=== PATIENT | female | born 1955 | race Caucasian/White ===

== ENCOUNTER 2024-10-18 18:56 | Emergency (ER) | payer MEDICARE, MEDICAID, SELFPAY ==
[2024-10-18 19:00] VITALS: BP 132/72; PULSE 70; RESP 16; TEMP 36.8; O2SAT 99
[2024-10-18 19:12] VITALS: BP 132/72; PULSE 72; RESP 16; TEMP 36.8; O2SAT 100
[2024-10-18 19:52] VITALS: BP 110/67; PULSE 62; RESP 16; TEMP 36.9; O2SAT 99
--- NOTE | 2024-10-18 20:58 | ED.GENADULT ---
HPI - General Adult General Chief complaint: Unspecified Stated complaint: CLOGGED URINARY CATHETER Time Seen by Provider: 10/18/24 19:35 History of Present Illness HPI narrative: patient is a 69-year-old female who presents emergency department with chief complaint of clogged pulling. Patient reports that she has a suprapubic catheter reports that it occasionally gets clogged patient reports she flushes of daily and reports that today she had a lot of sediment and would not drain. The patient reports he has discomfort feeling as though her bladder is full of urine. Related Data Allergies Allergy/AdvReac Type Severity Reaction Status Date / Time codeine Allergy Unknown rash Verified 02/07/19 13:01 Review of Systems Review of Systems: A 10 system review of systems was completed on the patient and is negative except for what is stated in the HPI. Nursing and ancillary documentation was reviewed. [facility] Past Medical History Medical History Reis catheter in place Pneumonia HTN (hypertension) Diabetes mellitus Surgical History Surgical History Hx of appendectomy Social History Social History Smoking status: Former smoker Exam Narrative: GENERAL: Well-appearing, well-nourished, and in no acute distress. HEAD: Normocephalic, atraumatic. EYES: PERRLA and EOMI. ENT: Nares clear, no rhinorrhea or epistaxis. Mucous membranes moist. NECK: Supple. CHEST: Clear to auscultation. No respiratory distress. HEART: Regular rate and rhythm. No murmur heard. Normal peripheral pulses. ABDOMEN: Soft, nontender, nondistended, normal active bowel sounds. Suprapubic catheter in place not draining a urine EXTREMITIES: Normal range of motion. No edema. SKIN: Warm, dry, no rash. NEURO: No focal deficits. Alert and oriented x3. PSYCH: Normal mood and affect. Course Vital Signs Vital signs: Vital Signs Temperature 36.8 C 10/18/24 19:00 Pulse Rate 70 10/18/24 19:00 Respiratory Rate 16 10/18/24 19:00 Blood Pressure 132/72 10/18/24 19:00 Pulse Oximetry 99 10/18/24 19:00 Oxygen Delivery Room Air 10/18/24 19:00 Temperature 36.9 C 10/18/24 19:52 Pulse Rate 62 10/18/24 19:52 Respiratory Rate 16 10/18/24 19:52 Blood Pressure 110/67 10/18/24 19:52 Pulse Oximetry 99 10/18/24 19:52 Oxygen Delivery Room Air 10/18/24 19:00 Procedures Catheter Insertion (Urinary) Urinary Catheter 1: Date of insertion: 10/18/24 Time of insertion: 21:00 Reason for placing: Yes Reason for placing indwelling catheter: Acute urinary retention Patient has the following: other ( suprapubic catheter) Antiseptic solution prep: Povidone-Iodine Topical anesthesia used: No Catheter type/location: Suprapubic Size (Upper Sorbian): 12 Catheter balloon size (mL): 10 Catheter balloon amount: 10 Results: successfully catheterized-immediate flow Procedure performed: without complications Medical Decision Making MDM Narrative Medical decision making narrative: differential diagnosis includes urinary catheter obstruction. The Reis catheter was attempted to be flushed without success. Reis catheter was exchanged by myself Vital Signs Vital Signs: Vital Signs Temperature 36.8 C 10/18/24 19:00 Pulse Rate 70 10/18/24 19:00 Respiratory Rate 16 10/18/24 19:00 Blood Pressure 132/72 10/18/24 19:00 Pulse Oximetry 99 10/18/24 19:00 Oxygen Delivery Room Air 10/18/24 19:00 Temperature 36.9 C 10/18/24 19:52 Pulse Rate 62 10/18/24 19:52 Respiratory Rate 16 10/18/24 19:52 Blood Pressure 110/67 10/18/24 19:52 Pulse Oximetry 99 10/18/24 19:52 Oxygen Delivery Room Air 10/18/24 19:00 Discharge Plan Discharge Clinical Impression: Obstructed suprapubic catheter Qualifiers: Encounter type: initial encounter Qualified Code(s): T83.090A - Other mechanical complication of cystostomy catheter, initial encounter Patient Disposition: Home, Self-Care Condition: Stable Instructions: Antibiotic Form, How to Care for Your Suprapubic Catheter (DC) Patient Language: Belizean Follow-up/Referrals: Elise,Elva Cha DO [Primary Care Provider] - Time of Disposition: 21:02
[2024-10-19 01:49] VITALS: BP 113/75; PULSE 65; RESP 17; O2SAT 98
[2024-10-19 06:36] VITALS: BP 125/83; PULSE 70; RESP 19; O2SAT 98
--- NOTE | 2024-10-19 06:45 | PC.NURSE ---
This RN has been checking on pt hourly. pt resting at this time
== END 2024-10-19 09:50 | disposition home or self-care (01) ==
PROVIDERS: Emergency Provider Emergency Medicine; PCP Student in an Organized Health Care Education/Training Program
DX: T83.090A Other mechanical complication of cystostomy catheter, initial encounter (principal); I10 Essential (primary) hypertension; E11.9 Type 2 diabetes mellitus without complications; Z87.01 Personal history of pneumonia (recurrent); Z87.891 Personal history of nicotine dependence; Y84.6 Urinary catheterization as the cause of abnormal reaction of the patient, or of later complication, without mention of misadventure at the time of the procedure
CPT/HCPCS: 51702; 51705; 99283

== ENCOUNTER 2024-10-24 16:54 | Emergency (ER) | payer MEDICARE, MEDICAID, SELFPAY ==
[2024-10-24 17:09] VITALS: BP 154/72; PULSE 77; RESP 16; TEMP 36.6; O2SAT 100
--- NOTE | 2024-10-24 19:17 | ED.FEMALEGU ---
HPI - Female Genitourinary General Chief complaint: Urogenital-Female Stated complaint: Clogged suprapubic catheter-pain at insertion site Time Seen by Provider: 10/24/24 18:28 History of Present Illness HPI Narrative: 69-year-old pleasant female with a past medical history including chronic suprapubic catheter. She presents to the emergency department today with a chief complaint of clot catheter. She states that the catheter has been placed for some time and is not new but she did have exchange several days ago in this emergency department. She reports that she previously had higher size including 18 [place]er catheters but was downsized to a 12 [place] catheter several months ago. Patient denies any fever, chills, abdominal pain, back pain. States she does not feel like she is having urinary infection but states that her bladder feels full with a clogged catheter today. Related Data Allergies Allergy/AdvReac Type Severity Reaction Status Date / Time codeine Allergy Unknown rash Verified 02/07/19 13:01 Review of Systems Review of Systems: As reviewed [facility] HPI [facility] Past Medical History Medical History Reis catheter in place Pneumonia HTN (hypertension) Diabetes mellitus Surgical History Surgical History Hx of appendectomy Social History Social History Smoking status: Former smoker Exam Narrative: GENERAL: [Well-appearing, well-nourished, and in no acute distress.] HEAD: [Normocephalic, atraumatic.] EYES: [PERRLA and EOMI.] ENT: Nares clear, no rhinorrhea or epistaxis. Mucous membranes moist. NECK: Supple. CHEST: [Clear to auscultation. No respiratory distress.] HEART: [Regular rate and rhythm]. No murmur heard. [Normal peripheral pulses.] ABDOMEN: [Soft, nondistended], [nontender], [No rigidity or guarding] suprapubic catheter in place, not draining any urine at this time. No overlying skin changes erythema, no tenderness, induration or skin breakdown. EXTREMITIES: Normal range of motion. [No edema.] SKIN: Warm, dry, no rash. NEURO: [No focal deficits]. Alert and oriented [x3.] PSYCH: [Normal mood and affect.] Course Vital Signs Vital signs: Vital Signs Temperature 36.6 C 10/24/24 17:09 Pulse Rate 77 10/24/24 17:09 Respiratory Rate 16 10/24/24 17:09 Blood Pressure 154/72 H 10/24/24 17:09 Pulse Oximetry 100 10/24/24 17:09 Oxygen Delivery Room Air 10/24/24 17:09 Temperature 36.6 C 10/24/24 17:09 Pulse Rate 77 10/24/24 17:09 Respiratory Rate 16 10/24/24 17:09 Blood Pressure 154/72 H 10/24/24 17:09 Pulse Oximetry 100 10/24/24 17:09 Oxygen Delivery Room Air 10/24/24 17:09 Procedures Catheter Insertion (Urinary) Urinary Catheter 1: Date of insertion: 10/24/24 Time of insertion: 20:00 Reason for placing: Yes (Clogged previous SP cath) Reason for placing indwelling catheter: Acute urinary retention Patient has the following: other (Suprapubic catheter) Bladder scan/ultrasound used before catheterization: No Topical anesthesia used: No Catheter type/location: Suprapubic Size ([place] Islander): 14 Catheter balloon size (mL): 10 Catheter balloon amount: 10 Results: successfully catheterized-immediate flow Procedure performed: without complications MDM - Female Genitourinary MDM Narrative Medical decision making narrative: 69-year-old female with history of chronic indwelling suprapubic catheter. Patient presents today with a clogged catheter. She has a 12 [place]er catheter placed but had larger sizes including 18 [place] previously without any issues. She states her catheters are being clogged despite flushes at home. She lives at home and her daughter takes good care of her. She denies any UTI symptoms such as fever, chills, back pain or any other concerns. Her examination is reassuring. She has normal vital signs. Reis catheter was attempted to be flushed without success so we replaced at bedside. I replaced the catheter myself under sterile technique and used a 14 [place]er catheter with good insertion and return of clear fluid. Urinalysis was sent and consistent with a urinary tract infection. Culture was sent and she was given a dose of Bactrim prior to discharge with a short course of Bactrim p.o.. Patient stable and safe for discharge at this time with outpatient follow-up. Medical Records Attestation: I reviewed the patient's medical records. Lab Data Attestation: I reviewed the patient's lab results. Discharge Plan Discharge Clinical Impression: Obstructed suprapubic catheter, Urinary tract infection Patient Disposition: Home, Self-Care Condition: Stable Instructions: Antibiotic Form, Urinary Tract Infection in Women (ED) Additional Instructions: Weeks change of catheter with a slightly larger one including a 14 [place]er catheter that was placed easily. You do have a urinary infection which will treat with oral antibiotics. Follow-up with your regular outpatient primary care provider. Return with any new or worsening concerns. Patient Language: Chilean Prescriptions: New sulfamethoxazole-trimethoprim [Bactrim DS] 800-160 mg tablet 1 tablet PO Q12H Qty: 14 0RF Follow-up/Referrals: Elise,Elva Cha DO [Primary Care Provider] - Time of Disposition: 20:27
[2024-10-24 20:18] LABS: Add Urine Microscopic? YES; Appearance Urine Cloudy (Clear); Bacteria Urine 4+ /hpf; Bilirubin Urine Negative (Negative); Blood Urine 2+ (Negative); Color Urine Yellow (Yellow); Glucose Urine UA Negative (Negative); Ketones Urine Negative (Negative); Leukocyte Esterase Ur 2+ LEU/UL (Negative); Nitrate Urine Negative (Negative); Non Pathogenic Casts 0-2; Protein Urine Trace mg/dL (Negative); Specific Grav Ur 1.006 (1.001-1.035); Squamous Epithelial Cell Urine None Seen /hpf (Few); WBC Urine 21-50 /hpf (0-3)
[2024-10-24] MEDS: SULFAMETHOXAZOLE/TRIMETHOPRIM 800/160 MG DS TABLET 1 TAB PO (20:53)
[2024-10-24 20:57] VITALS: BP 146/70; PULSE 74; RESP 16; TEMP 36.7; O2SAT 99
[2024-10-25 00:57] VITALS: BP 142/68; PULSE 80; RESP 18; TEMP 37; O2SAT 100
[2024-10-25 09:24] VITALS: BP 123/62; PULSE 64; RESP 16; TEMP 37.1; O2SAT 95
== END 2024-10-25 10:49 | disposition home or self-care (01) ==
PROVIDERS: Emergency Provider Student in an Organized Health Care Education/Training Program; PCP Student in an Organized Health Care Education/Training Program
DX: T83.090A Other mechanical complication of cystostomy catheter, initial encounter (principal); N39.0 Urinary tract infection, site not specified; I10 Essential (primary) hypertension; E11.9 Type 2 diabetes mellitus without complications; Z87.01 Personal history of pneumonia (recurrent); Z87.891 Personal history of nicotine dependence; Y84.6 Urinary catheterization as the cause of abnormal reaction of the patient, or of later complication, without mention of misadventure at the time of the procedure
CPT/HCPCS: 51700; 51705; 81001; 87086; 99283; A9270

== ENCOUNTER 2024-12-04 17:47 | Emergency (ER) | payer MEDICARE, MEDICAID, SELFPAY ==
[2024-12-04 17:49] VITALS: BP 146/82; PULSE 85; RESP 17; TEMP 36.4; O2SAT 98
--- NOTE | 2024-12-04 17:54 | ED_ITS ---
HPI - Female Genitourinary General Chief complaint: Urogenital-Female Stated complaint: catheter problems Time Seen by Provider: 12/04/24 17:48 Source: patient Mode of arrival: EMS Limitations: no limitations History of Present Illness HPI Narrative: Patient scheduled to change her Reis catheter tomorrow. Patient normally change her Reis catheter every 2 weeks. Patient telling me that the catheter is not draining since mottler machine feeder. Was lower abdominal distension. She denies any fever or chills or nausea or vomiting Related Data Allergies Allergy/AdvReac Type Severity Reaction Status Date / Time codeine Allergy Unknown rash Verified 12/04/24 17:55 Review of Systems Review of Systems: All systems reviewed & are unremarkable except as noted in HPI and below PMFSH Past Medical History Medical History Reis catheter in place Pneumonia HTN (hypertension) Diabetes mellitus Surgical History Surgical History Hx of appendectomy Social History Social History Smoking status: Former smoker Exam Narrative: General appearance: Well-developed, well-nourished, does not look toxic Skin: Normal color Chest and respiratory: Airway patent, no respiratory distress, no accessory m uscle use Heart: Regular rate/rhythm Abdomen: Soft, nontender, no organomegaly, quiet bowel sounds suprapubic catheter in place, no drainage, no erythema, no rash. V Neurologic: Alert and oriented ?3, SET UP OPERATOR TOOL is normal as tested, no gross motor deficit Course Vital Signs Vital signs: Vital Signs Temperature 36.4 C 12/04/24 17:49 Pulse Rate 85 12/04/24 17:49 Respiratory Rate 17 12/04/24 17:49 Blood Pressure 146/82 H 12/04/24 17:49 Pulse Oximetry 98 12/04/24 17:49 Oxygen Delivery Room Air 12/04/24 17:49 Temperature 36.4 C 12/04/24 17:49 Pulse Rate 85 12/04/24 17:49 Respiratory Rate 17 12/04/24 17:49 Blood Pressure 146/82 H 12/04/24 17:49 Pulse Oximetry 98 12/04/24 17:49 Oxygen Delivery Room Air 12/04/24 17:49 Procedures Catheter Insertion (Urinary) Urinary Catheter 1: Date of insertion: 12/04/24 Time of insertion: 18:05 Reason for placing indwelling catheter: Acute urinary retention Bladder scan/ultrasound used before catheterization: No Topical anesthesia used: No Catheter type/location: Suprapubic Size (Romanian): 16 Catheter balloon amount: 10 Results: successfully catheterized-immediate flow Procedure performed: without complications Complications: None MDM - Female Genitourinary MDM Narrative Medical decision making narrative: Patient is scheduled for Reis catheter replacement tomorrow, patient is telling me that she have too much segment which causing intermittent obstruction. 16 gauge Reis catheter placed without any complication. 600 cc urine output patient feels much better compared to on arrival Differential Diagnosis Differential diagnosis: Likely other (Reis catheter obstruction) Critical Care Time Critical Care Time Critical Care Time: No Discharge Plan Discharge Clinical Impression: Acute urinary retention, Urinary catheter (Reis) change required Patient Disposition: [facility] Living Condition: Improved Instructions: Reis Catheter Placement and Care (ED), Acute Urinary Retention in Women (ED) Additional Instructions: Return if symptoms are worsening , call your family physician for appointment, take Tylenol as as needed for aches and pain, continue home medications. Patient Language: Lithuanian Prescriptions: No Action sulfamethoxazole-trimethoprim [Bactrim DS] 800-160 mg tablet 1 tablet PO Q12H Qty: 14 0RF Follow-up/Referrals: Elise,Elva Cha DO [Primary Care Provider] -
--- OUTSIDE RECORDS SUMMARY | 2024-12-04 18:04 | XMS_ITS | Encounter Summary ---
Author Organization [facility] Address [address] [place] [address] Phone Care Team Providers Care Education Adviser Name Role Phone Victoriano Reid MD Primary Care Provider [phone] Malissa Joe RN Unavailable Unavailable Malissa Joe RN Unavailable Unavailable Elva Olivares DO Primary Care Provider [phone] [place] CHIEF QUALITY OFFICER Unavailable Cabrera Smallwood MD Unavailable [phone] Reason for Visit * Reason Comments Medication Refill Encounter Details Date Type Department Care Team (Late st Contact Info) Description 11/04/2022 Refill [facility] - [facility] [address] [place] [address] Victoriano Reid MD [address] [place] [address] Medication Refill Social History Tobacco Use Types Packs/Day Years Used Date Smoking Tobacco: Every Day Cigarettes Smokeless Tobacco: Never Alcohol Use Standard Drinks/Week Comments Not Currently 0 (1 standard drink = 0.6 oz pur e alcohol) PHQ-2 Answer Date Recorded Total Score - Questions 1-9 0 12/14 Education Answer Date Recorded What is the highest level of school you have completed or the highest degree you have received? GED or equivalent 12/2020 Sexually Active Control Partners Comments Not Currently Comments No Sex and Gender Information Value Date Recorded Sex Assigned at Not on file Legal Sex Female 5:08 PM CDT Gender Identity Not on file Sexual Orientation Not on file documented as of this encounter Miscellaneous Notes * Telephone Encounter - Camilla Hauser RN - 11/06/2022 8:27 AM CST Medication failed the protocol, provider to review and approve the medication order if appropriate. Requested Prescriptions Pending Prescriptions Disp Refills gabapentin (NEURONTIN) 300 MG Capsule [Pharmacy Med Name: GABAPENTIN 300MG CAPSULES] 180 Capsule Sig: TAKE 2 CAPSULES BY MOUTH EVERY 8 HOURS Not Delegated - Anticonvulsants Excluding Benzodiazepines Protocol Failed - 11/04/2022 3:44 PM Failed - This refill cannot be delegated Passed - Visit with relevant provider in past 12 months or upcoming 90 days Recent Visits Date Type Provider Dept 09/19/22 Office Visit Victoriano Reid MD [facility] 01/05/22 Office Visit Nia Abbott, SUZY [facility] Showing recent visits within past 365 days and meeting all other requirements Future Appointments No visits were found meeting these conditions. Showing future appointments within next 90 days and meeting all other requirements PARAMEDIC documented in this encounter Plan of Treatment Upcoming Encounters Date Type Department Care Team (Late st Contact Info) Description 01/02/2025 10:30 AM CDT Procedure Visit [facility] [address] [place] [address] Cabrera Yadav MD [address] [facility] [address] [place] [address] 01/09/2025 1:00 PM CDT Office Visit [facility] - [facility] - [place] [address] [facility] [place] [address] Elva Olivares, DO 2 [facility] 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) documented in this encounter Additional Health Concerns Assessment Noted Time PHQ-9 Depression Total Score: 0 08/15/20 21 10:00 AM CDT documented as of this encounter Care Teams Education Adviser Relationship Specialty Start Date End Date Victoriano Reid MD PCP - General Family Medicine 06/19/19 06/29/24 Elva Olivares DO 2 [facility] [address] [place] [address] PCP - General Family Medicine 07/01/24 Malissa Joe RN [place] Nurse Emergency Nurse 12/03/23 12/03/23 Malissa Joe RN [place] Nurse Emergency Nurse 12/05/23 12/05/23 [place], CHIEF QUALITY OFFICER [place] Emergency Nurse 11/03/24 Cabrera Yadav MD [address] [facility] [address] [place] [address] Consulting Physician Urology 11/07/24 documented as of this encounter
--- OUTSIDE RECORDS SUMMARY | 2024-12-04 18:04 | XMS_ITS | Encounter Summary ---
Author Organization [facility] Address [address] [place] [address] Phone Care Team Providers Care Line And Frame Poler Name Role Phone Victoriano Reid MD Primary Care Provider [phone] Malissa Joe RN Unavailable Unavailable Malissa Joe RN Unavailable Unavailable Elva Olivares DO Primary Care Provider [phone] [place] BATHROOM TILING PROFESSIONAL Unavailable Cabrera Smallwood MD Unavailable [phone] Reason for Visit * Reason Comments Medication Refill Encounter Details Date Type Department Care Team (Late st Contact Info) Description 08/28/2022 Refill [facility] - Family Medicine [facility] [address] [place] [address] Victoriano Reid MD [address] [place] [address] Medication Refill Social History Tobacco Use Types [...] on file Sexual Orientation Not on file COVID-19 Exposure Response Date Recorded In the last 10 days, have yo u been in contact with someone who was confirmed or suspected to have Coronavirus/COVID-19? No / Unsure 08/13/2022 12:47 PM CDT documented as of this encounter Miscellaneous Notes * Telephone Encounter - Yara Peacock RN - 08/28/2022 11:03 AM MANAGER FILE Medication failed the protocol, provider to review and approve the medication order if appropriate. Requested Prescriptions Pending Prescriptions Disp Refills Benzonatate 200 MG Capsule [Pharmacy Med Name: BENZONATATE 200MG CAPSULES] 60 Capsule Sig: Take 1 Capsule by mouth every 4 hours as needed for Cough. Not Delegated - Anti-Tussives Protocol Failed - 08/28/2022 10:27 AM Failed - This refill cannot be delegated Passed - Visit with relevant provider in past 12 months or upcoming 90 days Recent Visits Date Type Provider Dept 01/05/22 Office Visit Nia Abbott PAC [facility] [place] Showing recent visits within past 365 days and meeting all other requirements Future Appointments Date Type Provider Dept 08/29/22 Appointment Victoriano Reid MD [facility] [place] Showing future appointments within next 90 days and meeting all other requirements GER FILE documented in this encounter Plan of Treatment Upcoming Encounters Date Type Department Care Team (Late st Contact Info) Description 01/02/2025 10:30 AM CDT Procedure Visit [facility] [address] [place] [address] Cabrera Yadav MD [address], [address] [address] 01/09/2025 1:00 PM CDT Office Visit [facility] - [facility] - [place] [address] [place] [address] Elva Olviares DO [address] [facility] [address] [place] [address] documented as of this encounter Visit Diagnoses Not on filedocumented in this encounter Additional Health Concerns Assessment Noted Time PHQ-9 Depression Total Score: 0 08/15/20 21 10:00 AM CDT documented as of this encounter Care Teams Line And Frame Poler Relationship Specialty Start Date End Date Victoriano Reid MD PCP - General Family Medicine 06/19/19 06/29/24 Elva Olivares DO [address] [facility] [address] [place] [address] PCP - General Family Medicine 07/01/24 Malissa Joe, RN [place] Nurse Local Hazmat Driver 12/03/23 12/03/23 Malissa Joe, RN [place] Nurse Local Hazmat Driver 12/05/23 12/05/23 [place], BATHROOM TILING PROFESSIONAL [place] Home Service Director Local Hazmat Driver 11/03/24 Cabrera Yadav MD [address] [address] Consulting Physician Urology 11/07/24 documented as of this encounter
--- OUTSIDE RECORDS SUMMARY | 2024-12-04 18:04 | XMS_ITS | Encounter Summary ---
Author Organization [facility] Address [address] [place] [address] Phone Care Team Providers Care Order Desk Caller Name Role Phone Victoriano Reid MD Primary Care Provider [phone] Elva Olivares DO Primary Care Provider [phone] [facility] Unavailable Cabrera Smallwood MD Unavailable [phone] Reason for Visit * Reason Comments Medication Refill Encounter Details Date Type Department Care Team (Late Contact Info) Description 04/18/2024 Refill [facility] - Family Medicine [facility] [address] [place] [address] Victoriano Reid MD [address] [place] [address] Medication Refill Social History Tobacco Use Types Packs/Day Years Used Date Smoking Tobacco: Every Day Cigarettes 2 15 Smokeless Tobacco: Never Alcohol Use Standard Drinks/Week Comments Not Currently 0 (1 standard drink = 0.6 oz pur e alcohol) [facility] Utilities Answer Date Recorded In the past 12 months has [employer] electric, gas, oil, or water company threatened to shut off services in your home? Yes 04/15/2024 Social Connection and Isolat ion Panel [NHANES] Answer Date Recorded In a typical week, how many times do you talk on the phone with family, friends, or neighbors? More than three times a week 04/15/2024 How often do you get togethe r with friends or relatives? Twice a week 04/15/2024 How often do you attend chur ch or anabaptist services? Never 04/15/2024 Do you belong to any clubs o r organizations such as yarsanism groups, unions, fraternal or athletic groups, or school groups? No 04/15/2024 How often do you attend meet ings of the clubs or organizations you belong to? Never 04/15/2024 Are you , , di vorced, , never , or living with a partner? 04/15/2024 AUDIT-C Answer Date Recorded Q1: How often do you have a drink containing alcohol? Never 04/15/2024 Q2: How many drinks containi ng alcohol do you have on a typical day when you are drinking? Patient does not drink Q3: How often do you have si x or more drinks on one occasion? Never 04/15/2024 Overall Financial Resource Strain (CARDIA) Answe r Date Recorded How hard is it for you to pa y for the very basics like food, housing, medical care, and heating? Patient declined 04/15/2024 PHQ-2 Answer Date Recorded Total Score - Questions 1-9 0 12/14 [facility] - Occupational Stress Questionnaire Answer Date Recorded Do you feel stress - tense, restless, nervous, or anxious, or unable to sleep at night because your mind is troubled all the time - these days? Only a little 04/15/2024 Exercise Vital Sign Answer Date Recorde d On average, how many days pe r week do you engage in moderate to strenuous exercise (like a brisk walk)? 0 days 04/15/2024 On average, how many minutes do you engage in exercise at this level? 0 min 04/15/2024 Hunger Vital Sign Answer Date Recorded Within the past 12 months, y ou worried that your food would run out before you got the money to buy more. Never true Within the past 12 months, t he food you bought just didn't last and you didn't have money to get more. Sometimes true 11/2023 PRAPARE - Transportation Answer Date Re corded In the past 12 months, has l ack of transportation kept you from medical appointments or from getting medications? Yes 11/2023 In the past 12 months, has l ack of transportation kept you from meetings, work, or from getting things needed for daily living? Yes 04/15/2024 Housing Stability Vital Sign Answer Saleem e Recorded In the last 12 months, was t here a time when you were not able to pay the mortgage or rent on time? No 12/20/2023 In the last 12 months, how many places have you lived? 1 12/20/2023 In the last 12 months, was t here a time when you did not have a steady place to sleep or slept in a long term (including now)? No 12/20/2023 Housing Stability Vital Sign Answer Saleem e Recorded In the last 12 months, was t here a time when you were not able to pay the mortgage or rent on time? No 04/15/2024 Number of Times Moved in the Last Year Not on fi le 04/15/2024 At any time in the past 12 m [facility], were you homeless or living in a long term (including now)? No 04/15/2024 Education Answer Date Recorded What is the highest level of school you have completed or the highest degree you have received? GED or equivalent 12/2020 Sexually Active Control Partners Comments Not Currently None Female Comments No Sex and Gender Information Value Date Recorded Sex Assigned at Not on file Legal Sex Female 5:08 PM CDT Gender Identity Not on file Sexual Orientation Not on file documented as of this encounter Miscellaneous Notes * Telephone Encounter - Adelaida Medina RN - 04/18/2024 11:23 AM CDT duplicate documented in this encounter Plan of Treatment Upcoming Encounters Date Type Department Care Team (Late st Contact Info) Description 01/02/2025 10:30 AM CDT Procedure Visit [facility] [address] [place] [phone] Cabrera Yadav MD #[address], [facility] [address] [place] [address] 01/09/2025 1:00 PM CDT Office Visit [facility] - [facility] - [address] [place] [address] Elva Olivares DO [address] [facility] [facility] [address] [address] [place] [address] documented as of this encounter Visit Diagnoses Not on filedocumented in this encounter Additional Health Concerns Assessment Noted Time PHQ-9 Depression Total Score: 0 08/15/20 21 10:00 AM CDT documented as of this encounter Care Teams Order Desk Caller Relationship Specialty Start Date End Date Victoriano Reid MD PCP - General Family Medicine 06/19/19 06/29/24 Elva Olivares DO [address] [facility] [address] [place] [address] PCP - General Family Medicine 07/01/24 [place], [facility] Bad Cloth Checker Pr Intern 11/03/24 Cabrera Yadav MD #[address], [facility] [address] [place] [address] Consulting Physician Urology 11/07/24 documented as of this encounter
--- OUTSIDE RECORDS SUMMARY | 2024-12-04 18:04 | XMS_ITS | Encounter Summary ---
Author Organization [facility] Address [address] [place] [address] Phone Care Team Providers Care Document Control Manager Name Role Phone Victoriano Reid MD Primary Care Provider [phone] Malissa Joe RN Unavailable Unavailable Malissa Joe RN Unavailable Unavailable Elva Olivares DO Primary Care Provider [phone] [place] [employer] Unavailable Unaabdirizaki Cabrera Dodge MD Unavailable [phone] Encounter Details Date Type Department Care Team (Late st Contact Info) Description 04/20/2020 [facility] [address] [place] [id number] Victoriano Reid MD [address] [place] [address] Urinary tract infection, site not specified Social History Tobacco Use Types Packs/Day Years Used Date Smoking Tobacco: Every Day Cigarettes Smokeless Tobacco: Never Alcohol Use Standard Drinks/Week Comments Not Currently 0 (1 standard drink = 0.6 oz pur e alcohol) PHQ-2 Answer Date Recorded PHQ-2 Score 0 06/19/2019 Sexually Active Control Partners Comments Not Currently Comments No Sex and Gender Information Value Date Recorded Sex Assigned at Not on file Legal Sex Female 5:08 PM CDT Gender Identity Not on file Sexual Orientation Not on file documented as of this encounter Plan of Treatment Upcoming Encounters Date Type Department Care Team (Late st Contact Info) Description 01/02/2025 10:30 AM CDT Procedure Visit [facility] [address] [facility] [place] [id number] Cabrera Yadav MD [address] [facility] [place] [address] [place] [address] 01/09/2025 1:00 PM CDT Office Visit [facility] Group - Family Medicine - [place] [address] [facility] [place] [address] Elva Olivares, DO 2 [facility] [address] [place] [address] documented as of this encounter Procedures Procedure Name Priority Date/Time Associated Diagnosis Comments URINALYSIS REFLEX IF INDICATED BY ABNORMAL RESULTS Routine 04/20/2020 3:50 PM CDT Urinary tract infection, site not specified CULTURE, URINE Routine 04/20/2020 3:50 PM CDT Urinary tract infection, site not specified documented in this encounter Results * CULTURE, URINE (04/20/2020 3:50 PM CDT) CULTURE RESULTS ESCHERICHIA COLI 04/24/2020 9:18 AM CDT [facility] CULTURE RESULTS ESCHERICHIA COLI 04/24/2020 9:18 AM CDT [facility] Urine Non-Phlebotomy Collection / Unknown 04/20/2020 3:50 PM CDT 04/20/2020 4:57 PM CDT Narrative Organism Antibiotic Method Susceptibility Escherichia coli Ampicillin [facility] IIB <=2 mcg/ml: Susceptible Escherichia coli Ampicillin/sulbactam [facility] IIB <=2 mcg/ml: Susceptible Escherichia coli Cefazolin [facility] II[facility] <=4 mcg/ml: Susceptible Escherichia coli Cefepime [facility] II[facility] <=1 mcg/ml: Susceptible Escherichia coli Ceftriaxone [facility] II[facility] <=1 mcg/ml: Susceptible Escherichia coli Gentamicin [facility] II[facility] <=1 mcg/ml: Susceptible Escherichia coli Levofloxacin [facility] <=0.12 mcg/ml: Susceptible Escherichia coli Meropenem [facility] II[facility] <=0.25 mcg/ml: Susceptible Escherichia coli Nitrofurantoin [facility] IIB 64 mcg/ml: Intermediate Escherichia coli Piperacillin/Tazobactam [facility] II B <=4 mcg/ml: Susceptible Escherichia coli Tobramycin [facility] IIB <=1 mcg/ml: Susceptible Escherichia coli Trimeth/Sulfamethoxazole [facility] I IB <=20 mcg/ml: Susceptible Escherichia coli Ampicillin [facility] IIB >=32 mcg/ml: Resistant Escherichia coli Ampicillin/sulbactam [facility] IIB 8 mcg/ml: Susceptible Escherichia coli Cefazolin [facility] IIB >=64 mcg/ml: Resistant Escherichia coli Cefepime [facility] IIB <=1 mcg/ml: Susceptible Escherichia coli Ceftriaxone [facility] IIB <=1 mcg/ml: Susceptible Escherichia coli Gentamicin [facility] IIB <=1 mcg/ml: Susceptible Escherichia coli Levofloxacin [facility] IIB <=0.12 mcg/ml: Susceptible Escherichia coli Meropenem [facility] IIB <=0.25 mcg/ml: Susceptible Escherichia coli Nitrofurantoin [facility] IIB 32 mcg/ml: Susceptible Escherichia coli Piperacillin/Tazobactam [facility] II B <=4 mcg/ml: Susceptible Escherichia coli Tobramycin [facility] IIB <=1 mcg/ml: Susceptible Escherichia coli Trimeth/Sulfamethoxazole [facility] I IB <=20 mcg/ml: Susceptible us Victoriano Reid MD MICROBIOLOGY - GENERAL ORDERABLE S Final Result [facility] [address] [facility] [place] [address], * (ABNORMAL) URINALYSIS REFLEX IF INDICATED BY ABNORMAL RESULTS (04/20/2020 3:50 PM CDT) [facility] Signature SPECIFIC GRAVITY 1.010 1.003 - 1.030 04/20/2020 5:20 PM CDT [facility] URINE PH 8.0 5.0 - 9.0 04/20/2020 5:20 PM CDT [facility] WBC ESTERASE 500 /uL(A) Negative 04/20/2020 5:20 PM CDT [facility] NITRITE Positive(A) Negative 04/20/2020 5:20 PM CDT [facility] PROTEIN, RANDOM URINE Negative Negative 04/20/2020 5:20 PM CDT [facility] URINE GLUCOSE, QUAL Negative Negative 04/20/2020 5:20 PM CDT [facility] URINE KETONES Negative Negative 04/20/2020 5:20 PM CDT [facility] UROBILINOGEN Normal Normal mg/dL 04/20/2020 5:20 PM CDT [facility] URINE BILIRUBIN Negative Negative 0 5:20 PM [facility] BLOOD 10 /uL(A) Negative josefa/ul 04/20/2020 5:20 PM CDT [facility] URINALYSIS COLOR Straw 04/20/20 5:20 PM CDT [facility] URINALYSIS CLARITY Very Cloudy 04/20/2020 5:20 PM CDT [facility] WBC (Urine) 21-50(A) Negative, 0-5 /hpf 04/20/2020 5:20 PM CDT [facility] UR[facility] RBC'S 0-2 Negative, 0-2 /hpf 04/20/2020 5:20 PM CDT [facility] EPITHELIAL CELLS Small amount /lpf 2019 5:20 PM CDT [facility] BACTERIA, URINE Packed(A) Negative /hpf 04/20/2020 5:20 PM CDT [facility] Urine Non-Phlebotomy Collection / Unknown 04/20/2020 3:50 PM CDT 04/20/2020 4:57 PM CDT us Victoriano Reid MD URINE ORDERABLES Final Result [facility] [address] [place] [address] documented in this encounter Visit Diagnoses Diagnosis Urinary tract infection, site not specified documented in this encounter Additional Health Concerns Infection Onset Date Last Indicated Resolved Time 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 [address] [place] [address] PCP - General Family Medicine 07/01/24 Malsisa Joe, RN [place] Nurse Brand Marketing Intern 12/03/23 12/03/23 Malissa Joe, RN [place] Nurse Brand Marketing Intern 12/05/23 12/05/23 [place], [employer] [place] Sales And Marketing Intern Brand Marketing Intern 11/03/24 Cabrera Yadav MD #2 [facility] [address] [place] [address] Consulting Physician Urology 11/07/24 documented as of this encounter
--- OUTSIDE RECORDS SUMMARY | 2024-12-04 18:04 | XMS_ITS | Referral Summary ---
Author Organization [facility] Address [address] [place] [address] Care Team Providers Care Director Of Investigations Name Role Phone Victoriano Reid MD Primary Care Provider [phone] Rashaun Peoples MD Unavailable [phone] Edelmira Pimentel MD Unavailable [phone] Allergies Active Allergy Reactions Criticality Noted Date Comments Calista Manley Medium 02/22/2019 Medications metFORMIN (GLUCOPHAGE) 500 mg tablet Take 1 tablet (500 mg total) by mouth 2 (two) times a day with meals 60 tablet 11 9 Active Additional Information Patient taking differently:500 mg oral,(No frequency reported), Indications: cutting 500mg 1/2. 250mg BID, Reported on 07/09/2019 loratadine (CLARITIN) 10 mg tablet Take 10 mg by mouth daily 9 Active montelukast (SINGULAIR) 10 mg tablet Take 10 mg by mouth nightly 9 Active potassium chloride ER (KLOR-CON) 10 mEq CR tablet Take 1 tablet/capsule (10 mEq total) by mouth 2 (two) times a day 60 tablet/capsu le 11 9 Active gabapentin (NEURONTIN) 300 mg capsule Take 1 capsule (300 mg total) by mouth nightly 30 capsule 3 9 Active TRUE METRIX GLUCOSE TEST STRIP strip TEST QID. 1 9 Active ciprofloxacin (CILOXAN) 0.3 % ophthalmic solution Administer 2 drops into affected eye(s) every 4 (four) hours Active famotidine (PEPCID) 40 mg tablet 11 9 Active fluticasone propionate (FLONASE) 50 mcg/actuation nasal spray 2 sprays daily 3 9 Active loperamide (IMODIUM) 2 mg capsule Take by mouth 9 Active witch malka (KAMI, WITLESA GREENEL,) 50 % pads, medicated Apply topically 2 (two) times a day as needed Active MICRO THIN LANCETS 33 gauge misc TEST QID. 3 9 Active phenyleph-min oil-petrolatum 0.25-14-74.9 % ointment Insert 1 Dose into the rectum 3 (three) times a day as needed 9 Active apixaban (ELIQUIS) 5 mg tabletIndicati ons:Venous Thrombosis,as long as platelets are above 100 Take 1 tablet (5 mg total) by mouth 2 (two) times a day 60 tablet 3 9 Active ergocalciferol (VITAMIN D) 50,000 unit capsule Take 1 capsule (50,000 Units total) by mouth every 7 days 4 capsule 3 9 Active acyclovir (ZOVIRAX) 400 mg tablet 0 Active Premarin vaginal cream APPLY 1 GRAM INTRAVAGINALLY FOR 2 WEEKS THEN DECREASE TO 0.5 GRAMS TWICE A WEEK 1 Active ibuprofen (ADVIL,MOTRIN) 600 mg tablet TAKE 1 TABLET BY MOUTH EVERY 8 HOURS NEEDED FOR MODERATE TO SEVERE PAIN 1 Active oxybutynin XL (DITROPAN-XL) 10 mg 24 hr tablet Take 10 mg by mouth daily 1 Active trimethoprim (TRIMPEX) 100 mg tablet TAKE 1 TABLET BY MOUTH EVERY EVENING. DO NOT. 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 S/p glucarpidase - will d/c when MTX clears; CTM daily level. 0.2 on 08/02. R-CHOP completed - OI ppx: ACV on hold with BIJAN Assessment & Plan (06/17/2019 10:31 AM CDT): -diagnosed February 2019 -Treatment with R-CHOP + HD MTX -titrate bicarb to keep urine pH greater than 7 -Currently admitted for C4D15 HD MTX, will d/c when MTX clears; R-CHOP will start outpatient Sunday, patient will receive Neulasta post R-CHOP -OI ppx: ACV Assessment & Plan (04/16/2019 12:43 PM CDT): Initial diagnosis 02/25/2019. 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 This was complicated by bilateral LE paralysis and urinary and bowel incontinence post op. She follows with Dr. Peoples. - She is currently receiving R-CHOP completed cycle 2 of On 04/02/19. -med onc c/s; appreciate recs Assessment & Plan (03/14/2019 10:35 AM CDT): -CT chest abdomen pelvis without clear evidence of local or distant disease -PET 03/07 shows hypermetabolic bone marrow of 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 -TTE shows grade 1 diastolic dysfunction and normal LVEF - day 3 of RCHOP, getting rituxan today and will discharge Assessment & Plan (03/13/2019 11:03 AM CDT): -CT chest abdomen pelvis without clear evidence of local or distant disease -PET 03/07 shows hypermetabolic bone marrow of 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 -TTE shows grade 1 diastolic dysfunction and normal LVEF - day 2 of [facility] Assessment & Plan (03/12/2019 10:31 AM CDT): -CT chest abdomen pelvis without clear evidence of local or distant disease -PET 03/07 shows hypermetabolic bone marrow of 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 -TTE shows grade 1 diastolic dysfunction and normal LVEF - starting [facility] inpatient today Assessment & Plan (03/11/2019 4:28 PM CDT): -CT chest abdomen pelvis without clear evidence of local or distant disease -PET 03/07 shows hypermetabolic bone marrow of 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 -TTE shows grade 1 diastolic dysfunction and normal LVEF - starting [facility] inpatient tomorrow Vitamin D deficiency 03/03/2019 Overview (03/03/2019): 25-D level 7 Assessment & Plan (07/23/2019 2:37 PM CDT): Vitamin D 50,000 units weekly Assessment & Plan (06/13/2019 1:23 PM CDT): -Vitamin D 50,000 units weekly Assessment & Plan (03/13/2019 9:32 AM CDT): Continue ergocalciferol 50,000 units weekly and advise to continue indefinitely, depending on f/u level in 3 months. Also important in the setting of glucocorticoid therapy. Assessment & Plan (03/11/2019 12:46 PM CDT): Continue ergocalciferol 50,000 units weekly and advise to continue indefinitely, depending on f/u level in 3 months. Also important in the setting of glucocorticoid therapy. Assessment & Plan (03/07/2019 8:44 AM CDT): Continue ergocalciferol 50,000 units weekly and advise to continue indefinitely, depending on f/u level in 3 months. Also important in the setting of glucocorticoid therapy. Assessment & Plan (03/05/2019 9:39 AM CDT): Continue ergocalciferol 50,000 units weekly and advise to continue indefinitely, depending on f/u level in 3 months. Assessment & Plan (03/04/2019 8:33 AM CDT): To start ergocalciferol 50,000 units weekly and advise to continue indefinitely, depending on f/u level in 3 months. Assessment & Plan (03/03/2019 8:46 AM CDT): To start ergocalciferol 50,000 units weekly and advise to continue indefinitely, depending on f/u level in 3 months. Hypercarbia 02/25/2019 Paralysis of both lower limbs (CMS/HCC) 02/26/20 19 Assessment & Plan (08/05/2019 8:28 AM CDT): 2/2 to spinal cord compression from disease -Works with PT BID at home and family daily - ordered for admission. -Reports that she is starting to regain feeling in BLE -Failed void trial (07/26) so armijo replaced -DVT ppx with apixaban --> change to Lovenox w/ AMS Assessment & Plan (06/17/2019 10:32 AM CDT): -2/2 to spinal cord compression -Works with PT BID at home and family daily -Reports that she is starting to regain feeling in BLE -Permanent armijo 2/2 to lack of urge to urinate Assessment & Plan (04/16/2019 12:42 PM CDT): Complication of thoracic tumor DLBCL. Unable to ambulate since February 2019. S/p spinal surgery 02/25. -replace armijo on admission -pt has fecal containment device, C Diff negative on 04/15 -continue home meds baclofen/gabapentin Assessment & Plan (03/14/2019 4:00 PM CDT): Plan is to start chemotherapy which will involve high-dose prednisone. NPH coverage has been added for steroid coverage. Assessment & Plan (03/14/2019 10:30 AM CDT): Seconday to T8 mass causing spianl canal stenosis s/p decompression by ortho on 02/25 as above -Persistent LE paralysis with some return of sensation, also c/b urinary retention and constipation -PT/OT, will likely need acute rehab upon discharge - Per Ortho: No weight bearing restrictions, but full assistance needed for transfers. - Continue heel protection boot when in bed. - Aggressive bowel regimen -armijo present for neurogenic bladder--> failed armijo void trial Assessment & Plan (03/13/2019 11:01 AM CDT): Seconday to T8 mass causing spianl canal stenosis s/p decompression by ortho on 02/25 as above -Persistent LE paralysis with some return of sensation, also c/b urinary retention and constipation -PT/OT, will likely need acute rehab upon discharge - Per Ortho: No weight bearing restrictions, but full assistance needed for transfers. - Continue heel protection boot when in bed. - Aggressive bowel regimen -armijo present for neurogenic bladder--> will attempt void trial today Assessment & Plan (03/13/2019 9:32 AM CDT): Plan is to start chemotherapy which will involve high-dose prednisone. NPH coverage has been added for steroid coverage. Assessment & Plan (03/12/2019 1:40 PM CDT): Plan is to start chemotherapy which will involve high-dose prednisone. NPH coverage has been added for steroid coverage. Assessment & Plan (03/12/2019 10:31 AM CDT): Seconday to T8 mass causing spianl canal stenosis s/p decompression by ortho on 02/25 as above -Persistent LE paralysis with some return of sensation, also c/b urinary retention and constipation -PT/OT, will likely need acute rehab upon discharge - Per Ortho: No weight bearing restrictions, but full assistance needed for transfers. - Continue heel protection boot when in bed. - Aggressive bowel regimen -armijo present for neurogenic bladder Assessment & Plan (03/11/2019 4:27 PM CDT): Seconday to T8 mass causing spianl canal stenosis s/p decompression by ortho on 02/25 as above -Persistent LE paralysis with some return of sensation, also c/b urinary retention and constipation -PT/OT, will likely need acute rehab upon discharge - Per Ortho: No weight bearing restrictions, but full assistance needed for transfers. - Continue heel protection boot when in bed. - Aggressive bowel regimen -armijo present for neurogenic bladder Assessment & Plan (03/11/2019 12:46 PM CDT): Plan is to start chemotherapy which likely will involve high-dose prednisone. Assessment & Plan (03/10/2019 5:41 PM CDT): Seconday to T8 mass causing spianl canal stenosis s/p decompression by ortho on 02/25 as above -Persistent LE paralysis with some return of sensation, also c/b urinary retention and constipation -Continue PT/OT, will likely need acute rehab upon discharge - Per Ortho: No weight bearing restrictions, but full assistance needed for transfers. - Continue heel protection boot when in bed. - Aggressive bowel regimen--> had BM on 03/10 -armijo present for neurogenic bladder Assessment & Plan (03/09/2019 12:16 PM CDT): Seconday to T8 mass causing spianl canal stenosis s/p decompression by ortho on 02/25 as above -Persistent LE paralysis with some return of sensation, also c/b urinary retention and constipation -Continue PT/OT, will likely need acute rehab upon discharge - Per Ortho: No weight bearing restrictions, but full assistance needed for transfers. - Continue heel protection boot when in bed. - Aggressive bowel regimen -armijo present for neurogenic bladder Assessment & Plan (03/08/2019 11:47 AM CDT): Seconday to T8 mass causing spianl canal stenosis s/p decompression by ortho on 02/25 as above -Persistent LE paralysis with some return of sensation, also c/b urinary retention and constipation -Continue PT/OT, will likely need acute rehab upon discharge - Per Ortho: No weight bearing restrictions, but full assistance needed for transfers. - Continue heel protection boot when in bed. - Aggressive bowel regimen -armijo present for neurogenic bladder Assessment & Plan (03/07/2019 8:43 AM CDT): Plan is to start chemotherapy which likely will involve high-dose prednisone. Assessment & Plan (03/06/2019 7:16 PM CDT): - s/p decompression at the level of T7-T8 and biopsy. Fixation by Orthopedics who is following peripherally. - Serial exams by orthopedics. Severe weakness and sensory deficits with urine retention, armijo remains in place. She has minimal movement of the toes and reduced but stable sensation in both legs. Possible improvement in T8-T11 area today. Improved bowel and bladder sensation. - completed steroid taper on 03/03 - PT/OT. She will certainly need placement for aggressive PT/OT. Discharge plans for acute inpatient rehab at [facility]. - No weight bearing restrictions, but full assistance needed for transfers. - Post op care, pain control. - Heel protection boot when in bed. Air mattress ordered but not here yet. - Aggressive bowel regimen as above Assessment & Plan (03/06/2019 1:45 PM CDT): Dexamethasone discontinued. Plan is to start chemotherapy. Assessment & Plan (03/05/2019 6:23 PM CDT): - s/p decompression at the level of T7-T8 and biopsy. Fixation by Orthopedics who is following peripherally. - Serial exams by orthopedics. Severe weakness and sensory deficits with urine retention, armijo remains in place. She has minimal movement of the toes and reduced but stable sensation in both legs. Possible improvement in T8-T11 area today. Improved bowel and bladder sensation. - completed steroid taper on 03/03 - PT/OT. She will certainly need placement for aggressive PT/OT. Discharge plans for acute inpatient rehab at [facility]. - No weight bearing restrictions, but full assistance needed for transfers. - Post op care, pain control. - Heel protection boot when in bed. Air mattress ordered but not here yet. -Aggressive bowel regimen as above Assessment & Plan (03/04/2019 6:13 PM CDT): - s/p decompression at the level of T7-T8 and biopsy. Fixation by Orthopedics who is following peripherally. - Serial exams by orthopedics. Severe weakness and sensory deficits with urine retention, armijo remains in place. She has minimal movement of the toes and reduced but stable sensation in both legs. Possible improvement in T8-T11 area today. Improved bowel and bladder sensation. - Steroid taper with IV decadron today to 2mg today then off. - PT/OT as recommended by Orthopedics. She will certainly need placement for aggressive PT/OT. Insurance ([place]) pending. - No weight bearing restrictions, but full assistance needed for transfers. - Post op care, pain control. - Heel protection boot when in bed. Air mattress ordered. Assessment & Plan (03/03/2019 4:46 PM CDT): - s/p decompression at the level of T7-T8 and biopsy. Fixation by Orthopedics who is following peripherally. - Serial exams by orthopedics. Severe weakness and sensory deficits with urine retention, armijo remains in place. She has minimal movement of the toes and reduced but stable sensation in both legs. Possible improvement in T8-T11 area today. Improved bowel and bladder sensation. - Steroid taper with IV decadron today to 2mg today then off. - PT/OT as recommended by Orthopedics. She will certainly need placement for aggressive PT/OT. [place] ([place] pending. - No weight bearing restrictions, but full assistance needed for transfers. - Post op care, pain control. - Heel protection boot when in bed. Air mattress ordered. Assessment & Plan (03/02/2019 2:49 PM CDT): Remains on dexamethasone. Plan is to continue to taper dex, which will complicate glycemic control Assessment & Plan (03/02/2019 12:09 PM CDT): - s/p decompression at the level of T7-T8 and biopsy. Fixation by Orthopedics who is following peripherally. - Serial exams by orthopedics. Severe weakness and sensory deficits with urine retention, armijo remains in place. She has minimal movement of the toes and reduced but stable sensation in both legs. Possible improvement in T8-T11 area today. Improved bowel and bladder sensation. - Steroid taper with IV decadron today to 2mg Q12, then stop late tomorrow. - PT/OT as recommended by Orthopedics. She will certainly need placement for aggressive PT/OT. [place] ([place]. - No weight bearing restrictions, but full assistance needed for transfers. - Post op care, pain control. - Heel protection boot when in bed. Air mattress ordered. Assessment & Plan (03/01/2019 12:15 PM CDT): - s/p decompression at the level of T7-T8 and biopsy. Fixation by Orthopedics who is following. - Serial exams by orthopedics. Severe weakness and sensory deficits with urine retention, armijo remains in place. She has minimla movement of the toes and reduced but stable sensation in both legs with improved rectal sensation today. - Steroid taper with IV decadron today to 3mg Q6, then further reductions tomorrow. - PT/OT as recommended by Orthopedics. She will certainly need placement for aggressive PT/OT. [place] ([place]. - No weight bearing restrictions, but full assistance needed for transfers. - Post op care, pain control. Assessment & Plan (02/28/2019 6:24 PM CDT): Currently receiving Dexamethasone Q 6 hours. Plan is to continue to taper dex, which will complicate glycemic control Assessment & Plan (02/28/2019 12:23 PM CDT): - s/p decompression at the level of T7-T8 and biopsy. Fixation by Orthopedics. - Serial exams by orthopedics. Severe weakness and sensory deficits with urine retention. - Steroid taper with IV decadron today to 4mg Q6 then further reductions tomorrow. - PT/OT as recommended by Orthopedics. She may need placement for aggressive PT/OT. - Weight bearing restrictions. - Post op care, pain control. Assessment & Plan (02/27/2019 6:13 PM CDT): Currently receiving Dexamethasone 16 mg Q 6 hours. Plan is to continue to taper dex, which will complicate glycemic control Assessment & Plan (02/26/2019 4:29 PM CDT): Currently receiving Dexamethasone 10 mg Q 6 hours. Plan is to transition to po steroids on 02/27/19 with tapering dose. Spinal stenosis of thoracic region 02/25/2019 Tobacco abuse 02/23/2019 Assessment & Plan (07/23/2019 2:40 PM CDT): not interested in smoking cessation counseling -refused patch Assessment & Plan (06/13/2019 1:23 PM CDT): -not interested in smoking cessation counseling -refused patch Assessment & Plan (04/16/2019 12:38 PM CDT): Current smoker, Smoking 1/2 pack per day currently. -consider nicotine patch Assessment & Plan (03/13/2019 9:30 AM CDT): We have advised and counseled regarding the importance of stopping smoking Assessment & Plan (03/07/2019 8:44 AM CDT): We have advised and counseled regarding the importance of stopping smoking Assessment & Plan (03/06/2019 7:18 PM CDT): -Nicotine patch -Counseled on cessation Assessment & Plan (03/06/2019 1:46 PM CDT): Again advised and counseled regarding the importance of stopping smoking Assessment & Plan (03/05/2019 6:24 PM CDT): -Nicotine patch -Counseled on cessation Assessment & Plan (03/05/2019 9:37 AM CDT): Again dvised and counseled regarding the importance of stopping smoking Assessment & Plan (03/04/2019 6:14 PM CDT): -Nicotine patch -Counseled on cessation Assessment & Plan (03/04/2019 8:33 AM CDT): Advised and counseled regarding the importance of stopping smoking Assessment & Plan (03/03/2019 4:45 PM CDT): -Nicotine patch -Counseled on cessation Assessment & Plan (03/03/2019 8:43 AM CDT): Advised and counseled regarding the importance of stopping smoking Assessment & Plan (02/23/2019 9:18 AM CDT): -Nicotine patch -Counseled on cessation Hypertension, essential 02/23/2019 Assessment & Plan (03/06/2019 7:16 PM CDT): - In setting of pain. BP improved as pain improves. - No need for treatment now. Assessment & Plan (03/05/2019 6:21 PM CDT): - In setting of pain. BP improved as pain improves. - No need for treatment now. Assessment & Plan (03/04/2019 6:13 PM CDT): - In setting of pain. BP improved as pain improves. - No need for treatment now. Assessment & Plan (03/03/2019 4:46 PM CDT): - In setting of pain. BP improved as pain improves. - No need for treatment now. Assessment & Plan (03/02/2019 12:11 PM CDT): - In setting of pain. BP improved as pain improves. - No need for treatment now. Assessment & Plan (03/01/2019 12:16 PM CDT): - In setting of pain. Unclear baseline. BP improved today. - For now, will control pain and follow trend. Assessment & Plan (02/28/2019 12:24 PM CDT): - In setting of pain. Unclear baseline. BP variable today. - For now, will control pain and follow trend. Assessment & Plan (02/23/2019 9:07 AM CDT): -likely in setting of pain. Unclear baseline. No S4 on exam -For now, will control pain and follow trend. Diabetes mellitus type II, uncontrolled 02/24/20 19 Overview (03/06/2019): 63 y/o woman without sig PMH, presents with acute LE weakness, back pain and urinary retention, s/p spinal decompression. Newly diagnosed type 2 diabetes. A1C 8.9%. Assessment & Plan (07/23/2019 2:38 PM CDT): Takes Metformin at home -SSI ordered while inpatient Assessment & Plan (06/17/2019 10:28 AM CDT): -Takes Metformin at home -HDSSI ordered while inpatient-->resume Metformin at discharge -Has order to take NPH 20 units daily while on Prednisone for steroid-induced hyperglycemia Assessment & Plan (04/17/2019 10:51 AM CDT): On 02/23 HgbA1C 8.9%. Difficult blood glucose control previously with new diagnosis as well as steroids with chemo administration protocols. At home reportedly checking blood glucose 3x per day and taking 10U with meals only and metformin. -SSI with Q4 hour blood glucose -BG 110s-140s Assessment & Plan (03/14/2019 4:07 PM CDT): Over the previous 24 hours, blood glucose not at goal with range of 159-330 mg/dl with 64 units TDD insulin and sitagliptin 100 mg. Prednisone 100 mg QD continues. Severe hyperglycemia likely due to insufficient insulin dosing for steroid dose. Target inpatient blood glucose is 100-180 mg/dl. Fasting blood glucose this morning was 149 mg/dl. Pre-lunch blood glucose was 236 mg/dl. Glycemic management complicated by high dose steroids, variable oral intake and insulin naivete. As glycemia not at goal, likely due to insufficient insulin dosing for high dose steroids, we recommend increasing both NPH insulin and bolus insulin to optimize glycemic control. We will continue to intensely monitor blood glucose and titrate insulin as needed to optimize glycemic control to avoid hypoglycemic/hyperglycemic events. Recommendations: - Increase Humalog from 5 units to 10 units TID with meals - Continue HDSSI - Continue Januvia - Prednisone 100 mg daily x 5 days along with NPH 28 -> 34 units with steroid dose x 5 days started 03/12/19 DISCHARGE RECOMMENDATIONS: - Continue current diabetes/insulin regimen (Humalog 10 units TID with meals, HDSSI QID, and NPH 34 units daily) while prednisone 100 mg is ordered. - Once steroids are finished, continue Januvia 100 mg QD, Humalog 3 units TID with meals, HDSSI QID - We anticipate she can be discharged home on Januvia only from rehab facility. Recommendations for diabetes management were discussed with the primary team. For questions regarding this patient today, please call Janice Adams NP at [phone]. If after hours, please contact the Diabetes Fellow at [phone]. Assessment & Plan (03/14/2019 10:32 AM CDT): This is a new diagnosis this admission with A1c 8.9.Initially required NPH while on dexamethasone, but now weaned to januvia + SSI per endocrine rec's -Uptitrate insulin as needed -Patient currently on Januvia + SSI; incr lispro to 7 TID with meals; incr NPH from 28 to 34; Will need to continue increased dose of insulin while at [facility] through Sunday which is last day of pred. After that will go back to previous dosing. Will discuss with endocrine before discharge today. Assessment & Plan (03/13/2019 11:03 AM CDT): This is a new diagnosis this admission with A1c 8.9.Initially required NPH while on dexamethasone, but now weaned to januvia + SSI per endocrine recc's -Uptitrate insulin as needed -Will continue on Januvia + SSI + lispro 5 TID with meals. Starting NPH 28 daily with steroids Assessment & Plan (03/13/2019 9:31 AM CDT): Glucose levels into the 300s yesterday after Prednisone 100 mg and NPH 20 units. Therefore needs more NPH with prednisone pulse. Will closely monitor blood glucose pattern and adjust insulin accordingly. Recommendations: -continue Humalog 5 units TID with meals -Continue HDSSI -Continue Januvia -Prednisone 100 mg daily x 5 days along with NPH 20 -> 28 units with steroid dose x 5 days started 03/12/19 Assessment & Plan (03/12/2019 1:39 PM CDT): Over the previous 24 hours, blood glucose in good margin of safety, but not at goal with range of 181-208 mg/dl with 25 units TDD insulin and sitagliptin 100 mg. Target inpatient blood glucose is 100-180 mg/dl. Fasting blood glucose this morning was 141 mg/dl. She will be starting Prednisone 100 mg daily x 5 days along with NPH 20 units daily for steroid coverage today (03/12/19). As her blood glucose readings were not quite within target range yesterday, will increase scheduled meal time Humalog dose. Will closely monitor blood glucose pattern and adjust insulin accordingly. Recommendations: -Increase Humalog 3 -->5 units TID with meals -Continue HDSSI -Continue Januvia -Prednisone 100 mg daily x 5 days along with NPH 20 units with steroid dose x 5 days started 03/12/19 Recommendations for diabetes management were discussed with the primary team. For questions regarding this patient today, please call Crista Montgomery NP at [phone]. If after hours, please contact the Diabetes Fellow at [phone]. Assessment & Plan (03/12/2019 10:31 AM CDT): This is a new diagnosis this admission with A1c 8.9.Initially required NPH while on dexamethasone, but now weaned to januvia + SSI per endocrine rec's -Uptitrate insulin as needed -Will continue on Januvia + SSI + lispro 3 TID with meals. Starting NPH 20 daily with steroids Assessment & Plan (03/11/2019 4:27 PM CDT): This is a new diagnosis this admission with A1c 8.9.Initially required NPH while on dexamethasone, but now weaned to januvia + SSI per endocrine recc's -Uptitrate insulin as needed -Will continue on Januvia + SSI + lispro 3 TID with meals. Will need NPH with steroids when RCHOP starts tomorrow Assessment & Plan (03/11/2019 12:46 PM CDT): Glycemic control reasonable, but likely to have significant changes based on final path evaluation. IF she does not start R-CHOP therapy or steroids, then recommend continuing current therapy. IF she DOES start R-CHOP with prednisone 100 mg daily, then recommend NPH 20 units daily along with the prednisone, plus Humalog MDSS. Will likely need a higher dose, but need to start within a good margin of safety. Assessment & Plan (03/10/2019 5:41 PM CDT): This is a new diagnosis this admission with A1c 8.9.Initially required NPH while on dexamethasone, but now weaned to januvia + SSI per endocrine rec's -Uptitrate insulin as needed -Will continue on Januvia + SSI. Adding on lispro 3 TID with meals Assessment & Plan (03/09/2019 12:17 PM CDT): This is a new diagnosis this admission with A1c 8.9.Initially required NPH while on dexamethasone, but now weaned to januvia + SSI per endocrine rec's -Uptitrate insulin as needed -Will continue on Januvia + SSI for now -Diabetes education Assessment & Plan (03/08/2019 11:48 AM CDT): This is a new diagnosis this admission with A1c 8.9.Initially required NPH while on dexamethasone, but now weaned to januvia + SSI per endocrine rec's -Uptitrate insulin as needed -Will continue on Januvia + SSI for now -Diabetes education Assessment & Plan (03/07/2019 8:42 AM CDT): Glycemic control reasonable, but likely to have significant changes based on final path evaluation. IF she does not start R-CHOP therapy or steroids, then recommend continuing current therapy. IF she DOES start R-CHOP with prednisone 100 mg daily, then recommend NPH 20 units daily along with the prednisone, plus Humalog MDSS. Will likely need a higher dose, but need to start within a good margin of safety. Assessment & Plan (03/06/2019 7:16 PM CDT): - New diagnosis this admission. A1c 8.9. - Status post NPH and mealtime scheduled insulin in setting of steroid induced hyperglycemia. (NPH and Dexamethasone now off). - currently on Januvia and sliding scale insulin with somewhat adequate control. - Diabetes education following. - Endocrine following and making necessary adjustments. Recs appreciated. - Close monitoring with adjustments to steroid doses. - may be able to discharge without insulin Assessment & Plan (03/06/2019 1:50 PM CDT): Over the previous 24 hours, blood glucose in good margin of safety, but not at goal with range of 130-191 mg/dl with 8 units TDD insulin and sitagliptin 100 mg. Target inpatient blood glucose is 100-180 mg/dl. Fasting blood glucose this morning was 137 mg/dl; pre-lunch blood glucose was 124 mg/dl. Glycemic management complicated by intermittent NPO status for testing, variable oral intake and insulin naivete. Glucoses have been within a reasonable margin of safety with current management, therefore we recommend continuing the current regimen. We will continue to intensely monitor blood glucose and titrate insulin as needed to optimize glycemic control to avoid hypoglycemic/hyperglycemic events. RECOMMENDATIONS: -Continue Januvia 100 mg daily -HDSSI QID and 0200 -monitor BS QID and 0200 Patient has been seen by CDE. Tentative D/C recommendations D/C regimen to be determined closer to discharge - likely oral agents only She will follow up with her PCP post-discharge Recommendations for diabetes management were discussed with the primary team. For questions regarding this patient today, please call Janice Adams NP at [phone]. If after hours, please contact the Diabetes Fellow at [phone]. Assessment & Plan (03/05/2019 6:21 PM CDT): - New diagnosis this admission. A1c 8.9. - Status post NPH and mealtime scheduled insulin in setting of steroid induced hyperglycemia. - currently on Januvia and sliding scale insulin with somewhat adequate control. - Diabetes education following. - Endocrine following and making necessary adjustments. Recs appreciated. - Close monitoring with adjustments to steroid doses. -may be able to discharge without incident Assessment & Plan (03/05/2019 9:36 AM CDT): Management complicated by steroid wean but now scheduled to go off dexamethasone altogether. Glucoses have been within a reasonable margin of safety with current management. RECOMMENDATIONS: -consider adding Januvia 100 mg daily starting today. -monitor [facility] Patient has been seen by CDE. Tentative D/C recommendations D/C regimen to be determined closer to discharge She will follow up with her PCP post-discharge Assessment & Plan (03/04/2019 6:13 PM CDT): - New diagnosis this admission. A1c 8.9. - now of steroids and NPH. - Last dose of steroids and NPH 03/03 - Lispro 8 units with meals plus slide. - Likely to require insulin after discharge, given her elevated A1c on admission. - Diabetes education following. - Endocrine following and making necessary adjustments. Recs appreciated. - Close monitoring with adjustments to steroid doses. Assessment & Plan (03/04/2019 8:32 AM CDT): Management complicated by steroid wean but now scheduled to go off dexamethasone altogether. Glucoses have been within a reasonable margin of safety with current management. RECOMMENDATIONS: -discontinue NPH as Dexamethasone being discontinue -continue Humalog 8 units with meals plus sliding scale, adding Januvia 100 mg daily. Consider discontinuing Humalog altogether, depending on glucose control after the previous Dexamethasone wears off -monitor [facility] Patient has been seen by CDE. Tentative D/C recommendations D/C regimen to be determined closer to discharge She will follow up with her PCP post-discharge Assessment & Plan (03/03/2019 4:44 PM CDT): - New diagnosis this admission. A1c 8.9. - Good control with steroids on her current regimen with dose reductions in insulin as the steroid taper is ongoing. - Last dose of steroids and NPH today - Lispro 8 units with meals plus slide. - Likely to require insulin after discharge, given her elevated A1c on admission. - Diabetes education following. - Endocrine following and making necessary adjustments. Recs appreciated. - Close monitoring with adjustments to steroid doses. Assessment & Plan (03/03/2019 11:40 AM CDT): Management complicated by steroid wean but now scheduled to go off dexamethasone altogether. Glucoses have been within a reasonable margin of safety with current management. RECOMMENDATIONS: -discontinue NPH as Dexamethasone being discontinue -change from Humalog to sliding scale only, adding Januvia 100 mg daily -monitor BS QID -Please notify the diabetes team with any changes in steroid dosing. Patient has been seen by CDE. Tentative D/C recommendations D/C regimen to be determined closer to discharge She will follow up with her PCP post-discharge Assessment & Plan (03/02/2019 2:49 PM CDT): Patient with newly diagnosed diabetes, A1C of 8.9% with stress and glucocorticoid exacerbated hyperglycemia. Management complicated by steroid wean BS currently well controlled Dex weaned down to 2mg q12 today RECOMMENDATIONS: -Agree with reduction of NPH to 8 units q 12 with dexamethasone 2mg -agree with decrease in Humalog to 8 units tid -consider changing slide to mid dose QID -monitor BS QID -Please notify the diabetes team with any changes in steroid dosing. Patient has been seen by CD. Tentative D/C recommendations D/C regimen to be determined closer to discharge She will follow up with her PCP post-discharge Assessment & Plan (03/02/2019 12:07 PM CDT): - New diagnosis this admission. A1c 8.9. - Good control with steroids on her current regimen with dose reductions in insulin as the steroid taper is ongoing. - Continue NPH today 8 units Q12 hours as steroids are decreased today to 2 mg Q12. Will decrease further with steroid taper tomorrow. Stop NPH when steroid taper is completed tomorrow. - Lispro 8 units with meals plus slide. - Likely to require insulin after discharge, given her elevated A1c on admission. - Diabetes education following. - Endocrine following and making necessary adjustments. Recs appreciated. - Close monitoring with adjustments to steroid doses. Assessment & Plan (03/01/2019 12:13 PM CDT): - New diagnosis this admission. A1c 8.9. - Very good control with steroids on her current regimen with dose reductions in insulin as the steroid taper is ongoing. - Reducing NPH today to 8 units Q6 hours as steroids are decreased today to 3 mg Q6. Will decrease further with steroid taper. - Lispro 8 units with meals plus slide. - Likely to require insulin after discharge, however given her elevated A1c on admission. - Diabetes education following. - Endocrine following and making necessary adjustments. Recs appreciated. - Close monitoring with adjustments to steroid doses. Assessment & Plan (02/28/2019 6:24 PM CDT): Patient with newly diagnosed diabetes, A1C of 8.9% with stress and glucocorticoid exacerbated hyperglycemia. Oral intake remains variable, given recent surgery and poor dentition. BG at goal for inpatient status, which is 100-180 mg/dL. RECOMMENDATIONS: -Agree with reduction of NPH to 12 u q6 hrs and Humalog to 12 u TID AC - As dex is being reduced to 4 mg q6 hrs, would likely wean NPH to 8 u q6 hrs, and Humalog to 8 u TID, decrease sliding scale to MSSI -Accuchecks AC, HS and at 2 am -Please notify the diabetes team with any changes in steroid dosing. Pt needs CDE consult, since this is newly diagnosed DM. She will follow up with her PCP post-discharge Recommendations for diabetes management were discussed with the primary team. Call [phone] with questions on day of service only. If after hours or weekends, please contact the Diabetes Fellow at [phone], option #1 Assessment & Plan (02/28/2019 12:17 PM CDT): - New diagnosis. A1c 8.9. - Poor control with increased steroids for spinal lesion. - Reducing NPH today to 12 units Q6 hours as steroids are decreased today. Likely to decrease further with steroid taper. - Lispro 12 units with meals plus slide. - Likely to require insulin after discharge. - Diabetes education. - Endocrine following and making necessary adjustments. Recs appreciated. - Close monitoring with adjustments to steroid doses. Assessment & Plan (02/27/2019 6:12 PM CDT): Patient with newly diagnosed diabetes, A1C of 8.9% with stress and glucocorticoid exacerbated hyperglycemia. Oral intake remains variable, given recent surgery and poor dentition. BG above goal for inpatient status, which is 100-180 mg/dL. RECOMMENDATIONS: -Increase NPH from 15 to 17 units Q 6 hours with Dexamethasone 6 mg dose. The increase in NPH is modest, since dexamethasone is being down-titrated. Expect a 24 hour lab in glycemic response to decrease in dexamethasone dose -Increased Humalog from 10 to 12 units with meals, but prandial hyperglycemia persisted, will increase to 15 u with meals -HDSSI AC and HS -Accuchecks AC, HS and at 2 am -Please notify the diabetes team with any changes in steroid dosing. Recommendations for diabetes management were discussed with the primary team. Call [phone] with questions on day of service only. If after hours or weekends, please contact the Diabetes Fellow at [phone], option #1 Assessment & Plan (02/26/2019 4:31 PM CDT): Patient with newly diagnosed diabetes, A1C of 8.9% Over the past 24 hours, her glucose readings have not been in target range with readings of 124-323 mg/dl while on insulin drip. Target inpatient glucose range is 100-180 mg/dl. FBG this morning was 154 mg/dl. Glycemic control is complicated by steroids, variable po intake. Will transition from insulin drip to subcutaneous insulin dosing. Will closely monitor and make further recommendations according to her response. RECOMMENDATIONS: -Start NPH 15 units Q 6 hours with Dexamethasone dose. -Insulin drip can be discontinued 2 hours after first dose of NPH is given -Start Humalog 10 units with meals -Start HDSSI AC and HS -Accuchecks AC, HS and at 2 am -Please notify the diabetes team with any changes in steroid dosing. Recommendations for diabetes management were discussed with the primary team. For questions regarding this patient today, please call Crista Montgomery NP at [phone]. If after hours, please contact the Diabetes Fellow at [phone]. Assessment & Plan (02/24/2019 10:05 AM CDT): -New diagnosis. A1c 8.9 -LDSSI. 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 - Gabapentin and baclofen being held. Cipro DCd 08/01. - Head CT neg 07/28, repeat 08/01: neg - Ammonia level ok UTI (urinary tract infection ) due to urinary indwelling Armijo catheter ([facility]) 07/25/201907/16 Assessment & Plan (08/01/2019 10:43 AM CDT): Klebsiella oxytoca UTI; Bcx NGTD -Change cefepime to cipro (suceptible to) (07/27) Cipro DCd 08/01 with AMS and appropriate level of treatment. -Exchanged armijo catheter (07/26) -Recheck Urine C 07/29: NG BIJAN (acute kidney injury) 07/25/2019 Assessment & Plan (08/03/2019 4:40 PM CDT): Secondary to methotrexate. IV leucovorin. S/p glucarpidase (07/26); restarted IV leucovorin Continue sodium bicarb hydration Cr continues to downtrend. 0.72 on 08/02 Renally dose meds. Hold eloy, acyclovir, baclofen Open toe wound 07/23/2019 05/27/2021 Assessment & Plan (07/23/2019 4:05 PM CDT): Continue home care with wound cleanser and abx ointment. Conjunctivitis 07/23/2019 08/01/2019 Assessment & Plan (07/23/2019 4:05 PM CDT): Bilateral. Cipro drops. Bladder spasms 07/23/2019 07/25/2019 Assessment & Plan (07/23/2019 4:06 PM CDT): Regaining sensation to pelvis and noted bladder spasms with cloudy urine from armijo. - Ucx: Pending, continue oxybutinin Severe malnutrition ([facility]/HCC) 06/13/2019 05/27/2021 Severe malnutrition (CMS/HCC) 04/18/2019 05/20/2019 Acute hypoxemic respiratory failure 04/15/2019 05/20/2019 Assessment & Plan (04/17/2019 10:53 AM CDT): 11/16 pneumonia, PE and pulmonary edema, CT scan 04/15 showing aspiration PNA and RLL subsegmental PE -will change heparin gtt to lovenox -RVP + Rhinovirus -on Azithro, cefe and Vanc. Vanc level 04/16 at 0700 am = 11.9, dose increased to 1750 mg (q 12). Vanc trough tonight 04/17 at 2100 -on NC 2L, wean as tolerated -albuterol prn -LED on 04/16 with + DVT R popliteal and peroneal vein -TTE (04/16) with EF 74%, mild TR, SD; G1DD, normal RV size and function. -if respiratory status worsens add Earl for possible steno Leukocytosis 04/15/2019 05/20/2019 Assessment & Plan (04/17/2019 6:50 AM CDT): DDx includes PNA, neupogen (daughter states patient continues to administer) -C diff negative on 04/15 -Abx as described -Bld Cx 04/14 NGTD -UA 04/15 with insignificant growth -RVP + Rhinovirus -if respiratory condition worsens, add Earl for possible steno -improved today Rhinovirus 04/15/2019 05/20/2019 Assessment & Plan (04/16/2019 12:50 PM CDT): Rhinovirus + on nasal PCR 04/15/19 - supportive care Anxiety 04/10/2019 05/27/2021 Constipation 03/04/2019 05/20/2019 Assessment & Plan (03/14/2019 10:36 AM CDT): Stable. Patient having daily BMs. -Tolerating regular diet well -Continue bowel regimen senna, docusate, bisacodyl, miralax Assessment & Plan (03/13/2019 11:04 AM CDT): Stable. Patient having daily BMs. -Tolerating regular diet well -Continue bowel regimen senna, docusate, bisacodyl, miralax Assessment & Plan (03/12/2019 10:33 AM CDT): Stable. Patient having daily BMs. -Tolerating regular diet well -Continue bowel regimen senna, docusate, bisacodyl, miralax Assessment & Plan (03/11/2019 4:28 PM CDT): Stable. Patient having daily BMs. -Tolerating regular diet well -Continue bowel regimen senna, docusate, bisacodyl, miralax Assessment & Plan (03/10/2019 5:42 PM CDT): Stable. Patient having daily BMs. -Tolerating regular diet well -Continue bowel regimen senna, docusate, bisacodyl, miralax Assessment & Plan (03/09/2019 12:17 PM CDT): Stable. Patient having daily BMs. -Tolerating regular diet well -Continue bowel regimen senna, docusate, bisacodyl, miralax Assessment & Plan (03/08/2019 11:48 AM CDT): Stable. Patient having daily BMs. -Tolerating regular diet well -Continue bowel regimen senna, docusate, bisacodyl, miralax Assessment & Plan (03/06/2019 7:15 PM CDT): Significant constipation despite aggressive bowel regimen. Two additional bowel movements overnight. Repeat x-ray yesterday stable but still with significant stool burden. Suspect this is related to her recent spinal cord injury. KUB concerning for ileus although clinically exam is more consistent for constipation. -tolerating regular diet today -continue aggressive bowel regimen and electrolyte repletion Assessment & Plan (03/05/2019 6:20 PM CDT): Significant constipation despite aggressive bowel regimen. S/p enema yesterday with 2 BMs overnight. Repeat x-ray stable this morning but still with significant stool burden. Suspect this is related to her recent spinal cord injury. KUB concerning for ileus although clinically exam is more consistent for constipation. -tolerating regular diet today -continue aggressive bowel regimen and electrolyte repletion Assessment & Plan (03/04/2019 6:15 PM CDT): Significant constipation despite aggressive bowel regimen. Plan for enema today and repeat x-ray in the morning. May need CT abdomen pelvis if symptoms worsen to determine if she needs physical is impaction. Suspect this is related to her recent spinal cord injury. KUB concerning for ileus although clinically exam is more consistent for constipation. -start IV fluids, change diet to liquids, monitor and replete electrolytes aggressively. H/O recurrent pneumonia 03/03/2019 08/03/2019 Assessment & Plan (03/03/2019 11:42 AM CDT): Again, advised and counseled strongly to quit smoking. This could also complicate outpatient diabetes management High risk medication use 02/26/2019 Assessment & Plan (03/14/2019 4:00 PM CDT): Intensive insulin therapy in the setting of steroids and variable po intake increase the risk of glucose variability. High-dose steroids continue, affecting glycemic control. Will closely monitor glycemic pattern and adjust insulin accordingly to prevent hypo or hyperglycemia. Assessment & Plan (03/13/2019 9:32 AM CDT): Intensive insulin therapy in the setting of steroids and variable po intake increase the risk of glucose variability. Starting high-dose steroids, affecting glycemic control. Will closely monitor glycemic pattern and adjust insulin accordingly to prevent hypo or hyperglycemia. Assessment & Plan (03/12/2019 1:40 PM CDT): Intensive insulin therapy in the setting of steroids and variable po intake increase the risk of glucose variability. Starting high-dose steroids, affecting glycemic control. Will closely monitor glycemic pattern and adjust insulin accordingly to prevent hypo or hyperglycemia. Assessment & Plan (03/11/2019 12:46 PM CDT): Intensive insulin therapy in the setting of steroids and variable po intake increase the risk of glucose variability. Likely to start high-dose steroids, affecting glycemic control. Will closely monitor glycemic pattern and adjust insulin accordingly to prevent hypo or hyperglycemia. Assessment & Plan (03/07/2019 8:43 AM CDT): Intensive insulin therapy in the setting of steroids and variable po intake increase the risk of glucose variability. Likely to start high-dose steroids, affecting glycemic control. Will closely monitor glycemic pattern and adjust insulin accordingly to prevent hypo or hyperglycemia. Assessment & Plan (03/06/2019 1:44 PM CDT): Intensive insulin therapy in the setting of steroids and variable po intake increase the risk of glucose variability. Will closely monitor glycemic pattern and adjust insulin accordingly to prevent hypo or hyperglycemia. Assessment & Plan (03/05/2019 9:36 AM CDT): Intensive insulin therapy in the setting of steroids and variable po intake increase the risk of glucose variability. Will closely monitor glycemic pattern and adjust insulin accordingly to prevent hypo or hyperglycemia. Assessment & Plan (03/04/2019 8:33 AM CDT): Intensive insulin therapy in the setting of steroids and variable po intake increase the risk of glucose variability. Will closely monitor glycemic pattern and adjust insulin accordingly to prevent hypo or hyperglycemia. Assessment & Plan (03/03/2019 8:43 AM CDT): Intensive insulin therapy in the setting of steroids and variable po intake increase the risk of glucose variability. Will closely monitor glycemic pattern and adjust insulin accordingly to prevent hypo or hyperglycemia. Assessment & Plan (03/02/2019 2:49 PM CDT): Intensive insulin therapy in the setting of steroids and variable po intake increase the risk of glucose variability. Will closely monitor glycemic pattern and adjust insulin accordingly to prevent hypo or hyperglycemia. Assessment & Plan (02/28/2019 6:24 PM CDT): Intensive insulin therapy in the setting of steroids and variable po intake increase the risk of glucose variability. Will closely monitor glycemic pattern and adjust insulin accordingly to prevent hypo or hyperglycemia. Assessment & Plan (02/27/2019 6:13 PM CDT): Intensive insulin therapy in the setting of steroids and variable po intake increase the risk of glucose variability. Will closely monitor glycemic pattern and adjust insulin accordingly to prevent hypo or hyperglycemia. Assessment & Plan (02/26/2019 4:30 PM CDT): Intensive insulin therapy in the setting of steroids and variable po intake increase the risk of glucose variability. Will closely monitor glycemic pattern and adjust insulin accordingly to prevent hypo or hyperglycemia. 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 Ss/p decompression and fixation by Ortho on 02/25. 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 - starting [facility] on 03/12 Assessment & Plan (03/13/2019 11:04 AM CDT): MRI and CT spine 02/24 show T8 spinal mass with posterior extension causing severe spinal canal stenosis. Ss/p decompression and fixation by Ortho on 02/25. 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 - starting [facility] on 03/12 Assessment & Plan (03/12/2019 10:33 AM CDT): MRI and CT spine 02/24 show T8 spinal mass with posterior extension causing severe spinal canal stenosis. Ss/p decompression and fixation by Ortho on 02/25. 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 - starting [facility] on 03/12 Assessment & Plan (03/11/2019 4:28 PM CDT): MRI and CT spine 02/24 show T8 spinal mass with posterior extension causing severe spinal canal stenosis. Ss/p decompression and fixation by Ortho on 02/25. 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 Assessment & Plan (03/10/2019 5:41 PM CDT): MRI and CT spine 02/24 show T8 spinal mass with posterior extension causing severe spinal canal stenosis. Ss/p decompression and fixation by Ortho on 02/25. 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 -CT chest abdomen pelvis without clear evidence of local or distant disease -PET 03/07 shows hypermetabolic bone marrow of 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 -TTE shows grade 1 diastolic dysfunction and normal LVEF -Ortho okay with treatment 3 weeks post-op (03/18/19). Assessment & Plan (03/09/2019 12:16 PM CDT): MRI and CT spine 02/24 show T8 spinal mass with posterior extension causing severe spinal canal stenosis. Ss/p decompression and fixation by Ortho on 02/25. 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 -CT chest abdomen pelvis without clear evidence of local or distant disease -PET 03/07 shows hypermetabolic bone marrow of 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 -TTE shows grade 1 diastolic dysfunction and normal LVEF -Ortho okay with treatment 3 weeks post-op (03/18/19). Assessment & Plan (03/08/2019 11:46 AM CDT): MRI and CT spine 02/24 show T8 spinal mass with posterior extension causing severe spinal canal stenosis. Ss/p decompression and fixation by Ortho on 02/25. 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 -CT chest abdomen pelvis without clear evidence of local or distant disease -PET 03/07 shows hypermetabolic bone marrow of 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 -TTE shows grade 1 diastolic dysfunction and normal LVEF -In discussion with ortho, patient may need 3-6 weeks of time to heal before starting treatment. Will discuss chemotherapy planning. Assessment & Plan (03/06/2019 7:18 PM CDT): -s/p decompression and fixation by Orthopedics. As above. 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 -echo completed on 03/06, with grade 1 diastolic dysfunction otherwise normal -PET ordered and pending -HIV and hepatitis serologies negative Assessment & Plan (03/05/2019 6:24 PM CDT): -s/p decompression and fixation by Orthopedics. As above. -Pathology preliminary with concerns for high-grade B-cell malignancy -Oncology and Rad Onc following -per Oncology, plans are for transfer to [facility] for further care. -echo and PET ordered -HIV and hepatitis serologies pending Assessment & Plan (03/04/2019 6:14 PM CDT): - s/p decompression and fixation by Orthopedics. As above. - Pathology is still pending. Concern for a metastatic malignant process but imaging has not identified a primary lesion and SPEP/immunofixation shows no monoclonal abnormalities. - Oncology and Rad Onc were previously consulted, they are awaiting biopsy results. Will follow up tomorrow as results are still not available. Assessment & Plan (03/03/2019 4:45 PM CDT): - s/p decompression and fixation by Orthopedics. As above. - Pathology is still pending. Concern for a metastatic malignant process but imaging has not identified a primary lesion and SPEP/immunofixation shows no monoclonal abnormalities. - Oncology and Rad Onc were previously consulted, they are awaiting biopsy results. Will follow up tomorrow as results are still not available. Assessment & Plan (03/02/2019 12:10 PM CDT): - s/p decompression and fixation by Orthopedics. As above. - Pathology is still pending. Concern for a metastatic malignant process but imaging has not identified a primary lesion and SPEP/immunofixation shows no monoclonal abnormalities. - Oncology and Rad Onc were previously consulted, they are awaiting biopsy results. Will follow up Sunday. Assessment & Plan (03/01/2019 12:15 PM CDT): - s/p decompression and fixation by Orthopedics. As above. - Pathology is still pending. Concern for a metastatic malignant process but imaging has not identified a primary lesion and SPEP/immunofixation shows no monoclonal abnormalities. - Oncology and Rad Onc were previously consulted, they are awaiting biopsy results. Assessment & Plan (02/28/2019 12:20 PM CDT): - s/p decompression and fixation by Orthopedics. - Pathology is still pending. Concern for a metastatic malignant process but imaging has not identified a primary lesion and SPEP/immunofixation shows no monoclonal abnormalities. - Oncology and Rad Onc were previously consulted, they are awaiting biopsy results. Back pain of thoracolumbar region 02/23/2019 05/27/2021 Assessment & Plan (07/23/2019 2:37 PM CDT): Tylenol prn -Does not like the way Oxy makes her feel Assessment & Plan (06/13/2019 1:01 PM CDT): -Tylenol prn -Does not like the way Oxy makes her feel Assessment & Plan (03/14/2019 10:36 AM CDT): Well controlled. -Continue Oxycodone PRN and Gabapentin 300mg TID for neuropathic component - Continue turns q2h. PT/OT Assessment & Plan (03/13/2019 11:03 AM CDT): Well controlled. -Continue Oxycodone PRN and Gabapentin 300mg TID for neuropathic component - Continue turns q2h. PT/OT Assessment & Plan (03/12/2019 10:31 AM CDT): Well controlled. -Continue Oxycodone PRN and Gabapentin 300mg TID for neuropathic component - Continue turns q2h. PT/OT Assessment & Plan (03/11/2019 4:27 PM CDT): Well controlled. -Continue Oxycodone PRN and Gabapentin 300mg TID for neuropathic component - Continue turns q2h. PT/OT Assessment & Plan (03/10/2019 5:41 PM CDT): Well controlled. -Continue Oxycodone PRN and Gabapentin 300mg TID for neuropathic component - Continue turns q2h. PT/OT Assessment & Plan (03/09/2019 12:17 PM CDT): Well controlled. -Continue Oxycodone PRN and Gabapentin 300mg TID - Continue turns q2h. PT/OT Assessment & Plan (03/08/2019 11:48 AM CDT): Well controlled. -Continue Oxycodone PRN and Gabapentin 300mg TID - Continue turns q2h. PT/OT Assessment & Plan (03/06/2019 7:14 PM CDT): - Oxycodone PRN. PT/OT. - Gabapentin 300mg TID. - Turns q2h. Air mattress ordered but not delivered yet. Assessment & Plan (03/05/2019 6:18 PM CDT): - Oxycodone PRN. PT/OT. - Gabapentin 300mg TID. - Turns q2h. Air mattress. Assessment & Plan (03/04/2019 6:13 PM CDT): - Oxycodone PRN. PT/OT. - Gabapentin 300mg TID. - Turns as needed. Air mattress. Assessment & Plan (03/03/2019 4:44 PM CDT): - Oxycodone PRN. PT/OT. - Gabapentin 300mg TID. - Turns as needed. Air mattress. Assessment & Plan (03/02/2019 12:10 PM CDT): - Oxycodone PRN. PT/OT. - Gabapentin 300mg TID. - Turns as needed. Air mattress. Assessment & Plan (03/01/2019 12:15 PM CDT): - Oxycodone PRN. PT/OT. - Gabapentin 300mg TID. - Turns as needed. Assessment & Plan (02/28/2019 12:24 PM CDT): - Oxycodone PRN. PT/OT. - Gabapentin 300mg TID. Assessment & Plan (02/24/2019 10:04 AM CDT): Patient presented with atraumatic mid to low back pain x 2 weeks. No history of malignancy or weight loss. Neuro exams appears progressively worse based on prior documentation. Patient is not moving LE, cannot detect effort against gravity. Urinary retention overnight also concerning. -NPO now -Continue pain control -Decadron 10mg IV now -Call spine, called MRI reading room Assessment & Plan (02/23/2019 9:30 AM CDT): Patient presented with acute but gradually developing atraumatic mid to low back pain x 2 weeks. No clear red flags with no history of trauma, malignancy/Bsymptoms, or bacteremia. Additionally, no history of incontinence, saddle anesthesia, total spine imaging without fracture, mass and CXR w/ resolution of previous pneumonia. Exam limited somewhat by pain and obesity, however, pertinent findings include lack of clear dermatomal sensory deficit. Weakness found on my exam is quite different from ED physician exam and in setting of pain likely represents functional overlay For now, will attempt to manage pain with pharmacotherapy and re-evaluate exam. If weakness persistent or continued limitation in ambulation, will consider re- imaging -monitor pain, weakness. At this point, will hold off on further imaging -Start Naproxen 500 BID, Lidocaine patch, heat pack. PRN tylenol, PRN flexeril. Hold off on further narcotics. If absolutely necessary, will re-try tramadol -PT/OT evaluation. Bilateral lower extremity edema 02/23/2019 03/02/2019 Assessment & Plan (02/23/2019 9:18 AM CDT): -Likely venous stasis in setting of obesity and recumbency. No JVD. Bilateral LE swelling is a very unlikely presentation for DVT. -considering admission, will go ahead and check CMP, BNP to evaluate. Will hold off on LE duplex -Elevate legs. 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 Social History Tobacco Use Types Packs/Day Years Used Date Smoking Tobacco: Every Day Cigarettes 1 40 Smokeless Tobacco: Never Tobacco Cessation:Ready to Q uit: No; Counseling Given: Yes Alcohol Use Standard Drinks/Week Comments Not Currently 0 (1 standard drink = 0.6 oz pur e alcohol) AUDIT-C Answer Date Recorded Frequency of Alcohol Consumption Never 02/22/2019 Average Number of Drinks Not on file 019 Frequency of Binge Drinking Not on file 02/12 Comments No Sex and Gender Information Value Date Recorded Sex Assigned at Not on file Legal Sex Female 9:46 PM CDT Gender Identity Not on file Sexual Orientation Not on file Last Filed Vital Signs Vital Sign Reading Time Taken Comments Blood Pressure 111/76 09/03/2019 12:16 PM MARKETING DATABASE CONSULTANT Pulse 81 09/03/2019 12:16 PM MARKETING DATABASE CONSULTANT Temperature 36.4 C (97.5 F) 09/03/2019 12:16 PM MARKETING DATABASE CONSULTANT Respiratory Rate 16 09/03/2019 12:1 6 PM MARKETING DATABASE CONSULTANT Oxygen Saturation 100% 09/03/2019 12: 16 PM MARKETING DATABASE CONSULTANT Inhaled Oxygen Concentration - - Weight 79.8 kg (176 lb) 09/03/2019 12:1 6 PM MARKETING DATABASE CONSULTANT weight -verbal per patient Height 165.1 cm (5' 5 ) 09/03/2019 12:1 6 PM MARKETING DATABASE CONSULTANT Body Mass Index 29.29 09/03/2019 12:16 PM MARKETING DATABASE CONSULTANT Plan of Treatment Not on file Medical Devices Implanted Type Area Beauty Operator Device Identifier Shelf Expiration Date Model / Serial / Lot Depuy Spine [id number] 5.5mm 1 Inner Spine Screw Set Titanium Nonsterile Viper - [id number] Implanted:Qty: 8 on 02/24/2019 by Edelmira Pimentel MD at [facility] Screw N/A: Spine Lumbar Depuy Spine [id number] / / Depuy Synthes Spine [id number] Viper Prime Od5 Mm L45 Mm Fix Polyaxial Fenestrate Extend Tab Spine Cortical Screw Bone Nonsterile 5.5 Mm Dav - [id number] Implanted:Qty: 2 on 02/24/2019 by Edelmira Pimentel MD at [facility] Screw N/A: Spine Lumbar Depuy Synthes Spine [id number] / / Depuy Synthes Spine [id number] Viper Prime Od6 Mm L40 Mm Fix Polyaxial Fenestrate Extend Tab Spine Cortical Screw Bone Nonsterile 5.5 Mm Dav - [id number] Implanted:Qty: 2 on 02/24/2019 by Edelmira Pimentel MD at [facility] Screw N/A: Spine Lumbar Depuy Synthes Spine [id number] / / Depuy Synthes Spine [id number] Viper Prime Od6 Mm L45 Mm Fix Polyaxial Fenestrate Extend Tab Spine Cortical Screw Bone Nonsterile 5.5 Mm Dav - [id number] Implanted:Qty: 4 on 02/24/2019 by Edelmira Pimentel MD at [facility] N/A: Spine Lumbar Depuy Synthes Spine [id number] / / Ti Mis Depuy Viper Kypho Dav Implanted:Qty: 2 on 02/24/2019 by Edelmira Pimentel MD at [facility] N/A: Spine Lumbar Depuy Spine [id number] / / Ang[employer] [id number] Xcela 8fr 1.6mm 1 Lumen Power Injectable Attach Catheter Fill - [id number] Implanted:Qty: 1 on 04/29/2019 at [facility] Angio Dynamics 02/17/2024 [id number] / / [id number] Procedures Procedure Name Priority Date/Time Associated Diagnosis Comments HEMOGLOBIN A1C STAT 06/13/2019 12:08 PM CDT LIPID PANEL Routine 04/15/2019 2:17 AM CDT HEPATITIS PANEL, ACUTE Routine 03/05/2019 8:26 PM CDT from Last 3 Months or Most Recently Relevant to Health Maintenance Results * (ABNORMAL) Hemoglobin A1c (06/13/2019 12:08 PM CDT) Hgb A1C 6.5(H) 4.0 - 5.6 % [facility] Estimated Average Glucose 140 mg/dL [facility] Comment: The ADA recommends reporting an estimated Average Glucose (eAG) with all Hemoglobin A1c results using the equation derived from a study of 507 normal and diabetic adults. Minority populations were underrepresented and children were not included. (Diabetes Care 31:2866-6429, 2008). The eAG is not equivalent to a fasting glucose. Blood specimen (specimen) 06/13/2019 12:08 PM CDT 06/13/2019 12:23 PM CDT Rashaun Peoples MD LAB BLOOD ORDERABLES Final R esult [facility] [address] [place] [address] * (ABNORMAL) Lipid panel (04/15/2019 2:17 AM CDT) Pathologist [facility] Cholesterol 95 30 - 199 mg/dL [facility] Comment: Interpretive Data Ages < or = 19 years Acceptable: <170 mg/dL Borderline high: 170-199 mg/dL High: >or= 200 mg/dL Ages > or = 20 years Desirable: <200 mg/dL Borderline high: 200-239 mg/dL High: >or= 240 mg/dL Literature References: 1. Expert Panel on Integrated Guidelines for Cardiovascular Health and Risk Reduction in Children and Adolescents. Pediatrics 2011;128:S213 2. NCEP Expert Panel. Circulation 2004;110:227 Current Interpretive Data was last revised on 2018. Triglycerides 59 <=149 mg/dL [facility] Comment: Interpretive Data Ages < or = 9 years Acceptable: <75 mg/dL Borderline high: 75-99 mg/dL High: >or= 100 mg/dL Ages 10 to 20 years Acceptable: <90 mg/dL Borderline high: 90-129 mg/dL High: >or= 130 mg/dL Ages > or = 20 years Desirable: <150 mg/dL Borderline high: 150-199 mg/dL High: 200-499 mg/dL Very high: >or= 499 mg/dL Literature References: 1. Expert Panel on Integrated Guidelines for Cardiovascular Health and Risk Reduction in Children and Adolescents. Pediatrics 2011;128:S213 2. NCEP Expert Panel. Circulation 2004;110:227 Current Interpretive Data was last revised on 2018. HDL 30(L) >=40 mg/dL [facility] Comment: Interpretive Data Ages < or = 19 years Acceptable: >45 mg/dL Borderline low: 40-45 mg/dL Low: <40 mg/dL Ages > or = 20 years Desirable: >or= 60 mg/dL Low: <40 mg/dL Literature References: 1. Expert Panel on Integrated Guidelines for Cardiovascular Health and Risk Reduction in Children and Adolescents. Pediatrics 2011;128:S213 2. NCEP Expert Panel. Circulation 2004;110:227 Current Interpretive Data was last revised on 2018. LDL, calculated 53 <=129 mg/dL [facility] Comment: Interpretive Data Ages < or = 19 years Acceptable: <110 mg/dL Borderline high: 110-129 mg/dL High: >or= 130 mg/dL Ages > or = 20 years Optimal: <100 mg/dL Near optimal: 100-129 mg/dL Borderline high: 130-159 mg/dL High: >160 mg/dL Literature References: 1. Expert Panel on Integrated Guidelines for Cardiovascular Health and Risk Reduction in Children and Adolescents. Pediatrics 2011;128:S213 2. NCEP Expert Panel. Circulation 2004;110:227 Current Interpretive Data was last revised on 2018. Non-HDL Cholesterol 65 mg/dL [facility] Comment: Interpretive Data Ages < or = 19 years Acceptable: <120 mg/dL Borderline high: 120-144 mg/dL High: >145 mg/dL Ages > or = 20 years When triglycerides are >200 mg/dL, Non-HDL cholesterol is a secondary target of therapy with treatment goals that are 30 mg/dL greater than the LDL cholesterol target. Literature References: 1. Expert Panel on Integrated Guidelines for Cardiovascular Health and Risk Reduction in Children and Adolescents. Pediatrics 2011;128:S213 2. NCEP Expert Panel. Circulation 2004;110:227 Current Interpretive Data was last revised on 2018. Chol/HDL ratio 3 [facility] Blood specimen (specimen) 04/15/2019 2:17 AM CDT 04/15/2019 3:00 AM CDT Rashaun Peoples MD LAB BLOOD ORDERABLES Final R esult Performing Organization Address City/[facility]/ZIP Co de Phone Number [facility] Department [place] [address] * Hepatitis panel, acute (03/05/2019 8:26 PM CDT) Hep A IgM Nonreactive Nonreactive [facility] Comment: Interpretive Data If test is reported as GRAYZONE, new sample should be drawn in two weeks for testing. Current interpretive data was last revised on 2016. Hep B core IgM Nonreactive Nonreactive [facility] Comment: Interpretive Data If test is reported as GRAYZONE, new sample should be drawn for testing. Current interpretive data was last revised on 2016. Hep C Ab Nonreactive Nonreactive [facility] Comment: Interpretive Data Positive results should be confirmed by a molecular method. If positive, a second separately collected sample should be submitted for Hepatitis C Virus (HCV) RNA Detection and Quantitation by Real-Time Reverse Senior Systems Developer-PCR (RT-PCR). Current interpretive data was last revised on 2016. HepBsAg Nonreactive Nonreactive [facility] Blood specimen (specimen) 03/05/2019 8:26 PM CDT 03/05/2019 8:41 PM CDT Narrative [facility] - 03/06/2019 12:32 PM CDT us Meng Ulrich MD LAB MICROBIOLOGY - GENERAL OR DERABLES Edited Result - Final [facility] Department [place] [address] from Last 3 Months or Most Recently Relevant to Health Maintenance Insurance [employer] [place] Advance Directives For more information, please contact: [phone] Documents on File Type Date Recorded Patient Immunohematologist Expl anation ADVANCE DIRECTIVE 05/03/2019 1:58 PM POWER OF TUMBLING INSTRUCTOR-MEDICAL ADVANCE DIRECTIVE 05/02/2019 5:43 AM POWER OF TUMBLING INSTRUCTOR-MEDICAL ADVANCE DIRECTIVE 04/30/2019 3:45 PM ADVANCE DIRECTIVE 04/27/2019 1:33 PM POWER OF TUMBLING INSTRUCTOR-MEDICAL * Full Code (Latest Code Status on File) Date Activated Date Inactivated Comments 07/23/2019 2:23 PM 08/06/2019 4:52 PM * Full Code Date Activated Date Inactivated Comments 06/13/2019 9:56 AM 06/17/2019 9:58 PM * Full Code Date Activated Date Inactivated Comments 04/17/2019 1:16 PM 05/01/2019 8:10 PM * Full Code Date Activated Date Inactivated Comments 04/15/2019 1:30 AM 04/17/2019 1:16 PM * Full Code Date Activated Date Inactivated Comments 03/06/2019 9:21 PM 03/14/2019 6:56 PM Care Teams Director Of Investigations Relationship Specialty Start Date End Date Victoriano Reid MD PCP - General Family Medicine 06/20/19 Rashaun Peoples MD [address] [facility] [address] [place] [address] Medical Oncologist/Sole Rounder Medical Oncology 08/07/19 Edelmira Pimentel MD [address] [facility] [address] [place] [address] Surgeon Orthopedic Surgery 09/01/19
--- OUTSIDE RECORDS SUMMARY | 2024-12-04 18:04 | XMS_ITS ---
Author Organization [facility] Address [address] [place] [address] Care Team Providers Care Silk Trimmer Name Role Phone Victoriano Reid MD Primary Care Provider [phone] Rashaun Peoples MD Unavailable [phone] Edelmira Pimentel MD Unavailable [phone] Active Problems Problem Noted Date Diagnosed Date [...] when MTX clears; R-CHOP will start outpatient Wednesday, patient will receive Neulasta post R-CHOP -OI [...] and [facility] getting [facility]uxan today and will discharge Assessment [...] and normal LVEF - day 2 of [facility] Assessment & Plan (03/12/2019 10:31 AM CDT): -CT chest abdomen pelvis without clear evidence of local or distant disease -PET 03/07 shows hypermetabolic bone marrow of 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 -TTE shows grade 1 diastolic dysfunction and normal LVEF - starting [facility] inpatient today Assessment & Plan (03/11/2019 4:28 [...] diastolic dysfunction and normal LVEF - starting [facility] inpatient tomorrow Vitamin D deficiency 03/03/2019 Overview [...] Discharge plans for acute inpatient rehab at [facility]. - No weight bearing restrictions, but full [...] Discharge plans for acute inpatient rehab at [facility]. - No weight bearing restrictions, but full [...] certainly need placement for aggressive PT/OT. [place] pending. - No weight bearing restrictions, [...] certainly need placement for aggressive PT/[place]. [place]. - No weight bearing restrictions, [...] certainly need placement for aggressive PT/[place]. [place]. - No weight bearing restrictions, [...] certainly need placement for aggressive PT/OT. [place]. - No weight bearing restrictions, [...] today, please call Janice Adams NP at [phone]. If after hours, please contact the Diabetes Fellow at [phone]. Assessment & Plan (03/14/2019 10:32 AM CDT): This is a new diagnosis this admission with A1c 8.9.Initially required NPH while on dexamethasone, but now weaned to januvia + SSI per endocrine recc's -Uptitrate insulin as needed -Patient currently on [...] today, please call Crista Montgomery NP at [phone]. If after hours, please contact the Diabetes Fellow at [phone]. Assessment & Plan (03/12/2019 10:31 AM CDT): [...] today, please call Janice Adams NP at [phone]. If after hours, please contact the Diabetes Fellow at [phone]. Assessment & Plan (03/05/2019 6:21 PM CDT): [...] Januvia 100 mg daily starting today. -monitor BS QID Patient has been seen by CDE. Tentative D/C recommendations D/C regimen to be determined closer to discharge She will follow up with her PCP post-discharge Assessment & Plan (03/04/2019 6:13 PM CDT): - New diagnosis this admission. A1c 8.9. - now of steroids and NPH. - Last dose of steroids and NPH 5/20 - Lispro 8 units with meals plus [...] after the previous Dexamethasone wears off -monitor BS QID Patient has been seen by CDE. Tentative [...] were discussed with the primary team. Call [phone] with questions on day of service only. If after hours or weekends, please contact the Diabetes Fellow at [phone], option #1 Assessment & Plan (02/28/2019 12:17 [...] were discussed with the primary team. Call [phone] with questions on day of service only. If after hours or weekends, please contact the Diabetes Fellow at [phone], option #1 Assessment & Plan (02/26/2019 4:31 [...] today, please call Crista Montgomery NP at [phone]. If after hours, please contact the Diabetes Fellow at [phone]. Assessment & Plan (02/24/2019 10:05 AM CDT): -New diagnosis. A1c 8.9 -LDSSI. DM educator c/s, charge manager -Monitor BG with decadron Current Treatment and Therapy Plans No current plan information found. Past Treatment and Therapy Plans BMT/ONC IP BLOOD PRODUCTS Plan Name Start Date Discontinue Date Treatment Medications Discontinue Reason Plan Provider BMT (CMV Negative/Untested) Adult Blood and Platelet Administration for Inpatient (Version 10/01) 9 01/14/2020 No medications scheduled. Patient Discharged Rashaun Peoples MD Oncology Chemotherapy Treatment Plan Name Start Date Discontinue Date Treatment Medications Discontinue Reason Plan Provider Cycles R-CHOP: (RiTUXimab / Cyclophosphamide / DOXOrubicin / VinCRIStine / PredniSONE) 21 Day Cycles - DLBCL 019 05/28/2019 cycloPHOSphamide (CYTOXAN)cycloPHOSpham heath (CYTOXAN) IVPB (vial 20 mg/mL) (J9075)DOXOrubicin (ADRIAMYCIN)DOXOrubici n (ADRIAMYCIN) 2 mg/mLriTUXimab (RITUXAN)riTUXimab (RITUXAN) IVPB in 500 mLvinCRIStinevinCRISti ne (ONCOVIN) IVPB in 50 mL Therapy Complete Rashaun Peoples MD 4 of 6 cycles started Oncology Supportive Care Plan Name Start Date Discontinue Date Treatment Medications Discontinue Reason Plan Provider PEGFILGRASTIM (NEULASTA) INJECTION 05/30/2019 07/16/2019 No medications scheduled. Therapy Complete Rashaun Peoples MD Oncology Treatment (2) Plan Name Start Date Discontinue Date Treatment Medications Discontinue Reason Plan Provider Cycles MR-CHOP (R-CHOP + HD MTX for Prophylaxis in cycles 2, 4, 6) 21 Day Cycles - Lymphoma 03/11/20 19 08/29/2019 cycloPHOSphamide (CYTOXAN)cycloPHOSphami de (CYTOXAN) IVPB (vial 20 mg/mL) (J9075)DOXOrubicin (ADRIAMYCIN)DOXOrubicin (ADRIAMYCIN) 2 mg/mLleucovorinmethotre xatemethotrexate IVPB in 1,000 mLriTUXimab (RITUXAN)riTUXimab (RITUXAN) IVPB in 500 mLvinCRIStinevinCRIStin e (ONCOVIN) IVPB in 50 mL Therapy Complete Rashaun Peoples MD 6 of 6 cycles started Lifetime Dose Tracking * Chemical Lifetime Dose Automatic Entry Manual Entr y doxorubicin 332.247 mg/m2 (631.6 mg) 332.247 mg/m2 (631.6 mg) 0 mg/m2 (0 mg) Fluoro Time 3.2 minutes 3.2 minutes 0 minutes cyclophosphamide 4,979.616 mg/m2 (9,466 mg) 4,979.616 mg/m2 (9,466 mg) 0 mg/m2 (0 mg) doxorubicin isotoxic equivalent (Please manually verify calculation) 332.247 mg/m2 (631.6 mg) 332.247 mg/m2 (631.6 mg) 0 mg/m2 (0 mg) Air kerma at the reference point (Ka,r) 1 mGy 1 mGy 0 mGy DLP 3,807 mGycm 3,807 mGycm 0 mGycm Resolved Problems Problem Noted Date Diagnosed Date Resolved Date AMS (altered mental status) 08/01/2019 05/27/2021 Assessment & Plan (08/02/2019 8:23 AM CDT): Most likely thought to be related to medications. - Gabapentin and baclofen being held. Cipro DCd 08/01. - Head CT neg 07/28, repeat 08/01: neg - Ammonia level ok UTI (urinary tract infection ) due to urinary indwelling Armijo catheter ([facility]) 07/25/201907/16 Assessment & Plan (08/01/2019 10:43 AM [...] - Ucx: Pending, continue oxybutinin Severe malnutrition ([facility]) 06/13/2019 05/27/2021 Severe malnutrition ([facility]) 04/18/2019 05/20/2019 Acute hypoxemic respiratory failure 04/15/2019 [...] -TTE (04/16) with EF 74%, mild TR, TX; G1DD, normal RV size and function. -if [...] replete electrolytes aggressively. H/O recurrent pneumonia 03/03/2019 08/0 03/2019 Assessment & Plan (03/03/2019 11:42 AM CDT): [...]
--- OUTSIDE RECORDS SUMMARY | 2024-12-04 18:04 | XMS_ITS | Encounter Summary ---
Author Organization [facility] Address [address] [place] [address] Phone Care Team Providers Care Smooth Plater Name Role Phone Victoriano Reid MD Primary Care Provider [phone] Malissa Joe RN Unavailable Unavailable Malissa Joe RN Unavailable Unavailable Elva Olivares DO Primary Care Provider [phone] [place] INSTRUMENT TESTER Unavailable Cabrera Smallwood MD Unavailable [phone] Reason for Visit * Reason Comments Medication Refill Encounter Details Date Type Department Care Team (Late st Contact Info) Description 09/06/2022 Refill [facility] - Family Medicine [facility] [address] [place] [address] Victoriano Reid MD [address] [place] [address] Medication Refill Social History Tobacco Use Types [...] Telephone Encounter - Camilla Hauser RN - 09/06/2022 9:46 AM CST Medication failed the protocol, provider to review and approve the medication order if appropriate. Requested Prescriptions Pending Prescriptions Disp Refills baclofen (LIORESAL) 10 MG Tablet [Pharmacy Med Name: BACLOFEN 10MG TABLETS] 90 Tablet 0 Sig: TAKE 1 TABLET BY MOUTH THREE TIMES DAILY NEEDED FOR MUSCLE SPASM Not Delegated - Muscle Relaxants Protocol Failed - 09/06/2022 5:51 AM Failed - This refill cannot be delegated Passed - Visit with relevant provider in past 12 months or upcoming 90 days Recent Visits Date Type Provider Dept 01/05/22 Office Visit Nia Abbott PAC [facility] Showing recent visits within past 365 days and meeting all other requirements Future Appointments Date Type Provider Dept 09/19/22 Appointment Victoriano Reid MD [facility] Showing future appointments within next 90 days and meeting all other requirements loratadine (CLARITIN) 10 MG Tablet [Pharmacy Med Name: LORATADINE 10MG TABLETS] 30 Tablet 0 Sig: TAKE 1 TABLET BY MOUTH DAILY Non-sedating Antihistamines Protocol Passed - 09/06/2022 5:51 AM Passed - Visit with relevant provider in past 12 months or upcoming 90 days Recent Visits Date Type Provider Dept 01/05/22 Office Visit Nia Abbott PAC [facility] Showing recent visits within past 365 days and meeting all other requirements Future Appointments Date Type Provider Dept 09/19/22 Appointment Victoriano Reid MD [facility] Showing future appointments within next 90 days and meeting all other requirements RIAL CONTROL ANALYST documented in this encounter Plan of Treatment Upcoming Encounters Date Type Department Care Team (Late st Contact Info) Description 01/02/2025 10:30 AM CDT Procedure Visit [facility] UROLOGY [address] [place] [id number] Cabrera Yadav MD [address], [facility] [address] [place] [address] 01/09/2025 1:00 PM CDT Office Visit [facility] [place] [address] [place] [id number] Elva Olivares DO [address] [place] [address] documented as of this encounter Visit Diagnoses Diagnosis Muscle spasm Spasm of muscle Allergic rhinitis, unspecified seasonality, unspecified trigger documented in this encounter Additional Health Concerns Assessment Noted Time PHQ-9 Depression Total Score: 0 08/15/20 10:00 AM CDT documented as of this encounter Care Teams Smooth Plater Relationship Specialty Start Date End Date Victoriano Reid MD PCP - General Family Medicine 06/19/19 06/29/24 Elva Olivares DO [address] [place] [address] PCP - General Family Medicine 07/01/24 Malissa Joe RN [place] Nurse [employer] Shingle Roofer 12/03/23 12/03/23 Malissa Joe RN [place] Nurse [employer] 12/05/23 12/05/23 [place], [facility] [place] Operator Maintainer [employer] Ro[employer]er 11/03/24 Cabrera Yadav MD [address], [facility] [address] [place] [address] Consulting Physician Urology 11/07/24 documented as of this encounter
--- OUTSIDE RECORDS SUMMARY | 2024-12-04 18:04 | XMS_ITS | Encounter Summary ---
Author Organization [facility] Address [address] [place] [address] Phone Care Team Providers Care It Security Project Manager Name Role Phone Victoriano Reid MD Primary Care Provider [phone] Elva Olivares DO Primary Care Provider [phone] [place] [facility] Unavailable Cabrera Smallwood MD Unavailable [phone] Reason for Visit * Reason Comments Medication Refill Encounter Details Date Type Department Care Team (Late Contact Info) Description 01/19/2024 Refill [facility] - Family Medicine [facility] [address] [place] [address] Victoriano Reid MD [address] [place] [address] Medication Refill Social History Tobacco Use Types Packs/Day Years Used Date Smoking Tobacco: Every Day Cigarettes Smokeless Tobacco: Never Alcohol Use Standard Drinks/Week Comments Not Currently 0 (1 standard drink = 0.6 oz pur e alcohol) [facility] Utilities Answer Date Recorded In the past 12 months has e electric, gas, oil, or water company threatened to shut off services in your home? No 12/20/2023 Social Connection and Isolat ion Panel [NHANES] Answer Date Recorded In a typical week, how many times do you talk on the phone with family, friends, or neighbors? More than three times a week 12/20/2023 How often do you get togethe r with friends or relatives? More than three times a week 12/20/2023 How often do you attend chur ch or confucianism services? Never 12/20/2023 Do you belong to any clubs o r organizations such as congregation groups, unions, fraternal or athletic groups, or school groups? No 12/20/2023 How often do you attend meet ings of the clubs or organizations you belong to? Never 12/20/2023 Are you , , di vorced, , never , or living with a partner? 12/20/2023 AUDIT-C Answer Date Recorded Q1: How often do you have a drink containing alcohol? Never 12/20/2023 Q2: How many drinks containi ng alcohol do you have on a typical day when you are drinking? Patient does not drink Q3: How often do you have si x or more drinks on one occasion? Never 12/20/2023 Overall Financial Resource Strain (CARDIA) Answe r Date Recorded How hard is it for you to pa y for the very basics like food, housing, medical care, and heating? Patient declined 12/20/2023 PHQ-2 Answer Date Recorded Total Score - Questions 1-9 0 12/14 [facility] - Occupational Stress Questionnaire Answer Date Recorded Do you feel stress - tense, restless, nervous, or anxious, or unable to sleep at night because your mind is troubled all the time - these days? Not at all 12/20/2023 Exercise Vital Sign Answer Date Recorde d On average, how many days pe r week do you engage in moderate to strenuous exercise (like a brisk walk)? 0 days 12/20/2023 On average, how many minutes do you engage in exercise at this level? 0 min 12/20/2023 Hunger Vital Sign Answer Date Recorded Within the past 12 months, y ou worried that your food would run out before you got the money to buy more. Patient declined Within the past 12 months, t he food you bought just didn't last and you didn't have money to get more. Patient declined 04/2024 PRAPARE - Transportation Answer Date Re corded In the past 12 months, has l ack of transportation kept you from medical appointments or from getting medications? Yes 04/2024 In the past 12 months, has l ack of transportation kept you from meetings, work, or from getting things needed for daily living? No 12/20/2023 Housing Stability Vital Sign Answer [...] place to sleep or slept in a senior care (including now)? No 12/20/2023 Education Answer Date Recorded What is the [...] Telephone Encounter - Adelaida Medina RN - 01/20/2024 5:25 PM CDT Medication failed the protocol, provider to review and approve the medication order if appropriate. Requested Prescriptions Pending Prescriptions Disp Refills acyclovir (ZOVIRAX) 400 MG Tablet [Pharmacy Med Name: ACYCLOVIR 400MG TABLETS] 90 Tablet 1 Sig: TAKE 1 TABLET BY MOUTH THREE TIMES DAILY Not Delegated - Herpes Agents Protocol Failed - 01/19/2024 5:48 AM Failed - This refill cannot be delegated Passed - Visit with relevant provider in past 12 months or upcoming 90 days Recent Visits Date Type Provider Dept 12/06/23 Telemedicine Victoriano Reid MD [facility] 10/23/23 Telemedicine Miriam Prasad UNARMED SECURITY OFFICER, AUTOMOTIVE PARTS COORDINATOR [facility] 03/29/23 Office Visit Victoriano Reid MD [facility] Showing recent visits within past 365 days and meeting all other requirements Future Appointments No visits were found meeting these conditions. Showing future appointments within next 90 days and meeting all other requirements documented in this encounter Plan of Treatment Upcoming Encounters Date Type Department Care Team (Late st Contact Info) Description 01/02/2025 10:30 AM CDT Procedure Visit [facility] [address] [facility] [place] [address] Cabrera Yadav MD [address] [facility] [address] [place] [address] 01/09/2025 1:00 PM CDT Office Visit [facility] [address] [place] [address] Elva Olivares DO 2 [facility] [address] [place] [address] documented as of this encounter Visit Diagnoses Not on filedocumented in this encounter Additional Health Concerns Assessment Noted Time PHQ-9 Depression Total Score: 0 08/15/20 10:00 AM CDT documented as of this encounter Care Teams It Security Project Manager Relationship Specialty Start Date End Date Victoriano Reid MD PCP - General Family Medicine 06/19/19 06/29/24 Elva Olivares DO [address] [facility] [address] [place] [address] PCP - General Family Medicine 07/01/24 [place], [facility] Chemistry Teacher Drill Operator Pneumatic 11/03/24 Cabrera Yadav MD [address] [facility] [address] [place] [address] Consulting Physician Urology 11/07/24 documented as of this encounter
--- OUTSIDE RECORDS SUMMARY | 2024-12-04 18:04 | XMS_ITS | Encounter Summary ---
Author Organization [facility] Address [address] [place] [address] Phone Care Team Providers Care Vision Impaired Teacher Name Role Phone Victoriano Reid MD Primary Care Provider [phone] Malissa Joe RN Unavailable Unavailable Malissa Joe RN Unavailable Unavailable Elva Olivares DO Primary Care Provider [phone] [place] T[employer] WORKER Unavailable UnaCabrera Nevarez MD Unavailable [phone] Encounter Details Date Type Department Care Team (Late st Contact Info) Description 08/03/2020 Lab Requisition [facility] [address] [place] [id number] Victoriano Reid MD [address] [place] [address] Type 2 diabetes mellitus with hyperglycemia (HCC) Social History Tobacco Use Types Packs/Day Years [...] Exposure Response Date Recorded In the last month, have you been in contact with someone who was confirmed or suspected to have Coronavirus / COVID-19? No / Unsure 08/06/2020 2:16 PM CDT documented as of this encounter Plan of Treatment Upcoming Encounters Date Type Department Care Team (Late st Contact Info) Description 01/02/2025 10:30 AM CDT Procedure Visit [facility] [address] [place] [address] Cabrera Yadav MD [address]2 [facility] [address] [place] [address] 01/09/2025 1:00 PM CDT Office Visit [facility] - Family Medicine [facility] [address] [place] [address] Elva Olivares, DO 2 [facility]. [address] [place] [address] documented as of this encounter Procedures Procedure Name Priority Date/Time Associated Diagnosis Comments THYROID SCREEN WITH REFLEX Routine 08/03/2020 2:00 PM CDT Type 2 diabetes mellitus with hyperglycemia (HCC) THYROID SCREEN WITH REFLEX Routine 08/03/2020 2:00 PM CDT Type 2 diabetes mellitus with hyperglycemia (HCC) HEMOGLOBIN A1C W/ ESTIMATED GLUCOSE Routine 08/03/2020 2:00 PM CDT Type 2 diabetes mellitus with hyperglycemia (HCC) URINALYSIS REFLEX IF INDICATED BY ABNORMAL RESULTS Routine 08/03/2020 2:00 PM CDT Type 2 diabetes mellitus with hyperglycemia (HCC) CBC WITH AUTO DIFFERENTIAL Routine 08/03/2020 2:00 PM CDT Type 2 diabetes mellitus with hyperglycemia (HCC) UR MICROALBUMIN/CREATIN INE RATIO RANDOM Routine 08/03/2020 2:00 PM CDT Type 2 diabetes mellitus with hyperglycemia (HCC) THYROXINE (T4) FREE Routine 08/03/2020 2 :00 PM CDT Type 2 diabetes mellitus with hyperglycemia (HCC) LIPID PANEL Routine 08/03/2020 2:00 PM CDT Type 2 diabetes mellitus with hyperglycemia (HCC) CULTURE, URINE Routine 08/03/2020 2:00 PM CDT Type 2 diabetes mellitus with hyperglycemia (HCC) CMP (COMPREHENSIVE METABOLIC PANEL) Routine 08/03/2020 2:00 PM CDT Type 2 diabetes mellitus with hyperglycemia (HCC) COMPLETE BLOOD COUNT (CBC) WITH DIFF Routine 08/03/2020 2:00 PM CDT Type 2 diabetes mellitus with hyperglycemia (HCC) documented in this encounter Results * CULTURE, URINE (08/03/2020 2:00 PM CDT) CULTURE RESULTS STAPHYLOCOCCUS AUREUS 08/06/2020 9:58 AM CDT [facility] CULTURE RESULTS ALSO MIXED GROWTH OF DISTAL URETHRA CONTAMINANTS. 08/06/2020 9:58 AM CDT [facility] Urine Non-Phlebotomy Collection / Unknown 08/03/2020 2:00 PM CDT 08/03/2020 5:01 PM CDT Narrative Organism Antibiotic Method Susceptibility Staphylococcus aureus Gentamicin [facility] VITEK II >=16 mcg/ml: Resistant Staphylococcus aureus Oxacillin [facility] V[facility] II <=0.25 mcg/ml: Susceptible Staphylococcus aureus Tetracycline [facility] VITEK II <=1 mcg/ml: Susceptible Staphylococcus aureus Trimeth/Sulfamethoxazole [facility] RANDY II <=10 mcg/ml: Susceptible Staphylococcus aureus Vancomycin [facility] V[facility] II <=0.5 mcg/ml: Susceptible us Victoriano Reid MD MICROBIOLOGY - GENERAL ORDERABLE S Final Result [facility] [address] [place] [address], [place] * THYROID SCREEN WITH REFLEX (08/03/2020 2:00 PM CDT) TSH 2.480 0.270 - 4.200 mIU/L 08/03/2020 5:35 PM CDT [facility] Blood Venipuncture / Unknown 08/03/2020 2:00 PM CDT 08/03/2020 4:54 PM CDT us Victoriano Reid MD CHEMISTRY ORDERABLES Final Resul t [facility] [address] [place] [address] * (ABNORMAL) CBC WITH AUTO DIFFERENTIAL (08/03/2020 2:00 PM CDT) Pathologist [facility] [place] WBC 8.32 4.00 - 12.00 10(3)/mcL 08/03/2020 5:02 PM CDT [facility] RBC 4.20 3.80 - 5.30 10(6)/mcL 08/03/2020 5:02 PM CDT [facility] HEMOGLOBIN (HGB) 13.5 12.0 - 15.8 g/dL 08/03/2020 5:02 PM CDT [facility] HEMATOCRIT (HCT) 41.8 36.0 - 47.0 % 08/03/2020 5:02 PM CDT [facility] MCV 99.5(H) 82.0 - 96.0 fL 08/03/2020 5:02 PM CDT [facility] MCH 32.1 26.0 - 34.0 pg 08/03/2020 5:02 PM CDT [facility] MCHC 32.3 31.0 - 36.0 g/dL 08/03/2020 5:02 PM CDT [facility] PLATELET COUNT 191 140 - 440 10(3)/mcL 08/03/2020 5:02 PM CDT [facility] RDW 14.8 11.8 - 15.5 % 08/03/2020 5:02 PM CDT [facility] MPV 11.2 9.7 - 12.4 fL 08/03/2020 5:02 PM CDT [facility] NEUTROPHILS 59.8 47.0 - 73.0 % 08/03/2020 5:02 PM CDT [facility] LYMPHOCYTES 29.7 18.0 - 42.0 % 08/03/2020 5:02 PM CDT [facility] MONOCYTES 6.3 4.0 - 12.0 % 08/03/2020 5:02 PM CDT [facility] EOSINOPHILS 3.5 0.0 - 5.0 % 08/03/2020 5:02 PM CDT [facility] BASOPHILS 0.7 0.0 - 1.0 % 08/03/2020 5:02 PM CDT [facility] ABSOLUTE NEUTROPHILS 4.98 1.60 - 7.70 10(3)/mcL 08/03/2020 5:02 PM CDT [facility] ABSOLUTE LYMPHOCYTES 2.47 1.30 - 3.20 10(3)/mcL 08/03/2020 5:02 PM CDT [facility] ABSOLUTE MONOCYTES 0.52 0.20 - 1.00 10(3)/mcL 08/03/2020 5:02 PM CDT [facility] ABSOLUTE EOSINOPHIL 0.29 0.00 - 0.40 10(3)/mcL 08/03/2020 5:02 PM CDT [facility] ABSOLUTE BASOPHILS 0.06 0.00 - 0.10 10(3)/mcL 08/03/2020 5:02 PM CDT [facility] NRBC PER 100 WBC 0 08/03/20 5:02 PM CDT [facility] Blood Venipuncture / Unknown 08/03/2020 2:00 PM CDT 08/03/2020 4:53 PM CDT us Victoriano Reid MD HEMATOLOGY ORDERABLES Final Resu lt [facility] [address] [place] [address] * (ABNORMAL) UR MICROALBUMIN/CREATININE RATIO RANDOM (08/03/2020 2:00 PM CDT) [facility] RAN UR MICROALBUMIN <=1.20 <=2.00 mg/dL 08/03/2020 6:27 PM CDT [facility] CREATININE URINE 9.5(L) 28.0 - 217.0 mg/dL 08/03/2020 6:27 PM CDT [facility] ALB/CREAT RATIO <=126(H) 1 - 30 mg/g CRE 08/03/2020 6:27 PM CDT [facility] Urine Non-Phlebotomy Collection / Unknown 08/03/2020 2:00 PM CDT 08/03/2020 6:14 PM CDT Victoriano Reid MD URINE ORDERABLES Final Result Performing Organization Address City/State/[facility] Co de Phone Number [facility] [address] [place] [address] * (ABNORMAL) URINALYSIS REFLEX IF INDICATED BY ABNORMAL RESULTS (08/03/2020 2:00 PM CDT) [facility] SPECIFIC GRAVITY 1.005 1.003 - 1.030 08/03/2020 5:24 PM CDT [facility] URINE PH 7.0 5.0 - 9.0 08/03/2020 5:24 PM CDT [facility] WBC ESTERASE 500 /uL(A) Negative 08/03/2020 5:24 PM CDT [facility] NITRITE Positive(A) Negative 08/03/2020 5:24 PM CDT [facility] PROTEIN, RANDOM URINE Negative Negative 08/03/2020 5:24 PM CDT [facility] URINE GLUCOSE, QUAL Negative Negative 08/03/2020 5:24 PM CDT [facility] URINE KETONES Negative Negative 08/03/2020 5:24 PM CDT [facility] UROBILINOGEN Normal Normal mg/dL 08/03/2020 5:24 PM CDT [facility] URINE BILIRUBIN Negative Negative 0 5:24 PM CDT [facility] URINE BLOOD Negative Negative josefa/ul 08/03/2020 5:24 PM CDT [facility] URINALYSIS COLOR Yellow 08/03/2020 5:24 PM CDT [facility] URINALYSIS CLARITY Slightly Cloudy 08/03/2020 5:24 PM CDT [facility] WBC (Urine) 21-50(A) Negative, 0-5 /hpf 08/03/2020 5:24 PM CDT [facility] URINE RBC'S 0-2 Negative, 0-2 /hpf 08/03/2020 5:24 PM CDT [facility] EPITHELIAL CELLS Occasional /lpf 08/03/2020 5:24 PM CDT [facility] BACTERIA, URINE Few(A) Negative /hpf 08/03/2020 5:24 PM CDT [facility] Urine Non-Phlebotomy Collection / Unknown 08/03/2020 2:00 PM CDT 08/03/2020 5:01 PM CDT us Victoriano Reid MD URINE ORDERABLES Final Result Performing Organization Address City/[facility]/ZIP Co de Phone Number [facility] [address] [place] [address] * THYROXINE (T4) FREE (08/03/2020 2:00 PM CDT) T4 FREE 1.0 0.9 - 1.7 ng/dL 08/03/2020 5:35 PM CDT [facility] Blood Venipuncture / Unknown 08/03/2020 2:00 PM CDT 08/03/2020 4:55 PM CDT us Victoriano Reid MD CHEMISTRY ORDERABLES Final Resul t [facility] [address] [place] [address] * (ABNORMAL) HEMOGLOBIN A1C W/ ESTIMATED GLUCOSE (08/03/2020 2:00 PM CDT) [facility] HGB-A1C 6.1(H) 4.0 - 6.0 % 08/03/2020 5:29 PM CDT [facility] Est Average Glucose 128.4 mg/dL 08/03/2020 5:29 PM CDT [facility] Blood Venipuncture / Unknown 08/03/2020 2:00 PM CDT 08/03/2020 5:14 PM CDT Narrative [facility] - 08/03/2020 5:29 PM CDT HEMOGLOBIN A1C: DIABETIC PATIENTS: WELL-CONTROLLED: 6.2 - 7.0 INTERMEDIATE WELL-CONTROLLED: 7.0 - 9.0 POORLY-CONTROLLED: >9.0 us Victoriano Reid MD CHEMISTRY ORDERABLES Final Resul t [facility] [address] [place] [address] * (ABNORMAL) LIPID PANEL (08/03/2020 2:00 PM CDT) [facility] CHOLESTEROL 149 <=200 mg/dL 08/03/2020 5:35 PM CDT [facility] TRIGLYCERIDES 138 <150 mg/dL 08/03/2020 5:35 PM CDT [facility] HDL CHOLESTEROL 33.9(L) >40 mg/dL 0 5:35 PM CDT [facility] LDL 88 5 - 130 mg/dL 08/03/2020 5:35 PM CDT [facility] VLDL 28 5 - 55 mg/dL 08/03/2020 5:35 PM CDT [facility] CHOL/HDL RATIO 4.4 0.0 - 4.4 08/03/2020 5:35 PM CDT [facility] NON-HDL CHOLESTEROL 115.1 <130 mg/dL 08/03/2020 5:35 PM CDT [facility] LIPID FASTING 08/03/2020 5:35 PM CDT [facility] Blood Venipuncture / Unknown 08/03/2020 2:00 PM CDT 08/03/2020 4:55 PM CDT us Victoriano Reid MD CHEMISTRY ORDERABLES Final Resul t [facility] [address] [place] [address] * (ABNORMAL) CMP (COMPREHENSIVE METABOLIC PANEL) (08/03/2020 2:00 PM CDT) SODIUM 138 136 - 144 mmol/L 08/03/2020 5:35 PM CDT [facility] POTASSIUM 4.2 3.5 - 5.1 mmol/L 08/03/2020 5:35 PM CDT [facility] CHLORIDE 101 100 - 110 mmol/L 08/03/2020 5:35 PM CDT [facility] CO2, VENOUS 29 22 - 32 mmol/L 08/03/2020 5:35 PM CDT [facility] ANION GAP 12.2 8.0 - 20.0 mmol/L 08/03/2020 5:35 PM CDT [facility] GLUCOSE 126(H) 70 - 99 mg/dL 08/03/2020 5:35 PM CDT [facility] BUN 13 8 - 23 mg/dL 08/03/2020 5:35 PM CDT [facility] CREATININE, BLOOD 0.50(L) 0.60 - 1.10 mg/dL 08/03/2020 5:35 PM CDT [facility] BUN/CREATININE RATIO 26(H) 12 - 20 ratio 08/03/2020 5:35 PM CDT [facility] TOTAL PROTEIN 6.2 6.0 - 8.3 g/dL 08/03/2020 5:35 PM CDT [facility] ALBUMIN 3.9 3.5 - 5.2 g/dL 08/03/2020 5:35 PM CDT [facility] Comment: The colormetric methods used for the determination of Albumin may lead to falsely elevated test results in patients suffering from renal failure or insufficiency due to interference with other proteins. A/G RATIO 1.7 1.0 - 2.0 08/03/2020 5:35 PM CDT [facility] CALCIUM 9.4 8.9 - 10.3 mg/dL 08/03/2020 5:35 PM CDT [facility] T BILI <=0.2 <=1.2 mg/dL 08/03/2020 5:35 PM CDT [facility] SGOT (AST) 12 <=32 U/L 08/03/2020 5:35 PM CDT [facility] SGPT (ALT) 9 <=33 U/L 08/03/2020 5:35 PM CDT [facility] ALKALINE PHOSPHATASE 60 35 - 105 U/L 08/03/2020 5:35 PM CDT [facility] GFR, EST. NONAFRICAN >60 >=60 08/03/2020 5:35 PM CDT [facility] GFR, EST. >60 >=60 020 5:35 PM CDT [facility] Comment: Creatinine Clearance is the preferred criteria for selecting drug dose adjustments in renally impaired patients. The GFR is provided as additional pertinent clinical information. GFR is reported in mL/min/1.73 sq m. 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 [address] [place] [address] PCP - General Family Medicine 07/01/24 Malissa Joe, RN [place] Nurse Rn Transitional 12/03/23 12/03/23 Malissa Joe RN [place] Nurse Rn Transitional 12/05/23 12/05/23 [place], TARGET WORKER [place] Act English Tutor Rn Transitional 11/03/24 Cabrera Yadav MD #2 [facility] [address] [place] [address] Consulting Physician Urology 11/07/24 documented as of this encounter
--- OUTSIDE RECORDS SUMMARY | 2024-12-04 18:04 | XMS_ITS | Encounter Summary ---
Author Organization [facility] Address [address] [place] [address] Phone Care Team Providers Care Laborer Concrete Plant Name Role Phone Victoriano Reid MD Primary Care Provider [phone] Malissa Joe RN Unavailable Unavailable Malissa Joe RN Unavailable Unavailable Elva Olivares DO Primary Care Provider [phone] [place] TEST ARCHITECT Unavailable Unaabdirizaki Cabrera Dodge MD Unavailable [phone] Encounter Details Date Type Department Care Team (Late st Contact Info) Description 10/17/[address] [facility] [address] [place] [id number] Victoriano Reid MD [address] [place] [address] Social History Tobacco Use Types Packs/Day Years [...] suspected to have Coronavirus/COVID-19? No / Unsure 09/19/2022 9:13 AM ONLINE AFFILIATE MARKETING MANAGER documented as of this encounter Plan of Treatment Upcoming Encounters Date Type Department Care Team (Late st Contact Info) Description 01/02/2025 10:30 AM CDT Procedure Visit [facility] [address] [place] [address] Cabrera Yadav MD #[address] [facility] [address] [place] [address] 01/09/2025 1:00 PM CDT Office Visit [facility] - Family [facility] #2 [facility] [place] [address] Elva Olivares, DO 2 [facility]. [address] [place] [address] documented as of this encounter Procedures Procedure Name Priority Date/Time Associated Diagnosis Comments VITAMIN D, 25 HYDROXY TOTAL Routine 10/17/2022 11:44 AM ONLINE AFFILIATE MARKETING MANAGER HEMOGLOBIN A1C W/ ESTIMATED GLUCOSE Routine 10/17/2022 11:44 AM ONLINE AFFILIATE MARKETING MANAGER CBC WITH AUTO DIFFERENTIAL Routine 10/17/2022 11:44 AM ONLINE AFFILIATE MARKETING MANAGER VITAMIN B12 Routine 10/17/2022 11:44 AM ONLINE AFFILIATE MARKETING MANAGER UR MICROALBUMIN/CREATINI NE RATIO RANDOM Routine 10/17/2022 11:44 AM ONLINE AFFILIATE MARKETING MANAGER THYROXINE (T4) TOTAL Routine 10/17/2022 11:44 AM ONLINE AFFILIATE MARKETING MANAGER THYROID STIMULATING HORMONE (TSH) Routine 10/17/2022 11:44 AM ONLINE AFFILIATE MARKETING MANAGER LIPID PANEL Routine 10/17/2022 11:44 AM ONLINE AFFILIATE MARKETING MANAGER CMP (COMPREHENSIVE METABOLIC PANEL) Routine 10/17/2022 11:44 AM ONLINE AFFILIATE MARKETING MANAGER COMPLETE BLOOD COUNT (CBC) WITH DIFF Routine 10/17/2022 11:44 AM ONLINE AFFILIATE MARKETING MANAGER documented in this encounter Results * (ABNORMAL) CBC WITH AUTO DIFFERENTIAL (10/17/2022 11:44 AM ONLINE AFFILIATE MARKETING MANAGER) [facility] WBC 9.55 4.00 - 12.00 10(3)/mcL 10/17/2022 1:35 PM ONLINE AFFILIATE MARKETING MANAGER [facility] RBC 4.47 3.80 - 5.30 10(6)/mcL 10/17/2022 1:35 PM ONLINE AFFILIATE MARKETING MANAGER [facility] HEMOGLOBIN (HGB) 15.0 12.0 - 15.8 g/dL 10/17/2022 1:35 PM ONLINE AFFILIATE MARKETING MANAGER [facility] HEMATOCRIT (HCT) 45.0 36.0 - 47.0 % 10/17/2022 1:35 PM ONLINE AFFILIATE MARKETING MANAGER [facility] MCV 100.7(H) 82.0 - 96.0 fL 10/17/2022 1:35 PM ONLINE AFFILIATE MARKETING MANAGER [facility] MCH 33.6 26.0 - 34.0 pg 10/17/2022 1:35 PM ONLINE AFFILIATE MARKETING MANAGER [facility] MCHC 33.3 31.0 - 36.0 g/dL 10/17/2022 1:35 PM ONLINE AFFILIATE MARKETING MANAGER [facility] PLATELET COUNT 164 140 - 440 10(3)/mcL 10/17/2022 1:35 PM [facility] RDW 14.3 11.8 - 15.5 % 10/17/2022 1:35 PM [facility] MPV 11.9 9.7 - 12.4 fL 10/17/2022 1:35 PM ONLINE AFFILIATE MARKETING MANAGER [facility] NEUTROPHILS 51.6 47.0 - 73.0 % 10/17/2022 1:35 PM ONLINE AFFILIATE MARKETING MANAGER [facility] LYMPHOCYTES 37.1 18.0 - 42.0 % 10/17/2022 1:35 PM ONLINE AFFILIATE MARKETING MANAGER [facility] MONOCYTES 6.8 4.0 - 12.0 % 10/17/2022 1:35 PM ONLINE AFFILIATE MARKETING MANAGER [facility] EOSINOPHILS 3.5 0.0 - 5.0 % 10/17/2022 1:35 PM ONLINE AFFILIATE MARKETING MANAGER [facility] BASOPHILS 1.0 0.0 - 1.0 % 10/17/2022 1:35 PM ONLINE AFFILIATE MARKETING MANAGER [facility] ABSOLUTE NEUTROPHILS 4.93 1.60 - 7.70 10(3)/[facility] 10/17/2022 1:35 PM [facility] ABSOLUTE LYMPHOCYTES 3.54(H) 1.30 - 3.20 10(3)/[facility] 10/17/2022 1:35 PM [facility] ABSOLUTE MONOCYTES 0.65 0.20 - 1.00 10(3)/[facility] 10/17/2022 1:35 PM ONLINE AFFILIATE MARKETING MANAGER [facility] ABSOLUTE EOSINOPHIL 0.33 0.00 - 0.40 10(3)/[facility] 10/17/2022 1:35 PM [facility] ABSOLUTE BASOPHILS 0.10 0.00 - 0.10 10(3)/[facility] 10/17/2022 1:35 PM [facility] NRBC PER 100 WBC 0 10/17/19 1:35 PM [facility] Blood No Phlebotomy Charged / Unknown 10/17/2022 11:44 AM ONLINE AFFILIATE MARKETING MANAGER 10/17/2022 1:31 PM ONLINE AFFILIATE MARKETING MANAGER us Victoriano Reid MD HEMATOLOGY ORDERABLES Final Resu lt [facility] [address] [place] [address] * UR MICROALBUMIN/CREATININE RATIO RANDOM (10/17/2022 11:44 AM ONLINE AFFILIATE MARKETING MANAGER) RAN UR MICROALBUMIN <=1.20 <=2.00 mg/dL 10/17/2022 2:35 PM ONLINE AFFILIATE MARKETING MANAGER [facility] CREATININE URINE 63.5 28.0 - 217.0 mg/dL 10/17/2022 2:35 PM ONLINE AFFILIATE MARKETING MANAGER [facility] ALB/CREAT RATIO 2:35 PM ONLINE AFFILIATE MARKETING MANAGER [facility] Comment:Unable to calculate Urine Non-Phlebotomy Collection / Unknown 10/17/2022 11:44 AM ONLINE AFFILIATE MARKETING MANAGER 10/17/2022 1:31 PM ONLINE AFFILIATE MARKETING MANAGER Victoriano Reid MD URINE ORDERABLES Final Result Performing Organization Address City/[facility]/ZIP Co de Phone Number [facility] [address] [place] [address] * THYROID STIMULATING HORMONE (TSH) (10/17/2022 11:44 AM ONLINE AFFILIATE MARKETING MANAGER) [facility] TSH 2.760 0.270 - 4.200 mIU/L 10/17/2022 2:33 PM ONLINE AFFILIATE MARKETING MANAGER [facility] Blood No Phlebotomy Charged / Unknown 10/17/2022 11:44 AM ONLINE AFFILIATE MARKETING MANAGER 10/17/2022 1:31 PM ONLINE AFFILIATE MARKETING MANAGER us Victoriano Reid MD CHEMISTRY ORDERABLES Final Resul t [facility] [address] [place] [address] * (ABNORMAL) HEMOGLOBIN A1C W/ ESTIMATED GLUCOSE (10/17/2022 11:44 AM ONLINE AFFILIATE MARKETING MANAGER) [facility] HGB-A1C 6.3(H) 4.0 - 6.0 % 10/17/2022 2:17 PM ONLINE AFFILIATE MARKETING MANAGER [facility] Est Average Glucose 134.1 mg/dL 10/17/2022 2:17 PM ONLINE AFFILIATE MARKETING MANAGER [facility] Blood No Phlebotomy Charged / Unknown 10/17/2022 11:44 AM ONLINE AFFILIATE MARKETING MANAGER 10/17/2022 1:31 PM ONLINE AFFILIATE MARKETING MANAGER Narrative [facility] - 10/17/2022 2:17 PM ONLINE AFFILIATE MARKETING MANAGER HEMOGLOBIN A1C: DIABETIC PATIENTS: WELL-CONTROLLED: 6.2 - 7.0 INTERMEDIATE WELL-CONTROLLED: 7.0 - 9.0 POORLY-CONTROLLED: >9.0 Victoriano Reid MD CHEMISTRY ORDERABLES Final Resul t Performing Organization Address City/[facility] Co de Phone Number [facility] [address] [place] [address] * THYROXINE (T4) TOTAL (10/17/2022 11:44 AM ONLINE AFFILIATE MARKETING MANAGER) T4 9.2 4.5 - 12.0 mcg/dL 10/17/2022 2:33 PM ONLINE AFFILIATE MARKETING MANAGER [facility] Blood No Phlebotomy Charged / Unknown 10/17/2022 11:44 AM ONLINE AFFILIATE MARKETING MANAGER 10/17/2022 1:31 PM ONLINE AFFILIATE MARKETING MANAGER Victoriano Reid MD CHEMISTRY ORDERABLES Final Resul t Performing Organization Address [facility] de Phone Number [facility] [address] [place] [address] * VITAMIN D, 25 HYDROXY TOTAL (10/17/2022 11:44 AM ONLINE AFFILIATE MARKETING MANAGER) VITAMIN D, 25 HYDROX 67 >=30 ng/mL 10/17/2022 2:35 PM ONLINE AFFILIATE MARKETING MANAGER [facility] Blood No Phlebotomy Charged / Unknown 10/17/2022 11:44 AM ONLINE AFFILIATE MARKETING MANAGER 10/17/2022 1:31 PM ONLINE AFFILIATE MARKETING MANAGER Narrative [facility] - 10/17/2022 2:35 PM ONLINE AFFILIATE MARKETING MANAGER Published reference ranges for Vitamin D vary depending on time and place and method of testing, and on patient's age, sex, ethnicity and levels of other measured analytes such as parathormone, calcium and phosphorus. The result should be evaluated in conjunction with clinical findings and suspicions. [place] [employer] and Endocrine Clinical Practice Guidelines: Status Vitamin D levels (ng/mL) Deficient <=20 At risk of inadequacy 21-29 Sufficient 30-100 Centers of Disease Control and Prevention Guidelines: Status Vitamin D levels (ng/mL) Deficient <13 At risk of inadequacy 13-19 Sufficient 20-50 Possibly harmful >50 References: [place] [employer] [facility], 2010 Dietary reference intakes for calcium and vitamin D. [place]: The National Academies Press. Nkechi M, Jasmin N, Nicholas TOLEDO, et al., Evaluation, treatment, and prevention of Vitamin D deficiency: an Endocrinology Clinical Practice Guideline. JCEM 2011 96: 7 0531-8203. Lawson A, Josue C, Glo D, et al., Vitamin D Status: [place], , [facility] data brief, no. 59, MD [place]: National Center for Health Statistics. 2011. Victoriano Reid MD CHEMISTRY ORDERABLES Final Resul t Performing Organization Address City/[facility] Co de Phone Number [facility] [address] [place] [address] * VITAMIN B12 (10/17/2022 11:44 AM ONLINE AFFILIATE MARKETING MANAGER) VITAMIN B12 383 243 - 894 pg/mL 10/17/2022 2:34 PM ONLINE AFFILIATE MARKETING MANAGER [facility] Blood No Phlebotomy Charged / Unknown 10/17/2022 11:44 AM ONLINE AFFILIATE MARKETING MANAGER 10/17/2022 1:31 PM ONLINE AFFILIATE MARKETING MANAGER Victoriano Reid MD CHEMISTRY ORDERABLES Final Resul t Performing Organization Address [facility] de Phone Number [facility] [address] [place] [address] * LIPID PANEL (10/17/2022 11:44 AM ONLINE AFFILIATE MARKETING MANAGER) CHOLESTEROL 150 <=200 mg/dL 10/17/2022 2:33 PM ONLINE AFFILIATE MARKETING MANAGER [facility] TRIGLYCERIDES 114 <150 mg/dL 10/17/2022 2:33 PM ONLINE AFFILIATE MARKETING MANAGER [facility] HDL CHOLESTEROL 40.5 >40 mg/dL 2:33 PM ONLINE AFFILIATE MARKETING MANAGER [facility] LDL 87 5 - 130 mg/dL 10/17/2022 2:33 PM ONLINE AFFILIATE MARKETING MANAGER [facility] VLDL 23 5 - 55 mg/dL 10/17/2022 2:33 PM [facility] CHOL/HDL RATIO 3.7 0.0 - 4.4 10/17/2022 2:33 PM [facility] NON-HDL CHOLESTEROL 109.5 <130 mg/dL 10/17/2022 2:33 PM [facility] Blood No Phlebotomy Charged / Unknown 10/17/2022 11:44 AM ONLINE AFFILIATE MARKETING MANAGER 10/17/2022 1:31 PM ONLINE AFFILIATE MARKETING MANAGER us Victoriano Reid MD CHEMISTRY ORDERABLES Final Resul t [facility] [address] [place] [address] * (ABNORMAL) CMP (COMPREHENSIVE METABOLIC PANEL) (10/17/2022 11:44 AM ONLINE AFFILIATE MARKETING MANAGER) SODIUM 140 136 - 144 mmol/L 10/17/2022 2:33 PM [facility] POTASSIUM 4.3 3.5 - 5.1 mmol/L 10/17/2022 2:33 PM [facility] CHLORIDE 104 100 - 110 mmol/L 10/17/2022 2:33 PM [facility] CO2, VENOUS 25 22 - 32 mmol/L 10/17/2022 2:33 PM [facility] ANION GAP 15.3 8.0 - 20.0 mmol/L 10/17/2022 2:33 PM [facility] GLUCOSE 137(H) 70 - 99 mg/dL 10/17/2022 2:33 PM [facility] BUN 17 8 - 23 mg/dL 10/17/2022 2:33 PM [facility] CREATININE, BLOOD 0.77 0.60 - 1.10 mg/dL 10/17/2022 2:33 PM [facility] BUN/CREATININE RATIO 22(H) 12 - 20 ratio 10/17/2022 2:33 PM [facility] TOTAL PROTEIN 6.9 6.0 - 8.3 g/dL 10/17/2022 2:33 PM [facility] ALBUMIN 4.0 3.5 - 5.2 g/dL 10/17/2022 2:33 PM [facility] Comment: The colormetric methods used for the determination of Albumin may lead to falsely elevated test results in patients suffering from renal failure or insufficiency due to interference with other proteins. A/G RATIO 1.4 1.0 - 2.0 10/17/2022 2:33 PM [facility] CALCIUM 9.8 8.9 - 10.3 mg/dL 10/17/2022 2:33 PM [facility] T BILI <0.3 <=1.2 mg/dL 10/17/2022 2:33 PM [facility] SGOT (AST) 13 <=32 U/L 10/17/2022 2:33 PM [facility] SGPT (ALT) 9 <=41 U/L 10/17/2022 2:33 PM [facility] ALKALINE PHOSPHATASE 82 35 - 105 U/L 10/17/2022 2:33 PM [facility] GFR, ESTIMATED >60 >=60 10/17/2022 2:33 PM [facility] Comment: Creatinine Clearance is the preferred criteria for selecting drug dose adjustments in renally impaired patients. The GFR is provided as additional pertinent clinical information. GFR is reported in mL/min/1.73 sq m. Calculation based on the Chronic Kidney Disease Epidemiology Collaboration (CKD- EPI) equation refit without adjustment for race. GFR, EST. >60 >=60 023 2:33 PM [facility] GFR, EST. NONAFRICAN >60 >=60 10/17/2022 2:33 PM ONLINE AFFILIATE MARKETING MANAGER [facility] Blood No Phlebotomy Charged / Unknown 10/17/2022 11:44 AM ONLINE AFFILIATE MARKETING MANAGER 10/17/2022 1:31 PM ONLINE AFFILIATE MARKETING MANAGER us Victoriano Reid MD CHEMISTRY ORDERABLES Final Resul t [facility] [address] [place] [address] documented in this encounter Visit Diagnoses Not on filedocumented in this encounter Additional Health Concerns Assessment Noted Time PHQ-9 Depression Total Score: 0 08/15/20 21 10:00 AM CDT documented as of this encounter Care Teams Laborer Concrete Plant Relationship Specialty Start Date End Date Victoriano Reid MD PCP - General Family Medicine 06/19/19 06/29/24 Elva Olivares DO 2 [facility]. [address] [place] [address] PCP - General Family Medicine 07/01/24 Malissa Joe, RN [place] Nurse Registered Nurse Maternity 12/03/23 12/03/23 Malissa Joe, RN [place] Nurse Registered Nurse Maternity 12/05/23 12/05/23 [place], TEST ARCHITECT [place] Folding Rules Printing Machine Operator Registered Nurse Maternity 11/03/24 Cabrera Yadav MD [address] [facility] [address] [place] [address] Consulting Physician Urology 11/07/24 documented as of this encounter
--- OUTSIDE RECORDS SUMMARY | 2024-12-04 18:04 | XMS_ITS | Encounter Summary ---
Author Organization [facility] Address [address] [place] [address] Phone Care Team Providers Care Casino Change Attendant Name Role Phone Victoriano Reid MD Primary Care Provider [phone] Elva Olivares DO Primary Care Provider [phone] [place] COMMERCIAL LOAN OFFICER Unavailable Unavai Cabrera Dodge MD Unavailable [phone] Encounter Details Date Type Department Care Team (Late st Contact Info) Description 12/20/2023 Lab Requisition [facility] Laboratory Services [address] [place] [id number] Victoriano Reid MD [address] [place] [address] Type 2 diabetes mellitus with other specified complication (HCC) Social History Tobacco Use Types Packs/Day Years Used Date Smoking Tobacco: Every Day Cigarettes Smokeless Tobacco: Never Alcohol Use Standard Drinks/Week Comments Not Currently 0 (1 standard drink = 0.6 oz pur e alcohol) [facility] Utilities Answer Date Recorded In the [...] often do you attend chur ch or restorationism services? Never 12/20/2023 Do you belong to any clubs o r organizations such as rastafari groups, unions, fraternal or athletic groups, or [...] Total Score - Questions 1-9 0 12/14 [facility] - Occupational [...] place to sleep or slept in a jail (including now)? No 12/20/2023 Education Answer Date [...] on file documented as of this encounter Functional Status * Audit-C Score Answer Date of Assessment Author 0 12/20/2023 11:52 AM WELT WHEELER [employer], [employer] Background * Within the last year, have you been humiliated or emotionally abused in other ways by your partner or ex-partner? Answer Date of Assessment Author No 12/20/2023 11:52 AM WELT WHEELER [employer], [employer] Background * Within the last year, have you been afraid of your partner or ex-partner? Answer Date of Assessment Author No 12/20/2023 11:52 AM WELT WHEELER [employer] Background * Within the last year, have you been raped or forced to have any kind of sexual activity by your partner or ex-partner? Answer Date of Assessment Author No 12/20/2023 11:52 AM WELT WHEELER [employer], System Background * Within the last year, have you been kicked, hit, slapped, or otherwise physically hurt by your partner or ex-partner? Answer Date of Assessment Author No 12/20/2023 11:52 AM WELT WHEELER [employer], System Background * Q1: How often do you have a drink containing alcohol? Answer Date of Assessment Author Never 12/20/2023 11:52 AM WELT WHEELER [employer] Background * Q2: How many drinks containing alcohol do you have on a typical day when you are drinking? Answer Date of Assessment Author Patient does not drink 12/20/2023 11:52 AM WELT WHEELER [employer], System Background * Q3: How often do you have six or more drinks on one occasion? Answer Date of Assessment Author Never 12/20/2023 11:52 AM WELT WHEELER [employer], System Background documented as of this encounter Plan of Treatment Upcoming Encounters Date Type Department Care Team (Late st Contact Info) Description 01/02/2025 10:30 AM CDT Procedure Visit [facility] UROLOGY [address] [place] [address] Cabrera Yadav MD [address]2 [facility] [address] [place] [address] 01/09/2025 1:00 PM CDT Office Visit [facility] - Family Medicine - [place] [address] [place] [address] Elva Olivares, DO 2 [facility] [address] [place] [address] documented as of this encounter Procedures Procedure Name Priority Date/Time Associated Diagnosis Comments HEMOGLOBIN A1C W/ ESTIMATED GLUCOSE Routine 12/20/2023 12:30 PM WELT WHEELER Type 2 diabetes mellitus with other specified complication (HCC) CBC WITH AUTO DIFFERENTIAL Routine 12/20/2023 12:30 PM WELT WHEELER Type 2 diabetes mellitus with other specified complication (HCC) CMP (COMPREHENSIVE METABOLIC PANEL) Routine 12/20/2023 12:30 PM WELT WHEELER Type 2 diabetes mellitus with other specified complication (HCC) COMPLETE BLOOD COUNT (CBC) WITH DIFF Routine 12/20/2023 12:30 PM WELT WHEELER Type 2 diabetes mellitus with other specified complication (HCC) documented in this encounter Results * (ABNORMAL) CBC WITH AUTO DIFFERENTIAL (12/20/2023 12:30 PM [facility]) WBC 9.25 4.00 - 12.00 10(3)/mcL 12/20/2023 2:29 PM [facility] RBC 4.47 3.80 - 5.30 10(6)/mcL 12/20/2023 2:29 PM [facility] HEMOGLOBIN (HGB) 14.7 12.0 - 15.8 g/dL 12/20/2023 2:29 PM [facility] HEMATOCRIT (HCT) 44.7 36.0 - 47.0 % 12/20/2023 2:29 PM [facility] MCV 100.0(H) 82.0 - 96.0 fL 12/20/2023 2:29 PM [facility] MCH 32.9 26.0 - 34.0 pg 12/20/2023 2:29 PM [facility] MCHC 32.9 31.0 - 36.0 g/dL 12/20/2023 2:29 PM [facility] PLATELET COUNT 161 140 - 440 10(3)/mcL 12/20/2023 2:29 PM [facility] RDW 14.3 11.8 - 15.5 % 12/20/2023 2:29 PM [facility] MPV 11.8 9.7 - 12.4 fL 12/20/2023 2:29 PM [facility] NEUTROPHILS 51.9 47.0 - 73.0 % 12/20/2023 2:29 PM [facility] LYMPHOCYTES 37.2 18.0 - 42.0 % 12/20/2023 2:29 PM [facility] MONOCYTES 6.5 4.0 - 12.0 % 12/20/2023 2:29 PM [facility] EOSINOPHILS 3.5 0.0 - 5.0 % 12/20/2023 2:29 PM WELT WHEELER [facility] BASOPHILS 0.9 0.0 - 1.0 % 12/20/2023 2:29 PM WELT WHEELER [facility] ABSOLUTE NEUTROPHILS 4.81 1.60 - 7.70 10(3)/[facility] 12/20/2023 2:29 PM WELT WHEELER [facility] ABSOLUTE LYMPHOCYTES 3.44(H) 1.30 - 3.20 10(3)/[facility] 12/20/2023 2:29 PM WELT WHEELER [facility] ABSOLUTE MONOCYTES 0.60 0.20 - 1.00 10(3)/[facility] 12/20/2023 2:29 PM WELT WHEELER [facility] ABSOLUTE EOSINOPHIL 0.32 0.00 - 0.40 10(3)/[facility] 12/20/2023 2:29 PM [facility] ABSOLUTE BASOPHILS 0.08 0.00 - 0.10 10(3)/[facility] 12/20/2023 2:29 PM [facility] NRBC PER 100 WBC 0 12/20/19 2:29 PM [facility] Blood No Phlebotomy Charged / Unknown 12/20/2023 12:30 PM WELT WHEELER 12/20/2023 2:26 PM WELT WHEELER us Victoriano Reid MD HEMATOLOGY ORDERABLES Final Resu lt [facility] [address] [place] [address] * HEMOGLOBIN A1C W/ ESTIMATED GLUCOSE (12/20/2023 12:30 PM WELT WHEELER) HGB-A1C 5.8 4.0 - 6.0 % 12/20/2023 2:51 PM WELT WHEELER [facility] Est Average Glucose 119.8 mg/dL 12/20/2023 2:51 PM [facility] Blood No Phlebotomy Charged / Unknown 12/20/2023 12:30 PM WELT WHEELER 12/20/2023 2:26 PM WELT WHEELER Narrative [facility] - 12/20/2023 2:51 PM WELT WHEELER HEMOGLOBIN A1C: DIABETIC PATIENTS: WELL-CONTROLLED: 6.2 - 7.0 INTERMEDIATE WELL-CONTROLLED: 7.0 - 9.0 POORLY-CONTROLLED: >9.0 us Victoriano Reid MD CHEMISTRY ORDERABLES Final Resul t [facility] [address] [place] [address] * (ABNORMAL) CMP (COMPREHENSIVE METABOLIC PANEL) (12/20/2023 12:30 PM WELT WHEELER) SODIUM 144 136 - 145 mmol/L 12/20/2023 2:47 PM WELT WHEELER [facility] POTASSIUM 4.2 3.5 - 5.1 mmol/L 12/20/2023 2:47 PM [facility] CHLORIDE 109(H) 98 - 107 mmol/L 12/20/2023 2:47 PM [facility] CO2, VENOUS 27 22 - 30 mmol/L 12/20/2023 2:47 PM [facility] ANION GAP 12.2 <18.0 mmol/L 12/20/2023 2:47 PM WELT WHEELER [facility] GLUCOSE 136(H) 70 - 99 mg/dL 12/20/2023 2:47 PM WELT WHEELER [facility] BUN 14 10 - 20 mg/dL 12/20/2023 2:47 PM [facility] CREATININE, BLOOD 0.84 0.60 - 1.00 mg/dL 12/20/2023 2:47 PM [facility] BUN/CREATININE RATIO 17 12 - 20 ratio 12/20/2023 2:47 PM [facility] TOTAL PROTEIN 6.9 6.3 - 8.2 g/dL 12/20/2023 2:47 PM [facility] ALBUMIN 3.8 3.5 - 5.0 g/dL 12/20/2023 2:47 PM [facility] A/G RATIO 1.2 1.0 - 2.2 12/20/2023 2:47 PM WELT WHEELER [facility] CALCIUM 9.8 8.7 - 10.5 mg/dL 12/20/2023 2:47 PM WELT WHEELER [facility] T BILI 0.3 0.2 - 1.2 mg/dL 12/20/2023 2:47 PM WELT WHEELER [facility] SGOT (AST) 12 5 - 34 U/L 12/20/2023 2:47 PM WELT WHEELER [facility] SGPT (ALT) 10 0 - 55 U/L 12/20/2023 2:47 PM WELT WHEELER [facility] ALKALINE PHOSPHATASE 69 40 - 150 U/L 12/20/2023 2:47 PM WELT WHEELER [facility] GFR, ESTIMATED >60 >=60 12/20/2023 2:47 PM WELT WHEELER [facility] Comment: Creatinine Clearance is the preferred criteria for selecting drug dose adjustments in renally impaired patients. The GFR is provided as additional pertinent clinical information. GFR is reported in mL/min/1.73 sq m. Calculation based on the Chronic Kidney Disease Epidemiology Collaboration (CKD- EPI) equation refit without adjustment for race. GFR, EST. >60 >=60 024 2:47 PM WELT WHEELER [facility] GFR, EST. NONAFRICAN >60 >=60 12/20/2023 2:47 PM WELT WHEELER [facility] Blood No Phlebotomy Charged / Unknown 12/20/2023 12:30 PM WELT WHEELER 12/20/2023 2:26 PM WELT WHEELER us Victoriano Reid MD CHEMISTRY ORDERABLES Final Resul t [facility] [address] [place] [address] documented in this encounter Visit Diagnoses Diagnosis Type 2 diabetes mellitus with other specified complication (HCC) documented in this encounter Additional Health Concerns Assessment Noted Time PHQ-9 Depression Total Score: 0 08/15/20 21 10:00 AM CDT documented as of this encounter Care Teams Casino Change Attendant Relationship Specialty Start Date End Date Victoriano Reid MD PCP - General Family Medicine 06/19/19 06/29/24 Elva Olivares DO 2 [facility] [address] [place] [address] PCP - General Family Medicine 07/01/24 [place], [facility] Lens Matcher Shot Hole Driller 11/03/24 Cabrera Yadav MD #2 [facility] [address] [place] [address] Consulting Physician Urology 11/07/24 documented as of this encounter
--- OUTSIDE RECORDS SUMMARY | 2024-12-04 18:04 | XMS_ITS | Encounter Summary ---
Author Organization [facility] Address [address] [place] [address] Phone Care Team Providers Care Engineer Fishing Vessel Name Role Phone Victoriano Reid MD Primary Care Provider [phone] Elva Olivares DO Primary Care Provider [phone] [place] [facility] Unavailable Cabrera Smallwood MD Unavailable [phone] Reason for Visit * Reason Comments Medication Refill Encounter Details Date Type Department Care Team (Late Contact Info) Description 02/23/2024 Refill [facility] - Family Medicine [facility] [address] [place] [address] Victoriano Reid MD [address] [place] [address] Medication Refill Social History Tobacco Use Types Packs/Day Years Used Date Smoking Tobacco: Every Day Cigarettes Smokeless Tobacco: Never Alcohol Use Standard Drinks/Week Comments Not Currently 0 (1 standard drink = 0.6 oz pur e alcohol) [facility] Utilities Answer Date Recorded In the [...] often do you attend chur ch or protestant services? Never 12/20/2023 Do you belong to any clubs o r organizations such as sabianism groups, unions, fraternal or athletic groups, or [...] Total Score - Questions 1-9 0 12/14 [facility] Occupat ional Health - Occupational Stress [...] place to sleep or slept in a half-way (including now)? No 12/20/2023 Education Answer Date [...] Telephone Encounter - Camilla Hauser RN - 02/25/2024 9:50 AM CDT Medication(s) refilled and signed per [facility] Chronic Medication Refill Standing Order for Pediatricand Adult Patients. Requested Prescriptions Pending Prescriptions Disp Refills nystatin 210993 UNIT/GM Powder [Pharmacy Med Name: NYSTOP TOP PWDR 100,000 60GM] 60 g 3 Sig: APPLY TO THE AFFECTED AREA THREE TIMES DAILY DIRECTED Topical Antifungal Agents Protocol Passed - 02/23/2024 1:23 PM Passed - Visit with relevant provider in past 12 months or upcoming 90 days Recent Visits Date Type Provider Dept 12/06/23 Telemedicine Victoriano Reid MD [facility] 10/23/23 Telemedicine Miriam Prasad APRN, GROUND CREW CHIEF [facility] [place] 03[facility]23 Office Visit Victor[facility] Showing recent visits within past 365 days and meeting all other requirements Future Appointments No visits were found meeting these conditions. Showing future appointments within next 90 days and meeting all other requirements documented in this encounter Plan of Treatment Upcoming Encounters Date Type Department Care Team (Late st Contact Info) Description 01/02/2025 10:30 AM CDT Procedure Visit [facility] [address] [facility] [place] [address] Cabrera Yadav MD #2 [facility] [address] [place] [address] 01/09/2025 1:00 PM CDT Office [facility] [address] [facility] [place] [address] Elva Olivares DO 2 [facility] [address] [place] [address] documented as of this encounter Visit Diagnoses Diagnosis Skin yeast infection Candidiasis of skin and nails documented in this encounter Additional Health Concerns Assessment Noted Time PHQ-9 Depression Total Score: 0 08/15/20 10:00 AM CDT documented as of this encounter Care Teams Engineer Fishing Vessel Relationship Specialty Start Date End Date Victoriano Reid MD PCP - General Family Medicine 06/19/19 06/29/24 Elva Olivares DO 2 [facility] [address] [place] [address] PCP - General Family Medicine 07/01/24 [place], [facility] Valve Tester Associate [employer] 11/03/24 Cabrera Yadav MD #2 [facility] [address] [place] [address] Consulting Physician Urology 11/07/24 documented as of this encounter
--- OUTSIDE RECORDS SUMMARY | 2024-12-04 18:04 | XMS_ITS | Clinical Summary ---
Author Organization [facility] Address [address] [place] [address] Care Team Providers Care Accounting Instructor Name Role Phone Victoriano Reid MD Primary Care Provider [phone] Rashaun Peoples MD Unavailable [phone] Edelmira Pimentel MD Unavailable [phone] Allergies Active Allergy Reactions Criticality Noted [...] and normal LVEF - day 2 of [facility] Assessment & Plan (03/12/2019 10:31 AM CDT): -CT chest abdomen pelvis without clear evidence of local or distant disease -PET 03/07 shows hypermetabolic bone marrow of 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 -TTE shows grade 1 diastolic dysfunction and normal LVEF - starting [facility] inpatient today Assessment & Plan (03/11/2019 [...] diastolic dysfunction and normal LVEF - starting [facility] inpatient tomorrow Vitamin D deficiency 03/03/2019 [...] Discharge plans for acute inpatient rehab at [facility]. - No weight bearing restrictions, but full [...] Discharge plans for acute inpatient rehab at [facility]. - No weight bearing restrictions, but full [...] certainly need placement for aggressive PT/OT. Insurance ([place]) pending. - No weight bearing restrictions, [...] certainly need placement for aggressive PT/OT. [place] pending. - No weight bearing restrictions, [...] certainly need placement for aggressive PT/OT. [place] pending. - No weight bearing restrictions, [...] certainly need placement for aggressive PT/OT. [place] ([place] pending. - No weight bearing restrictions, [...] today, please call Janice Adams NP at [phone]. If after hours, please contact the Diabetes Fellow at [phone]. Assessment & Plan (03/14/2019 10:32 AM CDT): [...] today, please call Crista Montgomery NP at [phone]. If after hours, please contact the Diabetes Fellow at [phone]. Assessment & Plan (03/12/2019 10:31 AM CDT): [...] today, please call Janice Adams NP at [phone]. If after hours, please contact the Diabetes Fellow at [phone]. Assessment & Plan (03/05/2019 6:21 PM CDT): [...] Januvia 100 mg daily starting today. -monitor [facility] Patient has been seen by CDE. [...] after the previous Dexamethasone wears off -monitor [facility] Patient has been seen by CDE. [...] were discussed with the primary team. Call [phone] with questions on day of service only. If after hours or weekends, please contact the Diabetes Fellow at [phone], option #1 Assessment & Plan (02/28/2019 12:17 [...] were discussed with the primary team. Call [phone] with questions on day of service only. If after hours or weekends, please contact the Diabetes Fellow at [phone], option #1 Assessment & Plan (02/26/2019 4:31 [...] today, please call Crista Montgomery NP at [phone]. If after hours, please contact the Diabetes Fellow at [phone]. Assessment & Plan (02/24/2019 10:05 AM CDT): -New diagnosis. A1c 8.9 -LDSSI. DM educator c/s, director of event management -Monitor BG with decadron Resolved Problems Problem [...] ) due to urinary indwelling Armijo catheter ([facility]) 07/25/201907/16 Assessment & Plan (08/01/2019 10:43 AM [...] - Ucx: Pending, continue oxybutinin Severe malnutrition ([facility]/HCC) 06/13/2019 05/27/2021 Severe malnutrition (CMS/HCC) 04/18/2019 05/20/2019 [...] -TTE (04/16) with EF 74%, mild TR, IN; G1DD, normal RV size and function. -if [...] on LE duplex -Elevate legs. 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 Surgical History Surgery Date Site/Laterality Comments APPENDECTOMY PORT PLACEMENT CHEST >5 YEARS 04/29/2019 N/A Medical History Medical History Date Comments Non Hodgkin's lymphoma (HCC) DM (diabetes mellitus) (HCC) Hypertension Motion sickness Type 2 diabetes mellitus (HCC) Bladder spasms 07/23/2019 Family History Medical History Relation Name Comments Diabetes type II Mother Relation Name Status Comments Mother Social History Tobacco Use Types Packs/Day Years [...] on file Sexual Orientation Not on file Obstetrics History Last Filed Vital Signs Vital Sign Reading Time Taken Comments Blood Pressure 111/76 09/03/2019 12:16 PM [facility] Pulse 81 09/03/2019 12:16 PM [facility] Temperature 36.4 C (97.5 F) 09/03/2019 12:16 PM [facility] Respiratory Rate 16 09/03/2019 12:1 6 PM [facility] Oxygen Saturation 100% 09/03/2019 12: 16 PM [facility] Inhaled Oxygen Concentration - - Weight 79.8 kg (176 lb) 09/03/2019 12:1 6 PM [facility] weight -verbal per patient Height 165.1 cm (5' 5 ) 09/03/2019 12:1 6 PM [facility] Body Mass Index 29.29 09/03/2019 12:16 PM [facility] Plan of Treatment Health Maintenance Due Date Last Done Comments Albumin Creatinine Ratio, Urine 1957 Breast Cancer Screening-Mammogram 1957 Colon Cancer Screening-Colonoscopy 1957 Depression Screening 1957 Fall Risk Assessment 1957 Osteoporosis Screening-Bone Density Scan 1957 eGFR 1957 Dilated Eye Exam 1957 Foot Exam 1957 DTaP/Tdap/Td Vaccine (1 - Tdap) 1968 Hepatitis B Screening 1975 Pneumococcal vaccine 65+ (1 of 2 - PCV) 1976 Zoster Vaccine (1 of 2) 1976 Hemoglobin A1C 12/13/2019 06/13/2019, 02/23/2019 Well Visit 65+ 2022 Influenza Vaccine (#1) 2024 Lipid Panel 05/27/2025 05/27/2024, 04/15/2019 Hepatitis C Screening Completed 03/05/2019 Medical Devices Implanted Type Area Processing Rep Device Identifier Shelf Expiration Date Model / Serial / Lot Depuy Spine [id number] 5.5mm 1 Inner Spine Screw Set Titanium Nonsterile Viper - [id number] Implanted:Qty: 8 on 02/24/2019 by Edelmira Pimentel MD at [facility] Screw N/A: Spine Lumbar Depuy Spine [id number] / / Depuy Synthes Spine [id number] Viper Prime Od5 Mm L45 Mm Fix Polyaxial Fenestrate Extend Tab Spine Cortical Screw Bone Nonsterile 5.5 Mm Dav - [id number] Implanted:Qty: 2 on 02/24/2019 by Edelmira Pimentel MD at [facility] Screw N/A: Spine Lumbar Depuy Synthes Spine [id number] / / Depuy Synthes Spine [id number] Viper Prime Od6 Mm L40 Mm Fix Polyaxial Fenestrate Extend Tab Spine Cortical Screw Bone Nonsterile 5.5 Mm Dav - [id number] Implanted:Qty: 2 on 02/24/2019 by Edelmira Pimentel MD at [facility] Screw N/A: Spine Lumbar Depuy Synthes Spine [id number] / / Depuy Synthes Spine [id number] Viper Prime Od6 Mm L45 Mm Fix Polyaxial Fenestrate Extend Tab Spine Cortical Screw Bone Nonsterile 5.5 Mm Dav - [id number] Implanted:Qty: 4 on 02/24/2019 by Edelmira Pimentel MD at [facility] N/A: Spine Lumbar Depuy Synthes Spine [id number] / / Ti Mis Depuy Viper Kypho Dav Implanted:Qty: 2 on 02/24/2019 by Edelmira Pimentel MD at [facility] N/A: Spine Lumbar Depuy Spine [id number] / / Angio Dynamics [id number] Xcela 8fr 1.6mm 1 Lumen Power Injectable Attach Catheter Fill - [id number] Implanted:Qty: 1 on 04/29/2019 at [facility] Angio Dynamics 02/17/2024 [id number] / / [id number] Procedures Procedure Name Priority Date/Time Associated Diagnosis Comments HEMOGLOBIN A1C STAT 06/13/2019 12:08 PM CDT LIPID PANEL Routine 04/15/2019 2:17 AM CDT HEPATITIS PANEL, ACUTE Routine 03/05/2019 8:26 PM CDT from Last 3 Months or Most Recently Relevant to Health Maintenance Results * (ABNORMAL) Hemoglobin A1c (06/13/2019 12:08 PM CDT) Hgb A1C 6.5(H) 4.0 - 5.6 % [facility] Estimated Average Glucose 140 mg/dL [facility] Comment: The ADA recommends reporting an estimated Average Glucose (eAG) with all Hemoglobin A1c results using the equation derived from a study of 507 normal and diabetic adults. Minority populations were underrepresented and children were not included. (Diabetes Care 31:8694-2423, 2008). The eAG is not equivalent to a fasting glucose. Blood specimen (specimen) 06/13/2019 12:08 PM CDT 06/13/2019 12:23 PM CDT us Rashaun Peoples MD LAB BLOOD ORDERABLES Final R esult [facility] [address] [place] [address] * (ABNORMAL) Lipid panel (04/15/2019 2:17 AM CDT) Cholesterol 95 30 - 199 mg/dL [facility] Comment: Interpretive Data Ages < or = [...] revised on 2018. Triglycerides 59 <=149 mg/dL [facility] Comment: Interpretive Data Ages < or = [...] revised on 2018. HDL 30(L) >=40 mg/dL [facility] Comment: Interpretive Data Ages < or = [...] on 2018. LDL, calculated 53 <=129 mg/dL [facility] Comment: Interpretive Data Ages < or = [...] revised on 2018. Non-HDL Cholesterol 65 mg/dL [facility] Comment: Interpretive Data Ages < or = [...] revised on 2018. Chol/HDL ratio 3 [facility] Blood specimen (specimen) 04/15/2019 2:17 AM CDT 04/15/2019 3:00 AM CDT us Rashaun Peoples MD LAB BLOOD ORDERABLES Final R esult [facility] [place] [address] * Hepatitis panel, acute (03/05/2019 8:26 PM CDT) Hep A IgM Nonreactive Nonreactive [facility] Comment: Interpretive Data If test is reported as GRAYZONE, new sample should be drawn in two weeks for testing. Current interpretive data was last revised on 2016. Hep B core IgM Nonreactive Nonreactive [facility] Comment: Interpretive Data If test is reported as GRAYZONE, new sample should be drawn for testing. Current interpretive data was last revised on 2016. Hep C Ab Nonreactive Nonreactive [facility] Comment: Interpretive Data Positive results should be confirmed by a molecular method. If positive, a second separately collected sample should be submitted for Hepatitis C Virus (HCV) RNA Detection and Quantitation by Real-Time Reverse Pulp Piler-PCR (RT-PCR). Current interpretive data was last revised on 2016. HepBsAg Nonreactive Nonreactive [facility] Blood specimen (specimen) 03/05/2019 8:26 PM CDT 03/05/2019 8:41 PM CDT Narrative [facility] - 03/06/2019 12:32 PM CDT Meng Ulrich MD LAB MICROBIOLOGY - GENERAL OR DERABLES Edited Result - Final [facility] [place] [address] from Last 3 Months or Most Recently Relevant to Health Maintenance Insurance Advance Directives For more information, please contact: [phone] Documents on File Type Date Recorded Patient Flight Communications Operator Expl anation ADVANCE DIRECTIVE 05/03/2019 1:58 PM POWER OF RELOCATION COMMISSIONER-MEDICAL ADVANCE DIRECTIVE 05/02/2019 5:43 AM POWER OF RELOCATION COMMISSIONER-MEDICAL ADVANCE DIRECTIVE 04/30/2019 3:45 PM ADVANCE DIRECTIVE 04/27/2019 1:33 PM POWER OF RELOCATION COMMISSIONER-MEDICAL * Full Code (Latest Code Status on [...] 9:21 PM 03/14/2019 6:56 PM Care Teams Accounting Instructor Relationship Specialty Start Date End Date Victoriano Reid MD PCP - General Family Medicine 06/20/19 Rashaun Peoples MD [address] [facility] [address] [place] [address] Medical Oncologist/Factory Machine Computer Operator Medical Oncology 08/07/19 Edelmira Pimentel MD [address] [facility] [address] [place] [address] Surgeon Orthopedic Surgery 09/01/19
--- OUTSIDE RECORDS SUMMARY | 2024-12-04 18:04 | XMS_ITS | Encounter Summary ---
Author Organization [facility] Address [address] [place] [address] Phone Care Team Providers Care Product Designer Name Role Phone Victoriano Reid MD Primary Care Provider [phone] Malissa Joe RN Unavailable Unavailable Malissa Joe RN Unavailable Unavailable Elva Olivares DO Primary Care Provider [phone] [place] [facility] Unavailable Cabrera Smallwood MD Unavailable [phone] Reason for Visit * Reason Comments Medication Refill Encounter Details Date Type Department Care Team (Late st Contact Info) Description 11/20/2023 Refill [facility] - Family Medicine [facility] [address] [place] [id number] Victoriano Reid MD [address] [place] [address] Medication Refill Social History Tobacco Use Types Packs/Day Years Used Date Smoking Tobacco: Every Day Cigarettes Smokeless Tobacco: Never Alcohol Use Standard Drinks/Week Comments Not Currently 0 (1 standard drink = 0.6 oz pur e alcohol) [facility] Utilities Answer Date Recorded In the past 12 months has e electric, gas, oil, or water company threatened to shut off services in your home? Yes 10/22/2023 Social Connection and Isolat ion Panel [NHANES] Answer Date Recorded In a typical week, how many times do you talk on the phone with family, friends, or neighbors? More than three times a week 10/22/2023 How often do you get togethe r with friends or relatives? More than three times a week 10/22/2023 How often do you attend chur ch or moravian services? Never 10/22/2023 Do you belong to any clubs o r organizations such as mu-ism groups, unions, fraternal or athletic groups, or school groups? No 10/22/2023 How often do you attend meet ings of the clubs or organizations you belong to? Never 10/22/2023 Are you , , di vorced, , never , or living with a partner? 10/22/2023 AUDIT-C Answer Date Recorded Q1: How often do you have a drink containing alcohol? Never 10/22/2023 Q2: How many drinks containi ng alcohol do you have on a typical day when you are drinking? Patient does not drink Q3: How often do you have si x or more drinks on one occasion? Never 10/22/2023 Overall Financial Resource Strain (CARDIA) Answe r Date Recorded How hard is it for you to pa y for the very basics like food, housing, medical care, and heating? Not very hard 10/22/2023 PHQ-2 Answer Date Recorded Total Score - Questions 1-9 0 12/14 [facility] - Occupational Stress Questionnaire Answer Date Recorded Do you feel stress - tense, restless, nervous, or anxious, or unable to sleep at night because your mind is troubled all the time - these days? Not at all 10/22/2023 Exercise Vital Sign Answer Date Recorde d On average, how many days pe r week do you engage in moderate to strenuous exercise (like a brisk walk)? Patient declined On average, how many minutes do you engage in exercise at this level? Patient declined 10/22/2023 Hunger Vital Sign Answer Date Recorded Within the past 12 months, y ou worried that your food would run out before you got the money to buy more. Never true 10/22/19 24 Within the past 12 months, t he food you bought just didn't last and you didn't have money to get more. Never true 10/22/2023 PRAPARE - Transportation Answer Date Re corded In the past 12 months, has l ack of transportation kept you from medical appointments or from getting medications? Yes 05/2024 In the past 12 months, has l ack of transportation kept you from meetings, work, or from getting things needed for daily living? No 10/22/2023 Housing Stability Vital Sign Answer Saleem e Recorded In the last 12 months, was t here a time when you were not able to pay the mortgage or rent on time? No 10/22/2023 In the last 12 months, how many places have you lived? 1 10/22/2023 In the last 12 months, was t here a time when you did not have a steady place to sleep or slept in a assisted (including now)? No 10/22/2023 Education Answer Date Recorded What is the [...] Telephone Encounter - Camilla Hauser RN - 11/20/2023 1:53 PM CST Medication failed the protocol, provider to review and approve the medication order if appropriate. Requested Prescriptions Pending Prescriptions Disp Refills acyclovir (ZOVIRAX) 400 MG Tablet [Pharmacy Med Name: ACYCLOVIR 400MG TABLETS] 90 Tablet 1 Sig: TAKE 1 TABLET BY MOUTH THREE TIMES DAILY Not Delegated - Herpes Agents Protocol Failed - 11/20/2023 5:52 AM Failed - This refill cannot be delegated Passed - Visit with relevant provider in past 12 months or upcoming 90 days Recent Visits Date Type Provider Dept 10/23/23 Telemedicine Miriam Prasad, DISPATCHER TOW TRUCK, PHOTO JOURNALIST Osloraine Rogers 03/29/23 Office Visit Victoriano Reid MD [facility] [place] Show[place] recent visits within past 365 days and meeting all other requirements Future Appointments Date Type Provider Dept 12/21/23 Appointment Victoriano Reid MD [facility] [place] Show[place] future appointments within next 90 days and meeting all other requirements baclofen (LIORESAL) 10 MG Tablet [Pharmacy Med Name: BACLOFEN 10MG TABLETS] 90 Tablet 3 Sig: TAKE 1 TABLET BY MOUTH THREE TIMES DAILY NEEDED FOR MUSCLE SPASMS Not Delegated - Muscle Relaxants Protocol Failed - 11/20/2023 5:52 AM Failed - This refill cannot be delegated Failed - Not delegated, patient not between 1 and 65 years of age Passed - Visit with relevant provider in past 12 months or upcoming 90 days Recent Visits Date Type Provider Dept 10/23/23 Telemedicine Miriam Prasad, DISPATCHER TOW TRUCK, PHOTO JOURNALIST [facility] [place] 03/29/23 Office Visit Victoriano Reid MD [facility] [place] Show[place] recent visits within past 365 days and meeting all other requirements Future Appointments Date Type Provider Dept 12/21/23 Appointment Victoriano Reid MD [facility] [place] future appointments within next 90 days and meeting all other requirements ACE REPAIR MECHANIC documented in this encounter Plan of Treatment Upcoming Encounters Date Type Department Care Team (Late st Contact Info) Description 01/02/2025 10:30 AM CDT Procedure Visit [facility] [address] [place] [address] Cabrera Yadav MD [address] [facility] [address] [place] [address] 01/09/2025 1:00 PM CDT Office Visit [facility] - [place] [address] [place] [address] Elva Olivares, DO 2 [facility] [place] [facility] [address] [place] [address] documented as of this encounter Visit Diagnoses Diagnosis Muscle spasm Spasm of muscle documented in this encounter Additional Health Concerns Assessment Noted Time PHQ-9 Depression Total Score: 0 08/15/20 10:00 AM CDT documented as of this encounter Care Teams Product Designer Relationship Specialty Start Date End Date Victoriano Reid MD PCP - General Family Medicine 06/19/19 06/29/24 Elva Olivares DO [address] [facility] [place] [facility] [address] [place] [address] PCP - General Family Medicine 07/01/24 Malissa Joe, RN [place] Nurse Telecommunications Technician 12/03/23 12/03/23 Malissa Joe, RN [place] Nurse Telecommunications Technician 12/05/23 12/05/23 [place], [facility] [place] Radio Sales Account Executive Telecommunications Technician 11/03/24 Cabrera Yadav MD [address] [facility] [address] [place] [address] Consulting Physician Urology 11/07/24 documented as of this encounter
--- OUTSIDE RECORDS SUMMARY | 2024-12-04 18:04 | XMS_ITS | Encounter Summary ---
Author Organization [facility] Address [address] [place] [address] Phone Care Team Providers Care Magician Helper Name Role Phone Victoriano Reid MD Primary Care Provider Elva Olivares DO Primary Care Provider [phone] [place] [facility] Unavailable Cabrera Smallwood MD Unavailable [phone] Reason for Visit * Reason Comments Medication Refill Encounter Details Date Type Department Care Team (Late Contact Info) Description 03/19/2024 Refill [facility] - Family Medicine [facility] [address] [place] [address] Victoriano Reid MD [address] [place] [address] Medication Refill Social History Tobacco Use Types Packs/Day Years Used Date Smoking Tobacco: Every Day Cigarettes Smokeless Tobacco: Never Alcohol Use Standard Drinks/Week Comments Not Currently 0 (1 standard drink = 0.6 oz pur e alcohol) [facility] Utilities Answer Date Recorded In the [...] often do you attend chur ch or gnosticism services? Never 12/20/2023 Do you belong to any clubs o r organizations such as hoahaoism groups, unions, fraternal or athletic groups, or [...] Total Score - Questions 1-9 0 12/14 [facility] - [...] place to sleep or slept in a alf (including now)? No 12/20/2023 Education Answer Date [...] Telephone Encounter - Camilla Hauser RN - 03/19/2024 9:48 AM CDT Needs MARIBEL * Telephone Encounter - Camilla Hauser RN - 03/19/2024 9:48 AM CDT Medication failed the protocol, provider to review and approve the medication order if appropriate. Requested Prescriptions Pending Prescriptions Disp Refills montelukast (SINGULAIR) 10 MG Tablet [Pharmacy Med Name: MONTELUKAST 10MG TABLETS] 90 Tablet 1 Sig: TAKE 1 TABLET BY MOUTH EVERY EVENING Leukotriene Inhibitors Protocol Passed - 03/19/2024 5:51 AM Passed - Visit with relevant provider in past 12 months or upcoming 90 days Recent Visits Date Type Provider Dept 12/06/23 Telemedicine Victoriano Reid MD [facility] 10/23/23 Telemedicine Miriam Prasad APRN, [facility] [place] 03/29/23 Office Visit Victoriano Reid MD [facility] Showing recent visits within past 365 days and meeting all other requirements Future Appointments No visits were found meeting these conditions. Showing future appointments within next 90 days and meeting all other requirements oxybutynin (DITROPAN-XL) 10 MG TABLET SR 24 HR [Pharmacy Med Name: OXYBUTYNIN ER 10MG TABLETS] 90 Tablet 1 Sig: TAKE 1 TABLET BY MOUTH DAILY Urinary Anticholinergics Protocol Passed - 03/19/2024 5:51 AM Passed - Visit with relevant provider in past 12 months or upcoming 90 days Recent Visits Date Type Provider Dept 12/06/23 Telemedicine Victoriano Reid MD [facility] 10/23/23 Telemedicine Miriam Prasad APRN, [facility] [place] 03/29/23 Office Visit Victoriano Reid MD [facility] Showing recent visits within past 365 days and meeting all other requirements Future Appointments No visits were found meeting these conditions. Showing future appointments within next 90 days and meeting all other requirements Passed - GFR greater than or equal to 30 in past 12 months GFR, EST. NONAFRICAN Date Value Ref Range Status 12/20/2023 >60 >=60 Final baclofen (LIORESAL) 10 MG Tablet [Pharmacy Med Name: BACLOFEN 10MG TABLETS] 90 Tablet 1 Sig: TAKE 1 TABLET BY MOUTH THREE TIMES DAILY NEEDED FOR MUSCLE SPASMS Not Delegated - Muscle Relaxants Protocol Failed - 03/19/2024 5:51 AM Failed - This refill cannot be delegated Failed - Not delegated, patient not between 1 and 65 years of age Passed - Visit with relevant provider in past 12 months or upcoming 90 days Recent Visits Date Type Provider Dept 12/06/23 Telemedicine Victoriano Reid MD [facility] 10/23/23 Telemedicine Miriam Prasad APRN, [facility] [place] 03/29/23 Office Visit Victoriano Reid MD [facility] Showing recent visits within past 365 days and meeting all other requirements Future Appointments No visits were found meeting these conditions. Showing future appointments within next 90 days and meeting all other requirements acyclovir (ZOVIRAX) 400 MG Tablet [Pharmacy Med Name: ACYCLOVIR 400MG TABLETS] 90 Tablet 1 Sig: TAKE 1 TABLET BY MOUTH THREE TIMES DAILY Not Delegated - Herpes Agents Protocol Failed - 03/19/2024 5:51 AM Failed - This refill cannot be delegated Passed - Visit with relevant provider in past 12 months or upcoming 90 days Recent Visits Date Type Provider Dept 12/06/23 Telemedicine Victoriano Reid MD [facility] 10/23/23 Telemedicine Miriam Prasad APRN, LORI [facility] 03/29/23 Office Visit Victoriano Reid MD [facility] Showing recent visits within past 365 days and meeting all other requirements Future Appointments No visits were found meeting these conditions. Showing future appointments within next 90 days and meeting all other requirements documented in this encounter Plan of Treatment Upcoming Encounters Date Type Department Care Team (Late st Contact Info) Description 01/02/2025 10:30 AM CDT Procedure Visit [facility] [address] [place] [address] Cabrera Yadav MD [address]2 [facility] [address] [place] [address] 01/09/2025 1:00 PM CDT Office Visit [facility] - Family Medicine - [place] [address] [place] [address] Elva Olivares, DO 2 [facility]. [address] [place] [address] documented as of this encounter Visit Diagnoses Diagnosis Allergic rhinitis, unspecified seasonality, unspecified trigger Neurogenic bladder Neurogenic bladder, NOS Painful bladder spasm Other symptoms involving urinary system Muscle spasm Spasm of muscle documented in this encounter Additional Health Concerns Assessment Noted Time PHQ-9 Depression Total Score: 0 08/15/20 21 10:00 AM CDT documented as of this encounter Care Teams Magician Helper Relationship Specialty Start Date End Date Victoriano Reid MD PCP - General Family Medicine 06/19/19 06/29/24 Elva Olivares DO 2 [facility]. [address] [place] [address] PCP - General Family Medicine 07/01/24 [place], [facility] Merchandising Intern Transmission Repairer 11/03/24 Cabrera Yadav MD [address]2 [facility] [address] [place] [address] Consulting Physician Urology 11/07/24 documented as of this encounter
--- OUTSIDE RECORDS SUMMARY | 2024-12-04 18:04 | XMS_ITS | Encounter Summary ---
Author Organization [facility] Address [address] [place] [address] Phone Care Team Providers Care Senior Customer Service Representative Name Role Phone Victoriano Reid MD Primary Care Provider [phone] Elva Olivares DO Primary Care Provider [phone] [place] [facility] Unavailable Cabrera Smallwood MD Unavailable [phone] Reason for Visit * Reason Comments Medication Refill Encounter Details Date Type Department Care Team (Late Contact Info) Description 12/20/2023 Refill [facility] - Family Medicine [facility] [address] [place] [address] Victoriano Reid MD [address] [place] [address] Medication Refill Social History Tobacco Use Types Packs/Day Years Used Date Smoking Tobacco: Every Day Cigarettes Smokeless Tobacco: Never Alcohol Use Standard Drinks/Week Comments Not Currently 0 (1 standard drink = 0.6 oz pur e alcohol) [facility] Utilities Answer Date Recorded In [...] often do you attend chur ch or jainism services? Never 12/20/2023 Do you belong to any clubs o r organizations such as jewish groups, unions, fraternal or athletic groups, or [...] Total Score - Questions 1-9 0 12/14 [facility] ional Health - Occupational Stress [...] place to sleep or slept in a prison (including now)? No 12/20/2023 Education Answer Date [...] of Assessment Author 0 12/20/2023 11:52 AM AUTO SLIP COVER INSTALLER [employer] Background * Within the last year, have you been humiliated or emotionally abused in other ways by your partner or ex-partner? Answer Date of Assessment Author No 12/20/2023 11:52 AM AUTO SLIP COVER INSTALLER [employer] Background * Within the last year, have you been afraid of your partner or ex-partner? Answer Date of Assessment Author No 12/20/2023 11:52 AM AUTO SLIP COVER INSTALLER [employer] Background * Within the last year, have you been raped or forced to have any kind of sexual activity by your partner or ex-partner? Answer Date of Assessment Author No 12/20/2023 11:52 AM AUTO SLIP COVER INSTALLER [employer] Background * Within the last year, have you been kicked, hit, slapped, or otherwise physically hurt by your partner or ex-partner? Answer Date of Assessment Author No 12/20/2023 11:52 AM AUTO SLIP COVER INSTALLER [employer] Background * Q1: How often do you have a drink containing alcohol? Answer Date of Assessment Author Never 12/20/2023 11:52 AM AUTO SLIP COVER INSTALLER [employer] Background * Q2: How many drinks containing alcohol do you have on a typical day when you are drinking? Answer Date of Assessment Author Patient does not drink 12/20/2023 11:52 AM AUTO SLIP COVER INSTALLER [employer] System Background * Q3: How often do you have six or more drinks on one occasion? Answer Date of Assessment Author Never 12/20/2023 11:52 AM AUTO SLIP COVER INSTALLER [employer] Background documented as of this encounter Miscellaneous Notes * Telephone Encounter - Adelaida Medina RN - 12/20/2023 8:43 AM AUTO SLIP COVER INSTALLER Medication failed the protocol, provider to review and approve the medication order if appropriate. Requested Prescriptions Pending Prescriptions Disp Refills gabapentin (NEURONTIN) 300 MG Capsule [Pharmacy Med Name: GABAPENTIN 300MG CAPSULES] 180 Capsule 1 Sig: TAKE 2 CAPSULES BY MOUTH EVERY 8 HOURS Not Delegated - Anticonvulsants Excluding Benzodiazepines Protocol Failed - 12/20/2023 5:53 AM Failed - This refill cannot be delegated Passed - Visit with relevant provider in past 12 months or upcoming 90 days Recent Visits Date Type Provider Dept 12/06/23 Telemedicine Victoriano Reid MD [facility] 10/23/23 Telemedicine Miriam Prasad APRN, [facility]23 [facility] Showing recent visits within past 365 days and meeting all other requirements Future Appointments Date Type Provider Dept 12/21/23 Appointment Victoriano Reid MD [facility] Showing future appointments within next 90 days and meeting all other requirements SLIP COVER INSTALLER documented in this encounter Plan of Treatment Upcoming Encounters Date Type Department Care Team (Late st Contact Info) Description 01/02/2025 10:30 AM CDT Procedure Visit [facility] [address] [place] [address] Cabrera Yadav MD [address] [place] [address] 01/09/2025 1:00 PM CDT [facility] Family [facility] [address] [place] [address] Elva Olivares DO 2 [address] [facility]. 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) documented in this encounter Additional Health Concerns Assessment Noted Time PHQ-9 Depression Total Score: 0 08/15/20 21 10:00 AM CDT documented as of this encounter Care Teams Senior Customer Service Representative Relationship Specialty Start Date End Date Victoriano Reid MD PCP - General Family Medicine 06/19/19 06/29/24 Elva Olivares DO 2 [address] [facility] [facility] [address] [place] [address] PCP - General Family Medicine 07/01/24 [place], [facility] Polymerization Oven Operator Combined Rail Operator 11/03/24 Cabrera Yadav MD [address] [facility] [address] [place] [address] Consulting Physician Urology 11/07/24 documented as of this encounter
--- OUTSIDE RECORDS SUMMARY | 2024-12-04 18:04 | XMS_ITS | Encounter Summary ---
Author Organization [facility] Address [address] [place] [address] Phone Care Team Providers Care Bag Machine Helper Name Role Phone Victoriano Reid MD Primary Care Provider [phone] Malissa Joe RN Unavailable Unavailable Malissa Joe RN Unavailable Unavailable Elva Olivares DO Primary Care Provider [phone] [place] [employer] Unavailable Unaabdirizaki Cabrera Dodge MD Unavailable [phone] Encounter Details Date Type Department Care Team (Late st Contact Info) Description 03/29/2021 Lab Requisition [facility] [address] [place] [id number] Victoriano Reid MD [address] [place] [address] Acute cystitis without hematuria; Neuromuscular dysfunction of bladder, unspecified Social History Tobacco Use Types Packs/Day Years Used Date Smoking Tobacco: Every Day Cigarettes Smokeless Tobacco: Never Alcohol Use Standard Drinks/Week Comments Not Currently 0 (1 standard drink = 0.6 oz pur e alcohol) PHQ-2 Answer Date Recorded PHQ-2 Score 0 06/19/2019 Education Answer Date Recorded What is the [...] Description 01/02/2025 10:30 AM CDT Procedure Visit [facility] #[address] [place] [address] Cabrera Yadav MD #2 [facility] [address] [place] [address] 01/09/2025 1:00 PM CDT Office Visit [facility] - Family Medicine [facility] [address]2 [place] [address] Elva Olivares, DO 2 [facility]. [address] [place] [address] documented as of this encounter Procedures Procedure Name Priority Date/Time Associated Diagnosis Comments URINALYSIS REFLEX IF INDICATED BY ABNORMAL RESULTS Routine 03/29/2021 11:30 AM CDT Acute cystitis without hematuria Neuromuscular dysfunction of bladder, unspecified CULTURE, URINE Routine 03/29/2021 11:30 AM CDT Acute cystitis without hematuria Neuromuscular dysfunction of bladder, unspecified documented in this encounter Results * CULTURE, URINE (03/29/2021 11:30 AM CDT) CULTURE RESULTS STAPHYLOCOCCU S, COAGULASE NEGATIVE 03/30/2021 8:24 PM CDT [facility] Comment:NO FURTHER WORKUP PE RFORMED Culture No Phlebotomy Charged / Unknown 03/29/2021 11:30 AM CDT 03/29/2021 1:04 PM CDT Victoriano Reid MD MICROBIOLOGY - GENERAL ORDERABLE S Final Result [facility] [address] [place] [address], * (ABNORMAL) URINALYSIS REFLEX IF INDICATED BY ABNORMAL RESULTS (03/29/2021 11:30 AM CDT) SPECIFIC GRAVITY 1.010 1.003 - 1.030 03/29/2021 1:31 PM CDT [facility] URINE PH 8.0 5.0 - 9.0 03/29/2021 1:31 PM CDT [facility] WBC ESTERASE 500 /uL(A) Negative 03/29/2021 1:31 PM CDT [facility] NITRITE Positive(A) Negative 03/29/2021 1:31 PM CDT [facility] PROTEIN, RANDOM URINE 100 mg/dL(A) Negative 03/29/2021 1:31 PM CDT [facility] URINE GLUCOSE, QUAL Negative Negative 03/29/2021 1:31 PM CDT [facility] URINE KETONES Negative Negative 03/29/2021 1:31 PM CDT [facility] UROBILINOGEN Normal Normal mg/dL 03/29/2021 1:31 PM CDT [facility] URINE BILIRUBIN Negative Negative 1:31 PM CDT [facility] URINE BLOOD 250 /uL(A) Negative josefa/ul 03/29/2021 1:31 PM CDT [facility] URINALYSIS COLOR Yellow 03/29/2021 1:31 PM CDT [facility] URINALYSIS CLARITY Slightly Cloudy 03/29/2021 1:31 PM CDT [facility] WBC (Urine) 6-10(A) Negative, 0-5 /hpf 03/29/2021 1:31 PM CDT [facility] URINE RBC'S 21-50(A) Negative, 0-2 /hpf 03/29/2021 1:31 PM CDT [facility] EPITHELIAL CELL[facility] Occasional /lpf 03/29/2021 1:31 PM [address] [facility] BACTERIA, URINE Few(A) Negative /hpf 03/29/2021 1:[address] PM [address] [facility] CRYSTALS Triple phosphate 03/29/2021 1:31 PM [address] 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 06/05/2019 04/15/2021 7:28 AM CDT Assessment Noted Time PHQ-9 Depression Total Score: 0 10/24/19 20 11:16 AM MOBILE PATROL OFFICER documented as of this encounter Care Teams Bag Machine Helper Relationship Specialty Start Date End Date Victoriano Reid MD PCP - General Family Medicine 06/19/19 06/29/24 Elva Olivares DO [address] [address] PCP - General Family Medicine 07/01/24 Malissa Joe, RN [place] Nurse Supervisor Rework 12/03/23 12/03/23 Malissa Joe, RN [place] Nurse Supervisor Rework 12/05/23 12/05/23 [place] LSW [place] Marine Water Tender Supervisor Rework 11/03/24 Cabrera Yadav MD #[address] [address] Consulting Physician Urology 11/07/24 documented as of this encounter
--- OUTSIDE RECORDS SUMMARY | 2024-12-04 18:04 | XMS_ITS | Encounter Summary ---
Author Organization [facility] Address [address] [place] [address] Phone Care Team Providers Care News Videotape Editor Name Role Phone Victoriano Reid MD Primary Care Provider [phone] Elva Olivares DO Primary Care Provider [phone] Hitnon [facility] Unavailable Cabrera Smallwood MD Unavailable [phone] Reason for Visit * Reason Comments Medication Refill Encounter Details Date Type Department Care Team (Late Contact Info) Description 02/18/2024 Refill [facility] Medical Group - Family Medicine [facility] [address] [place] [address] Victoriano Reid MD [address] [place] [address] Medication Refill Social History Tobacco [...] often do you attend chur ch or jain services? Never 12/20/2023 Do you belong to any clubs o r organizations such as cheondoism groups, unions, fraternal or athletic groups, or [...] Total Score - Questions 1-9 0 12/14 [facility] - Occupational Stress [...] place to sleep or slept in a care home (including now)? No 12/20/2023 Education Answer Date [...] Telephone Encounter - Camilla Hauser RN - 02/18/2024 10:18 AM CDT Medication failed the protocol, provider to review and approve the medication order if appropriate. Requested Prescriptions Pending Prescriptions Disp Refills apixaban (Eliquis) 5 MG Tablet [Pharmacy Med Name: ELIQUIS 5MG TABLETS] 180 Tablet 1 Sig: TAKE 1 TABLET BY MOUTH TWICE DAILY Not Delegated - DOACs Protocol Failed - 02/18/2024 5:48 AM Failed - This refill cannot be delegated Passed - CBC on record in the past year WBC Date Value Ref Range Status 12/20/2023 9.25 4.00 - 12.00 10(3)/mcL Final WBC ESTERASE Date Value Ref Range Status 01/23/2024 500 /uL (A) Negative Final RBC Date Value Ref Range Status 12/20/2023 4.47 3.80 - 5.30 10(6)/mcL Final HEMATOCRIT (HCT) Date Value Ref Range Status 12/20/2023 44.7 36.0 - 47.0 % Final HEMOGLOBIN (HGB) Date Value Ref Range Status 12/20/2023 14.7 12.0 - 15.8 g/dL Final MCV Date Value Ref Range Status 12/20/2023 100.0 (H) 82.0 - 96.0 fL Final MCH Date Value Ref Range Status 12/20/2023 32.9 26.0 - 34.0 pg Final MCHC Date Value Ref Range Status 12/20/2023 32.9 31.0 - 36.0 g/dL Final Passed - Visit with relevant provider in past 12 months or upcoming 90 days Recent Visits Date Type Provider Dept 12/06/23 Telemedicine Victoriano Reid MD [facility] 10/23/23 Telemedicine Miriam Pr[facility]ad APRN, [facility] Office Visit Victoriano Reid MD [facility] Showing recent visits within past 365 days and meeting all other requirements Future Appointments No visits were found meeting these conditions. Showing future appointments within next 90 days and meeting all other requirements Passed - CMP on record in the past year SODIUM Date Value Ref Range Status 12/20/2023 144 136 - 145 mmol/L Final POTASSIUM Date Value Ref Range Status 12/20/2023 4.2 3.5 - 5.1 mmol/L Final CHLORIDE Date Value Ref Range Status 12/20/2023 109 (H) 98 - 107 mmol/L Final CO2, VENOUS Date Value Ref Range Status 12/20/2023 27 22 - 30 mmol/L Final ANION GAP Date Value Ref Range Status 12/20/2023 12.2 <18.0 mmol/L Final GLUCOSE Date Value Ref Range Status 12/20/2023 136 (H) 70 - 99 mg/dL Final BUN Date Value Ref Range Status 12/20/2023 14 10 - 20 mg/dL Final CREATININE, BLOOD Date Value Ref Range Status 12/20/2023 0.84 0.60 - 1.00 mg/dL Final BUN/CREATININE RATIO Date Value Ref Range Status 12/20/2023 17 12 - 20 ratio Final TOTAL PROTEIN Date Value Ref Range Status 12/20/2023 6.9 6.3 - 8.2 g/dL Final ALBUMIN Date Value Ref Range Status 12/20/2023 3.8 3.5 - 5.0 g/dL Final A/G RATIO Date Value Ref Range Status 12/20/2023 1.2 1.0 - 2.2 Final CALCIUM Date Value Ref Range Status 12/20/2023 9.8 8.7 - 10.5 mg/dL Final T BILI Date Value Ref Range Status 12/20/2023 0.3 0.2 - 1.2 mg/dL Final SGOT (AST) Date Value Ref Range Status 12/20/2023 12 5 - 34 U/L Final SGPT (ALT) Date Value Ref Range Status 12/20/2023 10 0 - 55 U/L Final ALKALINE PHOSPHATASE Date Value Ref Range Status 12/20/2023 69 40 - 150 U/L Final GFR, EST. NONAFRICAN Date Value Ref Range Status 12/20/2023 >60 >=60 Final GFR, EST. Date Value Ref Range Status 12/20/2023 >60 >=60 Final GFR, ESTIMATED Date Value Ref Range Status 12/20/2023 >60 >=60 Final Comment: Creatinine Clearance is the preferred criteria for selecting drug dose adjustments in renally impaired patients. The GFR is provided as additional pertinent clinical information. GFR is reported in mL/min/1.73 sq m. Calculation based on the Chronic Kidney Disease Epidemiology Collaboration (CKD- EPI) equation refitwithout adjustment for race. Passed - Creatinine and GFR on record in the past year CREATININE, BLOOD Date Value Ref Range Status 12/20/2023 0.84 0.60 - 1.00 mg/dL Final GFR, ESTIMATED Date Value Ref Range Status 12/20/2023 >60 >=60 Final Comment: Creatinine Clearance is the preferred criteria for selecting drug dose adjustments in renally impaired patients. The GFR is provided as additional pertinent clinical information. GFR is reported in mL/min/1.73 sq m. Calculation based on the Chronic Kidney Disease Epidemiology Collaboration (CKD- EPI) equation refitwithout adjustment for race. GFR, EST. NONAFRICAN Date Value Ref Range Status 12/20/2023 >60 >=60 Final loratadine (CLARITIN) 10 MG Tablet [Pharmacy Med Name: LORATADINE 10MG TABLETS] 90 Tablet 1 Sig: TAKE 1 TABLET BY MOUTH DAILY Non-sedating Antihistamines Protocol Passed - 02/18/2024 5:48 AM Passed - Visit with relevant provider in past 12 months or upcoming 90 days Recent Visits Date Type Provider Dept 12/06/23 Telemedicine [facility] 10/23/23 Telemedicine Miriam Prasad APRN, LORI [facility] 03/29/23 Office Visit Victoriano Reid MD [facility] Showing recent visits within past 365 days and meeting all other requirements Future Appointments No visits were found meeting these conditions. Showing future appointments within next 90 days and meeting all other requirements gabapentin (NEURONTIN) 300 MG Capsule [Pharmacy Med Name: GABAPENTIN 300MG CAPSULES] 180 Capsule 1 Sig: TAKE 2 CAPSULES BY MOUTH EVERY 8 HOURS Not Delegated - Anticonvulsants Excluding Benzodiazepines Protocol Failed - 02/18/2024 5:48 AM Failed - This refill cannot be delegated Passed - Visit with relevant provider in past 12 months or upcoming 90 days Recent Visits Date Type Provider Dept 12/06/23 Telemedicine Victoriano Reid MD [facility] 10/23/23 Telemedicine Miriam Prasad APRN, LORI [facility] 03/29/23 Office Visit Victoriano Reid MD [facility] Showing recent visits within past 365 days and meeting all other requirements Future Appointments No visits were found meeting these conditions. Showing future appointments within next 90 days and meeting all other requirements documented in this encounter Plan of Treatment Upcoming Encounters Date Type Department Care Team (Late st Contact Info) Description 01/02/2025 10:30 AM CDT Procedure Visit [facility] [address] [place] [address] Cabrera Yadav MD [address] [facility] [address] [place] [address] 01/09/2025 1:00 PM CDT Office Visit [facility] Medical Group - Family Medicine - [place] [address] [facility] [place] [address] Elva Olivares, DO 2 [facility] 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) Allergic rhinitis, unspecified seasonality, unspecified trigger Neurogenic bladder Neurogenic bladder, NOS documented in this encounter Additional Health Concerns Assessment Noted Time PHQ-9 Depression Total Score: 0 08/15/20 21 10:00 AM CDT documented as of this encounter Care Teams News Videotape Editor Relationship Specialty Start Date End Date Victoriano Reid MD PCP - General Family Medicine 06/19/19 06/29/24 Elva Olivares DO 2 [facility] [address] [place] [address] PCP - General Family Medicine 07/01/24 [place], [facility] Director Of User Experience Nail Specialist 11/03/24 Cabrera Yadav MD [address] [facility] [address] [place] [address] Consulting Physician Urology 11/07/24 documented as of this encounter
--- OUTSIDE RECORDS SUMMARY | 2024-12-04 18:04 | XMS_ITS | Encounter Summary ---
Author Organization [facility] Address [address] [facility] [place] [address] Phone Care Team Providers Care Student Support Advisor Name Role Phone Victoriano Reid MD Primary Care Provider Elva Olivares DO Primary Care Provider [phone] [place] HOTEL MAINTENANCE TECHNICIAN Unavailable Unavai Cabrera Dodge MD Unavailable [phone] Encounter Details Date Type Department Care Team (Late st Contact Info) Description 03/19/2024 Lab Requisition [facility] [address] [place] [id number] Victoriano Reid MD [address] [place] [address] Personal history of urinary (tract) infections; Encounter for fitting and adjustment of urinary device Social History Tobacco Use Types Packs/Day Years Used Date Smoking Tobacco: Every Day Cigarettes Smokeless Tobacco: Never Alcohol Use Standard Drinks/Week Comments Not Currently 0 (1 standard drink = 0.6 oz pur e alcohol) [facility] Utilities Answer Date Recorded In the past 12 months has [employer] electric, gas, oil, or water company threatened [...] often do you attend chur ch or zoroastrian services? Never 12/20/2023 Do you belong to any clubs o r organizations such as religion groups, unions, fraternal or athletic groups, or [...] Score - Questions 1-9 0 12/14 [facility] of Occupat ional Health - Occupational [...] place to sleep or slept in a long-term (including now)? No 12/20/2023 Education Answer Date [...] Description 01/02/2025 10:30 AM CDT Procedure Visit [facility] [address] [place] [id number] Cabrera Yadav MD [address] [facility] [address] [place] [address] 01/09/2025 1:00 PM CDT Office Visit [facility] - [facility] Medicine - [place] [address] [place] [address] Elva Olivares, DO 2 [facility] [address] [facility]. [address] [place] [address] documented as of this encounter Procedures Procedure Name Priority Date/Time Associated Diagnosis Comments URINALYSIS REFLEX IF INDICATED BY ABNORMAL RESULTS Routine 03/19/2024 2:45 PM CDT Personal history of urinary (tract) infections Encounter for fitting and adjustment of urinary device CULTURE, URINE Routine 03/19/2024 2:45 PM CDT Personal history of urinary (tract) infections Encounter for fitting and adjustment of urinary device documented in this encounter Results * CULTURE, URINE (03/19/2024 2:45 PM CDT) CULTURE RESULTS KLEBSIELLA OXYTOCA 03/21/2024 3:42 PM CDT [facility] C[facility] RESULTS ESCHERICHIA COLI 03/21/2024 3:42 PM CDT [facility] Culture Non-Phlebotomy Collection / Unknown 03/19/2024 2:45 PM CDT 03/19/2024 3:38 PM CDT Narrative Organism Antibiotic Method Susceptibility Klebsiella oxytoca Ampicillin/sulbactam [facility] VITEK II 4 mcg/ml: Susceptible Klebsiella oxytoca Cefepime [facility] V[facility] II <=1 mcg/ml: Susceptible Klebsiella oxytoca Ceftriaxone [facility] II <=1 mcg/ml: Susceptible Klebsiella oxytoca Gentamicin [facility] II <=1 mcg/ml: Susceptible Klebsiella oxytoca Levofloxacin [facility] II <=0.12 mcg/ml: Susceptible Klebsiella oxytoca Meropenem [facility] II <=0.25 mcg/ml: Susceptible Klebsiella oxytoca Piperacillin/Tazobactam [facility] II <=4 mcg/ml: Susceptible Klebsiella oxytoca Tobramycin [facility] II <=1 mcg/ml: Susceptible Klebsiella oxytoca Trimeth/Sulfamethoxazole [facility] II <=20 mcg/ml: Susceptible Escherichia coli Ampicillin [facility] II 4 mcg/ml: Susceptible Escherichia coli Ampicillin/sulbactam [facility] II <=2 mcg/ml: Susceptible Escherichia coli Cefazolin [facility] II <=4 mcg/ml: Susceptible Escherichia coli Cefepime [facility] II <=1 mcg/ml: Susceptible Escherichia coli Ceftriaxone [facility] II <=1 mcg/ml: Susceptible Escherichia coli Gentamicin [facility] II <=1 mcg/ml: Susceptible Escherichia coli Levofloxacin [place] VITEK II <=0.12 mcg/ml: Susceptible Escherichia coli Meropenem SF VITEK II <=0.25 mcg/ml: Susceptible Escherichia coli Piperacillin/Tazobactam [place] VITEK II <=4 mcg/ml: Susceptible Escherichia coli Tobramycin SF VITEK II <=1 mcg/ml: Susceptible Escherichia coli Trimeth/Sulfamethoxazole [place] VITEK I I <=20 mcg/ml: Susceptible us Victoriano Reid MD MICROBIOLOGY - GENERAL ORDERABLE S Final Result [facility] [address] [place] [address], * (ABNORMAL) URINALYSIS REFLEX IF INDICATED BY ABNORMAL RESULTS (03/19/2024 2:45 PM CDT) SPECIFIC GRAVITY 1.010 1.003 - 1.030 03/19/2024 4:01 PM CDT [facility] URINE PH 7.0 5.0 - 9.0 03/19/2024 4:01 PM CDT [facility] WBC ESTERASE 500 /uL(A) Negative 03/19/2024 4:01 PM CDT [facility] NITRITE Positive(A) Negative 03/19/2024 4:01 PM CDT [facility] PROTEIN, RANDOM URINE 15 mg/dL(A) Negative 03/19/2024 4:01 PM CDT [facility] URINE GLUCOSE, QUAL Negative Negative 03/19/2024 4:01 PM CDT [facility] URINE KETONES Negative Negative 03/19/2024 4:01 PM CDT [facility] UROBILINOGEN Normal Normal mg/dL 03/19/2024 4:01 PM CDT [facility] URINE BLOOD 150 /uL(A) Negative josefa/ul 03/19/2024 4:01 PM CDT [facility] URINALYSIS COLOR Yellow 03/19/2024 4:01 PM CDT [facility] URINALYSIS CLARITY Slightly Cloudy 03/19/2024 4:01 PM CDT [facility] WBC (Urine) 21-50(A) Negative, 0-5 /hpf 03/19/2024 4:01 PM CDT [facility] URINE RBC'S 21-50(A) Negative, 0-2 /hpf 03/19/2024 4:01 PM CDT [facility] EPITHELIAL CELLS Occasional /lpf 03/19/2024 4:01 PM CDT [facility] BACTERIA, URINE Many(A) Negative /hpf 03/19/2024 4:01 PM CDT [facility] Urine Non-Phlebotomy Collection / Unknown 03/19/2024 2:45 PM CDT 03/19/2024 3:38 PM CDT Victoriano Reid MD URINE ORDERABLES Final Result [facility] [address] [place] [address] documented in this encounter Visit Diagnoses Diagnosis Personal history of urinary (tract) infections Encounter for fitting and adjustment of urinary device documented in this encounter Additional Health Concerns Assessment Noted Time PHQ-9 Depression Total Score: 0 08/15/20 21 10:00 AM CDT documented as of this encounter Care Teams Student Support Advisor Relationship Specialty Start Date End Date Victoriano Reid MD PCP - General Family Medicine 06/19/19 06/29/24 Elva Olivares DO 2 [facility]. [address] [place] [address] PCP - General Family Medicine 07/01/24 [place] LSW [place] Hide Inspector Forestry Workers 11/03/24 Cabrera Yadav MD #2 [facility] [address] [place] [address] Consulting Physician Urology 11/07/24 documented as of this encounter
--- OUTSIDE RECORDS SUMMARY | 2024-12-04 18:04 | XMS_ITS | Encounter Summary ---
Author Organization [facility] Address [address] [place] [address] Phone Care Team Providers Care Management Trainee Program Stores Name Role Phone Victoriano Reid MD Primary Care Provider [phone] Malissa Joe RN Unavailable Unavailable Malissa Joe RN Unavailable Unavailable Elva Olivares DO Primary Care Provider [phone] [place] COMMODITY BUYER Unavailable Cabrera Smallwood MD Unavailable [phone] Reason for Visit * Reason Comments Medication Refill Encounter Details Date Type Department Care Team (Late st Contact Info) Description 10/24/2022 Refill [facility] [address] [place] [address] Victoriano Reid MD [address] [place] [address] Medication Refill Social History Tobacco Use Types [...] Telephone Encounter - Yara Peacock RN - 10/24/2022 9:51 AM BUSINESS OPERATIONS DIRECTOR Per nursing clinical judgement, provider to review and approve the medication(s) order(s) if appropriate. Requested Prescriptions Pending Prescriptions Disp Refills ergocalciferol (VITAMIN D) 63150 UNIT Capsule [Pharmacy Med Name: VITAMIN D2 50,000IU (ERGO) CAP RX] 12 Capsule 3 Sig: TAKE ONE CAPSULE BY MOUTH ONCE A WEEK ON SUNDAY Vitamin Supplements (Adult) Protocol Passed - 10/24/2022 9:40 AM Passed - Visit with relevant provider in past 12 months or upcoming 90 days Recent Visits Date Type Provider Dept 09/19/22 Office Visit Victoriano Reid MD [facility] 01/05/22 Office Visit Nia Abbott PAC [facility] Showing recent visits within past 365 days and meeting all other requirements Future Appointments No visits were found meeting these conditions. Showing future appointments within next 90 days and meeting all other requirements Passed - Vitamin D less than 1.25mg NESS OPERATIONS DIRECTOR documented in this encounter Plan of Treatment Upcoming Encounters Date Type Department Care Team (Late st Contact Info) Description 01/02/2025 10:30 AM CDT Procedure Visit [facility] [address] [place] [address] Cabrera Yadav MD [address], [address] [address] 01/09/2025 1:00 PM CDT Office Visit [facility] - Family Medicine - [place] [address] [place] [address] EliseElva jensen DO 2 [facility] [address] [place] [address] documented as of this encounter Visit Diagnoses Diagnosis Vitamin D deficiency Unspecified vitamin D deficiency documented in this encounter Additional Health Concerns Assessment Noted Time PHQ-9 Depression Total Score: 0 08/15/20 21 10:00 AM CDT documented as of this encounter Care Teams Management Trainee Program Stores Relationship Specialty Start Date End Date Victoriano Reid MD PCP - General Family Medicine 06/19/19 06/29/24 Elva Olivares DO 2 [facility] [address] [place] [address] PCP - General Family Medicine 07/01/24 Malissa Joe, RN [place] Nurse Wine Maker 12/03/23 12/03/23 Malissa Joe, RN [place] Nurse Wine Maker 12/05/23 12/05/23 [place], COMMODITY BUYER [place] Financial Project Manager Wine Maker 11/03/24 Cabrera Yadav MD #2 [facility] [address] [place] [address] Consulting Physician Urology 11/07/24 documented as of this encounter
--- OUTSIDE RECORDS SUMMARY | 2024-12-04 18:04 | XMS_ITS | Continuity of Care Document ---
Author Organization [facility] Address [address] [place] [address] [place] [address] Phone Care Team Providers Care Substation Engineer Name Role Phone Jason Tejada MD Unavailable Unavailable Procedures Procedure Date Eye Exam & Treatment Advance Directives Directive Yes / No Effective Date File Name No Information Encounters Encounter Description Practice Location Reason(s) For Visit Diagnoses Date Provider Providers Copied on Encounter [facility], [id number] [place] [address] [address], [place], [place], [id number], [place] tel:[phone] [facility] No Information [address]. [address] [facility] [address], [place], [place], [id number], [place]. tel:[phone] Family History Family Member Type Diagnosis Age At Onset No Information Payers Payer name Insurance type Covered green party ID Authoriza tion(s) Medicaid [facility] [id number] Social History Type Description Quantity Date Captured Comments Sex Female Smoking Status No Information Chief Complaint And Reason For Visit No Information Reason For Referral Reason For Referral No Information History Of Present Illness Encounter Date Complaint History Of Prese nt Illness No Information Functional Status Date Functional Assessmen t No Information Instructions Date Instruction Additional Infor mation No Information Assessments Type Assessment Date No Information Patient Care Teams Name Effective Dates (start - stop) Status Members No Information
--- OUTSIDE RECORDS SUMMARY | 2024-12-04 18:04 | XMS_ITS | Encounter Summary ---
Author Organization [facility] Address [address] [place] [address] Phone Care Team Providers Care Radio Television Technical Director Name Role Phone Victoriano Reid MD Primary Care Provider [phone] Malissa Joe RN Unavailable Unavailable Malissa Joe RN Unavailable Unavailable Elva Olivares DO Primary Care Provider [phone] [place] CORPORATE PLANNING MANAGER Unavailable Unaabdirizaki Cabrera Dodge MD Unavailable [phone] Encounter Details Date Type Department Care Team (Late st Contact Info) Description 09/07/2020 Lab Requisition [facility] Laboratory Services [address] [place] [id number] Victoriano Reid MD #1 [place] [address] Neuromuscular dysfunction of bladder, unspecified; Urinary tract infection, site not specified; Personal history of urinary (tract) infections Social History Tobacco Use Types Packs/Day Years [...] Description 01/02/2025 10:30 AM CDT Procedure Visit [facility] UROLOGY #2 [place] [address] Cabrera Yadav MD #2 [facility], [facility] [address] [place] [address] 01/09/2025 1:00 PM CDT Office Visit [facility] - [place] #2 [place] [address] Elva Olivares, DO 2 [facility]. [address] [place] [address] documented as of this encounter Procedures Procedure Name Priority Date/Time Associated Diagnosis Comments CULTURE, URINE Routine 09/07/2020 5:00 PM REFRIGERATION ENGINEER Neuromuscular dysfunction of bladder, unspecified Urinary tract infection, site not specified Personal history of urinary (tract) infections documented in this encounter Results * CULTURE, URINE (09/07/2020 5:00 PM REFRIGERATION ENGINEER) CULTURE RESULTS STAPHYLOCOCCUS AUREUS 09/11/2020 6:33 AM REFRIGERATION ENGINEER [facility] CULTURE RESULTS ALSO MIXED GROWTH OF DISTAL URETHRA CONTAMINANTS. 09/11/2020 6:33 AM REFRIGERATION ENGINEER [facility] Culture URINE SPECIMEN / Unknown No Phlebotomy Charged / Unknown 09/07/2020 5:00 PM REFRIGERATION ENGINEER 09/07/2020 5:39 PM REFRIGERATION ENGINEER Narrative Organism Antibiotic Method Susceptibility Staphylococcus aureus Gentamicin [facility] VITEK II >=16 mcg/ml: Resistant Staphylococcus aureus Nitrofurantoin [facility] V[facility] II <=16 mcg/ml: Susceptible Staphylococcus aureus Oxacillin [facility] V[facility]K II <=0.25 mcg/ml: Susceptible Staphylococcus aureus Tetracycline [facility] VITEK II <=1 mcg/ml: Susceptible Staphylococcus aureus Trimeth/Sulfamethoxazole [facility] RANDY II <=10 mcg/ml: Susceptible Staphylococcus aureus Vancomycin [facility] VITEK II <=0.5 mcg/ml: Susceptible us Victoriano Reid MD MICROBIOLOGY - GENERAL ORDERABLE S Final Result [facility] [address] [place] [address], documented in this encounter Visit Diagnoses Diagnosis Neuromuscular dysfunction of bladder, unspecified Urinary tract infection, site not specified Personal history of urinary (tract) infections documented in this encounter Additional Health Concerns Infection Onset Date Last Indicated Resolved Time 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 [address] [place] [address] PCP - General Family Medicine 07/01/24 Malissa Joe, RN [place] Nurse Network Architect 12/03/23 12/03/23 Malissa Joe RN [place] Nurse Network Architect 12/05/23 12/05/23 [place], [facility] Mast Maker Network Architect 11/03/24 Cabrera Yadav MD #2 [facility] [address] [place] [address] Consulting Physician Urology 11/07/24 documented as of this encounter
--- OUTSIDE RECORDS SUMMARY | 2024-12-04 18:04 | XMS_ITS | Encounter Summary ---
Author Organization [facility] Address [address] [place] [address] Phone Care Team Providers Care Assistant Brand Manager Name Role Phone Victoriano Reid MD Primary Care Provider [phone] Malissa Joe RN Unavailable Unavailable Malissa Joe RN Unavailable Unavailable Elva Olivares DO Primary Care Provider [phone] H[place] HAIR SPECIALIST Unavailable Unaabdirizaki Cabrera Dodge MD Unavailable [phone] Encounter Details Date Type Department Care Team (Late st Contact Info) Description 04/25/2021 Lab Requisition [facility] Laboratory Services [address] [place] [phone] Victoriano Reid MD #1 [place] [address] Neuromuscular dysfunction of bladder, unspecified Social History [...] Description 01/02/2025 10:30 AM CDT Procedure Visit [facility] PHYSICIAN [facility] UR[facility] #2 [place] [address] Cabrera Yadav MD #2 [facility] [address] [place] [address] 01/09/2025 1:00 PM CDT Office Visit [facility] Medical Group - Family Medicine [facility] #2 [facility] [place] [phone] Elva Olivares, DO 2 [facility]. [address] [place] [address] documented as of this encounter Procedures Procedure Name Priority Date/Time Associated Diagnosis Comments URINALYSIS REFLEX IF INDICATED BY ABNORMAL RESULTS Routine 04/25/2021 4:00 PM CDT Neuromuscular dysfunction of bladder, unspecified CULTURE, URINE Routine 04/25/2021 4:00 PM CDT Neuromuscular dysfunction of bladder, unspecified documented in this encounter Results * CULTURE, URINE (04/25/2021 4:00 PM CDT) CULTURE RESULTS STAPHYLOCOCCU S, COAGULASE NEGATIVE 05/01/2021 7:37 AM CDT [facility] Urine Non-Phlebotomy Collection / Unknown 04/25/2021 4:00 PM CDT 04/25/2021 5:20 PM CDT Narrative Organism Antibiotic Method Susceptibility Staphylococcus Coagulase Negative Gentamicin [facility] SINGH 22 mm: Susceptible Staphylococcus Coagulase Negative Nitrofurantoin [facility] 23 mm: Susceptible Staphylococcus Coagulase Negative Oxacillin [facility] Resistant Comment:VERIFIED BY KAMI SINGH Staphylococcus Coagulase Negative Tetracycline [facility] SINGH 29 mm: Susceptible Staphylococcus Coagulase Negative Trimeth/Sulfamethoxazole [facility] SINGH 22 mm: Susceptible Staphylococcus Coagulase Negative Vancomycin ETEST 0.25 mcg/ml: Susceptible us Victoriano Reid MD MICROBIOLOGY - GENERAL ORDERABLE S Final Result [facility] [address] [place] [address], * (ABNORMAL) URINALYSIS REFLEX IF INDICATED BY ABNORMAL RESULTS (04/25/2021 4:00 PM CDT) Pathologist [facility] SPECIFIC GRAVITY 1.010 1.003 - 1.030 04/25/2021 5:43 PM CDT [facility] URINE PH 8.0 5.0 - 9.0 04/25/2021 5:43 PM CDT [facility] WBC ESTERASE 500 /uL(A) Negative 04/25/2021 5:43 PM CDT [facility] NITRITE Positive(A) Negative 04/25/2021 5:43 PM CDT [facility] PROTEIN, RANDOM URINE 100 mg/dL(A) Negative 04/25/2021 5:43 PM CDT [facility] URINE GLUCOSE, QUAL Negative Negative 04/25/2021 5:43 PM CDT [facility] URINE KETONES Negative Negative 04/25/2021 5:43 PM CDT [facility] UROBILINOGEN Normal Normal mg/dL 04/25/2021 5:43 PM CDT [facility] URINE BILIRUBIN Negative Negative 5:43 PM CDT [facility] URINE BLOOD 250 /uL(A) Negative josefa/ul 04/25/2021 5:43 PM CDT [facility] URINALYSIS COLOR Dark Yellow 04/25/2021 5:43 PM CDT [facility] URINALYSIS CLARITY Very Cloudy 04/25/2021 5:43 PM CDT [facility] WBC (Urine) 6-10(A) Negative, 0-5 /hpf 04/25/2021 5:43 PM CDT [facility] URINE RBC'S 21-50(A) Negative, 0-2 /hpf 04/25/2021 5:43 PM CDT [facility] EPITHELIAL CELLS Occasional /lpf 04/25/2021 5:43 PM CDT [facility] BACTERIA, URINE Many(A) Negative /hpf 04/25/2021 5:43 PM CDT [facility] Urine Non-Phlebotomy Collection / Unknown 04/25/2021 4:00 PM CDT 04/25/2021 5:20 PM CDT us Victoriano Reid MD URINE ORDERABLES Final Result [facility] #[address] [place] [address] documented in this encounter Visit Diagnoses Diagnosis Neuromuscular dysfunction of bladder, unspecified documented in this encounter Additional Health Concerns Assessment Noted Time PHQ-9 Depression Total Score: 0 10/24/19 20 11:16 AM CHROME TANNER documented as of this encounter Care Teams Assistant Brand Manager Relationship Specialty Start Date End Date Victoriano Reid MD PCP - General Family Medicine 06/19/19 06/29/24 Elva Olivares DO [address] [address] PCP - General Family Medicine 07/01/24 Malissa Joe, RN [place] Nurse Party Plan Salesperson 12/03/23 12/03/23 Malissa Joe, RN [place] Nurse Party Plan Salesperson 12/05/23 12/05/23 [place], HAIR SPECIALIST [place] Police Artist Party Plan Salesperson 11/03/24 Cabrera Yadav MD #[address] [place] [address] Consulting Physician Urology 11/07/24 documented as of this encounter
--- OUTSIDE RECORDS SUMMARY | 2024-12-04 18:04 | XMS_ITS | Encounter Summary ---
Author Organization [facility] Address [address] [place] [address] Phone Care Team Providers Care Leguillon Debeader Name Role Phone Victoriano Reid MD Primary Care Provider [phone] Malissa Joe RN Unavailable Unavailable Malissa Jeo RN Unavailable Unavailable Elva Olivares DO Primary Care Provider [phone] [place] SENIOR CLINICAL DATA COORDINATOR Unavailable Unaabdirizaki Cabrera Dodge MD Unavailable [phone] Encounter Details Date Type Department Care Team (Late st Contact Info) Description 10/04/2021 Lab Requisition [facility] Laboratory Services [address] [place] [phone] Victoriano Reid MD #1 [place] [address] Urinary tract infection, site not specified Social History Tobacco Use Types Packs/Day Years Used Date Smoking Tobacco: Every Day Cigarettes Smokeless Tobacco: Never Alcohol Use Standard Drinks/Week Comments Not Currently 0 (1 standard drink = 0.6 oz pur e alcohol) PHQ-2 Answer Date Recorded Total Score - Questions 1-9 0 11/0 10/2020 Education Answer Date Recorded What is the [...] Description 01/02/2025 10:30 AM CDT Procedure Visit [facility] PHYSICIAN [facility] UROLOGY #2 [place] [address] Cabrera Yadav MD #[address] [facility] [address] [place] [address] 01/09/2025 1:00 PM CDT Office Visit [facility] Medical Group - Family Medicine - [place] #2 [place] [address] Elva Olivares, DO 2 [facility]. [address] [place] [address] documented as of this encounter Procedures Procedure Name Priority Date/Time Associated Diagnosis Comments URINALYSIS REFLEX IF INDICATED BY ABNORMAL RESULTS Routine 10/04/2021 2:30 AM SCREEN DOOR MAKER Urinary tract infection, site not specified CULTURE, URINE Routine 10/04/2021 2:30 AM SCREEN DOOR MAKER Urinary tract infection, site not specified documented in this encounter Results * CULTURE, URINE (10/04/2021 2:30 AM SCREEN DOOR MAKER) CULTURE RESULTS MIXED GROWTH OF 3 OR MORE ORGANISMS, PROBABLE COLLECTION CONTAMINATION, SUGGEST REPEAT URINE CULTURE. 10/05/2021 6:24 PM SCREEN DOOR MAKER [facility] Urine Non-Phlebotomy Collection / Unknown 10/04/2021 2:30 AM SCREEN DOOR MAKER 10/04/2021 4:51 PM SCREEN DOOR MAKER us Victoriano Reid MD MICROBIOLOGY - GENERAL ORDERABLE S Final Result [facility] [address] [place] [address], * (ABNORMAL) URINALYSIS REFLEX IF INDICATED BY ABNORMAL RESULTS (10/04/2021 2:30 AM SCREEN DOOR MAKER) SPECIFIC GRAVITY 1.015 1.003 - 1.030 10/04/2021 5:12 PM [facility] URINE PH 8.0 5.0 - 9.0 10/04/2021 5:12 PM [facility] WBC ESTERASE 500 /uL(A) Negative 10/04/2021 5:12 PM [facility] NITRITE Positive(A) Negative 10/04/2021 5:12 PM [facility] PROTEIN, RANDOM URINE 100 mg/dL(A) Negative 10/04/2021 5:12 PM [facility] URINE GLUCOSE, QUAL Negative Negative 10/04/2021 5:12 PM [facility] URINE KETONES Negative Negative 10/04/2021 5:12 PM [facility] UROBILINOGEN Normal Normal mg/dL 10/04/2021 5:12 PM [facility] URINE BLOOD 250 /uL(A) Negative josefa/ul 10/04/2021 5:12 PM [facility] URINALYSIS COLOR Yasmine 10/04/20 5:12 PM [facility] URINALYSIS CLARITY Very Cloudy 10/04/2021 5:12 PM [facility] WBC (Urine) Packed(A) Negative, 0-5 /hpf 10/04/2021 5:12 PM [facility] URINE RBC'S Packed(A) Negative, 0-2 /hpf 10/04/2021 5:12 PM [facility] EPITHELIAL CELLS Small amount /lpf 2020 5:12 PM [facility] BACTERIA, URINE Packed(A) Negative /hpf 10/04/2021 5:12 PM [facility] Urine Non-Phlebotomy Collection / Unknown 10/04/2021 2:30 AM SCREEN DOOR MAKER 10/04/2021 4:51 PM SCREEN DOOR MAKER Victoriano Reid MD URINE ORDERABLES Final Result [facility] #1 [facility] [place] [address] documented in this encounter Visit Diagnoses Diagnosis Urinary tract infection, site not specified documented in this encounter Additional Health Concerns Assessment Noted Time PHQ-9 Depression Total Score: 0 08/15/20 10:00 AM CDT documented as of this encounter Care Teams Leguillon Debeader Relationship Specialty Start Date End Date Victoriano Reid MD PCP - General Family Medicine 06/19/19 06/29/24 Elva Olivares DO 2 [facility] [address] [place] [address] PCP - General Family Medicine 07/01/24 Malissa Joe, RN [place] Nurse Brake Rider 12/03/23 12/03/23 Malissa Joe, RN [place] Nurse Brake Rider 12/05/23 12/05/23 [place]inton, SENIOR CLINICAL DATA COORDINATOR [place] Spinning Doffer Brake Rider 11/03/24 Cabrera Yadav MD #2 [facility] [address] [place] [address] Consulting Physician Urology 11/07/24 documented as of this encounter
--- OUTSIDE RECORDS SUMMARY | 2024-12-04 18:04 | XMS_ITS | Encounter Summary ---
Author Organization [facility] Address [address] [place] [address] Phone Care Team Providers Care Antique Furniture Restorer Name Role Phone Victoriano Reid MD Primary Care Provider [phone] Malissa Joe RN Unavailable Unavailable Malissa Joe RN Unavailable Unavailable Elva Olivares DO Primary Care Provider [phone] [place] MASK INSPECTOR Unavailable UnaCabrera Nevarez MD Unavailable [phone] Reason for Visit * Reason Comments Medication Refill Encounter Details Date Type Department Care Team (Late st Contact Info) Description 03/24/2021 Refill [facility] #2 [place] [phone] Sathish Loomis MD #[address] [address] Medication Refill Social History Tobacco Use Types [...] Telephone Encounter - Camilla Hauser RN - 03/24/2021 3:39 PM CDT Medication failed the protocol, provider to review and approve the medication order if appropriate. Requested Prescriptions Pending Prescriptions Disp Refills baclofen (LIORESAL) 10 MG Tablet [Pharmacy Med Name: BACLOFEN 10MG TABLETS] 90 Tablet 4 Sig: TAKE 1 TABLET BY MOUTH THREE TIMES DAILY [facility] Not Delegated - Analgesics: Muscle Relaxants Failed - 03/24/2021 9:29 AM Failed - This refill cannot be delegated Passed - Valid encounter within last 6 months Past Office Visits Recent Outpatient Visits 1 month ago Paraplegia (HCC) [facility] - Victoriano Beck MD 7 months ago Acute cystitis with hematuria [facility] - Victoriano Beck MD 1 year ago Paralysis of both lower limbs (HCC) [facility] Victoriano Toledo MD 1 year ago Uncontrolled type 2 diabetes mellitus with hyperglycemia ([facility]) [facility] Victoriano Toledo MD 1 year ago Spinal cord compression due to malignant neoplasm metastatic to spine ([facility]) [facility] Victoriano Toledo MD Upcoming Appointments Future Appointments In 4 days Lissy Silva MSW [facility] In 5 days Nenita Fernandes LPN [facility] In 1 week Sharonda Carrion PTA [facility] In 1 week Nenita Fernandes, EXTERNAL RELATIONS DIRECTOR [facility] In 2 weeks Nenita eFrnandes LPN [facility] In 3 weeks Nenita Fernandes LPN [facility] In 1 month Naa Rios RN [facility] NURSE TECH - Recent and Past Visits Recent Visits Date Type Provider Dept 02/14/21 [facility] Telemedicine Victoriano Reid MD [facility] 01/22/20 Telemedicine Victoriano Reid MD [facility] Showing recent visits within past 460 days with a meds authorizing provider and meeting all other requirements Future Appointments No visits were found meeting these conditions. Showing future appointments within next 90 days with a meds authorizing provider and meeting all other requirements documented in this encounter Plan of Treatment Upcoming Encounters Date Type Department Care Team (Late st Contact Info) Description 01/02/2025 10:30 AM CDT Procedure Visit [facility]IAN GROUP UROLOGY #2 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 [address] [place] [address] PCP - General Family Medicine 07/01/24 Malissa Joe, RN [place] Nurse Detailer 12/03/23 12/03/23 Malissa Joe RN [place] Nurse Detailer 12/05/23 12/05/23 H[place], [facility] Head Worker Detailer 11/03/24 Cabrera Yadav MD #[address], [facility] [address] [place] [address] Consulting Physician Urology 11/07/24 documented as of this encounter
--- OUTSIDE RECORDS SUMMARY | 2024-12-04 18:04 | XMS_ITS | Encounter Summary ---
Author Organization [facility] Address [address] [place] [address] [place] [address] Phone Care Team Providers Care Desktop Technician Name Role Phone Elva Olivares Primary Care Provider [phone] [place] CHANGE ADVISOR Unavailable Cabrera Smallwood MD Unavailable [phone] Reason for Visit * Reason Onset Date Comments Need Order 07/08/2024 Encounter Details Date Type Department Care Team (Late st Contact Info) Description 07/08/2024 Telephone [facility] [address] [place] [address] Adwoa Hannah, PT [place] Need Order Social History Tobacco Use Types Packs/Day Years Used Date Smoking Tobacco: Every Day Cigarettes 2 15 Smokeless Tobacco: Never Alcohol Use Standard Drinks/Week Comments Not Currently 0 (1 standard drink = 0.6 oz pur e alcohol) [facility] Utilities Answer Date Recorded In the past 12 months has ideas[employer] electric, gas, oil, or water company threatened [...] week 04/15/2024 How often do you attend [facility] or cheondo[facility] services? Never 04/15/2024 Do you belong to any clubs o r organizations such as pentecostalism groups, unions, fraternal or athletic groups, or [...] Total Score - Questions 1-9 0 12/14 [facility] - Occupational Stress Questionnaire Answer Date Recorded [...] place to sleep or slept in a detention (including now)? No 12/20/2023 Housing Stability Vital Sign Answer Saleem e Recorded In the last 12 months, was t here a time when you were not able to pay the mortgage or rent on time? No 04/15/2024 Number of Times Moved in the Last Year Not on fi le 04/15/2024 At any time in the past 12 m onths, were you homeless or living in a detention (including now)? No 04/15/2024 Education Answer Date [...] encounter Miscellaneous Notes * Telephone Encounter - Adwoa Hannah, PT - 07/08/2024 2:03 PM CDT Need a verbal to add OT assessment. Patient would like to be able to put her pants on and wash her dishes. Is it ok to add OT? Please advise, thank you. documented in this encounter Plan of Treatment Upcoming Encounters Date Type Department Care Team (Late st Contact Info) Description 01/02/2025 10:30 AM CDT Procedure Visit [facility] UR[facility]Y #[address] [place] [address] Cabrera Yadav MD #[address], [address] [address] 01/09/2025 1:00 PM CDT [facility] - [place] #[address] [place] [address] Elva Olivares DO 2 [address] [facility] [address] [place] [address] documented as of this encounter Visit Diagnoses Not on filedocumented in this encounter Additional Health Concerns Assessment Noted Time PHQ-9 Depression Total Score: 0 08/15/20 21 10:00 AM CDT documented as of this encounter Care Teams Desktop Technician Relationship Specialty Start Date End Date Elva Olivares DO [address] [facility] [facility] [address] [place] [address] PCP - General Family Medicine 07/01/24 H[place], [facility] Customer Solutions Representative Senior Counsel 11/03/24 Cabrera Yadav MD [address] [address] Consulting Physician Urology 11/07/24 documented as of this encounter
--- OUTSIDE RECORDS SUMMARY | 2024-12-04 18:04 | XMS_ITS | Encounter Summary ---
Author Organization [facility] Address [address] [facility] [place] [address] Phone Care Team Providers Care Directory Compiler Name Role Phone Victoriano Reid MD Primary Care Provider [phone] Elva Olivares DO Primary Care Provider [phone] [place] PHARMACIST MANAGER Unavailable Unavai Cbarera Dodge MD Unavailable [phone] Encounter Details Date Type Department Care Team (Late st Contact Info) Description 05/27/[address] [facility] Services 1 [place] [address] Singh Myrick, KARISSA, AIR CONDITIONING UNIT TESTER [address] [place] [address] Type 2 diabetes mellitus without complications (HCC); Other jail (current) drug therapy Social History Tobacco Use Types Packs/Day Years Used Date Smoking Tobacco: Every Day Cigarettes 2 15 Smokeless Tobacco: Never Alcohol Use Standard Drinks/Week Comments Not Currently 0 (1 standard drink = 0.6 oz pur e alcohol) [facility] Utilities Answer Date Recorded In the past [...] often do you attend chur ch or congregation services? Never 04/15/2024 Do you belong to any clubs o r organizations such as pentecostal groups, unions, fraternal or athletic groups, or [...] Total Score - Questions 1-9 0 12/14 [facility] - Occupational Stress Questionnaire Answer Date Recorded [...] place to sleep or slept in a group home (including now)? No 12/20/2023 Housing Stability Vital Sign Answer Saleem e Recorded In the last 12 months, was t here a time when you were not able to pay the mortgage or rent on time? No 04/15/2024 Number of Times Moved in the Last Year Not on fi le 04/15/2024 At any time in the past 12 m [facility], were you homeless or living in a group home (including now)? No 04/15/2024 Education Answer Date [...] 01/02/2025 10:30 AM CDT [facility] [address] [place] [address] Cabrera Yadav MD #[address], [address] [address] 01/09/2025 1:00 PM CDT Office [facility] [place] [address] [place] [address] Elva Olivares, DO [address], MARY. [address] [place] [address] documented as of this encounter Procedures Procedure Name Priority Date/Time Associated Diagnosis Comments CBC WITH AUTO DIFFERENTIAL Routine 05/27/2024 1:00 PM CDT Type 2 diabetes mellitus without complications (HCC) Other jail (current) drug therapy UR MICROALBUMIN/CREATIN INE RATIO RANDOM Routine 05/27/2024 1:00 PM CDT Type 2 diabetes mellitus without complications (HCC) Other jail (current) drug therapy LIPID PANEL Routine 05/27/2024 1:00 PM CDT Type 2 diabetes mellitus without complications (HCC) Other jail (current) drug therapy CMP (COMPREHENSIVE METABOLIC PANEL) Routine 05/27/2024 1:00 PM CDT Type 2 diabetes mellitus without complications (HCC) Other long term care phlebotomist (current) drug therapy COMPLETE BLOOD COUNT (CBC) WITH DIFF Routine 05/27/2024 1:00 PM CDT Type 2 diabetes mellitus without complications (HCC) Other jail (current) drug therapy documented in this encounter Results * (ABNORMAL) CBC WITH AUTO DIFFERENTIAL (05/27/2024 1:00 PM CDT) WBC 9.90 4.00 - 12.00 10(3)/mcL 05/27/2024 2:52 PM CDT [facility] RBC 4.48 3.80 - 5.30 10(6)/mcL 05/27/2024 2:52 PM CDT [facility] HEMOGLOBIN (HGB) 14.8 12.0 - 15.8 g/dL 05/27/2024 2:52 PM CDT [facility] HEMATOCRIT (HCT) 45.0 36.0 - 47.0 % 05/27/2024 2:52 PM CDT [facility] MCV 100.4(H) 82.0 - 96.0 fL 05/27/2024 2:52 PM CDT [facility] MCH 33.0 26.0 - 34.0 pg 05/27/2024 2:52 PM CDT [facility] MCHC 32.9 31.0 - 36.0 g/dL 05/27/2024 2:52 PM CDT [facility] PLATELET COUNT 160 140 - 440 10(3)/mcL 05/27/2024 2:52 PM CDT [facility] RDW 14.9 11.8 - 15.5 % 05/27/2024 2:52 PM CDT [facility] MPV 12.0 9.7 - 12.4 fL 05/27/2024 2:52 PM CDT [facility] NEUTROPHILS 54.2 47.0 - 73.0 % 05/27/2024 2:52 PM CDT [facility] LYMPHOCYTES 35.4 18.0 - 42.0 % 05/27/2024 2:52 PM CDT [facility] MONOCYTES 7.1 4.0 - 12.0 % 05/27/2024 2:52 PM CDT [facility] EOSINOPHILS 2.5 0.0 - 5.0 % 05/27/2024 2:52 PM CDT [facility] BASOPHILS 0.8 0.0 - 1.0 % 05/27/2024 2:52 PM CDT [facility] ABSOLUTE NEUTROPHILS 5.37 1.60 - 7.70 10(3)/mcL 05/27/2024 2:52 PM CDT [facility] ABSOLUTE LYMPHOCYTES 3.50(H) 1.30 - 3.20 10(3)/mcL 05/27/2024 2:52 PM CDT [facility] ABSOLUTE MONOCYTES 0.70 0.20 - 1.00 10(3)/mcL 05/27/2024 2:52 PM CDT [facility] ABSOLUTE EOSINOPHIL 0.25 0.00 - 0.40 10(3)/mcL 05/27/2024 2:52 PM CDT [facility] ABSOLUTE BASOPHILS 0.08 0.00 - 0.10 10(3)/mcL 05/27/2024 2:52 PM CDT [facility] NRBC PER 100 WBC 0 05/27/20 2:52 PM CDT [facility] Blood No Phlebotomy Charged / Unknown 05/27/2024 1:00 PM CDT 05/27/2024 2:30 PM CDT us Singh Myrick APRN, CNP HEMATOLOGY ORDER SERVANDO Final Result Performing Organization Address City/[facility]/ZIP Co de Phone Number [facility] [address] [place] [address] * (ABNORMAL) UR MICROALBUMIN/CREATININE RATIO RANDOM (05/27/2024 1:00 PM CDT) RAN UR MICROALBUMIN 0.89 mg/dL 05/27/2024 3:00 PM CDT [facility] Comment:No reference range h as been established. Consider Clinical Correlation. CREATININE URINE 7.4 mg/dL 05/27/20 3:00 PM CDT [facility] Comment:No reference range h as been established. Consider Clinical Correlation. ALB/CREAT RATIO 120(H) 0 - 30 mg/g CRE 05/27/2024 3:00 PM CDT [facility] Urine Non-Phlebotomy Collection / Unknown 05/27/2024 1:00 PM CDT 05/27/2024 2:30 PM CDT us Singh Myrick APRN, CNP URINE ORDERABLES Final Result Performing Organization Address [facility]/ZIP Co de Phone Number [facility] [address] [place] [address] * LIPID PANEL (05/27/2024 1:00 PM CDT) CHOLESTEROL 158 <200 mg/dL 05/27/2024 3:21 PM CDT [facility] TRIGLYCERIDES 95 <150 mg/dL 05/27/2024 3:21 PM CDT [facility] HDL CHOLESTEROL 42 >40 mg/dL 3:21 PM CDT [facility] LDL 97 <130 mg/dL 05/27/2024 3:21 PM CDT [facility] VLDL 19 10 - 50 mg/dL 05/27/2024 3:21 PM CDT [facility] CHOL/HDL RATIO 3.8 0.0 - 4.4 05/27/2024 3:21 PM CDT [facility] NON-HDL CHOLESTEROL 116 <130 mg/dL 05/27/2024 3:21 PM CDT [facility] Blood No Phlebotomy Charged / Unknown 05/27/2024 1:00 PM CDT 05/27/2024 2:30 PM CDT us Singh Myrick APRN, AIR CONDITIONING UNIT TESTER CHEMISTRY ORDERA BLES Final Result [facility] [address] [place] [address] * (ABNORMAL) CMP (COMPREHENSIVE METABOLIC PANEL) (05/27/2024 1:00 PM CDT) Pathologist [facility] SODIUM 141 136 - 145 mmol/L 05/27/2024 3:21 PM CDT [facility] POTASSIUM 4.1 3.5 - 5.1 mmol/L 05/27/2024 3:21 PM CDT [facility] CHLORIDE 107 98 - 107 mmol/L 05/27/2024 3:21 PM CDT [facility] CO2, VENOUS 26 22 - 30 mmol/L 05/27/2024 3:21 PM CDT [facility] ANION GAP 12.1 <18.0 mmol/L 05/27/2024 3:21 PM CDT [facility] GLUCOSE 128(H) 70 - 99 mg/dL 05/27/2024 3:21 PM CDT [facility] BUN 16 10 - 20 mg/dL 05/27/2024 3:21 PM [facility] CREATININE, BLOOD 0.72 0.60 - 1.00 mg/dL 05/27/2024 3:21 PM T [facility] BUN/CREATININE RATIO 22(H) 12 - 20 ratio 05/27/2024 3:21 PM T [facility] TOTAL PROTEIN 7.0 6.3 - 8.2 g/dL 05/27/2024 3:21 PM [facility] ALBUMIN 4.0 3.5 - 5.0 g/dL 05/27/2024 3:21 PM [facility] A/G RATIO 1.3 1.0 - 2.2 05/27/2024 3:21 PM [facility] CALCIUM 9.7 8.7 - 10.5 mg/dL 05/27/2024 3:21 PM [facility] T BILI 0.3 0.2 - 1.2 mg/dL 05/27/2024 3:21 PM [facility] SGOT (AST) 15 5 - 34 U/L 05/27/2024 3:21 PM [facility] SGPT (ALT) 9 0 - 55 U/L 05/27/2024 3:21 PM [facility] ALKALINE PHOSPHATASE 66 40 - 150 U/L 05/27/2024 3:21 PM [facility] GFR, ESTIMATED >60 >=60 05/27/2024 3:21 PM [facility] Comment: Creatinine Clearance is the preferred criteria for selecting drug dose adjustments in renally impaired patients. The GFR is provided as additional pertinent clinical information. GFR is reported in mL/min/1.73 sq m. Calculation based on the Chronic Kidney Disease Epidemiology Collaboration (CKD- EPI) equation refit without adjustment for race. GFR, EST. >60 >=60 024 3:21 PM CDT [facility] GFR, EST. NONAFRICAN >60 >=60 05/27/2024 3:21 PM CDT [facility] Blood No Phlebotomy Charged / Unknown 05/27/2024 1:00 PM CDT 05/27/2024 2:30 PM CDT us Singh Sathish Ramez SUPERVISOR CD AREA, AIR CONDITIONING UNIT TESTER CHEMISTRY ORDERA BLES Final Result [facility] [address] [place] [address] documented in this encounter Visit Diagnoses Diagnosis Type 2 diabetes mellitus without complications (HCC) Type II or unspecified type diabetes mellitus without mention of complication, not stated as uncontrolled Other long term care phlebotomist (current) drug therapy documented in this encounter Additional Health Concerns Assessment Noted Time PHQ-9 Depression Total Score: 0 08/15/20 21 10:00 AM CDT documented as of this encounter Care Teams Directory Compiler Relationship Specialty Start Date End Date Victoriano Reid MD PCP - General Family Medicine 06/19/19 06/29/24 Elva Olivares DO 2 [facility]. [address] [place] [address] PCP - General Family Medicine 07/01/24 [place] LSW [place] Quarrying Specialist Machine Shop Helper 11/03/24 Cabrera Yadav MD #[address] [facility] [address] [place] [address] Consulting Physician Urology 11/07/24 documented as of this encounter
--- OUTSIDE RECORDS SUMMARY | 2024-12-04 18:04 | XMS_ITS | Encounter Summary ---
Author Organization [facility] Address [address] [place] [address] Phone Care Team Providers Care Behavioral Sciences Department Chair Name Role Phone Victoriano Reid MD Primary Care Provider [phone] Malissa Joe RN Unavailable Unavailable Malissa Joe RN Unavailable Unavailable Elva Olivares DO Primary Care Provider [phone] [place] SAMPLE PATTERNMAKER Unavailable Unaabdirizaki Cabrera Dodge MD Unavailable [phone] Encounter Details Date Type Department Care Team (Late st Contact Info) Description 05/19/2020 [facility] 1 [place] [id number] Victoriano Reid MD #[address] [place] [address] Urinary tract infection, site not specified Social [...] Description 01/02/2025 10:30 AM CDT Procedure Visit [facility] [address] [place] [phone] Cabrera Ydaav MD #2 [facility] [address] [place] [address] 01/09/2025 1:00 PM CDT Office Visit [facility] - Family Medicine - [place] [address] [facility] [place] [address] Elva Olivares, DO 2 [facility] [address], [address]ARY. [address] [place] [address] documented as of this encounter Procedures Procedure Name Priority Date/Time Associated Diagnosis Comments URINALYSIS REFLEX IF INDICATED BY ABNORMAL RESULTS Routine 05/19/2020 2:15 PM CDT Urinary tract infection, site not specified CULTURE, URINE Routine 05/19/2020 2:15 PM CDT Urinary tract infection, site not specified documented in this encounter Results * CULTURE, URINE (05/19/2020 2:15 PM CDT) CULTURE RESULTS CITROBACTER AMALONATICUS 05/23/2020 9:23 AM CDT [facility] CULTURE RESULTS ESCHERICHIA COLI 05/23/2020 9:23 AM CDT [facility] Urine Non-Phlebotomy Collection / Unknown 05/19/2020 2:15 PM CDT 05/19/2020 4:30 PM CDT Narrative Organism Antibiotic Method Susceptibility Citrobacter amalonaticus Cefazolin [facility] VITEK IIB >=64 mcg/ml: Resistant Citrobacter amalonaticus Ceftriaxone [facility] VITEK IIB <=1 mcg/ml: Susceptible Citrobacter amalonaticus Gentamicin [facility] VITEK IIB <=1 mcg/ml: Susceptible Citrobacter amalonaticus Levofloxacin [facility] VITEK IIB <=0.12 mcg/ml: Susceptible Citrobacter amalonaticus Meropenem [facility] VITEK IIB <=0.25 mcg/ml: Susceptible Citrobacter amalonaticus Nitrofurantoin [facility] VITEK IIB 64 mcg/ml: Intermediate Citrobacter amalonaticus Piperacillin/Tazobactam [facility] VITEK IIB <=4 mcg/ml: Susceptible Citrobacter amalonaticus Tobramycin [facility] VITEK IIB <=1 mcg/ml: Susceptible Citrobacter amalonaticus Trimeth/Sulfamethoxazole [facility] VITEK IIB <=20 mcg/ml: Susceptible Escherichia coli Ampicillin [facility] VITEK IIB <=2 [...] Susceptible Escherichia coli Nitrofurantoin [facility] VITEK IIB <=16 mcg/ml: Susceptible Escherichia coli Piperacillin/Tazobactam [facility] VITEK II B <=4 mcg/ml: Susceptible Escherichia coli Tobramycin [facility] VITEK IIB <=1 mcg/ml: Susceptible Escherichia coli Trimeth/Sulfamethoxazole [facility] VITEK I IB <=20 mcg/ml: Susceptible us Victoriano Reid MD MICROBIOLOGY - GENERAL ORDERABLE S Final Result [facility] [address] [place] [address], * (ABNORMAL) URINALYSIS REFLEX IF INDICATED BY ABNORMAL RESULTS (05/19/2020 2:15 PM CDT) SPECIFIC GRAVITY 1.010 1.003 - 1.030 05/19/2020 4:46 PM CDT [facility] URINE PH 8.0 5.0 - 9.0 05/19/2020 4:46 PM CDT [facility] WBC ESTERASE 500 /uL(A) Negative 05/19/2020 4:46 PM CDT [facility] NITRITE Positive(A) Negative 05/19/2020 4:46 PM CDT [facility] PROTEIN, RANDOM URINE 15 mg/dL(A) Negative 05/19/2020 4:46 PM CDT [facility] URINE GLUCOSE, QUAL Negative Negative 05/19/2020 4:46 PM CDT [facility] URINE KETONES Negative Negative 05/19/2020 4:46 PM CDT [facility] UROBILINOGEN Normal Normal mg/dL 05/19/2020 4:46 PM CDT [facility] URINE BILIRUBIN Negative Negative 0 4:46 PM CDT [facility] URINE BLOOD 150 /uL(A) Negative josefa/ul 05/19/2020 4:46 PM CDT [facility] URINALYSIS COLOR Dark Yellow 020 4:46 PM CDT [facility] URINALYSIS CLARITY Very Cloudy 05/19/2020 4:46 PM CDT [facility] WBC (Urine) 51-150(A) Negative, 0-5 /hpf 05/19/2020 4:46 PM CDT [facility] URINE RBC'S 6-10(A) Negative, 0-2 /hpf 05/19/2020 4:46 PM CDT [facility] EPITHELIAL CELLS Small amount /lpf 2019 4:46 PM CDT [facility] BACTERIA, URINE Packed(A) Negative /hpf 05/19/2020 4:46 PM CDT [facility] Urine Non-Phlebotomy Collection / Unknown 05/19/2020 2:15 PM CDT 05/19/2020 4:30 PM CDT us Victoriano Reid MD URINE ORDERABLES Final Result [facility] [address] [place] [address] documented in this encounter Visit Diagnoses Diagnosis Urinary tract infection, site not specified documented in this encounter Additional Health Concerns Infection Onset Date Last Indicated Resolved Time 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 06/05/2019 04/15/2021 7:28 AM CDT Assessment Noted Time PHQ-9 Depression Total Score: 0 10/24/19 20 11:16 AM SALVAGE REPAIRER documented as of this encounter Care Teams Behavioral Sciences Department Chair Relationship Specialty Start Date End Date Victoriano Reid MD PCP - General Family Medicine 06/19/19 06/29/24 Elva Olivares DO 2 [facility] [address] [place] [address] PCP - General Family Medicine 07/01/24 Malissa Joe, RN [place] Nurse Biomedical Service Engineer 12/03/23 12/03/23 Malissa Joe, RN [place] Nurse Biomedical Service Engineer 12/05/23 12/05/23 [place], SAMPLE PATTERNMAKER [place] Chemical Treatment Plant Technician Biomedical Service Engineer 11/03/24 Cabrera Yadav MD #[address] [facility] [address] [place] [address] Consulting Physician Urology 11/07/24 documented as of this encounter
--- OUTSIDE RECORDS SUMMARY | 2024-12-04 18:04 | XMS_ITS | Encounter Summary ---
Author Organization [facility] Address [address] [facility] [place] [address] Phone Care Team Providers Care Candy Mixer Name Role Phone Victoriano Reid MD Primary Care Provider [phone] Elva Olivares DO Primary Care Provider [phone] [place] WINE CELLAR STOCK CLERK Unavailable Unavai Cabrera Dodge MD Unavailable [phone] Encounter Details Date Type Department Care Team (Late st Contact Info) Description 01/23/2024 Lab Requisition [facility] 1 [place] [phone] Victoriano Reid MD #[address] [place] [address] Urinary tract infection, site not specified Social History Tobacco Use Types Packs/Day Years Used Date Smoking Tobacco: Every Day Cigarettes Smokeless Tobacco: Never Alcohol Use Standard Drinks/Week Comments Not Currently 0 (1 standard drink = 0.6 oz pur e alcohol) [facility] Utilities Answer Date Recorded In the [...] often do you attend chur ch or yazdanism services? Never 12/20/2023 Do you belong to any clubs o r organizations such as denominational groups, unions, fraternal or athletic groups, or [...] Score - Questions 1-9 0 12/14 [facility] - Occupational [...] place to sleep or slept in a [place] health care facility (including now)? No 12/20/2023 Education Answer Date [...] 01/02/2025 10:30 AM CDT Procedure Visit [facility] [address] [place] [phone] Cabrera Yadav MD #2 [address] [facility] [address] [place] [address] 01/09/2025 1:00 PM CDT [facility] - [place] #[address] [phone] Elva Olivares, DO 2 [address] [facility]. [address] [place] [address] documented as of this encounter Procedures Procedure Name Priority Date/Time Associated Diagnosis Comments URINALYSIS REFLEX IF INDICATED BY ABNORMAL RESULTS Routine 01/23/2024 2:45 PM CDT Urinary tract infection, site not specified CULTURE, URINE Routine 01/23/2024 2:45 PM CDT Urinary tract infection, site not specified documented in this encounter Results * CULTURE, URINE (01/23/2024 2:45 PM CDT) CULTURE RESULTS ENTEROCOCCUS FAECALIS 01/25/2024 9:08 PM CDT [facility] Urine Non-Phlebotomy Collection / Unknown 01/23/2024 2:45 PM CDT 01/23/2024 3:40 PM CDT Narrative [facility] - 01/25/2024 9:08 PM CDT Susceptibility not performed on enterococcus species. Due to high achievable concentrations in urine, Ampicillin is the drug of choice for treating infections limited to the lower urinary tract (regardless of Vancomycin susceptibility). For allergic patients, Nitrofurantoin or a quinolone may be substituted. us Victoriano Reid MD MICROBIOLOGY - GENERAL ORDERABLE S Final Result [facility] [address] [place] [address], * (ABNORMAL) URINALYSIS REFLEX IF INDICATED BY ABNORMAL RESULTS (01/23/2024 2:45 PM CDT) SPECIFIC GRAVITY 1.010 1.003 - 1.030 01/23/2024 3:56 PM CDT [facility] URINE PH 7.0 5.0 - 9.0 01/23/2024 3:56 PM CDT [facility] WBC ESTERASE 500 /uL(A) Negative 01/23/2024 3:56 PM CDT [facility] NITRITE Positive(A) Negative 01/23/2024 3:56 PM CDT [facility] PROTEIN, RANDOM URINE 30 mg/dL(A) Negative 01/23/2024 3:56 PM CDT [facility] URINE GLUCOSE, QUAL Negative Negative 01/23/2024 3:56 PM CDT [facility] URINE KETONES Negative Negative 01/23/2024 3:56 PM CDT [facility] UROBILINOGEN Normal Normal mg/dL 01/23/2024 3:56 PM CDT [facility] URINE BLOOD 250 /uL(A) Negative josefa/ul 01/23/2024 3:56 PM CDT [facility] URINALYSIS COLOR Yellow 01/23/20 3:56 PM CDT [facility] URINALYSIS CLARITY Slightly Cloudy 01/23/2024 3:56 PM CDT [facility] WBC (Urine) 11-20(A) Negative, 0-5 /hpf 01/23/2024 3:56 PM CDT [facility] URINE RBC'S 51-150(A) Negative, 0-2 /hpf 01/23/2024 3:56 PM CDT [facility] EPITHELIAL CELLS Small amount /lpf 2023 3:56 PM CDT [facility] BACTERIA, URINE Few(A) Negative /hpf 01/23/2024 3:56 PM CDT [facility] Urine Non-Phlebotomy Collection / Unknown 01/23/2024 2:45 PM CDT 01/23/2024 3:40 PM CDT Victoriano Reid MD URINE ORDERABLES Final Result [facility] #[address] [place] [address] documented in this encounter Visit Diagnoses Diagnosis Urinary tract infection, site not specified documented in this encounter Additional Health Concerns Assessment Noted Time PHQ-9 Depression Total Score: 0 08/15/20 21 10:00 AM CDT documented as of this encounter Care Teams Candy Mixer Relationship Specialty Start Date End Date Victoriano Reid MD PCP - General Family Medicine 06/19/19 06/29/24 Elva Olivares DO 2 [facility]. [address] [place] [address] PCP - General Family Medicine 07/01/24 H[place], WINE CELLAR STOCK [facility] Supervisor Motorcycle Repair Shop Desk Editor 11/03/24 Cabrera Yadav MD #2 [address] [facility] [address] [place] [address] Consulting Physician Urology 11/07/24 documented as of this encounter
--- OUTSIDE RECORDS SUMMARY | 2024-12-04 18:04 | XMS_ITS | Encounter Summary ---
Author Organization [facility] Address [address] [place] [address] Phone Care Team Providers Care Sales Office Coordinator Name Role Phone Victoriano Reid MD Primary Care Provider [phone] Elva Olivares DO Primary Care Provider [phone] [place] [facility] Unavailable Cabrera Smallwood MD Unavailable [phone] Reason for Visit * Reason Comments Medication Refill Encounter Details Date Type Department Care Team (Late Contact Info) Description 12/20/2023 Refill [facility] Medical Group - Family Medicine [facility] [address] [place] [address] Victoriano Reid MD [address] [place] [address] Medication Refill Social History Tobacco Use Types Packs/Day Years Used Date Smoking Tobacco: Every Day Cigarettes Smokeless Tobacco: Never Alcohol Use Standard Drinks/Week Comments Not Currently 0 (1 standard drink = 0.6 oz pur e alcohol) [facility] Utilities Answer Date Recorded In the [...] often do you attend chur ch or roman catholic services? Never 12/20/2023 Do you belong to any clubs o r organizations such as religious groups, unions, fraternal or athletic groups, or [...] Total Score - Questions 1-9 0 12/14 [facility] of Occupat ional Health - Occupational Stress [...] slept in a assisted (including now)? No 12/20/2023 Education Answer Date [...] of Assessment Author 0 12/20/2023 11:52 AM QUALITY ASSURANCE MONITOR [employer], System Background * Within the last year, have you been humiliated or emotionally abused in other ways by your partner or ex-partner? Answer Date of Assessment Author No 12/20/2023 11:52 AM QUALITY ASSURANCE MONITOR [employer], System Background * Within the last year, have you been afraid of your partner or ex-partner? Answer Date of Assessment Author No 12/20/2023 11:52 AM QUALITY ASSURANCE MONITOR [employer], System Background * Within the last year, have you been raped or forced to have any kind of sexual activity by your partner or ex-partner? Answer Date of Assessment Author No 12/20/2023 11:52 AM QUALITY ASSURANCE MONITOR [employer], System Background * Within the last year, have you been kicked, hit, slapped, or otherwise physically hurt by your partner or ex-partner? Answer Date of Assessment Author No 12/20/2023 11:52 AM QUALITY ASSURANCE MONITOR My[employer], System Background * Q1: How often do you have a drink containing alcohol? Answer Date of Assessment Author Never 12/20/2023 11:52 AM QUALITY ASSURANCE MONITOR [employer] System Background * Q2: How many drinks containing alcohol do you have on a typical day when you are drinking? Answer Date of Assessment Author Patient does not drink 12/20/2023 11:52 AM QUALITY ASSURANCE MONITOR [employer] System Background * Q3: How often do you have six or more drinks on one occasion? Answer Date of Assessment Author Never 12/20/2023 11:52 AM QUALITY ASSURANCE MONITOR [employer] Background documented as of this encounter Miscellaneous Notes * Telephone Encounter - Adelaida Medina RN - 12/20/2023 10:19 AM QUALITY ASSURANCE MONITOR Medication failed the protocol, provider to review and approve the medication order if appropriate. Requested Prescriptions Pending Prescriptions Disp Refills potassium chloride (MICRO-K) 10 MEQ Capsule CR [Pharmacy Med Name: POTASSIUM CL 10MEQ ER CAPSULES] 180 Capsule 2 Sig: TAKE 1 CAPSULE BY MOUTH TWICE DAILY Potassium Supplement Protocol Failed - 12/20/2023 9:00 AM Failed - Normal serum potassium in past 12 months POTASSIUM Date Value Ref Range Status 10/17/2022 4.3 3.5 - 5.1 mmol/L Final Passed - Visit with relevant provider in past 12 months or upcoming 90 days Recent Visits Date Type Provider Dept 12/06/23 Telemedicine Victoriano Reid MD [facility] 10/23/23 Telemedicine Miriam Prasad, LEASING REPRESENTATIVE, REMOTE CODERS [facility] 03/29/23 Office [facility] Showing recent visits within past 365 days and meeting all other requirements Future Appointments Date Type Provider Dept 12/21/23 Appointment Victoriano Reid MD [facility] Showing future appointments within next 90 days and meeting all other requirements ITY ASSURANCE MONITOR documented in this encounter Plan of Treatment Upcoming Encounters Date Type Department Care Team (Late st Contact Info) Description 01/02/2025 10:30 AM CDT Procedure Visit [facility] [address] [place] [id number] Cabrera Yadav MD [address], [facility] [address] [place] [address] 01/09/2025 1:00 PM CDT Office Visit [facility] Medical Group - Family [facility] [address] [place] [address] Elva Olivares DO [address] [facility] [address] [place] [address] documented as of this encounter Visit Diagnoses Diagnosis Hypokalemia Hypopotassemia documented in this encounter Additional Health Concerns Assessment Noted Time PHQ-9 Depression Total Score: 0 08/15/20 21 10:00 AM CDT documented as of this encounter Care Teams Sales Office Coordinator Relationship Specialty Start Date End Date Victoriano Reid MD PCP - General Family Medicine 06/19/19 06/29/24 Elva Olivares DO [address] [facility] [address] [place] [address] PCP - General Family Medicine 07/01/24 [place], [facility] [employer] Workforce Development Vice President 11/03/24 Cabrera Yadav MD #[address] [facility] [address] [place] [address] Consulting Physician Urology 11/07/24 documented as of this encounter
--- OUTSIDE RECORDS SUMMARY | 2024-12-04 18:04 | XMS_ITS | Encounter Summary ---
Author Organization [facility] Address [address] [place] [address] Phone Care Team Providers Care Brass Cutter Name Role Phone Victoriano Reid MD Primary Care Provider [phone] Elva Olivares DO Primary Care Provider [phone] [place] [facility] Unavailable Cabrera Smallwood MD Unavailable [phone] Reason for Visit * Reason Comments Medication Refill Encounter Details Date Type Department Care Team (Late Contact Info) Description 02/22/2024 Refill [facility] Medical Group - Family Medicine [facility] [address] [place] [address] Victoriano Reid MD [address] [place] [address] Medication Refill Social History Tobacco Use Types Packs/Day Years Used Date Smoking Tobacco: Every Day Cigarettes Smokeless Tobacco: Never Alcohol Use Standard Drinks/Week Comments Not Currently 0 (1 standard drink = 0.6 oz pur e alcohol) [facility] Utilities Answer Date Recorded In the [...] often do you attend chur ch or hindu services? Never 12/20/2023 Do you belong to any clubs o r organizations such as yarsani groups, unions, fraternal or athletic groups, or [...] Score - Questions 1-9 0 12/14 [facility] of Occupat ional Health - Occupational [...] place to sleep or slept in a longterm (including now)? No 12/20/2023 Education Answer Date [...] Telephone Encounter - Camilla Hauser RN - 02/22/2024 2:13 PM CDT Per nursing clinical judgement, provider to review and approve the medication(s) order(s) if appropriate. Requested Prescriptions Pending Prescriptions Disp Refills ergocalciferol (VITAMIN D) 06560 UNIT Capsule [Pharmacy Med Name: VITAMIN D2 50,000IU (ERGO) CAP RX] 12 Capsule 3 Sig: TAKE 1 CAPSULE BY MOUTH 1 TIME A WEEK Vitamin Supplements (Adult) Protocol Passed - 02/22/2024 10:14 AM Passed - Visit with relevant provider in past 12 months or upcoming 90 days Recent Visits Date Type Provider Dept 12/06/23 Telemedicine Victoriano Reid MD [facility] 10/23/23 Telemedicine Miriam Prasad, CLOTH PRINTER, [facility] 03/29/23 Office Visit [facility] Showing recent visits within past 365 days and meeting all other requirements Future Appointments No visits were found meeting these conditions. Showing future appointments within next 90 days and meeting all other requirements Passed - Vitamin D dose not greater than 1.25mg documented in this encounter Plan of Treatment Upcoming Encounters Date Type Department Care Team (Late st Contact Info) Description 01/02/2025 10:30 AM CDT Procedure Visit [facility] PHYSICIAN [facility] UR[facility] [address] [place] [address] Cabrera Yadav MD [address], [facility] [address] [place] [address] 01/09/2025 1:00 PM CDT Office Visit [facility] - Family Medicine [facility] [address] [place] [address] Elva Olivares DO [address] [facility] [address] [place] [address] documented as of this encounter Visit Diagnoses Diagnosis Vitamin D deficiency Unspecified vitamin D deficiency documented in this encounter Additional Health Concerns Assessment Noted Time PHQ-9 Depression Total Score: 0 08/15/20 10:00 AM CDT documented as of this encounter Care Teams Brass Cutter Relationship Specialty Start Date End Date Victoriano Ried MD PCP - General Family Medicine 06/19/19 06/29/24 Elva Olivares DO [address] [facility] [address] [place] [address] PCP - General Family Medicine 07/01/24 [place], CUT ROLL MACHINE OFFBEARER [place] Split Leather Department Supervisor Chlorine Plant Operator 11/03/24 Cabrera Yadav MD [address] [address] Consulting Physician Urology 11/07/24 documented as of this encounter
--- OUTSIDE RECORDS SUMMARY | 2024-12-04 18:04 | XMS_ITS | Encounter Summary ---
Author Organization [facility] Address [address] [place] [address] Phone Care Team Providers Care Hand Flatwork Finisher Name Role Phone Victoriano Reid MD Primary Care Provider [phone] Malissa Joe RN Unavailable Unavailable Malissa Joe RN Unavailable Unavailable Elva Olivares DO Primary Care Provider [phone] [place] [facility] Unavailable Cabrera Smallwood MD Unavailable [phone] Reason for Visit * Reason Comments Medication Refill Encounter Details Date Type Department Care Team (Late st Contact Info) Description 10/21/2023 Refill [facility] Medical Group - Family Medicine [facility] [address] [place] [address] Victoriano Reid MD [address] [place] [address] Medication Refill Social History Tobacco Use Types Packs/Day Years Used Date Smoking Tobacco: Every Day Cigarettes Smokeless Tobacco: Never Alcohol Use Standard Drinks/Week Comments Not Currently 0 (1 standard drink = 0.6 oz pur e alcohol) [facility] Utilities Answer Date Recorded In [...] often do you attend chur ch or tenriism services? Never 10/22/2023 Do you belong to any clubs o r organizations such as sikh groups, unions, fraternal or athletic groups, or [...] Total Score - Questions 1-9 0 12/14 [facility] of Occupat ional Health - Occupational Stress [...] [place] [facility] (including now)? No 10/22/2023 Education Answer Date [...] Score Answer Date of Assessment Author 0 10/22/2023 10:19 PM PARTS DRIVER [employer], System Background * Within the last year, have you been humiliated or emotionally abused in other ways by your partner or ex-partner? Answer Date of Assessment Author No 10/22/2023 10:19 PM PARTS DRIVER [employer], System Background * Within the last year, have you been afraid of your partner or ex-partner? Answer Date of Assessment Author No 10/22/2023 10:19 PM PARTS DRIVER [employer], System Background * Within the last year, have you been raped or forced to have any kind of sexual activity by your partner or ex-partner? Answer Date of Assessment Author No 10/22/2023 10:19 PM PARTS DRIVER [employer], System Background * Within the last year, have you been kicked, hit, slapped, or otherwise physically hurt by your partner or ex-partner? Answer Date of Assessment Author No 10/22/2023 10:19 PM PARTS DRIVER [employer] System Background * Q1: How often do you have a drink containing alcohol? Answer Date of Assessment Author Never 10/22/2023 10:19 PM PARTS DRIVER [employer], System Background * Q2: How many drinks containing alcohol do you have on a typical day when you are drinking? Answer Date of Assessment Author Patient does not drink 10/22/2023 10:19 PM PARTS DRIVER [employer], System Background * Q3: How often do you have six or more drinks on one occasion? Answer Date of Assessment Author Never 10/22/2023 10:19 PM PARTS DRIVER [employer], System Background documented as of this encounter Miscellaneous Notes * Telephone Encounter - Adelaida Medina RN - 10/21/2023 5:45 PM PARTS DRIVER Medication failed the protocol, provider to review and approve the medication order if appropriate. Requested Prescriptions Pending Prescriptions Disp Refills gabapentin (NEURONTIN) 300 MG Capsule [Pharmacy Med Name: GABAPENTIN 300MG CAPSULES] 180 Capsule 1 Sig: TAKE 2 CAPSULES BY MOUTH EVERY 8 HOURS Not Delegated - Anticonvulsants Excluding Benzodiazepines Protocol Failed - 10/21/2023 5:54 AM Failed - This refill cannot be delegated Passed - Visit with relevant provider in past 12 months or upcoming 90 days Recent Visits Date Type Provider Dept 03/29/23 Office Visit Victoriano Reid MD [facility] Showing recent visits within past 365 days and meeting all other requirements Future Appointments Date Type Provider Dept 10/23/23 Appointment Miriam Prasad, TRAFFIC OR SYSTEM DISPATCHER, RENEWABLE ENERGY DIVISION MANAGER [facility] 12/21/23 Appointment Victoriano Reid MD [facility] Showing future appointments within next 90 days and meeting all other requirements S DRIVER documented in this encounter Plan of Treatment Upcoming Encounters Date Type Department Care Team (Late st Contact Info) Description 01/02/2025 10:30 AM CDT Procedure Visit [facility] [address] [place] [address] Cabrera Yadav MD #[address] [place] [address] 01/09/2025 1:00 PM CDT Office [facility] #[address] [place] [address] Elva Olivares DO 2 [facility] [address] [place] [address] documented as of this encounter Visit Diagnoses Diagnosis Neurogenic bladder Neurogenic bladder, NOS 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) documented in this encounter Additional Health Concerns Assessment Noted Time PHQ-9 Depression Total Score: 0 08/15/20 21 10:00 AM CDT documented as of this encounter Care Teams Hand Flatwork Finisher Relationship Specialty Start Date End Date Victoriano Reid MD PCP - General Family Medicine 06/19/19 06/29/24 Elva Olivares DO [address] [facility] [address] [place] [address] PCP - General Family Medicine 07/01/24 Malissa Joe, DONYA [place] Nurse Rock Worker 12/03/23 12/03/23 Malissa Joe RN [place] Nurse Rock Worker 12/05/23 12/05/23 [place], [facility] [place] Splitter Head Rock Worker 11/03/24 Cabrera Yadav MD [address] [address] Consulting Physician Urology 11/07/24 documented as of this encounter
--- OUTSIDE RECORDS SUMMARY | 2024-12-04 18:05 | XMS_ITS | Encounter Summary ---
Author Organization [facility] Address [address] [place] [address] Phone Care Team Providers Care Supervisor Salvage Name Role Phone Victoriano Reid MD Primary Care Provider [phone] Malissa Joe RN Unavailable Unavailable Malissa Joe RN Unavailable Unavailable Elva Olivares DO Primary Care Provider [phone] [place] FLAME CUTTING MACHINE OPERATOR Unavailable Cabrera Smallwood MD Unavailable [phone] Reason for Visit * Reason Comments Medication Refill Encounter Details Date Type Department Care Team (Late st Contact Info) Description 07/01/2023 Refill [facility] #[address] [place] [address] Victoriano Reid MD [address] [place] [address] Medication Refill Social History Tobacco Use Types [...] Telephone Encounter - Adelaida Medina RN - 07/02/2023 10:41 AM CDT Medication failed the protocol, provider to review and approve the medication order if appropriate. Requested Prescriptions Pending Prescriptions Disp Refills gabapentin (NEURONTIN) 300 MG Capsule [Pharmacy Med Name: GABAPENTIN 300MG CAPSULES] 180 Capsule 1 Sig: TAKE 2 CAPSULES BY MOUTH EVERY 8 HOURS Not Delegated - Anticonvulsants Excluding Benzodiazepines Protocol Failed - 07/01/2023 5:47 AM Failed - This refill cannot be delegated Passed - Visit with relevant provider in past 12 months or upcoming 90 days Recent Visits Date Type Provider Dept 03/29/23 [facility]22 Office Visit Victoriano Reid MD [facility] Showing recent visits within past 365 days and meeting all other requirements Future Appointments No visits were found meeting these conditions. Showing future appointments within next 90 days and meeting all other requirements documented in this encounter Plan of Treatment Upcoming Encounters Date Type Department Care Team (Late st Contact Info) Description 01/02/2025 10:30 AM CDT Procedure [facility] [address] [facility] [place] [address] Cabrera Yadav MD [address] [facility] [address] [place] [address] 01/09/2025 1:00 PM CDT Office Visit [facility] Medical Group - Family Medicine - [place] #[address] [facility] [place] [address] Elva Olivares L, DO 2 [facility] [address] [facility] 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 [address] [place] [address] PCP - General Family Medicine 07/01/24 Malissa Joe RN [place] Nurse Teacher Home Therapy 12/03/23 12/03/23 Malissa Joe RN [place] Nurse Teacher Home Therapy 12/05/23 12/05/23 [place], FLAME CUTTING MACHINE OPERATOR [place] Tinsmith Helper Teacher Home Therapy 11/03/24 Cabrera Yadav MD #2 [facility] [address] [place] [address] Consulting Physician Urology 11/07/24 documented as of this encounter
--- OUTSIDE RECORDS SUMMARY | 2024-12-04 18:05 | XMS_ITS | Encounter Summary ---
Author Organization [facility] Address [address] [place] [address] Phone Care Team Providers Care Health Claims Examiner Name Role Phone Victoriano Reid MD Primary Care Provider [phone] Malissa Joe RN Unavailable Unavailable Malissa Joe RN Unavailable Unavailable Elva Olivares DO Primary Care Provider [phone] [place] COLOR SHOP HELPER Unavailable Cabrera Smallwood MD Unavailable [phone] Reason for Visit * Reason Comments Medication Refill Encounter Details Date Type Department Care Team (Late st Contact Info) Description 11/05/2021 Refill [facility] #2 [place] [address] Victoriano Ried MD #[address] [place] [address] Medication Refill Social History Tobacco Use Types [...] Telephone Encounter - Camilla Hauser RN - 11/07/2021 8:53 AM CST ergocalciferol (VITAMIN D) 42535 UNIT Capsule 12 Capsule 3 08/15/2021 Sig - Route: Take 1 Capsule by mouth once a week. On Sunday - Oral Sent to pharmacy as: Ergocalciferol 1.25 MG (57678 UT) Oral Capsule (VITAMIN D) Class: E Prescribe E-Prescribing Status: Receipt confirmed by pharmacy (08/15/2021 ??1:57 PM CDT) Order Questions ?? ergocalciferol (VITAMIN D) 45154 UNIT Capsule [[id number]] 56 Status: Active Ordering user: Victoriano Reid MD 08/15/211356 Authorized by: Victoriano Reid MD Frequency: Weekly 08/15/21 - Until Discontinued Diagnoses Vitamin D deficiency [E55.9] Associated Diagnoses Vitamin D deficiency Pharmacy [id number] [place] [address] Refills on file E BENDER FURNACE TENDER documented in this encounter Plan of Treatment Upcoming Encounters Date Type Department Care Team (Late st Contact Info) Description 01/02/2025 10:30 AM CDT Procedure Visit [facility] [address] [place] [address] Cabrera Yadav MD [address] [address] 01/09/2025 1:00 PM CDT Office Visit [facility] - Family Medicine [facility] #[address] [place] [address] Elva Olviares DO 2 [facility] [address] [place] [address] documented as of this encounter Visit Diagnoses Diagnosis Vitamin D deficiency Unspecified vitamin D deficiency documented in this encounter Additional Health Concerns Assessment Noted Time PHQ-9 Depression Total Score: 0 08/15/20 21 10:00 AM CDT documented as of this encounter Care Teams Health Claims Examiner Relationship Specialty Start Date End Date Victoriano Reid MD PCP - General Family Medicine 06/19/19 06/29/24 Elva Olivares DO [address] [address] PCP - General Family Medicine 07/01/24 Malissa Joe, RN [place] Nurse Technology Support Analyst 12/03/23 12/03/23 Malissa Joe, RN [place] Nurse Technology Support Analyst 12/05/23 12/05/23 [place], [facility] [place] Electrical Engineering Professor Technology Support Analyst 11/03/24 Cabrera Yadav MD [address] [address] Consulting Physician Urology 11/07/24 documented as of this encounter
--- OUTSIDE RECORDS SUMMARY | 2024-12-04 18:05 | XMS_ITS | Encounter Summary ---
Author Organization [facility] Address [address] [place] [address] Phone Care Team Providers Care Kiln Loader Name Role Phone Victoriano Reid MD Primary Care Provider [phone] Malissa Joe RN Unavailable Unavailable Malissa Joe RN Unavailable Unavailable Elva Olivares DO Primary Care Provider [phone] [place] DEPUTY SHERIFF BUILDING GUARD Unavailable Cabrera Smallwood MD Unavailable [phone] Reason for Visit * Reason Comments Medication Refill Encounter Details Date Type Department Care Team (Late st Contact Info) Description 02/26/2022 Refill [facility] - Family Medicine [facility] [address] [place] [address] Victoriano Reid MD [address] [place] [address] Medication Refill Social History Tobacco Use Types [...] Telephone Encounter - Camilla Hauser RN - 02/27/2022 1:38 PM CDT Medication failed the protocol, provider to review and approve the medication order if appropriate. Requested Prescriptions Pending Prescriptions Disp Refills baclofen (LIORESAL) 10 MG Tablet [Pharmacy Med Name: BACLOFEN 10MG TABLETS] 90 Tablet 4 Sig: TAKE 1 TABLET BY MOUTH THREE TIMES DAILY NEEDED FOR MUSCLE SPASM Not Delegated - Muscle Relaxants Protocol Failed - 02/26/2022 2:47 PM Failed - This refill cannot be delegated Passed - Visit with relevant provider in past 12 months or upcoming 90 days Recent Visits Date Type Provider Dept 01/05/22 Office Visit Nia Abbott PAC [facility] [place] 08/15/21 Office Visit Victoriano Reid MD [facility] Showing recent visits within past 365 days and meeting all other requirements Future Appointments No visits were found meeting these conditions. Showing future appointments within next 90 days and meeting all other requirements documented in this encounter Plan of Treatment Upcoming Encounters Date Type Department Care Team (Late st Contact Info) Description 01/02/2025 10:30 AM CDT Procedure [facility] [address] [place] [address] Cabrera Yadav MD #[address] [facility] [facility] [address] [place] [address] 01/09/2025 1:00 PM CDT Office Visit [facility] - Family Medicine - [place] [address] [place] [address] Elva Olivares, DO 2 [facility] [place] [facility]. [address] [place] [address] documented as of this encounter Visit Diagnoses Diagnosis Muscle spasm Spasm of muscle documented in this encounter Additional Health Concerns Assessment Noted Time PHQ-9 Depression Total Score: 0 08/15/20 21 10:00 AM CDT documented as of this encounter Care Teams Kiln Loader Relationship Specialty Start Date End Date Victoriano Reid MD PCP - General Family Medicine 06/19/19 06/29/24 Elva Olivarse DO 2 [facility] [place] [facility] [facility] [address] [place] [address] PCP - General Family Medicine 07/01/24 Malissa Joe RN [place] Nurse Tool And Die Supervisor 12/03/23 12/03/23 Malissa Joe RN [place] Nurse Tool And Die Supervisor 12/05/23 12/05/23 [place], DEPUTY SHERIFF BUILDING GUARD [place] Pest Control Pilot Tool And Die Supervisor 11/03/24 Cabrera Yadav MD #2 [facility] [address] [place] [address] Consulting Physician Urology 11/07/24 documented as of this encounter
--- OUTSIDE RECORDS SUMMARY | 2024-12-04 18:05 | XMS_ITS | Encounter Summary ---
Author Organization [facility] Address [address] [place] [address] Phone Care Team Providers Care Graphic Production Artist Name Role Phone Victoriano Reid MD Primary Care Provider [phone] Malissa Joe RN Unavailable Unavailable Malissa Joe RN Unavailable Unavailable Elva Olivares DO Primary Care Provider [phone] [place] PASTER SUPERVISOR Unavailable UnaCabrera Nevarez MD Unavailable [phone] Reason for Visit * Reason Comments Medication Refill Encounter Details Date Type Department Care Team (Late st Contact Info) Description 08/31/2021 Refill [facility] #2 [place] [address] Sathish Loomis MD #[address] [address] Medication Refill Social History Tobacco Use Types [...] have Coronavirus / COVID-19? No / Unsure 08/15/2021 10:00 AM CDT documented as of this encounter Miscellaneous Notes * Telephone Encounter - Camilla Hauser RN - 08/31/2021 9:19 AM CST apixaban (ELIQUIS) 5 MG Tablet 180 Tablet 2 08/15/2021 Sig - Route: Take 1 Tablet by mouth 2 times daily. Indications: Prevention of Unwanted Clot in Veins - Oral Sent to pharmacy as: Apixaban 5 MG Oral Tablet (ELIQUIS) Class: E Prescribe E-Prescribing Status: Receipt confirmed by pharmacy (08/15/2021 11:21 AM CDT) Order Questions ?? 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) [id number] - [place], [place] - [address] documented in this encounter Plan of Treatment Upcoming Encounters Date Type Department Care Team (Late st Contact Info) Description 01/02/2025 10:30 AM CDT Procedure Visit [facility] #[address] [place] [address] Cabrera Yadav MD #2 [facility] [address] [place] [address] 01/09/2025 1:00 PM CDT Office Visit [facility] Family [facility] #2 [place] [address] Elva Olivares DO 2 Mag[address] [facility] [facility]. 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 [address] [place] [address] PCP - General Family Medicine 07/01/24 Malissa Joe, RN [place] Nurse Wheelchair Driver 12/03/23 12/03/23 Malissa Joe, RN [place] Nurse Wheelchair Driver 12/05/23 12/05/23 [place], [facility] [place] Cartoonist Special Effects Wheelchair Driver 11/03/24 Cabrera Yadav MD [address], [facility] [address] [place] [address] Consulting Physician Urology 11/07/24 documented as of this encounter
--- OUTSIDE RECORDS SUMMARY | 2024-12-04 18:05 | XMS_ITS | Encounter Summary ---
Author Organization [facility] Address [address] [place] [address] Phone Care Team Providers Care Clothes Presser Name Role Phone Victoriano Reid MD Primary Care Provider [phone] Malissa Joe RN Unavailable Unavailable Malissa Joe RN Unavailable Unavailable Elva Olivares DO Primary Care Provider [phone] [place] DRAPERY HANGER Unavailable Cabrera Smallwood MD Unavailable [phone] Reason for Visit * Reason Comments Medication Refill Encounter Details Date Type Department Care Team (Late st Contact Info) Description 09/21/2023 Refill [facility] #2 [place] [address] Victoriano Reid MD [address] [place] [address] Medication Refill Social History Tobacco Use Types [...] Telephone Encounter - Camilla Hauser RN - 09/21/2023 1:44 PM CST Medication failed the protocol, provider to review and approve the medication order if appropriate. Requested Prescriptions Pending Prescriptions Disp Refills montelukast (SINGULAIR) 10 MG Tablet [Pharmacy Med Name: MONTELUKAST 10MG TABLETS] 90 Tablet 1 Sig: TAKE 1 TABLET BY MOUTH EVERY EVENING Leukotriene Inhibitors Protocol Passed - 09/21/2023 5:55 AM Passed - Visit with relevant provider in past 12 months or upcoming 90 days Recent Visits Date Type Provider Dept 03/29/23 Office Visit Victoriano Reid MD [facility] Showing recent visits within past 365 days and meeting all other requirements Future Appointments Date Type Provider Dept 10/01/23 Appointment Victoriano Reid MD [facility] Showing future appointments within next 90 days and meeting all other requirements oxybutynin (DITROPAN-XL) 10 MG TABLET SR 24 HR [Pharmacy Med Name: OXYBUTYNIN ER 10MG TABLETS] 90 Tablet 1 Sig: TAKE 1 TABLET BY MOUTH DAILY Urinary Anticholinergics Protocol Passed - 09/21/2023 5:55 AM Passed - Visit with relevant provider in past 12 months or upcoming 90 days Recent Visits Date Type Provider Dept 03/29/23 Office Visit Victoriano Reid MD [facility] Showing recent visits within past 365 days and meeting all other requirements Future Appointments Date Type Provider Dept 10/01/23 Appointment Victoriano Reid MD [facility] Showing future appointments within next 90 days and meeting all other requirements Passed - GFR greater than or equal to 30 in past 12 months GFR, EST. NONAFRICAN Date Value Ref Range Status 10/17/2022 >60 >=60 Final acyclovir (ZOVIRAX) 400 MG Tablet [Pharmacy Med Name: ACYCLOVIR 400MG TABLETS] 90 Tablet 1 Sig: TAKE 1 TABLET BY MOUTH THREE TIMES DAILY Not Delegated - Herpes Agents Protocol Failed - 09/21/2023 5:55 AM Failed - This refill cannot be delegated Passed - Visit with relevant provider in past 12 months or upcoming 90 days Recent Visits Date Type Provider Dept 03/29/23 Office Visit [facility] Showing recent visits within past 365 days and meeting all other requirements Future Appointments Date Type Provider Dept 10/01/23 Appointment Victoriano Reid MD [facility] Showing future appointments within next 90 days and meeting all other requirements CLOCK INSPECTOR documented in this encounter Plan of Treatment Upcoming Encounters Date Type Department Care Team (Late st Contact Info) Description 01/02/2025 10:30 AM CDT Procedure Visit [facility] #[address] [place] [address] Cabrera Yadav MD #2 [facility] [address] [place] [address] 01/09/2025 1:00 PM CDT [facility] [place] #2 [place] [address] Elva Olivares DO 2 [facility] [address] [place] [address] documented as of this encounter Visit Diagnoses Diagnosis Allergic rhinitis, unspecified seasonality, unspecified trigger Neurogenic bladder Neurogenic bladder, NOS Painful bladder spasm Other symptoms involving urinary system documented in this encounter Additional Health Concerns Assessment Noted Time PHQ-9 Depression Total Score: 0 08/15/20 21 10:00 AM CDT documented as of this encounter Care Teams Clothes Presser Relationship Specialty Start Date End Date Victoriano Reid MD PCP - General Family Medicine 06/19/19 06/29/24 Elva Olivares DO 2 [facility] [address] [place] [address] PCP - General Family Medicine 07/01/24 Malissa Joe, RN [place] Nurse Research Project Manager 12/03/23 12/03/23 Malissa Joe, RN [place] Nurse Research Project Manager 12/05/23 12/05/23 [place], [facility]ERY [facility] Power Brake Rebuilder Research Project Manager 11/03/24 Cabrera Yadav MD #2 [facility] [address] [place] [address] Consulting Physician Urology 11/07/24 documented as of this encounter
--- OUTSIDE RECORDS SUMMARY | 2024-12-04 18:05 | XMS_ITS | Encounter Summary ---
Author Organization [facility] Address [address] [place] [address] Phone Care Team Providers Care Rail Setter Name Role Phone Victoriano Reid MD Primary Care Provider [phone] Malissa Joe RN Unavailable Unavailable Malissa Joe RN Unavailable Unavailable Elva Olivares DO Primary Care Provider [phone] [place] SALES RELATIONSHIP MANAGER Unavailable Unaabdirizaki Cabrera Dodge MD Unavailable [phone] Encounter Details Date Type Department Care Team (Late st Contact Info) Description 01/24/2023 Lab Requisition [facility] Laboratory Services [address] [place] [id number] Victoriano Reid MD #[address] [place] [address] Urinary tract infection, site not specified Social [...] suspected to have Coronavirus/COVID-19? No / Unsure 01/03/2023 11:21 AM CDT documented as of this encounter Plan of Treatment Upcoming Encounters Date Type Department Care Team (Late st Contact Info) Description 01/02/2025 10:30 AM CDT Procedure Visit [facility]IAN [facility] #2 [place] [address] Cabrera Yadav MD #2 [facility] [address] [place] [address] 01/09/2025 1:00 PM CDT Office Visit [facility] - Family Medicine [facility] #2 [place] [address] Elva Olivares, DO 2 [facility]. [address] [place] [address] documented as of this encounter Procedures Procedure Name Priority Date/Time Associated Diagnosis Comments URINALYSIS REFLEX IF INDICATED BY ABNORMAL RESULTS Routine 01/24/2023 1:55 PM CDT Urinary tract infection, site not specified CULTURE, URINE Routine 01/24/2023 1:55 PM CDT Urinary tract infection, site not specified documented in this encounter Results * CULTURE, URINE (01/24/2023 1:55 PM CDT) CULTURE RESULTS CITROBACTER AMALONATICUS 01/27/2023 10:26 AM CDT [facility] CULTURE RESULTS GRAM-NEGATIVE BACILLUS 01/27/2023 10:26 AM CDT [facility] Comment:NO FURTHER WORKUP PE RFORMED Urine Non-Phlebotomy Collection / Unknown 01/24/2023 1:55 PM CDT 01/24/2023 2:43 PM CDT Narrative Organism Antibiotic Method Susceptibility Citrobacter amalonaticus Cefazolin [facility] VITEK II >=64 mcg/ml: Resistant Citrobacter amalonaticus Cefepime [facility] V[facility]K II <=1 mcg/ml: Susceptible Citrobacter amalonaticus Ceftriaxone [facility] V[facility] II <=1 mcg/ml: Susceptible Citrobacter amalonaticus Gentamicin [facility] V[facility] II <=1 mcg/ml: Susceptible Citrobacter amalonaticus Levofloxacin [facility] V[facility]K II <=0.12 mcg/ml: Susceptible Citrobacter amalonaticus Meropenem [facility] V[facility]K II <=0.25 mcg/ml: Susceptible Citrobacter amalonaticus Nitrofurantoin [facility] VITEK II 64 mcg/ml: Intermediate Citrobacter amalonaticus Piperacillin/Tazobactam [facility] V[facility]K II <=4 mcg/ml: Susceptible Citrobacter amalonaticus Tobramycin [facility] V[facility]K II <=1 mcg/ml: Susceptible Citrobacter amalonaticus Trimeth/Sulfamethoxazole [facility] VITEK II <=20 mcg/ml: Susceptible us Victoriano Reid MD MICROBIOLOGY - GENERAL ORDERABLE S Final Result [facility] [address] [place] [address], * (ABNORMAL) URINALYSIS REFLEX IF INDICATED BY ABNORMAL RESULTS (01/24/2023 1:55 PM CDT) SPECIFIC GRAVITY 1.010 1.003 - 1.030 01/24/2023 3:08 PM CDT [facility] URINE PH 7.0 5.0 - 9.0 01/24/2023 3:08 PM CDT [facility] WBC ESTERASE 500 /uL(A) Negative 01/24/2023 3:08 PM CDT [facility] NITRITE Negative Negative 01/24/2023 3:08 PM CDT [facility] PROTEIN, RANDOM URINE 30 mg/dL(A) Negative 01/24/2023 3:08 PM CDT [facility] URINE GLUCOSE, QUAL Negative Negative 01/24/2023 3:08 PM CDT [facility] URINE KETONES Negative Negative 01/24/2023 3:08 PM CDT [facility] UROBILINOGEN Normal Normal mg/dL 01/24/2023 3:08 PM CDT [facility] URINE BLOOD 250 /uL(A) Negative josefa/ul 01/24/2023 3:08 PM CDT [facility] URINALYSIS COLOR [place] 01/25/20 23 3:08 PM CDT [facility] URINALYSIS CLARITY Slightly Cloudy 01/24/2023 3:08 PM CDT [facility] WBC (Urine) Packed(A) Negative, 0-5 /hpf 01/24/2023 3:08 PM CDT [facility] URINE RBC'S 11-20(A) Negative, 0-2 /hpf 01/24/2023 3:08 PM CDT [facility] EPITHELIAL CELLS Small amount /lpf 2022 3:08 PM CDT [facility] BACTERIA, URINE Moderate(A) Negative /hpf 01/24/2023 3:08 PM CDT [facility] Urine Non-Phlebotomy Collection / Unknown 01/24/2023 1:55 PM CDT 01/24/2023 2:43 PM CDT us Victoriano Reid MD URINE ORDERABLES Final Result [facility] #[address] [place] [address] documented in this encounter Visit Diagnoses Diagnosis Urinary tract infection, site not specified documented in this encounter Additional Health Concerns Assessment Noted Time PHQ-9 Depression Total Score: 0 08/15/20 21 10:00 AM CDT documented as of this encounter Care Teams Rail Setter Relationship Specialty Start Date End Date Victoriano Reid MD PCP - General Family Medicine 06/19/19 06/29/24 Elva Olivares DO 2 [facility]. [address] [place] [address] PCP - General Family Medicine 07/01/24 Malissa Joe, RN [place] Nurse Weaving Instructor 12/03/23 12/03/23 Malissa Joe, RN [place] Nurse Weaving Instructor 12/05/23 12/05/23 [place], SALES RELATIONSHIP MANAGER [place] Ecological Economist Weaving Instructor 11/03/24 Cabrera Yadav MD #2 [facility] [address] [place] [address] Consulting Physician Urology 11/07/24 documented as of this encounter
--- OUTSIDE RECORDS SUMMARY | 2024-12-04 18:05 | XMS_ITS | Encounter Summary ---
Author Organization [facility] Address [address] [place] [address] Phone Care Team Providers Care Compressor Repairer Name Role Phone Victoriano Reid MD Primary Care Provider [phone] Malissa Joe RN Unavailable Unavailable Malissa Joe RN Unavailable Unavailable Elva Olivares DO Primary Care Provider [phone] [place] DIRECTOR OF FLIGHT OPERATIONS Unavailable Unaabdirizaki Cabrera Dodge MD Unavailable [phone] Encounter Details Date Type Department Care Team (Late st Contact Info) Description 11/23/2021 Lab Requisition [facility] Laboratory Services 1 [place] [id number] Victoriano Reid MD #[address] [place] [address] Extravasation of urine Social History Tobacco Use Types Packs/Day Years Used Date Smoking Tobacco: Every Day Cigarettes Smokeless Tobacco: Never Alcohol Use Standard Drinks/Week Comments Not Currently 0 (1 standard drink = 0.6 oz pur e alcohol) PHQ-2 Answer Date Recorded Total Score - Questions 1-9 0 11/10/2020 Education Answer Date Recorded What is the [...] AM CDT Procedure Visit [facility] #2 [place] [address] Cabrera Yadav MD #2 [facility] [address] [place] [address] 01/09/2025 1:00 PM CDT Office Visit [facility] #2 [facility] [place] [address] Elva Olivares, DO 2 [facility]. [address] [place] [address] documented as of this encounter Procedures Procedure Name Priority Date/Time Associated Diagnosis Comments URINALYSIS REFLEX IF INDICATED BY ABNORMAL RESULTS Routine 11/23/2021 12:00 PM ENVIRONMENTAL HEALTH AND SAFETY MANAGER Extravasation of urine CULTURE, URINE Routine 11/23/2021 12:00 PM ENVIRONMENTAL HEALTH AND SAFETY MANAGER Extravasation of urine documented in this encounter Results * CULTURE, URINE (11/23/2021 12:00 PM ENVIRONMENTAL HEALTH AND SAFETY MANAGER) CULTURE RESULTS STAPHYLOCOCCUS AUREUS 11/29/2021 1:01 PM ENVIRONMENTAL HEALTH AND SAFETY MANAGER [facility] Urine Non-Phlebotomy Collection / Unknown 11/23/2021 12:00 PM ENVIRONMENTAL HEALTH AND SAFETY MANAGER 11/23/2021 3:44 PM ENVIRONMENTAL HEALTH AND SAFETY MANAGER Narrative Organism Antibiotic Method Susceptibility Staphylococcus aureus Cefazolin MCCLURE SINGH Susceptible Staphylococcus aureus Gentamicin MCCLURE SINGH 25 mm: Susceptible Staphylococcus aureus Nitrofurantoin MCCLURE SINGH 27 mm: Susceptible Staphylococcus aureus Oxacillin MCCLURE SINGH Susceptible Staphylococcus aureus Tetracycline MCCLURE SINGH 24 mm: Susceptible Staphylococcus aureus Trimeth/Sulfamethoxazole KAMI OVALLE 15 mm: Intermediate Staphylococcus aureus Vancomycin ETEST 0.5 mcg/ml: Susceptible us Victoriano Reid MD MICROBIOLOGY - GENERAL ORDERABLE S Final Result [facility] [address] [place] [address], [place] * (ABNORMAL) URINALYSIS REFLEX IF INDICATED BY ABNORMAL RESULTS (11/23/2021 12:00 PM ENVIRONMENTAL HEALTH AND SAFETY MANAGER) SPECIFIC GRAVITY 1.005 1.003 - 1.030 11/23/2021 4:41 PM ENVIRONMENTAL HEALTH AND SAFETY MANAGER [facility] URINE PH 7.0 5.0 - 9.0 11/23/2021 4:41 PM [facility] WBC ESTERASE 500 /uL(A) Negative 11/23/2021 4:41 PM [facility] NITRITE Positive(A) Negative 11/23/2021 4:41 PM [facility] PROTEIN, RANDOM URINE 30 mg/dL(A) Negative 11/23/2021 4:41 PM ENVIRONMENTAL HEALTH AND SAFETY MANAGER [facility] URINE GLUCOSE, QUAL Negative Negative 11/23/2021 4:41 PM ENVIRONMENTAL HEALTH AND SAFETY MANAGER [facility] URINE KETONES Negative Negative 11/23/2021 4:41 PM [facility] UROBILINOGEN Normal Normal mg/dL 11/23/2021 4:41 PM [facility] URINE BLOOD 250 /uL(A) Negative josefa/ul 11/23/2021 4:41 PM [facility] URINALYSIS COLOR Light yellow 2021 4:41 PM [facility] URINALYSIS CLARITY Slightly Cloudy 11/23/2021 4:41 PM [facility] WBC (Urine) Packed(A) Negative, 0-5 /hpf 11/23/2021 4:41 PM [facility] URINE RBC'S 51-150(A) Negative, 0-2 /hpf 11/23/2021 4:41 PM [facility] EPITHELIAL CELLS Small amount /lpf 2021 4:41 PM ENVIRONMENTAL HEALTH AND SAFETY MANAGER [facility] BACTERIA, URINE Many(A) Negative /hpf 11/23/2021 4:41 PM ENVIRONMENTAL HEALTH AND SAFETY MANAGER [facility] Urine Non-Phlebotomy Collection / Unknown 11/23/2021 12:00 PM ENVIRONMENTAL HEALTH AND SAFETY MANAGER 11/23/2021 3:44 PM ENVIRONMENTAL HEALTH AND SAFETY MANAGER Victoriano Reid MD URINE ORDERABLES Final Result [facility]1 [place] [address] documented in this encounter Visit Diagnoses Diagnosis Extravasation of urine documented in this encounter Additional Health Concerns Assessment Noted Time PHQ-9 Depression Total Score: 0 08/15/20 21 10:00 AM CDT documented as of this encounter Care Teams Compressor Repairer Relationship Specialty Start Date End Date Victoriano Reid MD PCP - General Family Medicine 06/19/19 06/29/24 Elva Olivares DO 2 [facility] [address] [place] [address] PCP - General Family Medicine 07/01/24 Malissa Joe, RN [place] Nurse Assembler Final 12/03/23 12/03/23 Malissa Joe RN [place] Nurse Assembler Final 12/05/23 12/05/23 [place], DIRECTOR OF FLIGHT OPERATIONS [place] Shovel Engineer Assembler Final 11/03/24 Cabrera Yadav MD #[address] [facility] [address] [place] [address] Consulting Physician Urology 11/07/24 documented as of this encounter
--- OUTSIDE RECORDS SUMMARY | 2024-12-04 18:05 | XMS_ITS | Encounter Summary ---
Author Organization [facility] Address [address] [place] [address] Phone Care Team Providers Care Auto Clocks Repairer Name Role Phone Victoriano Reid MD Primary Care Provider [phone] Malissa Joe RN Unavailable Unavailable Malissa Joe RN Unavailable Unavailable Elva Olivares DO Primary Care Provider [phone] [place] GALLEY HAND Unavailable Unaabdirizaki Cabrera Dodge MD Unavailable [phone] Encounter Details Date Type Department Care Team (Late st Contact Info) Description 10/22/2020 Lab Requisition [facility] Laboratory Services [address] [place] [id number] Victoriano Reid MD #1 [place] [address] Neuromuscular dysfunction of bladder, unspecified; Personal history of urinary (tract) infections Social [...] Description 01/02/2025 10:30 AM CDT Procedure Visit [facility] UROLOGY #2 [facility] [place] [phone] Cabrera Yadav MD #2 [facility], [facility] [address] [place] [address] 01/09/2025 1:00 PM CDT Office Visit [facility] - Family Medicine - [place] #2 [facility] [place] [address] Elva Olivares, DO 2 [facility], [facility]. [address] [place] [address] documented as of this encounter Procedures Procedure Name Priority Date/Time Associated Diagnosis Comments URINALYSIS REFLEX IF INDICATED BY ABNORMAL RESULTS Routine 10/22/2020 10:45 AM PANTOGRAPH ENGRAVER Neuromuscular dysfunction of bladder, unspecified CULTURE, URINE Routine 10/22/2020 10:45 AM PANTOGRAPH ENGRAVER Neuromuscular dysfunction of bladder, unspecified documented in this encounter Results * CULTURE, URINE (10/22/2020 10:45 AM PANTOGRAPH ENGRAVER) CULTURE RESULTS ACINETOBACTER CALCOACETICUS-ACI NETOBACTER BAUMANNII COMPLEX 10/24/2020 7:06 PM PANTOGRAPH ENGRAVER [facility] CULTURE RESULTS ALSO MIXED GROWTH OF DISTAL URETHRA CONTAMINANTS. 10/24/2020 7:06 PM PANTOGRAPH ENGRAVER [facility] Urine Non-Phlebotomy Collection / Unknown 10/22/2020 10:45 AM PANTOGRAPH ENGRAVER 10/22/2020 11:46 AM PANTOGRAPH ENGRAVER Narrative Organism Antibiotic Method Susceptibility Acinetobacter baumannii complex Ampicillin/sulbactam [facility] VITEK IIB <=2 mcg/ml: Susceptible Acinetobacter baumannii complex Cefepime [facility] VITEK IIB 2 mcg/ml: Susceptible Acinetobacter baumannii complex Gentamicin [facility] VITEK IIB <=1 mcg/ml: Susceptible Acinetobacter baumannii complex Levofloxacin [facility] VITEK IIB <=0.12 mcg/ml: Susceptible Acinetobacter baumannii complex Meropenem [facility] VITEK IIB <=0.25 mcg/ml: Susceptible Acinetobacter baumannii complex Piperacillin/Tazobacta m [facility] VITEK IIB 8 mcg/ml: Susceptible Acinetobacter baumannii complex Tigecycline [facility] VITEK IIB <=0.5 mcg/ml: Susceptible Acinetobacter baumannii complex Tobramycin [facility] VITEK IIB <=1 mcg/ml: Susceptible Acinetobacter baumannii complex Trimeth/Sulfamethoxazo le [facility] VITEK IIB <=20 mcg/ml: Susceptible us Victoriano Reid MD MICROBIOLOGY - GENERAL ORDERABLE S Final Result [facility] [address] [place] [address], [place] * (ABNORMAL) URINALYSIS REFLEX IF INDICATED BY ABNORMAL RESULTS (10/22/2020 10:45 AM PANTOGRAPH ENGRAVER) SPECIFIC GRAVITY 1.010 1.003 - 1.030 10/22/2020 1:18 PM PANTOGRAPH ENGRAVER [facility] URINE PH 7.0 5.0 - 9.0 10/22/2020 1:18 PM PANTOGRAPH ENGRAVER [facility] WBC ESTERASE 500 /uL(A) Negative 10/22/2020 1:18 PM PANTOGRAPH ENGRAVER [facility] NITRITE Negative Negative 10/22/2020 1:18 PM PANTOGRAPH ENGRAVER [facility] PROTEIN, RANDOM URINE 30 mg/dL(A) Negative 10/22/2020 1:18 PM PANTOGRAPH ENGRAVER [facility] URINE GLUCOSE, QUAL Negative Negative 10/22/2020 1:18 PM PANTOGRAPH ENGRAVER [facility] URINE KETONES Negative Negative 10/22/2020 1:18 PM PANTOGRAPH ENGRAVER [facility] UROBILINOGEN Normal Normal mg/dL 10/22/2020 1:18 PM PANTOGRAPH ENGRAVER [facility] URINE BILIRUBIN Negative Negative 1:18 PM PANTOGRAPH ENGRAVER [facility] URINE BLOOD 150 /uL(A) Negative josefa/ul 10/22/2020 1:18 PM PANTOGRAPH ENGRAVER [facility] URINALYSIS COLOR Yellow 10/22/2020 1:18 PM PANTOGRAPH ENGRAVER [facility] URINALYSIS CLARITY Slightly Cloudy 10/22/2020 1:18 PM PANTOGRAPH ENGRAVER [facility] WBC (Urine) 6-10(A) Negative, 0-5 /hpf 10/22/2020 1:18 PM PANTOGRAPH ENGRAVER [facility] URINE RBC'S 3-5(A) Negative, 0-2 /hpf 10/22/2020 1:18 PM PANTOGRAPH ENGRAVER [facility] EPITHELIAL CELLS Occasional /lpf 10/22/2020 1:18 PM PANTOGRAPH ENGRAVER [facility] BACTERIA, URINE Many(A) Negative /hpf 10/22/2020 1:18 PM PANTOGRAPH ENGRAVER [facility] CRYSTALS Triple phosphate 10/22/2020 1:18 PM PANTOGRAPH ENGRAVER [facility] Urine Non-Phlebotomy Collection / Unknown 10/22/2020 10:45 AM PANTOGRAPH ENGRAVER 10/22/2020 11:46 AM PANTOGRAPH ENGRAVER us Victoriano Reid MD URINE ORDERABLES Final Result [facility] #[address] [place] [address] documented in this encounter Visit Diagnoses Diagnosis Neuromuscular dysfunction of bladder, unspecified Personal history of urinary (tract) infections documented in this encounter Additional Health Concerns Infection Onset Date Last Indicated Resolved Time 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 06/05/2019 04/15/2021 7:28 AM CDT Assessment Noted Time PHQ-9 Depression Total Score: 0 10/24/19 20 11:16 AM PANTOGRAPH ENGRAVER documented as of this encounter Care Teams Auto Clocks Repairer Relationship Specialty Start Date End Date Victoriano Reid MD PCP - General Family Medicine 06/19/19 06/29/24 Elva Olivares DO 2 [facility] [address] [place] [address] PCP - General Family Medicine 07/01/24 Malissa Joe, RN [place] Nurse Voice Teacher 12/03/23 12/03/23 Malissa Joe, RN [place] Nurse Voice Teacher 12/05/23 12/05/23 [place], [facility] Museum Guide Voice Teacher 11/03/24 Cabrera Yadav MD #2 [facility], [address] [address] Consulting Physician Urology 11/07/24 documented as of this encounter
--- OUTSIDE RECORDS SUMMARY | 2024-12-04 18:05 | XMS_ITS | Encounter Summary ---
Author Organization [facility] Address [address] [place] [address] Phone Care Team Providers Care Ota Name Role Phone Victoriano Reid MD Primary Care Provider [phone] Malissa Joe RN Unavailable Unavailable Malissa Joe RN Unavailable Unavailable Elva Olivares DO Primary Care Provider [phone] [place] ROBOTICS SPECIALIST Unavailable Cabrera Smallwood MD Unavailable [phone] Reason for Visit * Reason Onset Date Comments Medication Refill 12/27/2021 Encounter Details Date Type Department Care Team (Late st Contact Info) Description 12/27/2021 Refill [facility] Group - Family [facility] #2 [place] [address] Victoriano Reid MD #[address] [place] [address] Medication Refill Social History Tobacco Use Types [...] Telephone Encounter - Camilla Hauser RN - 12/27/2021 3:07 PM CDT Medication failed the protocol, provider to review and approve the medication order if appropriate. Requested Prescriptions Pending Prescriptions Disp Refills acyclovir (ZOVIRAX) 400 MG Tablet 90 Tablet 11 Sig: TAKE 1 TABLET BY MOUTH THREE TIMES DAILY Not Delegated - Herpes Agents Protocol Failed - 12/27/2021 9:11 AM Failed - This refill cannot be delegated Passed - Visit with relevant provider in past 12 months or upcoming 90 days Recent Visits Date Type Provider Dept 08/15/21 Office Visit Victoriano Reid MD [facility] 02/14/21 Telemedicine Victoriano Reid MD [facility] Showing recent visits within past 365 days and meeting all other requirements Future Appointments Date Type Provider Dept 01/02/22 Appointment Saranya Brooke APRN, MANAGER ENVIRONMENTAL AFFAIRS [facility] Showing future appointments within next 90 days and meeting all other requirements * Telephone Encounter - Estephanie Parham - 12/27/2021 9:11 AM CDT Received a faxed Rx request from pharmacy. Reordered refill medication(s) requested and pended for nurse and physician/NICKOLAS review. Refill encounter routed to nurse [employer]'s [employer]yne for processing. documented in this encounter Plan of Treatment Upcoming Encounters Date Type Department Care Team (Late st Contact Info) Description 01/02/2025 10:30 AM CDT Procedure Visit [facility] #2 [place] [address] Cabrera Yadav MD #[address] [facility], [facility] [address] [place] [address] 01/09/2025 1:00 PM CDT Office Visit [facility] Medical Group - Family [facility] [address] [place] [address] Elva Olivares DO 2 [facility] [facility] [place]. [address] [place] [address] documented as of this encounter Visit Diagnoses Not on filedocumented in this encounter Additional Health Concerns Assessment Noted Time PHQ-9 Depression Total Score: 0 08/15/20 21 10:00 AM CDT documented as of this encounter Care Teams Ota Relationship Specialty Start Date End Date Victoriano Reid MD PCP - General Family Medicine 06/19/19 06/29/24 Elva Olivares DO 2 [facility] [facility] [address] [place] [address] PCP - General Family Medicine 07/01/24 Malissa Joe, RN [place] Nurse Chucking And Sawing Machine Operator 12/03/23 12/03/23 Malissa Joe, RN [place] Nurse Chucking And Sawing Machine Operator 12/05/23 12/05/23 [place], [facility] [place] Machine Assembler Supervisor Chucking And Sawing Machine Operator 11/03/24 Cabrera Yadav MD #[address] [facility] [address] [place] [address] Consulting Physician Urology 11/07/24 documented as of this encounter
--- OUTSIDE RECORDS SUMMARY | 2024-12-04 18:05 | XMS_ITS | Encounter Summary ---
Author Organization [facility] Address [address] [place] [address] Phone Care Team Providers Care Fabrication Technician Name Role Phone Victoriano Reid MD Primary Care Provider [phone] Malissa Joe RN Unavailable Unavailable Malissa Joe RN Unavailable Unavailable Elva Olivares DO Primary Care Provider [phone] [place] ART DEPARTMENT HEAD Unavailable Unaabdirizaki Cabrera Dodge MD Unavailable [phone] Encounter Details Date Type Department Care Team (Late st Contact Info) Description 11/23/2021 Lab Requisition [facility] Laboratory Services [address] [place] [id number] Victoriano Reid MD #[address] [place] [address] Social History Tobacco Use Types Packs/Day Years [...] Description 01/02/2025 10:30 AM CDT Procedure Visit [facility] PHYSICIAN [facility] UROLOGY #2 [place] [address] Cabrera Yadav MD #2 [facility] [address] [place] [address] 01/09/2025 1:00 PM CDT Office Visit [facility] #2 [facility] [place] [address] Elva Olivares DO [address] [facility] [address] [place] [address] documented as of this encounter Visit Diagnoses Not on filedocumented in this encounter Additional Health Concerns Assessment Noted Time PHQ-9 Depression Total Score: 0 08/15/20 10:00 AM CDT documented as of this encounter Care Teams Fabrication Technician Relationship Specialty Start Date End Date Victoriano Reid MD PCP - General Family Medicine 06/19/19 06/29/24 Elva Olivares DO [address] [facility] [address] [place] [address] PCP - General Family Medicine 07/01/24 Malissa Joe, DONYA [place] Nurse Agency Director 12/03/23 12/03/23 Malissa Joe RN [place] Nurse Agency Director 12/05/23 12/05/23 [place], ART DEPARTMENT HEAD [place] Hydrator Operator Agency Director 11/03/24 Cabrera Yadav MD #2 [facility] [address] [address] Consulting Physician Urology 11/07/24 documented as of this encounter
--- OUTSIDE RECORDS SUMMARY | 2024-12-04 18:05 | XMS_ITS | Encounter Summary ---
Author Organization [facility] Address [address] [place] [address] Phone Care Team Providers Care Clinic Assistant Name Role Phone Victoriano Reid MD Primary Care Provider [phone] Malissa Joe RN Unavailable Unavailable Malissa Joe RN Unavailable Unavailable Elva Olivares DO Primary Care Provider [phone] [place] HOSTESS CASHIER Unavailable Cabrera Smallwood MD Unavailable [phone] Reason for Visit * Reason Comments Medication Refill Encounter Details Date Type Department Care Team (Late st Contact Info) Description 10/05/2020 Refill [facility] Medical Group - Family Medicine [facility] #2 [place] [phone] Victoriano Reid MD #1 [place] [address] Medication Refill Social History Tobacco Use Types [...] Telephone Encounter - Camilla Hauser RN - 10/06/2020 9:33 AM CST Medication failed the protocol, provider to review and approve the medication order if appropriate. Requested Prescriptions Pending Prescriptions Disp Refills Benzonatate 200 MG Capsule [Pharmacy Med Name: BENZONATATE 200MG CAPSULES] 60 Cap 0 Sig: TAKE 1 CAPSULE BY MOUTH EVERY 4 HOURS NEEDED FOR COUGH Not Delegated - Ear, Nose, and Throat: Antitussives/Expectorants Failed - 10/05/2020 2:53 PM Failed - This refill cannot be delegated Passed - Valid encounter within last 12 months Past Office Visits Recent Outpatient Visits 2 months ago [facility] Victoriano Toledo MD 8 months ago Paralysis of both lower limbs (HCC) [facility] - Victoriano Beck MD 11 months ago Uncontrolled type 2 diabetes mellitus with hyperglycemia (HCC) [facility] Victoriano Toledo MD 1 year ago 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) [facility] - Victoriano Beck MD 1 year ago Annual visit for general adult medical examination with abnormal findings [facility] Victoriano Toledo MD Upcoming Appointments Future Appointments In 6 days Naa Rios RN [facility] In 6 days Sharonda Carrion PTA [facility] In 1 week Sharonda Carrion, FRANCIS [facility] In 2 weeks Sharonda Carrion, FRANCIS [facility] In 2 weeks Naa Rios RN [facility] In 2 weeks Lorraine Russell PT [facility] In 3 weeks Sharonda Carrion, FRANCIS [facility] In 3 weeks Sharonda Carrion, FRANCIS [facility] In 4 weeks Sharonda Carrion PTA [facility] In 1 month Naa Rios RN [facility] In 1 month Sharonda Carrion, BACKEND JAVA DEVELOPER [facility] In 1 month Sharonda Carroin, BACKEND JAVA DEVELOPER [facility] In 1 month [facility] Russell, [facility] 1 month Lorraine Russell, PT [facility] In 1 month Naa Rios RN [facility] CLINICAL PATHOLOGIST - Recent and Past Visits Recent Visits Date Type Provider Dept 08/06/20 Telemedicine Victoriano Reid MD [facility] 01/22/20 Telemedicine Victoriano Reid MD [facility] 10/24/19 Office Visit Victoriano Reid MD [facility] 07/17/19 Office Visit Victoriano Reid MD [facility] Showing recent visits within past 460 days with a meds authorizing provider and meeting all other requirements Future Appointments No visits were found meeting these conditions. Showing future appointments within next 90 days with a meds authorizing provider and meeting all other requirements NERY OPERATOR GAS PLANT documented in this encounter Plan of Treatment Upcoming Encounters Date Type Department Care Team (Late st Contact Info) Description 01/02/2025 10:30 AM CDT Procedure Visit [facility] UR[facility]Y #2 [place] [address] Cabrera Yadav MD #2 [facility] [address] [place] [address] 01/09/2025 1:00 PM CDT Office Visit [facility] Medical Group - Family Medicine - [place] #2 [place] [address] Elva Olivares, DO 2 [facility] [address] [place] [address] documented as of this encounter Visit Diagnoses Diagnosis Allergic rhinitis, unspecified seasonality, unspecified trigger documented in this encounter Additional Health Concerns Infection Onset Date Last Indicated Resolved Time 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 [address] [place] [address] PCP - General Family Medicine 07/01/24 Malissa Joe, RN [place] Nurse Machine Operations Supervisor 12/03/23 12/03/23 Malissa Joe, RN [place] Nurse Machine Operations Supervisor 12/05/23 12/05/23 [place], [facility] [place] Report Writer Machine Operations Supervisor 11/03/24 Cabrera Yadav MD #2 [facility] [address] [place] [address] Consulting Physician Urology 11/07/24 documented as of this encounter
--- OUTSIDE RECORDS SUMMARY | 2024-12-04 18:05 | XMS_ITS | Encounter Summary ---
Author Organization [facility] Address [address] [place] [address] Phone Care Team Providers Care Real Estate Leasing Agent Name Role Phone Victoriano Reid MD Primary Care Provider [phone] Malissa Joe RN Unavailable Unavailable Malissa Joe RN Unavailable Unavailable Elva Olivares DO Primary Care Provider [phone] [place] JEWEL BEARING DRILLER Unavailable Cabrera Smallwood MD Unavailable [phone] Reason for Visit * Reason Comments Medication Refill Encounter Details Date Type Department Care Team (Late st Contact Info) Description 10/02/2020 Refill [facility] Medical Group - Family Medicine [facility] #2 [place] [phone] Victoriano Reid MD #1 [place] [address] Medication Refill Social History Tobacco Use Types [...] encounter Miscellaneous Notes * Telephone Encounter - Moni Wilkinson RN - 10/02/2020 9:29 PM CST Medication failed the protocol, provider to review and approve the medication order if appropriate. Requested Prescriptions Pending Prescriptions Disp Refills potassium chloride (MICRO-K) 10 MEQ Capsule CR [Pharmacy Med Name: POTASSIUM CL 10MEQ ER CAPSULES] 60 Cap 0 Sig: TAKE 1 CAPSULE BY MOUTH TWICE DAILY Endocrinology: Minerals - Potassium Supplementation Passed - 10/02/2020 9:29 PM Passed - Valid encounter within last 12 months Past Office Visits Recent Outpatient Visits 1 month ago [facility] Victoriano Toledo MD 8 months ago Paralysis of both lower limbs (HCC) [facility] Victoriano Toledo MD 11 months ago Uncontrolled type 2 diabetes mellitus with hyperglycemia (HCC) [facility] Victoriano Toledo MD 1 year ago 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) [facility] Victoriano Toledo MD 1 year ago Annual visit for general adult medical examination with abnormal findings [facility] Victoriano Toledo MD Upcoming Appointments Future Appointments In 3 days Sharonda Carrion, FRANCIS [facility] In 1 week Naa Rios RN [facility] In 1 week Sharonda Carrion PTA [facility] In 2 weeks Sharnoda Carrion, APPLIQUER [facility] In 2 weeks Sharonda Carrion, APPLIQUER [facility] In 3 weeks Naa Rios RN [facility] In 3 weeks Lorraine Russell, JIM [facility] In 3 weeks Sharonda Carrion, APPLIQUER [facility] In 1 month Sharonda Carrion, APPLIQUER [facility] In 1 month Sharonda Carrion, APPLIQUER [facility] In 1 month Naa Rios RN [facility] In 1 month Sharonda Carrion, APPLIQUER [facility] In 1 month Sharonda Carrion, APPLIQUER [facility] In 1 month [facility] Russell[facility]raine Russell, PT [facility] 1 month Naa Rios RN [facility] Health MANAGER CLUB - Recent and Past Visits Recent Visits Date Type Provider Dept 08/06/20 Telemedicine Victoriano Reid MD [facility] 01/22/20 Telemedicine Victoriano Reid MD [facility] 10/24/19 Office Visit Victoriano Reid MD [facility] 07/17/19 Office Visit Victoriano Reid MD [facility] Showing recent visits within past 460 days with a meds authorizing provider and meeting all other requirements Future Appointments No visits were found meeting these conditions. Showing future appointments within next 90 days with a meds authorizing provider and meeting all other requirements DCARE WORKER documented in this encounter Plan of Treatment Upcoming Encounters Date Type Department Care Team (Late st Contact Info) Description 01/02/2025 10:30 AM CDT Procedure Visit [facility] UR[facility]Y #2 [place] [address] Cabrera Yadav MD #2 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 06/05/2019 04/15/2021 7:28 AM CDT Assessment Noted Time PHQ-9 Depression Total Score: 0 10/24/19 20 11:16 AM CHILDCARE WORKER documented as of this encounter Care Teams Real Estate Leasing Agent Relationship Specialty Start Date End Date Victoriano Reid MD PCP - General Family Medicine 06/19/19 06/29/24 Elva Olivares DO 2 [facility] [address] [place] [address] PCP - General Family Medicine 07/01/24 Malissa Joe, RN [place] Nurse Suede Cleaner 12/03/23 12/03/23 Malissa Joe, RN [place] Nurse Suede Cleaner 12/05/23 12/05/23 [place], [facility] [place] Oracle Ebs Developer Suede Cleaner 11/03/24 Cabrera Yadav MD #2 [facility] [address] [place] [address] Consulting Physician Urology 11/07/24 documented as of this encounter
--- OUTSIDE RECORDS SUMMARY | 2024-12-04 18:05 | XMS_ITS | Encounter Summary ---
Author Organization [facility] Address [address] [place] [address] Phone Care Team Providers Care Aquatics Manager Name Role Phone Victoriano Reid MD Primary Care Provider [phone] Malissa Joe RN Unavailable Unavailable Malissa Joe RN Unavailable Unavailable Elva Olivares DO Primary Care Provider [phone] [place] SUPERVISOR TOWER Unavailable Unaabdirizaki Cabrera Dodge MD Unavailable [phone] Encounter Details Date Type Department Care Team (Late st Contact Info) Description 11/23/2021 Lab Requisition [facility] Laboratory Services [address] [place] [id number] Victoriano Reid MD #1 [place] [address] Urinary tract infection, site not specified Social [...] 10:30 AM CDT Procedure Visit [facility] #2 [place] [address] Cabrera Yadav MD #2 [facility] [address] [place] [address] 01/09/2025 1:00 PM CDT Office Visit [facility] [place] #2 [place] [address] Elva Olivares DO 2 [facility] [address] [place] [address] Scheduled Orders Name Type Priority Associated Diagnoses Orde r Schedule URINALYSIS REFLEX IF INDICAT ED BY ABNORMAL RESULTS Lab Routine Ordered: 06/2022 documented as of this encounter Visit Diagnoses Diagnosis Urinary tract infection, site not specified documented in this encounter Additional Health Concerns Assessment Noted Time PHQ-9 Depression Total Score: 0 08/15/20 10:00 AM CDT documented as of this encounter Care Teams Aquatics Manager Relationship Specialty Start Date End Date Victoriano Reid MD PCP - General Family Medicine 06/19/19 06/29/24 Elva Olivares DO 2 [facility] [address] [place] [address] PCP - General Family Medicine 07/01/24 Malissa Joe RN [place] Nurse Proof Sorter 12/03/23 12/03/23 Joe, Malissa M, RN [place] Nurse Proof Sorter 12/05/23 12/05/23 Hinton, SUPERVISOR TOWER [place] Logistics System Engineer Proof Sorter 11/03/24 Cabrera Yadav MD #[address] [address] Consulting Physician Urology 11/07/24 documented as of this encounter
--- OUTSIDE RECORDS SUMMARY | 2024-12-04 18:05 | XMS_ITS | Encounter Summary ---
Author Organization [facility] Address [address] [place] [address] Phone Care Team Providers Care Sql Etl Developer Name Role Phone Victoriano Reid MD Primary Care Provider Malissa Joe RN Unavailable Unavailable Malissa Joe RN Unavailable Unavailable Elva Olivares DO Primary Care Provider [phone] Hinton INCOME TAX RETURN PREPARER Unavailable Cabrera Smallwood MD Unavailable [phone] Reason for Visit * Reason Comments Medication Refill Encounter Details Date Type Department Care Team (Late st Contact Info) Description 09/30/2020 Refill [facility] - Family Medicine [facility] #2 [place] [id number] Victoriano Reid MD #1 [place] [address] Medication Refill Social History Tobacco Use Types [...] Telephone Encounter - Camilla Hauser RN - 09/30/2020 2:07 PM CST The original prescription was discontinued on 08/06/2020 by Victoriano Reid MD GER POOL documented in this encounter Plan of Treatment Upcoming Encounters Date Type Department Care Team (Late st Contact Info) Description 01/02/2025 10:30 AM CDT Procedure Visit [facility] UROLOGY #2 [place] [address] Cabrera Yadav MD #[address] [address] 01/09/2025 1:00 PM CDT Office Visit [facility] - [place] #2 [facility] [place] [address] Elva Olivares DO 2 [facility] [address] [place] [address] documented as of this encounter Visit Diagnoses Diagnosis Vitamin D deficiency Unspecified vitamin D deficiency documented in this encounter Additional Health Concerns Infection Onset Date Last Indicated Resolved Time 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 06/05/2019 04/15/2021 7:28 AM CDT Assessment Noted Time PHQ-9 Depression Total Score: 0 10/24/19 20 11:16 AM MANAGER POOL documented as of this encounter Care Teams Sql Etl Developer Relationship Specialty Start Date End Date Victoriano Reid MD PCP - General Family Medicine 06/19/19 06/29/24 Elva Olivares DO 2 [facility] [address] [place] [address] PCP - General Family Medicine 07/01/24 Malissa Joe, RN [place] Nurse Linux Kernel Engineer 12/03/23 12/03/23 Malissa Joe, RN [place] Nurse Linux Kernel Engineer 12/05/23 12/05/23 Hinton, INCOME TAX RETURN PREPAR[facility] Master Hearth Technician Linux Kernel Engineer 11/03/24 Cabrera Yadav MD #[address] [address] Consulting Physician Urology 11/07/24 documented as of this encounter
--- OUTSIDE RECORDS SUMMARY | 2024-12-04 18:05 | XMS_ITS | Encounter Summary ---
Author Organization [facility] Address [address] [place] [address] Phone Care Team Providers Care Commissioner Public Works Name Role Phone Victoriano Reid MD Primary Care Provider [phone] Malissa Joe RN Unavailable Unavailable Malissa Joe RN Unavailable Unavailable Elva Olivares DO Primary Care Provider [phone] Hinton REVENUE STAMPER Unavailable Cabrera Smallwood MD Unavailable [phone] Reason for Visit * Reason Comments Medication Refill Encounter Details Date Type Department Care Team (Late st Contact Info) Description 09/05/2021 Refill [facility] - [place] #2 [place] [address] Singh Myrick APRN, PLAN CHECKER #[address] [address] Medication Refill Social History Tobacco Use Types [...] Telephone Encounter - Camilla Hauser RN - 09/06/2021 2:28 PM CST Medication failed the protocol, provider to review and approve the medication order if appropriate. Requested Prescriptions Pending Prescriptions Disp Refills potassium chloride (MICRO-K) 10 MEQ Capsule CR [Pharmacy Med Name: POTASSIUM CL 10MEQ ER CAPSULES] 60 Capsule Sig: TAKE 1 CAPSULE BY MOUTH TWICE DAILY Potassium Supplement Protocol Failed - 09/05/2021 9:50 PM Failed - Normal serum potassium in past 12 months POTASSIUM Date Value Ref Range Status 08/03/2020 4.2 3.5 - 5.1 mmol/L Final Passed - Visit with relevant provider in past 12 months or upcoming 90 days Recent Visits Date Type Provider Dept 08/15/21 Office Visit Victoriano Reid MD [facility] 02/14/21 Telemedicine Victoriano Reid MD [facility] Ken Showing recent visits within past 365 days and meeting all other requirements Future Appointments No visits were found meeting these conditions. Showing future appointments within next 90 days and meeting all other requirements ER MACHINE OPERATOR documented in this encounter Plan of Treatment Upcoming Encounters Date Type Department Care Team (Late st Contact Info) Description 01/02/2025 10:30 AM CDT [facility] [address] [place] [address] Cabrera Yadav MD #[address], [address] [address] 01/09/2025 1:00 PM CDT Office Visit [facility] - Family [facility] [place] #[address] [place] [address] lEva Olivares DO 2 [facility] [address] [place] [address] documented as of this encounter Visit Diagnoses Not on filedocumented in this encounter Additional Health Concerns Assessment Noted Time PHQ-9 Depression Total Score: 0 08/15/20 21 10:00 AM CDT documented as of this encounter Care Teams Commissioner Public Works Relationship Specialty Start Date End Date Victoriano Reid MD PCP - General Family Medicine 06/19/19 06/29/24 Elva Olivares DO 2 [facility] [address] [place] [address] PCP - General Family Medicine 07/01/24 Malissa Joe, RN [place] Nurse Fresh Foods Clerk 12/03/23 12/03/23 Malissa Joe, RN [place] Nurse Fresh Foods Clerk 12/05/23 12/05/23 H[place], REVENUE STAMPER [place] Extermination Supervisor Fresh Foods Clerk 11/03/24 Cabrera Yadav MD [address] [address] Consulting Physician Urology 11/07/24 documented as of this encounter
--- OUTSIDE RECORDS SUMMARY | 2024-12-04 18:05 | XMS_ITS | Encounter Summary ---
Author Organization [facility] Address [address] [place] [address] Phone Care Team Providers Care Veterinary Microbiologist Name Role Phone Victoriano Reid MD Primary Care Provider [phone] Viktoriya Arias WAREHOUSE SHIPPING RECEIVING CLERK Unavailable Unavailab Malissa Polo RN Unavailable Unavailable Malissa Joe RN Unavailable Unavailable Elva Olivares DO Primary Care Provider [phone] Hinton WAREHOUSE SHIPPING RECEIVING CLERK Unavailable Papoi Cabrera Dodge MD Unavailable [phone] Encounter Details Date Type Department Care Team (Late st Contact Info) Description 12/10/2019 Lab Requisition [facility] Laboratory Services 1 [place] [id number] Victoriano Reid MD #1 [place] [address] Neuromuscular dysfunction of bladder, unspecified; Diffuse large b-cell lymphoma, lymph nodes of multiple sites (HCC); Encounter for fitting and adjustment of urinary [...] Description 01/02/2025 10:30 AM CDT Procedure Visit [facility] #2 [place] [address] Cabrera Yadav MD #2 [facility] [address] [place] [address] 01/09/2025 1:00 PM CDT Office Visit [facility] - Family [facility] #2 [place] [address] Elva Olivares DO 2 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 [address] [place] [address] PCP - General Family Medicine 07/01/24 Viktoriya Arias LSW [place] Newspaper Managing Editor 10/24/19 01/20/20 Malissa Joe, RN [place] Nurse Newspaper Managing Editor 12/03/23 12/03/23 Malissa Joe, RN [place] Nurse Newspaper Managing Editor 12/05/23 12/05/23 Hinton, [facility] Qa Specialist Newspaper Managing Editor 11/03/24 Cabrera Yadav MD #[address] [address] Consulting Physician Urology 11/07/24 documented as of this encounter
--- OUTSIDE RECORDS SUMMARY | 2024-12-04 18:05 | XMS_ITS | Encounter Summary ---
Author Organization [facility] Address [address] [place] [address] Phone Care Team Providers Care Property Analyst Name Role Phone Victoriano Reid MD Primary Care Provider [phone] Malissa Joe RN Unavailable Unavailable Malissa Joe RN Unavailable Unavailable Elva Olivares DO Primary Care Provider [phone] [place] FRONT END TECHNICIAN Unavailable Cabrera Smallwood MD Unavailable [phone] Reason for Visit * Reason Comments Medication Refill Encounter Details Date Type Department Care Team (Late st Contact Info) Description 09/05/2021 Refill [facility] Group - Family Medicine [facility] #2 [place] [address] Victoriano Reid MD #1 [place] [address] Medication Refill Social History Tobacco Use Types [...] 10:30 AM CDT Procedure Visit [facility] UROLOGY #2 [place] [address] Cabrera Yadav MD #[address] [address] 01/09/2025 1:00 PM CDT Office Visit [facility] - Family Medicine [facility] #2 [place] [address] Elva Olivares DO 2 [facility] [address] [place] [address] documented as of this encounter Visit Diagnoses Diagnosis Muscle spasm Spasm of muscle documented in this encounter Additional Health Concerns Assessment Noted Time PHQ-9 Depression Total Score: 0 08/15/20 10:00 AM CDT documented as of this encounter Care Teams Property Analyst Relationship Specialty Start Date End Date Victoriano Reid MD PCP - General Family Medicine 06/19/19 06/29/24 Elva Olivares DO 2 [facility] [address] [place] [address] PCP - General Family Medicine 07/01/24 Joe, Malissa M, RN [place] Nurse Wave Solder Offbearer 12/03/23 12/03/23 Malissa Joe, RN [place] Nurse Wave Solder Offbearer 12/05/23 12/05/23 H[place], FRONT END TECHNICIAN [place] Physician Pediatrician Wave Solder Offbearer 11/03/24 Cabrera Yadav MD #[address] [address] Consulting Physician Urology 11/07/24 documented as of this encounter
--- OUTSIDE RECORDS SUMMARY | 2024-12-04 18:05 | XMS_ITS | Encounter Summary ---
Author Organization [facility] Address [address] [place] [address] Phone Care Team Providers Care Director It Name Role Phone Victoriano Reid MD Primary Care Provider [phone] Malissa Joe RN Unavailable Unavailable Malissa Joe RN Unavailable Unavailable Elva Olivares DO Primary Care Provider [phone] H[place] DINING ROOM MAID Unavailable Unaabdirizaki Cabrera Dodge MD Unavailable [phone] Encounter Details Date Type Department Care Team (Late st Contact Info) Description 07/05/2023 Lab Requisition [facility] Laboratory Services 1 [place] [address] Victoriano Reid MD #1 [place] [address] Encounter for fitting and adjustment of urinary device; Personal history of urinary (tract) infections Social [...] 10:30 AM CDT Procedure Visit [facility] PHYSICIAN [facility] UROLOGY #2 [place] [address] Cabrera Yadav MD #2 [facility] [address] [place] [address] 01/09/2025 1:00 PM CDT Office Visit [facility] Group - Family Medicine [facility] #2 [place] [address] Elva Olivares, DO 2 [facility] [address] [place] [address] documented as of this encounter Procedures Procedure Name Priority Date/Time Associated Diagnosis Comments CULTURE, URINE Routine 07/05/2023 2:20 PM CDT Encounter for fitting and adjustment of urinary device Personal history of urinary (tract) infections documented in this encounter Results * CULTURE, URINE (07/05/2023 2:20 PM CDT) CULTURE RESULTS MIXED GROWTH OF 3 OR MORE ORGANISMS, PROBABLE COLLECTION CONTAMINATION, SUGGEST REPEAT URINE CULTURE. 07/06/2023 10:57 PM CDT [facility] Culture Non-Phlebotomy Collection / Unknown 07/05/2023 2:20 PM CDT 07/05/2023 1:07 PM CDT Narrative [facility] - 07/06/2023 10:57 PM CDT Susceptibility not performed on enterococcus species. Due to high achievable concentrations in urine, Ampicillin is the drug of choice for treating infections limited to the lower urinary tract (regardless of Vancomycin susceptibility). For allergic patients, Nitrofurantoin or a quinolone may be substituted. us Victoriano Reid MD MICROBIOLOGY - GENERAL ORDERABLE S Final Result [facility] [address] [place] [address], documented in this encounter Visit Diagnoses Diagnosis Encounter for fitting and adjustment of urinary device Personal history of urinary (tract) infections documented in this encounter Additional Health Concerns Assessment Noted Time PHQ-9 Depression Total Score: 0 08/15/20 21 10:00 AM CDT documented as of this encounter Care Teams Director It Relationship Specialty Start Date End Date Victoriano Reid MD PCP - General Family Medicine 06/19/19 06/29/24 Elva Olivares DO 2 [facility] [address] [place] [address] PCP - General Family Medicine 07/01/24 Malissa Joe, RN [place] Nurse Clock Maker 12/03/23 12/03/23 Malissa Joe, RN [place] Nurse Clock Maker 12/05/23 12/05/23 Hinton, DINING ROOM MAID [place] Steam Shovel Engineer Clock Maker 11/03/24 Cabrera Yadav MD #2 [facility] [address] [place] [address] Consulting Physician Urology 11/07/24 documented as of this encounter
--- OUTSIDE RECORDS SUMMARY | 2024-12-04 18:05 | XMS_ITS | Encounter Summary ---
Author Organization [facility] Address [address] [place] [address] Phone Care Team Providers Care Long Term Care Pharmacist Name Role Phone Victoriano Reid MD Primary Care Provider [phone] Malissa Joe RN Unavailable Unavailable Malissa Joe RN Unavailable Unavailable Elva Olivares DO Primary Care Provider [phone] H[place] MOTHER HELPER Unavailable Cabrera Smallwood MD Unavailable [phone] Reason for Visit * Reason Comments Medication Refill Encounter Details Date Type Department Care Team (Late st Contact Info) Description 07/24/2023 Refill [facility] #2 [place] [address] Victoriano Reid MD #1 [place] [address] Medication Refill Social History Tobacco Use Types [...] Telephone Encounter - Adelaida Medina RN - 07/24/2023 9:07 AM CDT Medication failed the protocol, provider to review and approve the medication order if appropriate. Requested Prescriptions Pending Prescriptions Disp Refills baclofen (LIORESAL) 10 MG Tablet [Pharmacy Med Name: BACLOFEN 10MG TABLETS] 90 Tablet 3 Sig: TAKE 1 TABLET BY MOUTH THREE TIMES DAILY NEEDED FOR MUSCLE SPASMS Not Delegated - Muscle Relaxants Protocol Failed - 07/24/2023 5:48 AM Failed - This refill cannot be delegated Passed - Visit with relevant provider in past 12 months or upcoming 90 days Recent Visits Date Type Provider Dept 03/29/23 Office Visit Victoriano Reid MD [facility] Ken 09/19/22 Office Visit Victoriano Reid MD [facility] Ken Showing recent visits within past 365 days and meeting all other requirements Future Appointments Date Type Provider Dept 10/01/23 Appointment Victoriano Reid MD [facility] Ken Showing future appointments within next 90 days and meeting all other requirements documented in this encounter Plan of Treatment Upcoming Encounters Date Type Department Care Team (Late st Contact Info) Description 01/02/2025 10:30 AM CDT Procedure Visit [facility] #[address] [place] [address] Cabrrea Yadav MD #[address] [address] 01/09/2025 1:00 PM CDT Office Visit [facility] - Family Medicine - [place] #[address] [place] [address] Elva Olivares DO 2 [facility] [address] [place] [address] documented as of this encounter Visit Diagnoses Diagnosis Muscle spasm Spasm of muscle documented in this encounter Additional Health Concerns Assessment Noted Time PHQ-9 Depression Total Score: 0 08/15/20 21 10:00 AM CDT documented as of this encounter Care Teams Long Term Care Pharmacist Relationship Specialty Start Date End Date Victoriano Reid MD PCP - General Family Medicine 06/19/19 06/29/24 Elva Olivares DO 2 [facility] [address] [place] [address] PCP - General Family Medicine 07/01/24 Malissa Joe, RN [place] Nurse Electrical Machine Builder 12/03/23 12/03/23 Malissa Joe, RN [place] Nurse Electrical Machine Builder 12/05/23 12/05/23 Hinton, MOTHER HELPER [place] Poultry Farmer Meat Electrical Machine Builder 11/03/24 Cabrera Yadav MD #2 [facility] [address] [place] [address] Consulting Physician Urology 11/07/24 documented as of this encounter
--- OUTSIDE RECORDS SUMMARY | 2024-12-04 18:05 | XMS_ITS | Encounter Summary ---
Author Organization [facility] Address [address] [place] [address] Phone Care Team Providers Care Industrial Organization Manager Name Role Phone Victoriano Reid MD Primary Care Provider [phone] Malissa Joe RN Unavailable Unavailable Malissa Joe RN Unavailable Unavailable Elva Olivares DO Primary Care Provider [phone] [place] NEWSROOM INTERN Unavailable Unaabdirizaki Cabrera Dodge MD Unavailable [phone] Encounter Details Date Type Department Care Team (Late st Contact Info) Description 10/31/2021 Lab Requisition [facility] [address] [place] [phone] Victoriano Reid MD #1 [place] [address] Personal history of urinary (tract) infections Social History Tobacco Use Types Packs/Day Years Used Date Smoking Tobacco: Every Day Cigarettes Smokeless Tobacco: Never Alcohol Use Standard Drinks/Week Comments Not Currently 0 (1 standard drink = 0.6 oz pur e alcohol) PHQ-2 Answer Date Recorded Total Score - Questions 1-9 0 11/0 10/2020 Sexually Active Control Partners Comments Not Currently [...] 10:30 AM CDT Procedure Visit [facility] #[address] [facility] [phone] Cabrera Yadav MD #2 [facility] [address] [place] [address] 01/09/2025 1:00 PM CDT Office Visit [facility] Group - Family Medicine - [place] #[address] [place] [phone] Elva Olivares, DO 2 [facility]. [address] [place] [address] documented as of this encounter Procedures Procedure Name Priority Date/Time Associated Diagnosis Comments URINALYSIS REFLEX IF INDICATED BY ABNORMAL RESULTS Routine 10/31/2020 12:15 PM DISTILLING DEPARTMENT SUPERVISOR Personal history of urinary (tract) infections CULTURE, URINE Routine 10/31/2020 12:15 PM DISTILLING DEPARTMENT SUPERVISOR Personal history of urinary (tract) infections documented in this encounter Results * CULTURE, URINE (10/31/2020 12:15 PM DISTILLING DEPARTMENT SUPERVISOR) CULTURE RESULTS MIXED GROWTH OF 3 OR MORE ORGANISMS, PROBABLE COLLECTION CONTAMINATION, SUGGEST REPEAT URINE CULTURE. 11/01/2021 4:23 PM DISTILLING DEPARTMENT SUPERVISOR [facility] Urine Non-Phlebotomy Collection / Unknown 10/31/2020 12:15 PM DISTILLING DEPARTMENT SUPERVISOR 10/31/2021 1:47 PM DISTILLING DEPARTMENT SUPERVISOR us Victoriano Reid MD MICROBIOLOGY - GENERAL ORDERABLE S Final Result [facility] [address] [place] [address], [place] * (ABNORMAL) URINALYSIS REFLEX IF INDICATED BY ABNORMAL RESULTS (10/31/2020 12:15 PM [facility]) SPECIFIC GRAVITY 1.010 1.003 - 1.030 10/31/2021 2:26 PM [facility] URINE PH 8.0 5.0 - 9.0 10/31/2021 2:26 PM [facility] WBC ESTERASE 500 /uL(A) Negative 10/31/2021 2:26 PM [facility] NITRITE Negative Negative 10/31/2021 2:26 PM [facility] PROTEIN, RANDOM URINE 100 mg/dL(A) Negative 10/31/2021 2:26 PM [facility] URINE GLUCOSE, QUAL Negative Negative 10/31/2021 2:26 PM [facility] URINE KETONES Negative Negative 10/31/2021 2:26 PM [facility] UROBILINOGEN Normal Normal mg/dL 10/31/2021 2:26 PM [facility] URINE BLOOD 250 /uL(A) Negative josefa/ul 10/31/2021 2:26 PM [facility] URINALYSIS COLOR Dark Yellow 10/31/2021 2:26 PM [facility] URINALYSIS CLARITY Very Cloudy 10/31/2021 2:26 PM [facility] WBC (Urine) 21-50(A) Negative, 0-5 /hpf 10/31/2021 2:26 PM [facility] URINE RBC'S 21-50(A) Negative, 0-2 /hpf 10/31/2021 2:26 PM [facility] EPITHELIAL CELLS Occasional /lpf 10/31/2021 2:26 PM [facility] BACTERIA, URINE Packed(A) Negative /hpf 10/31/2021 2:26 PM [facility] Urine Non-Phlebotomy Collection / Unknown 10/31/2020 12:15 PM DISTILLING DEPARTMENT SUPERVISOR 10/31/2021 1:47 PM DISTILLING DEPARTMENT SUPERVISOR Victoriano Reid MD URINE ORDERABLES Final Result [facility] #[address] [place] [address] documented in this encounter Visit Diagnoses Diagnosis Personal history of urinary (tract) infections documented in this encounter Additional Health Concerns Assessment Noted Time PHQ-9 Depression Total Score: 0 10/24/19 11:16 AM DISTILLING DEPARTMENT SUPERVISOR documented as of this encounter Care Teams Industrial Organization Manager Relationship Specialty Start Date End Date Victoriano Reid MD PCP - General Family Medicine 06/19/19 06/29/24 Elva Olivares DO 2 [facility]. [address] [place] [address] PCP - General Family Medicine 07/01/24 Malissa Joe, RN [place] Nurse Sourcing Consultant 12/03/23 12/03/23 Malissa Joe, RN [place] Nurse Sourcing Consultant 12/05/23 12/05/23 [place], NEWSROOM INTERN [place] [employer] Pe Teacher Sourcing Consultant 11/03/24 Cabrera Yadav MD #2 [facility] [address] [place] [address] Consulting Physician Urology 11/07/24 documented as of this encounter
--- OUTSIDE RECORDS SUMMARY | 2024-12-04 18:05 | XMS_ITS | Encounter Summary ---
Author Organization [facility] Address [address] [place] [address] Phone Care Team Providers Care Effervescent Salts Compounder Name Role Phone Victoriano Reid MD Primary Care Provider [phone] Malissa Joe RN Unavailable Unavailable Malissa Joe RN Unavailable Unavailable Elva Olivares DO Primary Care Provider [phone] [place] HAIR CLIPPER POWER Unavailable Unaabdirizaki Cabrera Dodge MD Unavailable [phone] Encounter Details Date Type Department Care Team (Late st Contact Info) Description 07/11/2023 Lab Requisition [facility] Services 1 [place] [phone] Victoriano Reid MD #1 [place] [address] Personal history of urinary (tract) infections; Neuromuscular dysfunction of bladder, unspecified Social History [...] Description 01/02/2025 10:30 AM CDT Procedure Visit [facility] #2 [place] [address] Cabrera Yadav MD #2 [facility] [address] [place] [address] 01/09/2025 1:00 PM CDT Office Visit [facility] - [facility] #2 [place] [address] Elva Olivares, DO 2 [facility]. [address] [place] [address] documented as of this encounter Procedures Procedure Name Priority Date/Time Associated Diagnosis Comments CULTURE, URINE Routine 07/11/2023 11:30 AM CDT Personal history of urinary (tract) infections Neuromuscular dysfunction of bladder, unspecified documented in this encounter Results * CULTURE, URINE (07/11/2023 11:30 AM CDT) CULTURE RESULTS [facility]RO[facility]CT[facility] AMALONATICUS 07/14/2023 4:17 PM CDT [facility] CULTURE RESULTS ENTEROCOCCUS FAECALIS 07/14/2023 4:17 PM CDT [facility] Culture No Phlebotomy Charged / Unknown 07/11/2023 11:30 AM CDT 07/11/2023 1:28 PM CDT Narrative [facility] - 07/14/2023 4:17 PM CDT Susceptibility not performed on enterococcus species. Due to high achievable concentrations in urine, Ampicillin is the drug of choice for treating infections limited to the lower urinary tract (regardless of Vancomycin susceptibility). For allergic patients, Nitrofurantoin or a quinolone may be substituted. Organism Antibiotic Method Susceptibility Citrobacter amalonaticus Cefepime [facility] VITEK IIB <=1 mcg/ml: Susceptible Citrobacter amalonaticus Ceftriaxone [facility] VITEK IIB <=1 [...] Trimeth/Sulfamethoxazole [facility] VITEK IIB <=20 mcg/ml: Susceptible us Victoriano Reid MD MICROBIOLOGY - GENERAL ORDERABLE S Final Result [facility] [address] [place] [address], documented in this encounter Visit Diagnoses Diagnosis Personal history of urinary (tract) infections Neuromuscular dysfunction of bladder, unspecified documented in this encounter Additional Health Concerns Assessment Noted Time PHQ-9 Depression Total Score: 0 08/15/20 21 10:00 AM CDT documented as of this encounter Care Teams Effervescent Salts Compounder Relationship Specialty Start Date End Date Victoriano Reid MD PCP - General Family Medicine 06/19/19 06/29/24 Elva Olivares DO [address] [address] PCP - General Family Medicine 07/01/24 Malissa Joe RN [place] Nurse Compounding Technician 12/03/23 12/03/23 Joe, Malissa M, RN [place] Nurse Compounding Technician 12/05/23 12/05/23 [place], HAIR CLIPPER POWER [place] Ball Machine Operator Compounding Technician 11/03/24 Cabrera Yadav MD #[address] [address] Consulting Physician Urology 11/07/24 documented as of this encounter
--- OUTSIDE RECORDS SUMMARY | 2024-12-04 18:05 | XMS_ITS | Encounter Summary ---
Author Organization [facility] Address [address] [facility] [place] [address] Phone Care Team Providers Care Strategic Intelligence Officer Name Role Phone Victoriano Reid MD Primary Care Provider [phone] Malissa Joe RN Unavailable Unavailable Malissa Joe RN Unavailable Unavailable Elva Olivares DO Primary Care Provider [phone] [place] LIBRARY TECHNICAL ASSISTANT Unavailable UnaCabrera Nevarez MD Unavailable [phone] Reason for Visit * Reason Onset Date Comments Results 10/25/2020 Encounter Details Date Type Department Care Team (Late st Contact Info) Description 10/25/2020 Telephone [facility] [address] [place] [address] Victoriano Reid MD #1 [place] [address] Results Social History Tobacco Use Types Packs/Day Years [...] encounter Miscellaneous Notes * Telephone Encounter - Glenny Julian RN - 10/25/2020 5:46 PM CST lmom GRINDER HELPER * Telephone Encounter - Victoriano Reid MD - 10/25/2020 4:56 PM CST The urine is not showing quite enough to be infection but I will treat her as I know that her urinewas very foul smelling and has a lot of sediment and this is from the bacteria. I will send in an antibiotic. GRINDER HELPER * Telephone Encounter - Jelena Cotto RN - 10/25/2020 4:04 PM CST Patient's daughter calling for results from UA and Urine culture from 10/22/20. GRINDER HELPER documented in this encounter Plan of Treatment Upcoming Encounters Date Type Department Care Team (Late st Contact Info) Description 01/02/2025 10:30 AM CDT Procedure Visit [facility] #2 [place] [phone] Cabrera Yadav MD #2 [facility] [address] [place] [address] 01/09/2025 1:00 PM CDT Office Visit [facility] - [place] #2 [facility] [place] [phone] Elva Olivares, DO 2 [facility]. 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 [address] [place] [address] PCP - General Family Medicine 07/01/24 Malissa Joe, RN [place] Nurse Fixed Wing Aircraft Flight Engineer 12/03/23 12/03/23 Malissa Joe RN [place] Nurse Fixed Wing Aircraft Flight Engineer 12/05/23 12/05/23 [place], LIBRARY TECHNICAL ASSISTANT [place] Head Sawyer Automatic Fixed Wing Aircraft Flight Engineer 11/03/24 Cabrera Yadav MD #2 [facility] [facility] [address] [place] [address] Consulting Physician Urology 11/07/24 documented as of this encounter
--- OUTSIDE RECORDS SUMMARY | 2024-12-04 18:05 | XMS_ITS | Encounter Summary ---
Author Organization [facility] Address [address] [place] [address] Phone Care Team Providers Care Pie Cutter Name Role Phone Victoriano Reid MD Primary Care Provider [phone] Malissa Joe RN Unavailable Unavailable Malissa Joe RN Unavailable Unavailable Elva Olivares DO Primary Care Provider [phone] [place] CLIENT SERVICES VICE PRESIDENT Unavailable Unaabdirizaki Cabrera Dodge MD Unavailable [phone] Encounter Details Date Type Department Care Team (Late st Contact Info) Description 04/24/2023 Lab Requisition [facility] Services 1 [place] [phone] Victoriano Reid MD #1 [place] [address] Personal history of urinary (tract) infections Social [...] suspected to have Coronavirus/COVID-19? No / Unsure 03/29/2023 12:28 PM CDT documented as of this encounter Plan of Treatment Upcoming Encounters Date Type Department Care Team (Late st Contact Info) Description 01/02/2025 10:30 AM CDT Procedure Visit [facility] UROLOGY #2 [place] [address] Cabrera Yadav MD #2 [facility] [address] [place] [address] 01/09/2025 1:00 PM CDT Office Visit [facility] Group - Family Medicine [facility] #2 [place] [address] Elva Olivares, DO 2 [facility]. [address] [place] [address] documented as of this encounter Procedures Procedure Name Priority Date/Time Associated Diagnosis Comments URINALYSIS REFLEX IF INDICATED BY ABNORMAL RESULTS Routine 04/24/2023 12:54 PM CDT Personal history of urinary (tract) infections CULTURE, URINE Routine 04/24/2023 12:54 PM CDT Personal history of urinary (tract) infections documented in this encounter Results * CULTURE, URINE (04/24/2023 12:54 PM CDT) CULTURE RESULTS CITROBACTER AMALONATICUS 04/26/2023 8:20 PM CDT [facility] CULTURE RESULTS ENTEROCOCCUS FAECALIS 04/26/2023 8:20 PM CDT [facility] Urine Non-Phlebotomy Collection / Unknown 04/24/2023 12:54 PM CDT 04/24/2023 2:33 PM CDT Narrative [facility] - 04/26/2023 8:20 PM CDT Susceptibility not performed on enterococcus species. Due to high achievable concentrations in urine, Ampicillin is the drug of choice for treating infections limited to the lower urinary tract (regardless of Vancomycin susceptibility). For allergic patients, Nitrofurantoin or a quinolone may be substituted. For epidemiological purposes only, a Vancomycin screen will be performed and reported if positive. Organism Antibiotic Method Susceptibility Citrobacter amalonaticus Cefepime [facility] VITEK II <=1 [...] MICROBIOLOGY - GENERAL ORDERABLE S Final Result [facility] [address] [facility] [place] [address], * (ABNORMAL) URINALYSIS REFLEX IF INDICATED BY ABNORMAL RESULTS (04/24/2023 12:54 PM CDT) Pathologist [facility] SPECIFIC GRAVITY 1.005 1.003 - 1.030 04/24/2023 3:[address] [facility] URINE PH 7.0 5.0 - 9.0 04/24/2023 3:[address] [facility] WBC ESTERASE 500 /uL(A) Negative 04/24/2023 3:02 PM CDT [facility] NITRITE Positive(A) Negative 04/24/2023 3:02 PM CDT [facility] PROTEIN, RANDOM URINE 30 mg/dL(A) Negative 04/24/2023 3:02 PM CDT [facility] URINE GLUCOSE, QUAL Negative Negative 04/24/2023 3:02 PM CDT [facility] URINE KETONES Negative Negative 04/24/2023 3:02 PM CDT [facility] UROBILINOGEN Normal Normal mg/dL 04/24/2023 3:02 PM CDT [facility] URINE BLOOD 250 /uL(A) Negative josefa/ul 04/24/2023 3:02 PM CDT [facility] URINALYSIS COLOR Yellow 04/24/20 3:02 PM CDT [facility] URINALYSIS CLARITY Very Cloudy 04/24/2023 3:02 PM CDT [facility] WBC (Urine) 51-150(A) Negative, 0-5 /hpf 04/24/2023 3:02 PM CDT [facility] URINE RBC'S 51-150(A) Negative, 0-2 /hpf 04/24/2023 3:02 PM CDT [facility] EPITHELIAL CELLS Moderate amount /lpf 04/24/2023 3:02 PM CDT [facility] BACTERIA, URINE Many(A) Negative /hpf 04/24/2023 3:02 PM CDT [facility] CRYSTALS Amorphous urates 04/24/2023 3:02 PM CDT [facility] Urine Non-Phlebotomy Collection / Unknown 04/24/2023 12:54 PM CDT 04/24/2023 2:33 PM CDT us Victoriano Reid MD URINE ORDERABLES Final Result [facility] #1 [place] [address] documented in this encounter Visit Diagnoses Diagnosis Personal history of urinary (tract) infections documented in this encounter Additional Health Concerns Assessment Noted Time PHQ-9 Depression Total Score: 0 08/15/20 21 10:00 AM CDT documented as of this encounter Care Teams Pie Cutter Relationship Specialty Start Date End Date Victoriano Reid MD PCP - General Family Medicine 06/19/19 06/29/24 Elva Olivares DO 2 [facility]. [address] [place] [address] PCP - General Family Medicine 07/01/24 Malissa Joe, RN [place] Nurse Explosives Detonator 12/03/23 12/03/23 Malissa Joe RN [place] Nurse Explosives Detonator 12/05/23 12/05/23 [place], CLIENT SERVICES VICE PRESIDENT [place] Arc Welder Apprentice Explosives Detonator 11/03/24 Cabrera Yadav MD #2 [facility] [address] [place] [address] Consulting Physician Urology 11/07/24 documented as of this encounter
--- OUTSIDE RECORDS SUMMARY | 2024-12-04 18:05 | XMS_ITS | Encounter Summary ---
Author Organization [facility] Address [address] [place] [address] Phone Care Team Providers Care Insurance Risk Surveyor Name Role Phone Victoriano Reid MD Primary Care Provider [phone] Malissa Joe RN Unavailable Unavailable Malissa Joe RN Unavailable Unavailable Elva Olivares DO Primary Care Provider [phone] [place] WIRE STRAIGHTENER Unavailable Unaabdirizaki Cabrera Dodge MD Unavailable [phone] Encounter Details Date Type Department Care Team (Late st Contact Info) Description 05/22/2023 Lab Requisition [facility] Laboratory Services 1 [place] [phone] Victoriano Reid MD #1 [place] [address] Urinary tract infection, site not specified Social [...] 10:30 AM CDT Procedure Visit [facility] UROLOGY #2 [place] [address] Cabrera Yadav MD #2 [facility] [address] [place] [address] 01/09/2025 1:00 PM CDT Office Visit [facility] Group - Family Medicine - [place] #2 [place] [address] Elva Olivares, DO 2 [facility]. [address] [place] [address] documented as of this encounter Procedures Procedure Name Priority Date/Time Associated Diagnosis Comments URINALYSIS REFLEX IF INDICATED BY ABNORMAL RESULTS Routine 05/22/2023 1:00 PM CDT Urinary tract infection, site not specified CULTURE, URINE Routine 05/22/2023 1:00 PM CDT Urinary tract infection, site not specified documented in this encounter Results * CULTURE, URINE (05/22/2023 1:00 PM CDT) CULTURE RESULTS CITROBACTER AMALONATICUS 05/27/2023 3:22 PM CDT [facility] CULTURE RESULTS ALSO MIXED GROWTH OF DISTAL URETHRA CONTAMINANTS. 05/27/2023 3:22 PM CDT [facility] Urine Non-Phlebotomy Collection / Unknown 05/22/2023 1:00 PM CDT 05/22/2023 2:04 PM CDT Narrative Organism Antibiotic Method Susceptibility Citrobacter amalonaticus Cefepime [facility] VITEK II <=1 mcg/ml: Susceptible Citrobacter amalonaticus Ceftriaxone [facility] VITEK II <=1 mcg/ml: Susceptible Citrobacter amalonaticus Gentamicin [facility] VITEK II <=1 mcg/ml: Susceptible Citrobacter amalonaticus Levofloxacin [facility] VITEK II <=0.12 mcg/ml: Susceptible Comment:This is an a ppended report. These results have been appended to a previously final verified report. Citrobacter amalonaticus Meropenem [facility] VITEK II <=0.25 mcg/ml: Susceptible Comment:This is an a ppended report. These results have been appended to a previously final verified report. Citrobacter amalonaticus Nitrofurantoin [facility] VITEK II 64 mcg/ml: Intermediate Comment:This is an a ppended report. These results have been appended to a previously final verified report. Citrobacter amalonaticus Piperacillin/Tazobactam [facility] VITEK II <=4 mcg/ml: Susceptible Comment:This is an a ppended report. These results have been appended to a previously final verified report. Citrobacter amalonaticus Tobramycin [facility] VITEK II <=1 mcg/ml: Susceptible Citrobacter amalonaticus Trimeth/Sulfamethoxazole [facility] VITEK II <=20 mcg/ml: Susceptible Comment:This is an a ppended report. These results have been appended to a previously final verified report. us Victoriano Reid MD MICROBIOLOGY - GENERAL ORDERABLE S Edited Result - Final [facility] [address] [place] [address], * (ABNORMAL) URINALYSIS REFLEX IF INDICATED BY ABNORMAL RESULTS (05/22/2023 1:00 PM CDT) SPECIFIC GRAVITY 1.010 1.003 - 1.030 05/22/2023 2:36 PM CDT [facility] URINE PH 7.0 5.0 - 9.0 05/22/2023 2:36 PM CDT [facility] WBC ESTERASE 500 /uL(A) Negative 05/22/2023 2:36 PM CDT [facility] NITRITE Positive(A) Negative 05/22/2023 2:36 PM CDT [facility] PROTEIN, RANDOM URINE 30 mg/dL(A) Negative 05/22/2023 2:36 PM CDT [facility] URINE GLUCOSE, QUAL Negative Negative 05/22/2023 2:36 PM CDT [facility] URINE KETONES Negative Negative 05/22/2023 2:36 PM CDT [facility] UROBILINOGEN Normal Normal mg/dL 05/22/2023 2:36 PM CDT [facility] URINE BLOOD 250 /uL(A) Negative josefa/ul 05/22/2023 2:36 PM CDT [facility] URINALYSIS COLOR Yellow 05/22/2023 2:36 PM CDT [facility] URINALYSIS CLARITY Slightly Cloudy 05/22/2023 2:36 PM CDT [facility] WBC (Urine) 11-20(A) Negative, 0-5 /hpf 05/22/2023 2:36 PM CDT [facility] URINE RBC'S 51-150(A) Negative, 0-2 /hpf 05/22/2023 2:36 PM CDT [facility] EPITHELIAL CELLS Occasional /lpf 05/22/2023 2:36 PM CDT [facility] BACTERIA, URINE Packed(A) Negative /hpf 05/22/2023 2:36 PM CDT [facility] Urine Non-Phlebotomy Collection / Unknown 05/22/2023 1:00 PM CDT 05/22/2023 2:04 PM CDT us Victoriano Reid MD URINE ORDERABLES Final Result [facility] #[address] [place] [address] documented in this encounter Visit Diagnoses Diagnosis Urinary tract infection, site not specified documented in this encounter Additional Health Concerns Assessment Noted Time PHQ-9 Depression Total Score: 0 08/15/20 10:00 AM CDT documented as of this encounter Care Teams Insurance Risk Surveyor Relationship Specialty Start Date End Date Victoriano Reid MD PCP - General Family Medicine 06/19/19 06/29/24 Elva Olivares DO 2 [facility] [address] [place] [address] PCP - General Family Medicine 07/01/24 Malissa Joe, RN [place] Nurse Cyber Security Consultant 12/03/23 12/03/23 Malissa Joe, RN [place] Nurse Cyber Security Consultant 12/05/23 12/05/23 [place], WIRE STRAIGHTENER [place] Circulation Crew Leader Cyber Security Consultant 11/03/24 Cabrera Yadav MD #2 [facility] [address] [place] [address] Consulting Physician Urology 11/07/24 documented as of this encounter
--- OUTSIDE RECORDS SUMMARY | 2024-12-04 18:05 | XMS_ITS | Encounter Summary ---
Author Organization [facility] Address [address] [place] [address] Phone Care Team Providers Care Motor Vehicle Field Representative Name Role Phone Victoriano Reid MD Primary Care Provider [phone] Malissa Joe RN Unavailable Unavailable Malissa Joe RN Unavailable Unavailable Elva Olivares DO Primary Care Provider [phone] [place] EDI COORDINATOR Unavailable Unaabdirizaki Cabrera Dodge MD Unavailable [phone] Encounter Details Date Type Department Care Team (Late st Contact Info) Description 01/02/2022 Home Health Resumpti on of Care Planning [facility] [address] [place] [address] Social History Tobacco Use Types Packs/Day Years [...] suspected to have Coronavirus/COVID-19? No / Unsure 01/05/2022 2:22 PM CDT documented as of this encounter Plan of Treatment Upcoming Encounters Date Type Department Care Team (Late st Contact Info) Description 01/02/2025 10:30 AM CDT Procedure Visit [facility] UROLOGY #[address] [place] [address] Cabrera Yadav MD #2 [facility] [address] [place] [address] 01/09/2025 1:00 PM CDT Office Visit [facility] [address]2 [place] [address] Elva Olivares DO 2 [facility]. [address] [place] [address] documented as of this encounter Visit Diagnoses Not on filedocumented in this encounter Additional Health Concerns Assessment Noted Time PHQ-9 Depression Total Score: 0 08/15/20 10:00 AM CDT documented as of this encounter Care Teams Motor Vehicle Field Representative Relationship Specialty Start Date End Date Victoriano Reid MD PCP - General Family Medicine 06/19/19 06/29/24 Elva Olivares DO 2 [facility] [address] [place] [address] PCP - General Family Medicine 07/01/24 Malissa Joe, RN [place] Nurse Laundry Assistant 12/03/23 12/03/23 Malissa Joe RN [place] Nurse Laundry Assistant 12/05/23 12/05/23 [place], EDI COORDINATOR [place] Molder Apprentice Laundry Assistant 11/03/24 Cabrera Yadav MD #[address] [address] Consulting Physician Urology 11/07/24 documented as of this encounter
--- OUTSIDE RECORDS SUMMARY | 2024-12-04 18:05 | XMS_ITS | Encounter Summary ---
Author Organization [facility] Address [address] [place] [address] Phone Care Team Providers Care Private Pilot Name Role Phone Victoriano Reid MD Primary Care Provider [phone] Malissa Joe RN Unavailable Unavailable Malissa Joe RN Unavailable Unavailable Elva Olivares DO Primary Care Provider [phone] [place] SOFTWARE DATABASE ARCHITECT Unavailable Cabrera Smallwood MD Unavailable [phone] Reason for Visit * Reason Comments Medication Refill Encounter Details Date Type Department Care Team (Late st Contact Info) Description 08/07/2021 Refill [facility] #[address] [place] [address] Victoriano Reid MD #1 [place] [address] Medication Refill Social History Tobacco Use Types [...] encounter Miscellaneous Notes * Telephone Encounter - Ele Deluca RN - 08/09/2021 9:36 AM CDT Medication failed the protocol, provider to review and approve the medication order if appropriate. Requested Prescriptions Pending Prescriptions Disp Refills potassium chloride (MICRO-K) 10 MEQ Capsule CR [Pharmacy Med Name: POTASSIUM CL 10MEQ ER CAPSULES] 60 Capsule 4 Sig: TAKE 1 CAPSULE BY MOUTH TWICE DAILY Potassium Supplement Protocol Failed - 08/07/2021 11:19 AM Failed - Normal serum potassium in past 12 months POTASSIUM Date Value Ref Range Status 08/03/2020 4.2 3.5 - 5.1 mmol/L Final Passed - Visit with relevant provider in past 12 months or upcoming 90 days Recent Visits Date Type Provider Dept 02/14/21 Telemedicine Victoriano Reid MD [facility] Ken Showing recent visits within past 365 days and meeting all other requirements Future Appointments Date Type Provider Dept 08/15/21 Appointment Victoriano Reid MD [facility] [place] Showing future appointments within next 90 days and meeting all other requirements documented in this encounter Plan of Treatment Upcoming Encounters Date Type Department Care Team (Late st Contact Info) Description 01/02/2025 10:30 AM CDT Procedure Visit [facility] UROLOGY [address] [place] [address] Cabrera Yadav MD [address] [address] 01/09/2025 1:00 PM CDT Office Visit [facility] - [place] [address] [place] [address] Elva Olivares, DO [address] [place] [address] [place] [address] documented as of this encounter Visit Diagnoses Not on filedocumented in this encounter Additional Health Concerns Assessment Noted Time PHQ-9 Depression Total Score: 0 10/24/19 20 11:16 AM CAR AND YARD SUPERVISOR documented as of this encounter Care Teams Private Pilot Relationship Specialty Start Date End Date Victoriano Reid MD PCP - General Family Medicine 06/19/19 06/29/24 Elva Olivares DO [address] [facility] [address] [place] [address] PCP - General Family Medicine 07/01/24 Malissa Joe RN [place] Nurse Outpatient Services Director 12/03/23 12/03/23 Malissa Joe RN [place] Nurse Outpatient Services Director 12/05/23 12/05/23 H[place], SOFTWARE DATABASE ARCHITECT [place] Front Edger Outpatient Services Director 11/03/24 Cabrera Yadav MD [facility] [facility] [address] [place] [address] Consulting Physician Urology 11/07/24 documented as of this encounter
--- OUTSIDE RECORDS SUMMARY | 2024-12-04 18:05 | XMS_ITS | Encounter Summary ---
Author Organization [facility] Address [address] [place] [address] Phone Care Team Providers Care Supervisor Meter Shop Name Role Phone Victoriano Reid MD Primary Care Provider [phone] Malissa Joe RN Unavailable Unavailable Malissa Joe RN Unavailable Unavailable Elva Olivares DO Primary Care Provider [phone] [place] ROTARY ENGRAVER Unavailable Unaabdirizaki Cabrera Dodge MD Unavailable [phone] Encounter Details Date Type Department Care Team (Late st Contact Info) Description 08/31/2023 Lab Requisition [facility] Laboratory Services [address] [place] [id number] Victoriano Reid MD #1 [place] [address] Urinary tract infection, site not specified Social [...] Description 01/02/2025 10:30 AM CDT Procedure Visit [facility] PHYSICIAN [facility] UROLOGY #[address] [place] [address] Cabrera Yadav MD #2 [facility] [address] [place] [address] 01/09/2025 1:00 PM CDT Office Visit [facility] - Family Medicine - [place] #2 [place] [address] Elva Olivares, DO 2 [facility]. [address] [place] [address] documented as of this encounter Procedures Procedure Name Priority Date/Time Associated Diagnosis Comments URINALYSIS REFLEX IF INDICATED BY ABNORMAL RESULTS Routine 08/31/2023 12:00 PM HEAT TREAT WORKER Urinary tract infection, site not specified CULTURE, URINE Routine 08/31/2023 12:00 PM HEAT TREAT WORKER Urinary tract infection, site not specified documented in this encounter Results * CULTURE, URINE (08/31/2023 12:00 PM HEAT TREAT WORKER) CULTURE RESULTS ENTEROCOCCUS FAECALIS 09/02/2023 6:17 PM HEAT TREAT WORKER [facility] Urine Non-Phlebotomy Collection / Unknown 08/31/2023 12:00 PM HEAT TREAT WORKER 08/31/2023 1:39 PM HEAT TREAT WORKER [facility]ative [facility] - 09/02/2023 6:17 PM HEAT TREAT WORKER Susceptibility not performed on enterococcus species. Due to high achievable concentrations in urine, Ampicillin is the drug of choice for treating infections limited to the lower urinary tract (regardless of Vancomycin susceptibility). For allergic patients, Nitrofurantoin or a quinolone may be substituted. us Victoriano Reid MD MICROBIOLOGY - GENERAL ORDERABLE S Final Result [facility] [address] [place] [address], [place] * (ABNORMAL) URINALYSIS REFLEX IF INDICATED BY ABNORMAL RESULTS (08/31/2023 12:00 PM HEAT TREAT WORKER) SPECIFIC GRAVITY 1.005 1.003 - 1.030 08/31/2023 2:27 PM HEAT TREAT WORKER [facility] URINE PH 7.0 5.0 - 9.0 08/31/2023 2:27 PM [facility] WBC ESTERASE 500 /uL(A) Negative 08/31/2023 2:27 PM [facility] NITRITE Negative Negative 08/31/2023 2:27 PM [facility] PROTEIN, RANDOM URINE 30 mg/dL(A) Negative 08/31/2023 2:27 PM HEAT TREAT WORKER [facility] URINE GLUCOSE, QUAL Negative Negative 08/31/2023 2:27 PM HEAT TREAT WORKER [facility] URINE KETONES Negative Negative 08/31/2023 2:27 PM [facility] UROBILINOGEN Normal Normal mg/dL 08/31/2023 2:27 PM [facility] URINE BLOOD 250 /uL(A) Negative josefa/ul 08/31/2023 2:27 PM HEAT TREAT WORKER [facility] URINALYSIS COLOR Yellow 08/31/2023 2:27 PM [facility] URINALYSIS CLARITY Slightly Cloudy 08/31/2023 2:27 PM [facility] WBC (Urine) 6-10(A) Negative, 0-5 /hpf 08/31/2023 2:27 PM [facility] URINE RBC'S 3-5(A) Negative, 0-2 /hpf 08/31/2023 2:27 PM [facility] EPITHELIAL CELLS Occasional /lpf 08/31/2023 2:27 PM HEAT TREAT WORKER [facility] BACTERIA, URINE Few(A) Negative /hpf 08/31/2023 2:27 PM HEAT TREAT WORKER [facility] Urine Non-Phlebotomy Collection / Unknown 08/31/2023 12:00 PM HEAT TREAT WORKER 08/31/2023 1:39 PM HEAT TREAT WORKER Victoriano Reid MD URINE ORDERABLES Final Result [facility] #[address] [place] [address] documented in this encounter Visit Diagnoses Diagnosis Urinary tract infection, site not specified documented in this encounter Additional Health Concerns Assessment Noted Time PHQ-9 Depression Total Score: 0 08/15/20 10:00 AM CDT documented as of this encounter Care Teams Supervisor Meter Shop Relationship Specialty Start Date End Date Victoriano Reid MD PCP - General Family Medicine 06/19/19 06/29/24 Elva Olivares DO [address] [address] PCP - General Family Medicine 07/01/24 Malissa Joe, RN [place] Nurse Import/Export Analyst 12/03/23 12/03/23 Malissa Joe RN [place] Nurse Import/Export Analyst 12/05/23 12/05/23 H[place] LSW [place] Pole Setter Import/Export Analyst 11/03/24 Cabrera Yadav MD #[address] [address] Consulting Physician Urology 11/07/24 documented as of this encounter
--- OUTSIDE RECORDS SUMMARY | 2024-12-04 18:06 | XMS_ITS | Encounter Summary ---
Author Organization [facility] Address [address] [place] [address] Phone Care Team Providers Care District Court Judge Name Role Phone Victoriano Reid MD Primary Care Provider Malissa Joe RN Unavailable Unavailable Malissa Joe RN Unavailable Unavailable Elva Olivares DO Primary Care Provider [phone] [place] RADIATION THERAPY TECHNICIAN Unavailable Unaabdirizaki Cabrera Dodge MD Unavailable [phone] Encounter Details Date Type Department Care Team (Late st Contact Info) Description 03/18/2021 Lab Requisition [facility] Laboratory Services [address] [place] [id number] Victoriano Reid MD #1 [place] [address] Neuromuscular dysfunction of bladder, unspecified; Acute cystitis without hematuria; Sepsis, unspecified organism (HCC) Social History Tobacco Use Types Packs/Day [...] 01/02/2025 10:30 AM CDT Procedure Visit [facility] UROLOGY #2 [place] [address] Cabrera Yadav MD #2 [facility] [address] [place] [address] 01/09/2025 1:00 PM CDT Office Visit [facility] - Family Medicine [facility] #[address] [place] [address] Elva Olivares, DO 2 [facility] [address] [place] [address] documented as of this encounter Procedures Procedure Name Priority Date/Time Associated Diagnosis Comments CULTURE, URINE Routine 03/19/2021 8:12 PM CDT Neuromuscular dysfunction of bladder, unspecified Acute cystitis without hematuria Sepsis, unspecified organism (HCC) URINALYSIS REFLEX IF INDICATED BY ABNORMAL RESULTS Routine 03/18/2021 2:20 PM CDT Neuromuscular dysfunction of bladder, unspecified Acute cystitis without hematuria Sepsis, unspecified organism (HCC) documented in this encounter Results * CULTURE, URINE (03/19/2021 8:12 PM CDT) CULTURE RESULTS MIXED GROWTH OF ONE OR MORE DISTAL URETHRAL CONTAMINANTS 03/19/2021 8:12 PM CDT [facility] Urine Non-Phlebotomy Collection / Unknown 03/18/2021 1:41 PM CDT us Victoriano Reid MD MICROBIOLOGY - GENERAL ORDERABLE S Final Result [facility] [address] [place] [address], * (ABNORMAL) URINALYSIS REFLEX IF INDICATED BY ABNORMAL RESULTS (03/18/2021 2:20 PM CDT) SPECIFIC GRAVITY 1.010 1.003 - 1.030 03/18/2021 2:20 PM CDT [facility] URINE PH 8.0 5.0 - 9.0 03/18/2021 2:20 PM CDT [facility] WBC ESTERASE 500 /uL(A) Negative 03/18/2021 2:20 PM CDT [facility] NITRITE Positive(A) Negative 03/18/2021 2:20 PM CDT [facility] PROTEIN, RANDOM URINE Negative Negative 03/18/2021 2:20 PM CDT [facility] URINE GLUCOSE, QUAL Negative Negative 03/18/2021 2:20 PM CDT [facility] URINE KETONES Negative Negative 03/18/2021 2:20 PM CDT [facility] UROBILINOGEN Normal Normal mg/dL 03/18/2021 2:20 PM CDT [facility] URINE BILIRUBIN Negative Negative 2:20 PM CDT [facility] URINE BLOOD 150 /uL(A) Negative josefa/ul 03/18/2021 2:20 PM CDT [facility] URINALYSIS COLOR Straw 03/18/2021 2:20 PM CDT [facility] URINALYSIS CLARITY Very Cloudy 03/18/2021 2:20 PM CDT [facility] WBC (Urine) 11-20(A) Negative, 0-5 /hpf 03/18/2021 2:20 PM CDT [facility] URINE RBC'S 6-10(A) Negative, 0-2 /hpf 03/18/2021 2:20 PM CDT [facility] EPITHELIAL CELLS Small amount /lpf 03/18/2021 2:20 PM CDT [facility] BACTERIA, URINE Moderate(A) Negative /hpf 03/18/2021 2:20 PM CDT [facility] URINE MUCOUS Many 03/18/2021 2:20 PM CDT [facility] CRYSTALS Amorphous phosphates 03/18/2021 2:20 PM CDT [facility] Urine Non-Phlebotomy Collection / Unknown 03/18/2021 1:41 PM CDT us Victoriano Reid MD URINE ORDERABLES Final Result [facility] #[address] [place] [address] documented in this encounter Visit Diagnoses Diagnosis Neuromuscular dysfunction of bladder, unspecified Acute cystitis without hematuria Acute cystitis Sepsis, unspecified organism (HCC) documented in this encounter Additional Health Concerns Infection Onset Date Last Indicated Resolved Time 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 06/05/2019 04/15/2021 7:28 AM CDT Assessment Noted Time PHQ-9 Depression Total Score: 0 10/24/19 20 11:16 AM GIRLS SWIMMING COACH documented as of this encounter Care Teams District Court Judge Relationship Specialty Start Date End Date Victoriano Reid MD PCP - General Family Medicine 06/19/19 06/29/24 Elva Olivares DO 2 [facility] [address] [address] PCP - General Family Medicine 07/01/24 Malissa Joe, RN [place] Nurse Reservations Specialist 12/03/23 12/03/23 Malissa Joe, RN [place] Nurse Reservations Specialist 12/05/23 12/05/23 [place], RADIATION THERAPY TECHNICIAN [place] Scale Manager Reservations Specialist 11/03/24 Cabrera Yadav MD #[address] [address] Consulting Physician Urology 11/07/24 documented as of this encounter
--- OUTSIDE RECORDS SUMMARY | 2024-12-04 18:06 | XMS_ITS | Encounter Summary ---
Author Organization [facility] Address [address] [place] [address] Phone Care Team Providers Care Assembler Metal Building Name Role Phone Victoriano Reid MD Primary Care Provider [phone] Malissa Joe RN Unavailable Unavailable Malissa Joe RN Unavailable Unavailable Elva Olivares DO Primary Care Provider [phone] [place] COREMAKER EXPERIMENTAL Unavailable Cabrera Smallwood MD Unavailable [phone] Reason for Visit * Reason Comments Medication Refill Encounter Details Date Type Department Care Team (Late st Contact Info) Description 06/08/2022 Refill [facility] - Family Medicine [facility] #[address] [place] [address] Victoriano Reid MD #1 [place] [address] Medication Refill Social History Tobacco Use Types [...] Telephone Encounter - Camilla Hauser RN - 06/08/2022 11:04 AM CDT Medication failed the protocol, provider to review and approve the medication order if appropriate. Requested Prescriptions Pending Prescriptions Disp Refills Eliquis 5 MG Tablet [Pharmacy Med Name: ELIQUIS 5MG TABLETS] 180 Tablet 2 Sig: TAKE 1 TABLET BY MOUTH TWICE DAILY FOR PREVENTION OF UNWANTED CLOT IN VEINS Not Delegated - DOACs Protocol Failed - 06/08/2022 5:55 AM Failed - This refill cannot be delegated Passed - CBC on record in the past year WBC Date Value Ref Range Status 01/05/2022 9.00 4.00 - 12.00 10(3)/mcL Final WBC ESTERASE Date Value Ref Range Status 11/23/2021 500 /uL (A) Negative Final RBC Date Value Ref Range Status 01/05/2022 4.43 3.80 - 5.30 10(6)/mcL Final HEMATOCRIT (HCT) Date Value Ref Range Status 01/05/2022 44.0 36.0 - 47.0 % Final HEMOGLOBIN (HGB) Date Value Ref Range Status 01/05/2022 14.4 12.0 - 15.8 g/dL Final MCV Date Value Ref Range Status 01/05/2022 99.3 (H) 82.0 - 96.0 fL Final MCH Date Value Ref Range Status 01/05/2022 32.5 26.0 - 34.0 pg Final MCHC Date Value Ref Range Status 01/05/2022 32.7 31.0 - 36.0 g/dL Final Passed - Visit with relevant provider in past 12 months or upcoming 90 days Recent Visits Date Type Provider Dept 01/05/22 Office Visit Nia Abbott PAC [facility] 08/15/21 Office Visit Victoriano Reid MD [facility] [place] Showing recent visits within past 365 days and meeting all other requirements Future Appointments No visits were found meeting these conditions. Showing future appointments within next 90 days and meeting all other requirements Passed - CMP on record in the past year SODIUM Date Value Ref Range Status 01/05/2022 139 136 - 144 mmol/L Final POTASSIUM Date Value Ref Range Status 01/05/2022 4.4 3.5 - 5.1 mmol/L Final CHLORIDE Date Value Ref Range Status 01/05/2022 101 100 - 110 mmol/L Final CO2, VENOUS Date Value Ref Range Status 01/05/2022 27 22 - 32 mmol/L Final ANION GAP Date Value Ref Range Status 01/05/2022 15.4 8.0 - 20.0 mmol/L Final GLUCOSE Date Value Ref Range Status 01/05/2022 114 (H) 70 - 99 mg/dL Final BUN Date Value Ref Range Status 01/05/2022 18 8 - 23 mg/dL Final CREATININE, BLOOD Date Value Ref Range Status 01/05/2022 0.53 (L) 0.60 - 1.10 mg/dL Final BUN/CREATININE RATIO Date Value Ref Range Status 01/05/2022 34 (H) 12 - 20 ratio Final TOTAL PROTEIN Date Value Ref Range Status 01/05/2022 7.0 6.0 - 8.3 g/dL Final ALBUMIN Date Value Ref Range Status 01/05/2022 4.0 3.5 - 5.2 g/dL Final Comment: The colormetric methods used for the determination of Albumin may lead to falsely elevated test results in patients suffering from renal failure or insufficiency due to interference with other proteins. A/G RATIO Date Value Ref Range Status 01/05/2022 1.3 1.0 - 2.0 Final CALCIUM Date Value Ref Range Status 01/05/2022 9.7 8.9 - 10.3 mg/dL Final T BILI Date Value Ref Range Status 01/05/2022 <0.3 <=1.2 mg/dL Final SGOT (AST) Date Value Ref Range Status 01/05/2022 11 <=32 U/L Final SGPT (ALT) Date Value Ref Range Status 01/05/2022 9 <=41 U/L Final ALKALINE PHOSPHATASE Date Value Ref Range Status 01/05/2022 73 35 - 105 U/L Final GFR, EST. NONAFRICAN Date Value Ref Range Status 01/05/2022 >60 >=60 Final GFR, EST. Date Value Ref Range Status 01/05/2022 >60 >=60 Final Comment: Creatinine Clearance is the preferred criteria for selecting drug dose adjustments in renally impaired patients. The GFR is provided as additional pertinent clinical information. GFR is reported in mL/min/1.73 sq m. IS THE PATIENT REQUIRED TO BE FASTING? Date Value Ref Range Status 01/05/2022 No Final Passed - Creatinine and GFR on record in the past year CREATININE, BLOOD Date Value Ref Range Status 01/05/2022 0.53 (L) 0.60 - 1.10 mg/dL Final GFR, EST. NONAFRICAN Date Value Ref Range Status 01/05/2022 >60 >=60 Final potassium chloride (MICRO-K) 10 MEQ Capsule CR [Pharmacy Med Name: POTASSIUM CL 10MEQ ER CAPSULES] 180 Capsule 2 Sig: TAKE 1 CAPSULE BY MOUTH TWICE DAILY Potassium Supplement Protocol Passed - 06/08/2022 5:55 AM Passed - Normal serum potassium in past 12 months POTASSIUM Date Value Ref Range Status 01/05/2022 4.4 3.5 - 5.1 mmol/L Final Passed - Visit with relevant provider in past 12 months or upcoming 90 days Recent Visits Date Type Provider Dept 01/05/22 Office Visit Nia Abbott PAC [facility] [place] 08/15/21 Office Visit Victoriano Reid MD [facility] Showing recent visits within past 365 days [...] [facility] [address] [place] [address] Cabrera Yadav MD #[address], [address] [address] 01/09/2025 1:00 PM CDT Office Visit [facility] - Family Medicine - [place] [address] [place] [address] Elva Olivares DO 2 [facility] [address] [place] [address] documented as of this encounter Visit Diagnoses Diagnosis 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) documented in this encounter Additional Health Concerns Assessment Noted Time PHQ-9 Depression Total Score: 0 08/15/20 21 10:00 AM CDT documented as of this encounter Care Teams Assembler Metal Building Relationship Specialty Start Date End Date Victoriano Reid MD PCP - General Family Medicine 06/19/19 06/29/24 Elva Olivares DO 2 [facility] [address] [place] [address] PCP - General Family Medicine 07/01/24 Malissa Joe, RN [place] Nurse Block Breaker 12/03/23 12/03/23 Malissa Joe, RN [place] Nurse Block Breaker 12/05/23 12/05/23 [place], [facility] [place] Department Store Salesperson Block Breaker 11/03/24 Cabrera Yadav MD [address] [address] Consulting Physician Urology 11/07/24 documented as of this encounter
--- OUTSIDE RECORDS SUMMARY | 2024-12-04 18:06 | XMS_ITS | Clinical Summary ---
Author Organization [facility] Address [address] [place] [address] Phone Care Team Providers Care Eyeglass Frames Polisher Name Role Phone EliseElva Becky GARCIA Primary Care Provider [phone] Cabrera Yadav MD Unavailable [phone] Allergies Active Allergy Reactions Criticality Noted Date Comments Marcchirag Manely High 04/05/2019 Medications acetaminophen (TYLENOL) 500 MG TabletIndications :Fever,Pain Take 1,000 mg by mouth every 6 hours as needed for Fever or Mild pain or more severe pain if patient requests. Indications: Fever, Pain Active Diapers & Supplies MiscIndications:N eurogenic bladder Use as directed 120 Each 06/19/20 Active Disposable Gloves MiscIndications:N eurogenic bladder Use when changing diapers and armijo Neurogenic bladder 100 Each 3 06/19/20 19 Active Misc. Devices (MATTRESS PAD) MiscIndications:N eurogenic bladder Use under patient for urine absorption Neurogenic bladder. 100 Each 3 06/19/20 19 Active Misc. Devices Misc Supply and instructions:villagomez ier cream Apply to pressure areas on body four times a day. 1 Each 5 07/17/20 19 Active Lancet Devices (Lancing Device) Misc Use as directed to test blood glucose. Testing frequency: 3 to 4 times a day. Dx: E11.65 Diabetes type 2 1 Each 08/26/20 Active Misc. Devices MiscIndications:P aralysis of both lower limbs (HCC) Supply and instructions: 1 Each 09/03/20 Active Incontinence Supplies MiscIndications:N eurogenic bladder X large diapers, incontinence pads for bed and medium gloves 100 Each 3 07/09/20 Active Blood Glucose Monitoring Suppl DeviceIndications :Type 2 diabetes mellitus with other specified complication, without long-term current use of insulin ([facility]) Use to test once daily E11.69 1 Each 01/06/20 22 Active Glucose Blood (Glucose Meter Test) StripIndications: Type 2 diabetes mellitus with other specified complication, without long-term current use of insulin ([facility]) Test once daily 90 Strip 3 01/06/20 22 Active Lancets MiscIndications:T ype 2 diabetes mellitus with other specified complication, without long-term current use of insulin ([facility]) Test once daily 90 Lancet 3 01/06/20 22 Active Alcohol Swabs (Alcohol Prep) 70 % PadsIndications:U ncontrolled type 2 diabetes mellitus with hyperglycemia ([facility]) USE PRIOR TO TESTING BLOOD SUGAR AND FOR INSULIN INJECTIONS, TEST 4 TIMES PER DAY 100 Each 6 05/06/20 Active Misc. Devices MiscIndications:S myrna cord compression due to malignant neoplasm metastatic to spine (HCC) Supply and instructions: please assess and repair pump on the air mattress. 1 Each 12/04/19 24 Active Misc. Devices MiscIndications:S myrna cord compression due to malignant neoplasm metastatic to spine (HCC) Supply and instructions: 1 Each 12/20/19 24 Active ergocalciferol (VITAMIN D) 80257 UNIT CapsuleIndication s:Vitamin D Deficiency TAKE 1 CAPSULE BY MOUTH 1 TIME A WEEK 12 Capsule 3 02/22/20 24 Active baclofen (LIORESAL) 10 MG TabletIndications :Muscle Spasm,Muscle Spasticity TAKE 1 TABLET BY MOUTH THREE TIMES DAILY NEEDED FOR MUSCLE SPASMS 270 Tablet 1 04/15/20 24 Active gabapentin (NEURONTIN) 300 MG CapsuleIndication s:Neuropathic Pain Take 2 Capsules by mouth every 8 hours. 270 Capsule 1 04/15/20 24 Active loperamide (IMODIUM) 2 MG CapsuleIndication s:Diarrhea Take 1 Capsule by mouth 4 times daily as needed for Diarrhea. Take 2 caps = 4mg after first loose stool then take 1 cap = 2mg after each subsequent loose stool. Do not exceed 16 mg = 8 caps in 24 hours. As needed for diarrhea 100 Capsule 04/15/20 24 Active montelukast (SINGULAIR) 10 MG Tablet Take 1 Tablet by mouth every evening. 90 Tablet 04/15/20 24 Active Additional Information Patient not taking.Reported on 08/18/2024 nystatin [id number] UNIT/GM Powder Apply 3 times daily. Apply to affected area as directed. 60 g 3 04/15/20 24 Active oxybutynin (DITROPAN-XL) 10 MG TABLET SR 24 HRIndications:Uri nary Incontinence,neur omuscular bladder dysfunction Take 1 Tablet by mouth daily. 90 Tablet 04/15/20 24 Active Simethicone 80 MG TabletIndications :Flatulence Take 1 Tablet by mouth 4 times daily as needed for Other (for gas). 360 Each 04/15/20 24 Active Diclofenac Sodium (VOLTAREN) 1 % GelIndications:pa in L shoulder Apply 4 g 4 times daily. Left shoulder 100 g 5 04/15/20 24 Active Citric Ro-Uujqgvrjgzl-Bv Carb (Renacidin) SolutionIndicatio ns:Urinary Catheter Irrigation 30 mL by Intracatheter route daily. instill 30ml into catheter daily. Clamp catheter for 30-60minutes after irrigation. Use saline solution to flush until can be obtained 2700 mL 3 04/15/20 24 Active nitrofurantoin, monohydrate-macro crystal, (Macrobid) 100 MG Capsule Take 100 mg by mouth 2 times daily. Take one dose every 12 hours until completed. 08/11/20 24 Active aspirin EC 81 MG Tablet Delayed Response Take 81 mg by mouth daily. Active potassium chloride (MICRO-K) 10 MEQ Capsule CR TAKE 1 CAPSULE BY MOUTH TWICE DAILY 180 Capsule 1 10/16/19 25 Active Active Problems Problem Noted Date Diagnosed Date Herpes 09/19/2022 Chronic cough 09/19/2022 Gassiness 09/19/2022 Bowel and bladder incontinence 02/05/2020 Painful bladder spasm 01/22/2020 Spinal cord compression due to malignant neoplasm metastatic to spine 07/06/2019 Neurogenic bladder 07/06/2019 Dry mouth 07/06/2019 Allergic rhinitis 07/06/2019 Muscle spasm 07/06/2019 Diffuse large b-cell lymphom a, lymph nodes of multiple sites 03/11/2019 Overview (06/19/2019): Last Assessment & Plan: -diagnosed February 2019 -Treatment with R-CHOP + HD MTX -titrate bicarb to keep urine pH greater than 7 -Currently admitted for C4D15 HD MTX, will d/c when MTX clears; R-CHOP will start outpatient Sunday, patient will receive Neulasta post R-CHOP -OI ppx: ACV Vitamin D deficiency 03/03/2019 Overview (06/19/2019): 25-D level 7 Last Assessment & Plan: -Vitamin D 50,000 units weekly High risk medication use 02/26/2019 Overview (06/19/2019): Last Assessment & Plan: Intensive insulin therapy in the setting of steroids and variable po intake increase the risk of glucose variability. High-dose steroids continue, affecting glycemic control. Will closely monitor glycemic pattern and adjust insulin accordingly to prevent hypo or hyperglycemia. Paralysis of both lower limbs 02/25/2019 Overview (06/19/2019): Last Assessment & Plan: -2/2 to spinal cord compression -Works with PT BID at home and family daily -Reports that she is starting to regain feeling in BLE -Permanent armijo 2/2 to lack of urge to urinate Spinal stenosis of thoracic region 02/25/2019 Type 2 diabetes mellitus wit hout complication, without long-term current use of insulin 02/23/2019 Overview (06/19/2019): 63 y/o woman without sig PMH, presents with acute LE weakness, back pain and urinary retention, s/p spinal decompression. Newly diagnosed type 2 diabetes. A1C 8.9%. Last Assessment & Plan: -Takes Metformin at home -HDSSI ordered while inpatient-->resume Metformin at discharge -Has order to take NPH 20 units daily while on Prednisone for steroid-induced hyperglycemia Tobacco abuse 02/23/2019 Overview (06/19/2019): Last Assessment & Plan: -not interested in smoking cessation counseling -refused patch Back pain of thoracolumbar region 02/23/2019 Overview (06/19/2019): Last Assessment & Plan: -Tylenol prn -Does not like the way Oxy makes her feel Resolved Problems Problem Noted Date Diagnosed Date Resolved Date Skin yeast infection 09/19/2022 023 Hypokalemia 09/19/2022 03/29/2023 Severe malnutrition 06/13/2019 09/19/20 22 Anxiety 04/10/2019 09/19/2022 Hypertension, essential 02/23/2019 12/0 03/2022 Overview (06/19/2019): Last Assessment & Plan: - In setting of pain. BP improved as pain improves. - No need for treatment now. Encounters Date Type Department Care Team Description 11/21/2024 1:15 PM FRUIT LOADER Clinical Support [facility] [address] [place] [address] NurseKen Urology Suprapubic catheter (HCC) (Primary Dx) Discharge Disposition: Discharged to home or Selfcare 11/21/2024 Travel 11/10/2024 [facility] [address] [place] [address] Elva Olivares, COVID-19 11/10/2024 [facility] [address] [place] [address] Elva Olivares DO Sinus Pain 11/07/2024 12:45 PM FRUIT LOADER Office Visit [facility] [address] [place] [address] Singh Myrick APRN, FORGE SHOP SUPERVISOR Leif, Cabrera Gan MD Neurogenic bladder; Suprapubic catheter (HCC) Discharge Disposition: Discharged to home or Selfcare 11/06/2024 Travel 11/03/2024 [facility] Coordinator Management [address] [place] [address] [place], [facility] Care Management (SW outreach ) 10/30/2024 Telephone [facility] [address] [place] [address] Elva Olivares, DO Orders 10/24/2024 Home Care Visit [address] [address] Cher Estrada, OT OT - DISCHARGE SUMMARY 10/17/2024 Home Care Visit [address] [address] Cher Hightower, RN TELEPHONE ENCOUNTER 10/16/2024 12:30 PM FRUIT LOADER Home Care Visit [address] [address] Cher Hightower, RN SN - OASIS DISCHARGE 10/16/2024 Home Care Visit [address] [address] Cher Hightower, RN TELEPHONE ENCOUNTER 10/15/2024 Refill [facility] - Family [facility] [address] [place] [address] Victoriano Reid MD Medication Refill 10/09/2024 Home Care Visit [address] [address] Cher Hightower, RN CARE CONFERENCE 10/06/2024 1:00 PM FRUIT LOADER Home Care Visit [address] [address] Marcela Correia LPN SN - PRIORITY VISIT 10/06/2024 Nurse Triage [address] [address] Cher Griffin, RN Symptom Management 10/03/2024 12:00 PM FRUIT LOADER Home Care Visit [address] [address] Marcela Correia LPN SN - PRN VISIT 10/03/[address] [address] Shayne Miller, RN Appointment 10/03/[address] [address] Katy Gaitan RN Urinary Catheter Problem 09/22/2024 12:00 PM FRUIT LOADER Home Care Visit [address] [address] Kirti Holt RN SN - PRIORITY VISIT 09/22/2024 Nurse Triage [address] [address] Annelise Chapman RN Urinary Catheter Problem 09/08/2024 10:30 AM FRUIT LOADER Home Care Visit [address] [address] Cher Hightower RN SN - PRIORITY VISIT from Last 3 Months Family History Medical History Relation Name Comments Asthma Father Ray Cancer Father Ray Chronic Obstructive Pulmonary Disease Father Ray Arthritis Mother Debra Cancer Mother Debra Diabetes Mother Debra Heart Disease Mother Debra Relation Name Status Comments Father Ray Mother Debra Social History Tobacco Use Types Packs/Day Years Used Date Smoking Tobacco: Every Day Cigarettes 2 15 Smokeless Tobacco: Never Tobacco Cessation:Ready to Q uit: Not Asked; Counseling Given: Not Answered Alcohol Use Standard Drinks/Week Comments Not Currently 0 (1 standard drink = 0.6 oz pur e alcohol) [facility] Utilities Answer Date Recorded In the past 12 months has [email or web address], gas, oil, or water Ium threatened to shut off services in your [...] often do you attend chur ch or mosque services? Never 04/15/2024 Do you belong to any clubs o r organizations such as confucianist groups, unions, fraternal or athletic groups, or [...] Total Score - Questions 1-9 0 12/14 [facility] - Occupational [...] place to sleep or slept in a mcfp (including now)? No 12/20/2023 Housing Stability Vital Sign Answer Saleem e Recorded In the last 12 months, was t here a time when you were not able to pay the mortgage or rent on time? No 04/15/2024 Number of Times Moved in the Last Year Not on fi le 04/15/2024 At any time in the past 12 m [facility], were you homeless or living in a mcfp (including now)? No 04/15/2024 Education Answer Date [...] Sign Reading Time Taken Comments Blood Pressure 124/80 11/07/2024 12:31 PM FRUIT LOADER Pulse 71 11/07/2024 12:31 PM FRUIT LOADER Temperature 36.2 C (97.2 F) 10/16/2024 12:38 PM FRUIT LOADER Respiratory Rate 18 11/07/2024 12:3 1 PM FRUIT LOADER Oxygen Saturation 99% 10/16/2024 12: 38 PM FRUIT LOADER Inhaled Oxygen Concentration - - Weight 172.4 kg (380 lb 1.6 oz) 025 12:31 PM FRUIT LOADER Height 167.6 cm (5' 6 ) 11/07/2024 12:3 1 PM FRUIT LOADER Body Mass Index 61.35 11/07/2024 12:31 PM FRUIT LOADER Plan of Treatment Upcoming Encounters Date Type Department Care Team (Late st Contact Info) Description 01/02/2025 10:30 AM CDT Procedure Visit [facility] [address] [place] [address] Cabrera Yadav MD [address], [address] [address] 01/09/2025 1:00 PM CDT Office Visit [facility] [place] [address] [place] [id number] Elva Olivares, DO [address], [address] [place] [address] Health Maintenance Due Date Last Done Comments DEXA Bone Density 1957 Diabetes: Eye Exam 1957 Hepatitis C Virus (HCV) Screening 1957 Mammogram 1957 TdaP Immunization 1957 SARS-COV-2 Immunization (#1) 1962 Pneumococcal Immunization (50+ years) (1 of 2 - PCV) 1976 Zoster Immunization (1 of 2) 1976 Colonoscopy 2002 Colorectal Cancer Screening 2002 Cologuard 2007 Immunochemical Fecal Occult Blood 2007 Respiratory Syncytial Virus (RSV) Immunization (Adult) (1 - Risk 60-74 years 1-dose series) 2017 Lung Cancer Screening 04/15/2020 04/15/2019 Diabetes: Foot Exam 10/24/2020 10/24/2019, 10/24/2019, 10/24/2019 Influenza Immunization (#1) 2024 Diabetes: Hemoglobin A1c 10/16/2024 024, 12/20/2023, 03/29/2023, Additional history exists Diabetes: Nephropathy Screening 05/27/2025 05/27/2024, 05/27/2024, 12/20/2023, Additional history exists Hepatitis B Immunization Aged Out No longer eligible based on patient's age to complete this topic Meningococcal Immunization (ACWY) Aged Out No longer eligible based on patient's age to complete this topic Rotavirus Immunization Aged Out No lo nger eligible based on patient's age to complete this topic Procedures Procedure Name Priority Date/Time Associated Diagnosis Comments UR MICROALBUMIN/CREATIN INE RATIO RANDOM Routine 05/27/2024 1:00 PM CDT Type 2 diabetes mellitus without complications (HCC) Other regional intermodal truck driver (current) drug therapy POCT GLYCOSYLATED HEMOGLOBIN Routine 04/15/2024 11:24 AM CDT Type 2 diabetes mellitus without complication, without long-term current use of insulin (HCC) from Last 3 Months or Most Recently Relevant to Health Maintenance Results * (ABNORMAL) UR MICROALBUMIN/CREATININE RATIO RANDOM (05/27/2024 1:00 PM CDT) RAN UR MICROALBUMIN 0.89 mg/dL 05/27/2024 3:00 PM CDT [facility] Comment:No reference range h as been established. Consider Clinical Correlation. CREATININE URINE 7.4 mg/dL 05/27/20 3:00 PM CDT [facility] Comment:No reference range h as been established. Consider Clinical Correlation. ALB/CREAT RATIO 120(H) 0 - 30 mg/g CRE 05/27/2024 3:00 PM CDT [facility] Urine Non-Phlebotomy Collection / Unknown 05/27/2024 1:00 PM CDT 05/27/2024 2:30 PM CDT Singh Myrick APRN, CNP URINE ORDERABLES Final Result [facility] [address] [place] [address] * POCT GLYCOSYLATED HEMOGLOBIN (04/15/2024 11:24 AM CDT) HGB-A1C 6.0 4 - 6 % Blood 04/15/2024 11:2 4 AM CDT Singh Myrick APRN, CNP POINT OF CARE TE STING (MANUAL) Final Result from Last 3 Months or Most Recently Relevant to Health Maintenance Insurance MEDICAID [place] MEDICARE C [employer] Advance Directives * Full Code (Latest Code Status on File) Date Activated Date Inactivated Comments 04/10/2019 2:14 PM Care Teams Eyeglass Frames Polisher Relationship Specialty Start Date End Date Elva Olivares DO [address] [facility] [address] [place] [address] PCP - General Family Medicine 07/01/24 Cabrera Yadav MD [address] [facility] [address] [place] [address] Consulting Physician Urology 11/07/24
--- OUTSIDE RECORDS SUMMARY | 2024-12-04 18:06 | XMS_ITS | Encounter Summary ---
Author Organization [facility] Address [address] [place] [address] Phone Care Team Providers Care Spool Winder Name Role Phone Victoriano Reid MD Primary Care Provider [phone] Malissa Joe RN Unavailable Unavailable Malissa Joe RN Unavailable Unavailable Elva Olivares DO Primary Care Provider [phone] [place] STUDENT SERVICES DEAN Unavailable Cabrera Smallwood MD Unavailable [phone] Reason for Visit * Reason Comments Medication Refill Encounter Details Date Type Department Care Team (Late st Contact Info) Description 08/07/2022 Refill [facility] - Family Medicine [facility] [address] [place] [address] Victoriano Reid MD [address] [place] [address] Medication Refill Social History Tobacco Use Types [...] suspected to have Coronavirus/COVID-19? No / Unsure 08/10/2022 1:20 PM CDT documented as of this encounter Miscellaneous Notes * Telephone Encounter - Dariana Knapp RMA - 08/07/2022 4:28 PM CDT Scheduled * Telephone Encounter - Camilla Hauser RN - 08/07/2022 10:44 AM CDT Patient needs an OV with PCP * Telephone Encounter - Camilla Hauser RN - 08/07/2022 10:44 AM CDT Medication failed the protocol, provider to review and approve the medication order if appropriate. Requested Prescriptions Pending Prescriptions Disp Refills gabapentin (NEURONTIN) 300 MG Capsule [Pharmacy Med Name: GABAPENTIN 300MG CAPSULES] 180 Capsule 0 Sig: TAKE 2 CAPSULES BY MOUTH EVERY 8 HOURS Not Delegated - Anticonvulsants Excluding Benzodiazepines Protocol Failed - 08/07/2022 8:07 AM Failed - This refill cannot be delegated Passed - Visit with relevant provider in past 12 months or upcoming 90 days Recent Visits Date Type Provider Dept 01/05/22 Office Visit Nia Abbott PAC [facility] 08/15/21 Office Visit Victoriano Reid MD [facility] Ken Showing recent visits within past 365 days and meeting all other requirements Future Appointments No visits were found meeting these conditions. Showing future appointments within next 90 days and meeting all other requirements loratadine (CLARITIN) 10 MG Tablet [Pharmacy Med Name: LORATADINE 10MG TABLETS] 30 Tablet 0 Sig: TAKE 1 TABLET BY MOUTH DAILY Non-sedating Antihistamines Protocol Passed - 08/07/2022 8:07 AM Passed - Visit with relevant provider in past 12 months or upcoming 90 days Recent Visits Date Type Provider Dept 01/05/22 Office Visit Nia Abbott PAC [facility] 08/15/21 Office Visit Victoriano Reid MD [facility] [...] Delegated - Muscle Relaxants Protocol Failed - 08/07/2022 8:07 AM Failed - This refill cannot be delegated Passed - Visit with relevant provider in past 12 months or upcoming 90 days Recent Visits Date Type Provider Dept 01/05/22 Office Visit Nia Abbott PAC [facility] 08/15/21 Office Visit Victoriano Reid MD [facility] Showing recent visits within past 365 days and meeting all other requirements Future Appointments No visits were found meeting these conditions. Showing future appointments within next 90 days and meeting all other requirements nystatin [id number] UNIT/GM Powder [Pharmacy Med Name: NYSTOP TOP PWDR 100,000 30GM] 60 g 0 Sig: APPLY TOPICALLY TO THE AFFECTED AREA THREE TIMES DAILY X 14 DAYS Topical Antifungal Agents Protocol Passed - 08/07/2022 8:07 AM Passed - Visit with relevant provider in past 12 months or upcoming 90 days Recent Visits Date Type Provider Dept 01/05/22 Office Visit Nia Abbott PAC [facility] 08/15/21 Office Visit [facility] Showing recent visits within past 365 days and meeting all other requirements Future Appointments No visits were found meeting these conditions. Showing future appointments within next 90 days and meeting all other requirements documented in this encounter Plan of Treatment Upcoming Encounters Date Type Department Care Team (Late st Contact Info) Description 01/02/2025 10:30 AM CDT Procedure Visit [facility] [address] [address] Cabrera Yadav MD [address] [facility] [address] [place] [address] 01/09/2025 1:00 PM CDT Office Visit [facility] [address] [address] Elva Olivares DO [address] [facility] [address] [place] [address] documented as of this encounter Visit Diagnoses Diagnosis Neurogenic bladder Neurogenic bladder, NOS Allergic rhinitis, unspecified seasonality, unspecified trigger Muscle spasm Spasm of muscle documented in this encounter Additional Health Concerns Assessment Noted Time PHQ-9 Depression Total Score: 0 08/15/20 21 10:00 AM CDT documented as of this encounter Care Teams Spool Winder Relationship Specialty Start Date End Date Victoriano Reid MD PCP - General Family Medicine 06/19/19 06/29/24 Elva [facility]ares DO [address] [facility] [address] [place] [address] PCP - General Family Medicine 07/01/24 Malissa Joe, RN [place] Nurse Crude Oil Treater 12/03/23 12/03/23 Malissa Joe RN [place] Nurse Crude Oil Treater 12/05/23 12/05/23 [place], STUDENT SERVICES [place]AN [place] Director Educational Radio Crude Oil Treater 11/03/24 Cabrera Yadav MD [address] [facility] [address] [place] [address] Consulting Physician Urology 11/07/24 documented as of this encounter
--- OUTSIDE RECORDS SUMMARY | 2024-12-04 18:06 | XMS_ITS | Encounter Summary ---
Author Organization [facility] Address [address] [place] [address] Phone Care Team Providers Care School Laboratory Technician Name Role Phone Victoriano Reid MD Primary Care Provider [phone] Malissa Joe RN Unavailable Unavailable Malissa Joe RN Unavailable Unavailable Elva Olivares DO Primary Care Provider [phone] [place] ESTATE ADMINISTRATOR Unavailable Unaabdirizaki Cabrera Dodge MD Unavailable [phone] Encounter Details Date Type Department Care Team (Late st Contact Info) Description 11/29/2020 Lab Requisition [facility] Laboratory Services [address] [place] [phone] Victoriano Reid MD #1 [place] [address] Personal history of urinary (tract) infections Social [...] Description 01/02/2025 10:30 AM CDT Procedure Visit [facility] [address] [place] [address] Cabrera Yadav MD #2 [facility] [place] [address] 01/09/2025 1:00 PM CDT Office Visit [facility] - [place] #2 [place] [address] Elva Olivares, DO 2 [facility], [facility]. [address] [place] [address] documented as of this encounter Procedures Procedure Name Priority Date/Time Associated Diagnosis Comments URINALYSIS REFLEX IF INDICATED BY ABNORMAL RESULTS Routine 11/29/2020 12:45 PM LOGISTICS SOLUTION MANAGER Personal history of urinary (tract) infections CULTURE, URINE Routine 11/29/2020 12:45 PM LOGISTICS SOLUTION MANAGER Personal history of urinary (tract) infections documented in this encounter Results * CULTURE, URINE (11/29/2020 12:45 PM LOGISTICS SOLUTION MANAGER) CULTURE RESULTS STAPHYLOCOCCUS AUREUS 12/01/2020 4:47 PM LOGISTICS SOLUTION MANAGER [facility] Urine Non-Phlebotomy Collection / Unknown 11/29/2020 12:45 PM LOGISTICS SOLUTION MANAGER 11/29/2020 1:55 PM LOGISTICS SOLUTION MANAGER Narrative Organism Antibiotic Method Susceptibility Staphylococcus aureus Gentamicin [facility] VITEK IIB <=0.5 mcg/ml: Susceptible Staphylococcus aureus Nitrofurantoin [facility] IIB 32 mcg/ml: Susceptible Staphylococcus aureus Oxacillin [facility] V[facility] IIB <=0.25 mcg/ml: Susceptible Staphylococcus aureus Tetracycline [facility] V[facility] IIB <=1 mcg/ml: Susceptible Staphylococcus aureus Trimeth/Sulfamethoxazole [facility] RANDY IIB <=10 mcg/ml: Susceptible Staphylococcus aureus Vancomycin [facility] VITEK IIB <=0.5 mcg/ml: Susceptible us Victoriano Reid MD MICROBIOLOGY - GENERAL ORDERABLE S Final Result [facility] [address] [place] [address], [place] * (ABNORMAL) URINALYSIS REFLEX IF INDICATED BY ABNORMAL RESULTS (11/29/2020 12:45 PM LOGISTICS SOLUTION MANAGER) SPECIFIC GRAVITY 1.010 1.003 - 1.030 11/29/2020 2:17 PM LOGISTICS SOLUTION MANAGER [facility] URINE PH 7.0 5.0 - 9.0 11/29/2020 2:17 PM LOGISTICS SOLUTION MANAGER [facility] WBC ESTERASE 500 /uL(A) Negative 11/29/2020 2:17 PM LOGISTICS SOLUTION MANAGER [facility] NITRITE Negative Negative 11/29/2020 2:17 PM LOGISTICS SOLUTION MANAGER [facility] PROTEIN, RANDOM URINE 30 mg/dL(A) Negative 11/29/2020 2:17 PM LOGISTICS SOLUTION MANAGER [facility] URINE GLUCOSE, QUAL Negative Negative 11/29/2020 2:17 PM LOGISTICS SOLUTION MANAGER [facility] URINE KETONES Negative Negative 11/29/2020 2:17 PM LOGISTICS SOLUTION MANAGER [facility] UROBILINOGEN Normal Normal mg/dL 11/29/2020 2:17 PM LOGISTICS SOLUTION MANAGER [facility] URINE BILIRUBIN Negative Negative 2:17 PM LOGISTICS SOLUTION MANAGER [facility] URINE BLOOD 250 /uL(A) Negative josefa/ul 11/29/2020 2:17 PM [facility] URINALYSIS COLOR Yellow 11/29/19 2:17 PM LOGISTICS SOLUTION MANAGER [facility] URINALYSIS CLARITY Very Cloudy 11/29/2020 2:17 PM [facility] WBC (Urine) 51-150(A) Negative, 0-5 /hpf 11/29/2020 2:17 PM LOGISTICS SOLUTION MANAGER [facility] URINE RBC'S 51-150(A) Negative, 0-2 /hpf 11/29/2020 2:17 PM LOGISTICS SOLUTION MANAGER [facility] EPITHELIAL CELLS Occasional /lpf 11/29/19 2:17 PM LOGISTICS SOLUTION MANAGER [facility] BACTERIA, URINE Many(A) Negative /hpf 11/29/2020 2:17 PM LOGISTICS SOLUTION MANAGER [facility] URINE MUCOUS Few 11/29/2020 2:17 PM LOGISTICS SOLUTION MANAGER [facility] Urine Non-Phlebotomy Collection / Unknown 11/29/2020 12:45 PM LOGISTICS SOLUTION MANAGER 11/29/2020 1:55 PM LOGISTICS SOLUTION MANAGER us Victoriano Reid MD URINE ORDERABLES Final Result [facility] [place] [address] documented in this encounter Visit Diagnoses Diagnosis Personal history of urinary (tract) infections documented in this encounter Additional Health Concerns Infection Onset Date Last Indicated Resolved Time 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 06/05/2019 04/15/2021 7:2 8 AM CDT Assessment Noted Time PHQ-9 Depression Total Score: 0 10/24/19 20 11:16 AM LOGISTICS SOLUTION MANAGER documented as of this encounter Care Teams School Laboratory Technician Relationship Specialty Start Date End Date Victoriano Reid MD PCP - General Family Medicine 06/19/19 06/29/24 Elva Olivares DO [address] [address] PCP - General Family Medicine 07/01/24 Malissa Joe, RN [place] Nurse Director Hr Communications 12/03/23 12/03/23 Malissa Joe, RN [place] Nurse Director Hr Communications 12/05/23 12/05/23 [place], ESTATE ADMINISTRATOR [place] Sharepoint Developer Director Hr Communications 11/03/24 Cabrera Yadav MD #[address] [facility] [address] Consulting Physician Urology 11/07/24 documented as of this encounter
--- OUTSIDE RECORDS SUMMARY | 2024-12-04 18:06 | XMS_ITS | Encounter Summary ---
Author Organization [facility] Address [address] [place] [address] Phone Care Team Providers Care Bicycle Assembler Name Role Phone Victoriano Reid MD Primary Care Provider [phone] Viktoriya Arias JAVA SOFTWARE ENGINEER Unavailable Unavailab Malissa Polo RN Unavailable Unavailable Malissa Joe RN Unavailable Unavailable Elva Olivares DO Primary Care Provider [phone] [place] JAVA SOFTWARE ENGINEER Unavailable Papoi Cabrera Dodge MD Unavailable [phone] Encounter Details Date Type Department Care Team (Late st Contact Info) Description 01/13/2020 [facility] [address] [place] [phone] Victoriano Reid MD #[address] [place] [address] Urinary tract infection, site not specified Social [...] Description 01/02/2025 10:30 AM CDT Procedure Visit [facility] UROLOGY #2 [place] [phone] Cabrera Yadav MD #2 [facility] [address] [place] [address] 01/09/2025 1:00 PM CDT Office Visit [facility] - Family Medicine - [place] #2 [facility] [place] [address] Elva Olivares, DO 2 [facility]. [address] [place] [address] documented as of this encounter Procedures Procedure Name Priority Date/Time Associated Diagnosis Comments URINALYSIS REFLEX IF INDICATED BY ABNORMAL RESULTS Routine 01/13/2020 5:15 PM CDT Urinary tract infection, site not specified CULTURE, URINE Routine 01/13/2020 5:15 PM CDT Urinary tract infection, site not specified documented in this encounter Results * CULTURE, URINE (01/13/2020 5:15 PM CDT) CULTURE RESULTS KLEBSIELLA PNEUMONIAE 01/15/2020 9:27 PM CDT [facility] CULTURE RESULTS GRAM-NEGATIVE BACILLUS 01/15/2020 9:27 PM CDT [facility] Comment: STRAIN 2 NO FURTHER WORKUP PERFORMED Urine specimen (specimen) Non-Phlebotomy Collection / Unknown 01/13/2020 5:15 PM CDT 01/13/2020 7:55 PM CDT Narrative Organism Antibiotic Method Susceptibility Klebsiella pneumoniae Ampicillin [facility] VITEK IIB >=32 mcg/ml: Resistant Klebsiella pneumoniae Ampicillin/sulbactam [facility] VITEK IIB >=32 mcg/ml: Resistant Klebsiella pneumoniae Cefazolin [facility] IIB <=4 mcg/ml: Susceptible Klebsiella pneumoniae Cefepime [facility] V[facility] IIB <=1 mcg/ml: Susceptible Klebsiella pneumoniae Ceftriaxone [facility] V[facility] IIB <=1 mcg/ml: Susceptible Klebsiella pneumoniae Gentamicin [facility] IIB <=1 mcg/ml: Susceptible Klebsiella pneumoniae Levofloxacin [facility] V[facility] IIB <=0.12 mcg/ml: Susceptible Klebsiella pneumoniae Meropenem [facility] V[facility] IIB <=0.25 mcg/ml: Susceptible Klebsiella pneumoniae Nitrofurantoin [facility] V[facility] IIB <=16 mcg/ml: Susceptible Klebsiella pneumoniae Piperacillin/Tazobactam [facility] VIT EK IIB 16 mcg/ml: Susceptible Klebsiella pneumoniae Tobramycin [facility] VITEK IIB <=1 mcg/ml: Susceptible Klebsiella pneumoniae Trimeth/Sulfamethoxazole [facility] RANDY IIB >=320 mcg/ml: Resistant us Victoriano Reid MD MICROBIOLOGY - GENERAL ORDERABLE S Final Result [facility] [address] [place] [address], * (ABNORMAL) URINALYSIS REFLEX IF INDICATED BY ABNORMAL RESULTS (01/13/2020 5:15 PM CDT) Pathologist [facility] SPECIFIC GRAVITY 1.005 1.003 - 1.030 01/13/2020 8:06 PM CDT [facility] URINE PH 7.0 5.0 - 9.0 01/13/2020 8:06 PM CDT [facility] WBC ESTERASE 500 /uL(A) Negative 01/13/2020 8:06 PM CDT [facility] NITRITE Positive(A) Negative 01/13/2020 8:06 PM CDT [facility] PROTEIN, RANDOM URINE Negative Negative 01/13/2020 8:06 PM CDT [facility] URINE GLUCOSE, QUAL Negative Negative 01/13/2020 8:06 PM CDT [facility] URINE KETONES Negative Negative 01/13/2020 8:06 PM CDT [facility] UROBILINOGEN Normal Normal mg/dL 01/13/2020 8:06 PM CDT [facility] URINE BILIRUBIN Negative Negative 0 8:06 PM CDT [facility] URINE BLOOD 10 /uL(A) Negative josefa/ul 01/13/2020 8:06 PM CDT [facility] URINALYSIS COLOR Straw 01/13/20 20 8:06 PM CDT [facility] URINALYSIS CLARITY Very Cloudy 01/13/2020 8:06 PM CDT [facility] WBC (Urine) 21-50(A) Negative, 0-5 /hpf 01/13/2020 8:06 PM CDT [facility] URINE RBC'S 0-2 Negative, 0-2 /hpf 01/13/2020 8:06 PM CDT [facility] EPITHELIAL CELLS Occasional /lpf 01/13/20 20 8:06 PM CDT [facility] BACTERIA, URINE Packed(A) Negative /hpf 01/13/2020 8:06 PM CDT [facility] Urine specimen (specimen) Non-Phlebotomy Collection / Unknown 01/13/2020 5:15 PM CDT 01/13/2020 7:55 PM CDT us Victoriano Reid MD URINE ORDERABLES Final Result [facility] #[address] [place] [address] documented in this encounter Visit Diagnoses Diagnosis Urinary tract infection, site not specified documented in this encounter Additional Health Concerns Infection Onset Date Last Indicated Resolved Time 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 06/05/2019 04/15/2021 7:28 AM CDT Assessment Noted Time PHQ-9 Depression Total Score: 0 10/24/19 20 11:16 AM RECORD KEEPER documented as of this encounter Care Teams Bicycle Assembler Relationship Specialty Start Date End Date Victoriano Reid MD PCP - General Family Medicine 06/19/19 06/29/24 Elva Olivares DO 2 [facility]. [address] [place] [address] PCP - General Family Medicine 07/01/24 Viktoriya Arias, JAVA SOFTWARE ENGINEER [place] Physician Aide 10/24/19 01/20/20 Malissa Joe, RN [place] Nurse Physician Aide 12/03/23 12/03/23 Malissa Joe, RN [place] Nurse Physician Aide 12/05/23 12/05/23 [place], JAVA SOFTWARE ENGINEER [place] Lawn Care Specialist Physician Aide 11/03/24 Cabrera Yadav MD #2 [facility] [address] [place] [address] Consulting Physician Urology 11/07/24 documented as of this encounter
--- OUTSIDE RECORDS SUMMARY | 2024-12-04 18:06 | XMS_ITS | Encounter Summary ---
Author Organization [facility] Address [address] [place] [address] Phone Care Team Providers Care Metal Pattern Maker Name Role Phone Victoriano Reid MD Primary Care Provider [phone] Malissa Joe RN Unavailable Unavailable Malissa Joe RN Unavailable Unavailable Elva Olivares DO Primary Care Provider [phone] [place] DIRECTOR OF MARKETING AND PROMOTIONS Unavailable Unaabdirizaki Cabrera Dodge MD Unavailable [phone] Encounter Details Date Type Department Care Team (Late st Contact Info) Description 06/28/2022 Lab Requisition [facility] Laboratory Services [address] [place] [phone] Rafi Yun MD #1 [place] [address] Painful micturition, unspecified Social History Tobacco Use Types Packs/Day [...] 10:30 AM CDT Procedure Visit [facility] UROLOGY #2 [place] [address] Cabrera Yadav MD #2 [facility] [address] [place] [address] 01/09/2025 1:00 PM CDT Office Visit [facility] Medical Group - Family Medicine - [place] #2 [place] [address] Elva Olivares, DO 2 [facility]. [address] [place] [address] documented as of this encounter Procedures Procedure Name Priority Date/Time Associated Diagnosis Comments URINALYSIS REFLEX IF INDICATED BY ABNORMAL RESULTS Routine 06/28/2022 10:45 AM CDT Painful micturition, unspecified CULTURE, URINE Routine 06/28/2022 10:45 AM CDT Painful micturition, unspecified documented in this encounter Results * CULTURE, URINE (06/28/2022 10:45 AM CDT) CULTURE RESULTS MIXED GROWTH OF 3 OR MORE ORGANISMS, PROBABLE COLLECTION CONTAMINATION, SUGGEST REPEAT URINE CULTURE. 06/29/2022 8:16 PM CDT [facility]rine Non-Phlebotomy Collection / Unknown 06/28/2022 10:45 AM CDT 06/28/2022 12:42 PM CDT us Rafi Yun MD MICROBIOLOGY - GENERAL ORDERABL ES Final Result [facility] [address] [place] [address], [place] * (ABNORMAL) URINALYSIS REFLEX IF INDICATED BY ABNORMAL RESULTS (06/28/2022 10:45 AM CDT) SPECIFIC GRAVITY 1.020 1.003 - 1.030 06/28/2022 1:04 PM CDT [facility] URINE PH 6.0 5.0 - 9.0 06/28/2022 1:04 PM CDT [facility] WBC ESTERASE 500 /uL(A) Negative 06/28/2022 1:04 PM CDT [facility] NITRITE Positive(A) Negative 06/28/2022 1:04 PM CDT [facility] PROTEIN, RANDOM URINE 100 mg/dL(A) Negative 06/28/2022 1:04 PM CDT [facility] URINE GLUCOSE, QUAL Negative Negative 06/28/2022 1:04 PM CDT [facility] URINE KETONES Negative Negative 06/28/2022 1:04 PM CDT [facility] UROBILINOGEN Normal Normal mg/dL 06/28/2022 1:04 PM CDT [facility] URINE BLOOD 250 /uL(A) Negative josefa/ul 06/28/2022 1:04 PM CDT [facility] URINALYSIS COLOR Yellow 06/28/20 1:04 PM CDT [facility] URINALYSIS CLARITY Very Cloudy 06/28/2022 1:04 PM CDT [facility] WBC (Urine) Packed(A) Negative, 0-5 /hpf 06/28/2022 1:04 PM CDT [facility] URINE RBC'S Packed(A) Negative, 0-2 /hpf 06/28/2022 1:04 PM CDT [facility] EPITHELIAL CELLS Negative /lpf 06/28/20 22 1:04 PM CDT [facility] BACTERIA, URINE Few(A) Negative /hpf 06/28/2022 1:04 PM CDT [facility] Urine Non-Phlebotomy Collection / Unknown 06/28/2022 10:45 AM CDT 06/28/2022 12:42 PM CDT us Rafi Yun MD URINE ORDERABLES Final Result [facility] #1 [facility] [place] [address] documented in this encounter Visit Diagnoses Diagnosis Painful micturition, unspecified documented in this encounter Additional Health Concerns Assessment Noted Time PHQ-9 Depression Total Score: 0 08/15/20 10:00 AM CDT documented as of this encounter Care Teams Metal Pattern Maker Relationship Specialty Start Date End Date Victoriano Reid MD PCP - General Family Medicine 06/19/19 06/29/24 Elva Olivares DO 2 [facility] [address] [place] [address] PCP - General Family Medicine 07/01/24 Malissa Joe, RN [place] Nurse Magneto Electrician 12/03/23 12/03/23 Malissa Joe RN [place] Nurse Magneto Electrician 12/05/23 12/05/23 [place], DIRECTOR OF MARKETING AND PROMOTIONS [place] Radio Operator Ground Magneto Electrician 11/03/24 Cabrera Yadav MD #2 [facility] [address] [place] [address] Consulting Physician Urology 11/07/24 documented as of this encounter
--- OUTSIDE RECORDS SUMMARY | 2024-12-04 18:06 | XMS_ITS | Encounter Summary ---
Author Organization [facility] Address [address] [place] [address] Phone Care Team Providers Care Substation Superintendent Name Role Phone Victoriano Reid MD Primary Care Provider [phone] Malissa Joe RN Unavailable Unavailable Malissa Joe RN Unavailable Unavailable Elva Olivares DO Primary Care Provider [phone] H[place] [facility] Unavailable Cabrera Smallwood MD Unavailable [phone] Reason for Visit * Reason Comments Medication Refill Encounter Details Date Type Department Care Team (Late st Contact Info) Description 12/22/2020 Refill [facility] - Family Medicine [facility] #2 [place] [phone] Victoriano Reid MD #1 [place] [address] Medication Refill Social History Tobacco Use Types [...] Telephone Encounter - Camilla Hauser RN - 12/22/2020 4:17 PM CST Per nursing clinical judgement, provider to review and approve the medication(s) order(s) if appropriate. Requested Prescriptions Pending Prescriptions Disp Refills potassium chloride (MICRO-K) 10 MEQ Capsule CR [Pharmacy Med Name: POTASSIUM CL 10MEQ ER CAPSULES] 60 Capsule Sig: TAKE 1 CAPSULE BY MOUTH TWICE DAILY Endocrinology: Minerals - Potassium Supplementation Passed - 12/22/2020 10:06 AM Passed - Valid encounter within last 12 months Past Office Visits Recent Outpatient Visits 4 months ago Acute cystitis with hematuria [facility] - Victoriano Beck MD 11 months ago Paralysis of both lower limbs (HCC) [facility] - Victoriano Beck MD 1 year ago Uncontrolled type 2 diabetes mellitus with hyperglycemia (HCC) [facility] Victoriano Toledo MD 1 year ago Spinal cord compression due to malignant neoplasm metastatic to spine ([facility]) [facility] - Victoriano Beck MD 1 year ago Annual visit for general adult medical examination with abnormal findings [facility] Victoriano Toledo MD Upcoming Appointments Future Appointments Tomorrow Lorraine Russell, PT [facility] Tomorrow Naa Rios RN [facility] In 6 days Sharonda Carrion PTA [facility] 1 week Naa Rios RN [facility] Sharonda Carrion PTA [facility] 2 weeks Sharonda Carrion PTA [facility] 3 weeks Naa Rios [facility] 3 weeks Sharonda Carrion PTA [facility] LICENSE EXAMINER - Recent and Past Visits Recent Visits Date Type Provider Dept 08/06/20 Telemedicine Victoriano Reid MD [facility] 01/22/20 Telemedicine Victoriano Reid MD [facility] 10/24/19 Office Visit Victoriano Reid MD [facility] Showing recent visits within past 460 days with a meds authorizing provider and meeting all other requirements Future Appointments No visits were found meeting these conditions. Showing future appointments within next 90 days with a meds authorizing provider and meeting all other requirements DESK SPECIALIST documented in this encounter Plan of Treatment Upcoming Encounters Date Type Department Care Team (Late st Contact Info) Description 01/02/2025 10:30 AM CDT Procedure Visit [facility] UROLOGY #2 [facility] [address] Cabrera Yadav MD [address] [place] [address] 01/09/2025 1:00 PM CDT Office Visit [facility] - Family Medicine - [place] #2 [facility] [place] [address] Elva Olivares DO 2 [facility] [address] [place] [address] documented as of this encounter Visit Diagnoses Not on filedocumented in this encounter Additional Health Concerns Infection Onset Date Last Indicated Resolved Time 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 06/05/2019 04/15/2021 7:28 AM CDT Assessment Noted Time PHQ-9 Depression Total Score: 0 10/24/19 20 11:16 AM HELPDESK SPECIALIST documented as of this encounter Care Teams Substation Superintendent Relationship Specialty Start Date End Date Victoriano Reid MD PCP - General Family Medicine 06/19/19 06/29/24 Elva Olivares DO 2 [facility] [address] [place] [address] PCP - General Family Medicine 07/01/24 Malissa Joe, RN [place] Nurse End Touching Machine Operator 12/03/23 12/03/23 Malissa Joe, RN [place] Nurse End Touching Machine Operator 12/05/23 12/05/23 [place], [facility] Sludge Filtration Operator End Touching Machine Operator 11/03/24 Cabrera Yadav MD #[address] [address] Consulting Physician Urology 11/07/24 documented as of this encounter
--- OUTSIDE RECORDS SUMMARY | 2024-12-04 18:06 | XMS_ITS | Encounter Summary ---
Author Organization [facility] Address [address] [place] [address] Phone Care Team Providers Care Sales Force Developer Name Role Phone Victoriano Reid MD Primary Care Provider [phone] Malissa Joe RN Unavailable Unavailable Malissa Joe RN Unavailable Unavailable Elva Olivares DO Primary Care Provider [phone] [place] ROTATING EQUIPMENT ENGINEER Unavailable Unaabdirizaki Cabrera Dodge MD Unavailable [phone] Encounter Details Date Type Department Care Team (Late st Contact Info) Description 02/12/[address] [facility] Laboratory Services [address] [place] [address] Vishal Vee MD [address] [place] [address] Urinary tract infection, site not specified; Thrombocytopenia, unspecified (HCC) Social History Tobacco Use Types Packs/Day [...] or suspected to have Coronavirus / COVID-19? Yes 02/14/2021 4:07 PM CDT documented as of this encounter Plan of Treatment Upcoming Encounters Date Type Department Care Team (Late st Contact Info) Description 01/02/2025 10:30 AM CDT Procedure Visit [facility] UROLOGY #2 [place] [address] Cabrera Yadav MD #2 [facility] [address] [place] [address] 01/09/2025 1:00 PM CDT Office Visit [facility] - [place] #[address] [place] [address] Elva Olivares, DO 2 [facility]. [address] [place] [address] documented as of this encounter Procedures Procedure Name Priority Date/Time Associated Diagnosis Comments CBC WITH AUTO DIFFERENTIAL Routine 02/12/2021 10:40 AM CDT Urinary tract infection, site not specified Thrombocytopenia, unspecified (HCC) COMPLETE BLOOD COUNT (CBC) WITH DIFF Routine 02/12/2021 10:40 AM CDT Urinary tract infection, site not specified Thrombocytopenia, unspecified (HCC) documented in this encounter Results * (ABNORMAL) CBC WITH AUTO DIFFERENTIAL (02/12/2021 10:40 AM CDT) WBC 7.85 4.00 - 12.00 10(3)/mcL 02/12/2021 12:08 PM CDT [facility] RBC 3.62(L) 3.80 - 5.30 10(6)/mcL 02/12/2021 12:08 PM CDT [facility] HEMOGLOBIN (HGB) 11.4(L) 12.0 - 15.8 g/dL 02/12/2021 12:08 PM CDT [facility] HEMATOCRIT (HCT) 34.6(L) 36.0 - 47.0 % 02/12/2021 12:08 PM CDT [facility] MCV 95.6 82.0 - 96.0 fL 02/12/2021 12:08 PM CDT [facility] MCH 31.5 26.0 - 34.0 pg 02/12/2021 12:08 PM CDT [facility] MCHC 32.9 31.0 - 36.0 g/dL 02/12/2021 12:08 PM CDT [facility] PLATELET COUNT 151 140 - 440 10(3)/mcL 02/12/2021 12:08 PM CDT [facility] Comment:No clot in tube, no clumps on smear RDW 14.7 11.8 - 15.5 % 02/12/2021 12:08 PM CDT [facility] MPV 12.2 9.7 - 12.4 fL 02/12/2021 12:08 PM CDT [facility] NEUTROPHILS 63.7 47.0 - 73.0 % 02/12/2021 12:08 PM CDT [facility] LYMPHOCYTES 24.1 18.0 - 42.0 % 02/12/2021 12:08 PM CDT [facility] MONOCYTES 9.2 4.0 - 12.0 % 02/12/2021 12:08 PM CDT [facility] EOSINOPHILS 2.5 0.0 - 5.0 % 02/12/2021 12:08 PM CDT [facility] BASOPHILS 0.5 0.0 - 1.0 % 02/12/2021 12:08 PM CDT [facility] ABSOLUTE NEUTROPHILS 5.00 1.60 - 7.70 10(3)/mcL 02/12/2021 12:08 PM CDT [facility] ABSOLUTE LYMPHOCYTES 1.89 1.30 - 3.20 10(3)/mcL 02/12/2021 12:08 PM CDT [facility] ABSOLUTE MONOCYTES 0.72 0.20 - 1.00 10(3)/mcL 02/12/2021 12:08 PM CDT [facility] ABSOLUTE EOSINOPHIL 0.20 0.00 - 0.40 10(3)/mcL 02/12/2021 12:08 PM CDT [facility] ABSOLUTE BASOPHILS 0.04 0.00 - 0.10 10(3)/[facility] 02/12/2021 12:08 PM CDT [facility] NRBC PER 100 WBC 0 02/13/20 12:08 PM CDT [facility] RESULTS ARE CONSISTENT WITH PERIPHERAL SMEAR REVIEW Yes 02/12/2021 12:08 PM CDT [facility] Blood Venipuncture / Unknown 02/12/2021 10:40 AM CDT 02/12/2021 11:30 AM CDT Vishal Vee MD HEMATOLOGY ORDERABLES Luz mercedes Result [facility] [address] [place] [address] documented in this encounter Visit Diagnoses Diagnosis Urinary tract infection, site not specified Thrombocytopenia, unspecified (HCC) Thrombocytopenia, unspecified documented in this encounter Additional Health Concerns Infection Onset Date Last Indicated Resolved Time 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 06/05/2019 04/15/2021 7:28 AM CDT Assessment Noted Time PHQ-9 Depression Total Score: 0 10/24/19 20 11:16 AM BRANCH ACCOUNT EXECUTIVE documented as of this encounter Care Teams Sales Force Developer Relationship Specialty Start Date End Date Victoriano Reid MD PCP - General Family Medicine 06/19/19 06/29/24 Elva Olivares DO 2 [facility] [address] [address] PCP - General Family Medicine 07/01/24 Malissa Joe, RN [place] Nurse Burlap Bag Sewer 12/03/23 12/03/23 Malissa Joe, RN [place] Nurse Burlap Bag Sewer 12/05/23 12/05/23 [place], [facility] Phonograph Cartridge Assembler Burlap Bag Sewer 11/03/24 Cabrera Yadav MD #[address] [address] Consulting Physician Urology 11/07/24 documented as of this encounter
--- OUTSIDE RECORDS SUMMARY | 2024-12-04 18:06 | XMS_ITS | Encounter Summary ---
Author Organization [facility] Address [address] [place] [address] Phone Care Team Providers Care Specimen Collector Name Role Phone Victoriano Reid MD Primary Care Provider [phone] Malissa Joe RN Unavailable Unavailable Malissa Joe RN Unavailable Unavailable Elva Olivares DO Primary Care Provider [phone] [place] NOTEREADER Unavailable Unaabdirizaki Cabrera Dodge MD Unavailable [phone] Encounter Details Date Type Department Care Team (Late st Contact Info) Description 02/07/2021 Lab Requisition [facility] Laboratory Services 1 [place] [id number] Victoriano Reid MD #1 [place] [address] Neuromuscular dysfunction of bladder, unspecified Social History [...] have Coronavirus / COVID-19? No / Unsure 02/10/2021 12:39 PM CDT documented as of this encounter Plan of Treatment Upcoming Encounters Date Type Department Care Team (Late st Contact Info) Description 01/02/2025 10:30 AM CDT Procedure Visit [facility] UROLOGY #[address] [place] [phone] Cabrera Yadav MD #2 [facility] [address] [place] [address] 01/09/2025 1:00 PM CDT Office Visit [facility] - Family Medicine [facility] #2 [place] [address] Elva Olivares, DO 2 [facility]. [address] [place] [address] documented as of this encounter Procedures Procedure Name Priority Date/Time Associated Diagnosis Comments URINALYSIS REFLEX IF INDICATED BY ABNORMAL RESULTS Routine 02/07/2021 3:15 PM CDT Neuromuscular dysfunction of bladder, unspecified CULTURE, URINE Routine 02/07/2021 3:15 PM CDT Neuromuscular dysfunction of bladder, unspecified documented in this encounter Results * CULTURE, URINE (02/07/2021 3:15 PM CDT) CULTURE RESULTS ESCHERICHIA COLI 02/10/2021 9:24 AM CDT [facility] Comment:PRESUMPTIVE IDENTIFI CATION CULTURE RESULTS ALSO MIXED GROWTH OF DISTAL URETHRA CONTAMINANTS. 02/10/2021 9:24 AM CDT [facility] Urine Non-Phlebotomy Collection / Unknown 02/07/2021 3:15 PM CDT 02/07/2021 5:09 PM CDT Narrative Organism Antibiotic Method Susceptibility Escherichia coli Ampicillin [facility] V[facility] IIB >=32 mcg/ml: Resistant Escherichia coli Ampicillin/sulbactam [facility] IIB 16 mcg/ml: Intermediate Escherichia coli Cefazolin [facility] IIB <=4 [...] MICROBIOLOGY - GENERAL ORDERABLE S Final Result [facility] [address] [place] [address], * (ABNORMAL) URINALYSIS REFLEX IF INDICATED BY ABNORMAL RESULTS (02/07/2021 3:15 PM CDT) SPECIFIC GRAVITY 1.010 1.003 - 1.030 02/07/2021 5:23 PM CDT [facility] URINE PH 7.0 5.0 - 9.0 02/07/2021 5:23 PM CDT [facility] WBC ESTERASE 500 /uL(A) Negative 02/07/2021 5:23 PM CDT [facility] NITRITE Positive(A) Negative 02/07/2021 5:23 PM CDT [facility] PROTEIN, RANDOM URINE 100 mg/dL(A) Negative 02/07/2021 5:23 PM CDT [facility] URINE GLUCOSE, QUAL Negative Negative 02/07/2021 5:23 PM CDT [facility] URINE KETONES Negative Negative 02/07/2021 5:23 PM CDT [facility] UROBILINOGEN Normal Normal mg/dL 02/07/2021 5:23 PM CDT [facility] URINE BILIRUBIN Negative Negative 5:23 PM CDT [facility] URINE BLOOD 250 /uL(A) Negative josefa/ul 02/07/2021 5:23 PM CDT [facility] URINALYSIS COLOR Yellow 02/08/20 5:23 PM CDT [facility] URINALYSIS CLARITY Very Cloudy 02/07/2021 5:23 PM CDT [facility] WBC (Urine) 51-150(A) Negative, 0-5 /hpf 02/07/2021 5:23 PM CDT [facility] URINE RBC'S 21-50(A) Negative, 0-2 /hpf 02/07/2021 5:23 PM CDT [facility] EPITHELIAL CELLS Moderate amount /lpf 02/07/2021 5:23 PM CDT [facility] BACTERIA, URINE Packed(A) Negative /hpf 02/07/2021 5:23 PM CDT [facility] Urine Non-Phlebotomy Collection / Unknown 02/07/2021 3:15 PM CDT 02/07/2021 5:09 PM CDT us Victoriano Reid MD URINE ORDERABLES Final Result [facility] #[address] [place] [address] documented in this encounter Visit Diagnoses Diagnosis Neuromuscular dysfunction of bladder, unspecified documented in this encounter Additional Health Concerns Infection Onset Date Last Indicated Resolved Time 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 [address] [place] [address] PCP - General Family Medicine 07/01/24 Malissa Joe, RN [place] Nurse Interlocking Installer 12/03/23 12/03/23 Malissa Joe, RN [place] Nurse Interlocking Installer 12/05/23 12/05/23 [place], NOTEREADER [place] Office Helper Clerical Interlocking Installer 11/03/24 Cabrera Yadav MD #2 [facility] [address] [place] [address] Consulting Physician Urology 11/07/24 documented as of this encounter
--- OUTSIDE RECORDS SUMMARY | 2024-12-04 18:06 | XMS_ITS | Encounter Summary ---
Author Organization [facility] Address [address] [place] [address] Phone Care Team Providers Care Car Loader Name Role Phone Victoriano Reid MD Primary Care Provider [phone] Viktoriya Arias BAG END SEWER Unavailable Unavailab Malissa Polo RN Unavailable Unavailable Malissa Joe RN Unavailable Unavailable Elva Olivares DO Primary Care Provider [phone] [place] BAG END SEWER Unavailable Papoi Cabrera Dodge MD Unavailable [phone] Encounter Details Date Type Department Care Team (Late st Contact Info) Description 12/12/2019 [facility] [address] [place] [phone] Victoriano Reid MD #1 [place] [address] Urinary tract infection, site not specified Social [...] 10:30 AM CDT Procedure Visit [facility] #2 [facility] [address] Cabrera Yadav MD #2 [facility] [address] [place] [address] 01/09/2025 1:00 PM CDT Office Visit [facility] - Family Medicine - [place] [address] [place] [address] Elva Olivares, DO 2 [facility]. [address] [place] [address] documented as of this encounter Procedures Procedure Name Priority Date/Time Associated Diagnosis Comments URINALYSIS REFLEX IF INDICATED BY ABNORMAL RESULTS Routine 12/12/2019 3:02 PM PLUMBING ENGINEERING DRAFTSPERSON Urinary tract infection, site not specified CULTURE, URINE Routine 12/12/2019 3:02 PM PLUMBING ENGINEERING DRAFTSPERSON Urinary tract infection, site not specified documented in this encounter Results * CULTURE, URINE (12/12/2019 3:02 PM PLUMBING ENGINEERING DRAFTSPERSON) CULTURE RESULTS KLEBSIELLA PNEUMONIAE 12/16/2019 9:13 AM PLUMBING ENGINEERING DRAFTSPERSON [facility] Comment:STRAIN 1 CULTURE RESULTS KLEBSIELLA PNEUMONIAE 12/16/2019 9:13 AM PLUMBING ENGINEERING DRAFTSPERSON [facility] Comment:STRAIN 2 Urine specimen (specimen) Non-Phlebotomy Collection / Unknown 12/12/2019 3:02 PM PLUMBING ENGINEERING DRAFTSPERSON 12/12/2019 4:37 PM PLUMBING ENGINEERING DRAFTSPERSON Narrative Organism Antibiotic Method Susceptibility Klebsiella pneumoniae Ampicillin [facility] IIB >=32 mcg/ml: Resistant Klebsiella pneumoniae Ampicillin/sulbactam [facility] IIB 8 mcg/ml: Susceptible Klebsiella pneumoniae Cefazolin [facility] IIB <=4 [...] Klebsiella pneumoniae Piperacillin/Tazobactam [facility] VIT EK IIB 8 mcg/ml: Susceptible Klebsiella pneumoniae Tobramycin [facility] IIB <=1 mcg/ml: Susceptible Klebsiella pneumoniae Trimeth/Sulfamethoxazole [facility] RANDY IIB <=20 mcg/ml: Susceptible Klebsiella pneumoniae Ampicillin [facility] IIB >=32 mcg/ml: Resistant Klebsiella pneumoniae Ampicillin/sulbactam [facility] IIB 8 mcg/ml: Susceptible Klebsiella pneumoniae Cefazolin [facility] IIB <=4 [...] Klebsiella pneumoniae Piperacillin/Tazobactam [facility] VIT EK IIB <=4 mcg/ml: Susceptible Klebsiella pneumoniae Tobramycin [facility] IIB <=1 mcg/ml: Susceptible Klebsiella pneumoniae Trimeth/Sulfamethoxazole [facility] RANDY IIB <=20 mcg/ml: Susceptible us Victoriano Reid MD MICROBIOLOGY - GENERAL ORDERABLE S Final Result [facility] [address] [place] [address], * (ABNORMAL) URINALYSIS REFLEX IF INDICATED BY ABNORMAL RESULTS (12/12/2019 3:02 PM PLUMBING ENGINEERING DRAFTSPERSON) SPECIFIC GRAVITY 1.005 1.003 - 1.030 12/12/2019 5:12 PM PLUMBING ENGINEERING DRAFTSPERSON [facility] URINE PH 7.0 5.0 - 9.0 12/12/2019 5:12 PM PLUMBING ENGINEERING DRAFTSPERSON [facility] WBC ESTERASE 500 /uL(A) Negative 12/12/2019 5:12 PM [facility] NITRITE Positive(A) Negative 12/12/2019 5:12 PM [facility] PROTEIN, RANDOM URINE Negative Negative 12/12/2019 5:12 PM PLUMBING ENGINEERING DRAFTSPERSON [facility] URINE GLUCOSE, QUAL Negative Negative 12/12/2019 5:12 PM PLUMBING ENGINEERING DRAFTSPERSON [facility] URINE KETONES Negative Negative 12/12/2019 5:12 PM [facility] UROBILINOGEN Normal Normal mg/dL 12/12/2019 5:12 PM [facility] URINE BILIRUBIN Negative Negative 0 5:12 PM [facility] URINE BLOOD 10 /uL(A) Negative josefa/ul 12/12/2019 5:12 PM [facility] URINALYSIS COLOR Yellow 12/12/19 20 5:12 PM [facility] URINALYSIS CLARITY Very Cloudy 12/12/2019 5:12 PM [facility] WBC (Urine) Packed(A) Negative, 0-5 /hpf 12/12/2019 5:12 PM [facility] URINE RBC'S 3-5(A) Negative, 0-2 /hpf 12/12/2019 5:12 PM [facility] EPITHELIAL CELLS Large amount squamous /lpf 12/12/2019 5:12 PM [facility] BACTERIA, URINE Packed(A) Negative /hpf 12/12/2019 5:12 PM [facility] URINE MUCOUS Packed 12/12/2019 5:12 PM [facility] Urine specimen (specimen) Non-Phlebotomy Collection / Unknown 12/12/2019 3:02 PM PLUMBING ENGINEERING DRAFTSPERSON 12/12/2019 4:37 PM [facility] us Victoriano Reid MD URINE ORDERABLES Final Result [facility] #[address] [place] [address] documented in this encounter Visit Diagnoses Diagnosis Urinary tract infection, site not specified documented in this encounter Additional Health Concerns Infection Onset Date Last Indicated Resolved Time 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 06/05/2019 04/15/2021 7:28 AM CDT Assessment Noted Time PHQ-9 Depression Total Score: 0 10/24/19 11:16 AM PLUMBING ENGINEERING DRAFTSPERSON documented as of this encounter Care Teams Car Loader Relationship Specialty Start Date End Date Victoriano Reid MD PCP - General Family Medicine 06/19/19 06/29/24 Elva Olivares DO [address] [facility] [address] [place] [address] PCP - General Family Medicine 07/01/24 Viktoriya Arias LSW [place] Nut Feeder 10/24/19 01/20/20 Malissa Joe, RN [place] Nurse Nut Feeder 12/03/23 12/03/23 Malissa Joe, RN [place] Nurse Nut Feeder 12/05/23 12/05/23 [place] BAG END SEWER [place] Glove Finisher Nut Feeder 11/03/24 Cabrera Yadav MD [facility] [address] [place] [address] Consulting Physician Urology 11/07/24 documented as of this encounter
[2024-12-04 19:30] VITALS: BP 128/64; PULSE 84; RESP 16; O2SAT 98
== END 2024-12-04 19:52 ==
PROVIDERS: Emergency Provider Emergency Medicine; PCP Student in an Organized Health Care Education/Training Program
DX: R33.9 Retention of urine, unspecified (principal); T83.098A Other mechanical complication of other urinary catheter, initial encounter; I10 Essential (primary) hypertension; E11.9 Type 2 diabetes mellitus without complications; Z87.891 Personal history of nicotine dependence
CPT/HCPCS: 51702; 99283

== ENCOUNTER 2024-12-15 11:41 | Emergency (ER) | payer MEDICARE, MEDICAID, SELFPAY ==
[2024-12-15] VITALS (9 sets, daily range): BP systolic 126–161; BP diastolic 79–85; PULSE 71–84; RESP 10–20; TEMP 36.5; O2SAT 98–100
--- NOTE | 2024-12-15 12:49 | ED.GENADULT ---
HPI - General Adult General Chief complaint: Urogenital-Female Stated complaint: blocked catheter Time Seen by Provider: 12/15/24 11:53 History of Present Illness HPI narrative: Patient is a 69-year-old female with history of suprapubic catheter due to paraplegia who presents ER with poor drainage. Has lower abdominal discomfort due to this. Tried flushing the catheter home which did not work. No fevers or chills or sweats. No additional complaints. Related Data Allergies Allergy/AdvReac Type Severity Reaction Status Date / Time codeine Allergy Unknown rash Verified 12/04/24 17:55 Review of Systems Constitutional: Constitutional: Reports no additional constitutional complaints Gastrointestinal: Gastrointestinal: Reports no additional gastrointestinal complaints Genitourinary: Genitourinary: Reports no additional female genitourinary complaints PMFSH Past Medical History Medical History (Updated 12/15/24 @ 12:54 by Jonh Jackson MD) Suprapubic catheter Reis catheter in place Pneumonia HTN (hypertension) Diabetes mellitus Surgical History Surgical History Hx of appendectomy Social History Social History Smoking status: Former smoker Exam Narrative: GENERAL: Well-appearing, well-nourished, and in no acute distress. HEAD: Normocephalic, atraumatic. ENT: Mucous membranes moist. CHEST: Clear to auscultation. No respiratory distress. HEART: Regular rate and rhythm. Normal peripheral pulses. ABDOMEN: Soft, mild suprapubic tenderness, nondistended, suprapubic catheter not draining noted. SKIN: Warm, dry, no rash. NEURO: Alert and oriented x3. PSYCH: Normal mood and affect. Course Course Emergency Course: I have exchanged the suprapubic catheter and there was appropriate drainage. Urinalysis appears similar to earlier this month when there is no growth. Will not discharge on oral antibiotics. Vital Signs Vital signs: Vital Signs Temperature 97.7 F 12/15/24 11:39 Pulse Rate 77 12/15/24 11:39 Respiratory Rate 16 12/15/24 11:39 Blood Pressure 161/85 H 12/15/24 11:39 Pulse Oximetry 100 12/15/24 11:39 Oxygen Delivery Room Air 12/15/24 11:39 Temperature 97.7 F 12/15/24 11:39 Pulse Rate 84 12/15/24 11:51 Respiratory Rate 10 L 12/15/24 11:51 Blood Pressure 161/85 H 12/15/24 11:51 Pulse Oximetry 100 12/15/24 11:39 Oxygen Delivery Room Air 12/15/24 11:39 Medical Decision Making Vital Signs Vital Signs: Vital Signs Temperature 97.7 F 12/15/24 11:39 Pulse Rate 77 12/15/24 11:39 Respiratory Rate 16 12/15/24 11:39 Blood Pressure 161/85 H 12/15/24 11:39 Pulse Oximetry 100 12/15/24 11:39 Oxygen Delivery Room Air 12/15/24 11:39 Temperature 97.7 F 12/15/24 11:39 Pulse Rate 84 12/15/24 11:51 Respiratory Rate 10 L 12/15/24 11:51 Blood Pressure 161/85 H 12/15/24 11:51 Pulse Oximetry 100 12/15/24 11:39 Oxygen Delivery Room Air 12/15/24 11:39 Lab Data Labs: Lab Results 12/15/24 Range/Units 12:40 Urine Color Yellow (Yellow) Urine Appearance Cloudy H (Clear) Urine pH 7.5 (5.0-9.0) Ur Specific [place] 1.005 (1.001-1.035) Urine Protein Negative (Negative) mg/dL Urine Glucose (UA) Negative (Negative) mg/dL Urine Ketones Negative (Negative) mg/dL Ur Blood (Man) 2+ H (Negative) Urine Nitrate Positive H (Negative) Urine Bilirubin Negative (Negative) Urine Urobilinogen 0.2 (<2.0) mg/dL Leukocyte Esterase Rfl 3+ H (Negative) EVETTE/UL Urine RBC 11-20 H (0-2) /hpf Urine WBC 21-50 H (0-3) /hpf Ur Squamous Epith Cells None seen (Few) /hpf Urine Bacteria 4+ H /hpf Urine Casts 0-2 Discharge Plan Discharge Clinical Impression: Suprapubic catheter dysfunction Patient Disposition: Home, Self-Care Condition: Stable Instructions: Reis Catheter Placement and Care (ED) Additional Instructions: Your Reis was replaced. Your last urine culture did not show any growth so will not start an antibiotic at this time. Follow-up with your primary care doctor. Patient Language: Lao Prescriptions: No Action sulfamethoxazole-trimethoprim [Bactrim DS] 800-160 mg tablet 1 tablet PO Q12H Qty: 14 0RF Follow-up/Referrals: Elise,Elva Cha DO [Primary Care Provider] - 1 Week
[2024-12-15 12:53] LABS: Add Urine Microscopic? YES; Appearance Urine Cloudy (Clear); Bacteria Urine 4+ /hpf; Bilirubin Urine Negative (Negative); Blood Urine 2+ (Negative); Color Urine Yellow (Yellow); Glucose Urine UA Negative (Negative); Ketones Urine Negative (Negative); Leukocyte Esterase Ur 3+ LEU/UL (Negative); Nitrate Urine Positive (Negative); Non Pathogenic Casts 0-2; Protein Urine Negative (Negative); Specific Grav Ur 1.005 (1.001-1.035); Squamous Epithelial Cell Urine None Seen /hpf (Few); Urobilinogen Urine 0.2 mg/dL (<2.0); WBC Urine 21-50 /hpf (0-3); pH Urine 7.5 (5.0-9.0)
== END 2024-12-15 14:52 | disposition home or self-care (01) ==
PROVIDERS: Emergency Provider Emergency Medicine; PCP Student in an Organized Health Care Education/Training Program
DX: T83.098A Other mechanical complication of other urinary catheter, initial encounter (principal); G82.20 Paraplegia, unspecified; I10 Essential (primary) hypertension; E11.9 Type 2 diabetes mellitus without complications
CPT/HCPCS: 81001; 87086; 99283

== ENCOUNTER 2025-01-16 18:23 | Emergency (ER) | payer MEDICARE, MEDICAID, SELFPAY ==
[2025-01-16 18:38] VITALS: BP 155/63; PULSE 68; RESP 18; TEMP 36.6; O2SAT 97
--- NOTE | 2025-01-16 18:50 | ED.GENADULT ---
HPI - General Adult General Chief complaint: Urogenital-Female Stated complaint: clogged cath Time Seen by Provider: 01/16/25 18:43 History of Present Illness HPI narrative: Patient is a 69-year-old female who presents ER with a clogged suprapubic catheter. Scheduled to have removed yesterday but her transportation cannot get her to her urologist's office. It began to not drain this morning and she could not flush it. No pain. No additional complaints. Related Data Allergies Allergy/AdvReac Type Severity Reaction Status Date / Time codeine Allergy Unknown rash Verified 12/04/24 17:55 Review of Systems Constitutional: Constitutional: Reports no additional constitutional complaints Respiratory: Respiratory: Reports no additional respiratory complaints Gastrointestinal: Gastrointestinal: Reports no additional gastrointestinal complaints PMFSH Past Medical History Medical History (Updated 01/16/25 @ 19:03 by Jonh Jackson MD) Suprapubic catheter Reis catheter in place Pneumonia HTN (hypertension) Diabetes mellitus Surgical History Surgical History (Updated 01/16/25 @ 19:03 by Jonh Jackson MD) History of back surgery Hx of appendectomy Social History Social History Smoking status: Former smoker Exam Narrative: GENERAL: Well-appearing, well-nourished, and in no acute distress. HEAD: Normocephalic, atraumatic. ABDOMEN: Soft, nontender, nondistended, normal appearing suprapubic site. EXTREMITIES: No deformity. Moves upper extremities without issue. No edema. SKIN: Warm, dry, no rash. NEURO: Alert and oriented x3. PSYCH: Normal mood and affect. Course Course Emergency Course: Suprapubic catheter changed. Appropriate for discharge. Vital Signs Vital signs: Vital Signs Temperature 97.9 F 01/16/25 18:38 Pulse Rate 68 01/16/25 18:38 Respiratory Rate 18 01/16/25 18:38 Blood Pressure 155/63 H 01/16/25 18:38 Pulse Oximetry 97 01/16/25 18:38 Oxygen Delivery Room Air 01/16/25 18:38 Temperature 97.9 F 01/16/25 18:38 Pulse Rate 68 01/16/25 18:38 Respiratory Rate 18 01/16/25 18:38 Blood Pressure 155/63 H 01/16/25 18:38 Pulse Oximetry 97 01/16/25 18:38 Oxygen Delivery Room Air 01/16/25 18:38 Procedures Other Procedure Procedure 1: Other Procedure: A suprapubic catheter change. Original catheter removed. A 16 Welsh catheter was then placed in the suprapubic position after cleansing the area with iodine. Successful placement. Balloon inflated with 10 cc saline. Medical Decision Making Vital Signs Vital Signs: Vital Signs Temperature 97.9 F 01/16/25 18:38 Pulse Rate 68 01/16/25 18:38 Respiratory Rate 18 01/16/25 18:38 Blood Pressure 155/63 H 01/16/25 18:38 Pulse Oximetry 97 01/16/25 18:38 Oxygen Delivery Room Air 01/16/25 18:38 Temperature 97.9 F 01/16/25 18:38 Pulse Rate 68 01/16/25 18:38 Respiratory Rate 18 01/16/25 18:38 Blood Pressure 155/63 H 01/16/25 18:38 Pulse Oximetry 97 01/16/25 18:38 Oxygen Delivery Room Air 01/16/25 18:38 Discharge Plan Discharge Clinical Impression: Complication of Reis catheter Patient Disposition: Home, Self-Care Condition: Stable Instructions: Reis Catheter Placement and Care (ED) Additional Instructions: Return the ER if you cannot get urine to drain from your catheter or you develop fever over 100.4? F. Patient Language: Pitcair[place] Islander Prescriptions: No Action sulfamethoxazole-trimethoprim [Bactrim DS] 800-160 mg tablet 1 tablet PO Q12H Qty: 14 0RF Follow-up/Referrals: Elise,Elva Cha DO [Primary Care Provider] - 1 Week
--- OUTSIDE RECORDS SUMMARY | 2025-01-16 18:57 | XMS_ITS | Encounter Summary ---
Author Organization [facility] Address [address] [place] [address] Phone Care Team Providers Care Washer Off Name Role Phone Victoriano Reid MD Primary Care Provider [phone] Elva Olivares DO Primary Care Provider [phone] [place] [facility] Unavailable Cabrera Smallwood MD Unavailable [phone] Reason for Visit * Reason Comments Medication Refill Encounter Details Date Type Department Care Team (Late Contact Info) Description 02/18/2024 Refill [facility] Medical Group - Family Medicine [facility] #2 [place] [address] Victoriano Reid MD #1 [place] [address] Medication Refill Social History Tobacco Use Types Packs/Day Years Used Date Smoking Tobacco: Every Day Cigarettes Smokeless Tobacco: Never Alcohol Use Standard Drinks/Week Comments Not Currently 0 (1 standard drink = 0.6 oz pur e alcohol) [facility] Utilities Answer Date Recorded In the past [...] often do you attend chur ch or sikhism services? Never 12/20/2023 Do you belong to any clubs o r organizations such as episcopal groups, unions, fraternal or athletic groups, or [...] place to sleep or slept in a usp (including now)? No 12/20/2023 Education Answer Date [...] Rogers 10/23/23 Telemedicine Miriam Prasad APRN, LORI [facility] 03/29/23 Office Visit Victoriano [facility] MD [facility] Showing recent visits within past 365 [...] Rogers 10/23/23 Telemedicine Miriam Prasad APRN, LORI [facility] 03/29/23 Office Visit Victoriano Reid MD [...] Rogers 10/23/23 Telemedicine Miriam Prasad APRN, LORI [facility] 03/29/23 Office Visit Victoriano Reid MD [facility] Showing recent visits within past 365 days and meeting all other requirements Future Appointments No visits were found meeting these conditions. Showing future appointments within next 90 days and meeting all other requirements documented in this encounter Plan of Treatment Upcoming Encounters Date Type Department Care Team (Latest Contact Info) Description 01/21/2025 10:30 AM CDT Clinical Support [facility] UROLOGY #2 [place] [address] Nurse, [place] Urology 02/02/2025 11:00 AM CDT Appointment [facility] [address] [facility] [place] [address] Cabrera Yadav MD #[address] [address] Discharge Disposition: Discharged to home or Selfcare 02/10/2025 3:00 PM CDT Appointment [facility] Mammography 1 [facility] [place] [address] Elva Olivares, DO 2 [facility] [address] [place] [address] Discharge Disposition: Discharged to home or Selfcare 02/10/2025 4:00 PM CDT [facility] 1 [facility] [place] [address] Elva Olivares, DO 2 [facility] [address] [place] [address] Discharge Disposition: Discharged to home or Selfcare 02/17/2025 1:40 PM CDT [facility] 1 [facility] [place] [address] Cabrera Yadav MD [address] [address] 02/17/2025 1:40 PM CDT - 02/17/2025 3:40 PM CDT Surgery [facility] Periop 1 [facility] [place] [address] Cabrera Yadav MD #[address] [address] CYSTOSCOPY AND LITHOLAPAXY, PATIENT WILL NEED A PAUL LIFT 03/02/2025 8:40 AM CDT Office Visit [facility] Medical Group - Family Medicine [facility] #2 [address] [address] Elva Olivares, DO 2 Magda [facility] [address] [place] [address] Scheduled Procedures Name Priority Associated Diagnoses Date/Ti me CYSTOSCOPY BLADDER STONE BLADDER STONES 02/17/2025 1:40 PM CDT documented as of this encounter Visit Diagnoses Diagnosis 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) Allergic rhinitis, unspecified seasonality, unspecified trigger Neurogenic bladder Neurogenic bladder, NOS documented in this encounter Additional Health Concerns Assessment Noted Time PHQ-9 Depression Total Score: 0 08/15/20 21 10:00 AM CDT documented as of this encounter Care Teams Washer Off Relationship Specialty Start Date End Date Victoriano Reid MD PCP - General Family Medicine 06/19/19 06/29/24 Elva Olivares DO 2 [facility] [address] [place] [address] PCP - General Family Medicine 07/01/24 [place], [facility] Scouring Machine Tender Thread Reeler 11/03/24 Cabrera Yadav MD #2 [facility] [address] [place] [address] Consulting Physician Urology 11/07/24 documented as of this encounter
--- OUTSIDE RECORDS SUMMARY | 2025-01-16 18:57 | XMS_ITS | Encounter Summary ---
Author Organization [facility] Address [address] [place] [address] Phone Care Team Providers Care Coal Shoveler Name Role Phone Victoriano Reid MD Primary Care Provider [phone] Malissa Joe RN Unavailable Unavailable Malissa Joe RN Unavailable Unavailable Elva Olivares DO Primary Care Provider [phone] H[place] [employer] Unavailable Cabrera Smallwood MD Unavailable [phone] Reason for Visit * Reason Comments Medication Refill Encounter Details Date Type Department Care Team (Late st Contact Info) Description 11/04/2022 Refill [facility] - Family Medicine [facility] #2 [place] [address] Victoriano Reid MD #1 [place] [address] Medication Refill Social History Tobacco Use Types [...] Dept 09/19/22 Office Visit Victoriano Reid MD [facility] 01/05/22 Office Visit Nia Abbott, SUZY [facility] Showing recent visits within past 365 days and meeting all other requirements Future Appointments No visits were found meeting these conditions. Showing future appointments within next 90 days and meeting all other requirements ACT OFFICER documented in this encounter Plan of Treatment Upcoming Encounters Date Type Department Care Team (Latest Contact Info) Description 01/21/2025 10:30 AM CDT Clinical Support [facility] UROLOGY #[address] [place] [address] Nurse [place] [facility] 02/02/2025 11:00 AM CDT [facility] [address] [place] [address] Cabrera Yadav MD #2 [facility] [address] [address] Discharge Disposition: Discharged to home or Selfcare 02/10/2025 3:00 PM CDT [facility] [address] [place] [address] Elva Olivares, DO 2 [facility] [address] [place] [address] Discharge Disposition: Discharged to home or Selfcare 02/10/2025 4:00 PM CDT [facility] 1 [facility] [place] [address] Elva Olivares, DO 2 [facility] [address] [place] [address] Discharge Disposition: Discharged to home or Selfcare 02/17/2025 1:40 PM CDT Hospital Encounter [facility] Periop 1 [facility] [place] [address] Cabrera Yadav MD #[address] [address] 02/17/2025 1:40 PM CDT - 02/17/2025 3:[address] [facility] Periop 1 [facility] [place] [address] Cabrera Yadav MD #[address] [place] [address] CYSTOSCOPY AND LITHOLAPAXY, PATIENT WILL NEED A PAUL LIFT 03/02/2025 8:40 AM CDT Office Visit [facility] Medical Group - Family Medicine [facility] #2 [facility] [facility] [place] [place] [address] Elva Olivares, DO 2 [facility] [address] [place] [address] Scheduled Procedures Name Priority Associated Diagnoses Date/Ti md CYSTOSCOPY BLADDER STONE BLADDER STONES 02/17/2025 1:40 PM CDT documented as of this encounter Visit Diagnoses Diagnosis Neurogenic bladder Neurogenic bladder, NOS 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 [address] [place] [address] PCP - General Family Medicine 07/01/24 Malissa Joe, RN [place] Nurse Night Stocker 12/03/23 12/03/23 Malissa Joe, RN [place] Nurse Night Stocker 12/05/23 12/05/23 [place], INSPECTOR MULTIFOCAL LENS [place] Laundry Tech Night Stocker 11/03/24 Cabrera Yadav MD #2 [facility] [address] [place] [address] Consulting Physician Urology 11/07/24 documented as of this encounter
--- OUTSIDE RECORDS SUMMARY | 2025-01-16 18:57 | XMS_ITS | Encounter Summary ---
Author Organization [facility] Address [address] [place] [address] Phone Care Team Providers Care Recovery Assistant Name Role Phone Victoriano Reid MD Primary Care Provider [phone] Elva Olivares DO Primary Care Provider [phone] [place] [facility] Unavailable Cabrera Smallwood MD Unavailable [phone] Reason for Visit * Reason Comments Medication Refill Encounter Details Date Type Department Care Team (Late Contact Info) Description 02/22/2024 Refill [facility] Medical Group - Family Medicine [facility] #2 [place] [address] Victoriano Reid MD #1 [place] [address] Medication Refill Social History Tobacco Use Types Packs/Day Years Used Date Smoking Tobacco: Every Day Cigarettes Smokeless Tobacco: Never Alcohol Use Standard Drinks/Week Comments Not Currently 0 (1 standard drink = 0.6 oz pur e alcohol) [facility] Utilities Answer Date Recorded In the [...] often do you attend chur ch or islam services? Never 12/20/2023 Do you belong to any clubs o r organizations such as lutheran groups, unions, fraternal or athletic groups, or [...] Score - Questions 1-9 0 12/14 [facility] - [...] place to sleep or slept in a snf (including now)? No 12/20/2023 Education Answer Date [...] Pending Prescriptions Disp Refills ergocalciferol (VITAMIN D) 03249 UNIT Capsule [Pharmacy Med Name: VITAMIN D2 [...] MD [facility] 10/23/23 Telemedicine Miriam Prasad, CHEMICAL TESTER, LORI [facility] 03/29/23 Office Visit Victoriano Reid MD [facility] Showing recent visits within [...] Description 01/21/2025 10:30 AM CDT Clinical Support [facility] UROLOGY #2 [place] [address] Nurse, [place] [facility] 02/02/2025 11:00 AM CDT [facility] [address] [place] [address] Cabrera Yadav MD #2 [facility] [address] [place] [address] Discharge Disposition: Discharged to home or Selfcare 02/10/2025 3:00 PM CDT [facility] 1 [place] [address] Elva Olivares, DO 2 [facility] [address] [place] [address] Discharge Disposition: Discharged to home or Selfcare 02/10/2025 4:00 PM CDT [facility] Ul[facility] 1 [place] [address] Elva Olivares, DO 2 [facility] [address] [place] [address] Discharge Disposition: Discharged to home or Selfcare 02/17/2025 1:40 PM CDT Hospital Encounter [facility] Periop 1 [place] [address] Cabrera Yadav MD #2 [facility] [address] [place] [address] 02/17/2025 1:40 PM CDT - 02/17/2025 3:40 PM CDT [facility] 1 [facility] [place] [address] Cabrera Yadav MD #[address] [address] CYSTOSCOPY AND LITHOLAPAXY, PATIENT WILL NEED A PAUL LIFT 03/02/2025 8:40 AM CDT Office Visit [facility] Medical Group - Family [facility] #2 [place] [address] Elva Olivares DO 2 [facility] [address] [address] Scheduled Procedures Name Priority Associated Diagnoses Date/Ti me CYSTOSCOPY BLADDER STONE BLADDER STONES 02/17/2025 1:40 PM CDT documented as of this encounter Visit Diagnoses Diagnosis Vitamin D deficiency Unspecified vitamin D deficiency documented in this encounter Additional Health Concerns Assessment Noted Time PHQ-9 Depression Total Score: 0 08/15/20 21 10:00 AM CDT documented as of this encounter Care Teams Recovery Assistant Relationship Specialty Start Date End Date Victoriano Reid MD PCP - General Family Medicine 06/19/19 06/29/24 Elva Olivares DO 2 [facility] [address] [place] [address] PCP - General Family Medicine 07/01/24 [place], [facility] Member Of The Legislative Council Reporter Anchor 11/03/24 Cabrera Yadav MD #2 NETTIE MEADOWS, [address] [address] Consulting Physician Urology 11/07/24 documented as of this encounter
--- OUTSIDE RECORDS SUMMARY | 2025-01-16 18:57 | XMS_ITS | Encounter Summary ---
Author Organization [facility] Address [address] [place] [address] Phone Care Team Providers Care Automotive Parts Specialist Name Role Phone Victoriano Reid MD Primary Care Provider [phone] Elva Olivares DO Primary Care Provider [phone] [place] [facility] Unavailable Cabrera Smallwood MD Unavailable [phone] Reason for Visit * Reason Comments Medication Refill Encounter Details Date Type Department Care Team (Late Contact Info) Description 01/19/2024 Refill [facility] Medical Group - Family Medicine [facility] #2 [place] [address] Victoriano Reid MD #1 [place] [address] Medication Refill Social History Tobacco Use Types Packs/Day Years Used Date Smoking Tobacco: Every Day Cigarettes Smokeless Tobacco: Never Alcohol Use Standard Drinks/Week Comments Not Currently 0 (1 standard drink = 0.6 oz pur e alcohol) [facility] Utilities Answer Date Recorded In the [...] often do you attend chur ch or buddhism services? Never 12/20/2023 Do you belong to any clubs o r organizations such as buddhism groups, unions, fraternal or athletic groups, or [...] Total Score - Questions 1-9 0 12/14 [facility] ional Health - Occupational [...] MD [facility] 10/23/23 Telemedicine Miriam Prasad CIGAR WRAPPER TENDER AUTOMATIC, PRIVATE WEALTH ADVISOR [facility] [...] Description 01/21/2025 10:30 AM CDT Clinical Support [facility] UROLOGY #2 [place] [address] Nurse, [place] [facility] 02/02/2025 11:00 AM CDT [facility] [address] [place] [address] Cabrera Yadav MD #2 [facility] [address] [place] [address] Discharge Disposition: Discharged to home or Selfcare 02/10/2025 3:00 PM CDT [facility] 1 [place] [address] Elva Olivares, DO 2 [facility] [address] [place] [address] Discharge Disposition: Discharged to home or Selfcare 02/10/2025 4:00 PM CDT Appointment [facility] Ultrasound 1 [place] [address] Elva Olivares, DO 2 [facility] [address] [place] [address] Discharge Disposition: Discharged to home or Selfcare 02/17/2025 1:40 PM CDT Hospital Encounter [facility] Periop 1 [place] [address] Cabrera Yadav MD #2 [facility] [address] [place] [address] 02/17/2025 1:40 PM CDT - 02/17/2025 3:40 PM CDT [facility] 1 [facility] [place] [address] Cabrera Yadav MD #2 [facility] [address] [place] [address] CYSTOSCOPY AND LITHOLAPAXY, PATIENT WILL NEED A PAUL LIFT 03/02/2025 8:40 AM CDT Office Visit [facility] Medical Group - Family Medicine [facility] #2 [place] [address] Elva Olivares DO 2 [facility] [address] [place] [address] Scheduled Procedures Name Priority Associated Diagnoses Date/Ti nj CYSTOSCOPY BLADDER STONE BLADDER STONES 02/17/2025 1:40 PM CDT documented as of this encounter Visit Diagnoses Not on filedocumented in this encounter Additional Health Concerns Assessment Noted Time PHQ-9 Depression Total Score: 0 08/15/20 21 10:00 AM CDT documented as of this encounter Care Teams Automotive Parts Specialist Relationship Specialty Start Date End Date Victoriano Reid MD PCP - General Family Medicine 06/19/19 06/29/24 Elva Olivares DO 2 [facility] [address] [place] [address] PCP - General Family Medicine 07/01/24 [place], HOOKER LASTER [place] Manager Professional Development Head Of Human Resources 11/03/24 Cabrera Yadav MD #2 [facility] [address] [place] [address] Consulting Physician Urology 11/07/24 documented as of this encounter
--- OUTSIDE RECORDS SUMMARY | 2025-01-16 18:57 | XMS_ITS | Encounter Summary ---
Author Organization [facility] Address [address] [facility] [place] [address] Phone Care Team Providers Care Professor Of Counseling Name Role Phone Elva Olivares Becky GARCIA Primary Care Provider [phone] [place] SENIOR PARTNER Unavailable Cabrera Smallwood MD Unavailable [phone] Reason for Visit * Reason Onset Date Comments Need Order 07/08/2024 Encounter Details Date Type Department Care Team (Late st Contact Info) Description 07/08/[address] [facility] [address] [place] [address] Adwoa Hannah, [place] Need Order Social History Tobacco Use Types Packs/Day Years Used Date Smoking Tobacco: Every Day Cigarettes 2 15 Smokeless Tobacco: Never Alcohol Use Standard Drinks/Week Comments Not Currently 0 (1 standard drink = 0.6 oz pur e alcohol) [facility] Utilities Answer Date Recorded In the past 12 months has [employer] electric, gas, oil, or water company threatened [...] week 04/15/2024 How often do you attend [facility] or buddhism services? Never 04/15/2024 Do you belong to [...] Score - Questions 1-9 0 12/14 [facility] - Occupational Stress Questionnaire Answer Date [...] health care facility (including now)? No 12/20/2023 Housing Stability Vital [...] were you homeless or living in a [place] health care facility (including now)? No 04/15/2024 Education Answer Date [...] Description 01/21/2025 10:30 AM CDT Clinical Support [facility] #2 [place] [address] NurseKen Urology 02/02/2025 11:00 AM CDT Appointment [facility] [address] 1 [facility] [place] [address] Cabrera Yadav MD [address] [address] Discharge Disposition: Discharged to home or Selfcare 02/10/2025 3:00 PM CDT [facility] M[facility] 1 [place] [address] Elva Olivares, DO 2 [facility] [address] [place] [address] Discharge Disposition: Discharged to home or Selfcare 02/10/2025 4:00 PM CDT [facility]ment [facility] Ultrasound 1 [place] [address] Elva Olivares, DO 2 [facility] [address] [address] Discharge Disposition: Discharged to home or Selfcare 02/17/2025 1:40 PM CDT Hospital En[facility] Periop 1 [facility] [place] [address] Cabrera Yadav MD #[address] [address] 02/17/2025 1:40 PM CDT - 02/17/2025 3:40 PM CDT Surgery [facility] Periop 1 [facility] [place] [address] Cabrera Yadav MD #[address] [address] CYSTOSCOPY AND LITHOLAPAXY, PATIENT WILL NEED A PAUL LIFT 03/02/2025 8:40 AM CDT Office [facility] [address] [place] [address] Elva Olivares DO 2 [facility] [address] [place] [address] Scheduled Procedures Name Priority Associated Diagnoses Date/Ti me CYSTOSCOPY BLADDER STONE BLADDER STONES 02/17/2025 1:40 PM CDT documented as of this encounter Visit Diagnoses Not on filedocumented in this encounter Additional Health Concerns Assessment Noted Time PHQ-9 Depression Total Score: 0 08/15/20 21 10:00 AM CDT documented as of this encounter Care Teams Professor Of Counseling Relationship Specialty Start Date End Date Elva Olivares DO 2 Magda MCMILLAN [facility] [address] [place] [address] PCP - General Family Medicine 07/01/24 [place], [facility] Special Delivery Clerk Acetylene Plant Operator 11/03/24 Cabrera Yadav MD #[address] [address] Consulting Physician Urology 11/07/24 documented as of this encounter
--- OUTSIDE RECORDS SUMMARY | 2025-01-16 18:57 | XMS_ITS | Encounter Summary ---
Author Organization [facility] Address [address] [place] [address] Phone Care Team Providers Care Senior Materials Planner Name Role Phone Victoriano Reid MD Primary Care Provider [phone] Elva Olivares DO Primary Care Provider [phone] [place] [facility] Unavailable Cabrera Smallwood MD Unavailable [phone] Reason for Visit * Reason Comments Medication Refill Encounter Details Date Type Department Care Team (Late Contact Info) Description 04/18/2024 Refill [facility] Medical Group - Family Medicine [facility] #2 [place] [address] Victoriano Reid MD #1 [place] [address] Medication Refill Social History Tobacco Use Types Packs/Day Years Used Date Smoking Tobacco: Every Day Cigarettes 2 15 Smokeless Tobacco: Never Alcohol Use Standard Drinks/Week Comments Not Currently 0 (1 standard drink = 0.6 oz pur e alcohol) [facility] Utilities Answer Date Recorded In the past 12 months has [employer] electric, gas, oil, or water company threatened [...] often do you attend chur ch or episcopalian services? Never 04/15/2024 Do you belong to any clubs o r organizations such as advent groups, unions, fraternal or athletic groups, or [...] Total Score - Questions 1-9 0 12/14 [facility] Occupat ional Health - Occupational Stress [...] in a prison (including now)? No 12/20/2023 Housing Stability Vital Sign Answer Saleem e Recorded In the last 12 months, was t here a time when you were not able to pay the mortgage or rent on time? No 04/15/2024 Number of Times Moved in the Last Year Not on fi le 04/15/2024 At any time in the past 12 m [facility], were you homeless or living in a prison (including now)? No 04/15/2024 Education Answer Date [...] Support [facility] #[address] [place] [address] NurseKen Urology 02/02/2025 11:00 AM CDT [facility] [address] [place] [address] Cabrera Yadav MD #[address] [address] Discharge Disposition: Discharged to home or Selfcare 02/10/2025 3:00 PM CDT [facility] 1 [facility] [place] [address] Elva Olivares, DO 2 [facility] MCMILL[facility] [address] [place] [address] Discharge Disposition: Discharged to home or Selfcare 02/10/2025 4:00 PM CDT Appointment [facility] Ultrasound 1 [facility] [place] [address] Elva Olivares, DO 2 [facility] M[address] [address] Discharge Disposition: Discharged to home or Selfcare 02/17/2025 1:40 PM CDT Hospital Encounter [facility] Periop [address] [place] [address] Cabrera Yadav MD #[address] [address] 02/17/2025 1:40 PM CDT - 02/17/2025 3:40 PM CDT [facility] Periop [address] [place] [address] Cabrera Yadav MD #[address] [address] CYSTOSCOPY AND LITHOLAPAXY, PATIENT WILL NEED A PAUL LIFT 03/02/2025 8:40 AM CDT Office Visit [facility] Medical Group - Family [facility] #[address] [place] [address] Elva Olivares DO 2 [facility] [address] [place] [address] Scheduled Procedures Name Priority Associated Diagnoses Date/Ti ri CYSTOSCOPY BLADDER STONE BLADDER STONES 02/17/2025 1:40 PM CDT documented as of this encounter Visit Diagnoses Not on filedocumented in this encounter Additional Health Concerns Assessment Noted Time PHQ-9 Depression Total Score: 0 08/15/20 21 10:00 AM CDT documented as of this encounter Care Teams Senior Materials Planner Relationship Specialty Start Date End Date Victoriano Reid MD PCP - General Family Medicine 06/19/19 06/29/24 Elva Olivares DO 2 [facility] MCMILLAN [facility] [address] [place] [address] PCP - General Family Medicine 07/01/24 [place], [facility] Mobile Equipment Servicer Binder Fixer 11/03/24 Cabrera Yadav MD #[address] [address] Consulting Physician Urology 11/07/24 documented as of this encounter
--- OUTSIDE RECORDS SUMMARY | 2025-01-16 18:57 | XMS_ITS | Encounter Summary ---
Author Organization [facility] Address [address] [facility] [place] [address] Phone Care Team Providers Care Laundry Equipment Operator Name Role Phone Victoriano Reid MD Primary Care Provider [phone] Elva Olivares DO Primary Care Provider [phone] [place] PHERESIS SPECIALIST Unavailable Unavai Cabrera Dodge MD Unavailable [phone] Encounter Details Date Type Department Care Team (Late st Contact Info) Description 01/23/2024 Lab Requisition [facility] Laboratory Services 1 [place] [address] Victoriano Reid MD #1 [place] [address] Urinary tract infection, site not specified Social History Tobacco Use Types Packs/Day Years Used Date Smoking Tobacco: Every Day Cigarettes Smokeless Tobacco: Never Alcohol Use Standard Drinks/Week Comments Not Currently 0 (1 standard drink = 0.6 oz pur e alcohol) [facility] Utilities Answer Date Recorded In the [...] often do you attend chur ch or voodoo services? Never 12/20/2023 Do you belong to any clubs o r organizations such as zoroastrian groups, unions, fraternal or athletic groups, or [...] Total Score - Questions 1-9 0 12/14 [facility] of Occupat ional Health - [...] a long term (including now)? No 12/20/2023 Education Answer Date [...] Description 01/21/2025 10:30 AM CDT Clinical Support [facility] #[address] [place] [address] Nurse, Ken Urology 02/02/2025 11:00 AM CDT Appointment [facility] 1 [facility] [place] [address] Cabrera Yadav MD #2 SHANELLE MCMILLAN [facility] [address] [place] [address] Discharge Disposition: Discharged to home or Selfcare 02/10/2025 3:00 PM CDT Appointment [facility] Mammography 1 [facility] [place] [address] Elva Olivares, DO 2 [facility] BENOIT MCMILLAN [facility]. [address] [place] [address] Discharge Disposition: Discharged to home or Selfcare 02/10/2025 4:00 PM CDT [facility] [address] [place] [address] Elva Olivares, DO 2 [facility] BENOIT MCMILLAN [facility] [address] [place] [address] Discharge Disposition: Discharged to home or Selfcare 02/17/2025 1:40 PM CDT Hospital [facility] 1 [facility] [place] [address] Cabrera Yadav MD #[address] [address] 02/17/2025 1:40 PM CDT - 02/17/2025 3:40 PM CDT [facility] 1 [facility] [place] [address] Cabrera Yadav MD #[address] [address] CYSTOSCOPY AND LITHOLAPAXY, PATIENT WILL NEED A PAUL LIFT 03/02/2025 8:40 AM CDT Office Visit [facility] Medical Group - Family Medicine [facility] #[address] [address] Elva Olivares, DO 2 [facility] [address] [place] [address] Scheduled Procedures Name Priority Associated Diagnoses Date/Ti me CYSTOSCOPY BLADDER STONE BLADDER STONES 02/17/2025 1:40 PM CDT documented as of this encounter Procedures Procedure Name Priority Date/Time Associated Diagnosis Comments URINALYSIS REFLEX IF INDICATED BY ABNORMAL RESULTS Routine 01/23/2024 2:45 PM CDT Urinary tract infection, site not specified CULTURE, URINE Routine 01/23/2024 2:45 PM CDT Urinary tract infection, site not specified documented in this encounter Results * CULTURE, URINE (01/23/2024 2:45 PM CDT) Pathologist [facility] CULTURE RESULTS ENTEROCOCCUS FAECALIS 01/25/2024 9:08 PM CDT [facility] Urine Non-Phlebotomy Collection / Unknown 01/23/2024 2:45 PM CDT 01/23/2024 3:40 PM CDT Narrative [facility] - 01/25/2024 9:08 PM CDT Susceptibility not performed on enterococcus species. Due to high achievable concentrations in urine, Ampicillin is the drug of choice for treating infections limited to the lower urinary tract (regardless of Vancomycin susceptibility). For allergic patients, Nitrofurantoin or a quinolone may be substituted. us Victoriano Reid MD MICROBIOLOGY - GENERAL ORDERABLE S Final Result [facility] [address] [place] [address], * (ABNORMAL) URINALYSIS REFLEX IF INDICATED BY ABNORMAL RESULTS (01/23/2024 2:45 PM CDT) Pathologist [facility] SPECIFIC GRAVITY 1.010 1.003 - 1.030 01/23/2024 3:56 PM CDT [facility] URINE PH 7.0 5.0 - 9.0 01/23/2024 3:56 PM CDT [facility] WBC ESTERASE 500 /uL(A) Negative 01/23/2024 3:56 PM CDT [facility] NITRITE Positive(A) Negative 01/23/2024 3:56 PM CDT [facility] PROTEIN, RANDOM URINE 30 mg/dL(A) Negative 01/23/2024 3:56 PM CDT [facility] URINE GLUCOSE, QUAL Negative Negative 01/23/2024 3:56 PM CDT [facility] URINE KETONES Negative Negative 01/23/2024 3:56 PM CDT [facility] UROBILIN[facility] Normal Normal mg/dL 01/23/2024 3:56 PM CDT [facility] URINE BLOOD 250 /uL(A) Negative josefa/ul 01/23/2024 3:56 PM CDT [facility] URINALYSIS COLOR Yellow 01/23/20 24 3:56 PM CDT [facility] URINALYSIS CLARITY Slightly Cloudy 01/23/2024 3:56 PM CDT [facility] WBC (Urine) 11-20(A) Negative, 0-5 /hpf 01/23/2024 3:56 PM CDT [facility] URINE RBC'S 51-150(A) Negative, 0-2 /hpf 01/23/2024 3:56 PM CDT [facility] EPITHELIAL CELLS Small amount /lpf 2023 3:56 PM CDT [facility] BACTERIA, URINE Few(A) Negative /hpf 01/23/2024 3:56 PM CDT [facility] Urine Non-Phlebotomy Collection / Unknown 01/23/2024 2:45 PM CDT 01/23/2024 3:40 PM CDT us Victoriano Reid MD URINE ORDERABLES Final Result [facility] #[address] [place] [address] documented in this encounter Visit Diagnoses Diagnosis Urinary tract infection, site not specified documented in this encounter Additional Health Concerns Assessment Noted Time PHQ-9 Depression Total Score: 0 08/15/20 21 10:00 AM CDT documented as of this encounter Care Teams Laundry Equipment Operator Relationship Specialty Start Date End Date Victoriano Reid MD PCP - General Family Medicine 06/19/19 06/29/24 Elva Olivares DO 2 [facility] BENOIT MCMILLAN [facility] [address] [place] [address] PCP - General Family Medicine 07/01/24 [place], [facility] Press Tender [employer] Hazardous Materials Waste Technician 11/03/24 Cabrera Yadav MD #2 SHANELLE MCMILLAN [facility] [address] [place] [address] Consulting Physician Urology 11/07/24 documented as of this encounter
--- OUTSIDE RECORDS SUMMARY | 2025-01-16 18:57 | XMS_ITS | Encounter Summary ---
Author Organization [facility] Address [address] [place] [address] Phone Care Team Providers Care Cogeneration Technician Name Role Phone Victoriano Reid MD Primary Care Provider [phone] Malissa Joe RN Unavailable Unavailable Malissa Joe RN Unavailable Unavailable Elva Olivares DO Primary Care Provider [phone] [place] MANAGEMENT SPECIALIST Unavailable Cabrera Smallwood MD Unavailable [phone] Reason for Visit * Reason Comments Medication Refill Encounter Details Date Type Department Care Team (Late st Contact Info) Description 08/28/2022 Refill [facility] Medical Group - Family Medicine [facility] #[address] [place] [address] Victoriano Reid MD #1 [place] [address] Medication Refill Social History Tobacco Use Types [...] Yara Peacock RN - 08/28/2022 11:03 AM STUDY COORDINATOR Medication failed the protocol, provider to review [...] Dept 01/05/22 Office Visit Nia Abbott PAC [facility] Ken Showing recent visits within past 365 days and meeting all other requirements Future Appointments Date Type Provider Dept 08/29/22 Appointment Victoriano Reid MD [facility] Ken Showing future appointments within next 90 days and meeting all other requirements Y COORDINATOR documented in this encounter Plan of Treatment Upcoming Encounters Date Type Department Care Team (Latest Contact Info) Description 01/21/2025 10:30 AM CDT Clinical Support [facility]OLOGY #2 [place] [address] Nurse, Ken Urology 02/02/2025 11:00 AM CDT Appointment [facility] CT 1 [facility] T[facility] [place] [address] Cabrera Yadav MD #2 [facility] [address] Discharge Disposition: Discharged to home or Selfcare 02/10/2025 3:00 PM CDT Appointment [facility] Mammography [address] [place] [address] Elva Olivares, DO 2 [facility] BENOIT MCMILLAN [facility] [address] [place] [address] Discharge Disposition: Discharged to home or Selfcare 02/10/2025 4:00 PM CDT Appointment [facility] Ultrasound 1 [facility] [place] [address] Elva Olivares, DO 2 [facility] BENOIT [address] [address] Discharge Disposition: Discharged to home or Selfcare 02/17/2025 1:40 PM CDT [facility] [address] [place] [address] Cabrera Yadav MD #2 SH[address] [address] 02/17/2025 1:40 PM CDT - 02/17/2025 3:40 PM CDT Surgery [facility] Periop 1 [facility] [place] [address] Cabrera Yadav MD #2 [address] [address] CYSTOSCOPY AND LITHOLAPAXY, PATIENT WILL NEED A PAUL LIFT 03/02/2025 8:40 AM CDT Office Visit [facility] Medical Group - Family Medicine [facility] #[address] [place] [address] Elva Olivares DO 2 Magda MCMILLAN [facility] [address] [place] [address] Scheduled Procedures Name Priority Associated Diagnoses Date/Ti ga CYSTOSCOPY BLADDER STONE BLADDER STONES 02/17/2025 1:40 PM CDT documented as of this encounter Visit Diagnoses Not on filedocumented in this encounter Additional Health Concerns Assessment Noted Time PHQ-9 Depression Total Score: 0 08/15/20 21 10:00 AM CDT documented as of this encounter Care Teams Cogeneration Technician Relationship Specialty Start Date End Date Victoriano Reid MD PCP - General Family Medicine 06/19/19 06/29/24 Elva Olivares DO 2 Magda MCMILLAN [facility] [address] [place] [address] PCP - General Family Medicine 07/01/24 Malissa Joe, RN [place] Nurse Final Inspector Motorcyles 12/03/23 12/03/23 Malissa Joe, RN [place] Nurse Final Inspector Motorcyles 12/05/23 12/05/23 [place], [facility] [place] Furnace Puncher Final Inspector Motorcyles 11/03/24 Cabrera Yadav MD #2 [address] [address] Consulting Physician Urology 11/07/24 documented as of this encounter
--- OUTSIDE RECORDS SUMMARY | 2025-01-16 18:57 | XMS_ITS | Encounter Summary ---
Author Organization [facility] Address [address] [place] [address] Phone Care Team Providers Care Physician Liaison Name Role Phone Victoriano Reid MD Primary Care Provider [phone] Elva Olivares DO Primary Care Provider [phone] [facility] Unavailable Cabrera Smallwood MD Unavailable [phone] Reason for Visit * Reason Comments Medication Refill Encounter Details Date Type Department Care Team (Late Contact Info) Description 03/19/2024 Refill [facility] Medical Group - Family Medicine [facility] #2 [place] [address] Victoriano Reid MD #1 [place] [address] Medication Refill Social History Tobacco Use Types Packs/Day Years Used Date Smoking Tobacco: Every Day Cigarettes Smokeless Tobacco: Never Alcohol Use Standard Drinks/Week Comments Not Currently 0 (1 standard drink = 0.6 oz pur e alcohol) [facility] Utilities Answer Date Recorded In the [...] often do you attend chur ch or taoism services? Never 12/20/2023 Do you belong to [...] Total Score - Questions 1-9 0 12/14 [facility] Occupat ional Health - [...] place to sleep or slept in a halfway (including now)? No 12/20/2023 Education Answer Date [...] Provider Dept 12/06/23 Telemedicine Victoriano Reid MD [facility] 10/23/23 Telemedicine Miriam Prasad APRN, LORI [...] Provider Dept 12/06/23 Telemedicine Victoriano Reid MD [facility] 10/23/23 Telemedicine Miriam Prasad APRN, LORI [facility] 03/29/23 Office Visit Victoriano Reid MD [facility] Showing recent visits within past 365 days and meeting all other requirements Future Appointments No visits were found meeting these conditions. Showing future appointments within next 90 days and meeting all other requirements documented in this encounter Plan of Treatment Upcoming Encounters Date Type Department Care Team (Latest Contact Info) Description 01/21/2025 10:30 AM CDT Clinical Support [facility] UROLOGY #2 [place] [address] Nurse, [place] [facility] 02/02/2025 11:00 AM CDT [facility] [address] [place] [address] Cabrera Yadav MD #2 [facility] [address] [place] [address] Discharge Disposition: Discharged to home or Selfcare 02/10/2025 3:00 PM CDT [facility] M[facility] 1 [place] [address] Elva Olivares, DO 2 [facility] [address] [place] [address] Discharge Disposition: Discharged to home or Selfcare 02/10/2025 4:00 PM CDT [facility] Ul[facility]ound [address] [place] [address] Elva Olivares, DO 2 [facility] [address] [address] Discharge Disposition: Discharged to home or Selfcare 02/17/2025 1:40 PM CDT Hospital [facility] 1 [facility] [place] [address] Cabrera Yadav MD [address] [address] 02/17/2025 1:40 PM CDT - 02/17/2025 3:40 PM CDT [facility] Per[facility] 1 [place] [address] Cabrera Yadav MD #2 [facility] [address] CYSTOSCOPY AND LITHOLAPAXY, PATIENT WILL NEED A PAUL LIFT 03/02/2025 8:40 AM CDT Office Visit [facility] Medical Group - Family Medicine [facility] #2 [place] [address] Elva Olivares, DO 2 [facility] [address] [address] Scheduled Procedures Name Priority Associated Diagnoses Date/Ti [...] documented as of this encounter Care Teams Physician Liaison Relationship Specialty Start Date End Date Victoriano Reid MD PCP - General Family Medicine 06/19/19 06/29/24 Elva Olivares DO 2 [facility] [address] [place] [address] PCP - General Family Medicine 07/01/24 [place], [facility] Instrument Technician Helper Critical Care Rn 11/03/24 Cabrera Yadav MD #2 [facility] [address] [place] [address] Consulting Physician Urology 11/07/24 documented as of this encounter
--- OUTSIDE RECORDS SUMMARY | 2025-01-16 18:57 | XMS_ITS | Encounter Summary ---
Author Organization [facility] Address [address] [place] [address] Phone Care Team Providers Care Junior Accounting Clerk Name Role Phone Victoriano Reid MD Primary Care Provider [phone] Elva Olivares DO Primary Care Provider [phone] [facility] Unavailable Cabrera Smallwood MD Unavailable [phone] Reason for Visit * Reason Comments Medication Refill Encounter Details Date Type Department Care Team (Late Contact Info) Description 02/23/2024 Refill [facility] Medical Group - Family Medicine [facility] #2 [place] [address] Victoriano Reid MD #1 [place] [address] Medication Refill Social History Tobacco Use Types Packs/Day Years Used Date Smoking Tobacco: Every Day Cigarettes Smokeless Tobacco: Never Alcohol Use Standard Drinks/Week Comments Not Currently 0 (1 standard drink = 0.6 oz pur e alcohol) [facility] Utilities Answer Date Recorded In the past [...] often do you attend chur ch or quaker services? Never 12/20/2023 Do you belong to any clubs o r organizations such as rastafarian groups, unions, fraternal or athletic groups, or [...] Total Score - Questions 1-9 0 12/14 [facility] of Occupat ional Health - Occupational Stress [...] place to sleep or slept in a skilled nursing (including now)? No 12/20/2023 Education Answer Date [...] Requested Prescriptions Pending Prescriptions Disp Refills nystatin 437449 UNIT/GM Powder [Pharmacy Med Name: NYSTOP TOP [...] Osm[facility] Rogers 10/23/23 Telemedicine Miriam Prasad APRN, CAPACITOR PACK PRESS OPERATOR [facility] 03/29/23 Office Visit Victoriano Reid MD [facility] Showing recent visits within past 365 days and meeting all other requirements Future Appointments No visits were found meeting these conditions. Showing future appointments within next 90 days and meeting all other requirements documented in this encounter Plan of Treatment Upcoming Encounters Date Type Department Care Team (Latest Contact Info) Description 01/21/2025 10:30 AM CDT Clinical Support [facility] UROLOGY #2 [place] [address] Nurse, Ken Urology 02/02/2025 11:00 AM CDT [facility] [address] [place] [address] Cabrera Yadav MD #2 [facility] [address] [place] [address] Discharge Disposition: Discharged to home or Selfcare 02/10/2025 3:00 PM CDT [facility] Mamm[facility] 1 [place] [address] Elva Olivares, DO 2 [facility] [address] [place] [address] Discharge Disposition: Discharged to home or Selfcare 02/10/2025 4:00 PM CDT Appointment [facility] Ultrasound 1 [place] [address] Elva Olivares, DO 2 [facility] [address] [place] [address] Discharge Disposition: Discharged to home or Selfcare 02/17/2025 1:40 PM CDT Hospital [facility] Periop 1 [place] [address] Cabrera Yadav MD #2 [facility] [address] [place] [address] 02/17/2025 1:40 PM CDT - 02/17/2025 3:40 PM CDT [facility] Periop [address] [place] [address] Cabrera Yadav MD #2 [place] [facility] [address] [place] [address] CYSTOSCOPY AND LITHOLAPAXY, PATIENT WILL NEED A PAUL LIFT 03/02/2025 8:40 AM CDT Office Visit [facility] Medical Group - Family Medicine [facility] #2 [place] [address] Elva Olivares DO 2 [address] ME[address] [facility] [address] [place] [address] Scheduled Procedures Name Priority Associated Diagnoses Date/Ti me CYSTOSCOPY BLADDER STONE BLADDER STONES 02/17/2025 1:40 PM CDT documented as of this encounter Visit Diagnoses Diagnosis Skin yeast infection Candidiasis of skin and nails documented in this encounter Additional Health Concerns Assessment Noted Time PHQ-9 Depression Total Score: 0 08/15/20 21 10:00 AM CDT documented as of this encounter Care Teams Junior Accounting Clerk Relationship Specialty Start Date End Date Victoriano Reid MD PCP - General Family Medicine 06/19/19 06/29/24 Elva Olivares DO 2 [facility] [facility] [facility] [address] [place] [address] PCP - General Family Medicine 07/01/24 [place], TAP BUILDER [place] End Trimmer Forensic Psychologist 11/03/24 Cabrera Yaadv MD #2 [place]AN[place] ME[address]OWS [facility] [address] [place] [address] Consulting Physician Urology 11/07/24 documented as of this encounter
--- OUTSIDE RECORDS SUMMARY | 2025-01-16 18:57 | XMS_ITS | Encounter Summary ---
Author Organization [facility] Address [address] [place] [address] Phone Care Team Providers Care Cabin Outfitter Name Role Phone Victoriano Reid MD Primary Care Provider Malissa Joe RN Unavailable Unavailable Malissa Joe RN Unavailable Unavailable Elva Olivares DO Primary Care Provider [phone] [place] SWEEPING COMPOUND BLENDER Unavailable Cabrera Smallwood MD Unavailable [phone] Reason for Visit * Reason Comments Medication Refill Encounter Details Date Type Department Care Team (Late st Contact Info) Description 09/06/2022 Refill [facility] Group - Family Medicine [facility] #2 [place] [address] Victoriano Redi MD #1 [place] [address] Medication Refill Social History Tobacco Use Types [...] 90 days and meeting all other requirements IC HEALTH TEACHER documented in this encounter Plan of Treatment Upcoming Encounters Date Type Department Care Team (Latest Contact Info) Description 01/21/2025 10:30 AM CDT Clinical Support [facility] UROLOGY #[address] [address] Nurse, Ken Urology 02/02/2025 11:00 AM CDT [facility] [address] [place] [address] Cabrera Yadav MD #2 [place] [facility] [address] [place] [address] Discharge Disposition: Discharged to home or Selfcare 02/10/2025 3:00 PM CDT [facility] 1 [facility] [place] [address] Elva Olivares, DO 2 [facility] [address] [place] [address] Discharge Disposition: Discharged to home or Selfcare 02/10/2025 4:00 PM CDT [facility] Ul[facility] [address] [place] [address] Elva Olivares, DO 2 [facility] [facility] [address] [place] [address] Discharge Disposition: Discharged to home or Selfcare 02/17/2025 1:40 PM CDT Hospital [facility] Per[facility] [address] [place] [address] Cabrera Yadav MD #2 SHANELLE MCMILLAN, [facility] [address] [place] [address] 02/17/2025 1:40 PM CDT - 02/17/2025 3:40 PM CDT [facility] Periop 1 [facility] [address] Cabrera Yadav MD #[address] [address] CYSTOSCOPY AND LITHOLAPAXY, PATIENT WILL NEED A PAUL LIFT 03/02/2025 8:40 AM CDT Office Visit [facility] - Family Medicine [facility] #2 [place] [address] Elva Olivares DO 2 [facility] [address] [place] [address] Scheduled Procedures Name Priority Associated Diagnoses Date/Ti me CYSTOSCOPY BLADDER STONE BLADDER STONES 02/17/2025 1:40 PM CDT documented as of this encounter Visit Diagnoses Diagnosis Muscle spasm Spasm of muscle Allergic rhinitis, unspecified seasonality, unspecified trigger documented in this encounter Additional Health Concerns Assessment Noted Time PHQ-9 Depression Total Score: 0 08/15/20 21 10:00 AM CDT documented as of this encounter Care Teams Cabin Outfitter Relationship Specialty Start Date End Date Victoriano Reid MD PCP - General Family Medicine 06/19/19 06/29/24 Elva Olivares DO 2 [facility] [address] [place] [address] PCP - General Family Medicine 07/01/24 Malissa Joe, RN [place] Nurse Spout Worker 12/03/23 12/03/23 Malissa Joe RN [place] Nurse Spout Worker 12/05/23 12/05/23 [place], SWEEPING COMPOUND BLENDER [place] Nail Artist Spout Worker 11/03/24 Cabrera Yadav MD #2 [facility] [address] [address] Consulting Physician Urology 11/07/24 documented as of this encounter
--- OUTSIDE RECORDS SUMMARY | 2025-01-16 18:57 | XMS_ITS | Encounter Summary ---
Author Organization [facility] Address [address] [place] [address] Phone Care Team Providers Care Education Administrative Assistant Name Role Phone Victoriano Reid MD Primary Care Provider [phone] Malissa Joe RN Unavailable Unavailable Malissa Joe RN Unavailable Unavailable Elva Olivares DO Primary Care Provider [phone] [place] HEALTH AND SOCIAL CARE TEACHER Unavailable Unaabdirizaki Cabrera Dodge MD Unavailable [phone] Encounter Details Date Type Department Care Team (Late st Contact Info) Description 04/25/2021 Lab Requisition [facility] Services 1 [place] [address] Victoriano Reid MD #1 [place] [address] Neuromuscular dysfunction of bladder, unspecified Social History [...] Description 01/21/2025 10:30 AM CDT Clinical Support [facility] UROLOGY #2 [place] [address] Nurse, Ken Urology 02/02/2025 11:00 AM CDT [facility]ointment [facility] [address] [place] [address] Cabrera Yadav MD #2 [facility] [address] [place] [address] Discharge Disposition: Discharged to home or Selfcare 02/10/2025 3:00 PM CDT Appointment [facility] Mammography 1 [place] [address] Elva Olivares, DO 2 [facility] [address] [place] [address] Discharge Disposition: Discharged to home or Selfcare 02/10/2025 4:00 PM CDT Appointment [facility] Ultrasound 1 [place] [address] Elva Olivares, DO 2 [facility] [address] [place] [address] Discharge Disposition: Discharged to home or Selfcare 02/17/2025 1:40 PM CDT Hospital Encounter [facility] Periop 1 [place] [address] Cabrera Yadav MD #2 [facility] [address] [place] [address] 02/17/2025 1:40 PM CDT - 02/17/2025 3:40 PM CDT Surgery [facility] Periop 1 [facility] [address] Cabrera Yadav MD #2 [facility] [address] [place] [address] CYSTOSCOPY AND LITHOLAPAXY, PATIENT WILL NEED A PAUL LIFT 03/02/2025 8:40 AM CDT Office Visit [facility] Medical Group - Family Medicine [facility] #2 [place] [address] Elva Olivares, DO 2 [facility] [address] [place] [address] Scheduled Procedures Name Priority Associated Diagnoses Date/Ti [...] S, COAGULASE NEGATIVE 05/01/2021 7:37 AM CDT [facility] Urine Non-Phlebotomy Collection / Unknown 04/25/2021 4:00 PM CDT 04/25/2021 5:20 PM CDT Narrative Organism Antibiotic Method Susceptibility Staphylococcus Coagulase Negative Gentamicin MCCLURE SINGH 22 mm: Susceptible Staphylococcus Coagulase Negative Nitrofurantoin MCCLURE SINGH 23 mm: Susceptible Staphylococcus Coagulase Negative Oxacillin KAMI SINGH Resistant Comment:VERIFIED BY KAMI SINGH Staphylococcus Coagulase Negative Tetracycline KAMI SINGH 29 mm: Susceptible Staphylococcus Coagulase Negative Trimeth/Sulfamethoxazole KAMI SINGH 22 mm: Susceptible Staphylococcus Coagulase Negative Vancomycin ETEST 0.25 mcg/ml: Susceptible us Victoriano Reid MD MICROBIOLOGY - GENERAL ORDERABLE S Final Result [facility] [address] [place] [address], * (ABNORMAL) URINALYSIS REFLEX IF INDICATED BY ABNORMAL RESULTS (04/25/2021 4:00 PM CDT) Pathologist [facility] SPECIFIC GRAVITY 1.010 1.003 - 1.030 04/25/2021 5:43 PM CDT [facility] URINE PH 8.0 5.0 - 9.0 04/25/2021 5:[address] WBC ESTERASE 500 /uL(A) Negative 04/25/2021 5:43 PM CDT [facility] NITRITE Positive(A) Negative 04/25/2021 5:[address] [facility] PROTEIN, RANDOM URINE 100 mg/dL(A) Negative 04/25/2021 5:43 PM CDT [facility] URINE GLUCOSE, QUAL Negative Negative 04/25/2021 5:[address] [facility] URINE KETONES Negative Negative 04/25/2021 5:43 PM CDT [facility] UROBILINOGEN Normal Normal mg/dL 04/25/2021 5:43 PM CDT [facility] URINE BILIRUBIN Negative Negative 5:43 PM CDT [facility] URINE BLOOD 250 /uL(A) Negative josefa/ul 04/25/2021 5:43 PM CDT [facility] URINALYSIS COLOR Dark Yellow 04/25/2021 5:43 PM CDT [facility] URINALYSIS CLARITY Very Cloudy 04/25/2021 5:43 PM CDT [facility] WBC (Urine) 6-10(A) Negative, 0-5 /hpf 04/25/2021 5:43 PM CDT [facility] URINE RBC'S 21-50(A) Negative, 0-2 /hpf 04/25/2021 5:43 PM CDT [facility] EPITHELIAL CELLS Occasional /lpf 04/25/2021 5:43 PM CDT [facility] BACTERIA, URINE Many(A) Negative /hpf 04/25/2021 5:43 PM CDT [facility] Urine Non-Phlebotomy Collection / Unknown 04/25/2021 4:00 PM CDT 04/25/2021 5:20 PM CDT us Victoriano Reid MD URINE ORDERABLES Final Result [facility] #1 [place] [address] documented in this encounter Visit Diagnoses Diagnosis Neuromuscular dysfunction of bladder, unspecified documented in this encounter Additional Health Concerns Assessment Noted Time PHQ-9 Depression Total Score: 0 10/24/19 20 11:16 AM MAGAZINE DESIGNER documented as of this encounter Care Teams Education Administrative Assistant Relationship Specialty Start Date End Date Victoriano Reid MD PCP - General Family Medicine 06/19/19 06/29/24 Elva Olivares DO [address] [address] PCP - General Family Medicine 07/01/24 Malissa Joe, RN [place] Nurse Workers Compensation Administrator 12/03/23 12/03/23 Malissa Joe RN [place] Nurse Workers Compensation Administrator 12/05/23 12/05/23 [place], HEALTH AND SOCIAL CARE TEACHER [place] Knitted Garment Finisher Workers Compensation Administrator 11/03/24 Cabrera Yadav MD #[address] [address] Consulting Physician Urology 11/07/24 documented as of this encounter
--- OUTSIDE RECORDS SUMMARY | 2025-01-16 18:57 | XMS_ITS | Encounter Summary ---
Author Organization [facility] Address [address] [facility] [place] [address] Phone Care Team Providers Care Bead Cutter Name Role Phone Victoriano Reid MD Primary Care Provider [phone] Elva Olivares DO Primary Care Provider [phone] [place] ELECTRIC GOLF CART REPAIRERS Unavailable Unavai Cabrera Dodge MD Unavailable [phone] Encounter Details Date Type Department Care Team (Late st Contact Info) Description 03/19/2024 Lab Requisition [facility] Laboratory Services 1 [place] [id number] Victoriano Reid MD #1 [place] [address] Personal history of urinary (tract) infections; Encounter for fitting and adjustment of urinary device Social History Tobacco Use Types Packs/Day Years Used Date Smoking Tobacco: Every Day Cigarettes Smokeless Tobacco: Never Alcohol Use Standard Drinks/Week Comments Not Currently 0 (1 standard drink = 0.6 oz pur e alcohol) [facility] Utilities Answer Date Recorded In the past 12 months has [employer] electric, gas, oil, or water company threatened [...] often do you attend chur ch or confucianist services? Never 12/20/2023 Do you belong to any clubs o r organizations such as protestant groups, unions, fraternal or athletic groups, or [...] Total Score - Questions 1-9 0 12/14 [facility] - Occupational [...] place to sleep or slept in a fci (including now)? No 12/20/2023 Education Answer Date [...] Description 01/21/2025 10:30 AM CDT Clinical Support [facility] UR[facility]Y #2 [place] [address] Nurse, Ken Urology 02/02/2025 11:00 AM CDT Appointment [facility] CT 1 [facility] [place] [address] Cabrera Yadav MD #2 SHANELLE MCMILLAN [address] [address] Discharge Disposition: Discharged to home or Selfcare 02/10/2025 3:00 PM CDT Appointment [facility] Mammography 1 [facility] [place] [address] Elva Olivares, DO 2 [address]ARY [address]RIES. [address] [place] [address] Discharge Disposition: Discharged to home or Selfcare 02/10/2025 4:00 PM CDT Appointment [facility] Ultrasound [address] [place] [address] Elva Olivares, DO 2 [facility] MCMILLAN [facility] [address] [place] [address] Discharge Disposition: Discharged to home or Selfcare 02/17/2025 1:40 PM CDT [facility] Per[facility] 1 [facility] [place] [address] Cabrera Yadav MD #2 [facility] [address] [place] [address] 02/17/2025 1:40 PM CDT - 02/17/2025 3:40 PM CDT [facility] Periop [address] [place] [address] Cabrera Yadav MD #[address] [address] CYSTOSCOPY AND LITHOLAPAXY, PATIENT WILL NEED A PAUL LIFT 03/02/2025 8:40 AM CDT Office Visit [facility] - Family Medicine [facility] #2 [facility] [facility] [place] [address] Elva Olivares, DO 2 [facility] MCMILLAN [facility] [address] [place] [address] Scheduled Procedures Name Priority Associated Diagnoses Date/Ti [...] KLEBSIELLA OXYTOCA 03/21/2024 3:42 PM CDT [facility] CULTURE RESULTS ESCHERICHIA COLI 03/21/2024 3:42 PM CDT [facility] Culture Non-Phlebotomy Collection / Unknown 03/19/2024 2:45 [...] II <=1 mcg/ml: Susceptible Escherichia coli Levofloxacin SF VITEK II <=0.12 mcg/ml: Susceptible Escherichia coli Meropenem SF VITEK II <=0.25 mcg/ml: Susceptible Escherichia coli Piperacillin/Tazobactam SF VITEK II <=4 mcg/ml: Susceptible Escherichia coli Tobramycin SF VITEK II <=1 mcg/ml: Susceptible Escherichia coli Trimeth/Sulfamethoxazole SF VITEK I I <=20 mcg/ml: Susceptible us Victoriano Reid MD MICROBIOLOGY - GENERAL ORDERABLE S Final Result [facility] [address] [place] [address], * (ABNORMAL) URINALYSIS REFLEX IF INDICATED BY ABNORMAL RESULTS (03/19/2024 2:45 PM CDT) SPECIFIC GRAVITY 1.010 1.003 - 1.030 03/19/2024 4:01 PM CDT [facility] URINE PH 7.0 5.0 - 9.0 03/19/2024 4:01 PM CDT [facility] WBC ESTERASE 500 /uL(A) Negative 03/19/2024 4:01 PM CDT [facility] NITRITE Positive(A) Negative 03/19/2024 4:01 PM CDT [facility] PROTEIN, RANDOM URINE 15 mg/dL(A) Negative 03/19/2024 4:01 PM CDT [facility] URINE GLUCOSE, QUAL Negative Negative 03/19/2024 4:01 PM CDT [facility] URINE KETONES Negative Negative 03/19/2024 4:01 PM CDT [facility] UROBILINOGEN Normal Normal mg/dL 03/19/2024 4:01 PM CDT [facility] URINE BLOOD 150 /uL(A) Negative josefa/ul 03/19/2024 4:01 PM CDT [facility] URINALYSIS COLOR Yellow 03/19/2024 4:01 PM CDT [facility] URINALYSIS CLARITY Slightly Cloudy 03/19/2024 4:01 PM CDT [facility] WBC (Urine) 21-50(A) Negative, 0-5 /hpf 03/19/2024 4:01 PM CDT [facility] URINE RBC'S 21-50(A) Negative, 0-2 /hpf 03/19/2024 4:01 PM CDT [facility] EPITHELIAL CELLS Occasional /lpf 03/19/2024 4:01 PM CDT [facility] BACTERIA, URINE Many(A) Negative /hpf 03/19/2024 4:01 PM CDT [facility] Urine Non-Phlebotomy Collection / Unknown 03/19/2024 2:45 PM CDT 03/19/2024 3:38 PM CDT Victoriano Reid MD URINE ORDERABLES Final Result [facility] LAB #1 [place] [address] documented in this encounter Visit Diagnoses Diagnosis Personal history of urinary (tract) infections Encounter for fitting and adjustment of urinary device documented in this encounter Additional Health Concerns Assessment Noted Time PHQ-9 Depression Total Score: 0 08/15/20 21 10:00 AM CDT documented as of this encounter Care Teams Bead Cutter Relationship Specialty Start Date End Date Victoriano Reid MD PCP - General Family Medicine 06/19/19 06/29/24 Elva Olivares DO 2 [facility] [address] [address] PCP - General Family Medicine 07/01/24 [place], E[employer]IC [employer]PA[employer] [place] Chainsaw Mechanic Orthopedic Physician Assistant 11/03/24 Cabrera Yadav MD #2 [facility] [address] [place] [address] Consulting Physician Urology 11/07/24 documented as of this encounter
--- OUTSIDE RECORDS SUMMARY | 2025-01-16 18:58 | XMS_ITS | Continuity of Care Document ---
Author Organization [facility] Address [address] [place] [address] [place] [address] Phone Care Team Providers Care Segregator Name Role Phone Jason Tejada MD Unavailable Unavailable Procedures Procedure Date Eye Exam & Treatment Advance Directives Directive Yes / No Effective Date File Name No Information Encounters Encounter Description Practice Location Reason(s) For Visit Diagnoses Date Provider Providers Copied on Encounter [facility], [id number] [place] [address] [address], [place], [place], [id number], [place] tel:[phone] [facility] No Information [address]. [address] [facility] [address], [place], [place], [id number], [place]. tel:[phone] Family History Family Member Type Diagnosis Age At Onset No Information Payers Payer name Insurance type Covered democrat ID Authoriza tion(s) Medicaid [facility] [id number] Social History Type Description Quantity Date Captured [...]
--- OUTSIDE RECORDS SUMMARY | 2025-01-16 18:58 | XMS_ITS | Encounter Summary ---
Author Organization [facility] Address [address] [place] [address] Phone Care Team Providers Care Commission For The Blind Director Name Role Phone Victoriano Reid MD Primary Care Provider [phone] Malissa Joe RN Unavailable Unavailable Malissa Joe RN Unavailable Unavailable Elva Olivares DO Primary Care Provider [phone] [place] DEICER INSPECTOR ELECTRIC Unavailable Cabrera Smallwood MD Unavailable [phone] Reason for Visit * Reason Comments Medication Refill Encounter Details Date Type Department Care Team (Late st Contact Info) Description 08/07/2021 Refill [facility] #2 [place] [address] Victoriano Reid MD #1 [place] [address] Medication Refill Social History Tobacco Use Types [...] Provider Dept 02/14/21 Telemedicine Victoriano Reid MD [facility] Ken Showing recent visits within past 365 days and meeting all other requirements Future Appointments Date Type Provider Dept 08/15/21 Appointment Victoriano Reid MD [facility] Showing future appointments within next 90 days and meeting all other requirements documented in this encounter Plan of Treatment Upcoming Encounters Date Type Department Care Team (Latest Contact Info) Description 01/21/2025 10:30 AM CDT Clinical Support [facility] UROLOGY #2 [place] [address] Nurse, Ken Urology 02/02/2025 11:00 AM CDT Appointment [facility] [address] 1 [place] [address] Cabrera Yadav MD #2 [facility] [address] [place] [address] Discharge Disposition: Discharged to home or Selfcare 02/10/2025 3:00 PM CDT Appointment [facility] Mammography [address] [place] [address] Elva Olivares, DO 2 [facility] [address] [place] [address] Discharge Disposition: Discharged to home or Selfcare 02/10/2025 4:00 PM CDT Appointment [facility] Ultrasound 1 [place] [address] Elva Olivares, DO 2 [facility] [address] [address] Discharge Disposition: Discharged to home or Selfcare 02/17/2025 1:40 PM CDT [facility] 1 [facility] [place] [address] Cabrera Yadav MD #[address] [address] 02/17/2025 1:40 PM CDT - 02/17/2025 3:40 PM CDT Surgery [facility] Periop 1 [facility] [place] [address] Cabrera Yadav MD #[address] [address] CYSTOSCOPY AND LITHOLAPAXY, PATIENT WILL NEED A PAUL LIFT 03/02/2025 8:40 AM CDT Office Visit [facility] - Family Medicine [facility] #2 [facility] [address] Elva Olivares, DO 2 [facility] [address] [address] Scheduled Procedures Name Priority Associated Diagnoses Date/Ti me CYSTOSCOPY BLADDER STONE BLADDER STONES 02/17/2025 1:40 PM CDT documented as of this encounter Visit Diagnoses Not on filedocumented in this encounter Additional Health Concerns Assessment Noted Time PHQ-9 Depression Total Score: 0 10/24/19 11:16 AM ACCOUNT SUPERVISOR documented as of this encounter Care Teams Commission For The Blind Director Relationship Specialty Start Date End Date Victoriano Reid MD PCP - General Family Medicine 06/19/19 06/29/24 Elva Olivares DO 2 [facility] MCMILLAN [facility]. [address] [place] [address] PCP - General Family Medicine 07/01/24 Malissa Joe, RN [place] Nurse Polarity Tester 12/03/23 12/03/23 Malissa Joe, RN [place] Nurse Polarity Tester 12/05/23 12/05/23 [place], DEICER INSPECTOR ELECTRIC [place] Medical Billing Representative Polarity Tester 11/03/24 Cabrera Yadav MD #2 [facility] [address] [place] [address] Consulting Physician Urology 11/07/24 documented as of this encounter
--- OUTSIDE RECORDS SUMMARY | 2025-01-16 18:58 | XMS_ITS | Encounter Summary ---
Author Organization [facility] Address [address] [place] [address] Phone Care Team Providers Care Gear Milling Machine Set Up Operator Name Role Phone Victoriano Reid MD Primary Care Provider [phone] Malissa Joe RN Unavailable Unavailable Malissa Joe RN Unavailable Unavailable Elva Olivares DO Primary Care Provider [phone] [place] LAYBOY OPERATOR Unavailable Unaabdirizaki Cabrera Dodge MD Unavailable [phone] Encounter Details Date Type Department Care Team (Late st Contact Info) Description 03/29/2021 Lab Requisition [facility] Laboratory Services 1 [place] [address] Victoriano Reid MD #1 [place] [address] Acute cystitis without hematuria; Neuromuscular dysfunction of [...] 01/21/2025 10:30 AM CDT Clinical Support [facility] UR[facility]Y #2 [place] [address] Nurse, Ken Urology 02/02/2025 11:00 AM CDT [facility] 1 [facility] [place] [address] Cabrera Yadav MD #2 [facility] [address] [place] [address] Discharge Disposition: Discharged to home or Selfcare 02/10/2025 3:00 PM CDT [facility] 1 [place] [address] Elva Olivares, DO 2 [facility] [address] [place] [address] Discharge Disposition: Discharged to home or Selfcare 02/10/2025 4:00 PM CDT [facility] Ul[facility]ound 1 [facility] [place] [address] Elva Olivares, DO 2 [facility] [address] [place] [address] Discharge Disposition: Discharged to home or Selfcare 02/17/2025 1:40 PM CDT Hospital [facility] 1 [facility] [place] [address] Cabrera Yadav MD #2 [facility] [address] [place] [address] 02/17/2025 1:40 PM CDT - 02/17/2025 3:40 PM CDT [facility] Periop [address] [place] [address] Cabrera Yadav MD #2 SHANELLE MCMILLAN, [facility] [address] [place] [address] CYSTOSCOPY AND LITHOLAPAXY, PATIENT WILL NEED A PAUL LIFT 03/02/2025 8:40 AM CDT Office Visit [facility] Medical Group - Family Medicine - [place] #2 [place] [address] Elva Olivares, DO 2 [facility]. [address] [place] [address] Scheduled Procedures Name Priority Associated Diagnoses Date/Ti [...] S, COAGULASE NEGATIVE 03/30/2021 8:24 PM CDT [facility] Comment:NO FURTHER WORKUP PE RFORMED Culture No Phlebotomy Charged / Unknown 03/29/2021 11:30 AM CDT 03/29/2021 1:04 PM CDT us Victoriano Reid MD MICROBIOLOGY - GENERAL ORDERABLE S Final Result [facility] [address] [place] [address], [place] * (ABNORMAL) URINALYSIS REFLEX IF INDICATED BY ABNORMAL RESULTS (03/29/2021 11:30 AM CDT) SPECIFIC GRAVITY 1.010 1.003 - 1.030 03/29/2021 1:31 PM CDT [facility] UR[facility] PH 8.0 5.0 - 9.0 03/29/2021 1:31 PM CDT [facility] WBC ESTERASE 500 /uL(A) Negative 03/29/2021 1:31 PM CDT [facility] NITRITE Positive(A) Negative 03/29/2021 1:31 PM CDT [facility] PROTEIN, RANDOM URINE 100 mg/dL(A) Negative 03/29/2021 1:31 PM CDT [facility] URINE GLUCOSE, QUAL Negative Negative 03/29/2021 1:31 PM CDT [facility] URINE KETONES Negative Negative 03/29/2021 1:31 PM CDT [facility] UROBILINOGEN Normal Normal mg/dL 03/29/2021 1:31 PM CDT [facility] URINE BILIRUBIN Negative Negative 1:31 PM CDT [facility] URINE BLOOD 250 /uL(A) Negative josefa/ul 03/29/2021 1:31 PM CDT [facility] URINALYSIS COLOR Yellow 03/29/2021 1:31 PM CDT [facility] URINALYSIS CLARITY Slightly Cloudy 03/29/2021 1:31 PM CDT [facility] WBC (Urine) 6-10(A) Negative, 0-5 /hpf 03/29/2021 1:31 PM CDT [facility] URINE RBC'S 21-50(A) Negative, 0-2 /hpf 03/29/2021 1:31 PM CDT [facility] EPITHELIAL CELLS Occasional /lpf 03/29/2021 1:31 PM CDT [facility] BACTERIA, URINE Few(A) Negative /hpf 03/29/2021 1:31 PM CDT [facility] CRYSTALS Triple phosphate 03/29/2021 1:31 PM CDT [facility] Urine Non-Phlebotomy Collection / Unknown 03/29/2021 11:30 AM CDT 03/29/2021 1:04 PM CDT us Victoriano Reid MD URINE ORDERABLES Final Result [facility]1 [place] [address] documented in this encounter Visit Diagnoses Diagnosis Acute cystitis without hematuria Acute cystitis Neuromuscular dysfunction of bladder, unspecified documented in this encounter Additional Health Concerns Infection Onset Date Last Indicated Resolved Time 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 06/05/2019 04/15/2021 7:28 AM CDT Assessment Noted Time PHQ-9 Depression Total Score: 0 10/24/19 11:16 AM PIPELINES SUPERINTENDENT documented as of this encounter Care Teams Gear Milling Machine Set Up Operator Relationship Specialty Start Date End Date Victoriano Reid MD PCP - General Family Medicine 06/19/19 06/29/24 Elva Olivares DO 2 [facility] [address] [address] PCP - General Family Medicine 07/01/24 Malissa Joe, RN [place] Nurse Chief Informatics Officer 12/03/23 12/03/23 Malissa Joe, RN [place] Nurse Chief Informatics Officer 12/05/23 12/05/23 [place], LAYBOY OPERATOR [place] Strip Cutting Machine Operator Chief Informatics Officer 11/03/24 Cabrera Yadav MD #[address] [place] [address] Consulting Physician Urology 11/07/24 documented as of this encounter
--- OUTSIDE RECORDS SUMMARY | 2025-01-16 18:58 | XMS_ITS | Encounter Summary ---
Author Organization [facility] Address [address] [place] [address] Phone Care Team Providers Care Public Relations Officer Name Role Phone Victoriano Reid MD Primary Care Provider [phone] Malissa Joe RN Unavailable Unavailable Malissa Joe RN Unavailable Unavailable Elva Olivares DO Primary Care Provider [phone] [place] SPECIAL DIET COOK Unavailable Unaabdirizaki Cabrera Dodge MD Unavailable [phone] Encounter Details Date Type Department Care Team (Late st Contact Info) Description 08/31/2023 Lab Requisition [facility] Laboratory Services 1 [place] [id number] Victoriano Reid MD #1 [place] [address] Urinary tract infection, site not specified Social [...] 10:30 AM CDT Clinical Support [facility] UROLOGY #[address] [place] [address] Nurse, Ken Urology 02/02/2025 11:00 AM CDT Appointment [facility] [address] [facility] [place] [address] Cabrera Yadav MD #2 [facility] [address] [place] [address] Discharge Disposition: Discharged to home or Selfcare 02/10/2025 3:00 PM CDT Appointment [facility] Mammography 1 [place] [address] Elva Olivares, DO 2 [facility] [address] [place] [address] Discharge Disposition: Discharged to home or Selfcare 02/10/2025 4:00 PM CDT Appointment [facility] Ultrasound 1 [facility] [place] [address] Elva Olivares, DO 2 [facility] [address] [place] [address] Discharge Disposition: Discharged to home or Selfcare 02/17/2025 1:40 PM CDT Hospital Encounter [facility] Periop 1 [facility] [place] [address] Cabrera Yadav MD #2 [facility] [address] [place] [address] 02/17/2025 1:40 PM CDT - 02/17/2025 3:40 PM CDT Surgery [facility] Periop 1 [place] [address] Cabrera Yadav MD #2 [facility], [facility] [address] [place] [address] CYSTOSCOPY AND LITHOLAPAXY, PATIENT WILL NEED A PAUL LIFT 03/02/2025 8:40 AM CDT Office Visit [facility] Medical Group - Family Medicine - [place] [address] [place] [address] Elva Olivares, DO 2 [facility]. [address] [place] [address] Scheduled Procedures Name Priority Associated Diagnoses Date/Ti me CYSTOSCOPY BLADDER STONE BLADDER STONES 02/17/2025 1:40 PM CDT documented as of this encounter Procedures Procedure Name Priority Date/Time Associated Diagnosis Comments URINALYSIS REFLEX IF INDICATED BY ABNORMAL RESULTS Routine 08/31/2023 12:00 PM ELECTRON BEAM WELDER SETTER Urinary tract infection, site not specified CULTURE, URINE Routine 08/31/2023 12:00 PM ELECTRON BEAM WELDER SETTER Urinary tract infection, site not specified documented in this encounter Results * CULTURE, URINE (08/31/2023 12:00 PM ELECTRON BEAM WELDER SETTER) CULTURE RESULTS ENTEROCOCCUS FAECALIS 09/02/2023 6:17 PM ELECTRON BEAM WELDER SETTER [facility] Urine Non-Phlebotomy Collection / Unknown 08/31/2023 12:00 PM ELECTRON BEAM WELDER SETTER 08/31/2023 1:39 PM ELECTRON BEAM WELDER SETTER Narrative [facility] - 09/02/2023 6:17 PM ELECTRON BEAM WELDER SETTER Susceptibility not performed on enterococcus species. Due to high achievable concentrations in urine, Ampicillin is the drug of choice for treating infections limited to the lower urinary tract (regardless of Vancomycin susceptibility). For allergic patients, Nitrofurantoin or a quinolone may be substituted. us Victoriano Reid MD MICROBIOLOGY - GENERAL ORDERABLE S Final Result [facility] [address] [place] [address], [place] * (ABNORMAL) URINALYSIS REFLEX IF INDICATED BY ABNORMAL RESULTS (08/31/2023 12:00 PM ELECTRON BEAM WELDER SETTER) SPECIFIC GRAVITY 1.005 1.003 - 1.030 08/31/2023 2:27 PM ELECTRON BEAM WELDER SETTER [facility] URINE PH 7.0 5.0 - 9.0 08/31/2023 2:[address] [facility] WBC ESTERASE 500 /uL(A) Negative 08/31/2023 2:[address] [facility] NITRITE Negative Negative 08/31/2023 2:[address] [facility] PROTEIN, RANDOM URINE 30 mg/dL(A) Negative 08/31/2023 2:[address] [facility] URINE GLUCOSE, QUAL Negative Negative 08/31/2023 2:[address] [facility] URINE KETONES Negative Negative 08/31/2023 2:[address] [facility] UROBILINOGEN Normal Normal mg/dL 08/31/2023 2:[address] [facility] URINE BLOOD 250 /uL(A) Negative josefa/ul 08/31/2023 2:[address] [facility] URINALYSIS COLOR Yellow 08/31/2023 2:[address] [facility] URINALYSIS CLARITY Slightly Cloudy 08/31/2023 2:[address] [facility] WBC (Urine) 6-10(A) Negative, 0-5 /hpf 08/31/2023 2:[address] [facility] URINE RBC'S 3-5(A) Negative, 0-2 /hpf 08/31/2023 2:[address] [facility] EPITHELIAL CELLS Occasional /lpf 08/31/2023 2:27 PM ELECTRON BEAM WELDER SETTER [facility] BACTERIA, URINE Few(A) Negative /hpf 08/31/2023 2:27 PM ELECTRON BEAM WELDER SETTER [facility] Urine Non-Phlebotomy Collection / Unknown 08/31/2023 12:00 PM ELECTRON BEAM WELDER SETTER 08/31/2023 1:39 PM ELECTRON BEAM WELDER SETTER Victoriano Reid MD URINE ORDERABLES Final Result [facility] #[address] [place] [address] documented in this encounter Visit Diagnoses Diagnosis Urinary tract infection, site not specified documented in this encounter Additional Health Concerns Assessment Noted Time PHQ-9 Depression Total Score: 0 08/15/20 21 10:00 AM CDT documented as of this encounter Care Teams Public Relations Officer Relationship Specialty Start Date End Date Victoriano Reid MD PCP - General Family Medicine 06/19/19 06/29/24 Elva Olivares DO 2 [facility] [address] [place] [address] PCP - General Family Medicine 07/01/24 Malissa Joe, RN [place] Nurse Roller Print Tender 12/03/23 12/03/23 Malissa Joe, RN [place] Nurse Roller Print Tender 12/05/23 12/05/23 [place] LSW [place] Full Stack Engineer Roller Print Tender 11/03/24 Cabrera Yadav MD #2 [facility] [address] [place] [address] Consulting Physician Urology 11/07/24 documented as of this encounter
--- OUTSIDE RECORDS SUMMARY | 2025-01-16 18:58 | XMS_ITS | Encounter Summary ---
Author Organization [facility] Address [address] [place] [address] Phone Care Team Providers Care Security Incident Response Specialist Name Role Phone Victoriano Reid MD Primary Care Provider [phone] Malissa Joe RN Unavailable Unavailable Malissa Joe RN Unavailable Unavailable Elva Olivares DO Primary Care Provider [phone] [place] ECOLOGIST Unavailable Unaabdirizaki Cabrera Dodge MD Unavailable [phone] Encounter Details Date Type Department Care Team (Late st Contact Info) Description 01/24/[address] [facility] Laboratory Services 1 [place] [id number] Victoriano Reid MD #1 [place] [address] Urinary tract infection, site not specified Social [...] Description 01/21/2025 10:30 AM CDT Clinical Support [facility] UR[facility]Y #[address] [place] [address] Nurse, [place] U[facility] 02/02/2025 11:00 AM CDT [facility] [address] [place] [address] Cabrera Yadav MD #2 [facility] [address] [place] [address] Discharge Disposition: Discharged to home or Selfcare 02/10/2025 3:00 PM CDT [facility] M[facility] 1 [place] [address] Elva Olivares, DO 2 [facility] [address] [place] [address] Discharge Disposition: Discharged to home or Selfcare 02/10/2025 4:00 PM CDT [facility] Ul[facility]ound 1 [place] [address] Elva Olivares, DO 2 [facility] [address] [place] [address] Discharge Disposition: Discharged to home or Selfcare 02/17/2025 1:40 PM CDT Hospital [facility] Periop [address] [place] [address] Cabrera Yadav MD #2 [facility] [address] [place] [address] 02/17/2025 1:40 PM CDT - 02/17/2025 3:40 PM CDT [facility] 1 [facility] [place] [address] Cabrera Yadav MD #2 [facility] [address] [place] [address] CYSTOSCOPY AND LITHOLAPAXY, PATIENT WILL NEED A PAUL LIFT 03/02/2025 8:40 AM CDT Office Visit [facility] Medical Group - Family Medicine - [place] #[address] [place] [address] Elva Olivares, DO 2 [facility]. [address] [place] [address] Scheduled Procedures Name Priority Associated Diagnoses Date/Ti [...] RESULTS CITROBACTER AMALONATICUS 01/27/2023 10:26 AM CDT [facility] CULTURE RESULTS GRAM-NEGATIVE BACILLUS 01/27/2023 10:26 AM CDT [facility] Comment:NO FURTHER WORKUP PE RFORMED Urine Non-Phlebotomy Collection / Unknown 01/24/2023 1:55 PM CDT 01/24/2023 2:43 PM CDT Narrative Organism Antibiotic Method Susceptibility Citrobacter amalonaticus Cefazolin SF VITEK II >=64 mcg/ml: Resistant Citrobacter amalonaticus [...] MICROBIOLOGY - GENERAL ORDERABLE S Final Result [facility] [address] [place] [address], * (ABNORMAL) URINALYSIS REFLEX IF INDICATED BY ABNORMAL RESULTS (01/24/2023 1:55 PM CDT) SPECIFIC GRAVITY 1.010 1.003 - 1.030 01/24/2023 3:08 PM CDT [facility] URINE PH 7.0 5.0 - 9.0 01/24/2023 3:08 PM CDT [facility] WBC ESTERASE 500 /uL(A) Negative 01/24/2023 3:08 PM CDT [facility] NITRITE Negative Negative 01/24/2023 3:08 PM CDT [facility] PROTEIN, RANDOM URINE 30 mg/dL(A) Negative 01/24/2023 3:08 PM CDT [facility] URINE GLUCOSE, QUAL Negative Negative 01/24/2023 3:08 PM CDT [facility] URINE KETONES Negative Negative 01/24/2023 3:08 PM CDT [facility] UROBILINOGEN Normal Normal mg/dL 01/24/2023 3:08 PM CDT [facility] URINE BLOOD 250 /uL(A) Negative josefa/ul 01/24/2023 3:08 PM CDT [facility] URINALYSIS COLOR Rea 01/25/20 3:08 PM CDT [facility] URINALYSIS CLARITY Slightly Cloudy 01/24/2023 3:08 PM CDT [facility] WBC (Urine) Packed(A) Negative, 0-5 /hpf 01/24/2023 3:08 PM CDT [facility] URINE RBC'S -20(A) Negative, 0-2 /hpf 01/24/2023 3:08 PM CDT [facility] EPITHELIAL CELLS Small amount /lpf 2022 3:08 PM CDT [facility] BACTERIA, URINE Moderate(A) Negative /hpf 01/24/2023 3:08 PM CDT [facility] Urine Non-Phlebotomy Collection / Unknown 01/24/2023 1:55 PM CDT 01/24/2023 2:43 PM CDT us Victoriano Reid MD URINE ORDERABLES Final Result [facility] #1 [place] [address] documented in this encounter Visit Diagnoses Diagnosis Urinary tract infection, site not specified documented in this encounter Additional Health Concerns Assessment Noted Time PHQ-9 Depression Total Score: 0 08/15/20 21 10:00 AM CDT documented as of this encounter Care Teams Security Incident Response Specialist Relationship Specialty Start Date End Date Victoriano Reid MD PCP - General Family Medicine 06/19/19 06/29/24 Elva Olivares DO 2 [facility]. [address] [place] [address] PCP - General Family Medicine 07/01/24 Malissa Joe, RN [place] Nurse Solo Musician 12/03/23 12/03/23 Malissa Joe, RN [place] Nurse Solo Musician 12/05/23 12/05/23 [place], ECOLOGIST [place] Manager Of Clinical Solo Musician 11/03/24 Cabrera Yadav MD #2 [facility] [address] [place] [address] Consulting Physician Urology 11/07/24 documented as of this encounter
--- OUTSIDE RECORDS SUMMARY | 2025-01-16 18:58 | XMS_ITS | Referral Summary ---
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 -TTE shows grade 1 diastolic dysfunction and normal LVEF - starting [facility] inpatient today Assessment & Plan (03/11/2019 4:28 [...] diastolic dysfunction and normal LVEF - starting [facility] inpatient tomorrow Vitamin D deficiency 03/03/2019 Overview [...] Hypercarbia 02/25/2019 Paralysis of both lower limbs 02/25/2019 Assessment & Plan (08/05/2019 8:28 AM CDT): [...] Discharge plans for acute inpatient rehab at [facility]. - No weight bearing restrictions, but full [...] Discharge plans for acute inpatient rehab at [facility]. - No weight bearing restrictions, but full [...] certainly need placement for aggressive PT/[place]. [place]. - No weight bearing restrictions, [...] certainly need placement for aggressive PT/OT. [place]. - No weight bearing restrictions, [...] certainly need placement for aggressive PT/OT. [place]. - No weight bearing restrictions, [...] certainly need placement for aggressive PT/OT. [place]. - No weight bearing restrictions, [...] today, please call Janice Adams NP at [phone]. If after hours, please contact the Diabetes Fellow at [phone]. Assessment & Plan (03/14/2019 10:32 AM CDT): [...] today, please call Crista Montgomery NP at [phone]. If after hours, please contact the Diabetes Fellow at [phone]. Assessment & Plan (03/12/2019 10:31 AM CDT): [...] today, please call Janice Adams NP at [phone]. If after hours, please contact the Diabetes Fellow at [phone]. Assessment & Plan (03/05/2019 6:21 PM CDT): [...] 100 mg daily starting today. -monitor BS QI Patient has been seen by CDE. Tentative [...] after the previous Dexamethasone wears off -monitor [facility] Patient has been seen by CDE. Tentative [...] were discussed with the primary team. Call [phone] with questions on day of service only. If after hours or weekends, please contact the Diabetes Fellow at [phone], option #1 Assessment & Plan (02/28/2019 12:17 [...] were discussed with the primary team. Call [phone] with questions on day of service only. If after hours or weekends, please contact the Diabetes Fellow at [phone], option #1 Assessment & Plan (02/26/2019 4:31 [...] today, please call Crista Montgomery NP at [phone]. If after hours, please contact the Diabetes Fellow at [phone]. Assessment & Plan (02/24/2019 10:05 AM CDT): -New diagnosis. A1c 8.9 -LDSSI. DM educator c/s, ballroom dance instructor -Monitor BG with decadron Resolved Problems Problem [...] ) due to urinary indwelling Armijo catheter 07/25/2019 08/05/2019 Assessment & Plan (08/01/2019 10:43 AM CDT): [...] - Ucx: Pending, continue oxybutinin Severe malnutrition (CMS/HCC) 06/13/2019 05/27/2021 Severe malnutrition 04/18/2019 05/20/20 Acute hypoxemic respiratory failure 04/15/2019 05/20/2019 Assessment [...] -TTE (04/16) with EF 74%, mild TR, MT; G1DD, normal RV size and function. -if [...] Comments Blood Pressure 111/76 09/03/2019 12:16 PM HOLIDAY DETECTOR OPERATOR Pulse 81 09/03/2019 12:16 PM HOLIDAY DETECTOR OPERATOR Temperature 36.4 C (97.5 F) 09/03/2019 12:16 PM HOLIDAY DETECTOR OPERATOR Respiratory Rate 16 09/03/2019 12:1 6 PM HOLIDAY DETECTOR OPERATOR Oxygen Saturation 100% 09/03/2019 12: 16 PM HOLIDAY DETECTOR OPERATOR Inhaled Oxygen Concentration - - Weight 79.8 kg (176 lb) 09/03/2019 12:1 6 PM HOLIDAY DETECTOR OPERATOR weight -verbal per patient Height 165.1 cm (5' 5 ) 09/03/2019 12:1 6 PM HOLIDAY DETECTOR OPERATOR Body Mass Index 29.29 09/03/2019 12:16 PM HOLIDAY DETECTOR OPERATOR Plan of Treatment Not on file Medical Devices Implanted Type Area Express Manager Device Identifier Shelf Expiration Date Model / Serial / Lot Depuy Spine [id number] 5.5mm 1 Inner Spine Screw Set Titanium Nonsterile Viper - [id number] Implanted:Qty: 8 on 02/24/2019 by Edelmira Pimentel MD at [facility] Screw N/A: Spine Lumbar Depuy Spine [id number] / / Depuy Synthes Spine [id number] Viper Prime Od5 Mm L45 Mm Fix Polyaxial Fenestrate Extend Tab Spine Cortical Screw Bone Nonsterile 5.5 Mm Dav - [id number] Implanted:Qty: 2 on 02/24/2019 by Edelmira Pimentel MD at [facility] Screw N/A: Spine Lumbar Depuy Synthes Spine [id number] / / Depuy Synthes Spine [id number] Viper Prime Od6 Mm L40 Mm Fix Polyaxial Fenestrate Extend Tab Spine Cortical Screw Bone Nonsterile 5.5 Mm Dav - [id number] Implanted:Qty: 2 on 02/24/2019 by Edelmira Pimentel MD at [facility] Screw N/A: Spine Lumbar Depuy Synthes Spine [id number] / / Depuy Synthes Spine [id number] Viper Prime Od6 Mm L45 Mm Fix Polyaxial Fenestrate Extend Tab Spine Cortical Screw Bone Nonsterile 5.5 Mm Dav - [id number] Implanted:Qty: 4 on 02/24/2019 by Edelmira Pimentel MD at [facility] N/A: Spine Lumbar Depuy Synthes Spine [id number] / / Ti Mis Depuy Viper Kypho Dav Implanted:Qty: 2 on 02/24/2019 by Edelmira Pimentel MD at [facility] N/A: Spine Lumbar Depuy Spine [id number] / / Angio Dynamics [id number] Xcela 8fr 1.6mm 1 Lumen Power Injectable Attach Catheter Fill - [id number] Implanted:Qty: 1 on 04/29/[address] [facility] Angio Dynamics 02/17/2024 [id number] / / [id number] Procedures Procedure Name Priority Date/Time Associated Diagnosis Comments HEMOGLOBIN A1C STAT 06/13/2019 12:08 PM CDT LIPID PANEL Routine 04/15/2019 2:17 AM CDT HEPATITIS PANEL, ACUTE Routine 03/05/2019 8:26 PM CDT from Last 3 Months or Most Recently Relevant to Health Maintenance Results * (ABNORMAL) Hemoglobin A1c (06/13/2019 12:08 PM CDT) Hgb A1C 6.5(H) 4.0 - 5.6 % [facility] Estimated Average Glucose 140 mg/dL [facility] Comment: The ADA recommends reporting an estimated Average Glucose (eAG) with all Hemoglobin A1c results using the equation derived from a study of 507 normal and diabetic adults. Minority populations were underrepresented and children were not included. (Diabetes Care 31:0981-5180, 2008). The eAG is not equivalent to a fasting glucose. Blood specimen (specimen) 06/13/2019 12:08 PM CDT 06/13/2019 12:23 PM CDT Rashaun Peoples MD LAB BLOOD ORDERABLES Final R esult [facility] [address] [place] [address] * (ABNORMAL) Lipid panel (04/15/2019 2:17 AM CDT) Cholesterol 95 30 - 199 mg/dL [facility] Comment: Interpretive Data Ages < or = [...] revised on 2018. Triglycerides 59 <=149 mg/dL [facility] Comment: Interpretive Data Ages < or = [...] revised on 2018. HDL 30(L) >=40 mg/dL [facility] Comment: Interpretive Data Ages < or = [...] on 2018. LDL, calculated 53 <=129 mg/dL [facility] Comment: Interpretive Data Ages < or = [...] revised on 2018. Non-HDL Cholesterol 65 mg/dL [facility] Comment: Interpretive Data Ages < [...] last revised on 2018. Chol/HDL ratio 3 [facility] Blood specimen (specimen) 04/15/2019 2:17 AM CDT 04/15/2019 3:00 AM CDT us Rashaun Rafi Richelle MD LAB BLOOD ORDERABLES Final R esult Performing Organization Address City/[facility]/ZIP Co de Phone Number [facility] [place] [address] * Hepatitis panel, acute (03/05/2019 8:26 PM CDT) Hep A IgM Nonreactive Nonreactive [facility] Comment: Interpretive Data If test is reported as GRAYZONE, new sample should be drawn in two weeks for testing. Current interpretive data was last revised on 2016. Hep B core IgM Nonreactive Nonreactive [facility] Comment: Interpretive Data If test is reported as GRAYZONE, new sample should be drawn for testing. Current interpretive data was last revised on 2016. Hep C Ab Nonreactive Nonreactive [facility] Comment: Interpretive Data Positive results should be confirmed by a molecular method. If positive, a second separately collected sample should be submitted for Hepatitis C Virus (HCV) RNA Detection and Quantitation by Real-Time Reverse Drywall Professional-PCR (RT-PCR). Current interpretive data was last revised on 2016. HepBsAg Nonreactive Nonreactive [facility] Blood specimen (specimen) 03/05/2019 8:26 PM CDT 03/05/2019 8:41 PM CDT Narrative [facility] - 03/06/2019 12:32 PM CDT Meng Ulrich MD LAB MICROBIOLOGY - GENERAL OR DERABLES Edited Result - Final [facility] Department [place] [address] from Last 3 Months or Most Recently Relevant to Health Maintenance [place] [address] [place] [address] Advance Directives For more information, please contact: [phone] Documents on File Type Date Recorded Patient Building Construction Contractor Expl anation ADVANCE DIRECTIVE 05/03/2019 1:58 PM POWER OF LACQUER SPRAYER-MEDICAL ADVANCE DIRECTIVE 05/02/2019 5:43 AM POWER OF LACQUER SPRAYER-MEDICAL ADVANCE DIRECTIVE 04/30/2019 3:45 PM ADVANCE DIRECTIVE 04/27/2019 1:33 PM POWER OF LACQUER SPRAYER-MEDICAL * Full Code (Latest Code Status on [...] 9:21 PM 03/14/2019 6:56 PM Care Teams Preschool Associate Teacher Relationship Specialty Start Date End Date Victoriano Reid MD PCP - General Family Medicine 06/20/19 Rashaun Peoples MD [address] [facility] [address] [place] [address] Medical Oncologist/Casing Puller Medical Oncology 08/07/19 Edelmira Pimentel MD [address] [facility] [address] [place] [address] Surgeon Orthopedic Surgery 09/01/19
--- OUTSIDE RECORDS SUMMARY | 2025-01-16 18:58 | XMS_ITS | Encounter Summary ---
Author Organization [facility] Address [address] [place] [address] Phone Care Team Providers Care Grain Drier Name Role Phone Victoriano Reid MD Primary Care Provider [phone] Malissa Joe RN Unavailable Unavailable Malissa Joe RN Unavailable Unavailable Elva Olivares DO Primary Care Provider [phone] Hinton CHINCHILLA MACHINE OPERATOR Unavailable Unaabdirizaki Cabrera Dodge MD Unavailable [phone] Encounter Details Date Type Department Care Team (Late st Contact Info) Description 04/20/2020 Lab [facility] 1 [place] [id number] Victoriano Reid MD #1 [place] [address] Urinary tract infection, site not specified Social [...] Description 01/21/2025 10:30 AM CDT Clinical Support [facility] UROLOGY #[address] [place] [address] Nurse, Ken Urology 02/02/2025 11:00 AM CDT Appointment [facility] CT [address] [place] [address] Cabrera Yadav MD #2 SHANELLE MCMILLAN, [facility] [address] [place] [address] Discharge Disposition: Discharged to home or Selfcare 02/10/2025 3:00 PM CDT [facility]ointment [facility] Mammography 1 [facility] [place] [address] Elva Olivares, DO 2 [facility] [address] [place] [address] Discharge Disposition: Discharged to home or Selfcare 02/10/2025 4:00 PM CDT Appointment [facility] Ultrasound [address] [place] [address] Elva Olivares, DO 2 [facility] [address] [place] [address] Discharge Disposition: Discharged to home or Selfcare 02/17/2025 1:40 PM CDT Hospital Encounter [facility] Periop [address] [place] [address] Cabrera Yadav MD #2 SHANELLE MCMILLAN, [facility] [address] [place] [address] 02/17/2025 1:40 PM CDT - 02/17/2025 3:40 PM CDT Surgery [facility] Periop [address] [place] [address] Cabrera Yadav MD #2 SHANELLE MCMILLAN [facility] [address] [place] [address] CYSTOSCOPY AND LITHOLAPAXY, PATIENT WILL NEED A PAUL LIFT 03/02/2025 8:40 AM CDT Office Visit [facility] Medical Group - Family Medicine [facility] #[address] [place] [address] Elva Olivares, DO 2 [facility]. [address] [place] [address] Scheduled Procedures Name Priority Associated Diagnoses Date/Ti [...] RESULTS ESCHERICHIA COLI 04/24/2020 9:18 AM CDT [facility] ESCHERICHIA COLI 04/24/2020 9:18 AM CDT [facility] Urine Non-Phlebotomy Collection / Unknown 04/20/2020 [...] - GENERAL ORDERABLE S Final Result [facility] [address] [place] [address], * (ABNORMAL) URINALYSIS REFLEX IF INDICATED BY ABNORMAL RESULTS (04/20/2020 3:50 PM CDT) SPECIFIC GRAVITY 1.010 1.003 - 1.030 04/20/2020 5:20 PM CDT [facility] UR[facility] PH 8.0 5.0 - 9.0 04/20/2020 5:20 PM CDT [facility] WBC ESTERASE 500 /uL(A) Negative 04/20/2020 5:20 PM CDT [facility] NITRITE Positive(A) Negative 04/20/2020 5:20 PM CDT [facility] PROTEIN, RANDOM URINE Negative Negative 04/20/2020 5:20 PM CDT [facility] URINE GLUCOSE, QUAL Negative Negative 04/20/2020 5:20 PM CDT [facility] URINE KETONES Negative Negative 04/20/2020 5:20 PM CDT [facility] UROBILINOGEN Normal Normal mg/dL 04/20/2020 5:20 PM CDT [facility] URINE BILIRUBIN Negative Negative 0 5:20 PM CDT [facility] URINE BLOOD 10 /uL(A) Negative josefa/ul 04/20/2020 5:20 PM CDT [facility] URINALYSIS COLOR Straw 04/20/20 5:20 PM CDT [facility] URINALYSIS CLARITY Very Cloudy 04/20/2020 5:20 PM CDT [facility] WBC (Urine) 21-50(A) Negative, 0-5 /hpf 04/20/2020 5:20 PM CDT [facility] URINE RBC'S 0-2 Negative, 0-2 /hpf 04/20/2020 5:20 PM CDT [facility] EPITHELIAL CELLS Small amount /lpf 2019 5:20 PM CDT [facility] BACTERIA, URINE Packed(A) Negative /hpf 04/20/2020 5:20 PM CDT [facility] Urine Non-Phlebotomy Collection / Unknown 04/20/2020 3:50 PM CDT 04/20/2020 4:57 PM CDT Victoriano Reid MD URINE ORDERABLES Final Result [facility] #[address] [place] [address] documented in this encounter Visit Diagnoses Diagnosis Urinary tract infection, site not specified documented in this encounter Additional Health Concerns Infection Onset Date Last Indicated Resolved Time 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 [address] [place] [address] PCP - General Family Medicine 07/01/24 Malissa Joe, RN [place] Nurse Sheet Rock Sander 12/03/23 12/03/23 Malissa Joe, RN [place] Nurse Sheet Rock Sander 12/05/23 12/05/23 Hinton, CHINCHILLA MACHINE OPERATOR [place] E Commerce Strategist Sheet Rock Sander 11/03/24 Cabrera Yadav MD #2 [facility] [address] [place] [address] Consulting Physician Urology 11/07/24 documented as of this encounter
--- OUTSIDE RECORDS SUMMARY | 2025-01-16 18:58 | XMS_ITS | Encounter Summary ---
Author Organization [facility] Address [address] [place] [address] Phone Care Team Providers Care Pastry Chef Name Role Phone Victoriano Reid MD Primary Care Provider [phone] Malissa Joe RN Unavailable Unavailable Malissa Joe RN Unavailable Unavailable Elva Olivares DO Primary Care Provider [phone] Hinton POST COMMANDER Unavailable Cabrera Smallwood MD Unavailable [phone] Reason for Visit * Reason Comments Medication Refill Encounter Details Date Type Department Care Team (Late st Contact Info) Description 09/05/2021 Refill [facility] Medical Group - Family Medicine [facility] #2 [place] [address] Victoriano Reid MD #1 [place] [address] Medication Refill Social History Tobacco Use Types [...] Description 01/21/2025 10:30 AM CDT Clinical Support [facility] UROLOGY #2 [place] [address] Nurse, [place] [facility] 02/02/2025 11:00 AM CDT [facility] [address] [place] [address] Cabrera Yadav MD #[address] [address] Discharge Disposition: Discharged to home or Selfcare 02/10/2025 3:00 PM CDT [facility] Mamm[facility] 1 [place] [address] Elva Olivares, DO 2 [facility] [address] [place] [address] Discharge Disposition: Discharged to home or Selfcare 02/10/2025 4:00 PM CDT [facility] Ul[facility]ound 1 [place] [address] Elva Olivares, DO 2 [facility] [address] [place] [address] Discharge Disposition: Discharged to home or Selfcare 02/17/2025 1:40 PM CDT Hospital [facility] Per[facility] 1 [facility] [place] [address] Cabrera Yadav MD #2 [facility] [address] [place] [address] 02/17/2025 1:40 PM CDT - 02/17/2025 3:40 PM CDT Surgery [facility] Per[facility] 1 [facility] [place] [address] Cabrera Yadav MD #[address] [address] CYSTOSCOPY AND LITHOLAPAXY, PATIENT WILL NEED A PAUL LIFT 03/02/2025 8:40 AM CDT Office Visit [facility] Medical Group - Family [facility] #2 [place] [address] Elva Olivares DO [address] [address] Scheduled Procedures Name Priority Associated Diagnoses Date/Ti ut CYSTOSCOPY BLADDER STONE BLADDER STONES 02/17/2025 1:40 PM CDT documented as of this encounter Visit Diagnoses Diagnosis Muscle spasm Spasm of muscle documented in this encounter Additional Health Concerns Assessment Noted Time PHQ-9 Depression Total Score: 0 08/15/20 21 10:00 AM CDT documented as of this encounter Care Teams Pastry Chef Relationship Specialty Start Date End Date Victoriano Reid MD PCP - General Family Medicine 06/19/19 06/29/24 Elva Olivares DO 2 [email or web address] [address] [place] [address] PCP - General Family Medicine 07/01/24 Malissa Joe, RN [place] Nurse Crime Prevention Police Officer 12/03/23 12/03/23 Malissa Joe, RN [place] Nurse Crime Prevention Police Officer 12/05/23 12/05/23 Hinton, [facility] Clinical Document Improvement Educator Crime Prevention Police Officer 11/03/24 Cabrera Yadav MD #[address] [address] Consulting Physician Urology 11/07/24 documented as of this encounter
--- OUTSIDE RECORDS SUMMARY | 2025-01-16 18:58 | XMS_ITS | Encounter Summary ---
Author Organization [facility] Address [address] [place] [address] Phone Care Team Providers Care Guide Domestic Tour Name Role Phone Victoriano Reid MD Primary Care Provider [phone] Elva Olivares DO Primary Care Provider [phone] Hinton [facility] Unavailable Cabrera Smallwood MD Unavailable [phone] Reason for Visit * Reason Comments Medication Refill Encounter Details Date Type Department Care Team (Late Contact Info) Description 12/20/2023 Refill [facility] Medical Group - Family Medicine [facility] #2 [place] [address] Victoriano Reid MD #1 [place] [address] Medication Refill Social History Tobacco Use Types [...] any clubs o r organizations such as muslim groups, unions, fraternal or athletic groups, or [...] Total Score - Questions 1-9 0 12/14 [facility] of Occupat ional Health - Occupational Stress [...] of Assessment Author 0 12/20/2023 11:52 AM AIRPLANE CLEANER [employer], System Background * Within the last year, have you been humiliated or emotionally abused in other ways by your partner or ex-partner? Answer Date of Assessment Author No 12/20/2023 11:52 AM AIRPLANE CLEANER [employer] Background * Within the last year, have you been afraid of your partner or ex-partner? Answer Date of Assessment Author No 12/20/2023 11:52 AM AIRPLANE CLEANER [employer], System Background * Within the last year, have you been raped or forced to have any kind of sexual activity by your partner or ex-partner? Answer Date of Assessment Author No 12/20/2023 11:52 AM AIRPLANE CLEANER [employer], System Background * Within the last year, have you been kicked, hit, slapped, or otherwise physically hurt by your partner or ex-partner? Answer Date of Assessment Author No 12/20/2023 11:52 AM AIRPLANE CLEANER [employer], System Background * Q1: How often do you have a drink containing alcohol? Answer Date of Assessment Author Never 12/20/2023 11:52 AM AIRPLANE CLEANER [employer] System Background * Q2: How many drinks containing alcohol do you have on a typical day when you are drinking? Answer Date of Assessment Author Patient does not drink 12/20/2023 11:52 AM AIRPLANE CLEANER [employer] Background * Q3: How often do you have six or more drinks on one occasion? Answer Date of Assessment Author Never 12/20/2023 11:52 AM AIRPLANE CLEANER [employer] System Background documented as of this encounter Miscellaneous Notes * Telephone Encounter - Adelaida Medina RN - 12/20/2023 8:43 AM AIRPLANE CLEANER Medication failed the protocol, provider to review [...] Provider Dept 12/06/23 Telemedicine Victoriano Reid MD [facility] Ken 10/23/23 Telemedicine Miriam Prasad APRN, LORI [facility] 03/29/23 Office Visit Victoriano Reid MD [facility] Ken Showing recent visits within past 365 days and meeting all other requirements Future Appointments Date Type Provider Dept 12/21/23 Appointment Victoriano Reid MD [facility] Ken Showing future appointments within next 90 days and meeting all other requirements LANE CLEANER documented in this encounter Plan of Treatment Upcoming Encounters Date Type Department Care Team (Latest Contact Info) Description 01/21/2025 10:30 AM CDT Clinical Support [facility] UROLOGY #2 [place] [address] NurseKen Urology 02/02/2025 11:00 AM CDT [facility] [address] [place] [address] Cabrera Yadav MD #2 [facility] [address] [place] [address] Discharge Disposition: Discharged to home or Selfcare 02/10/2025 3:00 PM CDT Appointment [facility] Mammography 1 [facility] [place] [address] Elva Olivares, DO 2 [facility] [address] [place] [address] Discharge Disposition: Discharged to home or Selfcare 02/10/2025 4:00 PM CDT Appointment [facility] Ultrasound 1 [facility] [place] [address] Elva Olivares, DO 2 [facility] [address] [place] [address] Discharge Disposition: Discharged to home or Selfcare 02/17/2025 1:40 PM CDT Hospital [facility] Per[facility] 1 [facility] [place] [address] Cabrera Yadav MD #2 [facility] [address] [address] 02/17/2025 1:40 PM CDT - 02/17/2025 3:40 PM CDT Surgery [facility] Periop 1 [facility] [place] [address] Cabrera Yadav MD #[address] [place] [address] CYSTOSCOPY AND LITHOLAPAXY, PATIENT WILL NEED A PAUL LIFT 03/02/2025 8:40 AM CDT Office Visit [facility] #2 [place] [address] Elva Olivares DO [address] [facility] [address] [place] [address] Scheduled Procedures Name Priority Associated Diagnoses Date/Ti [...] documented as of this encounter Care Teams Guide Domestic Tour Relationship Specialty Start Date End Date Victoriano Reid MD PCP - General Family Medicine 06/19/19 06/29/24 Elva Olivares DO [address] M[facility]ILL[facility] [address] [place] [address] PCP - General Family Medicine 07/01/24 Hinton, [facility] Brush Cleaner Painting Manager 11/03/24 Cabrera Yadav MD #[address] [address] Consulting Physician Urology 11/07/24 documented as of this encounter
--- OUTSIDE RECORDS SUMMARY | 2025-01-16 18:58 | XMS_ITS | Encounter Summary ---
Author Organization [facility] Address [address] [place] [address] Phone Care Team Providers Care Physician/Allergy/Immunology Name Role Phone Victoriano Reid MD Primary Care Provider [phone] Malissa Joe RN Unavailable Unavailable Malissa Joe RN Unavailable Unavailable Elva Olivares DO Primary Care Provider [phone] Hinton SAFE EXPERT Unavailable Cabrera Smallwood MD Unavailable [phone] Reason for Visit * Reason Onset Date Comments Medication Refill 12/27/2021 Encounter Details Date Type Department Care Team (Late st Contact Info) Description 12/27/2021 Refill [facility] Medical Group - Family [facility] #2 [place] [address] Victoriano Reid MD #1 [place] [address] Medication Refill Social History Tobacco Use Types [...] Reid MD [facility] 02/14/21 Telemedicine Victoriano Ried MD O[facility] Rogers Showing recent visits within past 365 days and meeting all other requirements Future Appointments Date Type Provider Dept 01/02/22 Appointment Saranya Brooke APRN, FILENET DEVELOPER [facility] Showing future appointments within next 90 days and meeting all other requirements * Telephone Encounter - Estephanie Parham - 12/27/2021 9:11 AM CDT Received a faxed Rx request from pharmacy. Reordered refill medication(s) requested and pended for nurse and physician/NICKOLAS review. Refill encounter routed to nurse TabbyGeneCapturemanjit's [facility] for processing. documented in this encounter Plan of Treatment Upcoming Encounters Date Type Department Care Team (Latest Contact Info) Description 01/21/2025 10:30 AM CDT Clinical Support [facility] #2 [place] [address] NurseKen Urology 02/02/2025 11:00 AM CDT [facility] [address] [place] [address] Cabrera Yadav MD #2 [facility] [address] [place] [address] Discharge Disposition: Discharged to home or Selfcare 02/10/2025 3:00 PM CDT [facility] Mamm[facility] [address] [place] [address] Elva Olivares, DO 2 [facility] [address] [place] [address] Discharge Disposition: Discharged to home or Selfcare 02/10/2025 4:00 PM CDT [facility] Ul[facility]ound [address] [place] [address] Elva Olivares, DO 2 Magda MCMILLAN [facility] [address] [place] [address] Discharge Disposition: Discharged to home or Selfcare 02/17/2025 1:40 PM CDT Hospital [facility] Periop [address] [place] [address] Cabrera Yadav MD #[address] [address] 02/17/2025 1:40 PM CDT - 02/17/2025 3:40 PM CDT [facility] Per[facility] [address] [place] [address] Cabrera Yadav MD #[address] [address] CYSTOSCOPY AND LITHOLAPAXY, PATIENT WILL NEED A PAUL LIFT 03/02/2025 8:40 AM CDT Office Visit [facility] Medical Group Family [facility] #2 [place] [address] Elva Olivares DO 2 Magda MCMILLAN [facility] [address] [place] [address] Scheduled Procedures Name Priority Associated Diagnoses Date/Ti me CYSTOSCOPY BLADDER STONE BLADDER STONES 02/17/2025 1:40 PM CDT documented as of this encounter Visit Diagnoses Not on filedocumented in this encounter Additional Health Concerns Assessment Noted Time PHQ-9 Depression Total Score: 0 08/15/20 10:00 AM CDT documented as of this encounter Care Teams Physician/Allergy/Immunology Relationship Specialty Start Date End Date Victoriano Reid MD PCP - General Family Medicine 06/19/19 06/29/24 Elva Olivares DO 2 [facility] [facility] [facility] [address] [place] [address] PCP - General Family Medicine 07/01/24 Malissa Joe RN [place] Nurse Engraved Roller Inspector 12/03/23 12/03/23 Malissa Joe RN [place] Nurse Engraved Roller Inspector 12/05/23 12/05/23 Hinton, [facility] [place] Goldsmith Apprentice Engraved Roller Inspector 11/03/24 Cabrera Yadav MD #[address] [address] Consulting Physician Urology 11/07/24 documented as of this encounter
--- OUTSIDE RECORDS SUMMARY | 2025-01-16 18:58 | XMS_ITS | Encounter Summary ---
Author Organization [facility] Address [address] [place] [address] Phone Care Team Providers Care Cigarette Examiner Name Role Phone Victoriano Reid MD Primary Care Provider Malissa Joe RN Unavailable Unavailable Malissa Joe RN Unavailable Unavailable Elva Olivares DO Primary Care Provider [phone] [place] CARTON REPAIRER Unavailable UnaCabrera Nevarez MD Unavailable [phone] Encounter Details Date Type Department Care Team (Late st Contact Info) Description 08/03/2020 Lab Requisition [facility] Laboratory Services [address] [place] [id number] Victoriano Reid MD #[address] [place] [address] Type 2 diabetes mellitus with hyperglycemia (HCC) [...] Description 01/21/2025 10:30 AM CDT Clinical Support [facility] UROLOGY #[address] [place] [address] NurseKen Urology 02/02/2025 11:00 AM CDT Appointment [facility] CT [address] [facility] [place] [address] Cabrera Yadav MD #2 [facility] [address] [place] [address] Discharge Disposition: Discharged to home or Selfcare 02/10/2025 3:00 PM CDT Appointment [facility] Mammography [address] [place] [address] Elva Olivares, DO 2 [facility] [address] [place] [address] Discharge Disposition: Discharged to home or Selfcare 02/10/2025 4:00 PM CDT Appointment [facility] Ultrasound [address] [facility] [place] [address] Elva Olivares, DO 2 [facility] [address] [place] [address] Discharge Disposition: Discharged to home or Selfcare 02/17/2025 1:40 PM CDT Hospital Encounter [facility] Periop [address] [facility] [place] [address] Cabrera Yadav MD #2 [facility] [address] [place] [address] 02/17/2025 1:40 PM CDT - 02/17/2025 3:40 PM CDT Surgery [facility] Periop [address] [place] [address] Cabrera Yadav MD #2 [facility] [address] [place] [address] CYSTOSCOPY AND LITHOLAPAXY, PATIENT WILL NEED A PAUL LIFT 03/02/2025 8:40 AM CDT Office Visit [facility] - Family Medicine - [place] [address] [place] [address] Elva Olivares, DO 2 [facility] [address] [place] [address] Scheduled Procedures Name Priority Associated Diagnoses Date/Ti [...] RESULTS STAPHYLOCOCCUS AUREUS 08/06/2020 9:58 AM CDT [facility] CULTURE RESULTS ALSO MIXED GROWTH OF DISTAL URETHRA CONTAMINANTS. 08/06/2020 9:58 AM CDT [facility] Urine Non-Phlebotomy Collection / Unknown [...] MICROBIOLOGY - GENERAL ORDERABLE S Final Result [facility] [address] [place] [address], * THYROID SCREEN WITH REFLEX (08/03/2020 2:00 PM CDT) Pathologist [facility] TSH 2.480 0.270 - 4.200 mIU/L 08/03/2020 5:35 PM CDT [facility] Blood Venipuncture / Unknown 08/03/2020 2:00 PM CDT 08/03/2020 4:54 PM CDT us Victoriano Reid MD CHEMISTRY ORDERABLES Final Resul t [facility] #[address] [place] [address] * (ABNORMAL) CBC WITH AUTO DIFFERENTIAL (08/03/2020 2:00 PM CDT) Pathologist [facility] WBC 8.32 4.00 - 12.00 10(3)/mcL 08/03/2020 5:02 PM CDT [facility] RBC 4.20 3.80 - 5.30 10(6)/mcL 08/03/2020 5:02 PM CDT [facility] HEMOGLOBIN (HGB) 13.5 12.0 - 15.8 g/dL 08/03/2020 5:02 PM CDT [facility] HEMATOCRIT (HCT) 41.8 36.0 - 47.0 % 08/03/2020 5:02 PM CDT [facility] MCV 99.5(H) 82.0 - 96.0 fL 08/03/2020 5:02 PM CDT [facility] MCH 32.1 26.0 - 34.0 pg 08/03/2020 5:02 PM CDT [facility] MCHC 32.3 31.0 - 36.0 g/dL 08/03/2020 5:02 PM CDT [facility] PLATELET COUNT 191 140 - 440 10(3)/mcL 08/03/2020 5:02 PM CDT [facility] RDW 14.8 11.8 - 15.5 % 08/03/2020 5:02 PM CDT [facility] MPV 11.2 9.7 - 12.4 fL 08/03/2020 5:02 PM CDT [facility] NEUTROPHILS 59.8 47.0 - 73.0 % 08/03/2020 5:02 PM CDT [facility] LYMPHOCYTES 29.7 18.0 - 42.0 % 08/03/2020 5:02 PM CDT [facility] MONOCYTES 6.3 4.0 - 12.0 % 08/03/2020 5:02 PM CDT [facility] EOSINOPHILS 3.5 0.0 - 5.0 % 08/03/2020 5:02 PM CDT [facility] BASOPHILS 0.7 0.0 - 1.0 % 08/03/2020 5:02 PM CDT [facility] ABSOLUTE NEUTROPHILS 4.98 1.60 - 7.70 10(3)/mcL 08/03/2020 5:02 PM CDT [facility] ABSOLUTE LYMPHOCYTES 2.47 1.30 - 3.20 10(3)/mcL 08/03/2020 5:02 PM CDT [facility] ABSOLUTE MONOCYTES 0.52 0.20 - 1.00 10(3)/mcL 08/03/2020 5:02 PM CDT [facility] ABSOLUTE EOSINOPHIL 0.29 0.00 - 0.40 10(3)/mcL 08/03/2020 5:02 PM CDT [facility] ABSOLUTE BASOPHILS 0.06 0.00 - 0.10 10(3)/mcL 08/03/2020 5:02 PM CDT [facility] NRBC PER 100 WBC 0 08/03/20 20 5:02 PM CDT [facility] Blood Venipuncture / Unknown 08/03/2020 2:00 PM CDT 08/03/2020 4:53 PM CDT us Victoriano Reid MD HEMATOLOGY ORDERABLES Final Resu lt [facility] #[address] [place] [address] * (ABNORMAL) UR MICROALBUMIN/CREATININE RATIO RANDOM (08/03/2020 2:00 PM CDT) [facility] RAN UR MICROALBUMIN <=1.20 <=2.00 mg/dL 08/03/2020 6:27 PM CDT [facility] CREATININE URINE 9.5(L) 28.0 - 217.0 mg/dL 08/03/2020 6:27 PM CDT [facility] ALB/CREAT RATIO <=126(H) 1 - 30 mg/g CRE 08/03/2020 6:27 PM CDT [facility] Urine Non-Phlebotomy Collection / Unknown 08/03/2020 2:00 PM CDT 08/03/2020 6:14 PM CDT Victoriano Reid MD URINE ORDERABLES Final Result [facility] [address] [place] [address] * (ABNORMAL) URINALYSIS REFLEX IF INDICATED BY ABNORMAL RESULTS (08/03/2020 2:00 PM CDT) [facility] SPECIFIC GRAVITY 1.005 1.003 - 1.030 08/03/2020 5:24 PM CDT [facility] URINE PH 7.0 5.0 - 9.0 08/03/2020 5:24 PM CDT [facility] WBC ESTERASE 500 /uL(A) Negative 08/03/2020 5:24 PM CDT [facility] NITRITE Positive(A) Negative 08/03/2020 5:24 PM CDT [facility] PROTEIN, RANDOM URINE Negative Negative 08/03/2020 5:24 PM CDT [facility] URINE GLUCOSE, QUAL Negative Negative 08/03/2020 5:24 PM CDT [facility] URINE KETONES Negative Negative 08/03/2020 5:24 PM CDT [facility] UROBILINOGEN Normal Normal mg/dL 08/03/2020 5:24 PM CDT [facility] URINE BILIRUBIN Negative Negative 0 5:24 PM CDT [facility] URINE BLOOD Negative Negative josefa/ul 08/03/2020 5:24 PM CDT [facility] URINALYSIS COLOR Yellow 08/03/2020 5:24 PM CDT [facility] URINALYSIS CLARITY Slightly Cloudy 08/03/2020 5:24 PM CDT [facility] WBC (Urine) 21-50(A) Negative, 0-5 /hpf 08/03/2020 5:24 PM CDT [facility] URINE RBC'S 0-2 Negative, 0-2 /hpf 08/03/2020 5:24 PM CDT [facility] EPITHELIAL CELLS Occasional /lpf 08/03/2020 5:24 PM CDT [facility] BACTERIA, URINE Few(A) Negative /hpf 08/03/2020 5:24 PM CDT [facility] Urine Non-Phlebotomy Collection / Unknown 08/03/2020 2:00 PM CDT 08/03/2020 5:01 PM CDT us Victoriano Reid MD URINE ORDERABLES Final Result Performing Organization Address City/[facility]/ZIP Co de Phone Number [facility] [address] [place] [address] * THYROXINE (T4) FREE (08/03/2020 2:00 PM CDT) T4 FREE 1.0 0.9 - 1.7 ng/dL 08/03/2020 5:35 PM CDT [facility] Blood Venipuncture / Unknown 08/03/2020 2:00 PM CDT 08/03/2020 4:55 PM CDT us Victoriano Reid MD CHEMISTRY ORDERABLES Final Resul t [facility] [address] [place] [address] * (ABNORMAL) HEMOGLOBIN A1C W/ ESTIMATED GLUCOSE (08/03/2020 2:00 PM CDT) Pathologist [facility] HGB-A1C 6.1(H) 4.0 - 6.0 % 08/03/2020 5:29 PM CDT [facility] Est Average Glucose 128.4 mg/dL 08/03/2020 5:29 PM CDT [facility] Blood Venipuncture / Unknown 08/03/2020 2:00 PM CDT 08/03/2020 5:14 PM CDT Narrative [facility] - 08/03/2020 5:29 PM CDT HEMOGLOBIN A1C: DIABETIC PATIENTS: WELL-CONTROLLED: 6.2 - 7.0 INTERMEDIATE WELL-CONTROLLED: 7.0 - 9.0 POORLY-CONTROLLED: >9.0 us Victoriano Reid MD CHEMISTRY ORDERABLES Final Resul t [facility] [address] [place] [address] * (ABNORMAL) LIPID PANEL (08/03/2020 2:00 PM CDT) CHOLESTEROL 149 <=200 mg/dL 08/03/2020 5:35 PM CDT [facility] TRIGLYCERIDES 138 <150 mg/dL 08/03/2020 5:35 PM CDT [facility] HDL CHOLESTEROL 33.9(L) >40 mg/dL 0 5:35 PM CDT [facility] LDL 88 5 - 130 mg/dL 08/03/2020 5:35 PM CDT [facility] VLDL 28 5 - 55 mg/dL 08/03/2020 5:35 PM CDT [facility] CHOL/HDL RATIO 4.4 0.0 - 4.4 08/03/2020 5:35 PM CDT [facility] NON-HDL CHOLESTEROL 115.1 <130 mg/dL 08/03/2020 5:35 PM CDT [facility] LIPID FASTING 08/03/2020 5:35 PM CDT [facility] Blood Venipuncture / Unknown 08/03/2020 2:00 PM CDT 08/03/2020 4:55 PM CDT Victoriano Reid MD CHEMISTRY ORDERABLES Final Resul t [facility] [address] [place] [address] * (ABNORMAL) CMP (COMPREHENSIVE METABOLIC PANEL) (08/03/2020 2:00 PM CDT) SODIUM 138 136 - 144 mmol/L 08/03/2020 5:35 PM CDT [facility] POTASSIUM 4.2 3.5 - 5.1 mmol/L 08/03/2020 5:35 PM CDT [facility] CHLORIDE 101 100 - 110 mmol/L 08/03/2020 5:35 PM CDT [facility] CO2, VENOUS 29 22 - 32 mmol/L 08/03/2020 5:35 PM CDT [facility] ANION GAP 12.2 8.0 - 20.0 mmol/L 08/03/2020 5:35 PM CDT [facility] GLUCOSE 126(H) 70 - 99 mg/dL 08/03/2020 5:35 PM CDT [facility] BUN 13 8 - 23 mg/dL 08/03/2020 5:35 PM CDT [facility] CREATININE, BLOOD 0.50(L) 0.60 - 1.10 mg/dL 08/03/2020 5:35 PM CDT [facility] BUN/CREATININE RATIO 26(H) 12 - 20 ratio 08/03/2020 5:35 PM CDT [facility] TOTAL PROTEIN 6.2 6.0 - 8.3 g/dL 08/03/2020 5:35 PM CDT [facility] ALBUMIN 3.9 3.5 - 5.2 g/dL 08/03/2020 5:35 PM CDT [facility] Comment: The colormetric methods used for the determination of Albumin may lead to falsely elevated test results in patients suffering from renal failure or insufficiency due to interference with other proteins. A/G RATIO 1.7 1.0 - 2.0 08/03/2020 5:35 PM CDT [facility] CALCIUM 9.4 8.9 - 10.3 mg/dL 08/03/2020 5:35 PM CDT [facility] T BILI <=0.2 <=1.2 mg/dL 08/03/2020 5:35 PM CDT [facility] SGOT (AST) 12 <=32 U/L 08/03/2020 5:35 PM CDT [facility] SGPT (ALT) 9 <=33 U/L 08/03/2020 5:35 PM CDT [facility] ALKALINE PHOSPHATASE 60 35 - 105 U/L 08/03/2020 5:35 PM CDT [facility] GFR, EST. NONAFRICAN >60 >=60 08/03/2020 5:35 PM CDT [facility] GFR, EST. >60 >=60 020 5:35 PM CDT [facility] Comment: Creatinine Clearance is the preferred criteria for selecting drug dose adjustments in renally impaired patients. The GFR is provided as additional pertinent clinical information. GFR is reported in mL/min/1.73 sq m. 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 06/05/2019 04/15/2021 7:28 AM CDT Assessment Noted Time PHQ-9 Depression Total Score: 0 10/24/19 20 11:16 AM BUFFING WHEEL INSPECTOR documented as of this encounter Care Teams Cigarette Examiner Relationship Specialty Start Date End Date Victoriano Reid MD PCP - General Family Medicine 06/19/19 06/29/24 Elva Olivares DO 2 [facility] [address] [place] [address] PCP - General Family Medicine 07/01/24 Malissa Joe RN [place] Nurse House Designer 12/03/23 12/03/23 Malissa Joe RN [place] Nurse House Designer 12/05/23 12/05/23 [place] LSW [place] Sales Technician Home Theater House Designer 11/03/24 Cabrera Yadav MD #[address] [facility] [facility] [address] [place] [address] Consulting Physician Urology 11/07/24 documented as of this encounter
--- OUTSIDE RECORDS SUMMARY | 2025-01-16 18:58 | XMS_ITS | CONTINUITY OF CARE DOCUMENT ---
Author Name tram ugalde Address Unknown Organization [facility] Address [address] [facility] [address] [place] [address] Phone [phone] Care Team Providers Care Career Developer Name Role Phone Nicki Vickers MD Unavailable Victoriano Reid MD Unavailable [phone] Victoriano Reid MD Unavailable [phone] INSURANCE PROVIDERS Payer name Policy type / Coverage type [place] red democrat [place] MEDICAID Medicaid [id number]
--- OUTSIDE RECORDS SUMMARY | 2025-01-16 18:58 | XMS_ITS | Encounter Summary ---
Author Organization [facility] Address [address] [facility] [address] [facility] [place] [address] Phone Care Team Providers Care Head Of Human Resources Name Role Phone Victoriano Reid MD Primary Care Provider [phone] Elva Olivares DO Primary Care Provider [phone] [place] INSULATION BATTING MACHINE OPERATOR Unavailable Unavai Cabrera Dodge MD Unavailable [phone] Encounter Details Date Type Department Care Team (Late st Contact Info) Description 05/27/2024 Lab Requisition [facility] Laboratory Services 1 [place] [address] Singh Myrick, KARISSA, PRINTING FILM STRIPPER #2 [place] [address] Type 2 diabetes mellitus without complications (HCC); Other senior living (current) drug therapy Social History Tobacco Use Types Packs/Day Years Used Date Smoking Tobacco: Every Day Cigarettes 2 15 Smokeless Tobacco: Never Alcohol Use Standard Drinks/Week Comments Not Currently 0 (1 standard drink = 0.6 oz pur e alcohol) [facility] Utilities Answer Date Recorded In the [...] attend chur ch or quaker services? Never 04/15/2024 Do you belong to [...] 0 12/14 [facility] - Occupational Stress Questionnaire Answer Date [...] place to sleep or slept in a nursing home (including now)? No 12/20/2023 Housing Stability Vital Sign Answer Saleem e Recorded In the last 12 months, was t here a time when you were not able to pay the mortgage or rent on time? No 04/15/2024 Number of Times Moved in the Last Year Not on fi le 04/15/2024 At any time in the past 12 m [facility], were you homeless or living in a nursing home (including now)? No 04/15/2024 Education Answer [...] Clinical Support [facility] UROLOGY #[address] [place] [address] Nurse, Ken Urology 02/02/2025 11:00 AM CDT Appointment [facility] [address] [place] [address] Cabrera Yadav MD #[address], MARY [address] [place] [address] Discharge Disposition: Discharged to home or Selfcare 02/10/2025 3:00 PM CDT Appointment [facility] Mammography [address] [place] [address] Elva Olivares, DO 2 [facility] [address] [facility] [address] [place] [address] Discharge Disposition: Discharged to home or Selfcare 02/10/2025 4:00 PM CDT Appointment [facility] Ultrasound 1 [facility] [place] [address] Elva Olivares, DO 2 [facility] [address] [place] [address] Discharge Disposition: Discharged to home or Selfcare 02/17/2025 1:40 PM CDT [facility] 1 [facility] [place] [address] Cabrear Yadav MD #[address] [address] 02/17/2025 1:40 PM CDT - 02/17/2025 3:40 PM CDT [facility] 1 [facility] [place] [address] Cabrera Yadav MD #[address] [address] CYSTOSCOPY AND LITHOLAPAXY, PATIENT WILL NEED A PAUL LIFT 03/02/2025 8:40 AM CDT Office Visit [facility] Medical Group - Family Medicine [facility] #2 [place] [address] Elva Olivares, DO 2 [facility] MARY OJEDA. [address] [place] [address] Scheduled Procedures Name Priority Associated Diagnoses Date/Ti me CYSTOSCOPY BLADDER STONE BLADDER STONES 02/17/2025 1:40 PM CDT documented as of this encounter Procedures Procedure Name Priority Date/Time Associated Diagnosis Comments CBC WITH AUTO DIFFERENTIAL Routine 05/27/2024 1:00 PM CDT Type 2 diabetes mellitus without complications (HCC) Other senior living (current) drug therapy UR MICROALBUMIN/CREATIN INE RATIO RANDOM Routine 05/27/2024 1:00 PM CDT Type 2 diabetes mellitus without complications (HCC) Other long term care administrator (current) drug therapy LIPID PANEL Routine 05/27/2024 1:00 PM CDT Type 2 diabetes mellitus without complications (HCC) Other senior living (current) drug therapy CMP (COMPREHENSIVE METABOLIC PANEL) Routine 05/27/2024 1:00 PM CDT Type 2 diabetes mellitus without complications (HCC) Other long term care administrator (current) drug therapy COMPLETE BLOOD COUNT (CBC) WITH DIFF Routine 05/27/2024 1:00 PM CDT Type 2 diabetes mellitus without complications (HCC) Other senior living (current) drug therapy documented in this encounter Results * (ABNORMAL) CBC WITH AUTO DIFFERENTIAL (05/27/2024 1:00 PM CDT) WBC 9.90 4.00 - 12.00 10(3)/mcL 05/27/2024 2:52 PM CDT [facility] RBC 4.48 3.80 - 5.30 10(6)/mcL 05/27/2024 2:52 PM CDT [facility] HEMOGLOBIN (HGB) 14.8 12.0 - 15.8 g/dL 05/27/2024 2:52 PM CDT [facility] HEMATOCRIT (HCT) 45.0 36.0 - 47.0 % 05/27/2024 2:52 PM CDT [facility] MCV 100.4(H) 82.0 - 96.0 fL 05/27/2024 2:52 PM CDT [facility] MCH 33.0 26.0 - 34.0 pg 05/27/2024 2:52 PM CDT [facility] MCHC 32.9 31.0 - 36.0 g/dL 05/27/2024 2:52 PM CDT [facility] PLATELET COUNT 160 140 - 440 10(3)/mcL 05/27/2024 2:52 PM CDT [facility] RDW 14.9 11.8 - 15.5 % 05/27/2024 2:52 PM CDT [facility] MPV 12.0 9.7 - 12.4 fL 05/27/2024 2:52 PM CDT [facility] NEUTROPHILS 54.2 47.0 - 73.0 % 05/27/2024 2:52 PM CDT [facility] LYMPHOCYTES 35.4 18.0 - 42.0 % 05/27/2024 2:52 PM CDT [facility] MONOCYTES 7.1 4.0 - 12.0 % 05/27/2024 2:52 PM CDT [facility] EOSINOPHILS 2.5 0.0 - 5.0 % 05/27/2024 2:52 PM CDT [facility] BASOPHILS 0.8 0.0 - 1.0 % 05/27/2024 2:52 PM CDT [facility] ABSOLUTE NEUTROPHILS 5.37 1.60 - 7.70 10(3)/mcL 05/27/2024 2:52 PM CDT [facility] ABSOLUTE LYMPHOCYTES 3.50(H) 1.30 - 3.20 10(3)/mcL 05/27/2024 2:52 PM CDT [facility] ABSOLUTE MONOCYTES 0.70 0.20 - 1.00 10(3)/mcL 05/27/2024 2:52 PM CDT [facility] ABSOLUTE EOSINOPHIL 0.25 0.00 - 0.40 10(3)/mcL 05/27/2024 2:52 PM CDT [facility] ABSOLUTE BASOPHILS 0.08 0.00 - 0.10 10(3)/mcL 05/27/2024 2:52 PM CDT [facility] NRBC PER 100 WBC 0 05/27/20 2:52 PM CDT [facility] Blood No Phlebotomy Charged / Unknown 05/27/2024 1:00 PM CDT 05/27/2024 2:30 PM CDT Singh Myrick APRN, CNP HEMATOLOGY ORDER SERVANDO Final Result Performing Organization Address [facility] Co de Phone Number [facility] #[address] [place] [address] * (ABNORMAL) UR MICROALBUMIN/CREATININE RATIO RANDOM (05/27/2024 1:00 PM CDT) RAN UR MICROALBUMIN 0.89 mg/dL 05/27/2024 3:00 PM CDT [facility] Comment:No reference range h as been established. Consider Clinical Correlation. CREATININE URINE 7.4 mg/dL 05/27/20 3:00 PM CDT [facility] Comment:No reference range h as been established. Consider Clinical Correlation. ALB/CREAT RATIO 120(H) 0 - 30 mg/g CRE 05/27/2024 3:00 PM CDT [facility] Urine Non-Phlebotomy Collection / Unknown 05/27/2024 1:00 PM CDT 05/27/2024 2:30 PM CDT Singh Myrick APRN, LORI URINE ORDERABLES Final Result Performing Organization Address [facility]/ZIP Co de Phone Number [facility] #[address] [place] [address] * LIPID PANEL (05/27/2024 1:00 PM CDT) CHOLESTEROL 158 <200 mg/dL 05/27/2024 3:21 PM CDT [facility] TRIGLYCERIDES 95 <150 mg/dL 05/27/2024 3:21 PM CDT [facility] HDL CHOLESTEROL 42 >40 mg/dL 3:21 PM CDT [facility] LDL 97 <130 mg/dL 05/27/2024 3:21 PM CDT [facility] VLDL 19 10 - 50 mg/dL 05/27/2024 3:21 PM CDT [facility] CHOL/HDL RATIO 3.8 0.0 - 4.4 05/27/2024 3:21 PM CDT [facility] NON-HDL CHOLESTEROL 116 <130 mg/dL 05/27/2024 3:21 PM CDT [facility] Blood No Phlebotomy Charged / Unknown 05/27/2024 1:00 PM CDT 05/27/2024 2:30 PM CDT us Singh Myrick APRN, PRINTING FILM STRIPPER CHEMISTRY ORDERA BLES Final Result [facility] #[address] [place] [address] * (ABNORMAL) CMP (COMPREHENSIVE METABOLIC PANEL) (05/27/2024 1:00 PM CDT) SODIUM 141 136 - 145 mmol/L 05/27/2024 3:21 PM CDT [facility] POTASSIUM 4.1 3.5 - 5.1 mmol/L 05/27/2024 3:21 PM CDT [facility] CHLORIDE 107 98 - 107 mmol/L 05/27/2024 3:21 PM CDT [facility] CO2, VENOUS 26 22 - 30 mmol/L 05/27/2024 3:21 PM CDT [facility] ANION GAP 12.1 <18.0 mmol/L 05/27/2024 3:21 PM T [facility] GLUCOSE 128(H) 70 - 99 mg/dL 05/27/2024 3:21 PM [facility] BUN 16 10 - 20 mg/dL 05/27/2024 3:21 PM [facility] CREATININE, BLOOD 0.72 0.60 - 1.00 mg/dL 05/27/2024 3:21 PM [facility] BUN/CREATININE RATIO 22(H) 12 - 20 ratio 05/27/2024 3:21 PM [facility] TOTAL PROTEIN 7.0 6.3 - 8.2 g/dL 05/27/2024 3:21 PM [facility] ALBUMIN 4.0 3.5 - 5.0 g/dL 05/27/2024 3:21 PM [facility] A/G RATIO 1.3 1.0 - 2.2 05/27/2024 3:21 PM [facility] CALCIUM 9.7 8.7 - 10.5 mg/dL 05/27/2024 3:21 PM [facility] T BILI 0.3 0.2 - 1.2 mg/dL 05/27/2024 3:21 PM [facility] SGOT (AST) 15 5 - 34 U/L 05/27/2024 3:21 PM [facility] SGPT (ALT) 9 0 - 55 U/L 05/27/2024 3:21 PM [facility] ALKALINE PHOSPHATASE 66 40 - 150 U/L 05/27/2024 3:21 PM [facility] GFR, ESTIMATED >60 >=60 05/27/2024 3:21 PM [facility] Comment: Creatinine Clearance is the preferred criteria for selecting drug dose adjustments in renally impaired patients. The GFR is provided as additional pertinent clinical information. GFR is reported in mL/min/1.73 sq m. Calculation based on the Chronic Kidney Disease Epidemiology Collaboration (CKD- EPI) equation refit without adjustment for race. GFR, EST. >60 >=60 024 3:21 PM CDT [facility] GFR, EST. NONAFRICAN >60 >=60 05/27/2024 3:21 PM CDT [facility] Blood No Phlebotomy Charged / Unknown 05/27/2024 1:00 PM CDT 05/27/2024 2:30 PM CDT us Singh Myrick DEVELOPMENTAL SERVICES WORKER, PRINTING FILM STRIPPER CHEMISTRY ORDERA BLES Final Result [facility] #[address] [place] [address] documented in this encounter Visit Diagnoses Diagnosis Type 2 diabetes mellitus without complications Type II or unspecified type diabetes mellitus without mention of complication, not stated as uncontrolled Other senior living (current) drug therapy documented in this encounter Additional Health Concerns Assessment Noted Time PHQ-9 Depression Total Score: 0 08/15/20 21 10:00 AM CDT documented as of this encounter Care Teams Head Of Human Resources Relationship Specialty Start Date End Date Victoriano Reid MD PCP - General Family Medicine 06/19/19 06/29/24 Elva Olivares DO 2 [facility] [address] [facility] [address] [place] [address] PCP - General Family Medicine 07/01/24 [place] [facility] Trimming Machine Operator Residential Treatment Counselor 11/03/24 Cabrera Yadav MD #2 [facility] [address] [place] [address] Consulting Physician Urology 11/07/24 documented as of this encounter
--- OUTSIDE RECORDS SUMMARY | 2025-01-16 18:58 | XMS_ITS | Encounter Summary ---
Author Organization [facility] Address [address] [place] [address] Phone Care Team Providers Care Management Manager Name Role Phone Victoriano Reid MD Primary Care Provider [phone] Malissa Joe RN Unavailable Unavailable Malissa Joe RN Unavailable Unavailable Elva Oilvares DO Primary Care Provider [phone] [place] HUMAN RESOURCE MANAGEMENT INSTRUCTOR Unavailable Unaabdirizaki Cabrera Dodge MD Unavailable [phone] Encounter Details Date Type Department Care Team (Late st Contact Info) Description 10/04/2021 Lab Requisition [facility] Laboratory Services 1 [place] [id number] Victoriano Reid MD #1 [place] [address] Urinary tract infection, site not specified Social [...] Description 01/21/2025 10:30 AM CDT Clinical Support [facility] UROLOGY #2 [place] [address] Nurse, Ken Urology 02/02/2025 11:00 AM CDT [facility] [address] [place] [address] Cabrera Yadav MD #2 [facility] [address] [place] [address] Discharge Disposition: Discharged to home or Selfcare 02/10/2025 3:00 PM CDT [facility] M[facility] 1 [place] [address] Elva Olivares, DO 2 [facility] [address] [place] [address] Discharge Disposition: Discharged to home or Selfcare 02/10/2025 4:00 PM CDT [facility]ment [facility] Ultrasound [address] [place] [address] Elva Olivares, DO 2 [facility] [address] [place] [address] Discharge Disposition: Discharged to home or Selfcare 02/17/2025 1:40 PM CDT Hospital [facility] Periop 1 [facility] [place] [address] Cabrera Yadav MD #2 [facility] [address] [place] [address] 02/17/2025 1:40 PM CDT - 02/17/2025 3:40 PM CDT Surgery [facility] Periop [address] [address] Cabrera Yadav MD #2 [facility] [address] [place] [address] CYSTOSCOPY AND LITHOLAPAXY, PATIENT WILL NEED A PAUL LIFT 03/02/2025 8:40 AM CDT Office Visit [facility] Medical Group - Family Medicine - [place] #2 [place] [address] Elva Olivares, DO 2 [facility]. [address] [place] [address] Scheduled Procedures Name Priority Associated Diagnoses Date/Ti me CYSTOSCOPY BLADDER STONE BLADDER STONES 02/17/2025 1:40 PM CDT documented as of this encounter Procedures Procedure Name Priority Date/Time Associated Diagnosis Comments URINALYSIS REFLEX IF INDICATED BY ABNORMAL RESULTS Routine 10/04/2021 2:30 AM CONTINUITY CLERK Urinary tract infection, site not specified CULTURE, URINE Routine 10/04/2021 2:30 AM CONTINUITY CLERK Urinary tract infection, site not specified documented in this encounter Results * CULTURE, URINE (10/04/2021 2:30 AM CONTINUITY CLERK) CULTURE RESULTS MIXED GROWTH OF 3 OR MORE ORGANISMS, PROBABLE COLLECTION CONTAMINATION, SUGGEST REPEAT URINE CULTURE. 10/05/2021 6:24 PM CONTINUITY CLERK [facility] Urine Non-Phlebotomy Collection / Unknown 10/04/2021 2:30 AM CONTINUITY CLERK 10/04/2021 4:51 PM CONTINUITY CLERK us Victoriano Reid MD MICROBIOLOGY - GENERAL ORDERABLE S Final Result [facility] [address] [place] [address], * (ABNORMAL) URINALYSIS REFLEX IF INDICATED BY ABNORMAL RESULTS (10/04/2021 2:30 AM CONTINUITY CLERK) SPECIFIC GRAVITY 1.015 1.003 - 1.030 10/04/2021 5:12 PM CONTINUITY CLERK [facility] URINE PH 8.0 5.0 - 9.0 10/04/2021 5:12 PM CONTINUITY CLERK [facility] WBC ESTERASE 500 /uL(A) Negative 10/04/2021 5:12 PM [facility] NITRITE Positive(A) Negative 10/04/2021 5:12 PM [facility] PROTEIN, RANDOM URINE 100 mg/dL(A) Negative 10/04/2021 5:12 PM [facility] URINE GLUCOSE, QUAL Negative Negative 10/04/2021 5:12 PM CONTINUITY CLERK [facility] URINE KETONES Negative Negative 10/04/2021 5:12 PM CONTINUITY CLERK [facility] UROBILINOGEN Normal Normal mg/dL 10/04/2021 5:12 PM [facility] URINE BLOOD 250 /uL(A) Negative josefa/ul 10/04/2021 5:12 PM [facility] URINALYSIS COLOR Yasmine 10/04/20 5:12 PM [facility] URINALYSIS CLARITY Very Cloudy 10/04/2021 5:12 PM [facility] WBC (Urine) Packed(A) Negative, 0-5 /hpf 10/04/2021 5:12 PM [facility] URINE RBC'S Packed(A) Negative, 0-2 /hpf 10/04/2021 5:12 PM [facility] EPITHELIAL CELLS Small amount /lpf 2020 5:12 PM [facility] BACTERIA, URINE Packed(A) Negative /hpf 10/04/2021 5:12 PM [facility] Urine Non-Phlebotomy Collection / Unknown 10/04/2021 2:30 AM CONTINUITY CLERK 10/04/2021 4:51 PM CONTINUITY CLERK Victoriano Reid MD URINE ORDERABLES Final Result [facility] #1 [place] [address] documented in this encounter Visit Diagnoses Diagnosis Urinary tract infection, site not specified documented in this encounter Additional Health Concerns Assessment Noted Time PHQ-9 Depression Total Score: 0 08/15/20 21 10:00 AM CDT documented as of this encounter Care Teams Management Manager Relationship Specialty Start Date End Date Victoriano Reid MD PCP - General Family Medicine 06/19/19 06/29/24 Elva Olivares DO 2 [facility]. [address] [place] [address] PCP - General Family Medicine 07/01/24 Malissa Joe, RN [place] Nurse Freight Claim Investigator 12/03/23 12/03/23 Malissa Joe, RN [place] Nurse Freight Claim Investigator 12/05/23 12/05/23 [place], HUMAN RESOURCE MANAGEMENT INSTRUCTOR [place] Loan Approver Freight Claim Investigator 11/03/24 Cabrera Yadav MD #2 [facility] [address] [place] [address] Consulting Physician Urology 11/07/24 documented as of this encounter
--- OUTSIDE RECORDS SUMMARY | 2025-01-16 18:58 | XMS_ITS | Clinical Summary ---
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 -TTE shows grade 1 diastolic dysfunction and normal LVEF - starting [facility] inpatient today Assessment & Plan (03/11/2019 [...] diastolic dysfunction and normal LVEF - starting [facility] inpatient tomorrow Vitamin D deficiency 03/03/2019 [...] when in bed. - Aggressive bowel regimen -arimjo present for neurogenic bladder Assessment & Plan [...] Discharge plans for acute inpatient rehab at [facility]. - No weight bearing restrictions, [...] Discharge plans for acute inpatient rehab at [facility]. - No weight bearing restrictions, [...] certainly need placement for aggressive PT/[place]. [place]. - No weight bearing restrictions, [...] certainly need placement for aggressive PT/OT. [place]. - No weight bearing restrictions, [...] certainly need placement for aggressive PT/OT. [place]. - No weight bearing restrictions, [...] certainly need placement for aggressive PT/OT. [place]. - No weight bearing restrictions, [...] today, please call Janice Adams NP at [phone]. If after hours, please contact the Diabetes Fellow at [phone]. Assessment & Plan (03/14/2019 10:32 AM CDT): [...] today, please call Crista Montgomery NP at [phone]. If after hours, please contact the Diabetes Fellow at [phone]. Assessment & Plan (03/12/2019 10:31 AM CDT): [...] today, please call Janice Adams NP at [phone]. If after hours, please contact the Diabetes Fellow at [phone]. Assessment & Plan (03/05/2019 6:21 PM CDT): [...] after the previous Dexamethasone wears off -monitor [facility] Patient has been seen by CDE. [...] were discussed with the primary team. Call [phone] with questions on day of service only. If after hours or weekends, please contact the Diabetes Fellow at [phone], option #1 Assessment & Plan (02/28/2019 12:17 [...] were discussed with the primary team. Call [phone] with questions on day of service only. If after hours or weekends, please contact the Diabetes Fellow at [phone], option #1 Assessment & Plan (02/26/2019 4:31 [...] today, please call Crista Montgomery NP at [phone]. If after hours, please contact the Diabetes Fellow at [phone]. Assessment & Plan (02/24/2019 10:05 AM CDT): -New diagnosis. A1c 8.9 -LDSSI. DM educator c/s, conveyor attendant -Monitor BG with decadron Resolved Problems Problem [...] -TTE (04/16) with EF 74%, mild TR, OK; G1DD, normal RV size and function. -if [...] Comments Blood Pressure 111/76 09/03/2019 12:16 PM FORESTRY EXTENSION SPECIALIST Pulse 81 09/03/2019 12:16 PM FORESTRY EXTENSION SPECIALIST Temperature 36.4 C (97.5 F) 09/03/2019 12:16 PM FORESTRY EXTENSION SPECIALIST Respiratory Rate 16 09/03/2019 12:1 6 PM FORESTRY EXTENSION SPECIALIST Oxygen Saturation 100% 09/03/2019 12: 16 PM FORESTRY EXTENSION SPECIALIST Inhaled Oxygen Concentration - - Weight 79.8 kg (176 lb) 09/03/2019 12:1 6 PM FORESTRY EXTENSION SPECIALIST weight -verbal per patient Height 165.1 cm (5' 5 ) 09/03/2019 12:1 6 PM FORESTRY EXTENSION SPECIALIST Body Mass Index 29.29 09/03/2019 12:16 PM FORESTRY EXTENSION SPECIALIST Plan of Treatment Health Maintenance Due Date [...] 12/13/2019 06/13/2019, 02/23/2019 Well Visit 65+ 2022 Lipid Panel 05/27/2025 05/27/2024, 04/15/2019 Influenza Vaccine (Season Ended) 2025 Hepatitis C Screening Completed 03/05/2019 Medical Devices Implanted Type Area Cyber Security Manager Device Identifier Shelf Expiration Date Model / Serial / Lot Depuy Spine [id number] 5.5mm 1 Inner Spine Screw Set Titanium Nonsterile Viper - [id number] Implanted:Qty: 8 on 02/24/2019 by Edelmira Pimentel MD at [facility] Screw N/A: Spine Lumbar Depuy Spine [id number] / / Depuy Synthes Spine [id number] Viper Prime Od5 Mm L45 Mm Fix Polyaxial Fenestrate Extend Tab Spine Cortical Screw Bone Nonsterile 5.5 Mm Dav - [id number] Implanted:Qty: 2 on 02/24/2019 by Edelmira Pimentel MD at [facility] Screw N/A: Spine Lumbar Depuy Synthes Spine [id number] / / Depuy Synthes Spine [id number] Viper Prime Od6 Mm L40 Mm Fix Polyaxial Fenestrate Extend Tab Spine Cortical Screw Bone Nonsterile 5.5 Mm Dav - [id number] Implanted:Qty: 2 on 02/24/2019 by Edelmira Pimentel MD at [facility] Screw N/A: Spine Lumbar Depuy Synthes Spine [id number] / / Depuy Synthes Spine [id number] Viper Prime Od6 Mm L45 Mm Fix Polyaxial Fenestrate Extend Tab Spine Cortical Screw Bone Nonsterile 5.5 Mm Dav - [id number] Implanted:Qty: 4 on 02/24/2019 by Edelmira Pimentel MD at [facility] N/A: Spine Lumbar Depuy Synthes Spine [id number] / / Ti Mis Depuy Viper Kypho Dav Implanted:Qty: 2 on 02/24/2019 by Edelmira Pimentel MD at [facility] N/A: Spine Lumbar Depuy Spine [id number] / / Angio Dynamics [id number] Xcela 8fr 1.6mm 1 Lumen Power Injectable Attach Catheter Fill - [id number] Implanted:Qty: 1 on 04/29/2019 at [facility] Ang[employer] Dynamics 02/17/2024 [id number] / / [id number] Procedures Procedure Name Priority Date/Time Associated Diagnosis [...] and children were not included. (Diabetes Care 31:8184-7192, 2008). The eAG is not equivalent to a fasting glucose. Blood specimen (specimen) 06/13/2019 12:08 PM CDT 06/13/2019 12:23 PM CDT us Rashaun Peoples MD LAB BLOOD ORDERABLES Final R esult [facility] [address] [place] [address] * (ABNORMAL) Lipid panel (04/15/2019 2:17 AM CDT) Cholesterol 95 30 - 199 mg/dL [facility] Comment: Interpretive Data Ages < [...] on 2018. Triglycerides 59 <=149 mg/dL [facility] Comment: Interpretive Data Ages < [...] revised on 2018. HDL 30(L) >=40 mg/dL [facility] Comment: Interpretive Data Ages < [...] 2018. LDL, calculated 53 <=129 mg/dL [facility] Comment: Interpretive Data Ages < [...] revised on 2018. Non-HDL Cholesterol 65 mg/dL [facility] Comment: Interpretive Data Ages < or [...] last revised on 2018. Chol/HDL ratio 3 [facility] Blood specimen (specimen) 04/15/2019 2:17 AM CDT 04/15/2019 3:00 AM CDT Rashaun Peoples MD LAB BLOOD ORDERABLES Final R esult [facility] Department [place] [address] * Hepatitis panel, acute (03/05/2019 8:26 PM CDT) Hep A IgM Nonreactive Nonreactive [facility] Comment: Interpretive Data If test is reported as GRAYZONE, new sample should be drawn in two weeks for testing. Current interpretive data was last revised on 2016. Hep B core IgM Nonreactive Nonreactive [facility] Comment: Interpretive Data If test is reported as GRAYZONE, new sample should be drawn for testing. Current interpretive data was last revised on 2016. Hep C Ab Nonreactive Nonreactive [facility] Comment: Interpretive Data Positive results should be confirmed by a molecular method. If positive, a second separately collected sample should be submitted for Hepatitis C Virus (HCV) RNA Detection and Quantitation by Real-Time Reverse Sales Training Representative-PCR (RT-PCR). Current interpretive data was last revised on 2016. HepBsAg Nonreactive Nonreactive [facility] Blood specimen (specimen) 03/05/2019 8:26 PM CDT 03/05/2019 8:41 PM CDT Narrative [facility] - 03/06/2019 12:32 PM CDT us Meng Ulrich MD LAB MICROBIOLOGY - GENERAL OR DERABLES Edited Result - Final [facility] Department [place] [address] from Last 3 Months or Most Recently Relevant to Health Maintenance Insurance [facility] Advance Directives For more information, please contact: [phone] Documents on File Type Date Recorded Patient Veterinary Pathologist Expl anation ADVANCE DIRECTIVE 05/03/2019 1:58 PM POWER OF ALLIED HEALTH PROFESSIONAL-MEDICAL ADVANCE DIRECTIVE 05/02/2019 5:43 AM POWER OF ALLIED HEALTH PROFESSIONAL-MEDICAL ADVANCE DIRECTIVE 04/30/2019 3:45 PM ADVANCE DIRECTIVE 04/27/2019 1:33 PM POWER OF ALLIED HEALTH PROFESSIONAL-MEDICAL * Full Code (Latest Code Status on [...] 9:21 PM 03/14/2019 6:56 PM Care Teams Quenching Car Operator Relationship Specialty Start Date End Date Victoriano Reid MD PCP - General Family Medicine 06/20/19 Rashaun Peoples MD [id number] [place] [address] Medical Oncologist/Telemarketing Fundraiser Medical Oncology 08/07/19 Edelmira Pimentel MD [id number] [place] [address] Surgeon Orthopedic Surgery 09/01/19
--- OUTSIDE RECORDS SUMMARY | 2025-01-16 18:58 | XMS_ITS | Encounter Summary ---
Author Organization [facility] Address [address] [place] [address] Phone Care Team Providers Care Special Forces Senior Sergeant Name Role Phone Victoriano Reid MD Primary Care Provider [phone] Malissa Joe RN Unavailable Unavailable Malissa Joe RN Unavailable Unavailable Elva Olivares DO Primary Care Provider [phone] [place] TECHNICAL MANAGER CHEMICAL PLANT Unavailable Cabrera Smallwood MD Unavailable [phone] Reason for Visit * Reason Comments Medication Refill Encounter Details Date Type Department Care Team (Late st Contact Info) Description 10/24/2022 Refill [facility] #[address] [place] [address] Victoriano Reid MD [address] [place] [address] Medication Refill Social History Tobacco Use Types [...] Yara Peacock RN - 10/24/2022 9:51 AM HOSTESS HOST Per nursing clinical judgement, provider to review and approve the medication(s) order(s) if appropriate. Requested Prescriptions Pending Prescriptions Disp Refills ergocalciferol (VITAMIN D) 86497 UNIT Capsule [Pharmacy Med Name: VITAMIN D2 50,000IU (ERGO) CAP RX] 12 Capsule 3 Sig: TAKE ONE CAPSULE BY MOUTH ONCE A WEEK ON SUNDAY Vitamin Supplements (Adult) Protocol Passed - 10/24/2022 9:40 AM Passed - Visit with relevant provider in past 12 months or upcoming 90 days Recent Visits Date Type Provider Dept 09/19/22 Office Visit Victoriano Reid MD [facility] 01/05/22 Office Visit Nia Abbott PAC [facility] Showing recent visits within past 365 days and meeting all other requirements Future Appointments No visits were found meeting these conditions. Showing future appointments within next 90 days and meeting all other requirements Passed - Vitamin D less than 1.25mg ESS HOST documented in this encounter Plan of Treatment Upcoming Encounters Date Type Department Care Team (Latest Contact Info) Description 01/21/2025 10:30 AM CDT Clinical Support [facility]Y #[address] [place] [address] Nurse, Ken Urology 02/02/2025 11:00 AM CDT Appointment [facility] [address] [place] [address] Cabrera Yadav MD #2 [facility], [address] [address] Discharge Disposition: Discharged to home or Selfcare 02/10/2025 3:00 PM CDT Appointment [facility] Mammography [address] [place] [address] Elva Olivares, DO 2 [facility] [address] [place] [address] Discharge Disposition: Discharged to home or Selfcare 02/10/2025 4:00 PM CDT Appointment [facility] Ultrasound 1 [facility] [address] Elva Olivares, DO 2 [facility] [address] [place] [address] Discharge Disposition: Discharged to home or Selfcare 02/17/2025 1:40 PM CDT Hospital [facility] 1 [facility] [address] Cabrera Yadav MD #[address] [address] 02/17/2025 1:40 PM CDT - 02/17/2025 3:40 PM CDT Surgery [facility] Periop 1 [facility] [place] [address] Cabrera Yadav MD #[address] [place] [address] CYSTOSCOPY AND LITHOLAPAXY, PATIENT WILL NEED A PAUL LIFT 03/02/2025 8:40 AM CDT Office Visit [facility] - Family Medicine [facility] #2 [facility] [place] [address] Elva Olivares, DO 2 [facility] [address] [place] [address] Scheduled Procedures Name Priority Associated Diagnoses Date/Ti ia CYSTOSCOPY BLADDER STONE BLADDER STONES 02/17/2025 1:40 PM CDT documented as of this encounter Visit Diagnoses Diagnosis Vitamin D deficiency Unspecified vitamin D deficiency documented in this encounter Additional Health Concerns Assessment Noted Time PHQ-9 Depression Total Score: 0 08/15/20 10:00 AM CDT documented as of this encounter Care Teams Special Forces Senior Sergeant Relationship Specialty Start Date End Date Victoriano Reid MD PCP - General Family Medicine 06/19/19 06/29/24 Elva Olivares DO 2 [facility] [address] [place] [address] PCP - General Family Medicine 07/01/24 Malissa Joe, RN [place] Nurse Horse Farm Manager 12/03/23 12/03/23 Malissa Joe, RN [place] Nurse Horse Farm Manager 12/05/23 12/05/23 Hinton, TECHNICAL MANAGER CHEMICAL PLANT [place] Interactive Video Technician Horse Farm Manager 11/03/24 Cabrera Yadav MD #2 [facility] [address] [place] [address] Consulting Physician Urology 11/07/24 documented as of this encounter
--- OUTSIDE RECORDS SUMMARY | 2025-01-16 18:58 | XMS_ITS | Encounter Summary ---
Author Organization [facility] Address [address] [place] [address] Phone Care Team Providers Care Deckhand Shrimp Boat Name Role Phone Victoriano Reid MD Primary Care Provider [phone] Malissa Joe RN Unavailable Unavailable Malissa Joe RN Unavailable Unavailable Elva Olivares DO Primary Care Provider [phone] Hinton DUMP ATTENDANT Unavailable UnaCabrera Nevarez MD Unavailable [phone] Reason for Visit * Reason Comments Medication Refill Encounter Details Date Type Department Care Team (Late st Contact Info) Description 08/31/2021 Refill [facility] #2 [place] [address] Sathish Loomis MD #[address] [address] Medication Refill Social History Tobacco Use Types [...] Questions ?? 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) [G95.29, C79.51] Associated Diagnoses 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) [id number] [place], [place] - [address] LOCK TENDER CHIEF OPERATOR documented in this encounter Plan of Treatment Upcoming Encounters Date Type Department Care Team (Latest Contact Info) Description 01/21/2025 10:30 AM CDT Clinical Support [facility] #[address] [place] [address] Nurse, Mershon Urology 02/02/2025 11:00 AM CDT [facility] [address] [place] [address] Cabrera Yadav MD #2 [facility] [address] [place] [address] Discharge Disposition: Discharged to home or Selfcare 02/10/2025 3:00 PM CDT [facility]ointment [facility] Mamm[facility] 1 [facility] [place] [address] Elva Olivares, DO [address] [address] Discharge Disposition: Discharged to home or Selfcare 02/10/2025 4:00 PM CDT [facility]ointment [facility] Ultrasound 1 [facility] [place] [address] Elva Olivares, DO 2 [facility] [address] [address] Discharge Disposition: Discharged to home or Selfcare 02/17/2025 1:40 PM CDT Hospital Encounter [facility] Periop [address] [place] [address] Cabrera Yadav MD [address] [address] 02/17/2025 1:40 PM CDT - 02/17/2025 3:40 PM CDT Surgery [facility] 1 [facility] [place] [address] Cabrera Yadav MD [address] [address] CYSTOSCOPY AND LITHOLAPAXY, PATIENT WILL NEED A PAUL LIFT 03/02/2025 8:40 AM CDT Office [facility] #[address] [place] [address] Elva Olivares DO 2 [facility] [address] [place] [address] Scheduled Procedures Name Priority Associated Diagnoses Date/Ti me CYSTOSCOPY BLADDER STONE BLADDER STONES 02/17/2025 1:40 PM CDT documented as of this encounter Visit Diagnoses Diagnosis 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) documented in this encounter Additional Health Concerns Assessment Noted Time PHQ-9 Depression Total Score: 0 08/15/20 21 10:00 AM CDT documented as of this encounter Care Teams Deckhand Shrimp Boat Relationship Specialty Start Date End Date Victoriano Reid MD PCP - General Family Medicine 06/19/19 06/29/24 Elva Olivares DO 2 [facility] [address] [place] [address] PCP - General Family Medicine 07/01/24 Malissa Joe, RN [place] Nurse Commercial Litigation Paralegal 12/03/23 12/03/23 Malissa Joe, RN [place] Nurse Commercial Litigation Paralegal 12/05/23 12/05/23 Hinton, DUMP ATTENDANT [place] Resistance Brazer Commercial Litigation Paralegal 11/03/24 Cabrera Yadav MD [address] [address] Consulting Physician Urology 11/07/24 documented as of this encounter
--- OUTSIDE RECORDS SUMMARY | 2025-01-16 18:58 | XMS_ITS | Encounter Summary ---
Author Organization [facility] Address [address] [place] [address] Phone Care Team Providers Care Mechanical Unit Repairer Name Role Phone Victoriano Reid MD Primary Care Provider Malissa Joe RN Unavailable Unavailable Malissa Joe RN Unavailable Unavailable Elva Olivares DO Primary Care Provider [phone] [place] ATMOSPHERIC TECHNICIAN Unavailable Unaabdirizaki Cabrera Dodge MD Unavailable [phone] Encounter Details Date Type Department Care Team (Late st Contact Info) Description 11/23/2021 Lab Requisition [facility] Laboratory Services 1 [place] [address] Victoriano Reid MD #1 [place] [address] Urinary tract infection, site not specified Social [...] Description 01/21/2025 10:30 AM CDT Clinical Support [facility] #2 [place] [address] Nurse, Ken Urology 02/02/2025 11:00 AM CDT [facility] 1 [facility] [place] [address] Cabrera Yadav MD #2 [facility] [address] [place] [address] Discharge Disposition: Discharged to home or Selfcare 02/10/2025 3:00 PM CDT [facility] 1 [place] [address] Elva Olivares, DO 2 [facility] [address] [place] [address] Discharge Disposition: Discharged to home or Selfcare 02/10/2025 4:00 PM CDT Appointment [facility] Ul[facility]ound 1 [facility] [place] [address] Elva Olivares, DO 2 [facility] [address] [place] [address] Discharge Disposition: Discharged to home or Selfcare 02/17/2025 1:40 PM CDT Hospital En[facility] Periop 1 [facility] [place] [address] Cabrera Yadav MD #2 [facility] [address] [place] [address] 02/17/2025 1:40 PM CDT - 02/17/2025 3:40 PM CDT Surgery [facility] Periop 1 [place] [address] Cabrera Yadav MD #2 [facility] [address] [place] [address] CYSTOSCOPY AND LITHOLAPAXY, PATIENT WILL NEED A PAUL LIFT 03/02/2025 8:40 AM CDT Office Visit [facility] - Family Medicine [facility] #2 [place] [address] Elva Olivares DO 2 [facility] [address] [place] [address] Scheduled Orders Name Type Priority Associated Diagnoses Orde r Schedule URINALYSIS REFLEX IF INDICAT ED BY ABNORMAL RESULTS Lab Routine Ordered: 06/2022 Scheduled Procedures Name Priority Associated Diagnoses Date/Ti me CYSTOSCOPY BLADDER STONE BLADDER STONES 02/17/2025 1:40 PM CDT documented as of this encounter Visit Diagnoses Diagnosis Urinary tract infection, site not specified documented in this encounter Additional Health Concerns Assessment Noted Time PHQ-9 Depression Total Score: 0 08/15/20 21 10:00 AM CDT documented as of this encounter Care Teams Mechanical Unit Repairer Relationship Specialty Start Date End Date Victoriano Reid MD PCP - General Family Medicine 06/19/19 06/29/24 Elva Olivares DO 2 [facility] [address] [place] [address] PCP - General Family Medicine 07/01/24 Malissa Joe RN [place] Nurse Bill Hiker 12/03/23 12/03/23 Malissa Joe, RN [place] Nurse Bill Hiker 12/05/23 12/05/23 [place], ATMOSPHERIC TECHNICIAN [place] Spinner Tender Bill Hiker 11/03/24 Cabrera Yadav MD #[address] [address] Consulting Physician Urology 11/07/24 documented as of this encounter
--- OUTSIDE RECORDS SUMMARY | 2025-01-16 18:58 | XMS_ITS | Encounter Summary ---
Author Organization [facility] Address [address] [place] [address] Phone Care Team Providers Care College Intern Name Role Phone Victoriano Reid MD Primary Care Provider [phone] Malissa Joe RN Unavailable Unavailable Malissa Joe RN Unavailable Unavailable Elva Olivares DO Primary Care Provider [phone] [place] CLINICAL PSYCHOLOGY TEACHER Unavailable Cabrera Smallwood MD Unavailable [phone] Reason for Visit * Reason Comments Medication Refill Encounter Details Date Type Department Care Team (Late st Contact Info) Description 11/05/2021 Refill [facility] #[address] [place] [address] Victoriano Reid MD #[address] [place] [address] Medication Refill Social History Tobacco Use Types [...] 11/07/2021 8:53 AM CST ergocalciferol (VITAMIN D) 23582 UNIT Capsule 12 Capsule 3 08/15/2021 Sig - Route: Take 1 Capsule by mouth once a week. On Sunday - Oral Sent to pharmacy as: Ergocalciferol 1.25 MG (69286 UT) Oral Capsule (VITAMIN D) Class: E Prescribe E-Prescribing Status: Receipt confirmed by pharmacy (08/15/2021 ??1:57 PM CDT) Order Questions ?? ergocalciferol (VITAMIN D) 37556 UNIT Capsule [[id number]] 1357 Status: Active Ordering user: Victoriano Reid MD 08/15/21 135 Authorized by: Victoriano Reid MD Frequency: Weekly 08/15/21 - Until Discontinued Diagnoses Vitamin D deficiency [E55.9] Associated Diagnoses Vitamin D deficiency Pharmacy [id number] [place] [id number] Refills on file [place] [facility] documented in this encounter Plan of Treatment Upcoming Encounters Date Type Department Care Team (Latest Contact Info) Description 01/21/2025 10:30 AM CDT Clinical Support [facility] UROLOGY #[address] [place] [address] NurseKen Urology 02/02/2025 11:00 AM CDT Appointment [facility] [address] [facility] [place] [address] Cabrera Yadav MD #2 [facility] [address] [address] Discharge Disposition: Discharged to home or Selfcare 02/10/2025 3:00 PM CDT Appointment [facility] 1 [facility] [place] [address] Elva Olivares, DO 2 [facility] [address] [place] [address] Discharge Disposition: Discharged to home or Selfcare 02/10/2025 4:00 PM CDT Appointment [facility] Ultrasound 1 [place] [address] Elva Olivares, DO 2 [facility] [address] [place] [address] Discharge Disposition: Discharged to home or Selfcare 02/17/2025 1:40 PM CDT [facility] 1 [facility] [place] [address] Cabrera Yadav MD #[address] [address] 02/17/2025 1:40 PM CDT - 02/17/2025 3:40 PM CDT Surgery [facility] Periop 1 [place] [address] Cabrera Yadav MD #[address] [address] CYSTOSCOPY AND LITHOLAPAXY, PATIENT WILL NEED A PAUL LIFT 03/02/2025 8:40 AM CDT Office Visit [facility] - Family [facility] #2 [place] [address] Elva Olivares DO 2 [facility] [address] [place] [address] Scheduled Procedures Name Priority Associated Diagnoses Date/Ti me CYSTOSCOPY BLADDER STONE BLADDER STONES 02/17/2025 1:40 PM CDT documented as of this encounter Visit Diagnoses Diagnosis Vitamin D deficiency Unspecified vitamin D deficiency documented in this encounter Additional Health Concerns Assessment Noted Time PHQ-9 Depression Total Score: 0 08/15/20 21 10:00 AM CDT documented as of this encounter Care Teams College Intern Relationship Specialty Start Date End Date Victoriano Reid MD PCP - General Family Medicine 06/19/19 06/29/24 Elva Olivares DO 2 [facility] [address] [place] [address] PCP - General Family Medicine 07/01/24 Malissa Joe, RN [place] Nurse Director Traffic And Planning 12/03/23 12/03/23 Malissa Joe, RN [place] Nurse Director Traffic And Planning 12/05/23 12/05/23 [place], [facility] [place] Mass Communications Professor Director Traffic And Planning 11/03/24 Cabrera Yadav MD #2 [facility] [address] [place] [address] Consulting Physician Urology 11/07/24 documented as of this encounter
--- OUTSIDE RECORDS SUMMARY | 2025-01-16 18:58 | XMS_ITS | Encounter Summary ---
Author Organization [facility] Address [address] [place] [address] Phone Care Team Providers Care Cost Accounting Manager Name Role Phone Victoriano Reid MD Primary Care Provider [phone] Elva Olivares DO Primary Care Provider [phone] [place] [facility] Unavailable Cabrera Smallwood MD Unavailable [phone] Reason for Visit * Reason Comments Medication Refill Encounter Details Date Type Department Care Team (Late Contact Info) Description 12/20/2023 Refill [facility] - Family Medicine [facility] #[address] [place] [address] Victoriano Reid MD #[address] [place] [address] Medication Refill Social History Tobacco Use Types Packs/Day Years Used Date Smoking Tobacco: Every Day Cigarettes Smokeless Tobacco: Never Alcohol Use Standard Drinks/Week Comments Not Currently 0 (1 standard drink = 0.6 oz pur e alcohol) [facility] Utilities Answer Date Recorded In [...] often do you attend chur ch or methodist services? Never 12/20/2023 Do you belong to any clubs o r organizations such as sabianist groups, unions, fraternal or athletic groups, or [...] Total Score - Questions 1-9 0 12/14 [facility] - [...] a nursing home (including now)? No 12/20/2023 Education Answer [...] of Assessment Author 0 12/20/2023 11:52 AM KELP GATHERER [employer], System Background * Within the last year, have you been humiliated or emotionally abused in other ways by your partner or ex-partner? Answer Date of Assessment Author No 12/20/2023 11:52 AM KELP GATHERER [employer] Background * Within the last year, have you been afraid of your partner or ex-partner? Answer Date of Assessment Author No 12/20/2023 11:52 AM KELP GATHERER [employer], System Background * Within the last year, have you been raped or forced to have any kind of sexual activity by your partner or ex-partner? Answer Date of Assessment Author No 12/20/2023 11:52 AM KELP GATHERER [employer], System Background * Within the last year, have you been kicked, hit, slapped, or otherwise physically hurt by your partner or ex-partner? Answer Date of Assessment Author No 12/20/2023 11:52 AM KELP GATHERER Mychart, System Background * Q1: How often do you have a drink containing alcohol? Answer Date of Assessment Author Never 12/20/2023 11:52 AM KELP GATHERER [employer] System Background * Q2: How many drinks containing alcohol do you have on a typical day when you are drinking? Answer Date of Assessment Author Patient does not drink 12/20/2023 11:52 AM KELP GATHERER [employer] System Background * Q3: How often do you have six or more drinks on one occasion? Answer Date of Assessment Author Never 12/20/2023 11:52 AM KELP GATHERER [employer] Background documented as of this encounter Miscellaneous Notes * Telephone Encounter - Adelaida Medina RN - 12/20/2023 10:19 AM KELP GATHERER Medication failed the protocol, provider to review [...] Osmariela Rogers 10/23/23 Telemedicine Miriam Prasad APRN, BUSINESS OFFICE COORDINATOR [facility] Ken 03/29/23 Office Visit [facility] MD [facility] Showing recent visits within past 365 days and meeting all other requirements Future Appointments Date Type Provider Dept 12/21/23 Appointment Victoriano Reid MD Osmariela Rogers Showing future appointments within next 90 days and meeting all other requirements GATHERER documented in this encounter Plan of Treatment Upcoming Encounters Date Type Department Care Team (Latest Contact Info) Description 01/21/2025 10:30 AM CDT Clinical Support [facility] #[address] [place] [address] Nurse, Ken Urology 02/02/2025 11:00 AM CDT [facility] [address] [place] [address] Cabrera Yadav MD #[address] [facility] [address] [place] [address] Discharge Disposition: Discharged to home or Selfcare 02/10/2025 3:00 PM CDT [facility] 1 [facility] [place] [address] Elva Olivares, DO 2 [facility] [address] [place] [address] Discharge Disposition: Discharged to home or Selfcare 02/10/2025 4:00 PM CDT [facility] 1 [facility] [place] [address] Elva Olivares, DO 2 [facility] [facility] [address] [place] [address] Discharge Disposition: Discharged to home or Selfcare 02/17/2025 1:40 PM CDT Hospital [facility] [address] [place] [address] Cabrera Yadav MD [address] [address] 02/17/2025 1:40 PM CDT - 02/17/2025 3:40 PM CDT [facility] [address] [place] [address] Cabrera Yadav MD #2 [facility] [address] [place] [address] CYSTOSCOPY AND LITHOLAPAXY, PATIENT WILL NEED A PAUL LIFT 03/02/2025 8:40 AM CDT Office Visit [facility] - Family [facility] #[address] [place] [address] Elva Olivares DO 2 [facility] [facility] [address] [place] [address] Scheduled Procedures Name Priority Associated Diagnoses Date/Ti me CYSTOSCOPY BLADDER STONE BLADDER STONES 02/17/2025 1:40 PM CDT documented as of this encounter Visit Diagnoses Diagnosis Hypokalemia Hypopotassemia documented in this encounter Additional Health Concerns Assessment Noted Time PHQ-9 Depression Total Score: 0 08/15/20 21 10:00 AM CDT documented as of this encounter Care Teams Cost Accounting Manager Relationship Specialty Start Date End Date Victoriano Reid MD PCP - General Family Medicine 06/19/19 06/29/24 Elva Olivares DO 2 [facility] [address] [place] [address] PCP - General Family Medicine 07/01/24 [place], [facility] Stencil Sprayer Golf Course Keeper 11/03/24 Cabrera Yadav MD [address] [address] Consulting Physician Urology 11/07/24 documented as of this encounter
--- OUTSIDE RECORDS SUMMARY | 2025-01-16 18:58 | XMS_ITS ---
Author Organization [facility] Address [address] [place] [address] Care Team Providers Care Interactive Media Designer Name Role Phone Victoriano Reid MD Primary Care Provider [phone] Rashaun Peoples MD Unavailable [phone] Edelmira Pimentel MD Unavailable Active Problems Problem Noted Date Diagnosed Date [...] and [facility] and will discharge [...] diastolic dysfunction and normal LVEF - starting [facility] inpatient tomorrow Vitamin D deficiency 03/03/2019 Overview [...] Discharge plans for acute inpatient rehab at [facility]. - No weight bearing restrictions, but full [...] Discharge plans for acute inpatient rehab at [facility]. - No weight bearing restrictions, but full [...] certainly need placement for aggressive PT/OT. Insurance ([place] Medicaid) pending. - No weight bearing restrictions, [...] certainly need placement for aggressive PT/OT. Insurance ([place]) pending. - No weight bearing restrictions, [...] certainly need placement for aggressive PT/OT. Insurance ([place] Medicaid) pending. - No weight bearing restrictions, [...] certainly need placement for aggressive PT/OT. Insurance ([place]) pending. - No weight bearing restrictions, [...] today, please call Janice Adams NP at [phone]. If after hours, please contact the Diabetes Fellow at [phone]. Assessment & Plan (03/14/2019 10:32 AM CDT): [...] today, please call Crista Montgomery NP at [phone]. If after hours, please contact the Diabetes Fellow at [phone]. Assessment & Plan (03/12/2019 10:31 AM CDT): [...] today, please call Janice Adams NP at [phone]. If after hours, please contact the Diabetes Fellow at [phone]. Assessment & Plan (03/05/2019 6:21 PM CDT): [...] were discussed with the primary team. Call [phone] with questions on day of service only. If after hours or weekends, please contact the Diabetes Fellow at [phone], option #1 Assessment & Plan (02/28/2019 12:17 [...] were discussed with the primary team. Call [phone] with questions on day of service only. If after hours or weekends, please contact the Diabetes Fellow at [phone], option #1 Assessment & Plan (02/26/2019 4:31 [...] today, please call Crista Montgomery NP at [phone]. If after hours, please contact the Diabetes Fellow at [phone]. Assessment & Plan (02/24/2019 10:05 AM CDT): -New diagnosis. A1c 8.9 -LDSSI. DM educator c/s, utilization review rn -Monitor BG with decadron Current Treatment and [...] Assessment & Plan (04/17/2019 10:53 AM CDT): 2/2 pneumonia, PE and pulmonary edema, CT scan [...] -TTE (04/16) with EF 74%, mild TR, MS; G1DD, normal RV size and function. -if [...]
--- OUTSIDE RECORDS SUMMARY | 2025-01-16 18:58 | XMS_ITS | Encounter Summary ---
Author Organization [facility] Address [address] [place] [address] Phone Care Team Providers Care Dog Boarder Name Role Phone Victoriano Reid MD Primary Care Provider [phone] Malissa Joe RN Unavailable Unavailable Malissa Joe RN Unavailable Unavailable Elva Olivares DO Primary Care Provider [phone] [place] PASTE MIXING SUPERVISOR Unavailable Unaabdirizaki Cabrera Dodge MD Unavailable [phone] Encounter Details Date Type Department Care Team (Late st Contact Info) Description 05/19/2020 [facility] 1 [place] [address] Victoriano Reid MD #1 [place] [address] Urinary tract infection, site not specified Social [...] 10:30 AM CDT Clinical Support [facility] UROLOGY #[address] [place] [address] Nurse, Ken Urology 02/02/2025 11:00 AM CDT Appointment [facility] CT [address] [place] [address] Cabrera Yadav MD #2 [address] MCMILLAN, [facility] [address] [place] [address] Discharge Disposition: Discharged to home or Selfcare 02/10/2025 3:00 PM CDT [facility] 1 [facility] [place] [address] Elva Olivares, DO 2 [facility] [address] [place] [address] Discharge Disposition: Discharged to home or Selfcare 02/10/2025 4:00 PM CDT [facility] [address] [place] [address] Elva Olivares, DO 2 [facility] [address] [place] [address] Discharge Disposition: Discharged to home or Selfcare 02/17/2025 1:40 PM CDT Hospital [facility] [address] [place] [address] Cabrera Yadav MD #2 SHANELLE MCMILLAN, [facility] [address] [place] [address] 02/17/2025 1:40 PM CDT - 02/17/2025 3:40 PM CDT [facility] 1 [facility] [place] [address] Cabrera Yadav MD #2 [address] [facility] [address] [place] [address] CYSTOSCOPY AND LITHOLAPAXY, PATIENT WILL NEED A PAUL LIFT 03/02/2025 8:40 AM CDT Office Visit [facility] - Family Medicine [facility] #[address] [place] [address] Elva Olivares, DO 2 [facility] [address] [place] [address] Scheduled Procedures Name Priority Associated Diagnoses Date/Ti [...] RESULTS CITROBACTER AMALONATICUS 05/23/2020 9:23 AM CDT [facility] C[facility]URE RESULTS ESCHERICHIA COLI 05/23/2020 9:[address] [facility] Urine Non-Phlebotomy Collection / Unknown 05/19/2020 2:15 PM CDT 05/19/2020 4:30 PM CDT Narrative Organism Antibiotic Method Susceptibility Citrobacter amalonaticus Cefazolin [facility] VITEK IIB >=64 mcg/ml: Resistant Citrobacter amalonaticus Ceftriaxone [facility] VITEK IIB <=1 mcg/ml: Susceptible Citrobacter amalonaticus [...] - GENERAL ORDERABLE S Final Result [facility] [address] [facility] [place] [address], * (ABNORMAL) URINALYSIS REFLEX IF INDICATED BY ABNORMAL RESULTS (05/19/2020 2:15 PM CDT) [facility] Signature SPECIFIC GRAVITY 1.010 1.003 - 1.030 05/19/2020 4:46 PM CDT [facility] URINE PH 8.0 5.0 - 9.0 05/19/2020 4:46 PM CDT [facility] WBC ESTERASE 500 /uL(A) Negative 05/19/2020 4:46 PM CDT [facility] NITRITE Positive(A) Negative 05/19/2020 4:46 PM CDT [facility] PROTEIN, RANDOM URINE 15 mg/dL(A) Negative 05/19/2020 4:46 PM CDT [facility] URINE GLUCOSE, QUAL Negative Negative 05/19/2020 4:46 PM CDT [facility] URINE KETONES Negative Negative 05/19/2020 4:46 PM CDT [facility] UROBILINOGEN Normal Normal mg/dL 05/19/2020 4:46 PM CDT [facility] URINE BILIRUBIN Negative Negative 0 4:46 PM CDT [facility] URINE BLOOD 150 /uL(A) Negative josefa/ul 05/19/2020 4:46 PM CDT [facility] URINALYSIS COLOR Dark Yellow 020 4:46 PM CDT [facility] URINALYSIS CLARITY Very Cloudy 05/19/2020 4:46 PM CDT [facility] WBC (Urine) 51-150(A) Negative, 0-5 /hpf 05/19/2020 4:46 PM CDT [facility] URINE RBC'S 6-10(A) Negative, 0-2 /hpf 05/19/2020 4:46 PM CDT [facility] EPITHELIAL CELLS Small amount /lpf 2019 4:46 PM CDT [facility] BACTERIA, URINE Packed(A) Negative /hpf 05/19/2020 4:46 PM CDT [facility] Urine Non-Phlebotomy Collection / Unknown 05/19/2020 2:15 PM CDT 05/19/2020 4:30 PM CDT Victoriano Reid MD URINE ORDERABLES Final Result [facility] #1 [facility] [place] [address] documented in this encounter Visit Diagnoses Diagnosis Urinary tract infection, site not specified documented in this encounter Additional Health Concerns Infection Onset Date Last Indicated Resolved Time 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 [address] [place] [address] PCP - General Family Medicine 07/01/24 Malissa Joe, RN [place] Nurse Piecer 12/03/23 12/03/23 Malissa Joe, RN [place] Nurse Piecer 12/05/23 12/05/23 [place], PASTE MIXING SUPERVISOR [place] Registered Medical Assistant Piecer 11/03/24 Cabrera Yadav MD #2 [facility] [address] [place] [address] Consulting Physician Urology 11/07/24 documented as of this encounter
--- OUTSIDE RECORDS SUMMARY | 2025-01-16 18:58 | XMS_ITS | Encounter Summary ---
Author Organization [facility] Address [address] [place] [address] Phone Care Team Providers Care Timber Appraiser Name Role Phone Victoriano Reid MD Primary Care Provider [phone] Malissa Joe RN Unavailable Unavailable Malissa Joe RN Unavailable Unavailable Elva Olivares DO Primary Care Provider [phone] [place] CHIEF DRAFTER Unavailable Unaabdirizaki Cabrera Dodge MD Unavailable [phone] Encounter Details Date Type Department Care Team (Late st Contact Info) Description 11/23/2021 Lab Requisition [facility] Laboratory Services [address] [place] [phone] Victoriano Reid MD #1 [place] [address] Extravasation of urine Social History Tobacco Use Types Packs/Day Years Used Date Smoking Tobacco: Every Day Cigarettes Smokeless Tobacco: Never Alcohol Use Standard Drinks/Week Comments Not Currently 0 (1 standard drink = 0.6 oz pur e alcohol) PHQ-2 Answer Date Recorded Total Score - Questions 1-9 0 1110/2020 Education Answer Date Recorded What is the [...] [facility] UROLOGY #2 [place] [address] Nurse, Ken Urology 02/02/2025 11:00 AM CDT [facility]ment [facility] 1 [facility] [place] [address] Cabrera Yadav MD #2 [facility] [address] [place] [address] Discharge Disposition: Discharged to home or Selfcare 02/10/2025 3:00 PM CDT [facility]ment [facility] Mammography 1 [facility] [address] Elva Olivares, DO 2 [facility] [address] [place] [address] Discharge Disposition: Discharged to home or Selfcare 02/10/2025 4:00 PM CDT [facility]ment [facility] Ultrasound 1 [facility] [place] [address] Elva Olivares, DO 2 [facility] [address] [place] [address] Discharge Disposition: Discharged to home or Selfcare 02/17/2025 1:40 PM CDT Hospital En[facility] Periop 1 [facility] [place] [address] Cabrera Yadav MD #2 [facility] [address] [place] [address] 02/17/2025 1:40 PM CDT - 02/17/2025 3:40 PM CDT Surgery [facility] Periop 1 [place] [address] Cabrera Yadav MD #[address] [facility] [address] [place] [address] CYSTOSCOPY AND LITHOLAPAXY, PATIENT WILL NEED A PAUL LIFT 03/02/2025 8:40 AM CDT Office [facility] Medical Group - Family Medicine [facility] #2 [place] [address] Elva Olivares, DO 2 [facility] [address] [place] [address] Scheduled Procedures Name Priority Associated Diagnoses Date/Ti me CYSTOSCOPY BLADDER STONE BLADDER STONES 02/17/2025 1:40 PM CDT documented as of this encounter Procedures Procedure Name Priority Date/Time Associated Diagnosis Comments URINALYSIS REFLEX IF INDICATED BY ABNORMAL RESULTS Routine 11/23/2021 12:00 PM ERRAND RUNNER Extravasation of urine CULTURE, URINE Routine 11/23/2021 12:00 PM ERRAND RUNNER Extravasation of urine documented in this encounter Results * CULTURE, URINE (11/23/2021 12:00 PM ERRAND RUNNER) CULTURE RESULTS STAPHYLOCOCCUS AUREUS 11/29/2021 1:01 PM ERRAND RUNNER [facility] Urine Non-Phlebotomy Collection / Unknown 11/23/2021 12:00 PM ERRAND RUNNER 11/23/2021 3:44 PM ERRAND RUNNER Narrative Organism Antibiotic Method Susceptibility Staphylococcus aureus [...] MICROBIOLOGY - GENERAL ORDERABLE S Final Result [facility] [address] [place] [id number], [place] * (ABNORMAL) URINALYSIS REFLEX IF INDICATED BY ABNORMAL RESULTS (11/23/2021 12:00 PM ERRAND RUNNER) SPECIFIC GRAVITY 1.005 1.003 - 1.030 11/23/2021 4:41 PM ERRAND RUNNER [facility] URINE PH 7.0 5.0 - 9.0 11/23/2021 4:41 PM [facility] WBC ESTERASE 500 /uL(A) Negative 11/23/2021 4:41 PM [facility] NITRITE Positive(A) Negative 11/23/2021 4:41 PM [facility] PROTEIN, RANDOM URINE 30 mg/dL(A) Negative 11/23/2021 4:41 PM ERRAND RUNNER [facility] URINE GLUCOSE, QUAL Negative Negative 11/23/2021 4:41 PM [facility] URINE KETONES Negative Negative 11/23/2021 4:41 PM [facility] UROBILINOGEN Normal Normal mg/dL 11/23/2021 4:41 PM [facility] URINE BLOOD 250 /uL(A) Negative josefa/ul 11/23/2021 4:41 PM [facility] URINALYSIS COLOR Light yellow 2021 4:41 PM [facility] URINALYSIS CLARITY Slightly Cloudy 11/23/2021 4:41 PM [facility] WBC (Urine) Packed(A) Negative, 0-5 /hpf 11/23/2021 4:41 PM [facility] URINE RBC'S 51-150(A) Negative, 0-2 /hpf 11/23/2021 4:41 PM ERRAND RUNNER [facility] EPITHELIAL CELLS Small amount /lpf 2021 4:41 PM ERRAND RUNNER [facility] BACTERIA, URINE Many(A) Negative /hpf 11/23/2021 4:41 PM ERRAND RUNNER [facility] Urine Non-Phlebotomy Collection / Unknown 11/23/2021 12:00 PM ERRAND RUNNER 11/23/2021 3:44 PM ERRAND RUNNER Victoriano Reid MD URINE ORDERABLES Final Result [facility] #1 [place] [address] documented in this encounter Visit Diagnoses Diagnosis Extravasation of urine documented in this encounter Additional Health Concerns Assessment Noted Time PHQ-9 Depression Total Score: 0 08/15/20 21 10:00 AM CDT documented as of this encounter Care Teams Timber Appraiser Relationship Specialty Start Date End Date Victoriano Reid MD PCP - General Family Medicine 06/19/19 06/29/24 Elva Olivares DO 2 [facility] [address] [place] [address] PCP - General Family Medicine 07/01/24 Malissa Joe, RN [place] Nurse Comic Writer 12/03/23 12/03/23 Malissa Joe, RN [place] Nurse Comic Writer 12/05/23 12/05/23 Hinton LSW [place] Career Resource Technician Comic Writer 11/03/24 Cabrera Yadav MD #2 [facility] [address] [place] [address] Consulting Physician Urology 11/07/24 documented as of this encounter
--- OUTSIDE RECORDS SUMMARY | 2025-01-16 18:58 | XMS_ITS | Encounter Summary ---
Author Organization [facility] Address [address] [place] [address] Phone Care Team Providers Care Fire Hydrant Operator Name Role Phone Victoriano Reid MD Primary Care Provider [phone] Malissa Joe RN Unavailable Unavailable Malissa Joe RN Unavailable Unavailable Elva Olivares DO Primary Care Provider [phone] Hinton [facility] Unavailable Cabrera Smallwood MD Unavailable [phone] Reason for Visit * Reason Comments Medication Refill Encounter Details Date Type Department Care Team (Late st Contact Info) Description 10/21/2023 Refill [facility] Medical Group - Family Medicine [facility] [address] [place] [address] Victoriano Reid MD #1 [place] [address] Medication Refill Social History Tobacco Use Types Packs/Day Years Used Date Smoking Tobacco: Every Day Cigarettes Smokeless Tobacco: Never Alcohol Use Standard Drinks/Week Comments Not Currently 0 (1 standard drink = 0.6 oz pur e alcohol) [facility] Utilities Answer Date Recorded In the [...] often do you attend chur ch or restoration services? Never 10/22/2023 Do you belong to any clubs o r organizations such as uatsdin groups, unions, fraternal or athletic groups, or [...] slept in a mcfp (including now)? No 10/22/2023 Education Answer Date [...] of Assessment Author 0 10/22/2023 10:19 PM INFORMATION TECHNOLOGY PROGRAM MANAGER [employer] Systemst, System Background * Within the last year, have you been humiliated or emotionally abused in other ways by your partner or ex-partner? Answer Date of Assessment Author No 10/22/2023 10:19 PM INFORMATION TECHNOLOGY PROGRAM MANAGER Tapterahart, System Background * Within the last year, have you been afraid of your partner or ex-partner? Answer Date of Assessment Author No 10/22/2023 10:19 PM INFORMATION TECHNOLOGY PROGRAM MANAGER Tapterahart, System Background * Within the last year, have you been raped or forced to have any kind of sexual activity by your partner or ex-partner? Answer Date of Assessment Author No 10/22/2023 10:19 PM INFORMATION TECHNOLOGY PROGRAM MANAGER T[employer]ahart, System Background * Within the last year, have you been kicked, hit, slapped, or otherwise physically hurt by your partner or ex-partner? Answer Date of Assessment Author No 10/22/2023 10:19 PM INFORMATION TECHNOLOGY PROGRAM MANAGER Fastr System Background * Q1: How often do you have a drink containing alcohol? Answer Date of Assessment Author Never 10/22/2023 10:19 PM INFORMATION TECHNOLOGY PROGRAM MANAGER [employer] Systemst, System Background * Q2: How many drinks containing alcohol do you have on a typical day when you are drinking? Answer Date of Assessment Author Patient does not drink 10/22/2023 10:19 PM INFORMATION TECHNOLOGY PROGRAM MANAGER ProFibrixhart, System Background * Q3: How often do you have six or more drinks on one occasion? Answer Date of Assessment Author Never 10/22/2023 10:19 PM INFORMATION TECHNOLOGY PROGRAM MANAGER [employer]art, System Background documented as of this encounter Miscellaneous Notes * Telephone Encounter - Adelaida Medina RN - 10/21/2023 5:45 PM INFORMATION TECHNOLOGY PROGRAM MANAGER Medication failed the protocol, provider to review [...] Dept 03/29/23 Office Visit Victoriano Reid MD [facility] Ken Showing recent visits within past 365 days and meeting all other requirements Future Appointments Date Type Provider Dept 10/23/23 Appointment Miriam Prasad, OBSTETRICS GYNECOLOGY PHYSICIAN, INTAKE ASSESSOR [facility] Ken 12/21/23 Appointment Victoriano Reid MD [facility] Ken Showing future appointments within next 90 days and meeting all other requirements RMATION TECHNOLOGY PROGRAM MANAGER documented in this encounter Plan of Treatment Upcoming Encounters Date Type Department Care Team (Latest Contact Info) Description 01/21/2025 10:30 AM CDT Clinical Support [facility] UROLOGY #2 [place] [address] NurseKen Urology 02/02/2025 11:00 AM CDT [facility] [address] [place] [address] Cabrera Yadav MD #2 [facility] [address] [place] [address] Discharge Disposition: Discharged to home or Selfcare 02/10/2025 3:00 PM CDT [facility] Mammography [address] [place] [address] Elva Olivares, DO 2 [facility] [address] [place] [address] Discharge Disposition: Discharged to home or Selfcare 02/10/2025 4:00 PM CDT [facility] Ultrasound 1 [facility] [place] [address] Elva Olivares, DO 2 [facility] [address] [address] Discharge Disposition: Discharged to home or Selfcare 02/17/2025 1:40 PM CDT Hospital [facility] Periop 1 [facility] [place] [address] Cabrera Yadav MD #2 [facility] [address] [address] 02/17/2025 1:40 PM CDT - 02/17/2025 3:40 PM CDT [facility] Periop 1 [facility] [place] [address] Cabrera Yadav MD #[address] [address] CYSTOSCOPY AND LITHOLAPAXY, PATIENT WILL NEED A PAUL LIFT 03/02/2025 8:40 AM CDT Office Visit [facility] Family [facility] #2 [place] [address] Elva Olivares DO 2 [facility] [address] [place] [address] Scheduled Procedures Name Priority Associated Diagnoses Date/Ti [...] documented as of this encounter Care Teams Fire Hydrant Operator Relationship Specialty Start Date End Date Victoriano Reid MD PCP - General Family Medicine 06/19/19 06/29/24 Elva Olivares DO 2 [facility] [address] [place] [address] PCP - General Family Medicine 07/01/24 Malissa Joe, RN [place] Nurse Hair Spring Winder 12/03/23 12/03/23 Malissa Joe RN [place] Nurse Hair Spring Winder 12/05/23 12/05/23 Hinton, [facility] Bottom Presser Hair Spring Winder 11/03/24 Cabrera Yadav MD #[address] [address] Consulting Physician Urology 11/07/24 documented as of this encounter
--- OUTSIDE RECORDS SUMMARY | 2025-01-16 18:58 | XMS_ITS | Encounter Summary ---
Author Organization [facility] Address [address] [place] [address] Phone Care Team Providers Care Director Social Service Name Role Phone Victoriano Reid MD Primary Care Provider [phone] Malissa Joe RN Unavailable Unavailable Malissa Joe RN Unavailable Unavailable Elva Olivares DO Primary Care Provider [phone] Hinton NUCLEAR EQUIPMENT OPERATOR Unavailable Unaabdirizaki Cabrera Dodge MD Unavailable [phone] Encounter Details Date Type Department Care Team (Late st Contact Info) Description 09/07/[address] [facility] Laboratory Services 1 [place] [address] Victoriano Reid MD #1 [place] [address] Neuromuscular dysfunction of bladder, unspecified; Urinary tract [...] Description 01/21/2025 10:30 AM CDT Clinical Support [facility] UROLOGY #2 [facility] [place] [address] Nurse, Garth Urology 02/02/2025 11:00 AM CDT [facility]ment [facility] CT 1 [facility] [place] [address] Cabrera Yadav MD #2 [facility] [address] [place] [address] Discharge Disposition: Discharged to home or Selfcare 02/10/2025 3:00 PM CDT [facility] Mammography 1 [facility] [place] [address] Elva Olivares, DO 2 [facility] [address] [place] [address] Discharge Disposition: Discharged to home or Selfcare 02/10/2025 4:00 PM CDT [facility]ment [facility] Ultrasound 1 [facility] [place] [address] Elva Olivares, DO 2 [facility] [address] [place] [address] Discharge Disposition: Discharged to home or Selfcare 02/17/2025 1:40 PM CDT Hospital [facility] Periop [address] [place] [address] Cabrera Yadav MD #2 SH[facility]ELLE [facility] [address] [place] [address] 02/17/2025 1:40 PM CDT - 02/17/2025 3:40 PM CDT Surgery [facility] Periop 1 [facility] [place] [address] Cabrera Yadav MD #2 [facility]LE [facility], [facility] [address] [place] [address] CYSTOSCOPY AND LITHOLAPAXY, PATIENT WILL NEED A PAUL LIFT 03/02/2025 8:40 AM CDT Office Visit [facility] Medical Group - Family Medicine [facility] #2 [facility] [place] [address] Elva Olivares, DO 2 [facility]. [address] [place] [address] Scheduled Procedures Name Priority Associated Diagnoses Date/Ti me CYSTOSCOPY BLADDER STONE BLADDER STONES 02/17/2025 1:40 PM CDT documented as of this encounter Procedures Procedure Name Priority Date/Time Associated Diagnosis Comments CULTURE, URINE Routine 09/07/2020 5:00 PM ENTERPRISE APPLICATIONS MANAGER Neuromuscular dysfunction of bladder, unspecified Urinary tract infection, site not specified Personal history of urinary (tract) infections documented in this encounter Results * CULTURE, URINE (09/07/2020 5:00 PM ENTERPRISE APPLICATIONS MANAGER) CULTURE RESULTS STAPHYLOCOCCUS AUREUS 09/11/2020 6:33 AM ENTERPRISE APPLICATIONS MANAGER [facility] CULTURE RESULTS ALSO MIXED GROWTH OF DISTAL URETHRA CONTAMINANTS. 09/11/2020 6:33 AM ENTERPRISE APPLICATIONS MANAGER [facility] Culture URINE SPECIMEN / Unknown No Phlebotomy Charged / Unknown 09/07/2020 5:00 PM ENTERPRISE APPLICATIONS MANAGER 09/07/2020 5:39 PM ENTERPRISE APPLICATIONS MANAGER Narrative Organism Antibiotic Method Susceptibility Staphylococcus aureus Gentamicin SF VITEK II >=16 mcg/ml: Resistant Staphylococcus aureus Nitrofurantoin [facility] VITEK II <=16 mcg/ml: Susceptible Staphylococcus aureus Oxacillin [facility] VITEK II <=0.25 mcg/ml: Susceptible Staphylococcus aureus Tetracycline SF VITEK II <=1 mcg/ml: Susceptible Staphylococcus aureus Trimeth/Sulfamethoxazole [facility] II <=10 mcg/ml: Susceptible Staphylococcus aureus Vancomycin [facility] V[facility] II <=0.5 mcg/ml: Susceptible us Victoriano Reid MD MICROBIOLOGY - GENERAL ORDERABLE S Final Result [facility] [address] [place] [address], documented in this encounter Visit Diagnoses Diagnosis Neuromuscular dysfunction of bladder, unspecified Urinary tract infection, site not specified Personal history of urinary (tract) infections documented in this encounter Additional Health Concerns Infection Onset Date Last Indicated Resolved Time 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 06/05/2019 04/15/2021 7:28 AM CDT Assessment Noted Time PHQ-9 Depression Total Score: 0 10/24/19 11:16 AM ENTERPRISE APPLICATIONS MANAGER documented as of this encounter Care Teams Director Social Service Relationship Specialty Start Date End Date Victoriano Reid MD PCP - General Family Medicine 06/19/19 06/29/24 Elva Olivares DO 2 [facility] [address] [place] [address] PCP - General Family Medicine 07/01/24 Malissa Joe RN [place] Nurse Raw Stock Dyeing Machine Tender 12/03/23 12/03/23 Malissa Joe RN [place] Nurse Raw Stock Dyeing Machine Tender 12/05/23 12/05/23 Hinton, NUCLEAR EQUIPMENT OPERATOR [place] Refrigerating Engineer Raw Stock Dyeing Machine Tender 11/03/24 Cabrera Yadav MD #2 [facility] [address] [place] [address] Consulting Physician Urology 11/07/24 documented as of this encounter
--- OUTSIDE RECORDS SUMMARY | 2025-01-16 18:58 | XMS_ITS | Encounter Summary ---
Author Organization [facility] Address [address] [place] [address] Phone Care Team Providers Care Farm Truck Driver Name Role Phone Victoriano Reid MD Primary Care Provider [phone] Malissa Joe RN Unavailable Unavailable Malissa Joe RN Unavailable Unavailable Elva Olivares DO Primary Care Provider [phone] H[place] TEST CELL TECHNICIAN Unavailable Unaabdirizaki Cabrera Dodge MD Unavailable [phone] Encounter Details Date Type Department Care Team (Late st Contact Info) Description 11/23/2021 Lab Requisition [facility] Laboratory Services 1 [place] [address] Victoriano Reid MD #1 [place] [address] Social History Tobacco Use Types Packs/Day Years [...] 01/21/2025 10:30 AM CDT Clinical Support [facility] GROUP UROLOGY #2 [place] [address] Nurse, Ken Urology 02/02/2025 11:00 AM CDT [facility] 1 [facility] [place] [address] Cabrera Yadav MD #2 [facility] [address] [place] [address] Discharge Disposition: Discharged to home or Selfcare 02/10/2025 3:00 PM CDT [facility] Mamm[facility] 1 [place] [address] Elva Olivares, DO 2 [facility] [address] [place] [address] Discharge Disposition: Discharged to home or Selfcare 02/10/2025 4:00 PM CDT [facility]ment [facility] Ul[facility]ound 1 [place] [address] Elva Olivares, DO 2 [facility] [address] [place] [address] Discharge Disposition: Discharged to home or Selfcare 02/17/2025 1:40 PM CDT Hospital En[facility] Periop 1 [place] [address] Cabrera Yadav MD #2 [facility] [address] [place] [address] 02/17/2025 1:40 PM CDT - 02/17/2025 3:40 PM CDT [facility] Periop 1 [place] [address] Cabrera Yadav MD #2 [facility] [address] [place] [address] CYSTOSCOPY AND LITHOLAPAXY, PATIENT WILL NEED A PAUL LIFT 03/02/2025 8:40 AM CDT Office Visit [facility] Medical Group - Family Medicine [facility] #2 [place] [address] Elva Olivares DO 2 [facility] [address] [place] [address] Scheduled Procedures Name Priority Associated Diagnoses Date/Ti hi CYSTOSCOPY BLADDER STONE BLADDER STONES 02/17/2025 1:40 PM CDT documented as of this encounter Visit Diagnoses Not on filedocumented in this encounter Additional Health Concerns Assessment Noted Time PHQ-9 Depression Total Score: 0 08/15/20 21 10:00 AM CDT documented as of this encounter Care Teams Farm Truck Driver Relationship Specialty Start Date End Date Victoriano Reid MD PCP - General Family Medicine 06/19/19 06/29/24 Elva Olivares DO 2 [facility] [address] [place] [address] PCP - General Family Medicine 07/01/24 Malissa Joe, RN [place] Nurse Hydraulic Operator 12/03/23 12/03/23 Malissa Joe RN [place] Nurse Hydraulic Operator 12/05/23 12/05/23 [place]inton, TEST CELL TECHNICIAN [place] Manufacturing Engineer Paint Hydraulic Operator 11/03/24 Cabrera Yadav MD #2 [place] [address] Consulting Physician Urology 11/07/24 documented as of this encounter
--- OUTSIDE RECORDS SUMMARY | 2025-01-16 18:58 | XMS_ITS | Encounter Summary ---
Author Organization [facility] Address [address] [place] [address] Phone Care Team Providers Care Copyright Expert Name Role Phone Victoriano Reid MD Primary Care Provider [phone] Malissa Joe RN Unavailable Unavailable Malissa Joe RN Unavailable Unavailable Elva Olivares DO Primary Care Provider [phone] [place] MEAT INSPECTOR Unavailable Cabrera Smallwood MD Unavailable [phone] Reason for Visit * Reason Comments Medication Refill Encounter Details Date Type Department Care Team (Late st Contact Info) Description 09/21/2023 [facility]ill [facility] #[address] [place] [address] Victoriano Reid MD #[address] [place] [address] Medication Refill Social History Tobacco Use Types [...] Dept 03/29/23 Office Visit Victoriano Reid MD [facility] Showing recent visits within past 365 days and meeting all other requirements Future Appointments Date Type Provider Dept 10/01/23 Appointment Victoriano Reid MD [facility] Showing future appointments within next 90 days and meeting all other requirements 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 documented in this encounter Plan of Treatment Upcoming Encounters Date Type Department Care Team (Latest Contact Info) Description 01/21/2025 10:30 AM CDT Clinical Support [facility] UROLOGY #2 [place] [address] NurseKen Urology 02/02/2025 11:00 AM CDT [facility]ointment [facility] [address] [place] [address] Cabrera Yadav MD #[address] [address] Discharge Disposition: Discharged to home or Selfcare 02/10/2025 3:00 PM CDT Appointment [facility] Mammography [address] [place] [address] Elva Olivares, DO 2 [facility] [address] [place] [address] Discharge Disposition: Discharged to home or Selfcare 02/10/2025 4:00 PM CDT Appointment [facility] Ultrasound [address] [place] [address] Elva Olivares, DO 2 [facility] [address] [place] [address] Discharge Disposition: Discharged to home or Selfcare 02/17/2025 1:40 PM CDT Hospital Encounter [facility] Periop 1 [place] [address] Cabrera Yadav MD #2 [facility] [address] [place] [address] 02/17/2025 1:40 PM CDT - 02/17/2025 3:40 PM CDT Surgery [facility] Periop [address] [place] [address] Cabrera Yadav MD #[address] [address] CYSTOSCOPY AND LITHOLAPAXY, PATIENT WILL NEED A PAUL LIFT 03/02/2025 8:40 AM CDT Office Visit [facility] - Family [facility] #2 [place] [address] Elva Olivares, DO 2 [facility] [address] [place] [address] Scheduled Procedures Name Priority Associated Diagnoses Date/Ti la CYSTOSCOPY BLADDER STONE BLADDER STONES 02/17/2025 1:40 PM CDT documented as of this encounter Visit Diagnoses Diagnosis Allergic rhinitis, unspecified seasonality, unspecified trigger Neurogenic bladder Neurogenic bladder, NOS Painful bladder spasm Other symptoms involving urinary system documented in this encounter Additional Health Concerns Assessment Noted Time PHQ-9 Depression Total Score: 0 08/15/20 21 10:00 AM CDT documented as of this encounter Care Teams Copyright Expert Relationship Specialty Start Date End Date Victoriano Reid MD PCP - General Family Medicine 06/19/19 06/29/24 Elva Olivares DO 2 [facility] [address] [place] [address] PCP - General Family Medicine 07/01/24 Malissa Joe, RN [place] Nurse Concrete Stone Finisher 12/03/23 12/03/23 Malissa Joe, RN [place] Nurse Concrete Stone Finisher 12/05/23 12/05/23 [place], [facility] University Demonstrator Concrete Stone Finisher 11/03/24 Cabrera Yadav MD #2 [facility] [address] [place] [address] Consulting Physician Urology 11/07/24 documented as of this encounter
--- OUTSIDE RECORDS SUMMARY | 2025-01-16 18:58 | XMS_ITS | Encounter Summary ---
Author Organization [facility] Address [address] [place] [address] Phone Care Team Providers Care Glass Unloading Equipment Tender Name Role Phone Victoriano Reid MD Primary Care Provider Malissa Joe RN Unavailable Unavailable Malissa Joe RN Unavailable Unavailable Elva Olivares DO Primary Care Provider [phone] [place] [facility] Unavailable Cabrera Smallwood MD Unavailable [phone] Reason for Visit * Reason Comments Medication Refill Encounter Details Date Type Department Care Team (Late st Contact Info) Description 11/20/2023 Refill [facility] - Family [facility] #2 [place] [id number] Victoriano Reid MD #[address] [place] [address] Medication Refill Social History Tobacco Use Types Packs/Day Years Used Date Smoking Tobacco: Every Day Cigarettes Smokeless Tobacco: Never Alcohol Use Standard Drinks/Week Comments Not Currently 0 (1 standard drink = 0.6 oz pur e alcohol) [facility] Utilities Answer Date Recorded In the [...] often do you attend chur ch or oriental orthodox services? Never 10/22/2023 Do you belong to any clubs o r organizations such as judaism groups, unions, fraternal or athletic groups, or [...] Total Score - Questions 1-9 0 12/14 [facility] - Occupational [...] slept in a prison (including now)? No 10/22/2023 Education Answer Date [...] Type Provider Dept 10/23/23 Telemedicine Miriam Prasad, DIRECTOR SOFTWARE QUALITY ASSURANCE, MARINE DESIGNER [facility] 03/29/23 Office Visit Victoriano Reid MD [facility] Showing recent visits within past 365 days and meeting all other requirements Future Appointments Date Type Provider Dept 12/21/23 Appointment Victoriano Reid MD [facility] Ken Showing future appointments within next 90 [...] Type Provider Dept 10/23/23 Telemedicine Miriam Prasad, DIRECTOR SOFTWARE QUALITY ASSURANCE, MARINE DESIGNER [facility] Ken 03/29/23 Office Visit Victoriano Reid MD [facility] Ken Showing recent visits within past 365 days and meeting all other requirements Future Appointments Date Type Provider Dept 12/21/23 Appointment Victoriano Reid MD [facility] Ken Showing future appointments within next 90 days and meeting all other requirements 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 documented in this encounter Plan of Treatment Upcoming Encounters Date Type Department Care Team (Latest Contact Info) Description 01/21/2025 10:30 AM CDT Clinical Support [facility] UR[facility]Y #2 [place] [address] Nurse, Ken Urology 02/02/2025 11:00 AM CDT [facility] [place] [address] Cabrera Yadav MD #2 [facility] [address] [place] [address] Discharge Disposition: Discharged to home or Selfcare 02/10/2025 3:00 PM CDT [facility] 1 [place] [address] Elva Olivares, DO 2 [facility] [address] [place] [address] Discharge Disposition: Discharged to home or Selfcare 02/10/2025 4:00 PM CDT [facility] [address] [place] [address] Elva Olivares, DO 2 [facility] [address] [place] [address] Discharge Disposition: Discharged to home or Selfcare 02/17/2025 1:40 PM CDT [facility] 1 [facility] [place] [address] Cabrera Yadav MD #2 [facility] [address] [place] [address] 02/17/2025 1:40 PM CDT - 02/17/2025 3:40 PM CDT [facility] 1 [facility] [place] [address] Cabrera Yadav MD [address] [address] CYSTOSCOPY AND LITHOLAPAXY, PATIENT WILL NEED A PAUL LIFT 03/02/2025 8:40 AM CDT Office Visit [facility] - Family [facility] #2 [place] [address] Elva Olivares, DO 2 [facility] [address] [place] [address] Scheduled Procedures Name Priority Associated Diagnoses Date/Ti me CYSTOSCOPY BLADDER STONE BLADDER STONES 02/17/2025 1:40 PM CDT documented as of this encounter Visit Diagnoses Diagnosis Muscle spasm Spasm of muscle documented in this encounter Additional Health Concerns Assessment Noted Time PHQ-9 Depression Total Score: 0 08/15/20 21 10:00 AM CDT documented as of this encounter Care Teams Glass Unloading Equipment Tender Relationship Specialty Start Date End Date Victoriano Reid MD PCP - General Family Medicine 06/19/19 06/29/24 Elva Olivares DO 2 [facility] [address] [place] [address] PCP - General Family Medicine 07/01/24 Malissa Joe, RN [place] Nurse Regional Clinical Director 12/03/23 12/03/23 Malissa Joe, RN [place] Nurse Regional Clinical Director 12/05/23 12/05/23 [place], [facility] [place] Manager Stone Regional Clinical Director 11/03/24 Cabrera Yadav MD #2 [facility] [address] [place] [address] Consulting Physician Urology 11/07/24 documented as of this encounter
--- OUTSIDE RECORDS SUMMARY | 2025-01-16 18:58 | XMS_ITS | Encounter Summary ---
Author Organization [facility] Address [address] [place] [address] Phone Care Team Providers Care Container Washer Name Role Phone Victoriano Reid MD Primary Care Provider [phone] Malissa Joe RN Unavailable Unavailable Malissa Joe RN Unavailable Unavailable Elva Olivares DO Primary Care Provider [phone] [place] MOTOR BOSS Unavailable Unaabdirizaki Cabrera Dodge MD Unavailable [phone] Encounter Details Date Type Department Care Team (Late st Contact Info) Description 01/02/2022 Home Health Resumpti on of Care Planning [facility] [address] [place] [address] Social History Tobacco Use Types Packs/Day Years [...] Description 01/21/2025 10:30 AM CDT Clinical Support [facility]Y #[address] [place] [address] Nurse, Garth Urology 02/02/2025 11:00 AM CDT [facility] [address] [facility] [place] [address] Cabrera Yadav MD #2 [facility] [address] [place] [address] Discharge Disposition: Discharged to home or Selfcare 02/10/2025 3:00 PM CDT [facility] 1 [facility] [place] [address] Elva Olivares, DO 2 [facility] [address] [place] [address] Discharge Disposition: Discharged to home or Selfcare 02/10/2025 4:00 PM CDT [facility] Ul[facility] 1 [facility] [place] [address] Elva Olivares, DO 2 [facility] [address] [place] [address] Discharge Disposition: Discharged to home or Selfcare 02/17/2025 1:40 PM CDT Hospital [facility] Per[facility] 1 [facility] [place] [address] Cabrera Yadav MD #2 [facility] [address] [place] [address] 02/17/2025 1:40 PM CDT - 02/17/2025 3:40 PM CDT [facility] 1 [place] [address] Cabrera Yadav MD #2 [facility] [address] [place] [address] CYSTOSCOPY AND LITHOLAPAXY, PATIENT WILL NEED A PAUL LIFT 03/02/2025 8:40 AM CDT Office Visit [facility] - Family Medicine [facility] #2 [place] [address] Elva Olivares DO 2 [facility] [address] [place] [address] Scheduled Procedures Name Priority Associated Diagnoses Date/Ti la CYSTOSCOPY BLADDER STONE BLADDER STONES 02/17/2025 1:40 PM CDT documented as of this encounter Visit Diagnoses Not on filedocumented in this encounter Additional Health Concerns Assessment Noted Time PHQ-9 Depression Total Score: 0 08/15/20 21 10:00 AM CDT documented as of this encounter Care Teams Container Washer Relationship Specialty Start Date End Date Victoriano Reid MD PCP - General Family Medicine 06/19/19 06/29/24 Elva Olivares DO 2 [facility] [address] [place] [address] PCP - General Family Medicine 07/01/24 Malissa Joe RN [place] Nurse Tax Professional 12/03/23 12/03/23 Malissa Joe RN [place] Nurse Tax Professional 12/05/23 12/05/23 [place], MOTOR BOSS [place] Home Theater Installer Tax Professional 1/20/25 1/24/ 25 Cabrera Yadav MD #[address] [address] Consulting Physician Urology 11/07/24 documented as of this encounter
--- OUTSIDE RECORDS SUMMARY | 2025-01-16 18:58 | XMS_ITS | Encounter Summary ---
Author Organization [facility] Address [address] [place] [address] Phone Care Team Providers Care Physical Medicine Physician Name Role Phone Victoriano Reid MD Primary Care Provider [phone] Malissa Joe RN Unavailable Unavailable Malissa Joe RN Unavailable Unavailable Elva Olivares DO Primary Care Provider [phone] [place] FILAMENT WOUND PARTS FABRICATOR Unavailable Unaabdirizaki Cabrera Dodge MD Unavailable [phone] Encounter Details Date Type Department Care Team (Late st Contact Info) Description 10/17/2022 Lab Requisition [facility] [address] [place] [phone] Victoriano Reid MD #1 [place] [address] Social History Tobacco Use Types Packs/Day Years [...] Coronavirus/COVID-19? No / Unsure 09/19/2022 9:13 AM MILITARY SCIENCE INSTRUCTOR documented as of this encounter Plan of Treatment Upcoming Encounters Date Type Department Care Team (Latest Contact Info) Description 01/21/2025 10:30 AM CDT Clinical Support [facility]Y #2 [place] [address] Nurse, [facility] [facility] 02/02/2025 11:00 AM CDT [facility]ment [facility] [address] [place] [address] Cabrera Yadav MD #[address] [address] Discharge Disposition: Discharged to home or Selfcare 02/10/2025 3:00 PM CDT [facility]ointment [facility] Mammography [address] [place] [address] Elva Olivares, DO 2 [facility] [address] [place] [address] Discharge Disposition: Discharged to home or Selfcare 02/10/2025 4:00 PM CDT Appointment [facility] Ultrasound [address] [place] [address] Elva Olivares, DO 2 [facility] [address] [place] [address] Discharge Disposition: Discharged to home or Selfcare 02/17/2025 1:40 PM CDT Hospital En[facility] Periop [address] [facility] [address] Cabrera Yadav MD #2 [facility] [address] [place] [address] 02/17/2025 1:40 PM CDT - 02/17/2025 3:40 PM CDT Surgery [facility] Periop 1 [facility] [place] [address] Cabrera Yadva MD #2 [facility] [address] [place] [address] CYSTOSCOPY AND LITHOLAPAXY, PATIENT WILL NEED A PAUL LIFT 03/02/2025 8:40 AM CDT Office Visit [facility] - [facility] #2 [place] [address] Elva Olivares, DO [address] [address] Scheduled Procedures Name Priority Associated Diagnoses Date/Ti me CYSTOSCOPY BLADDER STONE BLADDER STONES 02/17/2025 1:40 PM CDT documented as of this encounter Procedures Procedure Name Priority Date/Time Associated Diagnosis Comments VITAMIN D, 25 HYDROXY TOTAL Routine 10/17/2022 11:44 AM MILITARY SCIENCE INSTRUCTOR HEMOGLOBIN A1C W/ ESTIMATED GLUCOSE Routine 10/17/2022 11:44 AM MILITARY SCIENCE INSTRUCTOR CBC WITH AUTO DIFFERENTIAL Routine 10/17/2022 11:44 AM MILITARY SCIENCE INSTRUCTOR VITAMIN B12 Routine 10/17/2022 11:44 AM MILITARY SCIENCE INSTRUCTOR UR MICROALBUMIN/CREATINI NE RATIO RANDOM Routine 10/17/2022 11:44 AM MILITARY SCIENCE INSTRUCTOR THYROXINE (T4) TOTAL Routine 10/17/2022 11:44 AM MILITARY SCIENCE INSTRUCTOR THYROID STIMULATING HORMONE (TSH) Routine 10/17/2022 11:44 AM MILITARY SCIENCE INSTRUCTOR LIPID PANEL Routine 10/17/2022 11:44 AM MILITARY SCIENCE INSTRUCTOR CMP (COMPREHENSIVE METABOLIC PANEL) Routine 10/17/2022 11:44 AM MILITARY SCIENCE INSTRUCTOR COMPLETE BLOOD COUNT (CBC) WITH DIFF Routine 10/17/2022 11:44 AM MILITARY SCIENCE INSTRUCTOR documented in this encounter Results * (ABNORMAL) CBC WITH AUTO DIFFERENTIAL (10/17/2022 11:44 AM MILITARY SCIENCE INSTRUCTOR) [facility] WBC 9.55 4.00 - 12.00 10(3)/mcL 10/17/2022 1:35 PM MILITARY SCIENCE INSTRUCTOR [facility] RBC 4.47 3.80 - 5.30 10(6)/mcL 10/17/2022 1:35 PM MILITARY SCIENCE INSTRUCTOR [facility] HEMOGLOBIN (HGB) 15.0 12.0 - 15.8 g/dL 10/17/2022 1:35 PM MILITARY SCIENCE INSTRUCTOR [facility] HEMATOCRIT (HCT) 45.0 36.0 - 47.0 % 10/17/2022 1:35 PM MILITARY SCIENCE INSTRUCTOR [facility] MCV 100.7(H) 82.0 - 96.0 fL 10/17/2022 1:35 PM MILITARY SCIENCE INSTRUCTOR [facility] MCH 33.6 26.0 - 34.0 pg 10/17/2022 1:35 PM MILITARY SCIENCE INSTRUCTOR [facility] MCHC 33.3 31.0 - 36.0 g/dL 10/17/2022 1:35 PM MILITARY SCIENCE INSTRUCTOR [facility] PLATELET COUNT 164 140 - 440 10(3)/mcL 10/17/2022 1:35 PM MILITARY SCIENCE INSTRUCTOR [facility] RDW 14.3 11.8 - 15.5 % 10/17/2022 1:35 PM MILITARY SCIENCE INSTRUCTOR [facility] MPV 11.9 9.7 - 12.4 fL 10/17/2022 1:35 PM MILITARY SCIENCE INSTRUCTOR [facility] NEUTROPHILS 51.6 47.0 - 73.0 % 10/17/2022 1:35 PM MILITARY SCIENCE INSTRUCTOR [facility] LYMPHOCYTES 37.1 18.0 - 42.0 % 10/17/2022 1:35 PM MILITARY SCIENCE INSTRUCTOR [facility] MONOCYTES 6.8 4.0 - 12.0 % 10/17/2022 1:35 PM MILITARY SCIENCE INSTRUCTOR [facility] EOSINOPHILS 3.5 0.0 - 5.0 % 10/17/2022 1:35 PM MILITARY SCIENCE INSTRUCTOR [facility] BASOPHILS 1.0 0.0 - 1.0 % 10/17/2022 1:35 PM MILITARY SCIENCE INSTRUCTOR [facility] ABSOLUTE NEUTROPHILS 4.93 1.60 - 7.70 10(3)/[facility] 10/17/2022 1:35 PM MILITARY SCIENCE INSTRUCTOR [facility] ABSOLUTE LYMPHOCYTES 3.54(H) 1.30 - 3.20 10(3)/[facility] 10/17/2022 1:35 PM MILITARY SCIENCE INSTRUCTOR [facility] ABSOLUTE MONOCYTES 0.65 0.20 - 1.00 10(3)/[facility] 10/17/2022 1:35 PM MILITARY SCIENCE INSTRUCTOR [facility] ABSOLUTE EOSINOPHIL 0.33 0.00 - 0.40 10(3)/[facility] 10/17/2022 1:35 PM MILITARY SCIENCE INSTRUCTOR [facility] ABSOLUTE BASOPHILS 0.10 0.00 - 0.10 10(3)/[facility] 10/17/2022 1:35 PM [facility] NRBC PER 100 WBC 0 10/17/19 1:35 PM [facility] Blood No Phlebotomy Charged / Unknown 10/17/2022 11:44 AM MILITARY SCIENCE INSTRUCTOR 10/17/2022 1:31 PM MILITARY SCIENCE INSTRUCTOR us Victoriano Reid MD HEMATOLOGY ORDERABLES Final Resu lt [facility] #[address] [place] [address] * UR MICROALBUMIN/CREATININE RATIO RANDOM (10/17/2022 11:44 AM MILITARY SCIENCE INSTRUCTOR) [facility] RAN UR MICROALBUMIN <=1.20 <=2.00 mg/dL 10/17/2022 2:35 PM MILITARY SCIENCE INSTRUCTOR [facility] CREATININE URINE 63.5 28.0 - 217.0 mg/dL 10/17/2022 2:35 PM MILITARY SCIENCE INSTRUCTOR [facility] ALB/CREAT RATIO 2:35 PM MILITARY SCIENCE INSTRUCTOR [facility] Comment:Unable to calculate Urine Non-Phlebotomy Collection / Unknown 10/17/2022 11:44 AM MILITARY SCIENCE INSTRUCTOR 10/17/2022 1:31 PM MILITARY SCIENCE INSTRUCTOR us Victoriano Reid MD URINE ORDERABLES Final Result Performing Organization Address City/[facility]/ZIP Co de Phone Number [facility] [address] [place] [address] * THYROID STIMULATING HORMONE (TSH) (10/17/2022 11:44 AM MILITARY SCIENCE INSTRUCTOR) [facility] TSH 2.760 0.270 - 4.200 mIU/L 10/17/2022 2:33 PM MILITARY SCIENCE INSTRUCTOR [facility] Blood No Phlebotomy Charged / Unknown 10/17/2022 11:44 AM MILITARY SCIENCE INSTRUCTOR 10/17/2022 1:31 PM MILITARY SCIENCE INSTRUCTOR us Victoriano Reid MD CHEMISTRY ORDERABLES Final Resul t Performing Organization Address City/[facility]/ZIP Co de Phone Number [facility] [address] [place] [address] * (ABNORMAL) HEMOGLOBIN A1C W/ ESTIMATED GLUCOSE (10/17/2022 11:44 AM MILITARY SCIENCE INSTRUCTOR) [facility] HGB-A1C 6.3(H) 4.0 - 6.0 % 10/17/2022 2:17 PM MILITARY SCIENCE INSTRUCTOR [facility] Est Average Glucose 134.1 mg/dL 10/17/2022 2:17 PM MILITARY SCIENCE INSTRUCTOR [facility] Blood No Phlebotomy Charged / Unknown 10/17/2022 11:44 AM MILITARY SCIENCE INSTRUCTOR 10/17/2022 1:31 PM MILITARY SCIENCE INSTRUCTOR Narrative [facility] - 10/17/2022 2:17 PM MILITARY SCIENCE INSTRUCTOR HEMOGLOBIN A1C: DIABETIC PATIENTS: WELL-CONTROLLED: 6.2 - 7.0 INTERMEDIATE WELL-CONTROLLED: 7.0 - 9.0 POORLY-CONTROLLED: >9.0 Victoriano Reid MD CHEMISTRY ORDERABLES Final Resul t Performing Organization Address City/[facility]/RUST Co de Phone Number [facility] #[address] [place] [address] * THYROXINE (T4) TOTAL (10/17/2022 11:44 AM MILITARY SCIENCE INSTRUCTOR) T4 9.2 4.5 - 12.0 mcg/dL 10/17/2022 2:33 PM MILITARY SCIENCE INSTRUCTOR [facility] Blood No Phlebotomy Charged / Unknown 10/17/2022 11:44 AM MILITARY SCIENCE INSTRUCTOR 10/17/2022 1:31 PM MILITARY SCIENCE INSTRUCTOR us Victoriano Reid MD CHEMISTRY ORDERABLES Final Resul t Performing Organization Address [facility]/[place] Co de Phone Number [facility] [address] [place] [address] * VITAMIN D, 25 HYDROXY TOTAL (10/17/2022 11:44 AM MILITARY SCIENCE INSTRUCTOR) VITAMIN D, 25 HYDROX 67 >=30 ng/mL 10/17/2022 2:35 PM MILITARY SCIENCE INSTRUCTOR [facility] Blood No Phlebotomy Charged / Unknown 10/17/2022 11:44 AM MILITARY SCIENCE INSTRUCTOR 10/17/2022 1:31 PM MILITARY SCIENCE INSTRUCTOR Narrative [facility] - 10/17/2022 2:35 PM MILITARY SCIENCE INSTRUCTOR Published reference ranges for Vitamin D vary depending on time and place and method of testing, and on patient's age, sex, ethnicity and levels of other measured analytes such as parathormone, calcium and phosphorus. The result should be evaluated in conjunction with clinical findings and suspicions. [place] of Medicine and Endocrine Clinical Practice Guidelines: Status Vitamin D levels (ng/mL) Deficient <=20 At risk of inadequacy 21-29 Sufficient 30-100 Centers of Disease Control and Prevention Guidelines: Status Vitamin D levels (ng/mL) Deficient <13 At risk of inadequacy 13-19 Sufficient 20-50 Possibly harmful >50 References: [place] of Medicine, 2010 Dietary reference intakes for calcium and vitamin D. [place]: The National Academies Press. Nkechi M, Jasmin N, Nicholas TOLEDO, et al., Evaluation, treatment, and prevention of Vitamin D deficiency: an Endocrinology Clinical Practice Guideline. JCEM 2011 96: 7 0761-0823. Lawson A, Josue C, Glo D, et al., Vitamin D Status: [place], 5014-6680, [facility] data brief, no. 59, MD [place]: National Center for Health Statistics. 2011. Victoriano Reid MD CHEMISTRY ORDERABLES Final Resul t Performing Organization Address City/[facility]/ZIP Co de Phone Number [facility] [address] [place] [address] * VITAMIN B12 (10/17/2022 11:44 AM MILITARY SCIENCE INSTRUCTOR) VITAMIN B12 383 243 - 894 pg/mL 10/17/2022 2:34 PM MILITARY SCIENCE INSTRUCTOR [facility] Blood No Phlebotomy Charged / Unknown 10/17/2022 11:44 AM MILITARY SCIENCE INSTRUCTOR 10/17/2022 1:31 PM MILITARY SCIENCE INSTRUCTOR Victoriano Reid MD CHEMISTRY ORDERABLES Final Resul t Performing Organization Address City/[facility]/ZIP Co de Phone Number [facility] [address] [place] [address] * LIPID PANEL (10/17/2022 11:44 AM MILITARY SCIENCE INSTRUCTOR) CHOLESTEROL 150 <=200 mg/dL 10/17/2022 2:33 PM MILITARY SCIENCE INSTRUCTOR [facility] TRIGLYCERIDES 114 <150 mg/dL 10/17/2022 2:33 PM MILITARY SCIENCE INSTRUCTOR [facility] HDL CHOLESTEROL 40.5 >40 mg/dL 2:33 PM MILITARY SCIENCE INSTRUCTOR [facility] LDL 87 5 - 130 mg/dL 10/17/2022 2:33 PM MILITARY SCIENCE INSTRUCTOR [facility] VLDL 23 5 - 55 mg/dL 10/17/2022 2:33 PM MILITARY SCIENCE INSTRUCTOR [facility] CHOL/HDL RATIO 3.7 0.0 - 4.4 10/17/2022 2:33 PM MILITARY SCIENCE INSTRUCTOR [facility] NON-HDL CHOLESTEROL 109.5 <130 mg/dL 10/17/2022 2:33 PM MILITARY SCIENCE INSTRUCTOR [facility] Blood No Phlebotomy Charged / Unknown 10/17/2022 11:44 AM MILITARY SCIENCE INSTRUCTOR 10/17/2022 1:31 PM MILITARY SCIENCE INSTRUCTOR us Victoriano Reid MD CHEMISTRY ORDERABLES Final Resul t [facility] #[address] [place] [address] * (ABNORMAL) CMP (COMPREHENSIVE METABOLIC PANEL) (10/17/2022 11:44 AM MILITARY SCIENCE INSTRUCTOR) SODIUM 140 136 - 144 mmol/L 10/17/2022 2:33 PM MILITARY SCIENCE INSTRUCTOR [facility] POTASSIUM 4.3 3.5 - 5.1 mmol/L 10/17/2022 2:33 PM [facility] CHLORIDE 104 100 - 110 mmol/L 10/17/2022 2:33 PM MILITARY SCIENCE INSTRUCTOR [facility] CO2, VENOUS 25 22 - 32 mmol/L 10/17/2022 2:33 PM MILITARY SCIENCE INSTRUCTOR [facility] ANION GAP 15.3 8.0 - 20.0 mmol/L 10/17/2022 2:33 PM [facility] GLUCOSE 137(H) 70 - 99 mg/dL 10/17/2022 2:33 PM MILITARY SCIENCE INSTRUCTOR [facility] BUN 17 8 - 23 mg/dL 10/17/2022 2:33 PM [facility] CREATININE, BLOOD 0.77 0.60 - 1.10 mg/dL 10/17/2022 2:33 PM [facility] BUN/CREATININE RATIO 22(H) 12 - 20 ratio 10/17/2022 2:33 PM [facility] TOTAL PROTEIN 6.9 6.0 - 8.3 g/dL 10/17/2022 2:33 PM [facility] ALBUMIN 4.0 3.5 - 5.2 g/dL 10/17/2022 2:33 PM [facility] Comment: The colormetric methods used for the determination of Albumin may lead to falsely elevated test results in patients suffering from renal failure or insufficiency due to interference with other proteins. A/G RATIO 1.4 1.0 - 2.0 10/17/2022 2:33 PM [facility] CALCIUM 9.8 8.9 - 10.3 mg/dL 10/17/2022 2:33 PM [facility] T BILI <0.3 <=1.2 mg/dL 10/17/2022 2:33 PM [facility] SGOT (AST) 13 <=32 U/L 10/17/2022 2:33 PM [facility] SGPT (ALT) 9 <=41 U/L 10/17/2022 2:33 PM [facility] ALKALINE PHOSPHATASE 82 35 - 105 U/L 10/17/2022 2:33 PM [facility] GFR, ESTIMATED >60 >=60 10/17/2022 2:33 PM [facility] Comment: Creatinine Clearance is the preferred criteria for selecting drug dose adjustments in renally impaired patients. The GFR is provided as additional pertinent clinical information. GFR is reported in mL/min/1.73 sq m. Calculation based on the Chronic Kidney Disease Epidemiology Collaboration (CKD- EPI) equation refit without adjustment for race. GFR, EST. >60 >=60 023 2:33 PM [facility] GFR, EST. NONAFRICAN >60 >=60 10/17/2022 2:33 PM MILITARY SCIENCE INSTRUCTOR [facility] Blood No Phlebotomy Charged / Unknown 10/17/2022 11:44 AM MILITARY SCIENCE INSTRUCTOR 10/17/2022 1:31 PM MILITARY SCIENCE INSTRUCTOR Victoriano Reid MD CHEMISTRY ORDERABLES Final Resul t [facility] #[address] [place] [address] documented in this encounter Visit Diagnoses Not on filedocumented in this encounter Additional Health Concerns Assessment Noted Time PHQ-9 Depression Total Score: 0 08/15/20 21 10:00 AM CDT documented as of this encounter Care Teams Physical Medicine Physician Relationship Specialty Start Date End Date Victoriano Reid MD PCP - General Family Medicine 06/19/19 06/29/24 Elva Olivares DO 2 [facility] [address] [place] [address] PCP - General Family Medicine 07/01/24 Malissa Joe, RN [place] Nurse Oracle Architect 12/03/23 12/03/23 Malissa Joe RN [place] Nurse Oracle Architect 12/05/23 12/05/23 [place], FILAMENT WOUND PARTS FABRICATOR [place] Blueprint Machine Operator Oracle Architect 11/03/24 Cabrera Yadav MD #2 [facility] [address] [place] [address] Consulting Physician Urology 11/07/24 documented as of this encounter
--- OUTSIDE RECORDS SUMMARY | 2025-01-16 18:58 | XMS_ITS | Encounter Summary ---
Author Organization [facility] Address [address] [place] [address] Phone Care Team Providers Care Child Development Teacher Name Role Phone Victoriano Reid MD Primary Care Provider [phone] Malissa Joe RN Unavailable Unavailable Malissa Joe RN Unavailable Unavailable Elva Olivares DO Primary Care Provider [phone] [place] INFORMATION TECHNOLOGY CONSULTANT Unavailable Cabrera Smallwood MD Unavailable [phone] Reason for Visit * Reason Comments Medication Refill Encounter Details Date Type Department Care Team (Late st Contact Info) Description 09/05/2021 [facility]ill [facility] [place] [address] [place] [address] Singh Myrick APRN, ORCHID GROWER [address] [address] Medication Refill Social History Tobacco Use Types [...] [facility] 02/14/21 Telemedicine Victoriano Reid MD [facility] Ken Showing recent visits within past 365 days and meeting all other requirements Future Appointments No visits were found meeting these conditions. Showing future appointments within next 90 days and meeting all other requirements MARKETING SPECIALIST documented in this encounter Plan of Treatment Upcoming Encounters Date Type Department Care Team (Latest Contact Info) Description 01/21/2025 10:30 AM CDT Clinical Support [facility]Y #[address] [place] [address] Nurse, [facility] 02/02/2025 11:00 AM CDT Appointment [facility] CT [address] [place] [address] Cabrera Yadav MD #[address] [facility] [address] [place] [address] Discharge Disposition: Discharged to home or Selfcare 02/10/2025 3:00 PM CDT [facility] 1 [facility] [place] [address] Elva Olivares, DO 2 Magda [facility] [address] [place] [address] Discharge Disposition: Discharged to home or Selfcare 02/10/2025 4:00 PM CDT Appointment [facility] Ultrasound 1 [facility] [address] Elva Olivares, DO 2 [facility] [address] [place] [address] Discharge Disposition: Discharged to home or Selfcare 02/17/2025 1:40 PM CDT Hospital Encounter [facility] Periop [address] [place] [address] Cabrera Yadav MD [address] [address] 02/17/2025 1:40 PM CDT - 02/17/2025 3:40 PM CDT Surgery [facility]iop [address] [place] [address] Cabrera Yadav MD #[address] [address] CYSTOSCOPY AND LITHOLAPAXY, PATIENT WILL NEED A PAUL LIFT 03/02/2025 8:40 AM CDT Office Visit [facility] #[address] [place] [address] Elva Olivares DO 2 Magda [facility] [address] [place] [address] Scheduled Procedures Name Priority Associated Diagnoses Date/Ti me CYSTOSCOPY BLADDER STONE BLADDER STONES 02/17/2025 1:40 PM CDT documented as of this encounter Visit Diagnoses Not on filedocumented in this encounter Additional Health Concerns Assessment Noted Time PHQ-9 Depression Total Score: 0 08/15/20 21 10:00 AM CDT documented as of this encounter Care Teams Child Development Teacher Relationship Specialty Start Date End Date Victoriano Reid MD PCP - General Family Medicine 06/19/19 06/29/24 Elva Olivares DO 2 [facility] [address] [place] [address] PCP - General Family Medicine 07/01/24 Malissa Joe, RN [place] Nurse Mixing Picker Tender 12/03/23 12/03/23 Malissa Joe, RN [place] Nurse Mixing Picker Tender 12/05/23 12/05/23 [place], [facility] [place] Merchandise Collector Mixing Picker Tender 11/03/24 Cabrera Yadav MD [address] [address] Consulting Physician Urology 11/07/24 documented as of this encounter
--- OUTSIDE RECORDS SUMMARY | 2025-01-16 18:58 | XMS_ITS | Encounter Summary ---
Author Organization [facility] Address [address] [place] [address] Phone Care Team Providers Care Cigarette Roller Name Role Phone Victoriano Reid MD Primary Care Provider [phone] Malissa Joe RN Unavailable Unavailable Malissa Joe RN Unavailable Unavailable Elva Olivares DO Primary Care Provider [phone] [place] CORPORATE LAWYER Unavailable Cabrera Smallwood MD Unavailable [phone] Reason for Visit * Reason Comments Medication Refill Encounter Details Date Type Department Care Team (Late st Contact Info) Description 07/01/2023 Refill [facility] Medicine [facility] #2 [place] [address] Victoriano Reid MD #1 [place] [address] Medication Refill Social History Tobacco Use Types [...] Office Visit Victoriano Reid MD [facility] 09/19/22 Office Visit [facility] Showing recent visits within past 365 days and meeting all other requirements Future Appointments No visits were found meeting these conditions. Showing future appointments within next 90 days and meeting all other requirements documented in this encounter Plan of Treatment Upcoming Encounters Date Type Department Care Team (Latest Contact Info) Description 01/21/2025 10:30 AM CDT Clinical Support [facility] UROLOGY #2 [place] [address] Nurse, Ken Urology 02/02/2025 11:00 AM CDT [facility] [address] [place] [address] Cabrera Yadav MD #[address] [address] Discharge Disposition: Discharged to home or Selfcare 02/10/2025 3:00 PM CDT Appointment [facility] Mammography [address] [place] [address] Elva Olivares, DO 2 [facility] [address] [place] [address] Discharge Disposition: Discharged to home or Selfcare 02/10/2025 4:00 PM CDT Appointment [facility] Ultrasound 1 [facility] [place] [address] Elva Olivares, DO 2 [facility] [address] [place] [address] Discharge Disposition: Discharged to home or Selfcare 02/17/2025 1:40 PM CDT Hospital [facility] 1 [facility] [place] [address] Cabrera Yadav MD #[address] [address] 02/17/2025 1:40 PM CDT - 02/17/2025 3:40 PM CDT Surgery [facility] Periop 1 [facility] [place] [address] Cabrera Yadav MD #[address] [place] [address] CYSTOSCOPY AND LITHOLAPAXY, PATIENT WILL NEED A PAUL LIFT 03/02/2025 8:40 AM CDT Office Visit [facility] Medical [facility] - Family Medicine 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 [address] [place] [address] PCP - General Family Medicine 07/01/24 Malissa Joe, RN [place] Nurse Heavy Forger Helper 12/03/23 12/03/23 Malissa Joe, RN [place] Nurse Heavy Forger Helper 12/05/23 12/05/23 [place], CORPORATE LAWYER [place] Special Warfare Combatant Crewman Heavy Forger Helper 11/03/24 Cabrera Yadav MD #[address] [facility] [address] [place] [address] Consulting Physician Urology 11/07/24 documented as of this encounter
--- OUTSIDE RECORDS SUMMARY | 2025-01-16 18:58 | XMS_ITS | Encounter Summary ---
Author Organization [facility] Address [address] [place] [address] Phone Care Team Providers Care Commercial Property Manager Name Role Phone Victoriano Reid MD Primary Care Provider [phone] Malissa Joe RN Unavailable Unavailable Malissa Joe RN Unavailable Unavailable Elva Olivaers DO Primary Care Provider [phone] [place] SENIOR USER EXPERIENCE ARCHITECT Unavailable Unaabdirizaki Cabrera Dodge MD Unavailable [phone] Encounter Details Date Type Department Care Team (Late st Contact Info) Description 05/22/2023 Lab Requisition [facility] Laboratory Services 1 [place] [id number] Victoriano Reid MD #1 [place] [address] Urinary tract infection, site not specified Social [...] Description 01/21/2025 10:30 AM CDT Clinical Support [facility] UROLOGY #2 [place] [address] Nurse, Ken Urology 02/02/2025 11:00 AM CDT [facility] [place] [address] Cabrera Yadav MD #2 [facility] [address] [place] [address] Discharge Disposition: Discharged to home or Selfcare 02/10/2025 3:00 PM CDT [facility] Mammography 1 [place] [address] Elva Olivares, DO 2 [facility] [address] [place] [address] Discharge Disposition: Discharged to home or Selfcare 02/10/2025 4:00 PM CDT [facility]ointment [facility] Ul[facility]ound 1 [facility] [place] [address] Elva Olivares, DO 2 [facility] [address] [place] [address] Discharge Disposition: Discharged to home or Selfcare 02/17/2025 1:40 PM CDT Hospital En[facility] Periop 1 [facility] [place] [address] Cabrera Yadav MD #2 [facility] [address] [place] [address] 02/17/2025 1:40 PM CDT - 02/17/2025 3:40 PM CDT [facility] Periop 1 [facility] [place] [address] Cabrera Yadav MD #2 [facility] [address] [place] [address] CYSTOSCOPY AND LITHOLAPAXY, PATIENT WILL NEED A PAUL LIFT 03/02/2025 8:40 AM CDT Office Visit [facility] Medical Group - Family Medicine - [place] #2 [place] [address] Elva Olivares, DO 2 [facility]. [address] [place] [address] Scheduled Procedures Name Priority Associated Diagnoses Date/Ti [...] RESULTS CITROBACTER AMALONATICUS 05/27/2023 3:22 PM CDT [facility] CULTURE RESULTS ALSO MIXED GROWTH OF DISTAL URETHRA CONTAMINANTS. 05/27/2023 3:22 PM CDT [facility] Urine Non-Phlebotomy Collection / [...] GENERAL ORDERABLE S Edited Result - Final [facility] [address] [facility] [place] [address], * (ABNORMAL) URINALYSIS REFLEX IF INDICATED BY ABNORMAL RESULTS (05/22/2023 1:00 PM CDT) SPECIFIC GRAVITY 1.010 1.003 - 1.030 05/22/2023 2:36 PM CDT [facility] URINE PH 7.0 5.0 - 9.0 05/22/2023 2:36 PM CDT [facility] WBC ESTERASE 500 /uL(A) Negative 05/22/2023 2:36 PM CDT [facility] NITRITE Positive(A) Negative 05/22/2023 2:36 PM CDT [facility] PROTEIN, RANDOM URINE 30 mg/dL(A) Negative 05/22/2023 2:36 PM CDT [facility] URINE GLUCOSE, QUAL Negative Negative 05/22/2023 2:36 PM CDT [facility] URINE KETONES Negative Negative 05/22/2023 2:36 PM CDT [facility] UROBILINOGEN Normal Normal mg/dL 05/22/2023 2:36 PM CDT [facility] URINE BLOOD 250 /uL(A) Negative josefa/ul 05/22/2023 2:36 PM CDT [facility] URINALYSIS COLOR Yellow 05/22/2023 2:36 PM CDT [facility] URINALYSIS CLARITY Slightly Cloudy 05/22/2023 2:36 PM CDT [facility] WBC (Urine) 11-20(A) Negative, 0-5 /hpf 05/22/2023 2:36 PM CDT [facility] URINE RBC'S 51-150(A) Negative, 0-2 /hpf 05/22/2023 2:36 PM CDT [facility] EPITHELIAL CELLS Occasional /lpf 05/22/2023 2:36 PM CDT [facility] BACTERIA, URINE Packed(A) Negative /hpf 05/22/2023 2:36 PM CDT [facility] Urine Non-Phlebotomy Collection / Unknown 05/22/2023 1:00 PM CDT 05/22/2023 2:04 PM CDT us Victoriano Reid MD URINE ORDERABLES Final Result [facility] #1 [place] [address] documented in this encounter Visit Diagnoses Diagnosis Urinary tract infection, site not specified documented in this encounter Additional Health Concerns Assessment Noted Time PHQ-9 Depression Total Score: 0 08/15/20 21 10:00 AM CDT documented as of this encounter Care Teams Commercial Property Manager Relationship Specialty Start Date End Date Victoriano Reid MD PCP - General Family Medicine 06/19/19 06/29/24 Elva Olivares DO 2 [facility] [address] [place] [address] PCP - General Family Medicine 07/01/24 Malissa Joe, RN [place] Nurse [employer] Sales Manager 12/03/23 12/03/23 Malissa Joe, RN [place] Nurse [employer] Sales Manager 12/05/23 12/05/23 [place], [facility] [place] Sales Support Representative [employer] Sales Manager 11/03/24 Cabrera Yadav MD #2 [facility] [address] [place] [address] Consulting Physician Urology 11/07/24 documented as of this encounter
--- OUTSIDE RECORDS SUMMARY | 2025-01-16 18:58 | XMS_ITS | Encounter Summary ---
Author Organization [facility] Address [address] [place] [address] Phone Care Team Providers Care Gravity Meter Observer Name Role Phone Victoriano Reid MD Primary Care Provider [phone] Malissa Joe RN Unavailable Unavailable Malissa Joe RN Unavailable Unavailable Elva Olivares DO Primary Care Provider [phone] [place] [employer] ADVISORS Unavailable UnaCabrera Nevarez MD Unavailable [phone] Reason for Visit * Reason Comments Medication Refill Encounter Details Date Type Department Care Team (Late st Contact Info) Description 03/24/2021 Refill [facility] #2 [place] [address] Sathish Loomis MD #[address] [address] Medication Refill Social History Tobacco Use Types [...] Outpatient Visits 1 month ago Paraplegia (HCC) [facility] - Victoriano Beck MD 7 months ago Acute cystitis with hematuria [facility] - Victoriano Beck MD 1 year ago Paralysis of both lower limbs (HCC) [facility] Victoriano Toledo MD 1 year ago Uncontrolled type 2 diabetes mellitus with hyperglycemia ([facility]) [facility] Victoriano Toledo MD 1 year ago Spinal cord compression due to malignant neoplasm metastatic to spine ([facility]) [facility] Victoriano Toledo MD Upcoming Appointments Future Appointments In 4 days Lissy Silva MSW [facility] In 5 days Nenita Fernandes LPN [facility] In 1 week Sharonda Carrion PTA [facility] In 1 week Nenita Fernandes, MOLTEN IRON POURER [facility] In 2 weeks Nenita Fernandes LPN [facility] In 3 weeks Nenita Fernandes LPN [facility] In 1 month Naa Rios RN [facility] SUPPORT SERVICE TECH - Recent and Past Visits Recent Visits Date Type Provider Dept 02/14/21 Telemedicine Victoriano Reid MD [facility] 08/06/20 Telemedicine Victoriano Reid MD [facility] 01/22/20 Telemedicine Victoriano Reid MD [facility] Ken Showing recent visits within past 460 [...] Description 01/21/2025 10:30 AM CDT Clinical Support [facility] UROLOGY #2 [place] [address] NurseKen Urology 02/02/2025 11:00 AM CDT [facility] 1 [place] [address] Cabrera Yadav MD #[address] [address] Discharge Disposition: Discharged to home or Selfcare 02/10/2025 3:00 PM CDT Appointment [facility] Mammography 1 [place] [address] Elva Olivares, DO 2 [facility] [address] [place] [address] Discharge Disposition: Discharged to home or Selfcare 02/10/2025 4:00 PM CDT [facility] 1 [place] [address] Elva Olivares, DO 2 [facility] [address] [place] [address] Discharge Disposition: Discharged to home or Selfcare 02/17/2025 1:40 PM CDT Hospital [facility] Periop 1 [place] [address] Cabrera Yadav MD #[address] [address] 02/17/2025 1:40 PM CDT - 02/17/2025 3:40 PM CDT [facility] Per[facility] 1 [place] [address] Cabrera Yadav MD #[address] [address] CYSTOSCOPY AND LITHOLAPAXY, PATIENT WILL NEED A PAUL LIFT 03/02/2025 8:40 AM CDT Office Visit [facility] Medical Group - Family Medicine [facility] #2 [place] [address] Elva Olivares DO [address] [address] Scheduled Procedures Name Priority Associated Diagnoses Date/Ti me CYSTOSCOPY BLADDER STONE BLADDER STONES 02/17/2025 1:40 PM CDT documented as of this encounter Visit Diagnoses Diagnosis Muscle spasm Spasm of muscle documented in this encounter Additional Health Concerns Infection Onset Date Last Indicated Resolved Time 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 [address] [place] [address] PCP - General Family Medicine 07/01/24 Malissa Joe, RN [place] Nurse Prn Occupational Therapist 12/03/23 12/03/23 Malissa Joe, RN [place] Nurse Prn Occupational Therapist 12/05/23 12/05/23 [place], [facility] Vice President Of Finance Prn Occupational Therapist 11/03/24 Cabrera Yadav MD #2 [facility] [address] [place] [address] Consulting Physician Urology 11/07/24 documented as of this encounter
--- OUTSIDE RECORDS SUMMARY | 2025-01-16 18:58 | XMS_ITS | Encounter Summary ---
Author Organization [facility] Address [address] [place] [address] Phone Care Team Providers Care Farm Tractor Mechanic Name Role Phone Victoriano Reid MD Primary Care Provider [phone] Malissa Joe RN Unavailable Unavailable Malissa Joe RN Unavailable Unavailable Elva Olivares DO Primary Care Provider [phone] [place] PAPER GOODS MACHINE OPERATOR Unavailable Cabrera Smallwood MD Unavailable [phone] Reason for Visit * Reason Comments Medication Refill Encounter Details Date Type Department Care Team (Late st Contact Info) Description 07/24/2023 Refill [facility] #2 [place] [address] Victoriano Reid MD #1 [place] [address] Medication Refill Social History Tobacco Use Types [...] Office Visit Victoriano Reid MD [facility] 09/19/22 Office Visit [facility] Showing recent visits within past 365 days and meeting all other requirements Future Appointments Date Type Provider Dept 10/01/23 Appointment Victoriano Reid MD [facility] Showing future appointments within next 90 days and meeting all other requirements documented in this encounter Plan of Treatment Upcoming Encounters Date Type Department Care Team (Latest Contact Info) Description 01/21/2025 10:30 AM CDT Clinical Support [facility] UROLOGY #2 [place] [address] NurseKen Urology 02/02/2025 11:00 AM CDT Appointment [facility] 1 [place] [address] Cabrera Yadav MD #[address] [address] Discharge Disposition: Discharged to home or Selfcare 02/10/2025 3:00 PM CDT Appointment [facility] Mammography 1 [facility] [place] [address] Elva Olivares, DO 2 [facility] [address] [place] [address] Discharge Disposition: Discharged to home or Selfcare 02/10/2025 4:00 PM CDT Appointment [facility] Ultrasound 1 [place] [address] Elva Olivares, DO [address] [address] Discharge Disposition: Discharged to home or Selfcare 02/17/2025 1:40 PM CDT [facility] 1 [place] [address] Cabrera Yadav MD #[address] [address] 02/17/2025 1:40 PM CDT - 02/17/2025 3:40 PM CDT Surgery [facility] Periop 1 [facility] [place] [address] Cabrera Yadav MD #[address] [address] CYSTOSCOPY AND LITHOLAPAXY, PATIENT WILL NEED A PAUL LIFT 03/02/2025 8:40 AM CDT Office Visit [facility] Medical Group - Family [facility] #2 [place] [address] Elva Olivares, DO 2 [facility] [address] [place] [address] Scheduled Procedures Name Priority Associated Diagnoses Date/Ti vt CYSTOSCOPY BLADDER STONE BLADDER STONES 02/17/2025 1:40 PM CDT documented as of this encounter Visit Diagnoses Diagnosis Muscle spasm Spasm of muscle documented in this encounter Additional Health Concerns Assessment Noted Time PHQ-9 Depression Total Score: 0 08/15/20 10:00 AM CDT documented as of this encounter Care Teams Farm Tractor Mechanic Relationship Specialty Start Date End Date Victoriano Reid MD PCP - General Family Medicine 06/19/19 06/29/24 Elva Olivares DO 2 [facility] [address] [place] [address] PCP - General Family Medicine 07/01/24 Malissa Joe, RN [place] Nurse Lumber Carrier Operator 12/03/23 12/03/23 Malissa Joe, RN [place] Nurse Lumber Carrier Operator 12/05/23 12/05/23 [place], PAPER GOODS MACHINE OPERATOR [place] Installers Mechanical Lumber Carrier Operator 11/03/24 Cabrera Yadav MD [address] [address] Consulting Physician Urology 11/07/24 documented as of this encounter
--- OUTSIDE RECORDS SUMMARY | 2025-01-16 18:58 | XMS_ITS | Encounter Summary ---
Author Organization [facility] Address [address] [facility] [place] [address] Phone Care Team Providers Care Clinical Rehabilitation Specialist Name Role Phone Victoriano Reid MD Primary Care Provider [phone] Elva Olivares DO Primary Care Provider [phone] [place] LIGHT TECHNICIAN Unavailable Unavai Cabrera Dodge MD Unavailable [phone] Encounter Details Date Type Department Care Team (Late st Contact Info) Description 12/20/2023 Lab Requisition [facility] Laboratory Services 1 [place] [address] Victoriano Reid MD #1 [place] [address] Type 2 diabetes mellitus with other specified complication (HCC) Social History Tobacco Use Types Packs/Day Years Used Date Smoking Tobacco: Every Day Cigarettes Smokeless Tobacco: Never Alcohol Use Standard Drinks/Week Comments Not Currently 0 (1 standard drink = 0.6 oz pur e alcohol) [facility] Utilities Answer Date Recorded In the past [...] often do you attend chur ch or pentecostalism services? Never 12/20/2023 Do you belong to any clubs o r organizations such as voodoo groups, unions, fraternal or athletic groups, or [...] place to sleep or slept in a chcf (including now)? No 12/20/2023 Education Answer Date [...] of Assessment Author 0 12/20/2023 11:52 AM YOUTH ADVOCATE Clear Vasculart, System Background * Within the last year, have you been humiliated or emotionally abused in other ways by your partner or ex-partner? Answer Date of Assessment Author No 12/20/2023 11:52 AM YOUTH ADVOCATE ShopSueyhart, System Background * Within the last year, have you been afraid of your partner or ex-partner? Answer Date of Assessment Author No 12/20/2023 11:52 AM YOUTH ADVOCATE ShopSueyhart, System Background * Within the last year, have you been raped or forced to have any kind of sexual activity by your partner or ex-partner? Answer Date of Assessment Author No 12/20/2023 11:52 AM YOUTH ADVOCATE Mychart, System Background * Within the last year, have you been kicked, hit, slapped, or otherwise physically hurt by your partner or ex-partner? Answer Date of Assessment Author No 12/20/2023 11:52 AM YOUTH ADVOCATE Mychart, System Background * Q1: How often do you have a drink containing alcohol? Answer Date of Assessment Author Never 12/20/2023 11:52 AM YOUTH ADVOCATE Aventura, System Background * Q2: How many drinks containing alcohol do you have on a typical day when you are drinking? Answer Date of Assessment Author Patient does not drink 12/20/2023 11:52 AM YOUTH ADVOCATE Videojughart, System Background * Q3: How often do you have six or more drinks on one occasion? Answer Date of Assessment Author Never 12/20/2023 11:52 AM YOUTH ADVOCATE Clear Vasculart, System Background documented as of this encounter Plan of Treatment Upcoming Encounters Date Type Department Care Team (Latest Contact Info) Description 01/21/2025 10:30 AM CDT Clinical Support [facility] UR[facility]Y #2 [place] [address] NurseKen Urology 02/02/2025 11:00 AM CDT [facility] 1 [facility] [place] [address] Cabrera Yadav MD #[address] [facility] [address] [place] [address] Discharge Disposition: Discharged to home or Selfcare 02/10/2025 3:00 PM CDT [facility] Mamm[facility] 1 [facility] [place] [address] Elva Olivares, DO 2 [facility] [address] [place] [address] Discharge Disposition: Discharged to home or Selfcare 02/10/2025 4:00 PM CDT [facility]ment [facility] Ul[facility]ound 1 [facility] [place] [address] Elva Olivares, DO 2 [facility] MARY. [address] [place] [address] Discharge Disposition: Discharged to home or Selfcare 02/17/2025 1:40 PM CDT Hospital [facility] Periop 1 [place] [address] Cabrera Yadav MD #[address] [address] 02/17/2025 1:40 PM CDT - 02/17/2025 3:40 PM CDT Surgery [facility] Periop 1 [place] [address] Cabrera Yadav MD #[address] [address] CYSTOSCOPY AND LITHOLAPAXY, PATIENT WILL NEED A PAUL LIFT 03/02/2025 8:40 AM CDT Office Visit [facility] Medical Group - [facility]2 [place] [address] Elva Olivares, DO [address] [address] Scheduled Procedures Name Priority Associated Diagnoses Date/Ti me CYSTOSCOPY BLADDER STONE BLADDER STONES 02/17/2025 1:40 PM CDT documented as of this encounter Procedures Procedure Name Priority Date/Time Associated Diagnosis Comments HEMOGLOBIN A1C W/ ESTIMATED GLUCOSE Routine 12/20/2023 12:30 PM YOUTH ADVOCATE Type 2 diabetes mellitus with other specified complication (HCC) CBC WITH AUTO DIFFERENTIAL Routine 12/20/2023 12:30 PM YOUTH ADVOCATE Type 2 diabetes mellitus with other specified complication (HCC) CMP (COMPREHENSIVE METABOLIC PANEL) Routine 12/20/2023 12:30 PM YOUTH ADVOCATE Type 2 diabetes mellitus with other specified complication (HCC) COMPLETE BLOOD COUNT (CBC) WITH DIFF Routine 12/20/2023 12:30 PM YOUTH ADVOCATE Type 2 diabetes mellitus with other specified complication (HCC) documented in this encounter Results * (ABNORMAL) CBC WITH AUTO DIFFERENTIAL (12/20/2023 12:30 PM [facility]) WBC 9.25 4.00 - 12.00 10(3)/mcL 12/20/2023 2:29 PM [facility] RBC 4.47 3.80 - 5.30 10(6)/mcL 12/20/2023 2:29 PM [facility] HEMOGLOBIN (HGB) 14.7 12.0 - 15.8 g/dL 12/20/2023 2:29 PM [facility] HEMATOCRIT (HCT) 44.7 36.0 - 47.0 % 12/20/2023 2:29 PM [facility] MCV 100.0(H) 82.0 - 96.0 fL 12/20/2023 2:29 PM [facility] MCH 32.9 26.0 - 34.0 pg 12/20/2023 2:29 PM [facility] MCHC 32.9 31.0 - 36.0 g/dL 12/20/2023 2:29 PM [facility] PLATELET COUNT 161 140 - 440 10(3)/mcL 12/20/2023 2:29 PM [facility] RDW 14.3 11.8 - 15.5 % 12/20/2023 2:29 PM [facility] MPV 11.8 9.7 - 12.4 fL 12/20/2023 2:29 PM [facility] NEUTROPHILS 51.9 47.0 - 73.0 % 12/20/2023 2:29 PM [facility] LYMPHOCYTES 37.2 18.0 - 42.0 % 12/20/2023 2:29 PM [facility] MONOCYTES 6.5 4.0 - 12.0 % 12/20/2023 2:29 PM [facility] EOSINOPHILS 3.5 0.0 - 5.0 % 12/20/2023 2:29 PM YOUTH ADVOCATE [facility] BASOPHILS 0.9 0.0 - 1.0 % 12/20/2023 2:29 PM YOUTH ADVOCATE [facility] ABSOLUTE NEUTROPHILS 4.81 1.60 - 7.70 10(3)/[facility] 12/20/2023 2:29 PM YOUTH ADVOCATE [facility] ABSOLUTE LYMPHOCYTES 3.44(H) 1.30 - 3.20 10(3)/[facility] 12/20/2023 2:29 PM YOUTH ADVOCATE [facility] ABSOLUTE MONOCYTES 0.60 0.20 - 1.00 10(3)/[facility] 12/20/2023 2:29 PM YOUTH ADVOCATE [facility] ABSOLUTE EOSINOPHIL 0.32 0.00 - 0.40 10(3)/[facility] 12/20/2023 2:29 PM YOUTH ADVOCATE [facility] ABSOLUTE BASOPHILS 0.08 0.00 - 0.10 10(3)/[facility] 12/20/2023 2:29 PM YOUTH ADVOCATE [facility] NRBC PER 100 WBC 0 12/20/19 2:29 PM YOUTH ADVOCATE [facility] Blood No Phlebotomy Charged / Unknown 12/20/2023 12:30 PM YOUTH ADVOCATE 12/20/2023 2:26 PM YOUTH ADVOCATE us Victoriano Reid MD HEMATOLOGY ORDERABLES Final Resu lt [facility] #1 [place] [address] * HEMOGLOBIN A1C W/ ESTIMATED GLUCOSE (12/20/2023 12:30 PM YOUTH ADVOCATE) HGB-A1C 5.8 4.0 - 6.0 % 12/20/2023 2:51 PM YOUTH ADVOCATE [facility] Est Average Glucose 119.8 mg/dL 12/20/2023 2:51 PM YOUTH ADVOCATE [facility] Blood No Phlebotomy Charged / Unknown 12/20/2023 12:30 PM YOUTH ADVOCATE 12/20/2023 2:26 PM YOUTH ADVOCATE Narrative [facility] - 12/20/2023 2:51 PM YOUTH ADVOCATE HEMOGLOBIN A1C: DIABETIC PATIENTS: WELL-CONTROLLED: 6.2 - 7.0 INTERMEDIATE WELL-CONTROLLED: 7.0 - 9.0 POORLY-CONTROLLED: >9.0 us Victoriano Reid MD CHEMISTRY ORDERABLES Final Resul t [facility] #1 [place] [address] * (ABNORMAL) CMP (COMPREHENSIVE METABOLIC PANEL) (12/20/2023 12:30 PM YOUTH ADVOCATE) SODIUM 144 136 - 145 mmol/L 12/20/2023 2:47 PM YOUTH ADVOCATE [facility] POTASSIUM 4.2 3.5 - 5.1 mmol/L 12/20/2023 2:47 PM [facility] CHLORIDE 109(H) 98 - 107 mmol/L 12/20/2023 2:47 PM [facility] CO2, VENOUS 27 22 - 30 mmol/L 12/20/2023 2:47 PM [facility] ANION GAP 12.2 <18.0 mmol/L 12/20/2023 2:47 PM [facility] GLUCOSE 136(H) 70 - 99 mg/dL 12/20/2023 2:47 PM [facility] BUN 14 10 - 20 mg/dL 12/20/2023 2:47 PM [facility] CREATININE, BLOOD 0.84 0.60 - 1.00 mg/dL 12/20/2023 2:47 PM [facility] BUN/CREATININE RATIO 17 12 - 20 ratio 12/20/2023 2:47 PM [facility] TOTAL PROTEIN 6.9 6.3 - 8.2 g/dL 12/20/2023 2:47 PM [facility] ALBUMIN 3.8 3.5 - 5.0 g/dL 12/20/2023 2:47 PM [facility] A/G RATIO 1.2 1.0 - 2.2 12/20/2023 2:47 PM YOUTH ADVOCATE [facility] CALCIUM 9.8 8.7 - 10.5 mg/dL 12/20/2023 2:47 PM YOUTH ADVOCATE [facility] T BILI 0.3 0.2 - 1.2 mg/dL 12/20/2023 2:47 PM YOUTH ADVOCATE [facility] SGOT (AST) 12 5 - 34 U/L 12/20/2023 2:47 PM YOUTH ADVOCATE [facility] SGPT (ALT) 10 0 - 55 U/L 12/20/2023 2:47 PM YOUTH ADVOCATE [facility] ALKALINE PHOSPHATASE 69 40 - 150 U/L 12/20/2023 2:47 PM YOUTH ADVOCATE [facility] GFR, ESTIMATED >60 >=60 12/20/2023 2:47 PM YOUTH ADVOCATE [facility] Comment: Creatinine Clearance is the preferred criteria for selecting drug dose adjustments in renally impaired patients. The GFR is provided as additional pertinent clinical information. GFR is reported in mL/min/1.73 sq m. Calculation based on the Chronic Kidney Disease Epidemiology Collaboration (CKD- EPI) equation refit without adjustment for race. GFR, EST. >60 >=60 024 2:47 PM YOUTH ADVOCATE [facility] GFR, EST. NONAFRICAN >60 >=60 12/20/2023 2:47 PM [facility] Blood No Phlebotomy Charged / Unknown 12/20/2023 12:30 PM YOUTH ADVOCATE 12/20/2023 2:26 PM YOUTH ADVOCATE us Victoriano Reid MD CHEMISTRY ORDERABLES Final Resul t [facility] #1 [place] [address] documented in this encounter Visit Diagnoses Diagnosis Type 2 diabetes mellitus with other specified complication documented in this encounter Additional Health Concerns Assessment Noted Time PHQ-9 Depression Total Score: 0 08/15/20 21 10:00 AM CDT documented as of this encounter Care Teams Clinical Rehabilitation Specialist Relationship Specialty Start Date End Date Victoriano Reid MD PCP - General Family Medicine 06/19/19 06/29/24 Elva Olivares DO 2 [facility] [address] [place] [address] PCP - General Family Medicine 07/01/24 [place], [facility] Glazing Superintendent Manager Workers Compensation 11/03/24 Cabrera Yadav MD #2 [facility] [address] [place] [address] Consulting Physician Urology 11/07/24 documented as of this encounter
--- OUTSIDE RECORDS SUMMARY | 2025-01-16 18:58 | XMS_ITS | Encounter Summary ---
Author Organization [facility] Address [address] [place] [address] Phone Care Team Providers Care Computer System Specialist Name Role Phone Victoriano Reid MD Primary Care Provider [phone] Malissa Joe RN Unavailable Unavailable Malissa Joe RN Unavailable Unavailable Elva Olivares DO Primary Care Provider [phone] [place] TRADEMARK ATTORNEY Unavailable Unaabdirizaki Cabrera Dodge MD Unavailable [phone] Encounter Details Date Type Department Care Team (Late st Contact Info) Description 04/24/2023 Lab Requisition [facility] Laboratory Services 1 [place] [id number] Victoriano Reid MD #1 [place] [address] Personal history of urinary (tract) infections Social [...] Description 01/21/2025 10:30 AM CDT Clinical Support [facility] UR[facility]Y #2 [place] [address] Nurse, [place] [facility] 02/02/2025 11:00 AM CD[facility] [address] [place] [address] Cabrera Yadav MD #2 [facility] [address] [place] [address] Discharge Disposition: Discharged to home or Selfcare 02/10/2025 3:00 PM CDT [facility] 1 [place] [address] Elva Olivares, DO 2 [facility] [address] [place] [address] Discharge Disposition: Discharged to home or Selfcare 02/10/2025 4:00 PM CDT [facility] Ul[facility] 1 [place] [address] Elva Olivares, DO 2 [facility] [address] [place] [address] Discharge Disposition: Discharged to home or Selfcare 02/17/2025 1:40 PM CDT Hospital [facility] 1 [place] [address] Cabrera Yadav MD #2 [facility] [address] [place] [address] 02/17/2025 1:40 PM CDT - 02/17/2025 3:40 PM CDT [facility] 1 [facility] [place] [address] Cabrera Yadav MD #2 [facility] [address] [place] [address] CYSTOSCOPY AND LITHOLAPAXY, PATIENT WILL NEED A PAUL LIFT 03/02/2025 8:40 AM CDT Office Visit [facility] Medical Group - Family Medicine - [place] #2 [place] [address] Elva Olivares, DO 2 [facility] [address] [place] [address] Scheduled Procedures Name Priority Associated Diagnoses Date/Ti [...] RESULTS CITROBACTER AMALONATICUS 04/26/2023 8:20 PM CDT [facility] CULTURE RESULTS ENTEROCOCCUS FAECALIS 04/26/2023 8:20 PM CDT [facility] Urine Non-Phlebotomy Collection / Unknown 04/24/2023 12:54 PM CDT 04/24/2023 2:33 PM CDT Narrative [facility] - 04/26/2023 8:20 PM CDT Susceptibility not [...] Organism Antibiotic Method Susceptibility Citrobacter amalonaticus Cefepime SF VITEK II <=1 mcg/ml: Susceptible Citrobacter amalonaticus [...] MICROBIOLOGY - GENERAL ORDERABLE S Final Result [facility] [address] [place] [address], * (ABNORMAL) URINALYSIS REFLEX IF INDICATED BY ABNORMAL RESULTS (04/24/2023 12:54 PM CDT) SPECIFIC GRAVITY 1.005 1.003 - 1.030 04/24/2023 3:02 PM CDT [facility] URINE PH 7.0 5.0 - 9.0 04/24/2023 3:02 PM CDT [facility] WBC ESTERASE 500 /uL(A) Negative 04/24/2023 3:02 PM CDT [facility] NITRITE Positive(A) Negative 04/24/2023 3:02 PM CDT [facility] PROTEIN, RANDOM URINE 30 mg/dL(A) Negative 04/24/2023 3:02 PM CDT [facility] URINE GLUCOSE, QUAL Negative Negative 04/24/2023 3:02 PM CDT [facility] URINE KETONES Negative Negative 04/24/2023 3:02 PM CDT [facility] UROBILINOGEN Normal Normal mg/dL 04/24/2023 3:02 PM CDT [facility] URINE BLOOD 250 /uL(A) Negative josefa/ul 04/24/2023 3:02 PM CDT [facility] URINALYSIS COLOR Yellow 04/24/20 3:02 PM CDT [facility] URINALYSIS CLARITY Very Cloudy 04/24/2023 3:02 PM CDT [facility] WBC (Urine) 51-150(A) Negative, 0-5 /hpf 04/24/2023 3:02 PM CDT [facility] URINE RBC'S 51-150(A) Negative, 0-2 /hpf 04/24/2023 3:02 PM CDT [facility] EPITHELIAL CELLS Moderate amount /lpf 04/24/2023 3:02 PM CDT [facility] BACTERIA, URINE Many(A) Negative /hpf 04/24/2023 3:02 PM CDT [facility] CRYSTALS Amorphous urates 04/24/2023 3:02 PM CDT [facility] Urine Non-Phlebotomy Collection / Unknown 04/24/2023 12:54 PM CDT 04/24/2023 2:33 PM CDT us Victoriano Reid MD URINE ORDERABLES Final Result [facility] #1 [facility] [place] [address] documented in this encounter Visit Diagnoses Diagnosis Personal history of urinary (tract) infections documented in this encounter Additional Health Concerns Assessment Noted Time PHQ-9 Depression Total Score: 0 08/15/20 21 10:00 AM CDT documented as of this encounter Care Teams Computer System Specialist Relationship Specialty Start Date End Date Victoriano Reid MD PCP - General Family Medicine 06/19/19 06/29/24 Elva Olivares DO 2 [facility] [address] [place] [address] PCP - General Family Medicine 07/01/24 Malissa Joe, RN [place] Nurse Kiln Stacker 12/03/23 12/03/23 Malissa Joe RN [place] Nurse Kiln Stacker 12/05/23 12/05/23 [place] LSW [place] Lime Kiln Worker Helper Kiln Stacker 11/03/24 Cabrera Yadav MD #2 [facility] [address] [place] [address] Consulting Physician Urology 11/07/24 documented as of this encounter
--- OUTSIDE RECORDS SUMMARY | 2025-01-16 18:59 | XMS_ITS | Encounter Summary ---
Author Organization [facility] Address [address] [place] [address] Phone Care Team Providers Care Cattle Killer Name Role Phone Victoriano Reid MD Primary Care Provider [phone] Malissa Joe RN Unavailable Unavailable Malissa Joe RN Unavailable Unavailable Elva Olivares DO Primary Care Provider [phone] [place] MANAGER PAID Unavailable Unaabdirizaki Cabrera Dodge MD Unavailable [phone] Encounter Details Date Type Department Care Team (Late st Contact Info) Description 02/07/2021 Lab Requisition [facility] Laboratory Services 1 [place] [id number] Victoriano Reid MD #1 [place] [address] Neuromuscular dysfunction of bladder, unspecified Social History [...] Description 01/21/2025 10:30 AM CDT Clinical Support [facility] UROLOGY #2 [place] [address] NurseKen Urology 02/02/2025 11:00 AM CDT [facility]ointment [facility] [address] [facility] [place] [address] Cabrera Yadav MD #2 [facility] [address] [place] [address] Discharge Disposition: Discharged to home or Selfcare 02/10/2025 3:00 PM CDT [facility]ointment [facility] Mammography 1 [place] [address] Elva Olivares, DO 2 [facility] [address] [place] [address] Discharge Disposition: Discharged to home or Selfcare 02/10/2025 4:00 PM CDT Appointment [facility] Ultrasound 1 [facility] [place] [address] Elva Olivares, DO 2 [facility] [address] [place] [address] Discharge Disposition: Discharged to home or Selfcare 02/17/2025 1:40 PM CDT Hospital Encounter [facility] Periop 1 [facility] [place] [address] Cabrera Yadav MD #2 [facility] [address] [place] [address] 02/17/2025 1:40 PM CDT - 02/17/2025 3:40 PM CDT Surgery [facility] Periop 1 [facility] [address] Cabrera Yadav MD #2 [facility] [address] [place] [address] CYSTOSCOPY AND LITHOLAPAXY, PATIENT WILL NEED A PAUL LIFT 03/02/2025 8:40 AM CDT Office Visit [facility] Medical Group - Family Medicine - [place] #2 [place] [phone] Elva Olivares, DO 2 [facility] [address] [place] [address] Scheduled Procedures Name Priority Associated Diagnoses Date/Ti [...] RESULTS ESCHERICHIA COLI 02/10/2021 9:24 AM CDT [facility] Comment:PRESUMPTIVE IDENTIFI CATION CULTURE RESULTS ALSO MIXED GROWTH OF DISTAL URETHRA CONTAMINANTS. 02/10/2021 9:24 AM CDT [facility] Urine Non-Phlebotomy Collection / Unknown 02/07/2021 3:15 [...] S Final Result [facility] [address] [place] [address], * (ABNORMAL) URINALYSIS REFLEX IF INDICATED BY ABNORMAL RESULTS (02/07/2021 3:15 PM CDT) SPECIFIC GRAVITY 1.010 1.003 - 1.030 02/07/2021 5:23 PM CDT [facility] URINE PH 7.0 5.0 - 9.0 02/07/2021 5:23 PM CDT [facility] WBC ESTERASE 500 /uL(A) Negative 02/07/2021 5:23 PM CDT [facility] NITRITE Positive(A) Negative 02/07/2021 5:23 PM CDT [facility] PROTEIN, RANDOM URINE 100 mg/dL(A) Negative 02/07/2021 5:23 PM CDT [facility] URINE GLUCOSE, QUAL Negative Negative 02/07/2021 5:23 PM CDT [facility] URINE KETONES Negative Negative 02/07/2021 5:23 PM CDT [facility] UROBILINOGEN Normal Normal mg/dL 02/07/2021 5:23 PM CDT [facility] URINE BILIRUBIN Negative Negative 5:23 PM CDT [facility] URINE BLOOD 250 /uL(A) Negative josefa/ul 02/07/2021 5:23 PM CDT [facility] URINALYSIS COLOR Yellow 02/08/20 5:23 PM CDT [facility] URINALYSIS CLARITY Very Cloudy 02/07/2021 5:23 PM CDT [facility] WBC (Urine) 51-150(A) Negative, 0-5 /hpf 02/07/2021 5:23 PM CDT [facility] URINE RBC'S 21-50(A) Negative, 0-2 /hpf 02/07/2021 5:23 PM CDT [facility] EPITHELIAL CELLS Moderate amount /lpf 02/07/2021 5:23 PM CDT [facility] BACTERIA, URINE Packed(A) Negative /hpf 02/07/2021 5:23 PM CDT [facility] Urine Non-Phlebotomy Collection / Unknown 02/07/2021 3:15 PM CDT 02/07/2021 5:09 PM CDT us Victoriano Reid MD URINE ORDERABLES Final Result [facility] #1 [place] [address] documented in this encounter Visit Diagnoses Diagnosis Neuromuscular dysfunction of bladder, unspecified documented in this encounter Additional Health Concerns Infection Onset Date Last Indicated Resolved Time 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 [address] [place] [address] PCP - General Family Medicine 07/01/24 Malissa Joe, RN [place] Nurse Ordering Machine Operator 12/03/23 12/03/23 Malissa Joe, RN [place] Nurse Ordering Machine Operator 12/05/23 12/05/23 [place], MANAGER PAID [place] [employer] Professor Ordering Machine Operator 11/03/24 Cabrera Yadav MD #2 [facility] [address] [place] [address] Consulting Physician Urology 11/07/24 documented as of this encounter
--- OUTSIDE RECORDS SUMMARY | 2025-01-16 18:59 | XMS_ITS | Encounter Summary ---
Author Organization [facility] Address [address] [place] [address] Phone Care Team Providers Care Kiln Head House Operator Name Role Phone Victoriano Reid MD Primary Care Provider [phone] Malissa Joe RN Unavailable Unavailable Malissa Joe RN Unavailable Unavailable Elva Olivares DO Primary Care Provider [phone] [place] BANKING SPECIALIST Unavailable Unaabdirizaki Cabrera Dodge MD Unavailable [phone] Encounter Details Date Type Department Care Team (Late st Contact Info) Description 10/31/2021 Lab Requisition [facility] 1 [place] [id number] Victoriano Reid MD #1 [place] [address] Personal history of urinary (tract) infections Social [...] Description 01/21/2025 10:30 AM CDT Clinical Support [facility] UROLOGY #2 [place] [address] NurseKen Urology 02/02/2025 11:00 AM CDT Appointment [facility] [address] [place] [address] Cabrera Yadav MD #2 [facility] [address] [place] [address] Discharge Disposition: Discharged to home or Selfcare 02/10/2025 3:00 PM CDT [facility] 1 [facility] [place] [address] Elva Olivares, DO 2 [facility] [address] [place] [address] Discharge Disposition: Discharged to home or Selfcare 02/10/2025 4:00 PM CDT [facility] Ultrasound [address] [place] [address] Elva Olivares, DO 2 [facility] [address] [place] [address] Discharge Disposition: Discharged to home or Selfcare 02/17/2025 1:40 PM CDT Hospital [facility] Periop [address] [place] [address] Cabrera Yadav MD #2 [facility] [address] [place] [address] 02/17/2025 1:40 PM CDT - 02/17/2025 3:40 PM CDT Surgery [facility] 1 [facility] [place] [place] [address] Cabrera Yadav MD #2 [facility] [address] [place] [address] CYSTOSCOPY AND LITHOLAPAXY, PATIENT WILL NEED A PAUL LIFT 03/02/2025 8:40 AM CDT Office Visit [facility] Medical Group - Family Medicine [facility] #2 [place] [address] Elva Olivares, DO 2 [facility]. [address] [place] [address] Scheduled Procedures Name Priority Associated Diagnoses Date/Ti me CYSTOSCOPY BLADDER STONE BLADDER STONES 02/17/2025 1:40 PM CDT documented as of this encounter Procedures Procedure Name Priority Date/Time Associated Diagnosis Comments URINALYSIS REFLEX IF INDICATED BY ABNORMAL RESULTS Routine 10/31/2020 12:15 PM RFID MANAGER Personal history of urinary (tract) infections CULTURE, URINE Routine 10/31/2020 12:15 PM RFID MANAGER Personal history of urinary (tract) infections documented in this encounter Results * CULTURE, URINE (10/31/2020 12:15 PM RFID MANAGER) CULTURE RESULTS MIXED GROWTH OF 3 OR MORE ORGANISMS, PROBABLE COLLECTION CONTAMINATION, SUGGEST REPEAT URINE CULTURE. 11/01/2021 4:23 PM RFID MANAGER [facility] Urine Non-Phlebotomy Collection / Unknown 10/31/2020 12:15 PM RFID MANAGER 10/31/2021 1:47 PM RFID MANAGER us Victoriano Reid MD MICROBIOLOGY - GENERAL ORDERABLE S Final Result [facility] [address] [place] [address], * (ABNORMAL) URINALYSIS REFLEX IF INDICATED BY ABNORMAL RESULTS (10/31/2020 12:15 PM RFID MANAGER) SPECIFIC GRAVITY 1.010 1.003 - 1.030 10/31/2021 2:26 PM [facility] URINE PH 8.0 5.0 - 9.0 10/31/2021 2:26 PM [facility] WBC ESTERASE 500 /uL(A) Negative 10/31/2021 2:26 PM [facility] NITRITE Negative Negative 10/31/2021 2:26 PM [facility] PROTEIN, RANDOM URINE 100 mg/dL(A) Negative 10/31/2021 2:26 PM [facility] URINE GLUCOSE, QUAL Negative Negative 10/31/2021 2:26 PM [facility] URINE KETONES Negative Negative 10/31/2021 2:26 PM [facility] UROBILINOGEN Normal Normal mg/dL 10/31/2021 2:26 PM [facility] URINE BLOOD 250 /uL(A) Negative josefa/ul 10/31/2021 2:26 PM [facility] URINALYSIS COLOR Dark Yellow 10/31/2021 2:26 PM [facility] URINALYSIS CLARITY Very Cloudy 10/31/2021 2:26 PM [facility] WBC (Urine) 21-50(A) Negative, 0-5 /hpf 10/31/2021 2:26 PM [facility] URINE RBC'S 21-50(A) Negative, 0-2 /hpf 10/31/2021 2:26 PM [facility] EPITHELIAL CELLS Occasional /lpf 10/31/2021 2:26 PM [facility] BACTERIA, URINE Packed(A) Negative /hpf 10/31/2021 2:26 PM [facility] Urine Non-Phlebotomy Collection / Unknown 10/31/2020 12:15 PM RFID MANAGER 10/31/2021 1:47 PM RFID MANAGER Victoriano Reid MD URINE ORDERABLES Final Result [facility] #[address] [place] [address] documented in this encounter Visit Diagnoses Diagnosis Personal history of urinary (tract) infections documented in this encounter Additional Health Concerns Assessment Noted Time PHQ-9 Depression Total Score: 0 10/24/19 11:16 AM RFID MANAGER documented as of this encounter Care Teams Kiln Head House Operator Relationship Specialty Start Date End Date Victoriano Reid MD PCP - General Family Medicine 06/19/19 06/29/24 Elva Olivares DO 2 [facility] [address] [place] [address] PCP - General Family Medicine 07/01/24 Malissa Joe, RN [place] Nurse Metal Roaster 12/03/23 12/03/23 Malissa Joe, RN [place] Nurse Metal Roaster 12/05/23 12/05/23 [place] BANKING SPECIALIST [place] Ribbon Weaver Metal Roaster 11/03/24 Cabrera Yadav MD #2 [facility] [address] [place] [address] Consulting Physician Urology 11/07/24 documented as of this encounter
--- OUTSIDE RECORDS SUMMARY | 2025-01-16 18:59 | XMS_ITS | Encounter Summary ---
Author Organization [facility] Address [address] [place] [address] Phone Care Team Providers Care Surplus Property Disposal Agent Name Role Phone Victoriano Reid MD Primary Care Provider [phone] Malissa Joe RN Unavailable Unavailable Malissa Joe RN Unavailable Unavailable Elva Olivares DO Primary Care Provider [phone] [place] REGISTERED NURSE FETAL Unavailable Cabrera Smallwood MD Unavailable [phone] Reason for Visit * Reason Comments Medication Refill Encounter Details Date Type Department Care Team (Late st Contact Info) Description 06/08/2022 Refill [facility] Medical Group - Family Medicine [facility] #2 [place] [address] Victoriano Reid MD #1 [place] [address] Medication Refill Social History Tobacco Use Types [...] [place] 08/15/21 Office Visit Victoriano Reid MD [facility] Ken Showing recent [...] Dept 01/05/22 Office Visit Nia Abbott PAC [facility] Ken 08/15/21 Office Visit Victoriano Reid MD [facility] Showing recent visits within past 365 days and meeting all other requirements Future Appointments No visits were found meeting these conditions. Showing future appointments within next 90 days and meeting all other requirements documented in this encounter Plan of Treatment Upcoming Encounters Date Type Department Care Team (Latest Contact Info) Description 01/21/2025 10:30 AM CDT Clinical Support [facility] UROLOGY #2 [facility] [place] [address] Nurse, Ken Urology 02/02/2025 11:00 AM CDT Appointment [facility] CT [address] [place] [address] Cabrera Yadav MD #2 [facility] [address] [place] [address] Discharge Disposition: Discharged to home or Selfcare 02/10/2025 3:00 PM CDT Appointment [facility] Mammography [address] [place] [address] Elva Olivares, DO 2 [facility] [address] [place] [address] Discharge Disposition: Discharged to home or Selfcare 02/10/2025 4:00 PM CDT Appointment [facility] Ultrasound 1 [facility] [place] [address] Elva Olivares, DO 2 [facility] [address] [place] [address] Discharge Disposition: Discharged to home or Selfcare 02/17/2025 1:40 PM CDT [facility] 1 [facility] [place] [address] Cabrera Yadav MD #[address] [address] 02/17/2025 1:40 PM CDT - 02/17/2025 3:40 PM CDT [facility] 1 [facility] [place] [address] Cabrera Yadav MD #[address] [address] CYSTOSCOPY AND LITHOLAPAXY, PATIENT WILL NEED A PAUL LIFT 03/02/2025 8:40 AM CDT Office Visit [facility] Medical Group - Family Medicine [facility] #2 [place] [address] Elva Olivares DO 2 [facility] [address] [place] [address] Scheduled Procedures Name Priority Associated Diagnoses Date/Ti me CYSTOSCOPY BLADDER STONE BLADDER STONES 02/17/2025 1:40 PM CDT documented as of this encounter Visit Diagnoses Diagnosis 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) documented in this encounter Additional Health Concerns Assessment Noted Time PHQ-9 Depression Total Score: 0 08/15/20 21 10:00 AM CDT documented as of this encounter Care Teams Surplus Property Disposal Agent Relationship Specialty Start Date End Date Victoriano Reid MD PCP - General Family Medicine 06/19/19 06/29/24 Elva Olivares DO 2 [facility] [address] [place] [address] PCP - General Family Medicine 07/01/24 Malissa Joe, RN [place] Nurse Hop Sorter 12/03/23 12/03/23 Malissa Joe, RN [place] Nurse Hop Sorter 12/05/23 12/05/23 [place] REGISTERED NURSE FETAL [place] Medical Billing And Coding Specialist Hop Sorter 11/03/24 Cabrera Yadav MD #2 [facility] [address] [place] [address] Consulting Physician Urology 11/07/24 documented as of this encounter
--- OUTSIDE RECORDS SUMMARY | 2025-01-16 18:59 | XMS_ITS | Encounter Summary ---
Author Organization [facility] Address [address] [place] [address] Phone Care Team Providers Care Clinical Psychology Professor Name Role Phone Victoriano Reid MD Primary Care Provider [phone] Malissa Joe RN Unavailable Unavailable Malissa Joe RN Unavailable Unavailable Elva Olivares DO Primary Care Provider [phone] [place] PHARMACY TECH Unavailable Cabrera Smallwood MD Unavailable [phone] Reason for Visit * Reason Comments Medication Refill Encounter Details Date Type Department Care Team (Late st Contact Info) Description 09/30/[address] [facility] Medical Group - Family Medicine [facility] #2 [place] [address] Victoriano Reid MD #1 [place] [address] Medication Refill Social History Tobacco Use Types [...] discontinued on 08/06/2020 by Victoriano Reid MD RVISOR METER SHOP documented in this encounter Plan of Treatment Upcoming Encounters Date Type Department Care Team (Latest Contact Info) Description 01/21/2025 10:30 AM CDT Clinical Support [facility] UROLOGY #2 [place] [address] Nurse, Udell Urology 02/02/2025 11:00 AM CDT [facility] [address] [place] [address] Cabrera Yadav MD #2 [facility] [address] [place] [address] Discharge Disposition: Discharged to home or Selfcare 02/10/2025 3:00 PM CDT [facility] M[facility] [address] [place] [address] Elva Olivares, DO 2 [facility] [address] [place] [address] Discharge Disposition: Discharged to home or Selfcare 02/10/2025 4:00 PM CDT [facility] 1 [place] [address] Elva Olivares, DO 2 [facility] [address] [place] [address] Discharge Disposition: Discharged to home or Selfcare 02/17/2025 1:40 PM CDT Hospital [facility] 1 [facility] [place] [address] Cabrera Yadav MD #2 [facility] [address] [place] [address] 02/17/2025 1:40 PM CDT - 02/17/2025 3:40 PM CDT [facility] 1 [facility] [place] [address] Cabrera Yadav MD #[address] [address] CYSTOSCOPY AND LITHOLAPAXY, PATIENT WILL NEED A PAUL LIFT 03/02/2025 8:40 AM CDT Office Visit [facility] - Family Medicine [facility] #2 [place] [address] Elva Olivares DO 2 [facility] [address] [place] [address] Scheduled Procedures Name Priority Associated Diagnoses Date/Ti [...] Score: 0 10/24/19 20 11:16 AM SUPERVISOR METER SHOP documented as of this encounter Care Teams Clinical Psychology Professor Relationship Specialty Start Date End Date Victoriano Reid MD PCP - General Family Medicine 06/19/19 06/29/24 Elva Olivares DO 2 [facility] [address] [place] [address] PCP - General Family Medicine 07/01/24 Malissa Joe, RN [place] Nurse Print Project Manager 12/03/23 12/03/23 Malissa Joe, RN [place] Nurse Print Project Manager 12/05/23 12/05/23 [place], [facility] Rn Delivery Print Project Manager 11/03/24 Cabrera Yadav MD #2 [facility] [address] [place] [address] Consulting Physician Urology 11/07/24 documented as of this encounter
--- OUTSIDE RECORDS SUMMARY | 2025-01-16 18:59 | XMS_ITS | Encounter Summary ---
Author Organization [facility] Address [address] [place] [address] Phone Care Team Providers Care Senior Quantity Surveyor Name Role Phone Victoriano Reid MD Primary Care Provider [phone] Malissa Joe RN Unavailable Unavailable Malissa Joe RN Unavailable Unavailable Elva Olivares DO Primary Care Provider [phone] [place] CROWN IRONER OPERATOR Unavailable Unaabdirizaki Cabrera Dodge MD Unavailable [phone] Encounter Details Date Type Department Care Team (Late st Contact Info) Description 02/12/[address] [facility] 1 [place] [address] Vishal Vee MD 8 [place] [address] Urinary tract infection, site not specified; Thrombocytopenia, [...] 10:30 AM CDT Clinical Support [facility] UROLOGY #2 [place] [address] Nurse, Ken Urology 02/02/2025 11:00 AM CDT [facility] 1 [facility] [place] [address] Cabrera Yadav MD #2 [facility] [address] [place] [address] Discharge Disposition: Discharged to home or Selfcare 02/10/2025 3:00 PM CDT [facility] Mamm[facility] 1 [place] [address] Elva Olivares, DO 2 [facility] [address] [place] [address] Discharge Disposition: Discharged to home or Selfcare 02/10/2025 4:00 PM CDT [facility] Ul[facility] 1 [place] [address] Elva Olivares, DO 2 [facility] [address] [place] [address] Discharge Disposition: Discharged to home or Selfcare 02/17/2025 1:40 PM CDT Hospital [facility] Per[facility] 1 [facility] [place] [address] Cabrera Yadav MD #2 [facility] [address] [place] [address] 02/17/2025 1:40 PM CDT - 02/17/2025 3:40 PM CDT Surgery [facility] Periop 1 [place] [address] Cabrera Yadav MD #2 [facility] [address] [place] [address] CYSTOSCOPY AND LITHOLAPAXY, PATIENT WILL NEED A PAUL LIFT 03/02/2025 8:40 AM CDT Office Visit [facility] Medical Group - Family Medicine - [place] #2 [place] [address] Elva Olivares, DO 2 [facility]. [address] [place] [address] Scheduled Procedures Name Priority Associated Diagnoses Date/Ti [...] - 12.00 10(3)/mcL 02/12/2021 12:[address] RBC 3.62(L) 3.80 - 5.30 10(6)/mcL 02/12/2021 12:08 PM CDT [facility] HEMOGLOBIN (HGB) 11.4(L) 12.0 - 15.8 g/dL 02/12/2021 12:08 PM CDT [facility] HEMATOCRIT (HCT) 34.6(L) 36.0 - 47.0 % 02/12/2021 12:08 PM CDT [facility] MCV 95.6 82.0 - 96.0 fL 02/12/2021 12:08 PM CDT [facility] MCH 31.5 26.0 - 34.0 pg 02/12/2021 12:08 PM CDT [facility] MCHC 32.9 31.0 - 36.0 g/dL 02/12/2021 12:08 PM CDT [facility] PLATELET COUNT 151 140 - 440 10(3)/mcL 02/12/2021 12:08 PM CDT [facility] Comment:No clot in tube, no clumps on smear RDW 14.7 11.8 - 15.5 % 02/12/2021 12:08 PM CDT [facility] MPV 12.2 9.7 - 12.4 fL 02/12/2021 12:08 PM CDT [facility] NEUTROPHILS 63.7 47.0 - 73.0 % 02/12/2021 12:08 PM CDT [facility] LYMPHOCYTES 24.1 18.0 - 42.0 % 02/12/2021 12:08 PM CDT [facility] MONOCYTES 9.2 4.0 - 12.0 % 02/12/2021 12:08 PM CDT [facility] EOSINOPHILS 2.5 0.0 - 5.0 % 02/12/2021 12:08 PM CDT [facility] BASOPHILS 0.5 0.0 - 1.0 % 02/12/2021 12:08 PM CDT [facility] ABSOLUTE NEUTROPHILS 5.00 1.60 - 7.70 10(3)/mcL 02/12/2021 12:08 PM CDT [facility] ABSOLUTE LYMPHOCYTES 1.89 1.30 - 3.20 10(3)/mcL 02/12/2021 12:[address] [facility] ABSOLUTE MONOCYTES 0.72 0.20 - 1.00 10(3)/mcL 02/12/2021 12:[address] [facility] ABSOLUTE EOSINOPHIL 0.20 0.00 - 0.40 10(3)/[facility] 02/12/2021 12:[address] [facility] ABSOLUTE BASOPHILS 0.04 0.00 - 0.10 10(3)/[facility] 02/12/2021 12:[address] [facility] NRBC PER 100 WBC 0 02/13/20 12:[address] [facility] [facility] RESULTS ARE CONSISTENT WITH PERIPHERAL SMEAR REVIEW Yes 02/12/2021 12:[address] [facility] 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 [address] [address] PCP - General Family Medicine 07/01/24 Malissa Joe, RN [place] Nurse Traffic Reporter 12/03/23 12/03/23 Malissa Joe, RN [place] Nurse Traffic Reporter 12/05/23 12/05/23 [place], [facility] Pocket Machine Operator Traffic Reporter 11/03/24 Cabrera Yadav MD #[address] [address] Consulting Physician Urology 11/07/24 documented as of this encounter
--- OUTSIDE RECORDS SUMMARY | 2025-01-16 18:59 | XMS_ITS | Encounter Summary ---
Author Organization [facility] Address [address] [place] [address] Phone Care Team Providers Care Heel Slicker Name Role Phone Victoriano Reid MD Primary Care Provider [phone] Malissa Joe RN Unavailable Unavailable Malissa Joe RN Unavailable Unavailable Elva Olivares DO Primary Care Provider [phone] [place] WATER RESOURCES ENGINEER Unavailable Unaabdirizaki Cabrera Dodge MD Unavailable [phone] Encounter Details Date Type Department Care Team (Late st Contact Info) Description 11/29/2020 Lab Requisition [facility] Laboratory Services 1 [place] [id number] Victoriano Reid MD #1 [place] [address] Personal history of urinary (tract) infections Social [...] Description 01/21/2025 10:30 AM CDT Clinical Support [facility] UROLOGY #[address] [place] [address] Nurse, Ken Urology 02/02/2025 11:00 AM CDT [facility] [address] [place] [address] Cabrera Yadav MD #2 [facility] [address] [place] [address] Discharge Disposition: Discharged to home or Selfcare 02/10/2025 3:00 PM CDT [facility] Mammography 1 [facility] [place] [address] Elva Olivares, DO 2 [facility] [address] [place] [address] Discharge Disposition: Discharged to home or Selfcare 02/10/2025 4:00 PM CDT [facility] Ultrasound [address] [place] [address] Elva Olivares, DO 2 [facility] [address] [place] [address] Discharge Disposition: Discharged to home or Selfcare 02/17/2025 1:40 PM CDT Hospital [facility] Periop [address] [place] [address] Cabrera Yadav MD #2 SHANELLE MCMILLAN, [facility] [address] [place] [address] 02/17/2025 1:40 PM CDT - 02/17/2025 3:40 PM CDT Surgery [facility] Periop 1 [facility] [place] [address] Cabrera Yadav MD #2 SHAN[address]LE MCMILLAN [facility] [address] [place] [address] CYSTOSCOPY AND LITHOLAPAXY, PATIENT WILL NEED A PAUL LIFT 03/02/2025 8:40 AM CDT Office Visit [facility] Medical [facility] - Family Medicine [facility] #2 [place] [address] Elva Olivares, DO 2 [facility]. [address] [place] [address] Scheduled Procedures Name Priority Associated Diagnoses Date/Ti me CYSTOSCOPY BLADDER STONE BLADDER STONES 02/17/2025 1:40 PM CDT documented as of this encounter Procedures Procedure Name Priority Date/Time Associated Diagnosis Comments URINALYSIS REFLEX IF INDICATED BY ABNORMAL RESULTS Routine 11/29/2020 12:45 PM DRAWING BOX TENDER Personal history of urinary (tract) infections CULTURE, URINE Routine 11/29/2020 12:45 PM DRAWING BOX TENDER Personal history of urinary (tract) infections documented in this encounter Results * CULTURE, URINE (11/29/2020 12:45 PM DRAWING BOX TENDER) CULTURE RESULTS STAPHYLOCOCCUS AUREUS 12/01/2020 4:47 PM DRAWING BOX TENDER [facility] Urine Non-Phlebotomy Collection / Unknown 11/29/2020 12:45 PM DRAWING BOX TENDER 11/29/2020 1:55 PM DRAWING BOX TENDER Narrative Organism Antibiotic Method Susceptibility Staphylococcus aureus Gentamicin [facility] IIB <=0.5 mcg/ml: Susceptible Staphylococcus aureus Nitrofurantoin [facility] IIB 32 mcg/ml: Susceptible Staphylococcus aureus Oxacillin [facility] IIB <=0.25 mcg/ml: Susceptible Staphylococcus aureus Tetracycline [facility] IIB <=1 mcg/ml: Susceptible Staphylococcus aureus Trimeth/Sulfamethoxazole [facility] R[facility] IIB <=10 mcg/ml: Susceptible Staphylococcus aureus Vancomycin [facility] VITEK IIB <=0.5 mcg/ml: Susceptible us Victoriano Reid MD MICROBIOLOGY - GENERAL ORDERABLE S Final Result [facility] [address] [facility] [place] [address], [place] * (ABNORMAL) URINALYSIS REFLEX IF INDICATED BY ABNORMAL RESULTS (11/29/2020 12:45 PM DRAWING BOX TENDER) SPECIFIC GRAVITY 1.010 1.003 - 1.030 11/29/2020 2:17 PM DRAWING BOX TENDER [facility] URINE PH 7.0 5.0 - 9.0 11/29/2020 2:17 PM DRAWING BOX TENDER [facility] WBC ESTERASE 500 /uL(A) Negative 11/29/2020 2:17 PM DRAWING BOX TENDER [facility] NITRITE Negative Negative 11/29/2020 2:17 PM DRAWING BOX TENDER [facility] PROTEIN, RANDOM URINE 30 mg/dL(A) Negative 11/29/2020 2:17 PM DRAWING BOX TENDER [facility] URINE GLUCOSE, QUAL Negative Negative 11/29/2020 2:17 PM DRAWING BOX TENDER [facility] URINE KETONES Negative Negative 11/29/2020 2:17 PM DRAWING BOX TENDER [facility] UROBILINOGEN Normal Normal mg/dL 11/29/2020 2:17 PM DRAWING BOX TENDER [facility] URINE BILIRUBIN Negative Negative 2:17 PM DRAWING BOX TENDER [facility] URINE BLOOD 250 /uL(A) Negative josefa/ul 11/29/2020 2:17 PM DRAWING BOX TENDER [facility] URINALYSIS COLOR Yellow 11/29/19 2:17 PM [facility] URINALYSIS CLARITY Very Cloudy 11/29/2020 2:17 PM [facility] WBC (Urine) 51-150(A) Negative, 0-5 /hpf 11/29/2020 2:17 PM [facility] URINE RBC'S 51-150(A) Negative, 0-2 /hpf 11/29/2020 2:17 PM DRAWING BOX TENDER [facility] EPITHELIAL CELLS Occasional /lpf 11/29/19 2:17 PM DRAWING BOX TENDER [facility] BACTERIA, URINE Many(A) Negative /hpf 11/29/2020 2:17 PM DRAWING BOX TENDER [facility] URINE MUCOUS Few 11/29/2020 2:17 PM DRAWING BOX TENDER [facility] Urine Non-Phlebotomy Collection / Unknown 11/29/2020 12:45 PM DRAWING BOX TENDER 11/29/2020 1:55 PM DRAWING BOX TENDER us Victoriano Reid MD URINE ORDERABLES Final Result [facility] #1 [place] [address] documented in this encounter Visit Diagnoses Diagnosis Personal history of urinary (tract) infections documented in this encounter Additional Health Concerns Infection Onset Date Last Indicated Resolved Time 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 06/05/2019 04/15/2021 7:28 AM CDT Assessment Noted Time PHQ-9 Depression Total Score: 0 10/24/19 20 11:16 AM DRAWING BOX TENDER documented as of this encounter Care Teams Heel Slicker Relationship Specialty Start Date End Date Victoriano Reid MD PCP - General Family Medicine 06/19/19 06/29/24 Elva Olivares DO 2 [facility] [address] [address] PCP - General Family Medicine 07/01/24 Malissa Joe, RN [place] Nurse Validation Engineer 12/03/23 12/03/23 Malissa Joe RN [place] Nurse Validation Engineer 12/05/23 12/05/23 [place], WATER RESOURCES ENGINEER [place] Middleware Consultant Validation Engineer 11/03/24 Cabrera Yadav MD #2 [facility] [address] [address] Consulting Physician Urology 11/07/24 documented as of this encounter
--- OUTSIDE RECORDS SUMMARY | 2025-01-16 18:59 | XMS_ITS | Encounter Summary ---
Author Organization [facility] Address [address] [facility] [place] [place] [address] Phone Care Team Providers Care Planning Engineer Name Role Phone Victoriano Reid MD Primary Care Provider [phone] Malissa Joe RN Unavailable Unavailable Malissa Joe RN Unavailable Unavailable Elva Olivares DO Primary Care Provider [phone] [place] LABORER WRECKING AND SALVAGING Unavailable UnaCabrera Nevarez MD Unavailable [phone] Reason for Visit * Reason Onset Date Comments Results 10/25/2020 Encounter Details Date Type Department Care Team (Late st Contact Info) Description 10/25/2020 Telephone [facility] [address] [place] [address] Victoriano Reid MD #1 [place] [address] Results Social History Tobacco Use Types Packs/Day [...] RN - 10/25/2020 5:46 PM CST lmom TECHNICIAN * Telephone Encounter - Victoriano Reid MD - 10/25/2020 4:56 PM CST The urine is not showing quite enough to be infection but I will treat her as I know that her urinewas very foul smelling and has a lot of sediment and this is from the bacteria. I will send in an antibiotic. TECHNICIAN * Telephone Encounter - Jelena Cotto RN - 10/25/2020 4:04 PM CST Patient's daughter calling for results from UA and Urine culture from 10/22/20. TECHNICIAN documented in this encounter Plan of Treatment Upcoming Encounters Date Type Department Care Team (Latest Contact Info) Description 01/21/2025 10:30 AM CDT Clinical Support [facility] UROLOGY #[address] [place] [address] Nurse, Ken Urology 02/02/2025 11:00 AM CDT [facility]ointment [facility] CT 1 [place] [address] Cabrera Yadav MD #[address] [address] Discharge Disposition: Discharged to home or Selfcare 02/10/2025 3:00 PM CDT [facility] 1 [place] [address] Elva Olivares, DO 2 [facility] [address] [place] [address] Discharge Disposition: Discharged to home or Selfcare 02/10/2025 4:00 PM CDT [facility] 1 [facility] [place] [address] Elva Olivares, DO 2 [facility] [address] [place] [address] Discharge Disposition: Discharged to home or Selfcare 02/17/2025 1:40 PM CDT [facility] 1 [facility] [place] [address] Cabrera Yadav MD #[address] [address] 02/17/2025 1:40 PM CDT - 02/17/2025 3:40 PM CDT Surgery [facility] Periop 1 [facility] [place] [address] Cabrera Yadav MD #[address] [address] CYSTOSCOPY AND LITHOLAPAXY, PATIENT WILL NEED A PAUL LIFT 03/02/2025 8:40 AM CDT Office Visit [facility] Medical Group - Family Medicine [facility] #2 [place] [address] Elva Olivares, DO 2 [facility] [address] [place] [address] Scheduled Procedures Name Priority Associated Diagnoses Date/Ti me CYSTOSCOPY BLADDER STONE BLADDER STONES 02/17/2025 1:40 PM CDT documented as of this encounter Visit Diagnoses Not on filedocumented in this encounter Additional Health Concerns Infection Onset Date Last Indicated Resolved Time 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 06/05/2019 04/15/2021 7:28 AM CDT Assessment Noted Time PHQ-9 Depression Total Score: 0 10/24/19 11:16 AM EMG TECHNICIAN documented as of this encounter Care Teams Planning Engineer Relationship Specialty Start Date End Date Victoriano Reid MD PCP - General Family Medicine 06/19/19 06/29/24 Elva Olivares DO 2 [facility] MCMILLAN [facility] [address] [place] [address] PCP - General Family Medicine 07/01/24 Malissa Joe RN [place] Nurse Veneer Jointer Operator 12/03/23 12/03/23 Malissa Joe RN [place] Nurse Veneer Jointer Operator 12/05/23 12/05/23 Hinton, LABORER WRECKING AND SALVAGING [place] Veneer Glue Spreader Veneer Jointer Operator 11/03/24 Cabrera Yadav MD #2 SHANELLE MCMILLAN [facility] [address] [place] [address] Consulting Physician Urology 11/07/24 documented as of this encounter
--- OUTSIDE RECORDS SUMMARY | 2025-01-16 18:59 | XMS_ITS | Encounter Summary ---
Author Organization [facility] Address [address] [facility] [place] [address] Phone Care Team Providers Care Regional Loss Prevention Manager Name Role Phone Victoriano Reid MD Primary Care Provider [phone] Malissa Joe RN Unavailable Unavailable Malissa Joe RN Unavailable Unavailable Elva Olivares DO Primary Care Provider [phone] [place] ENVIRONMENTAL FIELD TECHNICIAN Unavailable Unaabdirizaki Cabrera Dodge MD Unavailable [phone] Encounter Details Date Type Department Care Team (Late st Contact Info) Description 07/05/2023 Lab Requisition [facility] Laboratory Services 1 [place] [address] Victoriano Reid MD #1 [place] [address] Encounter for fitting and adjustment of urinary [...] 10:30 AM CDT Clinical Support [facility] UROLOGY #2 [place] [address] Nurse, Ken Urology 02/02/2025 11:00 AM CDT [facility] 1 [facility] [place] [address] Cabrera Yadav MD #2 [facility] [address] [place] [address] Discharge Disposition: Discharged to home or Selfcare 02/10/2025 3:00 PM CDT [facility] Mammography 1 [place] [address] Elva Olivares, DO 2 [facility]. [address] [place] [address] Discharge Disposition: Discharged to home or Selfcare 02/10/2025 4:00 PM CDT [facility] Ultrasound 1 [facility] [place] [address] Elva Olivares, DO 2 [facility] [address] [place] [address] Discharge Disposition: Discharged to home or Selfcare 02/17/2025 1:40 PM CDT Hospital [facility] Periop 1 [facility] [place] [address] Cabrera Yadav MD #2 [facility] [address] [place] [address] 02/17/2025 1:40 PM CDT - 02/17/2025 3:40 PM CDT Surgery [facility] Periop 1 [facility] [place] [address] Cabrera Yadav MD #2 [facility] [address] [place] [address] CYSTOSCOPY AND LITHOLAPAXY, PATIENT WILL NEED A PAUL LIFT 03/02/2025 8:40 AM CDT Office Visit [facility] Medical Group - Family Medicine [facility] #2 [place] [address] Elva Olivares, DO 2 [facility] [address] [address] Scheduled Procedures Name Priority Associated Diagnoses Date/Ti [...] REPEAT URINE CULTURE. 07/06/2023 10:57 PM CDT [facility] Culture Non-Phlebotomy Collection / Unknown 07/05/2023 2:20 PM CDT 07/05/2023 1:07 PM CDT Narrative [facility] - 07/06/2023 10:57 PM CDT [...] Final Result [facility] [address] [place] [address], documented in this encounter Visit Diagnoses Diagnosis Encounter for fitting and adjustment of urinary device Personal history of urinary (tract) infections documented in this encounter Additional Health Concerns Assessment Noted Time PHQ-9 Depression Total Score: 0 08/15/20 21 10:00 AM CDT documented as of this encounter Care Teams Regional Loss Prevention Manager Relationship Specialty Start Date End Date Victoriano Reid MD PCP - General Family Medicine 06/19/19 06/29/24 Elva Olivares DO 2 [facility]. [address] [place] [address] PCP - General Family Medicine 07/01/24 Malissa Joe, RN [place] Nurse Center Punch Operator 12/03/23 12/03/23 Malissa Joe, RN [place] Nurse Center Punch Operator 12/05/23 12/05/23 [place], [facility] Machine Sizer Center Punch Operator 11/03/24 Cabrera Yadav MD #2 [facility] [address] [place] [address] Consulting Physician Urology 11/07/24 documented as of this encounter
--- OUTSIDE RECORDS SUMMARY | 2025-01-16 18:59 | XMS_ITS | Encounter Summary ---
Author Organization [facility] Address [address] [place] [address] Phone Care Team Providers Care Pharmacy Retail Support Specialist Name Role Phone Victoriano Reid MD Primary Care Provider [phone] Malissa Joe RN Unavailable Unavailable Malissa Joe RN Unavailable Unavailable Elva Olivares DO Primary Care Provider [phone] [place] PIZZA MAKER Unavailable Cabrera Smallwood MD Unavailable [phone] Reason for Visit * Reason Comments Medication Refill Encounter Details Date Type Department Care Team (Late st Contact Info) Description 10/02/2020 Refill [facility] Medical Group - Family Medicine [facility] #2 [place] [address] Victoriano Reid MD #1 [place] [address] Medication Refill Social History Tobacco Use Types [...] Visits Recent Outpatient Visits 1 month ago [facility] Victoriano Toledo MD 8 months ago Paralysis of both lower limbs (HCC) [facility] Victoriano Toledo MD 11 months ago Uncontrolled type 2 diabetes mellitus with hyperglycemia (HCC) [facility] Vicotriano Toledo MD 1 year ago 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) [facility] Victoriano Toledo MD 1 year ago Annual visit for general adult medical examination with abnormal findings [facility] Victoriano Toledo MD Upcoming Appointments Future Appointments In 3 days Sharonda Carrion, FRANCIS [facility] In 1 week Naa Rios RN [facility] In 1 week Sharonda Carrion PTA [facility] In 2 weeks Sharonda Carrion, SPIRITS MODEL [facility] In 2 weeks Sharonda Carrion, SPIRITS MODEL [facility] In 3 weeks Naa Rios RN [facility] In 3 weeks Lorraine Russell, JIM [facility] In 3 weeks Sharonda Carrion, SPIRITS MODEL [facility] In 1 month Sharonda Carrion, SPIRITS MODEL [facility] In 1 month Sharonda Carrion, SPIRITS MODEL [facility] In 1 month Naa Rios RN [facility] In 1 month Sharonda Carrion, SPIRITS MODEL [facility] In 1 month Sharonda Carrion, SPIRITS MODEL [facility] In 1 month [facility] Russell, [facility] Lorraine Russell, PT [facility] In 1 month Naa Rios RN [facility] Health MOBILE LOUNGE DRIVER OR OPERATOR - Recent and Past Visits Recent Visits Date Type Provider Dept 08/06/20 Telemedicine Victoriano Reid MD [facility] 01/22/20 Telemedicine Victoriano Reid MD [facility] 10/24/19 Office Visit Victoriano Reid MD [facility] 07/17/19 Office Visit [facility] Showing recent visits within past 460 days with a meds authorizing provider and meeting all other requirements Future Appointments No visits were found meeting these conditions. Showing future appointments within next 90 days with a meds authorizing provider and meeting all other requirements CHEMIST documented in this encounter Plan of Treatment Upcoming Encounters Date Type Department Care Team (Latest Contact Info) Description 01/21/2025 10:30 AM CDT Clinical Support [facility] UROLOGY #2 [place] [address] Nurse, Ken Urology 02/02/2025 11:00 AM CDT [facility] 1 [place] [address] Cabrera Yadav MD #2 [facility] [address] [place] [address] Discharge Disposition: Discharged to home or Selfcare 02/10/2025 3:00 PM CDT [facility] 1 [place] [address] Elva Olivares, DO 2 [facility] [address] [place] [address] Discharge Disposition: Discharged to home or Selfcare 02/10/2025 4:00 PM CDT [facility] 1 [facility] [place] [address] Elva Olivares, DO 2 [facility] [place] MCMILLAN [facility] [address] [place] [address] Discharge Disposition: Discharged to home or Selfcare 02/17/2025 1:40 PM CDT Hospital [facility] 1 [facility] [place] [address] Cabrera Yadav MD #2 [facility] [address] [place] [address] 02/17/2025 1:40 PM CDT - 02/17/2025 3:40 PM CDT [facility] 1 [facility] [place] [address] Cabrera Yadav MD #2 [address] [place] [address] CYSTOSCOPY AND LITHOLAPAXY, PATIENT WILL NEED A PAUL LIFT 03/02/2025 8:40 AM CDT Office Visit [facility] Medical Group - Family Medicine [facility] #[address] [place] [address] Elva Olivares, DO 2 [facility] [address] [place] [address] Scheduled Procedures Name Priority Associated Diagnoses Date/Ti me CYSTOSCOPY BLADDER STONE BLADDER STONES 02/17/2025 1:40 PM CDT documented as of this encounter Visit Diagnoses Not on filedocumented in this encounter Additional Health Concerns Infection Onset Date Last Indicated Resolved Time 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 06/05/2019 04/15/2021 7:28 AM CDT Assessment Noted Time PHQ-9 Depression Total Score: 0 10/24/19 20 11:16 AM HPLC CHEMIST documented as of this encounter Care Teams Pharmacy Retail Support Specialist Relationship Specialty Start Date End Date Victoriano Reid MD PCP - General Family Medicine 06/19/19 06/29/24 Elva Olivares DO 2 [facility] [address] [place] [address] PCP - General Family Medicine 07/01/24 Malissa Joe, RN [place] Nurse Drive In Theater Attendant 12/03/23 12/03/23 Malissa Joe, RN [place] Nurse Drive In Theater Attendant 12/05/23 12/05/23 Hinton, PIZZA MAKER [place] Literacy Consultant Drive In Theater Attendant 11/03/24 Cabrera Yadav MD #2 [facility] [address] [place] [address] Consulting Physician Urology 11/07/24 documented as of this encounter
--- OUTSIDE RECORDS SUMMARY | 2025-01-16 18:59 | XMS_ITS | Encounter Summary ---
Author Organization [facility] Address [address] [place] [address] Phone Care Team Providers Care Waterproof Coating Machine Tender Name Role Phone Victoriano Reid MD Primary Care Provider [phone] Malissa Joe RN Unavailable Unavailable Malissa Joe RN Unavailable Unavailable Elva Olivares DO Primary Care Provider [phone] [place] INTERNATIONAL MARKETING EXECUTIVE Unavailable Cabrera Smallwood MD Unavailable [phone] Reason for Visit * Reason Comments Medication Refill Encounter Details Date Type Department Care Team (Late st Contact Info) Description 08/07/[address] [facility] - [facility] [address] [place] [address] Victoriano Reid MD [address] [place] [address] Medication Refill Social History Tobacco Use Types [...] [place] 08/15/21 Office Visit Victoriano Reid MD [facility] Ken Showing recent visits within past [...] days and meeting all other requirements nystatin [id number] UNIT/GM Powder [Pharmacy Med Name: NYSTOP TOP [...] [place] 08/15/21 Office Visit Victor[facility] MD [facility] [place] Showing recent visits within past 365 [...] [facility] [facility] [place] [address] Nurse, [facility] 02/02/2025 11:00 AM CDT [facility] [address] [place] [address] Cabrera Yadav MD #[address] [facility] [address] [place] [address] Discharge Disposition: Discharged to home or Selfcare 02/10/2025 3:00 PM CDT [facility]ment [facility] [address] [place] [address] Elva Olivares, DO 2 [facility] [address] [place] [address] Discharge Disposition: Discharged to home or Selfcare 02/10/2025 4:00 PM CDT Appointment [facility] [address] [place] [address] Elva Olivares, DO 2 [facility] [address] [place] [address] Discharge Disposition: Discharged to home or Selfcare 02/17/2025 1:40 PM CDT Hospital [facility] [address] [place] [address] Cabrera Yadav MD #[address] [address] 02/17/2025 1:40 PM CDT - 02/17/2025 3:40 PM CDT Surgery [facility] [address] [place] [address] Cabrera Yadav MD #2 [facility], [facility] [address] [place] [address] CYSTOSCOPY AND LITHOLAPAXY, PATIENT WILL NEED A PAUL LIFT 03/02/2025 8:40 AM CDT [facility] Visit [facility] [address] [place] [address] Elva Olivares DO 2 [address] [facility] [address] [place] [address] Scheduled Procedures Name Priority Associated Diagnoses Date/Ti [...] documented as of this encounter Care Teams Waterproof Coating Machine Tender Relationship Specialty Start Date End Date Victoriano Reid MD PCP - General Family Medicine 06/19/19 06/29/24 Elva Olivares DO 2 [facility] [address] [place] [address] PCP - General Family Medicine 07/01/24 Malissa Joe, RN [place] Nurse Delivery Crew Worker 12/03/23 12/03/23 Malissa Joe, RN [place] Nurse Delivery Crew Worker 12/05/23 12/05/23 [place] [facility] [place] Lunchroom Operator Delivery Crew Worker 11/03/24 Cabrera Yadav MD #2 [facility] [address] [place] [address] Consulting Physician Urology 11/07/24 documented as of this encounter
--- OUTSIDE RECORDS SUMMARY | 2025-01-16 18:59 | XMS_ITS | Encounter Summary ---
Author Organization [facility] Address [address] [place] [address] Phone Care Team Providers Care Supervisor Reactor Fueling Name Role Phone Victoriano Reid MD Primary Care Provider [phone] Malissa Joe RN Unavailable Unavailable Malissa Joe RN Unavailable Unavailable Elva Olivares DO Primary Care Provider [phone] [place] SCUBA DIVING INSTRUCTOR Unavailable Unaabdirizaki Cabrera Dodge MD Unavailable [phone] Encounter Details Date Type Department Care Team (Late st Contact Info) Description 07/11/2023 Lab Requisition [facility] Laboratory Services [address] [place] [id number] Victoriano Reid MD [address] [place] [address] Personal history of urinary (tract) infections; Neuromuscular [...] Description 01/21/2025 10:30 AM CDT Clinical Support [facility] #[address] [place] [address] Nurse, [facility] 02/02/2025 11:00 AM CDT [facility] [place] [address] Cabrera Yadav MD #2 [facility], [facility] [address] [place] [address] Discharge Disposition: Discharged to home or Selfcare 02/10/2025 3:00 PM CDT [facility] [address] [place] [address] Elva Olivares, DO 2 [facility] [address] [place] [address] Discharge Disposition: Discharged to home or Selfcare 02/10/2025 4:00 PM CDT [facility] 1 [facility] [place] [address] Elva Olivares, DO 2 [facility] [address] [place] [address] Discharge Disposition: Discharged to home or Selfcare 02/17/2025 1:40 PM CDT [facility] [place] [address] Cabrera Yadav MD #2 [facility] [address] [place] [address] 02/17/2025 1:40 PM CDT - 02/17/2025 3:40 PM CDT Surgery [facility] Periop 1 [facility] [place] [phone] Cabrera Yadav MD #2 [facility] [address] [place] [address] CYSTOSCOPY AND LITHOLAPAXY, PATIENT WILL NEED A PAUL LIFT 03/02/2025 8:40 AM CDT Office Visit [facility] - Family Medicine [facility] #[address] [place] [address] Elva Olivares, DO 2 [facility] [address] Scheduled Procedures Name Priority Associated Diagnoses Date/Ti [...] RESULTS CITROBACTER AMALONATICUS 07/14/2023 4:17 PM CDT [facility] CULTURE RESULTS ENTEROCOCCUS FAECALIS 07/14/2023 4:17 PM CDT [facility] Culture No Phlebotomy Charged / Unknown 07/11/2023 11:30 AM CDT 07/11/2023 1:28 PM CDT Narrative [facility] - 07/14/2023 4:17 PM CDT Susceptibility not [...] MICROBIOLOGY - GENERAL ORDERABLE S Final Result [facility] [address] [place] [address], documented in this encounter Visit Diagnoses Diagnosis Personal history of urinary (tract) infections Neuromuscular dysfunction of bladder, unspecified documented in this encounter Additional Health Concerns Assessment Noted Time PHQ-9 Depression Total Score: 0 08/15/20 21 10:00 AM CDT documented as of this encounter Care Teams Supervisor Reactor Fueling Relationship Specialty Start Date End Date Victoriano Reid MD PCP - General Family Medicine 06/19/19 06/29/24 Elva Olivares DO [address] [address] PCP - General Family Medicine 07/01/24 Joe, Malissa M, RN [place] Nurse Itinerant Teacher Assistant 12/03/23 12/03/23 Malissa Joe, RN [place] Nurse Itinerant Teacher Assistant 12/05/23 12/05/23 [place], SCUBA DIVING INSTRUCTOR [place] Professor Of Psychiatry Itinerant Teacher Assistant 11/03/24 Cabrera Yadav MD #[address] [address] Consulting Physician Urology 11/07/24 documented as of this encounter
--- OUTSIDE RECORDS SUMMARY | 2025-01-16 18:59 | XMS_ITS | Clinical Summary ---
Author Organization [facility] Address [address] [place] [address] Phone Care Team Providers Care Police Patrol Officer Name Role Phone EliseElva Becky GARCIA Primary Care Provider [phone] Cabrera Yadav MD Unavailable [phone] Allergies Active Allergy Reactions Criticality Noted Date Comments Marcchirag Manley High 04/05/2019 Medications acetaminophen (TYLENOL) 500 MG TabletIndication s:Fever,Pain Take 1,000 mg by mouth every 6 hours as needed for Fever or Mild pain or more severe pain if patient requests. Indications: Fever, Pain Active Diapers & Supplies MiscIndications: Neurogenic bladder Use as directed 120 Each 11 019 Active Disposable Gloves MiscIndications: Neurogenic bladder Use when changing diapers and armijo Neurogenic bladder 100 Each 3 019 Active Misc. Devices (MATTRESS PAD) MiscIndications: Neurogenic bladder Use under patient for urine absorption Neurogenic bladder. 100 Each 3 019 Active Misc. Devices Misc Supply and instructions:bar rier cream Apply to pressure areas on body four times a day. 1 Each 5 019 Active Lancet Devices (Lancing Device) Misc Use as directed to test blood glucose. Testing frequency: 3 to 4 times a day. Dx: E11.65 Diabetes type 2 1 Each 020 Active Misc. Devices MiscIndications: Paralysis of both lower limbs (HCC) Supply and instructions: 1 Each 020 Active Incontinence Supplies MiscIndications: Neurogenic bladder X large diapers, incontinence pads for bed and medium gloves 100 Each 3 021 Active Blood Glucose Monitoring Suppl DeviceIndication s:Type 2 diabetes mellitus with other specified complication, without long-term current use of insulin Use to test once daily E11.69 1 Each 022 Active Glucose Blood (Glucose Meter Test) StripIndications :Type 2 diabetes mellitus with other specified complication, without long-term current use of insulin Test once daily 90 Strip 3 022 Active Lancets MiscIndications: Type 2 diabetes mellitus with other specified complication, without long-term current use of insulin Test once daily 90 Lancet 3 022 Active Alcohol Swabs (Alcohol Prep) 70 % PadsIndications: Uncontrolled type 2 diabetes mellitus with hyperglycemia ([facility]) USE PRIOR TO TESTING BLOOD SUGAR AND FOR INSULIN INJECTIONS, TEST 4 TIMES PER DAY 100 Each 6 023 Active Misc. Devices MiscIndications: Spinal cord compression due to malignant neoplasm metastatic to spine ([facility]) Supply and instructions: please assess and repair pump on the air mattress. 1 Each 024 Active Misc. Devices MiscIndications: Spinal cord compression due to malignant neoplasm metastatic to spine ([facility]) Supply and instructions: 1 Each 024 Active ergocalciferol (VITAMIN D) 15635 UNIT CapsuleIndicatio ns:Vitamin D Deficiency TAKE 1 CAPSULE BY MOUTH 1 TIME A WEEK 12 Capsule 3 024 Active gabapentin (NEURONTIN) 300 MG CapsuleIndicatio ns:Neuropathic Pain Take 2 Capsules by mouth every 8 hours. 270 Capsule 1 024 Active loperamide (IMODIUM) 2 MG CapsuleIndicatio ns:Diarrhea Take 1 Capsule by mouth 4 times daily as needed for Diarrhea. Take 2 caps = 4mg after first loose stool then take 1 cap = 2mg after each subsequent loose stool. Do not exceed 16 mg = 8 caps in 24 hours. As needed for diarrhea 100 Capsule 1 024 Active montelukast (SINGULAIR) 10 MG Tablet Take 1 Tablet by mouth every evening. 90 Tablet 1 07/02/2 024 Active Additional Information Patient not taking.Reported on 01/02/2025 nystatin 195430 UNIT/GM Powder Apply 3 times daily. Apply to affected area as directed. 60 g 3 Active oxybutynin (DITROPAN-XL) 10 MG TABLET SR 24 HRIndications:Ur inary Incontinence,rosa romuscular bladder dysfunction Take 1 Tablet by mouth daily. 90 Tablet Active Simethicone 80 MG TabletIndication s:Flatulence Take 1 Tablet by mouth 4 times daily as needed for Other (for gas). 360 Each 1 Active Diclofenac Sodium (VOLTAREN) 1 % GelIndications:p ain L shoulder Apply 4 g 4 times daily. Left shoulder 100 g 5 Active Citric Di-Fhskwrxanyh-C g Carb (Renacidin) SolutionIndicati ons:Urinary Catheter Irrigation 30 mL by Intracatheter route daily. instill 30ml into catheter daily. Clamp catheter for 30-60minutes after irrigation. Use saline solution to flush until can be obtained 2700 mL Active nitrofurantoin, monohydrate-macr ocrystal, (Macrobid) 100 MG Capsule Take 100 mg by mouth 2 times daily. Take one dose every 12 hours until completed. Active aspirin EC 81 MG Tablet Delayed Response Take 81 mg by mouth daily. Active potassium chloride (MICRO-K) 10 MEQ Capsule CR TAKE 1 CAPSULE BY MOUTH TWICE DAILY 180 Capsule 1 025 Active acyclovir (ZOVIRAX) 400 MG Tablet TAKE 1 TABLET BY MOUTH THREE TIMES DAILY 90 Tablet 1 025 Active baclofen (LIORESAL) 10 MG Tablet TAKE 1 TABLET BY MOUTH THREE TIMES DAILY NEEDED FOR MUSCLE SPASMS 90 Tablet 025 Active baclofen (LIORESAL) 10 MG TabletIndication s:Muscle Spasm,Muscle Spasticity TAKE 1 TABLET BY MOUTH THREE TIMES DAILY NEEDED FOR MUSCLE SPASMS 270 Tablet 024 2024 Discontinued Active Problems Problem Noted Date Diagnosed Date [...] 09/19/20 22 Anxiety 04/10/2019 09/19/2022 Hypertension, essential 02/23/201903/2022 Overview (06/19/2019): Last Assessment & Plan: - In setting of pain. BP improved as pain improves. - No need for treatment now. Encounters Date Type Department Care Team Description 01/14/2025 Refill [facility] - [place] [address] [place] [address] Victoriano Reid MD Medication Refill 01/14/2025 Travel 01/09/2025 Telephone [facility] #2 [place] [address] Cabrera Yadav MD 01/08/2025 Telephone [facility] [facility] [place] [address] Cabrera Yadav MD 01/02/2025 10:30 AM CDT Procedure Visit [facility] #2 [facility] [place] [address] Cabrera Yadav MD Neurogenic bladder (Primary Dx); UTI symptoms; Gross hematuria Discharge Disposition: Discharged to home or Selfcare 01/02/2025 Travel 12/19/2024 [facility] [address] [place] [address] Elva Olivares, DO Care Management 12/09/2024 [facility]ill [facility] [address] [place] [address] Victoriano Reid MD Medication Refill 11/21/2024 1:15 PM DEVELOPMENT ENG Clinical Support [facility] #2 [place] [phone] Nurse, [facility] Suprapubic catheter (HCC) (Primary Dx) Discharge Disposition: Discharged to home or Selfcare 11/21/2024 Travel 11/10/2024 [facility] [address] [place] [address] Elva Olivares, DO COVID-19 11/10/2024 Nurse [facility] [address] [place] [address] Elva Olivares, DO Sinus Pain 11/07/2024 12:45 PM DEVELOPMENT ENG Office Visit [facility] UR[facility] #[address] [place] [address] Singh Myrick APRN, WINDOWS LAPTOP TECHNICIAN Leif, Cabrera Gan MD Neurogenic bladder; Suprapubic catheter (HCC) Discharge Disposition: Discharged to home or Selfcare 11/06/2024 Travel 11/03/2024 Patient Outreach [facility] [address] [place] [address] [place], [facility] Care Management ( outreach ) 10/30/2024 [facility]phone [facility] [address] [place] [address] Elva Olivares, DO Orders 10/24/2024 [facility] [address] [place] [address] Cher Estrada, OT OT - DISCHARGE SUMMARY from Last 3 Months Family History Medical [...] drink = 0.6 oz pur e alcohol) [facility] Utilities Answer Date Recorded In the past 12 months has e [place], gas, oil, or water [employer] threatened to shut off services in your [...] week 04/15/2024 How often do you attend [facility] or restorationist services? Never 04/15/2024 Do you belong to any clubs o r organizations such as congregational groups, unions, fraternal or athletic groups, or [...] Total Score - Questions 1-9 0 12/14 [facility] [place] of Occupat ional Health - Occupational Stress [...] place to sleep or slept in a custodial (including now)? No 12/20/2023 Housing Stability Vital Sign Answer Saleem e Recorded In the last 12 months, was t here a time when you were not able to pay the mortgage or rent on time? No 04/15/2024 Number of Times Moved in the Last Year Not on fi le 04/15/2024 At any time in the past 12 m [facility], were you homeless or living in a custodial (including now)? No 04/15/2024 Education Answer Date [...] Sign Reading Time Taken Comments Blood Pressure 115/72 01/02/2025 10:41 AM CDT Pulse 66 01/02/2025 10:41 AM CDT Temperature 36.2 C (97.2 F) 10/16/2024 12:38 PM DEVELOPMENT ENG Respiratory Rate 18 11/07/2024 12:31 PM DEVELOPMENT ENG Oxygen Saturation 93% 01/02/2025 10:41 AM CDT Inhaled Oxygen Concentration - - Weight 172.4 kg (380 lb) 01/02/2025 10:41 AM CDT Height 167.6 cm (5' 6 ) 01/02/2025 10:41 AM CDT Body Mass Index 61.33 01/02/2025 10:41 AM CDT Plan of Treatment Upcoming Encounters Date Type Department Care Team (Latest Contact Info) Description 01/21/2025 10:30 AM CDT Clinical Support [facility] #[address] [place] [address] Nurse [facility] 02/02/2025 11:00 AM CDT [facility] [address] [place] [address] Cabrera Yadav MD #2 [facility] [address] [place] [address] Discharge Disposition: Discharged to home or Selfcare 02/10/2025 3:00 PM CDT [facility] M[facility] [address] [place] [address] Elva Olivares, DO 2 [facility] [address] [place] [address] Discharge Disposition: Discharged to home or Selfcare 02/10/2025 4:00 PM CDT [facility]ment [facility] Ultrasound [address] [place] [address] Elva Olivares, DO 2 [facility] [address] [place] [address] Discharge Disposition: Discharged to home or Selfcare 02/17/2025 1:40 PM CDT Hospital [facility] 1 [facility] [place] [address] Cabrera Yadav MD #2 [facility] [address] [place] [address] 02/17/2025 1:40 PM CDT - 02/17/2025 3:40 PM CDT Surgery [facility] Periop 1 [facility] [place] [address] Cabrera Yadav MD [address] [address] CYSTOSCOPY AND LITHOLAPAXY, PATIENT WILL NEED A PAUL LIFT 03/02/2025 8:40 AM CDT Office Visit [facility] - Family Medicine - [place] #[address] [place] [address] Elva Olivares, DO 2 [facility] [address] [place] [address] Scheduled Procedures Name Priority Associated Diagnoses Date/Ti me CYSTOSCOPY BLADDER STONE BLADDER STONES 02/17/2025 1:40 PM CDT Health Maintenance Due Date Last Done Comments [...] Diabetes: Foot Exam 10/24/2020 10/24/2019, 10/24/2019, 10/24/2019 Diabetes: Hemoglobin A1c 10/16/2024 024, 12/20/2023, 03/29/2023, Additional history exists Diabetes: Nephropathy Screening 05/27/2025 05/27/2024, 05/27/2024, 12/20/2023, Additional history exists Influenza Immunization (Season Ended) 2025 Hepatitis B Immunization Aged Out No longer eligible based on patient's age to complete this topic Meningococcal Immunization (ACWY) Aged Out No longer eligible based on patient's age to complete this topic Rotavirus Immunization Aged Out No lo nger eligible based on patient's age to complete this topic Procedures Procedure Name Priority Date/Time Associated Diagnosis Comments PATHOLOGY CYTOLOGY NON-SUPERVISOR BYPRODUCTS Routine 01/02/2025 11:01 AM CDT Neurogenic bladder UTI symptoms CULTURE, URINE Routine 01/02/2025 11:01 AM CDT Neurogenic bladder UTI symptoms UR MICROALBUMIN/CREATIN INE RATIO RANDOM Routine 05/27/2024 1:00 PM CDT Type 2 diabetes mellitus without complications (HCC) Other correction (current) drug therapy POCT GLYCOSYLATED HEMOGLOBIN Routine 04/15/2024 11:24 AM CDT Type 2 diabetes mellitus without complication, without long-term current use of insulin (HCC) from Last 3 Months or Most Recently Relevant to Health Maintenance Results * PATHOLOGY CYTOLOGY NON-SUPERVISOR BYPRODUCTS (01/02/2025 11:01 AM CDT) Case Report Medical Cytology Report Case: [id number] Authorizing Provider: Cabrera Yadav MD Collected: 01/02/2025 11:01 AM Ordering [facility]: [facility] Received: 01/02/2025 11:01 AM GROUP UROLOGY Pathologist: Azra Moncada MD PhD Specimen: Urine Bladder 01/06/2025 10:[address] [facility] FINAL DIAGNOSIS Urine for Cytology: - Less than optimal due to degeneration - Negative for high-grade urothelial carcinoma - Degenerated epithelial cells, neutrophils, and debris 01/06/2025 10:[address] at 1031 CDT Gross Description A. The specimen is received fresh labeled with patient's name, Mandy Huang. The specimen is designated as urine from bladder during a cystoscopy procedure . The specimen consists of 40 ml of clear light pink fluid from which two cytospins are prepared for cytologic examination. Prior to examination, these will be fixed in 95% alcohol. MH/dv 01/06/2025 10:[address] [facility] Other (Urine Bladder) Non-Phlebotomy Collection / Unknown 01/02/2025 11:01 AM CDT 01/02/2025 11:01 AM CDT Cabrera Ward MD PATHOLOGY/CYTOLOGY ORDERABLES Final Result [facility] #1 [facility] [place] [address] * CULTURE, URINE (01/02/2025 11:01 AM CDT) CULTURE RESULTS KLEBSIELLA OXYTOCA 01/05/2025 4:05 PM CDT [facility] CULTURE RESULTS ESCHERICHIA COLI 01/05/2025 4:05 PM CDT [facility] CULTURE RESULTS ENTEROCOCCUS FAECALIS 01/05/2025 4:05 PM CDT [facility] Culture (Pre-Op Catheter) Non-Phlebotomy Collection / Unknown 01/02/2025 11:01 AM CDT 01/02/2025 11:01 AM CDT Narrative [facility] - 01/05/2025 4:05 PM CDT Susceptibility not performed on enterococcus species. Due to high achievable concentrations in urine, Ampicillin is the drug of choice for treating infections limited to the lower urinary tract (regardless of Vancomycin susceptibility). For allergic patients, Nitrofurantoin or a quinolone may be substituted. Organism Antibiotic Method Susceptibility Klebsiella oxytoca Ampicillin/sulbactam [facility] V[facility] IIB 8 mcg/ml: Susceptible Klebsiella oxytoca Cefepime [facility] IIB <=1 mcg/ml: Susceptible Klebsiella oxytoca Ceftriaxone [facility] IIB <=1 mcg/ml: Susceptible Klebsiella oxytoca Gentamicin [facility] IIB <=1 mcg/ml: Susceptible Klebsiella oxytoca Levofloxacin [facility] IIB <=0.12 mcg/ml: Susceptible Klebsiella oxytoca Meropenem [facility] IIB <=0.25 mcg/ml: Susceptible Klebsiella oxytoca Nitrofurantoin [facility] IIB 32 mcg/ml: Susceptible Klebsiella oxytoca Piperacillin/Tazobactam [facility] IIB <=4 mcg/ml: Susceptible Klebsiella oxytoca Tobramycin [facility] IIB <=1 mcg/ml: Susceptible Klebsiella oxytoca Trimeth/Sulfamethoxazole [facility] IIB <=20 mcg/ml: Susceptible Escherichia coli Ampicillin [facility] IIB 16 mcg/ml: Intermediate Escherichia coli Ampicillin/sulbactam [facility] IIB 8 [...] [facility] I IB <=20 mcg/ml: Susceptible Enterococcus faecalis Ampicillin [facility] IIB <=2 mcg/ml: Susceptible Enterococcus faecalis Benzylpenicillin [facility] VITEK IIB 1 mcg/ml: Susceptible Enterococcus faecalis Linezolid [facility] VITEK IIB 2 mcg/ml: Susceptible Enterococcus faecalis Vancomycin [facility] VITEK IIB 2 mcg/ml: Susceptible us Cabrera Ward MD MICROBIOLOGY - GENERAL ORDERAB LES Final Result [facility] [address] [place] [address], [place] * (ABNORMAL) UR MICROALBUMIN/CREATININE RATIO RANDOM (05/27/2024 1:00 PM CDT) RAN UR MICROALBUMIN 0.89 mg/dL 05/27/2024 3:[address] [facility] Comment:No reference range h as been established. Consider Clinical Correlation. CREATININE URINE 7.4 mg/dL 05/27/20 3:[address] [facility] Comment:No reference range h as been established. Consider Clinical Correlation. ALB/CREAT RATIO 120(H) 0 - 30 mg/g CRE 05/27/2024 3:[address] [facility] Urine Non-Phlebotomy Collection / Unknown 05/27/2024 1:00 PM CDT 05/27/2024 2:30 PM CDT us Singh Myrick APRN, CNP URINE ORDERABLES Final Result [facility] #1 [place] [address] * POCT GLYCOSYLATED HEMOGLOBIN (04/15/2024 11:24 AM CDT) HGB-A1C 6.0 4 - 6 % Blood 04/15/2024 11:2 4 AM CDT us Singh Myrick APRN, CNP POINT OF CARE TE STING (MANUAL) Final Result from Last 3 Months or Most Recently Relevant to Health Maintenance [place] [address] MEDICARE C [employer] Advance Directives * Full Code (Latest Code Status on File) Date Activated Date Inactivated Comments 04/10/2019 2:14 PM Care Teams Police Patrol Officer Relationship Specialty Start Date End Date Elva Olivares DO 2 [facility] [address] [place] [address] PCP - General Family Medicine 07/01/24 Cabrera Yadav MD #2 [facility] [address] [place] [address] Consulting Physician Urology 11/07/24
--- OUTSIDE RECORDS SUMMARY | 2025-01-16 18:59 | XMS_ITS | Encounter Summary ---
Author Organization [facility] Address [address] [place] [address] Phone Care Team Providers Care Student Counselor Name Role Phone Victoriano Reid MD Primary Care Provider [phone] Malissa Joe RN Unavailable Unavailable Malissa Joe RN Unavailable Unavailable Elva Olivares DO Primary Care Provider [phone] [place] [facility] Unavailable Cabrera Smallwood MD Unavailable [phone] Reason for Visit * Reason Comments Medication Refill Encounter Details Date Type Department Care Team (Late st Contact Info) Description 12/22/2020 Refill [facility] #2 [place] [phone] Victoriano Reid MD #1 [place] [address] Medication Refill Social History Tobacco Use Types [...] 4 months ago Acute cystitis with hematuria [facility] - Victoriano Beck MD 11 months ago Paralysis of both lower limbs (HCC) [facility] Victoriano Beck MD 1 year ago Uncontrolled type 2 diabetes mellitus with hyperglycemia (HCC) [facility] Victoriano Toledo MD 1 year ago Spinal cord compression due to malignant neoplasm metastatic to spine ([facility]) [facility] Victoriano Beck MD 1 year ago Annual visit for general adult medical examination with abnormal findings [facility] Victoriano Toledo MD Upcoming Appointments Future Appointments Tomorrow [facility] Russell, PT [facility] Tomorrow Naa Rios RN [facility] In 6 days Sharonda Carrion PTA [facility] 1 week Naa Rios RN [facility] 1 week Sharonda [facility] PTA [facility] 2 weeks Sharonda [facility] PTA [facility] In 3 weeks Naa Rios RN [facility] In 3 weeks Sharonda [place] PTA [facility] CASE SEALER - Recent and Past Visits Recent Visits Date Type Provider Dept 08/06/20 Telemedicine Victoriano Reid MD [facility] 01/22/20 Telemedicine [facility] MD [facility] 10/24/19 Office Visit Victoriano [facility] MD [facility] Showing recent visits within past 460 days with a meds authorizing provider and meeting all other requirements Future Appointments No visits were found meeting these conditions. Showing future appointments within next 90 days with a meds authorizing provider and meeting all other requirements DIE MAKER documented in this encounter Plan of Treatment Upcoming Encounters Date Type Department Care Team (Latest Contact Info) Description 01/21/2025 10:30 AM CDT Clinical Support [facility] UROLOGY #2 [place] [address] Nurse, [facility] 02/02/2025 11:00 AM CDT Appointment [facility] CT [address] [place] [address] Cabrera Yadav MD #2 [facility] [address] [place] [address] Discharge Disposition: Discharged to home or Selfcare 02/10/2025 3:00 PM CDT Appointment [facility] Mammography [address] [place] [address] Elva Olivares, DO 2 [facility] [address] [place] [address] Discharge Disposition: Discharged to home or Selfcare 02/10/2025 4:00 PM CDT Appointment [facility] Ultrasound [address] [place] [address] Elva Olivares, DO 2 [facility] [address] [place] [address] Discharge Disposition: Discharged to home or Selfcare 02/17/2025 1:40 PM CDT Hospital [facility] Periop 1 [facility] [place] [address] Cabrera Yadav MD #2 [facility] [address] [place] [address] 02/17/2025 1:40 PM CDT - 02/17/2025 3:40 PM CDT Surgery [facility] Periop 1 [facility] [place] [address] Cabrera Yadav MD #[address] [address] CYSTOSCOPY AND LITHOLAPAXY, PATIENT WILL NEED A PAUL LIFT 03/02/2025 8:40 AM CDT [facility] #2 [place] [address] Elva Olivares DO 2 [facility] [address] [address] Scheduled Procedures Name Priority Associated Diagnoses Date/Ti me CYSTOSCOPY BLADDER STONE BLADDER STONES 02/17/2025 1:40 PM CDT documented as of this encounter Visit Diagnoses Not on filedocumented in this encounter Additional Health Concerns Infection Onset Date Last Indicated Resolved Time 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 06/05/2019 04/15/2021 7:28 AM CDT Assessment Noted Time PHQ-9 Depression Total Score: 0 10/24/19 20 11:16 AM TOOL DIE MAKER documented as of this encounter Care Teams Student Counselor Relationship Specialty Start Date End Date Victoriano Reid MD PCP - General Family Medicine 06/19/19 06/29/24 Elva Olivares DO 2 [facility] [address] [place] [address] PCP - General Family Medicine 07/01/24 Malissa Joe, RN [place] Nurse Chief Environmental Commitment Officer 12/03/23 12/03/23 Malissa Joe, RN [place] Nurse Chief Environmental Commitment Officer 12/05/23 12/05/23 [place], [facility] Transit Mixer Operator Chief Environmental Commitment Officer 11/03/24 Cabrera Yadav MD #[address] [address] Consulting Physician Urology 11/07/24 documented as of this encounter
--- OUTSIDE RECORDS SUMMARY | 2025-01-16 18:59 | XMS_ITS | Encounter Summary ---
Author Organization [facility] Address [address] [place] [address] Phone Care Team Providers Care Agent Telegrapher Name Role Phone Victoriano Reid MD Primary Care Provider [phone] Malissa Joe RN Unavailable Unavailable Malissa Joe RN Unavailable Unavailable Elva Olivares DO Primary Care Provider [phone] [place] FOOD PRODUCTION SUPERVISOR Unavailable Unaabdirizaki Cabrera Dodge MD Unavailable [phone] Encounter Details Date Type Department Care Team (Late st Contact Info) Description 06/28/2022 Lab Requisition [facility] Laboratory Services 1 [place] [phone] Rafi Yun MD #1 [place] [address] Painful micturition, unspecified Social History Tobacco Use [...] 10:30 AM CDT Clinical Support [facility]IAN [facility] UROLOGY #2 [place] [address] Nurse, Ken Urology 02/02/2025 11:00 AM CDT [facility] [address] [facility] [place] [address] Cabrera Yadav MD #2 [facility] [address] [place] [address] Discharge Disposition: Discharged to home or Selfcare 02/10/2025 3:00 PM CDT [facility] Mamm[facility] 1 [place] [address] Elva Olivares, DO 2 [facility] [address] [place] [address] Discharge Disposition: Discharged to home or Selfcare 02/10/2025 4:00 PM CDT [facility] Ul[facility]ound 1 [facility] [place] [address] Elva Olivares, DO 2 [facility] [address] [place] [address] Discharge Disposition: Discharged to home or Selfcare 02/17/2025 1:40 PM CDT [facility] Periop 1 [facility] [place] [address] Cabrera Yadav MD #2 [facility] [address] [place] [address] 02/17/2025 1:40 PM CDT - 02/17/2025 3:40 PM CDT [facility] Periop 1 [facility] [place] [address] Cabrera Yadav MD #2 [facility] [address] [place] [address] CYSTOSCOPY AND LITHOLAPAXY, PATIENT WILL NEED A PAUL LIFT 03/02/2025 8:40 AM CDT Office Visit [facility] Medical Group - Family Medicine - [place] #2 [facility] [place] [address] Elva Olivares, DO 2 [facility]. [address] [place] [address] Scheduled Procedures Name Priority Associated Diagnoses Date/Ti [...] REPEAT URINE CULTURE. 06/29/2022 8:16 PM CDT [facility] Urine Non-Phlebotomy Collection / Unknown 06/28/2022 10:45 AM CDT 06/28/2022 12:42 PM CDT us Rafi Yun MD MICROBIOLOGY - GENERAL ORDERABL ES Final Result [facility] [address] [place] [address], * (ABNORMAL) URINALYSIS REFLEX IF INDICATED BY ABNORMAL RESULTS (06/28/2022 10:45 AM CDT) SPECIFIC GRAVITY 1.020 1.003 - 1.030 06/28/2022 1:04 PM CDT [facility] URINE PH 6.0 5.0 - 9.0 06/28/2022 1:04 PM CDT [facility] WBC ESTERASE 500 /uL(A) Negative 06/28/2022 1:04 PM CDT [facility] NITRITE Positive(A) Negative 06/28/2022 1:04 PM CDT [facility] PROTEIN, RANDOM URINE 100 mg/dL(A) Negative 06/28/2022 1:04 PM CDT [facility] URINE GLUCOSE, QUAL Negative Negative 06/28/2022 1:04 PM CDT [facility] URINE KETONES Negative Negative 06/28/2022 1:04 PM CDT [facility] UROBILINOGEN Normal Normal mg/dL 06/28/2022 1:04 PM CDT [facility] URINE BLOOD 250 /uL(A) Negative josefa/ul 06/28/2022 1:04 PM CDT [facility] URINALYSIS COLOR Yellow 06/28/20 22 1:04 PM CDT [facility] URINALYSIS CLARITY Very Cloudy 06/28/2022 1:04 PM CDT [facility] WBC (Urine) Packed(A) Negative, 0-5 /hpf 06/28/2022 1:04 PM CDT [facility] URINE RBC'S Packed(A) Negative, 0-2 /hpf 06/28/2022 1:04 PM CDT [facility] EPITHELIAL CELLS Negative /lpf 06/28/20 22 1:04 PM CDT [facility] BACTERIA, URINE Few(A) Negative /hpf 06/28/2022 1:04 PM CDT [facility] Urine Non-Phlebotomy Collection / Unknown 06/28/2022 10:45 AM CDT 06/28/2022 12:42 PM CDT us Rafi Yun MD URINE ORDERABLES Final Result [facility] #1 [place] [address] documented in this encounter Visit Diagnoses Diagnosis Painful micturition, unspecified documented in this encounter Additional Health Concerns Assessment Noted Time PHQ-9 Depression Total Score: 0 08/15/20 10:00 AM CDT documented as of this encounter Care Teams Agent Telegrapher Relationship Specialty Start Date End Date Victoriano Reid MD PCP - General Family Medicine 06/19/19 06/29/24 Elva Olivares DO 2 [facility]. [address] [place] [address] PCP - General Family Medicine 07/01/24 Malissa Joe, RN [place] Nurse Public Relations Sales Marketing 12/03/23 12/03/23 Malissa Joe, RN [place] Nurse Public Relations Sales Marketing 12/05/23 12/05/23 [place], FOOD PRODUCTION SUPERVISOR [place] Information Security Engineer Public Relations Sales Marketing 11/03/24 Cabrera Yadav MD #2 [facility] [address] [place] [address] Consulting Physician Urology 11/07/24 documented as of this encounter
--- OUTSIDE RECORDS SUMMARY | 2025-01-16 18:59 | XMS_ITS | Encounter Summary ---
Author Organization [facility] Address [address] [place] [address] Phone Care Team Providers Care Binder Coverstitch Name Role Phone Victoriano Reid MD Primary Care Provider [phone] Malissa Joe RN Unavailable Unavailable Malissa Joe RN Unavailable Unavailable Elva Olivares DO Primary Care Provider [phone] [place] EMBRYOLOGY PROFESSOR Unavailable Cabrera Smallwood MD Unavailable [phone] Reason for Visit * Reason Comments Medication Refill Encounter Details Date Type Department Care Team (Late st Contact Info) Description 02/26/2022 Refill [facility] - Family Medicine [facility] #2 [place] [address] Victoriano Reid MD #1 [place] [address] Medication Refill Social History Tobacco Use Types [...] Dept 01/05/22 Office Visit Nia Abbott PAC [facility] 08/15/21 Office Visit Victoriano Reid MD [facility] Showing recent visits within past 365 days and meeting all other requirements Future Appointments No visits were found meeting these conditions. Showing future appointments within next 90 days and meeting all other requirements documented in this encounter Plan of Treatment Upcoming Encounters Date Type Department Care Team (Latest Contact Info) Description 01/21/2025 10:30 AM CDT Clinical Support [facility] PHYSICIAN GROUP UROLOGY #2 [place] [address] Nurse, Ken Urology 02/02/2025 11:00 AM CDT Appointment [facility] CT 1 [place] [address] Cabrera Yadav MD #[address] [address] Discharge Disposition: Discharged to home or Selfcare 02/10/2025 3:00 PM CDT Appointment [facility] Mammography 1 [facility] [address] Elva Olivares, DO 2 [facility] [address] [place] [address] Discharge Disposition: Discharged to home or Selfcare 02/10/2025 4:00 PM CDT Appointment [facility] Ultrasound 1 [facility] [address] Elva Olivares, DO 2 [facility] [address] [place] [address] Discharge Disposition: Discharged to home or Selfcare 02/17/2025 1:40 PM CDT [facility] 1 [facility] [place] [address] Cabrera Yadav MD #2 [facility] [address] [address] 02/17/2025 1:40 PM CDT - 02/17/2025 3:40 PM CDT Surgery [facility] Periop 1 [facility] [place] [address] Cabrera Yadav MD #[address] [address] CYSTOSCOPY AND LITHOLAPAXY, PATIENT WILL NEED A PAUL LIFT 03/02/2025 8:40 AM CDT Office Visit [facility] Medical Group - Family Medicine [facility] #2 [facility] [facility] [place] [address] Elva Olivares, DO 2 [facility] [address] [place] [address] Scheduled Procedures Name Priority Associated Diagnoses Date/Ti nh CYSTOSCOPY BLADDER STONE BLADDER STONES 02/17/2025 1:40 PM CDT documented as of this encounter Visit Diagnoses Diagnosis Muscle spasm Spasm of muscle documented in this encounter Additional Health Concerns Assessment Noted Time PHQ-9 Depression Total Score: 0 08/15/20 10:00 AM CDT documented as of this encounter Care Teams Binder Coverstitch Relationship Specialty Start Date End Date Victoriano Reid MD PCP - General Family Medicine 06/19/19 06/29/24 Elva Olivares DO 2 [facility] [address] [place] [address] PCP - General Family Medicine 07/01/24 Malissa Joe, RN [place] Nurse Early Childhood Specialist 12/03/23 12/03/23 Malissa Joe RN [place] Nurse Early Childhood Specialist 12/05/23 12/05/23 Hinton, EMBRYOLOGY PROFESSOR [place] Meat Specialist Early Childhood Specialist 11/03/24 Cabrera Yadav MD #2 [facility] [address] [place] [address] Consulting Physician Urology 11/07/24 documented as of this encounter
--- OUTSIDE RECORDS SUMMARY | 2025-01-16 18:59 | XMS_ITS | Encounter Summary ---
Author Organization [facility] Address [address] [place] [address] Phone Care Team Providers Care Fundraising Consultant Name Role Phone Victoriano Reid MD Primary Care Provider [phone] Malissa Joe RN Unavailable Unavailable Malissa Joe RN Unavailable Unavailable Elva Olivares DO Primary Care Provider [phone] [place] GARBAGE TRUCK DRIVER Unavailable Unaabdirizaki Cabrera Dodeg MD Unavailable [phone] Encounter Details Date Type Department Care Team (Late st Contact Info) Description 10/22/2020 Lab Requisition [facility] Laboratory Services 1 [place] [phone] Victoriano Reid MD #1 [place] [address] Neuromuscular dysfunction of bladder, unspecified; Personal history [...] 10:30 AM CDT Clinical Support [facility]IAN GROUP UROLOGY #2 [place] [address] Nurse, Ken Urology 02/02/2025 11:00 AM CDT [facility] [address] [place] [address] Cabrera Yadav MD #2 [facility] [address] [place] [address] Discharge Disposition: Discharged to home or Selfcare 02/10/2025 3:00 PM CDT [facility] Mammography [address] [place] [address] Elva Olivares, DO 2 [facility] [address] [place] [address] Discharge Disposition: Discharged to home or Selfcare 02/10/2025 4:00 PM CDT [facility] Ultrasound [address] [place] [address] Elva Olivares, DO 2 [facility] [address] [place] [address] Discharge Disposition: Discharged to home or Selfcare 02/17/2025 1:40 PM CDT Hospital [facility] Per[facility] [address] [place] [address] Cabrera Yadav MD #2 [facility] [address] [place] [address] 02/17/2025 1:40 PM CDT - 02/17/2025 3:40 PM CDT [facility] 1 [facility] [place] [address] Cabrera Yadav MD #2 [facility], [facility] [address] [place] [address] CYSTOSCOPY AND LITHOLAPAXY, PATIENT WILL NEED A PAUL LIFT 03/02/2025 8:40 AM CDT Office Visit [facility] Medical Group - Family Medicine [facility] #2 [place] [address] Elva Olivares, DO 2 [facility]. [address] [place] [address] Scheduled Procedures Name Priority Associated Diagnoses Date/Ti me CYSTOSCOPY BLADDER STONE BLADDER STONES 02/17/2025 1:40 PM CDT documented as of this encounter Procedures Procedure Name Priority Date/Time Associated Diagnosis Comments URINALYSIS REFLEX IF INDICATED BY ABNORMAL RESULTS Routine 10/22/2020 10:45 AM OUTBOARD MOTORBOAT OPERATOR Neuromuscular dysfunction of bladder, unspecified CULTURE, URINE Routine 10/22/2020 10:45 AM OUTBOARD MOTORBOAT OPERATOR Neuromuscular dysfunction of bladder, unspecified documented in this encounter Results * CULTURE, URINE (10/22/2020 10:45 AM OUTBOARD MOTORBOAT OPERATOR) CULTURE RESULTS ACINETOBACTER CALCOACETICUS-ACI NETOBACTER BAUMANNII COMPLEX 10/24/2020 7:06 PM OUTBOARD MOTORBOAT OPERATOR [facility] CULTURE RESULTS ALSO MIXED GROWTH OF DISTAL URETHRA CONTAMINANTS. 10/24/2020 7:06 PM OUTBOARD MOTORBOAT OPERATOR [facility] Urine Non-Phlebotomy Collection / Unknown 10/22/2020 10:45 AM OUTBOARD MOTORBOAT OPERATOR 10/22/2020 11:46 AM OUTBOARD MOTORBOAT OPERATOR Narrative Organism Antibiotic Method Susceptibility Acinetobacter baumannii complex Ampicillin/sulbactam [facility] VITEK IIB <=2 mcg/ml: Susceptible Acinetobacter baumannii complex Cefepime [facility] VITEK IIB 2 mcg/ml: Susceptible Acinetobacter baumannii complex Gentamicin [facility] VITEK IIB <=1 mcg/ml: Susceptible Acinetobacter [...] MICROBIOLOGY - GENERAL ORDERABLE S Final Result [facility] [address] [place] [id number], * (ABNORMAL) URINALYSIS REFLEX IF INDICATED BY ABNORMAL RESULTS (10/22/2020 10:45 AM OUTBOARD MOTORBOAT OPERATOR) SPECIFIC GRAVITY 1.010 1.003 - 1.030 10/22/2020 1:18 PM OUTBOARD MOTORBOAT OPERATOR [facility] URINE PH 7.0 5.0 - 9.0 10/22/2020 1:18 PM OUTBOARD MOTORBOAT OPERATOR [facility] WBC ESTERASE 500 /uL(A) Negative 10/22/2020 1:18 PM OUTBOARD MOTORBOAT OPERATOR [facility] NITRITE Negative Negative 10/22/2020 1:18 PM OUTBOARD MOTORBOAT OPERATOR [facility] PROTEIN, RANDOM URINE 30 mg/dL(A) Negative 10/22/2020 1:18 PM OUTBOARD MOTORBOAT OPERATOR [facility] URINE GLUCOSE, QUAL Negative Negative 10/22/2020 1:18 PM OUTBOARD MOTORBOAT OPERATOR [facility] URINE KETONES Negative Negative 10/22/2020 1:18 PM OUTBOARD MOTORBOAT OPERATOR [facility] UROBILINOGEN Normal Normal mg/dL 10/22/2020 1:18 PM OUTBOARD MOTORBOAT OPERATOR [facility] URINE BILIRUBIN Negative Negative 1:18 PM OUTBOARD MOTORBOAT OPERATOR [facility] URINE BLOOD 150 /uL(A) Negative josefa/ul 10/22/2020 1:18 PM OUTBOARD MOTORBOAT OPERATOR [facility] URINALYSIS COLOR Yellow 10/22/2020 1:18 PM OUTBOARD MOTORBOAT OPERATOR [facility] URINALYSIS CLARITY Slightly Cloudy 10/22/2020 1:18 PM OUTBOARD MOTORBOAT OPERATOR [facility] WBC (Urine) 6-10(A) Negative, 0-5 /hpf 10/22/2020 1:18 PM OUTBOARD MOTORBOAT OPERATOR [facility] URINE RBC'S 3-5(A) Negative, 0-2 /hpf 10/22/2020 1:18 PM OUTBOARD MOTORBOAT OPERATOR [facility] EPITHELIAL CELLS Occasional /lpf 10/22/2020 1:18 PM OUTBOARD MOTORBOAT OPERATOR [facility] BACTERIA, URINE Many(A) Negative /hpf 10/22/2020 1:18 PM OUTBOARD MOTORBOAT OPERATOR [facility] CRYSTALS Triple phosphate 10/22/2020 1:18 PM OUTBOARD MOTORBOAT OPERATOR [facility] Urine Non-Phlebotomy Collection / Unknown 10/22/2020 10:45 AM OUTBOARD MOTORBOAT OPERATOR 10/22/2020 11:46 AM OUTBOARD MOTORBOAT OPERATOR us Victoriano Reid MD URINE ORDERABLES Final Result [facility] #[address] [place] [address] documented in this encounter Visit Diagnoses Diagnosis Neuromuscular dysfunction of bladder, unspecified Personal history of urinary (tract) infections documented in this encounter Additional Health Concerns Infection Onset Date Last Indicated Resolved Time 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. [address] [place] [address] PCP - General Family Medicine 07/01/24 Malissa Joe, RN [place] Nurse Explosives Handler 12/03/23 12/03/23 Malissa Joe RN [place] Nurse Explosives Handler 12/05/23 12/05/23 H[place], [facility] Funeral Service Manager Explosives Handler 11/03/24 Cabrera Yadav MD #2 [facility], [facility] [address] [place] [address] Consulting Physician Urology 11/07/24 documented as of this encounter
--- OUTSIDE RECORDS SUMMARY | 2025-01-16 18:59 | XMS_ITS | Encounter Summary ---
Author Organization [facility] Address [address] [place] [address] Phone Care Team Providers Care Forming Tube Selector Name Role Phone Victoriano Reid MD Primary Care Provider [phone] Malissa Joe RN Unavailable Unavailable Malissa Joe RN Unavailable Unavailable Elva Olivares DO Primary Care Provider [phone] CONSTRUCTION INSPECTOR Unavailable Unaabdirizaki Cabrera Dodge MD Unavailable [phone] Encounter Details Date Type Department Care Team (Late st Contact Info) Description 03/18/2021 Lab Requisition [facility] Laboratory Services 1 [place] [phone] Victoriano Reid MD #1 [place] [address] Neuromuscular dysfunction of bladder, unspecified; Acute cystitis [...] Description 01/21/2025 10:30 AM CDT Clinical Support [facility] PHYSICIAN GROUP UROLOGY #2 [place] [address] Nurse, Ken Urology 02/02/2025 11:00 AM CDT [facility] [address] [facility] [place] [address] Cabrera Yadav MD #2 [facility] [address] [place] [address] Discharge Disposition: Discharged to home or Selfcare 02/10/2025 3:00 PM CDT [facility] Mammography 1 [place] [address] Elva Olivares, DO 2 [facility]. [address] [place] [address] Discharge Disposition: Discharged to home or Selfcare 02/10/2025 4:00 PM CDT [facility] Ultrasound 1 [facility] [place] [address] Elav Olivares, DO 2 [facility] [address] [place] [address] Discharge Disposition: Discharged to home or Selfcare 02/17/2025 1:40 PM CDT Hospital [facility] 1 [facility] [place] [address] Cabrera Yadav MD #2 [facility] [address] [place] [address] 02/17/2025 1:40 PM CDT - 02/17/2025 3:40 PM CDT [facility] Periop 1 [facility] [place] [address] Cabrera Yadav MD #2 [facility] [address] [place] [address] CYSTOSCOPY AND LITHOLAPAXY, PATIENT WILL NEED A PAUL LIFT 03/02/2025 8:40 AM CDT Office Visit [facility] Medical Group - Family Medicine [facility] #2 [place] [address] Elva Olivares, DO 2 [facility] [address] [address] [address] Scheduled Procedures Name Priority Associated Diagnoses Date/Ti [...] DISTAL URETHRAL CONTAMINANTS 03/19/2021 8:12 PM CDT [facility]rine Non-Phlebotomy Collection / Unknown 03/18/2021 1:41 PM CDT us Victoriano Reid MD MICROBIOLOGY - GENERAL ORDERABLE S Final Result [facility] [address] [place] [address], * (ABNORMAL) URINALYSIS REFLEX IF INDICATED BY ABNORMAL RESULTS (03/18/2021 2:20 PM CDT) SPECIFIC GRAVITY 1.010 1.003 - 1.030 03/18/2021 2:20 PM CDT [facility] URINE PH 8.0 5.0 - 9.0 03/18/2021 2:20 PM CDT [facility] WBC ESTERASE 500 /uL(A) Negative 03/18/2021 2:20 PM CDT [facility] NITRITE Positive(A) Negative 03/18/2021 2:20 PM CDT [facility] PROTEIN, RANDOM URINE Negative Negative 03/18/2021 2:20 PM CDT [facility] URINE GLUCOSE, QUAL Negative Negative 03/18/2021 2:20 PM CDT [facility] URINE KETONES Negative Negative 03/18/2021 2:20 PM CDT [facility] UROBILINOGEN Normal Normal mg/dL 03/18/2021 2:20 PM CDT [facility] URINE BILIRUBIN Negative Negative 2:20 PM CDT [facility] URINE BLOOD 150 /uL(A) Negative josefa/ul 03/18/2021 2:20 PM CDT [facility] URINALYSIS COLOR Straw 03/18/2021 2:20 PM CDT [facility] URINALYSIS CLARITY Very Cloudy 03/18/2021 2:20 PM CDT [facility] WBC (Urine) 11-20(A) Negative, 0-5 /hpf 03/18/2021 2:20 PM CDT [facility] URINE RBC'S 6-10(A) Negative, 0-2 /hpf 03/18/2021 2:20 PM CDT [facility] EPITHELIAL CELLS Small amount /lpf 03/18/2021 2:20 PM CDT [facility] BACTERIA, URINE Moderate(A) Negative /hpf 03/18/2021 2:20 PM CDT [facility] URINE MUCOUS Many 03/18/2021 2:20 PM CDT [facility] CRYSTALS Amorphous phosphates 03/18/2021 2:20 PM CDT [facility] Urine Non-Phlebotomy Collection / Unknown 03/18/2021 1:41 PM CDT us Victoriano Reid MD URINE ORDERABLES Final Result [facility] #1 [place] [address] documented in this encounter Visit Diagnoses Diagnosis Neuromuscular dysfunction of bladder, unspecified Acute cystitis without hematuria Acute cystitis Sepsis, unspecified organism (HCC) documented in this encounter Additional Health Concerns Infection Onset Date Last Indicated Resolved Time 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 06/05/2019 04/15/2021 7:28 AM CDT Assessment Noted Time PHQ-9 Depression Total Score: 0 10/24/19 20 11:16 AM TIRE BLADDER MAKER documented as of this encounter Care Teams Forming Tube Selector Relationship Specialty Start Date End Date Victoriano Reid MD PCP - General Family Medicine 06/19/19 06/29/24 Elva Olivares DO [address] [address] PCP - General Family Medicine 07/01/24 Malissa Joe, RN [place] Nurse Evaluation Assistant 12/03/23 12/03/23 Malissa Joe RN [place] Nurse Evaluation Assistant 12/05/23 12/05/23 Hinton, HIGHWAY CONSTRUCTION INSPECTOR [place] Transit Man Evaluation Assistant 11/03/24 Cabrera Yadav MD #2 [place] [address] Consulting Physician Urology 11/07/24 documented as of this encounter
--- OUTSIDE RECORDS SUMMARY | 2025-01-16 18:59 | XMS_ITS | Encounter Summary ---
Author Organization [facility] Address [address] [place] [address] Phone Care Team Providers Care Small Parts Assembler Name Role Phone EliseElva jensen Becky GARCIA Primary Care Provider [phone] Cabrera Yadav MD Unavailable [phone] Reason for Visit * Reason Comments Medication Refill Encounter Details Date Type Department Care Team (Late st Contact Info) Description 01/14/2025 Refill [facility] Medical Group - Family Medicine [facility] #2 [place] [address] Victoriano Reid MD #1 [place] [address] Medication Refill Social History Tobacco Use Types Packs/Day Years Used Date Smoking Tobacco: Every Day Cigarettes 2 15 Smokeless Tobacco: Never Alcohol Use Standard Drinks/Week Comments Not Currently 0 (1 standard drink = 0.6 oz pur e alcohol) [facility] Utilities Answer Date Recorded In the past 12 months has [employer], gas, oil, or water company threatened to [...] often do you attend chur ch or orthodox services? Never 04/15/2024 Do you belong to any clubs o r organizations such as yazidism groups, unions, fraternal or athletic groups, or [...] Total Score - Questions 1-9 0 12/14 [facility] - Occupational Stress Questionnaire Answer Date Recorded [...] in a fci (including now)? No 12/20/2023 Housing Stability Vital Sign Answer Saleem e Recorded In the last 12 months, was t here a time when you were not able to pay the mortgage or rent on time? No 04/15/2024 Number of Times Moved in the Last Year Not on fi le 04/15/2024 At any time in the past 12 m [facility], were you homeless or living in a fci (including now)? No 04/15/2024 Education Answer Date [...] Telephone Encounter - Camilla Hauser RN - 01/15/2025 8:53 AM CDT Medication failed the protocol, provider to review and approve the medication order if appropriate. Requested Prescriptions Pending Prescriptions Disp Refills baclofen (LIORESAL) 10 MG Tablet [Pharmacy Med Name: BACLOFEN 10MG TABLETS] 90 Tablet 0 Sig: TAKE 1 TABLET BY MOUTH THREE TIMES DAILY NEEDED FOR MUSCLE SPASMS Not Delegated - Muscle Relaxants Protocol Failed - 01/15/2025 8:53 AM Failed - This refill cannot be delegated Failed - Not delegated, patient not between 1 and 65 years of age Passed - Visit with relevant provider in past 12 months or upcoming 90 days Recent Visits Date Type Provider Dept 07/01/24 Office Visit Elva Olivares DO [facility] 04/15/24 Office Visit Singh Myrick APRN, COTTON DISPATCHER [facility] Showing recent visits within past 365 days and meeting all other requirements Future Appointments Date Type Provider Dept 03/02/25 Appointment Elva Olivares DO [facility] Showing future appointments within next 90 days and meeting all other requirements documented in this encounter Plan of Treatment Upcoming Encounters Date Type Department Care Team (Latest Contact Info) Description 01/21/2025 10:30 AM CDT Clinical Support [facility] UR[facility] #2 [place] [address] NurseKen Urology 02/02/2025 11:00 AM CDT Appointment [facility] CT 1 [place] [address] Cabrera Yadav MD #[address] [address] Discharge Disposition: Discharged to home or Selfcare 02/10/2025 3:00 PM CDT Appointment [facility] Mammography 1 [place] [address] Elva Olivares, DO 2 [facility] [address] [place] [address] Discharge Disposition: Discharged to home or Selfcare 02/10/2025 4:00 PM CDT Appointment [facility] Ultrasound 1 [place] [address] Elva Olivares, DO 2 [facility] [address] [place] [address] Discharge Disposition: Discharged to home or Selfcare 02/17/2025 1:40 PM CDT [facility] 1 [facility] [place] [address] Cabrera Yadav MD #[address] [address] 02/17/2025 1:40 PM CDT - 02/17/2025 3:40 PM CDT [facility] 1 [facility] [place] [address] Cabrera Yadav MD #2 [facility] [address] [address] CYSTOSCOPY AND LITHOLAPAXY, PATIENT WILL NEED A PAUL LIFT 03/02/2025 8:40 AM CDT Office Visit [facility] Medical Group - Family Medicine [facility] #2 [place] [address] Elva Olivares DO [address] [address] Scheduled Procedures Name Priority Associated Diagnoses Date/Ti me CYSTOSCOPY BLADDER STONE BLADDER STONES 02/17/2025 1:40 PM CDT documented as of this encounter Visit Diagnoses Not on filedocumented in this encounter Additional Health Concerns Assessment Noted Time PHQ-9 Depression Total Score: 0 08/15/20 21 10:00 AM CDT documented as of this encounter Care Teams Small Parts Assembler Relationship Specialty Start Date End Date Elva Olivares DO 2 [facility] [address] [address] PCP - General Family Medicine 07/01/24 Cabrera Yadav MD [address] [address] Consulting Physician Urology 11/07/24 documented as of this encounter
--- OUTSIDE RECORDS SUMMARY | 2025-01-16 18:59 | XMS_ITS | Encounter Summary ---
Author Organization [facility] Address [address] [place] [address] Phone Care Team Providers Care Reading Intervention Teacher Name Role Phone Victoriano Reid MD Primary Care Provider [phone] Malissa Joe RN Unavailable Unavailable Malissa Joe RN Unavailable Unavailable Elva Olivares DO Primary Care Provider [phone] [place] YEAST DISTILLER Unavailable Cabrera Smallwood MD Unavailable [phone] Reason for Visit * Reason Comments Medication Refill Encounter Details Date Type Department Care Team (Late st Contact Info) Description 10/05/2020 Refill [facility] Medical [facility] - Family Medicine [facility] #2 [place] [address] Victoriano Reid MD #1 [place] [address] Medication Refill Social History Tobacco Use Types [...] Visits Recent Outpatient Visits 2 months ago [facility] Victoriano Toledo MD 8 months ago Paralysis of both lower limbs (HCC) [facility] - Victoriano Beck MD 11 months ago Uncontrolled type 2 diabetes mellitus with hyperglycemia (HCC) [facility] Victoriano Toledo MD 1 year ago 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) [facility] - Victoriano Beck MD 1 year ago Annual visit for general adult medical examination with abnormal findings [facility] Victoriano Toledo MD Upcoming Appointments Future Appointments In 6 days Naa Rios RN [facility] In 6 days Sharonda Carrion PTA [facility] In 1 week Sharonda Carrion, FRANCIS [facility] In 2 weeks Sharonda Carrion, FRANCIS [facility] In 2 weeks Naa Rios RN [facility] In 2 weeks Lorraine Russell PT [facility] In 3 weeks Sharonda Carrion, FRANCIS [facility] In 3 weeks Sharonda Carrion, FRANCIS [facility] In 4 weeks Sharonda Carrion PTA [facility] In 1 month Naa Rios RN [facility] In 1 month Sharonda Carrion, CERTIFIED PHARMACY TECH [facility] In 1 month Sharonda Carrion, CERTIFIED PHARMACY TECH [facility] In 1 month Lorraine Russell, PT [facility] In 1 month Lorraine Russell, PT [facility] In 1 month Naa Riso RN [facility] STEEL CHIPPER - Recent and Past Visits Recent Visits Date Type Provider Dept 08/06/20 Telemedicine Victoriano Reid MD [facility] 01/22/20 Telemedicine Victoriano Reid MD [facility] 10/24/19 Office Visit Victoriano Reid MD [facility] 07/17/19 [facility] Visit [facility] Showing recent visits within past 460 days with a meds authorizing provider and meeting all other requirements Future Appointments No visits were found meeting these conditions. Showing future appointments within next 90 days with a meds authorizing provider and meeting all other requirements [employer]STATE BUS DISPATCHER documented in this encounter Plan of Treatment Upcoming Encounters Date Type Department Care Team (Latest Contact Info) Description 01/21/2025 10:30 AM CDT Clinical Support [facility] #2 [place] [address] Nurse, Ken Urology 02/02/2025 11:00 AM CDT [facility] [address] [place] [address] Cabrera Yadav MD #2 [facility] [address] [place] [address] Discharge Disposition: Discharged to home or Selfcare 02/10/2025 3:00 PM CDT [facility] 1 [place] [address] Elva Olivares, DO 2 [facility] [address] [place] [address] Discharge Disposition: Discharged to home or Selfcare 02/10/2025 4:00 PM CDT [facility] 1 [facility] [place] [address] Elva Olivares, DO 2 [facility] [address] [place] [address] Discharge Disposition: Discharged to home or Selfcare 02/17/2025 1:40 PM CDT [facility] 1 [place] [address] Cabrera Yadav MD #[address] [address] 02/17/2025 1:40 PM CDT - 02/17/2025 3:40 PM CDT [facility] 1 [facility] [place] [address] Cabrera Yadav MD #[address] [address] CYSTOSCOPY AND LITHOLAPAXY, PATIENT WILL NEED A PAUL LIFT 03/02/2025 8:40 AM CDT Office Visit [facility] Medical [facility] - Family Medicine [facility] #2 [place] [address] Elva Olivares, DO 2 [facility] [address] [place] [address] Scheduled Procedures Name Priority Associated Diagnoses Date/Ti [...] Total Score: 0 10/24/19 20 11:16 AM INTERSTATE BUS DISPATCHER documented as of this encounter Care Teams Reading Intervention Teacher Relationship Specialty Start Date End Date Victoriano Reid MD PCP - General Family Medicine 06/19/19 06/29/24 Elva Olivares DO 2 [facility] [place] [facility]. [address] [place] [address] PCP - General Family Medicine 07/01/24 Malissa Joe, RN [place] Nurse Studio Set Up Worker 12/03/23 12/03/23 Malissa Joe RN [place] Nurse Studio Set Up Worker 12/05/23 12/05/23 [place], YEAST DISTILLER [place] [employer] Records Technology Teacher Studio Set Up Worker 11/03/24 Cabrera Yadav MD #2 [facility] [address] [place] [address] Consulting Physician Urology 11/07/24 documented as of this encounter
[2025-01-16 19:00] VITALS: BP 142/80; PULSE 70; RESP 18; TEMP 36.6; O2SAT 98
--- NOTE | 2025-01-16 19:01 | PC.NURSE ---
suprapubic catheter replaced by Dr. Jackson. 16fr armijo cath inserted without difficulty
== END 2025-01-16 20:21 | disposition home or self-care (01) ==
LOC: ANHED 18:55
PROVIDERS: Emergency Provider Emergency Medicine; PCP Student in an Organized Health Care Education/Training Program
DX: T83.090A Other mechanical complication of cystostomy catheter, initial encounter (principal); I10 Essential (primary) hypertension; E11.9 Type 2 diabetes mellitus without complications; Z87.01 Personal history of pneumonia (recurrent); Z87.891 Personal history of nicotine dependence; Y84.6 Urinary catheterization as the cause of abnormal reaction of the patient, or of later complication, without mention of misadventure at the time of the procedure
CPT/HCPCS: 51702; 51705; 99283

== ENCOUNTER 2025-01-26 16:55 | Emergency (ER) | payer MEDICARE, MEDICAID, SELFPAY ==
[2025-01-26 17:01] VITALS: BP 162/87; PULSE 65; RESP 18; TEMP 37; O2SAT 97
--- NOTE | 2025-01-26 17:40 | ED_ITS ---
HPI - Female Genitourinary General Chief complaint: Urogenital-Female Stated complaint: clogged catheter Source: patient Mode of arrival: ambulatory Limitations: no limitations History of Present Illness HPI Narrative: This is a 69-year-old female with PMH of HTN, diabetes mellitus, paraplegia, suprapubic catheter placement who presents to the ED chief complaint of possible clogged catheter. Patient states the urinary catheter output has been greatly decreased over the past day or so. States that she normally has this catheter changed every 2 weeks and sees urologist in [place]. States that she feels this may be due to UTI. Denies abdominal pain, fevers, chills, nausea, vomiting. Denies hematuria. States blood sugars been well controlled with diet, last A1c in the 5-6 range. Related Data Allergies Allergy/AdvReac Type Severity Reaction Status Date / Time codeine Allergy Unknown rash Verified 12/04/24 17:55 Review of Systems Review of Systems: All systems as dictated in [facility] Past Medical History Medical History (Updated 01/26/25 @ 18:22 by Kit Cabral PA-C) Suprapubic catheter Reis catheter in place Pneumonia HTN (hypertension) Diabetes mellitus Surgical History Surgical History (Updated 01/16/25 @ 19:03 by Jonh Jackson MD) History of back surgery Hx of appendectomy Social History Social History Smoking status: Former smoker Exam Narrative: GENERAL: Well-appearing, well-nourished, and in no acute distress. HEAD: Normocephalic, atraumatic. EYES: PERRLA and EOMI. ENT: Nares clear, no rhinorrhea or epistaxis. Mucous membranes moist. Oropharynx without tonsillar hypertrophy exudate or other lesions. NECK: Supple. No adenopathy or masses. CHEST: No respiratory distress. Clear to auscultation. No wheezes rales or rhonchi HEART: Regular rate and rhythm. No murmur heard. Normal peripheral pulses. ABDOMEN: Suprapubic catheter in good position. No surrounding skin changes. No tenderness to the abdomen are on the catheter site. The catheter is draining dark yellow urine into catheter bag. Soft, nontender, nondistended, normal active bowel sounds. MSK: Normal range of motion. No edema. SKIN: Warm, dry, no rash. NEURO: Alert and oriented x4. No focal deficits. PSYCH: Normal mood and affect. Course Vital Signs Vital signs: Vital Signs Temperature 98.6 F 01/26/25 17:01 Pulse Rate 65 01/26/25 17:01 Respiratory Rate 18 01/26/25 17:01 Blood Pressure 162/87 H 01/26/25 17:01 Pulse Oximetry 97 01/26/25 17:01 Oxygen Delivery Room Air 01/26/25 17:01 Temperature 98.6 F 01/26/25 17:01 Pulse Rate 65 01/26/25 17:01 Respiratory Rate 18 01/26/25 17:01 Blood Pressure 162/87 H 01/26/25 17:01 Pulse Oximetry 97 01/26/25 17:01 Oxygen Delivery Room Air 01/26/25 17:01 Procedures Catheter Insertion (Urinary) Urinary Catheter 1: Date of insertion: 01/26/25 Time of insertion: 18:01 Reason for placing: Yes (Suprapubic catheter change) Reason for placing indwelling catheter: Urinary obstruction Bladder scan/ultrasound used before catheterization: No Estimated amount of urine (mLs): 700 Antiseptic solution prep: Povidone-Iodine Topical anesthesia used: No Catheter type/location: Suprapubic Size (Taiwanese): 16 Catheter balloon size (mL): 10 Catheter balloon amount: 10 Results: successfully catheterized-immediate flow Procedure performed: without complications MDM - Female Genitourinary MDM Narrative Medical decision making narrative: This is a 69-year-old female who presents to the ED for chief complaint of possible clogged suprapubic catheter. She has suprapubic pressure but no other symptoms of infection. Vitals are normal. Exam remarkable for the above. There is slow flow of the original 16 Taiwanese suprapubic catheter. We did obtain a urinalysis which shows New Reis catheter 16 Taiwanese placed a complication. Inflated with 10 cc saline. Patient will be discharged in stable condition. Supportive measures discussed and return precautions given. Patient is understanding and agreeable with plan for discharge with PCP follow-up. Lab Data Labs: Lab Results 01/26/25 Range/Units 18:02 Urine Color Yellow (Yellow) Urine Appearance Clear (Clear) Urine pH 7.0 (5.0-9.0) Ur Specific [place] 1.005 (1.001-1.035) Urine Protein Negative (Negative) mg/dL Urine Glucose (UA) Negative (Negative) mg/dL Urine Ketones Negative (Negative) mg/dL Ur Blood (Man) 1+ H (Negative) Urine Nitrate Positive H (Negative) Urine Bilirubin Negative (Negative) Urine Urobilinogen 0.2 (<2.0) mg/dL Leukocyte Esterase Rfl 1+ H (Negative) EVETTE/UL Urine RBC 6-10 H (0-2) /hpf Urine WBC 6-10 H (0-3) /hpf Ur Squamous Epith Cells None seen (Few) /hpf Urine Bacteria 4+ H /hpf Urine Casts 0-2 Discharge Plan Discharge Clinical Impression: Suprapubic catheter dysfunction, Urinary tract infection Patient Disposition: Home Condition: Stable Instructions: Antibiotic Form Additional Instructions: Your evaluated today for possible clogged catheter. The catheter was changed with a 16F Reis. Please take antibiotics for UTI seen on urinalysis. Follow- up closely with the urologist If you have any new or worsening symptoms please return to the ER for further evaluation. Patient Language: Martiniquais Prescriptions: New cephalexin 500 mg capsule 500 mg PO Q8H 7 Days Qty: 21 0RF No Action sulfamethoxazole-trimethoprim [Bactrim DS] 800-160 mg tablet 1 tablet PO Q12H Qty: 14 0RF Follow-up/Referrals: Elise,Elva Cha DO [Primary Care Provider] - Time of Disposition: 18:23
--- OUTSIDE RECORDS SUMMARY | 2025-01-26 17:59 | XMS_ITS | Encounter Summary ---
Author Organization [facility] Address [address] [place] [address] Phone Care Team Providers Care Combination Presser Name Role Phone Victoriano Reid MD Primary Care Provider [phone] Malissa Joe RN Unavailable Unavailable Malissa Joe RN Unavailable Unavailable Elva Olivares DO Primary Care Provider [phone] [place] DIRECTOR OF MEDICAL STAFF SERVICES Unavailable Cabrera Smallwood MD Unavailable [phone] Reason for Visit * Reason Comments Medication Refill Encounter Details Date Type Department Care Team (Late st Contact Info) Description 09/05/2021 Refill [facility] Medical Group - Family Medicine [facility] #2 [place] [address] Victoriano Reid MD #1 [place] [address] Medication Refill Social History Tobacco Use Types [...] Department Care Team (Latest Contact Info) Description 01/28/2025 10:30 AM CDT Clinical Support [facility] #2 [place] [address] Nurse, [place] [facility] 02/02/2025 11:00 AM CDT [facility] 1 [place] [address] Cabrera Yadav MD #[address] [address] Discharge Disposition: Discharged to home or Selfcare 02/10/2025 3:00 PM CDT [facility] 1 [place] [address] Elva Olivares, DO 2 [facility] [address] [place] [address] Discharge Disposition: Discharged to home or Selfcare 02/10/2025 4:00 PM CDT [facility] 1 [place] [address] Elva Olivares, DO 2 [facility] [address] [place] [address] Discharge Disposition: Discharged to home or Selfcare 02/17/2025 1:40 PM CDT Hospital [facility] 1 [facility] [place] [address] Cabrera Yadav MD [address] [facility] [address] [place] [address] 02/17/2025 1:40 PM CDT - 02/17/2025 3:10 PM CDT [facility] 1 [facility] [place] [address] Cabrera Yadav MD #[address] [address] CYSTOSCOPY AND LITHOLAPAXY, PATIENT WILL NEED A PAUL LIFT 03/02/2025 8:40 AM CDT Office Visit [facility] Medical Group - Family [facility] #2 [place] [address] Elva Olivares DO [address] [address] Scheduled Procedures Name Priority Associated Diagnoses Date/Ti la CYSTOSCOPY BLADDER STONE BLADDER STONES 02/17/2025 1:40 PM CDT documented as of this encounter Visit Diagnoses Diagnosis Muscle spasm Spasm of muscle documented in this encounter Additional Health Concerns Assessment Noted Time PHQ-9 Depression Total Score: 0 08/15/20 21 10:00 AM CDT documented as of this encounter Care Teams Combination Presser Relationship Specialty Start Date End Date Victoriano Reid MD PCP - General Family Medicine 06/19/19 06/29/24 Elva Olivares DO 2 [facility] [address] [place] [address] PCP - General Family Medicine 07/01/24 Malissa Joe, RN [place] Nurse Cloth Seconds Sorter 12/03/23 12/03/23 Malissa Joe, RN [place] Nurse Cloth Seconds Sorter 12/05/23 12/05/23 [place], DIRECTOR OF MEDICAL STAFF [facility] Council Member Cloth Seconds Sorter 11/03/24 Cabrera Yadav MD #[address] [address] Consulting Physician Urology 11/07/24 documented as of this encounter
--- OUTSIDE RECORDS SUMMARY | 2025-01-26 17:59 | XMS_ITS | Encounter Summary ---
Author Organization [facility] Address [address] [place] [address] Phone Care Team Providers Care Anvilsmith Name Role Phone Victoriano Reid MD Primary Care Provider [phone] Elva Olivares DO Primary Care Provider [phone] [place] [facility] Unavailable Cabrera Smallwood MD Unavailable [phone] Reason for Visit * Reason Comments Medication Refill Encounter Details Date Type Department Care Team (Late Contact Info) Description 01/19/[address] [facility] Medical Group - Family Medicine [facility] #[address] [place] [address] Victoriano Reid MD #1 [place] [address] Medication Refill Social History Tobacco Use Types Packs/Day Years Used Date Smoking Tobacco: Every Day Cigarettes Smokeless Tobacco: Never Alcohol Use Standard Drinks/Week Comments Not Currently 0 (1 standard drink = 0.6 oz pur e alcohol) [facility] Utilities Answer Date Recorded In the [...] often do you attend chur ch or sikh services? Never 12/20/2023 Do you belong to any clubs o r organizations such as orthodoxy groups, unions, fraternal or athletic groups, or [...] place to sleep or slept in a fdc (including now)? No 12/20/2023 Education Answer Date [...] MD Osmariela Rogers 10/23/23 Telemedicine Miriam Prasad BOTTOM SAW OPERATOR, PULMONOLOGIST/INTENSIVIST [facility] Ken 03/29/23 Office Visit Victoriano Reid MD [facility] Ken Showing recent visits within past 365 days and meeting all other requirements Future Appointments No visits were found meeting these conditions. Showing future appointments within next 90 days and meeting all other requirements documented in this encounter Plan of Treatment Upcoming Encounters Date Type Department Care Team (Latest Contact Info) Description 01/28/2025 10:30 AM CDT Clinical Support [facility] #[address] [place] [address] Nurse, [place] [facility] 02/02/2025 11:00 AM CDT [facility] [address] [place] [address] Cabrera Yadav MD #2 [facility] [address] [place] [address] Discharge Disposition: Discharged to home or Selfcare 02/10/2025 3:00 PM CDT [facility] M[facility] 1 [place] [address] Elva Olivares, DO 2 [facility] [address] [place] [address] Discharge Disposition: Discharged to home or Selfcare 02/10/2025 4:[address] [facility] Ultrasound 1 [place] [address] Elva Olivares, DO 2 [facility] [address] [place] [address] Discharge Disposition: Discharged to home or Selfcare 02/17/2025 1:40 PM CDT Hospital Encounter [facility] Periop 1 [place] [address] Cabrera Yadav MD #2 [facility] [address] [place] [address] 02/17/2025 1:40 PM CDT - 02/17/2025 3:10 PM CDT [facility] 1 [facility] [place] [address] Cabrera Yadav MD #2 [facility] [address] [place] [address] CYSTOSCOPY AND LITHOLAPAXY, PATIENT WILL NEED A PAUL LIFT 03/02/2025 8:40 AM CDT Office Visit [facility] Medical Group - Family Medicine [facility] #[address] [place] [address] Elva Olivares DO 2 [facility]. [address] [place] [address] Scheduled Procedures Name Priority Associated Diagnoses Date/Ti de CYSTOSCOPY BLADDER STONE BLADDER STONES 02/17/2025 1:40 PM CDT documented as of this encounter Visit Diagnoses Not on filedocumented in this encounter Additional Health Concerns Assessment Noted Time PHQ-9 Depression Total Score: 0 08/15/20 21 10:00 AM CDT documented as of this encounter Care Teams Anvilsmith Relationship Specialty Start Date End Date Victoriano Reid MD PCP - General Family Medicine 06/19/19 06/29/24 Elva Olivares DO 2 [facility] [address] [place] [address] PCP - General Family Medicine 07/01/24 [place], HAMPER MAKER [place] [employer] Reader Mailroom Clerk 11/03/24 Cabrera Yadav MD #2 [facility], [facility] [address] [place] [address] Consulting Physician Urology 11/07/24 documented as of this encounter
--- OUTSIDE RECORDS SUMMARY | 2025-01-26 17:59 | XMS_ITS | Encounter Summary ---
Author Organization [facility] Address [address] [place] [address] Phone Care Team Providers Care Automobile Painter Name Role Phone Victoriano Reid MD Primary Care Provider [phone] Elva Olivares DO Primary Care Provider [phone] [facility] Unavailable Cabrera Smallwood MD Unavailable [phone] Reason for Visit * Reason Comments Medication Refill Encounter Details Date Type Department Care Team (Late Contact Info) Description 04/18/2024 Refill [facility] Medical Group - Family Medicine [facility] #2 [place] [address] Victoriano Reid MD #1 [place] [address] Medication Refill Social History Tobacco Use Types Packs/Day Years Used Date Smoking Tobacco: Every Day Cigarettes 2 15 Smokeless Tobacco: Never Alcohol Use Standard Drinks/Week Comments Not Currently 0 (1 standard drink = 0.6 oz pur e alcohol) [facility] Utilities Answer Date Recorded In the past 12 months has [employer] electric, gas, oil, or water company threatened [...] often do you attend chur ch or samaritan services? Never 04/15/2024 Do you belong to any clubs o r organizations such as druze groups, unions, fraternal or athletic groups, or [...] in a alf (including now)? No 12/20/2023 Housing Stability Vital Sign Answer Saleem e Recorded In the last 12 months, was t here a time when you were not able to pay the mortgage or rent on time? No 04/15/2024 Number of Times Moved in the Last Year Not on fi le 04/15/2024 At any time in the past 12 m [facility], were you homeless or living in a alf (including now)? No 04/15/2024 Education Answer Date [...] Description 01/28/2025 10:30 AM CDT Clinical Support [facility] #2 [place] [address] NurseKen Urology 02/02/2025 11:00 AM CDT [facility] [address] [place] [address] Cabrera Yadav MD #[address] [address] Discharge Disposition: Discharged to home or Selfcare 02/10/2025 3:00 PM CDT [facility] 1 [facility] [place] [address] Elva Olivares, DO 2 [facility] [address] [place] [address] Discharge Disposition: Discharged to home or Selfcare 02/10/2025 4:00 PM CDT Appointment [facility] Ultrasound 1 [facility] [place] [address] Elva Olivares, DO 2 [facility] [address] [address] Discharge Disposition: Discharged to home or Selfcare 02/17/2025 1:40 PM CDT [facility] [address] [place] [address] Cabrera Yadav MD #[address] [address] 02/17/2025 1:40 PM CDT - 02/17/2025 3:10 PM CDT [facility] [address] [place] [address] Cabrera Yadav MD #[address] [address] CYSTOSCOPY AND LITHOLAPAXY, PATIENT WILL NEED A PAUL LIFT 03/02/2025 8:40 AM CDT Office Visit [facility] Medical Group - Family [facility] #[address] [place] [address] Elva Olivares DO 2 [facility] [address] [place] [address] Scheduled Procedures Name Priority Associated Diagnoses Date/Ti nd CYSTOSCOPY BLADDER STONE BLADDER STONES 02/17/2025 1:40 PM CDT documented as of this encounter Visit Diagnoses Not on filedocumented in this encounter Additional Health Concerns Assessment Noted Time PHQ-9 Depression Total Score: 0 08/15/20 21 10:00 AM CDT documented as of this encounter Care Teams Automobile Painter Relationship Specialty Start Date End Date Victoriano Reid MD PCP - General Family Medicine 06/19/19 06/29/24 Elva Olivares DO 2 [facility] [address] [place] [address] PCP - General Family Medicine 07/01/24 H[place], [facility] Hardwood Sawyer Nurse Specialist 11/03/24 Cabrera Yadav MD #2 [address] [address] Consulting Physician Urology 11/07/24 documented as of this encounter
--- OUTSIDE RECORDS SUMMARY | 2025-01-26 17:59 | XMS_ITS | Encounter Summary ---
Author Organization [facility] Address [address] [place] [address] Phone Care Team Providers Care Claims Account Manager Name Role Phone Victoriano Reid MD Primary Care Provider [phone] Elva Olivares DO Primary Care Provider [phone] H[place] [facility] Unavailable Cabrera Smallwood MD Unavailable [phone] Reason for Visit * Reason Comments Medication Refill Encounter Details Date Type Department Care Team (Late Contact Info) Description 02/23/2024 Refill [facility] Medical Group - Family Medicine [facility] #2 [place] [address] Victoriano Reid MD #1 [place] [address] Medication Refill Social History Tobacco Use Types Packs/Day Years Used Date Smoking Tobacco: Every Day Cigarettes Smokeless Tobacco: Never Alcohol Use Standard Drinks/Week Comments Not Currently 0 (1 standard drink = 0.6 oz pur e alcohol) [facility] Utilities Answer Date Recorded In the past [...] often do you attend chur ch or yazidism services? Never 12/20/2023 Do you belong to [...] Total Score - Questions 1-9 0 12/14 [facility] - [...] place to sleep or slept in a intermediate (including now)? No 12/20/2023 Education Answer Date [...] Requested Prescriptions Pending Prescriptions Disp Refills nystatin 006291 UNIT/GM Powder [Pharmacy Med Name: NYSTOP TOP [...] Osmariela Rogers 10/23/23 Telemedicine Miriam Prasad APRN, COIL CONNECTOR [facility] Ken 03/29/23 Office Visit Victoriano Reid MD [facility] Ken Showing recent visits within past 365 days and meeting all other requirements Future Appointments No visits were found meeting these conditions. Showing future appointments within next 90 days and meeting all other requirements documented in this encounter Plan of Treatment Upcoming Encounters Date Type Department Care Team (Latest Contact Info) Description 01/28/2025 10:30 AM CDT Clinical Support [facility] #2 [place] [address] Nurse, [place] Urology 02/02/2025 11:00 AM CD[facility] [address] [place] [address] Cabrera Yadav MD #2 [facility] [address] [place] [address] Discharge Disposition: Discharged to home or Selfcare 02/10/2025 3:00 PM CDT [facility] 1 [place] [address] Elva Olivares, DO 2 [facility] [address] [place] [address] Discharge Disposition: Discharged to home or Selfcare 02/10/2025 4:00 PM CDT Appointment [facility] Ultrasound 1 [place] [address] Elva Olivares, DO 2 [facility] [address] [place] [address] Discharge Disposition: Discharged to home or Selfcare 02/17/2025 1:40 PM CDT [facility] 1 [place] [address] Cabrera Yadav MD #2 [facility] [address] [place] [address] 02/17/2025 1:40 PM CDT - 02/17/2025 3:10 PM CDT [facility] [address] [place] [address] Cabrera Yadav MD #2 [facility] [address] [place] [address] CYSTOSCOPY AND LITHOLAPAXY, PATIENT WILL NEED A PAUL LIFT 03/02/2025 8:40 AM CDT Office Visit [facility] Medical Group - Family Medicine - [place] #2 [place] [address] Elva Olivares DO 2 [facility] [address] [place] [address] Scheduled Procedures Name Priority Associated Diagnoses Date/Ti me CYSTOSCOPY BLADDER STONE BLADDER STONES 02/17/2025 1:40 PM CDT documented as of this encounter Visit Diagnoses Diagnosis Skin yeast infection Candidiasis of skin and nails documented in this encounter Additional Health Concerns Assessment Noted Time PHQ-9 Depression Total Score: 0 08/15/20 21 10:00 AM CDT documented as of this encounter Care Teams Claims Account Manager Relationship Specialty Start Date End Date Victoriano Reid MD PCP - General Family Medicine 06/19/19 06/29/24 Elva Olivares DO 2 [facility] [address] [place] [address] PCP - General Family Medicine 07/01/24 [place], CRIME SCENE TECHNICIAN [place] Director Of Occupational Therapy Adult Nurse Practitioner 11/03/24 Cabrera Yadav MD #2 [facility] [address] [place] [address] Consulting Physician Urology 11/07/24 documented as of this encounter
--- OUTSIDE RECORDS SUMMARY | 2025-01-26 17:59 | XMS_ITS | Encounter Summary ---
Author Organization [facility] Address [address] [place] [address] Phone Care Team Providers Care Bedspread Inspector Name Role Phone Victoriano Reid MD Primary Care Provider [phone] Elva Olivares DO Primary Care Provider [phone] H[place] [facility] Unavailable Cabrera Smallwood MD Unavailable [phone] Reason for Visit * Reason Comments Medication Refill Encounter Details Date Type Department Care Team (Late Contact Info) Description 12/20/2023 Refill [facility] Medical Group - Family Medicine [facility] #2 [place] [address] Victoriano Reid MD #1 [place] [address] Medication Refill Social History Tobacco Use Types Packs/Day Years Used Date Smoking Tobacco: Every Day Cigarettes Smokeless Tobacco: Never Alcohol Use Standard Drinks/Week Comments Not Currently 0 (1 standard drink = 0.6 oz pur e alcohol) [facility] Utilities Answer Date Recorded In [...] often do you attend chur ch or baptist services? Never 12/20/2023 Do you belong to any clubs o r organizations such as anabaptism groups, unions, fraternal or athletic groups, or [...] Total Score - Questions 1-9 0 12/14 [facility] ional [facility] - Occupational [...] a group home (including now)? No 12/20/2023 Education Answer [...] of Assessment Author 0 12/20/2023 11:52 AM SPECIFICATION MANAGER [email or web address], [employer] Background * Within the last year, have you been humiliated or emotionally abused in other ways by your partner or ex-partner? Answer Date of Assessment Author No 12/20/2023 11:52 AM SPECIFICATION MANAGER [email or web address] Background * Within the last year, have you been afraid of your partner or ex-partner? Answer Date of Assessment Author No 12/20/2023 11:52 AM SPECIFICATION MANAGER [employer], System Background * Within the last year, have you been raped or forced to have any kind of sexual activity by your partner or ex-partner? Answer Date of Assessment Author No 12/20/2023 11:52 AM SPECIFICATION MANAGER [employer], System Background * Within the last year, have you been kicked, hit, slapped, or otherwise physically hurt by your partner or ex-partner? Answer Date of Assessment Author No 12/20/2023 11:52 AM SPECIFICATION MANAGER [employer], System Background * Q1: How often do you have a drink containing alcohol? Answer Date of Assessment Author Never 12/20/2023 11:52 AM SPECIFICATION MANAGER [employer] System Background * Q2: How many drinks containing alcohol do you have on a typical day when you are drinking? Answer Date of Assessment Author Patient does not drink 12/20/2023 11:52 AM SPECIFICATION MANAGER [employer] System Background * Q3: How often do you have six or more drinks on one occasion? Answer Date of Assessment Author Never 12/20/2023 11:52 AM SPECIFICATION MANAGER [employer] System Background documented as of this encounter Miscellaneous Notes * Telephone Encounter - Adelaida Medina RN - 12/20/2023 8:43 AM SPECIFICATION MANAGER Medication failed the protocol, provider to [...] Provider Dept 12/06/23 Telemedicine Victoriano Reid MD [facility] Ken 10/23/23 Telemedicine Miriam Prasad APRN, [facility] 03/29/23 Office Visit Victoriano Reid MD [facility] [place] Showing recent visits within past 365 days and meeting all other requirements Future Appointments Date Type Provider Dept 12/21/23 Appointment Victoriano Reid MD [facility] Ken Showing future appointments within next 90 days and meeting all other requirements IFICATION MANAGER documented in this encounter Plan of Treatment Upcoming Encounters Date Type Department Care Team (Latest Contact Info) Description 01/28/2025 10:30 AM CDT Clinical Support [facility] PHYSICIAN [facility] UROLOGY #2 [place] [address] NurseKen Urology 02/02/2025 11:00 AM CDT [facility] [address] [place] [address] Cabrera Yadav MD #2 [facility] [address] [place] [address] Discharge Disposition: Discharged to home or Selfcare 02/10/2025 3:00 PM CDT Appointment [facility] Mammography 1 [facility] [place] [address] Elva Olivares, DO 2 [facility] [address] [place] [address] Discharge Disposition: Discharged to home or Selfcare 02/10/2025 4:00 PM CDT Appointment [facility] Ultrasound 1 [facility] [place] [address] Elva Olivares, DO 2 [facility] [address] [place] [address] Discharge Disposition: Discharged to home or Selfcare 02/17/2025 1:40 PM CDT [facility] 1 [facility] [place] [address] Cabrera Yadav MD #2 [facility] [address] [address] 02/17/2025 1:40 PM CDT - 02/17/2025 3:10 PM CDT Surgery [facility] Periop [address] [place] [address] Cabrera Yadav MD #2 [address] [place] [address] CYSTOSCOPY AND LITHOLAPAXY, PATIENT WILL NEED A PAUL LIFT 03/02/2025 8:40 AM CDT [facility] #[address] [place] [address] Elva [address] DO [address] [facility] [facility] [address] [place] [address] Scheduled Procedures Name Priority Associated Diagnoses Date/Ti [...] documented as of this encounter Care Teams Bedspread Inspector Relationship Specialty Start Date End Date Victoriano Reid MD PCP - General Family Medicine 06/19/19 06/29/24 Elva Olivares DO 2 [facility] [address] [place] [address] PCP - General Family Medicine 07/01/24 H[place], [facility] Epic Cadence Analyst Color Television Console Monitor 11/03/24 Cabrera Yadav MD #[address] [address] Consulting Physician Urology 11/07/24 documented as of this encounter
--- OUTSIDE RECORDS SUMMARY | 2025-01-26 17:59 | XMS_ITS | Encounter Summary ---
Author Organization [facility] Address [address] [place] [address] Phone Care Team Providers Care Multimedia Services Manager Name Role Phone Victoriano Reid MD Primary Care Provider [phone] Malissa Joe RN Unavailable Unavailable Malissa Joe RN Unavailable Unavailable Elva Olivares DO Primary Care Provider [phone] [place] SOCIAL MEDIA COORDINATOR Unavailable Unaabdirizaki Cabrera Dodge MD Unavailable [phone] Encounter Details Date Type Department Care Team (Late st Contact Info) Description 05/19/2020 [facility] Services [address] [place] [id number] Victoriano Reid MD #1 [place] [address] Urinary tract infection, site not specified Social [...] 10:30 AM CDT Clinical Support [facility] PHYSICIAN GROUP UROLOGY #[address] [place] [address] Nurse, Ken Urology 02/02/2025 11:00 AM CDT Appointment [facility] [address] [place] [address] Cabrera Yadav MD [address], [facility] [address] [place] [address] Discharge Disposition: Discharged to home or Selfcare 02/10/2025 3:00 PM CDT Appointment [facility] Mammography 1 [facility] [place] [address] Elva Olivares, DO 2 [facility] [address] [place] [address] Discharge Disposition: Discharged to home or Selfcare 02/10/2025 4:00 PM CDT Appointment [facility] Ultrasound [address] [place] [address] Elva Olivares, DO 2 [facility] [address] [place] [address] Discharge Disposition: Discharged to home or Selfcare 02/17/2025 1:40 PM CDT Hospital En[facility] Periop [address] [place] [address] Cabrera Yadav MD #[address], [facility] [address] [place] [address] 02/17/2025 1:40 PM CDT - 02/17/2025 3:10 PM CDT Surgery [facility] Periop [address] [place] [address] Cabrera Yadav MD #[address] [facility] [address] [place] [address] CYSTOSCOPY AND LITHOLAPAXY, PATIENT WILL NEED A PAUL LIFT 03/02/2025 8:40 AM CDT Office Visit [facility] Medical Group - Family Medicine [facility] [address] [place] [address] Elva Olivares, DO 2 [facility]. [address] [place] [address] Scheduled Procedures Name Priority Associated Diagnoses Date/Ti [...] RESULTS CITROBACTER AMALONATICUS 05/23/2020 9:23 AM CDT [facility] RESULTS ESCHERICHIA COLI 05/23/2020 9:23 AM CDT [facility] Urine Non-Phlebotomy Collection / Unknown 05/19/2020 2:15 PM CDT 05/19/2020 4:30 PM CDT Narrative Organism Antibiotic Method Susceptibility Citrobacter amalonaticus Cefazolin [facility] IIB >=64 mcg/ml: Resistant Citrobacter amalonaticus Ceftriaxone [facility] IIB <=1 mcg/ml: Susceptible Citrobacter amalonaticus [...] - GENERAL ORDERABLE S Final Result [facility] [address] [facility] [place] [address], * (ABNORMAL) URINALYSIS REFLEX IF INDICATED BY ABNORMAL RESULTS (05/19/2020 2:15 PM CDT) [facility] Signature SPECIFIC GRAVITY 1.010 1.003 - 1.030 05/19/2020 4:46 PM CDT [facility] URINE PH 8.0 5.0 - 9.0 05/19/2020 4:46 PM CDT [facility] WBC ESTERASE 500 /uL(A) Negative 05/19/2020 4:46 PM CDT [facility] NITRITE Positive(A) Negative 05/19/2020 4:46 PM CDT [facility] PROTEIN, RANDOM URINE 15 mg/dL(A) Negative 05/19/2020 4:46 PM CDT [facility] URINE GLUCOSE, QUAL Negative Negative 05/19/2020 4:46 PM CDT [facility] URINE KETONES Negative Negative 05/19/2020 4:46 PM CDT [facility] UROBILINOGEN Normal Normal mg/dL 05/19/2020 4:46 PM CDT [facility] URINE BILIRUBIN Negative Negative 0 4:46 PM CDT [facility] URINE BLOOD 150 /uL(A) Negative josefa/ul 05/19/2020 4:46 PM CDT [facility] URINALYSIS COLOR Dark Yellow 020 4:46 PM CDT [facility] URINALYSIS CLARITY Very Cloudy 05/19/2020 4:46 PM CDT [facility] WBC (Urine) 51-150(A) Negative, 0-5 /hpf 05/19/2020 4:46 PM CDT [facility] URINE RBC'S 6-10(A) Negative, 0-2 /hpf 05/19/2020 4:46 PM CDT [facility] EPITHELIAL CELLS Small amount /lpf 2019 4:46 PM CDT [facility] BACTERIA, URINE Packed(A) Negative /hpf 05/19/2020 4:46 PM CDT [facility] Urine Non-Phlebotomy Collection / Unknown 05/19/2020 2:15 PM CDT 05/19/2020 4:30 PM CDT Victoriano Reid MD URINE ORDERABLES Final Result [facility] #1 [facility] [address] [place] [address] documented in this encounter Visit Diagnoses Diagnosis Urinary tract infection, site not specified documented in this encounter Additional Health Concerns Infection Onset Date Last Indicated Resolved Time 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 [address] [place] [address] PCP - General Family Medicine 07/01/24 Malissa Joe, RN [place] Nurse Apiarist 12/03/23 12/03/23 Malissa Joe, RN [place] Nurse Apiarist 12/05/23 12/05/23 [place], SOCIAL MEDIA COORDINATOR [place] Skating Carhop Apiarist 11/03/24 Cabrera Yadav MD #2 [facility] [address] [place] [address] Consulting Physician Urology 11/07/24 documented as of this encounter
--- OUTSIDE RECORDS SUMMARY | 2025-01-26 17:59 | XMS_ITS | Encounter Summary ---
Author Organization [facility] Address [address] [place] [address] Phone Care Team Providers Care Buffing Wheel Raker Name Role Phone Victoriano Reid MD Primary Care Provider [phone] Malissa Joe RN Unavailable Unavailable Malissa Joe RN Unavailable Unavailable Elva Olivares DO Primary Care Provider [phone] [place] BOTTOM LINER Unavailable Unaabdirizaki Cabrera Dodge MD Unavailable [phone] Encounter Details Date Type Department Care Team (Late st Contact Info) Description 10/04/2021 Lab Requisition [facility] Laboratory Services [address] [place] [id number] Victoriano Reid MD #1 [place] [address] Urinary tract infection, site not specified Social [...] Description 01/28/2025 10:30 AM CDT Clinical Support [facility] PHYSICIAN GROUP UROLOGY #[address] [place] [address] Nurse, Ken Urology 02/02/2025 11:00 AM CDT [facility] [address] [facility] [place] [address] Cabrera Yadav MD #[address] [facility] [address] [place] [address] Discharge Disposition: Discharged to home or Selfcare 02/10/2025 3:00 PM CDT [facility] [address] [place] [address] Elva Olivares, DO 2 [facility] [address] [place] [address] Discharge Disposition: Discharged to home or Selfcare 02/10/2025 4:00 PM CDT [facility] Ultrasound 1 [facility] [place] [address] Elva Olivares, DO 2 [facility] [address] [place] [address] Discharge Disposition: Discharged to home or Selfcare 02/17/2025 1:40 PM CDT Hospital En[facility] Periop 1 [facility] [place] [address] Cabrera Yadav MD #2 [facility] [address] [place] [address] 02/17/2025 1:40 PM CDT - 02/17/2025 3:10 PM CDT Surgery [facility] Periop 1 [facility] [place] [address] Cabrera Yadav MD #2 [facility] [address] [place] [address] CYSTOSCOPY AND LITHOLAPAXY, PATIENT WILL NEED A PAUL LIFT 03/02/2025 8:40 AM CDT Office Visit [facility] Medical Group - Family Medicine - [place] [address] [place] [address] Elva Olivares, DO 2 [facility]. [address] [place] [address] Scheduled Procedures Name Priority Associated Diagnoses Date/Ti me CYSTOSCOPY BLADDER STONE BLADDER STONES 02/17/2025 1:40 PM CDT documented as of this encounter Procedures Procedure Name Priority Date/Time Associated Diagnosis Comments URINALYSIS REFLEX IF INDICATED BY ABNORMAL RESULTS Routine 10/04/2021 2:30 AM RESTAURANT MANAGER Urinary tract infection, site not specified CULTURE, URINE Routine 10/04/2021 2:30 AM RESTAURANT MANAGER Urinary tract infection, site not specified documented in this encounter Results * CULTURE, URINE (10/04/2021 2:30 AM RESTAURANT MANAGER) CULTURE RESULTS MIXED GROWTH OF 3 OR MORE ORGANISMS, PROBABLE COLLECTION CONTAMINATION, SUGGEST REPEAT URINE CULTURE. 10/05/2021 6:24 PM RESTAURANT MANAGER [facility] Urine Non-Phlebotomy Collection / Unknown 10/04/2021 2:30 AM RESTAURANT MANAGER 10/04/2021 4:51 PM RESTAURANT MANAGER us Victoriano Reid MD MICROBIOLOGY - GENERAL ORDERABLE S Final Result [facility] [address] [place] [address], * (ABNORMAL) URINALYSIS REFLEX IF INDICATED BY ABNORMAL RESULTS (10/04/2021 2:30 AM RESTAURANT MANAGER) SPECIFIC GRAVITY 1.015 1.003 - 1.030 10/04/2021 5:12 PM RESTAURANT MANAGER [facility] URINE PH 8.0 5.0 - 9.0 10/04/2021 5:12 PM RESTAURANT MANAGER [facility] WBC ESTERASE 500 /uL(A) Negative 10/04/2021 5:12 PM [facility] NITRITE Positive(A) Negative 10/04/2021 5:12 PM [facility] PROTEIN, RANDOM URINE 100 mg/dL(A) Negative 10/04/2021 5:12 PM [facility] URINE GLUCOSE, QUAL Negative Negative 10/04/2021 5:12 PM RESTAURANT MANAGER [facility] URINE KETONES Negative Negative 10/04/2021 5:12 PM RESTAURANT MANAGER [facility] UROBILINOGEN Normal Normal mg/dL 10/04/2021 5:12 PM [facility] URINE BLOOD 250 /uL(A) Negative josefa/ul 10/04/2021 5:12 PM [facility] URINALYSIS COLOR Yasmine 10/04/20 5:12 PM [facility] URINALYSIS CLARITY Very Cloudy 10/04/2021 5:12 PM [facility] WBC (Urine) Packed(A) Negative, 0-5 /hpf 10/04/2021 5:12 PM [facility] URINE RBC'S Packed(A) Negative, 0-2 /hpf 10/04/2021 5:12 PM [facility] EPITHELIAL CELLS Small amount /lpf 2020 5:12 PM [facility] BACTERIA, URINE Packed(A) Negative /hpf 10/04/2021 5:12 PM [facility] Urine Non-Phlebotomy Collection / Unknown 10/04/2021 2:30 AM RESTAURANT MANAGER 10/04/2021 4:51 PM RESTAURANT MANAGER Victoriano Reid MD URINE ORDERABLES Final Result [facility] #1 [place] [address] documented in this encounter Visit Diagnoses Diagnosis Urinary tract infection, site not specified documented in this encounter Additional Health Concerns Assessment Noted Time PHQ-9 Depression Total Score: 0 08/15/20 21 10:00 AM CDT documented as of this encounter Care Teams Buffing Wheel Raker Relationship Specialty Start Date End Date Victoriano Reid MD PCP - General Family Medicine 06/19/19 06/29/24 Elva Olivares DO 2 [facility]. [address] [place] [address] PCP - General Family Medicine 07/01/24 Malissa Joe, RN [place] Nurse Food Service Cashier 12/03/23 12/03/23 Malissa Joe, RN [place] Nurse Food Service Cashier 12/05/23 12/05/23 [place], BOTTOM LINER [place] Associate Manager Affiliate Marketing Food Service Cashier 11/03/24 Cabrera Yadav MD #[address] [facility] [address] [place] [address] Consulting Physician Urology 11/07/24 documented as of this encounter
--- OUTSIDE RECORDS SUMMARY | 2025-01-26 17:59 | XMS_ITS | Encounter Summary ---
Author Organization [facility] Address [address] [place] [address] Phone Care Team Providers Care Plant Operator Name Role Phone Victoriano Reid MD Primary Care Provider [phone] Malissa Joe RN Unavailable Unavailable Malissa Joe RN Unavailable Unavailable Elva Olivares DO Primary Care Provider [phone] [place] WEIGHT CHECKER Unavailable Unaabdirizaki Cabrera Dodge MD Unavailable [phone] Encounter Details Date Type Department Care Team (Late st Contact Info) Description 10/17/2022 Lab Requisition [facility] Laboratory Services [address] [place] [id number] Victoriano Reid MD [address] [place] [address] Social History Tobacco Use Types Packs/Day Years [...] Coronavirus/COVID-19? No / Unsure 09/19/2022 9:13 AM OUTBOUND CALL CENTER REPRESENTATIVE documented as of this encounter Plan of Treatment Upcoming Encounters Date Type Department Care Team (Latest Contact Info) Description 01/28/2025 10:30 AM CDT Clinical Support [facility] UROLOGY #[address] [place] [address] Nurse, [facility] 02/02/2025 11:00 AM CDT Appointment [facility] [address] [place] [address] Cabrera Yadav MD #[address] [address] Discharge Disposition: Discharged to home or Selfcare 02/10/2025 3:00 PM CDT Appointment [facility] Mammography [address] [place] [address] Elva Olivares, DO 2 [facility] [address] [place] [address] Discharge Disposition: Discharged to home or Selfcare 02/10/2025 4:00 PM CDT Appointment [facility] Ultrasound [address] [place] [address] Elva Olivares, DO 2 [facility] [address] [place] [address] Discharge Disposition: Discharged to home or Selfcare 02/17/2025 1:40 PM CDT Hospital Encounter [facility] Periop [address] [place] [address] Cabrera Yadav MD #2 [facility] [address] [place] [address] 02/17/2025 1:40 PM CDT - 02/17/2025 3:10 PM CDT Surgery [facility] Periop 1 [facility] [place] [address] Cabrera Yadav MD #2 [facility] [address] [place] [address] CYSTOSCOPY AND LITHOLAPAXY, PATIENT WILL NEED A PAUL LIFT 03/02/2025 8:40 AM CDT Office Visit [facility] - Family Medicine - [facility] [address] [place] [address] Elva Olivares, DO [address] [address] Scheduled Procedures Name Priority Associated Diagnoses Date/Ti me CYSTOSCOPY BLADDER STONE BLADDER STONES 02/17/2025 1:40 PM CDT documented as of this encounter Procedures Procedure Name Priority Date/Time Associated Diagnosis Comments VITAMIN D, 25 HYDROXY TOTAL Routine 10/17/2022 11:44 AM OUTBOUND CALL CENTER REPRESENTATIVE HEMOGLOBIN A1C W/ ESTIMATED GLUCOSE Routine 10/17/2022 11:44 AM OUTBOUND CALL CENTER REPRESENTATIVE CBC WITH AUTO DIFFERENTIAL Routine 10/17/2022 11:44 AM OUTBOUND CALL CENTER REPRESENTATIVE VITAMIN B12 Routine 10/17/2022 11:44 AM OUTBOUND CALL CENTER REPRESENTATIVE UR MICROALBUMIN/CREATINI NE RATIO RANDOM Routine 10/17/2022 11:44 AM OUTBOUND CALL CENTER REPRESENTATIVE THYROXINE (T4) TOTAL Routine 10/17/2022 11:44 AM OUTBOUND CALL CENTER REPRESENTATIVE THYROID STIMULATING HORMONE (TSH) Routine 10/17/2022 11:44 AM OUTBOUND CALL CENTER REPRESENTATIVE LIPID PANEL Routine 10/17/2022 11:44 AM OUTBOUND CALL CENTER REPRESENTATIVE CMP (COMPREHENSIVE METABOLIC PANEL) Routine 10/17/2022 11:44 AM OUTBOUND CALL CENTER REPRESENTATIVE COMPLETE BLOOD COUNT (CBC) WITH DIFF Routine 10/17/2022 11:44 AM OUTBOUND CALL CENTER REPRESENTATIVE documented in this encounter Results * (ABNORMAL) CBC WITH AUTO DIFFERENTIAL (10/17/2022 11:44 AM OUTBOUND CALL CENTER REPRESENTATIVE) [facility] WBC 9.55 4.00 - 12.00 10(3)/mcL 10/17/2022 1:35 PM OUTBOUND CALL CENTER REPRESENTATIVE [facility] RBC 4.47 3.80 - 5.30 10(6)/mcL 10/17/2022 1:35 PM OUTBOUND CALL CENTER REPRESENTATIVE [facility] HEMOGLOBIN (HGB) 15.0 12.0 - 15.8 g/dL 10/17/2022 1:35 PM OUTBOUND CALL CENTER REPRESENTATIVE [facility] HEMATOCRIT (HCT) 45.0 36.0 - 47.0 % 10/17/2022 1:35 PM OUTBOUND CALL CENTER REPRESENTATIVE [facility] MCV 100.7(H) 82.0 - 96.0 fL 10/17/2022 1:35 PM OUTBOUND CALL CENTER REPRESENTATIVE [facility] MCH 33.6 26.0 - 34.0 pg 10/17/2022 1:35 PM OUTBOUND CALL CENTER REPRESENTATIVE [facility] MCHC 33.3 31.0 - 36.0 g/dL 10/17/2022 1:35 PM OUTBOUND CALL CENTER REPRESENTATIVE [facility] PLATELET COUNT 164 140 - 440 10(3)/mcL 10/17/2022 1:35 PM OUTBOUND CALL CENTER REPRESENTATIVE [facility] RDW 14.3 11.8 - 15.5 % 10/17/2022 1:35 PM OUTBOUND CALL CENTER REPRESENTATIVE [facility] MPV 11.9 9.7 - 12.4 fL 10/17/2022 1:35 PM OUTBOUND CALL CENTER REPRESENTATIVE [facility] NEUTROPHILS 51.6 47.0 - 73.0 % 10/17/2022 1:35 PM OUTBOUND CALL CENTER REPRESENTATIVE [facility] LYMPHOCYTES 37.1 18.0 - 42.0 % 10/17/2022 1:35 PM OUTBOUND CALL CENTER REPRESENTATIVE [facility] MONOCYTES 6.8 4.0 - 12.0 % 10/17/2022 1:35 PM OUTBOUND CALL CENTER REPRESENTATIVE [facility] EOSINOPHILS 3.5 0.0 - 5.0 % 10/17/2022 1:35 PM OUTBOUND CALL CENTER REPRESENTATIVE [facility] BASOPHILS 1.0 0.0 - 1.0 % 10/17/2022 1:35 PM OUTBOUND CALL CENTER REPRESENTATIVE [facility] ABSOLUTE NEUTROPHILS 4.93 1.60 - 7.70 10(3)/[facility] 10/17/2022 1:35 PM OUTBOUND CALL CENTER REPRESENTATIVE [facility] ABSOLUTE LYMPHOCYTES 3.54(H) 1.30 - 3.20 10(3)/[facility] 10/17/2022 1:35 PM OUTBOUND CALL CENTER REPRESENTATIVE [facility] ABSOLUTE MONOCYTES 0.65 0.20 - 1.00 10(3)/[facility] 10/17/2022 1:35 PM OUTBOUND CALL CENTER REPRESENTATIVE [facility] ABSOLUTE EOSINOPHIL 0.33 0.00 - 0.40 10(3)/[facility] 10/17/2022 1:35 PM OUTBOUND CALL CENTER REPRESENTATIVE [facility] ABSOLUTE BASOPHILS 0.10 0.00 - 0.10 10(3)/[facility] 10/17/2022 1:35 PM [facility] NRBC PER 100 WBC 0 10/17/19 1:35 PM [facility] Blood No Phlebotomy Charged / Unknown 10/17/2022 11:44 AM OUTBOUND CALL CENTER REPRESENTATIVE 10/17/2022 1:31 PM OUTBOUND CALL CENTER REPRESENTATIVE us Victoriano Reid MD HEMATOLOGY ORDERABLES Final Resu lt [facility] [address] [place] [address] * UR MICROALBUMIN/CREATININE RATIO RANDOM (10/17/2022 11:44 AM OUTBOUND CALL CENTER REPRESENTATIVE) [facility] RAN UR MICROALBUMIN <=1.20 <=2.00 mg/dL 10/17/2022 2:35 PM OUTBOUND CALL CENTER REPRESENTATIVE [facility] CREATININE URINE 63.5 28.0 - 217.0 mg/dL 10/17/2022 2:35 PM OUTBOUND CALL CENTER REPRESENTATIVE [facility] ALB/CREAT RATIO 2:35 PM OUTBOUND CALL CENTER REPRESENTATIVE [facility] Comment:Unable to calculate Urine Non-Phlebotomy Collection / Unknown 10/17/2022 11:44 AM OUTBOUND CALL CENTER REPRESENTATIVE 10/17/2022 1:31 PM OUTBOUND CALL CENTER REPRESENTATIVE us Victoriano Reid MD URINE ORDERABLES Final Result Performing Organization Address City/[facility]/ZIP Co de Phone Number [facility] [address] [place] [address] * THYROID STIMULATING HORMONE (TSH) (10/17/2022 11:44 AM OUTBOUND CALL CENTER REPRESENTATIVE) [facility] TSH 2.760 0.270 - 4.200 mIU/L 10/17/2022 2:33 PM OUTBOUND CALL CENTER REPRESENTATIVE [facility] Blood No Phlebotomy Charged / Unknown 10/17/2022 11:44 AM OUTBOUND CALL CENTER REPRESENTATIVE 10/17/2022 1:31 PM OUTBOUND CALL CENTER REPRESENTATIVE us Victoriano Reid MD CHEMISTRY ORDERABLES Final Resul t Performing Organization Address City/[facility]/ZIP Co de Phone Number [facility] [address] [place] [address] * (ABNORMAL) HEMOGLOBIN A1C W/ ESTIMATED GLUCOSE (10/17/2022 11:44 AM OUTBOUND CALL CENTER REPRESENTATIVE) [facility] HGB-A1C 6.3(H) 4.0 - 6.0 % 10/17/2022 2:17 PM OUTBOUND CALL CENTER REPRESENTATIVE [facility] Est Average Glucose 134.1 mg/dL 10/17/2022 2:17 PM OUTBOUND CALL CENTER REPRESENTATIVE [facility] Blood No Phlebotomy Charged / Unknown 10/17/2022 11:44 AM OUTBOUND CALL CENTER REPRESENTATIVE 10/17/2022 1:31 PM OUTBOUND CALL CENTER REPRESENTATIVE Narrative [facility] - 10/17/2022 2:17 PM OUTBOUND CALL CENTER REPRESENTATIVE HEMOGLOBIN A1C: DIABETIC PATIENTS: WELL-CONTROLLED: 6.2 - 7.0 INTERMEDIATE WELL-CONTROLLED: 7.0 - 9.0 POORLY-CONTROLLED: >9.0 Victoriano Reid MD CHEMISTRY ORDERABLES Final Resul t Performing Organization Address City/[facility] Co de Phone Number [facility] [address] [place] [address] * THYROXINE (T4) TOTAL (10/17/2022 11:44 AM OUTBOUND CALL CENTER REPRESENTATIVE) T4 9.2 4.5 - 12.0 mcg/dL 10/17/2022 2:33 PM OUTBOUND CALL CENTER REPRESENTATIVE [facility] Blood No Phlebotomy Charged / Unknown 10/17/2022 11:44 AM OUTBOUND CALL CENTER REPRESENTATIVE 10/17/2022 1:31 PM OUTBOUND CALL CENTER REPRESENTATIVE us Victoriano Reid MD CHEMISTRY ORDERABLES Final Resul t Performing Organization Address [facility] Co de Phone Number [facility] [address] [place] [address] * VITAMIN D, 25 HYDROXY TOTAL (10/17/2022 11:44 AM OUTBOUND CALL CENTER REPRESENTATIVE) VITAMIN D, 25 HYDROX 67 >=30 ng/mL 10/17/2022 2:35 PM OUTBOUND CALL CENTER REPRESENTATIVE [facility] Blood No Phlebotomy Charged / Unknown 10/17/2022 11:44 AM OUTBOUND CALL CENTER REPRESENTATIVE 10/17/2022 1:31 PM OUTBOUND CALL CENTER REPRESENTATIVE Narrative [facility] - 10/17/2022 2:35 PM OUTBOUND CALL CENTER REPRESENTATIVE Published reference ranges for Vitamin D vary depending on time and place and method of testing, and on patient's age, sex, ethnicity and levels of other measured analytes such as parathormone, calcium and phosphorus. The result should be evaluated in conjunction with clinical findings and suspicions. [employer] and Endocrine Clinical Practice Guidelines: Status Vitamin D levels (ng/mL) Deficient <=20 At risk of inadequacy 21-29 Sufficient 30-100 Centers of Disease Control and Prevention Guidelines: Status Vitamin D levels (ng/mL) Deficient <13 At risk of inadequacy 13-19 Sufficient 20-50 Possibly harmful >50 References: [employer], 2010 Dietary reference intakes for calcium and vitamin D. [place]: The National Academies Press. Nkechi M, Jasmin N, Nicholas TOLEDO, et al., Evaluation, treatment, and prevention of Vitamin D deficiency: an Endocrinology Clinical Practice Guideline. JCEM 2011 96: 7 0384-9157. Lawson A, Josue C, Glo D, et al., Vitamin D Status: [place], 4750-1639, [facility] data brief, no. 59, MD [place]: National Center for Health Statistics. 2011. Victoriano Reid MD CHEMISTRY ORDERABLES Final Resul t Performing Organization Address City/[facility]/ZIP Co de Phone Number [facility] [address] [place] [address] * VITAMIN B12 (10/17/2022 11:44 AM OUTBOUND CALL CENTER REPRESENTATIVE) VITAMIN B12 383 243 - 894 pg/mL 10/17/2022 2:34 PM OUTBOUND CALL CENTER REPRESENTATIVE [facility] Blood No Phlebotomy Charged / Unknown 10/17/2022 11:44 AM OUTBOUND CALL CENTER REPRESENTATIVE 10/17/2022 1:31 PM OUTBOUND CALL CENTER REPRESENTATIVE Victoriano Reid MD CHEMISTRY ORDERABLES Final Resul t Performing Organization Address City/[facility]/ZIP Co de Phone Number [facility] [address] [place] [address] * LIPID PANEL (10/17/2022 11:44 AM OUTBOUND CALL CENTER REPRESENTATIVE) CHOLESTEROL 150 <=200 mg/dL 10/17/2022 2:33 PM OUTBOUND CALL CENTER REPRESENTATIVE [facility] TRIGLYCERIDES 114 <150 mg/dL 10/17/2022 2:33 PM OUTBOUND CALL CENTER REPRESENTATIVE [facility] HDL CHOLESTEROL 40.5 >40 mg/dL 2:33 PM OUTBOUND CALL CENTER REPRESENTATIVE [facility] LDL 87 5 - 130 mg/dL 10/17/2022 2:33 PM OUTBOUND CALL CENTER REPRESENTATIVE [facility] VLDL 23 5 - 55 mg/dL 10/17/2022 2:33 PM OUTBOUND CALL CENTER REPRESENTATIVE [facility] CHOL/HDL RATIO 3.7 0.0 - 4.4 10/17/2022 2:33 PM OUTBOUND CALL CENTER REPRESENTATIVE [facility] NON-HDL CHOLESTEROL 109.5 <130 mg/dL 10/17/2022 2:33 PM OUTBOUND CALL CENTER REPRESENTATIVE [facility] Blood No Phlebotomy Charged / Unknown 10/17/2022 11:44 AM OUTBOUND CALL CENTER REPRESENTATIVE 10/17/2022 1:31 PM OUTBOUND CALL CENTER REPRESENTATIVE us Victoriano Reid MD CHEMISTRY ORDERABLES Final Resul t [facility] [address] [place] [address] * (ABNORMAL) CMP (COMPREHENSIVE METABOLIC PANEL) (10/17/2022 11:44 AM OUTBOUND CALL CENTER REPRESENTATIVE) SODIUM 140 136 - 144 mmol/L 10/17/2022 2:33 PM OUTBOUND CALL CENTER REPRESENTATIVE [facility] POTASSIUM 4.3 3.5 - 5.1 mmol/L 10/17/2022 2:33 PM [facility] CHLORIDE 104 100 - 110 mmol/L 10/17/2022 2:33 PM OUTBOUND CALL CENTER REPRESENTATIVE [facility] CO2, VENOUS 25 22 - 32 mmol/L 10/17/2022 2:33 PM OUTBOUND CALL CENTER REPRESENTATIVE [facility] ANION GAP 15.3 8.0 - 20.0 mmol/L 10/17/2022 2:33 PM [facility] GLUCOSE 137(H) 70 - 99 mg/dL 10/17/2022 2:33 PM OUTBOUND CALL CENTER REPRESENTATIVE [facility] BUN 17 8 - 23 mg/dL 10/17/2022 2:33 PM [facility] CREATININE, BLOOD 0.77 0.60 - 1.10 mg/dL 10/17/2022 2:33 PM [facility] BUN/CREATININE RATIO 22(H) 12 - 20 ratio 10/17/2022 2:33 PM [facility] TOTAL PROTEIN 6.9 6.0 - 8.3 g/dL 10/17/2022 2:33 PM [facility] ALBUMIN 4.0 3.5 - 5.2 g/dL 10/17/2022 2:33 PM [facility] Comment: The colormetric methods used for the determination of Albumin may lead to falsely elevated test results in patients suffering from renal failure or insufficiency due to interference with other proteins. A/G RATIO 1.4 1.0 - 2.0 10/17/2022 2:33 PM [facility] CALCIUM 9.8 8.9 - 10.3 mg/dL 10/17/2022 2:33 PM [facility] T BILI <0.3 <=1.2 mg/dL 10/17/2022 2:33 PM [facility] SGOT (AST) 13 <=32 U/L 10/17/2022 2:33 PM [facility] SGPT (ALT) 9 <=41 U/L 10/17/2022 2:33 PM [facility] ALKALINE PHOSPHATASE 82 35 - 105 U/L 10/17/2022 2:33 PM [facility] GFR, ESTIMATED >60 >=60 10/17/2022 2:33 PM [facility] Comment: Creatinine Clearance is the preferred criteria for selecting drug dose adjustments in renally impaired patients. The GFR is provided as additional pertinent clinical information. GFR is reported in mL/min/1.73 sq m. Calculation based on the Chronic Kidney Disease Epidemiology Collaboration (CKD- EPI) equation refit without adjustment for race. GFR, EST. >60 >=60 023 2:33 PM [facility] GFR, EST. NONAFRICAN >60 >=60 10/17/2022 2:33 PM OUTBOUND CALL CENTER REPRESENTATIVE [facility] Blood No Phlebotomy Charged / Unknown 10/17/2022 11:44 AM OUTBOUND CALL CENTER REPRESENTATIVE 10/17/2022 1:31 PM OUTBOUND CALL CENTER REPRESENTATIVE Victoriano Reid MD CHEMISTRY ORDERABLES Final Resul t [facility] [address] [place] [address] documented in this encounter Visit Diagnoses Not on filedocumented in this encounter Additional Health Concerns Assessment Noted Time PHQ-9 Depression Total Score: 0 08/15/20 21 10:00 AM CDT documented as of this encounter Care Teams Plant Operator Relationship Specialty Start Date End Date Victoriano Reid MD PCP - General Family Medicine 06/19/19 06/29/24 Elva Olivares DO 2 [facility]. [address] [place] [address] PCP - General Family Medicine 07/01/24 Malissa Joe, RN [place] Nurse [place] [employer] 12/03/23 12/03/23 Malissa Joe RN [place] Nurse [address] [employer] 12/05/23 12/05/23 [place], WEIGHT CHECKER [place] Product Assurance Engineer Street [employer] 11/03/24 Cabrera Yadav MD #2 [facility] [address] [place] [address] Consulting Physician Urology 11/07/24 documented as of this encounter
--- OUTSIDE RECORDS SUMMARY | 2025-01-26 17:59 | XMS_ITS | Encounter Summary ---
Author Organization [facility] Address [address] [place] [address] Phone Care Team Providers Care Non Destructive Testing Engineer Name Role Phone Victoriano Reid MD Primary Care Provider [phone] Malissa Joe RN Unavailable Unavailable Malissa Joe RN Unavailable Unavailable Elva Olivares DO Primary Care Provider [phone] [place] DOOR LINER Unavailable UnaCabrera Nevarez MD Unavailable [phone] Encounter Details Date Type Department Care Team (Late st Contact Info) Description 08/03/2020 Lab Requisition [facility] Laboratory Services [address] [place] [id number] Victoriano Reid MD #1 [place] [address] Type 2 diabetes mellitus with hyperglycemia (HCC) [...] 10:30 AM CDT Clinical Support [facility] UROLOGY #2 [place] [address] NurseKen Urology 02/02/2025 11:00 AM CDT [facility] 1 [facility] [place] [address] Cabrera Yadav MD #2 [facility] [address] [place] [address] Discharge Disposition: Discharged to home or Selfcare 02/10/2025 3:00 PM CDT [facility]ment [facility] Mammography 1 [place] [address] Elva Olivares, DO 2 [facility] [address] [place] [address] Discharge Disposition: Discharged to home or Selfcare 02/10/2025 4:00 PM CDT [facility]ment [facility] Ultrasound 1 [facility] [place] [address] Elva Olivares, DO 2 [facility] [address] [place] [address] Discharge Disposition: Discharged to home or Selfcare 02/17/2025 1:40 PM CDT Hospital [facility] Periop 1 [facility] [place] [address] Carbera Yadav MD #[address] [facility] [address] [place] [address] 02/17/2025 1:40 PM CDT - 02/17/2025 3:10 PM CDT [facility] Periop 1 [place] [address] Cabrera Yadav MD #2 [facility] [address] [place] [address] CYSTOSCOPY AND LITHOLAPAXY, PATIENT WILL NEED A PAUL LIFT 03/02/2025 8:40 AM CDT Office Visit [facility] Medical Group - Family Medicine - [place] [address] [place] [address] Elva Olivares, DO 2 [facility] [address] [place] [address] Scheduled Procedures Name Priority Associated Diagnoses Date/Ti [...] RESULTS STAPHYLOCOCCUS AUREUS 08/06/2020 9:58 AM CDT [facility] CULTURE RESULTS ALSO MIXED GROWTH OF DISTAL URETHRA CONTAMINANTS. 08/06/2020 9:58 AM CDT [facility] Urine Non-Phlebotomy Collection / Unknown 08/03/2020 2:00 [...] MICROBIOLOGY - GENERAL ORDERABLE S Final Result [facility] [address] [place] [address], * THYROID SCREEN WITH REFLEX (08/03/2020 2:00 PM CDT) Pathologist [facility] TSH 2.480 0.270 - 4.200 mIU/L 08/03/2020 5:35 PM CDT [facility] Blood Venipuncture / Unknown 08/03/2020 2:00 PM CDT 08/03/2020 4:54 PM CDT us Victoriano Reid MD CHEMISTRY ORDERABLES Final Resul t [facility] #1 [place] [address] * (ABNORMAL) CBC WITH AUTO DIFFERENTIAL (08/03/2020 2:00 PM CDT) Pathologist [facility] WBC 8.32 4.00 - 12.00 10(3)/mcL 08/03/2020 5:02 PM CDT [facility] RBC 4.20 3.80 - 5.30 10(6)/mcL 08/03/2020 5:02 PM CDT [facility] HEMOGLOBIN (HGB) 13.5 12.0 - 15.8 g/dL 08/03/2020 5:02 PM CDT [facility] HEMATOCRIT (HCT) 41.8 36.0 - 47.0 % 08/03/2020 5:02 PM CDT [facility] MCV 99.5(H) 82.0 - 96.0 fL 08/03/2020 5:02 PM CDT [facility] MCH 32.1 26.0 - 34.0 pg 08/03/2020 5:02 PM CDT [facility] MCHC 32.3 31.0 - 36.0 g/dL 08/03/2020 5:02 PM CDT [facility] PLATELET COUNT 191 140 - 440 10(3)/mcL 08/03/2020 5:02 PM CDT [facility] RDW 14.8 11.8 - 15.5 % 08/03/2020 5:02 PM CDT [facility] MPV 11.2 9.7 - 12.4 fL 08/03/2020 5:02 PM CDT [facility] NEUTROPHILS 59.8 47.0 - 73.0 % 08/03/2020 5:02 PM CDT [facility] LYMPHOCYTES 29.7 18.0 - 42.0 % 08/03/2020 5:02 PM CDT [facility] MONOCYTES 6.3 4.0 - 12.0 % 08/03/2020 5:02 PM CDT [facility] EOSINOPHILS 3.5 0.0 - 5.0 % 08/03/2020 5:02 PM CDT [facility] BASOPHILS 0.7 0.0 - 1.0 % 08/03/2020 5:02 PM CDT [facility] ABSOLUTE NEUTROPHILS 4.98 1.60 - 7.70 10(3)/mcL 08/03/2020 5:02 PM CDT [facility] ABSOLUTE LYMPHOCYTES 2.47 1.30 - 3.20 10(3)/mcL 08/03/2020 5:02 PM CDT [facility] ABSOLUTE MONOCYTES 0.52 0.20 - 1.00 10(3)/mcL 08/03/2020 5:02 PM CDT [facility] ABSOLUTE EOSINOPHIL 0.29 0.00 - 0.40 10(3)/mcL 08/03/2020 5:02 PM CDT [facility] ABSOLUTE BASOPHILS 0.06 0.00 - 0.10 10(3)/mcL 08/03/2020 5:02 PM CDT [facility] NRBC PER 100 WBC 0 08/03/20 20 5:02 PM CDT [facility] Blood Venipuncture / Unknown 08/03/2020 2:00 PM CDT 08/03/2020 4:53 PM CDT us Victoriano Reid MD HEMATOLOGY ORDERABLES Final Resu lt [facility] #[address] [place] [address] * (ABNORMAL) UR MICROALBUMIN/CREATININE RATIO RANDOM (08/03/2020 2:00 PM CDT) [facility] RAN UR MICROALBUMIN <=1.20 <=2.00 mg/dL 08/03/2020 6:27 PM CDT [facility] CREATININE URINE 9.5(L) 28.0 - 217.0 mg/dL 08/03/2020 6:27 PM CDT [facility] ALB/CREAT RATIO <=126(H) 1 - 30 mg/g CRE 08/03/2020 6:27 PM CDT [facility] Urine Non-Phlebotomy Collection / Unknown 08/03/2020 2:00 PM CDT 08/03/2020 6:14 PM CDT Victoriano Reid MD URINE ORDERABLES Final Result [facility] #[address] [place] [address] * (ABNORMAL) URINALYSIS REFLEX IF INDICATED BY ABNORMAL RESULTS (08/03/2020 2:00 PM CDT) [facility] SPECIFIC GRAVITY 1.005 1.003 - 1.030 08/03/2020 5:24 PM CDT [facility] URINE PH 7.0 5.0 - 9.0 08/03/2020 5:24 PM CDT [facility] WBC ESTERASE 500 /uL(A) Negative 08/03/2020 5:24 PM CDT [facility] NITRITE Positive(A) Negative 08/03/2020 5:24 PM CDT [facility] PROTEIN, RANDOM URINE Negative Negative 08/03/2020 5:24 PM CDT [facility] URINE GLUCOSE, QUAL Negative Negative 08/03/2020 5:24 PM CDT [facility] URINE KETONES Negative Negative 08/03/2020 5:24 PM CDT [facility] UROBILINOGEN Normal Normal mg/dL 08/03/2020 5:24 PM CDT [facility] URINE BILIRUBIN Negative Negative 0 5:24 PM CDT [facility] URINE BLOOD Negative Negative josefa/ul 08/03/2020 5:24 PM CDT [facility] URINALYSIS COLOR Yellow 08/03/2020 5:24 PM CDT [facility] URINALYSIS CLARITY Slightly Cloudy 08/03/2020 5:24 PM CDT [facility] WBC (Urine) 21-50(A) Negative, 0-5 /hpf 08/03/2020 5:24 PM CDT [facility] URINE RBC'S 0-2 Negative, 0-2 /hpf 08/03/2020 5:24 PM CDT [facility] EPITHELIAL CELLS Occasional /lpf 08/03/2020 5:24 PM CDT [facility] BACTERIA, URINE Few(A) Negative /hpf 08/03/2020 5:24 PM CDT [facility] Urine Non-Phlebotomy Collection / Unknown 08/03/2020 2:00 PM CDT 08/03/2020 5:01 PM CDT us Victoriano Reid MD URINE ORDERABLES Final Result Performing Organization Address City/[facility]/ZIP Co de Phone Number [facility] [address] [place] [address] * THYROXINE (T4) FREE (08/03/2020 2:00 PM CDT) T4 FREE 1.0 0.9 - 1.7 ng/dL 08/03/2020 5:35 PM CDT [facility] Blood Venipuncture / Unknown 08/03/2020 2:00 PM CDT 08/03/2020 4:55 PM CDT us Victoriano Reid MD CHEMISTRY ORDERABLES Final Resul t [facility] #[address] [place] [address] * (ABNORMAL) HEMOGLOBIN A1C W/ ESTIMATED GLUCOSE (08/03/2020 2:00 PM CDT) Pathologist [facility] HGB-A1C 6.1(H) 4.0 - 6.0 % 08/03/2020 5:29 PM CDT [facility] Est Average Glucose 128.4 mg/dL 08/03/2020 5:29 PM CDT [facility] Blood Venipuncture / Unknown 08/03/2020 2:00 PM CDT 08/03/2020 5:14 PM CDT Narrative [facility] - 08/03/2020 5:29 PM CDT HEMOGLOBIN A1C: DIABETIC PATIENTS: WELL-CONTROLLED: 6.2 - 7.0 INTERMEDIATE WELL-CONTROLLED: 7.0 - 9.0 POORLY-CONTROLLED: >9.0 us Victoriano Reid MD CHEMISTRY ORDERABLES Final Resul t [facility] #[address] [place] [address] * (ABNORMAL) LIPID PANEL (08/03/2020 2:00 PM CDT) CHOLESTEROL 149 <=200 mg/dL 08/03/2020 5:35 PM CDT [facility] TRIGLYCERIDES 138 <150 mg/dL 08/03/2020 5:35 PM CDT [facility] HDL CHOLESTEROL 33.9(L) >40 mg/dL 0 5:35 PM CDT [facility] LDL 88 5 - 130 mg/dL 08/03/2020 5:35 PM CDT [facility] VLDL 28 5 - 55 mg/dL 08/03/2020 5:35 PM CDT [facility] CHOL/HDL RATIO 4.4 0.0 - 4.4 08/03/2020 5:35 PM CDT [facility] NON-HDL CHOLESTEROL 115.1 <130 mg/dL 08/03/2020 5:35 PM CDT [facility] LIPID FASTING 08/03/2020 5:35 PM [address] [facility] Blood Venipuncture / Unknown 08/03/2020 2:00 PM CDT 08/03/2020 4:55 PM CDT Victoriano Reid MD CHEMISTRY ORDERABLES Final Resul t [facility] [address] [place] [address] * (ABNORMAL) CMP (COMPREHENSIVE METABOLIC PANEL) (08/03/2020 2:00 PM CDT) SODIUM 138 136 - 144 mmol/L 08/03/2020 5:35 PM [address] [facility] POTASSIUM 4.2 3.5 - 5.1 mmol/L 08/03/2020 5:35 PM CDT [facility] CHLORIDE 101 100 - 110 mmol/L 08/03/2020 5:35 PM CD[address] [facility] CO2, VENOUS 29 22 - 32 mmol/L 08/03/2020 5:35 PM [address] [facility] ANION GAP 12.2 8.0 - 20.0 mmol/L 08/03/2020 5:35 PM CD[address] [facility] GLUCOSE 126(H) 70 - 99 mg/dL 08/03/2020 5:35 PM CDT [facility] BUN 13 8 - 23 mg/dL 08/03/2020 5:35 PM [address] [facility] CREATININE, BLOOD 0.50(L) 0.60 - 1.10 mg/dL 08/03/2020 5:35 PM [address] [facility] BUN/CREATININE RATIO 26(H) 12 - 20 ratio 08/03/2020 5:35 PM CD[address] [facility] TOTAL PROTEIN 6.2 6.0 - 8.3 g/dL 08/03/2020 5:35 PM [address] [facility] ALBUMIN 3.9 3.5 - 5.2 g/dL 08/03/2020 5:35 PM CDT [facility] Comment: The colormetric methods used for the determination of Albumin may lead to falsely elevated test results in patients suffering from renal failure or insufficiency due to interference with other proteins. A/G RATIO 1.7 1.0 - 2.0 08/03/2020 5:35 PM CDT [facility] CALCIUM 9.4 8.9 - 10.3 mg/dL 08/03/2020 5:35 PM CDT [facility] T BILI <=0.2 <=1.2 mg/dL 08/03/2020 5:35 PM CDT [facility] SGOT (AST) 12 <=32 U/L 08/03/2020 5:35 PM CDT [facility] SGPT (ALT) 9 <=33 U/L 08/03/2020 5:35 PM CDT [facility] ALKALINE PHOSPHATASE 60 35 - 105 U/L 08/03/2020 5:35 PM CDT [facility] GFR, EST. NONAFRICAN >60 >=60 08/03/2020 5:35 PM CDT [facility] GFR, EST. >60 >=60 020 5:35 PM [address] [facility] Comment: Creatinine Clearance is the preferred criteria for selecting drug dose adjustments in renally impaired patients. The GFR is provided as additional pertinent clinical information. GFR is reported in mL/min/1.73 sq m. Blood Venipuncture / Unknown 08/03/2020 2:00 PM CDT 08/03/2020 4:55 PM CDT us Victoriano Reid MD CHEMISTRY ORDERABLES Final Resul t 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 06/05/2019 04/15/2021 7:28 AM CDT Assessment Noted Time PHQ-9 Depression Total Score: 0 10/24/19 20 11:16 AM PURCHASING AND CLAIMS SUPERVISOR documented as of this encounter Care Teams Non Destructive Testing Engineer Relationship Specialty Start Date End Date Victoriano Reid MD PCP - General Family Medicine 06/19/19 06/29/24 Elva Olivares DO 2 [facility] [address] [place] [address] PCP - General Family Medicine 07/01/24 [place] Joe RN [place] Nurse Mold Cleaner 12/03/23 12/03/23 Mal[place] Joe RN [place] Nurse Mold Cleaner 12/05/23 12/05/23 [place] LSW [place] Wet Chemistry Analyst Mold Cleaner 11/03/24 Cabrera Yadav MD #2 [facility] [address] [place] [address] Consulting Physician Urology 11/07/24 documented as of this encounter
--- OUTSIDE RECORDS SUMMARY | 2025-01-26 17:59 | XMS_ITS | Encounter Summary ---
Author Organization [facility] Address [address] [facility] [place] [address] Phone Care Team Providers Care Tier Over Name Role Phone Victoriano Reid MD Primary Care Provider [phone] Elva Olivares DO Primary Care Provider [phone] [place] ENGRAVER PANTOGRAPH Unavailable Unavai Cabrera Dodge MD Unavailable [phone] Encounter Details Date Type Department Care Team (Late st Contact Info) Description 03/19/2024 Lab Requisition [facility] Services [address] [place] [id number] Victoriano Reid MD #1 [place] [address] Personal history of urinary (tract) infections; Encounter for fitting and adjustment of urinary device Social History Tobacco Use Types Packs/Day Years Used Date Smoking Tobacco: Every Day Cigarettes Smokeless Tobacco: Never Alcohol Use Standard Drinks/Week Comments Not Currently 0 (1 standard drink = 0.6 oz pur e alcohol) [facility] Utilities Answer Date Recorded In the past 12 months has [employer] electric, gas, oil, or water company threatened [...] often do you attend chur ch or anglican services? Never 12/20/2023 Do you belong to any clubs o r organizations such as adventism groups, unions, fraternal or athletic groups, or [...] Description 01/28/2025 10:30 AM CDT Clinical Support [facility] UROLOGY #[address] [place] [address] Nurse, Ken Urology 02/02/2025 11:00 AM CDT Appointment [facility] CT 1 [facility] [place] [address] Cabrera Yadav MD #2 [facility] [address] [address] [address] Discharge Disposition: Discharged to home or Selfcare 02/10/2025 3:00 PM CDT Appointment [facility] Mammography 1 [facility] [place] [address] Elva Olivares, DO 2 [facility] [address] [place] [address] Discharge Disposition: Discharged to home or Selfcare 02/10/2025 4:00 PM CDT [facility]ointment [facility] [address] [place] [address] Elva Olivares, DO 2 [facility] [address] [place] [address] Discharge Disposition: Discharged to home or Selfcare 02/17/2025 1:40 PM CDT [facility] 1 [facility] [place] [address] Cabrera Yadav MD #2 [facility] [address] [place] [address] 02/17/2025 1:40 PM CDT - 02/17/2025 3:10 PM CDT [facility] [address] [place] [address] Cabrera Yadav MD #2 [address] [address] CYSTOSCOPY AND LITHOLAPAXY, PATIENT WILL NEED A PAUL LIFT 03/02/2025 8:40 AM CDT Office Visit [facility] Medical Group - Family Medicine [facility] #2 [facility] [address] Elva Olivares, DO 2 [facility] [facility] [address] [place] [address] Scheduled Procedures Name Priority Associated Diagnoses Date/Ti [...] KLEBSIELLA OXYTOCA 03/21/2024 3:42 PM CDT [facility] CULTURE RESULTS ESCHERICHIA COLI 03/21/2024 3:42 PM CDT [facility] Culture Non-Phlebotomy Collection / Unknown 03/19/2024 [...] MICROBIOLOGY - GENERAL ORDERABLE S Final Result [facility] [address] [place] [address], * (ABNORMAL) URINALYSIS REFLEX IF INDICATED BY ABNORMAL RESULTS (03/19/2024 2:45 PM CDT) SPECIFIC GRAVITY 1.010 1.003 - 1.030 03/19/2024 4:01 PM CDT [facility] URINE PH 7.0 5.0 - 9.0 03/19/2024 4:01 PM CDT [facility] WBC ESTERASE 500 /uL(A) Negative 03/19/2024 4:01 PM CDT [facility] NITRITE Positive(A) Negative 03/19/2024 4:01 PM CDT [facility] PROTEIN, RANDOM URINE 15 mg/dL(A) Negative 03/19/2024 4:01 PM CDT [facility] URINE GLUCOSE, QUAL Negative Negative 03/19/2024 4:01 PM CDT [facility] URINE KETONES Negative Negative 03/19/2024 4:01 PM CDT [facility] UROBILINOGEN Normal Normal mg/dL 03/19/2024 4:01 PM CDT [facility] URINE BLOOD 150 /uL(A) Negative josefa/ul 03/19/2024 4:01 PM CDT [facility] URINALYSIS COLOR Yellow 03/19/2024 4:01 PM CDT [facility] URINALYSIS CLARITY Slightly Cloudy 03/19/2024 4:01 PM CDT [facility] WBC (Urine) 21-50(A) Negative, 0-5 /hpf 03/19/2024 4:01 PM CDT [facility] URINE RBC'S 21-50(A) Negative, 0-2 /hpf 03/19/2024 4:01 PM CDT [facility] EPITHELIAL CELLS Occasional /lpf 03/19/2024 4:01 PM CDT [facility] BACTERIA, URINE Many(A) Negative /hpf 03/19/2024 4:01 PM CDT [facility] Urine Non-Phlebotomy Collection / Unknown 03/19/2024 2:45 PM CDT 03/19/2024 3:38 PM CDT Victoriano Reid MD URINE ORDERABLES Final Result [facility] #[address] [place] [address] documented in this encounter Visit Diagnoses Diagnosis Personal history of urinary (tract) infections Encounter for fitting and adjustment of urinary device documented in this encounter Additional Health Concerns Assessment Noted Time PHQ-9 Depression Total Score: 0 08/15/20 21 10:00 AM CDT documented as of this encounter Care Teams Tier Over Relationship Specialty Start Date End Date Victoriano Reid MD PCP - General Family Medicine 06/19/19 06/29/24 Elva Olivares DO 2 [facility] [address] [address] PCP - General Family Medicine 07/01/24 [place], ENGRAVER PANTOGRAPH [place] Information Services Vice President English Language Arts Teacher 11/03/24 Cabrera Yaadv MD #2 [facility] [address] [place] [address] Consulting Physician Urology 11/07/24 documented as of this encounter
--- OUTSIDE RECORDS SUMMARY | 2025-01-26 17:59 | XMS_ITS | Encounter Summary ---
Author Organization [facility] Address [address] [facility] [place] [address] Phone Care Team Providers Care Tax Services Manager Name Role Phone Victoriano Reid MD Primary Care Provider [phone] Elva Olivares DO Primary Care Provider [phone] [place] TONGUE PRESSER Unavailable Unavai Cabrera Dodge MD Unavailable [phone] Encounter Details Date Type Department Care Team (Late st Contact Info) Description 12/20/2023 Lab Requisition [facility] Laboratory Services 1 [place] [id number] Victoriano Reid MD #1 [place] [address] Type 2 diabetes mellitus with other specified complication (HCC) Social History Tobacco Use Types Packs/Day Years Used Date Smoking Tobacco: Every Day Cigarettes Smokeless Tobacco: Never Alcohol Use Standard Drinks/Week Comments Not Currently 0 (1 standard drink = 0.6 oz pur e alcohol) [facility] Utilities Answer Date Recorded In the [...] any clubs o r organizations such as taoist groups, unions, fraternal or athletic groups, or [...] - Questions 1-9 0 12/14 [facility] - [...] of Assessment Author 0 12/20/2023 11:52 AM CNC CUTTING OPERATOR GLO Sciencet, System Background * Within the last year, have you been humiliated or emotionally abused in other ways by your partner or ex-partner? Answer Date of Assessment Author No 12/20/2023 11:52 AM CNC CUTTING OPERATOR Expert TAhart, System Background * Within the last year, have you been afraid of your partner or ex-partner? Answer Date of Assessment Author No 12/20/2023 11:52 AM CNC CUTTING OPERATOR Expert TAhart, System Background * Within the last year, have you been raped or forced to have any kind of sexual activity by your partner or ex-partner? Answer Date of Assessment Author No 12/20/2023 11:52 AM CNC CUTTING OPERATOR Mychart, System Background * Within the last year, have you been kicked, hit, slapped, or otherwise physically hurt by your partner or ex-partner? Answer Date of Assessment Author No 12/20/2023 11:52 AM CNC CUTTING OPERATOR Mychart, System Background * Q1: How often do you have a drink containing alcohol? Answer Date of Assessment Author Never 12/20/2023 11:52 AM CNC CUTTING OPERATOR [facility] [employer], System Background * Q2: How many drinks containing alcohol do you have on a typical day when you are drinking? Answer Date of Assessment Author Patient does not drink 12/20/2023 11:52 AM CNC CUTTING OPERATOR Samuels Sleephart, System Background * Q3: How often do you have six or more drinks on one occasion? Answer Date of Assessment Author Never 12/20/2023 11:52 AM CNC CUTTING OPERATOR GLO Sciencet, System Background documented as of this encounter Plan of Treatment Upcoming Encounters Date Type Department Care Team (Latest Contact Info) Description 01/28/2025 10:30 AM CDT Clinical Support [facility] UROLOGY #2 [place] [address] NurseKen Urology 02/02/2025 11:00 AM CDT [facility]ointment [facility] CT 1 [facility] [place] [address] Cabrera Yadav MD #2 [facility] [address] [place] [address] Discharge Disposition: Discharged to home or Selfcare 02/10/2025 3:00 PM CDT Appointment [facility] Mammography 1 [facility] [place] [address] Elva Olivares, DO 2 [facility] MARY [address] [place] [address] Discharge Disposition: Discharged to home or Selfcare 02/10/2025 4:00 PM CDT Appointment [facility] Ultrasound 1 [facility] [place] [address] Elva Olivares, DO 2 [facility] MARY. [address] [place] [address] Discharge Disposition: Discharged to home or Selfcare 02/17/2025 1:40 PM CDT Hospital Encounter [facility] Periop 1 [place] [address] Cabrera Yadav MD #[address] [address] 02/17/2025 1:40 PM CDT - 02/17/2025 3:10 PM CDT Surgery [facility] Periop 1 [place] [address] Cabrera Yadav MD #[address] [address] CYSTOSCOPY AND LITHOLAPAXY, PATIENT WILL NEED A PAUL LIFT 03/02/2025 8:40 AM CDT Office Visit [facility] - Family Medicine [facility] #2 [place] [address] Elva Olivares, DO [address] [address] Scheduled Procedures Name Priority Associated Diagnoses Date/Ti me CYSTOSCOPY BLADDER STONE BLADDER STONES 02/17/2025 1:40 PM CDT documented as of this encounter Procedures Procedure Name Priority Date/Time Associated Diagnosis Comments HEMOGLOBIN A1C W/ ESTIMATED GLUCOSE Routine 12/20/2023 12:30 PM CNC CUTTING OPERATOR Type 2 diabetes mellitus with other specified complication (HCC) CBC WITH AUTO DIFFERENTIAL Routine 12/20/2023 12:30 PM CNC CUTTING OPERATOR Type 2 diabetes mellitus with other specified complication (HCC) CMP (COMPREHENSIVE METABOLIC PANEL) Routine 12/20/2023 12:30 PM CNC CUTTING OPERATOR Type 2 diabetes mellitus with other specified complication (HCC) COMPLETE BLOOD COUNT (CBC) WITH DIFF Routine 12/20/2023 12:30 PM CNC CUTTING OPERATOR Type 2 diabetes mellitus with other specified complication (HCC) documented in this encounter Results * (ABNORMAL) CBC WITH AUTO DIFFERENTIAL (12/20/2023 12:30 PM [facility]) WBC 9.25 4.00 - 12.00 10(3)/mcL 12/20/2023 2:29 PM [facility] RBC 4.47 3.80 - 5.30 10(6)/mcL 12/20/2023 2:29 PM [facility] HEMOGLOBIN (HGB) 14.7 12.0 - 15.8 g/dL 12/20/2023 2:29 PM [facility] HEMATOCRIT (HCT) 44.7 36.0 - 47.0 % 12/20/2023 2:29 PM [facility] MCV 100.0(H) 82.0 - 96.0 fL 12/20/2023 2:29 PM [facility] MCH 32.9 26.0 - 34.0 pg 12/20/2023 2:29 PM [facility] MCHC 32.9 31.0 - 36.0 g/dL 12/20/2023 2:29 PM [facility] PLATELET COUNT 161 140 - 440 10(3)/mcL 12/20/2023 2:29 PM [facility] RDW 14.3 11.8 - 15.5 % 12/20/2023 2:29 PM [facility] MPV 11.8 9.7 - 12.4 fL 12/20/2023 2:29 PM [facility] NEUTROPHILS 51.9 47.0 - 73.0 % 12/20/2023 2:29 PM [facility] LYMPHOCYTES 37.2 18.0 - 42.0 % 12/20/2023 2:29 PM [facility] MONOCYTES 6.5 4.0 - 12.0 % 12/20/2023 2:29 PM [facility] EOSINOPHILS 3.5 0.0 - 5.0 % 12/20/2023 2:29 PM CNC CUTTING OPERATOR [facility] BASOPHILS 0.9 0.0 - 1.0 % 12/20/2023 2:29 PM CNC CUTTING OPERATOR [facility] ABSOLUTE NEUTROPHILS 4.81 1.60 - 7.70 10(3)/[facility] 12/20/2023 2:29 PM CNC CUTTING OPERATOR [facility] ABSOLUTE LYMPHOCYTES 3.44(H) 1.30 - 3.20 10(3)/[facility] 12/20/2023 2:29 PM CNC CUTTING OPERATOR [facility] ABSOLUTE MONOCYTES 0.60 0.20 - 1.00 10(3)/[facility] 12/20/2023 2:29 PM CNC CUTTING OPERATOR [facility] ABSOLUTE EOSINOPHIL 0.32 0.00 - 0.40 10(3)/[facility] 12/20/2023 2:29 PM CNC CUTTING OPERATOR [facility] ABSOLUTE BASOPHILS 0.08 0.00 - 0.10 10(3)/[facility] 12/20/2023 2:29 PM CNC CUTTING OPERATOR [facility] NRBC PER 100 WBC 0 12/20/19 2:29 PM CNC CUTTING OPERATOR [facility] Blood No Phlebotomy Charged / Unknown 12/20/2023 12:30 PM CNC CUTTING OPERATOR 12/20/2023 2:26 PM CNC CUTTING OPERATOR us Victoriano Reid MD HEMATOLOGY ORDERABLES Final Resu lt [facility] #1 [place] [address] * HEMOGLOBIN A1C W/ ESTIMATED GLUCOSE (12/20/2023 12:30 PM CNC CUTTING OPERATOR) HGB-A1C 5.8 4.0 - 6.0 % 12/20/2023 2:51 PM CNC CUTTING OPERATOR [facility] Est Average Glucose 119.8 mg/dL 12/20/2023 2:51 PM CNC CUTTING OPERATOR [facility] Blood No Phlebotomy Charged / Unknown 12/20/2023 12:30 PM CNC CUTTING OPERATOR 12/20/2023 2:26 PM CNC CUTTING OPERATOR Narrative [facility] - 12/20/2023 2:51 PM CNC CUTTING OPERATOR HEMOGLOBIN A1C: DIABETIC PATIENTS: WELL-CONTROLLED: 6.2 - 7.0 INTERMEDIATE WELL-CONTROLLED: 7.0 - 9.0 POORLY-CONTROLLED: >9.0 us Victoriano Reid MD CHEMISTRY ORDERABLES Final Resul t [facility] #1 [place] [address] * (ABNORMAL) CMP (COMPREHENSIVE METABOLIC PANEL) (12/20/2023 12:30 PM CNC CUTTING OPERATOR) SODIUM 144 136 - 145 mmol/L 12/20/2023 2:47 PM CNC CUTTING OPERATOR [facility] POTASSIUM 4.2 3.5 - 5.1 mmol/L 12/20/2023 2:47 PM [facility] CHLORIDE 109(H) 98 - 107 mmol/L 12/20/2023 2:47 PM [facility] CO2, VENOUS 27 22 - 30 mmol/L 12/20/2023 2:47 PM [facility] ANION GAP 12.2 <18.0 mmol/L 12/20/2023 2:47 PM [facility] GLUCOSE 136(H) 70 - 99 mg/dL 12/20/2023 2:47 PM [facility] BUN 14 10 - 20 mg/dL 12/20/2023 2:47 PM [facility] CREATININE, BLOOD 0.84 0.60 - 1.00 mg/dL 12/20/2023 2:47 PM [facility] BUN/CREATININE RATIO 17 12 - 20 ratio 12/20/2023 2:47 PM [facility] TOTAL PROTEIN 6.9 6.3 - 8.2 g/dL 12/20/2023 2:47 PM [facility] ALBUMIN 3.8 3.5 - 5.0 g/dL 12/20/2023 2:47 PM [facility] A/G RATIO 1.2 1.0 - 2.2 12/20/2023 2:47 PM CNC CUTTING OPERATOR [facility] CALCIUM 9.8 8.7 - 10.5 mg/dL 12/20/2023 2:47 PM CNC CUTTING OPERATOR [facility] T BILI 0.3 0.2 - 1.2 mg/dL 12/20/2023 2:47 PM CNC CUTTING OPERATOR [facility] SGOT (AST) 12 5 - 34 U/L 12/20/2023 2:47 PM CNC CUTTING OPERATOR [facility] SGPT (ALT) 10 0 - 55 U/L 12/20/2023 2:47 PM CNC CUTTING OPERATOR [facility] ALKALINE PHOSPHATASE 69 40 - 150 U/L 12/20/2023 2:47 PM CNC CUTTING OPERATOR [facility] GFR, ESTIMATED >60 >=60 12/20/2023 2:47 PM CNC CUTTING OPERATOR [facility] Comment: Creatinine Clearance is the preferred criteria for selecting drug dose adjustments in renally impaired patients. The GFR is provided as additional pertinent clinical information. GFR is reported in mL/min/1.73 sq m. Calculation based on the Chronic Kidney Disease Epidemiology Collaboration (CKD- EPI) equation refit without adjustment for race. GFR, EST. >60 >=60 024 2:47 PM CNC CUTTING OPERATOR [facility] GFR, EST. NONAFRICAN >60 >=60 12/20/2023 2:47 PM [facility] Blood No Phlebotomy Charged / Unknown 12/20/2023 12:30 PM CNC CUTTING OPERATOR 12/20/2023 2:26 PM CNC CUTTING OPERATOR us Victoriano Reid MD CHEMISTRY ORDERABLES Final Resul t [facility] #1 [place] [address] documented in this encounter Visit Diagnoses Diagnosis Type 2 diabetes mellitus with other specified complication documented in this encounter Additional Health Concerns Assessment Noted Time PHQ-9 Depression Total Score: 0 08/15/20 21 10:00 AM CDT documented as of this encounter Care Teams Tax Services Manager Relationship Specialty Start Date End Date Victoriano Reid MD PCP - General Family Medicine 06/19/19 06/29/24 Elva Olivares DO 2 [facility] [address] [place] [address] PCP - General Family Medicine 07/01/24 [place], [facility] Freight Receiver Boat Puller 11/03/24 Cabrera Yadav MD #2 [facility] [address] [place] [address] Consulting Physician Urology 11/07/24 documented as of this encounter
--- OUTSIDE RECORDS SUMMARY | 2025-01-26 17:59 | XMS_ITS | Encounter Summary ---
Author Organization [facility] Address [address] [place] [address] Phone Care Team Providers Care Process Developer Name Role Phone Victoriano Reid MD Primary Care Provider [phone] Malissa Joe RN Unavailable Unavailable Malissa Joe RN Unavailable Unavailable Elva Oilvares DO Primary Care Provider [phone] [place] SEAT NAILER Unavailable Cabrera Smallwood MD Unavailable [phone] Reason for Visit * Reason Comments Medication Refill Encounter Details Date Type Department Care Team (Late st Contact Info) Description 11/04/2022 Refill [facility] #2 [place] [address] Victoriano Reid MD #1 [place] [address] Medication Refill Social History Tobacco Use Types [...] Dept 09/19/22 Office Visit Victoriano Reid MD [facility] 01/05/22 Office Visit Nia Abbott, SUZY [facility] Showing recent visits within past 365 days and meeting all other requirements Future Appointments No visits were found meeting these conditions. Showing future appointments within next 90 days and meeting all other requirements TOR DRILL OPERATOR documented in this encounter Plan of Treatment Upcoming Encounters Date Type Department Care Team (Latest Contact Info) Description 01/28/2025 10:30 AM CDT Clinical Support [facility] UROLOGY #2 [place] [address] Nurse Ken Urology 02/02/2025 11:00 AM CDT [facility] [address] [place] [address] Cabrera Yadav MD #2 [facility], [address] [address] Discharge Disposition: Discharged to home or Selfcare 02/10/2025 3:00 PM CDT [facility] Mammography [address] [place] [address] Elva Olivares, DO 2 [facility] [address] [place] [address] Discharge Disposition: Discharged to home or Selfcare 02/10/2025 4:00 PM CDT [facility] 1 [facility] [address] Elva Olivares, DO 2 [facility] [address] [place] [address] Discharge Disposition: Discharged to home or Selfcare 02/17/2025 1:40 PM CDT Hospital Encounter [facility] Periop 1 [facility] [place] [address] Cabrera Yadav MD #[address] [address] 02/17/2025 1:40 PM CDT - 02/17/2025 3:10 PM CDT Surgery [facility] Periop 1 [facility] [place] [address] Cabrera Yadav MD #[address] [place] [address] CYSTOSCOPY AND LITHOLAPAXY, PATIENT WILL NEED A PAUL LIFT 03/02/2025 8:40 AM CDT Office Visit [facility] - Family Medicine [facility] #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 [address] [place] [address] PCP - General Family Medicine 07/01/24 Malissa Joe, RN [place] Nurse Director Of Instrumental Music 12/03/23 12/03/23 Malissa Joe, RN [place] Nurse Director Of Instrumental Music 12/05/23 12/05/23 [place], SEAT NAILER [place] Production Grip Director Of Instrumental Music 11/03/24 Cabrera Yadav MD #2 [facility] [address] [place] [address] Consulting Physician Urology 11/07/24 documented as of this encounter
--- OUTSIDE RECORDS SUMMARY | 2025-01-26 17:59 | XMS_ITS | Encounter Summary ---
Author Organization [facility] Address [address] [place] [address] Phone Care Team Providers Care Patch Driller Name Role Phone Victoriano Reid MD Primary Care Provider [phone] Malissa Joe RN Unavailable Unavailable Malissa Joe RN Unavailable Unavailable Elva Olivares DO Primary Care Provider [phone] [place] WAFER POLISHING WORKER Unavailable Unaabdirizaki Cabrera Dodge MD Unavailable [phone] Encounter Details Date Type Department Care Team (Late st Contact Info) Description 04/20/2020 [facility] 1 [place] [address] Victoriano Reid MD #1 [place] [address] Urinary tract infection, site not specified Social [...] Description 01/28/2025 10:30 AM CDT Clinical Support [facility] UROLOGY #[address] [place] [address] Nurse, Ken Urology 02/02/2025 11:00 AM CDT Appointment [facility] CT [address] [place] [address] Cabrera Yadav MD #2 SHANELLE MCMILLAN, [facility] [address] [place] [address] Discharge Disposition: Discharged to home or Selfcare 02/10/2025 3:00 PM CDT [facility] 1 [facility] [place] [address] Elva Olivares, DO 2 [facility] [address] [place] [address] Discharge Disposition: Discharged to home or Selfcare 02/10/2025 4:00 PM CDT [facility]ment [facility] Ultrasound [address] [place] [address] Elva Olivares, DO 2 [facility] [address] [place] [address] Discharge Disposition: Discharged to home or Selfcare 02/17/2025 1:40 PM CDT Hospital [facility] Periop [address] [place] [address] Cabrera Yadav MD #2 SHANELLE MCMILLAN, [facility] [address] [place] [address] 02/17/2025 1:40 PM CDT - 02/17/2025 3:10 PM CDT [facility] [address] [place] [address] Cabrera Yadav MD #2 SHANELLE MCMILLAN [facility] [address] [place] [address] CYSTOSCOPY AND LITHOLAPAXY, PATIENT WILL NEED A PAUL LIFT 03/02/2025 8:40 AM CDT Office Visit [facility] Medical Group - Family Medicine [facility] #[address] [place] [address] Elav Olivares, DO 2 [facility]. [address] [place] [address] Scheduled Procedures Name Priority Associated Diagnoses Date/Ti [...] RESULTS ESCHERICHIA COLI 04/24/2020 9:18 AM CDT [facility] Urine Non-Phlebotomy Collection / Unknown 04/20/2020 3:50 [...] - GENERAL ORDERABLE S Final Result [facility] [address] [place] [address], * (ABNORMAL) URINALYSIS REFLEX IF INDICATED BY ABNORMAL RESULTS (04/20/2020 3:50 PM CDT) SPECIFIC GRAVITY 1.010 1.003 - 1.030 04/20/2020 5:20 PM CDT [facility] PH 8.0 5.0 - 9.0 04/20/2020 5:20 PM CDT [facility] WBC ESTERASE 500 /uL(A) Negative 04/20/2020 5:20 PM CDT [facility] NITRITE Positive(A) Negative 04/20/2020 5:20 PM CDT [facility] PROTEIN, RANDOM URINE Negative Negative 04/20/2020 5:20 PM CDT [facility] URINE GLUCOSE, QUAL Negative Negative 04/20/2020 5:20 PM CDT [facility] URINE KETONES Negative Negative 04/20/2020 5:20 PM CDT [facility] UROBILINOGEN Normal Normal mg/dL 04/20/2020 5:20 PM CDT [facility] URINE BILIRUBIN Negative Negative 0 5:20 PM CDT [facility] URINE BLOOD 10 /uL(A) Negative josefa/ul 04/20/2020 5:20 PM CDT [facility] URINALYSIS COLOR Straw 04/20/20 5:20 PM CDT [facility] URINALYSIS CLARITY Very Cloudy 04/20/2020 5:20 PM CDT [facility] WBC (Urine) 21-50(A) Negative, 0-5 /hpf 04/20/2020 5:20 PM CDT [facility] URINE RBC'S 0-2 Negative, 0-2 /hpf 04/20/2020 5:20 PM CDT [facility] EPITHELIAL CELLS Small amount /lpf 2019 5:20 PM CDT [facility] BACTERIA, URINE Packed(A) Negative /hpf 04/20/2020 5:20 PM CDT [facility] Urine Non-Phlebotomy Collection / Unknown 04/20/2020 3:50 PM CDT 04/20/2020 4:57 PM CDT Victoriano Reid MD URINE ORDERABLES Final Result [facility] #[address] [place] [address] documented in this encounter Visit Diagnoses Diagnosis Urinary tract infection, site not specified documented in this encounter Additional Health Concerns Infection Onset Date Last Indicated Resolved Time 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 [address] [place] [address] PCP - General Family Medicine 07/01/24 Malissa Joe, RN [place] Nurse Associate Professor Of Kinesiology 12/03/23 12/03/23 Malissa Joe, RN [place] Nurse Associate Professor Of Kinesiology 12/05/23 12/05/23 [place], WAFER POLISHING WORKER [place] Talent Development Consultant Associate Professor Of Kinesiology 11/03/24 Cabrera Yadav MD #2 [facility] [address] [place] [address] Consulting Physician Urology 11/07/24 documented as of this encounter
--- OUTSIDE RECORDS SUMMARY | 2025-01-26 17:59 | XMS_ITS | Encounter Summary ---
Author Organization [facility] Address [address] [place] [address] Phone Care Team Providers Care Ophthalmic Technologist Name Role Phone Victoriano Reid MD Primary Care Provider [phone] Malissa Joe RN Unavailable Unavailable Malissa Joe RN Unavailable Unavailable Elva Olivares DO Primary Care Provider [phone] Hinton STERILE PRODUCTS PROCESSOR Unavailable Unaabdirizaki Cabrera Dodge MD Unavailable [phone] Encounter Details Date Type Department Care Team (Late st Contact Info) Description 04/25/2021 Lab Requisition [facility] Laboratory Services 1 [place] [address] Victoriano Reid MD #1 [place] [address] Neuromuscular dysfunction of bladder, unspecified Social History [...] 01/28/2025 10:30 AM CDT Clinical Support [facility]IAN GROUP UROLOGY #2 [place] [address] Nurse, Ken Urology 02/02/2025 11:00 AM CDT [facility] 1 [place] [address] Cabrera Yadav MD #2 [facility] [address] [place] [address] Discharge Disposition: Discharged to home or Selfcare 02/10/2025 3:00 PM CDT [facility] Mammography 1 [place] [address] Elva Olivares, DO 2 [facility] [address] [place] [address] Discharge Disposition: Discharged to home or Selfcare 02/10/2025 4:00 PM CDT [facility] Ultrasound 1 [place] [address] Elva Olivares, DO 2 [facility] [address] [place] [address] Discharge Disposition: Discharged to home or Selfcare 02/17/2025 1:40 PM CDT Hospital [facility] Periop 1 [place] [address] Cabrera Yadav MD #2 [facility] [address] [place] [address] 02/17/2025 1:40 PM CDT - 02/17/2025 3:10 PM CDT Surgery [facility] Periop 1 [facility] [place] [address] Cabrera Yadav MD #2 [facility] [address] [place] [address] CYSTOSCOPY AND LITHOLAPAXY, PATIENT WILL NEED A PAUL LIFT 03/02/2025 8:40 AM CDT Office Visit [facility] Medical Group - Family Medicine [facility] #2 [place] [address] Elva Olivares, DO 2 [facility]. [address] [place] [address] Scheduled Procedures Name Priority Associated Diagnoses Date/Ti [...] S, COAGULASE NEGATIVE 05/01/2021 7:37 AM CDT [facility] Urine Non-Phlebotomy Collection / Unknown 04/25/2021 4:00 [...] - GENERAL ORDERABLE S Final Result [facility] [address] [place] [address], * (ABNORMAL) URINALYSIS REFLEX IF INDICATED BY ABNORMAL RESULTS (04/25/2021 4:00 PM CDT) Pathologist [facility] SPECIFIC GRAVITY 1.010 1.003 - 1.030 04/25/2021 5:43 PM CDT [facility] URINE PH 8.0 5.0 - 9.0 04/25/2021 5:43 PM CDT [facility] WBC ESTERASE 500 /uL(A) Negative 04/25/2021 5:43 PM CDT [facility] NITRITE Positive(A) Negative 04/25/2021 5:43 PM CDT [facility] PROTEIN, RANDOM URINE 100 mg/dL(A) Negative 04/25/2021 5:43 PM CDT [facility] URINE GLUCOSE, QUAL Negative Negative 04/25/2021 5:43 PM CDT [facility] URINE KETONES Negative Negative 04/25/2021 5:43 PM CDT [facility] UROBILINOGEN Normal Normal mg/dL 04/25/2021 5:43 PM CDT [facility] URINE BILIRUBIN Negative Negative 5:43 PM CDT [facility] URINE BLOOD 250 /uL(A) Negative josefa/ul 04/25/2021 5:43 PM CDT [facility] URINALYSIS COLOR Dark Yellow 04/25/2021 5:43 PM CDT [facility] URINALYSIS CLARITY Very Cloudy 04/25/2021 5:43 PM CDT [facility] WBC (Urine) 6-10(A) Negative, 0-5 /hpf 04/25/2021 5:43 PM CDT [facility] URINE RBC'S 21-50(A) Negative, 0-2 /hpf 04/25/2021 5:43 PM CDT [facility] EPITHELIAL CELLS Occasional /lpf 04/25/2021 5:43 PM CDT [facility] BACTERIA, URINE Many(A) Negative /hpf 04/25/2021 5:43 PM CDT [facility] Urine Non-Phlebotomy Collection / Unknown 04/25/2021 4:00 PM CDT 04/25/2021 5:20 PM CDT us Victoriano Reid MD URINE ORDERABLES Final Result [facility] #1 [place] [address] documented in this encounter Visit Diagnoses Diagnosis Neuromuscular dysfunction of bladder, unspecified documented in this encounter Additional Health Concerns Assessment Noted Time PHQ-9 Depression Total Score: 0 10/24/19 20 11:16 AM EXECUTIVE TEAM LEADER documented as of this encounter Care Teams Ophthalmic Technologist Relationship Specialty Start Date End Date Victoriano Reid MD PCP - General Family Medicine 06/19/19 06/29/24 Elva Olivares DO [address] [address] PCP - General Family Medicine 07/01/24 Malissa Joe, RN [place] Nurse Casting Operator Helper 12/03/23 12/03/23 Malissa Joe RN [place] Nurse Casting Operator Helper 12/05/23 12/05/23 Hinton, STERILE PRODUCTS PROCESSOR [place] Tape Cutter Casting Operator Helper 11/03/24 Cabrera Yadav MD #[address] [address] Consulting Physician Urology 11/07/24 documented as of this encounter
--- OUTSIDE RECORDS SUMMARY | 2025-01-26 17:59 | XMS_ITS | Encounter Summary ---
Author Organization [facility] Address [address] [place] [facility] [place] [address] Phone Care Team Providers Care Sleep Lab Technician Name Role Phone Elva Olivares Becky GARCIA Primary Care Provider [phone] Hinton SHIELD RUNNER Unavailable Cabrera Smallwood MD Unavailable [phone] Reason for Visit * Reason Onset Date Comments Need Order 07/08/2024 Encounter Details Date Type Department Care Team (Late st Contact Info) Description 07/08/2024 Telephone [facility] [address] [place] [address] Adwoa Hannah, PT [place] Need Order Social History Tobacco Use Types Packs/Day Years Used Date Smoking Tobacco: Every Day Cigarettes 2 15 Smokeless Tobacco: Never Alcohol Use Standard Drinks/Week Comments Not Currently 0 (1 standard drink = 0.6 oz pur e alcohol) [facility] Utilities Answer Date Recorded In the past 12 months has Liquid electric, gas, oil, or water company threatened [...] week 04/15/2024 How often do you attend [facility] or mormon services? Never 04/15/2024 Do you belong to any clubs o r organizations such as baptist groups, unions, fraternal or athletic groups, or [...] Score - Questions 1-9 0 12/14 [facility] of Occupat ional [facility] - Occupational Stress Questionnaire Answer Date [...] in a half-way (including now)? No 12/20/2023 Housing Stability Vital [...] were you homeless or living in a half-way (including now)? No 04/15/2024 Education Answer Date [...] Support [facility] #2 [place] [address] NurseKen Urology 02/02/2025 11:00 AM CDT Appointment [facility] CT 1 [facility] [place] [address] Cabrera Yadav MD #2 [address] [address] Discharge Disposition: Discharged to home or Selfcare 02/10/2025 3:00 PM CDT [facility] 1 [place] [address] Elva Olivares, DO 2 [facility] [address] [place] [address] Discharge Disposition: Discharged to home or Selfcare 02/10/2025 4:00 PM CDT [facility] Ul[facility]ound 1 [place] [address] Elva Olivares, DO 2 [facility] [address] [address] Discharge Disposition: Discharged to home or Selfcare 02/17/2025 1:40 PM CDT Hospital [facility] Per[facility] 1 [facility] [place] [address] Cabrera Yadav MD #[address] [address] 02/17/2025 1:40 PM CDT - 02/17/2025 3:10 PM CDT [facility] Periop 1 [facility] [place] [address] Cabrera Yadav MD #[address] [address] CYSTOSCOPY AND LITHOLAPAXY, PATIENT WILL NEED A PAUL LIFT 03/02/2025 8:40 AM CDT Office Visit [facility] #2 [place] [address] Elva Olivares DO 2 [facility] [address] [place] [address] Scheduled Procedures Name Priority Associated Diagnoses Date/Ti me CYSTOSCOPY BLADDER STONE BLADDER STONES 02/17/2025 1:40 PM CDT documented as of this encounter Visit Diagnoses Not on filedocumented in this encounter Additional Health Concerns Assessment Noted Time PHQ-9 Depression Total Score: 0 08/15/20 21 10:00 AM CDT documented as of this encounter Care Teams Sleep Lab Technician Relationship Specialty Start Date End Date Elva Olivares DO 2 Magda [facility] [address] [place] [address] PCP - General Family Medicine 07/01/24 Hinton, [facility] Plate Developer Sand Operator 11/03/24 Cabrera Yadav MD #2 [address] [address] Consulting Physician Urology 11/07/24 documented as of this encounter
--- OUTSIDE RECORDS SUMMARY | 2025-01-26 17:59 | XMS_ITS | Encounter Summary ---
Author Organization [facility] Address [address] [place] [address] Phone Care Team Providers Care Enamel Cracker Name Role Phone Victoriano Reid MD Primary Care Provider [phone] Malissa Joe RN Unavailable Unavailable Malissa Joe RN Unavailable Unavailable Elva Olivares DO Primary Care Provider [phone] Hinton [facility] Unavailable Cabrera Smallwood MD Unavailable [phone] Reason for Visit * Reason Comments Medication Refill Encounter Details Date Type Department Care Team (Late st Contact Info) Description 11/20/[address] [facility] - Family Medicine [facility] #2 [place] [address] Victoriano Reid MD #1 [place] [address] Medication Refill Social History Tobacco Use Types Packs/Day Years Used Date Smoking Tobacco: Every Day Cigarettes Smokeless Tobacco: Never Alcohol Use Standard Drinks/Week Comments Not Currently 0 (1 standard drink = 0.6 oz pur e alcohol) [facility] Utilities Answer Date Recorded In the [...] attend chur ch or buddhism services? Never 10/22/2023 Do you belong to [...] slept in a long-term (including now)? No 10/22/2023 Education Answer Date [...] Type Provider Dept 10/23/23 Telemedicine Miriam Prasad, HOME HEALTH REGISTERED NURSE, RIPSHEAR OPERATOR Oslor[facility] Rogers 03/29/23 Office Visit Victoriano Reid MD [facility] [place] Showing recent visits within past 365 days and meeting all other requirements Future Appointments Date Type Provider Dept 12/21/23 Appointment Victoriano Reid MD [facility] [place] Showing future appointments within next 90 [...] Type Provider Dept 10/23/23 Telemedicine Miriam Prasad, HOME HEALTH REGISTERED NURSE, RIPSHEAR OPERATOR [facility] 03/29/23 Office Visit Victoriano Reid MD [facility] [place] Showing recent visits within past 365 days and meeting all other requirements Future Appointments Date Type Provider Dept 12/21/23 Appointment Victoriano Reid MD [facility] [place] Showing future appointments within next 90 days and meeting all other requirements ONENT DESIGN ENGINEER documented in this encounter Plan of Treatment Upcoming Encounters Date Type Department Care Team (Latest Contact Info) Description 01/28/2025 10:30 AM CDT Clinical Support [facility] PHYSICIAN GROUP UROLOGY #2 [place] [address] Nurse, Ken Urology 02/02/2025 11:00 AM CDT [facility] 1 [facility] [place] [address] Cabrera Yadav MD #2 [facility] [address] [place] [address] Discharge Disposition: Discharged to home or Selfcare 02/10/2025 3:00 PM CDT [facility] M[facility] 1 [place] [address] Elva Olivares, DO 2 [facility] [address] [place] [address] Discharge Disposition: Discharged to home or Selfcare 02/10/2025 4:00 PM CDT [facility] Ultrasound [address] [place] [address] Elva Olivares, DO 2 [facility] [address] [place] [address] Discharge Disposition: Discharged to home or Selfcare 02/17/2025 1:40 PM CDT Hospital [facility] Per[facility] 1 [facility] [place] [address] Cabrera Yadav MD #2 [facility] [address] [place] [address] 02/17/2025 1:40 PM CDT - 02/17/2025 3:10 PM CDT [facility] Per[facility] 1 [facility] [place] [address] Cabrera Yadav MD #[address] [address] CYSTOSCOPY AND LITHOLAPAXY, PATIENT WILL NEED A PAUL LIFT 03/02/2025 8:40 AM CDT Office [facility] - Family Medicine [facility] #2 [facility] [place] [address] Elva Olivares, DO 2 [facility] [address] [place] [address] Scheduled Procedures Name Priority Associated Diagnoses Date/Ti me CYSTOSCOPY BLADDER STONE BLADDER STONES 02/17/2025 1:40 PM CDT documented as of this encounter Visit Diagnoses Diagnosis Muscle spasm Spasm of muscle documented in this encounter Additional Health Concerns Assessment Noted Time PHQ-9 Depression Total Score: 0 08/15/20 21 10:00 AM CDT documented as of this encounter Care Teams Enamel Cracker Relationship Specialty Start Date End Date Victoriano Reid MD PCP - General Family Medicine 06/19/19 06/29/24 Elva Olivares DO 2 [facility] [address] [place] [address] PCP - General Family Medicine 07/01/24 Malissa Joe, RN [place] Nurse Regional Vice President Life Sales 12/03/23 12/03/23 Malissa Joe, RN [place] Nurse Regional Vice President Life Sales 12/05/23 12/05/23 Hinton, [facility] [place] Psychology Clinician Regional Vice President Life Sales 11/03/24 Cabrera Yadav MD #2 [facility] [address] [place] [address] Consulting Physician Urology 11/07/24 documented as of this encounter
--- OUTSIDE RECORDS SUMMARY | 2025-01-26 17:59 | XMS_ITS | Encounter Summary ---
Author Organization [facility] Address [address] [place] [address] Phone Care Team Providers Care Street Light Servicer Helper Name Role Phone Victoriano Reid MD Primary Care Provider [phone] Malissa Joe RN Unavailable Unavailable Malissa Joe RN Unavailable Unavailable Elva Olivares DO Primary Care Provider [phone] Hinton POULTRY HELPER Unavailable Cabrera Smallwood MD Unavailable [phone] Reason for Visit * Reason Comments Medication Refill Encounter Details Date Type Department Care Team (Late st Contact Info) Description 10/24/2022 Refill [facility] #2 [place] [address] Victoriano Reid MD #1 [place] [address] Medication Refill Social History Tobacco Use Types [...] Yara Peacock RN - 10/24/2022 9:51 AM ANIMAL ANATOMIST Per nursing clinical judgement, provider to review and approve the medication(s) order(s) if appropriate. Requested Prescriptions Pending Prescriptions Disp Refills ergocalciferol (VITAMIN D) 20929 UNIT Capsule [Pharmacy Med Name: VITAMIN D2 50,000IU (ERGO) CAP RX] 12 Capsule 3 Sig: TAKE ONE CAPSULE BY MOUTH ONCE A WEEK ON SUNDAY Vitamin Supplements (Adult) Protocol Passed - 10/24/2022 9:40 AM Passed - Visit with relevant provider in past 12 months or upcoming 90 days Recent Visits Date Type Provider Dept 09/19/22 Office Visit Victoriano Reid MD [facility] 01/05/22 Office Visit Nia Abbott PAC [facility] Showing recent visits within past 365 days and meeting all other requirements Future Appointments No visits were found meeting these conditions. Showing future appointments within next 90 days and meeting all other requirements Passed - Vitamin D less than 1.25mg AL ANATOMIST documented in this encounter Plan of Treatment Upcoming Encounters Date Type Department Care Team (Latest Contact Info) Description 01/28/2025 10:30 AM CDT Clinical Support [facility]IAN GROUP UROLOGY #2 [place] [address] Nurse, Ken Urology 02/02/2025 11:00 AM CDT Appointment [facility] CT 1 [place] [address] Cabrera Yadav MD #2 [facility], [address] [address] Discharge Disposition: Discharged to home or Selfcare 02/10/2025 3:00 PM CDT Appointment [facility] Mammography [address] [place] [address] Elva Olivares, DO 2 [facility] [address] [place] [address] Discharge Disposition: Discharged to home or Selfcare 02/10/2025 4:00 PM CDT Appointment [facility] Ultrasound 1 [facility] [place] [address] Elva Olivares, DO 2 [facility] [address] [place] [address] Discharge Disposition: Discharged to home or Selfcare 02/17/2025 1:40 PM CDT [facility] 1 [facility] [place] [address] Cabrera Yadav MD #[address] [address] 02/17/2025 1:40 PM CDT - 02/17/2025 3:10 PM CDT Surgery [facility] Periop 1 [facility] [address] Cabrera Yadav MD #[address] [place] [address] CYSTOSCOPY AND LITHOLAPAXY, PATIENT WILL NEED A PAUL LIFT 03/02/2025 8:40 AM CDT Office Visit [facility] Medical Group - Family Medicine [facility] #2 [place] [address] Elva Olivares, DO 2 [facility] [address] [place] [address] Scheduled Procedures Name Priority Associated Diagnoses Date/Ti mo CYSTOSCOPY BLADDER STONE BLADDER STONES 02/17/2025 1:40 PM CDT documented as of this encounter Visit Diagnoses Diagnosis Vitamin D deficiency Unspecified vitamin D deficiency documented in this encounter Additional Health Concerns Assessment Noted Time PHQ-9 Depression Total Score: 0 08/15/20 10:00 AM CDT documented as of this encounter Care Teams Street Light Servicer Helper Relationship Specialty Start Date End Date Victoriano Reid MD PCP - General Family Medicine 06/19/19 06/29/24 Elva Olivares DO 2 [facility] [address] [place] [address] PCP - General Family Medicine 07/01/24 Malissa Joe, RN [place] Nurse Chain Saw Mechanic 12/03/23 12/03/23 Malissa Joe, RN [place] Nurse Chain Saw Mechanic 12/05/23 12/05/23 Hinton, POULTRY HELPER [place] Smasher Chain Saw Mechanic 11/03/24 Cabrera Yadav MD #2 [facility] [address] [place] [address] Consulting Physician Urology 11/07/24 documented as of this encounter
--- OUTSIDE RECORDS SUMMARY | 2025-01-26 17:59 | XMS_ITS | Encounter Summary ---
Author Organization [facility] Address [address] [place] [address] Phone Care Team Providers Care Environmental Services Attendant Name Role Phone Victoriano Reid MD Primary Care Provider [phone] Malissa Joe RN Unavailable Unavailable Malissa Joe RN Unavailable Unavailable Elva Olivares DO Primary Care Provider [phone] H[place] DOCENT COORDINATOR Unavailable Cabrera Smallwood MD Unavailable [phone] Reason for Visit * Reason Comments Medication Refill Encounter Details Date Type Department Care Team (Late st Contact Info) Description 08/28/2022 Refill [facility] - Family Medicine [facility] #2 [place] [address] Victoriano Reid MD #1 [place] [address] Medication Refill Social History Tobacco Use Types [...] Yara Peacock RN - 08/28/2022 11:03 AM PRODUCTION DEPARTMENT SUPERVISOR Medication failed the protocol, provider to review [...] Dept 01/05/22 Office Visit Nia Abbott PAC [facility] Ken Showing recent visits within past 365 days and meeting all other requirements Future Appointments Date Type Provider Dept 08/29/22 Appointment Victoriano Reid MD [facility] Ken Showing future appointments within next 90 days and meeting all other requirements UCTION DEPARTMENT SUPERVISOR documented in this encounter Plan of Treatment Upcoming Encounters Date Type Department Care Team (Latest Contact Info) Description 01/28/2025 10:30 AM CDT Clinical Support [facility] PHYSICIAN GROUP UROLOGY #2 [place] [address] Nurse, Ken Urology 02/02/2025 11:00 AM CDT Appointment [facility] CT 1 [facility] [place] [address] Cabrera Yadav MD #2 [facility] [address] Discharge Disposition: Discharged to home or Selfcare 02/10/2025 3:00 PM CDT Appointment [facility] Mammography [address] [place] [address] Elva Olivares, DO 2 [facility] [address] [place] [address] Discharge Disposition: Discharged to home or Selfcare 02/10/2025 4:00 PM CDT Appointment [facility] Ultrasound 1 [facility] [place] [address] Elva Olivares, DO 2 [facility] [address] [address] Discharge Disposition: Discharged to home or Selfcare 02/17/2025 1:40 PM CDT [facility] 1 [place] [address] Cabrera Yadav MD #2 [address] [address] 02/17/2025 1:40 PM CDT - 02/17/2025 3:10 PM CDT Surgery [facility] Periop 1 [facility] [place] [address] Cabrera Yadav MD #2 [address] [address] CYSTOSCOPY AND LITHOLAPAXY, PATIENT WILL NEED A PAUL LIFT 03/02/2025 8:40 AM CDT Office Visit [facility] Medical Group - Family Medicine [facility] #2 [place] [address] Elva Olivares DO 2 Magda MCMILLAN [facility] [address] [place] [address] Scheduled Procedures Name Priority Associated Diagnoses Date/Ti in CYSTOSCOPY BLADDER STONE BLADDER STONES 02/17/2025 1:40 PM CDT documented as of this encounter Visit Diagnoses Not on filedocumented in this encounter Additional Health Concerns Assessment Noted Time PHQ-9 Depression Total Score: 0 08/15/20 21 10:00 AM CDT documented as of this encounter Care Teams Environmental Services Attendant Relationship Specialty Start Date End Date Victoriano Reid MD PCP - General Family Medicine 06/19/19 06/29/24 Elva Olivares DO 2 Magda MCMILLAN [facility] [address] [place] [address] PCP - General Family Medicine 07/01/24 Malissa Joe, RN [place] Nurse Mash Preparatory Operator 12/03/23 12/03/23 Malissa Joe, RN [place] Nurse Mash Preparatory Operator 12/05/23 12/05/23 [place], [facility] [place] Armament Installer Mash Preparatory Operator 11/03/24 Cabrera Yadav MD #2 [address] [address] Consulting Physician Urology 11/07/24 documented as of this encounter
--- OUTSIDE RECORDS SUMMARY | 2025-01-26 17:59 | XMS_ITS | Encounter Summary ---
Author Organization [facility] Address [address] [place] [address] Phone Care Team Providers Care Restaurant Manager Name Role Phone Victoriano Reid MD Primary Care Provider Elva Olivares DO Primary Care Provider [phone] [place] [facility] Unavailable Cabrera Smallwood MD Unavailable [phone] Reason for Visit * Reason Comments Medication Refill Encounter Details Date Type Department Care Team (Late Contact Info) Description 03/19/2024 Refill [facility] Medical Group - Family Medicine [facility] #2 [place] [address] Victoriano Reid MD #1 [place] [address] Medication Refill Social History Tobacco Use Types Packs/Day Years Used Date Smoking Tobacco: Every Day Cigarettes Smokeless Tobacco: Never Alcohol Use Standard Drinks/Week Comments Not Currently 0 (1 standard drink = 0.6 oz pur e alcohol) [facility] Utilities Answer Date Recorded In the past [...] often do you attend chur ch or scientologist services? Never 12/20/2023 Do you belong to any clubs o r organizations such as episcopalian groups, unions, fraternal or athletic groups, or [...] in a mcfp (including now)? No 12/20/2023 Education Answer Date [...] Provider Dept 12/06/23 Telemedicine Victoriano Reid MD [facility] [place] 10/23/23 Telemedicine Miriam Prasad APRN, LORI [...] Provider Dept 12/06/23 Telemedicine [facility] 10/23/23 Telemedicine Miriam Prasad APRN, LORI [facility] 03/29/23 Office Visit Victoriano Reid MD [facility] Showing recent visits within past 365 days and meeting all other requirements Future Appointments No visits were found meeting these conditions. Showing future appointments within next 90 days and meeting all other requirements documented in this encounter Plan of Treatment Upcoming Encounters Date Type Department Care Team (Latest Contact Info) Description 01/28/2025 10:30 AM CDT Clinical Support [facility] UROLOGY #2 [place] [address] Nurse, [place] [facility] 02/02/2025 11:00 AM CDT [facility] [address] [place] [address] Cabrera Yadav MD #2 [facility] [address] [place] [address] Discharge Disposition: Discharged to home or Selfcare 02/10/2025 3:00 PM CDT [facility] 1 [place] [address] Elva Olivares, DO 2 [facility] [address] [place] [address] Discharge Disposition: Discharged to home or Selfcare 02/10/2025 4:00 PM CDT [facility] Ul[facility]ound 1 [place] [address] Elva Olivares, DO 2 [facility] [address] [address] Discharge Disposition: Discharged to home or Selfcare 02/17/2025 1:40 PM CDT [facility] 1 [facility] [place] [address] Cabrera Yadav MD #[address] [address] 02/17/2025 1:40 PM CDT - 02/17/2025 3:10 PM CDT [facility] 1 [place] [address] Cabrera Yadav MD #2 [facility] [address] CYSTOSCOPY AND LITHOLAPAXY, PATIENT WILL NEED A PAUL LIFT 03/02/2025 8:40 AM CDT Office Visit [facility] Medical Group - Family Medicine [facility] #2 [place] [address] Elva Olivares, DO 2 [facility] [address] [address] [address] Scheduled Procedures Name Priority Associated Diagnoses Date/Ti [...] documented as of this encounter Care Teams Restaurant Manager Relationship Specialty Start Date End Date Victoriano Reid MD PCP - General Family Medicine 06/19/19 06/29/24 Elva Olivares DO 2 [facility] [address] [place] [address] PCP - General Family Medicine 07/01/24 [place], [facility] Knee Bolter Optical Instrument Repairer 11/03/24 Cabrera Yadav MD #2 [facility] [address] [place] [address] Consulting Physician Urology 11/07/24 documented as of this encounter
--- OUTSIDE RECORDS SUMMARY | 2025-01-26 17:59 | XMS_ITS | Encounter Summary ---
Author Organization [facility] Address [address] [place] [address] Phone Care Team Providers Care Hotel Concierge Name Role Phone Victoriano Reid MD Primary Care Provider [phone] Malissa Joe RN Unavailable Unavailable Malissa Joe RN Unavailable Unavailable Elva Olivares DO Primary Care Provider [phone] [place] MUD MIXER HELPER Unavailable Cabrera Smallwood MD Unavailable [phone] Reason for Visit * Reason Comments Medication Refill Encounter Details Date Type Department Care Team (Late st Contact Info) Description 09/06/2022 Refill [facility] Medical Group - Family Medicine [facility] #2 [place] [address] Victoriano Reid MD #1 [place] [address] Medication Refill Social History Tobacco Use Types [...] 90 days and meeting all other requirements ICAL EDUCATION AIDE documented in this encounter Plan of Treatment Upcoming Encounters Date Type Department Care Team (Latest Contact Info) Description 01/28/2025 10:30 AM CDT Clinical Support [facility] UROLOGY #2 [address] [address] Nurse, Ken Urology 02/02/2025 11:00 AM CDT [facility] [address] [place] [address] Cabrera Yadav MD #2 [facility] [address] [place] [address] Discharge Disposition: Discharged to home or Selfcare 02/10/2025 3:00 PM CDT [facility] 1 [facility] [place] [address] Elva Olivares, DO 2 [facility] [facility] [address] [place] [address] Discharge Disposition: Discharged to home or Selfcare 02/10/2025 4:00 PM CDT [facility] Ul[facility]ound 1 [address] [place] [address] Elva Olivares, DO 2 [facility] [place] [facility] 205 [place] [address] Discharge Disposition: Discharged to home or Selfcare 02/17/2025 1:40 PM CDT [facility] 1 [address] [place] [address] Cabrera Yadav MD #2 SHANELLE MCMILLAN, [facility] [address] [place] [address] 02/17/2025 1:40 PM CDT - 02/17/2025 3:10 PM CDT [facility] Periop 1 [facility] [place] [address] Cabrera Yadav MD #[address] [address] CYSTOSCOPY AND LITHOLAPAXY, PATIENT WILL NEED A PAUL LIFT 03/02/2025 8:40 AM CDT Office Visit [facility] - Family Medicine [facility] #2 [place] [address] Elva Olivares DO 2 [facility] [address] [place] [address] Scheduled Procedures Name Priority Associated Diagnoses Date/Ti me CYSTOSCOPY BLADDER STONE BLADDER STONES 02/17/2025 1:40 PM CDT documented as of this encounter Visit Diagnoses Diagnosis Muscle spasm Spasm of muscle Allergic rhinitis, unspecified seasonality, unspecified trigger documented in this encounter Additional Health Concerns Assessment Noted Time PHQ-9 Depression Total Score: 0 08/15/20 21 10:00 AM CDT documented as of this encounter Care Teams Hotel Concierge Relationship Specialty Start Date End Date Victoriano Reid MD PCP - General Family Medicine 06/19/19 06/29/24 Elva Olivares DO 2 [facility] [address] [place] [address] PCP - General Family Medicine 07/01/24 Malissa Joe, RN [place] Nurse Lathe Winder 12/03/23 12/03/23 Malissa Joe RN [place] Nurse Lathe Winder 12/05/23 12/05/23 [place], MUD MIXER HELPER [place] [address] Magistrate Lathe Winder 11/03/24 Cabrera Yadav MD #2 [facility] [address] [address] Consulting Physician Urology 11/07/24 documented as of this encounter
--- OUTSIDE RECORDS SUMMARY | 2025-01-26 17:59 | XMS_ITS | Encounter Summary ---
Author Organization [facility] Address [address] [place] [address] Phone Care Team Providers Care Machine Taper Name Role Phone Victoriano Reid MD Primary Care Provider [phone] Malissa Joe RN Unavailable Unavailable Malissa Joe RN Unavailable Unavailable Elva Olivares DO Primary Care Provider [phone] [place] ACCESS LIAISON Unavailable UnaCabrera Nevarez MD Unavailable [phone] Reason for Visit * Reason Comments Medication Refill Encounter Details Date Type Department Care Team (Late st Contact Info) Description 08/31/2021 Refill [facility] - Family Medicine [facility] #2 [place] [address] Sathish Loomis MD #[address] [address] Medication Refill Social History Tobacco Use Types [...] Questions ?? 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 [address] [place] [address] Cabrera Yadav MD #2 [facility] [address] [place] [address] Discharge Disposition: Discharged to home or Selfcare 02/10/2025 3:00 PM CDT [facility] Mamm[facility] 1 [facility] [place] [address] Elva Olivares, DO [address] [address] Discharge Disposition: Discharged to home or Selfcare 02/10/2025 4:00 PM CDT App[facility] Ul[facility]ound 1 [facility] [place] [address] Elva Olivares, DO 2 [facility] [place] MCMILL[address] [address] Discharge Disposition: Discharged to home or Selfcare 02/17/2025 1:40 PM CDT Hospital En[facility] Periop 1 [address] [place] [address] Cabrera Yadav MD #[address] [address] 02/17/2025 1:40 PM CDT - 02/17/2025 3:10 PM CDT Surgery [facility] Periop 1 [facility] [place] [address] Cabrera Yadav MD #[address] [address] CYSTOSCOPY AND LITHOLAPAXY, PATIENT WILL NEED A PAUL LIFT 03/02/2025 8:40 AM CDT Office Visit [facility] #2 [place] [address] Elva Olivares DO 2 [facility] 205 [place] [address] Scheduled Procedures Name Priority Associated Diagnoses Date/Ti me CYSTOSCOPY BLADDER STONE BLADDER STONES 02/17/2025 1:40 PM CDT documented as of this encounter Visit Diagnoses Diagnosis 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) documented in this encounter Additional Health Concerns Assessment Noted Time PHQ-9 Depression Total Score: 0 08/15/20 21 10:00 AM CDT documented as of this encounter Care Teams Machine Taper Relationship Specialty Start Date End Date Victoriano Reid MD PCP - General Family Medicine 06/19/19 06/29/24 Elva Olivares DO [address] [facility] [address] [place] [address] PCP - General Family Medicine 07/01/24 Malissa Joe, RN [place] Nurse Advanced Registered Nurse 12/03/23 12/03/23 Malissa Joe, RN [place] Nurse Advanced Registered Nurse 12/05/23 12/05/23 [place], ACCESS LIAISON [place] Lunch Counter Manager Advanced Registered Nurse 11/03/24 Cabrera Yadav MD #[address] [address] Consulting Physician Urology 11/07/24 documented as of this encounter
--- OUTSIDE RECORDS SUMMARY | 2025-01-26 17:59 | XMS_ITS | Encounter Summary ---
Author Organization [facility] Address [address] [place] [address] Phone Care Team Providers Care Social Media Content Specialist Name Role Phone Victoriano Reid MD Primary Care Provider [phone] Malissa Joe RN Unavailable Unavailable Malissa Joe RN Unavailable Unavailable Elva Olivares DO Primary Care Provider [phone] [place] MULTI SENSOR OPERATOR Unavailable Unaabdirizaki Cabrera Dodge MD Unavailable [phone] Encounter Details Date Type Department Care Team (Late st Contact Info) Description 09/07/2020 Lab Requisition [facility] Laboratory Services 1 [place] [address] Victoriano Reid MD #1 [place] [address] Neuromuscular dysfunction of bladder, unspecified; Urinary tract [...] Description 01/28/2025 10:30 AM CDT Clinical Support [facility] #2 [facility] [place] [address] Nurse, [place] [facility] 02/02/2025 11:00 AM CDT [facility] 1 [facility] [place] [address] Cabrera Yadav MD #2 [facility] 300 [place] [address] Discharge Disposition: Discharged to home or Selfcare 02/10/2025 3:00 PM CDT [facility] 1 [facility] [place] [address] Evla Olivares, DO 2 [facility] 205 [place] [address] Discharge Disposition: Discharged to home or Selfcare 02/10/2025 4:00 PM CDT [facility] 1 [facility] [place] [address] Elva Olivares, DO 2 [facility] [facility] 205 [place] [address] Discharge Disposition: Discharged to home or Selfcare 02/17/2025 1:40 PM CDT Hospital [facility] Per[facility] 1 [place] [address] Cabrera Yadav MD #[address] [facility] [address] [place] [address] 02/17/2025 1:40 PM CDT - 02/17/2025 3:10 PM CDT [facility] 1 [facility] [place] [address] Cabrera Yadav MD #2 SHANELLE MCMILLAN, [facility] [address] [place] [address] CYSTOSCOPY AND LITHOLAPAXY, PATIENT WILL NEED A PAUL LIFT 03/02/2025 8:40 AM CDT Office Visit [facility] Medical Group - Family Medicine [facility] #2 [place] [address] Elva Olivares, DO 2 [facility] [address] [facility] [address] [place] [address] Scheduled Procedures Name Priority Associated Diagnoses Date/Ti me CYSTOSCOPY BLADDER STONE BLADDER STONES 02/17/2025 1:40 PM CDT documented as of this encounter Procedures Procedure Name Priority Date/Time Associated Diagnosis Comments CULTURE, URINE Routine 09/07/2020 5:00 PM NOVELTY CANDY MAKER Neuromuscular dysfunction of bladder, unspecified Urinary tract infection, site not specified Personal history of urinary (tract) infections documented in this encounter Results * CULTURE, URINE (09/07/2020 5:00 PM NOVELTY CANDY MAKER) CULTURE RESULTS STAPHYLOCOCCUS AUREUS 09/11/2020 6:33 AM NOVELTY CANDY MAKER [facility] CULTURE RESULTS ALSO MIXED GROWTH OF DISTAL URETHRA CONTAMINANTS. 09/11/2020 6:33 AM NOVELTY CANDY MAKER [facility] Culture URINE SPECIMEN / Unknown No Phlebotomy Charged / Unknown 09/07/2020 5:00 PM NOVELTY CANDY MAKER 09/07/2020 5:39 PM NOVELTY CANDY MAKER Narrative Organism Antibiotic Method Susceptibility Staphylococcus aureus Gentamicin SF VITEK II >=16 mcg/ml: Resistant Staphylococcus aureus Nitrofurantoin [facility] VITEK II <=16 mcg/ml: Susceptible Staphylococcus aureus Oxacillin [facility] VITEK II <=0.25 mcg/ml: Susceptible Staphylococcus aureus Tetracycline [facility] VITEK II <=1 mcg/ml: Susceptible Staphylococcus aureus Trimeth/Sulfamethoxazole [facility] RANDY II <=10 mcg/ml: Susceptible Staphylococcus aureus Vancomycin [facility] VITEK II <=0.5 mcg/ml: Susceptible us Victoriano Reid MD MICROBIOLOGY - GENERAL ORDERABLE S Final Result [facility] [address] [place] [address], documented in this encounter Visit Diagnoses Diagnosis Neuromuscular dysfunction of bladder, unspecified Urinary tract infection, site not specified Personal history of urinary (tract) infections documented in this encounter Additional Health Concerns Infection Onset Date Last Indicated Resolved Time 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 06/05/2019 04/15/2021 7:28 AM CDT Assessment Noted Time PHQ-9 Depression Total Score: 0 10/24/19 11:16 AM NOVELTY CANDY MAKER documented as of this encounter Care Teams Social Media Content Specialist Relationship Specialty Start Date End Date Victoriano Reid MD PCP - General Family Medicine 06/19/19 06/29/24 Elva Olivares DO 2 [facility] [address] [place] [address] PCP - General Family Medicine 07/01/24 Malissa Joe RN [place] Nurse Online Media Director 12/03/23 12/03/23 Mlaissa Joe RN [place] Nurse Online Media Director 12/05/23 12/05/23 [place], MULTI SENSOR OPERATOR [place] Aircraft Maintenance Manager Online Media Director 11/03/24 Cabrera Yadav MD #2 [facility] [address] [place] [address] Consulting Physician Urology 11/07/24 documented as of this encounter
--- OUTSIDE RECORDS SUMMARY | 2025-01-26 17:59 | XMS_ITS | Encounter Summary ---
Author Organization [facility] Address [address] [place] [address] Phone Care Team Providers Care Vice President Global Digital Marketing Name Role Phone Victoriano Reid MD Primary Care Provider Elva Olivares DO Primary Care Provider [phone] H[place] [facility] Unavailable Cabrera Smallwood MD Unavailable [phone] Reason for Visit * Reason Comments Medication Refill Encounter Details Date Type Department Care Team (Late Contact Info) Description 12/20/2023 Refill [facility] Medical Group - Family Medicine [facility] #2 [place] [address] Victoriano Reid MD #1 [place] [address] Medication Refill Social History Tobacco Use Types Packs/Day Years Used Date Smoking Tobacco: Every Day Cigarettes Smokeless Tobacco: Never Alcohol Use Standard Drinks/Week Comments Not Currently 0 (1 standard drink = 0.6 oz pur e alcohol) [facility] Utilities Answer Date Recorded In [...] often do you attend chur ch or christianity services? Never 12/20/2023 Do you belong to [...] of Assessment Author 0 12/20/2023 11:52 AM PHOTOGRAPHIC AIDE [employer] Background * Within the last year, have you been humiliated or emotionally abused in other ways by your partner or ex-partner? Answer Date of Assessment Author No 12/20/2023 11:52 AM PHOTOGRAPHIC AIDE [employer] Background * Within the last year, have you been afraid of your partner or ex-partner? Answer Date of Assessment Author No 12/20/2023 11:52 AM PHOTOGRAPHIC AIDE [employer], System Background * Within the last year, have you been raped or forced to have any kind of sexual activity by your partner or ex-partner? Answer Date of Assessment Author No 12/20/2023 11:52 AM PHOTOGRAPHIC AIDE [employer], System Background * Within the last year, have you been kicked, hit, slapped, or otherwise physically hurt by your partner or ex-partner? Answer Date of Assessment Author No 12/20/2023 11:52 AM PHOTOGRAPHIC AIDE [employer], System Background * Q1: How often do you have a drink containing alcohol? Answer Date of Assessment Author Never 12/20/2023 11:52 AM PHOTOGRAPHIC AIDE [employer] Background * Q2: How many drinks containing alcohol do you have on a typical day when you are drinking? Answer Date of Assessment Author Patient does not drink 12/20/2023 11:52 AM PHOTOGRAPHIC AIDE [employer] System Background * Q3: How often do you have six or more drinks on one occasion? Answer Date of Assessment Author Never 12/20/2023 11:52 AM PHOTOGRAPHIC AIDE [employer] Background documented as of this encounter Miscellaneous Notes * Telephone Encounter - Adelaida Medina RN - 12/20/2023 10:19 AM PHOTOGRAPHIC AIDE Medication failed the protocol, provider to review [...] [facility] 10/23/23 Telemedicine Miriam Prasad APRN, ASSISTANT SOFTBALL COACH [facility] Ken 03/29/23 Office Visit [facility] Showing recent visits within past 365 days and meeting all other requirements Future Appointments Date Type Provider Dept 12/21/23 Appointment Victoriano Reid MD [facility] Showing future appointments within next 90 days and meeting all other requirements OGRAPHIC AIDE documented in this encounter Plan of Treatment Upcoming Encounters Date Type Department Care Team (Latest Contact Info) Description 01/28/2025 10:30 AM CDT Clinical Support [facility] #2 [place] [address] Nurse, Ken Urology 02/02/2025 11:00 AM CD[facility] [address] [place] [address] Cabrera Yadav MD #2 [facility] [address] [place] [address] Discharge Disposition: Discharged to home or Selfcare 02/10/2025 3:00 PM CDT [facility] 1 [facility] [place] [address] Elva Olivares, DO 2 [facility] [address] [place] [address] Discharge Disposition: Discharged to home or Selfcare 02/10/2025 4:00 PM CDT [facility] 1 [facility] [place] [address] Elva Olivares, DO 2 Magda MCMILLAN [facility] [address] [place] [address] Discharge Disposition: Discharged to home or Selfcare 02/17/2025 1:40 PM CDT [facility] Per[facility] 1 [place] [address] Cabrera Yadav MD #2 [address] [address] 02/17/2025 1:40 PM CDT - 02/17/2025 3:10 PM CDT [facility] [address] [place] [address] Cabrera Yadav MD #2 [facility] [address] [place] [address] CYSTOSCOPY AND LITHOLAPAXY, PATIENT WILL NEED A PAUL LIFT 03/02/2025 8:40 AM CDT Office Visit [facility] - Family [facility] #2 [place] [address] Elva Olivares DO 2 [facility] [facility] [address] [place] [address] Scheduled Procedures Name Priority Associated Diagnoses Date/Ti me CYSTOSCOPY BLADDER STONE BLADDER STONES 02/17/2025 1:40 PM CDT documented as of this encounter Visit Diagnoses Diagnosis Hypokalemia Hypopotassemia documented in this encounter Additional Health Concerns Assessment Noted Time PHQ-9 Depression Total Score: 0 08/15/20 21 10:00 AM CDT documented as of this encounter Care Teams Vice President Global Digital Marketing Relationship Specialty Start Date End Date Victoriano Reid MD PCP - General Family Medicine 06/19/19 06/29/24 Elva Olivares DO 2 [facility] [address] [place] [address] PCP - General Family Medicine 07/01/24 [place], [facility] Architectural Draftsperson Scientific Programmer Analyst 11/03/24 Cabrera Yadav MD #[address] [address] Consulting Physician Urology 11/07/24 documented as of this encounter
--- OUTSIDE RECORDS SUMMARY | 2025-01-26 17:59 | XMS_ITS | Encounter Summary ---
Author Organization [facility] Address [address] [facility] [place] [address] Phone Care Team Providers Care Television Camera Operator Name Role Phone Victoriano Reid MD Primary Care Provider [phone] Elva Olivares DO Primary Care Provider [phone] [place] ENVIRONMENTAL FIELD OFFICE MANAGER Unavailable Unavai Cabrera Dodge MD Unavailable [phone] Encounter Details Date Type Department Care Team (Late st Contact Info) Description 01/23/2024 Lab Requisition [facility] Laboratory Services 1 [place] [id number] Victoriano Reid MD #1 [place] [address] Urinary tract infection, site not specified Social History Tobacco Use Types Packs/Day Years Used Date Smoking Tobacco: Every Day Cigarettes Smokeless Tobacco: Never Alcohol Use Standard Drinks/Week Comments Not Currently 0 (1 standard drink = 0.6 oz pur e alcohol) [facility] Utilities Answer Date Recorded In [...] any clubs o r organizations such as jainism groups, unions, fraternal or athletic groups, or [...] 12/14 [facility] - [...] place to sleep or slept in a penitentiary (including now)? No 12/20/2023 Education Answer Date [...] Description 01/28/2025 10:30 AM CDT Clinical Support [facility] UROLOGY #2 [place] [address] Nurse, Ken Urology 02/02/2025 11:00 AM CDT Appointment [facility] CT 1 [facility] [place] [address] Cabrera Yadav MD #2 SHANELLE MCMILLAN [facility] [address] [place] [address] Discharge Disposition: Discharged to home or Selfcare 02/10/2025 3:00 PM CDT Appointment [facility] Mammography 1 [facility] [place] [address] Elva Olivares, DO 2 [facility] BENOIT MCMILLAN [facility]. [address] [place] [address] Discharge Disposition: Discharged to home or Selfcare 02/10/2025 4:00 PM CDT [facility] [address] [place] [address] Elva Olivares, DO 2 [facility] BENO[place] MCMILLAN [facility] [address] [place] [address] Discharge Disposition: Discharged to home or Selfcare 02/17/2025 1:40 PM CDT Hospital [facility] Per[facility] 1 [facility] [place] [address] Cabrera Yadav MD #[address] [address] 02/17/2025 1:40 PM CDT - 02/17/2025 3:10 PM CDT [facility] Periop 1 [facility] [place] [address] Cabrera Yadav MD #[address] [address] CYSTOSCOPY AND LITHOLAPAXY, PATIENT WILL NEED A PAUL LIFT 03/02/2025 8:40 AM CDT Office Visit [facility] Medical Group - Family Medicine [facility] #2 [place] [address] Elva Olivares, DO 2 [facility] [address] [place] [address] Scheduled Procedures Name Priority Associated Diagnoses Date/Ti [...] CULTURE, URINE (01/23/2024 2:45 PM CDT) Pathologist [facility] CULTURE RESULTS ENTEROCOCCUS FAECALIS 01/25/2024 9:08 PM CDT [facility] Urine Non-Phlebotomy Collection / Unknown 01/23/2024 2:45 PM CDT 01/23/2024 3:40 PM CDT Narrative [facility] - 01/25/2024 9:08 PM CDT Susceptibility not performed on enterococcus species. Due to high achievable concentrations in urine, Ampicillin is the drug of choice for treating infections limited to the lower urinary tract (regardless of Vancomycin susceptibility). For allergic patients, Nitrofurantoin or a quinolone may be substituted. us Victoriano Reid MD MICROBIOLOGY - GENERAL ORDERABLE S Final Result [facility] [address] [place] [address], * (ABNORMAL) URINALYSIS REFLEX IF INDICATED BY ABNORMAL RESULTS (01/23/2024 2:45 PM CDT) Pathologist [facility] SPECIFIC GRAVITY 1.010 1.003 - 1.030 01/23/2024 [...] Negative Negative 01/23/2024 3:56 PM CDT [facility] URINE KETONES Negative Negative 01/23/2024 3:56 PM CDT [facility]OBILIN[facility]EN Normal Normal mg/dL 01/23/2024 3:56 PM CDT [facility] URINE BLOOD 250 /uL(A) Negative josefa/ul 01/23/2024 3:56 PM CDT [facility] URINALYSIS COLOR Yellow 01/23/20 24 3:56 PM CDT [facility] URINALYSIS CLARITY Slightly Cloudy 01/23/2024 3:56 PM CDT [facility] WBC (Urine) 11-20(A) Negative, 0-5 /hpf 01/23/2024 3:56 PM CDT [facility] URINE RBC'S 51-150(A) Negative, 0-2 /hpf 01/23/2024 3:56 PM CDT [facility] EPITHELIAL CELLS Small amount /lpf 2023 3:56 PM CDT [facility] BACTERIA, URINE Few(A) Negative /hpf 01/23/2024 3:56 PM CDT [facility] Urine Non-Phlebotomy Collection / Unknown 01/23/2024 2:45 PM CDT 01/23/2024 3:40 PM CDT us Victoriano Reid MD URINE ORDERABLES Final Result [facility] #1 [place] [address] documented in this encounter Visit Diagnoses Diagnosis Urinary tract infection, site not specified documented in this encounter Additional Health Concerns Assessment Noted Time PHQ-9 Depression Total Score: 0 08/15/20 21 10:00 AM CDT documented as of this encounter Care Teams Television Camera Operator Relationship Specialty Start Date End Date Victoriano Reid MD PCP - General Family Medicine 06/19/19 06/29/24 Elva Olivares DO 2 [facility] BENO[place] MCMILLAN [facility] [address] [place] [address] PCP - General Family Medicine 07/01/24 [place], [facility] Photovoltaic Fabrication Technician Children'S Counselor 11/03/24 Cabrera Yadav MD #2 SHANELLE MCMILLAN [facility] [address] [place] [address] Consulting Physician Urology 11/07/24 documented as of this encounter
--- OUTSIDE RECORDS SUMMARY | 2025-01-26 17:59 | XMS_ITS | Encounter Summary ---
Author Organization [facility] Address [address] [place] [address] Phone Care Team Providers Care Automation Qa Tester Name Role Phone Victoriano Reid MD Primary Care Provider [phone] Malissa Joe RN Unavailable Unavailable Malissa Joe RN Unavailable Unavailable Elva Olivares DO Primary Care Provider [phone] [place] [facility] Unavailable Cabrera Smallwood MD Unavailable [phone] Reason for Visit * Reason Comments Medication Refill Encounter Details Date Type Department Care Team (Late st Contact Info) Description 10/21/2023 Refill [facility] Medical Group - Family Medicine [facility] #2 [place] [address] Victoriano Reid MD #1 [place] [address] Medication Refill Social History Tobacco Use Types Packs/Day Years Used Date Smoking Tobacco: Every Day Cigarettes Smokeless Tobacco: Never Alcohol Use Standard Drinks/Week Comments Not Currently 0 (1 standard drink = 0.6 oz pur e alcohol) [facility] Utilities Answer Date Recorded In the [...] often do you attend chur ch or synagogue services? Never 10/22/2023 Do you belong to [...] place to sleep or slept in a retirement (including now)? No 10/22/2023 Education Answer Date [...] of Assessment Author 0 10/22/2023 10:19 PM MANAGER CATH LAB [employer] Background * Within the last year, have you been humiliated or emotionally abused in other ways by your partner or ex-partner? Answer Date of Assessment Author No 10/22/2023 10:19 PM MANAGER CATH LAB [employer], [facility] Background * Within the last year, have you been afraid of your partner or ex-partner? Answer Date of Assessment Author No 10/22/2023 10:19 PM MANAGER CATH LAB [employer] Background * Within the last year, have you been raped or forced to have any kind of sexual activity by your partner or ex-partner? Answer Date of Assessment Author No 10/22/2023 10:19 PM MANAGER CATH LAB [employer] Background * Within the last year, have you been kicked, hit, slapped, or otherwise physically hurt by your partner or ex-partner? Answer Date of Assessment Author No 10/22/2023 10:19 PM MANAGER CATH LAB [employer] [facility] Background * Q1: How often do you have a drink containing alcohol? Answer Date of Assessment Author Never 10/22/2023 10:19 PM MANAGER CATH LAB [employer] Background * Q2: How many drinks containing alcohol do you have on a typical day when you are drinking? Answer Date of Assessment Author Patient does not drink 10/22/2023 10:19 PM MANAGER CATH LAB [employer], [facility] Background * Q3: How often do you have six or more drinks on one occasion? Answer Date of Assessment Author Never 10/22/2023 10:19 PM MANAGER CATH LAB [employer], [facility] Background documented as of this encounter Miscellaneous Notes * Telephone Encounter - Adelaida Medina RN - 10/21/2023 5:45 PM MANAGER CATH LAB Medication failed the protocol, provider to review [...] Dept 03/29/23 Office Visit Victoriano Reid MD [facility] Ken Showing recent visits within past 365 days and meeting all other requirements Future Appointments Date Type Provider Dept 10/23/23 Appointment Miriam Prasad, TESTING CONSULTANT, SEISMOGRAPH COMPUTER [facility] Ken 12/21/23 Appointment Victoriano Reid MD [facility] Ken Showing future appointments within next 90 days and meeting all other requirements [facility] CATH LAB documented in this encounter Plan of Treatment Upcoming Encounters Date Type Department Care Team (Latest Contact Info) Description 01/28/2025 10:30 AM CDT Clinical Support [facility] UROLOGY #2 [place] [address] NurseKen Urology 02/02/2025 11:00 AM CDT [facility] [address] [place] [address] Cabrera Yadav MD #2 [facility] [address] [place] [address] Discharge Disposition: Discharged to home or Selfcare 02/10/2025 3:00 PM CDT [facility] Mamm[facility] [address] [place] [address] Elva Olivares, DO 2 [facility] [address] [place] [address] Discharge Disposition: Discharged to home or Selfcare 02/10/2025 4:00 PM CDT [facility] 1 [facility] [place] [address] Elva Olivares, DO 2 [facility] [address] [address] Discharge Disposition: Discharged to home or Selfcare 02/17/2025 1:40 PM CDT Hospital [facility] Periop 1 [facility] [place] [address] Cabrera Yadav MD #2 [facility] [address] [address] 02/17/2025 1:40 PM CDT - 02/17/2025 3:10 PM CDT [facility] 1 [facility] [place] [address] Cabrera Yadav MD #[address] [address] CYSTOSCOPY AND LITHOLAPAXY, PATIENT WILL NEED A PAUL LIFT 03/02/2025 8:40 AM CDT Office Visit [facility] Family [facility] #2 [place] [address] Elva Olivares DO 2 [facility] [address] [place] [address] Scheduled Procedures Name Priority Associated Diagnoses Date/Ti [...] documented as of this encounter Care Teams Automation Qa Tester Relationship Specialty Start Date End Date Victoriano Reid MD PCP - General Family Medicine 06/19/19 06/29/24 Elva Olivares DO 2 [facility] [address] [place] [address] PCP - General Family Medicine 07/01/24 Malissa Joe, RN [place] Nurse Dry House Operator 12/03/23 12/03/23 Malissa Joe RN [place] Nurse Dry House Operator 12/05/23 12/05/23 [place], [facility] Foreign Food Specialty Cook Dry House Operator 11/03/24 Cabrera Yadav MD #[address] [address] Consulting Physician Urology 11/07/24 documented as of this encounter
--- OUTSIDE RECORDS SUMMARY | 2025-01-26 17:59 | XMS_ITS | Encounter Summary ---
Author Organization [facility] Address [address] [place] [address] Phone Care Team Providers Care Ict Support Technicians Name Role Phone Victoriano Reid MD Primary Care Provider [phone] Elva Olivares DO Primary Care Provider [phone] [place] [facility] Unavailable Cabrera Smallwood MD Unavailable [phone] Reason for Visit * Reason Comments Medication Refill Encounter Details Date Type Department Care Team (Late Contact Info) Description 02/22/2024 Refill [facility] Medical Group - Family Medicine [facility] #2 [place] [address] Victoriano Reid MD #1 [place] [address] Medication Refill Social History Tobacco Use Types Packs/Day Years Used Date Smoking Tobacco: Every Day Cigarettes Smokeless Tobacco: Never Alcohol Use Standard Drinks/Week Comments Not Currently 0 (1 standard drink = 0.6 oz pur e alcohol) [facility] Utilities Answer Date Recorded In [...] any clubs o r organizations such as presybeterian groups, unions, fraternal or athletic groups, or [...] Total Score - Questions 1-9 0 12/14 [facility] of Occupat ional Health - Occupational [...] Pending Prescriptions Disp Refills ergocalciferol (VITAMIN D) 65850 UNIT Capsule [Pharmacy Med Name: VITAMIN D2 [...] MD [facility] 10/23/23 Telemedicine Miriam Prasad, HEAD STOCK TRANSFER CLERK, [facility] Ken 03/29/23 Office Visit Victoriano Reid MD [facility] [...] Description 01/28/2025 10:30 AM CDT Clinical Support [facility] UROLOGY #2 [place] [address] Nurse, Ken Urology 02/02/2025 11:00 AM CDT [facility] 1 [place] [address] Cabrera Yadav MD #2 [facility] [address] [place] [address] Discharge Disposition: Discharged to home or Selfcare 02/10/2025 3:00 PM CDT [facility] 1 [place] [address] Elva Olivares, DO 2 [facility] [address] [place] [address] Discharge Disposition: Discharged to home or Selfcare 02/10/2025 4:00 PM CDT [facility] Ul[facility] 1 [place] [address] Elva Olivares, DO 2 [facility] [address] [place] [address] Discharge Disposition: Discharged to home or Selfcare 02/17/2025 1:40 PM CDT Hospital [facility] Periop 1 [place] [address] Cabrera Yadav MD #2 [facility] [address] [place] [address] 02/17/2025 1:40 PM CDT - 02/17/2025 3:10 PM CDT [facility] 1 [facility] [place] [address] Cabrera Yadav MD #[address] [address] CYSTOSCOPY AND LITHOLAPAXY, PATIENT WILL NEED A PAUL LIFT 03/02/2025 8:40 AM CDT Office Visit [facility] Medical Group - Family Medicine [facility] #2 [place] [address] Elva Olivares DO 2 [facility] [address] [address] Scheduled Procedures Name Priority Associated Diagnoses Date/Ti me CYSTOSCOPY BLADDER STONE BLADDER STONES 02/17/2025 1:40 PM CDT documented as of this encounter Visit Diagnoses Diagnosis Vitamin D deficiency Unspecified vitamin D deficiency documented in this encounter Additional Health Concerns Assessment Noted Time PHQ-9 Depression Total Score: 0 08/15/20 21 10:00 AM CDT documented as of this encounter Care Teams Ict Support Technicians Relationship Specialty Start Date End Date Victoriano Reid MD PCP - General Family Medicine 06/19/19 06/29/24 Elva Olivares DO 2 [facility] [address] [place] [address] PCP - General Family Medicine 07/01/24 [place], [facility] Tire Mounter Grievance And Appeals Specialist 11/03/24 Cabrera Yadav MD #2 NETTIE MEADOWS, [address] [address] Consulting Physician Urology 11/07/24 documented as of this encounter
--- OUTSIDE RECORDS SUMMARY | 2025-01-26 17:59 | XMS_ITS | Continuity of Care Document ---
Author Organization [facility] Address [address] [place] [address] [place] [address] Phone Care Team Providers Care Cemetery Laborer Name Role Phone Jason Tejada MD Unavailable Unavailable Procedures Procedure Date Eye Exam & Treatment Advance Directives Directive Yes / No Effective Date File Name No Information Encounters Encounter Description Practice Location Reason(s) For Visit Diagnoses Date Provider Providers Copied on Encounter [facility], [id number] [place] [address] [address], [place], [place], [id number], [place] tel:[phone] [facility] No Information 4-200 7 Mallory Gomez. [address] [facility] [address], [place], [place], [address], [place]. tel:[phone] Family History Family Member Type Diagnosis Age At Onset No Information Payers Payer name Insurance type Covered green party ID Authoriza tion(s) Medicaid [facility] [id number] Social History Type Description Quantity Date Captured [...]
--- OUTSIDE RECORDS SUMMARY | 2025-01-26 17:59 | XMS_ITS | Encounter Summary ---
Author Organization [facility] Address [address] [place] [address] Phone Care Team Providers Care [employer] Professional Name Role Phone Victoriano Reid MD Primary Care Provider [phone] Malissa Joe RN Unavailable Unavailable Malissa Joe RN Unavailable Unavailable Elva Olivares DO Primary Care Provider [phone] [place] BACK TUFTER Unavailable UnaCabrera Nevarez MD Unavailable [phone] Reason for Visit * Reason Comments Medication Refill Encounter Details Date Type Department Care Team (Late st Contact Info) Description 03/24/2021 Refill [facility] #2 [place] [address] Sathish Loomis MD #[address] [address] Medication Refill Social History Tobacco Use Types [...] Outpatient Visits 1 month ago Paraplegia (HCC) [facility] - Victoriano Beck MD 7 months ago Acute cystitis with hematuria [facility] Victoriano Beck MD 1 year ago Paralysis of both lower limbs (HCC) [facility] Victoriano Toledo MD 1 year ago Uncontrolled type 2 diabetes mellitus with hyperglycemia ([facility]) [facility] Victoriano Toledo MD 1 year ago Spinal cord compression due to malignant neoplasm metastatic to spine ([facility]) [facility] Victoriano Toledo MD Upcoming Appointments Future Appointments In 4 days Lissy Silva MSW [facility] In 5 days Nenita Fernandes LPN [facility] In 1 week Sharonda Carrion PTA [facility] 1 week Nenita Fernandes, NUTRIENT MANAGEMENT SPECIALIST [facility] In 2 weeks Nenita Fernandes LPN [facility] In 3 weeks Nenita Fernandes LPN [facility] In 1 month Naa Rios RN [facility] INSTRUCTIONAL MATERIAL DIRECTOR - Recent and Past Visits Recent Visits Date Type Provider Dept 02/14/21 Telemedicine Victoriano Reid MD [facility] 08/06/20 Telemedicine Victoriano Reid MD [facility] 01/22/20 Telemedicine Victoriano Reid MD [facility] Ken Showing recent visits within past [...] Description 01/28/2025 10:30 AM CDT Clinical Support [facility] UROLOGY #2 [place] [address] NurseKen Urology 02/02/2025 11:00 AM CDT [facility] [address] [place] [address] Cabrera Yadav MD #[address] [address] Discharge Disposition: Discharged to home or Selfcare 02/10/2025 3:00 PM CDT Appointment [facility] Mammography 1 [place] [address] Elva Olivarse, DO 2 [facility] [address] [place] [address] Discharge Disposition: Discharged to home or Selfcare 02/10/2025 4:00 PM CDT [facility] 1 [place] [address] Elva Olivares, DO 2 [facility] [address] [place] [address] Discharge Disposition: Discharged to home or Selfcare 02/17/2025 1:40 PM CDT [facility] 1 [place] [address] Cabrera Yadav MD #[address] [address] 02/17/2025 1:40 PM CDT - 02/17/2025 3:10 PM CDT [facility] 1 [place] [address] Cabrera Yadav MD #[address] [address] CYSTOSCOPY AND LITHOLAPAXY, PATIENT WILL NEED A PAUL LIFT 03/02/2025 8:40 AM CDT Office Visit [facility] Medical Group - Family Medicine [facility] #2 [place] [address] Elva Olivares DO [address] [address] Scheduled Procedures Name Priority Associated Diagnoses Date/Ti me CYSTOSCOPY BLADDER STONE BLADDER STONES 02/17/2025 1:40 PM CDT documented as of this encounter Visit Diagnoses Diagnosis Muscle spasm Spasm of muscle documented in this encounter Additional Health Concerns Infection Onset Date Last Indicated Resolved Time 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 BENOIT MEADOWS [facility]. [address] [place] [address] PCP - General Family Medicine 07/01/24 Malissa Joe, RN [place] Nurse Field Laboratory Operator 12/03/23 12/03/23 Malissa Joe, RN [place] Nurse Field Laboratory Operator 12/05/23 12/05/23 [place], [facility] Dog Trainer Field Laboratory Operator 11/03/24 Cabrera Yadva MD #2 [facility] [address] [place] [address] Consulting Physician Urology 11/07/24 documented as of this encounter
--- OUTSIDE RECORDS SUMMARY | 2025-01-26 17:59 | XMS_ITS | Encounter Summary ---
Author Organization [facility] Address [address] [place] [address] Phone Care Team Providers Care Portainer Operator Name Role Phone Victoriano Reid MD Primary Care Provider [phone] Elva Olivares DO Primary Care Provider [phone] [place] [facility] Unavailable Cabrera Smallwood MD Unavailable [phone] Reason for Visit * Reason Comments Medication Refill Encounter Details Date Type Department Care Team (Late Contact Info) Description 02/18/2024 Refill [facility] Medical Group - Family Medicine [facility] #[address] [place] [address] Victoriano Reid MD [address]1 [place] [address] Medication Refill Social History Tobacco Use Types Packs/Day Years Used Date Smoking Tobacco: Every Day Cigarettes Smokeless Tobacco: Never Alcohol Use Standard Drinks/Week Comments Not Currently 0 (1 standard drink = 0.6 oz pur e alcohol) [facility] Utilities Answer Date Recorded In [...] often do you attend chur ch or christian services? Never 12/20/2023 Do you belong to any clubs o r organizations such as yazidi groups, unions, fraternal or athletic groups, or [...] [place] 10/23/23 Telemedicine Miriam Prasad APRN, LORI [facility] 03/29/23 Office Visit Victoriano Reid MD [facility] Showing recent visits within past 365 [...] [place] 10/23/23 Telemedicine Miriam Prasad APRN, LORI [facility] Ken 03/29/23 Office Visit Victoriano Reid MD [...] [place] 10/23/23 Telemedicine Miriam Prasad APRN, LORI [facility] Ken 03/29/23 Office Visit Victoriano Reid MD [...] 01/28/2025 10:30 AM CDT Clinical Support [facility] UROLOGY #2 [place] [address] Nurse, Ken Urology 02/02/2025 11:00 AM CDT Appointment [facility] 1 [facility] [place] [address] Cabrera Yadav MD #[address] [address] Discharge Disposition: Discharged to home or Selfcare 02/10/2025 3:00 PM CDT Appointment [facility] Mammography 1 [facility] [place] [address] Elva Olivares, DO 2 [facility] [address] [facility] [address] [place] [address] Discharge Disposition: Discharged to home or Selfcare 02/10/2025 4:00 PM CDT [facility] Ul[facility] 1 [facility] [place] [address] Elva Olivares, DO 2 [facility] [address] M[place]ILLAN [facility] [address] [place] [address] Discharge Disposition: Discharged to home or Selfcare 02/17/2025 1:40 PM CDT Hospital [facility] Periop 1 [facility] [place] [address] Cabrera Yadav MD #2 [facility] [address] [address] 02/17/2025 1:40 PM CDT - 02/17/2025 3:10 PM CDT Surgery [facility] Periop 1 [facility] [place] [address] Cabrera Yadav MD [address] [address] CYSTOSCOPY AND LITHOLAPAXY, PATIENT WILL NEED A PAUL LIFT 03/02/2025 8:40 AM CDT Office Visit [facility] Medical Group - Family Medicine - [place] #2 [address] [place] [address] Elva Olivares, DO 2 Magda M[address] [facility] [address] [place] [address] Scheduled Procedures Name Priority Associated Diagnoses Date/Ti [...] documented as of this encounter Care Teams Portainer Operator Relationship Specialty Start Date End Date Victoriano Reid MD PCP - General Family Medicine 06/19/19 06/29/24 Elva Olivares DO 2 [facility] [address] [facility] [address] [place] [address] PCP - General Family Medicine 07/01/24 [place], [facility] Surgical Orderly Practice Consultant 11/03/24 Cabrera Yadav MD #2 [facility] [address] [place] [address] Consulting Physician Urology 11/07/24 documented as of this encounter
--- OUTSIDE RECORDS SUMMARY | 2025-01-26 17:59 | XMS_ITS | CONTINUITY OF CARE DOCUMENT ---
Author Name tram ugalde Address Unknown Organization [facility] Address [address] [place] [address] Phone [phone] Care Team Providers Care Baker Test Name Role Phone Nicki Vickers MD Unavailable Victoriano Reid MD Unavailable [phone] Victoriano Reid MD Unavailable [phone] INSURANCE PROVIDERS Payer name Policy type / Coverage type [place] party ID [place] MEDICAID Medicaid [id number]
--- OUTSIDE RECORDS SUMMARY | 2025-01-26 17:59 | XMS_ITS | Encounter Summary ---
Author Organization [facility] Address [address] [place] [address] Phone Care Team Providers Care Junior Financial Analyst Name Role Phone Victoriano Reid MD Primary Care Provider [phone] Malissa Joe RN Unavailable Unavailable Malissa Joe RN Unavailable Unavailable Elva Olivares DO Primary Care Provider [phone] [place] [employer] Unavailable Unaabdirizaki Cabrera Dodge MD Unavailable [phone] Encounter Details Date Type Department Care Team (Late st Contact Info) Description 03/29/2021 Lab Requisition [facility] Laboratory Services [address] [place] [id number] Victoriano Reid MD #1 [place] [address] Acute cystitis without hematuria; Neuromuscular dysfunction of [...] Description 01/28/2025 10:30 AM CDT Clinical Support [facility] UROLOGY #2 [place] [address] Nurse, Ken Urology 02/02/2025 11:00 AM CDT [facility]ment [facility] [place] [address] Cabrera Yadav MD #2 [facility] [address] [place] [address] Discharge Disposition: Discharged to home or Selfcare 02/10/2025 3:00 PM CDT Appointment [facility] Mammography [address] [place] [address] Elva Olivares, DO 2 [facility] [address] [place] [address] Discharge Disposition: Discharged to home or Selfcare 02/10/2025 4:00 PM CDT Appointment [facility] Ultrasound 1 [facility] [address] Elva Olivares, DO 2 [facility] [address] [place] [address] Discharge Disposition: Discharged to home or Selfcare 02/17/2025 1:40 PM CDT Hospital Encounter [facility] Periop 1 [facility] [address] Cabrera Yadav MD #2 [facility] [address] [place] [address] 02/17/2025 1:40 PM CDT - 02/17/2025 3:10 PM CDT Surgery [facility] Periop [address] [place] [address] Cabrera Yadav MD #2 SHANELLE MCMILLAN, [facility] [address] [place] [address] CYSTOSCOPY AND LITHOLAPAXY, PATIENT WILL NEED A PAUL LIFT 03/02/2025 8:40 AM CDT Office Visit [facility] Medical Group - Family Medicine - [place] [address] [place] [address] Elva Olivares, DO 2 [facility]. [address] [place] [address] Scheduled Procedures Name Priority Associated Diagnoses Date/Ti [...] S, COAGULASE NEGATIVE 03/30/2021 8:24 PM CDT [facility] Comment:NO FURTHER WORKUP PE RFORMED Culture No Phlebotomy Charged / Unknown 03/29/2021 11:30 AM CDT 03/29/2021 1:04 PM CDT us Victoriano Reid MD MICROBIOLOGY - GENERAL ORDERABLE S Final Result [facility] [address] [place] [address], [place] * (ABNORMAL) URINALYSIS REFLEX IF INDICATED BY ABNORMAL RESULTS (03/29/2021 11:30 AM CDT) SPECIFIC GRAVITY 1.010 1.003 - 1.030 03/29/2021 1:31 PM CDT [facility] URINE PH 8.0 5.0 - 9.0 03/29/2021 1:31 PM CDT [facility] WBC ESTERASE 500 /uL(A) Negative 03/29/2021 1:31 PM CDT [facility] NITRITE Positive(A) Negative 03/29/2021 1:31 PM CDT [facility] PROTEIN, RANDOM URINE 100 mg/dL(A) Negative 03/29/2021 1:31 PM CDT [facility] URINE GLUCOSE, QUAL Negative Negative 03/29/2021 1:31 PM CDT [facility] URINE KETONES Negative Negative 03/29/2021 1:31 PM CDT [facility] UROBILINOGEN Normal Normal mg/dL 03/29/2021 1:31 PM CDT [facility] URINE BILIRUBIN Negative Negative 1:31 PM CDT [facility] URINE BLOOD 250 /uL(A) Negative josefa/ul 03/29/2021 1:31 PM CDT [facility] URINALYSIS COLOR Yellow 03/29/2021 1:31 PM CDT [facility] URINALYSIS CLARITY Slightly Cloudy 03/29/2021 1:31 PM CDT [facility] WBC (Urine) 6-10(A) Negative, 0-5 /hpf 03/29/2021 1:31 PM CDT [facility] URINE RBC'S 21-50(A) Negative, 0-2 /hpf 03/29/2021 1:31 PM CDT [facility] EPITHELIAL CELLS Occasional /lpf 03/29/2021 1:31 PM CDT [facility] BACTERIA, URINE Few(A) Negative /hpf 03/29/2021 1:31 PM CD[address] [facility] CRYSTALS Triple phosphate 03/29/2021 1:31 PM CD[address] 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 06/05/2019 04/15/2021 7:28 AM CDT Assessment Noted Time PHQ-9 Depression Total Score: 0 10/24/19 11:16 AM MANAGER STRATEGIC documented as of this encounter Care Teams Junior Financial Analyst Relationship Specialty Start Date End Date Victoriano Reid MD PCP - General Family Medicine 06/19/19 06/29/24 Elva Olivares DO 2 [facility] [address] [address] PCP - General Family Medicine 07/01/24 Malissa Joe, RN [place] Nurse Yeast Washer 12/03/23 12/03/23 Malissa Joe, RN [place] Nurse Yeast Washer 12/05/23 12/05/23 [place], [employer] [place] Astro Technician Yeast Washer 11/03/24 Cabrera Yadav MD #[address] [place] [address] Consulting Physician Urology 11/07/24 documented as of this encounter
--- OUTSIDE RECORDS SUMMARY | 2025-01-26 17:59 | XMS_ITS | Encounter Summary ---
Author Organization [facility] Address [address] [facility] [place] [address] Phone Care Team Providers Care Universal Winding Machine Operator Name Role Phone Victoriano Reid MD Primary Care Provider [phone] Elva Olivares DO Primary Care Provider [phone] [place] MANAGER LPN Unavailable Unavai Cabrera Dodge MD Unavailable [phone] Encounter Details Date Type Department Care Team (Late st Contact Info) Description 05/27/2024 Lab Requisition [facility] Laboratory Services 1 [place] [address] Singh Myrick, KARISSA, PI/SENIOR RESEARCH ASSOCIATE [address] [place] [address] Type 2 diabetes mellitus without complications (HCC); Other custodial (current) drug therapy Social History Tobacco Use [...] any clubs o r organizations such as temple groups, unions, fraternal or athletic groups, or [...] 0 12/14 [facility] - Occupational Stress Questionnaire Answer Date [...] in a jail (including now)? No 12/20/2023 Housing Stability Vital Sign Answer Saleem e Recorded In the last 12 months, was t here a time when you were not able to pay the mortgage or rent on time? No 04/15/2024 Number of Times Moved in the Last Year Not on fi le 04/15/2024 At any time in the past 12 m [facility], were you homeless or living in a jail (including now)? No 04/15/2024 Education Answer Date [...] Description 01/28/2025 10:30 AM CDT Clinical Support [facility] UROLOGY #[address] [place] [address] Nurse, Ken Urology 02/02/2025 11:00 AM CDT [facility]ointment [facility] CT [address] [place] [address] Cabrera Yadav MD #2 [address], MARY [address] [place] [address] Discharge Disposition: Discharged to home or Selfcare 02/10/2025 3:00 PM CDT Appointment [facility] Mammography [address] [place] [address] Elva Olivares, DO 2 [facility] [address] MCMILLAN [facility] [address] [place] [address] Discharge Disposition: Discharged to home or Selfcare 02/10/2025 4:00 PM CDT Appointment [facility] Ultrasound 1 [facility] [address] Elva Olivares, DO 2 [facility] [address] [place] [address] Discharge Disposition: Discharged to home or Selfcare 02/17/2025 1:40 PM CDT Hospital [facility] Per[facility] [address] [place] [address] Cabrera Yadav MD #[address] [address] 02/17/2025 1:40 PM CDT - 02/17/2025 3:10 PM CDT Surgery [facility] Periop 1 [facility] [place] [address] Cabrera Yadav MD #[address] [address] CYSTOSCOPY AND LITHOLAPAXY, PATIENT WILL NEED A PAUL LIFT 03/02/2025 8:40 AM CDT Office Visit [facility] Medical Group - Family Medicine [facility] #2 [facility] [address] Elva Olivares, DO 2 [facility] MARY OJEDA. [address] [place] [address] Scheduled Procedures Name Priority Associated Diagnoses Date/Ti me CYSTOSCOPY BLADDER STONE BLADDER STONES 02/17/2025 1:40 PM CDT documented as of this encounter Procedures Procedure Name Priority Date/Time Associated Diagnosis Comments CBC WITH AUTO DIFFERENTIAL Routine 05/27/2024 1:00 PM CDT Type 2 diabetes mellitus without complications (HCC) Other custodial (current) drug therapy UR MICROALBUMIN/CREATIN INE RATIO RANDOM Routine 05/27/2024 1:00 PM CDT Type 2 diabetes mellitus without complications (HCC) Other ad terminal makeup operator (current) drug therapy LIPID PANEL Routine 05/27/2024 1:00 PM CDT Type 2 diabetes mellitus without complications (HCC) Other custodial (current) drug therapy CMP (COMPREHENSIVE METABOLIC PANEL) Routine 05/27/2024 1:00 PM CDT Type 2 diabetes mellitus without complications (HCC) Other ad terminal makeup operator (current) drug therapy COMPLETE BLOOD COUNT (CBC) WITH DIFF Routine 05/27/2024 1:00 PM CDT Type 2 diabetes mellitus without complications (HCC) Other ad terminal makeup operator (current) drug therapy documented in this encounter Results * (ABNORMAL) CBC WITH AUTO DIFFERENTIAL (05/27/2024 1:00 PM CDT) WBC 9.90 4.00 - 12.00 10(3)/mcL 05/27/2024 2:52 PM CDT [facility] RBC 4.48 3.80 - 5.30 10(6)/mcL 05/27/2024 2:52 PM CDT [facility] HEMOGLOBIN (HGB) 14.8 12.0 - 15.8 g/dL 05/27/2024 2:52 PM CDT [facility] HEMATOCRIT (HCT) 45.0 36.0 - 47.0 % 05/27/2024 2:[address] MCV 100.4(H) 82.0 - 96.0 fL 05/27/2024 2:[address] MCH 33.0 26.0 - 34.0 pg 05/27/2024 2:[address] MCHC 32.9 31.0 - 36.0 g/dL 05/27/2024 2:[address] PLATELET COUNT 160 140 - 440 10(3)/mcL 05/27/2024 2:[address] RDW 14.9 11.8 - 15.5 % 05/27/2024 2:[address] MPV 12.0 9.7 - 12.4 fL 05/27/2024 2:52 PM CDT [facility] NEUTROPHILS 54.2 47.0 - 73.0 % 05/27/2024 2:52 PM CDT [facility] LYMPHOCYTES 35.4 18.0 - 42.0 % 05/27/2024 2:[address] MONOCYTES 7.1 4.0 - 12.0 % 05/27/2024 2:52 PM CDT [facility] EOSINOPHILS 2.5 0.0 - 5.0 % 05/27/2024 2:[address] BASOPHILS 0.8 0.0 - 1.0 % 05/27/2024 2:[address] ABSOLUTE NEUTROPHILS 5.37 1.60 - 7.70 10(3)/mcL 05/27/2024 2:[address] ABSOLUTE LYMPHOCYTES 3.50(H) 1.30 - 3.20 10(3)/mcL 05/27/2024 2:[address] ABSOLUTE MONOCYTES 0.70 0.20 - 1.00 10(3)/mcL 05/27/2024 2:[address] ABSOLUTE EOSINOPHIL 0.25 0.00 - 0.40 10(3)/mcL 05/27/2024 2:[address] ABSOLUTE BASOPHILS 0.08 0.00 - 0.10 10(3)/mcL 05/27/2024 2:[address] NRBC PER 100 WBC 0 05/27/20 2:[address] Blood No Phlebotomy Charged / Unknown 05/27/2024 1:00 PM CDT 05/27/2024 2:30 PM CDT Singh Myrick APRN, CNP HEMATOLOGY ORDER SERVANDO Final Result Performing Organization Address [facility] Co de Phone Number [facility] #1 [place] [address] * (ABNORMAL) UR MICROALBUMIN/CREATININE RATIO RANDOM (05/27/2024 1:00 PM CDT) RAN UR MICROALBUMIN 0.89 mg/dL 05/27/2024 3:[address] Comment:No reference range h as been established. Consider Clinical Correlation. CREATININE URINE 7.4 mg/dL 05/27/20 3:00 PM CDT [facility] Comment:No reference range h as been established. Consider Clinical Correlation. ALB/CREAT RATIO 120(H) 0 - 30 mg/g CRE 05/27/2024 3:[address] [facility] Urine Non-Phlebotomy Collection / Unknown 05/27/2024 1:00 PM CDT 05/27/2024 2:30 PM CDT Singh Myrick APRN, LORI URINE ORDERABLES Final Result Performing Organization Address [facility]/ZIP Co de Phone Number [facility] #[address] [place] [address] * LIPID PANEL (05/27/2024 1:00 PM CDT) CHOLESTEROL 158 <200 mg/dL 05/27/2024 3:[address] [facility] TRIGLYCERIDES 95 <150 mg/dL 05/27/2024 3:[address] HDL CHOLESTEROL 42 >40 mg/dL 3:[address] [facility] LDL 97 <130 mg/dL 05/27/2024 3:[address] VLDL 19 10 - 50 mg/dL 05/27/2024 3:[address] CHOL/HDL RATIO 3.8 0.0 - 4.4 05/27/2024 3:[address] [facility] NON-HDL CHOLESTEROL 116 <130 mg/dL 05/27/2024 3:21 PM CDT [facility] Blood No Phlebotomy Charged / Unknown 05/27/2024 1:00 PM CDT 05/27/2024 2:30 PM CDT us Singh Myrick APRN, PI/SENIOR RESEARCH ASSOCIATE CHEMISTRY ORDERA BLES Final Result [facility] #1 [place] [address] * (ABNORMAL) CMP (COMPREHENSIVE METABOLIC PANEL) (05/27/2024 1:00 PM CDT) SODIUM 141 136 - 145 mmol/L 05/27/2024 3:[address] POTASSIUM 4.1 3.5 - 5.1 mmol/L 05/27/2024 3:[address] CHLORIDE 107 98 - 107 mmol/L 05/27/2024 3:[address] CO2, VENOUS 26 22 - 30 mmol/L 05/27/2024 3:[address] ANION GAP 12.1 <18.0 mmol/L 05/27/2024 3:21 PM T [facility] GLUCOSE 128(H) 70 - 99 mg/dL 05/27/2024 3:21 PM [facility] BUN 16 10 - 20 mg/dL 05/27/2024 3:21 PM [facility] CREATININE, BLOOD 0.72 0.60 - 1.00 mg/dL 05/27/2024 3:21 PM [facility] BUN/CREATININE RATIO 22(H) 12 - 20 ratio 05/27/2024 3:21 PM [facility] TOTAL PROTEIN 7.0 6.3 - 8.2 g/dL 05/27/2024 3:21 PM [facility] ALBUMIN 4.0 3.5 - 5.0 g/dL 05/27/2024 3:21 PM [facility] A/G RATIO 1.3 1.0 - 2.2 05/27/2024 3:21 PM [facility] CALCIUM 9.7 8.7 - 10.5 mg/dL 05/27/2024 3:21 PM [facility] T BILI 0.3 0.2 - 1.2 mg/dL 05/27/2024 3:21 PM [facility] SGOT (AST) 15 5 - 34 U/L 05/27/2024 3:21 PM [facility] SGPT (ALT) 9 0 - 55 U/L 05/27/2024 3:21 PM [facility] ALKALINE PHOSPHATASE 66 40 - 150 U/L 05/27/2024 3:21 PM [facility] GFR, ESTIMATED >60 >=60 05/27/2024 3:21 PM [facility] Comment: Creatinine Clearance is the preferred criteria for selecting drug dose adjustments in renally impaired patients. The GFR is provided as additional pertinent clinical information. GFR is reported in mL/min/1.73 sq m. Calculation based on the Chronic Kidney Disease Epidemiology Collaboration (CKD- EPI) equation refit without adjustment for race. GFR, EST. >60 >=60 024 3:21 PM CDT [facility] GFR, EST. NONAFRICAN >60 >=60 05/27/2024 3:21 PM CDT [facility] Blood No Phlebotomy Charged / Unknown 05/27/2024 1:00 PM CDT 05/27/2024 2:30 PM CDT us Singh Myrick SUTURE GAUGER, PI/SENIOR RESEARCH ASSOCIATE CHEMISTRY ORDERA BLES Final Result [facility] #[address] [place] [address] documented in this encounter Visit Diagnoses Diagnosis Type 2 diabetes mellitus without complications Type II or unspecified type diabetes mellitus without mention of complication, not stated as uncontrolled Other ad terminal makeup operator (current) drug therapy documented in this encounter Additional Health Concerns Assessment Noted Time PHQ-9 Depression Total Score: 0 08/15/20 21 10:00 AM CDT documented as of this encounter Care Teams Universal Winding Machine Operator Relationship Specialty Start Date End Date Victoriano Reid MD PCP - General Family Medicine 06/19/19 06/29/24 Elva Olivares DO [address] [facility] [address] [facility] [address] [place] [address] PCP - General Family Medicine 07/01/24 [place] [facility] Clasp Machine Operator Automobile Insurance Claim Examiner 11/03/24 Cabrera Yadav MD #2 [facility] [address] [place] [address] Consulting Physician Urology 11/07/24 documented as of this encounter
--- OUTSIDE RECORDS SUMMARY | 2025-01-26 18:00 | XMS_ITS | Encounter Summary ---
Author Organization [facility] Address [address] [place] [address] Phone Care Team Providers Care Shoe Reconditioner Name Role Phone Victoriano Reid MD Primary Care Provider [phone] Malissa Joe RN Unavailable Unavailable Malissa Joe RN Unavailable Unavailable Elva Olivares DO Primary Care Provider [phone] [place] HARDWARE ENGINEER Unavailable Cabrera Smallwood MD Unavailable [phone] Reason for Visit * Reason Comments Medication Refill Encounter Details Date Type Department Care Team (Late st Contact Info) Description 09/21/2023 Refill [facility] #2 [place] [address] Victoriano Reid MD #1 [place] [address] Medication Refill Social History Tobacco Use Types [...] 90 days and meeting all other requirements ETING PROJECT MANAGER documented in this encounter Plan of Treatment Upcoming Encounters Date Type Department Care Team (Latest Contact Info) Description 01/28/2025 10:30 AM CDT Clinical Support [facility] UR[facility]Y #2 [place] [address] NurseKen Urology 02/02/2025 11:00 AM CDT [facility] 1 [place] [address] Cabrera Yadav MD #[address] [address] Discharge Disposition: Discharged to home or Selfcare 02/10/2025 3:00 PM CDT Appointment [facility] Mammography 1 [place] [address] Elva Olivares, DO 2 [facility] 205 [place] [address] Discharge Disposition: Discharged to home or Selfcare 02/10/2025 4:00 PM CDT Appointment [facility] Ultrasound 1 [place] [address] Elva Olivares, DO 2 [facility] 205 [place] [address] Discharge Disposition: Discharged to home or Selfcare 02/17/2025 1:40 PM CDT [facility] Periop 1 [place] [address] Cabrera Yadav MD #2 [facility] [address] [place] [address] 02/17/2025 1:40 PM CDT - 02/17/2025 3:10 PM CDT [facility] Periop 1 [place] [address] Cabrera Yadav MD #[address] [address] CYSTOSCOPY AND LITHOLAPAXY, PATIENT WILL NEED A PAUL LIFT 03/02/2025 8:40 AM CDT Office Visit [facility] Medical Group - Family [facility] #2 [place] [address] Elva Olivares, DO 2 [facility] [address] [place] [address] Scheduled Procedures Name Priority Associated Diagnoses Date/Ti wi CYSTOSCOPY BLADDER STONE BLADDER STONES 02/17/2025 1:40 PM CDT documented as of this encounter Visit Diagnoses Diagnosis Allergic rhinitis, unspecified seasonality, unspecified trigger Neurogenic bladder Neurogenic bladder, NOS Painful bladder spasm Other symptoms involving urinary system documented in this encounter Additional Health Concerns Assessment Noted Time PHQ-9 Depression Total Score: 0 08/15/20 21 10:00 AM CDT documented as of this encounter Care Teams Shoe Reconditioner Relationship Specialty Start Date End Date Victoriano Reid MD PCP - General Family Medicine 06/19/19 06/29/24 Elva Olivares DO 2 [facility]. [address] [place] [address] PCP - General Family Medicine 07/01/24 Malissa Joe, RN [place] Nurse Landscape Laborer 12/03/23 12/03/23 Malissa Joe, RN [place] Nurse Landscape Laborer 12/05/23 12/05/23 Hinton, [facility] Body Fitter Landscape Laborer 11/03/24 Cabrera Yadav MD #2 [facility] [address] [place] [address] Consulting Physician Urology 11/07/24 documented as of this encounter
--- OUTSIDE RECORDS SUMMARY | 2025-01-26 18:00 | XMS_ITS | Encounter Summary ---
Author Organization [facility] Address [address] [place] [address] Phone Care Team Providers Care Still Runner Name Role Phone Victoriano Reid MD Primary Care Provider [phone] Malissa Joe RN Unavailable Unavailable Malissa Joe RN Unavailable Unavailable Elva Olivares DO Primary Care Provider [phone] [place] MANAGER INTELLIGENCE Unavailable Unaabdirizaki Cabrera Dodge MD Unavailable [phone] Encounter Details Date Type Department Care Team (Late st Contact Info) Description 11/23/2021 Lab Requisition [facility] Laboratory Services 1 [place] [address] Victoriano Reid MD #1 [place] [address] Urinary tract infection, site not specified Social [...] Description 01/28/2025 10:30 AM CDT Clinical Support [facility] UROLOGY #2 [place] [address] Nurse, Ken Urology 02/02/2025 11:00 AM CDT [facility] 1 [facility] [place] [address] Cabrera Yadav MD #2 [facility] [address] [place] [address] Discharge Disposition: Discharged to home or Selfcare 02/10/2025 3:00 PM CDT [facility] Mamm[facility] 1 [place] [address] Elva Olivares, DO 2 [facility] 205 [place] [address] Discharge Disposition: Discharged to home or Selfcare 02/10/2025 4:00 PM CDT [facility] Ul[facility]ound 1 [facility] [place] [address] Elva Olivares, DO 2 [facility] [address] [place] [address] Discharge Disposition: Discharged to home or Selfcare 02/17/2025 1:40 PM CDT [facility] 1 [facility] [place] [address] Cabrera Yadav MD #2 [facility] [address] [place] [address] 02/17/2025 1:40 PM CDT - 02/17/2025 3:10 PM CDT [facility] Periop 1 [place] [address] Cabrera Yadav MD #2 [facility] [address] [place] [address] CYSTOSCOPY AND LITHOLAPAXY, PATIENT WILL NEED A PAUL LIFT 03/02/2025 8:40 AM CDT Office Visit [facility] Medical Group - Family Medicine [facility] #2 [place] [address] Elva Olivares DO 2 [facility] [address] [place] [address] Scheduled Orders Name Type Priority Associated Diagnoses [...] documented as of this encounter Care Teams Still Runner Relationship Specialty Start Date End Date Victoriano Reid MD PCP - General Family Medicine 06/19/19 06/29/24 Elva Olivares DO 2 [facility] [address] [place] [address] PCP - General Family Medicine 07/01/24 Malissa Joe RN [place] Nurse Operations Trainer 12/03/23 12/03/23 Malissa Joe, RN [place] Nurse Operations Trainer 12/05/23 12/05/23 Hinton, MANAGER INTELLIGENCE [place] Prize Coordinator Operations Trainer 11/03/24 Cabrera Yadav MD #[address] [address] Consulting Physician Urology 11/07/24 documented as of this encounter
--- OUTSIDE RECORDS SUMMARY | 2025-01-26 18:00 | XMS_ITS | Encounter Summary ---
Author Organization [facility] Address [address] [place] [address] Phone Care Team Providers Care Rubber Gasket Inspector Trimmer Name Role Phone Victoriano Reid MD Primary Care Provider [phone] Malissa Joe RN Unavailable Unavailable Malissa Joe RN Unavailable Unavailable Elva Olivares DO Primary Care Provider [phone] H[place] STATIONARY FIREMAN Unavailable Cabrera Smallwood MD Unavailable [phone] Reason for Visit * Reason Comments Medication Refill Encounter Details Date Type Department Care Team (Late st Contact Info) Description 09/05/2021 Refill [facility] - [place] #2 [place] [address] Singh Myrick APRN, CLAIM SPECIALIST #[address] [address] Medication Refill Social History Tobacco Use Types [...] [facility] 02/14/21 Telemedicine Victoriano Reid MD [facility] Ken Showing recent visits within past 365 days and meeting all other requirements Future Appointments No visits were found meeting these conditions. Showing future appointments within next 90 days and meeting all other requirements UNT GENERAL MANAGER documented in this encounter Plan of Treatment Upcoming Encounters Date Type Department Care Team (Latest Contact Info) Description 01/28/2025 10:30 AM CDT Clinical Support [facility] UROLOGY #2 [place] [address] Nurse, Ken Urology 02/02/2025 11:00 AM CDT Appointment [facility] CT 1 [place] [address] Cabrera Yadav MD #2 [facility] [address] [place] [address] Discharge Disposition: Discharged to home or Selfcare 02/10/2025 3:00 PM CDT [facility] 1 [facility] [place] [address] Elva Olivares, DO 2 [facility] [address] [place] [address] Discharge Disposition: Discharged to home or Selfcare 02/10/2025 4:00 PM CDT Appointment [facility] Ultrasound 1 [facility] [address] Elva Olivares, DO 2 [facility] [address] [place] [address] Discharge Disposition: Discharged to home or Selfcare 02/17/2025 1:40 PM CDT Hospital [facility] 1 [place] [address] Cabrera Yadav MD #2 [address] [address] 02/17/2025 1:40 PM CDT - 02/17/2025 3:10 PM CDT [facility] 1 [place] [address] Cabrera Yadav MD #[address] [address] CYSTOSCOPY AND LITHOLAPAXY, PATIENT WILL NEED A PAUL LIFT 03/02/2025 8:40 AM CDT Office Visit [facility] Family [facility] #2 [place] [address] Elva Olivares DO 2 Magda LABOY [facility] [address] [place] [address] Scheduled Procedures Name Priority Associated Diagnoses Date/Ti me CYSTOSCOPY BLADDER STONE BLADDER STONES 02/17/2025 1:40 PM CDT documented as of this encounter Visit Diagnoses Not on filedocumented in this encounter Additional Health Concerns Assessment Noted Time PHQ-9 Depression Total Score: 0 08/15/20 21 10:00 AM CDT documented as of this encounter Care Teams Rubber Gasket Inspector Trimmer Relationship Specialty Start Date End Date Victoriano Reid MD PCP - General Family Medicine 06/19/19 06/29/24 Elva Olivares DO 2 [facility] [address] [place] [address] PCP - General Family Medicine 07/01/24 Malissa Joe, RN [place] Nurse Emergency Room Registered Nurse 12/03/23 12/03/23 Malissa Joe, RN [place] Nurse Emergency Room Registered Nurse 12/05/23 12/05/23 H[place], [facility] [place] Wind Energy Engineer Emergency Room Registered Nurse 11/03/24 Cabrera Yadav MD #[address] [address] Consulting Physician Urology 11/07/24 documented as of this encounter
--- OUTSIDE RECORDS SUMMARY | 2025-01-26 18:00 | XMS_ITS | Encounter Summary ---
Author Organization [facility] Address [address] [place] [address] Phone Care Team Providers Care Drafter Marine Name Role Phone Victoriano Reid MD Primary Care Provider [phone] Malissa Joe RN Unavailable Unavailable Malissa Joe RN Unavailable Unavailable Elva Olivares DO Primary Care Provider [phone] [place] WEB DEVELOPMENT DIRECTOR Unavailable Unaabdirizaki Cabrera Dodge MD Unavailable [phone] Encounter Details Date Type Department Care Team (Late st Contact Info) Description 11/23/2021 Lab Requisition [facility] Laboratory Services 1 [place] [address] Victoriano Reid MD #1 [place] [address] Social History Tobacco Use Types Packs/Day Years [...] Description 01/28/2025 10:30 AM CDT Clinical Support [facility] UR[facility]Y #2 [place] [address] Nurse, Ken Urology 02/02/2025 11:00 AM CDT [facility] 1 [facility] [place] [address] Cabrera Yadav MD #2 [facility] [address] [place] [address] Discharge Disposition: Discharged to home or Selfcare 02/10/2025 3:00 PM CDT [facility] M[facility] 1 [place] [address] Elva Olivares, DO 2 [facility] [address] [place] [address] Discharge Disposition: Discharged to home or Selfcare 02/10/2025 4:00 PM CDT [facility] Ul[facility]ound 1 [place] [address] Elva Olivares, DO 2 [facility] [address] [place] [address] Discharge Disposition: Discharged to home or Selfcare 02/17/2025 1:40 PM CDT Hospital [facility] Per[facility] 1 [place] [address] Cabrera Yadav MD #2 [facility] [address] [place] [address] 02/17/2025 1:40 PM CDT - 02/17/2025 3:10 PM CDT [facility] Per[facility] 1 [place] [address] Cabrera Yadav MD #2 [facility] [address] [place] [address] CYSTOSCOPY AND LITHOLAPAXY, PATIENT WILL NEED A PAUL LIFT 03/02/2025 8:40 AM CDT Office Visit [facility] Medical Group - Family Medicine [facility] #2 [place] [address] Elva Olivares DO 2 [facility] [address] [place] [address] Scheduled Procedures Name Priority Associated Diagnoses Date/Ti mn CYSTOSCOPY BLADDER STONE BLADDER STONES 02/17/2025 1:40 PM CDT documented as of this encounter Visit Diagnoses Not on filedocumented in this encounter Additional Health Concerns Assessment Noted Time PHQ-9 Depression Total Score: 0 08/15/20 21 10:00 AM CDT documented as of this encounter Care Teams Drafter Marine Relationship Specialty Start Date End Date Victoriano Reid MD PCP - General Family Medicine 06/19/19 06/29/24 Elva Olivares DO 2 [facility] [address] [place] [address] PCP - General Family Medicine 07/01/24 Malissa Joe, RN [place] Nurse Audit Analyst 12/03/23 12/03/23 Malissa Joe RN [place] Nurse Audit Analyst 12/05/23 12/05/23 Hinton, WEB DEVELOPMENT DIRECTOR [place] Preparatory Technician Audit Analyst 11/03/24 Cabrera Yadav MD #2 [place] [address] Consulting Physician Urology 11/07/24 documented as of this encounter
--- OUTSIDE RECORDS SUMMARY | 2025-01-26 18:00 | XMS_ITS | Encounter Summary ---
Author Organization [facility] Address [address] [facility] [place] [address] Phone Care Team Providers Care Safety Equipment Tester Name Role Phone Victoriano Reid MD Primary Care Provider [phone] Malissa Joe RN Unavailable Unavailable Malissa Joe RN Unavailable Unavailable Elva Olivares DO Primary Care Provider [phone] [place] EXECUTIVE STEWARD Unavailable Unaabdirizaki Cabrera Dodge MD Unavailable [phone] Encounter Details Date Type Department Care Team (Late st Contact Info) Description 07/05/2023 Lab Requisition [facility] Laboratory Services 1 [place] [address] Victoriano Reid MD #1 [place] [address] Encounter for fitting and adjustment of urinary [...] [facility]Y #2 [place] [address] Nurse, Ken Urology 02/02/2025 11:00 AM CDT [facility] 1 [facility] [place] [address] Cabrera Yadav MD #2 [facility] 300 [place] [address] Discharge Disposition: Discharged to home or Selfcare 02/10/2025 3:00 PM CDT [facility] M[facility] 1 [place] [address] Elva Olivares, DO 2 [facility]. [address] [place] [address] Discharge Disposition: Discharged to home or Selfcare 02/10/2025 4:00 PM CDT [facility] 1 [facility] [place] [address] Elva Olivares, DO 2 [facility] 205 [place] [address] Discharge Disposition: Discharged to home or Selfcare 02/17/2025 1:40 PM CDT Hospital [facility] 1 [facility] [place] [address] Cabrera Yadav MD #2 [facility] [address] [place] [address] 02/17/2025 1:40 PM CDT - 02/17/2025 3:10 PM CDT Surgery [facility] Periop 1 [facility] [place] [address] Cabrera Yadav MD #2 [facility] [address] [place] [address] CYSTOSCOPY AND LITHOLAPAXY, PATIENT WILL NEED A PAUL LIFT 03/02/2025 8:40 AM CDT Office Visit [facility] Medical Group - Family [facility] #2 [place] [address] Elva Olivares, DO 2 [facility] [address] [address] Scheduled Procedures Name Priority Associated Diagnoses Date/Ti [...] REPEAT URINE CULTURE. 07/06/2023 10:57 PM CDT [facility] Culture Non-Phlebotomy Collection / Unknown 07/05/2023 2:20 PM CDT 07/05/2023 1:07 PM CDT Narrative [facility] - 07/06/2023 10:57 PM CDT Susceptibility not performed on enterococcus species. Due to high achievable concentrations in urine, Ampicillin is the drug of choice for treating infections limited to the lower urinary tract (regardless of Vancomycin susceptibility). For allergic patients, Nitrofurantoin or a quinolone may be substituted. us Victoriano Reid MD MICROBIOLOGY - GENERAL ORDERABLE S Final Result [facility] [address] [place] [address], documented in this encounter Visit Diagnoses Diagnosis Encounter for fitting and adjustment of urinary device Personal history of urinary (tract) infections documented in this encounter Additional Health Concerns Assessment Noted Time PHQ-9 Depression Total Score: 0 08/15/20 21 10:00 AM CDT documented as of this encounter Care Teams Safety Equipment Tester Relationship Specialty Start Date End Date Victoriano Reid MD PCP - General Family Medicine 06/19/19 06/29/24 Elva Olivares DO 2 [facility]. [address] [place] [address] PCP - General Family Medicine 07/01/24 Malissa Joe, RN [place] Nurse Tabulating Supervisor 12/03/23 12/03/23 Malissa Joe, RN [place] Nurse Tabulating Supervisor 12/05/23 12/05/23 Hinton, [facility] Attendance Officer Tabulating Supervisor 11/03/24 Cabrera Yadav MD #2 [facility] [address] [place] [address] Consulting Physician Urology 11/07/24 documented as of this encounter
--- OUTSIDE RECORDS SUMMARY | 2025-01-26 18:00 | XMS_ITS | Encounter Summary ---
Author Organization [facility] Address [address] [place] [address] Phone Care Team Providers Care Technology Resource Teacher Name Role Phone Victoriano Reid MD Primary Care Provider [phone] Malissa Joe RN Unavailable Unavailable Malissa Joe RN Unavailable Unavailable Elva Olivares DO Primary Care Provider [phone] Hinton RN SANE Unavailable Cabrera Smallwood MD Unavailable [phone] Reason for Visit * Reason Comments Medication Refill Encounter Details Date Type Department Care Team (Late st Contact Info) Description 07/24/2023 Refill [facility] #2 [place] [address] Victoriano Reid MD #1 [place] [address] Medication Refill Social History Tobacco Use Types [...] Rogers 09/19/22 Office Visit Victoriano Reid MD [facility] Ken Showing recent [...] [facility] UROLOGY #2 [place] [address] NurseKen Urology 02/02/2025 11:00 AM CDT Appointment [facility] CT 1 [place] [address] Cabrera Yadav MD #[address] [address] Discharge Disposition: Discharged to home or Selfcare 02/10/2025 3:00 PM CDT Appointment [facility] Mammography 1 [facility] [place] [address] Elva Olivares, DO 2 [facility] [address] [place] [address] Discharge Disposition: Discharged to home or Selfcare 02/10/2025 4:00 PM CDT Appointment [facility] Ultrasound 1 [place] [address] Elva Olivares, DO [address] [address] Discharge Disposition: Discharged to home or Selfcare 02/17/2025 1:40 PM CDT [facility] 1 [place] [address] Cabrera Yadav MD #[address] [address] 02/17/2025 1:40 PM CDT - 02/17/2025 3:10 PM CDT Surgery [facility] Periop 1 [facility] [place] [address] Cabrera Yadav MD #[address] [address] CYSTOSCOPY AND LITHOLAPAXY, PATIENT WILL NEED A PAUL LIFT 03/02/2025 8:40 AM CDT Office Visit [facility] - Family [facility] #2 [place] [address] Elva Olivares, DO 2 [facility] [address] [place] [address] Scheduled Procedures Name Priority Associated Diagnoses Date/Ti mn CYSTOSCOPY BLADDER STONE BLADDER STONES 02/17/2025 1:40 PM CDT documented as of this encounter Visit Diagnoses Diagnosis Muscle spasm Spasm of muscle documented in this encounter Additional Health Concerns Assessment Noted Time PHQ-9 Depression Total Score: 0 08/15/20 10:00 AM CDT documented as of this encounter Care Teams Technology Resource Teacher Relationship Specialty Start Date End Date Victoriano Reid MD PCP - General Family Medicine 06/19/19 06/29/24 Elva Olivares DO 2 [facility] [address] [place] [address] PCP - General Family Medicine 07/01/24 Malissa Joe, RN [place] Nurse Meal Miller 12/03/23 12/03/23 Malissa Joe, RN [place] Nurse Meal Miller 12/05/23 12/05/23 Hinton, RN SANE [place] Propellant Charge Loader Meal Miller 11/03/24 Cabrera Yadav MD #2 [address] [address] Consulting Physician Urology 11/07/24 documented as of this encounter
--- OUTSIDE RECORDS SUMMARY | 2025-01-26 18:00 | XMS_ITS | Encounter Summary ---
Author Organization [facility] Address [address] [place] [address] Phone Care Team Providers Care Gravity Flow Irrigator Name Role Phone Victoriano Reid MD Primary Care Provider [phone] Malissa Joe RN Unavailable Unavailable Malissa Joe RN Unavailable Unavailable Elva Olivares DO Primary Care Provider [phone] [place] [facility] Unavailable Cabrera Smallwood MD Unavailable [phone] Reason for Visit * Reason Comments Medication Refill Encounter Details Date Type Department Care Team (Late st Contact Info) Description 12/22/2020 Refill [facility] [address] [place] [id number] Victoriano Reid MD #1 [place] [address] Medication Refill Social History Tobacco Use Types [...] 4 months ago Acute cystitis with hematuria [facility] - Victoriano Beck MD 11 months ago Paralysis of both lower limbs (HCC) [facility] - Victoriano Beck MD 1 year ago Uncontrolled type 2 diabetes mellitus with hyperglycemia (HCC) [facility] Victoriano Toledo MD 1 year ago Spinal cord compression due to malignant neoplasm metastatic to spine ([facility]) [facility] - Victoriano Beck MD 1 year ago Annual visit for general adult medical examination with abnormal findings [facility] Victoriano Toledo MD Upcoming Appointments Future Appointments Tomorrow [facility]raine Russell, PT [facility] Tomorrow Naa Rios RN [facility] In 6 days Sharonda Carrion PTA [facility] 1 week Naa Rios RN [facility] week Sharonda Carrion PTA [facility] 2 weeks [facility]onda [facility]ion PTA [facility] 3 weeks Naa Rios RN [facility] 3 weeks Sharonda Carrion PTA [facility] PRODUCT ADVISOR - Recent and Past Visits Recent Visits Date Type Provider Dept 08/06/20 Telemedicine Victoriano Reid MD [facility] 01/22/20 Telemedicine [facility] MD [facility] 10/24/19 Office Visit [facility] MD [facility] Showing recent visits within past 460 days with a meds authorizing provider and meeting all other requirements Future Appointments No visits were found meeting these conditions. Showing future appointments within next 90 days with a meds authorizing provider and meeting all other requirements ET PRESS OPERATOR HELPER documented in this encounter Plan of Treatment Upcoming Encounters Date Type Department Care Team (Latest Contact Info) Description 01/28/2025 10:30 AM CDT Clinical Support [facility] UROLOGY #2 [place] [address] Nurse, Ken Urology 02/02/2025 11:00 AM CDT Appointment [facility] CT [address] [place] [address] Cabrera Yadav MD #2 [facility] [address] [place] [address] Discharge Disposition: Discharged to home or Selfcare 02/10/2025 3:00 PM CDT Appointment [facility] Mammography 1 [place] [address] Elva Olivares, DO 2 [facility] [address] [place] [address] Discharge Disposition: Discharged to home or Selfcare 02/10/2025 4:00 PM CDT Appointment [facility] Ultrasound 1 [place] [address] Elva Olivares, DO 2 [facility] [address] [place] [address] Discharge Disposition: Discharged to home or Selfcare 02/17/2025 1:40 PM CDT [facility] 1 [facility] [place] [address] Cabrera Yadav MD #2 [facility] [address] [place] [address] 02/17/2025 1:40 PM CDT - 02/17/2025 3:10 PM CDT [facility] 1 [facility] [place] [address] Cabrera Yadav MD #[address] [address] CYSTOSCOPY AND LITHOLAPAXY, PATIENT WILL NEED A PAUL LIFT 03/02/2025 8:40 AM CDT Office Visit [facility] [address] [place] [address] Elva Olivares DO 2 [facility] [address] [address] Scheduled Procedures Name Priority Associated Diagnoses Date/Ti me CYSTOSCOPY BLADDER STONE BLADDER STONES 02/17/2025 1:40 PM CDT documented as of this encounter Visit Diagnoses Not on filedocumented in this encounter Additional Health Concerns Infection Onset Date Last Indicated Resolved Time 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 06/05/2019 04/15/2021 7:28 AM CDT Assessment Noted Time PHQ-9 Depression Total Score: 0 10/24/19 20 11:16 AM OFFSET PRESS OPERATOR HELPER documented as of this encounter Care Teams Gravity Flow Irrigator Relationship Specialty Start Date End Date Victoriano Reid MD PCP - General Family Medicine 06/19/19 06/29/24 Elva Olivares DO 2 [facility] [address] [place] [address] PCP - General Family Medicine 07/01/24 Malissa Joe, RN [place] Nurse Forger Helper 12/03/23 12/03/23 Malissa Joe, RN [place] Nurse Forger Helper 12/05/23 12/05/23 [place], [facility] Lead Scientist Forger Helper 11/03/24 Cabrera Yadav MD #[address] [address] Consulting Physician Urology 11/07/24 documented as of this encounter
--- OUTSIDE RECORDS SUMMARY | 2025-01-26 18:00 | XMS_ITS | Encounter Summary ---
Author Organization [facility] Address [address] [place] [address] Phone Care Team Providers Care Mold Unloader Name Role Phone Victoriano Reid MD Primary Care Provider [phone] Malissa Joe RN Unavailable Unavailable Malissa Joe RN Unavailable Unavailable Elva Olivares DO Primary Care Provider [phone] [place] CRIME LAB ANALYST Unavailable Cabrera Smallwood MD Unavailable [phone] Reason for Visit * Reason Comments Medication Refill Encounter Details Date Type Department Care Team (Late st Contact Info) Description 07/01/2023 Refill [facility] #2 [place] [address] Victoriano Reid MD #1 [place] [address] Medication Refill Social History Tobacco Use Types [...] [place] 09/19/22 Office Visit Victoriano Reid MD [facility] Showing recent visits within past 365 days and meeting all other requirements Future Appointments No visits were found meeting these conditions. Showing future appointments within next 90 days and meeting all other requirements documented in this encounter Plan of Treatment Upcoming Encounters Date Type Department Care Team (Latest Contact Info) Description 01/28/2025 10:30 AM CDT Clinical Support [facility] UR[facility]Y #2 [place] [address] Nurse, Ken Urology 02/02/2025 11:00 AM CDT [facility] [address] [place] [address] Cabrera Yadav MD #[address] [address] Discharge Disposition: Discharged to home or Selfcare 02/10/2025 3:00 PM CDT Appointment [facility] Mammography [address] [place] [address] Elva Olivares, DO 2 [facility] [address] [place] [address] Discharge Disposition: Discharged to home or Selfcare 02/10/2025 4:00 PM CDT Appointment [facility] Ultrasound 1 [facility] [place] [address] Elva Olivares, DO 2 [facility] [address] [place] [address] Discharge Disposition: Discharged to home or Selfcare 02/17/2025 1:40 PM CDT [facility] 1 [facility] [place] [address] Cabrera Yadav MD #[address] [address] 02/17/2025 1:40 PM CDT - 02/17/2025 3:10 PM CDT Surgery [facility] Periop 1 [facility] [place] [address] Cabrera Yadav MD #[address] [place] [address] CYSTOSCOPY AND LITHOLAPAXY, PATIENT WILL NEED A PAUL LIFT 03/02/2025 8:40 AM CDT Office Visit [facility] Medical Group - Family Medicine [facility] #2 [address] [place] [address] Elva Olivares, DO 2 [facility] M[facility] [facility] [address] [place] [address] Scheduled Procedures Name Priority Associated Diagnoses Date/Ti sd CYSTOSCOPY BLADDER STONE BLADDER STONES 02/17/2025 1:40 PM CDT documented as of this encounter Visit Diagnoses Diagnosis Neurogenic bladder Neurogenic bladder, NOS 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) documented in this encounter Additional Health Concerns Assessment Noted Time PHQ-9 Depression Total Score: 0 08/15/20 21 10:00 AM CDT documented as of this encounter Care Teams Mold Unloader Relationship Specialty Start Date End Date Victoriano Reid MD PCP - General Family Medicine 06/19/19 06/29/24 Elva Olivares DO 2 [facility] [address] [place] [address] PCP - General Family Medicine 07/01/24 Malissa Joe, RN [place] Nurse Certified Real Estate Appraiser 12/03/23 12/03/23 Malissa Joe, RN [place] Nurse Certified Real Estate Appraiser 12/05/23 12/05/23 [place], CRIME LAB ANALYST [place] Neuropsychiatric Aide Certified Real Estate Appraiser 11/03/24 Cabrera Yadav MD #2 [facility] [address] [place] [address] Consulting Physician Urology 11/07/24 documented as of this encounter
--- OUTSIDE RECORDS SUMMARY | 2025-01-26 18:00 | XMS_ITS | Encounter Summary ---
Author Organization [facility] Address [address] [place] [address] Phone Care Team Providers Care Test Rack Operator Name Role Phone Victoriano Reid MD Primary Care Provider [phone] Malissa Joe RN Unavailable Unavailable Malissa Joe RN Unavailable Unavailable Elva Olivares DO Primary Care Provider [phone] [place] HANDSTITCHING MACHINE COLLAR FELLER Unavailable Cabrera Smallwood MD Unavailable [phone] Reason for Visit * Reason Comments Medication Refill Encounter Details Date Type Department Care Team (Late st Contact Info) Description 08/07/2021 Refill [facility] #2 [place] [address] Victoriano Reid MD #1 [place] [address] Medication Refill Social History Tobacco Use Types [...] Provider Dept 02/14/21 Telemedicine Victoriano Reid MD [facility] Ken Showing recent visits within past 365 days and meeting all other requirements Future Appointments Date Type Provider Dept 08/15/21 Appointment Victoriano Reid MD [facility] Showing future appointments within next 90 days and meeting all other requirements documented in this encounter Plan of Treatment Upcoming Encounters Date Type Department Care Team (Latest Contact Info) Description 01/28/2025 10:30 AM CDT Clinical Support [facility] UR[facility] #2 [place] [address] Nurse, Ken Urology 02/02/2025 11:00 AM CDT Appointment [facility] CT [address] [place] [address] Cabrera Yadav MD #2 [facility] [address] [place] [address] Discharge Disposition: Discharged to home or Selfcare 02/10/2025 3:[address] [facility] Mammography [address] [place] [address] Elva Olivares, DO 2 [facility] [address] [place] [address] Discharge Disposition: Discharged to home or Selfcare 02/10/2025 4:[address] [facility] Ultrasound 1 [facility] [place] [place] [address] Elva Olivares, DO 2 [facility] [address] [address] Discharge Disposition: Discharged to home or Selfcare 02/17/2025 1:40 PM CDT Hospital [facility] 1 [facility] Shanelle [facility] [place] [address] Cabrera Yadav MD #[address] [address] 02/17/2025 1:40 PM CDT - 02/17/2025 3:[address] [facility] Periop 1 [facility] [place] [address] Cabrera Yadav MD #[address] [address] CYSTOSCOPY AND LITHOLAPAXY, PATIENT WILL NEED A PAUL LIFT 03/02/2025 8:40 AM CDT Office Visit [facility] Medical Group - Family Medicine [facility] #2 [place] [address] Elva Olivares, DO 2 [facility] [address] Scheduled Procedures Name Priority Associated Diagnoses Date/Ti me CYSTOSCOPY BLADDER STONE BLADDER STONES 02/17/2025 1:40 PM CDT documented as of this encounter Visit Diagnoses Not on filedocumented in this encounter Additional Health Concerns Assessment Noted Time PHQ-9 Depression Total Score: 0 10/24/19 11:16 AM BALLASTER documented as of this encounter Care Teams Test Rack Operator Relationship Specialty Start Date End Date Victoriano Reid MD PCP - General Family Medicine 06/19/19 06/29/24 Elva Olivares DO 2 [facility] [address] [place] [address] PCP - General Family Medicine 07/01/24 Malissa Joe, RN [place] Nurse Fruit Sprayer 12/03/23 12/03/23 Malissa Joe, RN [place] Nurse Fruit Sprayer 12/05/23 12/05/23 [place], HANDSTITCHING MACHINE COLLAR FELLER [place] Executive Officer Fruit Sprayer 11/03/24 Cabrera Yadav MD #2 [facility] [address] [place] [address] Consulting Physician Urology 11/07/24 documented as of this encounter
--- OUTSIDE RECORDS SUMMARY | 2025-01-26 18:00 | XMS_ITS | Encounter Summary ---
Author Organization [facility] Address [address] [place] [address] Phone Care Team Providers Care Yarn Texture Machine Operator Name Role Phone Victoriano Reid MD Primary Care Provider [phone] Malissa Joe RN Unavailable Unavailable Malissa Joe RN Unavailable Unavailable Elva Olivares DO Primary Care Provider [phone] [place] PROC TECH Unavailable Unaabdirizaki Cabrera Dodge MD Unavailable [phone] Encounter Details Date Type Department Care Team (Late st Contact Info) Description 02/07/2021 Lab Requisition [facility] Laboratory Services [address] [place] [address] Victoriano Reid MD #1 [place] [address] Neuromuscular dysfunction of bladder, unspecified Social History [...] 10:30 AM CDT Clinical Support [facility] UROLOGY #2 [place] [address] NurseKen Urology 02/02/2025 11:00 AM CDT [facility] 1 [facility] [place] [address] Cabrera Yadav MD #2 [facility] [address] [place] [address] Discharge Disposition: Discharged to home or Selfcare 02/10/2025 3:00 PM CDT [facility] Mamm[facility] [address] [place] [address] Elva Olivares, DO 2 [facility] [address] [place] [address] Discharge Disposition: Discharged to home or Selfcare 02/10/2025 4:00 PM CDT [facility] 1 [facility] [place] [address] Elva Olivares, DO 2 [facility] [address] [place] [address] Discharge Disposition: Discharged to home or Selfcare 02/17/2025 1:40 PM CDT Hospital [facility] 1 [facility] [place] [address] Cabrera Yadav MD #2 [facility] [address] [place] [address] 02/17/2025 1:40 PM CDT - 02/17/2025 3:10 PM CDT [facility] 1 [facility] [place] [address] Cabrera Yadav MD #2 [facility] [address] [place] [address] CYSTOSCOPY AND LITHOLAPAXY, PATIENT WILL NEED A PAUL LIFT 03/02/2025 8:40 AM CDT Office Visit [facility] Medical Group - Family Medicine - [place] #2 [place] [address] Elva Olivares, DO 2 [facility] [address] [place] [address] Scheduled Procedures Name Priority Associated Diagnoses Date/Ti [...] RESULTS ESCHERICHIA COLI 02/10/2021 9:24 AM CDT [facility] Comment:PRESUMPTIVE IDENTIFI CATION CULTURE RESULTS ALSO MIXED GROWTH OF DISTAL URETHRA CONTAMINANTS. 02/10/2021 9:24 AM CDT [facility] Urine Non-Phlebotomy Collection / Unknown [...] MICROBIOLOGY - GENERAL ORDERABLE S Final Result [facility] [address] [place] [address], * (ABNORMAL) URINALYSIS REFLEX IF INDICATED BY ABNORMAL RESULTS (02/07/2021 3:15 PM CDT) SPECIFIC GRAVITY 1.010 1.003 - 1.030 02/07/2021 5:23 PM CDT [facility] URINE PH 7.0 5.0 - 9.0 02/07/2021 5:23 PM CDT [facility] WBC ESTERASE 500 /uL(A) Negative 02/07/2021 5:23 PM CDT [facility] NITRITE Positive(A) Negative 02/07/2021 5:23 PM CDT [facility] PROTEIN, RANDOM URINE 100 mg/dL(A) Negative 02/07/2021 5:23 PM CDT [facility] URINE GLUCOSE, QUAL Negative Negative 02/07/2021 5:23 PM CDT [facility] URINE KETONES Negative Negative 02/07/2021 5:23 PM CDT [facility] UROBILINOGEN Normal Normal mg/dL 02/07/2021 5:23 PM CDT [facility] URINE BILIRUBIN Negative Negative 5:23 PM CDT [facility] URINE BLOOD 250 /uL(A) Negative josefa/ul 02/07/2021 5:23 PM CDT [facility] URINALYSIS COLOR Yellow 02/08/20 5:23 PM CDT [facility] URINALYSIS CLARITY Very Cloudy 02/07/2021 5:23 PM CDT [facility] WBC (Urine) 51-150(A) Negative, 0-5 /hpf 02/07/2021 5:23 PM CDT [facility] URINE RBC'S 21-50(A) Negative, 0-2 /hpf 02/07/2021 5:23 PM CDT [facility] EPITHELIAL CELLS Moderate amount /lpf 02/07/2021 5:23 PM CDT [facility] BACTERIA, URINE Packed(A) Negative /hpf 02/07/2021 5:23 PM CDT [facility] Urine Non-Phlebotomy Collection / Unknown 02/07/2021 3:15 PM CDT 02/07/2021 5:09 PM CDT us Victoriano Reid MD URINE ORDERABLES Final Result [facility] #1 [place] [address] documented in this encounter Visit Diagnoses Diagnosis Neuromuscular dysfunction of bladder, unspecified documented in this encounter Additional Health Concerns Infection Onset Date Last Indicated Resolved Time 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 [address] [place] [address] PCP - General Family Medicine 07/01/24 Malissa Joe, RN [place] Nurse Travograph Operator 12/03/23 12/03/23 Malissa Joe, RN [place] Nurse Travograph Operator 12/05/23 12/05/23 [place], PROC TECH [place] Boom Operator Travograph Operator 11/03/24 Cabrera Yadav MD #2 [facility] [address] [place] [address] Consulting Physician Urology 11/07/24 documented as of this encounter
--- OUTSIDE RECORDS SUMMARY | 2025-01-26 18:00 | XMS_ITS | Encounter Summary ---
Author Organization [facility] Address [address] [place] [address] Phone Care Team Providers Care Wrestling Coach Name Role Phone Victoriano Reid MD Primary Care Provider [phone] Malissa Joe RN Unavailable Unavailable Malissa Joe RN Unavailable Unavailable Elva Olivares DO Primary Care Provider [phone] [place] POULTRY PINNER Unavailable Unaabdirizaki Cabrera Dodge MD Unavailable [phone] Encounter Details Date Type Department Care Team (Late st Contact Info) Description 10/31/2021 Lab Requisition [facility] Laboratory Services [address] [place] [id number] Victoriano Reid MD #1 [place] [address] Personal history of urinary (tract) infections Social [...] Description 01/28/2025 10:30 AM CDT Clinical Support [facility] UROLOGY #[address] [address] NurseKen Urology 02/02/2025 11:00 AM CDT Appointment [facility] [address] [place] [address] Cabrera Yadav MD #2 [facility] [address] [place] [address] Discharge Disposition: Discharged to home or Selfcare 02/10/2025 3:00 PM CDT [facility] M[facility] [address] [place] [address] Elva Olivares, DO 2 [facility] [address] [place] [address] Discharge Disposition: Discharged to home or Selfcare 02/10/2025 4:00 PM CDT [facility]ment [facility] Ultrasound [address] [place] [address] Elva Olivares, DO 2 [facility] [address] [place] [address] Discharge Disposition: Discharged to home or Selfcare 02/17/2025 1:40 PM CDT Hospital [facility] Periop [address] [place] [address] Cabrera Yadav MD #2 [facility] [address] [place] [address] 02/17/2025 1:40 PM CDT - 02/17/2025 3:10 PM CDT Surgery [facility] Periop 1 [facility] [place] [address] Cabrera Yadav MD #2 [facility] [address] [place] [address] CYSTOSCOPY AND LITHOLAPAXY, PATIENT WILL NEED A PAUL LIFT 03/02/2025 8:40 AM CDT Office Visit [facility] Medical Group - Family Medicine [facility] #2 [place] [address] Elva Olivares, DO [address] [place] [facility] [address] [place] [address] Scheduled Procedures Name Priority Associated Diagnoses Date/Ti me CYSTOSCOPY BLADDER STONE BLADDER STONES 02/17/2025 1:40 PM CDT documented as of this encounter Procedures Procedure Name Priority Date/Time Associated Diagnosis Comments URINALYSIS REFLEX IF INDICATED BY ABNORMAL RESULTS Routine 10/31/2020 12:15 PM NETWORK COMMUNICATIONS ENGINEER Personal history of urinary (tract) infections CULTURE, URINE Routine 10/31/2020 12:15 PM NETWORK COMMUNICATIONS ENGINEER Personal history of urinary (tract) infections documented in this encounter Results * CULTURE, URINE (10/31/2020 12:15 PM NETWORK COMMUNICATIONS ENGINEER) CULTURE RESULTS MIXED GROWTH OF 3 OR MORE ORGANISMS, PROBABLE COLLECTION CONTAMINATION, SUGGEST REPEAT URINE CULTURE. 11/01/2021 4:23 PM NETWORK COMMUNICATIONS ENGINEER [facility] Urine Non-Phlebotomy Collection / Unknown 10/31/2020 12:15 PM NETWORK COMMUNICATIONS ENGINEER 10/31/2021 1:47 PM NETWORK COMMUNICATIONS ENGINEER us Victoriano Reid MD MICROBIOLOGY - GENERAL ORDERABLE S Final Result [facility] [address] [place] [address], * (ABNORMAL) URINALYSIS REFLEX IF INDICATED BY ABNORMAL RESULTS (10/31/2020 12:15 PM NETWORK COMMUNICATIONS ENGINEER) SPECIFIC GRAVITY 1.010 1.003 - 1.030 10/31/2021 2:26 PM [facility] URINE PH 8.0 5.0 - 9.0 10/31/2021 2:26 PM [facility] WBC ESTERASE 500 /uL(A) Negative 10/31/2021 2:26 PM [facility] NITRITE Negative Negative 10/31/2021 2:26 PM [facility] PROTEIN, RANDOM URINE 100 mg/dL(A) Negative 10/31/2021 2:26 PM [facility] URINE GLUCOSE, QUAL Negative Negative 10/31/2021 2:26 PM [facility] URINE KETONES Negative Negative 10/31/2021 2:26 PM [facility] UROBILINOGEN Normal Normal mg/dL 10/31/2021 2:26 PM [facility] URINE BLOOD 250 /uL(A) Negative josefa/ul 10/31/2021 2:26 PM [facility] URINALYSIS COLOR Dark Yellow 10/31/2021 2:26 PM [facility] URINALYSIS CLARITY Very Cloudy 10/31/2021 2:26 PM [facility] WBC (Urine) 21-50(A) Negative, 0-5 /hpf 10/31/2021 2:26 PM [facility] URINE RBC'S 21-50(A) Negative, 0-2 /hpf 10/31/2021 2:26 PM [facility] EPITHELIAL CELLS Occasional /lpf 10/31/2021 2:26 PM [facility] BACTERIA, URINE Packed(A) Negative /hpf 10/31/2021 2:26 PM [facility] Urine Non-Phlebotomy Collection / Unknown 10/31/2020 12:15 PM NETWORK COMMUNICATIONS ENGINEER 10/31/2021 1:47 PM NETWORK COMMUNICATIONS ENGINEER Victoriano Reid MD URINE ORDERABLES Final Result [facility] #[address] [place] [address] documented in this encounter Visit Diagnoses Diagnosis Personal history of urinary (tract) infections documented in this encounter Additional Health Concerns Assessment Noted Time PHQ-9 Depression Total Score: 0 10/24/19 11:16 AM NETWORK COMMUNICATIONS ENGINEER documented as of this encounter Care Teams Wrestling Coach Relationship Specialty Start Date End Date Victoriano Reid MD PCP - General Family Medicine 06/19/19 06/29/24 Elva Olivares DO 2 [facility] [address] [place] [address] PCP - General Family Medicine 07/01/24 Malissa Joe, RN [place] Nurse Cigarette Lighter Repairer 12/03/23 12/03/23 Malissa Joe, RN [place] Nurse Cigarette Lighter Repairer 12/05/23 12/05/23 H[place] POULTRY PINNER [place] Boom Operator Cigarette Lighter Repairer 11/03/24 Cabrera Yadav MD #2 [facility] [address] [place] [address] Consulting Physician Urology 11/07/24 documented as of this encounter
--- OUTSIDE RECORDS SUMMARY | 2025-01-26 18:00 | XMS_ITS | Encounter Summary ---
Author Organization [facility] Address [address] [place] [address] Phone Care Team Providers Care City Weighmaster Name Role Phone Victoriano Reid MD Primary Care Provider [phone] Malissa Joe RN Unavailable Unavailable Malissa Jeo RN Unavailable Unavailable Elva Olivares DO Primary Care Provider [phone] [place] EMERGENCY MANAGEMENT DIRECTOR Unavailable Cabrera Smallwood MD Unavailable [phone] Reason for Visit * Reason Comments Medication Refill Encounter Details Date Type Department Care Team (Late st Contact Info) Description 10/05/2020 Refill [facility] Medical Group - Family [facility] [address] [place] [phone] Victoriano Reid MD #1 [place] [address] Medication Refill Social History Tobacco Use Types [...] Visits Recent Outpatient Visits 2 months ago [facility] Victoriano Toledo MD 8 months ago Paralysis of both lower limbs (HCC) [facility] - Victoriano Beck MD 11 months ago Uncontrolled type 2 diabetes mellitus with hyperglycemia (HCC) [facility] Victoriano Toledo MD 1 year ago 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) [facility] - Victoriano Beck MD 1 year ago Annual visit for general adult medical examination with abnormal findings [facility] Victoriano Toledo MD Upcoming Appointments Future Appointments In 6 days Naa Rios RN [facility] In 6 days Sharonda Carrion PTA [facility] In 1 week Sharonda Carrion, FRANCIS [facility] In 2 weeks Sharonda Carrion, FRANCIS [facility] In 2 weeks Naa Rios RN [facility] In 2 weeks Lorraine Russell PT [facility] In 3 weeks Sharonda Carrion, FRANCIS [facility] In 3 weeks Sharonda Carrion, FRANCIS [facility] In 4 weeks Sharonda Carrion PTA [facility] In 1 month Naa Rios RN [facility] In 1 month Sharonda Carrion, MANAGER OF MARKETING [facility] In 1 month Sharonda Carrion, MANAGER OF MARKETING [facility] In 1 month Lorraine Russell, PT [facility] In 1 month Lorraine Russell, PT [facility] In 1 month Naa Rios RN [facility] Home Health WIRE STRETCHER - Recent and Past Visits Recent Visits Date Type Provider Dept 08/06/20 Telemedicine Victoriano Reid MD [facility] 01/22/20 Telemedicine Victoriano Reid MD [facility] 10/24/19 Office Visit Victoriano Reid MD [facility] 07/17/19 [facility] Visit [facility] Showing recent visits within past 460 days with a meds authorizing provider and meeting all other requirements Future Appointments No visits were found meeting these conditions. Showing future appointments within next 90 days with a meds authorizing provider and meeting all other requirements S ATTENDANT documented in this encounter Plan of Treatment Upcoming Encounters Date Type Department Care Team (Latest Contact Info) Description 01/28/2025 10:30 AM CDT Clinical Support [facility]IAN [facility] UROLOGY #2 [place] [address] Nurse, [facility] 02/02/2025 11:00 AM CDT [facility] [address] [place] [address] Cabrera Yadav MD #2 [facility] [address] [place] [address] Discharge Disposition: Discharged to home or Selfcare 02/10/2025 3:00 PM CDT [facility]oint[facility] Mammography 1 [place] [address] Elva Olivares, DO 2 [facility] [address] [place] [address] Discharge Disposition: Discharged to home or Selfcare 02/10/2025 4:00 PM CDT Appointment [facility] Ultrasound 1 [facility] [place] [address] Elva Olivares, DO 2 [facility] [address] [place] [address] Discharge Disposition: Discharged to home or Selfcare 02/17/2025 1:40 PM CDT Hospital En[facility] Periop 1 [place] [address] Cabrera Yadav MD #[address] [address] 02/17/2025 1:40 PM CDT - 02/17/2025 3:10 PM CDT Surgery [facility] Periop 1 [facility] [place] [address] Cabrera Yadav MD #[address] [address] CYSTOSCOPY AND LITHOLAPAXY, PATIENT WILL NEED A PAUL LIFT 03/02/2025 8:40 AM CDT Office Visit [facility] Medical Group - Family [facility] #[address] [place] [address] Elva Olivares, DO 2 [facility] [address] [place] [address] Scheduled Procedures Name Priority Associated Diagnoses Date/Ti [...] Total Score: 0 10/24/19 20 11:16 AM RIDES ATTENDANT documented as of this encounter Care Teams City Weighmaster Relationship Specialty Start Date End Date Victoriano Reid MD PCP - General Family Medicine 06/19/19 06/29/24 Elva Olivares DO 2 [facility] [address] [place] [address] PCP - General Family Medicine 07/01/24 Malissa Joe, RN [place] Nurse Venetian Blind Washer 12/03/23 12/03/23 Malissa Joe RN [place] Nurse Venetian Blind Washer 12/05/23 12/05/23 [place], EMERGENCY MANAGEMENT DIRECTOR [place] Manager Education Venetian Blind Washer 11/03/24 Cabrera Yadav MD #2 [facility] [address] [place] [address] Consulting Physician Urology 11/07/24 documented as of this encounter
--- OUTSIDE RECORDS SUMMARY | 2025-01-26 18:00 | XMS_ITS | Encounter Summary ---
Author Organization [facility] Address [address] [place] [address] Phone Care Team Providers Care Animal Technician Name Role Phone Victoriano Reid MD Primary Care Provider [phone] Malissa Joe RN Unavailable Unavailable Malissa Joe RN Unavailable Unavailable Elva Olivares DO Primary Care Provider [phone] [place] PAINT COATING MACHINE OPERATOR Unavailable Unaabdirizaki Cabrera Dodge MD Unavailable [phone] Encounter Details Date Type Department Care Team (Late st Contact Info) Description 01/24/2023 Lab Requisition [facility] Laboratory Services 1 [place] [phone] Victoriano Reid MD #1 [place] [address] Urinary tract infection, site not specified Social [...] 01/28/2025 10:30 AM CDT Clinical Support [facility]IAN GROUP UROLOGY #2 [place] [address] Nurse, [place] [facility] 02/02/2025 11:00 AM CDT [facility] [address] [place] [address] Cabrera Yadav MD #2 [facility] [address] [place] [address] Discharge Disposition: Discharged to home or Selfcare 02/10/2025 3:00 PM CDT [facility] 1 [place] [address] Elva Olivares, DO 2 [facility] [address] [place] [address] Discharge Disposition: Discharged to home or Selfcare 02/10/2025 4:00 PM CDT [facility] Ul[facility]ound 1 [place] [address] Elva Olivares, DO 2 [facility] [address] [place] [address] Discharge Disposition: Discharged to home or Selfcare 02/17/2025 1:40 PM CDT Hospital [facility] Periop [address] [place] [address] Cabrera Yadav MD #2 [facility] [address] [place] [address] 02/17/2025 1:40 PM CDT - 02/17/2025 3:10 PM CDT [facility] 1 [facility] [address] [place] [address] Cabrera Yadav MD #2 [facility] [address] [place] [address] CYSTOSCOPY AND LITHOLAPAXY, PATIENT WILL NEED A PAUL LIFT 03/02/2025 8:40 AM CDT Office Visit [facility] Medical Group - Family Medicine - [place] #2 [place] [address] Elva Olivares, DO 2 [facility]. [address] [place] [address] Scheduled Procedures Name Priority Associated Diagnoses Date/Ti [...] RESULTS CITROBACT[facility] AMALONATICUS 01/27/2023 10:26 AM CDT [facility] CULTURE RESULTS GRAM-NEGATIVE BACILLUS 01/27/2023 10:26 AM CDT [facility] Comment:NO FURTHER WORKUP PE RFORMED Urine Non-Phlebotomy [...] S Final Result [facility] [address] [place] [address], * (ABNORMAL) URINALYSIS REFLEX IF INDICATED BY ABNORMAL RESULTS (01/24/2023 1:55 PM CDT) SPECIFIC GRAVITY 1.010 1.003 - 1.030 01/24/2023 3:08 PM CDT [facility] URINE PH 7.0 5.0 - 9.0 01/24/2023 3:08 PM CDT [facility] WBC ESTERASE 500 /uL(A) Negative 01/24/2023 3:08 PM CDT [facility] NITRITE Negative Negative 01/24/2023 3:08 PM CDT [facility] PROTEIN, RANDOM URINE 30 mg/dL(A) Negative 01/24/2023 3:08 PM CDT [facility] URINE GLUCOSE, QUAL Negative Negative 01/24/2023 3:08 PM CDT [facility] URINE KETONES Negative Negative 01/24/2023 3:08 PM CDT [facility] UROBILINOGEN Normal Normal mg/dL 01/24/2023 3:08 PM CDT [facility] URINE BLOOD 250 /uL(A) Negative josefa/ul 01/24/2023 3:08 PM CDT [facility] URINALYSIS COLOR [place] 01/25/20 3:08 PM CDT [facility] URINALYSIS CLARITY Slightly Cloudy 01/24/2023 3:08 PM CDT [facility] WBC (Urine) Packed(A) Negative, 0-5 /hpf 01/24/2023 3:08 PM CDT [facility] URINE RBC'S -20(A) Negative, 0-2 /hpf 01/24/2023 3:08 PM CDT [facility] EPITHELIAL CELLS Small amount /lpf 2022 3:08 PM CDT [facility] BACTERIA, URINE Moderate(A) Negative /hpf 01/24/2023 3:08 PM CDT [facility] Urine Non-Phlebotomy Collection / Unknown 01/24/2023 1:55 PM CDT 01/24/2023 2:43 PM CDT us Victoriano Reid MD URINE ORDERABLES Final Result [facility] #[address] [place] [address] documented in this encounter Visit Diagnoses Diagnosis Urinary tract infection, site not specified documented in this encounter Additional Health Concerns Assessment Noted Time PHQ-9 Depression Total Score: 0 08/15/20 21 10:00 AM CDT documented as of this encounter Care Teams Animal Technician Relationship Specialty Start Date End Date Victoriano Reid MD PCP - General Family Medicine 06/19/19 06/29/24 Elva Olivares DO 2 [facility]. [address] [place] [address] PCP - General Family Medicine 07/01/24 Malissa Joe, RN [place] Nurse Pleating Machine Operator 12/03/23 12/03/23 Malissa Joe, RN [place] Nurse Pleating Machine Operator 12/05/23 12/05/23 [place], PAINT COATING MACHINE OPERATOR [place] Vocal Performer Pleating Machine Operator 11/03/24 Cabrera Yadav MD #2 [facility] [address] [place] [address] Consulting Physician Urology 11/07/24 documented as of this encounter
--- OUTSIDE RECORDS SUMMARY | 2025-01-26 18:00 | XMS_ITS | Encounter Summary ---
Author Organization [facility] Address [address] [place] [address] Phone Care Team Providers Care Greenhouse Grower Name Role Phone Victoriano Reid MD Primary Care Provider [phone] Malissa Joe RN Unavailable Unavailable Malissa Joe RN Unavailable Unavailable Elva Olivares DO Primary Care Provider [phone] [place] RADIOGRAPHER CARDIAC CATHETERIZATION Unavailable Unaabdirizaki Cabrera Dodge MD Unavailable [phone] Encounter Details Date Type Department Care Team (Late st Contact Info) Description 11/29/2020 Lab Requisition [facility] Laboratory Services 1 [place] [phone] Victoriano Reid MD #1 [place] [address] Personal history of urinary (tract) infections Social [...] Description 01/28/2025 10:30 AM CDT Clinical Support [facility] UROLOGY #2 [place] [address] Nurse, Ken Urology 02/02/2025 11:00 AM CDT [facility] [address] [place] [address] Cabrera Yadav MD #2 [facility] [address] [place] [address] Discharge Disposition: Discharged to home or Selfcare 02/10/2025 3:00 PM CDT [facility] 1 [facility] [place] [address] Elva Olivares, DO 2 [facility] [address] [place] [address] Discharge Disposition: Discharged to home or Selfcare 02/10/2025 4:00 PM CDT [facility] Ultrasound 1 [address] [place] [address] Elva Olivares, DO 2 [facility] [address] [place] [address] Discharge Disposition: Discharged to home or Selfcare 02/17/2025 1:40 PM CDT [facility] Periop 1 [place] [address] Cabrera Yadav MD #2 SHANELLE [facility]CMILLAN, [facility] [address] [place] [address] 02/17/2025 1:40 PM CDT - 02/17/2025 3:10 PM CDT [facility] 1 [facility] [place] [address] Cabrera Yadav MD #2 [facility] [address] [place] [address] CYSTOSCOPY AND LITHOLAPAXY, PATIENT WILL NEED A PAUL LIFT 03/02/2025 8:40 AM CDT Office Visit [facility] Medical Group - Family Medicine [facility] #2 [place] [address] Elva Olivares, DO 2 [facility]. [address] [place] [address] Scheduled Procedures Name Priority Associated Diagnoses Date/Ti me CYSTOSCOPY BLADDER STONE BLADDER STONES 02/17/2025 1:40 PM CDT documented as of this encounter Procedures Procedure Name Priority Date/Time Associated Diagnosis Comments URINALYSIS REFLEX IF INDICATED BY ABNORMAL RESULTS Routine 11/29/2020 12:45 PM SEISMIC PROSPECTING SUPERVISOR Personal history of urinary (tract) infections CULTURE, URINE Routine 11/29/2020 12:45 PM SEISMIC PROSPECTING SUPERVISOR Personal history of urinary (tract) infections documented in this encounter Results * CULTURE, URINE (11/29/2020 12:45 PM SEISMIC PROSPECTING SUPERVISOR) CULTURE RESULTS STAPHYLOCOCCUS AUREUS 12/01/2020 4:47 PM SEISMIC PROSPECTING SUPERVISOR [facility] Urine Non-Phlebotomy Collection / Unknown 11/29/2020 12:45 PM SEISMIC PROSPECTING SUPERVISOR 11/29/2020 1:55 PM SEISMIC PROSPECTING SUPERVISOR Narrative Organism Antibiotic Method Susceptibility Staphylococcus aureus Gentamicin [facility] IIB <=0.5 mcg/ml: Susceptible Staphylococcus aureus Nitrofurantoin [facility] IIB 32 mcg/ml: Susceptible Staphylococcus aureus Oxacillin [facility] IIB <=0.25 mcg/ml: Susceptible Staphylococcus aureus Tetracycline [facility] IIB <=1 mcg/ml: Susceptible Staphylococcus aureus Trimeth/Sulfamethoxazole [facility] IIB <=10 mcg/ml: Susceptible Staphylococcus aureus Vancomycin [facility] IIB <=0.5 mcg/ml: Susceptible us Victoriano Reid MD MICROBIOLOGY - GENERAL ORDERABLE S Final Result [facility] [address] [facility] [place] [address], [place] * (ABNORMAL) URINALYSIS REFLEX IF INDICATED BY ABNORMAL RESULTS (11/29/2020 12:45 PM SEISMIC PROSPECTING SUPERVISOR) SPECIFIC GRAVITY 1.010 1.003 - 1.030 11/29/2020 2:17 PM SEISMIC PROSPECTING SUPERVISOR [facility] URINE PH 7.0 5.0 - 9.0 11/29/2020 2:17 PM SEISMIC PROSPECTING SUPERVISOR [facility] WBC ESTERASE 500 /uL(A) Negative 11/29/2020 2:17 PM SEISMIC PROSPECTING SUPERVISOR [facility] NITRITE Negative Negative 11/29/2020 2:17 PM SEISMIC PROSPECTING SUPERVISOR [facility] PROTEIN, RANDOM URINE 30 mg/dL(A) Negative 11/29/2020 2:17 PM SEISMIC PROSPECTING SUPERVISOR [facility] URINE GLUCOSE, QUAL Negative Negative 11/29/2020 2:17 PM SEISMIC PROSPECTING SUPERVISOR [facility] URINE KETONES Negative Negative 11/29/2020 2:17 PM SEISMIC PROSPECTING SUPERVISOR [facility] UROBILINOGEN Normal Normal mg/dL 11/29/2020 2:17 PM SEISMIC PROSPECTING SUPERVISOR [facility] URINE BILIRUBIN Negative Negative 2:17 PM SEISMIC PROSPECTING SUPERVISOR [facility] URINE BLOOD 250 /uL(A) Negative josefa/ul 11/29/2020 2:17 PM SEISMIC PROSPECTING SUPERVISOR [facility] URINALYSIS COLOR Yellow 11/29/19 2:17 PM [facility] URINALYSIS CLARITY Very Cloudy 11/29/2020 2:17 PM [facility] WBC (Urine) 51-150(A) Negative, 0-5 /hpf 11/29/2020 2:17 PM [facility] URINE RBC'S 51-150(A) Negative, 0-2 /hpf 11/29/2020 2:17 PM SEISMIC PROSPECTING SUPERVISOR [facility] EPITHELIAL CELLS Occasional /lpf 11/29/19 2:17 PM SEISMIC PROSPECTING SUPERVISOR [facility] BACTERIA, URINE Many(A) Negative /hpf 11/29/2020 2:17 PM SEISMIC PROSPECTING SUPERVISOR [facility] URINE MUCOUS Few 11/29/2020 2:17 PM SEISMIC PROSPECTING SUPERVISOR [facility] Urine Non-Phlebotomy Collection / Unknown 11/29/2020 12:45 PM SEISMIC PROSPECTING SUPERVISOR 11/29/2020 1:55 PM SEISMIC PROSPECTING SUPERVISOR us Victoriano Reid MD URINE ORDERABLES Final Result [facility]1 [place] [address] documented in this encounter Visit Diagnoses Diagnosis Personal history of urinary (tract) infections documented in this encounter Additional Health Concerns Infection Onset Date Last Indicated Resolved Time 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 06/05/2019 04/15/2021 7:28 AM CDT Assessment Noted Time PHQ-9 Depression Total Score: 0 10/24/19 20 11:16 AM SEISMIC PROSPECTING SUPERVISOR documented as of this encounter Care Teams Greenhouse Grower Relationship Specialty Start Date End Date Victoriano Reid MD PCP - General Family Medicine 06/19/19 06/29/24 Elva Olivares DO 2 [facility] [address] [address] PCP - General Family Medicine 07/01/24 Malissa Joe, RN [place] Nurse Van Driver 12/03/23 12/03/23 Malissa Joe RN [place] Nurse [place] 12/05/23 12/05/23 [place], RADIOGRAPHER CARDIAC CATHETERIZATION [place] Production Finisher Van Driver 11/03/24 Cabrera Yadav MD #2 [facility] [address] [address] Consulting Physician Urology 11/07/24 documented as of this encounter
--- OUTSIDE RECORDS SUMMARY | 2025-01-26 18:00 | XMS_ITS | Encounter Summary ---
Author Organization [facility] Address [address] [place] [address] Phone Care Team Providers Care Senior Clinical Data Coordinator Name Role Phone Victoriano Reid MD Primary Care Provider [phone] Malissa Joe RN Unavailable Unavailable Malissa Joe RN Unavailable Unavailable Elva Olivares DO Primary Care Provider [phone] H[place] TALLOW MAKER Unavailable Unaabdirizaki Cabrera Dodge MD Unavailable [phone] Encounter Details Date Type Department Care Team (Late st Contact Info) Description 05/22/2023 Lab Requisition [facility] Laboratory Services 1 [place] [address] Victoriano Reid MD #1 [place] [address] Urinary tract infection, site not specified Social [...] Description 01/28/2025 10:30 AM CDT Clinical Support [facility] UROLOGY #2 [place] [address] Nurse, Ken Urology 02/02/2025 11:00 AM CDT [facility] 1 [facility] [place] [address] Cabrera Yadav MD #2 [facility] 300 [place] [address] Discharge Disposition: Discharged to home or Selfcare 02/10/2025 3:00 PM CDT [facility] 1 [place] [address] Elva Olivares, DO 2 [facility] 205 [place] [address] Discharge Disposition: Discharged to home or Selfcare 02/10/2025 4:00 PM CDT [facility] Ul[facility] 1 [facility] [place] [address] Elva Olivares, DO 2 [facility] 205 [place] [address] Discharge Disposition: Discharged to home or Selfcare 02/17/2025 1:40 PM CDT [facility] 1 [facility] [place] [address] Cabrera Yadav MD #2 [facility] [address] [place] [address] 02/17/2025 1:40 PM CDT - 02/17/2025 3:10 PM CDT [facility] 1 [facility] [place] [address] Cabrera Yadav MD #2 [facility] [address] [place] [address] CYSTOSCOPY AND LITHOLAPAXY, PATIENT WILL NEED A PAUL LIFT 03/02/2025 8:40 AM CDT Office Visit [facility] - Family Medicine - [place] #2 [place] [address] Elva Olivares, DO [address] [facility]. [address] [place] [address] Scheduled Procedures Name Priority Associated Diagnoses Date/Ti [...] RESULTS CITROBACTER AMALONATICUS 05/27/2023 3:22 PM CD[facility] RESULTS ALSO MIXED GROWTH OF DISTAL URETHRA CONTAMINANTS. 05/27/2023 3:22 PM CDT [facility] Urine Non-Phlebotomy Collection / [...] GENERAL ORDERABLE S Edited Result - Final [facility] [address] [place] [address], * (ABNORMAL) URINALYSIS REFLEX IF INDICATED BY ABNORMAL RESULTS (05/22/2023 1:00 PM CDT) SPECIFIC GRAVITY 1.010 1.003 - 1.030 05/22/2023 2:36 PM CDT [facility] URINE PH 7.0 5.0 - 9.0 05/22/2023 2:36 PM CDT [facility] WBC ESTERASE 500 /uL(A) Negative 05/22/2023 2:36 PM CDT [facility] NITRITE Positive(A) Negative 05/22/2023 2:36 PM CDT [facility] PROTEIN, RANDOM URINE 30 mg/dL(A) Negative 05/22/2023 2:36 PM CDT [facility] URINE GLUCOSE, QUAL Negative Negative 05/22/2023 2:36 PM CDT [facility] URINE KETONES Negative Negative 05/22/2023 2:36 PM CDT [facility] UROBILINOGEN Normal Normal mg/dL 05/22/2023 2:36 PM CDT [facility] UR[facility] BLOOD 250 /uL(A) Negative josefa/ul 05/22/2023 2:36 PM CDT [facility] URINALYSIS COLOR Yellow 05/22/2023 2:36 PM CDT [facility] URINALYSIS CLARITY Slightly Cloudy 05/22/2023 2:36 PM CDT [facility] WBC (Urine) 11-20(A) Negative, 0-5 /hpf 05/22/2023 2:36 PM CDT [facility] URINE RBC'S 51-150(A) Negative, 0-2 /hpf 05/22/2023 2:36 PM CDT [facility] EPITHELIAL CELLS Occasional /lpf 05/22/2023 2:36 PM CDT [facility] BACTERIA, URINE Packed(A) Negative /hpf 05/22/2023 2:36 PM CDT [facility] Urine Non-Phlebotomy Collection / Unknown 05/22/2023 1:00 PM CDT 05/22/2023 2:04 PM CDT us Victoriano Reid MD URINE ORDERABLES Final Result [facility] #1 [place] [address] documented in this encounter Visit Diagnoses Diagnosis Urinary tract infection, site not specified documented in this encounter Additional Health Concerns Assessment Noted Time PHQ-9 Depression Total Score: 0 08/15/20 21 10:00 AM CDT documented as of this encounter Care Teams Senior Clinical Data Coordinator Relationship Specialty Start Date End Date Victoriano Reid MD PCP - General Family Medicine 06/19/19 06/29/24 Elva Olivares DO 2 [facility] [address] [place] [address] PCP - General Family Medicine 07/01/24 Malissa Joe, RN [place] Nurse Global Marketing Specialist 12/03/23 12/03/23 Malissa Joe, RN [place] Nurse Global Marketing Specialist 12/05/23 12/05/23 [place], [facility] [place] Graduate Rn Global Marketing Specialist 11/03/24 Cabrera Yadav MD #2 [facility] [address] [place] [address] Consulting Physician Urology 11/07/24 documented as of this encounter
--- OUTSIDE RECORDS SUMMARY | 2025-01-26 18:00 | XMS_ITS | Encounter Summary ---
Author Organization [facility] Address [address] [place] [address] Phone Care Team Providers Care Manager Internship Name Role Phone Victoriano Reid MD Primary Care Provider Malissa Joe RN Unavailable Unavailable Malissa Joe RN Unavailable Unavailable Elva Olivares DO Primary Care Provider [phone] Hinton LAND INSPECTOR Unavailable Unaabdirizaki Cabrera Dodge MD Unavailable [phone] Encounter Details Date Type Department Care Team (Late st Contact Info) Description 02/12/2021 [facility] 1 [place] [address] Vishal Vee MD 8 [place] [address] Urinary tract infection, site not [...] 01/28/2025 10:30 AM CDT Clinical Support [facility] UROLOGY #2 [place] [address] Nurse, Ken Urology 02/02/2025 11:00 AM CDT [facility] 1 [facility] [place] [address] Cabrera Yadav MD #2 [facility] 300 [place] [address] Discharge Disposition: Discharged to home or Selfcare 02/10/2025 3:00 PM CDT [facility] Mamm[facility] 1 [place] [address] Elva Olivares, DO 2 [facility] 205 [place] [address] Discharge Disposition: Discharged to home or Selfcare 02/10/2025 4:00 PM CDT [facility] Ul[facility]ound 1 [place] [address] Elva Olivares, DO 2 [facility] 205 [place] [address] Discharge Disposition: Discharged to home or Selfcare 02/17/2025 1:40 PM CDT Hospital [facility] 1 [facility] [place] [address] Cabrera Yadav MD #2 [facility] [address] [place] [address] 02/17/2025 1:40 PM CDT - 02/17/2025 3:10 PM CDT [facility] 1 [place] [address] Cabrera Yadav MD #2 [facility] [address] [place] [address] CYSTOSCOPY AND LITHOLAPAXY, PATIENT WILL NEED A PAUL LIFT 03/02/2025 8:40 AM CDT Office Visit [facility] - Family Medicine - [place] #2 [place] [address] Elva Olivares, DO 2 [facility]. [address] [place] [address] Scheduled Procedures Name Priority Associated Diagnoses Date/Ti [...] - 12.00 10(3)/mcL 02/12/2021 12:08 PM CDT [facility] RBC 3.62(L) 3.80 - 5.30 10(6)/mcL 02/12/2021 12:08 PM CDT [facility] HEMOGLOBIN (HGB) 11.4(L) 12.0 - 15.8 g/dL 02/12/2021 12:08 PM CDT [facility] HEMATOCRIT (HCT) 34.6(L) 36.0 - 47.0 % 02/12/2021 12:08 PM CDT [facility] MCV 95.6 82.0 - 96.0 fL 02/12/2021 12:08 PM CDT [facility] MCH 31.5 26.0 - 34.0 pg 02/12/2021 12:08 PM CDT [facility] MCHC 32.9 31.0 - 36.0 g/dL 02/12/2021 12:08 PM CDT [facility] PLATELET COUNT 151 140 - 440 10(3)/mcL 02/12/2021 12:08 PM CDT [facility] Comment:No clot in tube, no clumps on smear RDW 14.7 11.8 - 15.5 % 02/12/2021 12:08 PM CDT [facility] MPV 12.2 9.7 - 12.4 fL 02/12/2021 12:08 PM CDT [facility] NEUTROPHILS 63.7 47.0 - 73.0 % 02/12/2021 12:08 PM CDT [facility] LYMPHOCYTES 24.1 18.0 - 42.0 % 02/12/2021 12:08 PM CDT [facility] MONOCYTES 9.2 4.0 - 12.0 % 02/12/2021 12:08 PM CDT [facility] EOSINOPHILS 2.5 0.0 - 5.0 % 02/12/2021 12:08 PM CDT [facility] BASOPHILS 0.5 0.0 - 1.0 % 02/12/2021 12:08 PM CDT [facility] ABSOLUTE NEUTROPHILS 5.00 1.60 - 7.70 10(3)/mcL 02/12/2021 12:08 PM CDT [facility] ABSOLUTE LYMPHOCYTES 1.89 1.30 - 3.20 10(3)/mcL 02/12/2021 12:08 PM CDT [facility] ABSOLUTE MONOCYTES 0.72 0.20 - 1.00 10(3)/mcL 02/12/2021 12:08 PM CDT [facility] ABSOLUTE EOSINOPHIL 0.20 0.00 - 0.40 10(3)/[facility] 02/12/2021 12:08 PM CDT [facility] ABSOLUTE BASOPHILS 0.04 0.00 - 0.10 10(3)/[facility] 02/12/2021 12:08 PM CDT [facility] NRBC PER 100 WBC 0 02/13/20 12:08 PM CDT [facility] RESULTS ARE CONSISTENT WITH PERIPHERAL SMEAR REVIEW Yes 02/12/2021 12:08 PM CDT [facility] Blood Venipuncture / Unknown 02/12/2021 10:40 AM CDT 02/12/2021 11:30 AM CDT us Vishal Vee MD HEMATOLOGY ORDERABLES Final Result [facility] #[address] [place] [address] documented in this encounter Visit Diagnoses Diagnosis Urinary tract infection, site not specified Thrombocytopenia, unspecified (HCC) Thrombocytopenia, unspecified documented in this encounter Additional Health Concerns Infection Onset Date Last Indicated Resolved Time 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 [facility] [address] [address] PCP - General Family Medicine 07/01/24 Malissa Joe, RN [place] Nurse Screen Cleaner 12/03/23 12/03/23 Malissa Joe, RN [place] Nurse Screen Cleaner 12/05/23 12/05/23 Hinton, [facility] Burrer Machine Screen Cleaner 11/03/24 Cabrera Yadav MD #[address] [address] Consulting Physician Urology 11/07/24 documented as of this encounter
--- OUTSIDE RECORDS SUMMARY | 2025-01-26 18:00 | XMS_ITS | Encounter Summary ---
Author Organization [facility] Address [address] [place] [address] Phone Care Team Providers Care Or Manager Name Role Phone Victoriano Reid MD Primary Care Provider [phone] Malissa Joe RN Unavailable Unavailable Malissa Joe RN Unavailable Unavailable Elva Olivares DO Primary Care Provider [phone] Hinton APPROVER Unavailable Cabrera Smallwood MD Unavailable [phone] Reason for Visit * Reason Comments Medication Refill Encounter Details Date Type Department Care Team (Late st Contact Info) Description 08/07/2022 Refill [facility] Medical Group - Family Medicine [facility] #2 [place] [address] Victoriano Reid MD #1 [place] [address] Medication Refill Social History Tobacco Use Types [...] [place] 08/15/21 Office Visit Victoriano Reid MD [facility] Ken Showing recent visits within past [...] days and meeting all other requirements nystatin [id number] UNIT/GM Powder [Pharmacy Med Name: NYSTOP TOP [...] [place] 08/15/21 Office Visit Victoriano Reid MD [facility] [place] [place] Ken Showing recent visits within past 365 days and meeting all other requirements Future Appointments No visits were found meeting these conditions. Showing future appointments within next 90 days and meeting all other requirements documented in this encounter Plan of Treatment Upcoming Encounters Date Type Department Care Team (Latest Contact Info) Description 01/28/2025 10:30 AM CDT Clinical Support [facility]Y #2 [facility] [place] [address] Nurse, [place] [facility] 02/02/2025 11:00 AM CD[facility] [address] [place] [address] Cabrera Yadav MD #2 [facility] [address] [place] [address] Discharge Disposition: Discharged to home or Selfcare 02/10/2025 3:00 PM CDT [facility] [address] [place] [address] Elva Olivares, DO 2 [facility] [address] [place] [address] Discharge Disposition: Discharged to home or Selfcare 02/10/2025 4:00 PM CDT Appointment [facility] Ultrasound [address] [place] [address] Elva Olivares, DO 2 [facility] [address] [place] [address] Discharge Disposition: Discharged to home or Selfcare 02/17/2025 1:40 PM CDT [facility] 1 [place] [address] Cabrera Yadav MD #[address] [facility] [address] [address] 02/17/2025 1:40 PM CDT - 02/17/2025 3:10 PM CDT [facility] 1 [place] [address] Cabrera Yadav MD #2 [facility]ILL[facility], [facility] [address] [place] [address] CYSTOSCOPY AND LITHOLAPAXY, PATIENT WILL NEED A PAUL LIFT 03/02/2025 8:40 AM CDT Office Visit [facility] - Family [facility] [place] #2 [place] [address] Elva Olivares DO 2 [facility] [address] [place] [address] Scheduled Procedures Name Priority Associated Diagnoses Date/Ti [...] documented as of this encounter Care Teams Or Manager Relationship Specialty Start Date End Date Victoriano Reid MD PCP - General Family Medicine 06/19/19 06/29/24 Elva Olivares DO 2 [facility] [address] [place] [address] PCP - General Family Medicine 07/01/24 Malissa Joe, RN [place] Nurse Campaign Associate 12/03/23 12/03/23 Malissa Joe, RN [place] Nurse Campaign Associate 12/05/23 12/05/23 Hinton [facility] [place] Insurance Verification Specialist Campaign Associate 11/03/24 Cabrera Yadav MD #2 [facility] [address] [place] [address] Consulting Physician Urology 11/07/24 documented as of this encounter
--- OUTSIDE RECORDS SUMMARY | 2025-01-26 18:00 | XMS_ITS | Encounter Summary ---
Author Organization [facility] Address [address] [place] [address] Phone Care Team Providers Care Insulation Worker Apprentice Name Role Phone Victoriano Reid MD Primary Care Provider [phone] Malissa Joe RN Unavailable Unavailable Malissa Joe RN Unavailable Unavailable Elva Olivares DO Primary Care Provider [phone] [place] HOSIERY MATER Unavailable Cabrera Smallwood MD Unavailable [phone] Reason for Visit * Reason Onset Date Comments Medication Refill 12/27/2021 Encounter Details Date Type Department Care Team (Late st Contact Info) Description 12/27/2021 Refill [facility] Medical Group - Family [facility] #2 [place] [address] Victoriano Reid MD #1 [place] [address] Medication Refill Social History Tobacco Use Types [...] [place] 02/14/21 Telemedicine Victoriano Reid MD Osmariela Rogers Showing recent visits within past 365 days and meeting all other requirements Future Appointments Date Type Provider Dept 01/02/22 Appointment Saranya Brooke APRN, HOSPITAL INSURANCE REPRESENTATIVE Juanmariela Rogers Showing future appointments within next 90 days and meeting all other requirements * Telephone Encounter - Estephanie Parham - 12/27/2021 9:11 AM CDT Received a faxed Rx request from pharmacy. Reordered refill medication(s) requested and pended for nurse and physician/NICKOLAS review. Refill encounter routed to nurse [employer] for processing. documented in this encounter Plan of Treatment Upcoming Encounters Date Type Department Care Team (Latest Contact Info) Description 01/28/2025 10:30 AM CDT Clinical Support [facility] #2 [place] [address] NurseKen Urology 02/02/2025 11:00 AM CDT [facility] [address] [place] [address] Cabrera Yadav MD #[address] [facility] [address] [place] [address] Discharge Disposition: Discharged to home or Selfcare 02/10/2025 3:00 PM CDT [facility] M[facility] [address] [place] [address] Elva Olivares, DO 2 [facility] [facility] [address] [place] [address] Discharge Disposition: Discharged to home or Selfcare 02/10/2025 4:00 PM CDT [facility] Ul[facility]ound [address] [place] [address] Elva Olivares, DO 2 [facility] [address] [place] [address] Discharge Disposition: Discharged to home or Selfcare 02/17/2025 1:40 PM CDT [facility] Per[facility] [address] [place] [address] Cabrera Yadav MD #[address] [address] 02/17/2025 1:40 PM CDT - 02/17/2025 3:10 PM CDT [facility] [address] [place] [address] Cabrera Yadav MD [address] [address] CYSTOSCOPY AND LITHOLAPAXY, PATIENT WILL NEED A PAUL LIFT 03/02/2025 8:40 AM CDT Office Visit [facility] Medical Group Family [facility] #2 [place] [address] Elva Olivares DO [address] [facility] [address] [place] [address] Scheduled Procedures Name Priority Associated Diagnoses Date/Ti me CYSTOSCOPY BLADDER STONE BLADDER STONES 02/17/2025 1:40 PM CDT documented as of this encounter Visit Diagnoses Not on filedocumented in this encounter Additional Health Concerns Assessment Noted Time PHQ-9 Depression Total Score: 0 08/15/20 10:00 AM CDT documented as of this encounter Care Teams Insulation Worker Apprentice Relationship Specialty Start Date End Date Victoriano Reid MD PCP - General Family Medicine 06/19/19 06/29/24 Elva Olivares DO [address] [facility] [address] [address] [place] [address] PCP - General Family Medicine 07/01/24 Malissa Joe RN [place] Nurse Breaker Off 12/03/23 12/03/23 Malissa Joe RN [place] Nurse Breaker Off 12/05/23 12/05/23 [place], HOSIERY MATER [place] Mobile Practice Lead Breaker Off 11/03/24 Cabrera Yadav MD #[address] [address] Consulting Physician Urology 11/07/24 documented as of this encounter
--- OUTSIDE RECORDS SUMMARY | 2025-01-26 18:00 | XMS_ITS | Encounter Summary ---
Author Organization [facility] Address [address] [place] [address] Phone Care Team Providers Care Genetic Counselor Name Role Phone Victoriano Reid MD Primary Care Provider [phone] Malissa Joe RN Unavailable Unavailable Malissa Joe RN Unavailable Unavailable Elva Olivares DO Primary Care Provider [phone] [place] LITIGATION ATTORNEY Unavailable Unaabdirizaki Cabrera Dodge MD Unavailable [phone] Encounter Details Date Type Department Care Team (Late st Contact Info) Description 11/23/2021 Lab Requisition [facility] 1 [place] [id number] Victoriano Reid MD #1 [place] [address] Extravasation of urine Social History Tobacco Use [...] Description 01/28/2025 10:30 AM CDT Clinical Support [facility] #2 [place] [address] Nurse, Ken Urology 02/02/2025 11:00 AM CDT [facility] 1 [facility] [address] Cabrera Yadav MD #2 [facility] [address] [place] [address] Discharge Disposition: Discharged to home or Selfcare 02/10/2025 3:00 PM CDT [facility] Mammography 1 [facility] [place] [address] Elva Olivares, DO 2 [facility] [address] [place] [address] Discharge Disposition: Discharged to home or Selfcare 02/10/2025 4:00 PM CDT [facility] Ultrasound 1 [facility] [place] [address] Elva Olivares, DO 2 [facility] [address] [place] [address] Discharge Disposition: Discharged to home or Selfcare 02/17/2025 1:40 PM CDT Hospital En[facility] Periop 1 [facility] [place] [address] Cabrera Yadav MD #2 [facility] [address] [place] [address] 02/17/2025 1:40 PM CDT - 02/17/2025 3:10 PM CDT Surgery [facility] Periop 1 [place] [address] Cabrera Yadav MD #2 [facility] [address] [place] [address] CYSTOSCOPY AND LITHOLAPAXY, PATIENT WILL NEED A PAUL LIFT 03/02/2025 8:40 AM CDT Office Visit [facility] Medical Group - Family Medicine [facility] #2 [place] [address] Elva Olivares, DO 2 [facility] [address] [place] [address] Scheduled Procedures Name Priority Associated Diagnoses Date/Ti me CYSTOSCOPY BLADDER STONE BLADDER STONES 02/17/2025 1:40 PM CDT documented as of this encounter Procedures Procedure Name Priority Date/Time Associated Diagnosis Comments URINALYSIS REFLEX IF INDICATED BY ABNORMAL RESULTS Routine 11/23/2021 12:00 PM FURNITURE ASSEMBLER AND INSTALLER Extravasation of urine CULTURE, URINE Routine 11/23/2021 12:00 PM FURNITURE ASSEMBLER AND INSTALLER Extravasation of urine documented in this encounter Results * CULTURE, URINE (11/23/2021 12:00 PM FURNITURE ASSEMBLER AND INSTALLER) CULTURE RESULTS STAPHYLOCOCCUS AUREUS 11/29/2021 1:01 PM FURNITURE ASSEMBLER AND INSTALLER [facility] Urine Non-Phlebotomy Collection / Unknown 11/23/2021 12:00 PM FURNITURE ASSEMBLER AND INSTALLER 11/23/2021 3:44 PM FURNITURE ASSEMBLER AND INSTALLER Narrative Organism Antibiotic Method Susceptibility Staphylococcus aureus [...] MICROBIOLOGY - GENERAL ORDERABLE S Final Result [facility] [address] [id number], [place] * (ABNORMAL) URINALYSIS REFLEX IF INDICATED BY ABNORMAL RESULTS (11/23/2021 12:00 PM FURNITURE ASSEMBLER AND INSTALLER) SPECIFIC GRAVITY 1.005 1.003 - 1.030 11/23/2021 4:41 PM FURNITURE ASSEMBLER AND INSTALLER [facility] URINE PH 7.0 5.0 - 9.0 11/23/2021 4:41 PM [facility] WBC ESTERASE 500 /uL(A) Negative 11/23/2021 4:41 PM [facility] NITRITE Positive(A) Negative 11/23/2021 4:41 PM [facility] PROTEIN, RANDOM URINE 30 mg/dL(A) Negative 11/23/2021 4:41 PM FURNITURE ASSEMBLER AND INSTALLER [facility] URINE GLUCOSE, QUAL Negative Negative 11/23/2021 4:41 PM [facility] URINE KETONES Negative Negative 11/23/2021 4:41 PM [facility] UROBILINOGEN Normal Normal mg/dL 11/23/2021 4:41 PM [facility] URINE BLOOD 250 /uL(A) Negative josefa/ul 11/23/2021 4:41 PM [facility] URINALYSIS COLOR Light yellow 2021 4:41 PM [facility] URINALYSIS CLARITY Slightly Cloudy 11/23/2021 4:41 PM [facility] WBC (Urine) Packed(A) Negative, 0-5 /hpf 11/23/2021 4:41 PM [facility] URINE RBC'S 51-150(A) Negative, 0-2 /hpf 11/23/2021 4:41 PM FURNITURE ASSEMBLER AND INSTALLER [facility] EPITHELIAL CELLS Small amount /lpf 2021 4:41 PM FURNITURE ASSEMBLER AND INSTALLER [facility] BACTERIA, URINE Many(A) Negative /hpf 11/23/2021 4:41 PM FURNITURE ASSEMBLER AND INSTALLER [facility] Urine Non-Phlebotomy Collection / Unknown 11/23/2021 12:00 PM FURNITURE ASSEMBLER AND INSTALLER 11/23/2021 3:44 PM FURNITURE ASSEMBLER AND INSTALLER Victoriano Reid MD URINE ORDERABLES Final Result [facility] #1 [place] [address] documented in this encounter Visit Diagnoses Diagnosis Extravasation of urine documented in this encounter Additional Health Concerns Assessment Noted Time PHQ-9 Depression Total Score: 0 08/15/20 21 10:00 AM CDT documented as of this encounter Care Teams Genetic Counselor Relationship Specialty Start Date End Date Victoriano Reid MD PCP - General Family Medicine 06/19/19 06/29/24 Elva Olivares DO 2 [facility] [address] [place] [address] PCP - General Family Medicine 07/01/24 Malissa Joe, RN [place] Nurse Outpatient Therapist 12/03/23 12/03/23 Malissa Joe, RN [place] Nurse Outpatient Therapist 12/05/23 12/05/23 [place] LSW [place] Correction Officer Penitentiary Outpatient Therapist 11/03/24 Cabrera Yadav MD #2 [facility] [address] [place] [address] Consulting Physician Urology 11/07/24 documented as of this encounter
--- OUTSIDE RECORDS SUMMARY | 2025-01-26 18:00 | XMS_ITS | Encounter Summary ---
Author Organization [facility] Address [address] [place] [address] Phone Care Team Providers Care Officer Captain Name Role Phone Victoriano Reid MD Primary Care Provider [phone] Malissa Joe RN Unavailable Unavailable Malissa Joe RN Unavailable Unavailable Elva Olivares DO Primary Care Provider [phone] [place] WELDING MACHINE SETTER Unavailable Unaabdirizaki Cabrera Dodge MD Unavailable [phone] Encounter Details Date Type Department Care Team (Late st Contact Info) Description 04/24/2023 Lab Requisition [facility] Laboratory Services [address] [place] [phone] Victoriano Reid MD #1 [place] [address] Personal history of urinary (tract) infections Social [...] 10:30 AM CDT Clinical Support [facility] #2 [place] [address] Nurse, [place] [facility] 02/02/2025 11:00 AM CDT [facility] [address] [place] [address] Cabrera Yadav MD #2 [facility] [address] [place] [address] Discharge Disposition: Discharged to home or Selfcare 02/10/2025 3:00 PM CDT [facility] 1 [place] [address] Elva Olivares, DO 2 [facility] [address] [place] [address] Discharge Disposition: Discharged to home or Selfcare 02/10/2025 4:00 PM CDT [facility] 1 [place] [address] Elva Olivares, DO 2 [facility] [address] [place] [address] Discharge Disposition: Discharged to home or Selfcare 02/17/2025 1:40 PM CDT [facility] [address] [place] [address] Cabrera Yadav MD #2 [facility] [address] [place] [address] 02/17/2025 1:40 PM CDT - 02/17/2025 3:10 PM CDT [facility] 1 [facility] [place] [address] Cabrera Yadav MD #2 [facility] [address] [place] [address] CYSTOSCOPY AND LITHOLAPAXY, PATIENT WILL NEED A PAUL LIFT 03/02/2025 8:40 AM CDT Office Visit [facility] Medical Group - Family Medicine - [place] #2 [place] [address] Elva Olivares, DO 2 [facility] [address] [place] [address] Scheduled Procedures Name Priority Associated Diagnoses Date/Ti [...] RESULTS [facility]RO[facility] AMALONATICUS 04/26/2023 8:20 PM CDT [facility] CULTURE RESULTS ENTEROCOCCUS FAECALIS 04/26/2023 8:20 PM CDT [facility] Urine Non-Phlebotomy Collection / Unknown 04/24/2023 12:54 PM CDT 04/24/2023 2:33 PM CDT Narrative [facility] - 04/26/2023 8:20 PM CDT Susceptibility [...] - GENERAL ORDERABLE S Final Result [facility] [address] [place] [address], * (ABNORMAL) URINALYSIS REFLEX IF INDICATED BY ABNORMAL RESULTS (04/24/2023 12:54 PM CDT) SPECIFIC GRAVITY 1.005 1.003 - 1.030 04/24/2023 3:02 PM CDT [facility] URINE PH 7.0 5.0 - 9.0 04/24/2023 3:02 PM CDT [facility] WBC ESTERASE 500 /uL(A) Negative 04/24/2023 3:02 PM [facility] NITRITE Positive(A) Negative 04/24/2023 3:02 PM CDT [facility] PROTEIN, RANDOM URINE 30 mg/dL(A) Negative 04/24/2023 3:02 PM CDT [facility] GLUCOSE, QUAL Negative Negative 04/24/2023 3:02 PM CDT [facility] URINE KETONES Negative Negative 04/24/2023 3:02 PM CDT [facility] UROBILINOGEN Normal Normal mg/dL 04/24/2023 3:02 PM CDT [facility] UR[facility] BLOOD 250 /uL(A) Negative josefa/ul 04/24/2023 3:02 PM CDT [facility] URINALYSIS COLOR Yellow 04/24/20 3:02 PM CDT [facility] URINALYSIS CLARITY Very Cloudy 04/24/2023 3:02 PM CDT [facility] WBC (Urine) 51-150(A) Negative, 0-5 /hpf 04/24/2023 3:02 PM CDT [facility] URINE RBC'S 51-150(A) Negative, 0-2 /hpf 04/24/2023 3:02 PM CDT [facility] EPITHELIAL CELLS Moderate amount /lpf 04/24/2023 3:02 PM CDT [facility] BACTERIA, URINE Many(A) Negative /hpf 04/24/2023 3:02 PM CDT [facility] CRYSTALS Amorphous urates 04/24/2023 3:02 PM CDT [facility] Urine Non-Phlebotomy Collection / Unknown 04/24/2023 12:54 PM CDT 04/24/2023 2:33 PM CDT us Victoriano Reid MD URINE ORDERABLES Final Result [facility]1 [facility] [place] [address] documented in this encounter Visit Diagnoses Diagnosis Personal history of urinary (tract) infections documented in this encounter Additional Health Concerns Assessment Noted Time PHQ-9 Depression Total Score: 0 08/15/20 21 10:00 AM CDT documented as of this encounter Care Teams Officer Captain Relationship Specialty Start Date End Date Victoriano Reid MD PCP - General Family Medicine 06/19/19 06/29/24 Elva Olivares DO 2 [facility] [address] [place] [address] PCP - General Family Medicine 07/01/24 Malissa Joe, RN [place] Nurse Credit Union Examiner 12/03/23 12/03/23 Malissa Joe RN [place] Nurse Credit Union Examiner 12/05/23 12/05/23 [place] LSW [place] Package Yarns Drying Machine Operator Credit Union Examiner 11/03/24 Cabrera Yadav MD #2 [facility] [address] [place] [address] Consulting Physician Urology 11/07/24 documented as of this encounter
--- OUTSIDE RECORDS SUMMARY | 2025-01-26 18:00 | XMS_ITS | Encounter Summary ---
Author Organization [facility] Address [address] [place] [address] Phone Care Team Providers Care Winding Inspector Name Role Phone Victoriano Reid MD Primary Care Provider [phone] Malissa Joe RN Unavailable Unavailable Malissa Joe RN Unavailable Unavailable Elva Olivares DO Primary Care Provider [phone] [place] WELDING ESTIMATOR Unavailable Unaabdirizaki Cabrera Dodge MD Unavailable [phone] Encounter Details Date Type Department Care Team (Late st Contact Info) Description 06/28/2022 Lab Requisition [facility] Laboratory Services 1 [place] [address] Rafi Yun MD #1 [place] [address] Painful micturition, unspecified Social History Tobacco Use [...] 01/28/2025 10:30 AM CDT Clinical Support [facility] #2 [place] [address] Nurse, Ken Urology 02/02/2025 11:00 AM CD[facility] 1 [facility] [place] [address] Cabrera Yadav MD #2 [facility] [address] [place] [address] Discharge Disposition: Discharged to home or Selfcare 02/10/2025 3:00 PM CDT [facility] 1 [place] [address] Elva Olivares, DO 2 [facility] [address] [place] [address] Discharge Disposition: Discharged to home or Selfcare 02/10/2025 4:00 PM CDT [facility] 1 [facility] [place] [address] Elva Olivares, DO 2 [facility] [address] [place] [address] Discharge Disposition: Discharged to home or Selfcare 02/17/2025 1:40 PM CDT [facility] 1 [facility] [place] [address] Cabrera Yadav MD #2 [facility] [address] [place] [address] 02/17/2025 1:40 PM CDT - 02/17/2025 3:10 PM CDT [facility] 1 [facility] [place] [address] Cabrera Yadav MD #2 [facility] [address] [place] [address] CYSTOSCOPY AND LITHOLAPAXY, PATIENT WILL NEED A PAUL LIFT 03/02/2025 8:40 AM CDT Office Visit [facility] Medical Group - Family Medicine - [place] #2 [facility] [place] [address] Elva Olivraes, DO 2 [facility]. [address] [place] [address] Scheduled Procedures Name Priority Associated Diagnoses Date/Ti [...] REPEAT URINE CULTURE. 06/29/2022 8:16 PM CDT [facility] Non-Phlebotomy Collection / Unknown 06/28/2022 10:45 AM CDT 06/28/2022 12:42 PM CDT us Rafi Yun MD MICROBIOLOGY - GENERAL ORDERABL ES Final Result [facility] [address] [place] [address], * (ABNORMAL) URINALYSIS REFLEX IF INDICATED BY ABNORMAL RESULTS (06/28/2022 10:45 AM CDT) SPECIFIC GRAVITY 1.020 1.003 - 1.030 06/28/2022 1:04 PM CDT [facility] PH 6.0 5.0 - 9.0 06/28/2022 1:04 PM CDT [facility] WBC ESTERASE 500 /uL(A) Negative 06/28/2022 1:04 PM CDT [facility] NITRITE Positive(A) Negative 06/28/2022 1:04 PM CDT [facility] PROTEIN, RANDOM URINE 100 mg/dL(A) Negative 06/28/2022 1:04 PM CDT [facility] URINE GLUCOSE, QUAL Negative Negative 06/28/2022 1:04 PM CDT [facility] URINE KETONES Negative Negative 06/28/2022 1:04 PM CDT [facility] UROBILINOGEN Normal Normal mg/dL 06/28/2022 1:04 PM CDT [facility] URINE BLOOD 250 /uL(A) Negative josefa/ul 06/28/2022 1:04 PM CDT [facility] URINALYSIS COLOR Yellow 06/28/20 22 1:04 PM CDT [facility] URINALYSIS CLARITY Very Cloudy 06/28/2022 1:04 PM CDT [facility] WBC (Urine) Packed(A) Negative, 0-5 /hpf 06/28/2022 1:04 PM CDT [facility] URINE RBC'S Packed(A) Negative, 0-2 /hpf 06/28/2022 1:04 PM CDT [facility] EPITHELIAL CELLS Negative /lpf 06/28/20 22 1:04 PM CDT [facility] BACTERIA, URINE Few(A) Negative /hpf 06/28/2022 1:04 PM CDT [facility] Urine Non-Phlebotomy Collection / Unknown 06/28/2022 10:45 AM CDT 06/28/2022 12:42 PM CDT us Rafi Yun MD URINE ORDERABLES Final Result [facility] #1 [place] [address] documented in this encounter Visit Diagnoses Diagnosis Painful micturition, unspecified documented in this encounter Additional Health Concerns Assessment Noted Time PHQ-9 Depression Total Score: 0 08/15/20 10:00 AM CDT documented as of this encounter Care Teams Winding Inspector Relationship Specialty Start Date End Date Victoriano Reid MD PCP - General Family Medicine 06/19/19 06/29/24 Elva Olivares DO 2 [facility]. [address] [place] [address] PCP - General Family Medicine 07/01/24 Malissa Joe, RN [place] Nurse Factory Supervisor 12/03/23 12/03/23 Malissa Joe, RN [place] Nurse Factory Supervisor 12/05/23 12/05/23 [place], WELDING ESTIMATOR [place] Chemist Proteins Factory Supervisor 11/03/24 Cabrera Yadav MD #2 [facility] [address] [place] [address] Consulting Physician Urology 11/07/24 documented as of this encounter
--- OUTSIDE RECORDS SUMMARY | 2025-01-26 18:00 | XMS_ITS | Encounter Summary ---
Author Organization [facility] Address [address] [place] [address] Phone Care Team Providers Care Digital Tech Name Role Phone Victoriano Reid MD Primary Care Provider [phone] Malissa Joe RN Unavailable Unavailable Malissa Joe RN Unavailable Unavailable Elva Olivares DO Primary Care Provider [phone] [place] MEDICAL OFFICE RECEPTIONIST Unavailable Cabrera Smallwood MD Unavailable [phone] Reason for Visit * Reason Comments Medication Refill Encounter Details Date Type Department Care Team (Late st Contact Info) Description 09/30/2020 Refill [facility] Medical Group - Family Medicine [facility] [address] [place] [id number] Victoriano Reid MD #1 [place] [address] Medication Refill Social History Tobacco Use Types [...] discontinued on 08/06/2020 by Victoriano Reid MD TRONICS ENGINEERING MANAGER documented in this encounter Plan of Treatment Upcoming Encounters Date Type Department Care Team (Latest Contact Info) Description 01/28/2025 10:30 AM CDT Clinical Support [facility] PHYSICIAN GROUP UROLOGY #[address] [place] [address] Nurse, [place] [facility] 02/02/2025 11:00 AM CDT Appointment [facility] [address] [place] [address] Cabrera Yadav MD #2 [facility] [address] [place] [address] Discharge Disposition: Discharged to home or Selfcare 02/10/2025 3:00 PM CDT Appointment [facility] Mammography 1 [place] [address] Elva Olivares, DO 2 [facility] [address] [place] [address] Discharge Disposition: Discharged to home or Selfcare 02/10/2025 4:00 PM CDT Appointment [facility] Ultrasound 1 [place] [address] Elva Olivares, DO 2 [facility] [address] [place] [address] Discharge Disposition: Discharged to home or Selfcare 02/17/2025 1:40 PM CDT Hospital Encounter [facility] Periop 1 [facility] [place] [address] Cabrera Yadav MD #2 [facility] [address] [place] [address] 02/17/2025 1:40 PM CDT - 02/17/2025 3:10 PM CDT Surgery [facility] Periop 1 [facility] [place] [address] Cabrera Yadav MD #[address] [address] CYSTOSCOPY AND LITHOLAPAXY, PATIENT WILL NEED A PAUL LIFT 03/02/2025 8:40 AM CDT Office Visit [facility] - Family Medicine [facility] #[address] [place] [address] Elva Olivares DO 2 [facility] [address] [place] [address] Scheduled Procedures Name Priority Associated Diagnoses Date/Ti [...] Total Score: 0 10/24/19 20 11:16 AM ELECTRONICS ENGINEERING MANAGER documented as of this encounter Care Teams Digital Tech Relationship Specialty Start Date End Date Victoriano Reid MD PCP - General Family Medicine 06/19/19 06/29/24 Elva Olivares DO 2 [facility] [address] [place] [address] PCP - General Family Medicine 07/01/24 Malissa Joe, RN [place] Nurse Road Traffic Controller 12/03/23 12/03/23 Malissa Joe, RN [place] Nurse Road Traffic Controller 12/05/23 12/05/23 [place], [facility] Scientific Writer Road Traffic Controller 11/03/24 Cabrera Yadav MD #2 [facility] [address] [place] [address] Consulting Physician Urology 11/07/24 documented as of this encounter
--- OUTSIDE RECORDS SUMMARY | 2025-01-26 18:00 | XMS_ITS | Encounter Summary ---
Author Organization [facility] Address [address] [place] [address] Phone Care Team Providers Care Parking Regulation Enforcement Officer Name Role Phone Victoriano Reid MD Primary Care Provider [phone] Malissa Joe RN Unavailable Unavailable Malissa Joe RN Unavailable Unavailable Elva Olivares DO Primary Care Provider [phone] [place] BREAK OUT MAN Unavailable Unaabdirizaki Cabrera Dodge MD Unavailable [phone] Encounter Details Date Type Department Care Team (Late st Contact Info) Description 01/02/2022 Home Health Resumpti on of Care Planning [facility] [address] [place] [address] Social History Tobacco Use Types Packs/Day Years [...] AM CDT Clinical Support [facility] PHYSICIAN GROUP UROLOGY #[address] [place] [address] Nurse, [facility] 02/02/2025 11:00 AM CDT [facility] [address] [facility] [place] [address] Cabrera Yadav MD #2 [facility] [address] [place] [address] Discharge Disposition: Discharged to home or Selfcare 02/10/2025 3:00 PM CDT [facility]ment [facility] Mamm[facility] 1 [facility] [place] [address] Elva Olivares, DO 2 [facility] [address] [place] [address] Discharge Disposition: Discharged to home or Selfcare 02/10/2025 4:00 PM CDT [facility]ment [facility] Ul[facility]ound 1 [facility] [place] [address] Elva Olivares, DO 2 [facility] [address] [place] [address] Discharge Disposition: Discharged to home or Selfcare 02/17/2025 1:40 PM CDT Hospital En[facility] Periop 1 [facility] [place] [address] Cabrera Yadav MD #2 [facility] [address] [place] [address] 02/17/2025 1:40 PM CDT - 02/17/2025 3:10 PM CDT [facility] Periop 1 [place] [address] Cabrera Yadav MD #2 [facility] [address] [place] [address] CYSTOSCOPY AND LITHOLAPAXY, PATIENT WILL NEED A PAUL LIFT 03/02/2025 8:40 AM CDT Office Visit [facility] Medical Group - Family Medicine [facility] #[address] [place] [address] Elva Olivares DO 2 [facility] [address] [place] [address] Scheduled Procedures Name Priority Associated Diagnoses Date/Ti va CYSTOSCOPY BLADDER STONE BLADDER STONES 02/17/2025 1:40 PM CDT documented as of this encounter Visit Diagnoses Not on filedocumented in this encounter Additional Health Concerns Assessment Noted Time PHQ-9 Depression Total Score: 0 08/15/20 21 10:00 AM CDT documented as of this encounter Care Teams Parking Regulation Enforcement Officer Relationship Specialty Start Date End Date Victoriano Redi MD PCP - General Family Medicine 06/19/19 06/29/24 Elva Olivares DO 2 [facility] [address] [place] [address] PCP - General Family Medicine 07/01/24 Malissa Joe RN [place] Nurse Bag Grader 12/03/23 12/03/23 Malissa Joe RN [place] Nurse Bag Grader 12/05/23 12/05/23 [place], BREAK OUT MAN [place] Bag Grader 1/20/25 1/24/ 25 Cabrera Yadav MD #[address] [address] Consulting Physician Urology 11/07/24 documented as of this encounter
--- OUTSIDE RECORDS SUMMARY | 2025-01-26 18:00 | XMS_ITS | Encounter Summary ---
Author Organization [facility] Address [address] [place] [address] Phone Care Team Providers Care Industrial Refrigeration Mechanic Name Role Phone Victoriano Reid MD Primary Care Provider [phone] Malissa Joe RN Unavailable Unavailable Malissa Joe RN Unavailable Unavailable Elva Olivares DO Primary Care Provider [phone] [place] SECOND GRADE TEACHER Unavailable Cabrera Smallwood MD Unavailable [phone] Reason for Visit * Reason Comments Medication Refill Encounter Details Date Type Department Care Team (Late st Contact Info) Description 10/02/2020 Refill [facility] Medical Group - Family Medicine [facility] #[address] [place] [phone] Victoriano Reid MD #[address] [place] [address] Medication Refill Social History Tobacco Use Types [...] Visits Recent Outpatient Visits 1 month ago [facility] Victoriano Toledo MD 8 months ago Paralysis of both lower limbs (HCC) [facility] Victoriano Toledo MD 11 months ago Uncontrolled type 2 diabetes mellitus with hyperglycemia (HCC) [facility] Victoriano Toledo MD 1 year ago 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) [facility] Victoriano Toledo MD 1 year ago Annual visit for general adult medical examination with abnormal findings [facility] Victoriano Toledo MD Upcoming Appointments Future Appointments In 3 days Sharonda Carrion, FRANCIS [facility] In 1 week Naa Rios RN [facility] In 1 week Sharonda Carrion PTA [facility] In 2 weeks Sharonda Carrion, GERIATRIC SOCIAL WORK PROFESSOR [facility] In 2 weeks Sharonda Carrion, GERIATRIC SOCIAL WORK PROFESSOR [facility] In 3 weeks Naa Rios RN [facility] In 3 weeks Lorraine Russell, JIM [facility] In 3 weeks Sharonda Carrion, GERIATRIC SOCIAL WORK PROFESSOR [facility] In 1 month Sharonda Carrion, GERIATRIC SOCIAL WORK PROFESSOR [facility] In 1 month Sharonda Carrion, GERIATRIC SOCIAL WORK PROFESSOR [facility] In 1 month Naa Rios RN [facility] In 1 month Sharonda Carrion, GERIATRIC SOCIAL WORK PROFESSOR [facility] In 1 month Sharonda Carrion, GERIATRIC SOCIAL WORK PROFESSOR [facility] In 1 month [facility], [facility], [facility] 1 month Naa Rios RN [facility] Health COAL MINER - Recent and Past Visits Recent Visits Date Type Provider Dept 08/06/20 Telemedicine Victoriano Reid MD [facility] 01/22/20 Telemedicine Victoriano Reid MD [facility] 10/24/19 Office Visit Victoriano Reid MD [facility] 07/17/19 Office Visit [facility] Showing recent visits within past 460 days with a meds authorizing provider and meeting all other requirements Future Appointments No visits were found meeting these conditions. Showing future appointments within next 90 days with a meds authorizing provider and meeting all other requirements OWS SERVER SUPPORT TECHNICIAN documented in this encounter Plan of Treatment Upcoming Encounters Date Type Department Care Team (Latest Contact Info) Description 01/28/2025 10:30 AM CDT Clinical Support [facility] PHYSICIAN GROUP UROLOGY #2 [place] [address] Nurse, [facility] 02/02/2025 11:00 AM CDT [facility] [address] [place] [address] Cabrera Yadav MD #2 [facility] [address] [place] [address] Discharge Disposition: Discharged to home or Selfcare 02/10/2025 3:00 PM CDT [facility] Mammography 1 [place] [address] Elva Olivares, DO 2 [facility] [address] [place] [address] Discharge Disposition: Discharged to home or Selfcare 02/10/2025 4:00 PM CDT [facility] Ultrasound 1 [place] [address] Elva Olivares, DO 2 [facility] [address] [place] [address] Discharge Disposition: Discharged to home or Selfcare 02/17/2025 1:40 PM CDT Hospital [facility] 1 [facility] [place] [address] Cabrera Yadav MD #2 [facility] [address] [place] [address] 02/17/2025 1:40 PM CDT - 02/17/2025 3:10 PM CDT Surgery [facility] 1 [facility] [place] [address] Cabrera Yadav MD #2 [facility] [place] [address] CYSTOSCOPY AND LITHOLAPAXY, PATIENT WILL NEED A PAUL LIFT 03/02/2025 8:40 AM CDT Office Visit [facility] Medical Group - Family Medicine [facility] #2 [place] [address] Elva Olivares, DO 2 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 [address] [place] [address] PCP - General Family Medicine 07/01/24 Malissa Joe, RN [place] Nurse Catering Associate 12/03/23 12/03/23 Malissa Joe, RN [place] Nurse Catering Associate 12/05/23 12/05/23 [place], SECOND GRADE TEACHER [place] Route Delivery Manager Catering Associate 11/03/24 Cabrera Yadav MD #2 [facility] [address] [place] [address] Consulting Physician Urology 11/07/24 documented as of this encounter
--- OUTSIDE RECORDS SUMMARY | 2025-01-26 18:00 | XMS_ITS | Clinical Summary ---
Author Organization [facility] Address [address] [place] [address] Phone Care Team Providers Care Strategy Manager Name Role Phone EliseElva Becky GARCIA Primary Care Provider [phone] Cabrera Yadav MD Unavailable [phone] Allergies Active Allergy Reactions Criticality Noted Date [...] Uncontrolled type 2 diabetes mellitus with hyperglycemia ([facility]) USE PRIOR TO TESTING BLOOD SUGAR AND FOR INSULIN INJECTIONS, TEST 4 TIMES PER DAY 100 Each 6 023 Active Misc. Devices MiscIndications: Spinal cord compression due to malignant neoplasm metastatic to spine ([facility]) Supply and instructions: please assess and repair pump on the air mattress. 1 Each 024 Active Misc. Devices MiscIndications: Spinal cord compression due to malignant neoplasm metastatic to spine ([facility]) Supply and instructions: 1 Each 024 Active ergocalciferol (VITAMIN D) 83337 UNIT CapsuleIndicatio ns:Vitamin D Deficiency TAKE 1 [...] for diarrhea 100 Capsule 1 024 Active nystatin 786258 UNIT/GM Powder Apply 3 times daily. Apply to affected area as directed. 60 g 3 024 Active oxybutynin (DITROPAN-XL) 10 MG TABLET SR 24 HRIndications:Ur inary Incontinence,rosa romuscular bladder dysfunction Take 1 Tablet by mouth daily. 90 Tablet 1 Active Simethicone 80 MG TabletIndication s:Flatulence Take 1 Tablet by mouth 4 times daily as needed for Other (for gas). 360 Each 1 Active Diclofenac Sodium (VOLTAREN) 1 % GelIndications:p ain L shoulder Apply 4 g 4 times daily. Left shoulder 100 g 5 Active Citric Mb-[id number]-J g Carb (Renacidin) SolutionIndicati ons:Urinary Catheter Irrigation 30 mL by Intracatheter route daily. instill 30ml into catheter daily. Clamp catheter for 30-60minutes after irrigation. Use saline solution to flush until can be obtained 2700 mL 3 Active nitrofurantoin, monohydrate-macr ocrystal, (Macrobid) 100 MG Capsule Take 100 mg by mouth 2 times daily. Take one dose every 12 hours until completed. Active aspirin EC 81 MG Tablet Delayed Response Take 81 mg by mouth daily. Active potassium chloride (MICRO-K) 10 MEQ Capsule CR TAKE 1 CAPSULE BY MOUTH TWICE DAILY 180 Capsule 1 Active acyclovir (ZOVIRAX) 400 MG Tablet TAKE 1 TABLET BY MOUTH THREE TIMES DAILY 90 Tablet 1 025 Active baclofen (LIORESAL) 10 MG Tablet TAKE 1 TABLET BY MOUTH THREE TIMES DAILY NEEDED FOR MUSCLE SPASMS 90 Tablet 025 Active montelukast (SINGULAIR) 10 MG Tablet Take 1 Tablet by mouth every evening. 90 Tablet 1 025 Active baclofen (LIORESAL) 10 MG TabletIndication s:Muscle Spasm,Muscle Spasticity TAKE 1 TABLET BY MOUTH THREE TIMES DAILY NEEDED FOR MUSCLE SPASMS 270 Tablet 024 2024 Discontinued montelukast (SINGULAIR) 10 MG Tablet Take 1 Tablet by mouth every evening. 90 Tablet 1 024 2024 Discontinued(R eorder) Active Problems Problem Noted Date Diagnosed Date [...] Encounters Date Type Department Care Team Description 01/19/2025 Refill [facility] [facility] [place] [address] Elva Olivares, DO Medication Refill 01/14/2025 Refill [facility] - [place] [address] [place] [address] Victoriano Reid MD Medication Refill 01/14/2025 Travel 01/09/2025 Telephone [facility] [place] [address] Cabrera Yadav MD 01/08/2025 Telephone [facility] [place] [address] Cabrera Yadav MD 01/02/2025 10:30 AM CDT Procedure Visit [facility] [place] [address] Cabrera Yadav MD Neurogenic bladder (Primary Dx); UTI symptoms; Gross hematuria Discharge Disposition: Discharged to home or Selfcare 01/02/2025 Travel 12/19/2024 [facility]phone [facility] [address] [place] [address] Elva Olivares, DO Care Management 12/09/2024 Refill [facility] #2 [place] [address] Victoriano Reid MD Medication Refill 11/21/2024 1:15 PM SOIL SCIENTIST Clinical Support [facility] #2 [place] [address] NurseGarth Urology Suprapubic catheter (HCC) (Primary Dx) Discharge Disposition: Discharged to home or Selfcare 11/21/2024 Travel 11/10/2024 [facility] [address] [place] [address] Elva Olivares, DO COVID-19 11/10/2024 [facility] [address] [place] [address] Elva Olivares, DO Sinus Pain 11/07/2024 12:45 PM SOIL SCIENTIST Office Visit [facility] #2 [place] [address] Singh Myrick APRN, ACETYLENE GAS COMPRESSOR Cabrera Yadav MD Neurogenic bladder; Suprapubic catheter (HCC) Discharge Disposition: Discharged to home or Selfcare 11/06/2024 Travel 11/03/2024 [facility] Coater Operator Insulation Board Management [address] [place] [address] [place], [facility] Care Management (SW outreach ) 10/30/2024 [facility]phone [facility] [address] [place] [address] Elva Olivares, Orders from Last 3 Months Family History Medical [...] 0.6 oz pur e alcohol) [facility] Utilities Answer Date Recorded In the past 12 months has [employer] electric, gas, oil, or water company threatened [...] attend chur ch or tenriism services? Never 04/15/2024 Do you belong to any clubs o r organizations such as faith groups, unions, fraternal or athletic groups, or [...] Total Score - Questions 1-9 0 12/14 [facility] [...] in a usp (including now)? No 12/20/2023 Housing Stability Vital Sign Answer Saleem e Recorded In the last 12 months, was t here a time when you were not able to pay the mortgage or rent on time? No 04/15/2024 Number of Times Moved in the Last Year Not on fi le 04/15/2024 At any time in the past 12 m [facility], were you homeless or living in a usp (including now)? No 04/15/2024 Education Answer Date [...] 36.2 C (97.2 F) 10/16/2024 12:38 PM SOIL SCIENTIST Respiratory Rate 18 11/07/2024 12:31 PM SOIL SCIENTIST Oxygen Saturation 93% 01/02/2025 10:41 AM CDT Inhaled Oxygen Concentration - - Weight 172.4 kg (380 lb) 01/02/2025 10:41 AM CDT Height 167.6 cm (5' 6 ) 01/02/2025 10:41 AM CDT Body Mass Index 61.33 01/02/2025 10:41 AM CDT Plan of Treatment Upcoming Encounters Date Type Department Care Team (Latest Contact Info) Description 01/28/2025 10:30 AM CDT Clinical Support [facility] #2 [place] [address] NurseGarth Urology 02/02/2025 11:00 AM CDT Appointment [facility] CT [address] [place] [address] Cabrera Yadav MD #2 [facility] [address] [place] [address] Discharge Disposition: Discharged to home or Selfcare 02/10/2025 3:00 PM CDT Appointment [facility] Mammography 1 [place] [address] Elva Olivares, DO 2 [facility]. [address] [place] [address] Discharge Disposition: Discharged to home or Selfcare 02/10/2025 4:00 PM CDT Appointment [facility] Ultrasound [address] [place] [address] Elva Olivares, DO 2 [facility] [address] [place] [address] Discharge Disposition: Discharged to home or Selfcare 02/17/2025 1:40 PM CDT [facility] 1 [facility] [place] [address] Cabrera Yadav MD #2 [facility] [address] [place] [address] 02/17/2025 1:40 PM CDT - 02/17/2025 3:10 PM CDT [facility] 1 [facility] [place] [address] Cabrera Yadav MD #[address] [address] CYSTOSCOPY AND LITHOLAPAXY, PATIENT WILL NEED A PAUL LIFT 03/02/2025 8:40 AM CDT Office Visit [facility] #[address] [place] [address] Elva Olivares, DO 2 [facility] [address] [place] [address] Scheduled Procedures Name Priority Associated Diagnoses Date/Ti [...] Priority Date/Time Associated Diagnosis Comments PATHOLOGY CYTOLOGY NON-AIR CONDITIONING SERVICE TECHNICIAN Routine 01/02/2025 11:01 AM CDT Neurogenic bladder UTI symptoms CULTURE, URINE Routine 01/02/2025 11:01 AM CDT Neurogenic bladder UTI symptoms UR MICROALBUMIN/CREATIN INE RATIO RANDOM Routine 05/27/2024 1:00 PM CDT Type 2 diabetes mellitus without complications (HCC) Other half-way (current) drug therapy POCT GLYCOSYLATED HEMOGLOBIN Routine 04/15/2024 11:24 AM CDT Type 2 diabetes mellitus without complication, without long-term current use of insulin (HCC) from Last 3 Months or Most Recently Relevant to Health Maintenance Results * PATHOLOGY CYTOLOGY NON-AIR CONDITIONING SERVICE TECHNICIAN (01/02/2025 11:01 AM CDT) Case Report Medical Cytology Report Case: [id number] Authorizing Provider: Cabrera Yadav MD Collected: 01/02/2025 11:01 AM Ordering Location: [facility] Received: 01/02/2025 11:01 AM GROUP UROLOGY Pathologist: Azra Moncada MD PhD Specimen: Urine Bladder 01/06/2025 10:31 AM CDT [facility] FINAL DIAGNOSIS Urine for Cytology: - Less than optimal due to degeneration - Negative for high-grade urothelial carcinoma - Degenerated epithelial cells, neutrophils, and debris 01/06/2025 10:31 AM CDT [facility] at 1031 CDT Gross Description A. [...] 95% alcohol. MH/dv 01/06/2025 10:31 AM CDT [facility] Other (Urine Bladder) Non-Phlebotomy Collection / Unknown 01/02/2025 11:01 AM CDT 01/02/2025 11:01 AM CDT Cabrera Ward MD PATHOLOGY/CYTOLOGY ORDERABLES Final Result [facility] #1 [place] [address] * CULTURE, URINE (01/02/2025 11:01 AM CDT) CULTURE RESULTS KLEBSIELLA OXYTOCA 01/05/2025 4:05 PM CDT [facility] CULTURE RESULTS ESCHERICHIA COLI 01/05/2025 4:05 PM CDT [facility] CULTURE RESULTS ENTEROCOCCUS FAECALIS 01/05/2025 4:05 PM CDT [facility] Culture (Pre-Op Catheter) Non-Phlebotomy Collection / Unknown 01/02/2025 11:01 AM CDT 01/02/2025 11:01 AM CDT Narrative [facility] - 01/05/2025 4:05 PM CDT Susceptibility [...] IIB <=1 mcg/ml: Susceptible Escherichia coli Trimeth/Sulfamethoxazole SF VITEK I IB <=20 mcg/ml: Susceptible Enterococcus faecalis Ampicillin [facility] VITEK IIB <=2 mcg/ml: Susceptible Enterococcus faecalis Benzylpenicillin [facility]K IIB 1 mcg/ml: Susceptible Enterococcus faecalis Linezolid [facility] V[facility]K IIB 2 mcg/ml: Susceptible Enterococcus faecalis Vancomycin [facility] IIB 2 mcg/ml: Susceptible us Cabrera Ward MD MICROBIOLOGY - GENERAL ORDERAB LES Final Result Performing Organization Address City/[facility]/ZIP Co de Phone Number [facility] [address] [place] [address], [place] * (ABNORMAL) UR MICROALBUMIN/CREATININE RATIO RANDOM (05/27/2024 1:00 PM CDT) RAN UR MICROALBUMIN 0.89 mg/dL 05/27/2024 3:00 PM CDT [facility] Comment:No reference range h as been established. Consider Clinical Correlation. CREATININE URINE 7.4 mg/dL 05/27/20 3:00 PM CDT [facility] Comment:No reference range h as been established. Consider Clinical Correlation. ALB/CREAT RATIO 120(H) 0 - 30 mg/g CRE 05/27/2024 3:00 PM CDT [facility] Urine Non-Phlebotomy Collection / Unknown 05/27/2024 1:00 PM CDT 05/27/2024 2:30 PM CDT us Singh Myrick APRN, ACETYLENE GAS COMPRESSOR URINE ORDERABLES Final Result Performing Organization Address City/[facility]/ZIP Co de Phone Number [facility] #1 [place] [address] * POCT GLYCOSYLATED HEMOGLOBIN (04/15/2024 11:24 AM CDT) HGB-A1C 6.0 4 - 6 % Blood 04/15/2024 11:2 4 AM CDT Singh Myrick TANK OPERATOR, ACETYLENE GAS COMPRESSOR POINT OF CARE TE STING (MANUAL) Final Result from Last 3 Months or Most Recently Relevant to Health Maintenance Insurance MEDICAID [place] MED[employer] [place] [employer] Advance Directives * Full Code (Latest Code Status on File) Date Activated Date Inactivated Comments 04/10/2019 2:14 PM Care Teams Strategy Manager Relationship Specialty Start Date End Date Elva Olivares DO 2 [address] ME[address] [facility]. [address] [place] [address] PCP - General Family Medicine 07/01/24 Cabrera Yadav MD #2 [address] [facility] [facility] [address] [place] [address] Consulting Physician Urology 11/07/24
--- OUTSIDE RECORDS SUMMARY | 2025-01-26 18:00 | XMS_ITS | Encounter Summary ---
Author Organization [facility] Address [address] [place] [address] Phone Care Team Providers Care Plant General Manager Name Role Phone Victoriano Reid MD Primary Care Provider [phone] Malissa Joe RN Unavailable Unavailable Malissa Joe RN Unavailable Unavailable Elva Olivares DO Primary Care Provider [phone] [place] BRIAR SHOP SUPERVISOR Unavailable Unaabdirizaki Cabrera Dodge MD Unavailable [phone] Encounter Details Date Type Department Care Team (Late st Contact Info) Description 03/18/2021 Lab Requisition [facility] 1 [place] [phone] Victoriano Reid MD #1 [place] [address] Neuromuscular dysfunction of bladder, unspecified; Acute cystitis [...] Description 01/28/2025 10:30 AM CDT Clinical Support [facility] #2 [place] [address] Nurse, Ken Urology 02/02/2025 11:00 AM CDT [facility] [address] [facility] [place] [place] [address] aCbrera Yadav MD #2 [facility] [address] [place] [address] Discharge Disposition: Discharged to home or Selfcare 02/10/2025 3:00 PM CDT [facility] M[facility] 1 [place] [address] Elva Olivares, DO 2 [facility]. [address] [place] [address] Discharge Disposition: Discharged to home or Selfcare 02/10/2025 4:00 PM CDT [facility] [address] [facility] [place] [address] Elva Olivares, DO 2 [facility] [address] [place] [address] Discharge Disposition: Discharged to home or Selfcare 02/17/2025 1:40 PM CDT Hospital [facility] 1 [place] [address] Cabrera Yadav MD #2 [facility] [address] [place] [address] 02/17/2025 1:40 PM CDT - 02/17/2025 3:10 PM CDT [facility] 1 [facility] [place] [address] Cabrera Yadav MD #2 [facility] [address] [place] [address] CYSTOSCOPY AND LITHOLAPAXY, PATIENT WILL NEED A PAUL LIFT 03/02/2025 8:40 AM CDT Office Visit [facility] - Family Medicine [facility] #[address] [place] [address] Elva Olivares, DO 2 [facility] [address] [address] Scheduled Procedures Name Priority Associated Diagnoses Date/Ti [...] DISTAL URETHRAL CONTAMINANTS 03/19/2021 8:12 PM CDT [facility]rine Non-Phlebotomy Collection / Unknown 03/18/2021 1:41 PM CDT us Victoriano Reid MD MICROBIOLOGY - GENERAL ORDERABLE S Final Result [facility] [address] [place] [address], * (ABNORMAL) URINALYSIS REFLEX IF INDICATED BY ABNORMAL RESULTS (03/18/2021 2:20 PM CDT) SPECIFIC GRAVITY 1.010 1.003 - 1.030 03/18/2021 2:20 PM CDT [facility] URINE PH 8.0 5.0 - 9.0 03/18/2021 2:20 PM CDT [facility] WBC ESTERASE 500 /uL(A) Negative 03/18/2021 2:20 PM CDT [facility] NITRITE Positive(A) Negative 03/18/2021 2:20 PM CDT [facility] PROTEIN, RANDOM URINE Negative Negative 03/18/2021 2:20 PM CDT [facility] URINE GLUCOSE, QUAL Negative Negative 03/18/2021 2:20 PM CDT [facility] URINE KETONES Negative Negative 03/18/2021 2:20 PM CDT [facility] UROBILINOGEN Normal Normal mg/dL 03/18/2021 2:20 PM CDT [facility] URINE BILIRUBIN Negative Negative 2:20 PM CDT [facility] URINE BLOOD 150 /uL(A) Negative josefa/ul 03/18/2021 2:20 PM CDT [facility] URINALYSIS COLOR Straw 03/18/2021 2:20 PM CDT [facility] URINALYSIS CLARITY Very Cloudy 03/18/2021 2:20 PM CDT [facility] WBC (Urine) 11-20(A) Negative, 0-5 /hpf 03/18/2021 2:20 PM CDT [facility] URINE RBC'S 6-10(A) Negative, 0-2 /hpf 03/18/2021 2:20 PM CDT [facility] EPITHELIAL CELLS Small amount /lpf 03/18/2021 2:20 PM CDT [facility] BACTERIA, URINE Moderate(A) Negative /hpf 03/18/2021 2:20 PM CDT [facility] URINE MUCOUS Many 03/18/2021 2:20 PM CDT [facility] CRYSTALS Amorphous phosphates 03/18/2021 2:20 PM CDT [facility] Urine Non-Phlebotomy Collection / Unknown 03/18/2021 1:41 PM CDT us Victoriano Reid MD URINE ORDERABLES Final Result [facility]1 [place] [address] documented in this encounter Visit Diagnoses Diagnosis Neuromuscular dysfunction of bladder, unspecified Acute cystitis without hematuria Acute cystitis Sepsis, unspecified organism (HCC) documented in this encounter Additional Health Concerns Infection Onset Date Last Indicated Resolved Time 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 06/05/2019 04/15/2021 7:28 AM CDT Assessment Noted Time PHQ-9 Depression Total Score: 0 10/24/19 20 11:16 AM ELECTRIC FAN ASSEMBLER documented as of this encounter Care Teams Plant General Manager Relationship Specialty Start Date End Date Victoriano Reid MD PCP - General Family Medicine 06/19/19 06/29/24 Elva lOivares DO [address] [address] PCP - General Family Medicine 07/01/24 Malissa Joe, RN [place] Nurse Production Wood Craftsman 12/03/23 12/03/23 Malissa Joe RN [place] Nurse Production Wood Craftsman 12/05/23 12/05/23 [place], BRIAR SHOP SUPERVISOR [place] Fixed Income Manager Production Wood Craftsman 11/03/24 Cabrera Yadav MD #2 [place] [address] Consulting Physician Urology 11/07/24 documented as of this encounter
--- OUTSIDE RECORDS SUMMARY | 2025-01-26 18:00 | XMS_ITS | Encounter Summary ---
Author Organization [facility] Address [address] [place] [address] Phone Care Team Providers Care Corporate Concierge Name Role Phone Victoriano Reid MD Primary Care Provider [phone] Malissa Joe RN Unavailable Unavailable Malissa Joe RN Unavailable Unavailable Elva Olivares DO Primary Care Provider [phone] [place] GLOBAL HUMAN RESOURCES DIRECTOR Unavailable Cabrera Smallwood MD Unavailable [phone] Reason for Visit * Reason Comments Medication Refill Encounter Details Date Type Department Care Team (Late st Contact Info) Description 06/08/2022 Refill [facility] - [facility] #2 [place] [address] Victoriano Reid MD #1 [place] [address] Medication Refill Social History Tobacco Use Types [...] [place] 08/15/21 Office Visit Victoriano Reid MD [facility] [place] Showing recent visits within past 365 [...] Dept 01/05/22 Office Visit Nia Abbott PAC [facility] [place] 08/15/21 Office Visit Victoriano Reid MD [facility] Showing recent visits within past 365 days and meeting all other requirements Future Appointments No visits were found meeting these conditions. Showing future appointments within next 90 days and meeting all other requirements documented in this encounter Plan of Treatment Upcoming Encounters Date Type Department Care Team (Latest Contact Info) Description 01/28/2025 10:30 AM CDT Clinical Support [facility] #2 [facility] [place] [address] Nurse, Ken Urology 02/02/2025 11:00 AM CDT [facility]ointment [facility] [address] [address] Cabrera Yadav MD #2 [facility] [address] [place] [address] Discharge Disposition: Discharged to home or Selfcare 02/10/2025 3:00 PM CDT Appointment [facility] Mammography [address] [place] [address] lEva Olivares, DO 2 [facility] [address] [place] [address] Discharge Disposition: Discharged to home or Selfcare 02/10/2025 4:00 PM CDT Appointment [facility] Ultrasound 1 [facility] [place] [address] Elva Olivares, DO 2 [facility] [address] [place] [address] Discharge Disposition: Discharged to home or Selfcare 02/17/2025 1:40 PM CDT [facility] 1 [facility] [place] [address] Cabrera Yadav MD #[address] [address] 02/17/2025 1:40 PM CDT - 02/17/2025 3:10 PM CDT [facility] 1 [facility] [place] [address] Cabrera Yadav MD #[address] [address] CYSTOSCOPY AND LITHOLAPAXY, PATIENT WILL NEED A PAUL LIFT 03/02/2025 8:40 AM CDT Office Visit [facility] - Family Medicine [facility] #2 [place] [address] Elva Olivares DO 2 [facility] [address] [place] [address] Scheduled Procedures Name Priority Associated Diagnoses Date/Ti me CYSTOSCOPY BLADDER STONE BLADDER STONES 02/17/2025 1:40 PM CDT documented as of this encounter Visit Diagnoses Diagnosis 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) documented in this encounter Additional Health Concerns Assessment Noted Time PHQ-9 Depression Total Score: 0 08/15/20 21 10:00 AM CDT documented as of this encounter Care Teams Corporate Concierge Relationship Specialty Start Date End Date Victoriano Reid MD PCP - General Family Medicine 06/19/19 06/29/24 Elva Olivares DO 2 [facility] [address] [place] [address] PCP - General Family Medicine 07/01/24 Malissa Joe, RN [place] Nurse Assembler Dry Cell And Battery 12/03/23 12/03/23 Malissa Joe, RN [place] Nurse Assembler Dry Cell And Battery 12/05/23 12/05/23 [place] GLOBAL HUMAN RESOURCES DIRECTOR [place] Reel Hooker Assembler Dry Cell And Battery 11/03/24 Cabrera Yadav MD #2 [facility] [address] [place] [address] Consulting Physician Urology 11/07/24 documented as of this encounter
--- OUTSIDE RECORDS SUMMARY | 2025-01-26 18:00 | XMS_ITS | Encounter Summary ---
Author Organization [facility] Address [address] [place] [address] Phone Care Team Providers Care Rough Rice Grader Name Role Phone Victoriano Reid MD Primary Care Provider [phone] Malissa Joe RN Unavailable Unavailable Malissa Joe RN Unavailable Unavailable Elva Olivares DO Primary Care Provider [phone] Hinton BRAKE RIDER Unavailable Cabrera Smallwood MD Unavailable [phone] Reason for Visit * Reason Comments Medication Refill Encounter Details Date Type Department Care Team (Late st Contact Info) Description 02/26/2022 Refill [facility] - Family Medicine [facility] #2 [place] [address] Victoriano Reid MD #1 [place] [address] Medication Refill Social History Tobacco Use Types [...] Dept 01/05/22 Office Visit Nia Abbott PAC [facility] Ken 08/15/21 Office Visit Victoriano Reid MD [facility] Showing recent visits within past 365 days and meeting all other requirements Future Appointments No visits were found meeting these conditions. Showing future appointments within next 90 days and meeting all other requirements documented in this encounter Plan of Treatment Upcoming Encounters Date Type Department Care Team (Latest Contact Info) Description 01/28/2025 10:30 AM CDT Clinical Support [facility] UROLOGY #2 [place] [address] Nurse, Ken Urology 02/02/2025 11:00 AM CDT Appointment [facility] CT 1 [place] [address] Cabrera Yadav MD #[address] [address] Discharge Disposition: Discharged to home or Selfcare 02/10/2025 3:00 PM CDT Appointment [facility] Mammography 1 [facility] [place] [address] Elva Olivares, DO 2 [facility] [address] [place] [address] Discharge Disposition: Discharged to home or Selfcare 02/10/2025 4:00 PM CDT Appointment [facility] Ultrasound 1 [facility] [place] [address] Elva Olivares, DO 2 [facility] [address] [place] [address] Discharge Disposition: Discharged to home or Selfcare 02/17/2025 1:40 PM CDT [facility] 1 [facility] [place] [address] Cabrera Yadav MD #2 [facility] [address] [address] 02/17/2025 1:40 PM CDT - 02/17/2025 3:10 PM CDT Surgery [facility] Periop 1 [facility] [place] [address] Cabrera Yadav MD #[address] [address] CYSTOSCOPY AND LITHOLAPAXY, PATIENT WILL NEED A PAUL LIFT 03/02/2025 8:40 AM CDT Office Visit [facility] - Family Medicine [facility] #2 [facility] [address] Elva Olivares, DO [address] [facility] [address] [place] [address] Scheduled Procedures Name Priority Associated Diagnoses Date/Ti nc CYSTOSCOPY BLADDER STONE BLADDER STONES 02/17/2025 1:40 PM CDT documented as of this encounter Visit Diagnoses Diagnosis Muscle spasm Spasm of muscle documented in this encounter Additional Health Concerns Assessment Noted Time PHQ-9 Depression Total Score: 0 08/15/20 10:00 AM CDT documented as of this encounter Care Teams Rough Rice Grader Relationship Specialty Start Date End Date Victoriano Reid MD PCP - General Family Medicine 06/19/19 06/29/24 Elva Olivares DO 2 [facility] [address] [place] [address] PCP - General Family Medicine 07/01/24 Malissa Joe, RN [place] Nurse Instrument Engineer 12/03/23 12/03/23 Malissa Joe RN [place] Nurse Instrument Engineer 12/05/23 12/05/23 Hinton, BRAKE RIDER [place] Health And Safety Trainer Instrument Engineer 11/03/24 Cabrera Yadav MD #2 [facility] [address] [place] [address] Consulting Physician Urology 11/07/24 documented as of this encounter
--- OUTSIDE RECORDS SUMMARY | 2025-01-26 18:00 | XMS_ITS | Encounter Summary ---
Author Organization [facility] Address [address] [place] [address] Phone Care Team Providers Care Airplane Cleaner Name Role Phone Victoriano Reid MD Primary Care Provider [phone] Malissa Joe RN Unavailable Unavailable Malissa Joe RN Unavailable Unavailable Elva Olivares DO Primary Care Provider [phone] Hinton DIAMOND FINISHING SUPERVISOR Unavailable Unaabdirizaki Cabrera Dodge MD Unavailable [phone] Encounter Details Date Type Department Care Team (Late st Contact Info) Description 07/11/2023 Lab Requisition [facility] Laboratory Services 1 [place] [address] Victoriano Reid MD #1 [place] [address] Personal history of urinary (tract) infections; Neuromuscular [...] Description 01/28/2025 10:30 AM CDT Clinical Support [facility] #2 [place] [address] Nurse, Ken Urology 02/02/2025 11:00 AM CDT [facility] 1 [facility] [place] [address] Cabrera Yadav MD #2 [facility] [address] [place] [address] Discharge Disposition: Discharged to home or Selfcare 02/10/2025 3:00 PM CDT [facility] Mammography 1 [place] [address] Elva Olivares, DO 2 [facility] [address] [place] [address] Discharge Disposition: Discharged to home or Selfcare 02/10/2025 4:00 PM CDT [facility] Ul[facility] 1 [facility] [place] [address] Elva Olivares, DO 2 [facility] [address] [place] [address] Discharge Disposition: Discharged to home or Selfcare 02/17/2025 1:40 PM CDT [facility] 1 [facility] [place] [address] Cabrera Yadav MD #2 [facility] [address] [place] [address] 02/17/2025 1:40 PM CDT - 02/17/2025 3:10 PM CDT Surgery [facility] Periop 1 [facility] [place] [address] Cabrera Yadav MD #2 [facility] [address] [place] [address] CYSTOSCOPY AND LITHOLAPAXY, PATIENT WILL NEED A PAUL LIFT 03/02/2025 8:40 AM CDT Office Visit [facility] - Family Medicine [facility] #2 [place] [address] Elva Olivares, DO 2 [facility] [address] [address] Scheduled Procedures Name Priority Associated Diagnoses Date/Ti [...] RESULTS CITROBACTER AMALONATICUS 07/14/2023 4:[address] [facility] CULTURE RESULTS ENTEROCOCCUS FAECALIS 07/14/2023 4:[address] [facility] Culture No Phlebotomy Charged / Unknown 07/11/2023 11:30 AM CDT 07/11/2023 1:[address] [facility] - 07/14/2023 4:17 PM CDT Susceptibility not [...] - GENERAL ORDERABLE S Final Result [facility] [address] [place] [address], documented in this encounter Visit Diagnoses Diagnosis Personal history of urinary (tract) infections Neuromuscular dysfunction of bladder, unspecified documented in this encounter Additional Health Concerns Assessment Noted Time PHQ-9 Depression Total Score: 0 08/15/20 21 10:00 AM CDT documented as of this encounter Care Teams Airplane Cleaner Relationship Specialty Start Date End Date Victoriano Reid MD PCP - General Family Medicine 06/19/19 06/29/24 Elva Olivares DO [address] [address] PCP - General Family Medicine 07/01/24 Joe, Malissa M, RN [place] Nurse University Teacher 12/03/23 12/03/23 Malissa Joe, RN [place] Nurse University Teacher 12/05/23 12/05/23 Hinton, DIAMOND FINISHING SUPERVISOR [place] Bell Spinner Sousaphones University Teacher 11/03/24 Cabrera Yadav MD #[address] [address] Consulting Physician Urology 11/07/24 documented as of this encounter
--- OUTSIDE RECORDS SUMMARY | 2025-01-26 18:00 | XMS_ITS | Encounter Summary ---
Author Organization [facility] Address [address] [place] [address] Phone Care Team Providers Care Product Safety Lead Name Role Phone Victoriano Reid MD Primary Care Provider [phone] Malissa Joe RN Unavailable Unavailable Malissa Joe RN Unavailable Unavailable Elva Olivares DO Primary Care Provider [phone] Hinton CLAIMS VICE PRESIDENT Unavailable Unaabdirizaki Cabrera Dodge MD Unavailable [phone] Encounter Details Date Type Department Care Team (Late st Contact Info) Description 08/31/2023 Lab Requisition [facility] Laboratory Services 1 [place] [address] Victoriano Reid MD #1 [place] [address] Urinary tract infection, site not specified Social [...] Description 01/28/2025 10:30 AM CDT Clinical Support [facility] UROLOGY #2 [place] [address] Nurse, Ken Urology 02/02/2025 11:00 AM CDT [facility] [place] [address] Cabrera Yadav MD #2 [facility] [address] [place] [address] Discharge Disposition: Discharged to home or Selfcare 02/10/2025 3:00 PM CDT [facility] M[facility] 1 [place] [address] Elva Olivares, DO 2 [facility] [address] [place] [address] Discharge Disposition: Discharged to home or Selfcare 02/10/2025 4:00 PM CDT [facility] 1 [place] [address] Elva Olivares, DO 2 [facility] [address] [place] [address] Discharge Disposition: Discharged to home or Selfcare 02/17/2025 1:40 PM CDT Hospital [facility] 1 [facility] [place] [address] Cabrera Yadav MD #2 [facility] [address] [place] [address] 02/17/2025 1:40 PM CDT - 02/17/2025 3:10 PM CDT Surgery [facility] Periop 1 [place] [address] Cabrera Yadav MD #2 [facility] [address] [place] [address] CYSTOSCOPY AND LITHOLAPAXY, PATIENT WILL NEED A PAUL LIFT 03/02/2025 8:40 AM CDT Office Visit [facility] - Family Medicine - [place] #2 [place] [address] Elva Olivares, DO 2 [facility]. [address] [place] [address] Scheduled Procedures Name Priority Associated Diagnoses Date/Ti me CYSTOSCOPY BLADDER STONE BLADDER STONES 02/17/2025 1:40 PM CDT documented as of this encounter Procedures Procedure Name Priority Date/Time Associated Diagnosis Comments URINALYSIS REFLEX IF INDICATED BY ABNORMAL RESULTS Routine 08/31/2023 12:00 PM STONE TRIMMER Urinary tract infection, site not specified CULTURE, URINE Routine 08/31/2023 12:00 PM STONE TRIMMER Urinary tract infection, site not specified documented in this encounter Results * CULTURE, URINE (08/31/2023 12:00 PM STONE TRIMMER) CULTURE RESULTS ENTEROCOCCUS FAECALIS 09/02/2023 6:17 PM STONE TRIMMER [facility] Urine Non-Phlebotomy Collection / Unknown 08/31/2023 12:00 PM STONE TRIMMER 08/31/2023 1:39 PM STONE TRIMMER [facility] 6[facility]17 PM STONE TRIMMER Susceptibility not performed on enterococcus species. Due to high achievable concentrations in urine, Ampicillin is the drug of choice for treating infections limited to the lower urinary tract (regardless of Vancomycin susceptibility). For allergic patients, Nitrofurantoin or a quinolone may be substituted. us Victoriano Reid MD MICROBIOLOGY - GENERAL ORDERABLE S Final Result [facility] [address] [place] [address], [place] * (ABNORMAL) URINALYSIS REFLEX IF INDICATED BY ABNORMAL RESULTS (08/31/2023 12:00 PM STONE TRIMMER) SPECIFIC GRAVITY 1.005 1.003 - 1.030 08/31/2023 2:27 PM STONE TRIMMER [facility] URINE PH 7.0 5.0 - 9.0 08/31/2023 2:27 PM [facility] WBC ESTERASE 500 /uL(A) Negative 08/31/2023 2:27 PM [facility] NITRITE Negative Negative 08/31/2023 2:27 PM [facility] PROTEIN, RANDOM URINE 30 mg/dL(A) Negative 08/31/2023 2:27 PM [facility] URINE GLUCOSE, QUAL Negative Negative 08/31/2023 2:27 PM [facility] URINE KETONES Negative Negative 08/31/2023 2:27 PM [facility] UROBILINOGEN Normal Normal mg/dL 08/31/2023 2:27 PM [facility] URINE BLOOD 250 /uL(A) Negative josefa/ul 08/31/2023 2:27 PM [facility] URINALYSIS COLOR Yellow 08/31/2023 2:27 PM [facility] URINALYSIS CLARITY Slightly Cloudy 08/31/2023 2:27 PM [facility] WBC (Urine) 6-10(A) Negative, 0-5 /hpf 08/31/2023 2:27 PM [facility] URINE RBC'S 3-5(A) Negative, 0-2 /hpf 08/31/2023 2:27 PM [facility] EPITHELIAL CELLS Occasional /lpf 08/31/2023 2:27 PM STONE TRIMMER [facility] BACTERIA, URINE Few(A) Negative /hpf 08/31/2023 2:27 PM STONE TRIMMER [facility] Urine Non-Phlebotomy Collection / Unknown 08/31/2023 12:00 PM STONE TRIMMER 08/31/2023 1:39 PM STONE TRIMMER Victoriano Reid MD URINE ORDERABLES Final Result [facility] #1 [place] [address] documented in this encounter Visit Diagnoses Diagnosis Urinary tract infection, site not specified documented in this encounter Additional Health Concerns Assessment Noted Time PHQ-9 Depression Total Score: 0 08/15/20 21 10:00 AM CDT documented as of this encounter Care Teams Product Safety Lead Relationship Specialty Start Date End Date Victoriano Reid MD PCP - General Family Medicine 06/19/19 06/29/24 Elva Olivares DO 2 [facility] [address] [place] [address] PCP - General Family Medicine 07/01/24 Malissa Joe, RN [place] Nurse Jordan Worker 12/03/23 12/03/23 Malissa Joe, RN [place] Nurse Jordan Worker 12/05/23 12/05/23 Hinton LSW [place] Public Relations Studies Director Jordan Worker 11/03/24 Cabrera Yadav MD #2 [facility] [address] [place] [address] Consulting Physician Urology 11/07/24 documented as of this encounter
--- OUTSIDE RECORDS SUMMARY | 2025-01-26 18:00 | XMS_ITS | Encounter Summary ---
Author Organization [facility] Address [address] [place] [address] Phone Care Team Providers Care Car Rental Service Attendant Name Role Phone Victoriano Reid MD Primary Care Provider [phone] Malissa Joe RN Unavailable Unavailable Malissa Joe RN Unavailable Unavailable Elva Olivares DO Primary Care Provider [phone] Hinton LITHOGRAPHER APPRENTICE Unavailable Cabrera Smallwood MD Unavailable [phone] Reason for Visit * Reason Comments Medication Refill Encounter Details Date Type Department Care Team (Late st Contact Info) Description 11/05/2021 Refill [facility] Medicine [facility] #2 [place] [address] Victoriano Reid MD #1 [place] [address] Medication Refill Social History Tobacco Use Types [...] 11/07/2021 8:53 AM CST ergocalciferol (VITAMIN D) 80130 UNIT Capsule 12 Capsule 3 08/15/2021 Sig - Route: Take 1 Capsule by mouth once a week. On Sunday - Oral Sent to pharmacy as: Ergocalciferol 1.25 MG (50555 UT) Oral Capsule (VITAMIN D) Class: E Prescribe E-Prescribing Status: Receipt confirmed by pharmacy (08/15/2021 ??1:57 PM CDT) Order Questions ?? ergocalciferol (VITAMIN D) 29263 UNIT Capsule [[id number]] 1357 Status: Active Ordering user: Victoriano Reid MD 08/15/21 135 Authorized by: Victoriano Reid MD Frequency: Weekly 08/15/21 - Until Discontinued Diagnoses Vitamin D deficiency [E55.9] Associated Diagnoses Vitamin D deficiency Pharmacy [id number] [place] [address] Refills on file DE BARREL POLISHER documented in this encounter Plan of Treatment Upcoming Encounters Date Type Department Care Team (Latest Contact Info) Description 01/28/2025 10:30 AM CDT Clinical Support [facility] UROLOGY #2 [place] [address] NurseKen Urology 02/02/2025 11:00 AM CDT Appointment [facility] CT 1 [facility] [place] [address] Cabrera Yadav MD #2 [facility] [address] [address] Discharge Disposition: Discharged to home or Selfcare 02/10/2025 3:00 PM CDT Appointment [facility] Mammography 1 [facility] [place] [address] Elva Olivares, DO 2 [facility] [address] [place] [address] Discharge Disposition: Discharged to home or Selfcare 02/10/2025 4:00 PM CDT Appointment [facility] Ultrasound 1 [place] [address] Elva Olivares, DO 2 [facility] [address] [place] [address] Discharge Disposition: Discharged to home or Selfcare 02/17/2025 1:40 PM CDT [facility] 1 [facility] [place] [address] Cabrera Yadav MD #[address] [address] 02/17/2025 1:40 PM CDT - 02/17/2025 3:10 PM CDT Surgery [facility] Periop 1 [place] [address] Cabrera Yadav MD #[address] [address] CYSTOSCOPY AND LITHOLAPAXY, PATIENT WILL NEED A PAUL LIFT 03/02/2025 8:40 AM CDT Office Visit [facility] Medical Group - Family [facility] #2 [place] [address] Elva Olivares DO 2 [facility] [address] [place] [address] Scheduled Procedures Name Priority Associated Diagnoses Date/Ti me CYSTOSCOPY BLADDER STONE BLADDER STONES 02/17/2025 1:40 PM CDT documented as of this encounter Visit Diagnoses Diagnosis Vitamin D deficiency Unspecified vitamin D deficiency documented in this encounter Additional Health Concerns Assessment Noted Time PHQ-9 Depression Total Score: 0 08/15/20 21 10:00 AM CDT documented as of this encounter Care Teams Car Rental Service Attendant Relationship Specialty Start Date End Date Victoriano Reid MD PCP - General Family Medicine 06/19/19 06/29/24 Elva Olivares DO 2 [facility] [address] [place] [address] PCP - General Family Medicine 07/01/24 Malissa Joe, RN [place] Nurse Cash Applications Clerk 12/03/23 12/03/23 Malissa Joe, RN [place] Nurse Cash Applications Clerk 12/05/23 12/05/23 Hinton, [facility] [place] Bottom Saw Operator Cash Applications Clerk 11/03/24 Cabrera Yadav MD #2 [facility] [address] [place] [address] Consulting Physician Urology 11/07/24 documented as of this encounter
--- OUTSIDE RECORDS SUMMARY | 2025-01-26 18:00 | XMS_ITS | Encounter Summary ---
Author Organization [facility] Address [address] [place] [address] Phone Care Team Providers Care Stereotype Finisher Name Role Phone Victoriano Reid MD Primary Care Provider [phone] Malissa Joe RN Unavailable Unavailable Malissa Joe RN Unavailable Unavailable lEva Olivares DO Primary Care Provider [phone] [place] IT RISK ANALYST Unavailable Unaabdirizaki Cabrera Dodge MD Unavailable [phone] Encounter Details Date Type Department Care Team (Late st Contact Info) Description 10/22/2020 Lab Requisition [facility] Laboratory Services 1 [place] [id number] Victoriano Reid MD #1 [place] [address] Neuromuscular dysfunction of bladder, unspecified; Personal history [...] Clinical Support [facility] UROLOGY #[address] [address] Nurse, Ken Urology 02/02/2025 11:00 AM CDT [facility]ment [facility] [address] [place] [address] Cabrera Yadav MD #2 [facility] [address] [place] [address] Discharge Disposition: Discharged to home or Selfcare 02/10/2025 3:00 PM CDT [facility]ment [facility] Mammography [address] [place] [address] Elva Olivares, DO 2 [facility] [address] [place] [address] Discharge Disposition: Discharged to home or Selfcare 02/10/2025 4:00 PM CDT [facility]ointment [facility] Ultrasound [address] [place] [address] Elva Olivares, DO 2 [facility] [address] [place] [address] Discharge Disposition: Discharged to home or Selfcare 02/17/2025 1:40 PM CDT Hospital En[facility] Periop [address] [place] [address] Cabrera Yadav MD #2 [facility] [address] [place] [address] 02/17/2025 1:40 PM CDT - 02/17/2025 3:10 PM CDT Surgery [facility] Periop 1 [facility] [address] [place] [address] Cabrera Yadav MD #2 [address], [facility] [address] [place] [address] CYSTOSCOPY AND LITHOLAPAXY, PATIENT WILL NEED A PAUL LIFT 03/02/2025 8:40 AM CDT Office Visit [facility] Medical Group - Family Medicine [facility] #2 [place] [address] Elva Olivares, DO 2 [facility]. [address] [place] [address] Scheduled Procedures Name Priority Associated Diagnoses Date/Ti me CYSTOSCOPY BLADDER STONE BLADDER STONES 02/17/2025 1:40 PM CDT documented as of this encounter Procedures Procedure Name Priority Date/Time Associated Diagnosis Comments URINALYSIS REFLEX IF INDICATED BY ABNORMAL RESULTS Routine 10/22/2020 10:45 AM SPEECH AND LANGUAGE TUTOR Neuromuscular dysfunction of bladder, unspecified CULTURE, URINE Routine 10/22/2020 10:45 AM SPEECH AND LANGUAGE TUTOR Neuromuscular dysfunction of bladder, unspecified documented in this encounter Results * CULTURE, URINE (10/22/2020 10:45 AM SPEECH AND LANGUAGE TUTOR) CULTURE RESULTS ACINETOBACTER CALCOACETICUS-ACI NETOBACTER BAUMANNII COMPLEX 10/24/2020 7:06 PM SPEECH AND LANGUAGE TUTOR [facility] CULTURE RESULTS ALSO MIXED GROWTH OF DISTAL URETHRA CONTAMINANTS. 10/24/2020 7:06 PM SPEECH AND LANGUAGE TUTOR [facility] Urine Non-Phlebotomy Collection / Unknown 10/22/2020 10:45 AM SPEECH AND LANGUAGE TUTOR 10/22/2020 11:46 AM SPEECH AND LANGUAGE TUTOR Narrative Organism Antibiotic Method Susceptibility Acinetobacter baumannii complex Ampicillin/sulbactam [facility] IIB <=2 mcg/ml: Susceptible Acinetobacter baumannii complex Cefepime [facility] IIB 2 mcg/ml: Susceptible Acinetobacter baumannii [...] MICROBIOLOGY - GENERAL ORDERABLE S Final Result [facility] [address] [place] [id number], * (ABNORMAL) URINALYSIS REFLEX IF INDICATED BY ABNORMAL RESULTS (10/22/2020 10:45 AM SPEECH AND LANGUAGE TUTOR) SPECIFIC GRAVITY 1.010 1.003 - 1.030 10/22/2020 1:18 PM SPEECH AND LANGUAGE TUTOR [facility] URINE PH 7.0 5.0 - 9.0 10/22/2020 1:18 PM SPEECH AND LANGUAGE TUTOR [facility] WBC ESTERASE 500 /uL(A) Negative 10/22/2020 1:18 PM SPEECH AND LANGUAGE TUTOR [facility] NITRITE Negative Negative 10/22/2020 1:18 PM SPEECH AND LANGUAGE TUTOR [facility] PROTEIN, RANDOM URINE 30 mg/dL(A) Negative 10/22/2020 1:18 PM SPEECH AND LANGUAGE TUTOR [facility] URINE GLUCOSE, QUAL Negative Negative 10/22/2020 1:18 PM SPEECH AND LANGUAGE TUTOR [facility] URINE KETONES Negative Negative 10/22/2020 1:18 PM SPEECH AND LANGUAGE TUTOR [facility] UROBILINOGEN Normal Normal mg/dL 10/22/2020 1:18 PM SPEECH AND LANGUAGE TUTOR [facility] URINE BILIRUBIN Negative Negative 1:18 PM SPEECH AND LANGUAGE TUTOR [facility] URINE BLOOD 150 /uL(A) Negative josefa/ul 10/22/2020 1:18 PM SPEECH AND LANGUAGE TUTOR [facility] URINALYSIS COLOR Yellow 10/22/2020 1:18 PM SPEECH AND LANGUAGE TUTOR [facility] URINALYSIS CLARITY Slightly Cloudy 10/22/2020 1:18 PM SPEECH AND LANGUAGE TUTOR [facility] WBC (Urine) 6-10(A) Negative, 0-5 /hpf 10/22/2020 1:18 PM SPEECH AND LANGUAGE TUTOR [facility] URINE RBC'S 3-5(A) Negative, 0-2 /hpf 10/22/2020 1:18 PM SPEECH AND LANGUAGE TUTOR [facility] EPITHELIAL CELLS Occasional /lpf 10/22/2020 1:18 PM SPEECH AND LANGUAGE TUTOR [facility] BACTERIA, URINE Many(A) Negative /hpf 10/22/2020 1:18 PM SPEECH AND LANGUAGE TUTOR [facility] CRYSTALS Triple phosphate 10/22/2020 1:18 PM SPEECH AND LANGUAGE TUTOR [facility] Urine Non-Phlebotomy Collection / Unknown 10/22/2020 10:45 AM SPEECH AND LANGUAGE TUTOR 10/22/2020 11:46 AM SPEECH AND LANGUAGE TUTOR us Victoriano Reid MD URINE ORDERABLES Final Result [facility] #1 [place] [address] documented in this encounter Visit Diagnoses Diagnosis Neuromuscular dysfunction of bladder, unspecified Personal history of urinary (tract) infections documented in this encounter Additional Health Concerns Infection Onset Date Last Indicated Resolved Time 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. [address] [place] [address] PCP - General Family Medicine 07/01/24 Malissa Joe, RN [place] Nurse Internal Control Manager 12/03/23 12/03/23 Malissa Joe RN [place] Nurse Internal Control Manager 12/05/23 12/05/23 [place], [facility] Registered Public Surveyor Internal Control Manager 11/03/24 Cabrera Yadav MD #2 [address]CMILLAN, [facility] [address] [place] [address] Consulting Physician Urology 11/07/24 documented as of this encounter
--- OUTSIDE RECORDS SUMMARY | 2025-01-26 18:00 | XMS_ITS | Encounter Summary ---
Author Organization [facility] Address [address] [facility] [place] [address] Phone Care Team Providers Care Customer Solutions Specialist Name Role Phone Victoriano Reid MD Primary Care Provider [phone] Malissa Joe RN Unavailable Unavailable Malissa Joe RN Unavailable Unavailable Elva Olivares DO Primary Care Provider [phone] [place] SENIOR STAFF ACCOUNTANT Unavailable UnaCabrera Nevarez MD Unavailable [phone] Reason for Visit * Reason Onset Date Comments Results 10/25/2020 Encounter Details Date Type Department Care Team (Late st Contact Info) Description 10/25/2020 Telephone [facility] [address] [place] [address] Victoriano Reid MD #1 [place] [address] Results Social History Tobacco Use Types Packs/Day [...] RN - 10/25/2020 5:46 PM CST lmom RMATICS MANAGER * Telephone Encounter - Victoriano Reid MD - 10/25/2020 4:56 PM CST The urine is not showing quite enough to be infection but I will treat her as I know that her urinewas very foul smelling and has a lot of sediment and this is from the bacteria. I will send in an antibiotic. RMATICS MANAGER * Telephone Encounter - Jelena Cotto RN - 10/25/2020 4:04 PM CST Patient's daughter calling for results from UA and Urine culture from 10/22/20. RMATICS MANAGER documented in this encounter Plan of Treatment Upcoming Encounters Date Type Department Care Team (Latest Contact Info) Description 01/28/2025 10:30 AM CDT Clinical Support [facility]IAN GROUP UROLOGY #2 [place] [address] Nurse, [place] [facility] 02/02/2025 11:00 AM CDT Appointment [facility] CT 1 [place] [address] Cabrera Yadav MD #[address] [address] Discharge Disposition: Discharged to home or Selfcare 02/10/2025 3:00 PM CDT [facility] 1 [place] [address] Elva Olivares, DO 2 [facility] [address] [place] [address] Discharge Disposition: Discharged to home or Selfcare 02/10/2025 4:00 PM CDT [facility] Ul[facility] 1 [facility] [place] [address] Elva Olivares, DO 2 [facility] [address] [place] [address] Discharge Disposition: Discharged to home or Selfcare 02/17/2025 1:40 PM CDT Hospital [facility] Per[facility] 1 [facility] [place] [address] Cabrera Yadav MD #[address] [address] 02/17/2025 1:40 PM CDT - 02/17/2025 3:10 PM CDT Surgery [facility] Periop 1 [facility] [place] [address] Cabrera Yadav MD #[address] [address] CYSTOSCOPY AND LITHOLAPAXY, PATIENT WILL NEED A PAUL LIFT 03/02/2025 8:40 AM CDT Office Visit [facility] - Family Medicine [facility] #[address] [place] [address] Elva Olivares, DO 2 [facility] [address] [place] [address] Scheduled Procedures Name Priority Associated Diagnoses Date/Ti me CYSTOSCOPY BLADDER STONE BLADDER STONES 02/17/2025 1:40 PM CDT documented as of this encounter Visit Diagnoses Not on filedocumented in this encounter Additional Health Concerns Infection Onset Date Last Indicated Resolved Time 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 06/05/2019 04/15/2021 7:28 AM CDT Assessment Noted Time PHQ-9 Depression Total Score: 0 10/24/19 11:16 AM INFORMATICS MANAGER documented as of this encounter Care Teams Customer Solutions Specialist Relationship Specialty Start Date End Date Victoriano Reid MD PCP - General Family Medicine 06/19/19 06/29/24 Elva Olivares DO 2 [facility] [address] [place] [address] PCP - General Family Medicine 07/01/24 Malissa Joe RN [place] Nurse Billing And Insurance Coordinator 12/03/23 12/03/23 Malissa Joe RN [place] Nurse Billing And Insurance Coordinator 12/05/23 12/05/23 [place], SENIOR STAFF ACCOUNTANT [place] Laundry Housekeeping Aide Billing And Insurance Coordinator 11/03/24 Cabrear Yadav MD #2 [address] [facility] [address] [place] [address] Consulting Physician Urology 11/07/24 documented as of this encounter
[2025-01-26 18:16] LABS: Add Urine Microscopic? YES; Appearance Urine Clear (Clear); Bacteria Urine 4+ /hpf; Bilirubin Urine Negative (Negative); Blood Urine 1+ (Negative); Color Urine Yellow (Yellow); Glucose Urine UA Negative (Negative); Ketones Urine Negative (Negative); Leukocyte Esterase Ur 1+ LEU/UL (Negative); Nitrate Urine Positive (Negative); Non Pathogenic Casts 0-2; Protein Urine Negative (Negative); Specific Grav Ur 1.005 (1.001-1.035); Squamous Epithelial Cell Urine None Seen /hpf (Few); Urobilinogen Urine 0.2 mg/dL (<2.0)
[2025-01-26 18:30] VITALS: BP 135/71; PULSE 88; RESP 18; O2SAT 97
[2025-01-26 18:42] VITALS: BP 135/70; PULSE 70; RESP 18; O2SAT 98
== END 2025-01-26 20:15 | disposition home or self-care (01) ==
PROVIDERS: Emergency Provider Physician Assistant; PCP Student in an Organized Health Care Education/Training Program
DX: T83.090A Other mechanical complication of cystostomy catheter, initial encounter (principal); N39.0 Urinary tract infection, site not specified; I10 Essential (primary) hypertension; E11.9 Type 2 diabetes mellitus without complications; G82.20 Paraplegia, unspecified; Z87.01 Personal history of pneumonia (recurrent); Z87.891 Personal history of nicotine dependence; Y84.6 Urinary catheterization as the cause of abnormal reaction of the patient, or of later complication, without mention of misadventure at the time of the procedure
CPT/HCPCS: 51705; 81001; 87086; 87186; 99283

== ENCOUNTER 2025-02-24 17:31 | Emergency (ER) | payer MEDICARE, MEDICAID, SELFPAY ==
[2025-02-24 17:31] VITALS: BP 142/65; PULSE 61; RESP 14; TEMP 36.6; O2SAT 100
[2025-02-24 17:35] VITALS: BP 142/65; PULSE 66; RESP 12; O2SAT 98
[2025-02-24] MEDS: NACL 0.9% IRRIGATION POUR BOTTLE 500 ML (18:16)
--- NOTE | 2025-02-24 18:26 | ED.GENADULT ---
HPI - General Adult General Chief complaint: Urogenital-Female Stated complaint: unable to urinate Time Seen by Provider: 02/24/25 17:55 History of Present Illness HPI narrative: Patient is a 69-year-old female who presents emergency department with chief complaint of blocked urinary catheter. The patient states that she was recently treated for UTI reports that her catheter stopped draining. The patient reports he schedule diver catheter changed tomorrow Related Data Allergies Allergy/AdvReac Type Severity Reaction Status Date / Time codeine Allergy Unknown rash Verified 02/24/25 17:37 Review of Systems Review of Systems: A 10 system review of systems was completed on the patient and is negative except for what is stated in the HPI. Nursing and ancillary documentation was reviewed. [facility] Past Medical History Medical History Suprapubic catheter Reis catheter in place Pneumonia HTN (hypertension) Diabetes mellitus Surgical History Surgical History History of back surgery Hx of appendectomy Social History Social History Smoking status: Former smoker Exam Narrative: GENERAL: Well-appearing, well-nourished, and in no acute distress. HEAD: Normocephalic, atraumatic. EYES: PERRLA and EOMI. ENT: Nares clear, no rhinorrhea or epistaxis. Mucous membranes moist. NECK: Supple. CHEST: Clear to auscultation. No respiratory distress. HEART: Regular rate and rhythm. No murmur heard. Normal peripheral pulses. ABDOMEN: Soft, nontender, nondistended, normal active bowel sounds. Suprapubic catheter in place EXTREMITIES: Normal range of motion. No edema. SKIN: Warm, dry, no rash. NEURO: No focal deficits. Alert and oriented x3. PSYCH: Normal mood and affect. Course Vital Signs Vital signs: Vital Signs Temperature 36.6 C 02/24/25 17:31 Pulse Rate 61 02/24/25 17:31 Respiratory Rate 14 02/24/25 17:31 Blood Pressure 142/65 H 02/24/25 17:31 Pulse Oximetry 100 02/24/25 17:31 Oxygen Delivery Room Air 02/24/25 17:31 Temperature 36.6 C 02/24/25 17:31 Pulse Rate 66 02/24/25 17:35 Respiratory Rate 12 02/24/25 17:35 Blood Pressure 142/65 H 02/24/25 17:35 Pulse Oximetry 98 02/24/25 17:35 Oxygen Delivery Room Air 02/24/25 17:31 Procedures Catheter Insertion (Urinary) Urinary Catheter 1: Date of insertion: 02/24/25 Time of insertion: 18:27 Reason for placing: Yes Reason for placing indwelling catheter: Other (Replacement of chronic suprapubic catheter) Bladder scan/ultrasound used before catheterization: Yes Estimated amount of urine (mLs): 550 Antiseptic solution prep: Povidone-Iodine Topical anesthesia used: No Catheter type/location: Suprapubic Size (Tamazight): 16 Catheter balloon size (mL): 10 Catheter balloon amount: 10 Results: successfully catheterized-immediate flow Procedure performed: without complications Medical Decision Making MDM Narrative Medical decision making narrative: Differential diagnosis includes urethral obstruction, UTI Reis catheter was changed out and patient is feeling much better this time urinalysis showed 11-20 white blood cells in the urine and 2+ leukocyte esterase and 4+ bacteria. Patient was also nitrate positive. Patient will be started on Keflex as her previous culture was pansensitive. Vital Signs Vital Signs: Vital Signs Temperature 36.6 C 02/24/25 17:31 Pulse Rate 61 02/24/25 17:31 Respiratory Rate 14 02/24/25 17:31 Blood Pressure 142/65 H 02/24/25 17:31 Pulse Oximetry 100 02/24/25 17:31 Oxygen Delivery Room Air 02/24/25 17:31 Temperature 36.6 C 02/24/25 17:31 Pulse Rate 66 02/24/25 17:35 Respiratory Rate 12 02/24/25 17:35 Blood Pressure 142/65 H 02/24/25 17:35 Pulse Oximetry 98 02/24/25 17:35 Oxygen Delivery Room Air 02/24/25 17:31 Lab Data Labs: Lab Results 02/24/25 Range/Units 18:40 Urine Color Yellow (Yellow) Urine Appearance Clear (Clear) Urine pH 7.5 (5.0-9.0) Ur Specific [place] 1.006 (1.001-1.035) Urine Protein Negative (Negative) mg/dL Urine Glucose (UA) Negative (Negative) mg/dL Urine Ketones Negative (Negative) mg/dL Ur Blood (Man) 2+ H (Negative) Urine Nitrate Positive H (Negative) Urine Bilirubin Negative (Negative) Urine Urobilinogen 0.2 (<2.0) mg/dL Leukocyte Esterase Rfl 2+ H (Negative) EVETTE/UL Urine RBC 21-50 H (0-2) /hpf Urine WBC 11-20 H (0-3) /hpf Ur Squamous Epith Cells None seen (Few) /hpf Urine Bacteria 4+ H /hpf Urine Casts 0-2 Discharge Plan Discharge Clinical Impression: Urinary tract infection, Malfunction of Reis catheter Patient Disposition: Home Condition: Stable Instructions: Antibiotic Form, Urinary Tract Infection in Women (ED), Reis Catheter Placement and Care (ED), How to Care for Your Suprapubic Catheter (DC) Patient Language: Ukrainian Prescriptions: New cephalexin 500 mg capsule 500 mg PO Q12H 7 Days Qty: 14 0RF No Action sulfamethoxazole-trimethoprim [Bactrim DS] 800-160 mg tablet 1 tablet PO Q12H Qty: 14 0RF cephalexin 500 mg capsule 500 mg PO Q8H 7 Days Qty: 21 0RF Follow-up/Referrals: Elise,Elva Cha DO [Primary Care Provider] - Time of Disposition: 20:07
--- NOTE | 2025-02-24 18:43 | PC.NURSE ---
bladder scan of the pt showed 567 ml of urine. EDP aware and advised to try irrigation. this RN tried without success, EDP aware. EDP placed new suprapubic armijo
--- OUTSIDE RECORDS SUMMARY | 2025-02-24 19:01 | XMS_ITS | Encounter Summary ---
Author Organization [facility] Address [address] [place] [address] Phone Care Team Providers Care Pastoral Assistant Name Role Phone Victoriano Reid MD Primary Care Provider [phone] Malissa Joe RN Unavailable Unavailable Malissa Joe RN Unavailable Unavailable Elva Olivares DO Primary Care Provider [phone] [place] APPLICATIONS SUPPORT ANALYST Unavailable Unaabdirizaki Cabrera Dodge MD Unavailable [phone] Encounter Details Date Type Department Care Team (Late st Contact Info) Description 04/25/2021 Lab Requisition [facility] Laboratory Services 1 [place] [phone] Victoriano Reid MD #1 [place] [address] Neuromuscular dysfunction of bladder, unspecified Social History [...] Care Team (Late st Contact Info) Description 02/25/2025 11:00 AM CDT Clinical Support [facility] PHYSICIAN [facility] UROLOGY #2 [place] [address] Nurse [place] [facility] 03/02/2025 8:40 AM CDT Office Visit [facility] #[address] [place] [address] Elva Olivares, DO 2 [facility] [address] [place] [address] 03/03/2025 1:30 PM CDT [facility] 1 [facility] [place] [address] Cabrera Yadav MD #[address] [address] Discharge Disposition: Discharged to home or Selfcare 03/24/2025 11:00 AM CDT [facility] 1 [place] [address] Elva Olivares, DO 2 [facility] [address] [place] [address] Discharge Disposition: Discharged to home or Selfcare 03/24/2025 12:15 PM CDT [facility] 1 [place] [address] Elva Olivares, DO 2 [facility] [address] [place] [address] (work) documented as of this encounter Procedures Procedure Name Priority Date/Time Associated Diagnosis Comments URINALYSIS REFLEX IF INDICATED BY ABNORMAL RESULTS Routine 04/25/2021 4:00 PM CDT Neuromuscular dysfunction of bladder, unspecified CULTURE, URINE Routine 04/25/2021 4:00 PM CDT Neuromuscular dysfunction of bladder, unspecified documented in this encounter Results * CULTURE, URINE (04/25/2021 4:00 PM CDT) [facility] CULTURE RESULTS STAPHYLOCOCCU S, COAGULASE NEGATIVE 05/01/2021 7:37 AM CDT [facility]rine Non-Phlebotomy Collection / Unknown 04/25/2021 4:00 PM CDT 04/25/2021 5:20 PM CDT Narrative Organism Antibiotic Method Susceptibility Staphylococcus Coagulase Negative Gentamicin MCCLURE SINGH 22 mm: Susceptible Staphylococcus Coagulase Negative Nitrofurantoin MCCLURE SINGH 23 mm: Susceptible Staphylococcus Coagulase Negative Oxacillin MCCLURE SINGH Resistant Comment:VERIFIED BY MCCLURE SINGH Staphylococcus Coagulase Negative Tetracycline MCCLURE SINGH 29 mm: Susceptible Staphylococcus Coagulase Negative Trimeth/Sulfamethoxazole MCCLURE SINGH 22 mm: Susceptible Staphylococcus Coagulase Negative Vancomycin ETEST 0.25 mcg/ml: Susceptible us Victoriano Reid MD MICROBIOLOGY - GENERAL ORDERABLE S Final Result [facility] [address] [place] [address], * (ABNORMAL) URINALYSIS REFLEX IF INDICATED BY ABNORMAL RESULTS (04/25/2021 4:00 PM CDT) [facility] SPECIFIC GRAVITY 1.010 1.003 - 1.030 04/25/2021 5:43 PM CDT [facility] PH 8.0 5.0 - 9.0 04/25/2021 5:43 PM CDT [facility] WBC ESTERASE 500 /uL(A) Negative 04/25/2021 5:43 PM CDT [facility] NITRITE Positive(A) Negative 04/25/2021 5:43 PM CDT [facility] PROTEIN, RANDOM URINE 100 mg/dL(A) Negative 04/25/2021 5:43 PM CDT [facility] URINE GLUCOSE, QUAL Negative Negative 04/25/2021 5:43 PM CDT [facility] URINE KETONES Negative Negative 04/25/2021 5:43 PM CDT [facility] UROBILINOGEN Normal Normal mg/dL 04/25/2021 5:43 PM CDT [facility] URINE BILIRUBIN Negative Negative 5:43 PM CDT [facility] URINE BLOOD 250 /uL(A) Negative josefa/ul 04/25/2021 5:43 PM CDT [facility] URINALYSIS COLOR Dark Yellow 04/25/2021 5:43 PM CDT [facility] URINALYSIS CLARITY Very Cloudy 04/25/2021 5:43 PM CDT [facility] WBC (Urine) 6-10(A) Negative, 0-5 /hpf 04/25/2021 5:43 PM CDT [facility] URINE RBC'S 21-50(A) Negative, 0-2 /hpf 04/25/2021 5:43 PM CDT [facility] EPITHELIAL CELLS Occasional /lpf 04/25/2021 5:43 PM CDT [facility] BACTERIA, URINE Many(A) Negative /hpf 04/25/2021 5:43 PM CDT [facility] Urine Non-Phlebotomy Collection / Unknown 04/25/2021 4:00 PM CDT 04/25/2021 5:20 PM CDT us Victoriano Reid MD URINE ORDERABLES Final Result [facility] #1 [place] [address] documented in this encounter Visit Diagnoses Diagnosis Neuromuscular dysfunction of bladder, unspecified documented in this encounter Additional Health Concerns Assessment Noted Time PHQ-9 Depression Total Score: 0 10/24/19 20 11:16 AM KENNEL ATTENDANT documented as of this encounter Care Teams Pastoral Assistant Relationship Specialty Start Date End Date Victoriano Reid MD PCP - General Family Medicine 06/19/19 06/29/24 Elva Olivares DO 2 [facility] [address] [place] [address] PCP - General Family Medicine 07/01/24 Malissa Joe, RN [place] Nurse Levers Lace Machine Operator 12/03/23 12/03/23 Malissa Joe, RN [place] Nurse Levers Lace Machine Operator 12/05/23 12/05/23 [place], [facility] [place] Flight Director Levers Lace Machine Operator 11/03/24 Cabrera Yadav MD #2 [facility] [address] [place] [address] Consulting Physician Urology 11/07/24 documented as of this encounter
--- OUTSIDE RECORDS SUMMARY | 2025-02-24 19:01 | XMS_ITS | Encounter Summary ---
Author Organization [facility] Address [address] [place] [address] Phone Care Team Providers Care Packaging Design Engineer Name Role Phone Victoriano Reid MD Primary Care Provider [phone] Elva Olivares DO Primary Care Provider [phone] [place] MANAGER AVIATION Unavailable Unavai Cabrera Dodge MD Unavailable [phone] Encounter Details Date Type Department Care Team (Late st Contact Info) Description 03/19/2024 Lab Requisition [facility] Laboratory Services 1 [place] [phone] Victoriano Reid MD #1 [place] [address] Personal history of urinary (tract) infections; Encounter for fitting and adjustment of urinary device Social History Tobacco Use Types Packs/Day Years Used Date Smoking Tobacco: Every Day Cigarettes Smokeless Tobacco: Never Alcohol Use Standard Drinks/Week Comments Not Currently 0 (1 standard drink = 0.6 oz pur e alcohol) [facility] Utilities Answer Date Recorded In the past 12 months has [employer], gas, oil, or water company threatened [...] often do you attend chur ch or spiritism services? Never 12/20/2023 Do you belong to [...] Total Score - Questions 1-9 0 12/14 [facility] - Occupational [...] Description 02/25/2025 11:00 AM CDT Clinical Support [facility] UR[facility] #2 [place] [address] Nurse, [facility] 03/02/2025 8:40 AM CDT [facility] - [place] [address] [place] [address] Elva Olivares, DO 2 [facility] [address]. [address] [place] [address] 03/03/2025 1:30 PM CDT [facility] 1 [facility] [place] [address] Cabrera Yadav MD #2 [address] [address] Discharge Disposition: Discharged to home or Selfcare 03/24/2025 11:00 AM CDT [facility]ment [facility] Ul[facility]ound 1 [place] [address] Elva Olivares, DO 2 [facility] [address] [place] [address] Discharge Disposition: Discharged to home or Selfcare 03/24/2025 12:15 PM CDT [facility]ment [facility] Mamm[facility] 1 [facility] [place] [address] Elva Olivares, DO 2 [facility] [facility] [address] [place] [address] documented as of this encounter Procedures Procedure [...] RESULTS KLEBSIELLA OXYTOCA 03/21/2024 3:42 PM CDT [facility] RES[facility] ESCHERICHIA COLI 03/21/2024 3:42 PM CDT [facility] Culture Non-Phlebotomy Collection / Unknown 03/19/2024 2:45 PM CDT 03/19/2024 3:38 PM CDT Narrative Organism Antibiotic Method Susceptibility Klebsiella oxytoca Ampicillin/sulbactam [facility] VITEK II 4 mcg/ml: Susceptible Klebsiella oxytoca [...] II <=1 mcg/ml: Susceptible Escherichia coli Levofloxacin [facility] VITEK II <=0.12 mcg/ml: Susceptible Escherichia coli Meropenem [facility] VITEK II <=0.25 mcg/ml: Susceptible Escherichia coli Piperacillin/Tazobactam [facility] VITEK II <=4 mcg/ml: Susceptible Escherichia coli Tobramycin [facility] VITEK II <=1 mcg/ml: Susceptible Escherichia coli Trimeth/Sulfamethoxazole [facility] VITEK I I <=20 mcg/ml: Susceptible us Victoriano Reid MD MICROBIOLOGY - GENERAL ORDERABLE S Final Result [facility] [address] [place] [address], * (ABNORMAL) URINALYSIS REFLEX IF INDICATED BY ABNORMAL RESULTS (03/19/2024 2:45 PM CDT) SPECIFIC GRAVITY 1.010 1.003 - 1.030 03/19/2024 4:01 PM CDT [facility] URINE PH 7.0 5.0 - 9.0 03/19/2024 4:01 PM CDT [facility] WBC ESTERASE 500 /uL(A) Negative 03/19/2024 4:01 PM CDT [facility] NITRITE Positive(A) Negative 03/19/2024 4:01 PM CDT [facility] PROTEIN, RANDOM URINE 15 mg/dL(A) Negative 03/19/2024 4:01 PM CDT [facility] URINE GLUCOSE, QUAL Negative Negative 03/19/2024 4:01 PM CDT [facility] URINE KETONES Negative Negative 03/19/2024 4:01 PM CDT [facility] UROBILINOGEN Normal Normal mg/dL 03/19/2024 4:01 PM CDT [facility] URINE BLOOD 150 /uL(A) Negative josefa/ul 03/19/2024 4:01 PM CDT [facility] URINALYSIS COLOR Yellow 03/19/2024 4:01 PM CDT [facility] URINALYSIS CLARITY Slightly Cloudy 03/19/2024 4:01 PM CDT [facility] WBC (Urine) 21-50(A) Negative, 0-5 /hpf 03/19/2024 4:01 PM CDT [facility] URINE RBC'S 21-50(A) Negative, 0-2 /hpf 03/19/2024 4:01 PM CDT [facility] EPITHELIAL CELLS Occasional /lpf 03/19/2024 4:01 PM CDT [facility] BACTERIA, URINE Many(A) Negative /hpf 03/19/2024 4:01 PM CDT [facility] Urine Non-Phlebotomy Collection / Unknown 03/19/2024 2:45 PM CDT 03/19/2024 3:38 PM CDT us Victoriano Reid MD URINE ORDERABLES Final Result [facility] #1 [place] [address] documented in this encounter Visit Diagnoses Diagnosis Personal history of urinary (tract) infections Encounter for fitting and adjustment of urinary device documented in this encounter Additional Health Concerns Assessment Noted Time PHQ-9 Depression Total Score: 0 08/15/20 21 10:00 AM CDT documented as of this encounter Care Teams Packaging Design Engineer Relationship Specialty Start Date End Date Victoriano Reid MD PCP - General Family Medicine 06/19/19 06/29/24 Elva Olivares DO 2 [facility] [address] [facility]. [address] [place] [address] PCP - General Family Medicine 07/01/24 [place], [facility] Advertising Assistant Biological Aide 11/03/24 Cabrera Yadav MD #2 [address] [facility] [address] [place] [address] Consulting Physician Urology 11/07/24 documented as of this encounter
--- OUTSIDE RECORDS SUMMARY | 2025-02-24 19:01 | XMS_ITS | Encounter Summary ---
Author Organization [facility] Address [address] [facility] [place] [place] [address] Phone Care Team Providers Care Computer Aide Name Role Phone Victoriano Reid MD Primary Care Provider [phone] Elva Olivares DO Primary Care Provider [phone] [place] DRUG ABUSE COUNSELOR Unavailable Unavai Cabrera Dodge MD Unavailable [phone] Encounter Details Date Type Department Care Team (Late st Contact Info) Description 05/27/2024 Lab Requisition [facility] Laboratory Services 1 [place] [address] Singh Myrick, KARISSA, SUPERVISOR SHIP MAINTENANCE SERVICES #2 [place] [address] Type 2 diabetes mellitus without complications (HCC); Other extermination supervisor (current) drug therapy Social History Tobacco Use Types Packs/Day Years Used Date Smoking Tobacco: Every Day Cigarettes 2 15 Smokeless Tobacco: Never Alcohol Use Standard Drinks/Week Comments Not Currently 0 (1 standard drink = 0.6 oz pur e alcohol) [facility] Utilities Answer Date Recorded In [...] often do you attend chur ch or mormon services? Never 04/15/2024 Do you belong to any clubs o r organizations such as catholic groups, unions, fraternal or athletic groups, or [...] Total Score - Questions 1-9 0 12/14 [facility] - Occupational Stress Questionnaire Answer Date [...] any time in the past 12 m [facility], were you homeless or living in [...] Description 02/25/2025 11:00 AM CDT Clinical Support [facility] #[address] [place] [address] NurseGarth Urology 03/02/2025 8:40 AM CDT [facility] - [place] #[address] [place] [address] Elva Olivares, DO 2 [address] [address]. [address] [place] [address] 03/03/2025 1:30 PM CDT [facility] 1 [facility] [place] [address] Cabrera Yadav MD #2 [facility], MARY [address] [place] [address] Discharge Disposition: Discharged to home or Selfcare 03/24/2025 11:00 AM CDT [facility] Ul[facility]ound 1 [place] [address] Elva Olivares, DO 2 [facility] MARY. [address] [place] [address] Discharge Disposition: Discharged to home or Selfcare 03/24/2025 12:15 PM CDT [facility] M[facility] 1 [place] [address] Elva Olivares, DO 2 [facility]. [address] [place] [address] documented as of this encounter Procedures Procedure Name Priority Date/Time Associated Diagnosis Comments CBC WITH AUTO DIFFERENTIAL Routine 05/27/2024 1:00 PM CDT Type 2 diabetes mellitus without complications (HCC) Other skilled nursing (current) drug therapy UR MICROALBUMIN/CREATIN INE RATIO RANDOM Routine 05/27/2024 1:00 PM CDT Type 2 diabetes mellitus without complications (HCC) Other skilled nursing (current) drug therapy LIPID PANEL Routine 05/27/2024 1:00 PM CDT Type 2 diabetes mellitus without complications (HCC) Other extermination supervisor (current) drug therapy CMP (COMPREHENSIVE METABOLIC PANEL) Routine 05/27/2024 1:00 PM CDT Type 2 diabetes mellitus without complications (HCC) Other skilled nursing (current) drug therapy COMPLETE BLOOD COUNT (CBC) WITH DIFF Routine 05/27/2024 1:00 PM CDT Type 2 diabetes mellitus without complications (HCC) Other extermination supervisor (current) drug therapy documented in this encounter Results * (ABNORMAL) CBC WITH AUTO DIFFERENTIAL (05/27/2024 1:00 PM CDT) [facility] WBC 9.90 4.00 - 12.00 10(3)/mcL 05/27/2024 2:52 PM CDT [facility] RBC 4.48 3.80 - 5.30 10(6)/mcL 05/27/2024 2:52 PM CDT [facility] HEMOGLOBIN (HGB) 14.8 12.0 - 15.8 g/dL 05/27/2024 2:52 PM CDT [facility] HEMATOCRIT (HCT) 45.0 36.0 - 47.0 % 05/27/2024 2:52 PM CDT [facility] MCV 100.4(H) 82.0 - 96.0 fL 05/27/2024 2:52 PM CDT [facility] MCH 33.0 26.0 - 34.0 pg 05/27/2024 2:52 PM CDT [facility] MCHC 32.9 31.0 - 36.0 g/dL 05/27/2024 2:52 PM CDT [facility] PLATELET COUNT 160 140 - 440 10(3)/mcL 05/27/2024 2:52 PM CDT [facility] RDW 14.9 11.8 - 15.5 % 05/27/2024 2:52 PM CDT [facility] MPV 12.0 9.7 - 12.4 fL 05/27/2024 2:52 PM CDT [facility] NEUTROPHILS 54.2 47.0 - 73.0 % 05/27/2024 2:52 PM CDT [facility] LYMPHOCYTES 35.4 18.0 - 42.0 % 05/27/2024 2:52 PM CDT [facility] MONOCYTES 7.1 4.0 - 12.0 % 05/27/2024 2:52 PM CDT [facility] EOSINOPHILS 2.5 0.0 - 5.0 % 05/27/2024 2:52 PM CDT [facility] BASOPHILS 0.8 0.0 - 1.0 % 05/27/2024 2:52 PM CDT [facility] ABSOLUTE NEUTROPHILS 5.37 1.60 - 7.70 10(3)/mcL 05/27/2024 2:52 PM CDT [facility] ABSOLUTE LYMPHOCYTES 3.50(H) 1.30 - 3.20 10(3)/[facility] 05/27/2024 2:52 PM CDT [facility] ABSOLUTE MONOCYTES 0.70 0.20 - 1.00 10(3)/[facility] 05/27/2024 2:52 PM CDT [facility] ABSOLUTE EOSINOPHIL 0.25 0.00 - 0.40 10(3)/[facility] 05/27/2024 2:52 PM CDT [facility] ABSOLUTE BASOPHILS 0.08 0.00 - 0.10 10(3)/[facility] 05/27/2024 2:52 PM CDT [facility] NRBC PER 100 WBC 0 05/27/20 24 2:52 PM CDT [facility] Blood No Phlebotomy Charged / Unknown 05/27/2024 1:00 PM CDT 05/27/2024 2:30 PM CDT us Singh Myrick APRN, SUPERVISOR SHIP MAINTENANCE SERVICES HEMATOLOGY ORDER SERVANDO Final Result [facility] #1 [place] [address] * (ABNORMAL) UR MICROALBUMIN/CREATININE RATIO RANDOM (05/27/2024 1:00 PM CDT) RAN UR MICROALBUMIN 0.89 mg/dL 05/27/2024 3:00 PM CDT [facility] Comment:No reference range h as been established. Consider Clinical Correlation. CREATININE URINE 7.4 mg/dL 05/27/20 3:00 PM CDT [facility] Comment:No reference range h as been established. Consider Clinical Correlation. ALB/CREAT RATIO 120(H) 0 - 30 mg/g CRE 05/27/2024 3:00 PM CDT [facility] Urine Non-Phlebotomy Collection / Unknown 05/27/2024 1:00 PM CDT 05/27/2024 2:30 PM CDT Singh Myrick APRN, CNP URINE ORDERABLES Final Result [facility] #1 [place] [address] * LIPID PANEL (05/27/2024 1:00 PM CDT) [facility] CHOLESTEROL 158 <200 mg/dL 05/27/2024 3:21 PM CDT [facility] TRIGLYCERIDES 95 <150 mg/dL 05/27/2024 3:21 PM CDT [facility] HDL CHOLESTEROL 42 >40 mg/dL 3:21 PM CDT [facility] LDL 97 <130 mg/dL 05/27/2024 3:21 PM CDT [facility] VLDL 19 10 - 50 mg/dL 05/27/2024 3:21 PM CDT [facility] CHOL/HDL RATIO 3.8 0.0 - 4.4 05/27/2024 3:21 PM CDT [facility] NON-HDL CHOLESTEROL 116 <130 mg/dL 05/27/2024 3:21 PM CDT [facility] Blood No Phlebotomy Charged / Unknown 05/27/2024 1:00 PM CDT 05/27/2024 2:30 PM CDT us Singh Myrick COUNSELING SERVICES DIRECTOR, SUPERVISOR SHIP MAINTENANCE SERVICES CHEMISTRY ORDERA BLES Final Result [facility] #1 [place] [address] * (ABNORMAL) CMP (COMPREHENSIVE METABOLIC PANEL) (05/27/2024 1:00 PM CDT) SODIUM 141 136 - 145 mmol/L 05/27/2024 3:21 PM CDT [facility] POTASSIUM 4.1 3.5 - 5.1 mmol/L 05/27/2024 3:21 PM CDT [facility] CHLORIDE 107 98 - 107 mmol/L 05/27/2024 3:21 PM CDT [facility] CO2, VENOUS 26 22 - 30 mmol/L 05/27/2024 3:21 PM CDT [facility] ANION GAP 12.1 <18.0 mmol/L 05/27/2024 3:21 PM CDT [facility] GLUCOSE 128(H) 70 - 99 mg/dL 05/27/2024 3:21 PM CDT [facility] BUN 16 10 - 20 mg/dL 05/27/2024 3:21 PM CDT [facility] CREATININE, BLOOD 0.72 0.60 - 1.00 mg/dL 05/27/2024 3:21 PM CDT [facility] BUN/CREATININE RATIO 22(H) 12 - 20 ratio 05/27/2024 3:21 PM CDT [facility] TOTAL PROTEIN 7.0 6.3 - 8.2 g/dL 05/27/2024 3:21 PM CDT [facility] ALBUMIN 4.0 3.5 - 5.0 g/dL 05/27/2024 3:21 PM CDT [facility] A/G RATIO 1.3 1.0 - 2.2 05/27/2024 3:21 PM CDT [facility] CALCIUM 9.7 8.7 - 10.5 mg/dL 05/27/2024 3:21 PM CDT [facility] T BILI 0.3 0.2 - 1.2 mg/dL 05/27/2024 3:21 PM CDT [facility] SGOT (AST) 15 5 - 34 U/L 05/27/2024 3:21 PM CDT [facility] SGPT (ALT) 9 0 - 55 U/L 05/27/2024 3:21 PM CDT [facility] ALKALINE PHOSPHATASE 66 40 - 150 U/L 05/27/2024 3:21 PM CDT [facility] GFR, ESTIMATED >60 >=60 05/27/2024 3:21 PM CDT [facility] Comment: Creatinine Clearance is the preferred criteria for selecting drug dose adjustments in renally impaired patients. The GFR is provided as additional pertinent clinical information. GFR is reported in mL/min/1.73 sq m. Calculation based on the Chronic Kidney Disease Epidemiology Collaboration (CKD- EPI) equation refit without adjustment for race. GFR, EST. >60 >=60 024 3:21 PM CDT [facility] GFR, EST. NONAFRICAN >60 >=60 05/27/2024 3:21 PM CDT [facility] Blood No Phlebotomy Charged / Unknown 05/27/2024 1:00 PM CDT 05/27/2024 2:30 PM CDT us Singh Mryick APRN, LORI CHEMISTRY ORDERA BLES Final Result [facility] #1 [place] [address] documented in this encounter Visit Diagnoses Diagnosis Type 2 diabetes mellitus without complications Type II or unspecified type diabetes mellitus without mention of complication, not stated as uncontrolled Other extermination supervisor (current) drug therapy documented in this encounter Additional Health Concerns Assessment Noted Time PHQ-9 Depression Total Score: 0 08/15/20 21 10:00 AM CDT documented as of this encounter Care Teams Computer Aide Relationship Specialty Start Date End Date Victoriano Reid MD PCP - General Family Medicine 06/19/19 06/29/24 Elva Olivares DO 2 [facility]. [address] [place] [address] PCP - General Family Medicine 07/01/24 H[place], [facility] Motion Picture Narrator Computer Graphic Artist 11/03/24 Cabrera Yadav MD #2 [facility] [address] [place] [address] Consulting Physician Urology 11/07/24 documented as of this encounter
--- OUTSIDE RECORDS SUMMARY | 2025-02-24 19:01 | XMS_ITS | Encounter Summary ---
Author Organization [facility] Address [address] [place] [address] Phone Care Team Providers Care Information Systems Audit Manager Name Role Phone Victoriano Reid MD Primary Care Provider Elva Olivares DO Primary Care Provider [phone] H[place] [facility] Unavailable Cabrera Smallwood MD Unavailable [phone] Reason for Visit * Reason Comments Medication Refill Encounter Details Date Type Department Care Team (Late Contact Info) Description 04/18/2024 Refill [facility] Group - Family Medicine [facility] #2 [place] [address] Victoriano Reid MD #1 [place] [address] Medication Refill Social History Tobacco Use Types Packs/Day Years Used Date Smoking Tobacco: Every Day Cigarettes 2 15 Smokeless Tobacco: Never Alcohol Use Standard Drinks/Week Comments Not Currently 0 (1 standard drink = 0.6 oz pur e alcohol) [facility] Utilities Answer Date Recorded In the past [...] often do you attend chur ch or anabaptism services? Never 04/15/2024 Do you belong to any clubs o r organizations such as baptism groups, unions, fraternal or athletic groups, or [...] place to sleep or slept in a fpc (including now)? No 12/20/2023 Housing Stability Vital Sign Answer Saleem e Recorded In the last 12 months, was t here a time when you were not able to pay the mortgage or rent on time? No 04/15/2024 Number of Times Moved in the Last Year Not on fi le 04/15/2024 At any time in the past [address] [facility], were you homeless or living in a fpc (including now)? No 04/15/2024 Education Answer Date [...] 02/25/2025 11:00 AM CDT Clinical Support [facility] [facility] [place] [address] NurseKen Urology 03/02/2025 8:40 AM CDT Office [facility] - [place] #[address] [place] [address] Elva Olivares, DO 2 [facility] [address] [address] 03/03/2025 1:30 PM CDT [facility] [place] [address] Cabrera Yadav MD #[address] [address] Discharge Disposition: Discharged to home or Selfcare 03/24/2025 11:00 AM CDT [facility] 1 [place] [address] Elva Olivares, DO [address] [address] Discharge Disposition: Discharged to home or Selfcare 03/24/2025 12:15 PM CDT [facility] 1 [place] [address] Elva Olivares, DO [address] [address] documented as of this encounter Visit Diagnoses Not on filedocumented in this encounter Additional Health Concerns Assessment Noted Time PHQ-9 Depression Total Score: 0 08/15/20 21 10:00 AM CDT documented as of this encounter Care Teams Information Systems Audit Manager Relationship Specialty Start Date End Date Victoriano Reid MD PCP - General Family Medicine 06/19/19 06/29/24 Elva Olivares DO 2 [facility] [facility] [facility]. [address] [place] [address] PCP - General Family Medicine 07/01/24 Hinton, [facility] Parking Officer Director Hydrogen Storage Engineering 11/03/24 Cabrera Yadav MD #2 [address] [facility] [address] [place] [address] Consulting Physician Urology 11/07/24 documented as of this encounter
--- OUTSIDE RECORDS SUMMARY | 2025-02-24 19:01 | XMS_ITS | Encounter Summary ---
Author Organization [facility] Address [address] [place] [address] Phone Care Team Providers Care On Site Wastewater Systems Technician Name Role Phone Victoriano Reid MD Primary Care Provider [phone] Malissa Joe RN Unavailable Unavailable Malissa Joe RN Unavailable Unavailable Elva Olivares DO Primary Care Provider [phone] [place] RASPBERRY CHECKER Unavailable Cabrera Smallwood MD Unavailable [phone] Reason for Visit * Reason Comments Medication Refill Encounter Details Date Type Department Care Team (Late st Contact Info) Description 09/06/2022 Refill [facility] Medical Group - Family Medicine [facility] #2 [place] [address] Victoriano Reid MD #1 [place] [address] Medication Refill Social History Tobacco Use Types [...] days and meeting all other requirements GER WORK documented in this encounter Plan of Treatment Upcoming Encounters Date Type Department Care Team (Late st Contact Info) Description 02/25/2025 11:00 AM CDT Clinical Support [facility] UROLOGY #[address] [place] [address] Nurse [place] [facility] 03/02/2025 8:40 AM CDT Office Visit [facility] - [place] #[address] [place] [address] Elva Olivares, DO 2 [facility] [address] [facility] [address] [place] [address] 03/03/2025 1:30 PM CD[facility] 1 [facility] [place] [address] Cabrera Yadav MD #[address] [address] Discharge Disposition: Discharged to home or Selfcare 03/24/2025 11:00 AM CDT [facility] 1 [facility] [place] [address] Elva Olivares, DO 2 [facility] [address] [place] [address] Discharge Disposition: Discharged to home or Selfcare 03/24/2025 12:15 PM CDT [facility] 1 [facility] [place] [address] Elva Olivares, DO 2 [facility] [address] [place] [address] documented as of this encounter Visit Diagnoses Diagnosis Muscle spasm Spasm of muscle Allergic rhinitis, unspecified seasonality, unspecified trigger documented in this encounter Additional Health Concerns Assessment Noted Time PHQ-9 Depression Total Score: 0 08/15/20 21 10:00 AM CDT documented as of this encounter Care Teams On Site Wastewater Systems Technician Relationship Specialty Start Date End Date Victoriano Reid MD PCP - General Family Medicine 06/19/19 06/29/24 Elva Olivares DO 2 [facility] [address] [place] [address] PCP - General Family Medicine 07/01/24 Malissa Joe, RN [place] Nurse Lining Maker 12/03/23 12/03/23 Malissa Joe, RN [place] Nurse Lining Maker 12/05/23 12/05/23 [place], RASPBERRY CHECKER [place] Paint Mixer Machine Lining Maker 11/03/24 Cabrera Yadav MD #2 [facility] [address] [place] [address] Consulting Physician Urology 11/07/24 documented as of this encounter
--- OUTSIDE RECORDS SUMMARY | 2025-02-24 19:01 | XMS_ITS | Encounter Summary ---
Author Organization [facility] Address [address] [place] [address] Phone Care Team Providers Care Senior It Assistant Name Role Phone Victoriano Reid MD Primary Care Provider [phone] Malissa Joe RN Unavailable Unavailable Malissa Joe RN Unavailable Unavailable Elva Olivares DO Primary Care Provider [phone] [place] CHIEF CLERK SHELTER Unavailable Cabrera Smallwood MD Unavailable [phone] Reason for Visit * Reason Comments Medication Refill Encounter Details Date Type Department Care Team (Late st Contact Info) Description 11/04/2022 Refill [facility] #2 [place] [address] Victoriano Reid MD #1 [place] [address] Medication Refill Social History Tobacco Use Types [...] Dept 09/19/22 Office Visit Victoriano Reid MD [facility] 01/05/22 Office Visit Nia Abbott, SUZY [facility] Showing recent visits within past 365 days and meeting all other requirements Future Appointments No visits were found meeting these conditions. Showing future appointments within next 90 days and meeting all other requirements BLEACHING MACHINE OPERATOR documented in this encounter Plan of Treatment Upcoming Encounters Date Type Department Care Team (Late st Contact Info) Description 02/25/2025 11:00 AM CDT Clinical Support [facility] UROLOGY #2 [place] [address] Nurse, [place] [facility] 03/02/2025 8:40 AM CDT Office Visit [facility] Medical Group - Family Medicine - [place] #2 [place] [address] Elva Olivares, DO [address] [address] 03/03/2025 1:30 PM CD[facility] [place] [address] Cabrera Yadav MD #[address] [address] Discharge Disposition: Discharged to home or Selfcare 03/24/2025 11:00 AM CDT Appointment [facility] Ultrasound 1 [place] [address] Elva Olivares, DO [address] [address] Discharge Disposition: Discharged to home or Selfcare 03/24/2025 12:15 PM CDT Appointment [facility] Mammography 1 [place] [address] Elva Olivares, DO [address] [address] documented as of this encounter Visit Diagnoses Diagnosis Neurogenic bladder Neurogenic bladder, NOS 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) documented in this encounter Additional Health Concerns Assessment Noted Time PHQ-9 Depression Total Score: 0 08/15/20 21 10:00 AM CDT documented as of this encounter Care Teams Senior It Assistant Relationship Specialty Start Date End Date Victoriano Reid MD PCP - General Family Medicine 06/19/19 06/29/24 Elva Olivares DO [address] [address] PCP - General Family Medicine 07/01/24 Malissa Joe RN [place] Nurse Instrumentation Fitter 12/03/23 12/03/23 Malissa Joe RN [place] Nurse Instrumentation Fitter 12/05/23 12/05/23 [place], [facility] Apartment Maintenance Manager Instrumentation Fitter 11/03/24 Cabrera Yadav MD #[address] [address] Consulting Physician Urology 11/07/24 documented as of this encounter
--- OUTSIDE RECORDS SUMMARY | 2025-02-24 19:01 | XMS_ITS | Encounter Summary ---
Author Organization [facility] Address [address] [place] [address] Phone Care Team Providers Care Shearer Screen Measurer And Trimmer Name Role Phone Victoriano Reid MD Primary Care Provider [phone] Elva Olivares DO Primary Care Provider [phone] Hinton [facility] Unavailable Cabrera Smallwood MD Unavailable [phone] Reason for Visit * Reason Comments Medication Refill Encounter Details Date Type Department Care Team (Late Contact Info) Description 02/18/2024 Refill [facility] Medical Group - Family Medicine [facility] #2 [place] [address] Victoriano Reid MD #1 [place] [address] Medication Refill Social History Tobacco Use Types Packs/Day Years Used Date Smoking Tobacco: Every Day Cigarettes Smokeless Tobacco: Never Alcohol Use Standard Drinks/Week Comments Not Currently 0 (1 standard drink = 0.6 oz pur e alcohol) [facility] Utilities Answer Date Recorded In the [...] often do you attend chur ch or shinto services? Never 12/20/2023 Do you belong to any clubs o r organizations such as gnosticism groups, unions, fraternal or athletic groups, or [...] Total Score - Questions 1-9 0 12/14 [facility] - Occupational [...] Rogers 10/23/23 Telemedicine Miriam Prasad APRN, L[facility] Showing recent visits within past 365 [...] Provider Dept 12/06/23 Telemedicine [facility] MD [facility] 10/23/23 Telemedicine Miriam Prasad APRN, LORI [facility] 03/29/23 Office Visit Victoriano Reid MD [facility] [...] Rogers 10/23/23 Telemedicine Miriam Prasad APRN, LORI [facility] 03/29/23 Office Visit Victoriano Reid MD [facility] Showing recent visits within past 365 days and meeting all other requirements Future Appointments No visits were found meeting these conditions. Showing future appointments within next 90 days and meeting all other requirements documented in this encounter Plan of Treatment Upcoming Encounters Date Type Department Care Team (Late st Contact Info) Description 02/25/2025 11:00 AM CDT Clinical Support [facility]2 [place] [address] Nurse, [facility] 03/02/2025 8:40 AM CDT Office Visit [facility] Medical Group - Family Medicine - [place] #2 [place] [facility] [place] [address] Elva Olivares, DO 2 [facility] [address] [address] [address] 03/03/2025 1:30 PM CDT [facility] 1 [place] [address] Cabrera Yadav MD #2 [facility] [address] [place] [address] Discharge Disposition: Discharged to home or Selfcare 03/24/2025 11:00 AM CDT [facility] 1 [place] [address] Elva Olivares, DO 2 [facility] [address] [place] [address] Discharge Disposition: Discharged to home or Selfcare 03/24/2025 12:15 PM CDT [facility] 1 [place] [address] Elva Olivares, DO [address] [address] documented as of this encounter Visit Diagnoses Diagnosis 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) Allergic rhinitis, unspecified seasonality, unspecified trigger Neurogenic bladder Neurogenic bladder, NOS documented in this encounter Additional Health Concerns Assessment Noted Time PHQ-9 Depression Total Score: 0 08/15/20 21 10:00 AM CDT documented as of this encounter Care Teams Shearer Screen Measurer And Trimmer Relationship Specialty Start Date End Date Victoriano Reid MD PCP - General Family Medicine 06/19/19 06/29/24 Elva Olivares DO 2 [facility] [address] [place] [address] PCP - General Family Medicine 07/01/24 [place] LSW [place] Scalehouse Attendant Telecommunications Clerk 11/03/24 Cabrera Yadav MD #[address] [address] Consulting Physician Urology 11/07/24 documented as of this encounter
--- OUTSIDE RECORDS SUMMARY | 2025-02-24 19:01 | XMS_ITS | Encounter Summary ---
Author Organization [facility] Address [address] [facility] [place] [address] Phone Care Team Providers Care Solar/Renewable Energy Sales Name Role Phone Elva Olivares Becky GARCIA Primary Care Provider [phone] [place] PATIENT ACCOUNT ANALYST Unavailable Cabrera Smallwood MD Unavailable [phone] Reason for Visit * Reason Onset Date Comments Need Order 07/08/2024 Encounter Details Date Type Department Care Team (Late st Contact Info) Description 07/08/2024 Telephone [facility] [address] [place] [address] Adwoa Hannah, PT [place] Need Order Social History Tobacco Use Types Packs/Day Years Used Date Smoking Tobacco: Every Day Cigarettes 2 15 Smokeless Tobacco: Never Alcohol Use Standard Drinks/Week Comments Not Currently 0 (1 standard drink = 0.6 oz pur e alcohol) [facility] Utilities Answer Date Recorded In the past 12 months has [employer], gas, oil, or water company threatened [...] week 04/15/2024 How often do you attend [facility] or bahai services? Never 04/15/2024 Do you belong to [...] Total Score - Questions 1-9 0 12/14 [facility] - Occupational Stress Questionnaire Answer [...] [facility] #[address] [place] [address] NurseKen Urology 03/02/2025 8:40 AM CDT [facility] - [place] #2 [place] [address] Elva Olivares, [address] [address] 03/03/2025 1:30 PM CD[facility] 1 [place] [address] Cabrera Yadav MD #[address] [address] Discharge Disposition: Discharged to home or Selfcare 03/24/2025 11:00 AM CDT [facility] 1 [place] [address] Elva Olivares DO [address] [address] Discharge Disposition: Discharged to home or Selfcare 03/24/2025 12:15 PM CDT [facility] 1 [place] [address] Elva Olivares DO [address] [address] documented as of this encounter Visit Diagnoses Not on filedocumented in this encounter Additional Health Concerns Assessment Noted Time PHQ-9 Depression Total Score: 0 08/15/20 21 10:00 AM CDT documented as of this encounter Care Teams Solar/Renewable Energy Sales Relationship Specialty Start Date End Date Elva Olivares DO 2 [facility] [address] [place] [address] PCP - General Family Medicine 07/01/24 [place], PATIENT ACCOUNT ANALYST [place] Insights Strategist Home Health Speech Therapist 11/03/24 Cabrera Yadav MD #[address] [address] Consulting Physician Urology 11/07/24 documented as of this encounter
--- OUTSIDE RECORDS SUMMARY | 2025-02-24 19:01 | XMS_ITS | Encounter Summary ---
Author Organization [facility] Address [address] [facility] [place] [address] Phone Care Team Providers Care E/M Engineer Name Role Phone Victoriano Reid MD Primary Care Provider [phone] Elva Olivares DO Primary Care Provider [phone] [place] IT TEACHER Unavailable Unavai Cabrera Dodge MD Unavailable [phone] Encounter Details Date Type Department Care Team (Late st Contact Info) Description 01/23/2024 Lab Requisition [facility] Laboratory Services 1 [place] [address] Victoriano Reid MD #1 [place] [address] Urinary tract infection, site not specified Social History Tobacco Use Types Packs/Day Years Used Date Smoking Tobacco: Every Day Cigarettes Smokeless Tobacco: Never Alcohol Use Standard Drinks/Week Comments Not Currently 0 (1 standard drink = 0.6 oz pur e alcohol) [facility] Utilities Answer Date Recorded In the past [...] often do you attend chur ch or latter-day services? Never 12/20/2023 Do you belong to any clubs o r organizations such as adventist groups, unions, fraternal or athletic groups, or [...] Total Score - Questions 1-9 0 12/14 [facility] - Occupational [...] Description 02/25/2025 11:00 AM CDT Clinical Support [facility] UROLOGY #2 [place] [address] Nurse, [facility] 03/02/2025 8:40 AM CDT Office Visit [facility] #2 [place] [address] Elva Olivares, DO 2 [facility] [place] [facility]. [address] [place] [address] 03/03/2025 1:30 PM CDT Appointment [facility] CT 1 [facility] [place] [address] Cabrera Yadav MD #2 [facility] [address] [place] [address] Discharge Disposition: Discharged to home or Selfcare 03/24/2025 11:00 AM CDT Appointment [facility] Ultrasound [address] [place] [address] Elva Olivares, DO 2 [facility] [address] [place] [address] Discharge Disposition: Discharged to home or Selfcare 03/24/2025 12:15 PM CDT Appointment [facility] Mammography [address] [place] [address] Elva Olivares, DO 2 [facility] [address] [place] [address] documented as of this encounter Procedures Procedure [...] RESULTS ENTEROCOCCUS FAECALIS 01/25/2024 9:08 PM CDT [facility] Urine Non-Phlebotomy Collection / Unknown 01/23/2024 2:45 PM CDT 01/23/2024 3:40 PM CDT Narrative [facility] - 01/25/2024 9:08 PM CDT Susceptibility not performed on enterococcus species. Due to high achievable concentrations in urine, Ampicillin is the drug of choice for treating infections limited to the lower urinary tract (regardless of Vancomycin susceptibility). For allergic patients, Nitrofurantoin or a quinolone may be substituted. us Victoriano Reid MD MICROBIOLOGY - GENERAL ORDERABLE S Final Result [facility] [address] [place] [address], * (ABNORMAL) URINALYSIS REFLEX IF INDICATED BY ABNORMAL RESULTS (01/23/2024 2:45 PM CDT) SPECIFIC GRAVITY 1.010 1.003 - 1.030 01/23/2024 3:56 PM CDT [facility] URINE PH 7.0 5.0 - 9.0 01/23/2024 3:56 PM CDT [facility] WBC ESTERASE 500 /uL(A) Negative 01/23/2024 3:56 PM CDT [facility] NITRITE Positive(A) Negative 01/23/2024 3:56 PM CDT [facility] PROTEIN, RANDOM URINE 30 mg/dL(A) Negative 01/23/2024 3:56 PM CDT [facility] URINE GLUCOSE, QUAL Negative Negative 01/23/2024 3:56 PM CDT [facility] URINE KETONES Negative Negative 01/23/2024 3:56 PM CDT [facility] UROBILINOGEN Normal Normal mg/dL 01/23/2024 3:56 PM CDT [facility] URINE BLOOD 250 /uL(A) Negative josefa/ul 01/23/2024 3:56 PM CDT [facility] URINALYSIS COLOR Yellow 01/23/20 24 3:56 PM CDT [facility] URINALYSIS CLARITY Slightly Cloudy 01/23/2024 3:56 PM CDT [facility] WBC (Urine) 11-20(A) Negative, 0-5 /hpf 01/23/2024 3:56 PM CDT [facility] URINE RBC'S 51-150(A) Negative, 0-2 /hpf 01/23/2024 3:56 PM CDT [facility] EPITHELIAL CELLS Small amount /lpf 04/10/ 2024 3:56 PM CDT [facility] BACTERIA, URINE Few(A) Negative /hpf 01/23/2024 3:56 PM CDT [facility] Urine Non-Phlebotomy Collection / Unknown 01/23/2024 2:45 PM CDT 01/23/2024 3:40 PM CDT Victoriano Reid MD URINE ORDERABLES Final Result [facility] #1 [facility] [place] [address] documented in this encounter Visit Diagnoses Diagnosis Urinary tract infection, site not specified documented in this encounter Additional Health Concerns Assessment Noted Time PHQ-9 Depression Total Score: 0 08/15/20 21 10:00 AM CDT documented as of this encounter Care Teams E/M Engineer Relationship Specialty Start Date End Date Victoriano Reid MD PCP - General Family Medicine 06/19/19 06/29/24 Elva Olivares DO 2 [facility] [place] [facility] [address] [place] [address] PCP - General Family Medicine 07/01/24 H[place], [facility] Cell Pourer Aircraft Mechanic Structures 11/03/24 Cabrera Yadav MD #2 [facility] [address] [place] [address] Consulting Physician Urology 11/07/24 documented as of this encounter
--- OUTSIDE RECORDS SUMMARY | 2025-02-24 19:01 | XMS_ITS | Encounter Summary ---
Author Organization [facility] Address [address] [place] [address] Phone Care Team Providers Care Softball Core Molder Name Role Phone Victoriano Reid MD Primary Care Provider [phone] Malissa Joe RN Unavailable Unavailable Malissa Joe RN Unavailable Unavailable Elva Olivares DO Primary Care Provider [phone] [place] RADIOLOGIST Unavailable Cabrera Smallwood MD Unavailable [phone] Reason for Visit * Reason Comments Medication Refill Encounter Details Date Type Department Care Team (Late st Contact Info) Description 08/28/2022 Refill [facility] Medical Group - Family Medicine [facility] #2 [place] [address] Victoriano Reid MD #1 [place] [address] Medication Refill Social History Tobacco Use Types [...] Yara Peacock RN - 08/28/2022 11:03 AM LICENSED NURSE PRACTITIONER Medication failed the protocol, provider to review [...] Dept 01/05/22 Office Visit Nia Abbott PAC [facility] Showing recent visits within past 365 days and meeting all other requirements Future Appointments Date Type Provider Dept 08/29/22 Appointment Victoriano Reid MD [facility] Showing future appointments within next 90 days and meeting all other requirements NSED NURSE PRACTITIONER documented in this encounter Plan of Treatment Upcoming Encounters Date Type Department Care Team (Late st Contact Info) Description 02/25/2025 11:00 AM CDT Clinical Support [facility] [place] [address] NurseGarth Urology 03/02/2025 8:40 AM CDT Office [facility] [place] [facility] [place] [address] Elva Olivares, DO 2 [facility] [address] [place] [address] 03/03/2025 1:30 PM CDT [facility] 1 [facility] [place] [address] Cabrera Yadav MD #[address] [address] Discharge Disposition: Discharged to home or Selfcare 03/24/2025 11:00 AM CDT [facility] 1 [place] [address] Elva Olivares DO [address] [address] Discharge Disposition: Discharged to home or Selfcare 03/24/2025 12:15 PM CDT [facility] 1 [facility] [place] [address] Elva Olivares DO 2 [facility] [address] [address] documented as of this encounter Visit Diagnoses Not on filedocumented in this encounter Additional Health Concerns Assessment Noted Time PHQ-9 Depression Total Score: 0 08/15/20 21 10:00 AM CDT documented as of this encounter Care Teams Softball Core Molder Relationship Specialty Start Date End Date Victoriano Reid MD PCP - General Family Medicine 06/19/19 06/29/24 Elva Olivares DO 2 [facility] [address] [place] [address] PCP - General Family Medicine 07/01/24 Malissa Joe, RN [place] Nurse Vp Of Technology 12/03/23 12/03/23 Malissa Joe, RN [place] Nurse Vp Of Technology 12/05/23 12/05/23 [place], RADIOLOGIST OR Hazmat Technician Vp Of Technology 11/03/24 Cabrera Yadav MD #[address] [address] Consulting Physician Urology 11/07/24 documented as of this encounter
--- OUTSIDE RECORDS SUMMARY | 2025-02-24 19:01 | XMS_ITS | Encounter Summary ---
Author Organization [facility] Address [address] [place] [address] Phone Care Team Providers Care Sales Vendor Name Role Phone Victoriano Reid MD Primary Care Provider Elva Olivares DO Primary Care Provider [phone] [place] [facility] Unavailable Cabrera Smallwood MD Unavailable [phone] Reason for Visit * Reason Comments Medication Refill Encounter Details Date Type Department Care Team (Late Contact Info) Description 02/23/[address] [facility] Medical Group - Family Medicine [facility] #2 [place] [address] Victoriano Reid MD #1 [place] [address] Medication Refill Social History Tobacco [...] any clubs o r organizations such as hinduism groups, unions, fraternal or athletic groups, or [...] Total Score - Questions 1-9 0 12/14 [facility] Occupat ional Health - [...] place to sleep or slept in a correction (including now)? No 12/20/2023 Education Answer Date [...] Requested Prescriptions Pending Prescriptions Disp Refills nystatin [id number] UNIT/GM Powder [Pharmacy Med Name: NYSTOP TOP [...] [facility] 10/23/23 Telemedicine Miriam Prasad APRN, FIELD TECH [facility] [place] 03/29/23 Office Visit [facility] [...] Description 02/25/2025 11:00 AM CDT Clinical Support [facility] #2 [place] [address] Nurse Tyr[place] Urology 03/02/2025 8:40 AM CDT Office Visit [facility] Medical Group - Family Medicine [facility] #2 [place] [address] Elva Olivares, DO 2 [facility] [address] [place] [address] 03/03/2025 1:30 PM CD[facility] [address] [place] [address] Cabrera Yadav MD #[address] [address] Discharge Disposition: Discharged to home or Selfcare 03/24/2025 11:00 AM CDT [facility] 1 [place] [address] Elva Olivares, DO 2 [facility] [address] [place] [address] Discharge Disposition: Discharged to home or Selfcare 03/24/2025 12:15 PM CDT [facility] 1 [place] [address] Elva Olivares, DO 2 [facility] [address] [place] [address] documented as of this encounter Visit Diagnoses Diagnosis Skin yeast infection Candidiasis of skin and nails documented in this encounter Additional Health Concerns Assessment Noted Time PHQ-9 Depression Total Score: 0 08/15/20 21 10:00 AM CDT documented as of this encounter Care Teams Sales Vendor Relationship Specialty Start Date End Date Victoriano Reid MD PCP - General Family Medicine 06/19/19 06/29/24 Elva Olivares DO 2 [email or web address]. [address] [place] [address] PCP - General Family Medicine 07/01/24 [place], [facility] Vendor Specialist Supply Chain Assistant 11/03/24 Cabrera Yadav MD #2 [facility] [address] [place] [address] Consulting Physician Urology 11/07/24 documented as of this encounter
--- OUTSIDE RECORDS SUMMARY | 2025-02-24 19:01 | XMS_ITS | Encounter Summary ---
Author Organization [facility] Address [address] [place] [address] Phone Care Team Providers Care Silk Washing Machine Operator Name Role Phone Victoriano Reid MD Primary Care Provider [phone] Elva Olivares DO Primary Care Provider [phone] [place] [facility] Unavailable Cabrera Smallwood MD Unavailable [phone] Reason for Visit * Reason Comments Medication Refill Encounter Details Date Type Department Care Team (Late Contact Info) Description 03/19/2024 Refill [facility] - Family Medicine [facility] #2 [place] [address] Victoriano Reid MD #1 [place] [address] Medication Refill Social History Tobacco [...] any clubs o r organizations such as sikhism groups, unions, fraternal or athletic groups, or [...] - Questions 1-9 0 12/14 [facility] - [...] Provider Dept 12/06/23 Telemedicine Victoriano Reid MD [facility] 10/23/23 Telemedicine Miriam Prasad APRN, LORI [...] Provider Dept 12/06/23 Telemedicine Victoriano Reid MD [facility] 10/23/23 Telemedicine Miriam Prasad APRN, ORACLE SOA CONSULTANT [facility] 03/29/23 Office Visit Victoriano Reid MD [facility] Showing recent visits within past 365 days and meeting all other requirements Future Appointments No visits were found meeting these conditions. Showing future appointments within next 90 days and meeting all other requirements documented in this encounter Plan of Treatment Upcoming Encounters Date Type Department Care Team (Late st Contact Info) Description 02/25/2025 11:00 AM CDT Clinical Support [facility] PHYSICIAN GROUP UROLOGY #2 [place] [address] Nurse, [place] [facility] 03/02/2025 8:40 AM CDT Office Visit [facility] - Family Medicine - [place] #2 [place] [address] Elva Olivares, DO 2 [facility]. [address] [place] [address] 03/03/2025 1:30 PM CDT [facility] [address] [place] [address] Cabrera Yadav MD #2 [facility] [address] [place] [address] Discharge Disposition: Discharged to home or Selfcare 03/24/2025 11:00 AM CDT [facility]ound 1 [facility] [address] Elva Olivares, DO 2 [facility] [address] [place] [address] Discharge Disposition: Discharged to home or Selfcare 03/24/2025 12:15 PM CDT Appointment [facility] Mammography [address] [place] [address] Elva Olivares, DO 2 [facility] [address] [address] documented as of this encounter Visit Diagnoses Diagnosis Allergic rhinitis, unspecified seasonality, unspecified trigger Neurogenic bladder Neurogenic bladder, NOS Painful bladder spasm Other symptoms involving urinary system Muscle spasm Spasm of muscle documented in this encounter Additional Health Concerns Assessment Noted Time PHQ-9 Depression Total Score: 0 08/15/20 21 10:00 AM CDT documented as of this encounter Care Teams Silk Washing Machine Operator Relationship Specialty Start Date End Date Victoriano Reid MD PCP - General Family Medicine 06/19/19 06/29/24 Elva Olivares DO 2 [facility] [address] [address] PCP - General Family Medicine 07/01/24 [place], [facility] Casting Wheel Operator Supervisor Felling Bucking 11/03/24 Cabrera Yadav MD #2 [facility] [address] [address] Consulting Physician Urology 11/07/24 documented as of this encounter
--- OUTSIDE RECORDS SUMMARY | 2025-02-24 19:01 | XMS_ITS | Encounter Summary ---
Author Organization [facility] Address [address] [place] [address] Phone Care Team Providers Care Interventional Radiology Rn Name Role Phone Victoriano Reid MD Primary Care Provider [phone] Elva Olivares DO Primary Care Provider [phone] [place] [facility] Unavailable Cabrera Smallwood MD Unavailable [phone] Reason for Visit * Reason Comments Medication Refill Encounter Details Date Type Department Care Team (Late Contact Info) Description 01/19/2024 Refill [facility] - Family Medicine [facility] #2 [place] [address] Victoriano Reid MD #1 [place] [address] Medication Refill Social History Tobacco Use Types Packs/Day Years Used Date Smoking Tobacco: Every Day Cigarettes Smokeless Tobacco: Never Alcohol Use Standard Drinks/Week Comments Not Currently 0 (1 standard drink = 0.6 oz pur e alcohol) [facility] Utilities Answer Date Recorded In the [...] often do you attend chur ch or cheondoism services? Never 12/20/2023 Do you belong to any clubs o r organizations such as bahai groups, unions, fraternal or athletic groups, or [...] Total Score - Questions 1-9 0 12/14 [facility] - Occupational Stress [...] place to sleep or slept in a mcc (including now)? No 12/20/2023 Education Answer Date [...] MD Osmariela Rogers 10/23/23 Telemedicine Miriam Prasad HANGING FLAGS DECORATOR, MEDICAL SOCIAL WORKER [facility] 03/29/23 Office Visit Victoriano Reid MD [facility] Showing recent visits [...] 11:00 AM CDT Clinical Support [facility] PHYSICIAN [facility] UROLOGY #2 [place] [address] Nurse [place] [facility] 03/02/2025 8:40 AM CDT Office Visit [facility] - Family Medicine - [place] #[address] [place] [address] Elva Olivares, DO 2 [facility] [address] [place] [address] 03/03/2025 1:30 PM CDT [facility] 1 [place] [address] Cabrera Yadav MD #[address] [address] Discharge Disposition: Discharged to home or Selfcare 03/24/2025 11:00 AM CDT [facility] Ul[facility]ound 1 [place] [address] Elva Olivares, DO 2 [facility] [address] [place] [address] Discharge Disposition: Discharged to home or Selfcare 03/24/2025 12:15 PM CDT Appointment [facility] Mammography 1 [place] [address] Elva Olivares, DO 2 [facility] [address] [place] [address] documented as of this encounter Visit Diagnoses Not on filedocumented in this encounter Additional Health Concerns Assessment Noted Time PHQ-9 Depression Total Score: 0 08/15/20 21 10:00 AM CDT documented as of this encounter Care Teams Interventional Radiology Rn Relationship Specialty Start Date End Date Victoriano Reid MD PCP - General Family Medicine 06/19/19 06/29/24 Elva Olivares DO 2 [facility]. [address] [place] [address] PCP - General Family Medicine 07/01/24 [place], [facility] Environmental Issues Instructor Manager Neonatal 11/03/24 Cabrera Yadav MD #2 [facility] [address] [place] [address] Consulting Physician Urology 11/07/24 documented as of this encounter
--- OUTSIDE RECORDS SUMMARY | 2025-02-24 19:01 | XMS_ITS | Encounter Summary ---
Author Organization [facility] Address [address] [place] [address] Phone Care Team Providers Care Instant Powder Supervisor Name Role Phone Victoriano Reid MD Primary Care Provider [phone] Elva Olivares DO Primary Care Provider [phone] [place] [facility] Unavailable Cabrera Smallwood MD Unavailable [phone] Reason for Visit * Reason Comments Medication Refill Encounter Details Date Type Department Care Team (Late Contact Info) Description 02/22/2024 [facility] #2 [place] [address] Victoriano Reid MD #1 [place] [address] Medication Refill Social History Tobacco Use Types Packs/Day Years Used Date Smoking Tobacco: Every Day Cigarettes Smokeless Tobacco: Never Alcohol Use Standard Drinks/Week Comments Not Currently 0 (1 standard drink = 0.6 oz pur e alcohol) [facility] Utilities Answer Date Recorded In [...] Pending Prescriptions Disp Refills ergocalciferol (VITAMIN D) 00777 UNIT Capsule [Pharmacy Med Name: VITAMIN D2 [...] MD [facility] [place] 10/23/23 Telemedicine Miriam Prasad, FIRE ALARM INSPECTOR, [facility] 03/29/23 Office Visit Victoriano [facility] MD [facility] Showing recent visits within past 365 [...] 11:00 AM CDT Clinical Support [facility] PHYSICIAN GROUP UROLOGY #2 [place] [address] Nurse, [place] [facility] 03/02/2025 8:40 AM CDT [facility] - [place] #[address] [place] [address] Elva Olivares, DO 2 [facility] [address] [place] [address] 03/03/2025 1:30 PM CDT [facility] 1 [facility] [place] [address] Cabrera Yadav MD #[address] [address] Discharge Disposition: Discharged to home or Selfcare 03/24/2025 11:00 AM CDT [facility] 1 [place] [address] Elva Olivares, DO 2 [facility] [address] [place] [address] Discharge Disposition: Discharged to home or Selfcare 03/24/2025 12:15 PM CDT [facility] 1 [place] [address] Elva Olivares, DO 2 [facility] [address] [place] [address] documented as of this encounter Visit Diagnoses Diagnosis Vitamin D deficiency Unspecified vitamin D deficiency documented in this encounter Additional Health Concerns Assessment Noted Time PHQ-9 Depression Total Score: 0 08/15/20 21 10:00 AM CDT documented as of this encounter Care Teams Instant Powder Supervisor Relationship Specialty Start Date End Date Victoriano Reid MD PCP - General Family Medicine 06/19/19 06/29/24 Elva Olivares DO 2 [facility] [address] [place] [address] PCP - General Family Medicine 07/01/24 [place], [facility] Customer Success Advocate Building Performance Consultant 11/03/24 Cabrera Yadav MD #2 [facility] [address] [place] [address] Consulting Physician Urology 11/07/24 documented as of this encounter
--- OUTSIDE RECORDS SUMMARY | 2025-02-24 19:02 | XMS_ITS | Encounter Summary ---
Author Organization [facility] Address [address] [place] [address] Phone Care Team Providers Care Electric Razor Assembler Name Role Phone Elva Olivares DO Primary Care Provider [phone] Cabrera Yadav MD Unavailable [phone] Reason for Visit * Reason Onset Date Comments Medication Refill 02/23/2025 Encounter Details Date Type Department Care Team (Late st Contact Info) Description 02/23/2025 Refill [facility] #2 [place] [address] Elva Olivares, DO [address] [address] Medication Refill Social History Tobacco Use Types Packs/Day Years Used Date Smoking Tobacco: Every Day Cigarettes 2 51.4 Started: 1971 Smokeless Tobacco: Never Alcohol Use Standard Drinks/Week Comments Not Currently 0 (1 standard drink = 0.6 oz pur e alcohol) [facility] Utilities Answer Date Recorded In the past 12 months has [place], gas, oil, or water company threatened to [...] often do you attend chur ch or zoroastrianism services? Never 04/15/2024 Do you belong to [...] Total Score - Questions 1-9 0 12/14 [facility] - Occupational [...] any time in the past 12 m [facility], were you homeless or living in [...] Telephone Encounter - Camilla Hauser RN - 02/24/2025 8:26 AM CDT Medication failed the protocol, provider to review and approve the medication order if appropriate. Requested Prescriptions Pending Prescriptions Disp Refills acyclovir (ZOVIRAX) 400 MG Tablet 90 Tablet 1 Sig: Take 1 Tablet by mouth 3 times daily. Not Delegated - Herpes Agents Protocol Failed - 02/24/2025 8:26 AM Failed - This refill cannot be delegated Passed - Visit with relevant provider in past 12 months or upcoming 90 days Recent Visits Date Type Provider Dept 07/01/24 Office Visit Elva Olivares DO [facility] [place] 04/15/24 Office Visit Singh Myrick, LEASE ADMINISTRATION ANALYST, TRUCK FARMER [facility] Showing recent visits within past 365 days and meeting all other requirements Future Appointments Date Type Provider Dept 03/02/25 Appointment Elav Olivares DO [facility] Ken Showing future appointments within next 90 days and meeting all other requirements * Telephone Encounter - Bronwyn Canales MA - 02/23/2025 10:24 AM CDT [facility] refill fax request: Acyclovir 400 mg tabs documented in this encounter Plan of Treatment Upcoming Encounters Date Type Department Care Team (Late st Contact Info) Description 02/25/2025 11:00 AM CDT Clinical Support [facility] PHYSICIAN GROUP UROLOGY #2 [place] [address] NurseKen Urology 03/02/2025 8:40 AM CDT Office Visit [facility] - Family Medicine - [place] #2 [place] [address] Elva Olivares DO 2 [facility]. [address] [place] [address] 03/03/2025 1:30 PM CDT [facility] 1 [place] [address] Cabrera Yadav MD #2 [facility] [address] [place] [address] Discharge Disposition: Discharged to home or Selfcare 03/24/2025 11:00 AM CDT [facility] 1 [place] [address] Elva [address]ares DO 2 [facility] [address] [place] [address] Discharge Disposition: Discharged to home or Selfcare 03/24/2025 12:15 PM CDT Appointment [facility] Mammography [address] [place] [address] Elva Olivares DO 2 [facility] [address] [place] [address] documented as of this encounter Visit Diagnoses Not on filedocumented in this encounter Additional Health Concerns Assessment Noted Time PHQ-9 Depression Total Score: 0 08/15/20 21 10:00 AM CDT documented as of this encounter Care Teams Electric Razor Assembler Relationship Specialty Start Date End Date Elva Olivares DO 2 [facility] [address] [place] [address] PCP - General Family Medicine 07/01/24 Cabrera Yadav MD #2 [facility] [address] [address] Consulting Physician Urology 11/07/24 documented as of this encounter
--- OUTSIDE RECORDS SUMMARY | 2025-02-24 19:02 | XMS_ITS | Continuity of Care Document ---
Author Organization [facility] Address [address] [place] [address] [place] [address] Phone Care Team Providers Care Potline Monitor Name Role Phone Jason Tejada MD Unavailable Unavailable Procedures Procedure Date Eye Exam & Treatment Advance Directives Directive Yes / No Effective Date File Name No Information Encounters Encounter Description Practice Location Reason(s) For Visit Diagnoses Date Provider Providers Copied on Encounter [facility], [id number] [place] [address] [address], [place], [place], [id number], [place] tel:[phone] [facility] No Information 4-200 7 Mallory Gomez. [address] [facility] [address], [place], [place], [id number], [place]. tel:[phone] Family History Family Member Type Diagnosis Age At Onset No Information Payers Payer name Insurance type Covered republican ID Authoriza tion(s) Medicaid [facility] [id number] Social History Type Description Quantity Date Captured [...]
--- OUTSIDE RECORDS SUMMARY | 2025-02-24 19:02 | XMS_ITS | Encounter Summary ---
Author Organization [facility] Address [address] [place] [address] Phone Care Team Providers Care Knocker Off Name Role Phone Victoriano Reid MD Primary Care Provider [phone] Malissa Joe RN Unavailable Unavailable Malissa Joe RN Unavailable Unavailable Elva Olivares DO Primary Care Provider [phone] [place] SCHOOL MANAGER Unavailable Unaabdirizaki Cabrera Dodge MD Unavailable [phone] Encounter Details Date Type Department Care Team (Late st Contact Info) Description 11/23/2021 Lab Requisition [facility] Laboratory Services 1 [place] [address] Victoriano Reid MD #1 [place] [address] Social History Tobacco Use Types Packs/Day Years [...] Description 02/25/2025 11:00 AM CDT Clinical Support [facility] PHYSICIAN [facility] UROLOGY #2 [place] [address] Nurse [place] [facility] 03/02/2025 8:40 AM CDT Office Visit [facility] #2 [facility] [place] [address] Elva Olivares, DO 2 [facility] [address] [place] [address] 03/03/2025 1:30 PM CDT [facility] 1 [facility] [place] [address] Cabrera Yadav MD #[address] [address] Discharge Disposition: Discharged to home or Selfcare 03/24/2025 11:00 AM CDT [facility] 1 [place] [address] Elva Olivares, DO 2 [facility] [address] [place] [address] Discharge Disposition: Discharged to home or Selfcare 03/24/2025 12:15 PM CDT [facility] M[facility] 1 [place] [address] Elva Olivares, DO 2 [facility] [address] [place] [address] documented as of this encounter Visit Diagnoses Not on filedocumented in this encounter Additional Health Concerns Assessment Noted Time PHQ-9 Depression Total Score: 0 08/15/20 21 10:00 AM CDT documented as of this encounter Care Teams Knocker Off Relationship Specialty Start Date End Date Victoriano Reid MD PCP - General Family Medicine 06/19/19 06/29/24 Elva Olivares DO 2 [facility] [address] [place] [address] PCP - General Family Medicine 07/01/24 Malissa Joe, RN [place] Nurse Supervisor Irrigation 12/03/23 12/03/23 Malissa Joe, RN [place] Nurse Supervisor Irrigation 12/05/23 12/05/23 [place], SCHOOL MANAGER [place] Telephone Directory Distributor Driver Supervisor Irrigation 11/03/24 Cabrera Yadav MD #2 [facility] [address] [place] [address] Consulting Physician Urology 11/07/24 documented as of this encounter
--- OUTSIDE RECORDS SUMMARY | 2025-02-24 19:02 | XMS_ITS | Encounter Summary ---
Author Organization [facility] Address [address] [place] [address] Phone Care Team Providers Care Coil Machine Operator Name Role Phone Victoriano Reid MD Primary Care Provider [phone] Malissa Joe RN Unavailable Unavailable Malissa Joe RN Unavailable Unavailable Elva Olivares DO Primary Care Provider [phone] [place] LEAD CONSULTANT Unavailable Cabrera Smallwood MD Unavailable [phone] Reason for Visit * Reason Comments Medication Refill Encounter Details Date Type Department Care Team (Late st Contact Info) Description 07/01/2023 Refill [facility] - Family [facility] #2 [place] [address] Victoriano Reid MD #1 [place] [address] Medication Refill Social History Tobacco Use Types [...] Rogers 09/19/22 Office Visit Victoriano Reid MD [facility] Showing recent visits within past 365 days and meeting all other requirements Future Appointments No visits were found meeting these conditions. Showing future appointments within next 90 days and meeting all other requirements documented in this encounter Plan of Treatment Upcoming Encounters Date Type Department Care Team (Late st Contact Info) Description 02/25/2025 11:00 AM CDT Clinical Support [facility] PHYSICIAN GROUP UROLOGY #2 [place] [address] Nurse, [place] [facility] 03/02/2025 8:40 AM CDT Office Visit [facility] - Family Medicine - [place] #2 [place] [address] Elva Olivares, DO [address] [address] 03/03/2025 1:30 PM CDT [facility] [address] [place] [address] Cabrera Yadav MD #[address] [address] Discharge Disposition: Discharged to home or Selfcare 03/24/2025 11:00 AM CDT Appointment [facility] Ultrasound 1 [place] [address] Elva Olivares, DO 2 [facility] [address] [place] [address] Discharge Disposition: Discharged to home or Selfcare 03/24/2025 12:15 PM CDT Appointment [facility] Mammography 1 [place] [address] Elva Olivares, [address] [address] documented as of this encounter Visit Diagnoses Diagnosis Neurogenic bladder Neurogenic bladder, NOS 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) documented in this encounter Additional Health Concerns Assessment Noted Time PHQ-9 Depression Total Score: 0 08/15/20 21 10:00 AM CDT documented as of this encounter Care Teams Coil Machine Operator Relationship Specialty Start Date End Date Victoriano Reid MD PCP - General Family Medicine 06/19/19 06/29/24 Elva Olivares DO [address] [address] PCP - General Family Medicine 07/01/24 Malissa Joe RN [place] Nurse Osha Inspector 12/03/23 12/03/23 Joe, Malissa M, RN [place] Nurse Osha Inspector 12/05/23 12/05/23 [place], LEAD CONSULTANT [place] Carbon Cutter Osha Inspector 11/03/24 Cabrera Yadav MD #[address] [address] Consulting Physician Urology 11/07/24 documented as of this encounter
--- OUTSIDE RECORDS SUMMARY | 2025-02-24 19:02 | XMS_ITS | Encounter Summary ---
Author Organization [facility] Address [address] [place] [address] Phone Care Team Providers Care Endocrinology Physician Name Role Phone Victoriano Reid MD Primary Care Provider [phone] Malissa Joe RN Unavailable Unavailable Malissa Joe RN Unavailable Unavailable Elva Olivares DO Primary Care Provider [phone] [place] ASSISTANT OCEANOGRAPHER Unavailable Unaabdirizaki Cabrera Dodge MD Unavailable [phone] Encounter Details Date Type Department Care Team (Late st Contact Info) Description 01/02/2022 Home Health Resumpti on of Care Planning [facility] [address] [place] [address] Social History Tobacco Use Types Packs/Day Years [...] Description 02/25/2025 11:00 AM CDT Clinical Support [facility] PHYSICIAN [facility] UROLOGY #2 [place] [address] Nurse [place] [facility] 03/02/2025 8:40 AM CDT Office Visit [facility] Medical Group - Family Medicine - [place] #2 [place] [address] Elva Olivares, DO 2 [facility] [address] [place] [address] 03/03/2025 1:30 PM CDT [facility] [address] [place] [address] Cabrera Yadav MD #[address] [address] Discharge Disposition: Discharged to home or Selfcare 03/24/2025 11:00 AM CDT [facility] 1 [place] [address] Elva Olivares, DO 2 [facility] [address] [place] [address] Discharge Disposition: Discharged to home or Selfcare 03/24/2025 12:15 PM CDT Appointment [facility] Mammography 1 [place] [address] Elva Olivares, DO 2 [facility]. [address] [place] [address] documented as of this encounter Visit Diagnoses Not on filedocumented in this encounter Additional Health Concerns Assessment Noted Time PHQ-9 Depression Total Score: 0 08/15/20 21 10:00 AM CDT documented as of this encounter Care Teams Endocrinology Physician Relationship Specialty Start Date End Date Victoriano Reid MD PCP - General Family Medicine 06/19/19 06/29/24 Elva Olivares DO 2 [facility]. [address] [place] [address] PCP - General Family Medicine 07/01/24 Malissa Joe, RN [place] Nurse Plumber 12/03/23 12/03/23 Malissa Joe RN [place] Nurse Plumber 12/05/23 12/05/23 [place], ASSISTANT OCEANOGRAPHER [place] Laboratory Mechanical Technician Plumber 11/03/24 Cabrera Yadav MD #2 [facility] [address] [place] [address] Consulting Physician Urology 11/07/24 documented as of this encounter
--- OUTSIDE RECORDS SUMMARY | 2025-02-24 19:02 | XMS_ITS | Encounter Summary ---
Author Organization [facility] Address [address] [place] [address] Phone Care Team Providers Care Assistant Controller Name Role Phone Elva Olivares Becky GARCIA Primary Care Provider [phone] Cabrera Yadav MD Unavailable [phone] Reason for Visit * Auth/Cert (Routine) Specialty Diagnoses / Procedures Referred By Contena t Referred To Contact Diagnoses BLADDER STONES Procedures CYSTOSCOPY BLADDER STONE Cabrera Yadav MD #[address] [address] Phone: tel: fax: Referral ID Status Reason Start Date Expiration Date Visits Re quested Visits Authorized [id number] 1 1 Encounter Details Date Type Department Care Team (Late Contact Info) Description 02/17/2025 Hospital [facility]counter [facility] Periop 1 [place] [id number] Cabrera Yadav MD #[address] [address] Social History Tobacco Use Types Packs/Day Years Used Date Smoking Tobacco: Every Day Cigarettes 2 51.4 Started: 1971 Smokeless Tobacco: Never Tobacco Cessation:Ready to Q uit: Not Asked; Counseling Given: Not Answered Alcohol Use Standard Drinks/Week Comments Not Currently 0 (1 standard drink = 0.6 oz pur e alcohol) [facility] Utilities Answer Date Recorded In the [...] often do you attend chur ch or druze services? Never 04/15/2024 Do you belong to [...] Total Score - Questions 1-9 0 12/14 [facility] [place] of Occupat ional Health - Occupational Stress [...] any time in the past 12 m [facility], were you homeless or living in [...] on file documented as of this encounter Last Filed Vital Signs Vital Sign Reading Time Taken Comments Blood Pressure - - Pulse - - Temperature - - Respiratory Rate - - Oxygen Saturation - - Inhaled Oxygen Concentration - - Weight 79.4 kg (175 lb) 02/02/2025 1:00 PM CDT Height 167.6 cm (5' 6 ) 02/02/2025 1:00 PM CDT Body Mass Index 28.25 02/02/2025 1:00 PM CDT documented in this encounter Miscellaneous Notes * Interdisciplinary - Susie Pham RN - 02/02/2025 2:49 PM CDT PLEASE READ THIS IMPORTANT INFORMATION Currently, your procedure is scheduled for MONDAY, FEBRUARY 17, 2025. You will need to arrive at 11:30 A.M.. (Should there be a change in your arrival time, you will be notified the weekday prior to your surgery date). You will be receiving: [] LOCAL [] MONITORED SEDATION [] SPINAL [x] GENERAL And/or anesthetic. IN ADVANCE OF YOUR SURGERY DAY COMPLETE Pre-Procedure testing: NONE [] Lab [] EKG [] X-RAY [] URINE These need to be completed at [facility], Sunday - Sunday from 0700 am - 3 pm. Report to the registration desk. Bring your photo ID and insurance card. ARRANGE INTERNATIONAL ORGANIZER- For your safety, after having anesthesia, You must have an adult four horse hitch driver (18 yrs or older) arranged in advance of your procedure who can listen to your discharge instructions with you and can stay with you if needed for 24 hrs following your procedure. If you are using public transportation, you must have an adult, you know, ( 18 yrs or older) to accompany you. STOP MEDICATIONS PER YOUR SURGEONS ORDERS: HOLD ASPIRIN FOR 7 DAYS PRIOR TO SURGERY. HOLD Herbal supplements, Multivitamins, Vitamin E, and Fish Oil Omegas for 3 days prior to the procedure. DO NOT: Smoke, vape, chew or drink alcohol for 24 hours prior to the procedure Shave the operative site Bring any valuables or money with you Wear makeup or jewelry. Remove all body piercings FAILURE TO FOLLOW THE ABOVE INSTRUCTIONS IN ADVANCE MAY RESULT IN CANCELLATION OF YOUR PROCEDURE ONTHE DAY OF IT. ON THE DAY OF SURGERY NOTHING TO EAT OR DRINK FOR 8 HRS PRIOR TO ARRIVAL TIME ON YOUR PROCEDURE DATE! NO GUM, MINTS, WATER, ETC. FAILURE TO FOLLOW THESE INSTRUCTIONS MAY CAUSE YOUR PROCEDURE TO BE CANCELLED FOR YOUR SAFETY. Please take ONLY the following medications with a sip of water before coming to the hospital on theday of your surgery: BACLOFEN OXYBUTYNIN GABAPENTIN DO: Bathe or shower the night before or the day of your procedure Your Doctor's office may give you special cleansers with instructions Wear comfortable clothes that are easy to change in and out of. Wear safe non-slip shoes Bring a list of current medications, including and any [id number] medications and supplements(such as herbs and essential oils) with dosages and how often you take them. Bring CPAP machine if you have sleep apnea and will be staying overnight. Note children under 16 must be accompanied by a parent or legal guardian in the hospital at all times. Report to Registration Upon Arrival Please enter through the EMERGENCY ENTRANCE DOORS if arriving prior to 8 AM or you are in need of awheelchair. If arriving after 8 AM, enter through the FRONT ENTRANCE DOORS and follow the martin to your right until you reach the registration. Bring your Photo ID and Insurance card. After you are checked in, Registration will direct you to the elevator which will take you to Day Surgery located onthe 4th floor. Please call Pre-Surgical Testing, if you have any questions or concerns regarding Pre- Surgical instructions- Sunday thru Sunday, 08:30- 4 pm IF YOU EXPERIENCE SIGNS OR SYMPTOMS OF ILLNESS PRIOR TO YOUR SCHEDULED PROCEDURE OR IF YOU CAN'T KEEP YOUR APPOINTMENT, PLEASE CALL YOUR PROCEDURAL DOCTOR'S OFFICE. DO NOT CALL PRE- SURGICAL TESTING. Thank you for selecting [facility] ([facility]) for your procedure.We know you have a choice for your healthcare and we are pleased to provide you with this service. Our [place] [facility] is to: Serve with the Greatest Care and Love . We are not employees of [facility], we are [place] [employer] driven to provide care based on our [place], Vision and Values. Please do not hesitate to let us know if you have any questions or concerns. May God Bless you and we look forward to serving you. Your Perioperative Team. documented in this encounter Plan of Treatment Upcoming Encounters Date Type Department Care Team (Late st Contact Info) Description 02/25/2025 11:00 AM CDT Clinical Support [facility] UROLOGY [address] [place] [address] Nurse[place] Urology 03/02/2025 8:40 AM CDT Office Visit [facility] Medical Group - Family Medicine [facility] #2 [place] [address] Elva Olivares, DO 2 [facility] [facility] [address] [place] [address] 03/03/2025 1:30 PM CDT [facility] 1 [facility] [place] [place] [address] Cabrera Yadav MD #[address] [address] Discharge Disposition: Discharged to home or Selfcare 03/24/2025 11:00 AM CDT [facility] 1 [place] [address] Elva Olivares, DO 2 [facility] [address] [place] [address] Discharge Disposition: Discharged to home or Selfcare 03/24/2025 12:15 PM CDT [facility] 1 [facility] [place] [place] [address] Elva Olivares, DO 2 [facility] [address] [place] [address] documented as of this encounter Visit Diagnoses Not on filedocumented in this encounter Additional Health Concerns Assessment Noted Time PHQ-9 Depression Total Score: 0 08/15/20 21 10:00 AM CDT documented as of this encounter Care Teams Assistant Controller Relationship Specialty Start Date End Date Elva Olivares DO 2 [facility]. [address] [place] [address] PCP - General Family Medicine 07/01/24 Cabrera Yadav MD #2 [facility] [address] [place] [address] Consulting Physician Urology 11/07/24 documented as of this encounter
--- OUTSIDE RECORDS SUMMARY | 2025-02-24 19:02 | XMS_ITS | Encounter Summary ---
Author Organization [facility] Address [address] [place] [address] Phone Care Team Providers Care Otolaryngology Teacher Name Role Phone Victoriano Reid MD Primary Care Provider [phone] Malissa Joe RN Unavailable Unavailable Malissa Joe RN Unavailable Unavailable Elva Olivares DO Primary Care Provider [phone] [place] RN PROGRESSIVE CARE UNIT Unavailable Cabrera Smallwood MD Unavailable [phone] Reason for Visit * Reason Comments Medication Refill Encounter Details Date Type Department Care Team (Late st Contact Info) Description 07/24/2023 Refill [facility] Family Medicine [facility] #2 [place] [address] Victoriano Reid MD #1 [place] [address] Medication Refill Social History Tobacco Use Types [...] Dept 03/29/23 Office Visit [facility] 09/19/22 Office Visit [facility] [place] Showing recent visits within past 365 days and meeting all other requirements Future Appointments Date Type Provider Dept 10/01/23 Appointment [facility] [place] Showing future appointments within next 90 days and meeting all other requirements documented in this encounter Plan of Treatment Upcoming Encounters Date Type Department Care Team (Late st Contact Info) Description 02/25/2025 11:00 AM CDT Clinical Support [facility] UR[facility]Y #2 [place] [address] NurseKen Urology 03/02/2025 8:40 AM CDT [facility] - [place] #[address] [place] [address] Elva Olivares, DO 2 [facility]. [address] [place] [address] 03/03/2025 1:30 PM CDT [facility] 1 [facility] [place] [address] Cabrera Yadav MD #2 [facility] [address] [place] [address] Discharge Disposition: Discharged to home or Selfcare 03/24/2025 11:00 AM CDT [facility] 1 [place] [address] Elva Olivares, 2 [facility] [address] [place] [address] Discharge Disposition: Discharged to home or Selfcare 03/24/2025 12:15 PM CDT [facility] 1 [place] [address] Elva Olivares, DO 2 [facility] [address] [place] [address] documented as of this encounter Visit Diagnoses Diagnosis Muscle spasm Spasm of muscle documented in this encounter Additional Health Concerns Assessment Noted Time PHQ-9 Depression Total Score: 0 08/15/20 21 10:00 AM CDT documented as of this encounter Care Teams Otolaryngology Teacher Relationship Specialty Start Date End Date Victoriano Reid MD PCP - General Family Medicine 06/19/19 06/29/24 Elva Olivares DO 2 [facility] [address] [place] [address] PCP - General Family Medicine 07/01/24 Malissa Joe, RN [place] Nurse Plasterer Helper 12/03/23 12/03/23 Malissa Joe, RN [place] Nurse Plasterer Helper 12/05/23 12/05/23 [place], RN PROGRESSIVE CARE UNIT [place] Vibrating Screed Operator Plasterer Helper 11/03/24 Cabrera Yadav MD #[address] [address] Consulting Physician Urology 11/07/24 documented as of this encounter
--- OUTSIDE RECORDS SUMMARY | 2025-02-24 19:02 | XMS_ITS | Encounter Summary ---
Author Organization [facility] Address [address] [place] [address] Phone Care Team Providers Care Technical Producer Name Role Phone Victoriano Reid MD Primary Care Provider [phone] Malissa Joe RN Unavailable Unavailable Malissa Joe RN Unavailable Unavailable Elva Olivares DO Primary Care Provider [phone] [place] YOUTH CARE SPECIALIST Unavailable Cabrera Smallwood MD Unavailable [phone] Reason for Visit * Reason Comments Medication Refill Encounter Details Date Type Department Care Team (Late st Contact Info) Description 09/21/2023 Refill [facility] #2 [place] [address] Victoriano Reid MD #1 [place] [address] Medication Refill Social History Tobacco Use Types [...] Dept 03/29/23 Office Visit Victoriano Reid MD [facility] [place] Showing recent visits within past 365 days and meeting all other requirements Future Appointments Date Type Provider Dept 10/01/23 Appointment Victoriano Reid MD [facility] [place] Showing future appointments within next 90 days and meeting all other requirements [place] SPECIAL EVENT ASSOCIATE documented in this encounter Plan of Treatment Upcoming Encounters Date Type Department Care Team (Late st Contact Info) Description 02/25/2025 11:00 AM CDT Clinical Support [facility] UROLOGY #2 [place] [address] NurseKen Urology 03/02/2025 8:40 AM CDT Office Visit [facility] Medical Group - Family Medicine - [place] #2 [place] [address] Elva Olivares, DO 2 [facility] [address] [place] [address] 03/03/2025 1:30 PM CDT [facility] 1 [place] [address] Cabrera Yadav MD #[address] [address] Discharge Disposition: Discharged to home or Selfcare 03/24/2025 11:00 AM CDT [facility] Ul[facility] 1 [place] [address] Elva Olivares, DO 2 [facility] [address] [place] [address] Discharge Disposition: Discharged to home or Selfcare 03/24/2025 12:15 PM CDT Appointment [facility] Mammography 1 [facility] [place] [address] Elva Olivares DO [address] [facility] [address] [place] [address] documented as of this encounter Visit Diagnoses Diagnosis Allergic rhinitis, unspecified seasonality, unspecified trigger Neurogenic bladder Neurogenic bladder, NOS Painful bladder spasm Other symptoms involving urinary system documented in this encounter Additional Health Concerns Assessment Noted Time PHQ-9 Depression Total Score: 0 08/15/20 21 10:00 AM CDT documented as of this encounter Care Teams Technical Producer Relationship Specialty Start Date End Date Victoriano Reid MD PCP - General Family Medicine 06/19/19 06/29/24 Elva Olivares DO 2 [facility] [address] [place] [address] PCP - General Family Medicine 07/01/24 Malissa Joe, DONYA [place] Nurse Continuous Towel Roller 12/03/23 12/03/23 Malissa Joe RN [place] Nurse Continuous Towel Roller 12/05/23 12/05/23 [place], [facility] [place] Electronic Scanner Operator Continuous Towel Roller 11/03/24 Cabrera Yadav MD #[address] [address] Consulting Physician Urology 11/07/24 documented as of this encounter
--- OUTSIDE RECORDS SUMMARY | 2025-02-24 19:02 | XMS_ITS | Encounter Summary ---
Author Organization [facility] Address [address] [place] [address] Phone Care Team Providers Care Instrument Setter Name Role Phone Victoriano Reid MD Primary Care Provider Malissa Joe RN Unavailable Unavailable Malissa Joe RN Unavailable Unavailable Elva Olivares DO Primary Care Provider [phone] [place] GENERAL MANAGER Unavailable Cabrera Smallwood MD Unavailable [phone] Reason for Visit * Reason Comments Medication Refill Encounter Details Date Type Department Care Team (Late st Contact Info) Description 10/24/2022 Refill [facility] Family [facility] #2 [place] [address] Victoriano Reid MD #1 [place] [address] Medication Refill Social History Tobacco Use Types [...] Yara Peacock RN - 10/24/2022 9:51 AM DELIVERY DRIVER/CUSTOMER SERVICE Per nursing clinical judgement, provider to review and approve the medication(s) order(s) if appropriate. Requested Prescriptions Pending Prescriptions Disp Refills ergocalciferol (VITAMIN D) [address]81 UNIT Capsule [Pharmacy Med Name: VITAMIN D2 50,000IU (ERGO) CAP RX] 12 Capsule 3 Sig: TAKE ONE CAPSULE BY MOUTH ONCE A WEEK ON SUNDAY Vitamin Supplements (Adult) Protocol Passed - 10/24/2022 9:40 AM Passed - Visit with relevant provider in past 12 months or upcoming 90 days Recent Visits Date Type Provider Dept 09/19/22 Office Visit Victoriano Reid MD [facility] 01/05/22 [facility] recent visits within past 365 days and meeting all other requirements Future Appointments No visits were found meeting these conditions. Showing future appointments within next 90 days and meeting all other requirements Passed - Vitamin D less than 1.25mg VERY DRIVER/CUSTOMER SERVICE documented in this encounter Plan of Treatment Upcoming Encounters Date Type Department Care Team (Late st Contact Info) Description 02/25/2025 11:00 AM CDT Clinical Support [facility] #2 [place] [address] NurseKen Urology 03/02/2025 8:40 AM CDT Office [facility] - Family Medicine - [place] #2 [place] [address] Elva Olivares, DO 2 [facility]. [address] [place] [address] 03/03/2025 1:30 PM CD[facility] 1 [place] [address] Cabrera Yadav MD #[address] [address] Discharge Disposition: Discharged to home or Selfcare 03/24/2025 11:00 AM CDT [facility] Ul[facility] 1 [place] [address] Elva Olivares, DO 2 [facility] [address] [place] [address] Discharge Disposition: Discharged to home or Selfcare 03/24/2025 12:15 PM CDT [facility] 1 [place] [address] Elva Olivares, DO [address] [address] documented as of this encounter Visit Diagnoses Diagnosis Vitamin D deficiency Unspecified vitamin D deficiency documented in this encounter Additional Health Concerns Assessment Noted Time PHQ-9 Depression Total Score: 0 08/15/20 21 10:00 AM CDT documented as of this encounter Care Teams Instrument Setter Relationship Specialty Start Date End Date Victoriano Reid MD PCP - General Family Medicine 06/19/19 06/29/24 Elva Olivares DO [address] [address] PCP - General Family Medicine 07/01/24 Malissa Joe, RN [place] Nurse Emergency Services Dispatcher 12/03/23 12/03/23 Malissa Joe, RN [place] Nurse Emergency Services Dispatcher 12/05/23 12/05/23 [place], GENERAL MANAGER [place] Clearing Supervisor Emergency Services Dispatcher 11/03/24 Cabrera Yadav MD #[address] [address] Consulting Physician Urology 11/07/24 documented as of this encounter
--- OUTSIDE RECORDS SUMMARY | 2025-02-24 19:02 | XMS_ITS | Encounter Summary ---
Author Organization [facility] Address [address] [place] [address] Phone Care Team Providers Care Anode Adjuster Name Role Phone Victoriano Reid MD Primary Care Provider [phone] Malissa Joe RN Unavailable Unavailable Malissa Joe RN Unavailable Unavailable Elva Olivares DO Primary Care Provider [phone] [place] [facility] Unavailable Cabrera Smallwood MD Unavailable [phone] Reason for Visit * Reason Comments Medication Refill Encounter Details Date Type Department Care Team (Late st Contact Info) Description 10/21/2023 Refill [facility] Medical Group - Family Medicine [facility] [address] [place] [address] Victoriano Reid MD [address]1 [place] [address] Medication Refill Social History Tobacco Use Types Packs/Day Years Used Date Smoking Tobacco: Every Day Cigarettes Smokeless Tobacco: Never Alcohol Use Standard Drinks/Week Comments Not Currently 0 (1 standard drink = 0.6 oz pur e alcohol) [facility] Utilities Answer Date Recorded In [...] often do you attend chur ch or rastafari services? Never 10/22/2023 Do you belong to [...] Score - Questions 1-9 0 12/14 [facility] - Occupational [...] to sleep or slept in a senior living (including now)? No 10/22/2023 Education Answer Date [...] of Assessment Author 0 10/22/2023 10:19 PM DIE SINKER [employer], System Background * Q1: How often do you have a drink containing alcohol? Answer Date of Assessment Author Never 10/22/2023 10:19 PM DIE SINKER [employer], System Background * Q2: How many drinks containing alcohol do you have on a typical day when you are drinking? Answer Date of Assessment Author Patient does not drink 10/22/2023 10:19 PM DIE SINKER [employer], System Background * Q3: How often do you have six or more drinks on one occasion? Answer Date of Assessment Author Never 10/22/2023 10:19 PM DIE SINKER [employer], System Background documented as of this encounter Miscellaneous Notes * Telephone Encounter - Adelaida Medina RN - 10/21/2023 5:45 PM DIE SINKER Medication failed the protocol, provider to review [...] Dept 03/29/23 Office Visit Victoriano Reid MD [facility] Showing recent visits within past 365 days and meeting all other requirements Future Appointments Date Type Provider Dept 10/23/23 Appointment Miriam Prasad, BEACH EXPERT, CMM TECHNICIAN [facility] 12/21/23 Appointment Victoriano Reid MD [facility] Showing future appointments within next 90 days and meeting all other requirements SINKER documented in this encounter Plan of Treatment Upcoming Encounters Date Type Department Care Team (Late st Contact Info) Description 02/25/2025 11:00 AM CDT Clinical Support [facility] UROLOGY #2 [place] [address] Nurse, [facility] 03/02/2025 8:40 AM CDT Office Visit [facility] Medical Group - Family Medicine - [place] [address] [place] [address] Elva Olivares, DO 2 [facility]. [address] [place] [address] 03/03/2025 1:30 PM CDT [facility] [address] [place] [address] Cabrera Yadav MD #2 [facility] [address] [place] [address] Discharge Disposition: Discharged to home or Selfcare 03/24/2025 11:00 AM CDT [facility] 1 [place] [address] Elva Olivares, DO [address] [address] Discharge Disposition: Discharged to home or Selfcare 03/24/2025 12:15 PM CDT Appointment [facility] Mammography [address] [place] [address] Elva Olivares, DO [address] [address] documented as of this encounter Visit Diagnoses Diagnosis Neurogenic bladder Neurogenic bladder, NOS 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) documented in this encounter Additional Health Concerns Assessment Noted Time PHQ-9 Depression Total Score: 0 08/15/20 21 10:00 AM CDT documented as of this encounter Care Teams Anode Adjuster Relationship Specialty Start Date End Date Victoriano Reid MD PCP - General Family Medicine 06/19/19 06/29/24 Elva Olivares DO [address] [address] PCP - General Family Medicine 07/01/24 Malissa Joe, RN [place] Nurse Hand Bander 12/03/23 12/03/23 Malissa Joe, RN [place] Nurse Hand Bander 12/05/23 12/05/23 [place], DEPUTY GENERAL COUNSEL [place] Equipment Detailer Hand Bander 11/03/24 Cabrera Yadav MD #[address] [address] Consulting Physician Urology 11/07/24 documented as of this encounter
--- OUTSIDE RECORDS SUMMARY | 2025-02-24 19:02 | XMS_ITS | Referral Summary ---
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 -TTE shows grade 1 diastolic dysfunction and normal LVEF - starting [facility] inpatient today Assessment & Plan (03/11/2019 [...] diastolic dysfunction and normal LVEF - starting [facility] inpatient tomorrow Vitamin D deficiency 03/03/2019 [...] Discharge plans for acute inpatient rehab at [facility]. - No weight bearing restrictions, but [...] Discharge plans for acute inpatient rehab at [facility]. - No weight bearing restrictions, but [...] certainly need placement for aggressive PT/OT. [place] pending. - No weight bearing restrictions, [...] certainly need placement for aggressive PT/OT. [place]. - No weight bearing restrictions, [...] certainly need placement for aggressive PT/OT. [place]. - No weight bearing restrictions, [...] certainly need placement for aggressive PT/OT. [place]. - No weight bearing restrictions, [...] today, please call Janice Adams NP at [phone]. If after hours, please contact the Diabetes Fellow at [phone]. Assessment & Plan (03/14/2019 10:32 AM CDT): [...] today, please call Crista Montgomery NP at [phone]. If after hours, please contact the Diabetes Fellow at [phone]. Assessment & Plan (03/12/2019 10:31 AM CDT): [...] today, please call Janice Adams NP at [phone]. If after hours, please contact the Diabetes Fellow at [phone]. Assessment & Plan (03/05/2019 6:21 PM CDT): [...] after the previous Dexamethasone wears off -monitor [facility] Patient has been seen by CDE. [...] were discussed with the primary team. Call [phone] with questions on day of service only. If after hours or weekends, please contact the Diabetes Fellow at [phone], option #1 Assessment & Plan (02/28/2019 12:17 [...] were discussed with the primary team. Call [phone] with questions on day of service only. If after hours or weekends, please contact the Diabetes Fellow at [phone], option #1 Assessment & Plan (02/26/2019 4:31 [...] today, please call Crista Montgomery NP at [phone]. If after hours, please contact the Diabetes Fellow at [phone]. Assessment & Plan (02/24/2019 10:05 AM CDT): -New diagnosis. A1c 8.9 -LDSSI. DM educator c/s, cafeteria cook -Monitor BG with decadron Resolved Problems Problem [...] -TTE (04/16) with EF 74%, mild TR, CO; G1DD, normal RV size and function. -if [...] Comments Blood Pressure 111/76 09/03/2019 12:16 PM FINISH PRODUCTION MANAGER Pulse 81 09/03/2019 12:16 PM FINISH PRODUCTION MANAGER Temperature 36.4 C (97.5 F) 09/03/2019 12:16 PM FINISH PRODUCTION MANAGER Respiratory Rate 16 09/03/2019 12:1 6 PM FINISH PRODUCTION MANAGER Oxygen Saturation 100% 09/03/2019 12: 16 PM FINISH PRODUCTION MANAGER Inhaled Oxygen Concentration - - Weight 79.8 kg (176 lb) 09/03/2019 12:1 6 PM FINISH PRODUCTION MANAGER weight -verbal per patient Height 165.1 cm (5' 5 ) 09/03/2019 12:1 6 PM FINISH PRODUCTION MANAGER Body Mass Index 29.29 09/03/2019 12:16 PM FINISH PRODUCTION MANAGER Plan of Treatment Not on file Medical Devices Implanted Type Area Safety Pin Assembling Machine Operator Device Identifier Shelf Expiration Date Model / Serial / Lot Depuy Spine [id number] 5.5mm 1 Inner Spine Screw Set Titanium Nonsterile Viper - [id number] Implanted:Qty: 8 on 02/24/2019 by Edelmira Pimentel MD at [facility] Screw N/A: Spine Lumbar Depuy Spine [id number] / / Depuy Synthes Spine [id number] Viper Prime Od5 Mm L45 Mm Fix Polyaxial Fenestrate Extend Tab Spine Cortical Screw Bone Nonsterile 5.5 Mm Dav - [id number] Implanted:Qty: 2 on 02/24/2019 by Edelmira Pimentel MD at [facility] Screw N/A: Spine Lumbar Depuy Synthes Spine [id number] / / Depuy Synthes Spine [id number] Viper Prime Od6 Mm L40 Mm Fix Polyaxial Fenestrate Extend Tab Spine Cortical Screw Bone Nonsterile 5.5 Mm Dav - [id number] Implanted:Qty: 2 on 02/24/2019 by Edelmira Pimentel MD at [facility] Screw N/A: Spine Lumbar Depuy Synthes Spine [id number] / / Depuy Synthes Spine [id number] Viper Prime Od6 Mm L45 Mm Fix Polyaxial Fenestrate Extend Tab Spine Cortical Screw Bone Nonsterile 5.5 Mm Dav - [id number] Implanted:Qty: 4 on 02/24/2019 by Edelmira Pimentel MD at [facility] N/A: Spine Lumbar Depuy Synthes Spine [id number] / / Ti Mis Depuy Viper Kypho Dav Implanted:Qty: 2 on 02/24/2019 by Edelmira Pimentel MD at [facility] N/A: Spine Lumbar Depuy Spine [id number] / / Angio Dynamics [id number] Xcela 8fr 1.6mm 1 Lumen Power Injectable Attach Catheter Fill - [id number] Implanted:Qty: 1 on 04/29/2019 at [facility] Angio Dynamics 02/17/2024 [id number] / / [id number] Procedures Procedure Name Priority Date/Time Associated Diagnosis [...] and children were not included. (Diabetes Care 31:3388-3037, 2008). The eAG is not equivalent to a fasting glucose. Blood specimen (specimen) 06/13/2019 12:08 PM CDT 06/13/2019 12:23 PM CDT Rashaun Peoples MD LAB BLOOD ORDERABLES Final R esult [facility] [address] [place] [address] * (ABNORMAL) Lipid panel (04/15/2019 2:17 AM CDT) Cholesterol 95 30 - 199 mg/dL [facility] Comment: Interpretive Data Ages < or = [...] on 2018. Triglycerides 59 <=149 mg/dL [facility] Comment: Interpretive Data Ages < or = [...] revised on 2018. HDL 30(L) >=40 mg/dL [facility] Comment: Interpretive Data Ages < or = [...] on 2018. LDL, calculated 53 <=129 mg/dL [facility] Comment: Interpretive Data Ages < or = [...] revised on 2018. Non-HDL Cholesterol 65 mg/dL [facility] Comment: Interpretive Data Ages < or = [...] last revised on 2018. Chol/HDL ratio 3 [facility] Blood specimen (specimen) 04/15/2019 2:17 AM CDT 04/15/2019 3:00 AM CDT us Rashaun Rafi Richelle MD LAB BLOOD ORDERABLES Final R esult Performing Organization Address City/[facility]/ZIP Co de Phone Number [facility] [employer] [place] [address] * Hepatitis panel, acute (03/05/2019 8:26 PM CDT) Hep A IgM Nonreactive Nonreactive [facility] Comment: Interpretive Data If test is reported as GRAYZONE, new sample should be drawn in two weeks for testing. Current interpretive data was last revised on 2016. Hep B core IgM Nonreactive Nonreactive [facility] Comment: Interpretive Data If test is reported as GRAYZONE, new sample should be drawn for testing. Current interpretive data was last revised on 2016. Hep C Ab Nonreactive Nonreactive [facility] Comment: Interpretive Data Positive results should be confirmed by a molecular method. If positive, a second separately collected sample should be submitted for Hepatitis C Virus (HCV) RNA Detection and Quantitation by Real-Time Reverse Shoe Maker-PCR (RT-PCR). Current interpretive data was last revised on 2016. HepBsAg Nonreactive Nonreactive [facility] Blood specimen (specimen) 03/05/2019 8:26 PM CDT 03/05/2019 8:41 PM CDT Narrative [facility] - 03/06/2019 12:32 PM CDT Meng Ulrich MD LAB MICROBIOLOGY - GENERAL OR DERABLES Edited Result - Final [facility] [place] [address] from Last 3 Months or Most Recently Relevant to Health Maintenance [place] [address] [place] [address] Advance Directives For more information, please contact: [phone] Documents on File Type Date Recorded Patient User Interface Engineer Expl anation ADVANCE DIRECTIVE 05/03/2019 1:58 PM POWER OF LEAD PAINTER-MEDICAL ADVANCE DIRECTIVE 05/02/2019 5:43 AM POWER OF LEAD PAINTER-MEDICAL ADVANCE DIRECTIVE 04/30/2019 3:45 PM ADVANCE DIRECTIVE 04/27/2019 1:33 PM POWER OF LEAD PAINTER-MEDICAL * Full Code (Latest Code Status on [...] 9:21 PM 03/14/2019 6:56 PM Care Teams Auto Machinist Relationship Specialty Start Date End Date Victoriano Reid MD PCP - General Family Medicine 06/20/19 Rashaun Peoples MD [address] [facility] [address] [place] [address] Medical Oncologist/[facility] [place] Medical Oncology 08/07/19 Edelmira Pimentel MD [address] [facility] [address] [place] [address] Surgeon Orthopedic Surgery 09/01/19
--- OUTSIDE RECORDS SUMMARY | 2025-02-24 19:02 | XMS_ITS | Encounter Summary ---
Author Organization [facility] Address [address] [place] [address] Phone Care Team Providers Care Vacuum Cleaner Mechanic Name Role Phone Victoriano Reid MD Primary Care Provider [phone] Malissa Joe RN Unavailable Unavailable Malissa Joe RN Unavailable Unavailable Elva Olivares DO Primary Care Provider [phone] [place] PROTECTION MANAGER Unavailable Unaabdirizaki Cabrera Dodge MD Unavailable [phone] Encounter Details Date Type Department Care Team (Late st Contact Info) Description 09/07/2020 Lab Requisition [facility] Laboratory Services 1 [place] [address] Victoriano Reid MD #1 [place] [address] Neuromuscular dysfunction of bladder, unspecified; Urinary tract [...] Description 02/25/2025 11:00 AM CDT Clinical Support [facility] PHYSICIAN [facility] UROLOGY #[address] [place] [address] Nurse, Ken Urology 03/02/2025 8:40 AM CDT Office Visit [facility] - Family [facility] [address] [place] [address] Elva Olivares, DO 2 [facility] [address] [place] [address] 03/03/2025 1:30 PM CDT Appointment [facility] 1 [facility] [place] [address] Cabrera Yadav MD #[address] [address] Discharge Disposition: Discharged to home or Selfcare 03/24/2025 11:00 AM CDT Appointment [facility] Ultrasound 1 [facility] [place] [address] Elva Olivares, DO 2 [facility] [address] [place] [address] Discharge Disposition: Discharged to home or Selfcare 03/24/2025 12:15 PM CDT Appointment [facility] Mammography 1 [facility] [place] [address] Elva Olivares, DO 2 [facility] [address] [place] [address] documented as of this encounter Procedures Procedure Name Priority Date/Time Associated Diagnosis Comments CULTURE, URINE Routine 09/07/2020 5:00 PM COSMETOLOGIST Neuromuscular dysfunction of bladder, unspecified Urinary tract infection, site not specified Personal history of urinary (tract) infections documented in this encounter Results * CULTURE, URINE (09/07/2020 5:00 PM COSMETOLOGIST) CULTURE RESULTS STAPHYLOCOCCUS AUREUS 09/11/2020 6:33 AM COSMETOLOGIST [facility] CULTURE RESULTS ALSO MIXED GROWTH OF DISTAL URETHRA CONTAMINANTS. 09/11/2020 6:33 AM [facility]OLOGIST [facility] Culture URINE SPECIMEN / Unknown No Phlebotomy Charged / Unknown 09/07/2020 5:00 PM COSMETOLOGIST 09/07/2020 5:39 PM COSMETOLOGIST Narrative Organism Antibiotic Method Susceptibility Staphylococcus aureus [...] MICROBIOLOGY - GENERAL ORDERABLE S Final Result Performing Organization Address City/State/[facility] Co de Phone Number [facility] [address] [place] [address], documented in this encounter Visit Diagnoses Diagnosis Neuromuscular dysfunction of bladder, unspecified Urinary tract infection, site not specified Personal history of urinary (tract) infections documented in this encounter Additional Health Concerns Infection Onset Date Last Indicated Resolved Time 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 06/05/2019 04/15/2021 7:28 AM CDT Assessment Noted Time PHQ-9 Depression Total Score: 0 10/24/19 20 11:16 AM COSMETOLOGIST documented as of this encounter Care Teams Vacuum Cleaner Mechanic Relationship Specialty Start Date End Date Victoriano Reid MD PCP - General Family Medicine 06/19/19 06/29/24 Elva Olivares DO 2 Magda M[facility] [facility] [address] [place] [address] PCP - General Family Medicine 07/01/24 Malissa Joe, RN [place] Nurse Lighting Engineering Technician 12/03/23 12/03/23 Malissa Joe RN [place] Nurse Lighting Engineering Technician 12/05/23 12/05/23 [place] [employer] Control Board Operator Lighting Engineering Technician 11/03/24 Cabrera Yadav MD #2 SHANELLE MCMILL[address] [facility] [address] [place] [address] Consulting Physician Urology 11/07/24 documented as of this encounter
--- OUTSIDE RECORDS SUMMARY | 2025-02-24 19:02 | XMS_ITS | Encounter Summary ---
Author Organization [facility] Address [address] [facility] [place] [address] Phone Care Team Providers Care Filler And Trimmer Name Role Phone Victoriano Reid MD Primary Care Provider [phone] Malissa Joe RN Unavailable Unavailable Malissa Joe RN Unavailable Unavailable Elva Olivares DO Primary Care Provider [phone] [place] ASSOCIATE PROFESSOR OF COUNSELING Unavailable Unaabdirizaki Cabrera Dodge MD Unavailable [phone] Encounter Details Date Type Department Care Team (Late st Contact Info) Description 03/29/[address] [facility] Laboratory Services [address] [place] [address] Victoriano Reid MD #1 [place] [address] Acute cystitis without hematuria; Neuromuscular dysfunction of [...] 11:00 AM CDT Clinical Support [facility] PHYSICIAN [facility] UROLOGY #2 [place] [address] Nurse Ken Urology 03/02/2025 8:40 AM CDT Office Visit [facility] - Family Medicine - [place] [address] [place] [address] Elva Olivares, DO 2 [facility] [address] [place] [address] 03/03/2025 1:30 PM CDT [facility] [address] [place] [address] Cabrera Yadav MD #[address] [address] Discharge Disposition: Discharged to home or Selfcare 03/24/2025 11:00 AM CDT [facility] Ul[facility] [address] [place] [address] Elva Olivares, DO 2 [facility] [address] [place] [address] Discharge Disposition: Discharged to home or Selfcare 03/24/2025 12:15 PM CDT [facility] Mamm[facility] [address] [place] [address] Elva Olivares, DO 2 [facility] [address] [place] [address] documented as of this encounter Procedures Procedure [...] S, COAGULASE NEGATIVE 03/30/2021 8:24 PM CDT [facility] Comment:NO FURTHER WORKUP PE RFORMED Culture No Phlebotomy Charged / Unknown 03/29/2021 11:30 AM CDT 03/29/2021 1:04 PM CDT us Victoriano Reid MD MICROBIOLOGY - GENERAL ORDERABLE S Final Result [facility] [address] [place] [id number], * (ABNORMAL) URINALYSIS REFLEX IF INDICATED BY ABNORMAL RESULTS (03/29/2021 11:30 AM CDT) SPECIFIC GRAVITY 1.010 1.003 - 1.030 03/29/2021 1:31 PM CDT [facility] UR[facility] PH 8.0 5.0 - 9.0 03/29/2021 1:31 PM CDT [facility] WBC ESTERASE 500 /uL(A) Negative 03/29/2021 1:31 PM CDT [facility] NITRITE Positive(A) Negative 03/29/2021 1:31 PM CDT [facility] PROTEIN, RANDOM URINE 100 mg/dL(A) Negative 03/29/2021 1:31 PM CDT [facility] URINE GLUCOSE, QUAL Negative Negative 03/29/2021 1:31 PM CDT [facility] URINE KETONES Negative Negative 03/29/2021 1:31 PM CDT [facility] UROBILINOGEN Normal Normal mg/dL 03/29/2021 1:31 PM CDT [facility] URINE BILIRUBIN Negative Negative 1:31 PM CDT [facility] URINE BLOOD 250 /uL(A) Negative josefa/ul 03/29/2021 1:31 PM CDT [facility] URINALYSIS COLOR Yellow 03/29/2021 1:31 PM CDT [facility] URINALYSIS CLARITY Slightly Cloudy 03/29/2021 1:31 PM CDT [facility] WBC (Urine) 6-10(A) Negative, 0-5 /hpf 03/29/2021 1:31 PM CDT [facility] URINE RBC'S 21-50(A) Negative, 0-2 /hpf 03/29/2021 1:31 PM CDT [facility] EPITHELIAL CELLS Occasional /lpf 03/29/2021 1:31 PM CDT [facility] BACTERIA, URINE Few(A) Negative /hpf 03/29/2021 1:31 PM CDT [facility] CRYSTALS Triple phosphate 03/29/2021 1:31 PM CDT [facility] Urine Non-Phlebotomy Collection / Unknown 03/29/2021 11:30 AM CDT 03/29/2021 1:04 PM CDT us Victoriano Reid MD URINE ORDERABLES Final Result [facility] LAB #1 [place] [address] documented in this encounter Visit Diagnoses Diagnosis Acute cystitis without hematuria Acute cystitis Neuromuscular dysfunction of bladder, unspecified documented in this encounter Additional Health Concerns Infection Onset Date Last Indicated Resolved Time 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 06/05/2019 04/15/2021 7:28 AM CDT Assessment Noted Time PHQ-9 Depression Total Score: 0 10/24/19 20 11:16 AM CORROSION PREVENTION METAL SPRAYER documented as of this encounter Care Teams Filler And Trimmer Relationship Specialty Start Date End Date Victoriano Reid MD PCP - General Family Medicine 06/19/19 06/29/24 Elva Olivares DO 2 [facility] [address] [place] [address] PCP - General Family Medicine 07/01/24 Malissa Joe, RN [place] Nurse Facility Attendant 12/03/23 12/03/23 Malissa Joe, RN [place] Nurse Facility Attendant 12/05/23 12/05/23 [place], [facility] Audiovisual Tech Facility Attendant 11/03/24 Cabrera Yadav MD #2 [facility] [address] [place] [address] Consulting Physician Urology 11/07/24 documented as of this encounter
--- OUTSIDE RECORDS SUMMARY | 2025-02-24 19:02 | XMS_ITS | Encounter Summary ---
Author Organization [facility] Address [address] [place] [address] Phone Care Team Providers Care Dishcloth Folder Name Role Phone Victoriano Reid MD Primary Care Provider [phone] Malissa Joe RN Unavailable Unavailable Malissa Joe RN Unavailable Unavailable Elva Olivares DO Primary Care Provider [phone] [place] SIDE STAPLER Unavailable Unaabdirizaki Cabrera Dodge MD Unavailable [phone] Encounter Details Date Type Department Care Team (Late st Contact Info) Description 10/17/2022 Lab Requisition [facility] Laboratory Services [address] [place] [id number] Victoriano Reid MD [address] [place] [address] Social History Tobacco Use Types Packs/Day Years [...] Coronavirus/COVID-19? No / Unsure 09/19/2022 9:13 AM HUMAN SERVICES CARE SPECIALIST documented as of this encounter Plan of Treatment Upcoming Encounters Date Type Department Care Team (Late st Contact Info) Description 02/25/2025 11:00 AM CDT Clinical Support [facility] PHYSICIAN [facility] UROLOGY #[address] [place] [address] Nurse, [place] [facility] 03/02/2025 8:40 AM CDT [facility] #2 [place] [address] Elva Olivares, DO 2 [facility] [address] [place] [address] 03/03/2025 1:30 PM CDT [facility] [address] [place] [address] Cabrera Yadav MD #[address] [address] Discharge Disposition: Discharged to home or Selfcare 03/24/2025 11:00 AM CDT [facility] [address] [place] [address] Elva Olivares, DO 2 [facility] [address] [place] [address] Discharge Disposition: Discharged to home or Selfcare 03/24/2025 12:15 PM CDT [facility]ment [facility] [address] [place] [phone] EliseElva gustafson, DO 2 Magda MEADOWS, MARY. [address] [place] [address] documented as of this encounter Procedures Procedure Name Priority Date/Time Associated Diagnosis Comments VITAMIN D, 25 HYDROXY TOTAL Routine 10/17/2022 11:44 AM HUMAN SERVICES CARE SPECIALIST HEMOGLOBIN A1C W/ ESTIMATED GLUCOSE Routine 10/17/2022 11:44 AM HUMAN SERVICES CARE SPECIALIST CBC WITH AUTO DIFFERENTIAL Routine 10/17/2022 11:44 AM HUMAN SERVICES CARE SPECIALIST VITAMIN B12 Routine 10/17/2022 11:44 AM HUMAN SERVICES CARE SPECIALIST UR MICROALBUMIN/CREATINI NE RATIO RANDOM Routine 10/17/2022 11:44 AM HUMAN SERVICES CARE SPECIALIST THYROXINE (T4) TOTAL Routine 10/17/2022 11:44 AM HUMAN SERVICES CARE SPECIALIST THYROID STIMULATING HORMONE (TSH) Routine 10/17/2022 11:44 AM HUMAN SERVICES CARE SPECIALIST LIPID PANEL Routine 10/17/2022 11:44 AM HUMAN SERVICES CARE SPECIALIST CMP (COMPREHENSIVE METABOLIC PANEL) Routine 10/17/2022 11:44 AM HUMAN SERVICES CARE SPECIALIST COMPLETE BLOOD COUNT (CBC) WITH DIFF Routine 10/17/2022 11:44 AM HUMAN SERVICES CARE SPECIALIST documented in this encounter Results * (ABNORMAL) CBC WITH AUTO DIFFERENTIAL (10/17/2022 11:44 AM HUMAN SERVICES CARE SPECIALIST) WBC 9.55 4.00 - 12.00 10(3)/mcL 10/17/2022 1:35 PM HUMAN SERVICES CARE SPECIALIST [facility] RBC 4.47 3.80 - 5.30 10(6)/mcL 10/17/2022 1:35 PM HUMAN SERVICES CARE SPECIALIST [facility] HEMOGLOBIN (HGB) 15.0 12.0 - 15.8 g/dL 10/17/2022 1:35 PM [facility] HEMATOCRIT (HCT) 45.0 36.0 - 47.0 % 10/17/2022 1:35 PM [facility] MCV 100.7(H) 82.0 - 96.0 fL 10/17/2022 1:35 PM [facility] MCH 33.6 26.0 - 34.0 pg 10/17/2022 1:35 PM [facility] MCHC 33.3 31.0 - 36.0 g/dL 10/17/2022 1:35 PM [facility] PLATELET COUNT 164 140 - 440 10(3)/[facility] 10/17/2022 1:35 PM [facility] RDW 14.3 11.8 - 15.5 % 10/17/2022 1:35 PM [facility] MPV 11.9 9.7 - 12.4 fL 10/17/2022 1:35 PM [facility] NEUTROPHILS 51.6 47.0 - 73.0 % 10/17/2022 1:35 PM [facility] LYMPHOCYTES 37.1 18.0 - 42.0 % 10/17/2022 1:35 PM [facility] MONOCYTES 6.8 4.0 - 12.0 % 10/17/2022 1:35 PM [facility] EOSINOPHILS 3.5 0.0 - 5.0 % 10/17/2022 1:35 PM [facility] BASOPHILS 1.0 0.0 - 1.0 % 10/17/2022 1:35 PM [facility] ABSOLUTE NEUTROPHILS 4.93 1.60 - 7.70 10(3)/mcL 10/17/2022 1:35 PM [facility] ABSOLUTE LYMPHOCYTES 3.54(H) 1.30 - 3.20 10(3)/mcL 10/17/2022 1:35 PM [facility] ABSOLUTE MONOCYTES 0.65 0.20 - 1.00 10(3)/mcL 10/17/2022 1:35 PM HUMAN SERVICES CARE SPECIALIST [facility] ABSOLUTE EOSINOPHIL 0.33 0.00 - 0.40 10(3)/mcL 10/17/2022 1:35 PM HUMAN SERVICES CARE SPECIALIST [facility] ABSOLUTE BASOPHILS 0.10 0.00 - 0.10 10(3)/mcL 10/17/2022 1:35 PM HUMAN SERVICES CARE SPECIALIST [facility] NRBC PER 100 WBC 0 10/17/19 1:35 PM HUMAN SERVICES CARE SPECIALIST [facility] Blood No Phlebotomy Charged / Unknown 10/17/2022 11:44 AM HUMAN SERVICES CARE SPECIALIST 10/17/2022 1:31 PM HUMAN SERVICES CARE SPECIALIST Victoriano Reid MD HEMATOLOGY ORDERABLES Final Resu lt Performing Organization Address [facility]/ZIP Co de Phone Number [facility] [address] [place] [address] * UR MICROALBUMIN/CREATININE RATIO RANDOM (10/17/2022 11:44 AM HUMAN SERVICES CARE SPECIALIST) Pathologist [facility] RAN UR MICROALBUMIN <=1.20 <=2.00 mg/dL 10/17/2022 2:35 PM HUMAN SERVICES CARE SPECIALIST [facility] CREATININE URINE 63.5 28.0 - 217.0 mg/dL 10/17/2022 2:35 PM HUMAN SERVICES CARE SPECIALIST [facility] ALB/CREAT RATIO 2:35 PM HUMAN SERVICES CARE SPECIALIST [facility] Comment:Unable to calculate Urine Non-Phlebotomy Collection / Unknown 10/17/2022 11:44 AM HUMAN SERVICES CARE SPECIALIST 10/17/2022 1:31 PM HUMAN SERVICES CARE SPECIALIST us Victoriano Reid MD URINE ORDERABLES Final Result Performing Organization Address City/[facility]/ZIP Co de Phone Number [facility] [address] [place] [address] * THYROID STIMULATING HORMONE (TSH) (10/17/2022 11:44 AM HUMAN SERVICES CARE SPECIALIST) Pathologist [facility] TSH 2.760 0.270 - 4.200 mIU/L 10/17/2022 2:33 PM HUMAN SERVICES CARE SPECIALIST [facility] Blood No Phlebotomy Charged / Unknown 10/17/2022 11:44 AM HUMAN SERVICES CARE SPECIALIST 10/17/2022 1:31 PM HUMAN SERVICES CARE SPECIALIST Victoriano Reid MD CHEMISTRY ORDERABLES Final Resul t Performing Organization Address [facility] Co de Phone Number [facility] [address] [place] [address] * (ABNORMAL) HEMOGLOBIN A1C W/ ESTIMATED GLUCOSE (10/17/2022 11:44 AM HUMAN SERVICES CARE SPECIALIST) HGB-A1C 6.3(H) 4.0 - 6.0 % 10/17/2022 2:17 PM HUMAN SERVICES CARE SPECIALIST [facility] Est Average Glucose 134.1 mg/dL 10/17/2022 2:17 PM HUMAN SERVICES CARE SPECIALIST [facility] Blood No Phlebotomy Charged / Unknown 10/17/2022 11:44 AM HUMAN SERVICES CARE SPECIALIST 10/17/2022 1:31 PM HUMAN SERVICES CARE SPECIALIST Narrative [facility] - 10/17/2022 2:17 PM HUMAN SERVICES CARE SPECIALIST HEMOGLOBIN A1C: DIABETIC PATIENTS: WELL-CONTROLLED: 6.2 - 7.0 INTERMEDIATE WELL-CONTROLLED: 7.0 - 9.0 POORLY-CONTROLLED: >9.0 Victoriano Reid MD CHEMISTRY ORDERABLES Final Resul t Performing Organization Address [facility] Co de Phone Number [facility] [address] [place] [address] * THYROXINE (T4) TOTAL (10/17/2022 11:44 AM HUMAN SERVICES CARE SPECIALIST) T4 9.2 4.5 - 12.0 mcg/dL 10/17/2022 2:33 PM HUMAN SERVICES CARE SPECIALIST [facility] Blood No Phlebotomy Charged / Unknown 10/17/2022 11:44 AM HUMAN SERVICES CARE SPECIALIST 10/17/2022 1:31 PM HUMAN SERVICES CARE SPECIALIST us Victoriano Reid MD CHEMISTRY ORDERABLES Final Resul t Performing Organization Address City/[facility]/ZIP Co de Phone Number [facility] [address] [place] [address] * VITAMIN D, 25 HYDROXY TOTAL (10/17/2022 11:44 AM HUMAN SERVICES CARE SPECIALIST) VITAMIN D, 25 HYDROX 67 >=30 ng/mL 10/17/2022 2:35 PM HUMAN SERVICES CARE SPECIALIST [facility] Blood No Phlebotomy Charged / Unknown 10/17/2022 11:44 AM HUMAN SERVICES CARE SPECIALIST 10/17/2022 1:31 PM HUMAN SERVICES CARE SPECIALIST Narrative [facility] - 10/17/2022 2:35 PM HUMAN SERVICES CARE SPECIALIST Published reference ranges for Vitamin D vary depending on time and place and method of testing, and on patient's age, sex, ethnicity and levels of other measured analytes such as parathormone, calcium and phosphorus. The result should be evaluated in conjunction with clinical findings and suspicions. [place] [employer] and [employer] Clinical Practice Guidelines: Status Vitamin D levels (ng/mL) Deficient <=20 At risk of inadequacy 21-29 Sufficient 30-100 Centers of Disease Control and Prevention Guidelines: Status Vitamin D levels (ng/mL) Deficient <13 At risk of inadequacy 13-19 Sufficient 20-50 Possibly harmful >50 References: [place] [employer], 2010 Dietary reference intakes for calcium and vitamin D. [place]: The National Academies Press. Nkechi M, Jasmin N, Nicholas TOLEDO, et al., Evaluation, treatment, and prevention of Vitamin D deficiency: an Endocrinology Clinical Practice Guideline. JCEM 2011 96: 7 5334-0771. Lawson A, Josue C, Glo D, et al., Vitamin D Status: [place], 3349-6121, AKHS data brief, no. 59, MD [place]: National Center for Health Statistics. 2011. us Victoriano Reid MD CHEMISTRY ORDERABLES Final Resul t [facility] [address] [place] [address] * VITAMIN B12 (10/17/2022 11:44 AM HUMAN SERVICES CARE SPECIALIST) VITAMIN B12 383 243 - 894 pg/mL 10/17/2022 2:34 PM HUMAN SERVICES CARE SPECIALIST [facility] Blood No Phlebotomy Charged / Unknown 10/17/2022 11:44 AM HUMAN SERVICES CARE SPECIALIST 10/17/2022 1:31 PM HUMAN SERVICES CARE SPECIALIST us Victoriano Reid MD CHEMISTRY ORDERABLES Final Resul t [facility] #[address] [place] [address] * LIPID PANEL (10/17/2022 11:44 AM HUMAN SERVICES CARE SPECIALIST) CHOLESTEROL 150 <=200 mg/dL 10/17/2022 2:33 PM HUMAN SERVICES CARE SPECIALIST [facility] TRIGLYCERIDES 114 <150 mg/dL 10/17/2022 2:33 PM HUMAN SERVICES CARE SPECIALIST [facility] HDL CHOLESTEROL 40.5 >40 mg/dL 2:33 PM HUMAN SERVICES CARE SPECIALIST [facility] LDL 87 5 - 130 mg/dL 10/17/2022 2:33 PM HUMAN SERVICES CARE SPECIALIST [facility] VLDL 23 5 - 55 mg/dL 10/17/2022 2:33 PM HUMAN SERVICES CARE SPECIALIST [facility] CHOL/HDL RATIO 3.7 0.0 - 4.4 10/17/2022 2:33 PM HUMAN SERVICES CARE SPECIALIST [facility] NON-HDL CHOLESTEROL 109.5 <130 mg/dL 10/17/2022 2:33 PM HUMAN SERVICES CARE SPECIALIST [facility] Blood No Phlebotomy Charged / Unknown 10/17/2022 11:44 AM HUMAN SERVICES CARE SPECIALIST 10/17/2022 1:31 PM HUMAN SERVICES CARE SPECIALIST us Victoriano Reid MD CHEMISTRY ORDERABLES Final Resul t [facility] #[address] [place] [address] * (ABNORMAL) CMP (COMPREHENSIVE METABOLIC PANEL) (10/17/2022 11:44 AM HUMAN SERVICES CARE SPECIALIST) SODIUM 140 136 - 144 mmol/L 10/17/2022 2:33 PM [facility] POTASSIUM 4.3 3.5 - 5.1 mmol/L 10/17/2022 2:33 PM [facility] CHLORIDE 104 100 - 110 mmol/L 10/17/2022 2:33 PM [facility] CO2, VENOUS 25 22 - 32 mmol/L 10/17/2022 2:33 PM [facility] ANION GAP 15.3 8.0 - 20.0 mmol/L 10/17/2022 2:33 PM [facility] GLUCOSE 137(H) 70 - 99 mg/dL 10/17/2022 2:33 PM [facility] BUN 17 8 - 23 mg/dL 10/17/2022 2:33 PM [facility] CREATININE, BLOOD 0.77 0.60 - 1.10 mg/dL 10/17/2022 2:33 PM [facility] BUN/CREATININE RATIO 22(H) 12 - 20 ratio 10/17/2022 2:33 PM [facility] TOTAL PROTEIN 6.9 6.0 - 8.3 g/dL 10/17/2022 2:33 PM [facility] ALBUMIN 4.0 3.5 - 5.2 g/dL 10/17/2022 2:33 PM [facility] Comment: The colormetric methods used for the determination of Albumin may lead to falsely elevated test results in patients suffering from renal failure or insufficiency due to interference with other proteins. A/G RATIO 1.4 1.0 - 2.0 10/17/2022 2:33 PM [facility] CALCIUM 9.8 8.9 - 10.3 mg/dL 10/17/2022 2:33 PM [facility] T BILI <0.3 <=1.2 mg/dL 10/17/2022 2:33 PM HUMAN SERVICES CARE SPECIALIST [facility] SGOT (AST) 13 <=32 U/L 10/17/2022 2:33 PM HUMAN SERVICES CARE SPECIALIST [facility] SGPT (ALT) 9 <=41 U/L 10/17/2022 2:33 PM HUMAN SERVICES CARE SPECIALIST [facility] ALKALINE PHOSPHATASE 82 35 - 105 U/L 10/17/2022 2:33 PM HUMAN SERVICES CARE SPECIALIST [facility] GFR, ESTIMATED >60 >=60 10/17/2022 2:33 PM HUMAN SERVICES CARE SPECIALIST [facility] Comment: Creatinine Clearance is the preferred criteria for selecting drug dose adjustments in renally impaired patients. The GFR is provided as additional pertinent clinical information. GFR is reported in mL/min/1.73 sq m. Calculation based on the Chronic Kidney Disease Epidemiology Collaboration (CKD- EPI) equation refit without adjustment for race. GFR, EST. >60 >=60 023 2:33 PM HUMAN SERVICES CARE SPECIALIST [facility] GFR, EST. NONAFRICAN >60 >=60 10/17/2022 2:33 PM HUMAN SERVICES CARE SPECIALIST [facility] Blood No Phlebotomy Charged / Unknown 10/17/2022 11:44 AM HUMAN SERVICES CARE SPECIALIST 10/17/2022 1:31 PM HUMAN SERVICES CARE SPECIALIST us Victoriano Reid MD CHEMISTRY ORDERABLES Final Resul t [facility] [address] [place] [address] documented in this encounter Visit Diagnoses Not on filedocumented in this encounter Additional Health Concerns Assessment Noted Time PHQ-9 Depression Total Score: 0 08/15/20 21 10:00 AM CDT documented as of this encounter Care Teams Dishcloth Folder Relationship Specialty Start Date End Date Victoriano Reid MD PCP - General Family Medicine 06/19/19 06/29/24 Elva Olivares DO 2 [facility] [address] [place] [address] PCP - General Family Medicine 07/01/24 Malissa Joe, RN [place] Nurse Exhaust Equipment Operator 12/03/23 12/03/23 Malissa Joe, RN [place] Nurse Exhaust Equipment Operator 12/05/23 12/05/23 [place], SIDE STAPLER [place] Dredgemaster Exhaust Equipment Operator 11/03/24 Cabrera Yadav MD #2 [facility] [address] [place] [address] Consulting Physician Urology 11/07/24 documented as of this encounter
--- OUTSIDE RECORDS SUMMARY | 2025-02-24 19:02 | XMS_ITS | Encounter Summary ---
Author Organization [facility] Address [address] [place] [address] Phone Care Team Providers Care Wafer Substrate Tester Name Role Phone Victoriano Reid MD Primary Care Provider Malissa Joe RN Unavailable Unavailable Malissa Joe RN Unavailable Unavailable Elva Olivares DO Primary Care Provider [phone] [place] TRAVERTINE INSTALLER Unavailable Unaabdirizaki Cabrera Dodge MD Unavailable [phone] Encounter Details Date Type Department Care Team (Late st Contact Info) Description 10/04/2021 Lab Requisition [facility] Laboratory Services [address] [place] [phone] Victoriano Reid MD [address] [place] [address] Urinary tract infection, site not specified Social [...] Description 02/25/2025 11:00 AM CDT Clinical Support [facility] PHYSICIAN [facility] UROLOGY #[address] [place] [address] Nurse [place] [facility] 03/02/2025 8:40 AM CDT Office Visit [facility] - Family Medicine - [place] [address] [place] [address] Elva Olivares, DO 2 [facility] [address] [place] [address] 03/03/2025 1:30 PM CDT [facility] [address] [place] [address] Cabrera Yadav MD #[address] [address] Discharge Disposition: Discharged to home or Selfcare 03/24/2025 11:00 AM CDT [facility] [address] [place] [address] Elva Olivares, DO 2 [facility] [address] [place] [address] Discharge Disposition: Discharged to home or Selfcare 03/24/2025 12:15 PM CDT [facility] M[facility] [address] [place] [address] Elva Olivares, DO 2 [facility] [address] [place] [address] documented as of this encounter Procedures Procedure Name Priority Date/Time Associated Diagnosis Comments URINALYSIS REFLEX IF INDICATED BY ABNORMAL RESULTS Routine 10/04/2021 2:30 AM PRODUCTION HAND Urinary tract infection, site not specified CULTURE, URINE Routine 10/04/2021 2:30 AM PRODUCTION HAND Urinary tract infection, site not specified documented in this encounter Results * CULTURE, URINE (10/04/2021 2:30 AM PRODUCTION HAND) Pathologist [facility] CULTURE RESULTS MIXED GROWTH OF 3 OR MORE ORGANISMS, PROBABLE COLLECTION CONTAMINATION, SUGGEST REPEAT URINE CULTURE. 10/05/2021 6:24 PM PRODUCTION HAND [facility] Urine Non-Phlebotomy Collection / Unknown 10/04/2021 2:30 AM PRODUCTION HAND 10/04/2021 4:51 PM PRODUCTION HAND us Victoriano Reid MD MICROBIOLOGY - GENERAL ORDERABLE S Final Result [facility] [address] [place] [address], [place] * (ABNORMAL) URINALYSIS REFLEX IF INDICATED BY ABNORMAL RESULTS (10/04/2021 2:30 AM PRODUCTION HAND) [facility] SPECIFIC GRAVITY 1.015 1.003 - 1.030 10/04/2021 5:12 PM PRODUCTION HAND [facility] URINE PH 8.0 5.0 - 9.0 10/04/2021 5:12 PM PRODUCTION HAND [facility] WBC ESTERASE 500 /uL(A) Negative 10/04/2021 5:12 PM PRODUCTION HAND [facility] NITRITE Positive(A) Negative 10/04/2021 5:12 PM PRODUCTION HAND [facility] PROTEIN, RANDOM URINE 100 mg/dL(A) Negative 10/04/2021 5:12 PM PRODUCTION HAND [facility] URINE GLUCOSE, QUAL Negative Negative 10/04/2021 5:12 PM PRODUCTION HAND [facility] URINE KETONES Negative Negative 10/04/2021 5:12 PM PRODUCTION HAND [facility] UROBILINOGEN Normal Normal mg/dL 10/04/2021 5:12 PM PRODUCTION HAND [facility] URINE BLOOD 250 /uL(A) Negative josefa/ul 10/04/2021 5:12 PM PRODUCTION HAND [facility] URINALYSIS COLOR Yasmine 10/04/20 5:12 PM PRODUCTION HAND [facility] URINALYSIS CLARITY Very Cloudy 10/04/2021 5:12 PM PRODUCTION HAND [facility] WBC (Urine) Packed(A) Negative, 0-5 /hpf 10/04/2021 5:12 PM PRODUCTION HAND [facility] URINE RBC'S Packed(A) Negative, 0-2 /hpf 10/04/2021 5:12 PM PRODUCTION HAND [facility] EPITHELIAL CELLS Small amount /lpf 2020 5:12 PM PRODUCTION HAND [facility] BACTERIA, URINE Packed(A) Negative /hpf 10/04/2021 5:12 PM PRODUCTION HAND [facility] Urine Non-Phlebotomy Collection / Unknown 10/04/2021 2:30 AM PRODUCTION HAND 10/04/2021 4:51 PM PRODUCTION HAND us Victoriano Reid MD URINE ORDERABLES Final Result [facility] [address] [place] [address] documented in this encounter Visit Diagnoses Diagnosis Urinary tract infection, site not specified documented in this encounter Additional Health Concerns Assessment Noted Time PHQ-9 Depression Total Score: 0 08/15/20 21 10:00 AM CDT documented as of this encounter Care Teams Wafer Substrate Tester Relationship Specialty Start Date End Date Victoriano Reid MD PCP - General Family Medicine 06/19/19 06/29/24 Elva Olivares DO 2 [facility] [address] [address] PCP - General Family Medicine 07/01/24 Malissa Joe, RN [place] Nurse Dental Laboratory Manager 12/03/23 12/03/23 Malissa Joe, RN [place] Nurse Dental Laboratory Manager 12/05/23 12/05/23 [place], [facility] Infantry Indirect Fire Crewmember Dental Laboratory Manager 11/03/24 Cabrera Yadav MD #[address] [address] Consulting Physician Urology 11/07/24 documented as of this encounter
--- OUTSIDE RECORDS SUMMARY | 2025-02-24 19:02 | XMS_ITS | Encounter Summary ---
Author Organization [facility] Address [address] [place] [address] Phone Care Team Providers Care Director Of Casino Marketing Name Role Phone Victoriano Reid MD Primary Care Provider [phone] Malissa Joe RN Unavailable Unavailable Malissa Joe RN Unavailable Unavailable Elva Olivares DO Primary Care Provider [phone] [place] RISK ASSESSOR Unavailable UnaCabrera Nevarez MD Unavailable [phone] Reason for Visit * Reason Comments Medication Refill Encounter Details Date Type Department Care Team (Late st Contact Info) Description 03/24/2021 Refill [facility] - [facility] #2 [place] [phone] Sathish Loomis MD [address] [address] Medication Refill Social History Tobacco Use Types [...] Outpatient Visits 1 month ago Paraplegia (HCC) [facility] - Victoriano Beck MD 7 months ago Acute cystitis with hematuria [facility] - Victoriano Beck MD 1 year ago Paralysis of both lower limbs (HCC) [facility] Victoriano Toledo MD 1 year ago Uncontrolled type 2 diabetes mellitus with hyperglycemia ([facility]) [facility] Victoriano Toledo MD 1 year ago Spinal cord compression due to malignant neoplasm metastatic to spine ([facility]) [facility] Victoriano Toledo MD Upcoming Appointments Future Appointments In 4 days Lissy Silva MSW [facility] In 5 days Nenita Fernandes LPN [facility] In 1 week Sharonda Carrion PTA [facility] In 1 week Nenita Fernandes, BRAKE ASSEMBLER [facility] In 2 weeks Nenita Fernandes LPN [facility] In 3 weeks Nenita Fernandes LPN [facility] In 1 month Naa Rios RN [facility] ORTHOTIC AND PROSTHETIC TECHNICIAN - Recent and Past Visits Recent Visits Date Type Provider Dept 02/14/21 Telemedicine [facility]/20 Telemedicine Victoriano Reid MD [facility] 01/22/20 Telemedicine Victoriano Reid MD [facility] Showing [...] Description 02/25/2025 11:00 AM CDT Clinical Support [facility] UROLOGY #2 [place] [address] Nurse, [place] [facility] 03/02/2025 8:40 AM CDT Office Visit [facility] - Family Medicine - [place] #2 [facility] [address] Elva Olivares, DO 2 [facility] [address] [place] [address] 03/03/2025 1:30 PM CD[facility] [address] [place] [address] Cabrera Yadav MD #2 [facility] [address] [place] [address] Discharge Disposition: Discharged to home or Selfcare 03/24/2025 11:00 AM CDT Appointment [facility] Ultrasound 1 [place] [address] Elva Olivares, DO 2 [facility] [address] [place] [address] Discharge Disposition: Discharged to home or Selfcare 03/24/2025 12:15 PM CDT Appointment [facility] Mammography [address] [place] [address] Elva Oliv[address] DO [address] 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 [address] [place] [address] PCP - General Family Medicine 07/01/24 Malissa Joe, RN [place] Nurse Commercial Specialist 12/03/23 12/03/23 Malissa Joe, RN [place] Nurse Commercial Specialist 12/05/23 12/05/23 [place], [facility] [place] Freight Rate Specialist Commercial Specialist 11/03/24 Cabrera Yadav MD #2 [facility] [address] [place] [address] Consulting Physician Urology 11/07/24 documented as of this encounter
--- OUTSIDE RECORDS SUMMARY | 2025-02-24 19:02 | XMS_ITS | Encounter Summary ---
Author Organization [facility] Address [address] [place] [address] Phone Care Team Providers Care Piping Blocker Name Role Phone Victoriano Reid MD Primary Care Provider [phone] Malissa Joe RN Unavailable Unavailable Malissa Joe RN Unavailable Unavailable Elva Olivares DO Primary Care Provider [phone] [place] MACHINE SETTER SUPERVISOR Unavailable Unaabdirizaki Cabrera Dodge MD Unavailable [phone] Encounter Details Date Type Department Care Team (Late st Contact Info) Description 04/24/2023 Lab Requisition [facility] Laboratory Services 1 [place] [id number] Victoriano Reid MD #1 [place] [address] Personal history of urinary (tract) infections Social [...] Description 02/25/2025 11:00 AM CDT Clinical Support [facility] UROLOGY #2 [place] [address] Nurse [place] [facility] 03/02/2025 8:40 AM CDT Office Visit [facility] - [facility] - [place] #2 [place] [address] Elva Olivares, 2 [facility] [address] [place] [address] 03/03/2025 1:30 PM CDT [facility]ointment [facility] 1 [facility] [place] [address] Cabrera Yaadv MD #[address] [address] Discharge Disposition: Discharged to home or Selfcare 03/24/2025 11:00 AM CDT Appointment [facility] Ul[facility]ound 1 [place] [address] Elva Olivares, 2 [facility] [address] [place] [address] Discharge Disposition: Discharged to home or Selfcare 03/24/2025 12:15 PM CDT Appointment [facility] Mammography [address] [place] [address] Elva Olivares, DO 2 [facility]. [address] [place] [address] documented as of this encounter Procedures Procedure [...] RESULTS CITROBACTER AMALONATICUS 04/26/2023 8:20 PM CDT [facility] C[facility] RESULTS ENTEROCOCCUS FAECALIS 04/26/2023 8:20 PM CDT [facility] Urine Non-Phlebotomy Collection / Unknown 04/24/2023 12:54 PM CDT 04/24/2023 2:33 PM CDT Narrative [facility] - 04/26/2023 8:20 PM CDT Susceptibility [...] II <=0.25 mcg/ml: Susceptible Citrobacter amalonaticus Nitrofurantoin [facility] VITEK II 64 mcg/ml: Intermediate Citrobacter amalonaticus Piperacillin/Tazobactam [facility] V[facility] II <=4 mcg/ml: Susceptible Citrobacter amalonaticus Tobramycin [facility] V[facility] II <=1 mcg/ml: Susceptible Citrobacter amalonaticus Trimeth/Sulfamethoxazole [facility] V[facility] II <=20 mcg/ml: Susceptible us Victoriano Reid MD MICROBIOLOGY - GENERAL ORDERABLE S Final Result [facility] [address] [place] [address], * (ABNORMAL) URINALYSIS REFLEX IF INDICATED BY ABNORMAL RESULTS (04/24/2023 12:54 PM CDT) SPECIFIC GRAVITY 1.005 1.003 - 1.030 04/24/2023 3:02 PM CDT [facility] UR[facility] PH 7.0 5.0 - 9.0 04/24/2023 3:02 PM CDT [facility] WBC ESTERASE 500 /uL(A) Negative 04/24/2023 3:02 PM CDT [facility] NITRITE Positive(A) Negative 04/24/2023 3:02 PM CDT [facility] PROTEIN, RANDOM URINE 30 mg/dL(A) Negative 04/24/2023 3:02 PM CDT [facility] URINE GLUCOSE, QUAL Negative Negative 04/24/2023 3:02 PM CDT [facility] URINE KETONES Negative Negative 04/24/2023 3:02 PM CDT [facility] UROBILINOGEN Normal Normal mg/dL 04/24/2023 3:02 PM CDT [facility] URINE BLOOD 250 /uL(A) Negative josefa/ul 04/24/2023 3:02 PM CDT [facility] URINALYSIS COLOR Yellow 04/24/20 23 3:02 PM CDT [facility] URINALYSIS CLARITY Very Cloudy 04/24/2023 3:02 PM CDT [facility] WBC (Urine) 51-150(A) Negative, 0-5 /hpf 04/24/2023 3:02 PM CDT [facility] URINE RBC'S 51-150(A) Negative, 0-2 /hpf 04/24/2023 3:02 PM CDT [facility] EPITHELIAL CELLS Moderate amount /lpf 04/24/2023 3:02 PM CDT [facility] BACTERIA, URINE Many(A) Negative /hpf 04/24/2023 3:02 PM CDT [facility] CRYSTALS Amorphous urates 04/24/2023 3:02 PM CDT [facility] Urine Non-Phlebotomy Collection / Unknown 04/24/2023 12:54 PM CDT 04/24/2023 2:33 PM CDT Victoriano Reid MD URINE ORDERABLES Final Result Performing Organization Address City/State/[facility] Co de Phone Number [facility] #1 [place] [address] documented in this encounter Visit Diagnoses Diagnosis Personal history of urinary (tract) infections documented in this encounter Additional Health Concerns Assessment Noted Time PHQ-9 Depression Total Score: 0 08/15/20 21 10:00 AM CDT documented as of this encounter Care Teams Piping Blocker Relationship Specialty Start Date End Date Victoriano Reid MD PCP - General Family Medicine 06/19/19 06/29/24 Elva Olivares DO [address] [address] PCP - General Family Medicine 07/01/24 Malissa Joe RN [place] Nurse Radio Interference Investigator 12/03/23 12/03/23 Malissa Joe RN [place] Nurse Radio Interference Investigator 12/05/23 12/05/23 [place], MACHINE SETTER SUPERVISOR [place] Rug Inspector Radio Interference Investigator 1/20/25 1/24/ 25 Cabrera Yadav MD #[address] [address] Consulting Physician Urology 11/07/24 documented as of this encounter
--- OUTSIDE RECORDS SUMMARY | 2025-02-24 19:02 | XMS_ITS | Encounter Summary ---
Author Organization [facility] Address [address] [place] [address] Phone Care Team Providers Care Statistician Name Role Phone Victoriano Reid MD Primary Care Provider Malissa Joe RN Unavailable Unavailable Malissa Joe RN Unavailable Unavailable Elva Olivares DO Primary Care Provider [phone] [place] STRAIGHT PIN MAKING MACHINE OPERATOR Unavailable UnaCabrera Nevarez MD Unavailable [phone] Encounter Details Date Type Department Care Team (Late st Contact Info) Description 08/03/2020 Lab Requisition [facility] Laboratory Services 1 [place] [phone] Victoriano Reid MD #1 [place] [address] Type 2 diabetes mellitus with hyperglycemia (HCC) [...] Description 02/25/2025 11:00 AM CDT Clinical Support [facility] UROLOGY #2 [place] [address] Nurse [facility] 03/02/2025 8:40 AM CDT Office Visit [facility] Medical Group - Family Medicine - [place] #2 [place] [address] Elva Olivares, DO 2 [facility] [address] [place] [address] 03/03/2025 1:30 PM CDT [facility] [address] [place] [address] Cabrera Yadav MD #[address] [address] Discharge Disposition: Discharged to home or Selfcare 03/24/2025 11:00 AM CDT [facility] 1 [place] [address] Elva Olivares, DO 2 [facility] [address] [place] [address] Discharge Disposition: Discharged to home or Selfcare 03/24/2025 12:15 PM CDT [facility] 1 [place] [address] Elva Olivares, DO 2 [facility] [address] [place] [address] documented as of this encounter Procedures Procedure [...] RESULTS STAPHYLOCOCCUS AUREUS 08/06/2020 9:58 AM CDT [facility] CULTURE RESULTS ALSO MIXED GROWTH OF DISTAL URETHRA CONTAMINANTS. 08/06/2020 9:58 AM CDT [facility] Urine Non-Phlebotomy Collection / Unknown [...] Vancomycin [facility] VITEK II <=0.5 mcg/ml: Susceptible Victoriano Reid MD MICROBIOLOGY - GENERAL ORDERABLE S Final Result Performing Organization Address City/[facility]/ZIP Co de Phone Number [facility] [address] [place] [address], * THYROID SCREEN WITH REFLEX (08/03/2020 2:00 PM CDT) Pathologist [facility] TSH 2.480 0.270 - 4.200 mIU/L 08/03/2020 5:35 PM CDT [facility] Blood Venipuncture / Unknown 08/03/2020 2:00 PM CDT 08/03/2020 4:54 PM CDT Victoriano Reid MD CHEMISTRY ORDERABLES Final Resul t Performing Organization Address City/[facility]/ZIP Co de Phone Number [facility] #[address] [place] [address] * (ABNORMAL) CBC WITH AUTO DIFFERENTIAL (08/03/2020 2:00 PM CDT) Pathologist [facility] WBC 8.32 4.00 - 12.00 10(3)/mcL 08/03/2020 5:02 PM CDT [facility] RBC 4.20 3.80 - 5.30 10(6)/mcL 08/03/2020 5:02 PM CDT [facility] HEMOGLOBIN (HGB) 13.5 12.0 - 15.8 g/dL 08/03/2020 5:02 PM CDT [facility] HEMATOCRIT (HCT) 41.8 36.0 - 47.0 % 08/03/2020 5:02 PM CDT [facility] MCV 99.5(H) 82.0 - 96.0 fL 08/03/2020 5:02 PM CDT [facility] MCH 32.1 26.0 - 34.0 pg 08/03/2020 5:02 PM CDT [facility] MCHC 32.3 31.0 - 36.0 g/dL 08/03/2020 5:02 PM CDT [facility] PLATELET COUNT 191 140 - 440 10(3)/mcL 08/03/2020 5:02 PM CDT [facility] RDW 14.8 11.8 - 15.5 % 08/03/2020 5:02 PM CDT [facility] MPV 11.2 9.7 - 12.4 fL 08/03/2020 5:02 PM CDT [facility] NEUTROPHILS 59.8 47.0 - 73.0 % 08/03/2020 5:02 PM CDT [facility] LYMPHOCYTES 29.7 18.0 - 42.0 % 08/03/2020 5:02 PM CDT [facility] MONOCYTES 6.3 4.0 - 12.0 % 08/03/2020 5:02 PM CDT [facility] EOSINOPHILS 3.5 0.0 - 5.0 % 08/03/2020 5:02 PM CDT [facility] BASOPHILS 0.7 0.0 - 1.0 % 08/03/2020 5:02 PM CDT [facility] ABSOLUTE NEUTROPHILS 4.98 1.60 - 7.70 10(3)/mcL 08/03/2020 5:02 PM CDT [facility] ABSOLUTE LYMPHOCYTES 2.47 1.30 - 3.20 10(3)/mcL 08/03/2020 5:02 PM CDT [facility] ABSOLUTE MONOCYTES 0.52 0.20 - 1.00 10(3)/mcL 08/03/2020 5:02 PM CDT [facility] ABSOLUTE EOSINOPHIL 0.29 0.00 - 0.40 10(3)/mcL 08/03/2020 5:02 PM CDT [facility] ABSOLUTE BASOPHILS 0.06 0.00 - 0.10 10(3)/mcL 08/03/2020 5:02 PM CDT [facility] NRBC PER 100 WBC 0 08/03/20 5:02 PM CDT [facility] Blood Venipuncture / Unknown 08/03/2020 2:00 PM CDT 08/03/2020 4:53 PM CDT Victoriano Reid MD HEMATOLOGY ORDERABLES Final Resu lt Performing Organization Address City/[facility] Co de Phone Number [facility] #[address] [place] [address] * (ABNORMAL) UR MICROALBUMIN/CREATININE RATIO RANDOM (08/03/2020 2:00 PM CDT) RAN UR MICROALBUMIN <=1.20 <=2.00 mg/dL 08/03/2020 6:27 PM CDT [facility] CREATININE URINE 9.5(L) 28.0 - 217.0 mg/dL 08/03/2020 6:27 PM CDT [facility] ALB/CREAT RATIO <=126(H) 1 - 30 mg/g CRE 08/03/2020 6:27 PM CDT [facility] Urine Non-Phlebotomy Collection / Unknown 08/03/2020 2:00 PM CDT 08/03/2020 6:14 PM CDT Victoriano Reid MD URINE ORDERABLES Final Result Performing Organization Address City/[facility] Co de Phone Number [facility] #[address] [place] [address] * (ABNORMAL) URINALYSIS REFLEX IF INDICATED BY ABNORMAL RESULTS (08/03/2020 2:00 PM CDT) SPECIFIC GRAVITY 1.005 1.003 - 1.030 08/03/2020 5:24 PM CDT [facility] URINE PH 7.0 5.0 - 9.0 08/03/2020 5:24 PM CDT [facility] WBC ESTERASE 500 /uL(A) Negative 08/03/2020 5:24 PM CDT [facility] NITRITE Positive(A) Negative 08/03/2020 5:24 PM CDT [facility] PROTEIN, RANDOM URINE Negative Negative 08/03/2020 5:24 PM CDT [facility] URINE GLUCOSE, QUAL Negative Negative 08/03/2020 5:24 PM CDT [facility] URINE KETONES Negative Negative 08/03/2020 5:24 PM CDT [facility] UROBILINOGEN Normal Normal mg/dL 08/03/2020 5:24 PM CDT [facility] URINE BILIRUBIN Negative Negative 0 5:24 PM CDT [facility] URINE BLOOD Negative Negative josefa/ul 08/03/2020 5:24 PM CDT [facility] URINALYSIS COLOR Yellow 08/03/2020 5:24 PM CDT [facility] URINALYSIS CLARITY Slightly Cloudy 08/03/2020 5:24 PM CDT [facility] WBC (Urine) 21-50(A) Negative, 0-5 /hpf 08/03/2020 5:24 PM CDT [facility] URINE RBC'S 0-2 Negative, 0-2 /hpf 08/03/2020 5:24 PM CDT [facility] EPITHELIAL CELLS Occasional /lpf 08/03/2020 5:24 PM CDT [facility] BACTERIA, URINE Few(A) Negative /hpf 08/03/2020 5:24 PM CDT [facility] Urine Non-Phlebotomy Collection / Unknown 08/03/2020 2:00 PM CDT 08/03/2020 5:01 PM CDT Result Pebbles Reid MD URINE ORDERABLES Final Result Performing Organization Address City/[facility]/ZIP Co de Phone Number [facility] [address] [place] [address] * THYROXINE (T4) FREE (08/03/2020 2:00 PM CDT) T4 FREE 1.0 0.9 - 1.7 ng/dL 08/03/2020 5:35 PM CDT [facility] Blood Venipuncture / Unknown 08/03/2020 2:00 PM CDT 08/03/2020 4:55 PM CDT us Victoriano Reid MD CHEMISTRY ORDERABLES Final Resul t Performing Organization Address City/[facility] Co de Phone Number [facility] #[address] [place] [address] * (ABNORMAL) HEMOGLOBIN A1C W/ ESTIMATED GLUCOSE (08/03/2020 2:00 PM CDT) HGB-A1C 6.1(H) 4.0 - 6.0 % 08/03/2020 5:29 PM CDT [facility] Est Average Glucose 128.4 mg/dL 08/03/2020 5:29 PM CDT [facility] Blood Venipuncture / Unknown 08/03/2020 2:00 PM CDT 08/03/2020 5:14 PM CDT Narrative [facility] - 08/03/2020 5:29 PM CDT HEMOGLOBIN A1C: DIABETIC PATIENTS: WELL-CONTROLLED: 6.2 - 7.0 INTERMEDIATE WELL-CONTROLLED: 7.0 - 9.0 POORLY-CONTROLLED: >9.0 us Victoriano Reid MD CHEMISTRY ORDERABLES Final Resul t Performing Organization Address City/[facility] de Phone Number [facility] #[address] [place] [address] * (ABNORMAL) LIPID PANEL (08/03/2020 2:00 PM CDT) CHOLESTEROL 149 <=200 mg/dL 08/03/2020 5:35 PM CDT [facility] TRIGLYCERIDES 138 <150 mg/dL 08/03/2020 5:35 PM CDT [facility] HDL CHOLESTEROL 33.9(L) >40 mg/dL 0 5:35 PM CDT [facility] LDL 88 5 - 130 mg/dL 08/03/2020 5:35 PM CDT [facility] VLDL 28 5 - 55 mg/dL 08/03/2020 5:35 PM CDT [facility] CHOL/HDL RATIO 4.4 0.0 - 4.4 08/03/2020 5:35 PM CDT [facility] NON-HDL CHOLESTEROL 115.1 <130 mg/dL 08/03/2020 5:35 PM CDT [facility] LIPID FASTING 08/03/2020 5:35 PM CDT [facility] Blood Venipuncture / Unknown 08/03/2020 2:00 PM CDT 08/03/2020 4:55 PM CDT Victoriano Reid MD CHEMISTRY ORDERABLES Final Resul t Performing Organization Address [facility] Co de Phone Number [facility] #[address] [place] [address] * (ABNORMAL) CMP (COMPREHENSIVE METABOLIC PANEL) (08/03/2020 2:00 PM CDT) SODIUM 138 136 - 144 mmol/L 08/03/2020 5:35 PM CDT [facility] POTASSIUM 4.2 3.5 - 5.1 mmol/L 08/03/2020 5:35 PM CDT [facility] CHLORIDE 101 100 - 110 mmol/L 08/03/2020 5:35 PM CDT [facility] CO2, VENOUS 29 22 - 32 mmol/L 08/03/2020 5:35 PM CDT [facility] ANION GAP 12.2 8.0 - 20.0 mmol/L 08/03/2020 5:35 PM CDT [facility] GLUCOSE 126(H) 70 - 99 mg/dL 08/03/2020 5:35 PM CDT [facility] BUN 13 8 - 23 mg/dL 08/03/2020 5:35 PM CDT [facility] CREATININE, BLOOD 0.50(L) 0.60 - 1.10 mg/dL 08/03/2020 5:35 PM CDT [facility] BUN/CREATININE RATIO 26(H) 12 - 20 ratio 08/03/2020 5:35 PM CDT [facility] TOTAL PROTEIN 6.2 6.0 - 8.3 g/dL 08/03/2020 5:35 PM CDT [facility] ALBUMIN 3.9 3.5 - 5.2 g/dL 08/03/2020 5:35 PM CDT [facility] Comment: The colormetric methods used for the determination of Albumin may lead to falsely elevated test results in patients suffering from renal failure or insufficiency due to interference with other proteins. A/G RATIO 1.7 1.0 - 2.0 08/03/2020 5:35 PM CDT [facility] CALCIUM 9.4 8.9 - 10.3 mg/dL 08/03/2020 5:35 PM CDT [facility] T BILI <=0.2 <=1.2 mg/dL 08/03/2020 5:35 PM CDT [facility] SGOT (AST) 12 <=32 U/L 08/03/2020 5:35 PM CDT [facility] SGPT (ALT) 9 <=33 U/L 08/03/2020 5:35 PM CDT [facility] ALKALINE PHOSPHATASE 60 35 - 105 U/L 08/03/2020 5:35 PM CDT [facility] GFR, EST. NONAFRICAN >60 >=60 08/03/2020 5:35 PM CDT [facility] GFR, EST. >60 >=60 020 5:35 PM CDT [facility] Comment: Creatinine Clearance is the preferred criteria for selecting drug dose adjustments in renally impaired patients. The GFR is provided as additional pertinent clinical information. GFR is reported in mL/min/1.73 sq m. 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 06/05/2019 04/15/2021 7:28 AM CDT Assessment Noted Time PHQ-9 Depression Total Score: 0 10/24/19 20 11:16 AM OVEN DAUBER documented as of this encounter Care Teams Statistician Relationship Specialty Start Date End Date Victoriano Reid MD PCP - General Family Medicine 06/19/19 06/29/24 Elva Olivares DO 2 [facility] [address] [address] PCP - General Family Medicine 07/01/24 Malissa Joe RN [place] Nurse Transfer Professor 12/03/23 12/03/23 Malissa Joe RN [place] Nurse Transfer Professor 12/05/23 12/05/23 [place], STRAIGHT PIN MAKING MACHINE OPERATOR [place] Ash Conveyor Operator Transfer Professor 1/20/25 1/24/ 25 Cabrera Yadav MD #[address] [address] Consulting Physician Urology 11/07/24 documented as of this encounter
--- OUTSIDE RECORDS SUMMARY | 2025-02-24 19:02 | XMS_ITS | Encounter Summary ---
Author Organization [facility] Address [address] [place] [address] Phone Care Team Providers Care Psychology Assistant Name Role Phone Victoriano Reid MD Primary Care Provider [phone] Malissa Joe RN Unavailable Unavailable Malissa Joe RN Unavailable Unavailable Elva Olivares DO Primary Care Provider [phone] [place] [facility] Unavailable Cabrera Smallwood MD Unavailable [phone] Reason for Visit * Reason Comments Medication Refill Encounter Details Date Type Department Care Team (Late st Contact Info) Description 11/20/2023 Refill [facility] - Family Medicine [facility] [address]2 [place] [id number] Victoriano Reid MD #1 [place] [address] Medication Refill Social History Tobacco Use Types [...] often do you attend chur ch or yazidi services? Never 10/22/2023 Do you belong to [...] slept in a half-way (including now)? No 10/22/2023 Education Answer Date [...] Type Provider Dept 10/23/23 Telemedicine Miriam Prasad, MANAGER BASKETBALL, SUPERVISOR SCRAP PREPARATION Osloraine Rogers 03/29/23 Office Visit Victoriano Reid MD [facility] [place] Showing recent visits within past 365 days and meeting all other requirements Future Appointments Date Type Provider Dept 12/21/23 Appointment Victoriano Reid MD [facility] [place] Showing future appointments within next [...] Type Provider Dept 10/23/23 Telemedicine Miriam Prasad, MANAGER BASKETBALL, SUPERVISOR SCRAP PREPARATION [facility] [place] 03/29/23 Office Visit Victoriano Reid MD [facility] [place] Showing recent visits within past 365 days and meeting all other requirements Future Appointments Date Type Provider Dept 12/21/23 Appointment Victoriano Reid MD [facility] [place] Showing future appointments within next 90 days and meeting all other requirements TEND ENGINEER documented in this encounter Plan of Treatment Upcoming Encounters Date Type Department Care Team (Late st Contact Info) Description 02/25/2025 11:00 AM CDT Clinical Support [facility] UROLOGY #2 [place] [address] Nurse, [facility] 03/02/2025 8:40 AM CDT Office Visit [facility] - [facility] - [place] #2 [facility] [place] [address] Elva Olivares, DO 2 [facility] [facility]. [address] [place] [address] 03/03/2025 1:30 PM CDT [facility]ment [facility] [address] [place] [address] Cabrera Yadav MD #2 [facility] [address] [place] [address] Discharge Disposition: Discharged to home or Selfcare 03/24/2025 11:00 AM CDT [facility]ment [facility] [address] Elva Olivares, DO 2 [facility] [address] [place] [address] Discharge Disposition: Discharged to home or Selfcare 03/24/2025 12:15 PM CDT Appointment [facility] Mammography 1 [place] [address] Elva Olivares, DO [address] [address] documented as of this encounter Visit Diagnoses Diagnosis Muscle spasm Spasm of muscle documented in this encounter Additional Health Concerns Assessment Noted Time PHQ-9 Depression Total Score: 0 08/15/20 21 10:00 AM CDT documented as of this encounter Care Teams Psychology Assistant Relationship Specialty Start Date End Date Victoriano Reid MD PCP - General Family Medicine 06/19/19 06/29/24 Elva Olivares DO [address] [address] PCP - General Family Medicine 07/01/24 Malissa Joe, DONYA [place] Nurse Fire Patrol 12/03/23 12/03/23 Malissa Joe RN [place] Nurse Fire Patrol 12/05/23 12/05/23 [place], [facility] [place] Auto Specialty Services Manager Fire Patrol 11/03/24 Cabrera Yadav MD #[address] [address] Consulting Physician Urology 11/07/24 documented as of this encounter
--- OUTSIDE RECORDS SUMMARY | 2025-02-24 19:02 | XMS_ITS | CONTINUITY OF CARE DOCUMENT ---
Author Name tram ugalde Address Unknown Organization [facility] Address [address] [place] [address] Phone [phone] Care Team Providers Care Faculty Head Name Role Phone Nicki Vickers MD Unavailable Victoriano Reid MD Unavailable [phone] Victoriano Reid MD Unavailable [phone] INSURANCE PROVIDERS Payer name Policy type / Coverage type [place] red democrat [place] MED[place] Medicaid [id number]
--- OUTSIDE RECORDS SUMMARY | 2025-02-24 19:02 | XMS_ITS ---
Author Organization [facility] Address [address] [place] [address] Care Team Providers Care Tactical Intelligence Officer Name Role Phone Victoriano Reid MD Primary Care Provider [phone] Rashaun Peoples MD Unavailable [phone] Edelmira Pimentel MD Unavailable [phone] Active Problems Problem Noted Date Diagnosed [...] and [facility] and will discharge [...] normal LVEF - starting [facility] inpatient tomorrow Vitamin D deficiency 03/03/2019 [...] Discharge plans for acute inpatient rehab at [facility]. - No weight bearing restrictions, but [...] Discharge plans for acute inpatient rehab at [facility]. - No weight bearing restrictions, but [...] certainly need placement for aggressive PT/OT. [place]. - No weight bearing restrictions, [...] certainly need placement for aggressive PT/OT. [place]. - No weight bearing restrictions, [...] certainly need placement for aggressive PT/OT. [place]. - No weight bearing restrictions, [...] today, please call Janice Adams NP at [phone]. If after hours, please contact the Diabetes Fellow at [phone]. Assessment & Plan (03/14/2019 10:32 AM CDT): [...] today, please call Crista [place] NP at [phone]. If after hours, please contact the Diabetes Fellow at [phone]. Assessment & Plan (03/12/2019 10:31 AM CDT): [...] today, please call Janice Adams NP at [phone]. If after hours, please contact the Diabetes Fellow at [phone]. Assessment & Plan (03/05/2019 6:21 PM CDT): [...] were discussed with the primary team. Call [phone] with questions on day of service only. If after hours or weekends, please contact the Diabetes Fellow at [phone], option #1 Assessment & Plan (02/28/2019 12:17 [...] were discussed with the primary team. Call [phone] with questions on day of service only. If after hours or weekends, please contact the Diabetes Fellow at [phone], option #1 Assessment & Plan (02/26/2019 4:31 [...] today, please call Crista [place] NP at [phone]. If after hours, please contact the Diabetes Fellow at [phone]. Assessment & Plan (02/24/2019 10:05 AM CDT): -New diagnosis. A1c 8.9 -LDSSI. DM educator c/s, event designer -Monitor BG with decadron Current Treatment and [...] -TTE (04/16) with EF 74%, mild TR, GA; G1DD, normal RV size and function. -if [...]
--- OUTSIDE RECORDS SUMMARY | 2025-02-24 19:02 | XMS_ITS | Encounter Summary ---
Author Organization [facility] Address [address] [place] [address] Phone Care Team Providers Care Shake Packer Name Role Phone Victoriano Reid MD Primary Care Provider Malissa Joe RN Unavailable Unavailable Malissa Joe RN Unavailable Unavailable Elva Olivares DO Primary Care Provider [phone] [place] MANAGER [employer]ATIONAL Unavailable Unaabdirizaki Cabrera Dodge MD Unavailable [phone] Encounter Details Date Type Department Care Team (Late st Contact Info) Description 11/23/2021 Lab Requisition [facility] Laboratory Services 1 [place] [address] Victoriano Reid MD #1 [place] [address] Extravasation of urine Social History Tobacco Use [...] 11:00 AM CDT Clinical Support [facility] PHYSICIAN [facility] UROLOGY #2 [place] [address] Nurse Lewis Urology 03/02/2025 8:40 AM CDT Office Visit [facility] - Family Medicine [facility] #2 [place] [address] Elva Olivares, DO 2 [facility] [address] [place] [address] 03/03/2025 1:30 PM CDT [facility] 1 [facility] [place] [address] Cabrera Yadav MD #[address] [address] Discharge Disposition: Discharged to home or Selfcare 03/24/2025 11:00 AM CDT [facility] 1 [place] [address] Elva Olivares, DO 2 [facility] [address] [place] [address] Discharge Disposition: Discharged to home or Selfcare 03/24/2025 12:15 PM CDT [facility] 1 [place] [address] Elva Olivares, DO 2 [facility] [address] [place] [address] documented as of this encounter Procedures Procedure Name Priority Date/Time Associated Diagnosis Comments URINALYSIS REFLEX IF INDICATED BY ABNORMAL RESULTS Routine 11/23/2021 12:00 PM IT PROGRAM AUDITOR Extravasation of urine CULTURE, URINE Routine 11/23/2021 12:00 PM IT PROGRAM AUDITOR Extravasation of urine documented in this encounter Results * CULTURE, URINE (11/23/2021 12:00 PM IT PROGRAM AUDITOR) CULTURE RESULTS STAPHYLOCOCCUS AUREUS 11/29/2021 1:01 PM IT PROGRAM AUDITOR [facility] Urine Non-Phlebotomy Collection / Unknown 11/23/2021 12:00 PM IT PROGRAM AUDITOR 11/23/2021 3:44 PM IT PROGRAM AUDITOR Narrative Organism Antibiotic Method Susceptibility Staphylococcus aureus Cefazolin MCCLURE SINGH Susceptible Staphylococcus aureus Gentamicin MCCLURE SINGH 25 mm: Susceptible Staphylococcus aureus Nitrofurantoin MCCLURE SINGH 27 mm: Susceptible Staphylococcus aureus Oxacillin MCCLURE SINGH Susceptible Staphylococcus aureus Tetracycline MCCLURE SINGH 24 mm: Susceptible Staphylococcus aureus Trimeth/Sulfamethoxazole MCCLURE B VASQUEZ 15 mm: Intermediate Staphylococcus aureus Vancomycin ETEST 0.5 mcg/ml: Susceptible us Victoriano Reid MD MICROBIOLOGY - GENERAL ORDERABLE S Final Result [facility] [address] [place] [address], * (ABNORMAL) URINALYSIS REFLEX IF INDICATED BY ABNORMAL RESULTS (11/23/2021 12:00 PM IT PROGRAM AUDITOR) SPECIFIC GRAVITY 1.005 1.003 - 1.030 11/23/2021 4:41 PM IT PROGRAM AUDITOR [facility] URINE PH 7.0 5.0 - 9.0 11/23/2021 4:41 PM IT PROGRAM AUDITOR [facility] WBC ESTERASE 500 /uL(A) Negative 11/23/2021 4:41 PM IT PROGRAM AUDITOR [facility] NITRITE Positive(A) Negative 11/23/2021 4:41 PM IT PROGRAM AUDITOR [facility] PROTEIN, RANDOM URINE 30 mg/dL(A) Negative 11/23/2021 4:41 PM IT PROGRAM AUDITOR [facility] URINE GLUCOSE, QUAL Negative Negative 11/23/2021 4:41 PM IT PROGRAM AUDITOR [facility] URINE KETONES Negative Negative 11/23/2021 4:41 PM IT PROGRAM AUDITOR [facility] UROBILINOGEN Normal Normal mg/dL 11/23/2021 4:41 PM IT PROGRAM AUDITOR [facility] URINE BLOOD 250 /uL(A) Negative josefa/ul 11/23/2021 4:41 PM IT PROGRAM AUDITOR [facility] URINALYSIS COLOR Light yellow 2021 4:41 PM IT PROGRAM AUDITOR [facility] URINALYSIS CLARITY Slightly Cloudy 11/23/2021 4:41 PM [facility] WBC (Urine) Packed(A) Negative, 0-5 /hpf 11/23/2021 4:41 PM IT PROGRAM AUDITOR [facility] URINE RBC'S 51-150(A) Negative, 0-2 /hpf 11/23/2021 4:41 PM IT PROGRAM AUDITOR [facility] EPITHELIAL CELLS Small amount /lpf 2021 4:41 PM [facility] BACTERIA, URINE Many(A) Negative /hpf 11/23/2021 4:41 PM [facility] Urine Non-Phlebotomy Collection / Unknown 11/23/2021 12:00 PM IT PROGRAM AUDITOR 11/23/2021 3:44 PM IT PROGRAM AUDITOR us Victoriano Reid MD URINE ORDERABLES Final Result [facility] #1 [place] [address] documented in this encounter Visit Diagnoses Diagnosis Extravasation of urine documented in this encounter Additional Health Concerns Assessment Noted Time PHQ-9 Depression Total Score: 0 08/15/20 21 10:00 AM CDT documented as of this encounter Care Teams Shake Packer Relationship Specialty Start Date End Date Victoriano Reid MD PCP - General Family Medicine 06/19/19 06/29/24 Elva Olivares DO 2 [facility] [address] [place] [address] PCP - General Family Medicine 07/01/24 Malissa Joe, RN [place] Nurse Bottom Steep Tender 12/03/23 12/03/23 Malissa Joe, RN [place] Nurse Bottom Steep Tender 12/05/23 12/05/23 [place], [facility] Valver Bottom Steep Tender 11/03/24 Cabrera Yadav MD #2 [facility] [address] [place] [address] Consulting Physician Urology 11/07/24 documented as of this encounter
--- OUTSIDE RECORDS SUMMARY | 2025-02-24 19:02 | XMS_ITS | Encounter Summary ---
Author Organization [facility] Address [address] [place] [address] Phone Care Team Providers Care Pipelines Superintendent Name Role Phone Victoriano Reid MD Primary Care Provider [phone] Malissa Joe RN Unavailable Unavailable Malissa Joe RN Unavailable Unavailable Elva Olivares DO Primary Care Provider [phone] [place] TEAM LEADER Unavailable Unaabdirizaki Cabrera Dodge MD Unavailable [phone] Encounter Details Date Type Department Care Team (Late st Contact Info) Description 01/24/2023 Lab Requisition [facility] Laboratory Services 1 [place] [address] Victoriano Reid MD #1 [place] [address] Urinary tract infection, site not specified Social [...] Description 02/25/2025 11:00 AM CDT Clinical Support [facility] GROUP UROLOGY #2 [place] [address] Nurse [facility]s Urology 03/02/2025 8:40 AM CDT Office Visit [facility] #2 [place] [address] Elva Olivares, DO 2 [facility] [address] [place] [address] 03/03/2025 1:30 PM CD[facility] [place] [address] Cabrera Yadav MD #[address] [address] Discharge Disposition: Discharged to home or Selfcare 03/24/2025 11:00 AM CDT [facility] 1 [place] [address] Elva Olivares, 2 [facility] [address] [place] [address] Discharge Disposition: Discharged to home or Selfcare 03/24/2025 12:15 PM CDT [facility] M[facility] 1 [place] [address] Elva Olivares, DO 2 [facility] [address] [place] [address] documented as of this encounter Procedures Procedure [...] RESULTS CITROBACTER AMALONATICUS 01/27/2023 10:26 AM CDT [facility] CULTURE RESULTS GRAM-NEGATIVE BACILLUS 01/27/2023 10:26 AM CDT [facility] Comment:NO FURTHER WORKUP PE RFORMED Urine [...] II <=1 mcg/ml: Susceptible Citrobacter amalonaticus Trimeth/Sulfamethoxazole [facility] VITE[facility] II <=20 mcg/ml: Susceptible us Victoriano Reid MD MICROBIOLOGY - GENERAL ORDERABLE S Final Result [facility] [address] [place] [address], [place] * (ABNORMAL) URINALYSIS REFLEX IF INDICATED BY ABNORMAL RESULTS (01/24/2023 1:55 PM CDT) Pathologist [facility] SPECIFIC GRAVITY 1.010 1.003 - 1.030 01/24/2023 3:08 PM CDT [facility] PH 7.0 5.0 - 9.0 01/24/2023 3:08 PM CDT [facility] WBC ESTERASE 500 /uL(A) Negative 01/24/2023 3:08 PM CDT [facility] NITRITE Negative Negative 01/24/2023 3:08 PM CDT [facility] PROTEIN, RANDOM URINE 30 mg/dL(A) Negative 01/24/2023 3:08 PM CDT [facility] URINE GLUCOSE, QUAL Negative Negative 01/24/2023 3:08 PM CDT [facility] URINE KETONES Negative Negative 01/24/2023 3:08 PM CDT [facility] UROBILINOGEN Normal Normal mg/dL 01/24/2023 3:08 PM CDT [facility] URINE BLOOD 250 /uL(A) Negative josefa/ul 01/24/2023 3:08 PM CDT [facility] URINALYSIS COLOR [place] 01/25/20 3:08 PM CDT [facility] URINALYSIS CLARITY Slightly Cloudy 01/24/2023 3:08 PM CDT [facility] WBC (Urine) Packed(A) Negative, 0-5 /hpf 01/24/2023 3:08 PM CDT [facility] URINE RBC'S 11-20(A) Negative, 0-2 /hpf 01/24/2023 3:08 PM CDT [facility] EPITHELIAL CELLS Small amount /lpf 2022 3:08 PM CDT [facility] BACTERIA, URINE Moderate(A) Negative /hpf 01/24/2023 3:08 PM CDT [facility] Urine Non-Phlebotomy Collection / Unknown 01/24/2023 1:55 PM CDT 01/24/2023 2:43 PM CDT Victoriano Reid MD URINE ORDERABLES Final Result [facility]1 [place] [address] documented in this encounter Visit Diagnoses Diagnosis Urinary tract infection, site not specified documented in this encounter Additional Health Concerns Assessment Noted Time PHQ-9 Depression Total Score: 0 08/15/20 21 10:00 AM CDT documented as of this encounter Care Teams Pipelines Superintendent Relationship Specialty Start Date End Date Victoriano Reid MD PCP - General Family Medicine 06/19/19 06/29/24 Elva Olivares DO 2 [facility] [address] [place] [address] PCP - General Family Medicine 07/01/24 Malissa Joe, RN [place] Nurse Certified Pathology Assistant 12/03/23 12/03/23 Malissa Joe, RN [place] Nurse Certified Pathology Assistant 12/05/23 12/05/23 [place], TEAM LEADER [place] Bumbo[place] Certified Pathology Assistant 11/03/24 Carbera Yadav MD #[address] [address] Consulting Physician Urology 11/07/24 documented as of this encounter
--- OUTSIDE RECORDS SUMMARY | 2025-02-24 19:02 | XMS_ITS | Encounter Summary ---
Author Organization [facility] Address [address] [place] [address] Phone Care Team Providers Care Electrotyper Name Role Phone Victoriano Reid MD Primary Care Provider [phone] Malissa Joe RN Unavailable Unavailable Malissa Joe RN Unavailable Unavailable Elva Olivares DO Primary Care Provider [phone] [place] COMMERCIAL SALES REPRESENTATIVE Unavailable UnaCabrera Nevarez MD Unavailable [phone] Reason for Visit * Reason Comments Medication Refill Encounter Details Date Type Department Care Team (Late st Contact Info) Description 08/31/2021 Refill [facility] #2 [place] [address] Sathish Loomis MD #[address] [address] Medication Refill Social History Tobacco Use Types [...] Questions ?? 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) [id number] [place], [place] - [address] ETRICS/GYNECOLOGY NURSE documented in this encounter Plan of Treatment Upcoming Encounters Date Type Department Care Team (Late st Contact Info) Description 02/25/2025 11:00 AM CDT Clinical Support [facility] #2 [place] [address] Nurse, [facility] 03/02/2025 8:40 AM CDT Office Visit [facility] - Family Medicine - [facility] #2 [place] [address] Elva Olivares, DO 2 [facility] [address] [place] [address] 03/03/2025 1:30 PM CDT [facility] [address] [place] [address] Cabrera Yadav MD #[address] [address] Discharge Disposition: Discharged to home or Selfcare 03/24/2025 11:00 AM CDT [facility] 1 [place] [address] Elva Olivares, DO 2 [facility] [address] [place] [address] Discharge Disposition: Discharged to home or Selfcare 03/24/2025 12:15 PM CDT [facility] 1 [place] [address] Elva Olivares, DO 2 [facility] [address] [place] [address] documented as of this encounter Visit Diagnoses Diagnosis 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 [address] [place] [address] PCP - General Family Medicine 07/01/24 Malissa Joe, RN [place] Nurse Personal Secretary 12/03/23 12/03/23 Malissa Joe, RN [place] Nurse Personal Secretary 12/05/23 12/05/23 [place], COMMERCIAL SALES REPRESENTATIVE [place] Field Sales Agent Personal Secretary 11/03/24 Cabrera Yadav MD #2 [facility] [address] [place] [address] Consulting Physician Urology 11/07/24 documented as of this encounter
--- OUTSIDE RECORDS SUMMARY | 2025-02-24 19:02 | XMS_ITS | Encounter Summary ---
Author Organization [facility] Address [address] [place] [address] Phone Care Team Providers Care Gi Asst Name Role Phone Victoriano Reid MD Primary Care Provider [phone] Malissa Joe RN Unavailable Unavailable Malissa Joe RN Unavailable Unavailable Elva Olivares DO Primary Care Provider [phone] [place] SCHEDULE SUPERVISOR Unavailable Unaabdirizaki Cabrera Dodge MD Unavailable [phone] Encounter Details Date Type Department Care Team (Late st Contact Info) Description 04/20/2020 [facility] 1 [place] [id number] Victoriano Reid MD #1 [place] [address] Urinary tract infection, site not specified Social [...] Description 02/25/2025 11:00 AM CDT Clinical Support [facility] UROLOGY #2 [place] [address] NurseKen Urology 03/02/2025 8:40 AM CDT Office Visit [facility] - Family Medicine [facility] #2 [place] [address] Elva Olivares, DO 2 [facility] [address] [place] [address] 03/03/2025 1:30 PM CDT [facility] 1 [facility] [place] [address] Cabrera Yadav MD #[address] [address] Discharge Disposition: Discharged to home or Selfcare 03/24/2025 11:00 AM CDT [facility] 1 [facility] [place] [address] Elva Olivares, DO 2 [facility] [address] [place] [address] Discharge Disposition: Discharged to home or Selfcare 03/24/2025 12:15 PM CDT [facility] M[facility] 1 [facility] [place] [address] Elva Olivraes, DO 2 [facility] [address] [place] [address] documented as of this encounter Procedures Procedure [...] RESULTS ESCHERICHIA COLI 04/24/2020 9:18 AM CDT [facility] CULTURE RESULTS ESCHERICHIA COLI 04/24/2020 9:18 AM CDT [facility] Urine Non-Phlebotomy Collection / Unknown 04/20/2020 [...] IIB <=1 mcg/ml: Susceptible Escherichia coli Gentamicin SF VITEK IIB <=1 mcg/ml: Susceptible Escherichia coli Levofloxacin [facility] VITEK IIB <=0.12 mcg/ml: Susceptible Escherichia coli Meropenem [facility] V[facility] IIB <=0.25 mcg/ml: Susceptible Escherichia coli Nitrofurantoin [facility] V[facility]K IIB 32 mcg/ml: Susceptible Escherichia coli Piperacillin/Tazobactam [facility] V[facility]K II B <=4 mcg/ml: Susceptible Escherichia coli Tobramycin [facility] V[facility] IIB <=1 mcg/ml: Susceptible Escherichia coli Trimeth/Sulfamethoxazole [facility] VITEK I IB <=20 mcg/ml: Susceptible us Victoriano Reid MD MICROBIOLOGY - GENERAL ORDERABLE S Final Result [facility] [address] [place] [address], * (ABNORMAL) URINALYSIS REFLEX IF INDICATED BY ABNORMAL RESULTS (04/20/2020 3:50 PM CDT) Pathologist [facility] SPECIFIC GRAVITY 1.010 1.003 - 1.030 04/20/2020 5:20 PM CDT [facility] URINE PH 8.0 5.0 - 9.0 04/20/2020 5:20 PM CDT [facility] WBC ESTERASE 500 /uL(A) Negative 04/20/2020 5:20 PM CDT [facility] NITRITE Positive(A) Negative 04/20/2020 5:20 PM CDT [facility] PROTEIN, RANDOM URINE Negative Negative 04/20/2020 5:20 PM CDT [facility] URINE GLUCOSE, QUAL Negative Negative 04/20/2020 5:20 PM CDT [facility] URINE KETONES Negative Negative 04/20/2020 5:20 PM CDT [facility] UROBILINOGEN Normal Normal mg/dL 04/20/2020 5:20 PM CDT [facility] URINE BILIRUBIN Negative Negative 0 5:20 PM CDT [facility] URINE BLOOD 10 /uL(A) Negative josefa/ul 04/20/2020 5:20 PM CDT [facility] URINALYSIS COLOR Straw 04/20/20 5:20 PM CDT [facility] URINALYSIS CLARITY Very Cloudy 04/20/2020 5:20 PM CDT [facility] WBC (Urine) 21-50(A) Negative, 0-5 /hpf 04/20/2020 5:20 PM CDT [facility] URINE RBC'S 0-2 Negative, 0-2 /hpf 04/20/2020 5:20 PM CDT [facility] EPITHELIAL CELLS Small amount /lpf 2019 5:20 PM CDT [facility] BACTERIA, URINE Packed(A) Negative /hpf 04/20/2020 5:20 PM CDT [facility] Urine Non-Phlebotomy Collection / Unknown 04/20/2020 3:50 PM CDT 04/20/2020 4:57 PM CDT us Victoriano Reid MD URINE ORDERABLES Final Result [facility] #1 [place] [address] documented in this encounter Visit Diagnoses Diagnosis Urinary tract infection, site not specified documented in this encounter Additional Health Concerns Infection Onset Date Last Indicated Resolved Time 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 06/05/2019 04/15/2021 7:28 AM CDT Assessment Noted Time PHQ-9 Depression Total Score: 0 10/24/19 20 11:16 AM ADVANCED PRACTICE NURSE documented as of this encounter Care Teams Gi Asst Relationship Specialty Start Date End Date Victoriano Reid MD PCP - General Family Medicine 06/19/19 06/29/24 Elva Olivares DO [address] [address] PCP - General Family Medicine 07/01/24 Joe, Malissa M, RN [place] Nurse Bone Char Kiln Operator 12/03/23 12/03/23 Malissa Joe, RN [place] Nurse Bone Char Kiln Operator 12/05/23 12/05/23 [place], [facility] Public Service Officer Bone Char Kiln Operator 11/03/24 Cabrera Yadav MD #[address] [address] Consulting Physician Urology 11/07/24 documented as of this encounter
--- OUTSIDE RECORDS SUMMARY | 2025-02-24 19:02 | XMS_ITS | Encounter Summary ---
Author Organization [facility] Address [address] [place] [address] Phone Care Team Providers Care Truck Driving Instructor Name Role Phone Victoriano Reid MD Primary Care Provider [phone] Malissa Joe RN Unavailable Unavailable Malissa Joe RN Unavailable Unavailable Elva Olivares DO Primary Care Provider [phone] [place] DRILL RUNNER HELPER Unavailable Unaabdirizaki Cabrera Dodge MD Unavailable [phone] Encounter Details Date Type Department Care Team (Late st Contact Info) Description 05/19/2020 [facility] 1 [place] [id number] Victoriano Reid MD #1 [place] [address] Urinary tract infection, site not specified Social [...] Description 02/25/2025 11:00 AM CDT Clinical Support [facility] UROLOGY #[address] [place] [address] NurseKen Urology 03/02/2025 8:40 AM CDT Office Visit [facility] #[address] [place] [address] Elva Olivares, DO 2 [facility] [address] [place] [address] 03/03/2025 1:30 PM CDT [facility] 1 [facility] [place] [address] Cabrera Yadav MD #[address] [address] Discharge Disposition: Discharged to home or Selfcare 03/24/2025 11:00 AM CDT [facility] 1 [facility] [place] [address] Elva Olivares, DO 2 [facility] [address] [place] [address] Discharge Disposition: Discharged to home or Selfcare 03/24/2025 12:15 PM CDT [facility] 1 [facility] [place] [address] Elva Olivares, DO 2 [facility] [facility] [address] [place] [address] documented as of this encounter Procedures Procedure [...] RESULTS CITROBACTER AMALONATICUS 05/23/2020 9:23 AM CDT [facility] CULTURE RESULTS ESCHERICHIA COLI 05/23/2020 9:23 AM CDT [facility] Urine Non-Phlebotomy Collection / Unknown 05/19/2020 2:15 PM CDT 05/19/2020 4:30 PM CDT Narrative Organism Antibiotic Method Susceptibility Citrobacter amalonaticus Cefazolin [facility] V[facility]K IIB >=64 mcg/ml: Resistant Citrobacter amalonaticus [...] IIB <=1 mcg/ml: Susceptible Escherichia coli Levofloxacin SF VITEK IIB <=0.12 mcg/ml: Susceptible Escherichia coli Meropenem [facility] V[facility]K IIB <=0.25 mcg/ml: Susceptible Escherichia coli Nitrofurantoin SF VITEK IIB <=16 mcg/ml: Susceptible Escherichia coli Piperacillin/Tazobactam SF VITEK II B <=4 mcg/ml: Susceptible Escherichia coli Tobramycin [facility] V[facility] IIB <=1 mcg/ml: Susceptible Escherichia coli Trimeth/Sulfamethoxazole [facility] VITEK I IB <=20 mcg/ml: Susceptible us Victoriano Reid MD MICROBIOLOGY - GENERAL ORDERABLE S Final Result [facility] [address] [place] [address], * (ABNORMAL) URINALYSIS REFLEX IF INDICATED BY ABNORMAL RESULTS (05/19/2020 2:15 PM CDT) SPECIFIC GRAVITY 1.010 1.003 - 1.030 05/19/2020 4:46 PM CDT [facility] PH 8.0 5.0 - 9.0 05/19/2020 4:46 PM CDT [facility] WBC ESTERASE 500 /uL(A) Negative 05/19/2020 4:46 PM CDT [facility] NITRITE Positive(A) Negative 05/19/2020 4:46 PM CDT [facility] PROTEIN, RANDOM URINE 15 mg/dL(A) Negative 05/19/2020 4:46 PM CDT [facility] URINE GLUCOSE, QUAL Negative Negative 05/19/2020 4:46 PM CDT [facility] URINE KETONES Negative Negative 05/19/2020 4:46 PM CDT [facility] UROBILINOGEN Normal Normal mg/dL 05/19/2020 4:46 PM CDT [facility] URINE BILIRUBIN Negative Negative 0 4:46 PM CDT [facility] URINE BLOOD 150 /uL(A) Negative josefa/ul 05/19/2020 4:46 PM CDT [facility] URINALYSIS COLOR Dark Yellow 020 4:46 PM CDT [facility] URINALYSIS CLARITY Very Cloudy 05/19/2020 4:46 PM CDT [facility] WBC (Urine) 51-150(A) Negative, 0-5 /hpf 05/19/2020 4:46 PM CDT [facility] URINE RBC'S 6-10(A) Negative, 0-2 /hpf 05/19/2020 4:46 PM CDT [facility] EPITHELIAL CELLS Small amount /lpf 2019 4:46 PM CDT [facility] BACTERIA, URINE Packed(A) Negative /hpf 05/19/2020 4:46 PM CDT [facility] Urine Non-Phlebotomy Collection / Unknown 05/19/2020 2:15 PM CDT 05/19/2020 4:30 PM CDT us Victoriano Reid MD URINE ORDERABLES Final Result [facility] #[address] [place] [address] documented in this encounter Visit Diagnoses Diagnosis Urinary tract infection, site not specified documented in this encounter Additional Health Concerns Infection Onset Date Last Indicated Resolved Time 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 06/05/2019 04/15/2021 7:28 AM CDT Assessment Noted Time PHQ-9 Depression Total Score: 0 10/24/19 20 11:16 AM SECURITY OPERATIONS ANALYST documented as of this encounter Care Teams Truck Driving Instructor Relationship Specialty Start Date End Date Victoriano Reid MD PCP - General Family Medicine 06/19/19 06/29/24 Elva Olivares DO [address] [facility] [facility] [address] [address] PCP - General Family Medicine 07/01/24 Joe, Malissa M, RN [place] Nurse Skin Fitter 2/19/24 2/19/24 Malissa Joe RN [place] Nurse Skin Fitter 12/05/23 12/05/23 [place], DRILL RUNNER HELPER MD Furnace Filler Skin Fitter 11/03/24 Cabrera Yadav MD #[address] [address] Consulting Physician Urology 11/07/24 documented as of this encounter
--- OUTSIDE RECORDS SUMMARY | 2025-02-24 19:02 | XMS_ITS | Encounter Summary ---
Author Organization [facility] Address [address] [place] [address] Phone Care Team Providers Care Vocational Nurse Lvn Name Role Phone Victoriano Reid MD Primary Care Provider [phone] Malissa Joe RN Unavailable Unavailable Malissa oJe RN Unavailable Unavailable Elva Olivares DO Primary Care Provider [phone] [place] ATMOSPHERIC CHEMIST Unavailable Cabrera Smallwood MD Unavailable [phone] Reason for Visit * Reason Comments Medication Refill Encounter Details Date Type Department Care Team (Late st Contact Info) Description 08/07/2021 Refill [facility] #2 [place] [address] Victoriano Reid MD #1 [place] [address] Medication Refill Social History Tobacco Use Types [...] Provider Dept 02/14/21 Telemedicine Victoriano Reid MD [facility] Ken Showing recent visits within past 365 [...] Support [facility] #2 [place] [address] Nurse, Ken Urology 03/02/2025 8:40 AM CDT Office Visit [facility] - [place] #[address] [place] [address] Elva Olivares, DO 2 [facility] [address] [place] [address] 03/03/2025 1:30 PM CDT [facility] 1 [place] [address] Cabrera Yadav MD #2 [facility] [address] [place] [address] Discharge Disposition: Discharged to home or Selfcare 03/24/2025 11:00 AM CDT [facility] 1 [place] [address] Elva Olivares, DO 2 [facility] [address] [place] [address] Discharge Disposition: Discharged to home or Selfcare 03/24/2025 12:15 PM CDT [facility] M[facility] 1 [place] [address] Elva Olivares, DO [address] [address] documented as of this encounter Visit Diagnoses Not on filedocumented in this encounter Additional Health Concerns Assessment Noted Time PHQ-9 Depression Total Score: 0 10/24/19 20 11:16 AM OCCUPATIONAL THERAPIST HOME BASED documented as of this encounter Care Teams Vocational Nurse Lvn Relationship Specialty Start Date End Date Victoriano Reid MD PCP - General Family Medicine 06/19/19 06/29/24 Elva Olivares DO 2 [facility] [address] [address] PCP - General Family Medicine 07/01/24 Malissa Joe RN [place] Nurse Ethylene Plant Operator 12/03/23 12/03/23 Malissa Joe RN [place] Nurse Ethylene Plant Operator 12/05/23 12/05/23 [place], [facility] [employer] Principal Ethylene Plant Operator 11/03/24 Cabrera Yadav MD #[address] [address] Consulting Physician Urology 11/07/24 documented as of this encounter
--- OUTSIDE RECORDS SUMMARY | 2025-02-24 19:02 | XMS_ITS | Encounter Summary ---
Author Organization [facility] Address [address] [place] [address] Phone Care Team Providers Care Heel Slicker Name Role Phone Victoriano Reid MD Primary Care Provider [phone] Malissa Joe RN Unavailable Unavailable Malissa Joe RN Unavailable Unavailable Elva Olivares DO Primary Care Provider [phone] [place] INVESTIGATOR FRAUD Unavailable Cabrera Smallwood MD Unavailable [phone] Reason for Visit * Reason Comments Medication Refill Encounter Details Date Type Department Care Team (Late st Contact Info) Description 09/05/2021 Refill [facility] - Family Medicine [facility] #2 [place] [address] Victoriano Reid MD #1 [place] [address] Medication Refill Social History Tobacco Use Types [...] Description 02/25/2025 11:00 AM CDT Clinical Support [facility] PHYSICIAN [facility] UROLOGY #2 [place] [address] Nurse [place] Urology 03/02/2025 8:40 AM CDT Office Visit [facility] - Family [facility] - [place] #2 [place] [address] Elva Olivares, 2 [facility] [address] [place] [address] 03/03/2025 1:30 PM CD[facility] 1 [place] [address] Cabrera Yadav MD #[address] [address] Discharge Disposition: Discharged to home or Selfcare 03/24/2025 11:00 AM CDT [facility] 1 [place] [address] Elva Olivares, 2 [facility] [address] [place] [address] Discharge Disposition: Discharged to home or Selfcare 03/24/2025 12:15 PM CDT [facility] 1 [facility] [place] [address] [address] [facility] [facility] [address] [place] [address] documented as of this encounter Visit Diagnoses [...] 06/29/24 Elva Olivares DO 2 Magda ME[address]OWS [facility] [address] [place] [address] PCP - General Family Medicine 07/01/24 Malissa Joe, RN [place] Nurse Disk Sharpener 12/03/23 12/03/23 Malissa Joe, RN [place] Nurse Disk Sharpener 12/05/23 12/05/23 [place], [facility] [place] Regulatory Affairs Director Disk Sharpener 11/03/24 Cabrera Yadav MD #[address] [address] Consulting Physician Urology 11/07/24 documented as of this encounter
--- OUTSIDE RECORDS SUMMARY | 2025-02-24 19:02 | XMS_ITS | Encounter Summary ---
Author Organization [facility] Address [address] [place] [address] Phone Care Team Providers Care Bargain Table Clerk Name Role Phone Victoriano Reid MD Primary Care Provider [phone] Malissa Joe RN Unavailable Unavailable Malissa Joe RN Unavailable Unavailable Elva Olivares DO Primary Care Provider [phone] [place] CHILDREN'S AIDE Unavailable Cabrera Smallwood MD Unavailable [phone] Reason for Visit * Reason Onset Date Comments Medication Refill 12/27/2021 Encounter Details Date Type Department Care Team (Late st Contact Info) Description 12/27/2021 Refill [facility] Medical Group - Family [facility] #2 [place] [address] Victoriano Reid MD #1 [place] [address] Medication Refill Social History Tobacco Use Types [...] Provider Dept 01/02/22 Appointment Saranya Brooke APRN, DRYWALLER Juanmariela Rogers Showing future appointments within next 90 days and meeting all other requirements * Telephone Encounter - Estephanie Parham - 12/27/2021 9:11 AM CDT Received a faxed Rx request from pharmacy. Reordered refill medication(s) requested and pended for nurse and physician/NICKOLAS review. Refill encounter routed to nurse [email or web address]'s [employer] for processing. documented in this encounter Plan of Treatment Upcoming Encounters Date Type Department Care Team (Late st Contact Info) Description 02/25/2025 11:00 AM CDT Clinical Support [facility] #2 [place] [address] NurseKen Urology 03/02/2025 8:40 AM CDT Office Visit [facility] - Family [facility] #2 [place] [address] Elva Olivares, DO [address] [address] 03/03/2025 1:30 PM CDT [facility] 1 [place] [address] Cabrera Yadav MD #[address] [address] Discharge Disposition: Discharged to home or Selfcare 03/24/2025 11:00 AM CDT [facility] 1 [place] [address] Elva Olivares, DO [address] [address] Discharge Disposition: Discharged to home or Selfcare 03/24/2025 12:15 PM CDT [facility] 1 [place] [address] Elva Olivares, DO [address] [address] documented as of this encounter Visit Diagnoses Not on filedocumented in this encounter Additional Health Concerns Assessment Noted Time PHQ-9 Depression Total Score: 0 08/15/20 21 10:00 AM CDT documented as of this encounter Care Teams Bargain Table Clerk Relationship Specialty Start Date End Date Victoriano Reid MD PCP - General Family Medicine 06/19/19 06/29/24 Elva Olivares DO 2 [facility] [facility] [facility]. [address] [place] [address] PCP - General Family Medicine 07/01/24 Malissa Joe, RN [place] Nurse Campus Recruiting Internship 12/03/23 12/03/23 Malissa Joe RN PA Nurse Campus Recruiting Internship 12/05/23 12/05/23 [place] [facility] Bed Control Specialist Campus Recruiting Internship 11/03/24 Cabrera Yadav MD #2 [address] [facility] [address] [place] [address] Consulting Physician Urology 11/07/24 documented as of this encounter
--- OUTSIDE RECORDS SUMMARY | 2025-02-24 19:02 | XMS_ITS | Encounter Summary ---
Author Organization [facility] Address [address] [place] [address] Phone Care Team Providers Care Garment Supervisor Name Role Phone Victoriano Reid MD Primary Care Provider [phone] Malissa Joe RN Unavailable Unavailable Malissa Joe RN Unavailable Unavailable Elva Olivares DO Primary Care Provider [phone] [place] LOCAL SALES ASSOCIATE Unavailable Unaabdirizaki Cabrera Dodge MD Unavailable [phone] Encounter Details Date Type Department Care Team (Late st Contact Info) Description 05/22/2023 Lab Requisition [facility] Laboratory Services 1 [place] [phone] Victoriano Reid MD #1 [place] [address] Urinary tract infection, site not specified Social [...] Description 02/25/2025 11:00 AM CDT Clinical Support [facility] PHYSICIAN [facility] UROLOGY #2 [place] [address] Nurse [place] [facility] 03/02/2025 8:40 AM CDT Office Visit [facility] - Family Medicine - [place] #2 [place] [address] Elva Olivares, DO 2 [facility] [address] [place] [address] 03/03/2025 1:30 PM CDT [facility] 1 [place] [address] Cabrera Yadav MD #[address] [address] Discharge Disposition: Discharged to home or Selfcare 03/24/2025 11:00 AM CDT [facility]ment [facility] Ul[facility]ound 1 [place] [address] Elva Olivares, DO 2 [facility] [address] [place] [address] Discharge Disposition: Discharged to home or Selfcare 03/24/2025 12:15 PM CDT Appointment [facility] M[facility] 1 [place] [address] Elva Olivares, DO 2 [facility] [address] [place] [address] documented as of this encounter Procedures Procedure [...] RESULTS CITROBACTER AMALONATICUS 05/27/2023 3:22 PM CDT [facility] CULTURE RESULTS ALSO MIXED GROWTH OF DISTAL URETHRA CONTAMINANTS. 05/27/2023 3:22 PM CDT [facility] Urine Non-Phlebotomy Collection / Unknown 05/22/2023 1:00 [...] previously final verified report. Citrobacter amalonaticus Tobramycin [facility] II <=1 mcg/ml: Susceptible Citrobacter amalonaticus Trimeth/Sulfamethoxazole [facility] II <=20 mcg/ml: Susceptible Comment:This is an a ppended report. These results have been appended to a previously final verified report. us Victoriano Reid MD MICROBIOLOGY - GENERAL ORDERABLE S Edited Result - Final [facility] [address] [place] [address], * (ABNORMAL) URINALYSIS REFLEX IF INDICATED BY ABNORMAL RESULTS (05/22/2023 1:00 PM CDT) SPECIFIC GRAVITY 1.010 1.003 - 1.030 05/22/2023 2:36 PM CDT [facility] PH 7.0 5.0 - 9.0 05/22/2023 2:36 PM CDT [facility] WBC ESTERASE 500 /uL(A) Negative 05/22/2023 2:36 PM CDT [facility] NITRITE Positive(A) Negative 05/22/2023 2:36 PM CDT [facility] PROTEIN, RANDOM URINE 30 mg/dL(A) Negative 05/22/2023 2:36 PM CDT [facility] URINE GLUCOSE, QUAL Negative Negative 05/22/2023 2:36 PM CDT [facility] URINE KETONES Negative Negative 05/22/2023 2:36 PM CDT [facility] UROBILINOGEN Normal Normal mg/dL 05/22/2023 2:36 PM CDT [facility] URINE BLOOD 250 /uL(A) Negative josefa/ul 05/22/2023 2:36 PM CDT [facility] URINALYSIS COLOR Yellow 05/22/2023 2:36 PM CDT [facility] URINALYSIS CLARITY Slightly Cloudy 05/22/2023 2:36 PM CDT [facility] WBC (Urine) 11-20(A) Negative, 0-5 /hpf 05/22/2023 2:36 PM CDT [facility] URINE RBC'S 51-150(A) Negative, 0-2 /hpf 05/22/2023 2:36 PM CDT [facility] EPITHELIAL CELLS Occasional /lpf 05/22/2023 2:36 PM CDT [facility] BACTERIA, URINE Packed(A) Negative /hpf 05/22/2023 2:36 PM CDT [facility] Urine Non-Phlebotomy Collection / Unknown 05/22/2023 1:00 PM CDT 05/22/2023 2:04 PM CDT us Victoriano Reid MD URINE ORDERABLES Final Result [facility] #1 [place] [address] documented in this encounter Visit Diagnoses Diagnosis Urinary tract infection, site not specified documented in this encounter Additional Health Concerns Assessment Noted Time PHQ-9 Depression Total Score: 0 08/15/20 21 10:00 AM CDT documented as of this encounter Care Teams Garment Supervisor Relationship Specialty Start Date End Date Victoriano Reid MD PCP - General Family Medicine 06/19/19 06/29/24 Elva Olivares DO [address] [address] PCP - General Family Medicine 07/01/24 Malissa Joe, RN [place] Nurse Perforator 12/03/23 12/03/23 Malissa Joe, RN [place] Nurse Perforator 12/05/23 12/05/23 [place], LOCAL SALES ASSOCIATE [place] Relay Tester Perforator 11/03/24 Cabrera Yadav MD #[address] [address] Consulting Physician Urology 11/07/24 documented as of this encounter
--- OUTSIDE RECORDS SUMMARY | 2025-02-24 19:02 | XMS_ITS | Encounter Summary ---
Author Organization [facility] Address [address] [place] [address] Phone Care Team Providers Care Director Security Management Name Role Phone Victoriano Reid MD Primary Care Provider [phone] Malissa Joe RN Unavailable Unavailable Malissa Joe RN Unavailable Unavailable Elva Olivares DO Primary Care Provider [phone] [place] EVENT PLANNING INTERN Unavailable Cabrera Smallwood MD Unavailable [phone] Reason for Visit * Reason Comments Medication Refill Encounter Details Date Type Department Care Team (Late st Contact Info) Description 09/05/2021 [facility]ill [facility] - [place] #2 [place] [address] Singh Myrick APRN, AMMONIA WORKER #[address] [address] Medication Refill Social History Tobacco Use Types [...] Dept 08/15/21 Office Visit Victoriano Reid MD [facility] 02/14/21 Telemedicine Victoriano Reid MD [facility] Ken Showing recent visits within past 365 days and meeting all other requirements Future Appointments No visits were found meeting these conditions. 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 documented in this encounter Plan of Treatment Upcoming Encounters Date Type Department Care Team (Late st Contact Info) Description 02/25/2025 11:00 AM CDT Clinical Support [facility] UROLOGY #[address] [place] [address] NurseKen Urology 03/02/2025 8:40 AM CDT Office [facility] - [facility] - [place] [address] [place] [address] Elva Olivares, DO 2 [facility] [address] [place] [address] 03/03/2025 1:30 PM CD[facility] [place] [address] Cabrera Yadav MD #[address] [address] Discharge Disposition: Discharged to home or Selfcare 03/24/2025 11:00 AM CDT [facility] 1 [place] [address] Elva Olivares, DO [address] [address] Discharge Disposition: Discharged to home or Selfcare 03/24/2025 12:15 PM CDT [facility] 1 [facility] [place] [address] Elva Olivares, DO [address] [address] documented as of this encounter Visit Diagnoses Not on filedocumented in this encounter Additional Health Concerns Assessment Noted Time PHQ-9 Depression Total Score: 0 08/15/20 21 10:00 AM CDT documented as of this encounter Care Teams Director Security Management Relationship Specialty Start Date End Date Victoriano Reid MD PCP - General Family Medicine 06/19/19 06/29/24 Elva Olivares DO 2 [facility] [address] [place] [address] PCP - General Family Medicine 07/01/24 Malissa Joe, RN [place] Nurse Customer Servicer 12/03/23 12/03/23 Malissa Joe, RN [place] Nurse Customer Servicer 12/05/23 12/05/23 [place], [facility] Skin Care Instructor Customer Servicer 11/03/24 Cabrera Yadav MD #[address] [address] Consulting Physician Urology 11/07/24 documented as of this encounter
--- OUTSIDE RECORDS SUMMARY | 2025-02-24 19:02 | XMS_ITS | Encounter Summary ---
Author Organization [facility] Address [address] [facility] [place] [address] Phone Care Team Providers Care Power Equipment Technology Instructor Name Role Phone Victoriano Reid MD Primary Care Provider [phone] Elva Olivares DO Primary Care Provider [phone] [place] E COMMERCE STRATEGIST Unavailable Unavai Cabrera Dodge MD Unavailable [phone] Encounter Details Date Type Department Care Team (Late st Contact Info) Description 12/20/2023 Lab Requisition [facility] Laboratory Services 1 [place] [address] Victoriano Reid MD #1 [place] [address] Type 2 diabetes mellitus with other specified complication (HCC) Social History Tobacco Use Types Packs/Day Years Used Date Smoking Tobacco: Every Day Cigarettes Smokeless Tobacco: Never Alcohol Use Standard Drinks/Week Comments Not Currently 0 (1 standard drink = 0.6 oz pur e alcohol) [facility] Utilities Answer Date Recorded In the [...] attend chur ch or mosque services? Never 12/20/2023 Do you belong to [...] Total Score - Questions 1-9 0 12/14 [facility] - Occupational [...] of Assessment Author 0 12/20/2023 11:52 AM HAND CIGAR MAKING SUPERVISOR [employer] Background * Q1: How often do you have a drink containing alcohol? Answer Date of Assessment Author Never 12/20/2023 11:52 AM HAND CIGAR MAKING SUPERVISOR [employer] Background * Q2: How many drinks containing alcohol do you have on a typical day when you are drinking? Answer Date of Assessment Author Patient does not drink 12/20/2023 11:52 AM HAND CIGAR MAKING SUPERVISOR [employer] Background * Q3: How often do you have six or more drinks on one occasion? Answer Date of Assessment Author Never 12/20/2023 11:52 AM HAND CIGAR MAKING SUPERVISOR [employer] Background documented as of this encounter Plan of Treatment Upcoming Encounters Date Type Department Care Team (Late st Contact Info) Description 02/25/2025 11:00 AM CDT Clinical Support [facility] UROLOGY #[address] [place] [address] NurseKen Urology 03/02/2025 8:40 AM CDT Office Visit [facility] - Family Medicine [facility] #2 [place] [address] Elva Olivares, DO 2 [facility] [address] [place] [address] 03/03/2025 1:30 PM CDT [facility] 1 [facility] [place] [address] Cabrera Yadav MD #[address] [address] Discharge Disposition: Discharged to home or Selfcare 03/24/2025 11:00 AM CDT [facility]ointment [facility] Ultrasound 1 [place] [address] Elva Olivares, DO 2 [facility] [address] [place] [address] Discharge Disposition: Discharged to home or Selfcare 03/24/2025 12:15 PM CDT Appointment [facility] Mammography 1 [place] [address] Elva Olivares, DO 2 [facility] [address] [place] [address] documented as of this encounter Procedures Procedure Name Priority Date/Time Associated Diagnosis Comments HEMOGLOBIN A1C W/ ESTIMATED GLUCOSE Routine 12/20/2023 12:30 PM HAND CIGAR MAKING SUPERVISOR Type 2 diabetes mellitus with other specified complication (HCC) CBC WITH AUTO DIFFERENTIAL Routine 12/20/2023 12:30 PM HAND CIGAR MAKING SUPERVISOR Type 2 diabetes mellitus with other specified complication (HCC) CMP (COMPREHENSIVE METABOLIC PANEL) Routine 12/20/2023 12:30 PM HAND CIGAR MAKING SUPERVISOR Type 2 diabetes mellitus with other specified complication (HCC) COMPLETE BLOOD COUNT (CBC) WITH DIFF Routine 12/20/2023 12:30 PM HAND CIGAR MAKING SUPERVISOR Type 2 diabetes mellitus with other specified complication (HCC) documented in this encounter Results * (ABNORMAL) CBC WITH AUTO DIFFERENTIAL (12/20/2023 12:30 PM HAND CIGAR MAKING SUPERVISOR) WBC 9.25 4.00 - 12.00 10(3)/mcL 12/20/2023 2:29 PM [facility] RBC 4.47 3.80 - 5.30 10(6)/mcL 12/20/2023 2:29 PM [facility] HEMOGLOBIN (HGB) 14.7 12.0 - 15.8 g/dL 12/20/2023 2:29 PM [facility] HEMATOCRIT (HCT) 44.7 36.0 - 47.0 % 12/20/2023 2:29 PM [facility] MCV 100.0(H) 82.0 - 96.0 fL 12/20/2023 2:29 PM [facility] MCH 32.9 26.0 - 34.0 pg 12/20/2023 2:29 PM [facility] MCHC 32.9 31.0 - 36.0 g/dL 12/20/2023 2:29 PM [facility] PLATELET COUNT 161 140 - 440 10(3)/mcL 12/20/2023 2:29 PM [facility] RDW 14.3 11.8 - 15.5 % 12/20/2023 2:29 PM [facility] MPV 11.8 9.7 - 12.4 fL 12/20/2023 2:29 PM [facility] NEUTROPHILS 51.9 47.0 - 73.0 % 12/20/2023 2:29 PM [facility] LYMPHOCYTES 37.2 18.0 - 42.0 % 12/20/2023 2:29 PM [facility] MONOCYTES 6.5 4.0 - 12.0 % 12/20/2023 2:29 PM [facility] EOSINOPHILS 3.5 0.0 - 5.0 % 12/20/2023 2:29 PM [facility] BASOPHILS 0.9 0.0 - 1.0 % 12/20/2023 2:29 PM [facility] ABSOLUTE NEUTROPHILS 4.81 1.60 - 7.70 10(3)/[facility] 12/20/2023 2:29 PM [facility] ABSOLUTE LYMPHOCYTES 3.44(H) 1.30 - 3.20 10(3)/[facility] 12/20/2023 2:29 PM [facility] ABSOLUTE MONOCYTES 0.60 0.20 - 1.00 10(3)/[facility] 12/20/2023 2:29 PM [facility] ABSOLUTE EOSINOPHIL 0.32 0.00 - 0.40 10(3)/[facility] 12/20/2023 2:29 PM [facility] ABSOLUTE BASOPHILS 0.08 0.00 - 0.10 10(3)/[facility] 12/20/2023 2:29 PM [facility] NRBC PER 100 WBC 0 12/20/19 2:29 PM [facility] Blood No Phlebotomy Charged / Unknown 12/20/2023 12:30 PM HAND CIGAR MAKING SUPERVISOR 12/20/2023 2:26 PM [facility] us Victoriano Reid MD HEMATOLOGY ORDERABLES Final Resu lt [facility] #1 [place] [address] * HEMOGLOBIN A1C W/ ESTIMATED GLUCOSE (12/20/2023 12:30 PM [facility]) HGB-A1C 5.8 4.0 - 6.0 % 12/20/2023 2:51 PM [facility] Est Average Glucose 119.8 mg/dL 12/20/2023 2:51 PM HAND CIGAR MAKING SUPERVISOR [facility] Blood No Phlebotomy Charged / Unknown 12/20/2023 12:30 PM HAND CIGAR MAKING SUPERVISOR 12/20/2023 2:26 PM HAND CIGAR MAKING SUPERVISOR Narrative [facility] - 12/20/2023 2:51 PM HAND CIGAR MAKING SUPERVISOR HEMOGLOBIN A1C: DIABETIC PATIENTS: WELL-CONTROLLED: 6.2 - 7.0 INTERMEDIATE WELL-CONTROLLED: 7.0 - 9.0 POORLY-CONTROLLED: >9.0 us Victoriano Reid MD CHEMISTRY ORDERABLES Final Resul t [facility] #1 [place] [address] * (ABNORMAL) CMP (COMPREHENSIVE METABOLIC PANEL) (12/20/2023 12:30 PM HAND CIGAR MAKING SUPERVISOR) SODIUM 144 136 - 145 mmol/L 12/20/2023 2:47 PM HAND CIGAR MAKING SUPERVISOR [facility] POTASSIUM 4.2 3.5 - 5.1 mmol/L 12/20/2023 2:47 PM [facility] CHLORIDE 109(H) 98 - 107 mmol/L 12/20/2023 2:47 PM [facility] CO2, VENOUS 27 22 - 30 mmol/L 12/20/2023 2:47 PM [facility] ANION GAP 12.2 <18.0 mmol/L 12/20/2023 2:47 PM HAND CIGAR MAKING SUPERVISOR [facility] GLUCOSE 136(H) 70 - 99 mg/dL 12/20/2023 2:47 PM [facility] BUN 14 10 - 20 mg/dL 12/20/2023 2:47 PM [facility] CREATININE, BLOOD 0.84 0.60 - 1.00 mg/dL 12/20/2023 2:47 PM [facility] BUN/CREATININE RATIO 17 12 - 20 ratio 12/20/2023 2:47 PM [facility] TOTAL PROTEIN 6.9 6.3 - 8.2 g/dL 12/20/2023 2:47 PM HAND CIGAR MAKING SUPERVISOR [facility] ALBUMIN 3.8 3.5 - 5.0 g/dL 12/20/2023 2:47 PM HAND CIGAR MAKING SUPERVISOR [facility] A/G RATIO 1.2 1.0 - 2.2 12/20/2023 2:47 PM HAND CIGAR MAKING SUPERVISOR [facility] CALCIUM 9.8 8.7 - 10.5 mg/dL 12/20/2023 2:47 PM HAND CIGAR MAKING SUPERVISOR [facility] T BILI 0.3 0.2 - 1.2 mg/dL 12/20/2023 2:47 PM HAND CIGAR MAKING SUPERVISOR [facility] SGOT (AST) 12 5 - 34 U/L 12/20/2023 2:47 PM HAND CIGAR MAKING SUPERVISOR [facility] SGPT (ALT) 10 0 - 55 U/L 12/20/2023 2:47 PM HAND CIGAR MAKING SUPERVISOR [facility] ALKALINE PHOSPHATASE 69 40 - 150 U/L 12/20/2023 2:47 PM HAND CIGAR MAKING SUPERVISOR [facility] GFR, ESTIMATED >60 >=60 12/20/2023 2:47 PM HAND CIGAR MAKING SUPERVISOR [facility] Comment: Creatinine Clearance is the preferred criteria for selecting drug dose adjustments in renally impaired patients. The GFR is provided as additional pertinent clinical information. GFR is reported in mL/min/1.73 sq m. Calculation based on the Chronic Kidney Disease Epidemiology Collaboration (CKD- EPI) equation refit without adjustment for race. GFR, EST. >60 >=60 024 2:47 PM HAND CIGAR MAKING SUPERVISOR [facility] GFR, EST. NONAFRICAN >60 >=60 12/20/2023 2:47 PM HAND CIGAR MAKING SUPERVISOR [facility] Blood No Phlebotomy Charged / Unknown 12/20/2023 12:30 PM HAND CIGAR MAKING SUPERVISOR 12/20/2023 2:26 PM HAND CIGAR MAKING SUPERVISOR us Victoriano Reid MD CHEMISTRY ORDERABLES Final Resul t [facility] #1 [place] [address] documented in this encounter Visit Diagnoses Diagnosis Type 2 diabetes mellitus with other specified complication documented in this encounter Additional Health Concerns Assessment Noted Time PHQ-9 Depression Total Score: 0 08/15/20 21 10:00 AM CDT documented as of this encounter Care Teams Power Equipment Technology Instructor Relationship Specialty Start Date End Date Victoriano Reid MD PCP - General Family Medicine 06/19/19 06/29/24 Elva Olivares DO 2 [facility] [address] [place] [address] PCP - General Family Medicine 07/01/24 H[place], [facility] Customer Success Director Tattoo Artist 11/03/24 Cabrera Yadav MD #2 [facility] [address] [place] [address] Consulting Physician Urology 11/07/24 documented as of this encounter
--- OUTSIDE RECORDS SUMMARY | 2025-02-24 19:02 | XMS_ITS | Encounter Summary ---
Author Organization [facility] Address [address] [place] [address] Phone Care Team Providers Care Long Goods Drier Name Role Phone Victoriano Reid MD Primary Care Provider [phone] Malissa Joe RN Unavailable Unavailable Malissa Joe RN Unavailable Unavailable Elva Olivares DO Primary Care Provider [phone] [place] AIRPLANE TUBE BUILDER Unavailable Unaabdirizaki Cabrera Dodge MD Unavailable [phone] Encounter Details Date Type Department Care Team (Late st Contact Info) Description 11/23/2021 Lab Requisition [facility] Laboratory Services 1 [place] [address] Victoriano Reid MD #1 [place] [address] Urinary tract infection, site not specified Social [...] AM CDT Clinical Support [facility] PHYSICIAN [facility] UROLOGY #2 [place] [address] Nurse [place] [facility] 03/02/2025 8:40 AM CDT Office Visit [facility] - Family Medicine - [place] #2 [place] [address] Elva Olivares, DO 2 [facility] [address] [place] [address] 03/03/2025 1:30 PM CD[facility] [place] [address] Cabrera Yadav MD #[address] [address] Discharge Disposition: Discharged to home or Selfcare 03/24/2025 11:00 AM CDT [facility] 1 [place] [address] Elva Olivares, DO 2 [facility] [address] [place] [address] Discharge Disposition: Discharged to home or Selfcare 03/24/2025 12:15 PM CDT [facility] 1 [place] [address] Elva Olivares, DO 2 [facility] [address] [place] [address] Scheduled Orders Name Type Priority Associated Diagnoses [...] as of this encounter Care Teams Long Goods Drier Relationship Specialty Start Date End Date Victoriano Reid MD PCP - General Family Medicine 06/19/19 06/29/24 Elva Olivares DO 2 [facility] [address] [place] [address] PCP - General Family Medicine 07/01/24 Malissa Joe, RN [place] Nurse Employee Placement Specialist 12/03/23 12/03/23 Malissa Joe, RN [place] Nurse Employee Placement Specialist 12/05/23 12/05/23 [place], AIRPLANE TUBE BUILDER [place] Overlock Collar Setter Employee Placement Specialist 11/03/24 Cabrera Yadav MD #2 [facility] [address] [place] [address] Consulting Physician Urology 11/07/24 documented as of this encounter
--- OUTSIDE RECORDS SUMMARY | 2025-02-24 19:02 | XMS_ITS | Encounter Summary ---
Author Organization [facility] Address [address] [place] [address] Phone Care Team Providers Care Buffing Turner And Counter Name Role Phone Victoriano Reid MD Primary Care Provider Malissa Joe RN Unavailable Unavailable Malissa Joe RN Unavailable Unavailable Elva Olivares DO Primary Care Provider [phone] [place] GEAR LAPPER Unavailable Cabrera Smallwood MD Unavailable [phone] Reason for Visit * Reason Comments Medication Refill Encounter Details Date Type Department Care Team (Late st Contact Info) Description 11/05/2021 [facility]ill [facility] #[address] [place] [address] Victoriano Reid MD [address] [place] [address] Medication Refill Social History Tobacco Use Types [...] 11/07/2021 8:53 AM CST ergocalciferol (VITAMIN D) 91710 UNIT Capsule 12 Capsule 3 08/15/2021 Sig - Route: Take 1 Capsule by mouth once a week. On Sunday - Oral Sent to pharmacy as: Ergocalciferol 1.25 MG (01720 UT) Oral Capsule (VITAMIN D) Class: E Prescribe E-Prescribing Status: Receipt confirmed by pharmacy (08/15/2021 ??1:57 PM CDT) Order Questions ?? ergocalciferol (VITAMIN D) 10299 UNIT Capsule [[id number]] 1357 Status: Active Ordering user: Victoriano Reid MD 08/15/21 1357 Authorized by: Victoriano Reid MD Frequency: Weekly 08/15/21 - Until Discontinued Diagnoses Vitamin D deficiency [E55.9] Associated Diagnoses Vitamin D deficiency Pharmacy [id number] [place] [address] Refills on file TAL MEDIA DESIGNER documented in this encounter Plan of Treatment Upcoming Encounters Date Type Department Care Team (Late st Contact Info) Description 02/25/2025 11:00 AM CDT Clinical Support [facility]2 [address] [place] [address] [facility] 03/02/2025 8:40 AM CDT Office Visit [facility] - [place] [address] [place] [place] [address] Elva Olivares, DO 2 [facility] [place], [facility]. [address] [place] [address] 03/03/2025 1:30 PM CDT [facility] [address] [facility] [place] [address] Cabrera Yadav MD #2 [facility] [address] [place] [address] Discharge Disposition: Discharged to home or Selfcare 03/24/2025 11:00 AM CDT [facility] 1 [place] [address] Elva Olivares DO 2 [facility] [address] [place] [address] Discharge Disposition: Discharged to home or Selfcare 03/24/2025 12:15 PM CDT [facility] Mamm[facility] [address] [place] [address] Elva Olivares DO 2 [facility] [address] [place] [address] documented as of this encounter Visit Diagnoses Diagnosis Vitamin D deficiency Unspecified vitamin D deficiency documented in this encounter Additional Health Concerns Assessment Noted Time PHQ-9 Depression Total Score: 0 08/15/20 21 10:00 AM CDT documented as of this encounter Care Teams Buffing Turner And Counter Relationship Specialty Start Date End Date Victoriano Reid MD PCP - General Family Medicine 06/19/19 06/29/24 Elva Olivares DO 2 [facility] [address] [place] [address] PCP - General Family Medicine 07/01/24 Malissa Joe, RN [place] Nurse Propagator Laborer 12/03/23 12/03/23 Malissa Joe, RN [place] Nurse Propagator Laborer 12/05/23 12/05/23 [place], [facility] Corporate Administrator Propagator Laborer 11/03/24 Cabrera Yadav MD #[address] [address] Consulting Physician Urology 11/07/24 documented as of this encounter
--- OUTSIDE RECORDS SUMMARY | 2025-02-24 19:02 | XMS_ITS | Encounter Summary ---
Author Organization [facility] Address [address] [place] [address] Phone Care Team Providers Care Laboratory Clerk Name Role Phone Victoriano Reid MD Primary Care Provider [phone] Elva Olivares DO Primary Care Provider [phone] [place] [facility] Unavailable Cabrera Smallwood MD Unavailable [phone] Reason for Visit * Reason Comments Medication Refill Encounter Details Date Type Department Care Team (Late Contact Info) Description 12/20/2023 Refill [facility] - Family Medicine [facility] #[address] [place] [address] Victoriano Reid MD #[address] [place] [address] Medication Refill Social History Tobacco Use Types Packs/Day Years Used Date Smoking Tobacco: Every Day Cigarettes Smokeless Tobacco: Never Alcohol Use Standard Drinks/Week Comments Not Currently 0 (1 standard drink = 0.6 oz pur e alcohol) [facility] Utilities Answer Date Recorded In [...] often do you attend chur ch or alevism services? Never 12/20/2023 Do you belong to any clubs o r organizations such as spiritism groups, unions, fraternal or athletic groups, or [...] 12/14 [facility] - Occupational [...] of Assessment Author 0 12/20/2023 11:52 AM STENCILING MACHINE TENDER [employer], System Background * Q1: How often do you have a drink containing alcohol? Answer Date of Assessment Author Never 12/20/2023 11:52 AM STENCILING MACHINE TENDER [employer], System Background * Q2: How many drinks containing alcohol do you have on a typical day when you are drinking? Answer Date of Assessment Author Patient does not drink 12/20/2023 11:52 AM STENCILING MACHINE TENDER [employer], System Background * Q3: How often do you have six or more drinks on one occasion? Answer Date of Assessment Author Never 12/20/2023 11:52 AM STENCILING MACHINE TENDER [employer], System Background documented as of this encounter Miscellaneous Notes * Telephone Encounter - Adelaida Medina RN - 12/20/2023 10:19 AM STENCILING MACHINE TENDER Medication failed the protocol, provider to review [...] Victoriano Reid MD [facility] 10/23/23 Telemedicine Miriam Prasad DOUGH RAISER, ELECTRONIC DEVICE REPAIRER [facility] 03/29[facility]23 Office Visit [facility] MD [facility] Showing recent visits within past 365 days and meeting all other requirements Future Appointments Date Type Provider Dept 12/21/23 Appointment Victoriano Reid MD [facility] Showing future appointments within next 90 days and meeting all other requirements CILING MACHINE TENDER documented in this encounter Plan of Treatment Upcoming Encounters Date Type Department Care Team (Late st Contact Info) Description 02/25/2025 11:00 AM CDT Clinical Support [facility] #2 [place] [address] Nurse, [place] [facility] 03/02/2025 8:40 AM CDT Office [facility] - [place] #[address] [place] [address] Elva Olivares, DO 2 [facility] [address] [place] [address] 03/03/2025 1:30 PM CDT [facility]ment [facility] [address] [place] [address] Cabrera Yadav MD #2 [facility] [address] [place] [address] Discharge Disposition: Discharged to home or Selfcare 03/24/2025 11:00 AM CDT [facility]ment [facility] Ul[facility]ound 1 [facility] [place] [address] Elva Olivares, DO 2 [facility] [address] [place] [address] Discharge Disposition: Discharged to home or Selfcare 03/24/2025 12:15 PM CDT [facility]ointment [facility] Mammography 1 [facility] [place] [address] Elva Olivares, DO 2 [facility] [address] [place] [address] documented as of this encounter Visit Diagnoses Diagnosis Hypokalemia Hypopotassemia documented in this encounter Additional Health Concerns Assessment Noted Time PHQ-9 Depression Total Score: 0 08/15/20 21 10:00 AM CDT documented as of this encounter Care Teams Laboratory Clerk Relationship Specialty Start Date End Date Victoriano Reid MD PCP - General Family Medicine 06/19/19 06/29/24 Elva Olivares DO 2 [facility] [address] [place] [address] PCP - General Family Medicine 07/01/24 Hinton, [facility] Optical Designer Elevator Serviceman 11/03/24 Cabrera Yadav MD #2 [facility] [address] [place] [address] Consulting Physician Urology 11/07/24 documented as of this encounter
--- OUTSIDE RECORDS SUMMARY | 2025-02-24 19:02 | XMS_ITS | Encounter Summary ---
Author Organization [facility] Address [address] [place] [address] Phone Care Team Providers Care Individual Pension Adviser Name Role Phone Victoriano Reid MD Primary Care Provider [phone] Malissa Joe RN Unavailable Unavailable Malissa Joe RN Unavailable Unavailable Elva Olivares DO Primary Care Provider [phone] [place] FUNERAL LOCATION MANAGER Unavailable Unaabdirizaki Cabrera Dodge MD Unavailable [phone] Encounter Details Date Type Department Care Team (Late st Contact Info) Description 08/31/2023 Lab Requisition [facility] Laboratory Services 1 [place] [address] Victoriano Reid MD #1 [place] [address] Urinary tract infection, site not specified Social [...] AM CDT Clinical Support [facility] #2 [place] [address] Nurse [facility] 03/02/2025 8:40 AM CDT Office Visit [facility] - Family Medicine - [facility] #[address] [place] [address] Elva Olivares, DO 2 [facility] [address] [place] [address] 03/03/2025 1:30 PM CDT [facility]ment [facility] [address] [place] [address] Cabrera Yadav MD #[address] [address] Discharge Disposition: Discharged to home or Selfcare 03/24/2025 11:00 AM CDT Appointment [facility] Ultrasound 1 [place] [address] Elva Olivares, DO 2 [facility] [address] [place] [address] Discharge Disposition: Discharged to home or Selfcare 03/24/2025 12:15 PM CDT Appointment [facility] Mammography 1 [place] [address] Elva Olivares, DO 2 [facility] [address] [place] [address] documented as of this encounter Procedures Procedure Name Priority Date/Time Associated Diagnosis Comments URINALYSIS REFLEX IF INDICATED BY ABNORMAL RESULTS Routine 08/31/2023 12:00 PM LEARNING SUPPORT RESOURCE ROOM TEACHER Urinary tract infection, site not specified CULTURE, URINE Routine 08/31/2023 12:00 PM LEARNING SUPPORT RESOURCE ROOM TEACHER Urinary tract infection, site not specified documented in this encounter Results * CULTURE, URINE (08/31/2023 12:00 PM LEARNING SUPPORT RESOURCE ROOM TEACHER) CULTURE RESULTS ENTEROCOCCUS FAECALIS 09/02/2023 6:17 PM LEARNING SUPPORT RESOURCE ROOM TEACHER [facility] Urine Non-Phlebotomy Collection / Unknown 08/31/2023 12:00 PM LEARNING SUPPORT RESOURCE ROOM TEACHER 08/31/2023 1:39 PM LEARNING SUPPORT RESOURCE ROOM TEACHER Narrative [facility] - 09/02/2023 6:17 PM LEARNING SUPPORT RESOURCE ROOM TEACHER Susceptibility not performed on enterococcus species. Due to high achievable concentrations in urine, Ampicillin is the drug of choice for treating infections limited to the lower urinary tract (regardless of Vancomycin susceptibility). For allergic patients, Nitrofurantoin or a quinolone may be substituted. us Victoriano Reid MD MICROBIOLOGY - GENERAL ORDERABLE S Final Result Performing Organization Address City/State/[facility] Co de Phone Number [facility] [address] [place] [address], * (ABNORMAL) URINALYSIS REFLEX IF INDICATED BY ABNORMAL RESULTS (08/31/2023 12:00 PM LEARNING SUPPORT RESOURCE ROOM TEACHER) SPECIFIC GRAVITY 1.005 1.003 - 1.030 08/31/2023 2:27 PM LEARNING SUPPORT RESOURCE ROOM TEACHER [facility] URINE PH 7.0 5.0 - 9.0 08/31/2023 2:27 PM LEARNING SUPPORT RESOURCE ROOM TEACHER [facility] WBC ESTERASE 500 /uL(A) Negative 08/31/2023 2:27 PM LEARNING SUPPORT RESOURCE ROOM TEACHER [facility] NITRITE Negative Negative 08/31/2023 2:27 PM LEARNING SUPPORT RESOURCE ROOM TEACHER [facility] PROTEIN, RANDOM URINE 30 mg/dL(A) Negative 08/31/2023 2:27 PM LEARNING SUPPORT RESOURCE ROOM TEACHER [facility] URINE GLUCOSE, QUAL Negative Negative 08/31/2023 2:27 PM LEARNING SUPPORT RESOURCE ROOM TEACHER [facility] URINE KETONES Negative Negative 08/31/2023 2:27 PM LEARNING SUPPORT RESOURCE ROOM TEACHER [facility] UROBILINOGEN Normal Normal mg/dL 08/31/2023 2:27 PM LEARNING SUPPORT RESOURCE ROOM TEACHER [facility] URINE BLOOD 250 /uL(A) Negative josefa/ul 08/31/2023 2:27 PM LEARNING SUPPORT RESOURCE ROOM TEACHER [facility] URINALYSIS COLOR Yellow 08/31/2023 2:27 PM LEARNING SUPPORT RESOURCE ROOM TEACHER [facility] URINALYSIS CLARITY Slightly Cloudy 08/31/2023 2:27 PM LEARNING SUPPORT RESOURCE ROOM TEACHER [facility] WBC (Urine) 6-10(A) Negative, 0-5 /hpf 08/31/2023 2:27 PM LEARNING SUPPORT RESOURCE ROOM TEACHER [facility] URINE RBC'S 3-5(A) Negative, 0-2 /hpf 08/31/2023 2:27 PM LEARNING SUPPORT RESOURCE ROOM TEACHER [facility] EPITHELIAL CELLS Occasional /lpf 08/31/2023 2:27 PM LEARNING SUPPORT RESOURCE ROOM TEACHER [facility] BACTERIA, URINE Few(A) Negative /hpf 08/31/2023 2:27 PM LEARNING SUPPORT RESOURCE ROOM TEACHER [facility] Urine Non-Phlebotomy Collection / Unknown 08/31/2023 12:00 PM LEARNING SUPPORT RESOURCE ROOM TEACHER 08/31/2023 1:39 PM LEARNING SUPPORT RESOURCE ROOM TEACHER us Victoriano Reid MD URINE ORDERABLES Final Result [facility] #1 [place] [address] documented in this encounter Visit Diagnoses Diagnosis Urinary tract infection, site not specified documented in this encounter Additional Health Concerns Assessment Noted Time PHQ-9 Depression Total Score: 0 08/15/20 21 10:00 AM CDT documented as of this encounter Care Teams Individual Pension Adviser Relationship Specialty Start Date End Date Victoriano Reid MD PCP - General Family Medicine 06/19/19 06/29/24 Elva Olivares DO 2 [facility] [place] [email or web address] [address] [place] [address] PCP - General Family Medicine 07/01/24 Malissa Joe, RN [place] Nurse Elastic Attacher Chainstitch 12/03/23 12/03/23 Malissa Joe, RN [place] Nurse Elastic Attacher Chainstitch 12/05/23 12/05/23 [place], FUNERAL LOCATION MANAGER [place] Provisioning Analyst Elastic Attacher Chainstitch 11/03/24 Cabrera Yadav MD #2 [facility] [address] [place] [address] Consulting Physician Urology 11/07/24 documented as of this encounter
--- OUTSIDE RECORDS SUMMARY | 2025-02-24 19:02 | XMS_ITS | Clinical Summary ---
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 -TTE shows grade 1 diastolic dysfunction and normal LVEF - starting [facility] inpatient today Assessment & Plan (03/11/2019 [...] diastolic dysfunction and normal LVEF - starting [facility] inpatient tomorrow Vitamin D deficiency 03/03/2019 [...] Discharge plans for acute inpatient rehab at [facility]. - No weight bearing restrictions, but [...] Discharge plans for acute inpatient rehab at [facility]. - No weight bearing restrictions, but [...] certainly need placement for aggressive PT/[place]. [place]. - No weight bearing restrictions, [...] certainly need placement for aggressive PT/[place]. [place]. - No weight bearing restrictions, [...] certainly need placement for aggressive PT/OT. [place]. - No weight bearing restrictions, [...] certainly need placement for aggressive PT/OT. [place]. - No weight bearing restrictions, [...] today, please call Janice Adams NP at [phone]. If after hours, please contact the Diabetes Fellow at [phone]. Assessment & Plan (03/14/2019 10:32 AM CDT): [...] today, please call Crista Montgomery NP at [phone]. If after hours, please contact the Diabetes Fellow at [phone]. Assessment & Plan (03/12/2019 10:31 AM CDT): [...] today, please call Janice Adams NP at [phone]. If after hours, please contact the Diabetes Fellow at [phone]. Assessment & Plan (03/05/2019 6:21 PM CDT): [...] after the previous Dexamethasone wears off -monitor [facility] Patient has been seen by CDE. [...] were discussed with the primary team. Call [phone] with questions on day of service only. If after hours or weekends, please contact the Diabetes Fellow at [phone], option #1 Assessment & Plan (02/28/2019 12:17 [...] were discussed with the primary team. Call [phone] with questions on day of service only. If after hours or weekends, please contact the Diabetes Fellow at [phone], option #1 Assessment & Plan (02/26/2019 4:31 [...] today, please call Crista Montgomery NP at [phone]. If after hours, please contact the Diabetes Fellow at [phone]. Assessment & Plan (02/24/2019 10:05 AM CDT): -New diagnosis. A1c 8.9 -LDSSI. DM educator c/s, explosives operator -Monitor BG with decadron Resolved Problems Problem [...] -TTE (04/16) with EF 74%, mild TR, ID; G1DD, normal RV size and function. -if [...] Comments Blood Pressure 111/76 09/03/2019 12:16 PM DIGITAL STRATEGY SPECIALIST Pulse 81 09/03/2019 12:16 PM DIGITAL STRATEGY SPECIALIST Temperature 36.4 C (97.5 F) 09/03/2019 12:16 PM DIGITAL STRATEGY SPECIALIST Respiratory Rate 16 09/03/2019 12:1 6 PM DIGITAL STRATEGY SPECIALIST Oxygen Saturation 100% 09/03/2019 12: 16 PM DIGITAL STRATEGY SPECIALIST Inhaled Oxygen Concentration - - Weight 79.8 kg (176 lb) 09/03/2019 12:1 6 PM DIGITAL STRATEGY SPECIALIST weight -verbal per patient Height 165.1 cm (5' 5 ) 09/03/2019 12:1 6 PM DIGITAL STRATEGY SPECIALIST Body Mass Index 29.29 09/03/2019 12:16 PM DIGITAL STRATEGY SPECIALIST Plan of Treatment Health Maintenance Due [...] Completed 03/05/2019 Medical Devices Implanted Type Area Front Office Coordinator Device Identifier Shelf Expiration Date Model / Serial / Lot Depuy Spine [id number] 5.5mm 1 Inner Spine Screw Set Titanium Nonsterile Viper - [id number] Implanted:Qty: 8 on 02/24/2019 by Edelmira Pimentel MD at [facility] Screw N/A: Spine Lumbar Depuy Spine [id number] / / Depuy Synthes Spine [id number] Viper Prime Od5 Mm L45 Mm Fix Polyaxial Fenestrate Extend Tab Spine Cortical Screw Bone Nonsterile 5.5 Mm Dav - [id number] Implanted:Qty: 2 on 02/24/2019 by Edelmira Pimentel MD at [facility] Screw N/A: Spine Lumbar Depuy Synthes Spine [id number] / / Depuy Synthes Spine [id number] Viper Prime Od6 Mm L40 Mm Fix Polyaxial Fenestrate Extend Tab Spine Cortical Screw Bone Nonsterile 5.5 Mm Dav - [id number] Implanted:Qty: 2 on 02/24/2019 by Edelmira Pimentel MD at [facility] Screw N/A: Spine Lumbar Depuy Synthes Spine [id number] / / Depuy Synthes Spine [id number] Viper Prime Od6 Mm L45 Mm Fix Polyaxial Fenestrate Extend Tab Spine Cortical Screw Bone Nonsterile 5.5 Mm Dav - [id number] Implanted:Qty: 4 on 02/24/2019 by Edelmira Pimentel MD at [facility] N/A: Spine Lumbar Depuy Synthes Spine [id number] / / Ti Mis Depuy Viper Kypho Dav Implanted:Qty: 2 on 02/24/2019 by Edelmira Pimentel MD at [facility] N/A: Spine Lumbar Depuy Spine [id number] / / Angio Dynamics [id number] Xcela 8fr 1.6mm 1 Lumen Power Injectable Attach Catheter Fill - [id number] Implanted:Qty: 1 on 04/29/2019 at [facility] Angio Dynamics 02/17/2024 [id number] / / [id number] Procedures Procedure Name Priority Date/Time Associated Diagnosis [...] and children were not included. (Diabetes Care 31:9939-5399, 2008). The eAG is not equivalent to a fasting glucose. Blood specimen (specimen) 06/13/2019 12:08 PM CDT 06/13/2019 12:23 PM CDT us Rashaun Peoples MD LAB BLOOD ORDERABLES Final R esult [facility] [address] [place] [address] * (ABNORMAL) Lipid panel (04/15/2019 2:17 AM CDT) Cholesterol 95 30 - 199 mg/dL [facility] Comment: Interpretive Data Ages < or [...] on 2018. Triglycerides 59 <=149 mg/dL [facility] Comment: Interpretive Data Ages < or [...] revised on 2018. HDL 30(L) >=40 mg/dL [facility] Comment: Interpretive Data Ages < or [...] 2018. LDL, calculated 53 <=129 mg/dL [facility] Comment: Interpretive Data Ages < or [...] revised on 2018. Non-HDL Cholesterol 65 mg/dL [facility] Comment: Interpretive Data Ages < or [...] last revised on 2018. Chol/HDL ratio 3 [facility] Blood specimen (specimen) 04/15/2019 2:17 AM CDT 04/15/2019 3:00 AM CDT Rashaun Peoples MD LAB BLOOD ORDERABLES Final R esult [facility] Department [place] [address] * Hepatitis panel, acute (03/05/2019 8:26 PM CDT) Hep A IgM Nonreactive Nonreactive [facility] Comment: Interpretive Data If test is reported as GRAYZONE, new sample should be drawn in two weeks for testing. Current interpretive data was last revised on 2016. Hep B core IgM Nonreactive Nonreactive [facility] Comment: Interpretive Data If test is reported as GRAYZONE, new sample should be drawn for testing. Current interpretive data was last revised on 2016. Hep C Ab Nonreactive Nonreactive [facility] Comment: Interpretive Data Positive results should be confirmed by a molecular method. If positive, a second separately collected sample should be submitted for Hepatitis C Virus (HCV) RNA Detection and Quantitation by Real-Time Reverse Channel Cementer Insole Machine-PCR (RT-PCR). Current interpretive data was last revised on 2016. HepBsAg Nonreactive Nonreactive [facility] Blood specimen (specimen) 03/05/2019 8:26 PM CDT 03/05/2019 8:41 PM CDT Narrative [facility] - 03/06/2019 12:32 PM CDT us Meng Ulrich MD LAB MICROBIOLOGY - GENERAL OR DERABLES Edited Result - Final [facility] Department [place] [address] from Last 3 Months or Most Recently Relevant to Health Maintenance Insurance [facility] Advance Directives For more information, please contact: [phone] Documents on File Type Date Recorded Patient Daily Sales Audit Clerk Expl anation ADVANCE DIRECTIVE 05/03/2019 1:58 PM POWER OF CORRECTIONAL SERGEANT-MEDICAL ADVANCE DIRECTIVE 05/02/2019 5:43 AM POWER OF CORRECTIONAL SERGEANT-MEDICAL ADVANCE DIRECTIVE 04/30/2019 3:45 PM ADVANCE DIRECTIVE 04/27/2019 1:33 PM POWER OF CORRECTIONAL SERGEANT-MEDICAL * Full Code (Latest Code Status on [...] 9:21 PM 03/14/2019 6:56 PM Care Teams Loan Supervisor Relationship Specialty Start Date End Date Victoriano Reid MD PCP - General Family Medicine 06/20/19 Rashaun Peoples MD [id number] [place] [address] Medical Oncologist/Shaper Set Up Operator Medical Oncology 08/07/19 Edelmira Pimentel MD [id number] [place] [address] Surgeon Orthopedic Surgery 09/01/19
--- OUTSIDE RECORDS SUMMARY | 2025-02-24 19:02 | XMS_ITS | Encounter Summary ---
Author Organization [facility] Address [address] [place] [address] Phone Care Team Providers Care Lactation Specialist Name Role Phone Victoriano Reid MD Primary Care Provider [phone] Elva Olivares DO Primary Care Provider [phone] [place] [facility] Unavailable Cabrera Smallwood MD Unavailable [phone] Reason for Visit * Reason Comments Medication Refill Encounter Details Date Type Department Care Team (Late Contact Info) Description 12/20/2023 Refill [facility] - Family Medicine [facility] [address] [place] [address] Victoriano Reid MD [address] [place] [address] Medication Refill Social History Tobacco [...] any clubs o r organizations such as orthodox groups, unions, fraternal or athletic groups, or [...] Total Score - Questions 1-9 0 12/14 [facility] - [...] of Assessment Author 0 12/20/2023 11:52 AM INTERNAL CONTROLS MANAGER ChannelBreeze, System Background * Q1: How often do you have a drink containing alcohol? Answer Date of Assessment Author Never 12/20/2023 11:52 AM INTERNAL CONTROLS MANAGER MDSavet, System Background * Q2: How many drinks containing alcohol do you have on a typical day when you are drinking? Answer Date of Assessment Author Patient does not drink 12/20/2023 11:52 AM INTERNAL CONTROLS MANAGER mVakil - Track [employer] Cases Livejim, System Background * Q3: How often do you have six or more drinks on one occasion? Answer Date of Assessment Author Never 12/20/2023 11:52 AM INTERNAL CONTROLS MANAGER [employer]reeze, System Background documented as of this encounter Miscellaneous Notes * Telephone Encounter - Adelaida Medina RN - 12/20/2023 8:43 AM INTERNAL CONTROLS MANAGER Medication failed the protocol, provider to [...] Victoriano Reid MD [facility] 10/23/23 Telemedicine Miriam Prasad, HOCKEY INSTRUCTOR, GLACIOLOGIST [facility] 03[facility]23 Office Visit Victoriano Reid MD [facility] Ken Showing recent visits within past 365 days and meeting all other requirements Future Appointments Date Type Provider Dept 12/21/23 Appointment [facility] MD [facility] Showing future appointments within next 90 days and meeting all other requirements RNAL CONTROLS MANAGER documented in this encounter Plan of Treatment Upcoming Encounters Date Type Department Care Team (Late st Contact Info) Description 02/25/2025 11:00 AM CDT Clinical Support [facility] UROLOGY #[address] [place] [address] Nurse, [place] [facility] 03/02/2025 8:40 AM CDT Office [facility] - [place] [address] [place] [address] Elva Olivares, DO 2 [facility] [address] [place] [address] 03/03/2025 1:30 PM CDT [facility] [address] [place] [address] Cabrera Yadav MD #2 [facility] [address] [place] [address] Discharge Disposition: Discharged to home or Selfcare 03/24/2025 11:00 AM CDT [facility] 1 [facility] [place] [address] Elva Olivraes, DO 2 [facility] [address] [place] [address] Discharge Disposition: Discharged to home or Selfcare 03/24/2025 12:15 PM CDT [facility] 1 [facility] [place] [address] Elva Olivares, DO [address] [address] documented as of this encounter Visit Diagnoses Diagnosis Neurogenic bladder Neurogenic bladder, NOS 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) documented in this encounter Additional Health Concerns Assessment Noted Time PHQ-9 Depression Total Score: 0 08/15/20 21 10:00 AM CDT documented as of this encounter Care Teams Lactation Specialist Relationship Specialty Start Date End Date Victoriano Reid MD PCP - General Family Medicine 06/19/19 06/29/24 Elva Olivares DO 2 [facility] [address] [address] PCP - General Family Medicine 07/01/24 [place], [facility] Marine Oiler Interventional Pain Physician 11/03/24 Cabrera Yadav MD [address] [address] Consulting Physician Urology 11/07/24 documented as of this encounter
--- OUTSIDE RECORDS SUMMARY | 2025-02-24 19:03 | XMS_ITS | Encounter Summary ---
Author Organization [facility] Address [address] [place] [address] Phone Care Team Providers Care Chief Medical Director Name Role Phone Victoriano Reid MD Primary Care Provider [phone] Malissa Joe RN Unavailable Unavailable Malissa Joe RN Unavailable Unavailable Elva Olivares DO Primary Care Provider [phone] [place] STAIN REMOVER Unavailable Unaabdirizaki Cabrera Dodge MD Unavailable [phone] Encounter Details Date Type Department Care Team (Late st Contact Info) Description 06/28/2022 Lab Requisition [facility] Laboratory Services [address] [place] [id number] Rafi Yun MD #1 [place] [address] Painful micturition, unspecified Social History Tobacco Use [...] Description 02/25/2025 11:00 AM CDT Clinical Support [facility] PHYSICIAN [facility] UROLOGY #[address] [place] [address] Nurse [place] 03/02/2025 8:40 AM CDT Office Visit [facility] [place] [address] [place] [address] Elva Olivares, DO 2 [facility] [address] [place] [address] 03/03/2025 1:30 PM CDT [facility] [address] [place] [address] Cabrera Yadav MD #[address] [address] Discharge Disposition: Discharged to home or Selfcare 03/24/2025 11:00 AM CDT [facility] 1 [place] [address] Elva Olivares, DO 2 [facility] [address] [place] [address] Discharge Disposition: Discharged to home or Selfcare 03/24/2025 12:15 PM CDT [facility] 1 [place] [address] Elva Olivares, DO 2 [facility] [address] [place] [address] documented as of this encounter Procedures Procedure Name Priority Date/Time Associated Diagnosis Comments URINALYSIS REFLEX IF INDICATED BY ABNORMAL RESULTS Routine 06/28/2022 10:45 AM CDT Painful micturition, unspecified CULTURE, URINE Routine 06/28/2022 10:45 AM CDT Painful micturition, unspecified documented in this encounter Results * CULTURE, URINE (06/28/2022 10:45 AM CDT) [facility] CULTURE RESULTS MIXED GROWTH OF 3 OR MORE ORGANISMS, PROBABLE COLLECTION CONTAMINATION, SUGGEST REPEAT URINE CULTURE. 06/29/2022 8:16 PM CDT [facility] Urine Non-Phlebotomy Collection / Unknown 06/28/2022 10:45 AM CDT 06/28/2022 12:42 PM CDT us Rafi Yun MD MICROBIOLOGY - GENERAL ORDERABL ES Final Result [facility] [address] [place] [address], * (ABNORMAL) URINALYSIS REFLEX IF INDICATED BY ABNORMAL RESULTS (06/28/2022 10:45 AM CDT) [facility] SPECIFIC GRAVITY 1.020 1.003 - 1.030 06/28/2022 1:04 PM CDT [facility] UR[facility] PH 6.0 5.0 - 9.0 06/28/2022 1:04 PM CDT [facility] WBC ESTERASE 500 /uL(A) Negative 06/28/2022 1:04 PM CDT [facility] NITRITE Positive(A) Negative 06/28/2022 1:04 PM CDT [facility] PROTEIN, RANDOM URINE 100 mg/dL(A) Negative 06/28/2022 1:04 PM CDT [facility] URINE GLUCOSE, QUAL Negative Negative 06/28/2022 1:04 PM CDT [facility] URINE KETONES Negative Negative 06/28/2022 1:04 PM CDT [facility] UROBILINOGEN Normal Normal mg/dL 06/28/2022 1:04 PM CDT [facility] URINE BLOOD 250 /uL(A) Negative josefa/ul 06/28/2022 1:04 PM CDT [facility] URINALYSIS COLOR Yellow 06/28/20 1:04 PM CDT [facility] URINALYSIS CLARITY Very Cloudy 06/28/2022 1:04 PM CDT [facility] WBC (Urine) Packed(A) Negative, 0-5 /hpf 06/28/2022 1:04 PM CDT [facility] URINE RBC'S Packed(A) Negative, 0-2 /hpf 06/28/2022 1:04 PM CDT [facility] EPITHELIAL CELLS Negative /lpf 06/28/20 1:04 PM CDT [facility] BACTERIA, URINE Few(A) Negative /hpf 06/28/2022 1:04 PM CDT [facility] Urine Non-Phlebotomy Collection / Unknown 06/28/2022 10:45 AM CDT 06/28/2022 12:42 PM CDT us Rafi Yun MD URINE ORDERABLES Final Result [facility] #[address] [place] [address] documented in this encounter Visit Diagnoses Diagnosis Painful micturition, unspecified documented in this encounter Additional Health Concerns Assessment Noted Time PHQ-9 Depression Total Score: 0 08/15/20 21 10:00 AM CDT documented as of this encounter Care Teams Chief Medical Director Relationship Specialty Start Date End Date Victoriano Reid MD PCP - General Family Medicine 06/19/19 06/29/24 Elva Olivares DO 2 [facility] [address] [place] [address] PCP - General Family Medicine 07/01/24 Malissa Joe, RN [place] Nurse Supervisor Forming Department 12/03/23 12/03/23 Malissa Joe, RN [place] Nurse Supervisor Forming Department 12/05/23 12/05/23 [place], [facility] Pallet Repairer Supervisor Forming Department 11/03/24 Cabrera Yadav MD #2 [facility] [address] [place] [address] Consulting Physician Urology 11/07/24 documented as of this encounter
--- OUTSIDE RECORDS SUMMARY | 2025-02-24 19:03 | XMS_ITS | Encounter Summary ---
Author Organization [facility] Address [address] [place] [address] Phone Care Team Providers Care Hearing Screener Name Role Phone Victoriano Reid MD Primary Care Provider [phone] Malissa Joe RN Unavailable Unavailable Malissa Joe RN Unavailable Unavailable Elva Olivares DO Primary Care Provider [phone] H[place] [facility] Unavailable Cabrera Smallwood MD Unavailable [phone] Reason for Visit * Reason Comments Medication Refill Encounter Details Date Type Department Care Team (Late st Contact Info) Description 12/22/2020 Refill [facility] - Family Medicine [facility] #[address] [place] [address] Victoriano Reid MD #[address] [place] [address] Medication Refill Social History Tobacco Use Types [...] 4 months ago Acute cystitis with hematuria [facility] - Victoriano Beck MD 11 months ago Paralysis of both lower limbs (HCC) [facility] - Victoriano Beck MD 1 year ago Uncontrolled type 2 diabetes mellitus with hyperglycemia (HCC) [facility] Victoriano Toledo MD 1 year ago Spinal cord compression due to malignant neoplasm metastatic to spine ([facility]) [facility] - Victoriano Beck MD 1 year ago Annual visit for general adult medical examination with abnormal findings [facility] Victoriano Toledo MD Upcoming Appointments Future Appointments Tomorrow Lorraine Russell, PT [facility] Tomorrow Naa Rios RN [facility] In 6 days Sharonda Carrion PTA [facility] In 1 week Naa Rios RN [facility] In 1 week Sharonda Carrion PTA [facility] In 2 weeks Sharonda Carrion PTA [facility] In 3 weeks Naa Rios RN [facility] In 3 weeks Sharonda Carrion PTA [facility] MOLD FILLING OPERATOR - Recent and Past Visits Recent Visits Date Type Provider Dept 08/06/20 Telemedicine Victoriano Reid MD [facility] 01/22/20 Telemedicine Victor[facility] Reid MD [facility] 10/24/19 Office Visit Victoriano Reid MD [facility] Showing recent visits within past 460 days with a meds authorizing provider and meeting all other requirements Future Appointments No visits were found meeting these conditions. Showing future appointments within next 90 days with a meds authorizing provider and meeting all other requirements DATA ARCHITECT documented in this encounter Plan of Treatment Upcoming Encounters Date Type Department Care Team (Late st Contact Info) Description 02/25/2025 11:00 AM CDT Clinical Support [facility] PHYSICIAN [facility] UROLOGY #[address] [place] [address] Nurse [place] [facility] 03/02/2025 8:40 AM CDT Office Visit [facility] - Family Medicine - [place] [address] [place] [address] Elva Olivares, DO 2 [facility] [address] [place] [address] 03/03/2025 1:30 PM CD[facility] [address] [place] [address] Cabrera Yadav MD #[address] [address] Discharge Disposition: Discharged to home or Selfcare 03/24/2025 11:00 AM CDT [facility] 1 [place] [address] Elva Olivares, DO 2 [facility] [address] [place] [address] Discharge Disposition: Discharged to home or Selfcare 03/24/2025 12:15 PM CDT [facility] [address] [place] [address] Elva Olivares DO [address] [facility] 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 [address] PCP - General Family Medicine 07/01/24 Malissa Joe, RN [place] Nurse Nuclear Medicine Chief Technologist 12/03/23 12/03/23 Malissa Joe, RN [place] Nurse Nuclear Medicine Chief Technologist 12/05/23 12/05/23 [place], [facility] [place] Cooky Packer Nuclear Medicine Chief Technologist 11/03/24 Cabrera Yadav MD #[address] [address] Consulting Physician Urology 11/07/24 documented as of this encounter
--- OUTSIDE RECORDS SUMMARY | 2025-02-24 19:03 | XMS_ITS | Encounter Summary ---
Author Organization [facility] Address [address] [place] [address] Phone Care Team Providers Care Farm Machine Operator Name Role Phone Victoriano Reid MD Primary Care Provider [phone] Malissa Joe RN Unavailable Unavailable Malissa Joe RN Unavailable Unavailable Elva Olivares DO Primary Care Provider [phone] [place] GENERAL ADJUSTER Unavailable Unaabdirizaki Cabrera Dodge MD Unavailable [phone] Encounter Details Date Type Department Care Team (Late st Contact Info) Description 03/18/2021 Lab Requisition [facility] Laboratory Services [address] [place] [id number] Victoriano Reid MD #1 [place] [address] Neuromuscular dysfunction of bladder, unspecified; Acute cystitis [...] 02/25/2025 11:00 AM CDT Clinical Support [facility] PHYSICIAN [facility] UROLOGY #[address] [place] [address] NurseKen Urology 03/02/2025 8:40 AM CDT Office [facility] - [place] [address] [place] [address] Elva Olivares, DO 2 [facility] [address] [place] [address] 03/03/2025 1:30 PM CDT [facility] [place] [address] Cabrera Yadav MD #[address] [address] Discharge Disposition: Discharged to home or Selfcare 03/24/2025 11:00 AM CDT [facility] [address] [facility] [place] [address] Elva Olivares, DO 2 [facility] [address] [place] [address] Discharge Disposition: Discharged to home or Selfcare 03/24/2025 12:15 PM CDT [facility]amm[facility] [place] [address] Elva Olivares, DO 2 [facility] [address] [place] [address] documented as of this encounter Procedures Procedure [...] * CULTURE, URINE (03/19/2021 8:12 PM CDT) [facility] CULTURE RESULTS MIXED GROWTH OF ONE OR MORE DISTAL URETHRAL CONTAMINANTS 03/19/2021 8:12 PM CDT [facility] Urine Non-Phlebotomy Collection / Unknown 03/18/2021 1:41 PM CDT us Victoriano Reid MD MICROBIOLOGY - GENERAL ORDERABLE S Final Result [facility] [address] [place] [address], * (ABNORMAL) URINALYSIS REFLEX IF INDICATED BY ABNORMAL RESULTS (03/18/2021 2:20 PM CDT) [facility] SPECIFIC GRAVITY 1.010 1.003 - 1.030 03/18/2021 2:20 PM CDT [facility] URINE PH 8.0 5.0 - 9.0 03/18/2021 2:20 PM CDT [facility] WBC ESTERASE 500 /uL(A) Negative 03/18/2021 2:20 PM CDT [facility] NITRITE Positive(A) Negative 03/18/2021 2:20 PM CDT [facility] PROTEIN, RANDOM URINE Negative Negative 03/18/2021 2:20 PM CDT [facility] URINE GLUCOSE, QUAL Negative Negative 03/18/2021 2:20 PM CDT [facility] URINE KETONES Negative Negative 03/18/2021 2:20 PM CDT [facility] UROBILINOGEN Normal Normal mg/dL 03/18/2021 2:20 PM CDT [facility] URINE BILIRUBIN Negative Negative 2:20 PM CDT [facility] URINE BLOOD 150 /uL(A) Negative josefa/ul 03/18/2021 2:20 PM CDT [facility] URINALYSIS COLOR Straw 03/18/2021 2:20 PM CDT [facility] URINALYSIS CLARITY Very Cloudy 03/18/2021 2:20 PM CDT [facility] WBC (Urine) 11-20(A) Negative, 0-5 /hpf 03/18/2021 2:20 PM CDT [facility] URINE RBC'S 6-10(A) Negative, 0-2 /hpf 03/18/2021 2:20 PM CDT [facility] EPITHELIAL CELLS Small amount /lpf 03/18/2021 2:20 PM CDT [facility] BACTERIA, URINE Moderate(A) Negative /hpf 03/18/2021 2:20 PM CDT [facility] URINE MUCOUS Many 03/18/2021 2:20 PM CDT [facility] CRYSTALS Amorphous phosphates 03/18/2021 2:20 PM CDT [facility] Urine Non-Phlebotomy Collection / Unknown 03/18/2021 1:41 PM CDT us Victoriano Reid MD URINE ORDERABLES Final Result [facility] #[address] [place] [address] documented in this encounter Visit Diagnoses Diagnosis Neuromuscular dysfunction of bladder, unspecified Acute cystitis without hematuria Acute cystitis Sepsis, unspecified organism (HCC) documented in this encounter Additional Health Concerns Infection Onset Date Last Indicated Resolved Time 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 06/05/2019 04/15/2021 7:28 AM CDT Assessment Noted Time PHQ-9 Depression Total Score: 0 10/24/19 20 11:16 AM CONTRACTING SUPPORT SPECIALIST documented as of this encounter Care Teams Farm Machine Operator Relationship Specialty Start Date End Date Victoriano Reid MD PCP - General Family Medicine 06/19/19 06/29/24 Elva Olivares DO 2 [facility] [address] [place] [address] PCP - General Family Medicine 07/01/24 Malissa Joe, RN [place] Nurse Public School Teacher 12/03/23 12/03/23 Malissa Joe, RN [place] Nurse Public School Teacher 12/05/23 12/05/23 [place], [facility] [place] Job Interviewer Public School Teacher 11/03/24 Cabrera Yadav MD #2 [facility] [address] [place] [address] Consulting Physician Urology 11/07/24 documented as of this encounter
--- OUTSIDE RECORDS SUMMARY | 2025-02-24 19:03 | XMS_ITS | Encounter Summary ---
Author Organization [facility] Address [address] [place] [address] Phone Care Team Providers Care Phys Asst Name Role Phone Victoriano Reid MD Primary Care Provider [phone] Malissa Joe RN Unavailable Unavailable Malissa Joe RN Unavailable Unavailable Elva Olivares DO Primary Care Provider [phone] [place] WOOD INSPECTOR Unavailable Cabrera Smallwood MD Unavailable [phone] Reason for Visit * Reason Comments Medication Refill Encounter Details Date Type Department Care Team (Late st Contact Info) Description 10/02/2020 Refill [facility] - Family Medicine [facility] #[address] [place] [phone] Victoriano Reid MD #1 [place] [address] Medication Refill Social History Tobacco Use Types [...] Visits Recent Outpatient Visits 1 month ago [facility] Victoriano Toledo MD 8 months ago Paralysis of both lower limbs (HCC) [facility] Victoriano Toledo MD 11 months ago Uncontrolled type 2 diabetes mellitus with hyperglycemia (HCC) [facility] Victoriano Toledo MD 1 year ago 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) [facility] Victoriano Toledo MD 1 year ago Annual visit for general adult medical examination with abnormal findings [facility] Victoriano Toledo MD Upcoming Appointments Future Appointments In 3 days Sharonda Carrion, FRANCIS [facility] In 1 week Naa Rios RN [facility] In 1 week Sharonda Carrion PTA [facility] In 2 weeks Sharonda Carrion, SURVEILLANCE INSPECTOR [facility] In 2 weeks Sharonda Carrion, SURVEILLANCE INSPECTOR [facility] In 3 weeks Naa Rios RN [facility] In 3 weeks Lorraine [place], JIM [facility] In 3 weeks Sharonda Carrion, SURVEILLANCE INSPECTOR [facility] In 1 month Sharonda Carrion, SURVEILLANCE INSPECTOR [facility] In 1 month Sharonda Carrion, SURVEILLANCE INSPECTOR [facility] In 1 month Naa Rios RN [facility] In 1 month Sharonda Carrion, SURVEILLANCE INSPECTOR [facility] In 1 month Sharonda Carrion, SURVEILLANCE INSPECTOR [facility] In 1 month Lorraine [place], PT [facility] In 1 month Lorraine [place], PT [facility] In 1 month Naa Rios RN [facility] SERVICE STATION MANAGER - Recent and Past Visits Recent Visits Date Type Provider Dept 08/06/20 Telemedicine Victoriano Reid MD [facility] 01/22/20 Telemedicine Victoriano Reid MD [facility] 10/24/19 Office Visit Victoriano Reid MD [facility] 07/17/19 Office Visit Victor[facility] MD [facility] Showing recent visits within past 460 days with a meds authorizing provider and meeting all other requirements Future Appointments No visits were found meeting these conditions. Showing future appointments within next 90 days with a meds authorizing provider and meeting all other requirements SITIONAL LIVING SPECIALIST documented in this encounter Plan of Treatment Upcoming Encounters Date Type Department Care Team (Late st Contact Info) Description 02/25/2025 11:00 AM CDT Clinical Support [facility] UROLOGY #[address] [place] [address] Nurse, [facility] 03/02/2025 8:40 AM CDT Office Visit [facility] - Family Medicine - [place] #2 [place] [address] Elva Olivares, DO 2 [facility]. [address] [place] [address] 03/03/2025 1:30 PM CDT [facility] [address] [place] [address] Cabrera Yadav MD #2 [facility] [address] [place] [address] Discharge Disposition: Discharged to home or Selfcare 03/24/2025 11:00 AM CDT [facility] 1 [place] [address] Elva Olivares, DO [address] [address] Discharge Disposition: Discharged to home or Selfcare 03/24/2025 12:15 PM CDT [facility] M[facility] 1 [place] [address] Elva Olivares, DO [address] [address] documented as of this encounter Visit Diagnoses Not on filedocumented in this encounter Additional Health Concerns Infection Onset Date Last Indicated Resolved Time 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 06/05/2019 04/15/2021 7:28 AM CDT Assessment Noted Time PHQ-9 Depression Total Score: 0 10/24/19 20 11:16 AM TRANSITIONAL LIVING SPECIALIST documented as of this encounter Care Teams Phys Asst Relationship Specialty Start Date End Date Victoriano Reid MD PCP - General Family Medicine 06/19/19 06/29/24 Elva Olivares DO [address] [address] PCP - General Family Medicine 07/01/24 Malissa Joe, RN [place] Nurse Test Department Helper 12/03/23 12/03/23 Malissa Joe RN [place] Nurse Test Department Helper 12/05/23 12/05/23 [place], WOOD INSPECTOR [place] Mechanical Design Drafter Test Department Helper 11/03/24 Cabrera Yadav MD #[address] [address] Consulting Physician Urology 11/07/24 documented as of this encounter
--- OUTSIDE RECORDS SUMMARY | 2025-02-24 19:03 | XMS_ITS | Clinical Summary ---
Author Organization [facility] Address [address] [place] [address] Phone Care Team Providers Care Robotype Operator Name Role Phone EliseElva Becky GARCIA Primary Care Provider [phone] Cabrera Yadav MD Unavailable [phone] Allergies Active Allergy Reactions Criticality Noted Date [...] 2 diabetes mellitus with hyperglycemia ([facility]) USE PRIOR TO TESTING BLOOD SUGAR AND FOR INSULIN INJECTIONS, TEST 4 TIMES PER DAY 100 Each 6 023 Active Misc. Devices MiscIndications: Spinal cord compression due to malignant neoplasm metastatic to spine ([facility]) Supply and instructions: please assess and repair pump on the air mattress. 1 Each 024 Active Misc. Devices MiscIndications: Spinal cord compression due to malignant neoplasm metastatic to spine ([facility]) Supply and instructions: 1 Each 024 Active gabapentin (NEURONTIN) 300 MG CapsuleIndicatio ns:Neuropathic Pain Take 2 Capsules by mouth every 8 hours. 270 Capsule 1 Active Additional Information Patient taking differently: 300 mgOral EVERY 8 HOURS, Indications: Neuropathic Pain, Reported on 02/02/2025 loperamide (IMODIUM) 2 MG CapsuleIndicatio ns:Diarrhea Take 1 Capsule by mouth 4 times daily as needed for Diarrhea. Take 2 caps = 4mg after first loose stool then take 1 cap = 2mg after each subsequent loose stool. Do not exceed 16 mg = 8 caps in 24 hours. As needed for diarrhea 100 Capsule Active nystatin 746373 UNIT/GM Powder Apply 3 times daily. Apply [...] daily. Left shoulder 100 g 5 Active Additional Information Patient not taking.Reported on 02/02/2025 Citric Ft-Bzzvqwcubat-Q g Carb (Renacidin) SolutionIndicati ons:Urinary Catheter Irrigation [...] TWICE DAILY 180 Capsule 1 025 Active baclofen (LIORESAL) 10 MG Tablet TAKE 1 TABLET BY MOUTH THREE TIMES DAILY NEEDED FOR MUSCLE SPASMS 90 Tablet 025 Active montelukast (SINGULAIR) 10 MG Tablet Take 1 Tablet by mouth every evening. 90 Tablet 1 Active Additional Information Patient not taking.Reported on 02/02/2025 ergocalciferol (VITAMIN D) 33528 UNIT CapsuleIndicatio ns:Vitamin D Deficiency TAKE 1 CAPSULE BY MOUTH 1 TIME A WEEK 4 Capsule 025 Active acyclovir (ZOVIRAX) 400 MG Tablet Take 1 Tablet by mouth 3 times daily. 90 Tablet 1 025 Active ergocalciferol (VITAMIN D) 17898 UNIT CapsuleIndicatio ns:Vitamin D Deficiency TAKE 1 CAPSULE BY MOUTH 1 TIME A WEEK 12 Capsule 3 024 2024 Discontinued acyclovir (ZOVIRAX) 400 MG Tablet TAKE 1 TABLET BY MOUTH THREE TIMES DAILY 90 Tablet 1 025 2024 Discontinued(R eorder) Active Problems Problem Noted [...] Encounters Date Type Department Care Team Description 02/23/2025 Refill [facility] #2 [place] [address] Elva Olivares, DO Medication Refill 02/18/20[facility] [place] [address] Victoriano Reid MD Medication Refill 02/17/2025 Hospital Encounter [facility] Periop 1 [place] [address] Cabrera Yadav MD 02/16/[address] [facility] UR[facility]Y #2 [place] [address] Cabrera Yadav MD 02/02/2025 Travel 01/19/2025 Refill [facility] #2 [place] [address] Elva Olivares, DO Medication Refill 01/14/2025 Refill [facility] #2 [place] [address] Victoriano Reid MD Medication Refill 01/14/2025 Travel 01/09/[address] [facility] UROLOGY #[address] [place] [address] Cabrera Yadav MD 01/08/[address] [facility] UROLOGY #[address] [place] [address] Cabrera Yadav MD 01/02/2025 10:30 AM CDT Procedure Visit [facility] UROLOGY #[address] [place] [address] Cabrera Yadav MD Neurogenic bladder (Primary Dx); UTI symptoms; Gross hematuria Discharge Disposition: Discharged to home or Selfcare 01/02/2025 Travel 12/19/[address] [address] Elva Olivares, DO Care Management 12/09/2024 Refill [facility] #2 [place] [address] Victoriano Reid MD Medication Refill from Last 3 Months Family History Medical History Relation Name Comments Asthma Father Ray Cancer Father Ray PROSTATE, SKIN, LUNG Chronic Obstructive Pulmonary Disease Father Ray Arthritis Mother Debra Cancer Mother Debra THROAT Diabetes Mother Debra Heart Disease Mother Debra Relation Name Status Comments Father Ray Mother Edbra Social History Tobacco Use Types Packs/Day Years Used Date Smoking Tobacco: Every Day Cigarettes 2 51.4 Started: 1971 Smokeless Tobacco: Never Tobacco Cessation:Ready to Q uit: Not Asked; Counseling Given: Not Answered Alcohol Use Standard Drinks/Week Comments Not Currently 0 (1 standard drink = 0.6 oz pur e alcohol) [facility] Utilities Answer Date Recorded In the past 12 months has th e electric, gas, oil, or water company [...] Total Score - Questions 1-9 0 12/14 [facility] of Occupat ional Health - Occupational Stress [...] in a correction (including now)? No 12/20/2023 Housing Stability Vital Sign Answer Saleem e Recorded In the last 12 months, was t here a time when you were not able to pay the mortgage or rent on time? No 04/15/2024 Number of Times Moved in the Last Year Not on fi le 04/15/2024 At any time in the past [address] [facility], were you homeless or living in a correction (including now)? No 04/15/2024 Education Answer Date [...] 36.2 C (97.2 F) 10/16/2024 12:38 PM COLLECTION SYSTEMS MODELER Respiratory Rate 18 11/07/2024 12:31 PM COLLECTION SYSTEMS MODELER Oxygen Saturation 93% 01/02/2025 10:41 AM CDT Inhaled Oxygen Concentration - - Weight 79.4 kg (175 lb) 02/02/2025 1:00 PM CDT Height 167.6 cm (5' 6 ) 02/02/2025 1:00 PM CDT Body Mass Index 28.25 02/02/2025 1:00 PM CDT Plan of Treatment Upcoming Encounters Date Type Department Care Team (Late st Contact Info) Description 02/25/2025 11:00 AM CDT Clinical Support [facility] #2 [place] [address] Nurse, [facility] 03/02/2025 8:40 AM CDT Office [facility] - Family [facility] - [place] #2 [place] [address] Elva Olivares, DO 2 [facility] [address] [place] [address] 03/03/2025 1:30 PM CD[facility] 1 [facility] [place] [address] Cabrera Yadav MD #[address] [address] Discharge Disposition: Discharged to home or Selfcare 03/24/2025 11:00 AM CDT [facility] 1 [place] [address] Elva Olivares, DO 2 [facility] [address] [place] [address] Discharge Disposition: Discharged to home or Selfcare 03/24/2025 12:15 PM CDT Appointment [facility] Mammography [address] [place] [address] Elva Olivares, DO 2 [facility] [address] [place] [address] Health Maintenance Due Date Last Done Comments [...] on patient's age to complete this topic Human Papillomavirus (HPV) Immunization Aged Out No longer eligible based on patient's age to complete this topic Meningococcal Immunization (ACWY) Aged Out No longer eligible based on patient's age to complete this topic Rotavirus Immunization Aged Out No lo nger eligible based on patient's age to complete this topic Procedures Procedure Name Priority Date/Time Associated Diagnosis Comments PATHOLOGY CYTOLOGY NON-SPRAY II PAINTER Routine 01/02/2025 11:01 AM CDT Neurogenic bladder UTI symptoms CULTURE, URINE Routine 01/02/2025 11:01 AM CDT Neurogenic bladder UTI symptoms UR MICROALBUMIN/CREATIN INE RATIO RANDOM Routine 05/27/2024 1:00 PM CDT Type 2 diabetes mellitus without complications (HCC) Other termite control service representative (current) drug therapy POCT GLYCOSYLATED HEMOGLOBIN Routine 04/15/2024 11:24 AM CDT Type 2 diabetes mellitus without complication, without long-term current use of insulin (HCC) from Last 3 Months or Most Recently Relevant to Health Maintenance Results * PATHOLOGY CYTOLOGY NON-SPRAY II PAINTER (01/02/2025 11:01 AM CDT) Case Report Medical Cytology Report Case: [id number] Authorizing Provider: Cabrera Yadav MD Collected: 01/02/2025 11:01 AM Ordering Location: [facility] Received: 01/02/2025 11:01 AM GROUP UROLOGY Pathologist: Azra Moncada MD PhD Specimen: Urine Bladder 01/06/2025 10:31 AM CDT [facility] FINAL DIAGNOSIS Urine for Cytology: - Less than optimal due to degeneration - Negative for high-grade urothelial carcinoma - Degenerated epithelial cells, neutrophils, and debris 01/06/2025 10:31 AM CDT [facility] at 1031 CDT Gross Description [...] 95% alcohol. MH/dv 01/06/2025 10:31 AM CDT [facility] Other (Urine Bladder) Non-Phlebotomy Collection / Unknown 01/02/2025 11:01 AM CDT 01/02/2025 11:01 AM CDT us Cabrera Ward MD PATHOLOGY/CYTOLOGY ORDERABLES Final Result [facility] #1 [facility] [place] [address] * CULTURE, URINE (01/02/2025 11:01 AM CDT) CULTURE RESULTS KLEBSIELLA OXYTOCA 01/05/2025 4:05 PM CDT [facility] CULTURE RESULTS ESCHERICHIA COLI 01/05/2025 4:05 PM CDT [facility] CULTURE RESULTS ENTEROCOCCUS FAECALIS 01/05/2025 4:05 PM CDT [facility] Culture (Pre-Op Catheter) Non-Phlebotomy Collection / Unknown 01/02/2025 11:01 AM CDT 01/02/2025 11:[address] [facility] - 01/05/2025 4:05 PM CDT Susceptibility not [...] [facility] VITEK IIB 2 mcg/ml: Susceptible us [facility] MD MICROBIOLOGY - GENERAL ORDERAB LES Final Result [facility] [address] [place] [address], [place] * (ABNORMAL) UR MICROALBUMIN/CREATININE RATIO RANDOM (05/27/2024 1:00 PM CDT) RAN UR MICROALBUMIN 0.89 mg/dL 05/27/2024 3:00 PM CDT [facility] Comment:No reference range h as been established. Consider Clinical Correlation. CREATININE URINE 7.4 mg/dL 05/27/20 3:00 PM CDT [facility] Comment:No reference range h as been established. Consider Clinical Correlation. ALB/CREAT RATIO 120(H) 0 - 30 mg/g CRE 05/27/2024 3:00 PM CDT [facility] Urine Non-Phlebotomy Collection / Unknown 05/27/2024 1:00 PM CDT 05/27/2024 2:30 PM CDT Singh Myrick APRN, CNP URINE ORDERABLES Final Result [facility] #1 [place] [address] * POCT GLYCOSYLATED HEMOGLOBIN (04/15/2024 11:24 AM CDT) HGB-A1C 6.0 4 - 6 % Blood 04/15/2024 11:2 4 AM CDT Singh Myrick APRN, CNP POINT OF CARE TE STING (MANUAL) Final Result from Last 3 Months or Most Recently Relevant to Health Maintenance Insurance MEDICAID [place] MEDICARE C [employer] Advance Directives * Full Code (Latest Code Status on File) Date Activated Date Inactivated Comments 04/10/2019 2:14 PM Care Teams Robotype Operator Relationship Specialty Start Date End Date Elva Olivares DO 2 [facility]. [address] [place] [address] PCP - General Family Medicine 07/01/24 Cabrera Yadav MD #2 [facility] [address] [place] [address] Consulting Physician Urology 11/07/24
--- OUTSIDE RECORDS SUMMARY | 2025-02-24 19:03 | XMS_ITS | Encounter Summary ---
Author Organization [facility] Address [address] [facility] [place] [address] Phone Care Team Providers Care Apprentice Cook Name Role Phone Victoriano Reid MD Primary Care Provider [phone] Malissa Joe RN Unavailable Unavailable Malissa Joe RN Unavailable Unavailable Elva Olivares DO Primary Care Provider [phone] [place] SKEIN YARN DYER HELPER Unavailable Unaabdirizaki Cabrera Dodge MD Unavailable [phone] Encounter Details Date Type Department Care Team (Late st Contact Info) Description 07/05/2023 Lab Requisition [facility] Laboratory Services 1 [place] [id number] Victoriano Reid MD #1 [place] [address] Encounter for fitting and adjustment of urinary [...] Support [facility] PHYSICIAN [facility] UROLOGY #[address] [place] [address] NurseKen Urology 03/02/2025 8:40 AM CDT Office Visit [facility] - [place] [address] [address] Elva Olivares, DO 2 [facility] [address] [place] [address] 03/03/2025 1:30 PM CDT [facility] 1 [facility] [place] [address] Cabrera Yadav MD #[address] [address] Discharge Disposition: Discharged to home or Selfcare 03/24/2025 11:00 AM CDT [facility] Ultrasound 1 [facility] [place] [address] Elva Olivares, DO 2 [facility] BENOIT [facility] [address] [place] [address] Discharge Disposition: Discharged to home or Selfcare 03/24/2025 12:15 PM CDT [facility] Mamm[facility] 1 [facility] [place] [address] Elva Olivares, DO 2 [facility] [address] [place] [address] documented as of this encounter Procedures Procedure [...] REPEAT URINE CULTURE. 07/06/2023 10:57 PM CDT [facility] Culture Non-Phlebotomy Collection / Unknown 07/05/2023 2:20 PM CDT 07/05/2023 1:07 PM CDT Narrative [facility] - 07/06/2023 10:57 PM CDT Susceptibility not performed on enterococcus species. Due to high achievable concentrations in urine, Ampicillin is the drug of choice for treating infections limited to the lower urinary tract (regardless of Vancomycin susceptibility). For allergic patients, Nitrofurantoin or a quinolone may be substituted. us Victoriano Reid MD MICROBIOLOGY - GENERAL ORDERABLE S Final Result [facility] [address] [place] [address], documented in this encounter Visit Diagnoses Diagnosis Encounter for fitting and adjustment of urinary device Personal history of urinary (tract) infections documented in this encounter Additional Health Concerns Assessment Noted Time PHQ-9 Depression Total Score: 0 08/15/20 10:00 AM CDT documented as of this encounter Care Teams Apprentice Cook Relationship Specialty Start Date End Date Victoriano Reid MD PCP - General Family Medicine 06/19/19 06/29/24 Elva Olivares DO [address] [place] [address] PCP - General Family Medicine 07/01/24 Malissa Joe, RN [place] Nurse Box Lining Machine Operator 12/03/23 12/03/23 Malissa Joe RN [place] Nurse Box Lining Machine Operator 12/05/23 12/05/23 [place], [facility] Director Data Analytics Box Lining Machine Operator 11/03/24 Cabrera Yadav MD #[address] [address] Consulting Physician Urology 11/07/24 documented as of this encounter
--- OUTSIDE RECORDS SUMMARY | 2025-02-24 19:03 | XMS_ITS | Encounter Summary ---
Author Organization [facility] Address [address] [place] [address] Phone Care Team Providers Care Winder Fixer Name Role Phone Victoriano Reid MD Primary Care Provider [phone] Malissa Joe RN Unavailable Unavailable Malissa Joe RN Unavailable Unavailable Elva Olivares DO Primary Care Provider [phone] Hinton GWOT IA/ILO INTELLIGENCE SUPPORT Unavailable Cabrera Smallwood MD Unavailable [phone] Reason for Visit * Reason Comments Medication Refill Encounter Details Date Type Department Care Team (Late st Contact Info) Description 09/30/2020 Refill [facility] Medical Group - Family Medicine [facility] #2 [place] [phone] Victoriano Reid MD #1 [place] [address] Medication Refill Social History Tobacco Use Types [...] discontinued on 08/06/2020 by Victoriano Reid MD M MAN documented in this encounter Plan of Treatment Upcoming Encounters Date Type Department Care Team (Late st Contact Info) Description 02/25/2025 11:00 AM CDT Clinical Support [facility] PHYSICIAN GROUP UROLOGY #2 [place] [address] Nurse, [place] [facility] 03/02/2025 8:40 AM CDT Office Visit [facility] - [place] #2 [place] [address] Elva Olivares, DO 2 [facility] 205 [place] [address] 03/03/2025 1:30 PM CDT [facility]ointment [facility] 1 [facility] [place] [address] Cabrera Yadav MD #[address] [address] Discharge Disposition: Discharged to home or Selfcare 03/24/2025 11:00 AM CDT Appointment [facility] Ultrasound 1 [place] [address] Elva Olivares, DO 2 [facility] [address] [place] [address] Discharge Disposition: Discharged to home or Selfcare 03/24/2025 12:15 PM CDT Appointment [facility] Mammography [address] [place] [address] Elva Olivares DO 2 [facility] [address] [place] [address] documented as of this encounter Visit Diagnoses Diagnosis Vitamin D deficiency Unspecified vitamin D deficiency documented in this encounter Additional Health Concerns Infection Onset Date Last Indicated Resolved Time 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 06/05/2019 04/15/2021 7:28 AM CDT Assessment Noted Time PHQ-9 Depression Total Score: 0 10/24/19 20 11:16 AM BROOM MAN documented as of this encounter Care Teams Winder Fixer Relationship Specialty Start Date End Date Victoriano Reid MD PCP - General Family Medicine 06/19/19 06/29/24 Elva Olivares DO 2 [facility] [address] [address] PCP - General Family Medicine 07/01/24 Malissa Joe, RN [place] Nurse Lead Informatica Developer 12/03/23 12/03/23 Malissa Jeo, RN [place] Nurse Lead Informatica Developer 12/05/23 12/05/23 [place], [facility] [place] Wireless Technician Lead Informatica Developer 11/03/24 Cabrera Yadav MD [address] [address] Consulting Physician Urology 11/07/24 documented as of this encounter
--- OUTSIDE RECORDS SUMMARY | 2025-02-24 19:03 | XMS_ITS | Encounter Summary ---
Author Organization [facility] Address [address] [place] [address] Phone Care Team Providers Care Wet Sander Name Role Phone Victoriano Reid MD Primary Care Provider [phone] Malissa Joe RN Unavailable Unavailable Malissa Joe RN Unavailable Unavailable Elva Olivares DO Primary Care Provider [phone] [place] POULTRY SLAUGHTERER Unavailable Cabrera Smallwood MD Unavailable [phone] Reason for Visit * Reason Comments Medication Refill Encounter Details Date Type Department Care Team (Late st Contact Info) Description 06/08/2022 Refill [facility] Medical Group - Family Medicine [facility] #2 [place] [address] Victoriano Reid MD #1 [place] [address] Medication Refill Social History Tobacco Use Types [...] [place] 08/15/21 Office Visit [facility] MD [facility] Showing recent visits within past 365 [...] Dept 01/05/22 Office Visit Nia Abbott PAC [facility] Ken 08/15/21 Office Visit Victoriano Reid MD [facility] Showing recent visits within past 365 [...] PHYSICIAN GROUP UROLOGY #[address] [place] [address] Nurse, Ken Urology 03/02/2025 8:40 AM CDT Office Visit [facility] Medical Group - Family Medicine - [place] #[address] [place] [address] Elva Olivares, DO 2 [facility] [address] [place] [address] 03/03/2025 1:30 PM CDT [facility] 1 [facility] [place] [address] Cabrera Yadav MD #2 [facility] [address] [place] [address] Discharge Disposition: Discharged to home or Selfcare 03/24/2025 11:00 AM CDT [facility]ment [facility] Ultrasound 1 [place] [address] Elva Olivares, DO 2 [facility] [address] [place] [address] Discharge Disposition: Discharged to home or Selfcare 03/24/2025 12:15 PM CDT [facility]ment [facility] Mammography 1 [place] [address] Elva Olivares DO 2 [facility] [address] [place] [address] documented as of this encounter Visit Diagnoses Diagnosis 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) documented in this encounter Additional Health Concerns Assessment Noted Time PHQ-9 Depression Total Score: 0 08/15/20 21 10:00 AM CDT documented as of this encounter Care Teams Wet Sander Relationship Specialty Start Date End Date Victoriano Reid MD PCP - General Family Medicine 06/19/19 06/29/24 Elva Olivares DO 2 [facility] [address] [place] [address] PCP - General Family Medicine 07/01/24 Malissa Joe, RN [place] Nurse Nuclear Plant Instrument Technician 12/03/23 12/03/23 Malissa Joe, RN [place] Nurse Nuclear Plant Instrument Technician 12/05/23 12/05/23 [place], [facility] Family Therapist Nuclear Plant Instrument Technician 11/03/24 Cabrera Yadav MD #[address] [address] Consulting Physician Urology 11/07/24 documented as of this encounter
--- OUTSIDE RECORDS SUMMARY | 2025-02-24 19:03 | XMS_ITS | Encounter Summary ---
Author Organization [facility] Address [address] [place] [address] Phone Care Team Providers Care Herbicide Sprayer Name Role Phone Victoriano Reid MD Primary Care Provider [phone] Malissa Joe RN Unavailable Unavailable Malissa Joe RN Unavailable Unavailable Elva Olivares DO Primary Care Provider [phone] [place] SINGE WINDER Unavailable Unaabdirizaki Cabrera Dodge MD Unavailable [phone] Encounter Details Date Type Department Care Team (Late st Contact Info) Description 02/07/[address] [facility] Laboratory Services 1 [place] [address] Victoriano Reid MD #1 [place] [address] Neuromuscular dysfunction of bladder, unspecified Social History [...] Description 02/25/2025 11:00 AM CDT Clinical Support [facility] UROLOGY #2 [place] [address] Nurse Ken Urology 03/02/2025 8:40 AM CDT Office Visit [facility] Medical Group - Family Medicine - [place] #2 [place] [address] Elva Olivares, DO 2 [facility] [address] [place] [address] 03/03/2025 1:30 PM CDT [facility] [address] [place] [address] Cabrera Yadav MD #[address] [address] Discharge Disposition: Discharged to home or Selfcare 03/24/2025 11:00 AM CDT [facility] Ul[facility]ound 1 [place] [address] Elva Olivares, DO 2 [facility] [address] [place] [address] Discharge Disposition: Discharged to home or Selfcare 03/24/2025 12:15 PM CDT [facility] Mammography 1 [place] [address] Elva Olivares, DO 2 [facility] [address] [place] [address] documented as of this encounter Procedures Procedure Name Priority Date/Time Associated Diagnosis Comments URINALYSIS REFLEX IF INDICATED BY ABNORMAL RESULTS Routine 02/07/2021 3:15 PM CDT Neuromuscular dysfunction of bladder, unspecified CULTURE, URINE Routine 02/07/2021 3:15 PM CDT Neuromuscular dysfunction of bladder, unspecified documented in this encounter Results * CULTURE, URINE (02/07/2021 3:15 PM CDT) CULTURE RESULTS ESCHERICHIA COLI 02/10/2021 9:24 AM CDT [facility] Comment:PRESUMPTIVE IDENTIFI CATION CULTURE RESULTS ALSO MIXED GROWTH OF DISTAL URETHRA CONTAMINANTS. 02/10/2021 9:24 AM CDT [facility] Urine Non-Phlebotomy Collection / Unknown 02/07/2021 [...] [facility] I IB <=20 mcg/ml: Susceptible Victoriano Reid MD MICROBIOLOGY - GENERAL ORDERABLE S Final Result [facility] [address] [place] [address], * (ABNORMAL) URINALYSIS REFLEX IF INDICATED BY ABNORMAL RESULTS (02/07/2021 3:15 PM CDT) SPECIFIC GRAVITY 1.010 1.003 - 1.030 02/07/2021 5:23 PM CDT [facility] URINE PH 7.0 5.0 - 9.0 02/07/2021 5:23 PM CDT [facility] WBC ESTERASE 500 /uL(A) Negative 02/07/2021 5:23 PM CDT [facility] NITRITE Positive(A) Negative 02/07/2021 5:23 PM CDT [facility] PROTEIN, RANDOM URINE 100 mg/dL(A) Negative 02/07/2021 5:23 PM CDT [facility] URINE GLUCOSE, QUAL Negative Negative 02/07/2021 5:23 PM CDT [facility] URINE KETONES Negative Negative 02/07/2021 5:23 PM CDT [facility] UROBILINOGEN Normal Normal mg/dL 02/07/2021 5:23 PM CDT [facility] URINE BILIRUBIN Negative Negative 5:23 PM CDT [facility] URINE BLOOD 250 /uL(A) Negative josefa/ul 02/07/2021 5:23 PM CDT [facility] URINALYSIS COLOR Yellow 02/08/20 5:23 PM CDT [facility] URINALYSIS CLARITY Very Cloudy 02/07/2021 5:23 PM CDT [facility] WBC (Urine) 51-150(A) Negative, 0-5 /hpf 02/07/2021 5:23 PM CDT [facility] URINE RBC'S 21-50(A) Negative, 0-2 /hpf 02/07/2021 5:23 PM CDT [facility] EPITHELIAL CELLS Moderate amount /lpf 02/07/2021 5:23 PM CDT [facility] BACTERIA, URINE Packed(A) Negative /hpf 02/07/2021 5:23 PM CDT [facility] Urine Non-Phlebotomy Collection / Unknown 02/07/2021 3:15 PM CDT 02/07/2021 5:09 PM CDT Victoriano Reid MD URINE ORDERABLES Final Result [facility] LAB #1 [place] [address] documented in this encounter Visit Diagnoses Diagnosis Neuromuscular dysfunction of bladder, unspecified documented in this encounter Additional Health Concerns Infection Onset Date Last Indicated Resolved Time 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 06/05/2019 04/15/2021 7:28 AM CDT Assessment Noted Time PHQ-9 Depression Total Score: 0 10/24/19 20 11:16 AM ONLINE FACILITATOR documented as of this encounter Care Teams Herbicide Sprayer Relationship Specialty Start Date End Date Victoriano Reid MD PCP - General Family Medicine 06/19/19 06/29/24 Elva Olivares DO 2 [facility] [address] [place] [address] PCP - General Family Medicine 07/01/24 Malissa Joe, RN [place] Nurse Commissioning Specialist 12/03/23 12/03/23 Malissa Joe, RN [place] Nurse Commissioning Specialist 12/05/23 12/05/23 [place], SINGE WINDER [place] District Sales Representative Commissioning Specialist 11/03/24 Cabrera Yadav MD #[address] [address] Consulting Physician Urology 11/07/24 documented as of this encounter
--- OUTSIDE RECORDS SUMMARY | 2025-02-24 19:03 | XMS_ITS | Encounter Summary ---
Author Organization [facility] Address [address] [facility] [place] [address] Phone Care Team Providers Care Molding Utility Worker Name Role Phone Victoriano Reid MD Primary Care Provider Malissa Joe RN Unavailable Unavailable Malissa Joe RN Unavailable Unavailable Elva Olivares DO Primary Care Provider [phone] [place] AIR SAMPLING AND MONITORING Unavailable UnaCabrera Nevarez MD Unavailable [phone] Reason for Visit * Reason Onset Date Comments Results 10/25/2020 Encounter Details Date Type Department Care Team (Late st Contact Info) Description 10/25/2020 Telephone [facility] [address] [place] [address] Victoriano Reid MD #1 [place] [address] Results Social History Tobacco Use Types Packs/Day [...] RN - 10/25/2020 5:46 PM CST lmom INE STAKER * Telephone Encounter - Victoriano Reid MD - 10/25/2020 4:56 PM CST The urine is not showing quite enough to be infection but I will treat her as I know that her urinewas very foul smelling and has a lot of sediment and this is from the bacteria. I will send in an antibiotic. INE STAKER * Telephone Encounter - Jelena Cotto RN - 10/25/2020 4:04 PM CST Patient's daughter calling for results from UA and Urine culture from 10/22/20. INE STAKER documented in this encounter Plan of Treatment Upcoming Encounters Date Type Department Care Team (Late st Contact Info) Description 02/25/2025 11:00 AM CDT Clinical Support [facility] PHYSICIAN GROUP UROLOGY #2 [place] [address] Nurse, Ken Urology 03/02/2025 8:40 AM CDT Office Visit [facility] #2 [place] [address] Elva Olivares, DO 2 [facility]ENOIT [facility]. [address] [place] [address] 03/03/2025 1:30 PM CDT [facility] 1 [facility] [place] [address] Cabrera Yadav MD #[address] [facility] [address] [place] [address] Discharge Disposition: Discharged to home or Selfcare 03/24/2025 11:00 AM CDT [facility] Ul[facility] 1 [facility] [place] [address] Elva Olivares, DO 2 [facility] BENOIT [facility] [address] [place] [address] Discharge Disposition: Discharged to home or Selfcare 03/24/2025 12:15 PM CDT [facility] M[facility] 1 [facility] [place] [address] Elva Olivares, DO 2 [facility] [address] [place] [address] documented as of this encounter Visit Diagnoses Not on filedocumented in this encounter Additional Health Concerns Infection Onset Date Last Indicated Resolved Time 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 06/05/2019 04/15/2021 7:28 AM CDT Assessment Noted Time PHQ-9 Depression Total Score: 0 10/24/19 20 11:16 AM MACHINE STAKER documented as of this encounter Care Teams Molding Utility Worker Relationship Specialty Start Date End Date Victoriano Reid MD PCP - General Family Medicine 06/19/19 06/29/24 Elva Olivares DO 2 [facility] BENOIT [facility] [address] [place] [address] PCP - General Family Medicine 07/01/24 Malissa Joe, RN [place] Nurse Checkroom Attendant 12/03/23 12/03/23 Malissa Joe RN [place] Nurse Checkroom Attendant 12/05/23 12/05/23 [place], [employer] MON[employer] [place] Molecular Biology Professor Checkroom Attendant 11/03/24 Cabrera Yadav MD #2 [place] [id number] Consulting Physician Urology 11/07/24 documented as of this encounter
--- OUTSIDE RECORDS SUMMARY | 2025-02-24 19:03 | XMS_ITS | Encounter Summary ---
Author Organization [facility] Address [address] [place] [address] Phone Care Team Providers Care Manager Ecommerce Name Role Phone Victoriano Reid MD Primary Care Provider Malissa Joe RN Unavailable Unavailable Malissa Joe RN Unavailable Unavailable Elva Olivares DO Primary Care Provider [phone] [place] SALES LEDGER ADMINISTRATOR Unavailable Unaabdirizaki Cabrera Dodge MD Unavailable [phone] Encounter Details Date Type Department Care Team (Late st Contact Info) Description 10/22/2020 Lab Requisition [facility] Laboratory Services 1 [place] [id number] Victoriano Reid MD #1 [place] [address] Neuromuscular dysfunction of bladder, unspecified; Personal history [...] Description 02/25/2025 11:00 AM CDT Clinical Support [facility] PHYSICIAN [facility] UROLOGY #[address] [place] [address] Nurse Ken Urology 03/02/2025 8:40 AM CDT Office Visit [facility] - [facility] [address] [facility] [place] [address] Elva Olivares, DO 2 [facility] [address] [place] [address] 03/03/2025 1:30 PM CDT [facility] 1 [facility] [place] [address] Cabrera Yadav MD #[address] [address] Discharge Disposition: Discharged to home or Selfcare 03/24/2025 11:00 AM CDT [facility] 1 [facility] [place] [address] Elva Olivares, DO 2 [facility] [address] [place] [address] Discharge Disposition: Discharged to home or Selfcare 03/24/2025 12:15 PM CDT [facility] M[facility] 1 [facility] [place] [address] Elva Olivares, DO 2 [facility] [address] [place] [address] documented as of this encounter Procedures Procedure Name Priority Date/Time Associated Diagnosis Comments URINALYSIS REFLEX IF INDICATED BY ABNORMAL RESULTS Routine 10/22/2020 10:45 AM TESTER WASTE DISPOSAL LEAKAGE Neuromuscular dysfunction of bladder, unspecified CULTURE, URINE Routine 10/22/2020 10:45 AM TESTER WASTE DISPOSAL LEAKAGE Neuromuscular dysfunction of bladder, unspecified documented in this encounter Results * CULTURE, URINE (10/22/2020 10:45 AM TESTER WASTE DISPOSAL LEAKAGE) CULTURE RESULTS ACINETOBACTER CALCOACETICUS-ACI NETOBACTER BAUMANNII COMPLEX 10/24/2020 7:06 PM TESTER WASTE DISPOSAL LEAKAGE [facility] CULTURE RESULTS ALSO MIXED GROWTH OF DISTAL URETHRA CONTAMINANTS. 10/24/2020 7:06 PM TESTER WASTE DISPOSAL LEAKAGE [facility]rine Non-Phlebotomy Collection / Unknown 10/22/2020 10:45 AM TESTER WASTE DISPOSAL LEAKAGE 10/22/2020 11:46 AM TESTER WASTE DISPOSAL LEAKAGE Narrative Organism Antibiotic Method Susceptibility Acinetobacter baumannii complex Ampicillin/sulbactam [facility] IIB <=2 mcg/ml: Susceptible Acinetobacter baumannii complex Cefepime [facility] IIB 2 mcg/ml: Susceptible Acinetobacter baumannii [...] - GENERAL ORDERABLE S Final Result [facility] [address] [place] [address], [place] * (ABNORMAL) URINALYSIS REFLEX IF INDICATED BY ABNORMAL RESULTS (10/22/2020 10:45 AM TESTER WASTE DISPOSAL LEAKAGE) SPECIFIC GRAVITY 1.010 1.003 - 1.030 10/22/2020 1:18 PM [facility] URINE PH 7.0 5.0 - 9.0 10/22/2020 1:18 PM [facility] WBC ESTERASE 500 /uL(A) Negative 10/22/2020 1:18 PM [facility] NITRITE Negative Negative 10/22/2020 1:18 PM [facility] PROTEIN, RANDOM URINE 30 mg/dL(A) Negative 10/22/2020 1:18 PM [facility] URINE GLUCOSE, QUAL Negative Negative 10/22/2020 1:18 PM [facility] URINE KETONES Negative Negative 10/22/2020 1:18 PM [facility] UROBILINOGEN Normal Normal mg/dL 10/22/2020 1:18 PM [facility] URINE BILIRUBIN Negative Negative 1:18 PM [facility] URINE BLOOD 150 /uL(A) Negative josefa/ul 10/22/2020 1:18 PM [facility] URINALYSIS COLOR Yellow 10/22/2020 1:18 PM [facility] URINALYSIS CLARITY Slightly Cloudy 10/22/2020 1:18 PM [facility] WBC (Urine) 6-10(A) Negative, 0-5 /hpf 10/22/2020 1:18 PM [facility] URINE RBC'S 3-5(A) Negative, 0-2 /hpf 10/22/2020 1:18 PM [facility] EPITHELIAL CELLS Occasional /lpf 10/22/2020 1:18 PM [facility] BACTERIA, URINE Many(A) Negative /hpf 10/22/2020 1:18 PM [facility] CRYSTALS Triple phosphate 10/22/2020 1:18 PM [facility] Urine Non-Phlebotomy Collection / Unknown 10/22/2020 10:45 AM TESTER WASTE DISPOSAL LEAKAGE 10/22/2020 11:46 AM TESTER WASTE DISPOSAL LEAKAGE us Victoriano Reid MD URINE ORDERABLES Final Result [facility] #[address] [place] [address] documented in this encounter Visit Diagnoses Diagnosis Neuromuscular dysfunction of bladder, unspecified Personal history of urinary (tract) infections documented in this encounter Additional Health Concerns Infection Onset Date Last Indicated Resolved Time 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 [address] [place] [address] PCP - General Family Medicine 07/01/24 Malissa Joe, RN [place] Nurse Geothermal Operations Engineer 12/03/23 12/03/23 Malissa Joe, RN [place] Nurse Geothermal Operations Engineer 12/05/23 12/05/23 [place], SALES LEDGER ADMINISTRATOR [place] Paper Cone Maker Geothermal Operations Engineer 11/03/24 Cabrera Yadav MD #2 [facility] [address] [place] [address] Consulting Physician Urology 11/07/24 documented as of this encounter
--- OUTSIDE RECORDS SUMMARY | 2025-02-24 19:03 | XMS_ITS | Encounter Summary ---
Author Organization [facility] Address [address] [place] [address] Phone Care Team Providers Care Human Resources Project Manager Name Role Phone Victoriano Reid MD Primary Care Provider [phone] Malissa Joe RN Unavailable Unavailable Malissa Joe RN Unavailable Unavailable Elva Olivares DO Primary Care Provider [phone] [place] DISABILITY HEARING OFFICER Unavailable Cabrera Smallwood MD Unavailable [phone] Reason for Visit * Reason Comments Medication Refill Encounter Details Date Type Department Care Team (Late st Contact Info) Description 10/05/2020 Refill [facility] - Family Medicine [facility] #2 [place] [id number] Victoriano Reid MD #1 [place] [address] Medication Refill Social History Tobacco Use Types [...] Visits Recent Outpatient Visits 2 months ago [facility] Victoriano Toledo MD 8 months ago Paralysis of both lower limbs (HCC) [facility] - Victoriano Beck MD 11 months ago Uncontrolled type 2 diabetes mellitus with hyperglycemia (HCC) 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 - Victoriano Beck MD 1 year ago Annual visit for general adult medical examination with abnormal findings [facility] Victoriano Toledo MD Upcoming Appointments Future Appointments In 6 days Naa Rios RN [facility] In 6 days Sharonda Carrion PTA [facility] In 1 week Sharonda Carrion, FRANCIS [facility] In 2 weeks Sharonda Carrion, FRANCIS [facility] In 2 weeks Naa Rios RN [facility] In 2 weeks Lorraine Russell PT [facility] In 3 weeks Sharonda Carrion, FRANCIS [facility] In 3 weeks Sharonda Carrion, FRANCIS [facility] In 4 weeks Sharonda Carrion PTA [facility] In 1 month Naa Rios RN [facility] In 1 month Sharonda Carrion, DECISION SUPPORT MANAGER [facility] In 1 month Sharonda Carrion, DECISION SUPPORT MANAGER [facility] In 1 month Lorraine Russell, PT [facility] In 1 month Lorraine Russell, PT [facility] In 1 month Naa Rios RN [facility] AIRPLANE TECHNICIAN - Recent and Past Visits Recent Visits Date Type Provider Dept 08/06/20 Telemedicine Victoriano Reid MD [facility] 01/22/20 Telemedicine Victoriano Reid MD [facility] 10/24/19 Office Visit Victoriano Reid MD [facility] 07/17/19 Office Visit [facility] Show[facility] recent visits within past 460 days with a meds authorizing provider and meeting all other requirements Future Appointments No visits were found meeting these conditions. Showing future appointments within next 90 days with a meds authorizing provider and meeting all other requirements HEAD PUMPER documented in this encounter Plan of Treatment Upcoming Encounters Date Type Department Care Team (Late st Contact Info) Description 02/25/2025 11:00 AM CDT Clinical Support [facility] UROLOGY #2 [place] [address] Nurse, [facility] 03/02/2025 8:40 AM CDT Office [facility] - [facility] #2 [place] [address] Elva Olivares, DO 2 [facility]. [address] [place] [address] 03/03/2025 1:30 PM CD[facility] 1 [place] [address] Cabrera Yadav MD #2 [facility] [address] [place] [address] Discharge Disposition: Discharged to home or Selfcare 03/24/2025 11:00 AM CDT [facility] 1 [place] [address] Elva Olivares, DO [address] [address] Discharge Disposition: Discharged to home or Selfcare 03/24/2025 12:15 PM CDT [facility] 1 [place] [address] Elva Olivares, DO [address] [address] documented as of this encounter Visit Diagnoses Diagnosis Allergic rhinitis, unspecified seasonality, unspecified trigger documented in this encounter Additional Health Concerns Infection Onset Date Last Indicated Resolved Time 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 06/05/2019 04/15/2021 7:28 AM CDT Assessment Noted Time PHQ-9 Depression Total Score: 0 10/24/19 20 11:16 AM WELLHEAD PUMPER documented as of this encounter Care Teams Human Resources Project Manager Relationship Specialty Start Date End Date Victoriano Reid MD PCP - General Family Medicine 06/19/19 06/29/24 Elav Olivares DO [address] [address] PCP - General Family Medicine 07/01/24 Malissa Joe, RN [place] Nurse Networking Administrator 12/03/23 12/03/23 Malissa Joe, RN [place] Nurse Networking Administrator 12/05/23 12/05/23 [place], DISABILITY HEARING OFFICER [place] Associate Professor Of Geology Networking Administrator 11/03/24 Cabrera Yadav MD #[address] [address] Consulting Physician Urology 11/07/24 documented as of this encounter
--- OUTSIDE RECORDS SUMMARY | 2025-02-24 19:03 | XMS_ITS | Encounter Summary ---
Author Organization [facility] Address [address] [place] [address] Phone Care Team Providers Care Funeral Sales Manager Name Role Phone Victoriano Reid MD Primary Care Provider [phone] Malissa Joe RN Unavailable Unavailable Malissa Joe RN Unavailable Unavailable Elva Olivares DO Primary Care Provider [phone] [place] CHINA DECORATOR Unavailable Cabrera Smallwood MD Unavailable [phone] Reason for Visit * Reason Comments Medication Refill Encounter Details Date Type Department Care Team (Late st Contact Info) Description 02/26/2022 Refill [facility] Medical Group - Family Medicine [facility] #2 [place] [address] Victoriano Reid MD #1 [place] [address] Medication Refill Social History Tobacco Use Types [...] Dept 01/05/22 Office Visit Nia Abbott PAC [facility] 08/15/21 Office Visit Victoriano Reid MD [facility] Showing recent visits within past 365 days [...] [facility] #[address] [place] [address] Nurse, [facility] 03/02/2025 8:40 AM CDT Office Visit [facility] Medical Group - Family Medicine - [place] #[address] [place] [address] Elva Olivares, DO 2 [facility] [address] [address] 03/03/2025 1:30 PM CDT [facility] 1 [facility] [place] [address] Cabrera Yadav MD #2 [facility] [address] [place] [address] Discharge Disposition: Discharged to home or Selfcare 03/24/2025 11:00 AM CDT [facility] Ul[facility]ound [address] [place] [address] Elva Olivares, DO 2 [facility] [address] [place] [address] Discharge Disposition: Discharged to home or Selfcare 03/24/2025 12:15 PM CDT Appointment [facility] Mammography [address] [place] [address] Elva Olivares, DO 2 [facility] [address] [place] [address] documented as of this encounter Visit Diagnoses Diagnosis Muscle spasm Spasm of muscle documented in this encounter Additional Health Concerns Assessment Noted Time PHQ-9 Depression Total Score: 0 08/15/20 21 10:00 AM CDT documented as of this encounter Care Teams Funeral Sales Manager Relationship Specialty Start Date End Date Victoriano Reid MD PCP - General Family Medicine 06/19/19 06/29/24 Elva Olivares DO 2 [facility] [address] [place] [address] PCP - General Family Medicine 07/01/24 Malissa Joe, DONYA [place] Nurse Catholic Priest 12/03/23 12/03/23 Malissa Joe RN [place] Nurse Catholic Priest 12/05/23 12/05/23 [place]inton, CHINA DECORATOR [place] Pan Tank Worker Catholic Priest 11/03/24 Cabrera Yadav MD #[address] [address] Consulting Physician Urology 11/07/24 documented as of this encounter
--- OUTSIDE RECORDS SUMMARY | 2025-02-24 19:03 | XMS_ITS | Encounter Summary ---
Author Organization [facility] Address [address] [place] [address] Phone Care Team Providers Care Contracts Advisor Name Role Phone Victoriano Reid MD Primary Care Provider [phone] Malissa Joe RN Unavailable Unavailable Malissa Joe RN Unavailable Unavailable Elva Olivares DO Primary Care Provider [phone] [place] ANIMAL HERDER Unavailable Unaabdirizaki Cabrera Dodge MD Unavailable [phone] Encounter Details Date Type Department Care Team (Late st Contact Info) Description 10/31/2021 Lab Requisition [facility] Laboratory Services 1 [place] [address] Victoriano Reid MD #1 [place] [address] Personal history of urinary (tract) infections Social [...] 02/25/2025 11:00 AM CDT Clinical Support [facility] PHYSICIAN [facility] UROLOGY #[address] [address] Nurse [facility] 03/02/2025 8:40 AM CDT Office Visit [facility] - Family Medicine [facility] #2 [place] [address] Elva Olivares, DO 2 [facility] [address] [place] [address] 03/03/2025 1:30 PM CD[facility] 1 [facility] [place] [address] Cabrera Yadav MD #[address] [address] Discharge Disposition: Discharged to home or Selfcare 03/24/2025 11:00 AM CDT [facility] 1 [facility] [place] [address] Elva Olivares, DO 2 [facility] [address] [place] [address] Discharge Disposition: Discharged to home or Selfcare 03/24/2025 12:15 PM CDT [facility] 1 [facility] [place] [address] Elva Olivares, DO 2 [facility] [address] [place] [address] documented as of this encounter Procedures Procedure Name Priority Date/Time Associated Diagnosis Comments URINALYSIS REFLEX IF INDICATED BY ABNORMAL RESULTS Routine 10/31/2020 12:15 PM RELIGIOUS ACTIVITIES DIRECTOR Personal history of urinary (tract) infections CULTURE, URINE Routine 10/31/2020 12:15 PM RELIGIOUS ACTIVITIES DIRECTOR Personal history of urinary (tract) infections documented in this encounter Results * CULTURE, URINE (10/31/2020 12:15 PM RELIGIOUS ACTIVITIES DIRECTOR) Pathologist [facility] CULTURE RESULTS MIXED GROWTH OF 3 OR MORE ORGANISMS, PROBABLE COLLECTION CONTAMINATION, SUGGEST REPEAT URINE CULTURE. 11/01/2021 4:23 PM RELIGIOUS ACTIVITIES DIRECTOR [facility] Urine Non-Phlebotomy Collection / Unknown 10/31/2020 12:15 PM RELIGIOUS ACTIVITIES DIRECTOR 10/31/2021 1:47 PM RELIGIOUS ACTIVITIES DIRECTOR us Victoriano Reid MD MICROBIOLOGY - GENERAL ORDERABLE S Final Result Performing Organization Address City/State/[facility] Co de Phone Number [facility] [address] [place] [address], * (ABNORMAL) URINALYSIS REFLEX IF INDICATED BY ABNORMAL RESULTS (10/31/2020 12:15 PM RELIGIOUS ACTIVITIES DIRECTOR) [facility] SPECIFIC GRAVITY 1.010 1.003 - 1.030 10/31/2021 2:26 PM RELIGIOUS ACTIVITIES DIRECTOR [facility] PH 8.0 5.0 - 9.0 10/31/2021 2:26 PM RELIGIOUS ACTIVITIES DIRECTOR [facility] WBC ESTERASE 500 /uL(A) Negative 10/31/2021 2:26 PM RELIGIOUS ACTIVITIES DIRECTOR [facility] NITRITE Negative Negative 10/31/2021 2:26 PM RELIGIOUS ACTIVITIES DIRECTOR [facility] PROTEIN, RANDOM URINE 100 mg/dL(A) Negative 10/31/2021 2:26 PM RELIGIOUS ACTIVITIES DIRECTOR [facility] URINE GLUCOSE, QUAL Negative Negative 10/31/2021 2:26 PM RELIGIOUS ACTIVITIES DIRECTOR [facility] KETONES Negative Negative 10/31/2021 2:26 PM RELIGIOUS ACTIVITIES DIRECTOR [facility] UROBILINOGEN Normal Normal mg/dL 10/31/2021 2:26 PM RELIGIOUS ACTIVITIES DIRECTOR [facility] BLOOD 250 /uL(A) Negative josefa/ul 10/31/2021 2:26 PM RELIGIOUS ACTIVITIES DIRECTOR [facility] URINALYSIS COLOR Dark Yellow 10/31/2021 2:26 PM RELIGIOUS ACTIVITIES DIRECTOR [facility] URINALYSIS CLARITY Very Cloudy 10/31/2021 2:26 PM RELIGIOUS ACTIVITIES DIRECTOR [facility] WBC (Urine) 21-50(A) Negative, 0-5 /hpf 10/31/2021 2:26 PM RELIGIOUS ACTIVITIES DIRECTOR [facility] URINE RBC'S 21-50(A) Negative, 0-2 /hpf 10/31/2021 2:26 PM RELIGIOUS ACTIVITIES DIRECTOR [facility] EPITHELIAL CELLS Occasional /lpf 10/31/2021 2:26 PM RELIGIOUS ACTIVITIES DIRECTOR [facility] BACTERIA, URINE Packed(A) Negative /hpf 10/31/2021 2:26 PM RELIGIOUS ACTIVITIES DIRECTOR [facility] Urine Non-Phlebotomy Collection / Unknown 10/31/2020 12:15 PM RELIGIOUS ACTIVITIES DIRECTOR 10/31/2021 1:47 PM RELIGIOUS ACTIVITIES DIRECTOR us Victoriano Reid MD URINE ORDERABLES Final Result [facility] #1 [place] [address] documented in this encounter Visit Diagnoses Diagnosis Personal history of urinary (tract) infections documented in this encounter Additional Health Concerns Assessment Noted Time PHQ-9 Depression Total Score: 0 10/24/19 20 11:16 AM RELIGIOUS ACTIVITIES DIRECTOR documented as of this encounter Care Teams Contracts Advisor Relationship Specialty Start Date End Date Victoriano Reid MD PCP - General Family Medicine 06/19/19 06/29/24 Elva Olivares DO 2 [facility] [address] [address] PCP - General Family Medicine 07/01/24 Malissa Joe, RN [place] Nurse Motor Polarizer 12/03/23 12/03/23 Malissa Joe, RN [place] Nurse Motor Polarizer 12/05/23 12/05/23 [place], [facility]AL [facility] Bit Welder Motor Polarizer 11/03/24 Cabrera Yadav MD #[address] [address] Consulting Physician Urology 11/07/24 documented as of this encounter
--- OUTSIDE RECORDS SUMMARY | 2025-02-24 19:03 | XMS_ITS | Encounter Summary ---
Author Organization [facility] Address [address] [place] [address] Phone Care Team Providers Care Relationship Advisor Name Role Phone Victoriano Reid MD Primary Care Provider [phone] Malissa Joe RN Unavailable Unavailable Malissa Joe RN Unavailable Unavailable Elva Olivares DO Primary Care Provider [phone] [place] HAND STRAIGHTENER Unavailable Unaabdirizaki Cabrera Dodge MD Unavailable [phone] Encounter Details Date Type Department Care Team (Late st Contact Info) Description 11/29/[address] [facility] Laboratory Services 1 [place] [id number] Victoriano Reid MD #1 [place] [address] Personal history of urinary (tract) infections Social [...] Description 02/25/2025 11:00 AM CDT Clinical Support [facility] UROLOGY #[address] [place] [address] Nurse Ken Urology 03/02/2025 8:40 AM CDT Office Visit [facility] #[address] [place] [address] Elva Olivares, DO 2 [facility] [address] [place] [address] 03/03/2025 1:30 PM CDT [facility] 1 [facility] [place] [address] Cabrera Yadav MD #2 [facility], [address] [address] Discharge Disposition: Discharged to home or Selfcare 03/24/2025 11:00 AM CDT [facility]ment [facility] Ultrasound 1 [facility] [place] [address] Elva Olivares, DO 2 [facility] [address] [place] [address] Discharge Disposition: Discharged to home or Selfcare 03/24/2025 12:15 PM CDT [facility]ment [facility] Mammography 1 [facility] [place] [address] Elva Olivares, DO 2 [facility] [address] [place] [address] documented as of this encounter Procedures Procedure Name Priority Date/Time Associated Diagnosis Comments URINALYSIS REFLEX IF INDICATED BY ABNORMAL RESULTS Routine 11/29/2020 12:45 PM ARCHIVIST ECONOMIC HISTORY Personal history of urinary (tract) infections CULTURE, URINE Routine 11/29/2020 12:45 PM ARCHIVIST ECONOMIC HISTORY Personal history of urinary (tract) infections documented in this encounter Results * CULTURE, URINE (11/29/2020 12:45 PM ARCHIVIST ECONOMIC HISTORY) CULTURE RESULTS STAPHYLOCOCCUS AUREUS 12/01/2020 4:47 PM ARCHIVIST ECONOMIC HISTORY [facility] Urine Non-Phlebotomy Collection / Unknown 11/29/2020 12:45 PM ARCHIVIST ECONOMIC HISTORY 11/29/2020 1:55 PM ARCHIVIST ECONOMIC HISTORY Narrative Organism Antibiotic Method Susceptibility Staphylococcus aureus Gentamicin [facility] V[facility] IIB <=0.5 mcg/ml: Susceptible Staphylococcus aureus Nitrofurantoin [facility] IIB 32 mcg/ml: Susceptible Staphylococcus aureus Oxacillin [facility] IIB <=0.25 mcg/ml: Susceptible Staphylococcus aureus Tetracycline [facility] IIB <=1 mcg/ml: Susceptible Staphylococcus aureus Trimeth/Sulfamethoxazole [facility] RANDY IIB <=10 mcg/ml: Susceptible Staphylococcus aureus Vancomycin [facility] IIB <=0.5 mcg/ml: Susceptible us Victoriano Reid MD MICROBIOLOGY - GENERAL ORDERABLE S Final Result [facility] [address] [place] [address], * (ABNORMAL) URINALYSIS REFLEX IF INDICATED BY ABNORMAL RESULTS (11/29/2020 12:45 PM ARCHIVIST ECONOMIC HISTORY) SPECIFIC GRAVITY 1.010 1.003 - 1.030 11/29/2020 2:17 PM ARCHIVIST ECONOMIC HISTORY [facility] URINE PH 7.0 5.0 - 9.0 11/29/2020 2:17 PM ARCHIVIST ECONOMIC HISTORY [facility] WBC ESTERASE 500 /uL(A) Negative 11/29/2020 2:17 PM ARCHIVIST ECONOMIC HISTORY [facility] NITRITE Negative Negative 11/29/2020 2:17 PM ARCHIVIST ECONOMIC HISTORY [facility] PROTEIN, RANDOM URINE 30 mg/dL(A) Negative 11/29/2020 2:17 PM ARCHIVIST ECONOMIC HISTORY [facility] URINE GLUCOSE, QUAL Negative Negative 11/29/2020 2:17 PM ARCHIVIST ECONOMIC HISTORY [facility] URINE KETONES Negative Negative 11/29/2020 2:17 PM ARCHIVIST ECONOMIC HISTORY [facility] UROBILINOGEN Normal Normal mg/dL 11/29/2020 2:17 PM ARCHIVIST ECONOMIC HISTORY [facility] URINE BILIRUBIN Negative Negative 2:17 PM ARCHIVIST ECONOMIC HISTORY [facility] URINE BLOOD 250 /uL(A) Negative josefa/ul 11/29/2020 2:17 PM ARCHIVIST ECONOMIC HISTORY [facility] URINALYSIS COLOR Yellow 11/29/19 2:17 PM ARCHIVIST ECONOMIC HISTORY [facility] URINALYSIS CLARITY Very Cloudy 11/29/2020 2:17 PM ARCHIVIST ECONOMIC HISTORY [facility] WBC (Urine) 51-150(A) Negative, 0-5 /hpf 11/29/2020 2:17 PM ARCHIVIST ECONOMIC HISTORY [facility] URINE RBC'S 51-150(A) Negative, 0-2 /hpf 11/29/2020 2:17 PM ARCHIVIST ECONOMIC HISTORY [facility] EPITHELIAL CELLS Occasional /lpf 11/29/19 2:17 PM ARCHIVIST ECONOMIC HISTORY [facility] BACTERIA, URINE Many(A) Negative /hpf 11/29/2020 2:17 PM ARCHIVIST ECONOMIC HISTORY [facility] URINE MUCOUS Few 11/29/2020 2:17 PM ARCHIVIST ECONOMIC HISTORY [facility] Urine Non-Phlebotomy Collection / Unknown 11/29/2020 12:45 PM ARCHIVIST ECONOMIC HISTORY 11/29/2020 1:55 PM ARCHIVIST ECONOMIC HISTORY us Victoriano Reid MD URINE ORDERABLES Final Result [facility] #1 [place] [address] documented in this encounter Visit Diagnoses Diagnosis Personal history of urinary (tract) infections documented in this encounter Additional Health Concerns Infection Onset Date Last Indicated Resolved Time 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 06/05/2019 04/15/2021 7:28 AM CDT Assessment Noted Time PHQ-9 Depression Total Score: 0 10/24/19 20 11:16 AM ARCHIVIST ECONOMIC HISTORY documented as of this encounter Care Teams Relationship Advisor Relationship Specialty Start Date End Date Victoriano Reid MD PCP - General Family Medicine 06/19/19 06/29/24 Elva Olivares DO 2 [facility] [address] [place] [address] PCP - General Family Medicine 07/01/24 Malissa Joe, RN [place] Nurse Cognos Administrator 12/03/23 12/03/23 Malissa Joe, RN [place] Nurse Cognos Administrator 12/05/23 12/05/23 [place], [facility] [place] Coach Builder Cognos Administrator 11/03/24 Cabrera Yadav MD #2 [facility] [address] [place] [address] Consulting Physician Urology 11/07/24 documented as of this encounter
--- OUTSIDE RECORDS SUMMARY | 2025-02-24 19:03 | XMS_ITS | Encounter Summary ---
Author Organization [facility] Address [address] [place] [address] Phone Care Team Providers Care Shot Grinder Operator Name Role Phone Victoriano Reid MD Primary Care Provider [phone] Malissa Joe RN Unavailable Unavailable Malissa Joe RN Unavailable Unavailable Elva Olivares DO Primary Care Provider [phone] [place] KITCHEN FOOD ASSEMBLER Unavailable Unaabdirizaki Cabrera Dodge MD Unavailable [phone] Encounter Details Date Type Department Care Team (Late st Contact Info) Description 02/12/2021 [facility] 1 [place] [address] Vishal Vee MD 8 [place] [address] Urinary tract infection, site not [...] AM CDT Clinical Support [facility] UROLOGY #2 [place] [address] Nurse, Ken Urology 03/02/2025 8:40 AM CDT Office Visit [facility] - Family Medicine - [place] #2 [place] [address] Elva Olivares, DO 2 [facility] [address] [place] [address] 03/03/2025 1:30 PM CDT [facility]ment [facility] 1 [facility] [place] [address] Cabrera Yadav MD #[address] [address] Discharge Disposition: Discharged to home or Selfcare 03/24/2025 11:00 AM CDT [facility]ment [facility] Ul[facility]ound 1 [place] [address] Elva Olivares, DO 2 [facility] [address] [place] [address] Discharge Disposition: Discharged to home or Selfcare 03/24/2025 12:15 PM CDT [facility]ment [facility] Mammography [address] [place] [address] Elva Olivares, DO 2 [facility] [address] [place] [address] documented as of this encounter Procedures Procedure [...] - 12.00 10(3)/mcL 02/12/2021 12:08 PM CDT [facility] RBC 3.62(L) 3.80 - 5.30 10(6)/mcL 02/12/2021 12:08 PM CDT [facility] HEMOGLOBIN (HGB) 11.4(L) 12.0 - 15.8 g/dL 02/12/2021 12:08 PM CDT [facility] HEMATOCRIT (HCT) 34.6(L) 36.0 - 47.0 % 02/12/2021 12:08 PM CDT [facility] MCV 95.6 82.0 - 96.0 fL 02/12/2021 12:08 PM CDT [facility] MCH 31.5 26.0 - 34.0 pg 02/12/2021 12:08 PM CDT [facility] MCHC 32.9 31.0 - 36.0 g/dL 02/12/2021 12:08 PM CDT [facility] PLATELET COUNT 151 140 - 440 10(3)/mcL 02/12/2021 12:08 PM CDT [facility] Comment:No clot in tube, no clumps on smear RDW 14.7 11.8 - 15.5 % 02/12/2021 12:08 PM CDT [facility] MPV 12.2 9.7 - 12.4 fL 02/12/2021 12:08 PM CDT [facility] NEUTROPHILS 63.7 47.0 - 73.0 % 02/12/2021 12:08 PM CDT [facility] LYMPHOC[facility]TES 24.1 18.0 - 42.0 % 02/12/2021 12:08 PM CDT [facility] MONOCYTES 9.2 4.0 - 12.0 % 02/12/2021 12:08 PM CDT [facility] EOSINOPHIL[facility] 2.5 0.0 - 5.0 % 02/12/2021 12:08 PM CDT [facility] BASOPHILS 0.5 0.0 - 1.0 % 02/12/2021 12:08 PM CDT [facility] ABSOLUTE NEUTROPHILS 5.00 1.60 - 7.70 10(3)/[facility] 02/12/2021 12:08 PM CDT [facility] ABSOLUTE LYMPHOCYTES 1.89 1.30 - 3.20 10(3)/[facility] 02/12/2021 12:08 PM CDT [facility] ABSOLUTE MONOCYTES 0.72 0.20 - 1.00 10(3)/[facility] 02/12/2021 12:08 PM CDT [facility] ABSOLUTE EOSINOPHIL 0.20 0.00 - 0.40 10(3)/[facility] 02/12/2021 12:08 PM CDT [facility] ABSOLUTE BASOPHILS 0.04 0.00 - 0.10 10(3)/[facility] 02/12/2021 12:08 PM CDT [facility] NRBC PER 100 WBC 0 02/13/20 12:08 PM CDT [facility] RESULTS ARE CONSISTENT WITH PERIPHERAL SMEAR REVIEW Yes 02/12/2021 12:08 PM CDT [facility] Blood Venipuncture / Unknown 02/12/2021 10:40 AM CDT 02/12/2021 11:30 AM CDT Vishal Vee MD HEMATOLOGY ORDERABLES Final Result [email or web address] LAB #[address] [place] [address] documented in this encounter Visit Diagnoses Diagnosis Urinary tract infection, site not specified Thrombocytopenia, unspecified (HCC) Thrombocytopenia, unspecified documented in this encounter Additional Health Concerns Infection Onset Date Last Indicated Resolved Time 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 06/05/2019 04/15/2021 7:28 AM CDT Assessment Noted Time PHQ-9 Depression Total Score: 0 10/24/19 20 11:16 AM NIGHT CLERK documented as of this encounter Care Teams Shot Grinder Operator Relationship Specialty Start Date End Date Victoriano Reid MD PCP - General Family Medicine 06/19/19 06/29/24 Elva Olivares DO 2 [facility] [address] [place] [address] PCP - General Family Medicine 07/01/24 Malissa Joe, RN [place] Nurse Telephone Maintainer 12/03/23 12/03/23 Malissa Joe, RN [place] Nurse Telephone Maintainer 12/05/23 12/05/23 [place]inton, KITCHEN FOOD ASSEMBLER [place] Customs Patrol Officer Telephone Maintainer 11/03/24 Cabrera Yadav MD #2 [facility] [address] [place] [address] Consulting Physician Urology 11/07/24 documented as of this encounter
--- OUTSIDE RECORDS SUMMARY | 2025-02-24 19:03 | XMS_ITS | Encounter Summary ---
Author Organization [facility] Address [address] [place] [address] Phone Care Team Providers Care Switch Operators Supervisor Name Role Phone Victoriano Reid MD Primary Care Provider [phone] Malissa Joe RN Unavailable Unavailable Malissa Joe RN Unavailable Unavailable Elva Olivares DO Primary Care Provider [phone] [place] POOLING OPERATOR Unavailable Unaabdirizaki Cabrera Dodge MD Unavailable [phone] Encounter Details Date Type Department Care Team (Late st Contact Info) Description 07/11/2023 Lab Requisition [facility] Laboratory Services 1 [place] [phone] Victoriano Reid MD #1 [place] [address] Personal history of urinary (tract) infections; Neuromuscular [...] Description 02/25/2025 11:00 AM CDT Clinical Support [facility] UROLOGY #[address] [address] Nurse Ken Urology 03/02/2025 8:40 AM CDT Office Visit [facility] - [place] #[address] [place] [address] Elva Olivares, DO 2 [facility] [address] [place] [address] 03/03/2025 1:30 PM CDT [facility] 1 [facility] [place] [address] Cabrera Yadav MD #[address] [address] Discharge Disposition: Discharged to home or Selfcare 03/24/2025 11:00 AM CDT [facility]ointment [facility] Ultrasound 1 [facility] [place] [address] Elva Olivares, DO 2 [facility] [address] [place] [address] Discharge Disposition: Discharged to home or Selfcare 03/24/2025 12:15 PM CDT Appointment [facility] Mammography [address] [place] [address] Elva Olivares, DO 2 [facility] [address] [place] [address] documented as of this encounter Procedures Procedure Name Priority Date/Time Associated Diagnosis Comments CULTURE, URINE Routine 07/11/2023 11:30 AM CDT Personal history of urinary (tract) infections Neuromuscular dysfunction of bladder, unspecified documented in this encounter Results * CULTURE, URINE (07/11/2023 11:30 AM CDT) CULTURE RESULTS CITROBACTER AMALONATICUS 07/14/2023 4:17 PM CDT [facility] CULTURE RESULTS ENTEROCOCCUS FAECALIS 07/14/2023 4:17 PM CDT [facility] Culture No Phlebotomy Charged / Unknown 07/11/2023 11:30 AM CDT 07/11/2023 1:28 PM CDT [facility] 07/14/2023 4:17 PM CDT Susceptibility [...] Trimeth/Sulfamethoxazole [facility] IIB <=20 mcg/ml: Susceptible Victoriano Reid MD MICROBIOLOGY - GENERAL ORDERABLE S Final Result [facility] [address] [place] [address], documented in this encounter Visit Diagnoses Diagnosis Personal history of urinary (tract) infections Neuromuscular dysfunction of bladder, unspecified documented in this encounter Additional Health Concerns Assessment Noted Time PHQ-9 Depression Total Score: 0 08/15/20 21 10:00 AM CDT documented as of this encounter Care Teams Switch Operators Supervisor Relationship Specialty Start Date End Date Victoriano Reid MD PCP - General Family Medicine 06/19/19 06/29/24 Elva Olivares DO 2 [facility] [address] [place] [address] PCP - General Family Medicine 07/01/24 Malissa Joe, RN [place] Nurse Molder Floor 12/03/23 12/03/23 Malissa Joe, RN [place] Nurse Molder Floor 12/05/23 12/05/23 [place], POOLING OPERATOR [place] Clinical Appeals Rn Molder Floor 11/03/24 Cabrera Yadav MD #2 [facility] [address] [place] [address] Consulting Physician Urology 11/07/24 documented as of this encounter
--- OUTSIDE RECORDS SUMMARY | 2025-02-24 19:03 | XMS_ITS | Encounter Summary ---
Author Organization [facility] Address [address] [place] [address] Phone Care Team Providers Care Sports Apparel Internship Name Role Phone Victoriano Reid MD Primary Care Provider [phone] Malissa Joe RN Unavailable Unavailable Malissa Joe RN Unavailable Unavailable Elva Olivares DO Primary Care Provider [phone] [place] CLIENT SERVER PROGRAMMER Unavailable Cabrera Smallwood MD Unavailable [phone] Reason for Visit * Reason Comments Medication Refill Encounter Details Date Type Department Care Team (Late st Contact Info) Description 08/07/2022 Refill [facility] - Family Medicine [facility] #2 [place] [address] Victoriano Reid MD #1 [place] [address] Medication Refill Social History Tobacco Use Types [...] Date Type Provider Dept 01/05/22 Office Visit iNa Abbott [facility] 08/15/21 Office Visit Victoriano Reid MD [facility] Ken Showing recent visits within past 365 [...] days and meeting all other requirements nystatin [id number] UNIT/GM Powder [Pharmacy Med Name: NYSTOP TOP [...] Rogers 08/15/21 Office Visit Victoriano [facility] MD [facility] Showing recent visits within [...] [facility] #[address] [place] [address] Nurse [place] [facility] 03/02/2025 8:40 AM CDT Office Visit [facility] - [place] #[address] [place] [address] Elva Olivares, DO 2 [facility] [address] [place] [address] 03/03/2025 1:30 PM CD[facility] [address] [place] [address] Cabrera Yadav MD #[address] [address] Discharge Disposition: Discharged to home or Selfcare 03/24/2025 11:00 AM CDT [facility] 1 [facility] [place] [address] Elva Olivares, DO 2 [facility] [address] [place] [address] Discharge Disposition: Discharged to home or Selfcare 03/24/2025 12:15 PM CDT [facility] 1 [facility] [place] [address] Elva Olivares, DO 2 [facility] [address] [place] [address] documented as of this encounter Visit Diagnoses Diagnosis Neurogenic bladder Neurogenic bladder, NOS Allergic rhinitis, unspecified seasonality, unspecified trigger Muscle spasm Spasm of muscle documented in this encounter Additional Health Concerns Assessment Noted Time PHQ-9 Depression Total Score: 0 11/01/20 21 10:00 AM CDT documented as of this encounter Care Teams Sports Apparel Internship Relationship Specialty Start Date End Date Victoriano Reid MD PCP - General Family Medicine 06/19/19 06/29/24 Elva Olivares DO 2 [facility] [address] [place] [address] PCP - General Family Medicine 07/01/24 Malissa Joe, RN [place] Nurse Electromechanisms Design Drafter 12/03/23 12/03/23 Malissa Joe, RN [place] Nurse Electromechanisms Design Drafter 12/05/23 12/05/23 [place], CLIENT SERVER PROGRAMMER [place] Marine Equipment Test Engineer Electromechanisms Design Drafter 11/03/24 Cabrera Yadav MD #2 [facility] [address] [place] [address] Consulting Physician Urology 11/07/24 documented as of this encounter
[2025-02-24 19:38] LABS: Add Urine Microscopic? YES; Appearance Urine Clear (Clear); Bacteria Urine 4+ /hpf; Bilirubin Urine Negative (Negative); Blood Urine 2+ (Negative); Color Urine Yellow (Yellow); Glucose Urine UA Negative (Negative); Ketones Urine Negative (Negative); Leukocyte Esterase Ur 2+ LEU/UL (Negative); Nitrate Urine Positive (Negative); Non Pathogenic Casts 0-2; Protein Urine Negative (Negative); RBC Urine 21-50 /hpf (0-2); Specific Grav Ur 1.006 (1.001-1.035); Squamous Epithelial Cell Urine None Seen /hpf (Few); Urobilinogen Urine 0.2 mg/dL (<2.0); pH Urine 7.5 (5.0-9.0)
[2025-02-24 21:25] VITALS: BP 148/64; PULSE 63; RESP 14; O2SAT 100
== END 2025-02-24 21:52 | disposition home or self-care (01) ==
PROVIDERS: Emergency Medicine; Emergency Provider Emergency Medicine; PCP Student in an Organized Health Care Education/Training Program
DX: N39.0 Urinary tract infection, site not specified (principal); T83.090A Other mechanical complication of cystostomy catheter, initial encounter; Y84.6 Urinary catheterization as the cause of abnormal reaction of the patient, or of later complication, without mention of misadventure at the time of the procedure; Y73.1 Therapeutic (nonsurgical) and rehabilitative gastroenterology and urology devices associated with adverse incidents; I10 Essential (primary) hypertension; E11.9 Type 2 diabetes mellitus without complications
CPT/HCPCS: 51705; 81001; 87086; 99283

== ENCOUNTER 2025-04-11 18:19 | Emergency (ER) | payer MEDICARE, OTHER, SELFPAY ==
[2025-04-11] VITALS (13 sets, daily range): BP systolic 113–143; BP diastolic 53–96; PULSE 67–86; RESP 6–22; TEMP 36.5–37.1; O2SAT 81–100
--- NOTE | 2025-04-11 20:21 | ED.FEMALEGU ---
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 Patient reports catheter has not been draining appropriately intermittently over the past couple of days. She reports some intermittent suprapubic fracture, denies significant pain. Denies hematuria. States her catheter has not been change in approximately 3 weeks to 1 month, typically is changed every 2 weeks. She sees a urologist in [place]. Related Data Allergies Allergy/AdvReac Type Severity Reaction Status Date / Time codeine Allergy Unknown rash Verified 02/24/25 17:37 Review of Systems Review of Systems: All systems reviewed & are unremarkable except as noted in HPI. All systems reviewed & are unremarkable except as noted in HPI and below PMFSH Past Medical History Medical History Suprapubic catheter Reis catheter in place Pneumonia HTN (hypertension) Diabetes mellitus Surgical History Surgical History History of back surgery Hx of appendectomy Social History Social History Smoking status: Former smoker Exam Narrative: GENERAL: Well appearing, well-nourished, non-toxic, in no acute distress. HEAD: Normocephalic, atraumatic. RESPIRATORY: Airway patent, respirations nonlabored. CARDIOVASCULAR: Regular rate and rhythm without murmurs, rubs, or gallops. ABDOMINAL: Soft, minimal tenderness in suprapubic region, nondistended. Normoactive BS. MUSCULOSKELETAL: No gross deformities. SKIN: Warm, dry, normal color. NEURO: A&O X3. Speech clear. PSYCHIATRIC: Appropriate mood and affect. Normal interaction. Course Vital Signs Vital signs: Vital Signs Temperature 97.7 F 04/11/25 18:24 Pulse Rate 70 06/28/25 18:24 Respiratory Rate 20 04/11/25 18:24 Blood Pressure 129/73 04/11/25 18:24 Pulse Oximetry 100 04/11/25 18:24 Oxygen Delivery Room Air 04/11/25 18:24 Temperature 98.7 F 04/11/25 19:31 Pulse Rate 78 04/11/25 20:46 Respiratory Rate 16 04/11/25 20:46 Blood Pressure 143/84 H 04/11/25 20:46 Pulse Oximetry 98 04/11/25 20:46 Oxygen Delivery Room Air 04/11/25 18:24 Procedures Catheter Insertion (Urinary) Urinary Catheter 1: Date of insertion: 04/11/25 Time of insertion: 20:50 Reason for placing: Yes (suprapubic catheter change) Reason for placing indwelling catheter: Other (paraplegic status) Bladder scan/ultrasound used before catheterization: No Antiseptic solution prep: Povidone-Iodine Topical anesthesia used: No Catheter type/location: Suprapubic Size ([place] Citizen): 16 Catheter balloon size (mL): 10 Catheter balloon amount: 10 Results: successfully catheterized-immediate flow Procedure performed: without complications MDM - Female Genitourinary MDM Narrative Medical decision making narrative: History of paraplegia, chronic suprapubic catheter. Reports catheter not draining over the last couple of days. Has not been replaced in 3 weeks. This was replaced by myself in the ED without complications. Patient feeling much improved. Urinalysis was obtained. Does show positive nitrates, 3+ leuk esterase, 21-50 WBC, 4+ urine bacteria. Sent for culture. Potentially colonization, however patient has had recent positive cultures here. Will start on Keflex for UTI coverage. Otherwise feel patient is safe for D/C home. Discussed close follow-up with PCP for further evaluation and urine culture results. Given strict return precautions. She agrees with plan. Discharged in stable condition. Medical Records Attestation: I reviewed the patient's medical records. Lab Data Attestation: I reviewed the patient's lab results. Labs: Lab Results 04/11/25 Range/Units 20:57 Urine Color Yellow (Yellow) Urine Appearance Clear (Clear) Urine pH 7.5 (5.0-9.0) Ur Specific [place] 1.005 (1.001-1.035) Urine Protein Negative (Negative) mg/dL Urine Glucose (UA) Negative (Negative) mg/dL Urine Ketones Negative (Negative) mg/dL Ur Blood (Man) 2+ H (Negative) Urine Nitrate Positive H (Negative) Urine Bilirubin Negative (Negative) Urine Urobilinogen 1.0 (<2.0) mg/dL Leukocyte Esterase Rfl 3+ H (Negative) EVETTE/UL Urine RBC 3-5 H (0-2) /hpf Urine WBC 21-50 H (0-3) /hpf Ur Squamous Epith Cells None seen (Few) /hpf Urine Bacteria 4+ H /hpf Urine Casts 0-2 Discharge Plan Discharge Clinical Impression: Abnormal finding on urinalysis Suprapubic catheter dysfunction Qualifiers: Encounter type: initial encounter Qualified Code(s): T83.010A - Breakdown (mechanical) of cystostomy catheter, initial encounter Patient Disposition: Home Condition: Stable Instructions: Antibiotic Form, Urinary Tract Infection in Women (ED), Reis Catheter Placement and Care (ED) Additional Instructions: Take antibiotics as prescribed for urinary tract infection. Follow-up with your primary care doctor for urine culture results. Return to the ED if you experience recurrent issues with your catheter, blood in urine, severe pain, unable to keep down food or drink, fevers, or any other symptoms of concern. Patient Language: Northern Irish Prescriptions: New cephalexin 500 mg capsule 500 mg PO Q6H 7 Days Qty: 28 0RF No Action sulfamethoxazole-trimethoprim [Bactrim DS] 800-160 mg tablet 1 tablet PO Q12H Qty: 14 0RF cephalexin 500 mg capsule 500 mg PO Q8H 7 Days Qty: 21 0RF cephalexin 500 mg capsule 500 mg PO Q12H 7 Days Qty: 14 0RF Follow-up/Referrals: Elise,Elva Cha DO [Primary Care Provider] - Time of Disposition: 21:11
[2025-04-11 21:06] LABS: Add Urine Microscopic? YES; Appearance Urine Clear (Clear); Bacteria Urine 4+ /hpf; Bilirubin Urine Negative (Negative); Blood Urine 2+ (Negative); Color Urine Yellow (Yellow); Glucose Urine UA Negative (Negative); Ketones Urine Negative (Negative); Leukocyte Esterase Ur 3+ LEU/UL (Negative); Nitrate Urine Positive (Negative); Non Pathogenic Casts 0-2; Protein Urine Negative (Negative); Specific Grav Ur 1.005 (1.001-1.035); Squamous Epithelial Cell Urine None Seen /hpf (Few); WBC Urine 21-50 /hpf (0-3); pH Urine 7.5 (5.0-9.0)
[2025-04-11] MEDS: CEPHALEXIN 500 MG CAPSULE PO (21:12)
== END 2025-04-12 00:20 | disposition home or self-care (01) ==
PROVIDERS: Emergency Provider Physician Assistant; PCP Student in an Organized Health Care Education/Training Program
DX: T83.010A Breakdown (mechanical) of cystostomy catheter, initial encounter (principal); R82.90 Unspecified abnormal findings in urine; G82.20 Paraplegia, unspecified; I10 Essential (primary) hypertension; E11.9 Type 2 diabetes mellitus without complications; Z85.72 Personal history of non-Hodgkin lymphomas
CPT/HCPCS: 51705; 81001; 87086; 99283; A9270

== ENCOUNTER 2025-05-09 17:36 | Emergency (ER) | payer MEDICARE, MEDICAID, SELFPAY ==
[2025-05-09 17:38] VITALS: BP 125/74; PULSE 68; RESP 18; TEMP 37.1; O2SAT 95
--- NOTE | 2025-05-09 18:05 | ED.GENADULT ---
HPI - General Adult General Chief complaint: Urogenital-Female Stated complaint: suprapubic catheter issue Time Seen by Provider: 05/09/25 17:43 History of Present Illness HPI narrative: 69-year-old female history of paraplegia and indwelling suprapubic catheter presents to the emergency department for complaint of decreased urinary output from her catheter. Patient states she last had the catheter changed approximately 1 month ago. Patient does report history of bladder stones and is having follow-up with Urology next week. Related Data Allergies Allergy/AdvReac Type Severity Reaction Status Date / Time codeine Allergy Unknown rash Verified 02/24/25 17:37 Review of Systems Review of Systems: All systems reviewed & are unremarkable except as noted in HPI and below PMFSH Past Medical History Medical History Suprapubic catheter Reis catheter in place Pneumonia HTN (hypertension) Diabetes mellitus Surgical History Surgical History History of back surgery Hx of appendectomy Social History Social History Smoking status: Former smoker Exam Narrative: APPEARANCE: Well appearing, no pain, no distress, well-nourished. HEAD: normocephalic, atraumatic. EYES: PERRLA/EOMI, conjunctivae clear. NOSE: Normal no drainage EARS:TMS clear with good light reflex. THROAT: Pharynx clear, no exudate. NECK: Supple. No adenopathy, no masses. RESPIRATORY: Airway patent, respirations nonlabored. Clear to auscultation bilaterally, no rales, rhonchi, wheezing. CARDIOVASCULAR: Regular rate and rhythm without murmurs rubs or gallops. ABDOMINAL: Suprapubic catheter site is well-appearing with no localized erythema MUSCULOSKELETAL: Moves all extremities. Strength/ROM intact, No edema, No calf tenderness. NEURO: Alert and at her neuro baseline SKIN: Warm, dry. Normal Color Course Vital Signs Vital signs: Vital Signs Temperature 98.7 F 05/09/25 17:38 Pulse Rate 68 05/09/25 17:38 Respiratory Rate 18 05/09/25 17:38 Blood Pressure 125/74 05/09/25 17:38 Pulse Oximetry 95 05/09/25 17:38 Oxygen Delivery Room Air 05/09/25 17:38 Temperature 98.0 F 05/09/25 23:26 Pulse Rate 65 05/09/25 23:26 Respiratory Rate 17 05/09/25 23:26 Blood Pressure 112/69 05/09/25 23:26 Pulse Oximetry 97 05/09/25 23:26 Oxygen Delivery Room Air 05/09/25 17:38 Procedures Other Procedure Procedure 1: Other Procedure: Suprapubic Reis catheter exchange A size 16F Reis catheter inserted by Vijay Marte. Indication: Prolonged urinary retention. Procedure and purpose of Reis catheter explained to patient. Patient denies allergies to iodine, orthopedic limitations, or previous genitourinary surgeries. Balloon inflated with 10 mL of sterile saline. Patient verbalized no discomfort or pain with balloon inflation or during the procedure. Elizabeth-care provided before and after procedure. Catheter tubing secured to right upper thigh with stat lock. Drainage bag attached, tubing coiled loosely with no kinks, bag is below bladder level on bed frame. Urine drained with procedure 250 mL. Patient resting comfortably; instructed the patient to notify the nurse if develops any bladder pain, discomfort, or spasms. Patient verbalized understanding. Medical Decision Making MDM Narrative Medical decision making narrative: Suprapubic catheter was exchanged as described in the procedure note. UA was significant for urinary tract infection, urine culture was ordered, patient has previous urine culture sensitivity showing response to Rocephin patient was started Keflex and discharged home on Keflex. Differential Diagnosis Differential Diagnosis: Catheter issue, UTI Vital Signs Vital Signs: Vital Signs Temperature 98.7 F 05/09/25 17:38 Pulse Rate 68 05/09/25 17:38 Respiratory Rate 18 05/09/25 17:38 Blood Pressure 125/74 05/09/25 17:38 Pulse Oximetry 95 05/09/25 17:38 Oxygen Delivery Room Air 05/09/25 17:38 Temperature 98.0 F 05/09/25 23:26 Pulse Rate 65 05/09/25 23:26 Respiratory Rate 17 05/09/25 23:26 Blood Pressure 112/69 05/09/25 23:26 Pulse Oximetry 97 05/09/25 23:26 Oxygen Delivery Room Air 05/09/25 17:38 Lab Data Labs: Lab Results 05/09/25 Range/Units 18:32 Urine Color Yellow (Yellow) Urine Appearance Cloudy H (Clear) Urine pH 7.0 (5.0-9.0) Ur Specific [place] 1.011 (1.001-1.035) Urine Protein Negative (Negative) mg/dL Urine Glucose (UA) Negative (Negative) mg/dL Urine Ketones Negative (Negative) mg/dL Ur Blood (Man) 1+ H (Negative) Urine Nitrate Positive H (Negative) Urine Bilirubin Negative (Negative) Urine Urobilinogen 1.0 (<2.0) mg/dL Leukocyte Esterase Rfl 3+ H (Negative) EVETTE/UL Urine RBC 6-10 H (0-2) /hpf Urine WBC 51-100 H (0-3) /hpf Ur Squamous Epith Cells Occasional (Few) /hpf Urine Bacteria 4+ H /hpf Urine Casts 0-2 Discharge Plan Discharge Clinical Impression: Complication of catheter, Urinary tract infection Patient Disposition: Home Condition: Stable Instructions: Antibiotic Form, Reis Catheter Placement and Care (ED) Additional Instructions: Antibiotic as directed until completed. Have close follow-up with Urology as scheduled. Catheter care as directed. If you have any worsening symptoms then please call or return to the emergency department. Patient Language: Korean Prescriptions: New cephalexin 500 mg capsule 500 mg PO Q8H 7 Days Qty: 21 0RF Discontinued cephalexin 500 mg capsule 500 mg PO Q6H 7 Days Qty: 28 0RF sulfamethoxazole-trimethoprim [Bactrim DS] 800-160 mg tablet 1 tablet PO Q12H Qty: 14 0RF cephalexin 500 mg capsule 500 mg PO Q8H 7 Days Qty: 21 0RF cephalexin 500 mg capsule 500 mg PO Q12H 7 Days Qty: 14 0RF Follow-up/Referrals: Elise,Elva Cha DO [Primary Care Provider] -
[2025-05-09 18:21] VITALS: BP 121/81; PULSE 60; RESP 18; O2SAT 97
--- NOTE | 2025-05-09 18:21 | PC.NURSE ---
suprapubic catheter exchanged by Dr. Vijay Marte. 16 fr placed with 10ml saline in balloon. catheter patent, and draining efficiently
--- OUTSIDE RECORDS SUMMARY | 2025-05-09 18:49 | XMS_ITS | Encounter Summary ---
Author Organization [facility] Address [address] [place] [address] Phone Care Team Providers Care Ocular Pathologist Name Role Phone Victoriano Reid MD Primary Care Provider [phone] Malissa Joe RN Unavailable Unavailable Malissa Joe RN Unavailable Unavailable Elva Olivares DO Primary Care Provider [phone] Hinton CORNCOB PIPES ASSEMBLER Unavailable Cabrera Smallwood MD Unavailable [phone] Viktoriya Arias [employer]NCOB PIPES ASSEMBLER Unavailable Unavailab le Reason for Visit * Reason Comments Medication Refill Encounter Details Date Type Department Care Team (Late st Contact Info) Description 08/28/2022 Refill [facility] - Family Medicine [facility] [address] [place] [id number] Victoriano Reid MD [address] [place] [address] Medication Refill Social History Tobacco Use Types [...] Yara Peacock RN - 08/28/2022 11:03 AM ORIENTATION AND MOBILITY INSTRUCTOR Medication failed the protocol, provider to review [...] Dept 01/05/22 Office Visit Nia Abbott PAC [facility] [place] Showing recent visits within past 365 days and meeting all other requirements Future Appointments Date Type Provider Dept 08/29/22 Appointment Victoriano Reid MD [facility] Showing future appointments within next 90 days and meeting all other requirements NTATION AND MOBILITY INSTRUCTOR documented in this encounter Plan of Treatment Upcoming Encounters Date Type Department Care Team (Latest Contact Info) Description 05/12/2025 1:30 PM CDT Clinical Support [facility] [address] [place] [address] NurseKen Urology 06/02/2025 12:10 PM CDT Hospital Encounter [facility] Periop [address] [place] [address] Cabrera Yadav MD [address] [facility] [address] [place] [address] 06/02/2025 12:10 PM CDT - 06/02/2025 2:40 PM CDT Surgery [facility] Periop [address] [place] [address] Cabrera Yadav MD #2 [facility] [address] [place] [address] CYSTOSCOPY AND LITHOLAPAXY, PATIENT WILL NEED A PAUL LIFT Scheduled Procedures Name Priority Associated Diagnoses Date/Ti me CYSTOSCOPY BLADDER STONE BLADDER STONES 06/02/2025 12:10 PM CDT documented as of this encounter Visit Diagnoses Not on filedocumented in this encounter Additional Health Concerns Assessment Noted Time PHQ-9 Depression Total Score: 0 08/15/20 21 10:00 AM CDT documented as of this encounter Care Teams Ocular Pathologist Relationship Specialty Start Date End Date Victoriano Reid MD PCP - General Family Medicine 06/19/19 06/29/24 Elva Olivares DO [address] [address] PCP - General Family Medicine 07/01/24 Malissa Joe, RN [place] Nurse Family Support Specialist 12/03/23 12/03/23 Malissa Joe, RN [place] Nurse Family Support Specialist 12/05/23 12/05/23 Hinton LSW [place] Talent Acquisition Relationship Manager Family Support Specialist 11/03/24 Cabrera Yadav MD [address] [address] Consulting Physician Urology 11/07/24 Viktoriya Arias LSW [place] Talent Acquisition Relationship Manager Family Support Specialist 04/22/25 documented as of this encounter
--- OUTSIDE RECORDS SUMMARY | 2025-05-09 18:49 | XMS_ITS | Encounter Summary ---
Author Organization [facility] Address [address] [facility] [place] [address] Phone Care Team Providers Care Gravure Press Set Up Operator Name Role Phone Victoriano Reid MD Primary Care Provider [phone] Elva Olivares DO Primary Care Provider [phone] Hinton SHOE HANDLER Unavailable Unavai Cabrera Dodge MD Unavailable [phone] Viktoriya Arias SHOE HANDLER Unavailable Unavailab le Encounter Details Date Type Department Care Team (Late st Contact Info) Description 03/19/2024 Lab Requisition [facility] Laboratory Services [address] [place] [address] Victoriano Reid MD [address] [place] [address] Personal history of urinary (tract) infections; Encounter for fitting and adjustment of urinary device Social History Tobacco Use Types Packs/Day Years Used Date Smoking Tobacco: Every Day Cigarettes Smokeless Tobacco: Never Alcohol Use Standard Drinks/Week Comments Not Currently 0 (1 standard drink = 0.6 oz pur e alcohol) [facility] Utilities Answer Date Recorded In the past 12 months has [employer] electric, gas, oil, or water company threatened to shut off services in your home? No 12/20/2023 Social Connection and Isolation Panel Answer Date Recorded In a typical week, how many times do you talk on the phone with family, friends, or neighbors? More than three times a week 12/20/2023 How often do you get togethe r with friends or relatives? More than three times a week 12/20/2023 How often do you attend chur ch or jew services? Never 12/20/2023 Do you belong to any clubs o r organizations such as restorationist groups, unions, fraternal or athletic groups, or [...] Total Score - Questions 1-9 0 12/14 [facility] of Occupat ional Health - Occupational Stress [...] Description 05/12/2025 1:30 PM CDT Clinical Support [facility] [address] [place] [address] NurseKen Urology 06/02/2025 12:10 PM CDT Hospital Encounter [facility] Periop [address] [facility] [address] Cabrera Yadav MD [address] [address] 06/02/2025 12:10 PM CDT - 06/02/2025 2:40 PM CDT Surgery [facility] Periop [address] [place] [address] Cabrera Yadav MD [address], [place] [address] CYSTOSCOPY AND LITHOLAPAXY, PATIENT WILL NEED A [...] KLEBSIELLA OXYTOCA 03/21/2024 3:42 PM CDT [facility] CULTURE RESULTS ESCHERICHIA COLI 03/21/2024 3:42 PM CDT [facility] Culture Non-Phlebotomy Collection / Unknown 03/19/2024 [...] S Final Result [facility] [address] [place] [address], * (ABNORMAL) URINALYSIS REFLEX IF INDICATED BY ABNORMAL RESULTS (03/19/2024 2:45 PM CDT) SPECIFIC GRAVITY 1.010 1.003 - 1.030 03/19/2024 4:01 PM CDT [facility] URINE PH 7.0 5.0 - 9.0 03/19/2024 4:01 PM CDT [facility] WBC ESTERASE 500 /uL(A) Negative 03/19/2024 4:01 PM CDT [facility] NITRITE Positive(A) Negative 03/19/2024 4:01 PM CDT [facility] PROTEIN, RANDOM URINE 15 mg/dL(A) Negative 03/19/2024 4:01 PM CDT [facility] URINE GLUCOSE, QUAL Negative Negative 03/19/2024 4:01 PM CDT [facility] URINE KETONES Negative Negative 03/19/2024 4:01 PM CDT [facility] UROBILINOGEN Normal Normal mg/dL 03/19/2024 4:01 PM CDT [facility] URINE BLOOD 150 /uL(A) Negative josefa/ul 03/19/2024 4:01 PM CDT [facility] URINALYSIS COLOR Yellow 03/19/2024 4:01 PM CDT [facility] URINALYSIS CLARITY Slightly Cloudy 03/19/2024 4:01 PM CDT [facility] WBC (Urine) 21-50(A) Negative, 0-5 /hpf 03/19/2024 4:01 PM CDT [facility] URINE RBC'S 21-50(A) Negative, 0-2 /hpf 03/19/2024 4:01 PM CDT [facility] EPITHELIAL CELLS Occasional /lpf 03/19/2024 4:01 PM CDT [facility] BACTERIA, URINE Many(A) Negative /hpf 03/19/2024 4:01 PM CDT [facility] Urine Non-Phlebotomy Collection / Unknown 03/19/2024 2:45 PM CDT 03/19/2024 3:38 PM CDT us Victoriano Reid MD URINE ORDERABLES Final Result [facility] [address] [place] [address] documented in this encounter Visit Diagnoses Diagnosis Personal history of urinary (tract) infections Encounter for fitting and adjustment of urinary device documented in this encounter Additional Health Concerns Assessment Noted Time PHQ-9 Depression Total Score: 0 08/15/20 21 10:00 AM CDT documented as of this encounter Care Teams Gravure Press Set Up Operator Relationship Specialty Start Date End Date Victoriano Reid MD PCP - General Family Medicine 06/19/19 06/29/24 Elva Olivares DO 2 [facility] [address] [place] [address] PCP - General Family Medicine 07/01/24 Hinton LSW [place] Inclusion Teacher Associate Spa Director 11/03/24 Cabrera Yadav MD [address] [facility] [address] [place] [address] Consulting Physician Urology 11/07/24 Viktoriya Arias LSW [place] Inclusion Teacher Associate Spa Director 04/22/25 documented as of this encounter
--- OUTSIDE RECORDS SUMMARY | 2025-05-09 18:49 | XMS_ITS | Encounter Summary ---
Author Organization [facility] Address [address] [facility] [place] [address] Phone Care Team Providers Care Fuel Cell Battery Technician Name Role Phone Victoriano Reid MD Primary Care Provider [phone] Malissa Joe RN Unavailable Unavailable Malissa Joe RN Unavailable Unavailable Elva Olivares DO Primary Care Provider [phone] [place] LOGISTICS ENGINEERING MANAGER Unavailable UnaCabrera Nevarez MD Unavailable [phone] Viktoriya Arias LOGISTICS ENGINEERING MANAGER Unavailable Unavailab le Encounter Details Date Type Department Care Team (Late st Contact Info) Description 04/25/2021 [facility] 1 [place] [id number] Victoriano Reid MD #1 [place] [address] Neuromuscular dysfunction of bladder, unspecified Social History [...] Description 05/12/2025 1:30 PM CDT Clinical Support [facility] #2 [place] [address] NurseKen Urology 06/02/2025 12:10 PM CDT [facility] 1 [place] [address] Cabrera Yadav MD #[address] [address] 06/02/2025 12:10 PM CDT - 06/02/2025 2:40 PM CDT Surgery [facility] Periop 1 [place] [address] Cabrera Yadav MD #[address] [address] CYSTOSCOPY AND LITHOLAPAXY, PATIENT WILL NEED A [...] S, COAGULASE NEGATIVE 05/01/2021 7:37 AM CDT [facility] Urine Non-Phlebotomy Collection / Unknown [...] S Final Result [facility] [address] [place] [address], * (ABNORMAL) URINALYSIS REFLEX IF INDICATED BY ABNORMAL RESULTS (04/25/2021 4:00 PM CDT) [facility] SPECIFIC GRAVITY 1.010 1.003 - 1.030 04/25/2021 5:43 PM CDT [facility] URINE PH 8.0 5.0 - 9.0 04/25/2021 5:43 PM CDT [facility] WBC ESTERASE 500 /uL(A) Negative 04/25/2021 5:43 PM CDT [facility] NITRITE Positive(A) Negative 04/25/2021 5:43 PM CDT [facility] PROTEIN, RANDOM URINE 100 mg/dL(A) Negative 04/25/2021 5:43 PM CDT [facility] URINE GLUCOSE, QUAL Negative Negative 04/25/2021 5:43 PM CDT [facility] URINE KETONES Negative Negative 04/25/2021 5:43 PM CDT [facility] UROBILINOGEN Normal Normal mg/dL 04/25/2021 5:43 PM CDT [facility] URINE BILIRUBIN Negative Negative 5:43 PM CDT [facility] URINE BLOOD 250 /uL(A) Negative josefa/ul 04/25/2021 5:43 PM CDT [facility] URINALYSIS COLOR Dark Yellow 04/25/2021 5:[address] [facility] URINALYSIS CLARITY Very Cloudy 04/25/2021 5:43 PM CDT [facility] WBC (Urine) 6-10(A) Negative, 0-5 /hpf 04/25/2021 5:43 PM CDT [facility] URINE RBC'S 21-50(A) Negative, 0-2 /hpf 04/25/2021 5:43 PM CDT [facility] EPITHELIAL CELLS Occasional /lpf 04/25/2021 5:43 PM CDT [facility] BACTERIA, URINE Many(A) Negative /hpf 04/25/2021 5:43 PM CDT [facility] Urine Non-Phlebotomy Collection / Unknown 04/25/2021 4:00 PM CDT 04/25/2021 5:20 PM CDT us Victoriano Reid MD URINE ORDERABLES Final Result [facility]1 [facility] [place] [address] documented in this encounter Visit Diagnoses Diagnosis Neuromuscular dysfunction of bladder, unspecified documented in this encounter Additional Health Concerns Assessment Noted Time PHQ-9 Depression Total Score: 0 10/24/19 20 11:16 AM POWER SYSTEM ELECTRICAL ENGINEER documented as of this encounter Care Teams Fuel Cell Battery Technician Relationship Specialty Start Date End Date Victoriano Reid MD PCP - General Family Medicine 06/19/19 06/29/24 Elva Olivares DO 2 [facility] [address] [address] PCP - General Family Medicine 07/01/24 [place]issa Joe, RN [place] Nurse Timber Cruiser 12/03/23 12/03/23 [place] Joe, RN [place] Nurse Timber Cruiser 12/05/23 12/05/23 Hinotn LSW MD Roll Carrier Timber Cruiser 11/03/24 Cabrera Yadav MD #[address] [address] Consulting Physician Urology 11/07/24 Viktoriya Arias, SHIRLEY MD Roll Carrier Timber Cruiser 04/22/25 documented as of this encounter
--- OUTSIDE RECORDS SUMMARY | 2025-05-09 18:49 | XMS_ITS | Encounter Summary ---
Author Organization [facility] Address [address] [place] [address] Phone Care Team Providers Care Warehouse Team Member Name Role Phone Victoriano Reid MD Primary Care Provider [phone] Elva Olivares DO Primary Care Provider [phone] [place] NON PROFIT FINANCIAL CONTROLLER Unavailable UnaCabrera Nevarez MD Unavailable [phone] Viktoriya Arias NON PROFIT FINANCIAL CONTROLLER Unavailable Unavailab le Reason for Visit * Reason Comments Medication Refill Encounter Details Date Type Department Care Team (Late st Contact Info) Description 02/22/2024 Refill [facility] - Family Medicine [facility] #2 [place] [address] Victoriano Reid MD #1 [place] [address] Medication Refill Social History Tobacco Use Types Packs/Day Years Used Date Smoking Tobacco: Every Day Cigarettes Smokeless Tobacco: Never Alcohol Use Standard Drinks/Week Comments Not Currently 0 (1 standard drink = 0.6 oz pur e alcohol) [facility] Utilities Answer Date Recorded In the [...] often do you attend chur ch or church services? Never 12/20/2023 Do you belong to any clubs o r organizations such as moravian groups, unions, fraternal or athletic groups, or [...] Total Score - Questions 1-9 0 12/14 [facility] - Occupational Stress Questionnaire Answer Date Recorded [...] in a senior living (including now)? No 12/20/2023 Education Answer Date [...] Pending Prescriptions Disp Refills ergocalciferol (VITAMIN D) 25110 UNIT Capsule [Pharmacy Med Name: VITAMIN D2 [...] MD [facility] Rogers 10/23/23 Telemedicine Miriam Prasad, SLACKMAN, SOFT METALS HAND ENGRAVER [facility] Ken 03/29/23 Office [...] Description 05/12/2025 1:30 PM CDT Clinical Support [facility] #2 [place] [address] Nurse, Ken Urology 06/02/2025 12:10 PM CDT [facility] 1 [place] [address] Cabrera Yadav MD #[address] [address] 06/02/2025 12:10 PM CDT - 06/02/2025 2:40 PM CDT [facility] 1 [place] [address] Cabrera Yadav MD #[address] [address] CYSTOSCOPY AND LITHOLAPAXY, PATIENT WILL NEED A PAUL LIFT Scheduled Procedures Name Priority Associated Diagnoses Date/Ti ia CYSTOSCOPY BLADDER STONE BLADDER STONES 06/02/2025 12:10 PM CDT documented as of this encounter Visit Diagnoses Diagnosis Vitamin D deficiency Unspecified vitamin D deficiency documented in this encounter Additional Health Concerns Assessment Noted Time PHQ-9 Depression Total Score: 0 08/15/20 21 10:00 AM CDT documented as of this encounter Care Teams Warehouse Team Member Relationship Specialty Start Date End Date Victoriano Reid MD PCP - General Family Medicine 06/19/19 06/29/24 Elva Olivares DO 2 [facility] [facility]. [address] [place] [address] PCP - General Family Medicine 07/01/24 Hinton LSW [place] Oral Pathologist Microbiology Manager 11/03/24 Cabrera Yadav MD #2 [facility] [address] [place] [address] Consulting Physician Urology 11/07/24 Viktoriya Arias LSW [place] Oral Pathologist Microbiology Manager 04/22/25 documented as of this encounter
--- OUTSIDE RECORDS SUMMARY | 2025-05-09 18:49 | XMS_ITS | Encounter Summary ---
Author Organization [facility] Address [address] [facility] [place] [address] Phone Care Team Providers Care Pc Technician Name Role Phone Victoriano Reid MD Primary Care Provider [phone] Elva Olivares DO Primary Care Provider [phone] [place] TUBE BALANCER Unavailable Unavai Cabrera Dodge MD Unavailable [phone] Viktoriya Arias TUBE BALANCER Unavailable Unavailab le Encounter Details Date Type Department Care Team (Late st Contact Info) Description 05/27/2024 Lab Requisition [facility] Laboratory Services 1 [place] [phone] Singh Myrick, SURGICAL SPECIALIST, STAFF ELECTRONIC WARFARE OFFICER #2 [place] [address] Type 2 diabetes mellitus without complications (HCC); Other shelter (current) drug therapy Social History Tobacco Use Types Packs/Day Years Used Date Smoking Tobacco: Every Day Cigarettes 2 15 Smokeless Tobacco: Never Alcohol Use Standard Drinks/Week Comments Not Currently 0 (1 standard drink = 0.6 oz pur e alcohol) [facility] Utilities Answer Date Recorded In the past 12 months has e electric, gas, oil, or water company threatened to shut off services in your home? Yes 04/15/2024 Social Connection and Isolation Panel Answer Date Recorded In a typical week, how many times do you talk on the phone with family, friends, or neighbors? More than three times a week 04/15/2024 How often do you get togethe r with friends or relatives? Twice a week 04/15/2024 How often do you attend chur ch or scientologist services? Never 04/15/2024 Do you belong to any clubs o r organizations such as roman catholic groups, unions, fraternal or athletic groups, [...] - Questions 1-9 0 12/14 [facility] - Occupational Stress Questionnaire Answer Date [...] any time in the past 12 m [facility], were you homeless or living in a [...] Description 05/12/2025 1:30 PM CDT Clinical Support [facility] UROLOGY #2 [place] [phone] NurseKen Urology 06/02/2025 12:10 PM CDT Hospital Encounter [facility] Periop 1 [facility] [place] [address] Cabrera Yadav MD #[address], [address] [place] [address] 06/02/2025 12:10 PM CDT - 06/02/2025 2:40 PM CDT [facility] 1 [facility] [place] [address] Cabrera Yadav MD #[address] [address], [facility] [address] [place] [address] CYSTOSCOPY AND LITHOLAPAXY, PATIENT WILL NEED A PAUL LIFT Scheduled Procedures Name Priority Associated Diagnoses Date/Ti me CYSTOSCOPY BLADDER STONE BLADDER STONES 06/02/2025 12:10 PM CDT documented as of this encounter Procedures Procedure Name Priority Date/Time Associated Diagnosis Comments CBC WITH AUTO DIFFERENTIAL Routine 05/27/2024 1:00 PM CDT Type 2 diabetes mellitus without complications (HCC) Other petroleum terminal plant operator (current) drug therapy UR MICROALBUMIN/CREATIN INE RATIO RANDOM Routine 05/27/2024 1:00 PM CDT Type 2 diabetes mellitus without complications (HCC) Other petroleum terminal plant operator (current) drug therapy LIPID PANEL Routine 05/27/2024 1:00 PM CDT Type 2 diabetes mellitus without complications (HCC) Other petroleum terminal plant operator (current) drug therapy CMP (COMPREHENSIVE METABOLIC PANEL) Routine 05/27/2024 1:00 PM CDT Type 2 diabetes mellitus without complications (HCC) Other petroleum terminal plant operator (current) drug therapy COMPLETE BLOOD COUNT (CBC) WITH DIFF Routine 05/27/2024 1:00 PM CDT Type 2 diabetes mellitus without complications (HCC) Other shelter (current) drug therapy documented in this encounter Results * (ABNORMAL) CBC WITH AUTO DIFFERENTIAL (05/27/2024 1:00 PM CDT) WBC 9.90 4.00 - 12.00 10(3)/mcL 05/27/2024 2:52 PM CDT [facility] RBC 4.48 3.80 - 5.30 10(6)/[facility] 05/27/2024 2:52 PM CDT [facility] HEMOGLOBIN (HGB) 14.8 12.0 - 15.8 g/dL 05/27/2024 2:52 PM CDT [facility] HEMATOCRIT (HCT) 45.0 36.0 - 47.0 % 05/27/2024 2:52 PM CDT [facility] MCV 100.4(H) 82.0 - 96.0 fL 05/27/2024 2:52 PM CDT [facility] MCH 33.0 26.0 - 34.0 pg 05/27/2024 2:52 PM CDT [facility] MCHC 32.9 31.0 - 36.0 g/dL 05/27/2024 2:52 PM CDT [facility] PLATELET COUNT 160 140 - 440 10(3)/[facility] 05/27/2024 2:52 PM CDT [facility] RDW 14.9 11.8 - 15.5 % 05/27/2024 2:52 PM CDT [facility] MPV 12.0 9.7 - 12.4 fL 05/27/2024 2:52 PM CDT [facility] NEUTROPHILS 54.2 47.0 - 73.0 % 05/27/2024 2:52 PM CDT [facility] LYMPHOCYTES 35.4 18.0 - 42.0 % 05/27/2024 2:52 PM CDT [facility] MONOCYTES 7.1 4.0 - 12.0 % 05/27/2024 2:52 PM CDT [facility] EOSINOPHILS 2.5 0.0 - 5.0 % 05/27/2024 2:52 PM CDT [facility] BASOPHILS 0.8 0.0 - 1.0 % 05/27/2024 2:52 PM CDT [facility] ABSOLUTE NEUTROPHILS 5.37 1.60 - 7.70 10(3)/mcL 05/27/2024 2:52 PM CDT [facility] ABSOLUTE LYMPHOCYTES 3.50(H) 1.30 - 3.20 10(3)/[facility] 05/27/2024 2:52 PM CDT [facility] ABSOLUTE MONOCYTES 0.70 0.20 - 1.00 10(3)/[facility] 05/27/2024 2:52 PM CDT [facility] ABSOLUTE EOSINOPHIL 0.25 0.00 - 0.40 10(3)/[facility] 05/27/2024 2:52 PM CDT [facility] ABSOLUTE BASOPHILS 0.08 0.00 - 0.10 10(3)/[facility] 05/27/2024 2:52 PM CDT [facility] NRBC PER 100 WBC 0 05/27/20 2:52 PM CDT [facility] Blood No Phlebotomy Charged / Unknown 05/27/2024 1:00 PM CDT 05/27/2024 2:30 PM CDT us Singh Myrick APRN, STAFF ELECTRONIC WARFARE OFFICER HEMATOLOGY ORDER SERVANDO Final Result [facility] #1 [place] [address] * (ABNORMAL) UR MICROALBUMIN/CREATININE RATIO RANDOM (05/27/2024 1:00 PM CDT) RAN UR MICROALBUMIN 0.89 mg/dL 05/27/2024 3:00 PM CDT [facility] Comment:No reference range h as been established. Consider Clinical Correlation. CREATININE URINE 7.4 mg/dL 05/27/20 3:00 PM CDT [facility] Comment:No reference range h as been established. Consider Clinical Correlation. ALB/CREAT RATIO 120(H) 0 - 30 mg/g CRE 05/27/2024 3:00 PM CDT [facility] Urine Non-Phlebotomy Collection / Unknown 05/27/2024 1:00 PM CDT 05/27/2024 2:30 PM CDT Singh Myrick APRN, CNP URINE ORDERABLES Final Result Performing Organization Address City/[facility] Co de Phone Number [facility] #[address] [place] [address] * LIPID PANEL (05/27/2024 1:00 PM CDT) CHOLESTEROL 158 <200 mg/dL 05/27/2024 3:21 PM CDT [facility] TRIGLYCERIDES 95 <150 mg/dL 05/27/2024 3:21 PM CDT [facility] HDL CHOLESTEROL 42 >40 mg/dL 3:21 PM CDT [facility] LDL 97 <130 mg/dL 05/27/2024 3:21 PM CDT [facility] VLDL 19 10 - 50 mg/dL 05/27/2024 3:21 PM CDT [facility] CHOL/HDL RATIO 3.8 0.0 - 4.4 05/27/2024 3:21 PM CDT [facility] NON-HDL CHOLESTEROL 116 <130 mg/dL 05/27/2024 3:21 PM CDT [facility] Blood No Phlebotomy Charged / Unknown 05/27/2024 1:00 PM CDT 05/27/2024 2:30 PM CDT Singh Myrick APRN, CNP CHEMISTRY ORDERA BLES Final Result Performing Organization Address City/[facility]/ZIP Co de Phone Number [facility] #[address] [place] [address] * (ABNORMAL) CMP (COMPREHENSIVE METABOLIC PANEL) (05/27/2024 1:00 PM CDT) SODIUM 141 136 - 145 mmol/L 05/27/2024 3:21 PM CDT [facility] POTASSIUM 4.1 3.5 - 5.1 mmol/L 05/27/2024 3:21 PM CDT [facility] CHLORIDE 107 98 - 107 mmol/L 05/27/2024 3:21 PM CDT [facility] CO2, VENOUS 26 22 - 30 mmol/L 05/27/2024 3:21 PM CDT [facility] ANION GAP 12.1 <18.0 mmol/L 05/27/2024 3:21 PM CDT [facility] GLUCOSE 128(H) 70 - 99 mg/dL 05/27/2024 3:21 PM CDT [facility] BUN 16 10 - 20 mg/dL 05/27/2024 3:21 PM T [facility] CREATININE, BLOOD 0.72 0.60 - 1.00 mg/dL 05/27/2024 3:21 PM CDT [facility] BUN/CREATININE RATIO 22(H) 12 - 20 ratio 05/27/2024 3:21 PM CDT [facility] TOTAL PROTEIN 7.0 6.3 - 8.2 g/dL 05/27/2024 3:21 PM CDT [facility] ALBUMIN 4.0 3.5 - 5.0 g/dL 05/27/2024 3:21 PM T [facility] A/G RATIO 1.3 1.0 - 2.2 05/27/2024 3:21 PM CDT [facility] CALCIUM 9.7 8.7 - 10.5 mg/dL 05/27/2024 3:21 PM CDT [facility] T BILI 0.3 0.2 - 1.2 mg/dL 05/27/2024 3:21 PM CDT [facility] SGOT (AST) 15 5 - 34 U/L 05/27/2024 3:21 PM CDT [facility] SGPT (ALT) 9 0 - 55 U/L 05/27/2024 3:21 PM CDT [facility] ALKALINE PHOSPHATASE 66 40 - 150 U/L 05/27/2024 3:21 PM CDT [facility] GFR, ESTIMATED >60 >=60 05/27/2024 3:21 PM CDT [facility] Comment: Creatinine Clearance is the preferred criteria for selecting drug dose adjustments in renally impaired patients. The GFR is provided as additional pertinent clinical information. GFR is reported in mL/min/1.73 sq m. Calculation based on the Chronic Kidney Disease Epidemiology Collaboration (CKD- EPI) equation refit without adjustment for race. GFR, EST. >60 >=60 024 3:21 PM CDT [facility] GFR, EST. NONAFRICAN >60 >=60 05/27/2024 3:21 PM CDT [facility] Blood No Phlebotomy Charged / Unknown 05/27/2024 1:00 PM CDT 05/27/2024 2:30 PM CDT us Singh Myrick APRN, STAFF ELECTRONIC WARFARE OFFICER CHEMISTRY ORDERA BLES Final Result [facility] #1 [place] [address] documented in this encounter Visit Diagnoses Diagnosis Type 2 diabetes mellitus without complications Type II or unspecified type diabetes mellitus without mention of complication, not stated as uncontrolled Other shelter (current) drug therapy documented in this encounter Additional Health Concerns Assessment Noted Time PHQ-9 Depression Total Score: 0 08/15/20 21 10:00 AM CDT documented as of this encounter Care Teams Pc Technician Relationship Specialty Start Date End Date Victoriano Reid MD PCP - General Family Medicine 06/19/19 06/29/24 Elva Olivares DO 2 [facility] [address] [address] PCP - General Family Medicine 07/01/24 Hinton, SHIRLEY [place] Learning And Development Specialist Spray Painting Machine Operator 11/03/24 Cabrera Yadav MD #[address] [address] Consulting Physician Urology 11/07/24 Viktoriya Arias LSW [place] Learning And Development Specialist Spray Painting Machine Operator 04/22/25 documented as of this encounter
--- OUTSIDE RECORDS SUMMARY | 2025-05-09 18:49 | XMS_ITS | Encounter Summary ---
Author Organization [facility] Address [address] [place] [address] Phone Care Team Providers Care Dietary Internship Name Role Phone Victoriano Reid MD Primary Care Provider [phone] Malissa Joe RN Unavailable Unavailable Malissa Joe RN Unavailable Unavailable Elva Olivares DO Primary Care Provider [phone] [place] INSOLE COVERER Unavailable Cabrera Smallwood MD Unavailable [phone] Viktoriya Arias INSOLE COVERER Unavailable Unavailab le Reason for Visit * Reason Comments Medication Refill Encounter Details Date Type Department Care Team (Late st Contact Info) Description 09/06/2022 Refill [facility] Group - Family Medicine [facility] #[address] [place] [phone] Victoriano Reid MD #[address] [place] [address] Medication Refill Social History Tobacco Use Types [...] Provider Dept 09/19/22 Appointment Victoriano Reid MD Osm[facility] Rogers Showing [...] Provider Dept 09/19/22 Appointment Victoriano Reid MD Osmariela Rogers Showing future appointments within next 90 days and meeting all other requirements E SOURER documented in this encounter Plan of Treatment Upcoming Encounters Date Type Department Care Team (Latest Contact Info) Description 05/12/2025 1:30 PM CDT Clinical Support [facility] UROLOGY #2 [place] [address] Nurse, Ken Urology 06/02/2025 12:10 PM CDT [facility] [place] [address] Cabrera Yadav MD #2 [facility] [address] [place] [address] 06/02/2025 12:10 PM CDT - 06/02/2025 2:40 PM CDT [facility] 1 [place] [address] Cabrera Yadav MD #2 [facility] [address] [place] [address] CYSTOSCOPY AND LITHOLAPAXY, PATIENT WILL NEED A [...] documented as of this encounter Care Teams Dietary Internship Relationship Specialty Start Date End Date Victoriano Reid MD PCP - General Family Medicine 06/19/19 06/29/24 Elva Olivares DO 2 [facility] [address] [place] [address] PCP - General Family Medicine 07/01/24 Malissa Joe, RN [place] Nurse Receiving Supervisor 12/03/23 12/03/23 Malissa Joe, RN [place] Nurse Receiving Supervisor 12/05/23 12/05/23 [place] LSW [place] Service Car Operator Receiving Supervisor 11/03/24 Cabrera Yadav MD #[address] [address] Consulting Physician Urology 11/07/24 Viktoriya Arias, SHIRLEY [place] Service Car Operator Receiving Supervisor 04/22/25 documented as of this encounter
--- OUTSIDE RECORDS SUMMARY | 2025-05-09 18:49 | XMS_ITS | Encounter Summary ---
Author Organization [facility] Address [address] [place] [address] Phone Care Team Providers Care Rapid Outsole Stitcher Name Role Phone Victoriano Reid MD Primary Care Provider [phone] Elva Olivares DO Primary Care Provider [phone] [place] PRIVACY ANALYST Unavailable UnaCabrera Nevarez MD Unavailable [phone] Viktoriya Arias PRIVACY ANALYST Unavailable Unavailab le Reason for Visit * Reason Comments Medication Refill Encounter Details Date Type Department Care Team (Late st Contact Info) Description 01/19/2024 Refill [facility] Medical Group - Family Medicine [facility] [address] [place] [address] Victoriano Reid MD #[address] [place] [address] Medication Refill Social History Tobacco Use Types Packs/Day Years Used Date Smoking Tobacco: Every Day Cigarettes Smokeless Tobacco: Never Alcohol Use Standard Drinks/Week Comments Not Currently 0 (1 standard drink = 0.6 oz pur e alcohol) [facility] Utilities Answer Date Recorded In the [...] often do you attend chur ch or baptism services? Never 12/20/2023 Do you belong to [...] Total Score - Questions 1-9 0 12/14 [facility] - Occupational Stress Questionnaire Answer Date [...] MD [facility] 10/23/23 Telemedicine Miriam Prasad, HOTEL MAINTENANCE TECHNICIAN, LORI [facility] [place] 03/29/23 Office Visit Victoriano Reid MD [...] Description 05/12/2025 1:30 PM CDT Clinical Support [facility] #[address] [place] [address] Nurse, [place] [facility] 06/02/2025 12:10 PM CDT [facility] [address] [place] [address] Cabrera Yadav MD #[address] [address] 06/02/2025 12:10 PM CDT - 06/02/2025 2:40 PM CDT [facility] [address] [place] [address] Cabrera Yadav MD #[address] [address] CYSTOSCOPY AND LITHOLAPAXY, PATIENT WILL NEED A PAUL LIFT Scheduled Procedures Name Priority Associated Diagnoses Date/Ti wi CYSTOSCOPY BLADDER STONE BLADDER STONES 06/02/2025 12:10 PM CDT documented as of this encounter Visit Diagnoses Not on filedocumented in this encounter Additional Health Concerns Assessment Noted Time PHQ-9 Depression Total Score: 0 08/15/20 21 10:00 AM CDT documented as of this encounter Care Teams Rapid Outsole Stitcher Relationship Specialty Start Date End Date Victoriano Reid MD PCP - General Family Medicine 06/19/19 06/29/24 Elva Olivares DO 2 [facility] [address] [place] [address] PCP - General Family Medicine 07/01/24 Hinton LSW [place] General Office Assistant Freelance Patternmaker 11/03/24 Cabrera Yadav MD #2 [facility] [address] [place] [address] Consulting Physician Urology 11/07/24 Viktoriya Arias LSW [place] General Office Assistant Freelance Patternmaker 04/22/25 documented as of this encounter
--- OUTSIDE RECORDS SUMMARY | 2025-05-09 18:49 | XMS_ITS | Encounter Summary ---
Author Organization [facility] Address [address] [place] [address] Phone Care Team Providers Care Zipper Ironer Name Role Phone Victoriano Reid MD Primary Care Provider [phone] Malissa Joe RN Unavailable Unavailable Malissa Joe RN Unavailable Unavailable Elva Olivares DO Primary Care Provider [phone] [place] NETBACKUP ADMINISTRATOR Unavailable Cabrera Smallwood MD Unavailable [phone] Viktoriya Arias NETBACKUP ADMINISTRATOR Unavailable Unavailab le Reason for Visit * Reason Comments Medication Refill Encounter Details Date Type Department Care Team (Late st Contact Info) Description 11/04/2022 Refill [facility] Medical Group - Family Medicine [facility] #2 [place] [id number] Victoriano Reid MD [address]1 [place] [address] Medication Refill Social History Tobacco Use Types [...] Dept 09/19/22 Office Visit Victoriano Reid MD [facility] 01/05/22 Office Visit Nia [facility] PAC [facility] Showing recent visits within past 365 days and meeting all other requirements Future Appointments No visits were found meeting these conditions. Showing future appointments within next 90 days and meeting all other requirements EY SUPERINTENDENT documented in this encounter Plan of Treatment Upcoming Encounters Date Type Department Care Team (Latest Contact Info) Description 05/12/2025 1:30 PM CDT Clinical Support [facility] UROLOG[facility] #[address] [place] [address] Nurse, [place] [facility] 06/02/2025 12:10 PM CDT Hospital Encounter [facility] Periop 1 [place] [address] Cabrera Yadav MD #2 [facility], [address] [address] 06/02/2025 12:10 PM CDT - 06/02/2025 2:40 PM CDT Surgery [facility] Periop 1 [facility] [place] [address] Cabrera Yadav MD #2 [facility] [address] [place] [address] CYSTOSCOPY AND LITHOLAPAXY, PATIENT WILL NEED A [...] documented as of this encounter Care Teams Zipper Ironer Relationship Specialty Start Date End Date Victoriano Reid MD PCP - General Family Medicine 06/19/19 06/29/24 Elva Olivares DO 2 [facility] [address] [place] [address] PCP - General Family Medicine 07/01/24 Malissa Joe, DONYA [place] Nurse Developmental Mathematics Professor 12/03/23 12/03/23 Malissa Joe RN [place] Nurse Developmental Mathematics Professor 12/05/23 12/05/23 Hinton LSW [place] Appraiser [employer] Developmental Mathematics Professor 11/03/24 Cabrera Yadav MD #2 [facility] [address] [place] [address] Consulting Physician Urology 11/07/24 Viktoriya Arias LSW [place] Appraiser [employer] Developmental Mathematics Professor 04/22/25 documented as of this encounter
--- OUTSIDE RECORDS SUMMARY | 2025-05-09 18:49 | XMS_ITS | Encounter Summary ---
Author Organization [facility] Address [address] [place] [address] Phone Care Team Providers Care Insulation Hoseman Name Role Phone Victoriano Reid MD Primary Care Provider [phone] Elva Olivares DO Primary Care Provider [phone] [place] REGRIND MILL OPERATOR Unavailable UnaCabrera Nevarez MD Unavailable [phone] Viktoriya Arias REGRIND MILL OPERATOR Unavailable Unavailab le Reason for Visit * Reason Comments Medication Refill Encounter Details Date Type Department Care Team (Late st Contact Info) Description 02/23/2024 Refill [facility] Medical Group - Family Medicine [facility] #2 [place] [address] Victoriano Reid MD #1 [place] [address] Medication Refill Social History Tobacco Use Types Packs/Day Years Used Date Smoking Tobacco: Every Day Cigarettes Smokeless Tobacco: Never Alcohol Use Standard Drinks/Week Comments Not Currently 0 (1 standard drink = 0.6 oz pur e alcohol) [facility] Utilities Answer Date Recorded In the past [...] any clubs o r organizations such as mosque groups, unions, fraternal or athletic groups, or [...] Total Score - Questions 1-9 0 12/14 [facility] - Occupational Stress Questionnaire Answer Date [...] Requested Prescriptions Pending Prescriptions Disp Refills nystatin 036053 UNIT/GM Powder [Pharmacy Med Name: NYSTOP TOP [...] [place] 10/23/23 Telemedicine Miriam Prasad APRN, L[facility]I [facility] 03/29/23 Office Visit Victoriano Reid MD [facility] Showing recent visits within past 365 days and meeting all other requirements Future Appointments No visits were found meeting these conditions. Showing future appointments within next 90 days and meeting all other requirements documented in this encounter Plan of Treatment Upcoming Encounters Date Type Department Care Team (Latest Contact Info) Description 05/12/2025 1:30 PM CDT Clinical Support [facility]OLOGY #2 [place] [address] Nurse, [place] [facility] 06/02/2025 12:10 PM CDT [facility] 1 [place] [address] Cabrera Yadav MD #[address] [address] 06/02/2025 12:10 PM CDT - 06/02/2025 2:40 PM CDT Surgery [facility] [address] [place] [address] Cabrera Yadav MD #[address] [address] CYSTOSCOPY AND LITHOLAPAXY, PATIENT WILL NEED A [...] as of this encounter Care Teams Insulation Hoseman Relationship Specialty Start Date End Date Victoriano Reid MD PCP - General Family Medicine 06/19/19 06/29/24 Elva Olivares DO 2 [facility] [address] [place] [address] PCP - General Family Medicine 07/01/24 H[place] LSW [place] Milk Inspector Final Inspector Movement Assembly 11/03/24 Cabrera Yadav MD #2 [facility] [address] [place] [address] Consulting Physician Urology 11/07/24 Viktoriya Arias LSW [place] Milk Inspector Final Inspector Movement Assembly 04/22/25 documented as of this encounter
--- OUTSIDE RECORDS SUMMARY | 2025-05-09 18:49 | XMS_ITS | Encounter Summary ---
Author Organization [facility] Address [address] [place] [address] Phone Care Team Providers Care Blending Tank Tender Helper Name Role Phone Victoriano Reid MD Primary Care Provider [phone] Elva Olivares DO Primary Care Provider [phone] [place] URBAN PLANNING PROFESSOR Unavailable UnaCabrera Nevarez MD Unavailable [phone] Viktoriya Arias URBAN PLANNING PROFESSOR Unavailable Unavailab le Reason for Visit * Reason Comments Medication Refill Encounter Details Date Type Department Care Team (Late st Contact Info) Description 02/18/2024 Refill [facility] Medical Group - Family Medicine [facility] #2 [place] [address] Victoriano Reid MD #[address] [place] [address] Medication Refill Social History Tobacco Use Types Packs/Day Years Used Date Smoking Tobacco: Every Day Cigarettes Smokeless Tobacco: Never Alcohol Use Standard Drinks/Week Comments Not Currently 0 (1 standard drink = 0.6 oz pur e alcohol) [facility] Utilities Answer Date Recorded In [...] often do you attend chur ch or episcopal services? Never 12/20/2023 Do you belong to any clubs o r organizations such as mormonism groups, unions, fraternal or athletic groups, or [...] 12/14 [facility] - Occupational Stress Questionnaire Answer [...] [place] 10/23/23 Telemedicine Miriam Prasad APRN, [facility] Office Visit Victoriano Reid MD [facility] [...] Provider Dept 12/06/23 Telemedicine [facility] MD [facility] 10/23/23 Telemedicine Miriam Prasad APRN, L[facility] 03/29/23 Office Visit Victoriano Reid MD O[facility] [...] [facility] 10/23/23 Telemedicine Miriam Prasad APRN, DIESEL POWERPLANT MECHANIC [facility] 03/29/23 Office Visit Victoriano Reid MD [facility] Showing recent visits within past 365 days and meeting all other requirements Future Appointments No visits were found meeting these conditions. Showing future appointments within next 90 days and meeting all other requirements documented in this encounter Plan of Treatment Upcoming Encounters Date Type Department Care Team (Latest Contact Info) Description 05/12/2025 1:30 PM CDT Clinical Support [facility] UROLOGY #2 [place] [address] NurseKen Urology 06/02/2025 12:10 PM CDT Hospital Encounter [facility] Periop 1 [place] [address] Cabrera Yadav MD #2 [facility], [address] [address] 06/02/2025 12:10 PM CDT - 06/02/2025 2:40 PM CDT Surgery [facility] Periop [address] [place] [address] Cabrera Yadav MD #2 [facility] [address] [place] [address] CYSTOSCOPY AND LITHOLAPAXY, PATIENT WILL NEED A PAUL LIFT Scheduled Procedures Name Priority Associated Diagnoses Date/Ti la CYSTOSCOPY BLADDER STONE BLADDER STONES 06/02/2025 12:10 [...] documented as of this encounter Care Teams Blending Tank Tender Helper Relationship Specialty Start Date End Date Victoriano Reid MD PCP - General Family Medicine 06/19/19 06/29/24 Elva Olivares DO 2 [facility] [address] [place] [address] PCP - General Family Medicine 07/01/[address] Manager Of Digital Baby Sitter 11/03/24 Cabrera Yadav MD #2 [facility] [address] [place] [address] Consulting Physician Urology 11/07/24 Viktoriya Arias LSW [place] Manager Of Digital Baby Sitter 04/22/25 documented as of this encounter
--- OUTSIDE RECORDS SUMMARY | 2025-05-09 18:49 | XMS_ITS | Encounter Summary ---
Author Organization [facility] Address [address] [place] [address] Phone Care Team Providers Care Maintenance And Custodian Supervisor Name Role Phone Victoriano Reid MD Primary Care Provider [phone] Elva Olivares DO Primary Care Provider [phone] [place] ENGINEER THIRD ASSISTANT Unavailable UnaCabrera Nevarez MD Unavailable [phone] Viktoriya Arias ENGINEER THIRD ASSISTANT Unavailable Unavailab le Reason for Visit * Reason Comments Medication Refill Encounter Details Date Type Department Care Team (Late st Contact Info) Description 03/19/2024 Refill [facility] - Family Medicine [facility] #2 [place] [address] Victoriano Reid MD #1 [place] [address] Medication Refill Social History Tobacco Use Types [...] [facility] - Occupational Stress Questionnaire Answer Date [...] Provider Dept 12/06/23 Telemedicine Victoriano Reid MD [facility] 10/23/23 Telemedicine Miriam Prasad [...] Provider Dept 12/06/23 Telemedicine Victoriano Reid MD [facility] 10/23/23 Telemedicine Miriam Prasad APRN, LORI [facility] 03/29/23 Office Visit Victoriano Reid MD [facility] [...] CDT Clinical Support [facility]Y #2 [place] [address] Nurse, [place] [facility] 06/02/2025 12:10 PM CDT [facility] 1 [place] [address] Cabrera Yadav MD #[address] [address] 06/02/2025 12:10 PM CDT - 06/02/2025 2:40 PM CDT [facility] 1 [place] [address] Cabrera Yadav MD #[address] [address] CYSTOSCOPY AND LITHOLAPAXY, PATIENT WILL NEED A PAUL LIFT Scheduled Procedures Name Priority Associated Diagnoses Date/Ti va CYSTOSCOPY BLADDER STONE BLADDER STONES 06/02/2025 12:10 [...] documented as of this encounter Care Teams Maintenance And Custodian Supervisor Relationship Specialty Start Date End Date Victoriano Reid MD PCP - General Family Medicine 06/19/19 06/29/24 Elva Olivares DO 2 [facility] [address] [place] [address] PCP - General Family Medicine 07/01/24 Hinton LSW [place] Voice Network Engineer Supervisor [employer] 11/03/24 Cabrera Yadav MD #2 [facility] [address] [place] [address] Consulting Physician Urology 11/07/24 Viktoriya Arias LSW [place] Voice Network Engineer Supervisor [employer] 04/22/25 documented as of this encounter
--- OUTSIDE RECORDS SUMMARY | 2025-05-09 18:49 | XMS_ITS | Encounter Summary ---
Author Organization [facility] Address [address] [facility] [place] [address] Phone Care Team Providers Care Medical Lab Scientist Name Role Phone Elise Elva Becky GARCIA Primary Care Provider [phone] [place] ENTERTAINER OR VARIETY ARTIST Unavailable Cabrera Smallwood MD Unavailable [phone] Viktoriya Arias ENTERTAINER OR VARIETY ARTIST Unavailable Unavailab le Reason for Visit * Reason Onset Date Comments Need Order 07/08/2024 Encounter Details Date Type Department Care Team (Late st Contact Info) Description 07/08/2024 Telephone [facility] [address] [place] [address] Adwoa Hannah, PT [place] Need Order Social History Tobacco Use Types Packs/Day Years Used Date Smoking Tobacco: Every Day Cigarettes 2 15 Smokeless Tobacco: Never Alcohol Use Standard Drinks/Week Comments Not Currently 0 (1 standard drink = 0.6 oz pur e alcohol) [facility] Utilities Answer Date Recorded In the past 12 months has [employer], gas, oil, or water company threatened [...] week 04/15/2024 How often do you attend [facility] or temple services? Never 04/15/2024 Do you belong to any clubs o r organizations such as caodaism groups, unions, fraternal or athletic groups, or [...] Total Score - Questions 1-9 0 12/14 [facility] - Occupational Stress Questionnaire Answer [...] in a assisted (including now)? No 12/20/2023 Housing Stability Vital Sign Answer Saleem e Recorded In the last 12 months, was t here a time when you were not able to pay the mortgage or rent on time? No 04/15/2024 Number of Times Moved in the Last Year Not on fi le 04/15/2024 At any time in the past 12 m [facility], were you homeless or living in a assisted (including now)? No 04/15/2024 Education Answer Date [...] Description 05/12/2025 1:30 PM CDT Clinical Support [facility]OLOGY #2 [place] [address] NurseKen Urology 06/02/2025 12:10 PM CDT Hospital [facility]iop [address] [place] [address] Cabrera Yadav MD #2 [facility] [address] [place] [address] 06/02/2025 12:10 PM CDT - 06/02/2025 2:40 PM CDT [facility] [place] [address] Cabrera Yadav MD #2 [facility] [address] [place] [address] CYSTOSCOPY AND LITHOLAPAXY, PATIENT WILL NEED A PAUL LIFT Scheduled Procedures Name Priority Associated Diagnoses Date/Ti or CYSTOSCOPY BLADDER STONE BLADDER STONES 06/02/2025 12:10 PM CDT documented as of this encounter Visit Diagnoses Not on filedocumented in this encounter Additional Health Concerns Assessment Noted Time PHQ-9 Depression Total Score: 0 08/15/20 21 10:00 AM CDT documented as of this encounter Care Teams Medical Lab Scientist Relationship Specialty Start Date End Date Elva Olivares DO 2 [facility] [address] [place] [address] PCP - General Family Medicine 07/01/24 H[place] LSW [place] De Ionizer Operator Gis Developer 11/03/24 Cabrera Yadav MD #2 [facility] [address] [place] [address] Consulting Physician Urology 11/07/24 Viktoriya Arias LSW [place] De Ionizer Operator Gis Developer 04/22/25 documented as of this encounter
--- OUTSIDE RECORDS SUMMARY | 2025-05-09 18:49 | XMS_ITS | Encounter Summary ---
Author Organization [facility] Address [address] [facility] [place] [address] Phone Care Team Providers Care Propagation Worker Name Role Phone Victoriano Reid MD Primary Care Provider [phone] Elva Olivares DO Primary Care Provider [phone] Hinton GLASS SAGGER Unavailable Unavai Cabrera Dodge MD Unavailable [phone] Viktoriya Arias GLASS SAGGER Unavailable Unavailab le Encounter Details Date Type Department Care Team (Late st Contact Info) Description 01/23/2024 [facility] 1 [place] [address] Victoriano Reid MD #1 [place] [address] Urinary tract infection, site not specified Social History Tobacco Use Types Packs/Day Years Used Date Smoking Tobacco: Every Day Cigarettes Smokeless Tobacco: Never Alcohol Use Standard Drinks/Week Comments Not Currently 0 (1 standard drink = 0.6 oz pur e alcohol) [facility] Utilities Answer Date Recorded In the past 12 months has [employer] electric, gas, oil, or water company threatened [...] attend chur ch or congregation services? Never 12/20/2023 Do you belong to [...] 12/14 [facility] - Occupational Stress Questionnaire Answer Date [...] Description 05/12/2025 1:30 PM CDT Clinical Support [facility] #2 [place] [address] Nurse, Ken Urology 06/02/2025 12:10 PM CDT Hospital Encounter [facility] Periop 1 [facility] [place] [address] Cabrera Yadav MD #[address] [address] 06/02/2025 12:10 PM CDT - 06/02/2025 2:40 PM CDT Surgery [facility] Periop 1 [facility] [place] [address] Cabrera Yadav MD #[address] [facility] [facility] [address] [place] [address] CYSTOSCOPY AND LITHOLAPAXY, PATIENT WILL NEED A [...] RESULTS ENTEROCOCCUS FAECALIS 01/25/2024 9:08 PM CDT [facility] Urine Non-Phlebotomy Collection / Unknown 01/23/2024 2:45 PM CDT 01/23/2024 3:40 PM CDT Narrative [facility] - 01/25/2024 9:08 PM CDT Susceptibility not performed on enterococcus species. Due to high achievable concentrations in urine, Ampicillin is the drug of choice for treating infections limited to the lower urinary tract (regardless of Vancomycin susceptibility). For allergic patients, Nitrofurantoin or a quinolone may be substituted. us Victoriano Reid MD MICROBIOLOGY - GENERAL ORDERABLE S Final Result [facility] [address] [place] [address], * (ABNORMAL) URINALYSIS REFLEX IF INDICATED BY ABNORMAL RESULTS (01/23/2024 2:45 PM CDT) SPECIFIC GRAVITY 1.010 1.003 - 1.030 01/23/2024 3:[address] [facility] URINE PH 7.0 5.0 - 9.0 01/23/2024 3:56 PM CDT [facility] WBC ESTERASE 500 /uL(A) Negative 01/23/2024 3:56 PM CDT [facility] NITRITE Positive(A) Negative 01/23/2024 3:56 PM CDT [facility] PROTEIN, RANDOM URINE 30 mg/dL(A) Negative 01/23/2024 3:56 PM CDT [facility] URINE GLUCOSE, QUAL Negative Negative 01/23/2024 3:56 PM CDT [facility] URINE KETONES Negative Negative 01/23/2024 3:56 PM CDT [facility] UROBILINOGEN Normal Normal mg/dL 01/23/2024 3:56 PM CDT [facility] URINE BLOOD 250 /uL(A) Negative josefa/ul 01/23/2024 3:56 PM CDT [facility] URINALYSIS COLOR Yellow 01/23/20 3:56 PM CDT [facility] URINALYSIS CLARITY Slightly Cloudy 01/23/2024 3:56 PM CDT [facility] WBC (Urine) 11-20(A) Negative, 0-5 /hpf 01/23/2024 3:56 PM CDT [facility] URINE RBC'S 51-150(A) Negative, 0-2 /hpf 01/23/2024 3:56 PM CDT [facility] EPITHELIAL CELLS Small amount /lpf 2023 3:56 PM CDT [facility] BACTERIA, URINE Few(A) Negative /hpf 01/23/2024 3:56 PM CDT [facility] Urine Non-Phlebotomy Collection / Unknown 01/23/2024 2:45 PM CDT 01/23/2024 3:40 PM CDT us Victoriano Reid MD URINE ORDERABLES Final Result [facility] #1 [place] [address] documented in this encounter Visit Diagnoses Diagnosis Urinary tract infection, site not specified documented in this encounter Additional Health Concerns Assessment Noted Time PHQ-9 Depression Total Score: 0 08/15/20 21 10:00 AM CDT documented as of this encounter Care Teams Propagation Worker Relationship Specialty Start Date End Date Victoriano Reid MD PCP - General Family Medicine 06/19/19 06/29/24 Elva Olivares DO 2 [facility] [address] [place] [address] PCP - General Family Medicine 07/01/24 Hinton LSW DC Drill Press Hand Museum Host/Hostess 11/03/24 Cabrera Yadav MD #2 [facility] [address] [place] [address] Consulting Physician Urology 11/07/24 Viktoriya Arias LSW [place] [employer] Press Hand Museum Host/Hostess 04/22/25 documented as of this encounter
--- OUTSIDE RECORDS SUMMARY | 2025-05-09 18:49 | XMS_ITS | Encounter Summary ---
Author Organization [facility] Address [address] [place] [address] Phone Care Team Providers Care Craps Dealer Name Role Phone Victoriano Reid MD Primary Care Provider Elva Olivares DO Primary Care Provider [phone] Hinton DECKHAND ENGINEER Unavailable UnaCabrera Nevarez MD Unavailable [phone] Viktoriya Arias DECKHAND ENGINEER Unavailable Unavailab le Reason for Visit * Reason Comments Medication Refill Encounter Details Date Type Department Care Team (Late st Contact Info) Description 04/18/2024 Refill [facility] Medical Group - Family Medicine [facility] #2 [place] [phone] Victoriano Reid MD #1 [place] [address] Medication Refill Social History Tobacco Use Types Packs/Day Years Used Date Smoking Tobacco: Every Day Cigarettes 2 15 Smokeless Tobacco: Never Alcohol Use Standard Drinks/Week Comments Not Currently 0 (1 standard drink = 0.6 oz pur e alcohol) [facility] Utilities Answer Date Recorded [...] attend chur ch or synagogue services? Never 04/15/2024 Do you belong to any clubs o r organizations such as mormon groups, unions, fraternal or athletic groups, or [...] 0 12/14 [facility] - Occupational Stress Questionnaire Answer Date [...] a senior care (including now)? No 12/20/2023 Housing Stability Vital Sign Answer Saleem e Recorded In the last 12 months, was t here a time when you were not able to pay the mortgage or rent on time? No 04/15/2024 Number of Times Moved in the Last Year Not on fi le 04/15/2024 At any time in the past 12 m [facility], were you homeless or living in a senior care (including now)? No 04/15/2024 Education Answer Date [...] Description 05/12/2025 1:30 PM CDT Clinical Support [facility] #2 [place] [address] NurseKen Urology 06/02/2025 12:10 PM CDT [facility] 1 [facility] [place] [address] Cabrera Yadav MD #2 [facility] [address] [place] [address] 06/02/2025 12:10 PM CDT - 06/02/2025 2:40 PM CDT Surgery [facility] Per[facility] 1 [facility] [place] [address] Cabrera Yadav MD #2 [facility] [address] [place] [address] CYSTOSCOPY AND LITHOLAPAXY, PATIENT WILL NEED A PAUL LIFT Scheduled Procedures Name Priority Associated Diagnoses Date/Ti me CYSTOSCOPY BLADDER STONE BLADDER STONES 06/02/2025 12:10 PM CDT documented as of this encounter Visit Diagnoses Not on filedocumented in this encounter Additional Health Concerns Assessment Noted Time PHQ-9 Depression Total Score: 0 08/15/20 21 10:00 AM CDT documented as of this encounter Care Teams Craps Dealer Relationship Specialty Start Date End Date Victoriano Reid MD PCP - General Family Medicine 06/19/19 06/29/24 Elva Olivares DO 2 [facility] [address] [place] [address] PCP - General Family Medicine 07/01/24 Hinton, DECKHAND ENGINEER [place] Charge Account Identification Clerk Harpsichord Maker 11/03/24 Cabrera [facility]adav MD #2 [facility] [address] [place] [address] Consulting Physician Urology 11/07/24 Viktoriya Arias LSW [place] Charge Account Identification Clerk Harpsichord Maker 04/22/25 documented as of this encounter
--- OUTSIDE RECORDS SUMMARY | 2025-05-09 18:50 | XMS_ITS | Encounter Summary ---
Author Organization [facility] Address [address] [place] [address] Phone Care Team Providers Care Fruit Bar Maker Name Role Phone Victoriano Reid MD Primary Care Provider [phone] Malissa Joe RN Unavailable Unavailable Malissa Joe RN Unavailable Unavailable Elva Olivares DO Primary Care Provider [phone] Hinton HAMPER MAKER MACHINE Unavailable Unaabdirizaki Cabrera Dodge MD Unavailable [phone] Viktoriya Arias HAMPER MAKER MACHINE Unavailable Unavailab le Encounter Details Date Type Department Care Team (Late st Contact Info) Description 09/07/2020 [facility] 1 [place] [id number] Victoriano Reid MD #1 [place] [address] Neuromuscular dysfunction of bladder, unspecified; Urinary tract [...] Description 05/12/2025 1:30 PM CDT Clinical Support [facility] #2 [place] [address] NurseKen Urology 06/02/2025 12:10 PM CDT Hospital Encounter [facility] Periop 1 [facility] [place] [address] Cabrera Yadav MD [address] [address] 06/02/2025 12:10 PM CDT - 06/02/2025 2:40 PM CDT Surgery [facility] Periop 1 [facility] [place] [address] Cabrera Yadav MD #[address] [address] CYSTOSCOPY AND LITHOLAPAXY, PATIENT WILL NEED A PAUL LIFT Scheduled Procedures Name Priority Associated Diagnoses Date/Ti me CYSTOSCOPY BLADDER STONE BLADDER STONES 06/02/2025 12:10 PM CDT documented as of this encounter Procedures Procedure Name Priority Date/Time Associated Diagnosis Comments CULTURE, URINE Routine 09/07/2020 5:00 PM MATERIAL INSPECTOR Neuromuscular dysfunction of bladder, unspecified Urinary tract infection, site not specified Personal history of urinary (tract) infections documented in this encounter Results * CULTURE, URINE (09/07/2020 5:00 PM MATERIAL INSPECTOR) CULTURE RESULTS STAPHYLOCOCCUS AUREUS 09/11/2020 6:33 AM MATERIAL INSPECTOR [facility] CULTURE RESULTS ALSO MIXED GROWTH OF DISTAL URETHRA CONTAMINANTS. 09/11/2020 6:33 AM MATERIAL INSPECTOR [facility] Culture URINE SPECIMEN / Unknown No Phlebotomy Charged / Unknown 09/07/2020 5:00 PM MATERIAL INSPECTOR 09/07/2020 5:39 PM MATERIAL INSPECTOR Narrative Organism Antibiotic Method Susceptibility Staphylococcus aureus Gentamicin [facility] VITEK II >=16 mcg/ml: Resistant Staphylococcus aureus Nitrofurantoin [facility] VITEK II <=16 mcg/ml: Susceptible Staphylococcus aureus Oxacillin [facility] VITEK II <=0.25 mcg/ml: Susceptible Staphylococcus aureus Tetracycline [facility] VITEK II <=1 mcg/ml: Susceptible Staphylococcus aureus Trimeth/Sulfamethoxazole [facility] RANDY II <=10 mcg/ml: Susceptible Staphylococcus aureus Vancomycin [facility] VITEK II <=0.5 mcg/ml: Susceptible us Victoriano eRid MD MICROBIOLOGY - GENERAL ORDERABLE S Final Result [facility] [address] [place] [address], documented in this encounter Visit Diagnoses Diagnosis Neuromuscular dysfunction of bladder, unspecified Urinary tract infection, site not specified Personal history of urinary (tract) infections documented in this encounter Additional Health Concerns Infection Onset Date Last Indicated Resolved Time 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 06/05/2019 04/15/2021 7:28 AM CDT Assessment Noted Time PHQ-9 Depression Total Score: 0 10/24/19 20 11:16 AM MATERIAL INSPECTOR documented as of this encounter Care Teams Fruit Bar Maker Relationship Specialty Start Date End Date Victoriano Reid MD PCP - General Family Medicine 06/19/19 06/29/24 Elva Olivares DO [address] [address] PCP - General Family Medicine 07/01/24 Malissa Joe RN [place] Nurse Engine Assembler 12/03/23 12/03/23 Malissa Joe RN [place] Nurse Engine Assembler 12/05/23 12/05/23 Hinton, HAMPER MAKER MACHINE [place] Lumite Injector Engine Assembler 11/03/24 Cabrera Yadav MD #[address] [address] Consulting Physician Urology 11/07/24 Viktoriya Arias LSW [place] Lumite Injector Engine Assembler 04/22/25 documented as of this encounter
--- OUTSIDE RECORDS SUMMARY | 2025-05-09 18:50 | XMS_ITS | Encounter Summary ---
Author Organization [facility] Address [address] [place] [address] Phone Care Team Providers Care Tobacco Stemmer Machine Name Role Phone Victoriano Reid MD Primary Care Provider [phone] Malissa Joe RN Unavailable Unavailable Malissa Joe RN Unavailable Unavailable Elva Olivares DO Primary Care Provider [phone] Hinton SUPERVISOR SULFURIC ACID PLANT Unavailable Cabrera Smallwood MD Unavailable [phone] Viktoriya Arias SUPERVISOR SULFURIC ACID PLANT Unavailable Unavailab le Reason for Visit * Reason Comments Medication Refill Encounter Details Date Type Department Care Team (Late st Contact Info) Description 10/24/2022 Refill [facility] Medical Group - Family Medicine [facility] #2 [place] [phone] Victoriano Reid MD #1 [place] [address] Medication Refill Social History Tobacco Use Types [...] Yara Peacock RN - 10/24/2022 9:51 AM MACHINE DESIGN TEACHER Per nursing clinical judgement, provider to review and approve the medication(s) order(s) if appropriate. Requested Prescriptions Pending Prescriptions Disp Refills ergocalciferol (VITAMIN D) 81220 UNIT Capsule [Pharmacy Med Name: VITAMIN D2 50,000IU (ERGO) CAP RX] 12 Capsule 3 Sig: TAKE ONE CAPSULE BY MOUTH ONCE A WEEK ON SUNDAY Vitamin Supplements (Adult) Protocol Passed - 10/24/2022 9:40 AM Passed - Visit with relevant provider in past 12 months or upcoming 90 days Recent Visits Date Type Provider Dept 09/19/22 Office Visit Victoriano Reid MD [facility] 01/05/22 Office Visit Nia Abbott, SUZY [facility] Showing recent visits within past 365 days and meeting all other requirements Future Appointments No visits were found meeting these conditions. Showing future appointments within next 90 days and meeting all other requirements Passed - Vitamin D less than 1.25mg INE DESIGN TEACHER documented in this encounter Plan of Treatment Upcoming Encounters Date Type Department Care Team (Latest Contact Info) Description 05/12/2025 1:30 PM CDT Clinical Support [facility] #2 [place] [address] NurseKen Urology 06/02/2025 12:10 PM CDT Hospital Encounter [facility] Periop 1 [place] [address] Cabrera Yadav MD #2 [facility] [address] [place] [address] 06/02/2025 12:10 PM CDT - 06/02/2025 2:40 PM CDT Surgery [facility] Periop 1 [facility] [place] [address] Cabrera Yadav MD #2 [facility] [address] [place] [address] CYSTOSCOPY AND LITHOLAPAXY, PATIENT WILL NEED A [...] documented as of this encounter Care Teams Tobacco Stemmer Machine Relationship Specialty Start Date End Date Victoriano Reid MD PCP - General Family Medicine 06/19/19 06/29/24 Elva Olivares DO 2 [facility] [address] [place] [address] PCP - General Family Medicine 07/01/24 Malissa Joe, RN [place] Nurse Line Tester 12/03/23 12/03/23 Malissa Joe, RN [place] Nurse Line Tester 12/05/23 12/05/23 Hinton LSW [place] Hospital Chief Executive Officer Line Tester 11/03/24 Cabrera Yadav MD #2 [facility] [address] [place] [address] Consulting Physician Urology 11/07/24 Viktoriya Arias LSW [place] Hospital Chief Executive Officer Line Tester 04/22/25 documented as of this encounter
--- OUTSIDE RECORDS SUMMARY | 2025-05-09 18:50 | XMS_ITS | Encounter Summary ---
Author Organization [facility] Address [address] [facility] [place] [address] Phone Care Team Providers Care Plant Tech Name Role Phone Victoriano Reid MD Primary Care Provider [phone] Malissa Joe RN Unavailable Unavailable Malissa Joe RN Unavailable Unavailable Elva Olivares DO Primary Care Provider [phone] Hinton FIELD ARTILLERY SENIOR SERGEANT Unavailable UnaCabrera Nevarez MD Unavailable [phone] Viktoriya Arias FIELD ARTILLERY SENIOR SERGEANT Unavailable Unavailab le Encounter Details Date Type Department Care Team (Late st Contact Info) Description 03/29/2021 [facility] 1 [place] [address] Victoriano Reid MD #1 [place] [address] Acute cystitis without hematuria; Neuromuscular dysfunction of [...] [facility] #2 [place] [address] NurseKen Urology 06/02/2025 12:10 PM CDT [facility] 1 [place] [address] Cabrera Yadav MD #[address] [address] 06/02/2025 12:10 PM CDT - 06/02/2025 2:40 PM CDT Surgery [facility] Periop 1 [place] [address] Cabrera Yadav MD #[address] [address] CYSTOSCOPY AND LITHOLAPAXY, PATIENT WILL NEED A [...] S, COAGULASE NEGATIVE 03/30/2021 8:24 PM CDT [facility] Comment:NO FURTHER WORKUP PE RFORMED Culture No Phlebotomy Charged / Unknown 03/29/2021 11:30 AM CDT 03/29/2021 1:04 PM CDT us Victoriano Reid MD MICROBIOLOGY - GENERAL ORDERABLE S Final Result [facility] [address] [place] [address], [place] * (ABNORMAL) URINALYSIS REFLEX IF INDICATED BY ABNORMAL RESULTS (03/29/2021 11:30 AM CDT) Pathologist [facility] SPECIFIC GRAVITY 1.010 1.003 - 1.030 03/29/2021 1:31 PM CDT [facility] UR[facility] PH 8.0 5.0 - 9.0 03/29/2021 1:31 PM CDT [facility] WBC ESTERASE 500 /uL(A) Negative 03/29/2021 1:31 PM CDT [facility] NITRITE Positive(A) Negative 03/29/2021 1:31 PM CDT [facility] PROTEIN, RANDOM URINE 100 mg/dL(A) Negative 03/29/2021 1:31 PM CDT [facility] URINE GLUCOSE, QUAL Negative Negative 03/29/2021 1:31 PM CDT [facility] URINE KETONES Negative Negative 03/29/2021 1:31 PM CDT [facility] UROBILINOGEN Normal Normal mg/dL 03/29/2021 1:31 PM CDT [facility] URINE BILIRUBIN Negative Negative 1:31 PM CDT [facility] URINE BLOOD 250 /uL(A) Negative josefa/ul 03/29/2021 1:31 PM CDT [facility] URINALYSIS COLOR Yellow 03/29/2021 1:31 PM CDT [facility] URINALYSIS CLARITY Slightly Cloudy 03/29/2021 1:31 PM CDT [facility] WBC (Urine) 6-10(A) Negative, 0-5 /hpf 03/29/2021 1:31 PM CDT [facility] URINE RBC'S 21-50(A) Negative, 0-2 /hpf 03/29/2021 1:31 PM CDT [facility] EPITHELIAL CELLS Occasional /lpf 03/29/2021 1:31 PM CDT [facility] BACTERIA, URINE Few(A) Negative /hpf 03/29/2021 1:31 PM CDT [facility] CRYSTALS Triple phosphate 03/29/2021 1:31 PM CDT [facility] Urine Non-Phlebotomy Collection / Unknown 03/29/2021 11:30 AM CDT 03/29/2021 1:04 PM CDT us Victoriano Reid MD URINE ORDERABLES Final Result [facility] #[address] [place] [address] documented in this encounter Visit Diagnoses Diagnosis Acute cystitis without hematuria Acute cystitis Neuromuscular dysfunction of bladder, unspecified documented in this encounter Additional Health Concerns Infection Onset Date Last Indicated Resolved Time 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 06/05/2019 04/15/2021 7:28 AM CDT Assessment Noted Time PHQ-9 Depression Total Score: 0 10/24/19 20 11:16 AM ACCOUNT MANAGEMENT ASSISTANT documented as of this encounter Care Teams Plant Tech Relationship Specialty Start Date End Date Victoriano Reid MD PCP - General Family Medicine 06/19/19 06/29/24 Elva Olivares DO [address] [facility] [address] [address] [address] PCP - General Family Medicine 07/01/24 Malissa Joe RN [place] Nurse Nematologist 12/03/23 12/03/23 Malissa Joe RN [place] Nurse Nematologist 12/05/23 12/05/23 Hinton LSW [place] Regulatory Analyst Nematologist 11/03/24 Cabrera Yadav MD #[address] [address] Consulting Physician Urology 11/07/24 Viktoriya Arias, [place] Regulatory Analyst Nematologist 04/22/25 documented as of this encounter
--- OUTSIDE RECORDS SUMMARY | 2025-05-09 18:50 | XMS_ITS | Encounter Summary ---
Author Organization [facility] Address [address] [facility] [address] [place] [address] Phone Care Team Providers Care Continuous Washer Operator Name Role Phone Vcitoriano Reid MD Primary Care Provider [phone] Malissa Joe RN Unavailable Unavailable Malissa Joe RN Unavailable Unavailable Elva Olivares DO Primary Care Provider [phone] H[place] NAIL SPECIALIST Unavailable UnaCabrera Nevarez MD Unavailable [phone] Viktoriya Arias NAIL SPECIALIST Unavailable Unavailab le Encounter Details Date Type Department Care Team (Late st Contact Info) Description 11/23/2021 [facility] Services [address] [place] [id number] Victoriano Reid MD #1 [place] [address] Extravasation of urine Social History Tobacco Use [...] Description 05/12/2025 1:30 PM CDT Clinical Support [facility] GROUP UROLOGY #2 [place] [address] Nurse Ken Urology 06/02/2025 12:10 PM CDT [facility] Periop 1 [place] [address] Cabrera Yadav MD #[address] [address] 06/02/2025 12:10 PM CDT - 06/02/2025 2:40 PM CDT Surgery [facility] Periop 1 [place] [address] Cabrera Yadav MD #[address] [address] CYSTOSCOPY AND LITHOLAPAXY, PATIENT WILL NEED A PAUL LIFT Scheduled Procedures Name Priority Associated Diagnoses Date/Ti ny CYSTOSCOPY BLADDER STONE BLADDER STONES 06/02/2025 12:10 PM CDT documented as of this encounter Procedures Procedure Name Priority Date/Time Associated Diagnosis Comments URINALYSIS REFLEX IF INDICATED BY ABNORMAL RESULTS Routine 11/23/2021 12:00 PM ROLL CLAMP OPERATOR Extravasation of urine CULTURE, URINE Routine 11/23/2021 12:00 PM ROLL CLAMP OPERATOR Extravasation of urine documented in this encounter Results * CULTURE, URINE (11/23/2021 12:00 PM ROLL CLAMP OPERATOR) CULTURE RESULTS STAPHYLOCOCCUS AUREUS 11/29/2021 1:01 PM ROLL CLAMP OPERATOR [facility] Urine Non-Phlebotomy Collection / Unknown 11/23/2021 12:00 PM ROLL CLAMP OPERATOR 11/23/2021 3:44 PM ROLL CLAMP OPERATOR Narrative Organism Antibiotic Method Susceptibility Staphylococcus aureus [...] MICROBIOLOGY - GENERAL ORDERABLE S Final Result [facility] [address] [id number], * (ABNORMAL) URINALYSIS REFLEX IF INDICATED BY ABNORMAL RESULTS (11/23/2021 12:00 PM ROLL CLAMP OPERATOR) SPECIFIC GRAVITY 1.005 1.003 - 1.030 11/23/2021 4:41 PM ROLL CLAMP OPERATOR [facility] URINE PH 7.0 5.0 - 9.0 11/23/2021 4:41 PM [facility] WBC ESTERASE 500 /uL(A) Negative 11/23/2021 4:41 PM [facility] NITRITE Positive(A) Negative 11/23/2021 4:41 PM ROLL CLAMP OPERATOR [facility] PROTEIN, RANDOM URINE 30 mg/dL(A) Negative 11/23/2021 4:41 PM ROLL CLAMP OPERATOR [facility] URINE GLUCOSE, QUAL Negative Negative 11/23/2021 4:41 PM ROLL CLAMP OPERATOR [facility] URINE KETONES Negative Negative 11/23/2021 4:41 PM [facility] UROBILINOGEN Normal Normal mg/dL 11/23/2021 4:41 PM [facility] URINE BLOOD 250 /uL(A) Negative josefa/ul 11/23/2021 4:41 PM [facility] URINALYSIS COLOR Light yellow 2021 4:41 PM ROLL CLAMP OPERATOR [facility] URINALYSIS CLARITY Slightly Cloudy 11/23/2021 4:41 PM ROLL CLAMP OPERATOR [facility] WBC (Urine) Packed(A) Negative, 0-5 /hpf 11/23/2021 4:41 PM ROLL CLAMP OPERATOR [facility] URINE RBC'S 51-150(A) Negative, 0-2 /hpf 11/23/2021 4:41 PM ROLL CLAMP OPERATOR [facility] EPITHELIAL CELLS Small amount /lpf 2021 4:41 PM ROLL CLAMP OPERATOR [facility] BACTERIA, URINE Many(A) Negative /hpf 11/23/2021 4:41 PM ROLL CLAMP OPERATOR [facility] Urine Non-Phlebotomy Collection / Unknown 11/23/2021 12:00 PM ROLL CLAMP OPERATOR 11/23/2021 3:44 PM ROLL CLAMP OPERATOR us Victoriano Reid MD URINE ORDERABLES Final Result Performing Organization Address City/State/[facility] Co de Phone Number [facility] #[address] [place] [address] documented in this encounter Visit Diagnoses Diagnosis Extravasation of urine documented in this encounter Additional Health Concerns Assessment Noted Time PHQ-9 Depression Total Score: 0 08/15/20 21 10:00 AM CDT documented as of this encounter Care Teams Continuous Washer Operator Relationship Specialty Start Date End Date Victoriano Reid MD PCP - General Family Medicine 06/19/19 06/29/24 Elva Olivares DO 2 [facility] [address] PCP - General Family Medicine 07/01/24 Malissa Joe RN [place] Nurse Material Man 12/03/23 12/03/23 Malissa Joe RN [place] Nurse Material Man 12/05/23 12/05/23 H[place] LSW [place] Burling And Joining Supervisor Material Man 11/03/24 Cabrera Yadav MD #[address] [address] Consulting Physician Urology 11/07/24 Viktoriya Arias LSW [place] Burling And Joining Supervisor Material Man 04/22/25 documented as of this encounter
--- OUTSIDE RECORDS SUMMARY | 2025-05-09 18:50 | XMS_ITS | Encounter Summary ---
Author Organization [facility] Address [address] [place] [address] Phone Care Team Providers Care Concrete Laborer Name Role Phone Victoriano Reid MD Primary Care Provider [phone] Malissa Joe RN Unavailable Unavailable Malissa Joe RN Unavailable Unavailable Elva Olivares DO Primary Care Provider [phone] [place] SOCIALLY RESPONSIBLE INVESTMENT ADVISER Unavailable Cabrera Smallwood MD Unavailable [phone] Viktoriya Arias SOCIALLY RESPONSIBLE INVESTMENT ADVISER Unavailable Unavailab le Reason for Visit * Reason Comments Medication Refill Encounter Details Date Type Department Care Team (Late st Contact Info) Description 09/05/2021 Refill [facility] Medical Group - Family Medicine [facility] #2 [place] [id number] Victoriano Reid MD #1 [place] [address] Medication Refill Social History Tobacco Use Types Packs/Day Years Used Date Smoking Tobacco: Every Day Cigarettes Smokeless Tobacco: Never Alcohol Use Standard Drinks/Week Comments Not Currently 0 (1 standard drink = 0.6 oz pur e alcohol) PHQ-2 Answer Date Recorded Total Score - Questions 1-9 0 10/2020 Education Answer Date Recorded What is [...] Description 05/12/2025 1:30 PM CDT Clinical Support [facility] UROLOGY #2 [place] [address] Nurse [place] Urology 06/02/2025 12:10 PM CDT [facility] 1 [place] [address] Cabrera Yadav MD #[address] [address] 06/02/2025 12:10 PM CDT - 06/02/2025 2:40 PM CDT [facility] [place] [address] Cabrera Yadav MD #[address] [address] CYSTOSCOPY AND LITHOLAPAXY, PATIENT WILL NEED A PAUL LIFT Scheduled Procedures Name Priority Associated Diagnoses Date/Ti nj CYSTOSCOPY BLADDER STONE BLADDER STONES 06/02/2025 12:10 PM CDT documented as of this encounter Visit Diagnoses Diagnosis Muscle spasm Spasm of muscle documented in this encounter Additional Health Concerns Assessment Noted Time PHQ-9 Depression Total Score: 0 08/15/20 21 10:00 AM CDT documented as of this encounter Care Teams Concrete Laborer Relationship Specialty Start Date End Date Victoriano Reid MD PCP - General Family Medicine 06/19/19 06/29/24 Elva Olivares DO 2 [facility]. [address] [place] [address] PCP - General Family Medicine 07/01/24 Malissa Joe, RN [place] Nurse Youth Worker 12/03/23 12/03/23 Malissa Joe, RN [place] Nurse Youth Worker 12/05/23 12/05/23 Hinton, SOCIALLY RESPONSIBLE INVESTMENT ADVISER [place] Form Worker Youth Worker 11/03/24 Cabrera Yadav MD #2 [facility] [address] [place] [address] Consulting Physician Urology 11/07/24 Viktoriya Arias, SOCIALLY RESPONSIBLE INVESTMENT ADVISER [place] Form Worker Youth Worker 04/22/25 documented as of this encounter
--- OUTSIDE RECORDS SUMMARY | 2025-05-09 18:50 | XMS_ITS | Encounter Summary ---
Author Organization [facility] Address [address] [place] [address] Phone Care Team Providers Care Geomorphologist Name Role Phone Victoriano Reid MD Primary Care Provider [phone] Malissa Joe RN Unavailable Unavailable Malissa Joe RN Unavailable Unavailable Elva Olivares DO Primary Care Provider [phone] [place] WELL FLOW OPERATOR Unavailable Unaabdirizaki Cabrera Dodge MD Unavailable [phone] Viktoriya Arias WELL FLOW OPERATOR Unavailable Unavailab le Encounter Details Date Type Department Care Team (Late st Contact Info) Description 07/05/2023 [facility] 1 [place] [address] Victoriano Reid MD #1 [place] [address] Encounter for fitting and adjustment of urinary [...] Description 05/12/2025 1:30 PM CDT Clinical Support [facility]YSICIAN GROUP UROLOGY #2 [place] [address] NurseKen Urology 06/02/2025 12:10 PM CDT [facility] 1 [place] [address] Cabrera Yadav MD #[address] [address] 06/02/2025 12:10 PM CDT - 06/02/2025 2:40 PM CDT [facility] 1 [place] [address] Cabrera Yadav MD #[address] [address] CYSTOSCOPY AND LITHOLAPAXY, PATIENT WILL NEED A [...] REPEAT URINE CULTURE. 07/06/2023 10:57 PM CDT [facility] Culture Non-Phlebotomy Collection / Unknown 07/05/2023 2:20 PM CDT 07/05/2023 1:07 PM CDT Narrative [facility] - 07/06/2023 10:57 PM CDT Susceptibility not performed on enterococcus species. Due to high achievable concentrations in urine, Ampicillin is the drug of choice for treating infections limited to the lower urinary tract (regardless of Vancomycin susceptibility). For allergic patients, Nitrofurantoin or a quinolone may be substituted. us Victoriano Reid MD MICROBIOLOGY - GENERAL ORDERABLE S Final Result [facility] [address] [place] [address], documented in this encounter Visit Diagnoses Diagnosis Encounter for fitting and adjustment of urinary device Personal history of urinary (tract) infections documented in this encounter Additional Health Concerns Assessment Noted Time PHQ-9 Depression Total Score: 0 08/15/20 10:00 AM CDT documented as of this encounter Care Teams Geomorphologist Relationship Specialty Start Date End Date Victoriano Reid MD PCP - General Family Medicine 06/19/19 06/29/24 Elva Olivares DO [address] [address] PCP - General Family Medicine 07/01/24 Malissa Joe, RN [place] Nurse Chronometer Adjuster 12/03/23 12/03/23 Malissa Joe RN [place] Nurse Chronometer Adjuster 12/05/23 12/05/23 Hinton, WELL FLOW OPERATOR [place] Mechanical Estimator Chronometer Adjuster 11/03/24 Cabrera Yadav MD #[address] [address] Consulting Physician Urology 11/07/24 Viktoriya Arias LSW [place] Mechanical Estimator Chronometer Adjuster 04/22/25 documented as of this encounter
--- OUTSIDE RECORDS SUMMARY | 2025-05-09 18:50 | XMS_ITS | Encounter Summary ---
Author Organization [facility] Address [address] [place] [address] Phone Care Team Providers Care Flux Tube Attendant Name Role Phone Victoriano Reid MD Primary Care Provider [phone] Elva Olivares DO Primary Care Provider [phone] [place] SUPERVISOR ENGINE ASSEMBLY Unavailable UnaCabrera Nevarez MD Unavailable [phone] Viktoriya Arias SUPERVISOR ENGINE ASSEMBLY Unavailable Unavailab le Reason for Visit * Reason Comments Medication Refill Encounter Details Date Type Department Care Team (Late st Contact Info) Description 12/20/2023 Refill [facility] Medical Group - Family Medicine [facility] #2 [place] [address] Victoriano Reid MD #1 [place] [address] Medication Refill Social History Tobacco Use Types Packs/Day Years Used Date Smoking Tobacco: Every Day Cigarettes Smokeless Tobacco: Never Alcohol Use Standard Drinks/Week Comments Not Currently 0 (1 standard drink = 0.6 oz pur e alcohol) [facility] Utilities Answer Date Recorded In the past 12 months has [employer] electric, gas, oil, or water company threatened [...] attend chur ch or synagogue services? Never 12/20/2023 Do you belong to [...] 0 12/14 [facility] - Occupational Stress Questionnaire Answer Date [...] as of this encounter Functional Status * AUDIT-C Score Answer Date of Assessment Author 0 12/20/2023 11:52 AM CREDIT OFFICE MANAGER [employer] System Background * Q1: How often do you have a drink containing alcohol? Answer Date of Assessment Author Never 12/20/2023 11:52 AM CREDIT OFFICE MANAGER [employer], System Background * Q2: How many drinks containing alcohol do you have on a typical day when you are drinking? Answer Date of Assessment Author Patient does not drink 12/20/2023 11:52 AM CREDIT OFFICE MANAGER [employer], System Background * Q3: How often do you have six or more drinks on one occasion? Answer Date of Assessment Author Never 12/20/2023 11:52 AM CREDIT OFFICE MANAGER [employer] System Background documented as of this encounter Miscellaneous Notes * Telephone Encounter - Adelaida Medina RN - 12/20/2023 10:19 AM CREDIT OFFICE MANAGER Medication failed the protocol, provider to [...] MD O[facility] Rogers 10/23/23 Telemedicine Miriam Prasad APPLICATIONS ENGINEER MANUFACTURING, ETL TESTER [facility] [place] 03/29/23 Office Visit Victoriano Reid MD [facility] Ken Showing recent visits within past 365 days and meeting all other requirements Future Appointments Date Type Provider Dept 12/21/23 Appointment Victoriano Reid MD [facility] Ken Showing future appointments within next 90 days and meeting all other requirements IT OFFICE MANAGER documented in this encounter Plan of Treatment Upcoming Encounters Date Type Department Care Team (Latest Contact Info) Description 05/12/2025 1:30 PM CDT Clinical Support [facility] UROLOGY #2 [place] [address] NurseKen Urology 06/02/2025 12:10 PM CDT [facility] 1 [place] [address] Cabrera Yadav MD #[address] [address] 06/02/2025 12:10 PM CDT - 06/02/2025 2:40 PM CDT Surgery [facility] Periop [address] [place] [address] Cabrera Yadav MD #[address] [address] CYSTOSCOPY AND LITHOLAPAXY, PATIENT WILL NEED A PAUL LIFT Scheduled Procedures Name Priority Associated Diagnoses Date/Ti la CYSTOSCOPY BLADDER STONE BLADDER STONES 06/02/2025 12:10 PM CDT documented as of this encounter Visit Diagnoses Diagnosis Hypokalemia Hypopotassemia documented in this encounter Additional Health Concerns Assessment Noted Time PHQ-9 Depression Total Score: 0 08/15/20 21 10:00 AM CDT documented as of this encounter Care Teams Flux Tube Attendant Relationship Specialty Start Date End Date Victoriano Reid MD PCP - General Family Medicine 06/19/19 06/29/24 Elva Olivares DO 2 [facility] [address] [place] [address] PCP - General Family Medicine 07/01/24 Hinton LSW [place] Certified Appliance Service Technician Harnessmaker 11/03/24 Cabrera Yadav MD #2 [facility] [address] [place] [address] Consulting Physician Urology 11/07/24 Viktoriya Arias LSW [place] Certified Appliance Service Technician Harnessmaker 04/22/25 documented as of this encounter
--- OUTSIDE RECORDS SUMMARY | 2025-05-09 18:50 | XMS_ITS | Encounter Summary ---
Author Organization [facility] Address [address] [place] [address] Phone Care Team Providers Care Daytime Babysitter Name Role Phone Victoriano Reid MD Primary Care Provider [phone] Malissa Joe RN Unavailable Unavailable Malissa Joe RN Unavailable Unavailable Elva Olivares DO Primary Care Provider [phone] H[place] DEVELOPER TRADING SYSTEMS Unavailable Cabrera Smallwood MD Unavailable [phone] Viktoriya Arias DEVELOPER TRADING SYSTEMS Unavailable Unavailab le Reason for Visit * Reason Comments Medication Refill Encounter Details Date Type Department Care Team (Late st Contact Info) Description 03/24/2021 Refill [facility] Medical Group - Family Medicine [facility] #2 [place] [address] Sathish Loomis MD #[address] [address] Medication Refill Social History Tobacco Use Types [...] Outpatient Visits 1 month ago Paraplegia (HCC) [facility] Victoriano Toledo MD 7 months ago Acute cystitis with hematuria [facility] Victoriano Toledo MD 1 year ago Paralysis of both lower limbs ([facility]) [facility] Victoriano Toledo MD 1 year ago Uncontrolled type 2 diabetes mellitus with hyperglycemia ([facility]) [facility] Victoriano Toledo MD 1 year ago Spinal cord compression due to malignant neoplasm metastatic to spine ([facility]) [facility] Victoriano Toledo MD Upcoming Appointments Future Appointments In 4 days Lissy Silva MSW [facility] In 5 days Nenita Fernandes LPN [facility] 1 week Sharonda Carrion PTA [facility] In 1 week Nenita Fernandes LPN [facility] In 2 weeks Nenita Fernandes LPN [facility] In 3 weeks Nenita Fernandes LPN [facility] In 1 month Naa Rios RN [facility] DESK REPRESENTATIVE - Recent and Past Visits Recent Visits Date Type Provider Dept 02/14/21 Telemedicine Victoriano Reid MD Osm[facility]iel[facility] Rogers 08/06/20 Telemedicine Victoriano Reid MD Osm[facility]iel[facility] Rogers 01/22/20 Telemedicine Victoriano Reid MD [facility] Showing recent visits within past 460 days [...] Description 05/12/2025 1:30 PM CDT Clinical Support [facility]ICIAN GROUP UROLOGY #2 [place] [address] Nurse, Ken Urology 06/02/2025 12:10 PM CDT [facility] 1 [place] [address] Cabrera Yadav MD #[address] [address] 06/02/2025 12:10 PM CDT - 06/02/2025 2:40 PM CDT [facility] 1 [place] [address] Cabrera Yadav MD #[address] [address] CYSTOSCOPY AND LITHOLAPAXY, PATIENT WILL NEED A PAUL LIFT Scheduled Procedures Name Priority Associated Diagnoses Date/Ti vt CYSTOSCOPY BLADDER STONE BLADDER STONES 06/02/2025 12:10 PM CDT documented as of this encounter Visit Diagnoses Diagnosis Muscle spasm Spasm of muscle documented in this encounter Additional Health Concerns Infection Onset Date Last Indicated Resolved Time 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 06/05/2019 04/15/2021 7:28 AM CDT Assessment Noted Time PHQ-9 Depression Total Score: 0 10/24/19 11:16 AM DIRECTOR OF SEARCH ENGINE MARKETING documented as of this encounter Care Teams Daytime Babysitter Relationship Specialty Start Date End Date Victoriano Reid MD PCP - General Family Medicine 06/19/19 06/29/24 Elva Olivares DO 2 [facility] [address] [place] [address] PCP - General Family Medicine 07/01/24 Malissa Joe, RN [place] Nurse Yarding Engineer 12/03/23 12/03/23 Malissa Joe RN [place] Nurse Yarding Engineer 12/05/23 12/05/23 [place], DEVELOPER [facility] Head Of Digital Yarding Engineer 11/03/24 Cabrera Yadav MD #2 [facility] [address] [place] [address] Consulting Physician Urology 11/07/24 Viktoriya Arias, DEVELOPER TRADING SYSTEMS [place] Head Of Digital Yarding Engineer 04/22/25 documented as of this encounter
--- OUTSIDE RECORDS SUMMARY | 2025-05-09 18:50 | XMS_ITS | Encounter Summary ---
Author Organization [facility] Address [address] [place] [address] Phone Care Team Providers Care Electronic Resources Librarian Name Role Phone Victoriano Reid MD Primary Care Provider [phone] Malissa Joe RN Unavailable Unavailable Malissa Joe RN Unavailable Unavailable Elva Olivares DO Primary Care Provider [phone] H[place] FILTER PRESS TENDER HEAD Unavailable Cabrera Smallwood MD Unavailable [phone] Viktoriya Arias FILTER PRESS TENDER HEAD Unavailable Unavailab le Reason for Visit * Reason Comments Medication Refill Encounter Details Date Type Department Care Team (Late st Contact Info) Description 07/24/2023 Refill [facility] Medical Group - Family Medicine [facility] #2 [place] [phone] Victoriano Reid MD #1 [place] [address] Medication Refill Social History Tobacco Use Types [...] Rogers 09/19/22 Office Visit Victoriano Reid MD [facility] Showing recent visits within past 365 days and meeting all other requirements Future Appointments Date Type Provider Dept 10/01/23 Appointment Victoriano Reid MD Osmariela Rogers Showing future appointments within next 90 days and meeting all other requirements documented in this encounter Plan of Treatment Upcoming Encounters Date Type Department Care Team (Latest Contact Info) Description 05/12/2025 1:30 PM CDT Clinical Support [facility] PHYSICIAN GROUP UROLOGY #2 [place] [address] NurseKen Urology 06/02/2025 12:10 PM CDT Hospital [facility] Periop 1 [place] [address] Cabrera Yadav MD #2 [facility], [address] [address] 06/02/2025 12:10 PM CDT - 06/02/2025 2:40 PM CDT [facility] Periop 1 [facility] [place] [address] Cabrera Yadav MD #2 [facility] [address] [place] [address] CYSTOSCOPY AND LITHOLAPAXY, PATIENT WILL NEED A PAUL LIFT Scheduled Procedures Name Priority Associated Diagnoses Date/Ti nv CYSTOSCOPY BLADDER STONE BLADDER STONES 06/02/2025 12:10 PM CDT documented as of this encounter Visit Diagnoses Diagnosis Muscle spasm Spasm of muscle documented in this encounter Additional Health Concerns Assessment Noted Time PHQ-9 Depression Total Score: 0 08/15/20 21 10:00 AM CDT documented as of this encounter Care Teams Electronic Resources Librarian Relationship Specialty Start Date End Date Victoriano Reid MD PCP - General Family Medicine 06/19/19 06/29/24 Elva Olivares DO 2 [facility] [address] [place] [address] PCP - General Family Medicine 07/01/24 Malissa Joe, RN [place] Nurse Outreach Nurse 12/03/23 12/03/23 Malissa Joe, RN [place] Nurse Outreach Nurse 12/05/23 12/05/23 Hinton LSW [place] Mosaicist Outreach Nurse 11/03/24 Cabrera Yadav MD #2 [facility] [address] [place] [address] Consulting Physician Urology 11/07/24 Viktoriya Arias LSW [place] Mosaicist Outreach Nurse 04/22/25 documented as of this encounter
--- OUTSIDE RECORDS SUMMARY | 2025-05-09 18:50 | XMS_ITS | Encounter Summary ---
Author Organization [facility] Address [address] [place] [address] Phone Care Team Providers Care Atg Java Developer Name Role Phone Victoriano Reid MD Primary Care Provider [phone] Elva Olivares DO Primary Care Provider [phone] [place] SALES ADMINISTRATOR Unavailable Unavai Cabrera Dodge MD Unavailable [phone] Viktoriya Arias SALES ADMINISTRATOR Unavailable Unavailab le Encounter Details Date Type Department Care Team (Late st Contact Info) Description 12/20/2023 Lab Requisition [facility] Laboratory Services [address] [place] [id number] Victoriano Reid MD #1 [place] [address] Type 2 diabetes mellitus with other specified complication (HCC) Social History Tobacco Use Types Packs/Day Years Used Date Smoking Tobacco: Every Day Cigarettes Smokeless Tobacco: Never Alcohol Use Standard Drinks/Week Comments Not Currently 0 (1 standard drink = 0.6 oz pur e alcohol) [facility] Utilities Answer Date Recorded In [...] often do you attend chur ch or jehovah's witness services? Never 12/20/2023 Do you belong to any clubs o r organizations such as scientology groups, unions, fraternal or athletic groups, or [...] 1-9 0 12/14 [facility] - Occupational Stress Questionnaire Answer Date Recorded [...] in a detention (including now)? No 12/20/2023 Education Answer Date [...] of Assessment Author 0 12/20/2023 11:52 AM SPLIT LEATHER DEPARTMENT SUPERVISOR [employer], System Background * Q1: How often do you have a drink containing alcohol? Answer Date of Assessment Author Never 12/20/2023 11:52 AM SPLIT LEATHER DEPARTMENT SUPERVISOR [employer], System Background * Q2: How many drinks containing alcohol do you have on a typical day when you are drinking? Answer Date of Assessment Author Patient does not drink 12/20/2023 11:52 AM SPLIT LEATHER DEPARTMENT SUPERVISOR [employer], System Background * Q3: How often do you have six or more drinks on one occasion? Answer Date of Assessment Author Never 12/20/2023 11:52 AM SPLIT LEATHER DEPARTMENT SUPERVISOR [employer], System Background documented as of this encounter Plan of Treatment Upcoming Encounters Date Type Department Care Team (Latest Contact Info) Description 05/12/2025 1:30 PM CDT Clinical Support [facility]Y [address] [facility] [place] [address] NurseKen Urology 06/02/2025 12:10 PM CDT Hospital Encounter [facility] Periop 1 [facility] [place] [address] Cabrera Yadav MD [address] [address] 06/02/2025 12:10 PM CDT - 06/02/2025 2:40 PM CDT Surgery [facility] Periop [address] [place] [address] Cabrera Yadav MD [address] [address] CYSTOSCOPY AND LITHOLAPAXY, PATIENT WILL NEED A PAUL LIFT Scheduled Procedures Name Priority Associated Diagnoses Date/Ti me CYSTOSCOPY BLADDER STONE BLADDER STONES 06/02/2025 12:10 PM CDT documented as of this encounter Procedures Procedure Name Priority Date/Time Associated Diagnosis Comments HEMOGLOBIN A1C W/ ESTIMATED GLUCOSE Routine 12/20/2023 12:30 PM SPLIT LEATHER DEPARTMENT SUPERVISOR Type 2 diabetes mellitus with other specified complication (HCC) CBC WITH AUTO DIFFERENTIAL Routine 12/20/2023 12:30 PM SPLIT LEATHER DEPARTMENT SUPERVISOR Type 2 diabetes mellitus with other specified complication (HCC) CMP (COMPREHENSIVE METABOLIC PANEL) Routine 12/20/2023 12:30 PM SPLIT LEATHER DEPARTMENT SUPERVISOR Type 2 diabetes mellitus with other specified complication (HCC) COMPLETE BLOOD COUNT (CBC) WITH DIFF Routine 12/20/2023 12:30 PM SPLIT LEATHER DEPARTMENT SUPERVISOR Type 2 diabetes mellitus with other specified complication (HCC) documented in this encounter Results * (ABNORMAL) CBC WITH AUTO DIFFERENTIAL (12/20/2023 12:30 PM SPLIT LEATHER DEPARTMENT SUPERVISOR) WBC 9.25 4.00 - 12.00 10(3)/mcL 12/20/2023 2:29 PM SPLIT LEATHER DEPARTMENT SUPERVISOR [facility] RBC 4.47 3.80 - 5.30 10(6)/mcL 12/20/2023 2:29 PM [facility] HEMOGLOBIN (HGB) 14.7 12.0 - 15.8 g/dL 12/20/2023 2:29 PM [facility] HEMATOCRIT (HCT) 44.7 36.0 - 47.0 % 12/20/2023 2:29 PM [facility] MCV 100.0(H) 82.0 - 96.0 fL 12/20/2023 2:29 PM [facility] MCH 32.9 26.0 - 34.0 pg 12/20/2023 2:29 PM [facility] MCHC 32.9 31.0 - 36.0 g/dL 12/20/2023 2:29 PM [facility] PLATELET COUNT 161 140 - 440 10(3)/mcL 12/20/2023 2:29 PM [facility] RDW 14.3 11.8 - 15.5 % 12/20/2023 2:29 PM [facility] MPV 11.8 9.7 - 12.4 fL 12/20/2023 2:29 PM [facility] NEUTROPHILS 51.9 47.0 - 73.0 % 12/20/2023 2:29 PM [facility] LYMPHOCYTES 37.2 18.0 - 42.0 % 12/20/2023 2:29 PM [facility] MONOCYTES 6.5 4.0 - 12.0 % 12/20/2023 2:29 PM [facility] EOSINOPHILS 3.5 0.0 - 5.0 % 12/20/2023 2:29 PM [facility] BASOPHILS 0.9 0.0 - 1.0 % 12/20/2023 2:29 PM [facility] ABSOLUTE NEUTROPHILS 4.81 1.60 - 7.70 10(3)/mcL 12/20/2023 2:29 PM [facility] ABSOLUTE LYMPHOCYTES 3.44(H) 1.30 - 3.20 10(3)/[facility] 12/20/2023 2:29 PM SPLIT LEATHER DEPARTMENT SUPERVISOR [facility] ABSOLUTE MONOCYTES 0.60 0.20 - 1.00 10(3)/[facility] 12/20/2023 2:29 PM SPLIT LEATHER DEPARTMENT SUPERVISOR [facility] ABSOLUTE EOSINOPHIL 0.32 0.00 - 0.40 10(3)/[facility] 12/20/2023 2:29 PM SPLIT LEATHER DEPARTMENT SUPERVISOR [facility] ABSOLUTE BASOPHILS 0.08 0.00 - 0.10 10(3)/[facility] 12/20/2023 2:29 PM SPLIT LEATHER DEPARTMENT SUPERVISOR [facility] NRBC PER 100 WBC 0 12/20/19 2:29 PM SPLIT LEATHER DEPARTMENT SUPERVISOR [facility] Blood No Phlebotomy Charged / Unknown 12/20/2023 12:30 PM SPLIT LEATHER DEPARTMENT SUPERVISOR 12/20/2023 2:26 PM SPLIT LEATHER DEPARTMENT SUPERVISOR us Victoriano Reid MD HEMATOLOGY ORDERABLES Final Resu lt [facility] #1 [place] [address] * HEMOGLOBIN A1C W/ ESTIMATED GLUCOSE (12/20/2023 12:30 PM SPLIT LEATHER DEPARTMENT SUPERVISOR) HGB-A1C 5.8 4.0 - 6.0 % 12/20/2023 2:51 PM SPLIT LEATHER DEPARTMENT SUPERVISOR [facility] Est Average Glucose 119.8 mg/dL 12/20/2023 2:51 PM SPLIT LEATHER DEPARTMENT SUPERVISOR [facility] Blood No Phlebotomy Charged / Unknown 12/20/2023 12:30 PM SPLIT LEATHER DEPARTMENT SUPERVISOR 12/20/2023 2:26 PM SPLIT LEATHER DEPARTMENT SUPERVISOR Narrative [facility] - 12/20/2023 2:51 PM SPLIT LEATHER DEPARTMENT SUPERVISOR HEMOGLOBIN A1C: DIABETIC PATIENTS: WELL-CONTROLLED: 6.2 - 7.0 INTERMEDIATE WELL-CONTROLLED: 7.0 - 9.0 POORLY-CONTROLLED: >9.0 Victoriano Reid MD CHEMISTRY ORDERABLES Final Resul t [facility] [address] [place] [address] * (ABNORMAL) CMP (COMPREHENSIVE METABOLIC PANEL) (12/20/2023 12:30 PM SPLIT LEATHER DEPARTMENT SUPERVISOR) SODIUM 144 136 - 145 mmol/L 12/20/2023 2:47 PM SPLIT LEATHER DEPARTMENT SUPERVISOR [facility] POTASSIUM 4.2 3.5 - 5.1 mmol/L 12/20/2023 2:47 PM [facility] CHLORIDE 109(H) 98 - 107 mmol/L 12/20/2023 2:47 PM [facility] CO2, VENOUS 27 22 - 30 mmol/L 12/20/2023 2:47 PM [facility] ANION GAP 12.2 <18.0 mmol/L 12/20/2023 2:47 PM [facility] GLUCOSE 136(H) 70 - 99 mg/dL 12/20/2023 2:47 PM [facility] BUN 14 10 - 20 mg/dL 12/20/2023 2:47 PM [facility] CREATININE, BLOOD 0.84 0.60 - 1.00 mg/dL 12/20/2023 2:47 PM [facility] BUN/CREATININE RATIO 17 12 - 20 ratio 12/20/2023 2:47 PM [facility] TOTAL PROTEIN 6.9 6.3 - 8.2 g/dL 12/20/2023 2:47 PM [facility] ALBUMIN 3.8 3.5 - 5.0 g/dL 12/20/2023 2:47 PM [facility] A/G RATIO 1.2 1.0 - 2.2 12/20/2023 2:47 PM [facility] CALCIUM 9.8 8.7 - 10.5 mg/dL 12/20/2023 2:47 PM [facility] T BILI 0.3 0.2 - 1.2 mg/dL 12/20/2023 2:47 PM SPLIT LEATHER DEPARTMENT SUPERVISOR [facility] SGOT (AST) 12 5 - 34 U/L 12/20/2023 2:47 PM SPLIT LEATHER DEPARTMENT SUPERVISOR [facility] SGPT (ALT) 10 0 - 55 U/L 12/20/2023 2:47 PM SPLIT LEATHER DEPARTMENT SUPERVISOR [facility] ALKALINE PHOSPHATASE 69 40 - 150 U/L 12/20/2023 2:47 PM SPLIT LEATHER DEPARTMENT SUPERVISOR [facility] GFR, ESTIMATED >60 >=60 12/20/2023 2:47 PM SPLIT LEATHER DEPARTMENT SUPERVISOR [facility] Comment: Creatinine Clearance is the preferred criteria for selecting drug dose adjustments in renally impaired patients. The GFR is provided as additional pertinent clinical information. GFR is reported in mL/min/1.73 sq m. Calculation based on the Chronic Kidney Disease Epidemiology Collaboration (CKD- EPI) equation refit without adjustment for race. GFR, EST. >60 >=60 024 2:47 PM SPLIT LEATHER DEPARTMENT SUPERVISOR [facility] GFR, EST. NONAFRICAN >60 >=60 12/20/2023 2:47 PM SPLIT LEATHER DEPARTMENT SUPERVISOR [facility] Blood No Phlebotomy Charged / Unknown 12/20/2023 12:30 PM SPLIT LEATHER DEPARTMENT SUPERVISOR 12/20/2023 2:26 PM SPLIT LEATHER DEPARTMENT SUPERVISOR us Victoriano Reid MD CHEMISTRY ORDERABLES Final Resul t [facility] #1 [facility] [place] [address] documented in this encounter Visit Diagnoses Diagnosis Type 2 diabetes mellitus with other specified complication documented in this encounter Additional Health Concerns Assessment Noted Time PHQ-9 Depression Total Score: 0 08/15/20 21 10:00 AM CDT documented as of this encounter Care Teams Atg Java Developer Relationship Specialty Start Date End Date Victoriano Reid MD PCP - General Family Medicine 06/19/19 06/29/24 Elva Olivares DO 2 [facility] [address] [address] PCP - General Family Medicine 07/01/24 [place] LSW [place] Materials Planning Manager Pediatric Nurse 11/03/24 Cabrera Yadav MD #2 [facility] [address] [place] [address] Consulting Physician Urology 11/07/24 Viktoriya Arias LSW [place] Materials Planning Manager Pediatric Nurse 04/22/25 documented as of this encounter
--- OUTSIDE RECORDS SUMMARY | 2025-05-09 18:50 | XMS_ITS | Encounter Summary ---
Author Organization [facility] Address [address] [place] [address] Phone Care Team Providers Care Quality System Manager Name Role Phone Victoriano Reid MD Primary Care Provider [phone] Malissa Joe RN Unavailable Unavailable Malissa Joe RN Unavailable Unavailable Elva Olivares DO Primary Care Provider [phone] [place] BIOFUELS RESEARCH SCIENTIST Unavailable UnaCabrera Nevarez MD Unavailable [phone] Viktoriya Arias BIOFUELS RESEARCH SCIENTIST Unavailable Unavailab le Encounter Details Date Type Department Care Team (Late st Contact Info) Description 08/03/2020 [facility] 1 [place] [phone] Victoriano Reid MD #1 [place] [address] Type 2 diabetes mellitus with hyperglycemia (HCC) [...] PM CDT Clinical Support [facility] #2 [place] [address] Nurse [facility] 06/02/2025 12:10 PM CDT Hospital Encounter [facility] Periop 1 [place] [address] Cabrera Yadav MD #[address] [address] 06/02/2025 12:10 PM CDT - 06/02/2025 2:40 PM CDT [facility] 1 [place] [address] Cabrera Yadav MD #[address] [address] CYSTOSCOPY AND LITHOLAPAXY, PATIENT WILL NEED A [...] RESULTS STAPHYLOCOCCUS AUREUS 08/06/2020 9:58 AM CDT [facility] CULTURE RESULTS ALSO MIXED GROWTH OF DISTAL URETHRA CONTAMINANTS. 08/06/2020 9:58 AM CDT [facility] Urine Non-Phlebotomy Collection / Unknown 08/03/2020 2:00 PM CDT 08/03/2020 5:01 PM CDT Narrative Organism Antibiotic Method Susceptibility Staphylococcus aureus Gentamicin [facility] V[facility] II >=16 mcg/ml: Resistant Staphylococcus aureus Oxacillin [facility] II <=0.25 mcg/ml: Susceptible Staphylococcus aureus Tetracycline [facility] II <=1 mcg/ml: Susceptible Staphylococcus aureus Trimeth/Sulfamethoxazole [facility] RANDY II <=10 mcg/ml: Susceptible Staphylococcus aureus Vancomycin [facility] V[facility] II <=0.5 mcg/ml: Susceptible Victoriano Reid MD MICROBIOLOGY - GENERAL ORDERABLE S Final Result Performing Organization Address City/[facility]/ZIP Co de Phone Number [facility] [address] [facility] [place] [address], * THYROID SCREEN WITH REFLEX (08/03/2020 2:00 PM CDT) Pathologist [facility] TSH 2.480 0.270 - 4.200 mIU/L 08/03/2020 5:35 PM CDT [facility] Blood Venipuncture / Unknown 08/03/2020 2:00 PM CDT 08/03/2020 4:54 PM CDT Victoriano Reid MD CHEMISTRY ORDERABLES Final Resul t [facility] #[address] [place] [address] * (ABNORMAL) CBC WITH AUTO DIFFERENTIAL (08/03/2020 2:00 PM CDT) Pathologist [facility] WBC 8.32 4.00 - 12.00 10(3)/mcL 08/03/2020 5:02 PM CDT [facility] RBC 4.20 3.80 - 5.30 10(6)/mcL 08/03/2020 5:02 PM CDT [facility] HEMOGLOBIN (HGB) 13.5 12.0 - 15.8 g/dL 08/03/2020 5:02 PM CDT [facility] HEMATOCRIT (HCT) 41.8 36.0 - 47.0 % 08/03/2020 5:02 PM CDT [facility] MCV 99.5(H) 82.0 - 96.0 fL 08/03/2020 5:02 PM CDT [facility] MCH 32.1 26.0 - 34.0 pg 08/03/2020 5:02 PM CDT [facility] MCHC 32.3 31.0 - 36.0 g/dL 08/03/2020 5:02 PM CDT [facility] PLATELET COUNT 191 140 - 440 10(3)/mcL 08/03/2020 5:02 PM CDT [facility] RDW 14.8 11.8 - 15.5 % 08/03/2020 5:02 PM CDT [facility] MPV 11.2 9.7 - 12.4 fL 08/03/2020 5:02 PM CDT [facility] NEUTROPHILS 59.8 47.0 - 73.0 % 08/03/2020 5:02 PM CDT [facility] LYMPHOCYTES 29.7 18.0 - 42.0 % 08/03/2020 5:02 PM CDT [facility] MONOCYTES 6.3 4.0 - 12.0 % 08/03/2020 5:02 PM CDT [facility] EOSINOPHILS 3.5 0.0 - 5.0 % 08/03/2020 5:02 PM CDT [facility] BASOPHILS 0.7 0.0 - 1.0 % 08/03/2020 5:02 PM CDT [facility] ABSOLUTE NEUTROPHILS 4.98 1.60 - 7.70 10(3)/mcL 08/03/2020 5:02 PM CDT [facility] ABSOLUTE LYMPHOCYTES 2.47 1.30 - 3.20 10(3)/mcL 08/03/2020 5:02 PM CDT [facility] ABSOLUTE MONOCYTES 0.52 0.20 - 1.00 10(3)/mcL 08/03/2020 5:02 PM CDT [facility] ABSOLUTE EOSINOPHIL 0.29 0.00 - 0.40 10(3)/mcL 08/03/2020 5:02 PM CDT [facility] ABSOLUTE BASOPHILS 0.06 0.00 - 0.10 10(3)/mcL 08/03/2020 5:02 PM CDT [facility] NRBC PER 100 WBC 0 08/03/20 5:02 PM CDT [facility] Blood Venipuncture / Unknown 08/03/2020 2:00 PM CDT 08/03/2020 4:53 PM CDT Victoriano Reid MD HEMATOLOGY ORDERABLES Final Resu lt Performing Organization Address City/[facility] Co de Phone Number [facility] #[address] [place] [address] * (ABNORMAL) UR MICROALBUMIN/CREATININE RATIO RANDOM (08/03/2020 2:00 PM CDT) Pathologist [facility] RAN UR MICROALBUMIN <=1.20 <=2.00 mg/dL 08/03/2020 6:27 PM CDT [facility] CREATININE URINE 9.5(L) 28.0 - 217.0 mg/dL 08/03/2020 6:27 PM CDT [facility] ALB/CREAT RATIO <=126(H) 1 - 30 mg/g CRE 08/03/2020 6:27 PM CDT [facility] Urine Non-Phlebotomy Collection / Unknown 08/03/2020 2:00 PM CDT 08/03/2020 6:14 PM CDT Victoriano Reid MD URINE ORDERABLES Final Result Performing Organization Address [facility] Co de Phone Number [facility] #[address] [place] [address] * (ABNORMAL) URINALYSIS REFLEX IF INDICATED BY ABNORMAL RESULTS (08/03/2020 2:00 PM CDT) [facility] SPECIFIC GRAVITY 1.005 1.003 - 1.030 08/03/2020 5:24 PM CDT [facility] URINE PH 7.0 5.0 - 9.0 08/03/2020 5:24 PM CDT [facility] WBC ESTERASE 500 /uL(A) Negative 08/03/2020 5:24 PM CDT [facility] NITRITE Positive(A) Negative 08/03/2020 5:24 PM CDT [facility] PROTEIN, RANDOM URINE Negative Negative 08/03/2020 5:24 PM CDT [facility] URINE GLUCOSE, QUAL Negative Negative 08/03/2020 5:24 PM CDT [facility] URINE KETONES Negative Negative 08/03/2020 5:24 PM CDT [facility] UROBILINOGEN Normal Normal mg/dL 08/03/2020 5:24 PM CDT [facility] URINE BILIRUBIN Negative Negative 0 5:24 PM CDT [facility] URINE BLOOD Negative Negative josefa/ul 08/03/2020 5:24 PM CDT [facility] URINALYSIS COLOR Yellow 08/03/2020 5:24 PM CDT [facility] URINALYSIS CLARITY Slightly Cloudy 08/03/2020 5:24 PM CDT [facility] WBC (Urine) 21-50(A) Negative, 0-5 /hpf 08/03/2020 5:24 PM CDT [facility] URINE RBC'S 0-2 Negative, 0-2 /hpf 08/03/2020 5:24 PM CDT [facility] EPITHELIAL CELLS Occasional /lpf 08/03/2020 5:24 PM CDT [facility] BACTERIA, URINE Few(A) Negative /hpf 08/03/2020 5:24 PM CDT [facility] Urine Non-Phlebotomy Collection / Unknown 08/03/2020 2:00 PM CDT 08/03/2020 5:01 PM CDT us Victoriano Reid MD URINE ORDERABLES Final Result [facility] #[address] [place] [address] * THYROXINE (T4) FREE (08/03/2020 2:00 PM CDT) T4 FREE 1.0 0.9 - 1.7 ng/dL 08/03/2020 5:35 PM CDT [facility] Blood Venipuncture / Unknown 08/03/2020 2:00 PM CDT 08/03/2020 4:55 PM CDT Victoriano Reid MD CHEMISTRY ORDERABLES Final Resul t Performing Organization Address City/[facility] Co de Phone Number [facility] #[address] [place] [address] * (ABNORMAL) HEMOGLOBIN A1C W/ ESTIMATED GLUCOSE (08/03/2020 2:00 PM CDT) [facility] HGB-A1C 6.1(H) 4.0 - 6.0 % 08/03/2020 5:29 PM CDT [facility] Est Average Glucose 128.4 mg/dL 08/03/2020 5:29 PM CDT [facility] Blood Venipuncture / Unknown 08/03/2020 2:00 PM CDT 08/03/2020 5:14 PM CDT Narrative [facility] - 08/03/2020 5:29 PM CDT HEMOGLOBIN A1C: DIABETIC PATIENTS: WELL-CONTROLLED: 6.2 - 7.0 INTERMEDIATE WELL-CONTROLLED: 7.0 - 9.0 POORLY-CONTROLLED: >9.0 Victoriano Reid MD CHEMISTRY ORDERABLES Final Resul t Performing Organization Address City/[facility] Co de Phone Number [facility] [address] [place] [address] * (ABNORMAL) LIPID PANEL (08/03/2020 2:00 PM CDT) [facility] CHOLESTEROL 149 <=200 mg/dL 08/03/2020 5:35 PM CDT [facility] TRIGLYCERIDES 138 <150 mg/dL 08/03/2020 5:35 PM CDT [facility] HDL CHOLESTEROL 33.9(L) >40 mg/dL 0 5:35 PM CDT [facility] LDL 88 5 - 130 mg/dL 08/03/2020 5:35 PM CDT [facility] VLDL 28 5 - 55 mg/dL 08/03/2020 5:35 PM CDT [facility] CHOL/HDL RATIO 4.4 0.0 - 4.4 08/03/2020 5:35 PM CDT [facility] NON-HDL CHOLESTEROL 115.1 <130 mg/dL 08/03/2020 5:35 PM CDT [facility] LIPID FASTING 08/03/2020 5:35 PM CDT [facility] Blood Venipuncture / Unknown 08/03/2020 2:00 PM CDT 08/03/2020 4:55 PM CDT us Victoriano Reid MD CHEMISTRY ORDERABLES Final Resul t [facility] #[address] [place] [address] * (ABNORMAL) CMP (COMPREHENSIVE METABOLIC PANEL) (08/03/2020 2:00 PM CDT) SODIUM 138 136 - 144 mmol/L 08/03/2020 5:35 PM CDT [facility] POTASSIUM 4.2 3.5 - 5.1 mmol/L 08/03/2020 5:35 PM CDT [facility] CHLORIDE 101 100 - 110 mmol/L 08/03/2020 5:35 PM CDT [facility] CO2, VENOUS 29 22 - 32 mmol/L 08/03/2020 5:35 PM CDT [facility] ANION GAP 12.2 8.0 - 20.0 mmol/L 08/03/2020 5:35 PM CDT [facility] GLUCOSE 126(H) 70 - 99 mg/dL 08/03/2020 5:35 PM CDT [facility] BUN 13 8 - 23 mg/dL 08/03/2020 5:35 PM CDT [facility] CREATININE, BLOOD 0.50(L) 0.60 - 1.10 mg/dL 08/03/2020 5:35 PM [facility] BUN/CREATININE RATIO 26(H) 12 - 20 ratio 08/03/2020 5:35 PM [facility] TOTAL PROTEIN 6.2 6.0 - 8.3 g/dL 08/03/2020 5:35 PM [facility] ALBUMIN 3.9 3.5 - 5.2 g/dL 08/03/2020 5:35 PM [facility] Comment: The colormetric methods used for the determination of Albumin may lead to falsely elevated test results in patients suffering from renal failure or insufficiency due to interference with other proteins. A/G RATIO 1.7 1.0 - 2.0 08/03/2020 5:35 PM [facility] CALCIUM 9.4 8.9 - 10.3 mg/dL 08/03/2020 5:35 PM [facility] T BILI <=0.2 <=1.2 mg/dL 08/03/2020 5:35 PM [facility] SGOT (AST) 12 <=32 U/L 08/03/2020 5:35 PM [facility] SGPT (ALT) 9 <=33 U/L 08/03/2020 5:35 PM [facility] ALKALINE PHOSPHATASE 60 35 - 105 U/L 08/03/2020 5:35 PM [facility] GFR, EST. NONAFRICAN >60 >=60 08/03/2020 5:35 PM [facility] GFR, EST. >60 >=60 020 5:35 PM [facility] Comment: Creatinine Clearance is the preferred criteria for selecting drug dose adjustments in renally impaired patients. The GFR is provided as additional pertinent clinical information. GFR is reported in mL/min/1.73 sq m. 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 [address] [place] [address] PCP - General Family Medicine 07/01/24 Malissa Joe, RN [place] Nurse Hydropress Operator 12/03/23 12/03/23 Malissa Joe, RN [place] Nurse Hydropress Operator 12/05/23 12/05/23 H[place] LSW [place] Hydraulic Assembler Hydropress Operator 11/03/24 Cabrera Yadav MD [facility] [address] [place] [address] Consulting Physician Urology 11/07/24 Viktoriya Arias LSW [place] Hydraulic Assembler Hydropress Operator 04/22/25 documented as of this encounter
--- OUTSIDE RECORDS SUMMARY | 2025-05-09 18:50 | XMS_ITS | Encounter Summary ---
Author Organization [facility] Address [address] [place] [address] Phone Care Team Providers Care Scribing Machine Operator Name Role Phone Victoriano Reid MD Primary Care Provider [phone] Malissa Joe RN Unavailable Unavailable Malissa Joe RN Unavailable Unavailable Elva Olivares DO Primary Care Provider [phone] Hinton RICKSHAW DRIVER Unavailable Cabrera Smallwood MD Unavailable [phone] Viktoriya Arias RICKSHAW DRIVER Unavailable Unavailab le Reason for Visit * Reason Onset Date Comments Medication Refill 12/27/2021 Encounter Details Date Type Department Care Team (Late st Contact Info) Description 12/27/2021 Refill [facility] - Family Medicine [facility] [address] [place] [address] Victoriano Reid MD [address] [place] [address] Medication Refill Social History Tobacco Use Types [...] Osmariela Rogers 02/14/21 Telemedicine Victoriano Reid MD [facility] Showing recent visits within past 365 days and meeting all other requirements Future Appointments Date Type Provider Dept 01/02/22 Appointment Saranya Brooke APRN, HAND SHAPER [facility] Showing future appointments within next 90 days and meeting all other requirements * Telephone Encounter - Estephanie Parham - 12/27/2021 9:11 AM CDT Received a faxed Rx request from pharmacy. Reordered refill medication(s) requested and pended for nurse and physician/NICKOLAS review. Refill encounter routed to nurse Danis's pool for processing. documented in this encounter Plan of Treatment Upcoming Encounters Date Type Department Care Team (Latest Contact Info) Description 05/12/2025 1:30 PM CDT Clinical Support [facility] #[address] [place] [address] NurseKen Urology 06/02/2025 12:10 PM CDT [facility] [address] [place] [address] Cabrera Yadav MD #2 [facility] [address] [place] [address] 06/02/2025 12:10 PM CDT - 06/02/2025 2:40 PM CDT [facility] 1 [facility] [place] [address] Cabrera Yadav MD #2 [facility] [address] [place] [address] CYSTOSCOPY AND LITHOLAPAXY, PATIENT WILL NEED A PAUL LIFT Scheduled Procedures Name Priority Associated Diagnoses Date/Ti vt CYSTOSCOPY BLADDER STONE BLADDER STONES 06/02/2025 12:10 PM CDT documented as of this encounter Visit Diagnoses Not on filedocumented in this encounter Additional Health Concerns Assessment Noted Time PHQ-9 Depression Total Score: 0 08/15/20 10:00 AM CDT documented as of this encounter Care Teams Scribing Machine Operator Relationship Specialty Start Date End Date Victoriano Reid MD PCP - General Family Medicine 06/19/19 06/29/24 Elva Olivares DO 2 [facility] [address] [place] [address] PCP - General Family Medicine 07/01/24 Malissa Joe, RN [place] Nurse Crane Assembler 12/03/23 12/03/23 Malissa Joe RN [place] Nurse Crane Assembler 12/05/23 12/05/23 Hinton, RICKSHAW DRIVER [place] Fishing Worker Crane Assembler 11/03/24 Cabrera Yadav MD #[address] [address] Consulting Physician Urology 11/07/24 Viktoriya Arias, [place] Fishing Worker Crane Assembler 04/22/25 documented as of this encounter
--- OUTSIDE RECORDS SUMMARY | 2025-05-09 18:50 | XMS_ITS | Encounter Summary ---
Author Organization [facility] Address [address] [place] [address] Phone Care Team Providers Care Circle Saw Operator Name Role Phone Victoriano Reid MD Primary Care Provider [phone] Malissa Joe RN Unavailable Unavailable Malissa Joe RN Unavailable Unavailable Elva Olivares DO Primary Care Provider [phone] Hinton PREMIX CONCRETE BATCHER Unavailable UnaCabrera Nevarez MD Unavailable [phone] Viktoriya Arias PREMIX CONCRETE BATCHER Unavailable Unavailab le Encounter Details Date Type Department Care Team (Late st Contact Info) Description 05/19/2020 [facility] [address] [place] [address] Victoriano Reid MD [address] [place] [address] Urinary tract infection, site not specified Social [...] Description 05/12/2025 1:30 PM CDT Clinical Support [facility] #[address] [place] [address] NurseKen Urology 06/02/2025 12:10 PM CDT Hospital Encounter [facility] Periop 1 [facility] [place] [address] Cabrera Yadav MD #[address] [address] 06/02/2025 12:10 PM CDT - 06/02/2025 2:40 PM CDT [facility] 1 [facility] [place] [address] Cabrera Yadav MD #[address] [address] CYSTOSCOPY AND LITHOLAPAXY, PATIENT WILL NEED A [...] CITROBACTER AMALONATICUS 05/23/2020 9:23 AM CDT [facility] CULTURE RESULTS ESCHERICHIA COLI 05/23/2020 9:23 AM CDT [facility] Urine Non-Phlebotomy Collection / Unknown [...] MICROBIOLOGY - GENERAL ORDERABLE S Final Result [facility] [address] [place] [address], * (ABNORMAL) URINALYSIS REFLEX IF INDICATED BY ABNORMAL RESULTS (05/19/2020 2:15 PM CDT) SPECIFIC GRAVITY 1.010 1.003 - 1.030 05/19/2020 4:46 PM CDT [facility] URINE PH 8.0 5.0 - 9.0 05/19/2020 4:46 PM CDT [facility] WBC ESTERASE 500 /uL(A) Negative 05/19/2020 4:46 PM CDT [facility] NITRITE Positive(A) Negative 05/19/2020 4:46 PM CDT [facility] PROTEIN, RANDOM URINE 15 mg/dL(A) Negative 05/19/2020 4:46 PM CDT [facility] URINE GLUCOSE, QUAL Negative Negative 05/19/2020 4:46 PM CDT [facility] URINE KETONES Negative Negative 05/19/2020 4:46 PM CDT [facility] UROBILINOGEN Normal Normal mg/dL 05/19/2020 4:46 PM CDT [facility] URINE BILIRUBIN Negative Negative 0 4:46 PM CDT [facility] URINE BLOOD 150 /uL(A) Negative josefa/ul 05/19/2020 4:46 PM CDT [facility] URINALYSIS COLOR Dark Yellow 020 4:46 PM CDT [facility] URINALYSIS CLARITY Very Cloudy 05/19/2020 4:46 PM CDT [facility] WBC (Urine) 51-150(A) Negative, 0-5 /hpf 05/19/2020 4:46 PM CDT [facility] URINE RBC'S 6-10(A) Negative, 0-2 /hpf 05/19/2020 4:46 PM CDT [facility] EPITHELIAL CELLS Small amount /lpf 2019 4:46 PM CDT [facility] BACTERIA, URINE Packed(A) Negative /hpf 05/19/2020 4:46 PM CDT [facility] Urine Non-Phlebotomy Collection / Unknown 05/19/2020 2:15 PM CDT 05/19/2020 4:30 PM CDT Victoriano Reid MD URINE ORDERABLES Final Result [facility] #[address] [place] [address] documented in this encounter Visit Diagnoses Diagnosis Urinary tract infection, site not specified documented in this encounter Additional Health Concerns Infection Onset Date Last Indicated Resolved Time 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 [address] [place] [address] PCP - General Family Medicine 07/01/24 Malissa Joe, RN [place] Nurse Senior Control Systems Engineer 12/03/23 12/03/23 Malissa Joe, RN [place] Nurse Senior Control Systems Engineer 12/05/23 12/05/23 Hinton LSW [place] Offensive Coordinator Senior Control Systems Engineer 11/03/24 Cabrera Yadav MD #2 [facility] [address] [place] [address] Consulting Physician Urology 11/07/24 Viktoriya Arias LSW [place] Offensive Coordinator Senior Control Systems Engineer 04/22/25 documented as of this encounter
--- OUTSIDE RECORDS SUMMARY | 2025-05-09 18:50 | XMS_ITS | Encounter Summary ---
Author Organization [facility] Address [address] [place] [address] Phone Care Team Providers Care Fire Boat Engineer Name Role Phone Victoriano Reid MD Primary Care Provider [phone] Malissa Joe RN Unavailable Unavailable Malissa Joe RN Unavailable Unavailable Elva Olivares DO Primary Care Provider [phone] Hinton SANITATION LABORER Unavailable Cabrera Smallwood MD Unavailable [phone] Viktoriya Arias SANITATION LABORER Unavailable Unavailab le Reason for Visit * Reason Comments Medication Refill Encounter Details Date Type Department Care Team (Late st Contact Info) Description 10/21/2023 Refill [facility] - Family Medicine [facility] #[address] [place] [id number] Victoriano Reid MD [address] [place] [address] Medication Refill Social History Tobacco Use Types Packs/Day Years Used Date Smoking Tobacco: Every Day Cigarettes Smokeless Tobacco: Never Alcohol Use Standard Drinks/Week Comments Not Currently 0 (1 standard drink = 0.6 oz pur e alcohol) [facility] Utilities Answer Date Recorded In the past 12 months has Simple, gas, oil, or water company threatened to shut off services in your home? Yes 10/22/2023 Social Connection and Isolation Panel Answer Date Recorded In a typical week, how many times do you talk on the phone with family, friends, or neighbors? More than three times a week 10/22/2023 How often do you get togethe r with friends or relatives? More than three times a week 10/22/2023 How often do you attend chur ch or spiritism services? Never 10/22/2023 Do you belong to [...] Total Score - Questions 1-9 0 12/14 [facility] - Occupational Stress Questionnaire Answer [...] slept in a halfway (including now)? No 10/22/2023 Education Answer Date [...] of Assessment Author 0 10/22/2023 10:19 PM STRAP SEWER [employer], System Background * Q1: How often do you have a drink containing alcohol? Answer Date of Assessment Author Never 10/22/2023 10:19 PM STRAP SEWER [employer], System Background * Q2: How many drinks containing alcohol do you have on a typical day when you are drinking? Answer Date of Assessment Author Patient does not drink 10/22/2023 10:19 PM STRAP SEWER [employer], System Background * Q3: How often do you have six or more drinks on one occasion? Answer Date of Assessment Author Never 10/22/2023 10:19 PM STRAP SEWER [employer], System Background documented as of this encounter Miscellaneous Notes * Telephone Encounter - Adelaida Medina RN - 10/21/2023 5:45 PM STRAP SEWER Medication failed the protocol, provider to review [...] Dept 03/29/23 Office Visit Victoriano Reid MD [facility] Showing recent visits within past 365 days and meeting all other requirements Future Appointments Date Type Provider Dept 10/23/23 Appointment Miriam Prasad, KARISSA, LORI [facility] 12/21/23 Appointment Victoriano Reid MD [facility] Showing future appointments within next 90 days and meeting all other requirements P SEWER documented in this encounter Plan of Treatment Upcoming Encounters Date Type Department Care Team (Latest Contact Info) Description 05/12/2025 1:30 PM CDT Clinical Support [facility] #[address] [place] [address] NurseKen Urology 06/02/2025 12:10 PM CDT [facility] [address] [place] [address] Cabrera Yadav MD #[address] [address] 06/02/2025 12:10 PM CDT - 06/02/2025 2:40 PM CDT [facility] [address] [place] [address] Cabrera Yadav MD #[address] [address] CYSTOSCOPY AND LITHOLAPAXY, PATIENT WILL NEED A PAUL LIFT Scheduled Procedures Name Priority Associated Diagnoses Date/Ti ne CYSTOSCOPY BLADDER STONE BLADDER STONES 06/02/2025 12:10 PM CDT documented as of this encounter Visit Diagnoses Diagnosis Neurogenic bladder Neurogenic bladder, NOS 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 [address] [place] [address] PCP - General Family Medicine 07/01/24 Malissa Joe, RN [place] Nurse Geophysical E Logger 12/03/23 12/03/23 Malissa Joe, RN [place] Nurse Geophysical E Logger 12/05/23 12/05/23 Hinton LSW [place] Emergency Management Program Specialist Geophysical E Logger 11/03/24 Cabrera Yadav MD #2 [facility] [address] [place] [address] Consulting Physician Urology 11/07/24 Viktoriya Arias LSW [place] Emergency Management Program Specialist Geophysical E Logger 04/22/25 documented as of this encounter
--- OUTSIDE RECORDS SUMMARY | 2025-05-09 18:50 | XMS_ITS | Clinical Summary ---
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 -TTE shows grade 1 diastolic dysfunction and normal LVEF - starting [facility] inpatient today Assessment & Plan (03/11/2019 [...] diastolic dysfunction and normal LVEF - starting [facility] inpatient tomorrow Vitamin D deficiency 03/03/2019 [...] Discharge plans for acute inpatient rehab at [facility]. - No weight bearing restrictions, but [...] Discharge plans for acute inpatient rehab at [facility]. - No weight bearing restrictions, but [...] certainly need placement for aggressive PT/OT. [place]. - No weight bearing restrictions, [...] certainly need placement for aggressive PT/OT. [place]. - No weight bearing restrictions, [...] certainly need placement for aggressive PT/OT. [place]. - No weight bearing restrictions, [...] certainly need placement for aggressive PT/OT. [place]. - No weight bearing restrictions, [...] today, please call Janice Adams NP at [phone]. If after hours, please contact the Diabetes Fellow at [phone]. Assessment & Plan (03/14/2019 10:32 AM CDT): [...] today, please call Crista Montgomery NP at [phone]. If after hours, please contact the Diabetes Fellow at [phone]. Assessment & Plan (03/12/2019 10:31 AM CDT): [...] today, please call Janice Adams NP at [phone]. If after hours, please contact the Diabetes Fellow at [phone]. Assessment & Plan (03/05/2019 6:21 PM CDT): [...] after the previous Dexamethasone wears off -monitor [facility] Patient has been seen by CDE. [...] were discussed with the primary team. Call [phone] with questions on day of service only. If after hours or weekends, please contact the Diabetes Fellow at [phone], option #1 Assessment & Plan (02/28/2019 12:17 [...] were discussed with the primary team. Call [phone] with questions on day of service only. If after hours or weekends, please contact the Diabetes Fellow at [phone], option #1 Assessment & Plan (02/26/2019 4:31 [...] today, please call Crista Montgomery NP at [phone]. If after hours, please contact the Diabetes Fellow at [phone]. Assessment & Plan (02/24/2019 10:05 AM CDT): -New diagnosis. A1c 8.9 -LDSSI. DM educator c/s, intermodal customer service -Monitor BG with decadron Resolved Problems Problem [...] -TTE (04/16) with EF 74%, mild TR, NM; G1DD, normal RV size and function. -if [...] Comments Blood Pressure 111/76 09/03/2019 12:16 PM STRUCTURAL DESIGN ENGINEER Pulse 81 09/03/2019 12:16 PM STRUCTURAL DESIGN ENGINEER Temperature 36.4 C (97.5 F) 09/03/2019 12:16 PM STRUCTURAL DESIGN ENGINEER Respiratory Rate 16 09/03/2019 12:1 6 PM STRUCTURAL DESIGN ENGINEER Oxygen Saturation 100% 09/03/2019 12: 16 PM STRUCTURAL DESIGN ENGINEER Inhaled Oxygen Concentration - - Weight 79.8 kg (176 lb) 09/03/2019 12:1 6 PM STRUCTURAL DESIGN ENGINEER weight -verbal per patient Height 165.1 cm (5' 5) 09/03/2019 12:1 6 PM STRUCTURAL DESIGN ENGINEER Body Mass Index 29.29 09/03/2019 12:16 PM STRUCTURAL DESIGN ENGINEER Plan of Treatment Not on file Medical Devices Implanted Type Area Assembly Loader Device Identifier Shelf Expiration Date Model / Serial / Lot Depuy Spine [id number] 5.5mm 1 Inner Spine Screw Set Titanium Nonsterile Viper - [id number] Implanted:Qty: 8 on 02/24/2019 by Edelmira Pimentel MD at [facility] Screw N/A: Spine Lumbar Depuy Spine [id number] / / Depuy Synthes Spine [id number] Viper Prime Od5 Mm L45 Mm Fix Polyaxial Fenestrate Extend Tab Spine Cortical Screw Bone Nonsterile 5.5 Mm Dav - [id number] Implanted:Qty: 2 on 02/24/2019 by Edelmira Pimentel MD at [facility] Screw N/A: Spine Lumbar Depuy Synthes Spine [id number] / / Depuy Synthes Spine [id number] Viper Prime Od6 Mm L40 Mm Fix Polyaxial Fenestrate Extend Tab Spine Cortical Screw Bone Nonsterile 5.5 Mm Dav - [id number] Implanted:Qty: 2 on 02/24/2019 by Edelmira Pimentel MD at [facility] Screw N/A: Spine Lumbar Depuy Synthes Spine [id number] / / Depuy Synthes Spine [id number] Viper Prime Od6 Mm L45 Mm Fix Polyaxial Fenestrate Extend Tab Spine Cortical Screw Bone Nonsterile 5.5 Mm Dav - [id number] Implanted:Qty: 4 on 02/24/2019 by Edelmira Pimentel MD at [facility] N/A: Spine Lumbar Depuy Synthes Spine [id number] / / Ti Mis Depuy Viper Kypho Dav Implanted:Qty: 2 on 02/24/2019 by Edelmira Pimentel MD at [facility] N/A: Spine Lumbar Depuy Spine [id number] / / [employer] [id number] Xcela 8fr 1.6mm 1 Lumen Power Injectable Attach Catheter Fill - [id number] Implanted:Qty: 1 on 04/29/2019 at [facility] Ang[employer] Dynamics 02/17/2024 [id number] / / [id number] [place] [address] [address] [place] [address] Advance Directives For more information, please contact: [phone] Documents on File Type Date Recorded Patient Painter And Grader Cork Expl anation ADVANCE DIRECTIVE 05/03/2019 1:58 PM POWER OF SERVICE STATION CASHIER-MEDICAL ADVANCE DIRECTIVE 05/02/2019 5:43 AM POWER OF SERVICE STATION CASHIER-MEDICAL ADVANCE DIRECTIVE 04/30/2019 3:45 PM ADVANCE DIRECTIVE 04/27/2019 1:33 PM POWER OF SERVICE STATION CASHIER-MEDICAL * Full Code (Latest Code Status on [...] 9:21 PM 03/14/2019 6:56 PM Care Teams Paving Inspector Relationship Specialty Start Date End Date Victoriano Reid MD PCP - General Family Medicine 06/20/19 Rashaun Peoples MD [address] [facility] [address] [place] [id number] Medical Oncologist/Building Service Worker Medical Oncology 08/07/19 Edelmira Pimentel MD [address] [address] Surgeon Orthopedic Surgery 09/01/19
--- OUTSIDE RECORDS SUMMARY | 2025-05-09 18:50 | XMS_ITS | Encounter Summary ---
Author Organization [facility] Address [address] [place] [address] Phone Care Team Providers Care Aeronautical Products Sales Engineer Name Role Phone Victoriano Reid MD Primary Care Provider Malissa Joe RN Unavailable Unavailable Malissa Joe RN Unavailable Unavailable Elva Olivares DO Primary Care Provider [phone] [place] FRONTEND ENGINEER Unavailable UnaCabrera Nevarez MD Unavailable [phone] Viktoriya Arias FRONTEND ENGINEER Unavailable Unavailab le Encounter Details Date Type Department Care Team (Late st Contact Info) Description 10/31/2021 [facility] [address] [place] [id number] Victoriano Reid MD [address] [place] [address] Personal history of urinary (tract) infections Social History Tobacco Use Types Packs/Day Years Used Date Smoking Tobacco: Every Day Cigarettes Smokeless Tobacco: Never Alcohol Use Standard Drinks/Week Comments Not Currently 0 (1 standard drink = 0.6 oz pur e alcohol) PHQ-2 Answer Date Recorded Total Score - Questions 1-9 0 11/10/2020 Sexually Active Control Partners Comments Not Currently Comments No Sex and Gender Information Value Date Recorded Sex Assigned at Not on file Legal Sex Female 5:08 PM CDT Gender Identity Not on file Sexual Orientation Not on file documented as of this encounter Plan of Treatment Upcoming Encounters Date Type Department Care Team (Latest Contact Info) Description 05/12/2025 1:30 PM CDT Clinical Support [facility] #[address] [place] [address] NurseKen Urology 06/02/2025 12:10 PM CDT Hospital Encounter [facility] Periop [address] [place] [address] Cabrera Yadav MD #2 [facility] [address] [place] [address] 06/02/2025 12:10 PM CDT - 06/02/2025 2:40 PM CDT [facility] [address] [place] [address] Cabrera Yadav MD #2 [facility] [address] [place] [address] CYSTOSCOPY AND LITHOLAPAXY, PATIENT WILL NEED A PAUL LIFT Scheduled Procedures Name Priority Associated Diagnoses Date/Ti me CYSTOSCOPY BLADDER STONE BLADDER STONES 06/02/2025 12:10 PM CDT documented as of this encounter Procedures Procedure Name Priority Date/Time Associated Diagnosis Comments URINALYSIS REFLEX IF INDICATED BY ABNORMAL RESULTS Routine 10/31/2020 12:15 PM INSPECTOR BRAKE LINING Personal history of urinary (tract) infections CULTURE, URINE Routine 10/31/2020 12:15 PM INSPECTOR BRAKE LINING Personal history of urinary (tract) infections documented in this encounter Results * CULTURE, URINE (10/31/2020 12:15 PM INSPECTOR BRAKE LINING) CULTURE RESULTS MIXED GROWTH OF 3 OR MORE ORGANISMS, PROBABLE COLLECTION CONTAMINATION, SUGGEST REPEAT URINE CULTURE. 11/01/2021 4:23 PM INSPECTOR BRAKE LINING [facility] Urine Non-Phlebotomy Collection / Unknown 10/31/2020 12:15 PM INSPECTOR BRAKE LINING 10/31/2021 1:47 PM INSPECTOR BRAKE LINING us Victoriano Reid MD MICROBIOLOGY - GENERAL ORDERABLE S Final Result [facility] [address] [place] [address], [place] * (ABNORMAL) URINALYSIS REFLEX IF INDICATED BY ABNORMAL RESULTS (10/31/2020 12:15 PM INSPECTOR BRAKE LINING) SPECIFIC GRAVITY 1.010 1.003 - 1.030 10/31/2021 2:26 PM INSPECTOR BRAKE LINING [facility] URINE PH 8.0 5.0 - 9.0 10/31/2021 2:26 PM [facility] WBC ESTERASE 500 /uL(A) Negative 10/31/2021 2:26 PM INSPECTOR BRAKE LINING [facility] NITRITE Negative Negative 10/31/2021 2:26 PM INSPECTOR BRAKE LINING [facility] PROTEIN, RANDOM URINE 100 mg/dL(A) Negative 10/31/2021 2:26 PM INSPECTOR BRAKE LINING [facility] URINE GLUCOSE, QUAL Negative Negative 10/31/2021 2:26 PM [facility] URINE KETONES Negative Negative 10/31/2021 2:26 PM INSPECTOR BRAKE LINING [facility] UROBILINOGEN Normal Normal mg/dL 10/31/2021 2:26 PM INSPECTOR BRAKE LINING [facility] URINE BLOOD 250 /uL(A) Negative josefa/ul 10/31/2021 2:26 PM [facility] URINALYSIS COLOR Dark Yellow 10/31/2021 2:26 PM [facility] URINALYSIS CLARITY Very Cloudy 10/31/2021 2:26 PM [facility] WBC (Urine) 21-50(A) Negative, 0-5 /hpf 10/31/2021 2:26 PM [facility] URINE RBC'S 21-50(A) Negative, 0-2 /hpf 10/31/2021 2:26 PM INSPECTOR BRAKE LINING [facility] EPITHELIAL CELLS Occasional /lpf 10/31/2021 2:26 PM INSPECTOR BRAKE LINING [facility] BACTERIA, URINE Packed(A) Negative /hpf 10/31/2021 2:26 PM INSPECTOR BRAKE LINING [facility] Urine Non-Phlebotomy Collection / Unknown 10/31/2020 12:15 PM INSPECTOR BRAKE LINING 10/31/2021 1:47 PM INSPECTOR BRAKE LINING Victoriano Reid MD URINE ORDERABLES Final Result [facility] #[address] [place] [address] documented in this encounter Visit Diagnoses Diagnosis Personal history of urinary (tract) infections documented in this encounter Additional Health Concerns Assessment Noted Time PHQ-9 Depression Total Score: 0 10/24/19 20 11:16 AM INSPECTOR BRAKE LINING documented as of this encounter Care Teams Aeronautical Products Sales Engineer Relationship Specialty Start Date End Date Victoriano Reid MD PCP - General Family Medicine 06/19/19 06/29/24 Elva Olivares DO [address] [address] PCP - General Family Medicine 07/01/24 Malissa Joe, RN [place] Nurse Sheet Folder 12/03/23 12/03/23 Malissa Joe, RN [place] Nurse Sheet Folder 12/05/23 12/05/23 [place], FRONTEND ENGINEER [place] Gas Fitter Sheet Folder 11/03/24 Cabrera Yadav MD #[address] [address] Consulting Physician Urology 11/07/24 Viktoriya Arias LSW [place] Gas Fitter Sheet Folder 04/22/25 documented as of this encounter
--- OUTSIDE RECORDS SUMMARY | 2025-05-09 18:50 | XMS_ITS | Encounter Summary ---
Author Organization [facility] Address [address] [place] [address] Phone Care Team Providers Care Crane Hoist Or Lift Operator Name Role Phone Victoriano Reid MD Primary Care Provider [phone] Malissa Joe RN Unavailable Unavailable Malissa Joe RN Unavailable Unavailable Elva Olivares DO Primary Care Provider [phone] [place] PRESCHOOL LEAD TEACHER Unavailable Cabrera Smallwood MD Unavailable [phone] Viktoriya Arias PRESCHOOL LEAD TEACHER Unavailable Unavailab le Reason for Visit * Reason Comments Medication Refill Encounter Details Date Type Department Care Team (Late st Contact Info) Description 11/20/2023 Refill [facility] - Family Medicine [facility] [address] [place] [phone] Victoriano Reid MD [address] [place] [address] Medication Refill Social History Tobacco Use Types Packs/Day Years Used Date Smoking Tobacco: Every Day Cigarettes Smokeless Tobacco: Never Alcohol Use Standard Drinks/Week Comments Not Currently 0 (1 standard drink = 0.6 oz pur e alcohol) [facility] Utilities Answer Date Recorded In the past 12 months has [employer], gas, oil, or water company threatened to [...] any clubs o r organizations such as mandaen groups, unions, fraternal or athletic groups, or [...] Total Score - Questions 1-9 0 12/14 [facility] - Occupational Stress Questionnaire Answer Date Recorded [...] slept in a detention (including now)? No 10/22/2023 Education Answer Date [...] Type Provider Dept 10/23/23 Telemedicine Miriam Prasad, STUDENT MINISTRY PASTOR, MEDICAL DIAGNOSTIC RADIOGRAPHER Margarette Rogers 03/29/23 Office Visit Victoriano Reid MD [facility] Showing recent visits within past 365 days and meeting all other requirements Future Appointments Date Type Provider Dept 12/21/23 Appointment Victoriano Reid MD [facility] Ken Showing future appointments within next 90 [...] Type Provider Dept 10/23/23 Telemedicine Miriam Prasad, STUDENT MINISTRY PASTOR, MEDICAL DIAGNOSTIC RADIOGRAPHER [facility] Ken 03/29/23 Office Visit Victoriano Reid MD [facility] Ken Showing recent visits within past 365 days and meeting all other requirements Future Appointments Date Type Provider Dept 12/21/23 Appointment Victoriano Reid MD [facility] Ken Showing future appointments within next 90 days and meeting all other requirements H MEASURER documented in this encounter Plan of Treatment Upcoming Encounters Date Type Department Care Team (Latest Contact Info) Description 05/12/2025 1:30 PM CDT Clinical Support [facility] #[address] [place] [address] NurseKen Urology 06/02/2025 12:10 PM CDT [facility] [place] [address] Cabrera Yadav MD #[address] [address] 06/02/2025 12:10 PM CDT - 06/02/2025 2:40 PM CDT [facility] 1 [facility] [place] [address] Cabrera Yadav MD [facility]2 [facility] [address] [place] [address] CYSTOSCOPY AND LITHOLAPAXY, PATIENT WILL NEED A PAUL LIFT Scheduled Procedures Name Priority Associated Diagnoses Date/Ti in CYSTOSCOPY BLADDER STONE BLADDER STONES 06/02/2025 12:10 PM CDT documented as of this encounter Visit Diagnoses Diagnosis Muscle spasm Spasm of muscle documented in this encounter Additional Health Concerns Assessment Noted Time PHQ-9 Depression Total Score: 0 08/15/20 10:00 AM CDT documented as of this encounter Care Teams Crane Hoist Or Lift Operator Relationship Specialty Start Date End Date Victoriano Reid MD PCP - General Family Medicine 06/19/19 06/29/24 Elva Olivares DO 2 [facility] [address] [place] [address] PCP - General Family Medicine 07/01/24 Malissa Joe, RN [place] Nurse Managing Broker 12/03/23 12/03/23 Malissa Joe, RN [place] Nurse Managing Broker 12/05/23 12/05/23 H[place] [facility] Medical Record Librarians Teacher Managing Broker 11/03/24 Cabrera Yadav MD #2 [facility] [address] [place] [address] Consulting Physician Urology 11/07/24 Viktoriya Arias, PRESCHOOL LEAD TEACHER [place] Medical Record Librarians Teacher Managing Broker 04/22/25 documented as of this encounter
--- OUTSIDE RECORDS SUMMARY | 2025-05-09 18:50 | XMS_ITS | Encounter Summary ---
Author Organization [facility] Address [address] [facility] [place] [place] [address] Phone Care Team Providers Care Seo Associate Name Role Phone Victoriano Reid MD Primary Care Provider [phone] Malissa Joe RN Unavailable Unavailable Malissa Joe RN Unavailable Unavailable Elva Olivares DO Primary Care Provider [phone] [place] MARBLE SETTER HELPER Unavailable UnaCabrera Nevarez MD Unavailable [phone] Viktoriya Arias MARBLE SETTER HELPER Unavailable Unavailab le Encounter Details Date Type Department Care Team (Late st Contact Info) Description 04/24/2023 [facility] [address] [place] [phone] Victoriano Reid MD #[address] [place] [address] Personal history of urinary (tract) infections Social [...] 1:30 PM CDT Clinical Support [facility] #[address] [place] [address] Nurse [place] U[facility] 06/02/2025 12:10 PM CDT Hospital Encounter [facility] Per[facility] [address] [place] [address] Cabrera Yadav MD #[address] [address] 06/02/2025 12:10 PM CDT - 06/02/2025 2:40 PM CDT [facility] [address] [place] [address] Cabrera Yadav MD #[address] [address] CYSTOSCOPY AND LITHOLAPAXY, PATIENT WILL NEED A [...] RESULTS CITROBACTER AMALONATICUS 04/26/2023 8:20 PM CDT [facility] CULTURE RESULTS ENTEROCOCCUS FAECALIS 04/26/2023 8:20 PM CDT [facility] Urine Non-Phlebotomy Collection / Unknown 04/24/2023 12:54 PM CDT 04/24/2023 2:33 PM CDT Narrative [facility] - 04/26/2023 8:20 PM CDT Susceptibility not [...] MICROBIOLOGY - GENERAL ORDERABLE S Final Result [facility] [address] [place] [address], [place] * (ABNORMAL) URINALYSIS REFLEX IF INDICATED BY ABNORMAL RESULTS (04/24/2023 12:54 PM CDT) SPECIFIC GRAVITY 1.005 1.003 - 1.030 04/24/2023 3:02 PM CDT [facility] URINE PH 7.0 5.0 - 9.0 04/24/2023 3:02 PM CDT [facility] WBC ESTERASE 500 /uL(A) Negative 04/24/2023 3:02 PM CDT [facility] NITRITE Positive(A) Negative 04/24/2023 3:02 PM CDT [facility] PROTEIN, RANDOM URINE 30 mg/dL(A) Negative 04/24/2023 3:02 PM CDT [facility] URINE GLUCOSE, QUAL Negative Negative 04/24/2023 3:02 PM CDT [facility] URINE KETONES Negative Negative 04/24/2023 3:02 PM CDT [facility] UROBILINOGEN Normal Normal mg/dL 04/24/2023 3:02 PM CDT [facility] URINE BLOOD 250 /uL(A) Negative josefa/ul 04/24/2023 3:02 PM CDT [facility] URINALYSIS COLOR Yellow 04/24/20 23 3:02 PM CDT [facility] URINALYSIS CLARITY Very Cloudy 04/24/2023 3:02 PM CDT [facility] WBC (Urine) 51-150(A) Negative, 0-5 /hpf 04/24/2023 3:02 PM CDT [facility] URINE RBC'S 51-150(A) Negative, 0-2 /hpf 04/24/2023 3:02 PM CDT [facility] EPITHELIAL CELLS Moderate amount /lpf 04/24/2023 3:02 PM CDT [facility] BACTERIA, URINE Many(A) Negative /hpf 04/24/2023 3:02 PM CDT [facility] CRYSTALS Amorphous urates 04/24/2023 3:02 PM CDT [facility] Urine Non-Phlebotomy Collection / Unknown 04/24/2023 12:54 PM CDT 04/24/2023 2:33 PM CDT Victoriano Reid MD URINE ORDERABLES Final Result [facility] #[address] [place] [address] documented in this encounter Visit Diagnoses Diagnosis Personal history of urinary (tract) infections documented in this encounter Additional Health Concerns Assessment Noted Time PHQ-9 Depression Total Score: 0 08/15/20 21 10:00 AM CDT documented as of this encounter Care Teams Seo Associate Relationship Specialty Start Date End Date Victoriano Reid MD PCP - General Family Medicine 06/19/19 06/29/24 Elva Olivares DO 2 [facility]. [address] [place] [address] PCP - General Family Medicine 07/01/24 Malissa Joe, RN [place] Nurse Technical Services Analyst 12/03/23 12/03/23 Malissa Joe, RN [place] Nurse Technical Services Analyst 12/05/23 12/05/23 [place] LSW [place] Leadite Man Technical Services Analyst 11/03/24 Cabrera Yadav MD #2 [facility] [address] [place] [address] Consulting Physician Urology 11/07/24 Viktoriya Arias LSW [place] Leadite Man Technical Services Analyst 04/22/25 documented as of this encounter
--- OUTSIDE RECORDS SUMMARY | 2025-05-09 18:50 | XMS_ITS | Encounter Summary ---
Author Organization [facility] Address [address] [place] [address] Phone Care Team Providers Care Licensed Chemical Spray Technician Name Role Phone Victoriano Reid MD Primary Care Provider [phone] Malissa Joe RN Unavailable Unavailable Malissa Joe RN Unavailable Unavailable Elva Olivares DO Primary Care Provider [phone] [place] METALLURGICAL TESTER Unavailable UnaCabrera Nevarez MD Unavailable [phone] Viktoriya Arias METALLURGICAL TESTER Unavailable Unavailab le Encounter Details Date Type Department Care Team (Late st Contact Info) Description 10/17/2022 [facility] [address] [place] [id number] Victoriano Reid MD [address] [place] [address] Social History Tobacco Use Types Packs/Day Years [...] Coronavirus/COVID-19? No / Unsure 09/19/2022 9:13 AM EXPORT TRAFFIC DEPARTMENT MANAGER documented as of this encounter Plan of Treatment Upcoming Encounters Date Type Department Care Team (Latest Contact Info) Description 05/12/2025 1:30 PM CDT Clinical Support [facility] #2 [place] [address] Nurse Plato Urology 06/02/2025 12:10 PM CDT Hospital Encounter [facility] Periop [address] [place] [address] Cabrera Yadav MD #[address] [address] 06/02/2025 12:10 PM CDT - 06/02/2025 2:40 PM CDT [facility] [address] [place] [address] Cabrera Yadav MD #[address] [address] CYSTOSCOPY AND LITHOLAPAXY, PATIENT WILL NEED A PAUL LIFT Scheduled Procedures Name Priority Associated Diagnoses Date/Ti me CYSTOSCOPY BLADDER STONE BLADDER STONES 06/02/2025 12:10 PM CDT documented as of this encounter Procedures Procedure Name Priority Date/Time Associated Diagnosis Comments VITAMIN D, 25 HYDROXY TOTAL Routine 10/17/2022 11:44 AM EXPORT TRAFFIC DEPARTMENT MANAGER HEMOGLOBIN A1C W/ ESTIMATED GLUCOSE Routine 10/17/2022 11:44 AM EXPORT TRAFFIC DEPARTMENT MANAGER CBC WITH AUTO DIFFERENTIAL Routine 10/17/2022 11:44 AM EXPORT TRAFFIC DEPARTMENT MANAGER VITAMIN B12 Routine 10/17/2022 11:44 AM EXPORT TRAFFIC DEPARTMENT MANAGER UR MICROALBUMIN/CREATINI NE RATIO RANDOM Routine 10/17/2022 11:44 AM EXPORT TRAFFIC DEPARTMENT MANAGER THYROXINE (T4) TOTAL Routine 10/17/2022 11:44 AM EXPORT TRAFFIC DEPARTMENT MANAGER THYROID STIMULATING HORMONE (TSH) Routine 10/17/2022 11:44 AM EXPORT TRAFFIC DEPARTMENT MANAGER LIPID PANEL Routine 10/17/2022 11:44 AM EXPORT TRAFFIC DEPARTMENT MANAGER CMP (COMPREHENSIVE METABOLIC PANEL) Routine 10/17/2022 11:44 AM EXPORT TRAFFIC DEPARTMENT MANAGER COMPLETE BLOOD COUNT (CBC) WITH DIFF Routine 10/17/2022 11:44 AM EXPORT TRAFFIC DEPARTMENT MANAGER documented in this encounter Results * (ABNORMAL) CBC WITH AUTO DIFFERENTIAL (10/17/2022 11:44 AM EXPORT TRAFFIC DEPARTMENT MANAGER) WBC 9.55 4.00 - 12.00 10(3)/mcL 10/17/2022 1:35 PM EXPORT TRAFFIC DEPARTMENT MANAGER [facility] RBC 4.47 3.80 - 5.30 10(6)/mcL 10/17/2022 1:35 PM EXPORT TRAFFIC DEPARTMENT MANAGER [facility] HEMOGLOBIN (HGB) 15.0 12.0 - 15.8 g/dL 10/17/2022 1:35 PM EXPORT TRAFFIC DEPARTMENT MANAGER [facility] HEMATOCRIT (HCT) 45.0 36.0 - 47.0 % 10/17/2022 1:35 PM EXPORT TRAFFIC DEPARTMENT MANAGER [facility] MCV 100.7(H) 82.0 - 96.0 fL 10/17/2022 1:35 PM EXPORT TRAFFIC DEPARTMENT MANAGER [facility] MCH 33.6 26.0 - 34.0 pg 10/17/2022 1:35 PM EXPORT TRAFFIC DEPARTMENT MANAGER [facility] MCHC 33.3 31.0 - 36.0 g/dL 10/17/2022 1:35 PM [facility] PLATELET COUNT 164 140 - 440 10(3)/[facility] 10/17/2022 1:35 PM [facility] RDW 14.3 11.8 - 15.5 % 10/17/2022 1:35 PM [facility] MPV 11.9 9.7 - 12.4 fL 10/17/2022 1:35 PM [facility] NEUTROPHILS 51.6 47.0 - 73.0 % 10/17/2022 1:35 PM [facility] LYMPHOCYTES 37.1 18.0 - 42.0 % 10/17/2022 1:35 PM [facility] MONOCYTES 6.8 4.0 - 12.0 % 10/17/2022 1:35 PM [facility] EOSINOPHILS 3.5 0.0 - 5.0 % 10/17/2022 1:35 PM [facility] BASOPHILS 1.0 0.0 - 1.0 % 10/17/2022 1:35 PM [facility] ABSOLUTE NEUTROPHILS 4.93 1.60 - 7.70 10(3)/[facility] 10/17/2022 1:35 PM [facility] ABSOLUTE LYMPHOCYTES 3.54(H) 1.30 - 3.20 10(3)/[facility] 10/17/2022 1:35 PM [facility] ABSOLUTE MONOCYTES 0.65 0.20 - 1.00 10(3)/[facility] 10/17/2022 1:35 PM [facility] ABSOLUTE EOSINOPHIL 0.33 0.00 - 0.40 10(3)/[facility] 10/17/2022 1:35 PM [facility] ABSOLUTE BASOPHILS 0.10 0.00 - 0.10 10(3)/[facility] 10/17/2022 1:35 PM [facility] NRBC PER 100 WBC 0 10/17/19 1:35 PM [facility] Blood No Phlebotomy Charged / Unknown 10/17/2022 11:44 AM EXPORT TRAFFIC DEPARTMENT MANAGER 10/17/2022 1:31 PM EXPORT TRAFFIC DEPARTMENT MANAGER us Victoriano Reid MD HEMATOLOGY ORDERABLES Final Resu lt Performing Organization Address City/[facility] Co de Phone Number [facility] [address] [place] [address] * UR MICROALBUMIN/CREATININE RATIO RANDOM (10/17/2022 11:44 AM EXPORT TRAFFIC DEPARTMENT MANAGER) RAN UR MICROALBUMIN <=1.20 <=2.00 mg/dL 10/17/2022 2:35 PM EXPORT TRAFFIC DEPARTMENT MANAGER [facility] CREATININE URINE 63.5 28.0 - 217.0 mg/dL 10/17/2022 2:35 PM EXPORT TRAFFIC DEPARTMENT MANAGER [facility] ALB/CREAT RATIO 2:35 PM EXPORT TRAFFIC DEPARTMENT MANAGER [facility] Comment:Unable to calculate Urine Non-Phlebotomy Collection / Unknown 10/17/2022 11:44 AM EXPORT TRAFFIC DEPARTMENT MANAGER 10/17/2022 1:31 PM EXPORT TRAFFIC DEPARTMENT MANAGER us Victoriano Reid MD URINE ORDERABLES Final Result Performing Organization Address [facility] Co de Phone Number [facility] [address] [place] [address] * THYROID STIMULATING HORMONE (TSH) (10/17/2022 11:44 AM EXPORT TRAFFIC DEPARTMENT MANAGER) Pathologist [facility] TSH 2.760 0.270 - 4.200 mIU/L 10/17/2022 2:33 PM EXPORT TRAFFIC DEPARTMENT MANAGER [facility] Blood No Phlebotomy Charged / Unknown 10/17/2022 11:44 AM EXPORT TRAFFIC DEPARTMENT MANAGER 10/17/2022 1:31 PM EXPORT TRAFFIC DEPARTMENT MANAGER us Victoriano Reid MD CHEMISTRY ORDERABLES Final Resul t Performing Organization Address City/[facility] Co de Phone Number [facility] [address] [place] [address] * (ABNORMAL) HEMOGLOBIN A1C W/ ESTIMATED GLUCOSE (10/17/2022 11:44 AM EXPORT TRAFFIC DEPARTMENT MANAGER) HGB-A1C 6.3(H) 4.0 - 6.0 % 10/17/2022 2:17 PM EXPORT TRAFFIC DEPARTMENT MANAGER [facility] Est Average Glucose 134.1 mg/dL 10/17/2022 2:17 PM EXPORT TRAFFIC DEPARTMENT MANAGER [facility] Blood No Phlebotomy Charged / Unknown 10/17/2022 11:44 AM EXPORT TRAFFIC DEPARTMENT MANAGER 10/17/2022 1:31 PM EXPORT TRAFFIC DEPARTMENT MANAGER Narrative [facility] - 10/17/2022 2:17 PM EXPORT TRAFFIC DEPARTMENT MANAGER HEMOGLOBIN A1C: DIABETIC PATIENTS: WELL-CONTROLLED: 6.2 - 7.0 INTERMEDIATE WELL-CONTROLLED: 7.0 - 9.0 POORLY-CONTROLLED: >9.0 Victoriano Reid MD CHEMISTRY ORDERABLES Final Resul t Performing Organization Address City/[facility]/ZIP Co de Phone Number [facility] [address] [place] [address] * THYROXINE (T4) TOTAL (10/17/2022 11:44 AM EXPORT TRAFFIC DEPARTMENT MANAGER) Pathologist [facility] T4 9.2 4.5 - 12.0 mcg/dL 10/17/2022 2:33 PM EXPORT TRAFFIC DEPARTMENT MANAGER [facility] Blood No Phlebotomy Charged / Unknown 10/17/2022 11:44 AM EXPORT TRAFFIC DEPARTMENT MANAGER 10/17/2022 1:31 PM EXPORT TRAFFIC DEPARTMENT MANAGER Victoriano Reid MD CHEMISTRY ORDERABLES Final Resul t [facility] [address] [place] [address] * VITAMIN D, 25 HYDROXY TOTAL (10/17/2022 11:44 AM EXPORT TRAFFIC DEPARTMENT MANAGER) Pathologist [facility] VITAMIN D, 25 HYDROX 67 >=30 ng/mL 10/17/2022 2:35 PM EXPORT TRAFFIC DEPARTMENT MANAGER [facility] Blood No Phlebotomy Charged / Unknown 10/17/2022 11:44 AM EXPORT TRAFFIC DEPARTMENT MANAGER 10/17/2022 1:31 PM EXPORT TRAFFIC DEPARTMENT MANAGER Narrative [facility] - 10/17/2022 2:35 PM EXPORT TRAFFIC DEPARTMENT MANAGER Published reference ranges for Vitamin D vary depending on time and place and method of testing, and on patient's age, sex, ethnicity and levels of other measured analytes such as parathormone, calcium and phosphorus. The result should be evaluated in conjunction with clinical findings and suspicions. [place] [employer] and [employer] Clinical Practice Guidelines: Status Vitamin D levels (ng/mL) Deficient <=20 At risk of inadequacy 21-29 Sufficient 30-100 Centers of Disease Control and Prevention Guidelines: Status Vitamin D levels (ng/mL) Deficient <13 At risk of inadequacy 13-19 Sufficient 20-50 Possibly harmful >50 References: [employer], 2010 Dietary reference intakes for calcium and vitamin D. [place]: The National Academies Press. Nkechi M, Jasmin N, Nicholas TOLEDO, et al., Evaluation, treatment, and prevention of Vitamin D deficiency: an Endocrinology Clinical Practice Guideline. JCEM 2011 96: 7 4955-5121. Lawson A, Josue C, Glo D, et al., Vitamin D Status: [place], , [facility] data brief, no. 59, MD [place]: National Center for Health Statistics. 2011. Victoriano Reid MD CHEMISTRY ORDERABLES Final Resul t [facility] [address] [place] [address] * VITAMIN B12 (10/17/2022 11:44 AM EXPORT TRAFFIC DEPARTMENT MANAGER) VITAMIN B12 383 243 - 894 pg/mL 10/17/2022 2:34 PM EXPORT TRAFFIC DEPARTMENT MANAGER [facility] Blood No Phlebotomy Charged / Unknown 10/17/2022 11:44 AM EXPORT TRAFFIC DEPARTMENT MANAGER 10/17/2022 1:31 PM EXPORT TRAFFIC DEPARTMENT MANAGER Victoriano Reid MD CHEMISTRY ORDERABLES Final Resul t Performing Organization Address [facility] Co de Phone Number [facility] [address] [place] [address] * LIPID PANEL (10/17/2022 11:44 AM EXPORT TRAFFIC DEPARTMENT MANAGER) CHOLESTEROL 150 <=200 mg/dL 10/17/2022 2:33 PM EXPORT TRAFFIC DEPARTMENT MANAGER [facility] TRIGLYCERIDES 114 <150 mg/dL 10/17/2022 2:33 PM EXPORT TRAFFIC DEPARTMENT MANAGER [facility] HDL CHOLESTEROL 40.5 >40 mg/dL 2:33 PM EXPORT TRAFFIC DEPARTMENT MANAGER [facility] LDL 87 5 - 130 mg/dL 10/17/2022 2:33 PM EXPORT TRAFFIC DEPARTMENT MANAGER [facility] VLDL 23 5 - 55 mg/dL 10/17/2022 2:33 PM EXPORT TRAFFIC DEPARTMENT MANAGER [facility] CHOL/HDL RATIO 3.7 0.0 - 4.4 10/17/2022 2:33 PM EXPORT TRAFFIC DEPARTMENT MANAGER [facility] NON-HDL CHOLESTEROL 109.5 <130 mg/dL 10/17/2022 2:33 PM EXPORT TRAFFIC DEPARTMENT MANAGER [facility] Blood No Phlebotomy Charged / Unknown 10/17/2022 11:44 AM EXPORT TRAFFIC DEPARTMENT MANAGER 10/17/2022 1:31 PM EXPORT TRAFFIC DEPARTMENT MANAGER Victoriano Reid MD CHEMISTRY ORDERABLES Final Resul t Performing Organization Address City/[facility]/ZIP Co de Phone Number [facility] [address] [place] [address] * (ABNORMAL) CMP (COMPREHENSIVE METABOLIC PANEL) (10/17/2022 11:44 AM EXPORT TRAFFIC DEPARTMENT MANAGER) SODIUM 140 136 - 144 mmol/L 10/17/2022 2:33 PM EXPORT TRAFFIC DEPARTMENT MANAGER [facility] POTASSIUM 4.3 3.5 - 5.1 mmol/L 10/17/2022 2:33 PM EXPORT TRAFFIC DEPARTMENT MANAGER [facility] CHLORIDE 104 100 - 110 mmol/L 10/17/2022 2:33 PM EXPORT TRAFFIC DEPARTMENT MANAGER [facility] CO2, VENOUS 25 22 - 32 mmol/L 10/17/2022 2:33 PM [facility] ANION GAP 15.3 8.0 - 20.0 mmol/L 10/17/2022 2:33 PM [facility] GLUCOSE 137(H) 70 - 99 mg/dL 10/17/2022 2:33 PM [facility] BUN 17 8 - 23 mg/dL 10/17/2022 2:33 PM [facility] CREATININE, BLOOD 0.77 0.60 - 1.10 mg/dL 10/17/2022 2:33 PM [facility] BUN/CREATININE RATIO 22(H) 12 - 20 ratio 10/17/2022 2:33 PM [facility] TOTAL PROTEIN 6.9 6.0 - 8.3 g/dL 10/17/2022 2:33 PM [facility] ALBUMIN 4.0 3.5 - 5.2 g/dL 10/17/2022 2:33 PM [facility] Comment: The colormetric methods used for the determination of Albumin may lead to falsely elevated test results in patients suffering from renal failure or insufficiency due to interference with other proteins. A/G RATIO 1.4 1.0 - 2.0 10/17/2022 2:33 PM [facility] CALCIUM 9.8 8.9 - 10.3 mg/dL 10/17/2022 2:33 PM [facility] T BILI <0.3 <=1.2 mg/dL 10/17/2022 2:33 PM [facility] SGOT (AST) 13 <=32 U/L 10/17/2022 2:33 PM [facility] SGPT (ALT) 9 <=41 U/L 10/17/2022 2:33 PM [facility] ALKALINE PHOSPHATASE 82 35 - 105 U/L 10/17/2022 2:33 PM [facility] GFR, ESTIMATED >60 >=60 10/17/2022 2:33 PM EXPORT TRAFFIC DEPARTMENT MANAGER [facility] Comment: Creatinine Clearance is the preferred criteria for selecting drug dose adjustments in renally impaired patients. The GFR is provided as additional pertinent clinical information. GFR is reported in mL/min/1.73 sq m. Calculation based on the Chronic Kidney Disease Epidemiology Collaboration (CKD- EPI) equation refit without adjustment for race. GFR, EST. >60 >=60 023 2:33 PM EXPORT TRAFFIC DEPARTMENT MANAGER [facility] GFR, EST. NONAFRICAN >60 >=60 10/17/2022 2:33 PM EXPORT TRAFFIC DEPARTMENT MANAGER [facility] Blood No Phlebotomy Charged / Unknown 10/17/2022 11:44 AM EXPORT TRAFFIC DEPARTMENT MANAGER 10/17/2022 1:31 PM EXPORT TRAFFIC DEPARTMENT MANAGER us Victoriano Reid MD CHEMISTRY ORDERABLES Final Resul t [facility] [address] [place] [address] documented in this encounter Visit Diagnoses Not on filedocumented in this encounter Additional Health Concerns Assessment Noted Time PHQ-9 Depression Total Score: 0 08/15/20 21 10:00 AM CDT documented as of this encounter Care Teams Licensed Chemical Spray Technician Relationship Specialty Start Date End Date Victoriano Reid MD PCP - General Family Medicine 06/19/19 06/29/24 Elva Olivares DO [address] [address] PCP - General Family Medicine 07/01/24 Malissa Joe, RN [place] Nurse Sugar Controller 12/03/23 12/03/23 Malissa Joe RN [place] Nurse Sugar Controller 12/05/23 12/05/23 [place], METALLURGICAL TESTER [place] Collar Tailor Sugar Controller 11/03/24 Cabrera Yadav MD [address] [address] [place] [address] Consulting Physician Urology 11/07/24 Viktoriya Arias LSW [place] Collar Tailor Sugar Controller 04/22/25 documented as of this encounter
--- OUTSIDE RECORDS SUMMARY | 2025-05-09 18:50 | XMS_ITS | Referral Summary ---
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 -TTE shows grade 1 diastolic dysfunction and normal LVEF - starting [facility] inpatient today Assessment & Plan (03/11/2019 [...] diastolic dysfunction and normal LVEF - starting [facility] inpatient tomorrow Vitamin D deficiency 03/03/2019 [...] certainly need placement for aggressive PT/OT. [place]. - No weight bearing restrictions, [...] certainly need placement for aggressive PT/OT. [place]. - No weight bearing restrictions, [...] certainly need placement for aggressive PT/OT. [place]. - No weight bearing restrictions, [...] certainly need placement for aggressive PT/OT. [place]. - No weight bearing restrictions, [...] today, please call Janice Adams NP at [phone]. If after hours, please contact the Diabetes Fellow at [phone]. Assessment & Plan (03/14/2019 10:32 AM CDT): [...] today, please call Crista Montgomery NP at [phone]. If after hours, please contact the Diabetes Fellow at [phone]. Assessment & Plan (03/12/2019 10:31 AM CDT): [...] today, please call Janice Adams NP at [phone]. If after hours, please contact the Diabetes Fellow at [phone]. Assessment & Plan (03/05/2019 6:21 PM CDT): [...] after the previous Dexamethasone wears off -monitor [facility] Patient has been seen by CDE. Tentative [...] were discussed with the primary team. Call [phone] with questions on day of service only. If after hours or weekends, please contact the Diabetes Fellow at [phone], option #1 Assessment & Plan (02/28/2019 12:17 [...] were discussed with the primary team. Call [phone] with questions on day of service only. If after hours or weekends, please contact the Diabetes Fellow at [phone], option #1 Assessment & Plan (02/26/2019 4:31 [...] today, please call Crista Montgomery NP at [phone]. If after hours, please contact the Diabetes Fellow at [phone]. Assessment & Plan (02/24/2019 10:05 AM CDT): -New diagnosis. A1c 8.9 -LDSSI. DM educator c/s, engraved roller inspector -Monitor BG with decadron Resolved Problems Problem [...] Comments Blood Pressure 111/76 09/03/2019 12:16 PM FIRE APPARATUS SPRINKLER INSPECTOR Pulse 81 09/03/2019 12:16 PM FIRE APPARATUS SPRINKLER INSPECTOR Temperature 36.4 C (97.5 F) 09/03/2019 12:16 PM FIRE APPARATUS SPRINKLER INSPECTOR Respiratory Rate 16 09/03/2019 12:1 6 PM FIRE APPARATUS SPRINKLER INSPECTOR Oxygen Saturation 100% 09/03/2019 12: 16 PM FIRE APPARATUS SPRINKLER INSPECTOR Inhaled Oxygen Concentration - - Weight 79.8 kg (176 lb) 09/03/2019 12:1 6 PM FIRE APPARATUS SPRINKLER INSPECTOR weight -verbal per patient Height 165.1 cm (5' 5) 09/03/2019 12:1 6 PM FIRE APPARATUS SPRINKLER INSPECTOR Body Mass Index 29.29 09/03/2019 12:16 PM FIRE APPARATUS SPRINKLER INSPECTOR Plan of Treatment Not on file Medical Devices Implanted Type Area Safety Sitter Device Identifier Shelf Expiration Date Model / Serial / Lot Depuy Spine [id number] 5.5mm 1 Inner Spine Screw Set Titanium Nonsterile Viper - [id number] Implanted:Qty: 8 on 02/24/2019 by Edelmira Pimentel MD at [facility] Screw N/A: Spine Lumbar Depuy Spine [id number] / / Depuy Synthes Spine [id number] Viper Prime Od5 Mm L45 Mm Fix Polyaxial Fenestrate Extend Tab Spine Cortical Screw Bone Nonsterile 5.5 Mm Dav - [id number] Implanted:Qty: 2 on 02/24/2019 by Edelmira Pimentel MD at [facility] Screw N/A: Spine Lumbar Depuy Synthes Spine [id number] / / Depuy Synthes Spine [id number] Viper Prime Od6 Mm L40 Mm Fix Polyaxial Fenestrate Extend Tab Spine Cortical Screw Bone Nonsterile 5.5 Mm Dav - [id number] Implanted:Qty: 2 on 02/24/2019 by Edelmira Pimentel MD at [facility] Screw N/A: Spine Lumbar Depuy Synthes Spine [id number] / / Depuy Synthes Spine [id number] Viper Prime Od6 Mm L45 Mm Fix Polyaxial Fenestrate Extend Tab Spine Cortical Screw Bone Nonsterile 5.5 Mm Dav - [id number] Implanted:Qty: 4 on 02/24/2019 by Edelmira Pimentel MD at [facility] N/A: Spine Lumbar Depuy Synthes Spine [id number] / / Ti Mis Depuy Viper Kypho Dav Implanted:Qty: 2 on 02/24/2019 by Edelmira Pimentel MD at [facility] N/A: Spine Lumbar Depuy Spine [id number] / / [employer] [id number] Xcela 8fr 1.6mm 1 Lumen Power Injectable Attach Catheter Fill - [id number] Implanted:Qty: 1 on 04/29/2019 at [facility] Ang[employer] Dynamics 02/17/2024 [id number] / / [id number] Insurance [facility] Advance Directives For more information, please contact: [phone] Documents on File Type Date Recorded Patient Real Estate Processor Expl anation ADVANCE DIRECTIVE 05/03/2019 1:58 PM POWER OF CARDING UTILITY TENDER-MEDICAL ADVANCE DIRECTIVE 05/02/2019 5:43 AM POWER OF CARDING UTILITY TENDER-MEDICAL ADVANCE DIRECTIVE 04/30/2019 3:45 PM ADVANCE DIRECTIVE 04/27/2019 1:33 PM POWER OF CARDING UTILITY TENDER-MEDICAL * Full Code (Latest Code Status on [...] 9:21 PM 03/14/2019 6:56 PM Care Teams Conservation Policy Analyst Relationship Specialty Start Date End Date Victoriano Reid MD PCP - General Family Medicine 06/20/19 Rashaun Peoples MD [address] [place] [address] Medical Oncologist/Strawhat Sizer Medical Oncology 08/07/19 Edelmira Pimentel MD [address] [place] [address] Surgeon Orthopedic Surgery 09/01/19
--- OUTSIDE RECORDS SUMMARY | 2025-05-09 18:50 | XMS_ITS | Encounter Summary ---
Author Organization [facility] Address [address] [place] [address] Phone Care Team Providers Care Drive Tester Name Role Phone Victoriano Reid MD Primary Care Provider [phone] Malissa Joe RN Unavailable Unavailable Malissa Joe RN Unavailable Unavailable Elva Olivares DO Primary Care Provider [phone] [place] ED SPECIAL EDUCATION TEACHER Unavailable UnaCabrera Nevarez MD Unavailable [phone] Viktoriya Arias ED SPECIAL EDUCATION TEACHER Unavailable Unavailab le Encounter Details Date Type Department Care Team (Late st Contact Info) Description 01/24/2023 [facility] 1 [place] [address] Victoriano Reid MD #1 [place] [address] Urinary tract infection, site not specified Social [...] Description 05/12/2025 1:30 PM CDT Clinical Support [facility] #2 [place] [address] Nurse [place] [facility] 06/02/2025 12:10 PM CDT Hospital Encounter [facility] Periop 1 [place] [address] Cabrera Yadav MD #[address] [address] 06/02/2025 12:10 PM CDT - 06/02/2025 2:40 PM CDT Surgery [facility] Periop 1 [place] [address] Cabrera Yadav MD #[address] [address] CYSTOSCOPY AND LITHOLAPAXY, PATIENT WILL NEED A [...] RESULTS CITROBACTER AMALONATICUS 01/27/2023 10:26 AM CDT [facility] CULTURE RESULTS GRAM-NEGATIVE BACILLUS 01/27/2023 10:26 AM CDT [facility] Comment:NO FURTHER WORKUP PE RFORMED [...] MICROBIOLOGY - GENERAL ORDERABLE S Final Result [facility] [address] [place] [address], * (ABNORMAL) URINALYSIS REFLEX IF INDICATED BY ABNORMAL RESULTS (01/24/2023 1:55 PM CDT) SPECIFIC GRAVITY 1.010 1.003 - 1.030 01/24/2023 3:08 PM CDT [facility] URINE PH 7.0 5.0 - 9.0 01/24/2023 3:08 PM CDT [facility] WBC ESTERASE 500 /uL(A) Negative 01/24/2023 3:08 PM CDT [facility] NITRITE Negative Negative 01/24/2023 3:08 PM CDT [facility] PROTEIN, RANDOM URINE 30 mg/dL(A) Negative 01/24/2023 3:08 PM CDT [facility] URINE GLUCOSE, QUAL Negative Negative 01/24/2023 3:08 PM CDT [facility] URINE KETONES Negative Negative 01/24/2023 3:08 PM CDT [facility] UROBILINOGEN Normal Normal mg/dL 01/24/2023 3:08 PM CDT [facility] URINE BLOOD 250 /uL(A) Negative josefa/ul 01/24/2023 3:08 PM CDT [facility] URINALYSIS COLOR Sabina 01/25/20 3:08 PM CDT [facility] URINALYSIS CLARITY Slightly Cloudy 01/24/2023 3:08 PM CDT [facility] WBC (Urine) Packed(A) Negative, 0-5 /hpf 01/24/2023 3:08 PM CDT [facility] URINE RBC'S 11-20(A) Negative, 0-2 /hpf 01/24/2023 3:08 PM CDT [facility] EPITHELIAL CELLS Small amount /lpf 2022 3:08 PM CDT [facility] BACTERIA, URINE Moderate(A) Negative /hpf 01/24/2023 3:08 PM CDT [facility] Urine Non-Phlebotomy Collection / Unknown 01/24/2023 1:55 PM CDT 01/24/2023 2:43 PM CDT us Victoriano Reid MD URINE ORDERABLES Final Result [facility] #[address] [place] [address] documented in this encounter Visit Diagnoses Diagnosis Urinary tract infection, site not specified documented in this encounter Additional Health Concerns Assessment Noted Time PHQ-9 Depression Total Score: 0 08/15/20 21 10:00 AM CDT documented as of this encounter Care Teams Drive Tester Relationship Specialty Start Date End Date Victoriano Reid MD PCP - General Family Medicine 06/19/19 06/29/24 Elva Olivares DO 2 [facility] [address] [place] [address] PCP - General Family Medicine 07/01/24 Malissa Joe, RN [place] Nurse Oiler And Greaser 12/03/23 12/03/23 Malissa Joe RN [place] Nurse Oiler And Greaser 12/05/23 12/05/23 [place] LSW [place] Dip Unit Operator Oiler And Greaser 11/03/24 Cabrera Yadav MD #2 [facility] [address] [place] [address] Consulting Physician Urology 11/07/24 Viktoriya Arias LSW [place] Dip Unit Operator Oiler And Greaser 04/22/25 documented as of this encounter
--- OUTSIDE RECORDS SUMMARY | 2025-05-09 18:50 | XMS_ITS | Encounter Summary ---
Author Organization [facility] Address [address] [facility] [place] [address] Phone Care Team Providers Care Real Estate Economist Name Role Phone Victoriano Reid MD Primary Care Provider [phone] Malissa Joe RN Unavailable Unavailable Malissa Joe RN Unavailable Unavailable Elav Olivares DO Primary Care Provider [phone] [place] APPOINTMENT SCHEDULER Unavailable UnaCabrera Nevarez MD Unavailable [phone] Viktoriya Arias APPOINTMENT SCHEDULER Unavailable Unavailab le Encounter Details Date Type Department Care Team (Late st Contact Info) Description 10/04/2021 [facility] 1 [place] [id number] Victoriano Reid MD #1 [place] [address] Urinary tract infection, site not specified Social History Tobacco Use Types Packs/Day Years Used Date Smoking Tobacco: Every Day Cigarettes Smokeless Tobacco: Never Alcohol Use Standard Drinks/Week Comments Not Currently 0 (1 standard drink = 0.6 oz pur e alcohol) PHQ-2 Answer Date Recorded Total Score - Questions 1-9 0 /10/2020 Education Answer Date Recorded What is the [...] Description 05/12/2025 1:30 PM CDT Clinical Support [facility]OLOGY #2 [place] [address] NurseKen Urology 06/02/2025 12:10 PM CDT [facility] 1 [place] [address] Cabrera Yadav MD #[address] [address] 06/02/2025 12:10 PM CDT - 06/02/2025 2:40 PM CDT [facility] 1 [place] [address] Cabrera Yadav MD #[address] [address] CYSTOSCOPY AND LITHOLAPAXY, PATIENT WILL NEED A PAUL LIFT Scheduled Procedures Name Priority Associated Diagnoses Date/Ti me CYSTOSCOPY BLADDER STONE BLADDER STONES 06/02/2025 12:10 PM CDT documented as of this encounter Procedures Procedure Name Priority Date/Time Associated Diagnosis Comments URINALYSIS REFLEX IF INDICATED BY ABNORMAL RESULTS Routine 10/04/2021 2:30 AM DINING ROOM HOSTESS Urinary tract infection, site not specified CULTURE, URINE Routine 10/04/2021 2:30 AM DINING ROOM HOSTESS Urinary tract infection, site not specified documented in this encounter Results * CULTURE, URINE (10/04/2021 2:30 AM DINING ROOM HOSTESS) CULTURE RESULTS MIXED GROWTH OF 3 OR MORE ORGANISMS, PROBABLE COLLECTION CONTAMINATION, SUGGEST REPEAT URINE CULTURE. 10/05/2021 6:24 PM DINING ROOM HOSTESS [facility] Urine Non-Phlebotomy Collection / Unknown 10/04/2021 2:30 AM DINING ROOM HOSTESS 10/04/2021 4:51 PM DINING ROOM HOSTESS us Victoriano Reid MD MICROBIOLOGY - GENERAL ORDERABLE S Final Result [facility] [address] [place] [address], [place] * (ABNORMAL) URINALYSIS REFLEX IF INDICATED BY ABNORMAL RESULTS (10/04/2021 2:30 AM DINING ROOM HOSTESS) Pathologist [facility] SPECIFIC GRAVITY 1.015 1.003 - 1.030 10/04/2021 5:[address] [facility] URINE PH 8.0 5.0 - 9.0 10/04/2021 5:[address] [facility] WBC ESTERASE 500 /uL(A) Negative 10/04/2021 5:[address] [facility] NITRITE Positive(A) Negative 10/04/2021 5:[address] [facility] PROTEIN, RANDOM URINE 100 mg/dL(A) Negative 10/04/2021 5:[address] [facility] URINE GLUCOSE, QUAL Negative Negative 10/04/2021 5:[address] [facility] URINE KETONES Negative Negative 10/04/2021 5:[address] [facility] UROBILINOGEN Normal Normal mg/dL 10/04/2021 5:[address] [facility] URINE BLOOD 250 /uL(A) Negative josefa/ul 10/04/2021 5:[address] [facility] URINALYSIS COLOR Yasmine 10/04/20 5:[address] [facility] URINALYSIS CLARITY Very Cloudy 10/04/2021 5:12 PM [facility] WBC (Urine) Packed(A) Negative, 0-5 /hpf 10/04/2021 5:12 PM DINING ROOM HOSTESS [facility] URINE RBC'S Packed(A) Negative, 0-2 /hpf 10/04/2021 5:12 PM DINING ROOM HOSTESS [facility] EPITHELIAL CELLS Small amount /lpf 2020 5:12 PM DINING ROOM HOSTESS [facility] BACTERIA, URINE Packed(A) Negative /hpf 10/04/2021 5:12 PM DINING ROOM HOSTESS [facility] Urine Non-Phlebotomy Collection / Unknown 10/04/2021 2:30 AM DINING ROOM HOSTESS 10/04/2021 4:51 PM DINING ROOM HOSTESS Victoriano Reid MD URINE ORDERABLES Final Result Performing Organization Address City/State/[facility] Co de Phone Number [facility] #1 [place] [address] documented in this encounter Visit Diagnoses Diagnosis Urinary tract infection, site not specified documented in this encounter Additional Health Concerns Assessment Noted Time PHQ-9 Depression Total Score: 0 08/15/20 10:00 AM CDT documented as of this encounter Care Teams Real Estate Economist Relationship Specialty Start Date End Date Victoriano Reid MD PCP - General Family Medicine 06/19/19 06/29/24 Elva Olivares DO [address] [address] PCP - General Family Medicine 07/01/24 Malissa Joe, RN [place] Nurse Director Camp 12/03/23 12/03/23 Malissa Joe, RN [place] Nurse Director [place] 12/05/23 12/05/23 [place] APPOINTMENT SCHEDULER [place] Sheet Tailer Director Camp 11/03/24 Cabrera Yadav MD #[address] [address] Consulting Physician Urology 11/07/24 Viktoriya Arias LSW [place] Sheet Tailer Director Camp 04/22/25 documented as of this encounter
--- OUTSIDE RECORDS SUMMARY | 2025-05-09 18:50 | XMS_ITS ---
Author Organization [facility] Address 1 [place] [address] Care Team Providers Care News Analyst Name Role Phone Victoriano Reid MD Primary Care Provider [phone] Rashaun Peoples MD Unavailable [phone] Edelmira Pimentel MD Unavailable [phone] Active Problems Problem Noted Date Diagnosed [...] and [facility]ux[facility] today and will discharge [...] diastolic dysfunction and normal LVEF - starting [facility] inpatient tomorrow Vitamin D deficiency [...] Discharge plans for acute inpatient rehab at [facility]. - No weight bearing restrictions, but [...] Discharge plans for acute inpatient rehab at [facility]. - No weight bearing restrictions, but [...] certainly need placement for aggressive PT/OT. Insurance ([place]) pending. - No weight bearing restrictions, [...] certainly need placement for aggressive PT/OT. [place] pending. - No weight bearing restrictions, [...] certainly need placement for aggressive PT/OT. Insurance ([place]) pending. - No weight bearing restrictions, [...] today, please call Janice Adams NP at [phone]. If after hours, please contact the Diabetes Fellow at [phone]. Assessment & Plan (03/14/2019 10:32 AM CDT): [...] today, please call Crista Montgomery NP at [phone]. If after hours, please contact the Diabetes Fellow at [phone]. Assessment & Plan (03/12/2019 10:31 AM CDT): [...] today, please call Janice Adams NP at [phone]. If after hours, please contact the Diabetes Fellow at [phone]. Assessment & Plan (03/05/2019 6:21 PM CDT): [...] were discussed with the primary team. Call [phone] with questions on day of service only. If after hours or weekends, please contact the Diabetes Fellow at [phone], option #1 Assessment & Plan (02/28/2019 12:17 [...] were discussed with the primary team. Call [phone] with questions on day of service only. If after hours or weekends, please contact the Diabetes Fellow at [phone], option #1 Assessment & Plan (02/26/2019 4:31 [...] today, please call Crista Montgomery NP at [phone]. If after hours, please contact the Diabetes Fellow at [phone]. Assessment & Plan (02/24/2019 10:05 AM CDT): -New diagnosis. A1c 8.9 -LDSSI. DM educator c/s, head of science -Monitor BG with decadron Current Treatment and [...] of 6 cycles started Oncology Supportive Care Therapy Plan Plan Name Start Date Discontinue Date Treatment [...] -TTE (04/16) with EF 74%, mild TR, WA; G1DD, normal RV size and function. -if [...]
--- OUTSIDE RECORDS SUMMARY | 2025-05-09 18:50 | XMS_ITS | Encounter Summary ---
Author Organization [facility] Address [address] [facility] [place] [address] Phone Care Team Providers Care Dairy Nutrition Consultant Name Role Phone Victoriano Reid MD Primary Care Provider [phone] Malissa Joe RN Unavailable Unavailable Malissa Joe RN Unavailable Unavailable Elva Olivares DO Primary Care Provider [phone] [place] OUTPATIENT FACILITY PHYSICAL THERAPIST Unavailable UnaCabrera Nevarez MD Unavailable [phone] Viktoriya Arias OUTPATIENT FACILITY PHYSICAL THERAPIST Unavailable Unavailab le Encounter Details Date Type Department Care Team (Late st Contact Info) Description 11/23/2021 [facility] 1 [place] [phone] Victoriano Reid MD #1 [place] [address] Social History Tobacco Use Types Packs/Day Years [...] Description 05/12/2025 1:30 PM CDT Clinical Support [facility] UR[facility]Y #2 [place] [address] Nurse [place] Urology 06/02/2025 12:10 PM CDT Hospital [facility] 1 [place] [address] Cabrera Yadav MD #[address] [address] 06/02/2025 12:10 PM CDT - 06/02/2025 2:40 PM CDT [facility] 1 [place] [address] Cabrera Yadav MD #[address] [address] CYSTOSCOPY AND LITHOLAPAXY, PATIENT WILL NEED A PAUL LIFT Scheduled Procedures Name Priority Associated Diagnoses Date/Ti dc CYSTOSCOPY BLADDER STONE BLADDER STONES 06/02/2025 12:10 PM CDT documented as of this encounter Visit Diagnoses Not on filedocumented in this encounter Additional Health Concerns Assessment Noted Time PHQ-9 Depression Total Score: 0 08/15/20 21 10:00 AM CDT documented as of this encounter Care Teams Dairy Nutrition Consultant Relationship Specialty Start Date End Date Victoriano Reid MD PCP - General Family Medicine 06/19/19 06/29/24 Elva Olivares DO [address] [facility]. [address] [place] [address] PCP - General Family Medicine 07/01/24 Malissa Joe, RN [place] Nurse Coke Crusher Operator 12/03/23 12/03/23 Malissa Joe RN [place] Nurse Coke Crusher Operator 12/05/23 12/05/23 [place], OUTPATIENT FACILITY PHYSICAL THERAPIST [place] Yard Jockey Coke Crusher Operator 11/03/24 Cabrrea Yadav MD #2 [facility] [address] [place] [address] Consulting Physician Urology 11/07/24 Viktoriya Arias, [place] Yard Jockey Coke Crusher Operator 04/22/25 documented as of this encounter
--- OUTSIDE RECORDS SUMMARY | 2025-05-09 18:50 | XMS_ITS | Encounter Summary ---
Author Organization [facility] Address [address] [place] [address] Phone Care Team Providers Care Food And Drink Factory Workers Name Role Phone Victoriano Reid MD Primary Care Provider [phone] Malissa Joe RN Unavailable Unavailable Malissa Joe RN Unavailable Unavailable Elva Olivares DO Primary Care Provider [phone] [place] SURGICAL SERVICES TECH Unavailable Cabrera Smallwood MD Unavailable [phone] Viktoriya Arias SURGICAL SERVICES TECH Unavailable Unavailab le Reason for Visit * Reason Comments Medication Refill Encounter Details Date Type Department Care Team (Late st Contact Info) Description 11/05/2021 Refill [facility] Medical Group - [facility] #2 [place] [phone] Victoriano Reid MD #1 [place] [address] Medication Refill Social History Tobacco Use Types [...] 11/07/2021 8:53 AM CST ergocalciferol (VITAMIN D) [address]494 UNIT Capsule 12 Capsule 3 08/15/2021 Sig - Route: Take 1 Capsule by mouth once a week. On Sunday - Oral Sent to pharmacy as: Ergocalciferol 1.25 MG (04969 UT) Oral Capsule (VITAMIN D) Class: E Prescribe E-Prescribing Status: Receipt confirmed by pharmacy (08/15/2021 ??1:57 PM CDT) Order Questions ?? ergocalciferol (VITAMIN D) [address]4899 UNIT Capsule [[id number]] Status: Active Ordering user: Victoriano Reid MD 08/15/211356 Authorized by: Victoriano Reid MD Frequency: Weekly 08/15/21 - Until Discontinued Diagnoses Vitamin D deficiency [E55.9] Associated Diagnoses Vitamin D deficiency Pharmacy [id number] [place] [address] [facility] [address] Refills on file ESTATE INVESTOR documented in this encounter Plan of Treatment Upcoming Encounters Date Type Department Care Team (Latest Contact Info) Description 05/12/2025 1:30 PM CDT Clinical Support [facility] UROLOGY #2 [place] [address] NurseKen Urology 06/02/2025 12:10 PM CDT [facility] Periop 1 [place] [address] Cabrera Yadav MD #2 [facility] [address] [place] [address] 06/02/2025 12:10 PM CDT - 06/02/2025 2:40 PM CDT [facility] 1 [place] [address] Cabrera Yadav MD #2 [facility] [address] [place] [address] CYSTOSCOPY AND LITHOLAPAXY, PATIENT WILL NEED A PAUL LIFT Scheduled Procedures Name Priority Associated Diagnoses Date/Ti pr CYSTOSCOPY BLADDER STONE BLADDER STONES 06/02/2025 12:10 PM CDT documented as of this encounter Visit Diagnoses Diagnosis Vitamin D deficiency Unspecified vitamin D deficiency documented in this encounter Additional Health Concerns Assessment Noted Time PHQ-9 Depression Total Score: 0 08/15/20 21 10:00 AM CDT documented as of this encounter Care Teams Food And Drink Factory Workers Relationship Specialty Start Date End Date Victoriano Reid MD PCP - General Family Medicine 06/19/19 06/29/24 Elva Olivares DO 2 [facility] [address] [place] [address] PCP - General Family Medicine 07/01/24 Malissa Joe, RN [place] Nurse Stripper Soft Plastic 12/03/23 12/03/23 Malissa Joe, RN [place] Nurse Stripper Soft Plastic 12/05/23 12/05/23 [place], SURGICAL SERVICES TECH [place] Trimmer And Reinforcer Stripper Soft Plastic 11/03/24 Cabrera Yadav MD #2 [facility] [address] [place] [address] Consulting Physician Urology 11/07/24 Viktoriya Arias LSW [place] Trimmer And Reinforcer Stripper Soft Plastic 04/22/25 documented as of this encounter
--- OUTSIDE RECORDS SUMMARY | 2025-05-09 18:50 | XMS_ITS | Encounter Summary ---
Author Organization [facility] Address [address] [place] [address] Phone Care Team Providers Care Assembler Fishing Floats Name Role Phone Victoriano Reid MD Primary Care Provider [phone] Malissa Joe RN Unavailable Unavailable Malissa Joe RN Unavailable Unavailable Elva Olivares DO Primary Care Provider [phone] [place] COFFEE SOMMELIER Unavailable Cabrera Smallwood MD Unavailable [phone] Viktoriya Arias COFFEE SOMMELIER Unavailable Unavailab le Reason for Visit * Reason Comments Medication Refill Encounter Details Date Type Department Care Team (Late st Contact Info) Description 09/05/2021 Refill [facility] Medical Group - Family Medicine - [place] #2 [place] [phone] Singh Myrick, SENIOR SYSTEM OPERATOR, DRIFT MINER #[address] [address] Medication Refill Social History Tobacco Use Types [...] [facility] 02/14/21 Telemedicine Victoriano Reid MD [facility] Showing recent visits within past 365 days and meeting all other requirements Future Appointments No visits were found meeting these conditions. Showing future appointments within next 90 days and meeting all other requirements INES TECHNICIAN documented in this encounter Plan of Treatment Upcoming Encounters Date Type Department Care Team (Latest Contact Info) Description 05/12/2025 1:30 PM CDT Clinical Support [facility] UROLOGY #2 [place] [address] NurseKen Urology 06/02/2025 12:10 PM CDT Hospital Encounter [facility] Periop 1 [place] [address] Cabrera Yadav MD #2 [facility] [address] [place] [address] 06/02/2025 12:10 PM CDT - 06/02/2025 2:40 PM CDT Surgery [facility] Periop 1 [facility] [place] [address] Cabrera Yadav MD #2 [facility] [address] [place] [address] CYSTOSCOPY AND LITHOLAPAXY, PATIENT WILL NEED A PAUL LIFT Scheduled Procedures Name Priority Associated Diagnoses Date/Ti il CYSTOSCOPY BLADDER STONE BLADDER STONES 06/02/2025 12:10 PM CDT documented as of this encounter Visit Diagnoses Not on filedocumented in this encounter Additional Health Concerns Assessment Noted Time PHQ-9 Depression Total Score: 0 08/15/20 10:00 AM CDT documented as of this encounter Care Teams Assembler Fishing Floats Relationship Specialty Start Date End Date Victoriano Reid MD PCP - General Family Medicine 06/19/19 06/29/24 Elva Olivares DO 2 [facility] [address] [place] [address] PCP - General Family Medicine 07/01/24 Malissa Joe, RN [place] Nurse Cupola Worker 12/03/23 12/03/23 Malissa Joe, RN [place] Nurse Cupola Worker 12/05/23 12/05/23 [place], COFFEE SOMMELIER [place] Lunchroom Attendant Cupola Worker 11/03/24 Cabrera Yadav MD [address] [address] Consulting Physician Urology 11/07/24 Viktoriya Arias LSW [place] Lunchroom Attendant Cupola Worker 04/22/25 documented as of this encounter
--- OUTSIDE RECORDS SUMMARY | 2025-05-09 18:50 | XMS_ITS | Encounter Summary ---
Author Organization [facility] Address [address] [place] [address] Phone Care Team Providers Care Bacteriologist Medical Name Role Phone Victoriano Reid MD Primary Care Provider [phone] Malissa Joe RN Unavailable Unavailable Malissa Joe RN Unavailable Unavailable Elva Olivares DO Primary Care Provider [phone] [place] LAST REPAIRER Unavailable Cabrera Smallwood MD Unavailable [phone] Viktoriya Arias LAST REPAIRER Unavailable Unavailab le Reason for Visit * Reason Comments Medication Refill Encounter Details Date Type Department Care Team (Late st Contact Info) Description 08/31/2021 Refill [facility] - Family Medicine [facility] [address] [place] [address] Sathish Loomis MD #[address] [address] Medication Refill Social History Tobacco Use Types [...] Questions ?? 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, C79.51] Associated Diagnoses 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) [id number] - [place] [address] [address] documented in this encounter Plan of Treatment Upcoming Encounters Date Type Department Care Team (Latest Contact Info) Description 05/12/2025 1:30 PM CDT Clinical Support [facility] [address] [place] [address] NurseKen Urology 06/02/2025 12:10 PM CDT [facility] 1 [facility] [place] [address] Cabrera Yadav MD #2 [facility] [address] [place] [address] 06/02/2025 12:10 PM CDT - 06/02/2025 2:40 PM CDT [facility] 1 [place] [address] Cabrera Yadav MD [address] [address] CYSTOSCOPY AND LITHOLAPAXY, PATIENT WILL NEED A [...] documented as of this encounter Care Teams Bacteriologist Medical Relationship Specialty Start Date End Date Victoriano Reid MD PCP - General Family Medicine 06/19/19 06/29/24 Elva Olivares DO 2 [facility] [address] [place] [address] PCP - General Family Medicine 07/01/24 Malissa Joe, DONYA [place] Nurse Mixer Helper 12/03/23 12/03/23 Malissa Joe RN [place] Nurse Mixer Helper 12/05/23 12/05/23 H[place] LSW [place] Electrical Integrator Mixer Helper 11/03/24 Cabrera Yadav MD #[address] [address] Consulting Physician Urology 11/07/24 Viktoriya Arias LSW [place] Electrical Integrator Mixer Helper 04/22/25 documented as of this encounter
--- OUTSIDE RECORDS SUMMARY | 2025-05-09 18:50 | XMS_ITS | Encounter Summary ---
Author Organization [facility] Address [address] [place] [address] Phone Care Team Providers Care Citizen Participation Specialist Name Role Phone Victoriano Reid MD Primary Care Provider [phone] Malissa Joe RN Unavailable Unavailable Malissa Joe RN Unavailable Unavailable Elva Olivares DO Primary Care Provider [phone] [place] AUTO WINDER Unavailable UnaCabrera Nevarez MD Unavailable [phone] Viktoriya Arias AUTO WINDER Unavailable Unavailab le Encounter Details Date Type Department Care Team (Late st Contact Info) Description 01/02/2022 Home Health Resumpti on of Care Planning [facility] [address] [place] [address] Social History Tobacco Use Types Packs/Day Years [...] [facility] #[address] [place] [address] Nurse [place] Urology 06/02/2025 12:10 PM CDT [facility] 1 [place] [address] Cabrera Yadav MD #[address] [address] 06/02/2025 12:10 PM CDT - 06/02/2025 2:40 PM CDT [facility] 1 [place] [address] Cabrera Yadav MD #[address] [address] CYSTOSCOPY AND LITHOLAPAXY, PATIENT WILL NEED A PAUL LIFT Scheduled Procedures Name Priority Associated Diagnoses Date/Ti sc CYSTOSCOPY BLADDER STONE BLADDER STONES 06/02/2025 12:10 PM CDT documented as of this encounter Visit Diagnoses Not on filedocumented in this encounter Additional Health Concerns Assessment Noted Time PHQ-9 Depression Total Score: 0 08/15/20 21 10:00 AM CDT documented as of this encounter Care Teams Citizen Participation Specialist Relationship Specialty Start Date End Date Victoriano Reid MD PCP - General Family Medicine 06/19/19 06/29/24 Elva Olivares DO 2 [facility] [address] [place] [address] PCP - General Family Medicine 07/01/24 Malissa Joe, RN [place] Nurse Drum Tender 12/03/23 12/03/23 Malissa Joe, RN [place] Nurse Drum Tender 12/05/23 12/05/23 [place], AUTO WINDER [place] Test Inspection Engineer Drum Tender 11/03/24 Cabrera Yadav MD #2 [facility] [address] [place] [address] Consulting Physician Urology 11/07/24 Viktoriya Arias, [place] Test Inspection Engineer Drum Tender 04/22/25 documented as of this encounter
--- OUTSIDE RECORDS SUMMARY | 2025-05-09 18:50 | XMS_ITS | Encounter Summary ---
Author Organization [facility] Address [address] [place] [address] Phone Care Team Providers Care Crisis Therapist Name Role Phone Victoriano Reid MD Primary Care Provider [phone] Malissa Joe RN Unavailable Unavailable Malissa Joe RN Unavailable Unavailable Elva Olivares DO Primary Care Provider [phone] [place] ELECTRONIC SPECIALIST Unavailable Cabrera Smallwood MD Unavailable [phone] Viktoriya Arias ELECTRONIC SPECIALIST Unavailable Unavailab le Reason for Visit * Reason Comments Medication Refill Encounter Details Date Type Department Care Team (Late st Contact Info) Description 09/21/2023 Refill [facility] - Family Medicine [facility] #2 [place] [id number] Victoriano Reid MD #1 [place] [address] Medication Refill Social History Tobacco Use Types [...] encounter Miscellaneous Notes * Telephone Encounter - MurtazaTiffanieashvin Pena RN - 09/21/2023 1:44 PM CST Medication [...] Dept 03/29/23 Office Visit [facility] [place] [facility] [place] [place] Showing recent visits within past 365 days and meeting all other requirements Future Appointments Date Type Provider Dept 10/01/23 Appointment Victoriano Reid MD [facility] [place] [place] Showing future appointments within next 90 days and meeting all other requirements S AND PARKING [employer]S SWEEPER OPERATOR documented in this encounter Plan of Treatment Upcoming Encounters Date Type Department Care Team (Latest Contact Info) Description 05/12/2025 1:30 PM CDT Clinical Support [facility] #2 [place] [address] NurseKen Urology 06/02/2025 12:10 PM CDT [facility] 1 [place] [address] Cabrera Yadav MD #[address] [address] 06/02/2025 12:10 PM CDT - 06/02/2025 2:40 PM CDT [facility] 1 [place] [address] Cabrera Yadav MD #[address] [address] CYSTOSCOPY AND LITHOLAPAXY, PATIENT WILL NEED A [...] documented as of this encounter Care Teams Crisis Therapist Relationship Specialty Start Date End Date Victoriano Reid MD PCP - General Family Medicine 06/19/19 06/29/24 Elva Olivares DO 2 [facility] [address] [place] [address] PCP - General Family Medicine 07/01/24 Malissa Joe, RN [place] Nurse Rounder And Backer 12/03/23 12/03/23 Malissa Joe RN [place] Nurse Rounder And Backer 12/05/23 12/05/23 Hinton LSW PA Director Hris Rounder And Backer 11/03/24 Cabrera Yadav MD #2 [facility] [address] [place] [address] Consulting Physician Urology 11/07/24 Viktoriya Arias LSW PA Director Hris Rounder And Backer 04/22/25 documented as of this encounter
--- OUTSIDE RECORDS SUMMARY | 2025-05-09 18:50 | XMS_ITS | Encounter Summary ---
Author Organization [facility] Address [address] [facility] [place] [address] Phone Care Team Providers Care Ivory Carver Name Role Phone Victoriano Reid MD Primary Care Provider [phone] Malissa Joe RN Unavailable Unavailable Malissa Joe RN Unavailable Unavailable Elva Olivares DO Primary Care Provider [phone] [place] BUNCH BREAKER MACHINE OPERATOR Unavailable UnaCabrera Nevarez MD Unavailable [phone] Viktoriya Arias BUNCH BREAKER MACHINE OPERATOR Unavailable Unavailab le Encounter Details Date Type Department Care Team (Late st Contact Info) Description 08/31/2023 [facility] 1 [place] [phone] Victoriano Reid MD #1 [place] [address] Urinary tract infection, site not specified Social [...] [facility] #2 [place] [address] NurseKen Urology 06/02/2025 12:10 PM CDT Hospital [facility] [address] [place] [address] Cabrera Yadav MD #[address] [address] 06/02/2025 12:10 PM CDT - 06/02/2025 2:40 PM CDT [facility] [address] [place] [address] Cabrera Yadav MD #[address] [address] CYSTOSCOPY AND LITHOLAPAXY, PATIENT WILL NEED A PAUL LIFT Scheduled Procedures Name Priority Associated Diagnoses Date/Ti me CYSTOSCOPY BLADDER STONE BLADDER STONES 06/02/2025 12:10 PM CDT documented as of this encounter Procedures Procedure Name Priority Date/Time Associated Diagnosis Comments URINALYSIS REFLEX IF INDICATED BY ABNORMAL RESULTS Routine 08/31/2023 12:00 PM UROGYNAECOLOGIST Urinary tract infection, site not specified CULTURE, URINE Routine 08/31/2023 12:00 PM UROGYNAECOLOGIST Urinary tract infection, site not specified documented in this encounter Results * CULTURE, URINE (08/31/2023 12:00 PM UROGYNAECOLOGIST) CULTURE RESULTS ENTEROCOCCUS FAECALIS 09/02/2023 6:17 PM UROGYNAECOLOGIST [facility] Urine Non-Phlebotomy Collection / Unknown 08/31/2023 12:00 PM UROGYNAECOLOGIST 08/31/2023 1:39 PM UROGYNAECOLOGIST Narrative [facility] - 09/02/2023 6:17 PM UROGYNAECOLOGIST Susceptibility not performed on enterococcus species. Due to high achievable concentrations in urine, Ampicillin is the drug of choice for treating infections limited to the lower urinary tract (regardless of Vancomycin susceptibility). For allergic patients, Nitrofurantoin or a quinolone may be substituted. us Victoriano Reid MD MICROBIOLOGY - GENERAL ORDERABLE S Final Result [facility] [address] [place] [address], [place] * (ABNORMAL) URINALYSIS REFLEX IF INDICATED BY ABNORMAL RESULTS (08/31/2023 12:00 PM UROGYNAECOLOGIST) Pathologist [facility] SPECIFIC GRAVITY 1.005 1.003 - 1.030 08/31/2023 2:27 PM UROGYNAECOLOGIST [facility] URINE PH 7.0 5.0 - 9.0 08/31/2023 2:27 PM [facility] WBC ESTERASE 500 /uL(A) Negative 08/31/2023 2:27 PM [facility] NITRITE Negative Negative 08/31/2023 2:27 PM [facility] PROTEIN, RANDOM URINE 30 mg/dL(A) Negative 08/31/2023 2:27 PM [facility] URINE GLUCOSE, QUAL Negative Negative 08/31/2023 2:27 PM [facility] URINE KETONES Negative Negative 08/31/2023 2:27 PM [facility] UROBILINOGEN Normal Normal mg/dL 08/31/2023 2:27 PM [facility] URINE BLOOD 250 /uL(A) Negative josefa/ul 08/31/2023 2:27 PM [facility] URINALYSIS COLOR Yellow 08/31/2023 2:27 PM UROGYNAECOLOGIST [facility] URINALYSIS CLARITY Slightly Cloudy 08/31/2023 2:27 PM UROGYNAECOLOGIST [facility] WBC (Urine) 6-10(A) Negative, 0-5 /hpf 08/31/2023 2:27 PM UROGYNAECOLOGIST [facility] URINE RBC'S 3-5(A) Negative, 0-2 /hpf 08/31/2023 2:27 PM UROGYNAECOLOGIST [facility] EPITHELIAL CELLS Occasional /lpf 08/31/2023 2:27 PM UROGYNAECOLOGIST [facility] BACTERIA, URINE Few(A) Negative /hpf 08/31/2023 2:27 PM UROGYNAECOLOGIST [facility] Urine Non-Phlebotomy Collection / Unknown 08/31/2023 12:00 PM UROGYNAECOLOGIST 08/31/2023 1:39 PM UROGYNAECOLOGIST Victoriano Reid MD URINE ORDERABLES Final Result Performing Organization Address City/State/[facility] Co de Phone Number [facility] #1 [place] [address] documented in this encounter Visit Diagnoses Diagnosis Urinary tract infection, site not specified documented in this encounter Additional Health Concerns Assessment Noted Time PHQ-9 Depression Total Score: 0 08/15/20 21 10:00 AM CDT documented as of this encounter Care Teams Ivory Carver Relationship Specialty Start Date End Date Victoriano Reid MD PCP - General Family Medicine 06/19/19 06/29/24 Elva Olivares DO [address] [address] PCP - General Family Medicine 07/01/24 Malissa Joe RN [place] Nurse Manufacturing Supervisor 2Nd Shift 12/03/23 12/03/23 Malissa Joe RN [place] Nurse Manufacturing Supervisor 2Nd Shift 12/05/23 12/05/23 [place], BUNCH BREAKER MACHINE OPERATOR [place] Deposition Reporter Manufacturing Supervisor 2Nd Shift 11/03/24 Cabrera Yadav MD #2 [place] [id number] Consulting Physician Urology 11/07/24 Viktoriya Arias LSW [place] Deposition Reporter Manufacturing Supervisor 2Nd Shift 04/22/25 documented as of this encounter
--- OUTSIDE RECORDS SUMMARY | 2025-05-09 18:50 | XMS_ITS | Encounter Summary ---
Author Organization [facility] Address [address] [facility] [place] [address] Phone Care Team Providers Care Triple Drum Operator Name Role Phone Victoriano Reid MD Primary Care Provider [phone] Malissa Joe RN Unavailable Unavailable Malissa Joe RN Unavailable Unavailable Elva Olivares DO Primary Care Provider [phone] [place] GROUP HOME PARAPROFESSIONAL Unavailable UnaCabrera Nevarez MD Unavailable [phone] Viktoriya Arias GROUP HOME PARAPROFESSIONAL Unavailable Unavailab le Encounter Details Date Type Department Care Team (Late st Contact Info) Description 11/23/2021 [facility] 1 [place] [address] Victoriano Reid MD #1 [place] [address] Urinary tract infection, site not specified Social [...] Description 05/12/2025 1:30 PM CDT Clinical Support [facility] #2 [place] [address] Nurse Ken Urology 06/02/2025 12:10 PM CDT [facility] [address] [place] [address] Cabrera Yadav MD #[address] [address] 06/02/2025 12:10 PM CDT - 06/02/2025 2:40 PM CDT [facility] 1 [place] [address] Cabrera Yadav MD #[address] [address] CYSTOSCOPY AND LITHOLAPAXY, PATIENT WILL NEED A PAUL LIFT Scheduled Orders Name Type Priority Associated Diagnoses [...] documented as of this encounter Care Teams Triple Drum Operator Relationship Specialty Start Date End Date Victoriano Reid MD PCP - General Family Medicine 06/19/19 06/29/24 Elva Olivares DO 2 [facility] [address] [place] [address] PCP - General Family Medicine 07/01/24 Malissa Joe, RN [place] Nurse Orthotic/Prosthetic Practitioner 12/03/23 12/03/23 Malissa Joe RN [place] Nurse Orthotic/Prosthetic Practitioner 12/05/23 12/05/23 Hinton LSW [place] Rotary Driller Prospecting Orthotic/Prosthetic Practitioner 11/03/24 Cabrera Yadav MD #2 [facility] [address] [place] [address] Consulting Physician Urology 11/07/24 Viktoriya Arias, GROUP HOME PARAPROFESSIONAL [place] Rotary Driller Prospecting Orthotic/Prosthetic Practitioner 04/22/25 documented as of this encounter
--- OUTSIDE RECORDS SUMMARY | 2025-05-09 18:50 | XMS_ITS | Encounter Summary ---
Author Organization [facility] Address [address] [facility] [place] [address] Phone Care Team Providers Care Electrophysiologist Name Role Phone Victoriano Reid MD Primary Care Provider [phone] Malissa Joe RN Unavailable Unavailable Malissa Joe RN Unavailable Unavailable Elva Olivares DO Primary Care Provider [phone] H[place] BUNGHOLE BORER Unavailable UnaCabrera Nevarez MD Unavailable [phone] Viktoriya Arias BUNGHOLE BORER Unavailable Unavailab le Encounter Details Date Type Department Care Team (Late st Contact Info) Description 07/11/2023 [facility] 1 [place] [phone] Victoriano Reid MD #1 [place] [address] Personal history of urinary (tract) infections; Neuromuscular [...] Description 05/12/2025 1:30 PM CDT Clinical Support [facility] #2 [place] [address] NurseKen Urology 06/02/2025 12:10 PM CDT Hospital Encounter [facility] 1 [place] [address] Cabrera Yadav MD #[address] [address] 06/02/2025 12:10 PM CDT - 06/02/2025 2:40 PM CDT Surgery [facility] Periop 1 [facility] [place] [address] Cabrera Yadav MD #[address] [address] CYSTOSCOPY AND LITHOLAPAXY, PATIENT WILL NEED A [...] RESULTS [facility]RO[facility]ER AMALONATICUS 07/14/2023 4:17 PM CDT [facility] CULTURE RESULTS ENTEROCOCCUS FAECALIS 07/14/2023 4:17 PM CDT [facility] Culture No Phlebotomy Charged / Unknown 07/11/2023 11:30 AM CDT 07/11/2023 1:28 PM CDT Narrative [facility] - 07/14/2023 4:17 PM CDT [...] - GENERAL ORDERABLE S Final Result [facility] [address] [place] [address], documented in this encounter Visit Diagnoses Diagnosis Personal history of urinary (tract) infections Neuromuscular dysfunction of bladder, unspecified documented in this encounter Additional Health Concerns Assessment Noted Time PHQ-9 Depression Total Score: 0 08/15/20 21 10:00 AM CDT documented as of this encounter Care Teams Electrophysiologist Relationship Specialty Start Date End Date Victoriano Reid MD PCP - General Family Medicine 06/19/19 06/29/24 Elva Olivares DO 2 [facility]. [address] [place] [address] PCP - General Family Medicine 07/01/24 Malissa Joe, RN [place] Nurse Towerman 12/03/23 12/03/23 Malissa Joe RN [place] Nurse Towerman 12/05/23 12/05/23 Hinton LSW [place] Agricultural Technician Towerman 11/03/24 Cabrera Yadav MD #2 [facility] [address] [place] [address] Consulting Physician Urology 11/07/24 Viktoriya Arias, BUNGHOLE BORER [place] Agricultural Technician Towerman 04/22/25 documented as of this encounter
--- OUTSIDE RECORDS SUMMARY | 2025-05-09 18:50 | XMS_ITS | Encounter Summary ---
Author Organization [facility] Address [address] [place] [address] Phone Care Team Providers Care Armoring Machine Operator Name Role Phone Victoriano Reid MD Primary Care Provider [phone] Malissa Joe RN Unavailable Unavailable Malissa Joe RN Unavailable Unavailable Elva Olivares DO Primary Care Provider [phone] [place] WEBSPHERE DEVELOPER Unavailable UnaCabrera Nevarez MD Unavailable [phone] Viktoriya Arias WEBSPHERE DEVELOPER Unavailable Unavailab le Encounter Details Date Type Department Care Team (Late st Contact Info) Description 10/22/2020 Lab Requisition [facility] Services 1 [place] [id number] Victoriano Reid MD #1 [place] [address] Neuromuscular dysfunction of bladder, unspecified; Personal history [...] Description 05/12/2025 1:30 PM CDT Clinical Support [facility] #2 [place] [address] NurseKen Urology 06/02/2025 12:10 PM CDT Hospital Encounter [facility] Periop 1 [place] [address] Cabrera Yadav MD #2 [facility] [address] [place] [address] 06/02/2025 12:10 PM CDT - 06/02/2025 2:40 PM CDT Surgery [facility] Periop 1 [facility] [place] [address] Cabrera Yadav MD #2 [facility] [address] [place] [address] CYSTOSCOPY AND LITHOLAPAXY, PATIENT WILL NEED A PAUL LIFT Scheduled Procedures Name Priority Associated Diagnoses Date/Ti me CYSTOSCOPY BLADDER STONE BLADDER STONES 06/02/2025 12:10 PM CDT documented as of this encounter Procedures Procedure Name Priority Date/Time Associated Diagnosis Comments URINALYSIS REFLEX IF INDICATED BY ABNORMAL RESULTS Routine 10/22/2020 10:45 AM BURN OUT SCARFING OPERATOR Neuromuscular dysfunction of bladder, unspecified CULTURE, URINE Routine 10/22/2020 10:45 AM BURN OUT SCARFING OPERATOR Neuromuscular dysfunction of bladder, unspecified documented in this encounter Results * CULTURE, URINE (10/22/2020 10:45 AM BURN OUT SCARFING OPERATOR) CULTURE RESULTS ACINETOBACTER CALCOACETICUS-ACI NETOBACTER BAUMANNII COMPLEX 10/24/2020 7:06 PM BURN OUT SCARFING OPERATOR [facility] CULTURE RESULTS ALSO MIXED GROWTH OF DISTAL URETHRA CONTAMINANTS. 10/24/2020 7:06 PM BURN OUT SCARFING OPERATOR [facility] Urine Non-Phlebotomy Collection / Unknown 10/22/2020 10:45 AM BURN OUT SCARFING OPERATOR 10/22/2020 11:46 AM BURN OUT SCARFING OPERATOR Narrative Organism Antibiotic Method Susceptibility Acinetobacter [...] ORDERABLE S Final Result Performing Organization Address City/State/[facility] Co de Phone Number [facility] [address] [place] [address], * (ABNORMAL) URINALYSIS REFLEX IF INDICATED BY ABNORMAL RESULTS (10/22/2020 10:45 AM BURN OUT SCARFING OPERATOR) SPECIFIC GRAVITY 1.010 1.003 - 1.030 10/22/2020 1:18 PM BURN OUT SCARFING OPERATOR [facility] URINE PH 7.0 5.0 - 9.0 10/22/2020 1:18 PM BURN OUT SCARFING OPERATOR [facility] WBC ESTERASE 500 /uL(A) Negative 10/22/2020 1:18 PM BURN OUT SCARFING OPERATOR [facility] NITRITE Negative Negative 10/22/2020 1:18 PM BURN OUT SCARFING OPERATOR [facility] PROTEIN, RANDOM URINE 30 mg/dL(A) Negative 10/22/2020 1:18 PM BURN OUT SCARFING OPERATOR [facility] URINE GLUCOSE, QUAL Negative Negative 10/22/2020 1:18 PM BURN OUT SCARFING OPERATOR [facility] URINE KETONES Negative Negative 10/22/2020 1:18 PM BURN OUT SCARFING OPERATOR [facility] UROBILINOGEN Normal Normal mg/dL 10/22/2020 1:18 PM BURN OUT SCARFING OPERATOR [facility] URINE BILIRUBIN Negative Negative 1:18 PM BURN OUT SCARFING OPERATOR [facility] URINE BLOOD 150 /uL(A) Negative josefa/ul 10/22/2020 1:18 PM BURN OUT SCARFING OPERATOR [facility] URINALYSIS COLOR Yellow 10/22/2020 1:18 PM BURN OUT SCARFING OPERATOR [facility] URINALYSIS CLARITY Slightly Cloudy 10/22/2020 1:18 PM BURN OUT SCARFING OPERATOR [facility] WBC (Urine) 6-10(A) Negative, 0-5 /hpf 10/22/2020 1:18 PM BURN OUT SCARFING OPERATOR [facility] URINE RBC'S 3-5(A) Negative, 0-2 /hpf 10/22/2020 1:18 PM BURN OUT SCARFING OPERATOR [facility] EPITHELIAL CELLS Occasional /lpf 10/22/2020 1:18 PM [facility] BACTERIA, URINE Many(A) Negative /hpf 10/22/2020 1:18 PM [facility] CRYSTALS Triple phosphate 10/22/2020 1:18 PM [facility] Urine Non-Phlebotomy Collection / Unknown 10/22/2020 10:45 AM BURN OUT SCARFING OPERATOR 10/22/2020 11:46 AM BURN OUT SCARFING OPERATOR us Victoriano Reid MD URINE ORDERABLES Final Result [facility] #1 [place] [address] documented in this encounter Visit Diagnoses Diagnosis Neuromuscular dysfunction of bladder, unspecified Personal history of urinary (tract) infections documented in this encounter Additional Health Concerns Infection Onset Date Last Indicated Resolved Time 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 06/05/2019 04/15/2021 7:28 AM CDT Assessment Noted Time PHQ-9 Depression Total Score: 0 10/24/19 20 11:16 AM BURN OUT SCARFING OPERATOR documented as of this encounter Care Teams Armoring Machine Operator Relationship Specialty Start Date End Date Victoriano Reid MD PCP - General Family Medicine 06/19/19 06/29/24 Elva Olivares DO 2 [facility] [address] [place] [address] PCP - General Family Medicine 07/01/24 Malissa Joe, RN [place] Nurse Instructional Support Services Director 12/03/23 12/03/23 Malissa Joe, RN [place] Nurse Instructional Support Services Director 12/05/23 12/05/23 [place] [facility] School Transportation Supervisor Instructional Support Services Director 11/03/24 Cabrera Yadav MD #2 [facility] [address] [place] [address] Consulting Physician Urology 11/07/24 Viktoriya Arias LSW [place] School Transportation Supervisor Instructional Support Services Director 04/22/25 documented as of this encounter
--- OUTSIDE RECORDS SUMMARY | 2025-05-09 18:50 | XMS_ITS | Encounter Summary ---
Author Organization [facility] Address [address] [place] [address] Phone Care Team Providers Care Supervisor Cutting And Boning Name Role Phone Victoriano Reid MD Primary Care Provider [phone] Malissa Joe RN Unavailable Unavailable Malissa Joe RN Unavailable Unavailable Elva Olivares DO Primary Care Provider [phone] [place] ROLLING MACHINE OPERATOR AUTOMATIC Unavailable Cabrera Smallwood MD Unavailable [phone] Viktoriya Arias ROLLING MACHINE OPERATOR AUTOMATIC Unavailable Unavailab le Reason for Visit * Reason Comments Medication Refill Encounter Details Date Type Department Care Team (Late st Contact Info) Description 07/01/2023 Refill [facility] Medical Group - Family Medicine [facility] #2 [place] [id number] Victoriano Reid MD #1 [place] [address] Medication Refill Social History Tobacco Use Types [...] Dept 03/29/23 Office Visit Victoriano Reid MD [facility] Ken 09/19/22 Office Visit Victoriano Reid MD [facility] Showing recent visits within past 365 days and meeting all other requirements Future Appointments No visits were found meeting these conditions. Showing future appointments within next 90 days and meeting all other requirements documented in this encounter Plan of Treatment Upcoming Encounters Date Type Department Care Team (Latest Contact Info) Description 05/12/2025 1:30 PM CDT Clinical Support [facility] UROLOGY #2 [place] [address] Nurse, Ken Urology 06/02/2025 12:10 PM CDT Hospital Encounter [facility] Periop 1 [place] [address] Cabrera Yadav MD #[address] [address] 06/02/2025 12:10 PM CDT - 06/02/2025 2:40 PM CDT Surgery [facility] Periop 1 [facility] [place] [address] Cabrera Yadav MD #2 [facility] [address] [place] [address] CYSTOSCOPY AND LITHOLAPAXY, PATIENT WILL NEED A [...] as of this encounter Care Teams Supervisor Cutting And Boning Relationship Specialty Start Date End Date Victoriano Reid MD PCP - General Family Medicine 06/19/19 06/29/24 Elva Olivares DO 2 [facility] [address] [place] [address] PCP - General Family Medicine 07/01/24 Malissa Joe, DONYA [place] Nurse Emt P 12/03/23 12/03/23 Malissa Joe RN [place] Nurse Emt P 12/05/23 12/05/23 [place] LSW [place] Office Coordinator Receptionist Emt P 11/03/24 Cabrera Yadav MD #2 [facility] [address] [place] [address] Consulting Physician Urology 11/07/24 Viktoriya Arias LSW [place] Office Coordinator Receptionist Emt P 04/22/25 documented as of this encounter
--- OUTSIDE RECORDS SUMMARY | 2025-05-09 18:50 | XMS_ITS | Encounter Summary ---
Author Organization [facility] Address [address] [facility] [place] [address] Phone Care Team Providers Care Software Engineer Kernel Name Role Phone Victoriano Reid MD Primary Care Provider [phone] Malissa Joe RN Unavailable Unavailable Malissa Joe RN Unavailable Unavailable Elva Olivares DO Primary Care Provider [phone] [place] APPAREL SALES LEADER Unavailable UnaCabrera Nevarez MD Unavailable [phone] Viktoriya Arias APPAREL SALES LEADER Unavailable Unavailab le Encounter Details Date Type Department Care Team (Late st Contact Info) Description 05/22/2023 Lab Requisition [facility] Laboratory Services 1 [place] [phone] Victoriano Reid MD #1 [place] [address] Urinary tract infection, site not specified Social [...] Description 05/12/2025 1:30 PM CDT Clinical Support [facility] #2 [place] [address] NurseKen Urology 06/02/2025 12:10 PM CDT Hospital Encounter [facility] Periop 1 [place] [address] Cabrera Yadav MD #[address] [address] 06/02/2025 12:10 PM CDT - 06/02/2025 2:40 PM CDT Surgery [facility] Periop 1 [place] [address] Cabrera Yadav MD #[address] [address] CYSTOSCOPY AND LITHOLAPAXY, PATIENT WILL NEED A [...] RESULTS CITROBACTER AMALONATICUS 05/27/2023 3:22 PM CDT [facility] CULTURE RESULTS ALSO MIXED GROWTH OF DISTAL URETHRA CONTAMINANTS. 05/27/2023 3:22 PM CDT [facility] Urine Non-Phlebotomy Collection / Unknown 05/22/2023 [...] GENERAL ORDERABLE S Edited Result - Final [facility] [address] [place] [address], [place] * (ABNORMAL) URINALYSIS REFLEX IF INDICATED BY ABNORMAL RESULTS (05/22/2023 1:00 PM CDT) SPECIFIC GRAVITY 1.010 1.003 - 1.030 05/22/2023 2:36 PM CDT [facility] URINE PH 7.0 5.0 - 9.0 05/22/2023 2:36 PM CDT [facility] WBC ESTERASE 500 /uL(A) Negative 05/22/2023 2:36 PM CDT [facility] NITRITE Positive(A) Negative 05/22/2023 2:36 PM CDT [facility] PROTEIN, RANDOM URINE 30 mg/dL(A) Negative 05/22/2023 2:36 PM CDT [facility] URINE GLUCOSE, QUAL Negative Negative 05/22/2023 2:36 PM CDT [facility] URINE KETONES Negative Negative 05/22/2023 2:36 PM CDT [facility] UROBILINOGEN Normal Normal mg/dL 05/22/2023 2:36 PM CDT [facility] URINE BLOOD 250 /uL(A) Negative josefa/ul 05/22/2023 2:36 PM CDT [facility] URINALYSIS COLOR Yellow 05/22/2023 2:36 PM CDT [facility] URINALYSIS CLARITY Slightly Cloudy 05/22/2023 2:36 PM CDT [facility] WBC (Urine) 11-20(A) Negative, 0-5 /hpf 05/22/2023 2:36 PM CDT [facility] URINE RBC'S 51-150(A) Negative, 0-2 /hpf 05/22/2023 2:36 PM CDT [facility] EPITHELIAL CELLS Occasional /lpf 05/22/2023 2:36 PM CDT [facility] BACTERIA, URINE Packed(A) Negative /hpf 05/22/2023 2:36 PM CDT [facility] Urine Non-Phlebotomy Collection / Unknown 05/22/2023 1:00 PM CDT 05/22/2023 2:04 PM CDT Victoriano Reid MD URINE ORDERABLES Final Result [facility] #[address] [place] [address] documented in this encounter Visit Diagnoses Diagnosis Urinary tract infection, site not specified documented in this encounter Additional Health Concerns Assessment Noted Time PHQ-9 Depression Total Score: 0 08/15/20 21 10:00 AM CDT documented as of this encounter Care Teams Software Engineer Kernel Relationship Specialty Start Date End Date Victoriano Reid MD PCP - General Family Medicine 06/19/19 06/29/24 Elva Olivares DO 2 [facility] [address] [address] PCP - General Family Medicine 07/01/24 Malissa Joe, RN [place] Nurse Transportation Planning Technician 12/03/23 12/03/23 Malissa Joe, RN [place] Nurse Transportation Planning Technician 12/05/23 12/05/23 [place] LSW [place] Octave Board Racker Transportation Planning Technician 11/03/24 Cabrera Yadav MD #2 [facility] [address] Consulting Physician Urology 11/07/24 Viktoriya Arias LSW [place] Octave Board Racker Transportation Planning Technician 04/22/25 documented as of this encounter
--- OUTSIDE RECORDS SUMMARY | 2025-05-09 18:50 | XMS_ITS | Encounter Summary ---
Author Organization [facility] Address [address] [place] [address] Phone Care Team Providers Care Office Assistance Name Role Phone Victoriano Reid MD Primary Care Provider [phone] Malissa Joe RN Unavailable Unavailable Malissa Joe RN Unavailable Unavailable Elva Olivares DO Primary Care Provider [phone] Hinton CRTT Unavailable Cabrera Smallwood MD Unavailable [phone] Viktoriya Arias CRTT Unavailable Unavailab le Reason for Visit * Reason Comments Medication Refill Encounter Details Date Type Department Care Team (Late st Contact Info) Description 02/26/2022 Refill [facility] Medical Group - Family Medicine [facility] #2 [place] [phone] Victoriano Reid MD #1 [place] [address] Medication Refill Social History Tobacco Use Types [...] Dept 01/05/22 Office Visit Nia Abbott PAC [facility] Ken 08/15/21 Office Visit Victoriano Reid MD [facility] Showing recent visits within past 365 days and meeting all other requirements Future Appointments No visits were found meeting these conditions. Showing future appointments within next 90 days and meeting all other requirements documented in this encounter Plan of Treatment Upcoming Encounters Date Type Department Care Team (Latest Contact Info) Description 05/12/2025 1:30 PM CDT Clinical Support [facility] UROLOGY #2 [place] [address] Nurse, Ken Urology 06/02/2025 12:10 PM CDT Hospital Encounter [facility] Periop 1 [place] [address] Cabrera Yadav MD #2 [facility], [address] [address] 06/02/2025 12:10 PM CDT - 06/02/2025 2:40 PM CDT Surgery [facility] Periop [address] [place] [address] Cabrera Yadav MD #[address] [facility], [facility] [address] [place] [address] CYSTOSCOPY AND LITHOLAPAXY, PATIENT WILL NEED A [...] documented as of this encounter Care Teams Office Assistance Relationship Specialty Start Date End Date Victoriano Reid MD PCP - General Family Medicine 06/19/19 06/29/24 Elva Olivares DO 2 [facility]. [address] [place] [address] PCP - General Family Medicine 07/01/24 Malissa Joe, RN [place] Nurse Sample Steamer 12/03/23 12/03/23 Malissa Joe, RN [place] Nurse Sample Steamer 12/05/23 12/05/23 Hinton LSW [place] Pipe Straightener Sample Steamer 11/03/24 Cabrera Yadav MD #2 [facility] [address] [place] [address] Consulting Physician Urology 11/07/24 Viktoriya Arias LSW [place] Pipe Straightener Sample Steamer 04/22/25 documented as of this encounter
--- OUTSIDE RECORDS SUMMARY | 2025-05-09 18:50 | XMS_ITS | Encounter Summary ---
Author Organization [facility] Address [address] [place] [address] [facility] [place] [address] Phone Care Team Providers Care Hi Teacher Name Role Phone Elva Olivares DO Primary Care Provider [phone] Cabrera Yadav MD Unavailable [phone] Viktoriya Arias MANAGER ENVIRONMENTAL HEALTH AND SAFETY Unavailable Unavailab le Encounter Details Date Type Department Care Team (Late st Contact Info) Description 04/01/2025 [facility] 1 [place] [address] Cabrera Yadav MD #2 [facility] [address] [place] [address] Pre-op testing (Primary Dx) Social History Tobacco Use Types Packs/Day Years Used Date Smoking Tobacco: Every Day Cigarettes 2 51.6 Started: 1971 Smokeless Tobacco: Never Alcohol Use [...] often do you attend chur ch or sabianism services? Never 04/15/2024 Do you belong to [...] Total Score - Questions 1-9 0 12/14 [facility] Occupat ional Health - Occupational [...] the past 12 m [facility], were you homeless or living in [...] Description 05/12/2025 1:30 PM CDT Clinical Support [facility] UROLOGY #2 [place] [address] Nurse, Ken Urology 06/02/2025 12:10 PM CDT Hospital Encounter [facility] Periop [address] [place] [address] Cabrera Yadav MD #2 [facility], [facility] [address] [place] [address] 06/02/2025 12:10 PM CDT - 06/02/2025 2:40 PM CDT Surgery [facility] Periop [address] [place] [address] Cabrera Yadav MD #2 [facility] [address] [place] [address] CYSTOSCOPY AND LITHOLAPAXY, PATIENT WILL NEED A PAUL LIFT Scheduled Procedures Name Priority Associated Diagnoses Date/Ti me CYSTOSCOPY BLADDER STONE BLADDER STONES 06/02/2025 12:10 PM CDT documented as of this encounter Visit Diagnoses Diagnosis Pre-op testing- Primary Preoperative examination, unspecified documented in this encounter Additional Health Concerns Assessment Noted Time PHQ-9 Depression Total Score: 0 08/15/20 21 10:00 AM CDT documented as of this encounter Care Teams Hi Teacher Relationship Specialty Start Date End Date Elva Olivares DO [address] [address] PCP - General Family Medicine 07/01/24 Cabrera Yadav MD #[address] [address] Consulting Physician Urology 11/07/24 Viktoriya Arias LSW [place] Vice President Talent Management Civil Engineering Design Draftsperson 04/22/25 documented as of this encounter
--- OUTSIDE RECORDS SUMMARY | 2025-05-09 18:50 | XMS_ITS | Encounter Summary ---
Author Organization [facility] Address [address] [place] [address] Phone Care Team Providers Care Student Ministries Director Name Role Phone Victoriano Reid MD Primary Care Provider [phone] Elva Olivares DO Primary Care Provider [phone] [place] IMPORT COORDINATOR Unavailable UnaCabrera Nevarez MD Unavailable [phone] Viktoriya Arias IMPORT COORDINATOR Unavailable Unavailab le Reason for Visit * Reason Comments Medication Refill Encounter Details Date Type Department Care Team (Late st Contact Info) Description 12/20/2023 Refill [facility] Medical Group - Family Medicine [facility] #2 [place] [address] Victoriano Reid MD #1 [place] [address] Medication Refill Social History Tobacco Use Types Packs/Day Years Used Date Smoking Tobacco: Every Day Cigarettes Smokeless Tobacco: Never Alcohol Use Standard Drinks/Week Comments Not Currently 0 (1 standard drink = 0.6 oz pur e alcohol) [facility] Utilities Answer Date Recorded In the past 12 months has [employer] electric, gas, oil, or water company threatened [...] often do you attend chur ch or yarsani services? Never 12/20/2023 Do you belong to [...] Total Score - Questions 1-9 0 12/14 [facility] [place] - Occupational Stress Questionnaire Answer Date Recorded [...] in a custodial (including now)? No 12/20/2023 Education Answer Date [...] of Assessment Author 0 12/20/2023 11:52 AM BUILDING RENTAL SUPERINTENDENT Wick[employer], System Background * Q1: How often do you have a drink containing alcohol? Answer Date of Assessment Author Never 12/20/2023 11:52 AM BUILDING RENTAL SUPERINTENDENT Q-Layert, System Background * Q2: How many drinks containing alcohol do you have on a typical day when you are drinking? Answer Date of Assessment Author Patient does not drink 12/20/2023 11:52 AM BUILDING RENTAL SUPERINTENDENT LATTOhart, System Background * Q3: How often do you have six or more drinks on one occasion? Answer Date of Assessment Author Never 12/20/2023 11:52 AM BUILDING RENTAL SUPERINTENDENT Q-Layert, System Background documented as of this encounter Miscellaneous Notes * Telephone Encounter - Adelaida Medina RN - 12/20/2023 8:43 AM BUILDING RENTAL SUPERINTENDENT Medication failed the protocol, provider to review [...] Provider Dept 12/06/23 Telemedicine Victoriano Reid MD [facility] Ken 10/23/23 Telemedicine Miriam Prasad APRN, LORI [facility] 03/29/23 Office Visit Victoriano [facility] MD [facility] Showing recent visits within past 365 days and meeting all other requirements Future Appointments Date Type Provider Dept 12/21/23 Appointment Victoriano Reid MD [facility] Ken Showing future appointments within next 90 days and meeting all other requirements DING RENTAL SUPERINTENDENT documented in this encounter Plan of Treatment Upcoming Encounters Date Type Department Care Team (Latest Contact Info) Description 05/12/2025 1:30 PM CDT Clinical Support [facility] UROLOGY #2 [place] [address] Nurse, Ken Urology 06/02/2025 12:10 PM CDT [facility] Per[facility] 1 [place] [address] Cabrera Yadav MD #[address] [address] 06/02/2025 12:10 PM CDT - 06/02/2025 2:40 PM CDT Surgery [facility] Periop 1 [facility] [place] [place] [address] Cabrera Yadav MD #2 [facility] [address] [place] [address] CYSTOSCOPY AND LITHOLAPAXY, PATIENT WILL NEED A [...] as of this encounter Care Teams Student Ministries Director Relationship Specialty Start Date End Date Victoriano Reid MD PCP - General Family Medicine 06/19/19 06/29/24 Elva Olivares DO 2 [facility] [address] [place] [address] PCP - General Family Medicine 07/01/24 Hinton LSW [place] Gum Rolling Machine Tender Broom Machine Operator 11/03/24 Cabrera Yadav MD #2 [facility] [address] [place] [address] Consulting Physician Urology 11/07/24 Viktoriya Arias LSW [place] Gum Rolling Machine Tender Broom Machine Operator 04/22/25 documented as of this encounter
--- OUTSIDE RECORDS SUMMARY | 2025-05-09 18:50 | XMS_ITS | Encounter Summary ---
Author Organization [facility] Address [address] [place] [address] Phone Care Team Providers Care Field Project Manager Name Role Phone Victoriano Reid MD Primary Care Provider [phone] Malissa Joe RN Unavailable Unavailable Malissa Joe RN Unavailable Unavailable Elva Olivares DO Primary Care Provider [phone] [place] MANAGER CONSUMER Unavailable Cabrera Smallwood MD Unavailable [phone] Viktoriya Arias MANAGER CONSUMER Unavailable Unavailab le Reason for Visit * Reason Comments Medication Refill Encounter Details Date Type Department Care Team (Late st Contact Info) Description 08/07/2021 Refill [facility] Medical Group - Family Medicine [facility] [address] [place] [id number] Victoriano Reid MD #1 [place] [address] Medication Refill Social History Tobacco Use Types [...] Provider Dept 02/14/21 Telemedicine Victoriano Reid MD [facility] Ken Showing recent visits within past 365 days and meeting all other requirements Future Appointments Date Type Provider Dept 08/15/21 Appointment Victoriano Reid MD [facility] Ken Showing future appointments within next 90 days and meeting all other requirements documented in this encounter Plan of Treatment Upcoming Encounters Date Type Department Care Team (Latest Contact Info) Description 05/12/2025 1:30 PM CDT Clinical Support [facility] PHYSICIAN GROUP UROLOGY #2 [place] [address] NurseKen Urology 06/02/2025 12:10 PM CDT Hospital Encounter [facility] Periop [address] [place] [address] Cabrera Yadav MD #2 [facility], [address] [address] 06/02/2025 12:10 PM CDT - 06/02/2025 2:40 PM CDT Surgery [facility] Periop [address] [place] [address] Cabrera Yadav MD #[address] [facility], [facility] [address] [place] [address] CYSTOSCOPY AND LITHOLAPAXY, PATIENT WILL NEED A PAUL LIFT Scheduled Procedures Name Priority Associated Diagnoses Date/Ti me CYSTOSCOPY BLADDER STONE BLADDER STONES 06/02/2025 12:10 PM CDT documented as of this encounter Visit Diagnoses Not on filedocumented in this encounter Additional Health Concerns Assessment Noted Time PHQ-9 Depression Total Score: 0 10/24/19 11:16 AM PANTOGRAPHER documented as of this encounter Care Teams Field Project Manager Relationship Specialty Start Date End Date Victoriano Reid MD PCP - General Family Medicine 06/19/19 06/29/24 Elva Olivares DO 2 [facility] [address] [place] [address] PCP - General Family Medicine 07/01/24 Malissa Joe, DONYA [place] Nurse Restaurant Floor Manager 12/03/23 12/03/23 Malissa Joe RN [place] Nurse Restaurant Floor Manager 12/05/23 12/05/23 H[place] LSW [place] Employment Service Specialist Restaurant Floor Manager 11/03/24 Cabrera Yadav MD #[address] [facility] [address] [place] [address] Consulting Physician Urology 11/07/24 Viktoriya Arias LSW [place] Employment Service Specialist Restaurant Floor Manager 04/22/25 documented as of this encounter
--- OUTSIDE RECORDS SUMMARY | 2025-05-09 18:51 | XMS_ITS | Encounter Summary ---
Author Organization [facility] Address [address] [place] [address] Phone Care Team Providers Care Abrasive Coating Machine Operator Name Role Phone Victoriano Reid MD Primary Care Provider [phone] Malissa Joe RN Unavailable Unavailable Malissa Joe RN Unavailable Unavailable Elva Olivares DO Primary Care Provider [phone] [place] ACCOUNT AUDITOR Unavailable Cabrera Smallwood MD Unavailable [phone] Viktoriya Arias ACCOUNT AUDITOR Unavailable Unavailab le Reason for Visit * Reason Comments Medication Refill Encounter Details Date Type Department Care Team (Late st Contact Info) Description 06/08/2022 Refill [facility] Medical Group - Family Medicine [facility] #2 [place] [phone] Victoriano Reid MD #1 [place] [address] Medication Refill Social History Tobacco Use Types [...] [place] 08/15/21 Office Visit Victoriano Reid MD [facility] [...] 01/05/22 Office Visit Nia Abbott PAC [facility] 08/15/21 Office Visit Victoriano Reid MD [facility] Showing recent visits within past 365 days and meeting all other requirements Future Appointments No visits were found meeting these conditions. Showing future appointments within next 90 days and meeting all other requirements documented in this encounter Plan of Treatment Upcoming Encounters Date Type Department Care Team (Latest Contact Info) Description 05/12/2025 1:30 PM CDT Clinical Support [facility] PHYSICIAN GROUP UROLOGY #2 [place] [address] NurseKen Urology 06/02/2025 12:10 PM CDT Hospital Encounter [facility] Periop 1 [place] [address] Cabrera Yadav MD #2 [facility] [address] [place] [address] 06/02/2025 12:10 PM CDT - 06/02/2025 2:40 PM CDT [facility] 1 [place] [address] Cabrera Yadav MD #2 [facility] [address] [place] [address] CYSTOSCOPY AND LITHOLAPAXY, PATIENT WILL NEED A [...] documented as of this encounter Care Teams Abrasive Coating Machine Operator Relationship Specialty Start Date End Date Victoriano Reid MD PCP - General Family Medicine 06/19/19 06/29/24 Elva Olivares DO 2 [facility] [address] [place] [address] PCP - General Family Medicine 07/01/24 Malissa Joe, RN [place] Nurse Termination Clerk 12/03/23 12/03/23 Malissa Joe, RN [place] Nurse Termination Clerk 12/05/23 12/05/23 [place], ACCOUNT AUDITOR [place] Campus Safety Officer Termination Clerk 11/03/24 Cabrera Yadav MD #2 [facility] [address] [place] [address] Consulting Physician Urology 11/07/24 Viktoriya Arias, [place] Campus Safety Officer Termination Clerk 04/22/25 documented as of this encounter
--- OUTSIDE RECORDS SUMMARY | 2025-05-09 18:51 | XMS_ITS | Encounter Summary ---
Author Organization [facility] Address [address] [place] [address] Phone Care Team Providers Care Renewable Energy Project Manager Name Role Phone Victoriano Reid MD Primary Care Provider [phone] Malissa Joe RN Unavailable Unavailable Malissa Joe RN Unavailable Unavailable Elva Olivares DO Primary Care Provider [phone] [place] TUBER HELPER Unavailable Cabrera Smallwood MD Unavailable [phone] Viktoriya Arias TUBER HELPER Unavailable Unavailab le Reason for Visit * Reason Comments Medication Refill Encounter Details Date Type Department Care Team (Late st Contact Info) Description 10/02/2020 Refill [facility] Medical Group - Family Medicine [facility] #2 [place] [id number] Victoriano Reid MD #1 [place] [address] Medication Refill Social History Tobacco Use Types [...] Visits Recent Outpatient Visits 1 month ago [facility] Victoriano [place] MD 8 months ago Paralysis of both lower limbs (HCC) [facility] Victoriano [place] MD 11 months ago Uncontrolled type 2 diabetes mellitus with hyperglycemia (HCC) [facility] Victoriano [place]edo MD 1 year ago 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) [facility] Victoriano [place] MD 1 year ago Annual visit for general adult medical examination with abnormal findings [facility] Victoriano [place] MD Upcoming Appointments Future Appointments In 3 days Sharonda Carrion, FRANCIS [facility] In 1 week Naa Rios RN [facility] In 1 week Sharonda Carrion PTA [facility] In 2 weeks Sharonda Carrion, UNDERWRITING OPERATIONS MANAGER [facility] In 2 weeks Sharonda Carrion, UNDERWRITING OPERATIONS MANAGER [facility] In 3 weeks Naa Rios RN [facility] In 3 weeks Lorraine Russell, JIM [facility] In 3 weeks Sharonda Carrion, FRANCIS [facility] In 1 month Sharonda Carrion, FRANCIS [facility] In 1 month Sharonda Carrion PTA [facility] In 1 month Naa Rios RN [facility] In 1 month Sharonda Carrion, UNDERWRITING OPERATIONS MANAGER [facility] In 1 month Sharonda Carrion, UNDERWRITING OPERATIONS MANAGER [facility] In 1 month Lorraine Russell, PT [facility] In 1 month Lorraine Russell, PT [facility] In 1 month Naa Rios, DONYA [facility] BLOOD BANK ASSISTANT - Recent and Past Visits Recent Visits Date Type Provider Dept 08/06/20 Telemedicine Victoriano Reid MD [facility] 01/22/20 Telemedicine Victoriano Reid MD [facility] 10/24/19 Office Visit Victoriano Reid MD [facility] 07/17/19 Office Visit [facility] MD [facility] Showing recent visits within past 460 days with a meds authorizing provider and meeting all other requirements Future Appointments No visits were found meeting these conditions. Showing future appointments within next 90 days with a meds authorizing provider and meeting all other requirements LOPMENT EDUCATOR documented in this encounter Plan of Treatment Upcoming Encounters Date Type Department Care Team (Latest Contact Info) Description 05/12/2025 1:30 PM CDT Clinical Support [facility] PHYSICIAN GROUP UROLOGY #2 [place] [address] Nurse Ken Urology 06/02/2025 12:10 PM CDT [facility] 1 [facility] [place] [address] Cabrera Yadav MD #[address] [address] 06/02/2025 12:10 PM CDT - 06/02/2025 2:40 PM CDT [facility] [address] [place] [address] Cabrera Yadav MD #2 [facility] [address] [place] [address] CYSTOSCOPY AND LITHOLAPAXY, PATIENT WILL NEED A PAUL LIFT Scheduled Procedures Name Priority Associated Diagnoses Date/Ti tn CYSTOSCOPY BLADDER STONE BLADDER STONES 06/02/2025 12:10 PM CDT documented as of this encounter Visit Diagnoses Not on filedocumented in this encounter Additional Health Concerns Infection Onset Date Last Indicated Resolved Time 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 [address] [place] [address] PCP - General Family Medicine 07/01/24 Malissa Joe, RN [place] Nurse Right Of Way Buyer 12/03/23 12/03/23 Malissa Joe, RN [place] Nurse Right Of Way Buyer 12/05/23 12/05/23 H[place] LSW [place] Plow Shaker Right Of Way Buyer 11/03/24 Cabrera Yadav MD #2 [facility] [address] [place] [address] Consulting Physician Urology 11/07/24 Viktoriya Arias LSW [place] Plow Shaker Right Of Way Buyer 04/22/25 documented as of this encounter
--- OUTSIDE RECORDS SUMMARY | 2025-05-09 18:51 | XMS_ITS | Encounter Summary ---
Author Organization [facility] Address [address] [place] [address] Phone Care Team Providers Care Doll Eye Setter Name Role Phone Victoriano Reid MD Primary Care Provider [phone] Malissa Joe RN Unavailable Unavailable Malsisa Joe RN Unavailable Unavailable Elva Olivares DO Primary Care Provider [phone] [place] AUTO BODY REPAIRER Unavailable Cabrera Smallwood MD Unavailable [phone] Viktoriya Arias AUTO BODY REPAIRER Unavailable Unavailab le Reason for Visit * Reason Comments Medication Refill Encounter Details Date Type Department Care Team (Late st Contact Info) Description 12/22/2020 Refill [facility] Medical Group - Family Medicine [facility] #2 [place] [address] Victoriano Reid MD #1 [place] [address] Medication Refill Social History Tobacco Use Types [...] 4 months ago Acute cystitis with hematuria [facility] Victoriano Beck MD 11 months ago Paralysis of both lower limbs (HCC) [facility] Victoriano Beck MD 1 year ago Uncontrolled type 2 diabetes mellitus with hyperglycemia (HCC) [facility] Victoriano Beck MD 1 year ago Spinal cord compression due to malignant neoplasm metastatic to spine ([facility]) [facility] Victoriano Beck MD 1 year ago Annual visit for general adult medical examination with abnormal findings [facility] Victoriano Beck MD Upcoming Appointments Future Appointments Tomorrow [facility], [facility] Tomorrow Naa Rios [facility] 6 days Sharonda Carrion PTA [facility] week Naa [facility]ios [facility]onda [facility]ion P[facility] 2 weeks [facility] 3 weeks Naa Rios [facility] weeks [facility]onda Carrion PTA [facility] REAL ESTATE SITE ANALYST - Recent and Past Visits Recent Visits Date Type Provider Dept 08/06/20 Telemedicine Victoriano Reid MD [facility] Ken 01/22/20 Telemedicine Victoriano Reid MD [facility] 10/24/19 Office Visit Victoriano Reid MD [facility] Showing recent visits within past 460 days with a meds authorizing provider and meeting all other requirements Future Appointments No visits were found meeting these conditions. Showing future appointments within next 90 days with a meds authorizing provider and meeting all other requirements DEPARTMENT MANAGER documented in this encounter Plan of Treatment Upcoming Encounters Date Type Department Care Team (Latest Contact Info) Description 05/12/2025 1:30 PM CDT Clinical Support [facility] PHYSICIAN GROUP UROLOGY #2 [place] [address] NurseKen Urology 06/02/2025 12:10 PM CDT [facility] 1 [place] [address] Cabrera Yadav MD #[address] [address] 06/02/2025 12:10 PM CDT - 06/02/2025 2:40 PM CDT [facility] [address] [place] [address] Cabrera Yadav MD #[address] [address] CYSTOSCOPY AND LITHOLAPAXY, PATIENT WILL NEED A [...] Noted Time PHQ-9 Depression Total Score: 0 01/10/20 20 11:16 AM MEAT DEPARTMENT MANAGER documented as of this encounter Care Teams Doll Eye Setter Relationship Specialty Start Date End Date Victoriano Reid MD PCP - General Family Medicine 06/19/19 06/29/24 Elva Olivares DO 2 [facility] [address] [place] [address] PCP - General Family Medicine 07/01/24 Malissa Joe, RN [place] Nurse Cinder Worker 12/03/23 12/03/23 Malissa Joe, RN [place] Nurse Cinder Worker 12/05/23 12/05/23 H[place] LSW [place] Invasive Cardiologist Cinder Worker 11/03/24 Cabrera Yadav MD #2 [facility] [address] [place] [address] Consulting Physician Urology 11/07/24 Viktoriya Arias, AUTO BODY REPAIRER [place] Invasive Cardiologist Cinder Worker 04/22/25 documented as of this encounter
--- OUTSIDE RECORDS SUMMARY | 2025-05-09 18:51 | XMS_ITS | Encounter Summary ---
Author Organization [facility] Address [address] [facility] [place] [address] Phone Care Team Providers Care Apartment Leasing Specialist Name Role Phone Victoriano Reid MD Primary Care Provider [phone] Malissa Joe RN Unavailable Unavailable Malissa Joe RN Unavailable Unavailable Elva Olivares DO Primary Care Provider [phone] [place] REHABILITATION CENTER MANAGER Unavailable Cabrera Smallwood MD Unavailable [phone] Viktoriya rAias REHABILITATION CENTER MANAGER Unavailable Unavailab le Reason for Visit * Reason Onset Date Comments Results 10/25/2020 Encounter Details Date Type Department Care Team (Late st Contact Info) Description 10/25/2020 Telephone [facility] [address] [place] [address] Victoriano Reid MD #1 [place] [address] Results Social History Tobacco Use Types Packs/Day [...] RN - 10/25/2020 5:46 PM CST lmom ON PAPER MACHINE OPERATOR * Telephone Encounter - Victoriano Reid MD - 10/25/2020 4:56 PM CST The urine is not showing quite enough to be infection but I will treat her as I know that her urinewas very foul smelling and has a lot of sediment and this is from the bacteria. I will send in an antibiotic. ON PAPER MACHINE OPERATOR * Telephone Encounter - Jelena Cotto RN - 10/25/2020 4:04 PM CST Patient's daughter calling for results from UA and Urine culture from 10/22/20. ON PAPER MACHINE OPERATOR documented in this encounter Plan of Treatment Upcoming Encounters Date Type Department Care Team (Latest Contact Info) Description 05/12/2025 1:30 PM CDT Clinical Support [facility] PHYSICIAN GROUP UROLOGY #2 [place] [address] Nurse, [place] Urology 06/02/2025 12:10 PM CDT [facility] [address] [place] [address] Cabrera Yadav MD #[address] [address] 06/02/2025 12:10 PM CDT - 06/02/2025 2:40 PM CDT [facility] [address] [place] [address] Cabrera Yadav MD #2 [facility] [address] [place] [address] CYSTOSCOPY AND LITHOLAPAXY, PATIENT WILL NEED A [...] Depression Total Score: 0 10/24/19 11:16 AM CARBON PAPER MACHINE OPERATOR documented as of this encounter Care Teams Apartment Leasing Specialist Relationship Specialty Start Date End Date Victoriano Reid MD PCP - General Family Medicine 06/19/19 06/29/24 Elva Olivares DO 2 [facility] [address] [place] [address] PCP - General Family Medicine 07/01/24 Malissa Joe, RN [place] Nurse Jewelry Sales Representative 12/03/23 12/03/23 Malissa Joe RN [place] Nurse Jewelry Sales Representative 12/05/23 12/05/23 H[place] LSW [place] Public Relations Manager Jewelry Sales Representative 11/03/24 Cabrera Yadav MD #2 [facility] [address] [place] [address] Consulting Physician Urology 11/07/24 Viktoriya Arias LSW [place] Public Relations Manager Jewelry Sales Representative 04/22/25 documented as of this encounter
--- OUTSIDE RECORDS SUMMARY | 2025-05-09 18:51 | XMS_ITS | Continuity of Care Document ---
Author Organization [facility] Address [address] [place] [address] [place] [address] Phone Care Team Providers Care Racing Car Driver Name Role Phone Jason Tejada MD Unavailable Unavailable Procedures Procedure Date Eye Exam & Treatment Advance Directives Directive Yes / No Effective Date File Name No Information Encounters Encounter Description Practice Location Reason(s) For Visit Diagnoses Date Provider Providers Copied on Encounter [facility], [id number] [place] [address] [address], [place], [place], [id number], [place] tel:[phone] [facility] No Information [address]. [address] [facility] [address], [place], [place], [id number], [place]. tel:[phone] Family History Family Member Type Diagnosis Age At Onset No Information Payers Payer name Insurance type Covered republican ID Authoriza tion(s) Medicaid [facility] [id number] Social History Type Description Quantity Date Captured [...]
--- OUTSIDE RECORDS SUMMARY | 2025-05-09 18:51 | XMS_ITS | Encounter Summary ---
Author Organization [facility] Address [address] [place] [address] Phone Care Team Providers Care Dormitory Keeper Name Role Phone Victoriano Reid MD Primary Care Provider [phone] Malissa Joe RN Unavailable Unavailable Malissa Joe RN Unavailable Unavailable Elva Olivares DO Primary Care Provider [phone] [place] FOOD ASSEMBLER KITCHEN Unavailable UnaCabrera Nevarez MD Unavailable [phone] Viktoriya Arias FOOD ASSEMBLER KITCHEN Unavailable Unavailab le Encounter Details Date Type Department Care Team (Late st Contact Info) Description 02/07/2021 [facility] [address] [place] [address] Victoriano Reid MD #1 [place] [address] Neuromuscular dysfunction of bladder, unspecified Social History [...] 1:30 PM CDT Clinical Support [facility]YS[facility]IAN GROUP UROLOGY #2 [place] [address] NurseKen Urology 06/02/2025 12:10 PM CDT Hospital Encounter [facility] Periop 1 [place] [address] Cabrera Yadav MD #[address] [address] 06/02/2025 12:10 PM CDT - 06/02/2025 2:40 PM CDT [facility] [address] [place] [address] Cabrera Yadav MD #[address] [address] CYSTOSCOPY AND LITHOLAPAXY, PATIENT WILL NEED A [...] RESULTS ESCHERICHIA COLI 02/10/2021 9:24 AM CDT [facility] Comment:PRESUMPTIVE IDENTIFI CATION CULTURE RESULTS ALSO MIXED GROWTH OF DISTAL URETHRA CONTAMINANTS. 02/10/2021 9:24 AM CDT [facility] Urine Non-Phlebotomy Collection / Unknown 02/07/2021 [...] Final Result [facility] [address] [place] [address], [place] * (ABNORMAL) URINALYSIS REFLEX IF INDICATED BY ABNORMAL RESULTS (02/07/2021 3:15 PM CDT) SPECIFIC GRAVITY 1.010 1.003 - 1.030 02/07/2021 5:23 PM CDT [facility] URINE PH 7.0 5.0 - 9.0 02/07/2021 5:23 PM CDT [facility] WBC ESTERASE 500 /uL(A) Negative 02/07/2021 5:23 PM CDT [facility] NITRITE Positive(A) Negative 02/07/2021 5:23 PM CDT [facility] PROTEIN, RANDOM URINE 100 mg/dL(A) Negative 02/07/2021 5:23 PM CDT [facility] URINE GLUCOSE, QUAL Negative Negative 02/07/2021 5:23 PM CDT [facility] URINE KETONES Negative Negative 02/07/2021 5:23 PM CDT [facility] UROBILINOGEN Normal Normal mg/dL 02/07/2021 5:23 PM CDT [facility] URINE BILIRUBIN Negative Negative 5:23 PM CDT [facility] URINE BLOOD 250 /uL(A) Negative josefa/ul 02/07/2021 5:23 PM CDT [facility] URINALYSIS COLOR Yellow 02/08/20 5:23 PM CDT [facility] URINALYSIS CLARITY Very Cloudy 02/07/2021 5:23 PM CDT [facility] WBC (Urine) 51-150(A) Negative, 0-5 /hpf 02/07/2021 5:23 PM CDT [facility] URINE RBC'S 21-50(A) Negative, 0-2 /hpf 02/07/2021 5:23 PM CDT [facility] EPITHELIAL CELLS Moderate amount /lpf 02/07/2021 5:23 PM CDT [facility] BACTERIA, URINE Packed(A) Negative /hpf 02/07/2021 5:23 PM CDT [facility] Urine Non-Phlebotomy Collection / Unknown 02/07/2021 3:15 PM CDT 02/07/2021 5:09 PM CDT us Victoriano Reid MD URINE ORDERABLES Final Result [facility] [address] [place] [address] documented in this encounter Visit Diagnoses Diagnosis Neuromuscular dysfunction of bladder, unspecified documented in this encounter Additional Health Concerns Infection Onset Date Last Indicated Resolved Time 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 06/05/2019 04/15/2021 7:28 AM CDT Assessment Noted Time PHQ-9 Depression Total Score: 0 10/24/19 20 11:16 AM TOUR MANAGER documented as of this encounter Care Teams Dormitory Keeper Relationship Specialty Start Date End Date Victoriano Reid MD PCP - General Family Medicine 06/19/19 06/29/24 Elva Olivares DO 2 [facility] [address] [place] [address] PCP - General Family Medicine 07/01/24 Malissa Joe, RN [place] Nurse Memory Care Program Resident 12/03/23 12/03/23 Malissa Joe, RN [place] Nurse Memory Care Program Resident 12/05/23 12/05/23 [place], FOOD ASSEMBLER KITCHEN [place] Vault Worker Memory Care Program Resident 11/03/24 Cabrera Yadav MD #2 [facility] [address] [place] [address] Consulting Physician Urology 11/07/24 Viktoriya Arias LSW [place] Vault Worker Memory Care Program Resident 04/22/25 documented as of this encounter
--- OUTSIDE RECORDS SUMMARY | 2025-05-09 18:51 | XMS_ITS | Clinical Summary ---
Author Organization [facility] Address [address] [place] [address] Phone Care Team Providers Care Gymnastic Coach Name Role Phone EliseElav Becky GARCIA Primary Care Provider [phone] Cabrera Yadav MD Unavailable [phone] Allergies Active Allergy Reactions Criticality Noted Date [...] 2 diabetes mellitus with hyperglycemia ([facility]) USE PRIOR TO TESTING BLOOD SUGAR AND FOR INSULIN INJECTIONS, TEST 4 TIMES PER DAY 100 Each 6 023 Active Misc. Devices MiscIndications: Spinal cord compression due to malignant neoplasm metastatic to spine ([facility]) Supply and instructions: please assess and repair pump on the air mattress. 1 Each 024 Active Misc. Devices MiscIndications: Spinal cord compression due to malignant neoplasm metastatic to spine ([facility]) Supply and instructions: 1 Each 024 Active loperamide (IMODIUM) 2 MG CapsuleIndicatio ns:Diarrhea Take 1 Capsule by mouth 4 times daily as needed for Diarrhea. Take 2 caps = 4mg after first loose stool then take 1 cap = 2mg after each subsequent loose stool. Do not exceed 16 mg = 8 caps in 24 hours. As needed for diarrhea 100 Capsule 1 Active nystatin 464248 UNIT/GM Powder Apply 3 times daily. Apply to affected area as directed. 60 g 3 Active Simethicone 80 MG TabletIndication s:Flatulence Take 1 Tablet by mouth 4 times daily as needed for Other (for gas). 360 Each 1 024 Active Diclofenac Sodium (VOLTAREN) 1 % GelIndications:p ain L shoulder Apply 4 g 4 times daily. Left shoulder 100 g 5 07/02/2 024 Active Additional Information Patient not taking.Reported on 02/02/2025 Citric Xe-Qwhdofezwgm-H g Carb (Renacidin) SolutionIndicati ons:Urinary Catheter Irrigation [...] TWICE DAILY 180 Capsule 1 025 Active montelukast (SINGULAIR) 10 MG Tablet Take 1 Tablet by mouth every evening. 90 Tablet 1 025 Active oxybutynin (DITROPAN-XL) 10 MG TABLET SR 24 HRIndications:Ur inary Incontinence,rosa romuscular bladder dysfunction Take 1 Tablet by mouth daily. Indications: Urinary Incontinence, neuromuscular bladder dysfunction 90 Tablet 1 025 Active gabapentin (NEURONTIN) 300 MG CapsuleIndicatio ns:Neuropathic Pain TAKE 2 CAPSULES BY MOUTH EVERY 8 HOURS 270 Capsule 1 025 Active baclofen (LIORESAL) 10 MG Tablet Take 1 Tablet by mouth 3 times daily as needed for Muscle spasms. 90 Tablet 025 Active acyclovir (ZOVIRAX) 400 MG Tablet Take 1 Tablet by mouth 3 times daily. 90 Tablet 1 025 Active ergocalciferol (VITAMIN D) 50807 UNIT CapsuleIndicatio ns:Vitamin D Deficiency Take 1 Capsule by mouth once a week. Indications: Vitamin D Deficiency 4 Capsule 025 Active gabapentin (NEURONTIN) 300 MG CapsuleIndicatio ns:Neuropathic Pain Take 2 Capsules by mouth every 8 hours. 270 Capsule 1 024 2024 Discontinued oxybutynin (DITROPAN-XL) 10 MG TABLET SR 24 HRIndications:Ur inary Incontinence,rosa romuscular bladder dysfunction Take 1 Tablet by mouth daily. 90 Tablet 1 024 2024 Discontinued(R eorder) acyclovir (ZOVIRAX) 400 MG Tablet Take 1 Tablet by mouth 3 times daily. 90 Tablet 1 025 2024 Discontinued(R eorder) baclofen (LIORESAL) 10 MG Tablet Take 1 Tablet by mouth 3 times daily as needed for Muscle spasms. 90 Tablet 025 2024 Discontinued(R eorder) ergocalciferol (VITAMIN D) 62843 UNIT CapsuleIndicatio ns:Vitamin D Deficiency Take 1 Capsule by mouth once a week. Indications: Vitamin D Deficiency 4 Capsule 025 2024 Discontinued(R eorder) Active Problems Problem [...] Encounters Date Type Department Care Team Description 05/01/2025 Refill [facility] [place] [address] [place] [phone] Elva Olivares, DO Medication Refill 05/01/2025 Telephone [facility] [place] [address] Cabrera Yadav MD Surgery 04/30[facility]20[facility] [place] [address] Elva Olivares, DO Medication Refill 04/28/2025 [facility] [place] [address] Elva Olivares, DO Medication Refill 04/23/2025 [facility] [place] [address] Singh Myrick APRN, [employer] Medication Refill 04/22/2025 [facility] [address] [place] [address] Viktoriya Arias, [facility] Care Management ( referral) 04/21/2025 Telephone [facility] #[address] [place] [address] Cabrera Yadav MD Surgery 04/20/2025 [facility] [address] [place] [phone] Elva Olivares, DO Advice Only; Appointment 04/13/2025 [facility] [place] [address] Elva Olivares, DO Medication Refill 04/01/2025 Travel 04/01/2025 [facility] [address] [place] [address] Cabrera Yadav MD Pre-op testing (Primary Dx) 04/01/2025 Transcribe [facility] 1 [facility] [place] [address] Cabrera Yadav MD 03/27/2025 Refill [facility] [address] [place] [address] Elva Olivares, DO Medication Refill 03/23/2025 Telephone [facility] [address] [place] [phone] Elva Olivares, DO Follow-up; Labs Only 03/17/2025 [facility] [place] [address] Elva Olivares, DO Medication Refill 03/15/2025 Results Follow-Up [facility] UR[facility]Y [address] [place] [address] Cabrera Yadav MD CULTURE, URINE 03/10/2025 2:00 PM CDT Clinical Support [facility] UR[facility] [address] [place] [address] NurseKen Urology UTI symptoms (Primary Dx); Neurogenic bladder Discharge Disposition: Discharged to home or Selfcare 03/10/2025 Travel 03/05/2025 Results Follow-Up [facility] UROLOGY #[address] [place] [address] UROGRAPHY WO/W CONTRAST 03/03/2025 12:57 PM CDT - 03/03/2025 11:59 PM CDT Hospital Encounter [facility] CT [address] [facility] [place] [address] Cabrera Yadav MD Discharge Disposition: Discharged to home or Selfcare 03/03/2025 Travel 02/23/2025 Refill [facility] [address] [place] [address] Elva Olivares, DO Medication Refill 02/18/2025 Refill [facility] [address] [place] [address] Victoriano Reid MD Medication Refill 02/16/2025 Telephone [facility] [address] [place] [address] Cabrera Yadav MD Surgery from Last 3 Months Family History Medical [...] 2 51.6 Started: 1971 Smokeless Tobacco: Never Tobacco Cessation:Ready to Q uit: Not Asked; Counseling Given: Not Answered Alcohol Use Standard Drinks/Week Comments Not Currently 0 (1 standard drink = 0.6 oz pur e alcohol) [facility] Utilities Answer Date Recorded In the past 12 months has [employer], gas, oil, or water [employer] threatened to shut off services in your [...] in a longterm (including now)? No 12/20/2023 Housing Stability Vital Sign Answer Saleem e Recorded In the last 12 months, was t here a time when you were not able to pay the mortgage or rent on time? No 04/15/2024 Number of Times Moved in the Last Year Not on fi le 04/15/2024 At any time in the past 12 m [facility], were you homeless or living in a longterm (including now)? No 04/15/2024 Education Answer Date [...] 36.2 C (97.2 F) 10/16/2024 12:38 PM ASSISTANT CASE MANAGER Respiratory Rate 18 11/07/2024 12:31 PM ASSISTANT CASE MANAGER Oxygen Saturation 93% 01/02/2025 10:41 AM CDT Inhaled Oxygen Concentration - - Weight 81.6 kg (180 lb) 04/01/2025 1:00 PM CDT Height 167.6 cm (5' 6) 04/01/2025 1:00 PM CDT Body Mass Index 29.05 04/01/2025 1:00 PM CDT Plan of Treatment Upcoming Encounters Date Type Department Care Team (Latest Contact Info) Description 05/12/2025 1:30 PM CDT Clinical Support [facility] [address] [place] [address] NurseKen Urology 06/02/2025 12:10 PM CDT Hospital Encounter [facility] Periop 1 [facility] [address] Cabrera Yadav MD #[facility] [address] [place] [address] 06/02/2025 12:10 PM CDT - 06/02/2025 2:40 PM CDT Surgery [facility] Periop [address] [place] [address] Cabrera Yadav MD #[address] [facility], [facility] [address] [place] [address] CYSTOSCOPY AND LITHOLAPAXY, PATIENT WILL NEED A PAUL LIFT Scheduled Procedures Name Priority Associated Diagnoses Date/Ti me CYSTOSCOPY BLADDER STONE BLADDER STONES 06/02/2025 12:10 PM CDT Health Maintenance Due Date Last Done Comments DEXA Bone Density 1957 Diabetes: Eye Exam 1957 Hepatitis C Virus (HCV) Screening 1957 Mammogram 1957 TdaP Immunization 1957 SARS-COV-2 Immunization (#1) 1962 Pneumococcal Immunization (50+ years) (1 of 2 - PCV) 1976 Zoster Immunization (1 of 2) 1976 Cologuard 2002 Colonoscopy 2002 Colorectal Cancer Screening 2002 Immunochemical Fecal Occult Blood 2002 Respiratory Syncytial Virus (RSV) Immunization (Adult) (1 - Risk 60-74 years 1-dose series) 2017 Lung Cancer Screening 04/15/2020 04/15/2019 Diabetes: Foot Exam 10/24/2020 10/24/2019, 10/24/2019, 10/24/2019 Influenza Immunization (#1) 2025 Diabetes: Hemoglobin A1c 09/19/2025 025, 04/15/2024, 12/20/2023, Additional history exists Diabetes: Nephropathy Screening 03/20/2026 03/20/2025, 05/27/2024, 05/27/2024, Additional history exists Hepatitis B Immunization Aged [...] Procedure Name Priority Date/Time Associated Diagnosis Comments IN-HOME CONSULT 04/01/2025 12:00 AM CDT HEMOGLOBIN, A1C 03/20/2025 12:00 AM CDT UR MICROALBUMIN/CREATININ E RATIO RANDOM 03/20/2025 12:00 AM CDT LAB - MISCELLANEOUS 03/20/2025 1 2:00 AM CDT CULTURE, URINE Routine 03/10/2025 2:24 PM CDT UTI symptoms Neurogenic bladder CT UROGRAPHY WO/W CONTRAST Routine 03/03/2025 2:32 PM CDT Gross hematuria POCT CREATININE Routine 03/03/2025 1:36 PM CDT from Last 3 Months Results * IN-HOME CONSULT (04/01/2025 12:00 AM CDT) 04/01/2025 us Provider Scan GENERIC SCAN ORDERS CONSULT Luz l Result Performing Organization Address [facility] Co de Phone Number SCAN * LAB - MISCELLANEOUS (03/20/2025 12:00 AM CDT) 03/20/2025 us Provider Scan CHEMISTRY ORDERABLES Final Resul t Performing Organization Address City/[facility]/ZIP Co de Phone Number SCAN * UR MICROALBUMIN/CREATININE RATIO RANDOM (03/20/2025 12:00 AM CDT) RAN UR MICROALBUMIN 47 SCAN 03/20/2025 us Provider Scan URINE ORDERABLES Final Result Performing Organization Address City/[facility]/ZIP Co de Phone Number SCAN * HEMOGLOBIN, A1C (03/20/2025 12:00 AM CDT) HGB-A1C 6.4 SCAN 03/20/2025 us Provider Scan CHEMISTRY ORDERABLES Final Resul t SCAN * CULTURE, URINE (03/10/2025 2:24 PM CDT) CULTURE RESULTS KLEBSIELLA OXYTOCA 03/13/2025 8:22 PM CDT [facility] CULTURE RESULTS ESCHERICHIA COLI 03/13/2025 8:22 PM CDT [facility] Culture (Indwelling Catheter) Non-Phlebotomy Collection / Unknown 03/10/2025 2:24 PM CDT 03/10/2025 2:24 PM CDT Narrative Organism Antibiotic Method Susceptibility Klebsiella oxytoca Ampicillin/sulbactam [facility] IIB 8 mcg/ml: Susceptible Klebsiella oxytoca Cefepime [facility] IIB <=0.12 mcg/ml: Susceptible Klebsiella oxytoca Ceftriaxone [facility] IIB <=0.25 mcg/ml: Susceptible Klebsiella oxytoca Gentamicin [facility] IIB <=1 mcg/ml: Susceptible Klebsiella oxytoca Levofloxacin [facility] IIB <=0.12 mcg/ml: Susceptible Klebsiella oxytoca Meropenem [facility] IIB <=0.25 mcg/ml: Susceptible Klebsiella oxytoca Nitrofurantoin [facility] IIB 32 mcg/ml: Susceptible Klebsiella oxytoca Piperacillin/Tazobactam [facility] IIB <=4 mcg/ml: Susceptible Klebsiella oxytoca Trimeth/Sulfamethoxazole [facility] IIB <=20 mcg/ml: Susceptible Escherichia coli Ampicillin [facility] II 16 mcg/ml: Intermediate Escherichia coli Ampicillin/sulbactam [facility] II 4 mcg/ml: Susceptible Escherichia coli Cefazolin [facility] II <16 mcg/ml: Susceptible Escherichia coli Cefepime [facility] II <=0.12 mcg/ml: Susceptible Escherichia coli Ceftriaxone [facility] II <=0.25 mcg/ml: Susceptible Escherichia coli Gentamicin [facility] II <=1 mcg/ml: Susceptible Escherichia coli Levofloxacin [facility] II <=0.12 mcg/ml: Susceptible Escherichia coli Meropenem [facility] II <=0.25 mcg/ml: Susceptible Escherichia coli Nitrofurantoin [facility] II <=16 mcg/ml: Susceptible Escherichia coli Piperacillin/Tazobactam [facility] II <=4 mcg/ml: Susceptible Escherichia coli Trimeth/Sulfamethoxazole [facility] I I <=20 mcg/ml: Susceptible us Cabrera Ward MD MICROBIOLOGY - GENERAL ORDERAB LES Final Result [facility] [address] [place] [id number], [place] * CT UROGRAPHY WO/W CONTRAST (03/03/2025 2:32 PM CDT) Anatomical Region Laterality Modality , Abdomen N/A Computed Tomogra phy 03/04/2025 9:51 PM CDT Impressions 03/04/2025 9:54 PM CDT IMPRESSION: 3 large bladder stones, the largest measuring 3.7 x 2.5 cm. No urinary tract inflammation/obstruction or other acute abnormality is seen. Fecal impaction with rectal diameter 8.6 cm. Minimal rectal wall thickening without evident inflammation. Narrative 03/04/2025 9:54 PM CDT EXAM DESCRIPTION: CT UROGRAPHY WO/W CONTRAST REASON FOR STUDY: gross hematuria x 3-4 weeks, microhematuria x 2 years. Bladder stone 12/2024. Hx neurogenic bladder x 5 years, indwelling armijo cath, DM. TECHNIQUE: Precontrast images of the abdomen. Abdomen and pelvis images with intravenous and without oral contrast using helical scanning technique with dynamic intravenous contrast injection. Corticomedullary, nephrographic, excretory phase images were acquired. Reconstructed coronal and sagittal MPR images reviewed. All images stored on PACS. Automated exposure control was used as a dose optimization technique for this examination. CONTRAST TYPE/DOSE: 100mL of IOPAMIDOL 76 % IV SOLN injected via Intravenous COMPARISON: None FINDINGS: KIDNEYS/URINARY TRACT: No urolithiasis. Ureters unremarkable. 3 large bladder stones, the largest measuring 3.7 x 2.5 cm. Scattered tiny renal parenchymal cysts. No suspicious lesion. Suprapubic catheter. No concerning finding on delayed images. LOWER CHEST: Minimal basilar atelectasis. Heart size normal. Coronary artery calcifications. LIVER/BILIARY: Liver unremarkable. Biliary tree normal in caliber. GALLBLADDER: Contracted around stones. SPLEEN: Normal. PANCREAS: Moderate atrophy. ADRENAL GLANDS: Normal. GI: Stomach and small bowel appear normal. Fecal impaction with rectal diameter 8.6.5 cm minimal rectal wall thickening but no adonis colitis. Moderate stool throughout the sigmoid colon. Remainder of colon unremarkable. Appendix not seen. OTHER ABDOMINAL/PELVIS: Major vascular structures are grossly patent and normal in caliber. Atherosclerotic calcifications. No enlarged lymph node or free fluid. Pelvic venous congestion. MSK: Moderate disc disease and facet arthropathy. Hip and SI joint arthrosis. BODY WALL: Unremarkable. THIS IS AN ELECTRONICALLY VERIFIED FINAL REPORT 03/04/2025 9:51 PM - Electronically signed by Kane Grewal M.D. AR: SADIE Report ID: [id number] Reading Location: [id number] Procedure Note Kane Grewal MD - 03/04/2025 EXAM DESCRIPTION: CT UROGRAPHY WO/W CONTRAST REASON FOR STUDY: gross hematuria x 3-4 weeks, microhematuria x 2 years. Bladder stone 12/2024. Hx neurogenic bladder x 5 years, indwelling armijo cath, DM. TECHNIQUE: Precontrast images of the abdomen. Abdomen and pelvis images with intravenous and without oral contrast using helical scanning technique with dynamic intravenous contrast injection. Corticomedullary, nephrographic, excretory phase images were acquired. Reconstructed coronal and sagittal MPR images reviewed. All images stored on PACS. Automated exposure control was used as a dose optimization technique for this examination. CONTRAST TYPE/DOSE: 100mL of IOPAMIDOL 76 % IV SOLN injected via Intravenous COMPARISON: None FINDINGS: KIDNEYS/URINARY TRACT: No urolithiasis. Ureters unremarkable. 3 large bladder stones, the largest measuring 3.7 x 2.5 cm. Scattered tiny renal parenchymal cysts. No suspicious lesion. Suprapubic catheter. No concerning finding on delayed images. LOWER CHEST: Minimal basilar atelectasis. Heart size normal. Coronary artery calcifications. LIVER/BILIARY: Liver unremarkable. Biliary tree normal in caliber. GALLBLADDER: Contracted around stones. SPLEEN: Normal. PANCREAS: Moderate atrophy. ADRENAL GLANDS: Normal. GI: Stomach and small bowel appear normal. Fecal impaction with rectal diameter 8.6.5 cm minimal rectal wall thickening but no adonis colitis. Moderate stool throughout the sigmoid colon. Remainder of colon unremarkable. Appendix not seen. OTHER ABDOMINAL/PELVIS: Major vascular structures are grossly patent and normal in caliber. Atherosclerotic calcifications. No enlarged lymph node or free fluid. Pelvic venous congestion. MSK: Moderate disc disease and facet arthropathy. Hip and SI joint arthrosis. BODY WALL: Unremarkable. THIS IS AN ELECTRONICALLY VERIFIED FINAL REPORT 03/04/2025 9:51 PM - Electronically signed by Kane Grewal M.D. AR: SADIE Report ID: [id number] Reading Location: [id number] IMPRESSION: 3 large bladder stones, the largest measuring 3.7 x 2.5 cm. No urinary tract inflammation/obstruction or other acute abnormality is seen. Fecal impaction with rectal diameter 8.6 cm. Minimal rectal wall thickening without evident inflammation. us Cabrera Ward MD IMG CT ORDERABLES Final Result * POCT Creatinine (03/03/2025 1:36 PM CDT) CREATININE - POCT 0.8 0.6 - 1.3 mg/dL 03/03/2025 1:41 PM CDT [facility] Blood 03/03/2025 1:36 PM CDT 03/03/2025 1:41 PM CDT us None Provider POINT OF CARE TESTING Final Resu lt [facility] [address] [place] [address] from Last 3 Months Insurance MEDICAID [place] MED[employer] C [employer] Advance Directives * Full Code (Latest Code Status on File) Date Activated Date Inactivated Comments 04/10/2019 2:14 PM Care Teams Gymnastic Coach Relationship Specialty Start Date End Date Elva Olivares DO [address] [facility] [place] [facility] [address] [place] [address] PCP - General Family Medicine 07/01/24 Cabrera Yadav MD [address] [facility] [address] [place] [address] Consulting Physician Urology 11/07/24
--- OUTSIDE RECORDS SUMMARY | 2025-05-09 18:51 | XMS_ITS | Encounter Summary ---
Author Organization [facility] Address [address] [place] [address] Phone Care Team Providers Care Mitten Sewer Name Role Phone Victoriano Reid MD Primary Care Provider [phone] Malissa Joe RN Unavailable Unavailable Malissa Joe RN Unavailable Unavailable Elva Olivares DO Primary Care Provider [phone] [place] PAPER SEALER Unavailable Unaabdirizaki Cabrera Dodge MD Unavailable [phone] Viktoriya Arias PAPER SEALER Unavailable Unavailab le Encounter Details Date Type Department Care Team (Late st Contact Info) Description 02/12/2021 [facility] [address] [place] [address] Vishal Vee MD [address] [place], [place] [id number] Urinary tract infection, site not specified; Thrombocytopenia, [...] Description 05/12/2025 1:30 PM CDT Clinical Support [facility] UR[facility]Y #2 [place] [address] Nurse [place] Urology 06/02/2025 12:10 PM CDT Hospital Encounter [facility] Periop 1 [place] [address] Cabrera Yadav MD #[address] [address] 06/02/2025 12:10 PM CDT - 06/02/2025 2:40 PM CDT [facility] Per[facility] [address] [place] [address] Cabrera Yadav MD #[address] [address] CYSTOSCOPY AND LITHOLAPAXY, PATIENT WILL NEED A [...] - 12.00 10(3)/mcL 02/12/2021 12:08 PM CDT [facility] RBC 3.62(L) 3.80 - 5.30 10(6)/mcL 02/12/2021 12:08 PM CDT [facility] HEMOGLOBIN (HGB) 11.4(L) 12.0 - 15.8 g/dL 02/12/2021 12:08 PM CDT [facility] HEMATOCRIT (HCT) 34.6(L) 36.0 - 47.0 % 02/12/2021 12:08 PM CDT [facility] MCV 95.6 82.0 - 96.0 fL 02/12/2021 12:08 PM CDT [facility] MCH 31.5 26.0 - 34.0 pg 02/12/2021 12:08 PM CDT [facility] MCHC 32.9 31.0 - 36.0 g/dL 02/12/2021 12:08 PM CDT [facility] PLATELET COUNT 151 140 - 440 10(3)/mcL 02/12/2021 12:08 PM CDT [facility] Comment:No clot in tube, no clumps on smear RDW 14.7 11.8 - 15.5 % 02/12/2021 12:08 PM CDT [facility] MPV 12.2 9.7 - 12.4 fL 02/12/2021 12:08 PM CDT [facility] NEUTROPHILS 63.7 47.0 - 73.0 % 02/12/2021 12:08 PM CDT [facility] LYMPHOCYTES 24.1 18.0 - 42.0 % 02/12/2021 12:08 PM CDT [facility] MONOCYTES 9.2 4.0 - 12.0 % 02/12/2021 12:08 PM CDT [facility] EOSINOPHILS 2.5 0.0 - 5.0 % 02/12/2021 12:08 PM CDT [facility] BASOPHILS 0.5 0.0 - 1.0 % 02/12/2021 12:08 PM CDT [facility] ABSOLUTE NEUTROPHILS 5.00 1.60 - 7.70 10(3)/[facility] 02/12/2021 12:08 PM CDT [facility] ABSOLUTE LYMPHOCYTES 1.89 1.30 - 3.20 10(3)/[facility] 02/12/2021 12:08 PM CDT [facility] ABSOLUTE MONOCYTES 0.72 0.20 - 1.00 10(3)/[facility] 02/12/2021 12:08 PM CDT [facility] ABSOLUTE EOSINOPHIL 0.20 0.00 - 0.40 10(3)/[facility] 02/12/2021 12:08 PM CDT [facility] ABSOLUTE BASOPHILS 0.04 0.00 - 0.10 10(3)/[facility] 02/12/2021 12:08 PM CDT [facility] NRBC PER 100 WBC 0 02/13/20 21 12:08 PM CDT [facility] RESULTS ARE CONSISTENT WITH PERIPHERAL SMEAR REVIEW Yes 02/12/2021 12:08 PM CDT [facility] Blood Venipuncture / Unknown 02/12/2021 10:40 AM CDT 02/12/2021 11:30 AM CDT Vishal Vee MD HEMATOLOGY ORDERABLES Final Result 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. [address] [place] [address] PCP - General Family Medicine 07/01/24 Malissa Joe, RN [place] Nurse Case Therapist 12/03/23 12/03/23 Malissa Joe, RN [place] Nurse Case Therapist 12/05/23 12/05/23 [place], PAPER SEALER [place] Diversity Intern Case Therapist 11/03/24 Cabrera Yadav MD #2 [facility] [address] [place] [address] Consulting Physician Urology 11/07/24 Viktoriya Arias, PAPER SEALER [place] Diversity Intern Case Therapist 04/22/25 documented as of this encounter
--- OUTSIDE RECORDS SUMMARY | 2025-05-09 18:51 | XMS_ITS | Encounter Summary ---
Author Organization [facility] Address [address] [place] [address] Phone Care Team Providers Care Rubber Thread Spooler Name Role Phone Victoriano Reid MD Primary Care Provider [phone] Malissa Joe RN Unavailable Unavailable Malissa Joe RN Unavailable Unavailable Elva Olivares DO Primary Care Provider [phone] [place] CAD MANAGER Unavailable Cabrera Smallwood MD Unavailable [phone] Viktoriya Arias CAD MANAGER Unavailable Unavailab le Reason for Visit * Reason Comments Medication Refill Encounter Details Date Type Department Care Team (Late st Contact Info) Description 08/07/2022 Refill [facility] Medical Group - Family Medicine [facility] [address] [place] [address] Victoriano Reid MD #1 [place] [address] Medication Refill Social History Tobacco Use Types [...] Rogers 08/15/21 Office Visit Victoriano Reid MD [facility] Showing recent visits within past 365 [...] Rogers 08/15/21 Office Visit Victoriano Reid MD [facility] Showing recent visits within past 365 days [...] Dept 01/05/22 Office Visit Nia Abbott PAC [facility] 08/15/21 Office Visit Victoriano Reid MD [facility] Showing recent visits within past 365 days and meeting all other requirements Future Appointments No visits were found meeting these conditions. Showing future appointments within next 90 days and meeting all other requirements nystatin [id number] UNIT/GM Powder [Pharmacy Med Name: NYSTOP TOP [...] Rogers 08/15/21 Office Visit Victoriano Reid MD [facility] Showing recent visits within past 365 days and meeting all other requirements Future Appointments No visits were found meeting these conditions. Showing future appointments within next 90 days and meeting all other requirements documented in this encounter Plan of Treatment Upcoming Encounters Date Type Department Care Team (Latest Contact Info) Description 05/12/2025 1:30 PM CDT Clinical Support [facility] UROLOGY [address] [place] [address] Nurse [place] Urology 06/02/2025 12:10 PM CDT Hospital Encounter [facility] Periop [address] [place] [address] Cabrera Yadav MD #2 [facility] [address] [place] [address] 06/02/2025 12:10 PM CDT - 06/02/2025 2:40 PM CDT [facility] 1 [facility] [place] [address] Cabrera Yadav MD #2 [facility] [address] [place] [address] CYSTOSCOPY AND LITHOLAPAXY, PATIENT WILL NEED A PAUL LIFT Scheduled Procedures Name Priority Associated Diagnoses Date/Ti sd CYSTOSCOPY BLADDER STONE BLADDER STONES 06/02/2025 12:10 PM CDT documented as of this encounter Visit Diagnoses Diagnosis Neurogenic bladder Neurogenic bladder, NOS Allergic rhinitis, unspecified seasonality, unspecified trigger Muscle spasm Spasm of muscle documented in this encounter Additional Health Concerns Assessment Noted Time PHQ-9 Depression Total Score: 0 08/15/20 21 10:00 AM CDT documented as of this encounter Care Teams Rubber Thread Spooler Relationship Specialty Start Date End Date Victoriano Reid MD PCP - General Family Medicine 06/19/19 06/29/24 Elva Olivares DO 2 [facility] [address] [place] [address] PCP - General Family Medicine 07/01/24 Malissa Joe, RN [place] Nurse Senior Sharepoint Architect 12/03/23 12/03/23 Malissa Joe RN [place] Nurse Senior Sharepoint Architect 12/05/23 12/05/23 H[place] LSW [place] Community Relations Officer Senior Sharepoint Architect 11/03/24 Cabrera Yadav MD #[address] [address] Consulting Physician Urology 11/07/24 Viktoriya Arias LSW [place] Community Relations Officer Senior Sharepoint Architect 04/22/25 documented as of this encounter
--- OUTSIDE RECORDS SUMMARY | 2025-05-09 18:51 | XMS_ITS | Encounter Summary ---
Author Organization [facility] Address [address] [place] [address] Phone Care Team Providers Care Online Marketing Analyst Name Role Phone Victoriano Reid MD Primary Care Provider [phone] Malissa Joe RN Unavailable Unavailable Malissa Joe RN Unavailable Unavailable Elva Olivares DO Primary Care Provider [phone] [place] ASSISTANT MANAGER TRAINEE Unavailable UnaCabrera Nevarez MD Unavailable [phone] Viktoriya Arias ASSISTANT MANAGER TRAINEE Unavailable Unavailab le Encounter Details Date Type Department Care Team (Late st Contact Info) Description 03/18/2021 [facility] [address] [place] [address] Victoriano Reid MD #1 [place] [address] Neuromuscular dysfunction of bladder, unspecified; Acute cystitis [...] 05/12/2025 1:30 PM CDT Clinical Support [facility] UROLOGY #2 [place] [address] NurseKen Urology 06/02/2025 12:10 PM CDT Hospital Encounter [facility] Periop 1 [place] [address] Cabrera Yadav MD #[address] [address] 06/02/2025 12:10 PM CDT - 06/02/2025 2:40 PM CDT Surgery [facility] Periop 1 [place] [address] Cabrera Yadav MD #[address] [address] CYSTOSCOPY AND LITHOLAPAXY, PATIENT WILL NEED A [...] DISTAL URETHRAL CONTAMINANTS 03/19/2021 8:12 PM CDT [facility] Urine Non-Phlebotomy Collection / Unknown 03/18/2021 1:41 PM CDT us Victoriano Reid MD MICROBIOLOGY - GENERAL ORDERABLE S Final Result [facility] [address] [place] [address], * (ABNORMAL) URINALYSIS REFLEX IF INDICATED BY ABNORMAL RESULTS (03/18/2021 2:20 PM CDT) Pathologist [facility] SPECIFIC GRAVITY 1.010 1.003 - 1.030 03/18/2021 2:20 PM CDT [facility] URINE PH 8.0 5.0 - 9.0 03/18/2021 2:20 PM CDT [facility] WBC ESTERASE 500 /uL(A) Negative 03/18/2021 2:20 PM CDT [facility] NITRITE Positive(A) Negative 03/18/2021 2:20 PM CDT [facility] PROTEIN, RANDOM URINE Negative Negative 03/18/2021 2:20 PM CDT [facility] URINE GLUCOSE, QUAL Negative Negative 03/18/2021 2:20 PM CDT [facility] URINE KETONES Negative Negative 03/18/2021 2:20 PM CDT [facility] UROBILINOGEN Normal Normal mg/dL 03/18/2021 2:20 PM CDT [facility] URINE BILIRUBIN Negative Negative 2:20 PM CDT [facility] URINE BLOOD 150 /uL(A) Negative josefa/ul 03/18/2021 2:20 PM CDT [facility] URINALYSIS COLOR Straw 03/18/2021 2:20 PM CDT [facility] URINALYSIS CLARITY Very Cloudy 03/18/2021 2:20 PM CDT [facility] WBC (Urine) 11-20(A) Negative, 0-5 /hpf 03/18/2021 2:20 PM CDT [facility] URINE RBC'S 6-10(A) Negative, 0-2 /hpf 03/18/2021 2:20 PM CDT [facility] EPITHELIAL CELLS Small amount /lpf 03/18/2021 2:20 PM CDT [facility] BACTERIA, URINE Moderate(A) Negative /hpf 03/18/2021 2:20 PM CDT [facility] URINE MUCOUS Many 03/18/2021 2:20 PM CDT [facility] CRYSTALS Amorphous phosphates 03/18/2021 2:20 PM CDT [facility] Urine Non-Phlebotomy Collection / Unknown 03/18/2021 1:41 PM CDT us Victoriano Reid MD URINE ORDERABLES Final Result [facility] #[address] [place] [address] documented in this encounter Visit Diagnoses Diagnosis Neuromuscular dysfunction of bladder, unspecified Acute cystitis without hematuria Acute cystitis Sepsis, unspecified organism (HCC) documented in this encounter Additional Health Concerns Infection Onset Date Last Indicated Resolved Time 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 06/05/2019 04/15/2021 7:28 AM CDT Assessment Noted Time PHQ-9 Depression Total Score: 0 10/24/19 20 11:16 AM BUSINESS BANKING SALES ASSISTANT documented as of this encounter Care Teams Online Marketing Analyst Relationship Specialty Start Date End Date Victoriano Reid MD PCP - General Family Medicine 06/19/19 06/29/24 Elva Olivares DO 2 [facility] [address] [address] PCP - General Family Medicine 07/01/24 Malissa Joe, RN [place] Nurse Equipment Tester 12/03/23 12/03/23 Malissa Joe, RN [place] Nurse Equipment Tester 12/05/23 12/05/23 H[place] LSW [place] Statistical Typist Equipment Tester 11/03/24 Cabrera Yadav MD #2 [facility] [address] [place] [address] Consulting Physician Urology 11/07/24 Viktoriya Arias, [place] Statistical Typist Equipment Tester 04/22/25 documented as of this encounter
--- OUTSIDE RECORDS SUMMARY | 2025-05-09 18:51 | XMS_ITS | Encounter Summary ---
Author Organization [facility] Address [address] [facility] [place] [address] Phone Care Team Providers Care Websphere Commerce Developer Name Role Phone Victoriano Reid MD Primary Care Provider [phone] Malissa Joe RN Unavailable Unavailable Malissa Joe RN Unavailable Unavailable Elva Olivares DO Primary Care Provider [phone] H[place] NEEDLE STRAIGHTENER Unavailable Unaabdirizaki Cabrera Dodge MD Unavailable [phone] Viktoriya Arias NEEDLE STRAIGHTENER Unavailable Unavailab le Encounter Details Date Type Department Care Team (Late st Contact Info) Description 06/28/2022 [facility] [address] [place] [phone] Rafi Yun MD #1 [place] [address] Painful micturition, unspecified Social History Tobacco Use [...] Clinical Support [facility] UROLOGY #2 [place] [address] NurseKen Urology 06/02/2025 12:10 PM CDT [facility] [address] [place] [address] Cabrera Yadav MD #[address] [address] 06/02/2025 12:10 PM CDT - 06/02/2025 2:40 PM CDT [facility] [address] [place] [address] Cabrera Yadav MD #[address] [address] CYSTOSCOPY AND LITHOLAPAXY, PATIENT WILL NEED A [...] * CULTURE, URINE (06/28/2022 10:45 AM CDT) Pathologist [facility] CULTURE RESULTS MIXED GROWTH OF 3 OR MORE ORGANISMS, PROBABLE COLLECTION CONTAMINATION, SUGGEST REPEAT URINE CULTURE. 06/29/2022 8:16 PM CDT [facility] Urine Non-Phlebotomy Collection / Unknown 06/28/2022 10:45 AM CDT 06/28/2022 12:42 PM CDT us Rafi Yun MD MICROBIOLOGY - GENERAL ORDERABL ES Final Result [facility] [address] [place] [address], * (ABNORMAL) URINALYSIS REFLEX IF INDICATED BY ABNORMAL RESULTS (06/28/2022 10:45 AM CDT) [facility] SPECIFIC GRAVITY 1.020 1.003 - 1.030 06/28/2022 1:04 PM CDT [facility] URINE PH 6.0 5.0 - 9.0 06/28/2022 1:04 PM CDT [facility] WBC ESTERASE 500 /uL(A) Negative 06/28/2022 1:04 PM CDT [facility] NITRITE Positive(A) Negative 06/28/2022 1:04 PM CDT [facility] PROTEIN, RANDOM URINE 100 mg/dL(A) Negative 06/28/2022 1:04 PM CDT [facility] URINE GLUCOSE, QUAL Negative Negative 06/28/2022 1:04 PM CDT [facility] URINE KETONES Negative Negative 06/28/2022 1:04 PM CDT [facility] UROBILINOGEN Normal Normal mg/dL 06/28/2022 1:04 PM CDT [facility] URINE BLOOD 250 /uL(A) Negative josefa/ul 06/28/2022 1:04 PM CDT [facility] URINALYSIS COLOR Yellow 06/28/20 1:04 PM CDT [facility] URINALYSIS CLARITY Very Cloudy 06/28/2022 1:04 PM CDT [facility] WBC (Urine) Packed(A) Negative, 0-5 /hpf 06/28/2022 1:04 PM CDT [facility] URINE RBC'S Packed(A) Negative, 0-2 /hpf 06/28/2022 1:04 PM CDT [facility] EPITHELIAL CELLS Negative /lpf 06/28/20 22 1:04 PM CDT [facility] BACTERIA, URINE Few(A) Negative /hpf 06/28/2022 1:04 PM CDT [facility] Urine Non-Phlebotomy Collection / Unknown 06/28/2022 10:45 AM CDT 06/28/2022 12:42 PM CDT us Rafi Yun MD URINE ORDERABLES Final Result Performing Organization Address City/State/[facility] Co de Phone Number [facility] #[address] [place] [address] documented in this encounter Visit Diagnoses Diagnosis Painful micturition, unspecified documented in this encounter Additional Health Concerns Assessment Noted Time PHQ-9 Depression Total Score: 0 08/15/20 21 10:00 AM CDT documented as of this encounter Care Teams Websphere Commerce Developer Relationship Specialty Start Date End Date Victoriano Reid MD PCP - General Family Medicine 06/19/19 06/29/24 Elva Olivares DO [address] [address] PCP - General Family Medicine 07/01/24 Malissa Joe, RN [place] Nurse Tipple Tender 12/03/23 12/03/23 Malissa Joe RN [place] Nurse Tipple Tender 12/05/23 12/05/23 Hinton, NEEDLE STRAIGHTENER [place] Redevelopment Specialist Tipple Tender 11/03/24 Cabrera Yadav MD #2 [facility] [address] [place] [address] Consulting Physician Urology 11/07/24 Viktoriya Arias LSW [place] Redevelopment Specialist Tipple Tender 04/22/25 documented as of this encounter
--- OUTSIDE RECORDS SUMMARY | 2025-05-09 18:51 | XMS_ITS | Encounter Summary ---
Author Organization [facility] Address [address] [place] [address] Phone Care Team Providers Care Relief Charge Nurse Name Role Phone Victoriano Reid MD Primary Care Provider [phone] Malissa Joe RN Unavailable Unavailable Malissa Joe RN Unavailable Unavailable Elva Olivares DO Primary Care Provider [phone] [place] CLINIC CMA Unavailable Cabrera Smallwood MD Unavailable [phone] Viktoriya Arias CLINIC CMA Unavailable Unavailab le Reason for Visit * Reason Comments Medication Refill Encounter Details Date Type Department Care Team (Late st Contact Info) Description 10/05/2020 Refill [facility] Medical Group - Family Medicine [facility] #2 [place] [phone] Victoriano Reid MD #[address] [place] [address] Medication Refill Social History Tobacco Use Types [...] Visits Recent Outpatient Visits 2 months ago [facility] Victoriano Toledo MD 8 months ago Paralysis of both lower limbs (HCC) [facility] - Victoriano Beck MD 11 months ago Uncontrolled type 2 diabetes mellitus with hyperglycemia (HCC) [facility] Victoriano Toledo MD 1 year ago 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) [facility] Victoriano Toledo MD 1 year ago Annual visit for general adult medical examination with abnormal findings [facility] Victoriano Toledo MD Upcoming Appointments Future Appointments In 6 days Naa Rios RN [facility] In 6 days Sharonda Carrion, FRANCIS [facility] In 1 week Sharonda Carrion, FRANCIS [facility] In 2 weeks Sharonda Carrion, FRANCIS [facility] In 2 weeks Naa Rios RN [facility] In 2 weeks Lorraine Russell, JIM [facility] In 3 weeks Sharonda Carrion, FRANCIS [facility] In 3 weeks Sharonda Carrion, SILICATOR [facility] In 4 weeks Sharonda Carrion, FRANCIS [facility] In 1 month Naa Rios RN [facility] In 1 month Sharonda Carrion, SILICATOR [facility] In 1 month Sharonda Carrion, SILICATOR [facility] In 1 month Lorraine Russell, PT [facility] In 1 month Lorraine Russell, PT [facility] In 1 month Naa Rios RN [facility] EDGE SETTER - Recent and Past Visits Recent Visits Date Type Provider Dept 08/06/20 Telemedicine Victoriano Reid MD [facility] 01/22/20 Telemedicine Victoriano Reid MD [facility] 10/24/19 Office Visit Victoriano Reid MD [facility] 07/17/19 Office Visit Victoriano Reid MD [facility] Showing recent visits within past 460 days with a meds authorizing provider and meeting all other requirements Future Appointments No visits were found meeting these conditions. Showing future appointments within next 90 days with a meds authorizing provider and meeting all other requirements ERWARE BUFFER documented in this encounter Plan of Treatment Upcoming Encounters Date Type Department Care Team (Latest Contact Info) Description 05/12/2025 1:30 PM CDT Clinical Support [facility] UROLOGY #2 [place] [address] Nurse, [facility] 06/02/2025 12:10 PM CDT [facility] 1 [place] [address] Cabrera Yadav MD #[address] [address] 06/02/2025 12:10 PM CDT - 06/02/2025 2:40 PM CDT [facility] 1 [place] [address] Cabrera Yadav MD #2 [facility] [address] [place] [address] CYSTOSCOPY AND LITHOLAPAXY, PATIENT WILL NEED A PAUL LIFT Scheduled Procedures Name Priority Associated Diagnoses Date/Ti nc CYSTOSCOPY BLADDER STONE BLADDER STONES 06/02/2025 12:10 PM CDT documented as of this encounter Visit Diagnoses Diagnosis Allergic rhinitis, unspecified seasonality, unspecified trigger documented in this encounter Additional Health Concerns Infection Onset Date Last Indicated Resolved Time 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 06/05/2019 04/15/2021 7:28 AM CDT Assessment Noted Time PHQ-9 Depression Total Score: 0 10/24/19 11:16 AM SILVERWARE BUFFER documented as of this encounter Care Teams Relief Charge Nurse Relationship Specialty Start Date End Date Victoriano Reid MD PCP - General Family Medicine 06/19/19 06/29/24 Elva Olivares DO 2 [facility]. [address] [place] [address] PCP - General Family Medicine 07/01/24 Malissa Joe, RN [place] Nurse Showcase Maker 12/03/23 12/03/23 Malissa Joe RN [place] Nurse Showcase Maker 12/05/23 12/05/23 H[place] LSW [place] Avionics Systems Technician Showcase Maker 11/03/24 Cabrera Yadav MD #2 [facility] [address] [place] [address] Consulting Physician Urology 11/07/24 Viktoriya Arias LSW [place] Avionics Systems Technician Showcase Maker 04/22/25 documented as of this encounter
--- OUTSIDE RECORDS SUMMARY | 2025-05-09 18:51 | XMS_ITS | Encounter Summary ---
Author Organization [facility] Address [address] [place] [address] Phone Care Team Providers Care Camouflage Specialist Name Role Phone Victoriano Reid MD Primary Care Provider [phone] Malissa Joe RN Unavailable Unavailable Malissa Joe RN Unavailable Unavailable Elva Olivares DO Primary Care Provider [phone] [place] DOCUMENT PROCESSING SPECIALIST Unavailable UnaCabrera Nevarez MD Unavailable [phone] Viktroiya Arias DOCUMENT PROCESSING SPECIALIST Unavailable Unavailab le Encounter Details Date Type Department Care Team (Late st Contact Info) Description 11/29/2020 Lab Requisition [facility] [address] [place] [id number] Victoriano Reid MD [address] [place] [address] Personal history of urinary (tract) infections Social [...] Clinical Support [facility] #[address] [place] [address] NurseKen Urology 06/02/2025 12:10 PM CDT Hospital Encounter [facility] Periop [address] [place] [address] Cabrera Yadav MD #[address] [address] 06/02/2025 12:10 PM CDT - 06/02/2025 2:40 PM CDT Surgery [facility] Periop [address] [place] [address] Cabrera Yadav MD #[address] [address] CYSTOSCOPY AND LITHOLAPAXY, PATIENT WILL NEED A PAUL LIFT Scheduled Procedures Name Priority Associated Diagnoses Date/Ti me CYSTOSCOPY BLADDER STONE BLADDER STONES 06/02/2025 12:10 PM CDT documented as of this encounter Procedures Procedure Name Priority Date/Time Associated Diagnosis Comments URINALYSIS REFLEX IF INDICATED BY ABNORMAL RESULTS Routine 11/29/2020 12:45 PM FREIGHT RATE SPECIALIST Personal history of urinary (tract) infections CULTURE, URINE Routine 11/29/2020 12:45 PM FREIGHT RATE SPECIALIST Personal history of urinary (tract) infections documented in this encounter Results * CULTURE, URINE (11/29/2020 12:45 PM FREIGHT RATE SPECIALIST) CULTURE RESULTS STAPHYLOCOCCUS AUREUS 12/01/2020 4:47 PM FREIGHT RATE SPECIALIST [facility] Urine Non-Phlebotomy Collection / Unknown 11/29/2020 12:45 PM FREIGHT RATE SPECIALIST 11/29/2020 1:55 PM FREIGHT RATE SPECIALIST Narrative Organism Antibiotic Method Susceptibility Staphylococcus aureus [...] MICROBIOLOGY - GENERAL ORDERABLE S Final Result [facility] [address] [place] [address], * (ABNORMAL) URINALYSIS REFLEX IF INDICATED BY ABNORMAL RESULTS (11/29/2020 12:45 PM FREIGHT RATE SPECIALIST) SPECIFIC GRAVITY 1.010 1.003 - 1.030 11/29/2020 2:17 PM FREIGHT RATE SPECIALIST [facility] URINE PH 7.0 5.0 - 9.0 11/29/2020 2:17 PM FREIGHT RATE SPECIALIST [facility] WBC ESTERASE 500 /uL(A) Negative 11/29/2020 2:17 PM FREIGHT RATE SPECIALIST [facility] NITRITE Negative Negative 11/29/2020 2:17 PM FREIGHT RATE SPECIALIST [facility] PROTEIN, RANDOM URINE 30 mg/dL(A) Negative 11/29/2020 2:17 PM FREIGHT RATE SPECIALIST [facility] URINE GLUCOSE, QUAL Negative Negative 11/29/2020 2:17 PM FREIGHT RATE SPECIALIST [facility] URINE KETONES Negative Negative 11/29/2020 2:17 PM FREIGHT RATE SPECIALIST [facility] UROBILINOGEN Normal Normal mg/dL 11/29/2020 2:17 PM FREIGHT RATE SPECIALIST [facility] URINE BILIRUBIN Negative Negative 2:17 PM FREIGHT RATE SPECIALIST [facility] URINE BLOOD 250 /uL(A) Negative josefa/ul 11/29/2020 2:17 PM FREIGHT RATE SPECIALIST [facility] URINALYSIS COLOR Yellow 11/29/19 2:17 PM FREIGHT RATE SPECIALIST [facility] URINALYSIS CLARITY Very Cloudy 11/29/2020 2:17 PM FREIGHT RATE SPECIALIST [facility] WBC (Urine) 51-150(A) Negative, 0-5 /hpf 11/29/2020 2:17 PM FREIGHT RATE SPECIALIST [facility] URINE RBC'S 51-150(A) Negative, 0-2 /hpf 11/29/2020 2:17 PM FREIGHT RATE SPECIALIST [facility] EPITHELIAL CELLS Occasional /lpf 11/29/19 2:17 PM FREIGHT RATE SPECIALIST [facility] BACTERIA, URINE Many(A) Negative /hpf 11/29/2020 2:17 PM FREIGHT RATE SPECIALIST [facility] URINE MUCOUS Few 11/29/2020 2:17 PM FREIGHT RATE SPECIALIST [facility] Urine Non-Phlebotomy Collection / Unknown 11/29/2020 12:45 PM FREIGHT RATE SPECIALIST 11/29/2020 1:55 PM FREIGHT RATE SPECIALIST us Victoriano Reid MD URINE ORDERABLES Final Result [facility] [address] [facility] [place] [address] documented in this encounter Visit Diagnoses Diagnosis Personal history of urinary (tract) infections documented in this encounter Additional Health Concerns Infection Onset Date Last Indicated Resolved Time 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 06/05/2019 04/15/2021 7:28 AM CDT Assessment Noted Time PHQ-9 Depression Total Score: 0 10/24/19 20 11:16 AM FREIGHT RATE SPECIALIST documented as of this encounter Care Teams Camouflage Specialist Relationship Specialty Start Date End Date Victoriano Reid MD PCP - General Family Medicine 06/19/19 06/29/24 Elva Olivares DO 2 [facility] [address] [address] PCP - General Family Medicine 07/01/24 Malissa Joe, RN [place] Nurse Assistant Pressman 12/03/23 12/03/23 Malissa Joe, RN [place] Nurse Assistant Pressman 12/05/23 12/05/23 [place] LSW [place] Executive Chairman Assistant Pressman 11/03/24 Cabrera Yadav MD #[address] [address] Consulting Physician Urology 11/07/24 Viktoriya Arias, [place] Executive Chairman Assistant Pressman 04/22/25 documented as of this encounter
--- OUTSIDE RECORDS SUMMARY | 2025-05-09 18:51 | XMS_ITS | Encounter Summary ---
Author Organization [facility] Address [address] [place] [address] Phone Care Team Providers Care Tool Adjuster Name Role Phone Victoriano Reid MD Primary Care Provider [phone] Malissa Joe RN Unavailable Unavailable Malissa Joe RN Unavailable Unavailable Elva Olivares DO Primary Care Provider [phone] [place] INSURANCE RATER Unavailable Cabrera Smallwood MD Unavailable [phone] Viktoriya Arias INSURANCE RATER Unavailable Unavailab le Reason for Visit * Reason Comments Medication Refill Encounter Details Date Type Department Care Team (Late st Contact Info) Description 09/30/2020 Refill [facility] - Family Medicine [facility] [address] [place] [id number] Victoriano Reid MD [address] [place] [address] Medication Refill Social History Tobacco Use Types [...] on 08/06/2020 by Victoriano Reid MD RVISOR CURED MEATS documented in this encounter Plan of Treatment Upcoming Encounters Date Type Department Care Team (Latest Contact Info) Description 05/12/2025 1:30 PM CDT Clinical Support [facility] [address] [place] [address] Nurse Horace Urology 06/02/2025 12:10 PM CDT Hospital Encounter [facility] Periop [address] [place] [address] Cabrera Yadav MD #[address] [address] 06/02/2025 12:10 PM CDT - 06/02/2025 2:40 PM CDT [facility] [address] [place] [address] Cabrera Yadav MD #[address] [address] CYSTOSCOPY AND LITHOLAPAXY, PATIENT WILL NEED A PAUL LIFT Scheduled Procedures Name Priority Associated Diagnoses Date/Ti nh CYSTOSCOPY BLADDER STONE BLADDER STONES 06/02/2025 12:10 PM CDT documented as of this encounter Visit Diagnoses Diagnosis Vitamin D deficiency Unspecified vitamin D deficiency documented in this encounter Additional Health Concerns Infection Onset Date Last Indicated Resolved Time 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 06/05/2019 04/15/2021 7:28 AM CDT Assessment Noted Time PHQ-9 Depression Total Score: 0 10/24/19 11:16 AM SUPERVISOR CURED MEATS documented as of this encounter Care Teams Tool Adjuster Relationship Specialty Start Date End Date Victoriano Reid MD PCP - General Family Medicine 06/19/19 06/29/24 Elva Olivares DO 2 [facility] [address] [place] [address] PCP - General Family Medicine 07/01/24 Malissa Joe, RN [place] Nurse Systems Support Engineer 12/03/23 12/03/23 Malissa Joe RN [place] Nurse Systems Support Engineer 12/05/23 12/05/23 [place] LSW [place] Upholstery Covers Inspector Systems Support Engineer 11/03/24 Cabrera Yadav MD #2 [facility] [address] [place] [address] Consulting Physician Urology 11/07/24 Viktoriya Arias, INSURANCE RATER [place] Upholstery Covers Inspector Systems Support Engineer 04/22/25 documented as of this encounter
--- NOTE | 2025-05-09 18:54 | PC.NURSE ---
Report received from DONYA Tran. Assumed care of patient at this time.
[2025-05-09] MEDS: CEPHALEXIN 500 MG CAPSULE PO (19:00)
[2025-05-09 19:05] LABS: Add Urine Microscopic? YES; Appearance Urine Cloudy (Clear); Glucose Urine UA Negative (Negative); Leukocyte Esterase Ur 3+ LEU/UL (Negative); Nitrate Urine Positive (Negative); Non Pathogenic Casts 0-2; Specific Grav Ur 1.011 (1.001-1.035)
[2025-05-09 19:30] VITALS: BP 141/68; PULSE 65; RESP 17; O2SAT 97
--- NOTE | 2025-05-09 21:51 | PC.NURSE ---
Patient updated on ETA for EMS to transfer back home. Patient states she will attempt to make some phone calls to get home.
[2025-05-09 23:26] VITALS: BP 112/69; PULSE 65; RESP 17; TEMP 36.7; O2SAT 97
--- NOTE | 2025-05-09 23:59 | PC.NURSE ---
Patient calls this RN into room and states my daughters are going to attempt to bring my motor w/c and slide board and try to take me home. They are on the way now. This RN notified lead web application developer.
--- NOTE | 2025-05-10 00:45 | PC.NURSE ---
Patients daughters arrive with patients personal w/c. Patient was assisted into her personal w/c by this RN, oven technician, and her 2 daughters. Patient wheeled out of the ED with her daughters by her side and discharge papers in hand.
== END 2025-05-10 00:47 | disposition home or self-care (01) ==
PROVIDERS: Emergency Provider Emergency Medicine; PCP Student in an Organized Health Care Education/Training Program
DX: T83.090A Other mechanical complication of cystostomy catheter, initial encounter (principal); N39.0 Urinary tract infection, site not specified; I10 Essential (primary) hypertension; E11.9 Type 2 diabetes mellitus without complications; Z87.01 Personal history of pneumonia (recurrent); Y84.6 Urinary catheterization as the cause of abnormal reaction of the patient, or of later complication, without mention of misadventure at the time of the procedure
CPT/HCPCS: 51702; 51705; 81001; 87086; 99283; A9270